=== PATIENT | male | born 1945 | race Caucasian/White ===

== ENCOUNTER → 2018-08-09 10:23 | Outpatient (CLI) | payer MEDICARE, SELFPAY ==
[2018-08-07 10:02] VITALS: BMI 31.3
[2018-08-09 12:32] LABS: AST(SGOT) 23 U/L (15-37); Alanine Aminotransfer ALT/SGPT 22 U/L (16-61); Albumin, Serum 3.8 g/dL (3.2-5.0); Alkaline Phosphatase 95 U/L (45-117); Bilirubin, Direct 0.21 mg/dL (0.00-0.30); Cholesterol 183 mg/dL (200); Globulin 3.6 g/dL (2.2-4.2); High Density Lipoprotein 58 mg/dL; Protein, Total 7.4 g/dL (6.4-8.2); Triglycerides 109 mg/dL; Very Low Density Lipoprotein 22 mg/dL (5-40)
== END ==
PROVIDERS: Family Provider Family Medicine; PCP Family Medicine; Referring Provider Internal Medicine Cardiovascular Disease; Visit Provider Internal Medicine Cardiovascular Disease
DX: I10 Essential (primary) hypertension (principal); R06.09 Other forms of dyspnea
CPT/HCPCS: 36415; 80061; 80076

== ENCOUNTER → 2018-08-22 12:51 | Outpatient (CLI) | payer MEDICARE, SELFPAY ==
[2018-08-07 10:02] VITALS: BMI 31.3
--- NOTE | 2018-08-22 12:53 | ECHOCS_ITS ---
Reason For Study: PHTN Procedure This was a 2D Doppler, Color Flow transthoracic echocardiogram. The study was technically difficult. Contrast injection was performed. Exam performed in department. Left Ventricle Normal size and thickness. The estimated ejection fraction is 65 %. Stage 1 diastolic dysfunction. No regional wall motion abnormalities noted. Right Ventricle Moderately dilated right ventricle. Mild to moderate global right ventricular systolic dysfunction. Atria The left atrium is moderately enlarged. The right atrium is moderately enlarged. Normal atrial septum. Mitral Valve The mitral valve is structurally normal. No prolapse or stenosis seen. Trivial mitral valve insufficiency. Tricuspid Valve Normal tricuspid valve. Mild to moderate (1-2+) tricuspid valve insufficiency. Right ventricular systolic pressure estimated to be 48 mmHg. Moderate pulmonary hypertension. Aortic Valve Trisinus/trileaflet aortic valve. Mild diffuse aortic valve thickening. Mild (1+) aortic valve insufficiency. Pulmonic Valve Normal pulmonic valve. Mild (1+) pulmonic valve insufficiency. Great Vessels Normal aortic root. Normal arch. Normal inferior vena cava. Inferior vena cava collapse with sniff. Pericardium/Pleural No pericardial effusion. Medication 22 gauge I.V. with prn adaptor inserted into right arm. Diluted definity 8.ml given slow IV push to enhance endocardial definition. MMode/2D Measurements & Calculations LVIDd: 5.4 cm IVSd: 1.2 cm Ao root diam: 3.6 cm LVIDs: 3.3 cm LVPWd: 1.1 cm RVDd: 4.6 cm FS: 38.9 % LAV(MOD-bp): 78.0 ml LA A4 area: 22.5 cm2 LA dimension(2D): 4.1 cm LAV(MOD-bp) Indexed: 38.1 ml/m2 LAV(MOD-sp2): 84.4 ml LAV(MOD-sp4): 63.4 ml RA A4 area: 25.2 cm2 Time Measurements MV dec time: 0.30 sec Doppler Measurements & Calculations MV E max jose: 58.6 cm/sec Lat Peak E' Jose: 7.9 cm/sec Med Peak E' Jose: 4.3 cm/sec MV A max jose: 71.6 cm/sec E/E' lat: 7.4 E/E' med: 13.8 MV E/A: 0.82 Ao V2 max: 130.6 cm/sec AI max jose: 393.6 cm/sec LV V1 max: 85.9 cm/sec Ao max P.8 mmHg AI max P.0 mmHg LV V1 max P.0 mmHg AI dec slope: 200.0 cm/sec2 AI P1/2t: 576.6 msec PA V2 max: 92.2 cm/sec PI end-d jose: 123.5 cm/sec TR max jose: 319.7 cm/sec TR max P.9 mmHg Interpretation Summary The estimated ejection fraction is 65 %. Stage 1 diastolic dysfunction. Moderately dilated right ventricle. Mild to moderate global right ventricular systolic dysfunction. The left atrium is moderately enlarged. The right atrium is moderately enlarged. Trivial mitral valve insufficiency. Mild to moderate (1-2+) tricuspid valve insufficiency. Right ventricular systolic pressure estimated to be 48 mmHg. Moderate pulmonary hypertension. Mild (1+) aortic valve insufficiency. Compared to echo report dated 06/08/2017, LV function has remained the same, but RVSP has increased from 39 to 46 mm Hg. The study was technically difficult. Contrast injection was performed. Ordering Physician: Dave Cook Referring Physician: LUIS ARMANDO COELLO Performed By: Jimena Robertson, WENDY, RVT
== END ==
PROVIDERS: Family Provider Family Medicine; PCP Family Medicine; Referring Provider Internal Medicine Cardiovascular Disease; Visit Provider Internal Medicine Cardiovascular Disease
DX: I48.0 Paroxysmal atrial fibrillation (principal); I48.1 Persistent atrial fibrillation; I27.29 Other secondary pulmonary hypertension; I10 Essential (primary) hypertension; R06.00 Dyspnea, unspecified
CPT/HCPCS: 93306; Q9957; A4216; C8929

== ENCOUNTER → 2018-08-29 12:23 | Outpatient (CLI) | payer MEDICARE, SELFPAY ==
[2018-08-07 10:02] VITALS: BMI 31.3
--- NOTE | 2018-08-29 12:24 | STEWCON_ITS ---
Reason For Study: Dyspnea, Atrial Fibrillation Stress Results Protocol: Rubin Protocol/Switched To Dobutamine Maximum Predicted HR: 146 bpm Target HR: 124 bpm % Maximum Predicted HR: 84 % Heart Stage Duration Rate BP Comment (mm:ss) (bpm) Baseline 63 130/78No Chest Pain; Diluted Definity 8 ML Given Rubin Protocol Stage I 3:00 85 168/70No Chest Pain Rubin Protocol No Chest Pain; Fatigued, Leg Pain, Unable to Keep Up With Stage II 1:07 91 / Treadmill; Changed to Dobutamine DSE 10 MCG 3:17 60 125/57No Chest Pain DSE 20 MCG 3:00 77 131/53No Chest Pain DSE 30 MCG 3:00 92 110/56No Chest Pain DSE 40 MCG 1:51 123 114/50No Chest Pain; Atropine 0.25 MG IVP Recovery 75 122/68No Chest Pain Stress Duration: 15:15 mm:ss Maximum Stress HR: 123 bpm METS: 1 Baseline Echocardiogram Findings The estimated ejection fraction is 65 %. Stress Echo Wall motion Data Resting WM Intermediate WM Stress WM Resting Wall Motion Wall Motion Stress No regional wall motion No regional wall motion abnormalities noted. abnormalities noted. EKG Data The baseline ECG displays normal sinus rhythm. The patient was titrated from 10 mcg to a maximun of 30 mcg of dobutamine during the stress. The maximum heart rate attained was 146 beats per minute. This was 100% of maximum predicted heart rate. During dobutamine infusion, there were no ST or T wave changes noted to suggest ischemia. No clinical angina was noted. Interpretation Summary The estimated ejection fraction is 65 %. Normal, adequate, dobutamine echocardiogram. Negative for ischemia by EKG and echocardiographic criteria. Frequent PACs and rare PVCs during infusion which is a nonspecific finding. No anginal symptoms noted. Test terminated due to the attainment of target heart rate. Final LVEF is 75%. Decreased sensitivity due to poor echo windows requiring Definity enhancing agent. Patient initially was attempted on a treadmill but unfortunately was unable to achieve target heart rate, and was switched to dobutamine. No complications. The study was technically difficult. Contrast injection was performed. Ordering Physician: Dave Cook Referring Physician: Masoud Rosa Performed By: Delores Nair RDCS
== END ==
PROVIDERS: Family Provider Family Medicine; PCP Family Medicine; Referring Provider Internal Medicine Cardiovascular Disease; Visit Provider Internal Medicine Cardiovascular Disease
DX: R06.00 Dyspnea, unspecified (principal); R06.02 Shortness of breath
CPT/HCPCS: 93017; 93350; J7040; Q9957; A4216; C8928

== ENCOUNTER 2019-01-22 05:10 | Inpatient (IN) | payer MEDICARE, SELFPAY ==
[2018-08-07 10:02] VITALS: BMI 31.3
[2019-01-22 05:11] VITALS: BP 172/84; PULSE 56; RESP 16; TEMP 36.8; O2SAT 96; BMI 29.4
--- NOTE | 2019-01-22 05:20 | ED.DCSUM_ITS ---
History of Present Illness Chief Complaint: Complaint Informant: Patient Narrative: Patient stated that he is having urinary retention. His last urination was approximately 6 hours ago. He has to go but cannot. He thinks he has a blood clot in his urethra. He has had some very mild hematuria per patient over the last couple days. He called his urologist Dr. Prather who stated that he can see him in the office. At that time he was not having obstruction. Patient stated his symptoms currently are moderate due to the obstruction discomfort. Denies any history of UTIs. He does have a history of prostate cancer. They recently came back. They found this on his PSA. 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 (3) Cardiomyopathy in other diseases classified elsewhere Status: Chronic (4) Hypertension Status: Chronic (5) Other secondary pulmonary hypertension Status: Chronic (6) Paroxysmal atrial fibrillation Status: Chronic Comment: S/P cardioversion on 04/21/2016 (7) Persistent atrial fibrillation Status: Chronic Past Medical History - Allergies and Home Meds Allergies/Adverse Reactions: Allergies No Known Allergies Allergy (Verified 01/22/19 05:16) Primary Care Physician: Masoud Rosa MD [Primary Care Provider] - Prior records reviewed: Yes Past Medical History: - - Reviewed, see problem list Surgical History: - - meatl extraction from eye, hernia repair, colonoscopy w/polypectomy, cataract exraction with implant left eye, and teeth extraction, prostate radiation treatment. Lives: With Family Smoking Status: Never smoker Alcohol: None Drugs: None Review of Systems General: Denies: Chills, Fever, Sweats Eyes: Denies: Visual changes - bilaterally, Diplopia ENT: Denies: Rhinorrhea, Sore throat Cardiovascular: Denies: Chest pain, Palpitations Respiratory: Denies: Dyspnea, Cough, Dyspnea on exertion Gastrointestinal: Reports: Abdominal pain. Denies: Nausea, Vomiting, Diarrhea, Melena, Hematochezia Genitourinary: Reports: Hematuria. Denies: Dysuria, Frequency Musculoskeletal: Denies: Back pain, Extremity Pain Skin: Denies: Rash, Wounds Neurological: Denies: Headache, Weakness, Numbness Physical Exam Vital Signs/Narrative: Vital Signs Temp Pulse Resp BP Pulse Ox 01/22/19 05:11 98.2 F 56 L 16 172/84 H 96 General: Well nourished, Well developed, No Acute Distress Head: Normocephalic, Atraumatic Eyes: Perrl, EOMI ENT: Moist mucous membranes, No rhinorrhea Neck: Supple, Nontender Cardiovascular: Regular rate, Regular rhythm, No murmurs Respiratory: No distress, CTA bilaterally, Chest nontender Abdomen: Soft, Nontender, Nondistended, Normal bowel sounds Back: Nontender, Normal Inspection Extremities: Nontender, No edema Skin: Normal color, No rash Neurological: Alert, Oriented x3, Cranial nerves II-XII grossly intact, Normal Strength, Normal Sensation Psychological: Normal affect, Normal Mood Diagnostic/Tx/Re-eval - Medical Decision Making She is on aspirin and Xarelto. This is likely contributing to his hematuria. He has had this remotely. Somers catheter was placed. It was irrigated copiously. There were clots and blood. Patient continues to have bright red blood. He is asymptomatic currently now that the catheter was placed. Lab work shows no significant abnormalities. Hemoglobin normal. Urinalysis shows no infection. I suspect the patient is having bleeding from his bladder. He has a coagulopathy. We will hold his blood thinners. Discussed with hospitalist. The patient will need to be admitted and have a urology consult ED Disposition - Plan for ED Patient: Diagnosis: Bladder outflow obstruction, Hematuria Referrals: Masoud Rosa MD [Primary Care Provider] -
[2019-01-22 05:43] LABS: Bacteria 0 SEEN /hpf (None Seen); Mucous, Urine 0 SEEN /hpf (<or=2+); Squamous Epithelial Cells - UA 0 SEEN /hpf (0-5)
[2019-01-22 05:52] LABS: Color, Urine Red (Yellow); Glucose, Dipstick Normal (Normal); Ketone-Dipstick Negative (Negative); Leukocyte Esterase-Dipstick 25 /ul (Negative); Nitrite-Dipstick Negative (Negative); Occult Blood-Urine 250 /ul (Negative); Protein-Dipstick 500 mg/dl (Negative); Urine Bilirubin Dipstick Negative (Negative); Urine Clarity Turbid (Clear); Urine Urobilinogen 1 mg/dl (Normal); Urine pH 6.5 (5.0 - 8.0)
[2019-01-22 05:54] LABS: Red Blood Cells-Urine > 100 SEEN /hpf (0-5); White Blood Cells 10-25 SEEN /hpf (0-5)
[2019-01-22 06:01] LABS: Absolute Lymphocyte Count 0.88 X10^3/uL (0.83-4.51); Absolute Neutrophil Count 3.1 X10^3/uL (2.0-7.7); Basophil# 0.01 X10^3/uL; Basophil% 0.2 % (0-1); Eosinophil# 0.17 X10^3/uL; Eosinophils% 3.6 % (0-5); Hematocrit 40.5 % (40-54); Hemoglobin 14.1 g/dL (13.0-16.5); Lymphocyte # 0.88 X10^3/ul (4.0); Lymphocyte % 18.8 % (19-41); Mean Corp Hgb Conc 34.8 g/dL (32-36); Mean Corpuscular Hgb 30.5 pg (27.0-32.0); Mean Corpuscular Volume 87.5 fL (80-94); Mean Platelet Vol. 10.9 fl (6.2-12.0); Monocyte% 10.7 % (0-10); NRBC Flagged by Analyzer 0 % (0-5); Neutrophil # 3.09 X10^3/uL (2.7-7.7); Neutrophil % 66.3 % (47-70); Platelet Count 155 K/mm3 (150-450); RBC Distribution Width CV 13.6 % (11.6-14.6); RBC Distribution Width SD 43.4 fl (35.1-43.9); Red Blood Count 4.63 M/mm3 (4.6-6.2); White Blood Count 4.7 K/mm3 (4.4-11.0)
[2019-01-22 06:16] LABS: Anion Gap 8 (5-15); BUN 23 mg/dL (7-18); Chloride 104 mmol/L (98-107); Creatinine, Serum 1.35 mg/dL (0.70-1.30); EST Glomerular Filtration Rate 55 mL/min (>60); Est Glom Filt Rate - Afr Amer 66 mL/min (>60); Estimated Creatinine Clearance 46.44 ml/min; Glucose 100 mg/dL (74-106); Potassium 3.8 mmol/L (3.5-5.1); Sodium Level 141 mmol/L (136-145)
[2019-01-22 06:37] VITALS: BP 164/70; PULSE 84; RESP 18; TEMP 36.3; O2SAT 98
--- NOTE | 2019-01-22 07:07 | NURSING ---
DR LOCKE FOR DR CORBIN
--- NOTE | 2019-01-22 07:10 | NURSING ---
DR SHABAZZ PAGED DR GUERRERO CALLED BACK FOR DR CORBIN
[2019-01-22 07:18] VITALS: RESP 18
--- NOTE | 2019-01-22 07:24 | NURSING ---
DR SHABAZZ FOR DR CORBIN
--- NOTE | 2019-01-22 07:28 | NURSING ---
323 HARIKA HEMATURIA, URINARY RETENTION, COAGULATHY
--- NOTE | 2019-01-22 07:36 | NURSING ---
DR SHABAZZ IN ER
--- NOTE | 2019-01-22 07:40 | CT_ITS ---
STUDY: CT ABDOMEN AND PELVIS WITH AND WITHOUT CONTRAST REASON FOR EXAM: Male, 73 years old. Gross hematuria, history of prostate cancer RADIATION DOSAGE (If Supplied By Facility): CTDIvol = ( 20.21 ) mGy, DLP = ( 2550.39 ) mGycm TECHNIQUE: Transaxial images were obtained from the dome of the diaphragm to the symphysis pubis without oral contrast. 100 IV Isovue 300 was administered. Sagittal and coronal images were reconstructed. Individualized dose optimization techniques were used for this CT. COMPARISON: 07/13/2017 FINDINGS: Lung bases show underlying emphysema, no suspicious mass, nodule, or superimposed process.. The visualized portions of the heart are within normal limits. Normal liver. Normal gallbladder and extrahepatic biliary system. Normal spleen. Normal pancreas. Normal bilateral adrenal glands. No obstructive uropathy, there is a stable 3 cm right renal cyst. There is a small hiatal hernia. Normal small intestine. Retained stool noted throughout the colon, scattered colonic diverticulosis without CT evidence of acute diverticulitis. There is non-visualization of the appendix. Normal abdominal aorta. Normal inferior vena cava. Normal retroperitoneum. The bladder contains a Somers catheter, there is asymmetric wall thickening in the right bladder wall measuring approximately 2.23 x 1.16 cm, suspicious for neoplastic process. Additionally, there is hyperdense fluid within the dependent bladder suggesting hemorrhage. Further evaluation with cystoscopy is recommended. The asymmetric bladder wall thickening is best seen on axial image 98, and coronal recon image 55. There is a right-sided inguinal hernia containing adipose tissue. There are diffuse degenerative changes of the visualized lumbar spine, and pelvis with stable grade 1 spondylolisthesis at L5/S1. CT/CT Abd/Pelvis W/WO Contrast IMPRESSION: There is asymmetric thickening of the right bladder wall measuring 2.23 x 1.16 cm suspicious for neoplastic process. This has worsened since the previous study and is suspicious for neoplastic process. Cystoscopy recommended for further evaluation Hyperdense fluid noted within the dependent bladder suspicious for hemorrhage Small hiatal hernia Colonic diverticulosis. Stable 3 cm right renal cyst Degenerative bony changes Electronically Signed: Jens Jansen MD at 9:11 EDT , Service support ,
--- NOTE | 2019-01-22 07:46 | HP.PCM_ITS ---
Problem List (1) Hematuria Status: Acute Qualifiers: Hematuria type: gross Qualified Code(s): R31.0 - Gross hematuria History and Physical Date of Admission: 01/22/19 73-year-old male who underwent radiation therapy and hormone ablation therapy several years ago for prostate cancer. He now comes back because his PSA was elevated at 63 and we did a PET scan which demonstrated positive lymph node involvement with metastatic disease. We have started the patient on hormone deprivation therapy with Eligard and casodex and no add Xtandi, PSA has been very low. is PSA is now come back down a 3.8 and is doing fairly well. We talked about keeping bone strong with calcium and and vitamin D [id number] Currently presented to ER with gross hematuria with large clots on blood thinner which he stopped yesturday, no SOB, no flank pain no back pain source of bleeding is unclear. Will admit for heavy bleeding, Currently with 18 fr chavarria with clots, nurses to manually irrigate, NO CBI. 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 Tobacco Use Assessment Completed: Smoking cessation counseling was provided. Does not use smokeless tobacco. Does not drink anymore. Does not use drugs. Drinks 1 caffeinated drink per day. Has not had a blood transfusion. REVIEW OF SYSTEMS: Constitutional: Patient denies fever, chills, weight loss, and weight gain. Genitourinary: Patient denies frequent urination, urinary retention, get up at night to void, leakage of urine, painful urination, blood in the urine, frequent uti's, history of stones, difficulty starting stream, weak stream/scanty, and bedwetting. VITAL SIGNS: Weight 200 lb / 90.72 kg Height 68 in / 172.72 cm BP 132/74 mmHg BMI 30.4 kg/m? - MULTI-SYSTEM PHYSICAL EXAMINATION: Constitutional: Well-nourished. No physical deformities. Normally developed. Good grooming. Neck: Neck symmetrical, not swollen. Normal tracheal position. Respiratory: No labored breathing, no use of accessory muscles. Cardiovascular: Normal temperature, normal extremity pulses, no swelling, no varicosities. Lymphatic: No enlargement of neck, axillae, groin. Skin: No paleness, no jaundice, no cyanosis. No lesion, no ulcer, no rash. Neurologic / Psychiatric: Oriented to time, oriented to place, oriented to person. No depression, no anxiety, no agitation. Gastrointestinal: No mass, no tenderness, no rigidity, non obese abdomen. Eyes: Normal conjunctivae. Normal eyelids. Ears, Nose, Mouth, and Throat: Left ear no scars, no lesions, no masses. Right ear no scars, no lesions, no masses. Nose no scars, no lesions, no masses. Normal hearing. Normal lips. Musculoskeletal: Normal gait and station of head and neck. : Chavarria in place with gross clots. 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 Gross hematuia. PLAN: Admit to the hospital because of gross hematuria he has advanced prostate cancer with recurrent disease currently on Xtandi and hormone deprivation therapy he will undergo a CT scan with and without contrast to evaluate the source of the bleeding. Nursing staff will irrigate the catheter manually with normal saline to keep the clots from forming. Currently no CBI since his clots and not cleared out. We will see what the CAT scan shows probably plan to do a cystoscopy or intervention once we find out the source of the bleeding plan to do this probably Tuesday.
[2019-01-22 07:50] LABS: Bedside Glucose 105 mg/dL (70-110)
[2019-01-22 08:42] VITALS: BMI 28.8
[2019-01-22 09:07] VITALS: BP 130/66; PULSE 49; RESP 18; TEMP 36.7; O2SAT 97
[2019-01-22 09:17] VITALS: BMI 28.8
[2019-01-22] MEDS: 0.9% Normal Saline 1,000 ML 125 ML IV ×2 (09:34→17:42)
[2019-01-22] MEDS: 0.9% NaCl Peripheral Flush Adult/Peds IV (09:36)
[2019-01-22] MEDS: Atenolol 25 MG Tablet PO (10:26)
[2019-01-22] MEDS: Furosemide 40 MG Tablet PO (10:26)
[2019-01-22] MEDS: dilTIAZem CD 120 MG Capsule PO (10:26)
--- NOTE | 2019-01-22 12:21 | CASEMGMT ---
RN CM Assessment Introduced role of RN CM to patient and patient Snow at bedside.? Patient is alert, oriented and able?to participate in RN CM Assessment. ?Care providers, pharmacy, and demographics verified. Presentation: Urinary retention, Mild Hematuria. H/o UTI & Prostate CA on Oral Chemo, On Xarelto & ASA for Afib. Admit Dx: Gross Hematuria with clots, Bleeding Re-Admit: No Barriers/Issues: None PCP: Masoud Rosa Specialists: Cardio- Dr Cook, Uro- Dr Prather Preferred Pharmacy: [facility] Insurance: [employer] [facility] PPO Rx Benefit:?Yes ?LNOK: Snow Carlson LW/HPOA: No, Declines offered information Living Arrangements:?Lives with in a SS home, 2 steps to enter home. ADL?s: Independent with ambulation and ADLs Transportation: Patient used to drive, has not been able to more recently d/t ruptured blood vessel in eye and cannot see, has been transporting since this and will upon DC DME: None HHC: None SNF: None Goal: Home, does not think will have any needs upon DC. Denies issues/concerns/questions with DC. Aware CM remains available for any emerging needs. DC PLAN: Home with no anticipated needs identified at this time. JUDY Zhong
[2019-01-22 14:25] VITALS: BP 136/87; PULSE 52; RESP 18; TEMP 36.5; O2SAT 93
[2019-01-22] MEDS: ENZALUTAMIDE 40 MG CAPSULE 160 MG PO (16:28)
[2019-01-22] MEDS: BICALUTAMIDE 50 MG TABLET PO (16:35)
[2019-01-22] MEDS: FLUOROMETHOLONE 5 ML DROPS.SUSP EACH EYE ×2 (19:15→21:14)
[2019-01-22 21:19] VITALS: BP 134/69; PULSE 55; RESP 18; TEMP 37.2; O2SAT 96
[2019-01-23] MEDS: 0.9% Normal Saline 1,000 ML 125 ML IV ×2 (00:30→08:39)
[2019-01-23 02:03] VITALS: BP 127/64; PULSE 56; RESP 16; TEMP 37.1; O2SAT 95
[2019-01-23 06:03] LABS: Absolute Lymphocyte Count 0.75 X10^3/uL (0.83-4.51); Absolute Neutrophil Count 7.2 X10^3/uL (2.0-7.7); Basophil# 0.01 X10^3/uL; Basophil% 0.1 % (0-1); Eosinophil# 0.07 X10^3/uL; Eosinophils% 0.8 % (0-5); Hematocrit 38.1 % (40-54); Lymphocyte # 0.75 X10^3/ul (4.0); Lymphocyte % 8.5 % (19-41); Mean Corp Hgb Conc 34.1 g/dL (32-36); Mean Corpuscular Hgb 30.4 pg (27.0-32.0); Mean Platelet Vol. 10.8 fl (6.2-12.0); NRBC Flagged by Analyzer 0 % (0-5); Neutrophil % 81.1 % (47-70); Platelet Count 158 K/mm3 (150-450); RBC Distribution Width CV 13.5 % (11.6-14.6); RBC Distribution Width SD 44.2 fl (35.1-43.9); Red Blood Count 4.28 M/mm3 (4.6-6.2); White Blood Count 8.9 K/mm3 (4.4-11.0)
[2019-01-23 06:18] LABS: Anion Gap 7 (5-15); BUN 15 mg/dL (7-18); BUN/Creat Ratio 12.9 RATIO (10-20); Calcium,Total 8.4 mg/dL (8.5-10.1); Chloride 106 mmol/L (98-107); Creatinine, Serum 1.16 mg/dL (0.70-1.30); EST Glomerular Filtration Rate 65 mL/min (>60); Est Glom Filt Rate - Afr Amer 79 mL/min (>60); Estimated Creatinine Clearance 54.05 ml/min; Glucose 113 mg/dL (74-106); Potassium 3.7 mmol/L (3.5-5.1); Sodium Level 141 mmol/L (136-145)
--- NOTE | 2019-01-23 07:23 | EKG12_ITS ---
Test Reason : PRE OP Blood Pressure : / mmHG Vent. Rate : 058 BPM Atrial Rate : 058 BPM P-R Int : 158 ms QRS Dur : 090 ms QT Int : 450 ms P-R-T Axes : 036 -12 036 degrees QTc Int : 441 ms Sinus bradycardia Nonspecific ST abnormality Abnormal ECG When compared with ECG of 21-APR-2016 13:52, Premature atrial complexes are no longer Present Confirmed by KOREY HAYWARD, HERMELINDA ([id number]), video editor TAYLOR RENO ([id number]) on 01/26/2019 9:54:16 AM Referred By: Robert Prather Confirmed By:ELA NAIR MD
--- NOTE | 2019-01-23 07:36 | PN_ITS ---
Patient Problems: Active and Suspected Problems (Last Updated 08/07/18 @ 10:09 by Pennie Loving) Bladder outflow obstruction (Acute) Hematuria (Acute) Subjective: CT scan demonstrates the patient has a bladder mass with bleeding a lot of blood clots within the bladder today discussed the findings and CAT scan with the patient and his family plan is to take in the surgery tomorrow to remove the blood clots and resect the tumor that seen on CAT scans possible there are more tumors - Physical Exam General: Alert, Oriented x3, Cooperative HEENT: Atraumatic, PERRLA, EOMI, Normocephalic Neck: Supple, No JVD, Negative Carotid Bruits Lungs: Clear to auscultation, Normal air movement Cardiovascular: Regular rate, No murmurs Abdomen: Bowel Sounds Present, Soft, Non Tender Extremities: No edema, Capillary Refill Less than 3 Seconds Skin: No rashes, No breakdown Musculoskeletal: No Tenderness to Palpation of Joints or Extremities Neurological: Cranial nerves II-XII grossly intact Psych/Mental Status: Normal Affect, Appropriate Vital Signs Temp Pulse Resp BP Pulse Ox 98.7 F 56 L 16 127/64 H 95 01/23/19 02:03 01/23/19 02:03 01/23/19 02:03 01/23/19 02:03 01/23/19 02:03 Oxygen Delivery Method Room Air Weight: 86.296 kg Body Mass Index (BMI) 28.8 Finger Stick Blood Glucose 105 Intake and Output for Last 24 Hours 01/21/19 01/22/19 01/23/19 23:59 23:59 23:59 Intake Total 2178 / 4229 3381 / 3381 Output Total 3700 / 4600 1350 / 1350 Balance -1522 / -371 2030 / 203 Laboratory Tests Past 24 Hrs 01/23/19 01/23/19 05:35 05:35 WBC 8.9 RBC 4.28 L Hgb 13.0 Hct 38.1 L MCV 89.0 MCH 30.4 MCHC 34.1 RDW Std Deviation 44.2 H RDW Coeff of Manuela 13.5 Plt Count 158 MPV 10.8 Immature Gran % (Auto) 0.500 Neut % (Auto) 81.1 H Lymph % (Auto) 8.5 L [place] % (Auto) 9.0 Eos % (Auto) 0.8 Baso % (Auto) 0.1 Absolute Neuts (auto) 7.2 Absolute Lymphs (auto) 0.75 L Absolute Nucleated RBC 0.00 Nucleated RBC % 0 Sodium 141 Potassium 3.7 Chloride 106 Carbon Dioxide 28.0 Anion Gap 7 BUN 15 Creatinine 1.16 Estim Creat Clear Calc 54.05 Est GFR (MDRD) Af Amer 79 Est GFR (MDRD) Non-Af 65 BUN/Creatinine Ratio 12.9 Glucose 113 H Calcium 8.4 L POC Glucose 01/22/19 07:48 POC Glucose 105 Medical Necessity - Tobacco Use Smoking Status: Never smoker Assessment/Plan All Active Problems (Last Updated 08/07/18 @ 10:09 by Pennie Loving) Bladder outflow obstruction (Acute) Hematuria (Acute) Dyspnea on exertion (Acute) care home (current) use of anticoagulants (Acute) 73-year-old male with multiple medical problems presented to the hospital with bleeding from the bladder he is on blood thinner Xarelto want to hold this because of the bleeding tumor mass we will consult hospitalist to help assist with medical issues and questions with the patient's and the family. Plan to taken to surgery tomorrow for resection of these bladder mass removal of blood clots hopefully we can get him home by he will have to stay off blood thinners because of the bleeding from the tumor so he is off Xarelto I did explain to the family is a very small chance of a stroke 1 to 2% being off of Xarelto because of his history of atrial fibrillation will consult hospitalist.
--- NOTE | 2019-01-23 08:19 | PCM.PN.HOSP ---
Patient Problems: Active and Suspected Problems (Last Updated 08/07/18 @ 10:09 by Pennie Loving) Bladder outflow obstruction (Acute) Hematuria (Acute) Subjective: Consult for medical management: 73-year-old male with past medical history of metastatic prostate cancer, status post radiation and hormone ablation therapy, hypertension, paroxysmal atrial fibrillation, on Xarelto admitted to the ED on 01/22/19 with gross hematuria with large clots. We have been consulted for medical management. He is going for bladder mass resection tomorrow by urology. At the time of being seen patient denied any dizziness or palpitations or chest pain or shortness of breath. He has no recent cardiac related hospitalization. He denied any lower abdominal pain. He has a Chavarria catheter that has raj blood. CT scan of the abdomen and pelvis showed asymmetric wall thickening of the right, approximately 2.2 x 1.16 suspicious for neoplastic process. His last stress echo on 08/29/18 showed an EF of 65%, it was negative for ischemia by EKG and echocardiographic criteria. 2D echo done on showed EF 65%, stage I diastolic dysfunction, moderately dilated right ventricular, mild to moderate global right ventricular systolic function, left atrium was enlarged, right atrium moderately enlarged, moderate tricuspid valve insufficiency, moderate pulmonary hypertension. Vitals/I&O's: Vital Signs Temp Pulse Resp BP Pulse Ox 98.7 F 56 L 16 127/64 H 95 01/23/19 02:03 01/23/19 02:03 01/23/19 02:03 01/23/19 02:03 01/23/19 02:03 Oxygen Delivery Method Room Air Weight: 86.296 kg Body Mass Index (BMI) 28.8 Finger Stick Blood Glucose 105 Intake and Output for Last 24 Hours 01/21/19 01/22/19 01/23/19 23:59 23:59 23:59 Intake Total 2178 / 4229 3381 / 3381 Output Total 3700 / 4600 1350 / 1350 Balance -1522 / -371 2030 General: Alert, Oriented x3, Cooperative, No apparent distress HEENT: Atraumatic, PERRLA, EOMI, Normocephalic Oral: Moist Mucosa Neck: Supple Lungs: Clear to auscultation, Normal air movement Cardiovascular: Regular rate, Regular Rhythm, Normal S1, Normal S2, Murmur - 3/6 systolic murmur best along the left lower sternal border Abdomen: Bowel Sounds Present, Soft, Non Tender, Non-Distended, No Hepato-splenomegaly, - - Fully catheter in situ, gross hematuria Extremities: No edema Skin: No rashes, No breakdown Musculoskeletal: No Tenderness to Palpation of Joints or Extremities Lymphatic: No Cervical, Supraclavicular, or Inguinal Adenopathy Neurological: Cranial nerves II-XII grossly intact Psych/Mental Status: Normal Affect, Appropriate Laboratory Results 01/23/19 05:35: WBC 8.9, RBC 4.28 L, Hgb 13.0, Hct 38.1 L, MCV 89.0, MCH 30.4, MCHC 34.1, RDW Std Deviation 44.2 H, RDW Coeff of Manuela 13.5, Plt Count 158, MPV 10.8, Immature Gran % (Auto) 0.500, Neut % (Auto) 81.1 H, Lymph % (Auto) 8.5 L, [place] % (Auto) 9.0, Eos % (Auto) 0.8, Baso % (Auto) 0.1, Absolute Neuts (auto) 7.2, Absolute Lymphs (auto) 0.75 L, Absolute Nucleated RBC 0.00, Nucleated RBC % 0 01/23/19 05:35: Sodium 141, Potassium 3.7, Chloride 106, Carbon Dioxide 28.0, Anion Gap 7, BUN 15, Creatinine 1.16, Estim Creat Clear Calc 54.05, Est GFR (MDRD) Af Amer 79, Est GFR (MDRD) Non-Af 65, BUN/Creatinine Ratio 12.9, Glucose 113 H, Calcium 8.4 L Current Medications Acetaminophen (Tylenol) 650 mg PO Q6H PRN PRN PRN Reason: Mild Pain (1-3)/Temp > 100.7 F Al Hydroxide/Mg Hydroxide (Mylanta Ii) 30 ml PO Q6H PRN PRN PRN Reason: Gastric Burning Atenolol (Tenormin (Beta Dorothy)) 25 mg PO DAILY [facility] Last Admin: 01/22/19 10:26 Dose: 25 mg Documented by: Bicalutamide (Bicalutamide) 50 mg PO DAILY [facility] Last Admin: 01/22/19 16:35 Dose: 50 mg Documented by: Diltiazem HCl (Cardizem Cd) 120 mg PO DAILY [facility] Last Admin: 01/22/19 10:26 Dose: 120 mg Documented by: Docusate Sodium (Colace) 100 mg PO BID PRN PRN PRN Reason: Constipation Fluorometholone (Fluorometholone) 0 ml EACH EYE 4X/DAY [facility] Last Admin: 01/22/19 21:14 Dose: 5 ml Documented by: Furosemide (Lasix) 40 mg PO DAILY [facility] Last Admin: 01/22/19 10:26 Dose: 40 mg Documented by: Sodium Chloride () 1,000 mls @ 125 mls/hr IV .Q8H [facility] Last Admin: 01/23/19 00:30 Dose: 125 mls/hr Documented by: Ibuprofen (Motrin) 400 mg PO Q4H PRN PRN PRN Reason: Mild Pain (1-3)/Temp > 100.7 F Nutritional Formula (Lactose Free) (Ensure Enlive) 120 ml PO 4X/DAY [facility] Last Admin: 01/22/19 21:13 Dose: 120 ml Documented by: Ondansetron HCl (Zofran) 4 mg IV Q8H PRN PRN PRN Reason: NAUSEA/VOMITING Oxycodone HCl (Oxyir) 10 mg PO Q4H PRN PRN PRN Reason: Moderate Pain (4-6/10) Potassium Chloride (K-Dur) 20 meq PO DAILY [facility] Last Admin: 01/22/19 10:26 Dose: 20 meq Documented by: Sodium Chloride () 10 - 40 ml IV UD PRN PRN Reason: SALINE FLUSH Last Admin: 01/22/19 09:36 Dose: 10 ml Documented by: Zolpidem Tartrate (Ambien (Generic)) 5 mg PO QHS PRN PRN PRN Reason: INSOMNIA Medical Necessity - Tobacco Use Smoking Status: Never smoker Assessment/Plan All Active Problems (Last Updated 08/07/18 @ 10:09 by Pennie Loving) Bladder outflow obstruction (Acute) Hematuria (Acute) Dyspnea on exertion (Acute) 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 Gross hematuria secondary to bladder mass, h/o prostate CA, urology plans on cystoscopy with bladder mass resection, s/p chavarria catheter 2. Paroxysmal atrial fibrillation, in NSR, on atenolol and cardizem, off Xarelto, will continue off Xarelto as risk of bleeding outweighs risk of stroke 3. Hypertension, controlled, continue on atenolol and cardizem, continue to monitor 4. CKD stage 3, at his baseline 5. DVT PPx- SCDs Thank you for the consult, will follow patient with you Code Visit Inpatient E&M: 66629 Subs Hosp L2
[2019-01-23 08:26] VITALS: BP 132/68; PULSE 55; RESP 18; TEMP 36.8; O2SAT 93
[2019-01-23] MEDS: ENZALUTAMIDE 40 MG CAPSULE 160 MG PO (10:03)
[2019-01-23] MEDS: FLUOROMETHOLONE 5 ML DROPS.SUSP EACH EYE ×4 (10:03→22:35)
[2019-01-23] MEDS: BICALUTAMIDE 50 MG TABLET PO (10:04)
[2019-01-23] MEDS: Atenolol 25 MG Tablet PO (10:07)
[2019-01-23] MEDS: Furosemide 40 MG Tablet PO (10:07)
[2019-01-23] MEDS: dilTIAZem CD 120 MG Capsule PO (10:07)
[2019-01-23 13:22] VITALS: BP 120/55; PULSE 54; RESP 18; TEMP 36.7; O2SAT 95
[2019-01-23 20:09] VITALS: BP 112/53; PULSE 56; RESP 16; TEMP 37.1; O2SAT 94
[2019-01-23] MEDS: 0.9% Normal Saline 1,000 ML 75 ML IV (20:12)
[2019-01-24] VITALS (11 sets, daily range): BP systolic 111–156; BP diastolic 60–92; PULSE 50–65; RESP 16–18; TEMP 36.4–37.4; O2SAT 92–98; BMI 28.8
--- NOTE | 2019-01-24 07:04 | PCM.PROGNOTE ---
Patient Problems: Active and Suspected Problems (Last Updated 08/07/18 @ 10:09 by Pennie Loving) Bladder outflow obstruction (Acute) Hematuria (Acute) Subjective: 73-year-old male admitted for gross hematuria bleeding continues. Today we plan to taken to surgery and CAT scans found to have a bladder mass most likely the source of the bleeding. Otherwise his clinic clinically stable - Physical Exam General: Alert, Oriented x3, Cooperative HEENT: Atraumatic, PERRLA, EOMI, Normocephalic Neck: Supple, No JVD, Negative Carotid Bruits Lungs: Clear to auscultation, Normal air movement Cardiovascular: Regular rate, No murmurs Abdomen: Bowel Sounds Present, Soft, Non Tender Extremities: No edema, Capillary Refill Less than 3 Seconds Skin: No rashes, No breakdown Musculoskeletal: No Tenderness to Palpation of Joints or Extremities Neurological: Cranial nerves II-XII grossly intact Psych/Mental Status: Normal Affect, Appropriate Vital Signs Temp Pulse Resp BP Pulse Ox 98.4 F 54 L 18 137/68 H 94 01/24/19 02:18 01/24/19 02:18 01/24/19 02:18 01/24/19 02:18 01/24/19 02:18 Oxygen Delivery Method Room Air Weight: 86.296 kg Body Mass Index (BMI) 28.8 Finger Stick Blood Glucose 105 Intake and Output for Last 24 Hours 01/22/19 01/23/19 01/24/19 23:59 23:59 23:59 Intake Total 2178 / 4229 6196 / 6196 583 / 583 Output Total 3700 / 4600 4700 / 4700 450 / 450 Balance -1522 / -371 1496 / 1496 133 / 133 Medical Necessity - Tobacco Use Smoking Status: Never smoker Assessment/Plan All Active Problems (Last Updated 08/07/18 @ 10:09 by Pennie Loving) Bladder outflow obstruction (Acute) Hematuria (Acute) Dyspnea on exertion (Acute) [facility] (current) use of anticoagulants (Acute) N.p.o. for surgery for today for resection of bladder
[2019-01-24] MEDS: FLUOROMETHOLONE 5 ML DROPS.SUSP EACH EYE ×4 (08:00→21:52)
[2019-01-24] MEDS: 0.9% Normal Saline 1,000 ML 75 ML IV ×2 (08:53→19:57)
--- NOTE | 2019-01-24 09:12 | PN_ITS ---
Patient Problems: Active and Suspected Problems (Last Updated 08/07/18 @ 10:09 by Pennie Loving) Bladder outflow obstruction (Acute) Hematuria (Acute) Subjective: Patient was seen and examined. He denies dizziness, palpitations, chest pain, SOB. He is going for surgery today for bladder resection. Objective: Physical exam: Vitals/I&O's: Vital Signs Temp Pulse Resp BP Pulse Ox 97.5 F L 50 L 16 129/63 H 95 01/24/19 08:15 01/24/19 08:15 01/24/19 08:15 01/24/19 08:15 01/24/19 08:15 Oxygen Delivery Method Room Air Weight: 86.296 kg Body Mass Index (BMI) 28.8 Finger Stick Blood Glucose 105 Intake and Output for Last 24 Hours 01/22/19 01/23/19 01/24/19 23:59 23:59 23:59 Intake Total 2178 / 4229 6196 / 6196 583 / 583 Output Total 3700 / 4600 4700 / 4700 450 / 450 Balance -1522 / -371 1496 / 1496 133 / 133 General: Alert, Oriented x3, Cooperative, No apparent distress HEENT: Atraumatic, PERRLA, EOMI, Normocephalic Neck: Supple Lungs: Clear to auscultation, Normal air movement Cardiovascular: Regular rate, Regular Rhythm, Normal S1, Normal S2, No murmurs Abdomen: Bowel Sounds Present, Soft, Non Tender, Non-Distended, No Hepato- splenomegaly, - - chavarria catheter has gross hematuria Extremities: No edema Skin: No rashes Musculoskeletal: No Tenderness to Palpation of Joints or Extremities Lymphatic: No Cervical, Supraclavicular, or Inguinal Adenopathy Neurological: Cranial nerves II-XII grossly intact Psych/Mental Status: Normal Affect, Appropriate Current Medications Acetaminophen (Tylenol) 650 mg PO Q6H PRN PRN PRN Reason: Mild Pain (1-3)/Temp > 100.7 F Al Hydroxide/Mg Hydroxide (Mylanta Ii) 30 ml PO Q6H PRN PRN PRN Reason: Gastric Burning Atenolol (Tenormin (Beta Dorothy)) 25 mg PO DAILY [facility] Last Admin: 01/23/19 10:07 Dose: 25 mg Documented by: Bicalutamide (Bicalutamide) 50 mg PO DAILY [facility] Last Admin: 01/23/19 10:04 Dose: 50 mg Documented by: Diltiazem HCl (Cardizem Cd) 120 mg PO DAILY [facility] Last Admin: 01/23/19 10:07 Dose: 120 mg Documented by: Docusate Sodium (Colace) 100 mg PO BID PRN PRN PRN Reason: Constipation Fluorometholone (Fluorometholone) 0 ml EACH EYE 4X/DAY [facility] Last Admin: 01/23/19 22:35 Dose: 5 ml Documented by: Furosemide (Lasix) 40 mg PO DAILY [facility] Last Admin: 01/23/19 10:07 Dose: 40 mg Documented by: Sodium Chloride () 1,000 mls @ 75 mls/hr IV .[id number] [facility] Last Admin: 01/24/19 08:53 Dose: 75 mls/hr Documented by: Ibuprofen (Motrin) 400 mg PO Q4H PRN PRN PRN Reason: Mild Pain (1-3)/Temp > 100.7 F Nutritional Formula (Lactose Free) (Ensure Enlive) 120 ml PO 4X/DAY [facility] Last Admin: 01/24/19 07:34 Dose: Not Given Documented by: Ondansetron HCl (Zofran) 4 mg IV Q8H PRN PRN PRN Reason: NAUSEA/VOMITING Oxycodone HCl (Oxyir) 10 mg PO Q4H PRN PRN PRN Reason: Moderate Pain (4-6/10) Potassium Chloride (K-Dur) 20 meq PO DAILY [facility] Last Admin: 01/23/19 10:07 Dose: 20 meq Documented by: Sodium Chloride () 10 - 40 ml IV UD PRN PRN Reason: SALINE FLUSH Last Admin: 01/22/19 09:36 Dose: 10 ml Documented by: Zolpidem Tartrate (Ambien (Generic)) 5 mg PO QHS PRN PRN PRN Reason: INSOMNIA Medical Necessity - Tobacco Use Smoking Status: Never smoker Assessment/Plan All Active Problems (Last Updated 08/07/18 @ 10:09 by Pennie Loving) Bladder outflow obstruction (Acute) Hematuria (Acute) Dyspnea on exertion (Acute) 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 Gross hematuria secondary to bladder mass, h/o prostate CA, urology plans on cystoscopy with bladder mass resection, s/p chavarria catheter Patient is at low-moderate risk for planned procedure. No active cardiac issues. 2. Paroxysmal atrial fibrillation, in NSR, on atenolol and cardizem, off Xarelto, Continue off Xarelto as risk of bleeding outweighs risk of stroke 3. Hypertension, controlled, continue on atenolol and cardizem, continue to monitor 4. CKD stage 3, at his baseline 5. DVT PPx- SCDs Code Visit Inpatient E&M: 74498 Subs Hosp L2
[2019-01-24 09:58] LABS: Absolute Lymphocyte Count 0.94 X10^3/uL (0.83-4.51); Absolute Neutrophil Count 6.9 X10^3/uL (2.0-7.7); Basophil# 0.01 X10^3/uL; Basophil% 0.1 % (0-1); Eosinophil# 0.25 X10^3/uL; Eosinophils% 2.8 % (0-5); Hematocrit 35.3 % (40-54); Hemoglobin 12.1 g/dL (13.0-16.5); Lymphocyte # 0.94 X10^3/ul (4.0); Lymphocyte % 10.6 % (19-41); Mean Corp Hgb Conc 34.3 g/dL (32-36); Mean Corpuscular Hgb 30.9 pg (27.0-32.0); Mean Corpuscular Volume 90.3 fL (80-94); Mean Platelet Vol. 10.9 fl (6.2-12.0); Monocyte# 0.66 X10^3/uL; Monocyte% 7.5 % (0-10); NRBC Flagged by Analyzer 0 % (0-5); Neutrophil # 6.91 X10^3/uL (2.7-7.7); Neutrophil % 78.2 % (47-70); Platelet Count 157 K/mm3 (150-450); RBC Distribution Width CV 13.8 % (11.6-14.6); RBC Distribution Width SD 45.8 fl (35.1-43.9); Red Blood Count 3.91 M/mm3 (4.6-6.2); White Blood Count 8.8 K/mm3 (4.4-11.0)
[2019-01-24 10:10] LABS: Anion Gap 4 (5-15); BUN 14 mg/dL (7-18); BUN/Creat Ratio 13.6 RATIO (10-20); Calcium,Total 8.4 mg/dL (8.5-10.1); Chloride 108 mmol/L (98-107); Creatinine, Serum 1.03 mg/dL (0.70-1.30); EST Glomerular Filtration Rate 75 mL/min (>60); Est Glom Filt Rate - Afr Amer 91 mL/min (>60); Estimated Creatinine Clearance 60.87 ml/min; Glucose 92 mg/dL (74-106); Potassium 3.9 mmol/L (3.5-5.1); Sodium Level 141 mmol/L (136-145)
--- NOTE | 2019-01-24 13:56 | NURSING ---
Patient complaining of pain that he associates to previous experiences with clotting off of his urinary catheter. Upon observation urine is dark red with an apparent clot near the junction of the catheter and the external tubing. Little urine appears to be draining at this time. Catheter flushed with 40cc of sterile normal saline. Patient reported relief of some pain following flush. Urine began to backflush into the catheter tip syringe being used. The syringe was disposed off and the catheter reconnected ensuring not to contaminate the catheter connection points. Dark red urine began draining into the catheter collection bag. Diann SMITH in room at this point to prepare patient for surgery
[2019-01-24] MEDS: Atenolol 25 MG Tablet PO (14:00)
[2019-01-24] MEDS: dilTIAZem CD 120 MG Capsule PO (14:01)
--- NOTE | 2019-01-24 14:28 | NURSING ---
Pt taken from floor and report called to Lola in AC at this time
[2019-01-24] MEDS: Cefazolin 1 GM/50 ML BAG IV (15:32)
--- NOTE | 2019-01-24 16:04 | OP.PCM_ITS ---
Problem List (1) Hematuria Status: Acute Qualifiers: Hematuria type: gross Qualified Code(s): R31.0 - Gross hematuria Report of Operation Date of Procedure: 01/24/19 Pre-Operative Diagnosis: Gross hematuria bladder mass seen on CAT scan Post-Operative Diagnosis: The same, radiation cystitis Surgery/Procedure Performed:: Cystoscopy evacuation of blood clots cauterization of bleeding, transurethral resection of small bladder masses. Description of Surgical Findings:: 73-year-old male with a history of prostate cancer being treated with hormone deprivation therapy also had radiation therapy in the past he has recurrent disease currently his disease is controlled with hormone manipulation presented to the emergency room with gross hematuria is also on the blood thinner we stopped his blood thinner continue with irrigation bleeding is continued with a CAT scan demonstrated possible bladder mass multiple blood clots with the bladder so today when taken to surgery to evacuate the blood clots and cauterize bleeding resect any masses that are seen. 73-year-old male taken back to the operative room at the smooth induction of general anesthesia he is placed in dorsolithotomy position, the penis and testicles are prepped and draped in usual sterile fashion. First went into the bladder the 24 [place] noncontinuous flow resectoscope the entire length urethra is normal prostate was nonobstructive had a high riding bladder neck once inside the bladder there was a significant amount of blood clots within the bladder these were evacuated out using the [employer] evacuator once we evacuated out the blood clots that he could see a lot of redness and erythema throughout the posterior wall the bladder these were all resected and then all the tissue was sent off but appeared to be more radiation cystitis just had a lot of easy bleeding from the bladder neck on the right side and the left side all this it was cauterized Cauterized in the bladder neck area in the right left side posterior bladder and finally was able to get the bleeding to stop after cauterizing of the bleeding and bleeding vessels from radiation cystitis and resected the inflamed red masses in the back of bladder which I think is just inflammation the patient's we put a catheter the patient underwent continuous bladder irrigation and his anesthetic was reversed plan is to keep in the hospital the bleeding stops he may want to go home with a catheter and then I will have him follow-up next week today he was anesthesia is currently being reversed and I will continue bladder irrigation until the bleeding stopped but the plan is hopefully with the bleeding stops we will get him home in a few days with a catheter. Type of Anesthesia:: General Drains: 22fr [address] way
[2019-01-25 03:59] VITALS: BP 114/53; PULSE 59; RESP 18; TEMP 37.1; O2SAT 93
[2019-01-25 05:44] LABS: Absolute Lymphocyte Count 0.69 X10^3/uL (0.83-4.51); Absolute Neutrophil Count 8.8 X10^3/uL (2.0-7.7); Basophil# 0.03 X10^3/uL; Basophil% 0.3 % (0-1); Eosinophils% 1.9 % (0-5); Hematocrit 34.1 % (40-54); Hemoglobin 11.7 g/dL (13.0-16.5); Lymphocyte # 0.69 X10^3/ul (4.0); Lymphocyte % 6.4 % (19-41); Mean Corp Hgb Conc 34.3 g/dL (32-36); Mean Corpuscular Hgb 31.1 pg (27.0-32.0); Mean Corpuscular Volume 90.7 fL (80-94); Mean Platelet Vol. 10.7 fl (6.2-12.0); Monocyte# 0.92 X10^3/uL; Monocyte% 8.6 % (0-10); NRBC Flagged by Analyzer 0 % (0-5); Neutrophil # 8.81 X10^3/uL (2.7-7.7); Neutrophil % 81.9 % (47-70); Platelet Count 158 K/mm3 (150-450); RBC Distribution Width CV 13.7 % (11.6-14.6); RBC Distribution Width SD 45.7 fl (35.1-43.9); Red Blood Count 3.76 M/mm3 (4.6-6.2); White Blood Count 10.8 K/mm3 (4.4-11.0)
[2019-01-25 05:58] LABS: Anion Gap 7 (5-15); BUN 14 mg/dL (7-18); BUN/Creat Ratio 14.5 RATIO (10-20); Calcium,Total 8.3 mg/dL (8.5-10.1); Chloride 107 mmol/L (98-107); Creatinine, Serum 0.97 mg/dL (0.70-1.30); EST Glomerular Filtration Rate 81 mL/min (>60); Est Glom Filt Rate - Afr Amer 97 mL/min (>60); Estimated Creatinine Clearance 64.64 ml/min; Glucose 128 mg/dL (74-106); Potassium 3.8 mmol/L (3.5-5.1); Sodium Level 141 mmol/L (136-145)
[2019-01-25] MEDS: Acetaminophen 325 MG Tablet 650 MG PO (07:20)
--- NOTE | 2019-01-25 07:41 | PCM.PROGNOTE ---
Patient Problems: Active and Suspected Problems (Last Updated 08/07/18 @ 10:09 by Pennie Loving) Bladder outflow obstruction (Acute) Hematuria (Acute) Subjective: no more bleeding stop CBI - Physical Exam General: Alert, Oriented x3, Cooperative HEENT: Atraumatic, PERRLA, EOMI, Normocephalic Neck: Supple, No JVD, Negative Carotid Bruits Lungs: Clear to auscultation, Normal air movement Cardiovascular: Regular rate, No murmurs Abdomen: Bowel Sounds Present, Soft, Non Tender Extremities: No edema, Capillary Refill Less than 3 Seconds Skin: No rashes, No breakdown Musculoskeletal: No Tenderness to Palpation of Joints or Extremities Neurological: Cranial nerves II-XII grossly intact Psych/Mental Status: Normal Affect, Appropriate Vital Signs Temp Pulse Resp BP Pulse Ox 98.7 F 59 L 18 114/53 L 93 01/25/19 03:59 01/25/19 03:59 01/25/19 03:59 01/25/19 03:59 01/25/19 03:59 Oxygen Flow Rate (L/min) 2 Oxygen Delivery Method Room Air Weight: 86.2 kg Body Mass Index (BMI) 28.8 Finger Stick Blood Glucose 105 Intake and Output for Last 24 Hours 01/23/19 01/24/19 01/25/19 23:59 23:59 23:59 Intake Total 6196 / 6196 2185 / 2852 1156 / 1156 Output Total 4700 / 4700 5450 / 5450 Balance 1496 / 1496 -3265 / -2598 1156 / 1156 Laboratory Tests Past 24 Hrs 01/24/19 01/24/19 01/25/19 09:35 09:35 05:00 WBC 8.8 RBC 3.91 L Hgb 12.1 L Hct 35.3 L MCV 90.3 MCH 30.9 MCHC 34.3 RDW Std Deviation 45.8 H RDW Coeff of Manuela 13.8 Plt Count 157 MPV 10.9 Immature Gran % (Auto) 0.800 Neut % (Auto) 78.2 H Lymph % (Auto) 10.6 L [place] % (Auto) 7.5 Eos % (Auto) 2.8 Baso % (Auto) 0.1 Absolute Neuts (auto) 6.9 Absolute Lymphs (auto) 0.94 Absolute Nucleated RBC 0.00 Nucleated RBC % 0 Sodium 141 141 Potassium 3.9 3.8 Chloride 108 H 107 Carbon Dioxide 29.0 27.0 Anion Gap 4 L 7 BUN 14 14 Creatinine 1.03 0.97 Estim Creat Clear Calc 60.87 64.64 Est GFR (MDRD) Af Amer 91 97 Est GFR (MDRD) Non-Af 75 81 BUN/Creatinine Ratio 13.6 14.5 Glucose 92 128 H Calcium 8.4 L 8.3 L 01/25/19 05:00 WBC 10.8 RBC 3.76 L Hgb 11.7 L Hct 34.1 L MCV 90.7 MCH 31.1 MCHC 34.3 RDW Std Deviation 45.7 H RDW Coeff of Manuela 13.7 Plt Count 158 MPV 10.7 Immature Gran % (Auto) 0.900 Neut % (Auto) 81.9 H Lymph % (Auto) 6.4 L [place] % (Auto) 8.6 Eos % (Auto) 1.9 Baso % (Auto) 0.3 Absolute Neuts (auto) 8.8 H Absolute Lymphs (auto) 0.69 L Absolute Nucleated RBC 0.00 Nucleated RBC % 0 Sodium Potassium Chloride Carbon Dioxide Anion Gap BUN Creatinine Estim Creat Clear Calc Est GFR (MDRD) Af Amer Est GFR (MDRD) Non-Af BUN/Creatinine Ratio Glucose Calcium Medical Necessity - Tobacco Use Smoking Status: Never smoker Assessment/Plan All Active Problems (Last Updated 08/07/18 @ 10:09 by Pennie Loving) Bladder outflow obstruction (Acute) Hematuria (Acute) Dyspnea on exertion (Acute) 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
--- NOTE | 2019-01-25 07:42 | PCM.PN.HOSP ---
Patient Problems: Active and Suspected Problems (Last Updated 08/07/18 @ 10:09 by Pennie Loving) Bladder outflow obstruction (Acute) Hematuria (Acute) Subjective: Patient was seen and examined. He underwent cystoscopy which showed inflammation and lots of blood clots. He complains of lower abdominal pain, described as bladder spasms, denies any chest pain or dizziness or shortness of breath. Objective: Physical exam: General: Alert, Oriented x3, Cooperative, No apparent distress HEENT: Atraumatic, PERRLA, EOMI, Normocephalic Neck: Supple Lungs: Clear to auscultation, Normal air movement Cardiovascular: Regular rate, Regular Rhythm, Normal S1, Normal S2, No murmurs Abdomen: Bowel Sounds Present, Soft, Non Tender, Non-Distended, No Hepato-splenomegaly, - - chavarria catheter has yellow urine Extremities: No edema Skin: No rashes Musculoskeletal: No Tenderness to Palpation of Joints or Extremities Lymphatic: No Cervical, Supraclavicular, or Inguinal Adenopathy Neurological: Cranial nerves II-XII grossly intact Psych/Mental Status: Normal Affect, Appropriate Vitals/I&O's: Vital Signs Temp Pulse Resp BP Pulse Ox 98.7 F 59 L 18 114/53 L 93 01/25/19 03:59 01/25/19 03:59 01/25/19 03:59 01/25/19 03:59 01/25/19 03:59 Oxygen Flow Rate (L/min) 2 Oxygen Delivery Method Room Air Weight: 86.2 kg Body Mass Index (BMI) 28.8 Finger Stick Blood Glucose 105 Intake and Output for Last 24 Hours 01/23/19 01/24/19 01/25/19 23:59 23:59 23:59 Intake Total 6196 / 6196 2185 / 2852 1156 / 1156 Output Total 4700 / 4700 5450 / 5450 Balance 1496 / 1496 -3265 / -2598 1156 / 1156 Laboratory Results 01/24/19 09:35: Sodium 141, Potassium 3.9, Chloride 108 H, Carbon Dioxide 29.0, Anion Gap 4 L, BUN 14, Creatinine 1.03, Estim Creat Clear Calc 60.87, Est GFR (MDRD) Af Amer 91, Est GFR (MDRD) Non-Af 75, BUN/Creatinine Ratio 13.6, Glucose 92, Calcium 8.4 L 01/24/19 09:35: WBC 8.8, RBC 3.91 L, Hgb 12.1 L, Hct 35.3 L, MCV 90.3, MCH 30.9, MCHC 34.3, RDW Std Deviation 45.8 H, RDW Coeff of Manuela 13.8, Plt Count 157, MPV 10.9, Immature Gran % (Auto) 0.800, Neut % (Auto) 78.2 H, Lymph % (Auto) 10.6 L, Dillingham % (Auto) 7.5, Eos % (Auto) 2.8, Baso % (Auto) 0.1, Absolute Neuts (auto) 6.9, Absolute Lymphs (auto) 0.94, Absolute Nucleated RBC 0.00, Nucleated RBC % 0 01/25/19 05:00: Sodium 141, Potassium 3.8, Chloride 107, Carbon Dioxide 27.0, Anion Gap 7, BUN 14, Creatinine 0.97, Estim Creat Clear Calc 64.64, Est GFR (MDRD) Af Amer 97, Est GFR (MDRD) Non-Af 81, BUN/Creatinine Ratio 14.5, Glucose 128 H, Calcium 8.3 L 01/25/19 05:00: WBC 10.8, RBC 3.76 L, Hgb 11.7 L, Hct 34.1 L, MCV 90.7, MCH 31.1, MCHC 34.3, RDW Std Deviation 45.7 H, RDW Coeff of Manuela 13.7, Plt Count 158, MPV 10.7, Immature Gran % (Auto) 0.900, Neut % (Auto) 81.9 H, Lymph % (Auto) 6.4 L, Dillingham % (Auto) 8.6, Eos % (Auto) 1.9, Baso % (Auto) 0.3, Absolute Neuts (auto) 8.8 H, Absolute Lymphs (auto) 0.69 L, Absolute Nucleated RBC 0.00, Nucleated RBC % 0 Current Medications Acetaminophen (Tylenol) 650 mg PO Q6H PRN PRN PRN Reason: Mild Pain (1-3)/Temp > 100.7 F Last Admin: 01/25/19 07:20 Dose: 650 mg Documented by: Al Hydroxide/Mg Hydroxide (Mylanta Ii) 30 ml PO Q6H PRN PRN PRN Reason: Gastric Burning Atenolol (Tenormin (Beta Dorothy)) 25 mg PO DAILY [facility] Last Admin: 01/24/19 14:00 Dose: 25 mg Documented by: Bicalutamide (Bicalutamide) 50 mg PO DAILY [facility] Last Admin: 01/24/19 18:30 Dose: Not Given Documented by: Diltiazem HCl (Cardizem Cd) 120 mg PO DAILY [facility] Last Admin: 01/24/19 14:01 Dose: 120 mg Documented by: Docusate Sodium (Colace) 100 mg PO BID PRN PRN PRN Reason: Constipation Fluorometholone (Fluorometholone) 0 ml EACH EYE 4X/DAY [facility] Last Admin: 01/24/19 21:52 Dose: 5 ml Documented by: Furosemide (Lasix) 40 mg PO DAILY [facility] Last Admin: 01/24/19 18:31 Dose: Not Given Documented by: Sodium Chloride () 1,000 mls @ 75 mls/hr IV .[id number] [facility] Last Admin: 01/24/19 19:57 Dose: 75 mls/hr Documented by: Ibuprofen (Motrin) 400 mg PO Q4H PRN PRN PRN Reason: Mild Pain (1-3)/Temp > 100.7 F Nutritional Formula (Lactose Free) (Ensure Enlive) 120 ml PO 4X/DAY [facility] Last Admin: 01/24/19 21:48 Dose: 120 ml Documented by: Ondansetron HCl (Zofran) 4 mg IV Q8H PRN PRN PRN Reason: NAUSEA/VOMITING Oxycodone HCl (Oxyir) 10 mg PO Q4H PRN PRN PRN Reason: Moderate Pain (4-6/10) Potassium Chloride (K-Dur) 20 meq PO DAILY [facility] Last Admin: 01/24/19 18:30 Dose: Not Given Documented by: Sodium Chloride () 10 - 40 ml IV UD PRN PRN Reason: SALINE FLUSH Last Admin: 01/22/19 09:36 Dose: 10 ml Documented by: Zolpidem Tartrate (Ambien (Generic)) 5 mg PO QHS PRN PRN PRN Reason: INSOMNIA Medical Necessity - Tobacco Use Smoking Status: Never smoker Assessment/Plan All Active Problems (Last Updated 08/07/18 @ 10:09 by Pennie A Fabienne) Bladder outflow obstruction (Acute) Hematuria (Acute) Dyspnea on 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 Paroxysmal atrial fibrillation, in NSR, on atenolol and cardizem, off Xarelto, Continue off Xarelto as risk of bleeding outweighs risk of stroke 3. Hypertension, controlled, continue on atenolol and cardizem, continue to monitor 4. CKD stage 3, at his baseline 5. DVT PPx- SCDs Code Visit Inpatient E&M: 83743 Subs Hosp L2
[2019-01-25] MEDS: oxyCODONE 5 MG Tablet 10 MG PO (07:58)
[2019-01-25] MEDS: 0.9% Normal Saline 1,000 ML 75 ML IV ×2 (07:59→20:58)
[2019-01-25] MEDS: Furosemide 40 MG Tablet PO (10:47)
[2019-01-25] MEDS: dilTIAZem CD 120 MG Capsule PO (10:47)
[2019-01-25] MEDS: Atenolol 25 MG Tablet PO (10:47)
[2019-01-25] MEDS: ENZALUTAMIDE 40 MG CAPSULE 160 MG PO (10:48)
[2019-01-25] MEDS: BICALUTAMIDE 50 MG TABLET PO (10:49)
[2019-01-25] MEDS: FLUOROMETHOLONE 5 ML DROPS.SUSP EACH EYE ×2 (10:50→23:26)
[2019-01-25 10:52] VITALS: BP 100/52; PULSE 59; RESP 16; TEMP 36.6; O2SAT 94
[2019-01-25 16:23] VITALS: BP 104/51; PULSE 50; RESP 16; TEMP 36.6; O2SAT 93
[2019-01-25] MEDS: Ibuprofen 400 MG Tablet PO (20:42)
[2019-01-25 22:44] VITALS: BP 122/49; PULSE 60; RESP 16; TEMP 37.3; O2SAT 100
[2019-01-26] MEDS: 0.9% Normal Saline 1,000 ML 75 ML IV (03:55)
[2019-01-26 04:01] VITALS: BP 109/55; PULSE 58; RESP 18; TEMP 36.8; O2SAT 100
--- NOTE | 2019-01-26 07:16 | PCM.PROGNOTE ---
Patient Problems: Active and Suspected Problems (Last Updated 08/07/18 @ 10:09 by Pennie Loving) Bladder outflow obstruction (Acute) Hematuria (Acute) Subjective: Took the patient to surgery on Tuesday for bleeding the urine was clear yesterday we stopped the irrigation this morning the urine is bloody again we will continue irrigation we will try alum 1% alum irrigation to see this. The bleeding. - Physical Exam General: Alert, Oriented x3, Cooperative HEENT: Atraumatic, PERRLA, EOMI, Normocephalic Neck: Supple, No JVD, Negative Carotid Bruits Lungs: Clear to auscultation, Normal air movement Cardiovascular: Regular rate, No murmurs Abdomen: Bowel Sounds Present, Soft, Non Tender Extremities: No edema, Capillary Refill Less than 3 Seconds Skin: No rashes, No breakdown Musculoskeletal: No Tenderness to Palpation of Joints or Extremities Neurological: Cranial nerves II-XII grossly intact Psych/Mental Status: Normal Affect, Appropriate Vital Signs Temp Pulse Resp BP Pulse Ox 98.2 F 58 L 18 109/55 L 100 01/26/19 04:01 01/26/19 04:01 01/26/19 04:01 01/26/19 04:01 01/26/19 04:01 Oxygen Flow Rate (L/min) 2 Oxygen Delivery Method Room Air Weight: 86.2 kg Body Mass Index (BMI) 28.8 Finger Stick Blood Glucose 105 Intake and Output for Last 24 Hours 01/24/19 01/25/19 01/26/19 23:59 23:59 23:59 Intake Total 2185 / 2852 3943 / 3943 514 / 514 Output Total 5450 / 5450 2024 1500 / 1500 Balance -3265 / -2598 8 / 1917 -986 / -986 Medical Necessity - Tobacco Use Smoking Status: Never smoker Assessment/Plan All Active Problems (Last Updated 08/07/18 @ 10:09 by Pennie Loving) Bladder outflow obstruction (Acute) Hematuria (Acute) Dyspnea on exertion (Acute) 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
--- NOTE | 2019-01-26 07:27 | NURSING ---
last round pt had bright red blood in his chavarria bag. Asked pt if he pulled on his chavarria and pt stated he thought he did. Called the DrHaley and got an order to restart cbi. Obtained new tubing and cleaned the chavarria port. Restarted CBI. While this nurse was still in the room, the chavarria started to run clear and slowed down drip.
--- NOTE | 2019-01-26 07:34 | PN_ITS ---
Patient Problems: Active and Suspected Problems (Last Updated 08/07/18 @ 10:09 by Pennie Loving) Bladder outflow obstruction (Acute) Hematuria (Acute) Subjective: Patient was seen and examined. He was reportedly confused overnight. He had an episode of inability to swallow. Seen by speech therapy cleared him. Had an episode of hematuria, along with irrigation ordered. Denied chest pain or dizziness or shortness of breath. Objective: Physical exam: General: Alert, Oriented x3, Cooperative, No apparent distress HEENT: Atraumatic, PERRLA, EOMI, Normocephalic Neck: Supple Lungs: Clear to auscultation, Normal air movement Cardiovascular: Regular rate, Regular Rhythm, Normal S1, Normal S2, No murmurs Abdomen: Bowel Sounds Present, Soft, Non Tender, Non-Distended, No Hepato- splenomegaly, - - chavarria catheter has yellow urine Extremities: No edema Skin: No rashes Musculoskeletal: No Tenderness to Palpation of Joints or Extremities Lymphatic: No Cervical, Supraclavicular, or Inguinal Adenopathy Neurological: Cranial nerves II-XII grossly intact Psych/Mental Status: Normal Affect, Appropriate Vitals/I&O's: Vital Signs Temp Pulse Resp BP Pulse Ox 98.2 F 58 L 18 109/55 L 100 01/26/19 04:01 01/26/19 04:01 01/26/19 04:01 01/26/19 04:01 01/26/19 04:01 Oxygen Flow Rate (L/min) 2 Oxygen Delivery Method Room Air Weight: 86.2 kg Body Mass Index (BMI) 28.8 Finger Stick Blood Glucose 105 Intake and Output for Last 24 Hours 01/24/19 01/25/19 01/26/19 23:59 23:59 23:59 Intake Total 2185 / 2852 3943 / 3943 514 / 514 Output Total 5450 / 5450 2024 / 2024 1500 / 1500 Balance -3265 / -2598 1918 / 1917 -986 / -986 Current Medications Acetaminophen (Tylenol) 650 mg PO Q6H PRN PRN PRN Reason: Mild Pain (1-3)/Temp > 100.7 F Last Admin: 01/25/19 07:20 Dose: 650 mg Documented by: Al Hydroxide/Mg Hydroxide (Mylanta Ii) 30 ml PO Q6H PRN PRN PRN Reason: Gastric Burning Atenolol (Tenormin (Beta Dorothy)) 25 mg PO DAILY [facility] Last Admin: 01/25/19 10:47 Dose: 25 mg Documented by: Belladonna Alkaloids/Opium (B & O) 60 mg RECTAL Q6H PRN PRN PRN Reason: BLADDER SPASMS Bicalutamide (Bicalutamide) 50 mg PO DAILY [facility] Last Admin: 01/25/19 10:49 Dose: 50 mg Documented by: Alum 30 gm/ Sodium Chloride 3, (000 ml) 0 gm IR X1 ONE Stop: 01/26/19 08:31 Diltiazem HCl (Cardizem Cd) 120 mg PO DAILY [facility] Last Admin: 01/25/19 10:47 Dose: 120 mg Documented by: Docusate Sodium (Colace) 100 mg PO BID PRN PRN PRN Reason: Constipation Fluorometholone (Fluorometholone) 0 ml EACH EYE BID [facility] Last Admin: 01/25/19 23:26 Dose: 5 ml Documented by: Furosemide (Lasix) 40 mg PO DAILY [facility] Last Admin: 01/25/19 10:47 Dose: 40 mg Documented by: Sodium Chloride () 1,000 mls @ 75 mls/hr IV .[id number] [facility] Last Admin: 01/26/19 03:55 Dose: 75 mls/hr Documented by: Ibuprofen (Motrin) 400 mg PO Q4H PRN PRN PRN Reason: Mild Pain (1-3)/Temp > 100.7 F Last Admin: 01/25/19 20:42 Dose: 400 mg Documented by: Nutritional Formula (Lactose Free) (Ensure Enlive) 120 ml PO 4X/DAY [facility] Last Admin: 01/25/19 20:57 Dose: 120 ml Documented by: Ondansetron HCl (Zofran) 4 mg IV Q8H PRN PRN PRN Reason: NAUSEA/VOMITING Oxycodone HCl (Oxyir) 10 mg PO Q4H PRN PRN PRN Reason: Moderate Pain (4-6/10) Last Admin: 01/25/19 07:58 Dose: 10 mg Documented by: Potassium Chloride (K-Dur) 20 meq PO DAILY [facility] Last Admin: 01/25/19 10:47 Dose: 20 meq Documented by: Sodium Chloride () 10 - 40 ml IV UD PRN PRN Reason: SALINE FLUSH Last Admin: 01/22/19 09:36 Dose: 10 ml Documented by: Zolpidem Tartrate (Ambien (Generic)) 5 mg PO QHS PRN PRN PRN Reason: INSOMNIA Medical Necessity - Tobacco Use Smoking Status: Never smoker Assessment/Plan All Active Problems (Last Updated 08/07/18 @ 10:09 by Pennie Loving) Bladder outflow obstruction (Acute) Hematuria (Acute) Dyspnea on exertion (Acute) penitentiary (current) use of anticoagulants (Acute) 1. Gross hematuria secondary to radiation cystitis, resolved bladder mass ruled out from cystoscopy yesterday, H/o prostate CA, history of radiation therapy, Urology managing, chavarria catheter in situ Follow-up on urology recommendations. 2. Paroxysmal atrial fibrillation, in NSR, on atenolol and cardizem, off Xarelto, Continue off Xarelto as risk of bleeding outweighs risk of stroke 3. Hypertension, controlled, continue on atenolol and cardizem, continue to monitor 4. CKD stage 3, at his baseline 5. DVT PPx- SCDs Code Visit Inpatient E&M: 60138 Subs Hosp L2
[2019-01-26 10:00] VITALS: BP 113/47; PULSE 56; RESP 18; TEMP 37.1; O2SAT 96
--- NOTE | 2019-01-26 10:30 | CASEMGMT ---
Addendum entered by Michele Meng 01/26/19 16:07: Walker has not been delivered to room yet. Call placed to [employer]. [employer] rep states they are still awaiting a payment of $8.91 from pt. Pt's got on phone while ULIS ZAYAS present and made this payment with [employer] rep. Confirm # [id number]. Call placed back to [employer] 30 min after payment made. Rep states unable to provide a time of expected delivery of walker. She states to call back to [employer] in 30-60 min. Pt is ready for discharge. Family states they can get patient into the home safely from the vehicle without the walker and requesting for walker be delivered to pt's home instead of to the hospital. Call placed back to [facility] and they were notified to deliver walker to pt's address. Family provided with [facility]'s phone number in case they need to contact them this evening. Addendum entered by Michele Meng 01/26/19 12:26: Script for Walker has been received and was faxed to [facility]. Call placed to [facility] and they confirmed they received the script. LUIS ZAYAS requested walker be delivered to pt's room today, as there is a possibility pt may be discharged home today. Original Note: LUIS ZAYAS NOTE: Informed by Yolanda SMITH, that family asking about HHC and a walker for pt. PT notes have been reviewed. Pt recommend further therapy. LUIS ZAYAS to room. Introduced self and role of LUIS ZAYAS to pt, , and daughter. Discussed options of HHC with pt and family. Both family and pt do not feel that pt needs therapy @ discharge. Daughter inquired about HHC for F/C care and monitoring. They were informed that staff would do teaching with the pt and family prior to discharge so they can manage it at home. Per family, plans are for pt to see Dr Prather on Tuesday to have F/C removed. They were made aware that HHC would most likely not start HHC until next week. After discussion, daughter and state they feel HHC would not be needed after-all and they feel they can manage F/C at home. Daughter stated, I just wanted to see what options we had. Pt and family made aware, if in the future, they feel pt would benefit from OP therapy or HHC, that they can follow up with PCP about this. They voice understanding. Pt and family do not have a preference of [employer] for a walker and are agreeable with [employer]. Alayna ATKINSN RN CM
--- NOTE | 2019-01-26 10:58 | DCINST_ITS ---
Discharge Diet: Light diet - advance as tolerated Discharge Activity: Return to Normal Activity Call your doctor if your incision/area has: Sudden Increased Bleeding Call your doctor if you observe: Inability to urinate Suture Line Care: Avoid Pulling/Pushing, Avoid Pinching/Bending Allergies/Adverse Reactions: Allergies No Known Allergies Allergy (Verified 01/22/19 05:16) Medications to take at Discharge bicalutamide 50 mg tablet 50 mg PO QDAY 02/14/18 diltiazem ER 120 mg capsule,24 hr,extended release 120 mg PO DAILY #90 cap 02/14/18 furosemide 40 mg tablet 40 mg PO DAILY #90 tab 02/14/18 potassium chloride ER 20 mEq tablet,extended release 20 meq PO QDAY #90 tab 02/14/18 Handicap Placard #1 ea NS 12/19/18 Atenolol 25 mg PO QDAY 01/22/19 Enzalutamide [Xtandi] 160 mg PO DAILY 01/22/19 Fluorometholone 1 drp EACH EYE 4X/DAY 01/22/19 Primary Care Physician: Masoud Rosa MD [Primary Care Provider] - Test Results: Test results from this visit will be discussed in further detail at your follow- up appointment, if applicable. Please Follow Up With: Robert Prather MD When: in 2 weeks, please call to make an appointment.
[2019-01-26] MEDS: Ibuprofen 400 MG Tablet PO (11:38)
[2019-01-26] MEDS: Furosemide 40 MG Tablet PO (11:39)
[2019-01-26] MEDS: ENZALUTAMIDE 40 MG CAPSULE 160 MG PO (11:39)
[2019-01-26] MEDS: dilTIAZem CD 120 MG Capsule PO (11:39)
[2019-01-26] MEDS: Atenolol 25 MG Tablet PO (11:39)
[2019-01-26] MEDS: BICALUTAMIDE 50 MG TABLET PO (11:43)
[2019-01-26] MEDS: FLUOROMETHOLONE 5 ML DROPS.SUSP EACH EYE (11:43)
[2019-01-26 16:21] VITALS: BP 99/50; PULSE 55; RESP 16; TEMP 37.1; O2SAT 95
--- NOTE | 2019-01-29 12:27 | CASEMGMT ---
LUIS DC PHONE CALL DC DATE: 01/26/19 DC Disposition: Home Diagnosis on Discharge: Cystoscopy for evacuation of blood clots. LACE/STRATA: 06/06 Attempted call to home phone. No answer. Minda SPICER RN AC
--- NOTE | 2019-01-30 07:45 | PCM.DC.SUM ---
Discharge Date and Diagnosis Date of Admission: 01/22/19 Date of Discharge: 01/26/19 - Primary Discharge Diagnosis Gross hematuria and radiation cystitis - Secondary Discharge Diagnosis Chronic Problems (Last Updated 08/07/18 @ 10:09 by Pennie Loving) Paroxysmal atrial fibrillation (Chronic) S/P cardioversion on 04/21/2016 Other secondary pulmonary hypertension (Chronic) Cardiomyopathy in other diseases classified elsewhere (Chronic) Persistent atrial fibrillation (Chronic) Hypertension (Chronic) Hospital Course and Treatment Operations: - - Cystoscopy transurethral resection of the bladder and radiation fulguration Procedures: None Summary of Care Provided: The patient is a 73 year old male with a history of prostate cancer treated with radiation therapy in the past comes in the hospital with severe bleeding we did cath irrigation which failed and eventually to remove the surgery for cystoscopy evacuation of blood clots cauterization of bleeding biopsy of the bladder transurethral resection of the bladder after resection cauterization bleeding stopped patient's catheter was removed he was able to urinate on his own without any blood clots in the nice and clear. He was on blood thinners which is been stopped because of the heavy bleeding from the bladder. He went home in good condition no pain or discomfort was eating well walking around well no pain in his legs no pain in the thighs and the pain in the back is feeling well with urinating well. - Physical Exam General: Alert, Oriented x3, Cooperative HEENT: Atraumatic, PERRLA, EOMI, Normocephalic Neck: Supple, No JVD, Negative Carotid Bruits Lungs: Clear to auscultation, Normal air movement Cardiovascular: Regular rate, No murmurs Abdomen: Bowel Sounds Present, Soft, Non Tender Extremities: No edema, Capillary Refill Less than 3 Seconds Skin: No rashes, No breakdown Musculoskeletal: No Tenderness to Palpation of Joints or Extremities Neurological: Cranial nerves II-XII grossly intact Psych/Mental Status: Normal Affect, Appropriate Vital Signs Temp Pulse Resp BP Pulse Ox 98.7 F 55 L 16 99/50 L 95 01/26/19 16:21 01/26/19 16:21 01/26/19 16:21 01/26/19 16:21 01/26/19 16:21 Oxygen Flow Rate (L/min) 2 Oxygen Delivery Method Room Air Weight: 86.2 kg Body Mass Index (BMI) 28.8 Finger Stick Blood Glucose 105 Discharge Diet: Light diet - advance as tolerated Discharge Activity: Return to Normal Activity Call your doctor if your incision/area has: Sudden Increased Bleeding Call your doctor if you observe: Inability to urinate Suture Line Care: Avoid Pulling/Pushing, Avoid Pinching/Bending Home Medications: Medications to take at Discharge bicalutamide 50 mg tablet 50 mg PO QDAY 02/14/18 diltiazem ER 120 mg capsule,24 hr,extended release 120 mg PO DAILY #90 cap 02/14/18 furosemide 40 mg tablet 40 mg PO DAILY #90 tab 02/14/18 potassium chloride ER 20 mEq tablet,extended release 20 meq PO QDAY #90 tab 02/14/18 Atenolol 25 mg PO QDAY 01/22/19 Enzalutamide [Xtandi] 160 mg PO DAILY 01/22/19 Fluorometholone 1 drp EACH EYE 4X/DAY 01/22/19 Enoxaparin Sodium [Lovenox] 80 mg SQ DAILY #10 syringe 01/29/19 Handicap Placard 1 unit .ROUTE .MEDSUPPLY 01/29/19 Primary Care Physician: Masoud Rosa MD [Primary Care Provider] - Please Follow Up With: Robert Prather MD When: in 2 weeks, please call to make an appointment. Medical Necessity - Tobacco Use Smoking Status: Never smoker Meaningful Use Info Meaningful Use Diagnoses (Choose all that apply): None applicable
== END 2019-01-26 16:45 | disposition home or self-care (01) | DRG 663 ==
LOC: ED 07:21 → MS3 07:42
PROVIDERS: Internal Medicine; Admitting Provider Urology; Emergency Provider Emergency Medicine; Family Provider Family Medicine; PCP Family Medicine; Referring Provider Urology; Visit Provider Urology
PROC: 0TCB8ZZ Extirpation of Matter from Bladder, Via Natural or Artificial Opening Endoscopic (ICD-10-PCS; principal; 2019-01-24 15:45)
DX: N30.41 Irradiation cystitis with hematuria (principal); C77.9 Secondary and unspecified malignant neoplasm of lymph node, unspecified; N18.3 Chronic kidney disease, stage 3 (moderate); I12.9 Hypertensive chronic kidney disease with stage 1 through stage 4 chronic kidney disease, or unspecified chronic kidney disease; Y84.2 Radiological procedure and radiotherapy as the cause of abnormal reaction of the patient, or of later complication, without mention of misadventure at the time of the procedure; N32.0 Bladder-neck obstruction; I48.0 Paroxysmal atrial fibrillation; C61 Malignant neoplasm of prostate; Z79.01 Long term (current) use of anticoagulants; Z92.3 Personal history of irradiation
CPT/HCPCS: 36415; 51702; 74178; 80048; 81001; 82962; 85025; 92610; 93005; 97116; 97161; 97530; 97802; 99284; J7030; Q9967; A4216; J2405

== ENCOUNTER → 2019-01-29 10:16 | Outpatient (CLI) | payer MEDICARE, SELFPAY ==
[2019-01-24 13:54] VITALS: BMI 28.8
--- NOTE | 2019-01-29 10:20 | VDLE_ITS ---
Reason For Study: Pain/Swelling RIGHT LEFT GSV is normal. GSV is normal. CFV is compressible, spontaneous, phasic, CFV is compressible, spontaneous, phasic, competent and demonstrates normal competent, and demonstrates normal augmentation. augmentation. FV is compressible, spontaneous, phasic, FV is compressible, spontaneous, phasic, competent and demonstrates normal competent and demonstrates normal augmentation. augmentation. POP V is compressible, spontaneous, phasic, POP V is compressible, spontaneous, phasic, competent and demonstrates normal competent and demonstrates normal augmentation. augmentation. T/P Trunk is compressible. T/P Trunk is compressible. PTV is compressible. PTV is compressible. RT PerV is compressible. Acute deep vein thrombosis is noted in the Procedure left peroneal vein. Exam performed in department. Acute deep vein thrombosis is noted in the A preliminary report was called and/or faxed left gastroc vein. to [facility]. Pt sent to ED. Interpretation Summary Acute deep vein thrombosis is noted in the left peroneal vein. Acute deep vein thrombosis is noted in the left gastrocnemius vein. The remainder of the left lower extremity deep venous system is patent and compressible. Deep veins of the right lower extremity are patent and compressible segmentally. There is no evidence of right lower extremity deep vein thrombosis. Valvular competence appears intact within the proximal deep venous systems bilaterally. The greater saphenous veins appear bilaterally patent and compressible segmentally. Ordering Physician: Robert Prather Referring Physician: Masoud Rosa Performed By: Joaquina Matthew RVT
== END ==
PROVIDERS: Family Provider Family Medicine; PCP Family Medicine; Referring Provider Urology; Visit Provider Urology
DX: M79.89 Other specified soft tissue disorders (principal); M79.604 Pain in right leg; M79.605 Pain in left leg
CPT/HCPCS: 93970

== ENCOUNTER 2019-01-29 11:23 | Emergency (ER) | payer MEDICARE, SELFPAY ==
[2019-01-24 13:54] VITALS: BMI 28.8
[2019-01-29 11:24] VITALS: BP 129/68; PULSE 53; RESP 16; TEMP 36.8; O2SAT 99; BMI 29.3
--- NOTE | 2019-01-29 11:51 | ED.VISSUMM ---
- ER Visit Summary Date of Service: 01/29/19 Chief Complaint: DVT History of Present Illness: The patient is a 73 M who presents with DVT in his left leg that was diagnosed this morning. Patient had an outpatient venous duplex of his left lower extremity which was positive for DVT in the left peroneal and left gastrocnemius vein. Patient admits to some pain and swelling in the left leg. Patient denies any chest pain or shortness of breath. Patient was recently admitted to the hospital for hematuria and passing blood clots. Patient states his urologist wanted him to stop his Xarelto for 1 month. Patient had been on Xarelto for atrial fibrillation. Currently, the patient is in a normal sinus rhythm. Patient denies any palpitations. Physical Examination: Vital signs are stable. Patient is afebrile. Patient is in no acute distress. Oral mucosa was pink and moist. Neck is supple. Trachea is midline. Heart was regular rate and rhythm. Lungs are clear and equal bilaterally. Abdomen is soft. Bowel sounds are normal. There is no tenderness. Cranial nerves II through XII are intact. There are no focal motor or sensory deficits noted. Musculoskeletal exam reveals edema and tenderness of the left calf and lower leg. Pedal pulses are equal bilaterally. There is no tenderness of the thigh or right lower extremity. Test Results: Patient had an outpatient venous duplex of his lower extremities today which showed an acute DVT in the left peroneal vein and left gastrocnemius vein. Emergency Department Course and Treatment: Case was discussed with Dr. Prather. He recommended starting the patient on Lovenox. Patient was given his first dose of Lovenox here. Patient was given prescription for Lovenox injections. Patient was instructed to follow-up with Dr. Prather as scheduled. Patient and family understood and were agreeable with the plan. All questions were answered. Disposition: Discharge home Impression: DVT left lower extremity This note was generated with [employer] dictation software. It may contain incorrect words, spelling, and punctuation that were not noted in review of the chart prior to signing ED Disposition - Plan for ED Patient: Disposition: Home or Assisted Living Diagnosis: DVT of lower limb, acute Instructions: Deep Vein Thrombosis Prescriptions: Enoxaparin Sodium [Lovenox] 80 mg SQ DAILY #10 syringe Transmission Status: Pending to [facility] Referrals: Masoud Rosa MD [Primary Care Provider] - 1-2 Weeks Robert Prather MD [STAFF PHYSICIAN] - Keep Beatriz appointment
[2019-01-29] MEDS: Enoxaparin 80 MG/0.8 ML Syringe SC (13:15)
--- NOTE | 2019-01-29 13:24 | ED.RN ---
INSTRUCTED PT ON SELF INJECTION OF SQ SHOTS. PT SAFELY AND SUCCESSFULLY ADMINISTERED SQ SHOT HIMSELF WITHOUT DIFFICULTY. DENIES ANY FURTHER QUESTIONS AND VERBALIZES UNDERSTANDING.
[2019-01-29 13:27] VITALS: BP 124/87; PULSE 67; RESP 18; O2SAT 99
== END 2019-01-29 13:27 | disposition home or self-care (01) ==
PROVIDERS: Emergency Provider Emergency Medicine; Family Provider Family Medicine; PCP Family Medicine
DX: I82.4Z2 Acute embolism and thrombosis of unspecified deep veins of left distal lower extremity (principal); I48.91 Unspecified atrial fibrillation; R31.9 Hematuria, unspecified; R30.0 Dysuria; M79.89 Other specified soft tissue disorders; M79.604 Pain in right leg; M79.605 Pain in left leg; Z79.899 Other long term (current) drug therapy; Z85.46 Personal history of malignant neoplasm of prostate
CPT/HCPCS: 93970; 96372; 99282

== ENCOUNTER → 2019-02-12 16:21 | Outpatient (CLI) | payer MEDICARE, SELFPAY ==
[2019-01-29 11:24] VITALS: BMI 29.3
== END ==
PROVIDERS: Family Provider Family Medicine; PCP Family Medicine; Referring Provider Urology; Visit Provider Urology
DX: R31.9 Hematuria, unspecified (principal)
CPT/HCPCS: 87086; 87088

== ENCOUNTER → 2019-02-26 11:06 | Outpatient (CLI) | payer MEDICARE, SELFPAY ==
[2019-01-29 11:24] VITALS: BMI 29.3
== END ==
PROVIDERS: Family Provider Family Medicine; PCP Family Medicine; Referring Provider Urology; Visit Provider Urology
DX: N39.0 Urinary tract infection, site not specified (principal)
CPT/HCPCS: 87086; 87088

== ENCOUNTER 2019-03-23 06:19 | Emergency (ER) | payer MEDICARE, SELFPAY ==
[2019-03-01 14:22] VITALS: BMI 29.3
[2019-03-23 06:21] VITALS: BP 165/86; PULSE 56; RESP 16; TEMP 37.2; O2SAT 98; BMI 29.3
[2019-03-23 07:26] LABS: Bacteria 0 SEEN /hpf (None Seen); Mucous, Urine 0 SEEN /hpf (<or=2+); Squamous Epithelial Cells - UA 0 SEEN /hpf (0-5)
--- NOTE | 2019-03-23 07:26 | ED.VIS.GEN ---
History of Present Illness Chief Complaint: Complaint Informant: Patient, Family Onset: Yesterday Narrative: Hematuria and clots noted last evening. Still able to urinate fully. Mild pain with urine. No fevers. History of prostate cancer with recurrence a year ago. Reports he is on treatment. He is followed by Dr. Prather. Similar symptoms in January requiring Somers catheter due to unable to urinate. Reports cystoscopy performed with cauterization. Patient is on Xarelto for history of paroxysmal atrial fibrillation. This was restarted 2 days ago after clearance from cardiology and his retina specialist due to spontaneous subconjunctival hemorrhage. Denies any GI bleed symptoms. No lightheaded symptoms. No back pain. Reports today blood has lightened compared to yesterday. Denies abdominal pain. Denies nausea or vomiting. Prior similar symptoms: Yes Past Medical History - Allergies and Home Meds Allergies/Adverse Reactions: Allergies No Known Allergies Allergy (Verified 03/01/19 14:31) Primary Care Physician: Masoud Rosa MD [Primary Care Provider] - Surgical History: - - meatl extraction from eye, hernia repair, colonoscopy w/polypectomy, cataract exraction with implant left eye, and teeth extraction, prostate radiation treatment. Smoking Status: Never smoker Review of Systems General: Denies: Chills, Fever, Sweats Eyes: Denies: Visual changes - bilaterally, Diplopia ENT: Denies: Rhinorrhea, Sore throat Cardiovascular: Denies: Chest pain, Palpitations Respiratory: Denies: Dyspnea, Cough, Dyspnea on exertion Gastrointestinal: Denies: Abdominal pain, Nausea, Vomiting, Diarrhea, Melena, Hematochezia Genitourinary: Reports: Hematuria. Denies: Dysuria, Frequency Musculoskeletal: Denies: Back pain, Extremity Pain Skin: Denies: Rash, Wounds Neurological: Denies: Headache, Weakness, Numbness Physical Exam Vital Signs/Narrative: Vital Signs Temp Pulse Resp BP Pulse Ox 03/23/19 06:21 99.0 F 56 L 16 165/86 H 98 Inital Vital Signs reviewed: Yes General: Well nourished, Well developed, No Acute Distress Head: Normocephalic, Atraumatic Eyes: Perrl, EOMI ENT: Moist mucous membranes, No rhinorrhea Neck: Supple, Nontender Cardiovascular: Regular rate, Regular rhythm, No murmurs Respiratory: No distress, CTA bilaterally, Chest nontender Abdomen: Soft, Nontender, Nondistended, Normal bowel sounds Back: Nontender, Normal Inspection Extremities: Nontender, No edema Skin: Normal color, No rash Neurological: Alert, Oriented x3, Cranial nerves II-XII grossly intact, Normal Strength, Normal Sensation Psychological: Normal affect, Normal Mood Diagnostic/Tx/Re-eval Abnormal Lab Results 03/23/19 03/23/19 03/23/19 06:45 07:30 07:30 WBC 3.6 L RBC 4.50 L Hgb 13.0 Hct 39.8 L MCV 88.4 MCH 28.9 MCHC 32.7 RDW Std Deviation 45.6 H RDW Coeff of Manuela 14.2 Plt Count 166 MPV 10.3 Immature Gran % (Auto) 0.300 Neut % (Auto) 66.2 Lymph % (Auto) 18.6 L Nash % (Auto) 11.5 H Eos % (Auto) 3.1 Baso % (Auto) 0.3 Absolute Neuts (auto) 2.4 Absolute Lymphs (auto) 0.66 L Nucleated RBC % 0 PT 14.2 INR 1.1 APTT 34.0 Sodium Potassium Chloride Carbon Dioxide Anion Gap BUN Creatinine Estim Creat Clear Calc Est GFR (MDRD) Af Amer Est GFR (MDRD) Non-Af BUN/Creatinine Ratio Glucose Calcium Urine Color SEE COMMENT BELOW Urine Clarity Clear Urine pH 8.0 Ur Specific [place] 1.010 Urine Protein 30 H Urine Glucose (UA) Normal Urine Ketones Negative Urine Occult Blood 250 H Urine Nitrite Negative Urine Bilirubin Negative Urine Urobilinogen Normal Ur Leukocyte Esterase 100 H Urine RBC > 100 SEEN Urine WBC 0-5 SEEN Ur Squamous Epith Cells 0 SEEN Urine Bacteria 0 SEEN Urine Mucus 0 SEEN 03/23/19 07:30 WBC RBC Hgb Hct MCV MCH MCHC RDW Std Deviation RDW Coeff of Manuela Plt Count MPV Immature Gran % (Auto) Neut % (Auto) Lymph % (Auto) Nash % (Auto) Eos % (Auto) Baso % (Auto) Absolute Neuts (auto) Absolute Lymphs (auto) Nucleated RBC % PT INR APTT Sodium 143 Potassium 3.8 Chloride 106 Carbon Dioxide 30.0 Anion Gap 7 BUN 17 Creatinine 1.16 Estim Creat Clear Calc 54.05 Est GFR (MDRD) Af Amer 79 Est GFR (MDRD) Non-Af 65 BUN/Creatinine Ratio 14.7 Glucose 100 Calcium 8.9 Urine Color Urine Clarity Urine pH Ur Specific [place] Urine Protein Urine Glucose (UA) Urine Ketones Urine Occult Blood Urine Nitrite Urine Bilirubin Urine Urobilinogen Ur Leukocyte Esterase Urine RBC Urine WBC Ur Squamous Epith Cells Urine Bacteria Urine Mucus Clinical Impression(s) from Imaging Studies Abdomen/Pelvis CT 03/23/19 08:54 IMPRESSION: Fatty infiltration of the liver. Asymmetric thickening of the right wall of the bladder as described. This is unchanged. There is also evidence of increased density at the bladder base posteriorly. Electronically Signed: Fausto Gross, at 10:55 EDT , Service support , Patient nontoxic, vital signs stable. Restart on Xarelto with hematuria. Labs check hemoglobin 13, urine noted hematuria with leukocytes I did send for urine culture. Normal renal function. From history reports blood is not as significant as yesterday. He is still urinating. Initially spoke with his urologist who was in with the procedure Dr. Prather, reports plan on stopping Xarelto no antibiotics however to obtain an contrast CT for further evaluation due to 2 episodes of hematuria. He did report having cystoscopy after his first event in January. Contrast CT does no concerns for 2 x 2 centimeter bladder mass on right side. We discussed with Dr. Prather, who reviewed images agrees concerns for a tumor. He will follow-up closely as an outpatient for cystoscopy and further evaluation. Strict signs and symptoms if he does not urinate or increasing bleeding with becoming symptomatic to return. All questions were answered. ED Disposition - Plan for ED Patient: Disposition: Home or Assisted Living Diagnosis: Hematuria, Bladder mass Instructions: Hematuria Referrals: Masoud Rosa MD [Primary Care Provider] - Robert Prather MD [STAFF PHYSICIAN] - 3-5 Days Additional Instructions: Hold your Xarelto. 2 x 2 centimeter right sided bladder mass on CT. Follow-up with , did not urinate within 6 hours to become symptomatic return for reevaluation.
[2019-03-23 07:37] LABS: Glucose, Dipstick Normal (Normal); Ketone-Dipstick Negative (Negative); Leukocyte Esterase-Dipstick 100 /ul (Negative); Nitrite-Dipstick Negative (Negative); Occult Blood-Urine 250 /ul (Negative); Protein-Dipstick 30 mg/dl (Negative); Urine Bilirubin Dipstick Negative (Negative); Urine Clarity Clear (Clear); Urine Urobilinogen Normal (Normal)
[2019-03-23 07:41] LABS: Absolute Lymphocyte Count 0.66 X10^3/uL (0.83-4.51); Absolute Neutrophil Count 2.4 X10^3/uL (2.0-7.7); Basophil# 0.01 X10^3/uL; Basophil% 0.3 % (0-1); Eosinophil# 0.11 X10^3/uL; Eosinophils% 3.1 % (0-5); Hematocrit 39.8 % (40-54); Lymphocyte # 0.66 X10^3/ul (4.0); Lymphocyte % 18.6 % (19-41); Mean Corp Hgb Conc 32.7 g/dL (32-36); Mean Corpuscular Hgb 28.9 pg (27.0-32.0); Mean Corpuscular Volume 88.4 fL (80-94); Mean Platelet Vol. 10.3 fl (6.2-12.0); Monocyte# 0.41 X10^3/uL; Monocyte% 11.5 % (0-10); NRBC Flagged by Analyzer 0 % (0-5); Neutrophil # 2.35 X10^3/uL (2.7-7.7); Neutrophil % 66.2 % (47-70); Platelet Count 166 K/mm3 (150-450); RBC Distribution Width CV 14.2 % (11.6-14.6); RBC Distribution Width SD 45.6 fl (35.1-43.9); White Blood Count 3.6 K/mm3 (4.4-11.0)
[2019-03-23 07:43] LABS: Color, Urine SEE COMMENT BELOW (Yellow)
[2019-03-23 07:50] LABS: Anion Gap 7 (5-15); BUN 17 mg/dL (7-18); BUN/Creat Ratio 14.7 RATIO (10-20); Calcium,Total 8.9 mg/dL (8.5-10.1); Chloride 106 mmol/L (98-107); Creatinine, Serum 1.16 mg/dL (0.70-1.30); EST Glomerular Filtration Rate 65 mL/min (>60); Est Glom Filt Rate - Afr Amer 79 mL/min (>60); Estimated Creatinine Clearance 54.05 ml/min; Glucose 100 mg/dL (74-106); Potassium 3.8 mmol/L (3.5-5.1); Sodium Level 143 mmol/L (136-145)
[2019-03-23 08:08] LABS: Red Blood Cells-Urine > 100 SEEN /hpf (0-5); White Blood Cells 0-5 SEEN /hpf (0-5)
[2019-03-23 08:23] LABS: International Normalized Ratio 1.1; Prothrombin Time (Protime)PT. 14.2 SECONDS (11.7-14.9)
--- NOTE | 2019-03-23 08:54 | CT_ITS ---
STUDY: CT ABDOMEN AND PELVIS WITH CONTRAST REASON FOR EXAM: Male, 73 years old. Hematuria. History of prostate cancer and radiation. RADIATION DOSAGE (If Supplied By Facility): CTDIvol = ( 23.45 ) mGy, DLP = ( 1922.44 ) mGycm TECHNIQUE: Transaxial images were obtained from the dome of the diaphragm to the symphysis pubis with oral contrast. 100 IV/Oral Isovue 300 was administered. Sagittal and coronal images were reconstructed. Individualized dose optimization techniques were used for this CT. COMPARISON: Comparison is made with prior examination dated January 22, 2019 and July 13, 2007. FINDINGS: The visualized lung bases are unremarkable. The visualized portions of the heart are within normal limits. There is decreased attenuation of the liver consistent with steatosis. Normal gallbladder and extrahepatic biliary system. Normal spleen. Normal pancreas. Normal bilateral adrenal glands. Stable 3 cm cyst in the posterior superior aspect of the right kidney. Normal left kidney. Normal visualized stomach. Normal small intestine. Normal colon. The appendix is visualized and appears normal. There is scattered atherosclerotic calcification of the abdominal aorta, without a demonstrated aneurysm. Normal inferior vena cava. There is borderline retroperitoneal lymphadenopathy with enlarged nodes no greater than 10mm in the short axis diameter. There is a 2 cm x 2 cm mass along the right side of the bladder wall. This also evidence of a soft tissue density at the base of the bladder posteriorly. There has been no change. Correlation with cystoscopy is recommended. Normal abdominal wall. There are diffuse degenerative changes of the visualized lumbar spine. 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 CT/Abdomen/Pelvis WITH Contrast IMPRESSION: Fatty infiltration of the liver. Asymmetric thickening of the right wall of the bladder as described. This is unchanged. There is also evidence of increased density at the bladder base posteriorly. Electronically Signed: Fausto Gross, at 10:55 EDT , Service support ,
[2019-03-23 09:26] VITALS: RESP 16
[2019-03-23 11:22] VITALS: RESP 18
[2019-03-23 11:30] VITALS: RESP 16
== END 2019-03-23 12:00 | disposition home or self-care (01) ==
PROVIDERS: Emergency Provider Emergency Medicine; Family Provider Family Medicine; PCP Family Medicine
DX: R31.9 Hematuria, unspecified (principal); N32.9 Bladder disorder, unspecified; I48.0 Paroxysmal atrial fibrillation; Z79.01 Long term (current) use of anticoagulants; Z85.46 Personal history of malignant neoplasm of prostate
CPT/HCPCS: 74177; 80048; 81001; 85025; 85610; 85730; 87086; 87088; 99284; Q9967; A4216

== ENCOUNTER 2019-03-29 10:39 | Outpatient (RCR) | payer MEDICARE, SELFPAY ==
[2019-03-29 12:19] VITALS: BP 139/74; PULSE 57; RESP 16; TEMP 36.3; BMI 28.8
--- NOTE | 2019-03-29 14:27 | RAD_ITS ---
STUDY: X-RAY CHEST REASON FOR EXAM: Male, 73 years old. Radiation cystitis TECHNIQUE: Frontal and lateral views of the chest. COMPARISON: 04/15/2016. FINDINGS: There is hyperinflation of the lungs consistent with chronic obstructive lung disease (COPD). Stable fibrotic changes in both lung bases. No infiltrates. No effusions. There is no demonstrated pleural abnormality. Normal size heart. Normal mediastinum and sobeida. Normal visualized pulmonary arteries. There is atherosclerotic calcification of the aortic arch with tortuosity. Normal visualized thoracic spine. Normal visualized ribs, clavicles, and shoulders. There is no demonstrated abnormality of the visualized soft tissue structures of the upper abdomen. RAD/Chest PA and Lateral IMPRESSION: Stable COPD. No acute chest disease. Electronically Signed: Lul Pearson MD at 19:47 EDT , Service support ,
--- NOTE | 2019-03-29 14:29 | EKG12_ITS ---
Test Reason : Blood Pressure : / mmHG Vent. Rate : 063 BPM Atrial Rate : 063 BPM P-R Int : 184 ms QRS Dur : 084 ms QT Int : 438 ms P-R-T Axes : 061 -22 033 degrees QTc Int : 448 ms Normal sinus rhythm Minimal voltage criteria for LVH, may be normal variant Nonspecific ST abnormality Abnormal ECG Confirmed by KOREY HAYWARD, HERMELINDA ([id number]), image editor TAYLOR RENO ([id number]) on 03/30/2019 10:13:50 A M Referred By: Darin Alberto Confirmed By:ELA NAIR MD
[2019-03-29 15:26] LABS: Absolute Lymphocyte Count 0.87 X10^3/uL (0.83-4.51); Absolute Neutrophil Count 3.1 X10^3/uL (2.0-7.7); Basophil# 0.02 X10^3/uL; Basophil% 0.4 % (0-1); Eosinophil# 0.11 X10^3/uL; Eosinophils% 2.4 % (0-5); Hematocrit 42.3 % (40-54); Hemoglobin 13.6 g/dL (13.0-16.5); Lymphocyte # 0.87 X10^3/ul (4.0); Lymphocyte % 19.1 % (19-41); Mean Corp Hgb Conc 32.2 g/dL (32-36); Mean Corpuscular Hgb 28.5 pg (27.0-32.0); Mean Corpuscular Volume 88.7 fL (80-94); Mean Platelet Vol. 11.5 fl (6.2-12.0); Monocyte# 0.43 X10^3/uL; Monocyte% 9.5 % (0-10); NRBC Flagged by Analyzer 0 % (0-5); Neutrophil # 3.08 X10^3/uL (2.7-7.7); Neutrophil % 67.7 % (47-70); Platelet Count 189 K/mm3 (150-450); RBC Distribution Width CV 14.4 % (11.6-14.6); RBC Distribution Width SD 46.5 fl (35.1-43.9); Red Blood Count 4.77 M/mm3 (4.6-6.2); White Blood Count 4.6 K/mm3 (4.4-11.0)
--- NOTE | 2019-03-29 16:25 | HBO.CON.PC_ITS ---
(1) History of prostate cancer Status: Acute Current Visit: Yes Code(s): Z85.46 - Personal history of malignant neoplasm of prostate (2) Chronic radiation cystitis Status: Chronic Current Visit: Yes Code(s): N30.40 - Irradiation cystitis without hematuria (3) Hematuria Status: Acute Current Visit: No Qualifiers: Code(s): R31.9 - Hematuria, unspecified History of Present Illness Date of Service: 03/29/19 Presenting Chief Complaint: Radiation cystitis. The patient is a 73 year old M who [facility] the possibility of initiating hyperbaric oxygen therapy for treatment of radiation cystitis. History of prostate cancer initially diagnosed in 2005 after which he had sessions of radiotherapy. Last session of radiotherapy was in 2005. Recently had episodes of hematuria for which she had to have a Somers catheter placed. After Somers catheter insertion, was noted to have significant burning and pain on urination. Somers catheter has since been removed and hematuria has resolved post discontinuing Xarelto. Burning and pain in urination however has persisted. Infection has been ruled out. He was referred here by his urologist for possible history of treatment for chronic radiation cystitis. Feels well otherwise. Denies shortness of breath, chest pain or anxiety. 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 fib (paroxysmal ). Has been in normal sinus rhythm for a while now. Past Medical History Chronic Problems (Last Reviewed 02/28/19 @ 10:56 by Pennie Loving) Chronic radiation cystitis (Chronic) Paroxysmal atrial fibrillation (Chronic) S/P cardioversion on 04/21/2016 Other secondary pulmonary hypertension (Chronic) Cardiomyopathy in other diseases classified elsewhere (Chronic) Persistent atrial fibrillation (Chronic) Hypertension (Chronic) Allergies/Adverse Reactions: Allergies No Known Allergies Allergy (Verified 03/27/19 11:37) Home Medications: Ambulatory Orders Medication Instructions Recorded potassium chloride ER 20 mEq 20 meq PO QDAY #90 tab 02/14/18 tablet,extended release Enzalutamide [Xtandi] 80 mg PO DAILY 01/22/19 Fluorometholone 1 drp EACH EYE BID 01/22/19 atenolol 50 mg tablet 25 mg PO QDAY #45 tab 02/14/19 furosemide 40 mg tablet 40 mg PO DAILY #90 tab 02/14/19 diltiazem ER 120 mg capsule,24 120 mg PO DAILY #90 cap 02/19/19 hr,extended release aspirin 81 mg tablet,delayed 81 mg PO DAILY 03/01/19 release rivaroxaban 20 mg tablet 20 mg PO DAILY tab 03/01/19 Smoking Status: Never smoker Review of Systems Constitutional: Denies: Anorexia, Chills, Fever Eyes: Reports: Cataracts. Denies: Pain, Redness HEENT: Denies: Difficulty Swallowing Cardiovascular: Denies: Chest Pain, Claudication, Chest Pressure Respiratory: Denies: Cough, Hemoptysis Gastrointestinal: Denies: Abdominal Pain, Hematemesis, Vomiting Genitourinary: Denies: Hematuria Skin: Denies: Jaundice Psychiatric: Denies: Anxiety - Physical Exam Vital Signs Temp Pulse Resp BP 97.3 F L 57 L 16 139/74 H 03/29/19 12:19 03/29/19 12:19 03/29/19 12:19 03/29/19 12:19 General: Alert, Oriented x3, Cooperative, No apparent distress HEENT: Atraumatic, Normocephalic, TM's Clear Oral: Moist Mucosa Neck: Supple Lungs: Normal air movement Cardiovascular: Regular rate, Regular Rhythm, Normal S1, Normal S2 Abdomen: Soft, Non Tender Extremities: No cyanosis Wound Measurements and Assessment WC - Nurse 1 - General Ulcer Measurement Start: 03/29/19 11:22 Freq: Status: Active Protocol: Activity Type Activity Date Activity User E-Sign Co-Sign Detail Recorded Client Recorded Date Recorded By Document 03/29/19 12:19 DV [id number] 03/29/19 12:25 DV 03/29/19 12:19 [facility] Nurse 1 [Edema Assessment] -Lower Limb Edema Present No Musculoskeletal: No Muscle Wasting Neurological: Cranial nerves II-XII grossly intact Psych/Mental Status: Normal Affect Assessment/Plan Active Problems (Last Reviewed 02/28/19 @ 10:56 by Pennie Loving) History of prostate cancer (Acute) Chronic radiation cystitis (Chronic) KAREN MOYA is an appropriate candidate for hyperbaric oxygen therapy. Hyperbaric Oxygen Therapy would be an essential adjunct in the resolution and treatment of this chronic radiation cystitis. This patient has sufficient physiologic and psychological stamina to undergo the rigors of hyperbaric oxygen therapy. As such, I recommend the following: Hyperbaric Oxygen Treatments at 2.0 CAYDEN in 100% Oxygen for 90 minutes per treatment, for 40 treatments. I have discussed the possible benefits of hyperbaric oxygen therapy with this patient. I have also presented and described the risks, including: air gas embolism, pneumothorax, central nervous system and pulmonary oxygen toxicity, flash pulmonary edema, hypoglycemia, reversible visual refractive changes, ear and sinus eliza-trauma, and confinement anxiety. The patient has verbalized understanding of these risks, and is still wanting to undergo hyperbaric oxygen therapy. The patient understands the significant time and transportation commitment involved in daily treatments of up to two hours duration and has stated that they are willing to commit to this therapy. EKG, CBC and chest x-ray ordered. Follow-up with results.
== END 2019-04-02 23:59 ==
LOC: WC 10:39
PROVIDERS: Family Provider Family Medicine; PCP Family Medicine; Referring Provider Internal Medicine; Visit Provider Internal Medicine
DX: N30.41 Irradiation cystitis with hematuria (principal); Z85.46 Personal history of malignant neoplasm of prostate; I48.0 Paroxysmal atrial fibrillation; I27.29 Other secondary pulmonary hypertension; I10 Essential (primary) hypertension; I48.1 Persistent atrial fibrillation; Z79.899 Other long term (current) drug therapy; Z79.82 Long term (current) use of aspirin; Z79.01 Long term (current) use of anticoagulants
CPT/HCPCS: 36415; 71046; 85025; 93005; 99212; G0463

== ENCOUNTER 2019-03-30 09:19 | Day surgery (SDC) | payer MEDICARE, SELFPAY ==
[2019-03-29 12:19] VITALS: BMI 28.8
--- NOTE | 2019-03-30 | IMM_PTH ---
PATIENT: KAREN MOYA LOC: [facility] [place] U#:[id number] AGE/SX: 73/M ROOM: RE03/30/[address]: Dr. Robert Prather MD : 1945 BED: DIS: 03/30/2019 SPEC #: [id number] RECD: 04/02/19 12:08 STATUS: CHANEL REQ #: [id number] JOSE ALFREDO: 03/30/19 00:[address]: Robert Prather DEPT: IMMUNOHISTOCHEMISTRY RECD BY: Griselda Pickens ENTERED: 04/02/19 12:09 SP TYPE: IMMUNO OTHR DR: Dr. Masoud Rosa MD Tissues: Urinary bladder, NOS Procedures: RCC (add) NAPSIN A (add) CD10 (add) CK20 (add) CK5-6 (add) CK7 (add) CK8 (add) HEP PAR (add) TTF1 (add) Vimentin (add) Pankeratin (initial) P40 (add) PSAP (add) PHYSICIAN & [address] [address] SPECIMEN INFORMATION: Tissue Source: Bladder tumor Clinical Info: Neoplasm of bladder; neoplasm of prostate, hematuria Specimen Number: [id number] CPT code: 44803, 11794 x12 METHODOLOGY: Deparaffinized sections of prefer/formalin-fixed tissue or PAP/DQ stained slides are incubated with monoclonal/polyclonal antibodies/oligonucleotide probes. Localization is made via biotin free immunoperoxidase method. Appropriate controls are performed and reacted as expected. Results on target cell population are indicated in the following table: RESULTS: ANTIBODY / CLONE RESULT AE1-3 (AE1/AE3/PCK26) positive, focal and weak CK7 (OV-TL12/30) negative CK8 ([id number]) positive CK20 (KS20.8) negative CD10 (56C6) positive, focal Vimentin (V9) negative TTF-1 (8G7G3/1) negative Napsin A (Rabbit Polyclonal) negative (high background) HepPar (OCh1E5) positive, rare cells RCC (PN-15) negative PSAP (PASE/4LJ) positive CK5-6 (D5 & 1684) negative P40 (BC28) negative (high background) These tests were developed and their performance characteristics determined by [facility]. They may not have been cleared or approved by the U.S. Food and Drug Administration. The FDA has determined that such clearance or approval is not necessary. The above immunohistochemical/dualISH markers are ordered and reviewed by the pathologist. 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 See comment. LIANE:haley 04/03/19 Comment: IHC profile favors prostate primary. This case has been reviewed in consultation with Dr. Villa who concurs with the above diagnosis.
[2019-03-30 09:39] VITALS: BP 137/84; PULSE 57; RESP 16; TEMP 36.5; O2SAT 98; BMI 29.4
[2019-03-30] MEDS: Lactated Ringers 1,000 ML 100 ML IV (09:49)
[2019-03-30] MEDS: Cefazolin 2 GM in 0.9% Normal Saline 100 ML IV (10:50)
--- NOTE | 2019-03-30 11:12 | DCINST_ITS ---
Discharge Diet: Light diet - advance as tolerated Discharge Activity: Return to Normal Activity Call your doctor if your incision/area has: Continuous Slow Oozing, Sudden Increased Bleeding Call your doctor if you observe: Fever of 101 or Higher Additional Instructions: HOLD all blood thinners. Allergies/Adverse Reactions: Allergies No Known Allergies Allergy (Verified 03/30/19 09:32) Medications to take at Discharge potassium chloride ER 20 mEq tablet,extended release 20 meq PO QDAY #90 tab 02/14/18 Enzalutamide [Xtandi] 80 mg PO DAILY 01/22/19 Fluorometholone 1 drp EACH EYE BID 01/22/19 atenolol 50 mg tablet 25 mg PO QDAY #45 tab 02/14/19 furosemide 40 mg tablet 40 mg PO DAILY #90 tab 02/14/19 diltiazem ER 120 mg capsule,24 hr,extended release 120 mg PO DAILY #90 cap 02/19/19 aspirin 81 mg tablet,delayed release 81 mg PO DAILY 03/01/19 rivaroxaban 20 mg tablet 20 mg PO DAILY tab 03/01/19 Primary Care Physician: Masoud Rosa MD [Primary Care Provider] - Test Results: Test results from this visit will be discussed in further detail at your follow- up appointment, if applicable. Please Follow Up With: Robert Prather MD When: in 2 weeks, please call to make an appointment.
--- NOTE | 2019-03-30 11:15 | OP.PCM_ITS ---
Report of Operation Date of Procedure: 03/30/19 Pre-Operative Diagnosis: Bladder mass, radiation cystitis, history of prior hemorrhaging from the bladder and the prostate area Post-Operative Diagnosis: The same Surgery/Procedure Performed:: Cystoscopy, transurethral resection of a medium size bladder mass cauterization of radiation cystitis inside the bladder Description of Surgical Findings:: 73-year-old male with history of prostate cancer had radiation treatment the past is now coming back with significant bleeding hemorrhaging from the bladder and the prostate he had an episode of bleeding in the past that required hospitalization and cauterization of the bladder. On recent CAT scan he was found to have a mass within the bladder into do biopsy resection of this mass and also cauterized the bladder which is effects from radiation cystitis. 73-year-old male taken back to the operating room after smooth induction of anesthesia he was placed in dorsolithotomy position penis and testicles are prepped and draped in usual sterile fashion went into the bladder with a 24 [place] noncontinuous flow resectoscope the meatus is wide open the pendulous urethra was open the bulbar urethra was pretty scarred and narrowed was able to get through this with a 24 [place] scope very carefully but he could tell have a lot of inflammation in the bulbar urethra a look like it was starting a scarred down probably from radiation injury in the past. I then went past the prostate and the verumontanum was identified he had lobular tissue within the prosthetic channel and inside the bladder there was a lot of blood vessels that were dilated in the bladder and around the bladder neck and then there was a smooth mass looking tumor and the patient's right anterior part of the bladder. I switched over to the resectoscope and resected this mass down to the muscle fibers. Then cauterized this resection site with some but I 3 cm x 3 cm site. Then in the back of the bladder identified the right and left ureteral orifice and the trigone somewhat difficult given his abnormal looking bladder trabeculated bladder and lots of inflammation and cystitis I then cauterized the posterior aspect of the bladder cauterized carefully around the lateral aspect the bladder and the left lateral wall in the bladder neck after cauterizing to obtain all cleaned here hemostats this then the scope was removed there was no active bleeding so I did not put a catheter in and the patient will be discharged home without a catheter if he is able to urinate. Type of Anesthesia:: General Specimen's removed: bladder mass Drains: none - Admit VTE Documentation VTE Present on Admission: No VTE Mechan Device Prophylaxis: SCD's
--- NOTE | 2019-03-30 11:15 | BLA_PTH ---
PATIENT: KAREN MOYA LOC: [facility] [place] U#:[id number] AGE/SX: 73/M ROOM: RE03/30/[address]: Dr. Robert Prather MD : 1945 BED: DIS: 03/30/2019 SPEC #: [id number] RECD: 03/30/19 12:35 STATUS: CHANEL KIRK #: [id number] JOSE ALFREDO: 03/30/19 11:[address]: Robert Prather DEPT: SURGICAL PATHOLOGY RECD BY: Rashid Randall ENTERED: 03/30/19 13:08 SP TYPE: BLADDER BX OTHR DR: Dr. 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 See comment. SJ:haley 04/02/19 COMMENT Immunohistochemistry ([id number]) supports the above diagnosis and favors prostate primary. The tumor is entirely present in the lamina propria. Overlying epithelium is unremarkable. As per patient's EMR, the patient has history of prostate carcinoma treated with radiation therapy. Correlation with clinical findings and appropriate follow up are necessary. Case has been reviewed in consultation with Dr. Villa who concurs with the above diagnosis. IDC:AM MICROSCOPIC DESCRIPTION Slides are reviewed. GROSS DESCRIPTION Received in fixative is one container labeled with the patient's name and designated bladder tumor. The specimen consists of three rubbery fragments of pink-alvarado soft tissue that in aggregate measure 1.5 x 1 x 0.2 cm. The specimen is totally submitted in one cassette. / AM:haley 03/30/19 TC:0 CPT: 58842
[2019-03-30 11:18] VITALS: BP 137/84; BP 156/76; PULSE 55; RESP 16; TEMP 36.3; O2SAT 91
[2019-03-30 11:30] VITALS: BP 137/84; BP 158/83; PULSE 52; RESP 16; O2SAT 93
[2019-03-30 11:45] VITALS: BP 137/84; BP 159/82; PULSE 55; RESP 16; O2SAT 95
[2019-03-30 12:00] VITALS: BP 137/84; BP 152/78; PULSE 52; RESP 16; TEMP 36.6; O2SAT 95
[2019-03-30] MEDS: HYDROcodone Bitartrate/Apap 5/325 Tablet PO (12:45)
[2019-03-30 13:39] VITALS: BP 137/84; BP 152/74; PULSE 55; RESP 16; TEMP 37.1; O2SAT 95
== END 2019-03-30 13:52 | disposition home or self-care (01) ==
LOC: SDC 09:20 → AC 09:21
PROVIDERS: Family Provider Family Medicine; PCP Family Medicine; Referring Provider Urology; Visit Provider Urology
PROC: 0TBB8ZZ Excision of Bladder, Via Natural or Artificial Opening Endoscopic (ICD-10-PCS; CPT 52235; principal; 2019-03-30 11:05)
DX: C67.9 Malignant neoplasm of bladder, unspecified (principal); N30.41 Irradiation cystitis with hematuria; I10 Essential (primary) hypertension; F41.9 Anxiety disorder, unspecified; F32.9 Major depressive disorder, single episode, unspecified; I48.0 Paroxysmal atrial fibrillation; Y84.2 Radiological procedure and radiotherapy as the cause of abnormal reaction of the patient, or of later complication, without mention of misadventure at the time of the procedure; Z85.46 Personal history of malignant neoplasm of prostate; Z79.82 Long term (current) use of aspirin; Z79.02 Long term (current) use of antithrombotics/antiplatelets; Z79.899 Other long term (current) drug therapy
CPT/HCPCS: 00912; 52235; 88305; 88307; 88341; 88342; J7120; J2405

== ENCOUNTER → 2019-04-09 09:48 | Outpatient (CLI) | payer MEDICARE, SELFPAY ==
[2019-03-30 09:39] VITALS: BMI 29.4
[2019-04-09 10:47] LABS: PSA,Total- Diagnostic 0.25 ng/mL (0.0-4.0)
== END ==
PROVIDERS: Family Provider Family Medicine; PCP Family Medicine; Referring Provider Urology; Visit Provider Urology
DX: C61 Malignant neoplasm of prostate (principal)
CPT/HCPCS: 36415; 84153

== ENCOUNTER 2019-05-03 14:00 | Outpatient (RCR) | payer MEDICARE, SELFPAY ==
[2019-04-03 01:21] VITALS: BP 139/74; PULSE 57; RESP 16; TEMP 36.3
[2019-04-30 14:25] VITALS: BP 151/82; BP 154/84; PULSE 55; PULSE 62; RESP 16; RESP 18; TEMP 36.2; TEMP 36.7
--- NOTE | 2019-04-30 15:17 | PCM.HBO.PN ---
History of Present Illness Date of Service: 04/30/19 Presenting Chief Complaint: Radiation cystitis. KAREN MOYA is a 73 year old currently undergoing hyperbaric oxygen therapy for Radiation cystitis. Progress: Today's hyperbaric oxygen therapy session represents the first session and a planned 20 sessions at our facility. Tolerance of hyperbaric oxygen therapy: Hyperbaric oxygen therapy was administered today as per our facility's protocol. HBO therapy was administered for 90 minutes at 2 ATMs. The patient tolerated HBO therapy well, without complications or or complaints. Upon emergence from the hyperbaric oxygen chamber, the patient's vital signs remained stable. He was discharged in good condition. Past Medical History Chronic Problems (Last Reviewed 02/28/19 @ 10:56 by Pennie Loving) Chronic radiation cystitis (Chronic) Paroxysmal atrial fibrillation (Chronic) S/P cardioversion on 04/21/2016 Other secondary pulmonary hypertension (Chronic) Cardiomyopathy in other diseases classified elsewhere (Chronic) Persistent atrial fibrillation (Chronic) Hypertension (Chronic) Allergies/Adverse Reactions: Allergies No Known Allergies Allergy (Verified 03/30/19 09:32) Home Medications: Ambulatory Orders Medication Instructions Recorded potassium chloride ER 20 mEq 20 meq PO QDAY #90 tab 02/14/18 tablet,extended release Enzalutamide [Xtandi] 80 mg PO DAILY 01/22/19 Fluorometholone 1 drp EACH EYE BID 01/22/19 atenolol 50 mg tablet 25 mg PO QDAY #45 tab 02/14/19 furosemide 40 mg tablet 40 mg PO DAILY #90 tab 02/14/19 diltiazem ER 120 mg capsule,24 120 mg PO DAILY #90 cap 02/19/19 hr,extended release aspirin 81 mg tablet,delayed 81 mg PO DAILY 03/01/19 release rivaroxaban 20 mg tablet 20 mg PO DAILY tab 03/01/19 Ciprofloxacin [Cipro] 500 mg PO BID #14 tab 03/30/19 Smoking Status: Never smoker Physical Exam Vital Signs Temp Pulse Resp BP 98.1 F 62 18 151/82 H 04/30/19 14:25 04/30/19 14:25 04/30/19 14:25 04/30/19 14:25 General: Alert, Oriented x3, Cooperative HEENT: Atraumatic, TM's Clear Lungs: Clear to auscultation, Normal air movement Cardiovascular: Regular rate, Regular Rhythm Psych/Mental Status: Normal Affect, Appropriate, Alert and oriented to time, place, person, mood and affect Assessment/Plan The patient appears to be tolerating hyperbaric oxygen therapy well, which will be continued as per the patient's medical plan.
[2019-05-01 14:56] VITALS: BP 146/83; BP 147/81; PULSE 54; PULSE 56; RESP 16; TEMP 36; TEMP 36.2
--- NOTE | 2019-05-01 15:40 | PCM.HBO.PN ---
History of Present Illness Date of Service: 05/01/19 Presenting Chief Complaint: Radiation cystitis. KAREN MOYA is a 73 year old currently undergoing hyperbaric oxygen therapy for Radiation cystitis. Progress: Today's hyperbaric oxygen therapy session represents the2nd session and a planned 20 sessions at our facility. Tolerance of hyperbaric oxygen therapy: Hyperbaric oxygen therapy was administered today as per our facility's protocol. HBO therapy was administered for 90 minutes at 2 ATMs. The patient tolerated HBO therapy well, without complications or or complaints. Upon emergence from the hyperbaric oxygen chamber, the patient's vital signs remained stable. He was discharged in good condition. Past Medical History Chronic Problems (Last Reviewed 02/28/19 @ 10:56 by Pennie Loving) Chronic radiation cystitis (Chronic) Paroxysmal atrial fibrillation (Chronic) S/P cardioversion on 04/21/2016 Other secondary pulmonary hypertension (Chronic) Cardiomyopathy in other diseases classified elsewhere (Chronic) Persistent atrial fibrillation (Chronic) Hypertension (Chronic) Allergies/Adverse Reactions: Allergies No Known Allergies Allergy (Verified 03/30/19 09:32) Home Medications: Ambulatory Orders Medication Instructions Recorded potassium chloride ER 20 mEq 20 meq PO QDAY #90 tab 02/14/18 tablet,extended release Enzalutamide [Xtandi] 80 mg PO DAILY 01/22/19 Fluorometholone 1 drp EACH EYE BID 01/22/19 atenolol 50 mg tablet 25 mg PO QDAY #45 tab 02/14/19 furosemide 40 mg tablet 40 mg PO DAILY #90 tab 02/14/19 diltiazem ER 120 mg capsule,24 120 mg PO DAILY #90 cap 02/19/19 hr,extended release aspirin 81 mg tablet,delayed 81 mg PO DAILY 03/01/19 release rivaroxaban 20 mg tablet 20 mg PO DAILY tab 03/01/19 Ciprofloxacin [Cipro] 500 mg PO BID #14 tab 03/30/19 Smoking Status: Never smoker Physical Exam Vital Signs Temp Pulse Resp BP 97.1 F L 56 L 16 146/83 H 05/01/19 14:56 05/01/19 14:56 05/01/19 14:56 05/01/19 14:56 General: Alert, Oriented x3, Cooperative, No apparent distress HEENT: Atraumatic, TM's Clear Lungs: Clear to auscultation, Normal air movement Cardiovascular: Regular rate, Regular Rhythm Psych/Mental Status: Normal Affect, Appropriate, Alert and oriented to time, place, person, mood and affect Assessment/Plan The patient appears to be tolerating hyperbaric oxygen therapy well, which will be continued as per the patient's medical plan.
[2019-05-02 14:41] VITALS: BP 131/67; BP 143/81; PULSE 57; PULSE 60; RESP 16; TEMP 36.4; TEMP 36.7
--- NOTE | 2019-05-02 16:25 | PCM.HBO.PN ---
History of Present Illness Date of Service: 05/02/19 Presenting Chief Complaint: Radiation cystitis. KAREN MOYA is a 73 year old currently undergoing hyperbaric oxygen therapy for Radiation cystitis. Progress: Today's hyperbaric oxygen therapy session represents the 3rdd session and a planned 20 sessions at our facility. Tolerance of hyperbaric oxygen therapy: Hyperbaric oxygen therapy was administered today as per our facility's protocol. HBO therapy was administered for 90 minutes at 2 ATMs. The patient tolerated HBO therapy well, without complications or or complaints. Upon emergence from the hyperbaric oxygen chamber, the patient's vital signs remained stable. Upon reexamination the patient did have what appears to be barotrauma to the right tympanic membrane. He was advised to follow up with ENT and we will try to facilitate an appointment for him. He had no complaints, denies any pain, pressure, discomfort of any kind. He was discharged in good condition. Recommend that the patient hold off on any further HBO treatments until he has been evaluated by ENT and given approval to continue. Past Medical History Chronic Problems (Last Reviewed 02/28/19 @ 10:56 by Pennie Loving) Chronic radiation cystitis (Chronic) Paroxysmal atrial fibrillation (Chronic) S/P cardioversion on 04/21/2016 Other secondary pulmonary hypertension (Chronic) Cardiomyopathy in other diseases classified elsewhere (Chronic) Persistent atrial fibrillation (Chronic) Hypertension (Chronic) Allergies/Adverse Reactions: Allergies No Known Allergies Allergy (Verified 03/30/19 09:32) Home Medications: Ambulatory Orders Medication Instructions Recorded potassium chloride ER 20 mEq 20 meq PO QDAY #90 tab 02/14/18 tablet,extended release Enzalutamide [Xtandi] 80 mg PO DAILY 01/22/19 Fluorometholone 1 drp EACH EYE BID 01/22/19 atenolol 50 mg tablet 25 mg PO QDAY #45 tab 02/14/19 furosemide 40 mg tablet 40 mg PO DAILY #90 tab 02/14/19 diltiazem ER 120 mg capsule,24 120 mg PO DAILY #90 cap 02/19/19 hr,extended release aspirin 81 mg tablet,delayed 81 mg PO DAILY 03/01/19 release rivaroxaban 20 mg tablet 20 mg PO DAILY tab 03/01/19 Ciprofloxacin [Cipro] 500 mg PO BID #14 tab 03/30/19 Smoking Status: Never smoker Physical Exam Vital Signs Temp Pulse Resp BP 98.0 F 57 L 16 131/67 H 05/02/19 14:41 05/02/19 14:41 05/02/19 14:41 05/02/19 14:41 General: Alert, Oriented x3, Cooperative, No apparent distress HEENT: Atraumatic, TM's Clear Lungs: Clear to auscultation, Normal air movement Cardiovascular: Regular rate, Regular Rhythm Psych/Mental Status: Normal Affect, Appropriate, Alert and oriented to time, place, person, mood and affect Assessment/Plan Sending patient for ENT evaluation. Hold on hyperbaric oxygen therapy treatments until ENT can evaluate and provide recommendations. Patient understands and is agreeable with this plan.
[2019-05-03 15:30] VITALS: BP 141/83; PULSE 57; RESP 16; TEMP 36.4
--- NOTE | 2019-05-03 20:48 | PCM.HBO.PN ---
History of Present Illness Date of Service: 05/03/19 Presenting Chief Complaint: Radiation cystitis. KAREN MOYA is a 73 year old currently undergoing hyperbaric oxygen therapy for Radiation cystitis. Progress: Today's hyperbaric oxygen therapy session represents the 4th session and a planned 20 sessions at our facility. Tolerance of hyperbaric oxygen therapy: Hyperbaric oxygen therapy was administered today as per our facility's protocol. HBO therapy was administered for 90 minutes at 2 ATMs. The patient tolerated HBO therapy well, without complications or or complaints. Upon emergence from the hyperbaric oxygen chamber, the patient's vital signs remained stable. Upon reexamination the patient did have what appears to be barotrauma to the right tympanic membrane. He was advised to follow up with ENT. He had tympanostomy tubes placed 05/03/19 and they are open and intact and he was cleared for further HBO treatments by ENT. Past Medical History Chronic Problems (Last Reviewed 02/28/19 @ 10:56 by Pennie Loving) Chronic radiation cystitis (Chronic) Paroxysmal atrial fibrillation (Chronic) S/P cardioversion on 04/21/2016 Other secondary pulmonary hypertension (Chronic) Cardiomyopathy in other diseases classified elsewhere (Chronic) Persistent atrial fibrillation (Chronic) Hypertension (Chronic) Allergies/Adverse Reactions: Allergies No Known Allergies Allergy (Verified 03/30/19 09:32) Home Medications: Ambulatory Orders Medication Instructions Recorded potassium chloride ER 20 mEq 20 meq PO QDAY #90 tab 02/14/18 tablet,extended release Enzalutamide [Xtandi] 80 mg PO DAILY 01/22/19 Fluorometholone 1 drp EACH EYE BID 01/22/19 atenolol 50 mg tablet 25 mg PO QDAY #45 tab 02/14/19 furosemide 40 mg tablet 40 mg PO DAILY #90 tab 02/14/19 diltiazem ER 120 mg capsule,24 120 mg PO DAILY #90 cap 02/19/19 hr,extended release aspirin 81 mg tablet,delayed 81 mg PO DAILY 03/01/19 release rivaroxaban 20 mg tablet 20 mg PO DAILY tab 03/01/19 Ciprofloxacin [Cipro] 500 mg PO BID #14 tab 03/30/19 Smoking Status: Never smoker Physical Exam Vital Signs Temp Pulse Resp BP 97.6 F L 57 L 16 141/83 H 05/03/19 15:30 05/03/19 15:30 05/03/19 15:30 05/03/19 15:30 General: Alert, Oriented x3, Cooperative, No apparent distress HEENT: Atraumatic, PERRLA, Normocephalic, - - Oral tympanostomy tubes intact, small amount of bloody drainage in the external ear canal Lungs: Clear to auscultation, Normal air movement Cardiovascular: Regular rate, Normal S1, Normal S2, No murmurs Psych/Mental Status: Normal Affect, Alert and oriented to time, place, person, mood and affect Assessment/Plan Patient tolerated hyperbaric therapy well and will continue per the treatment plan.
== END 2019-05-03 23:59 ==
LOC: WC 14:00
PROVIDERS: Family Provider Family Medicine; PCP Family Medicine; Referring Provider Internal Medicine; Visit Provider Internal Medicine
DX: N30.40 Irradiation cystitis without hematuria (principal); Z85.46 Personal history of malignant neoplasm of prostate; I48.0 Paroxysmal atrial fibrillation; I48.19 Other persistent atrial fibrillation; I27.20 Pulmonary hypertension, unspecified; I10 Essential (primary) hypertension; Z79.899 Other long term (current) drug therapy; Z79.01 Long term (current) use of anticoagulants; Z79.82 Long term (current) use of aspirin
CPT/HCPCS: 99183; G0277

== ENCOUNTER → 2019-05-29 13:04 | Outpatient (CLI) | payer MEDICARE, SELFPAY ==
[2019-05-29 14:25] LABS: PSA,Total- Diagnostic 0.11 ng/mL (0.0-4.0)
== END ==
PROVIDERS: Family Provider Family Medicine; PCP Family Medicine; Referring Provider Urology; Visit Provider Urology
DX: C61 Malignant neoplasm of prostate (principal)
CPT/HCPCS: 36415; 84153

== ENCOUNTER 2019-05-29 14:15 | Outpatient (RCR) | payer MEDICARE, SELFPAY ==
[2019-05-04 01:17] VITALS: BP 141/83; PULSE 57; RESP 16; TEMP 36.4
[2019-05-04 17:00] VITALS: BP 146/83; BP 146/85; PULSE 69; PULSE 84; RESP 16; TEMP 36.9; TEMP 37
--- NOTE | 2019-05-04 19:38 | PCM.HBO.PN ---
History of Present Illness Date of Service: 05/04/19 Presenting Chief Complaint: Radiation cystitis. KAREN MOYA is a 73 year old currently undergoing hyperbaric oxygen therapy for radiation cystitis s/p radiation for prostate cancer. Progress: Today's hyperbaric oxygen therapy session represents the 5th session of a total of 20 planned sessions at our facility. Tolerance of hyperbaric oxygen therapy: Hyperbaric oxygen therapy was administered as per our facility's protocol. Prior to his treatment his ears were examined at both myringotomy tubes were patent and in place with dried blood present in his EAC. He denied any pain or discomfort. Tubes were placed on 05/03/19 by ENT. HBO therapy was administered for 90 minutes at 2.0 ATMs. The patient tolerated HBO therapy well, without complications or complaints. Upon emergence from the hyperbaric oxygen chamber, the patient's vital signs remained stable. Past Medical History Chronic Problems (Last Reviewed 02/28/19 @ 10:56 by Pennie Loving) Chronic radiation cystitis (Chronic) Paroxysmal atrial fibrillation (Chronic) S/P cardioversion on 04/21/2016 Other secondary pulmonary hypertension (Chronic) Cardiomyopathy in other diseases classified elsewhere (Chronic) Persistent atrial fibrillation (Chronic) Hypertension (Chronic) Allergies/Adverse Reactions: Allergies No Known Allergies Allergy (Verified 03/30/19 09:32) Home Medications: Ambulatory Orders Medication Instructions Recorded potassium chloride ER 20 mEq 20 meq PO QDAY #90 tab 02/14/18 tablet,extended release Enzalutamide [Xtandi] 80 mg PO DAILY 01/22/19 Fluorometholone 1 drp EACH EYE BID 01/22/19 atenolol 50 mg tablet 25 mg PO QDAY #45 tab 02/14/19 furosemide 40 mg tablet 40 mg PO DAILY #90 tab 02/14/19 diltiazem ER 120 mg capsule,24 120 mg PO DAILY #90 cap 02/19/19 hr,extended release aspirin 81 mg tablet,delayed 81 mg PO DAILY 03/01/19 release rivaroxaban 20 mg tablet 20 mg PO DAILY tab 03/01/19 Ciprofloxacin [Cipro] 500 mg PO BID #14 tab 03/30/19 Maternal Family History: Family History (Last Reviewed 02/28/19 @ 10:56 by Pennie Loving) Brother Atrial fibrillation Family History: No pertinent history Paternal Family History: Family History (Last Reviewed 02/28/19 @ 10:56 by Pennie Loving) Brother Atrial fibrillation Family History: No pertinent history Smoking Status: Never smoker Tobacco Use: Non-smoker Alcohol: None Drugs: None Physical Exam Vital Signs Temp Pulse Resp BP 97.6 F L 57 L 16 141/83 H 05/04/19 01:17 05/04/19 01:17 05/04/19 01:17 05/04/19 01:17 General: Alert, Oriented x3, Cooperative, No apparent distress Psych/Mental Status: Normal Affect, Appropriate Assessment/Plan Active Problems (Last Reviewed 02/28/19 @ 10:56 by Pennie Loving) History of prostate cancer (Acute) Chronic radiation cystitis (Chronic) Hematuria (Acute) Patient tolerated hyperbaric oxygen therapy well and will continue per the patient's medical treatment plan.
--- NOTE | 2019-05-08 12:22 | PCM.HBO.PN ---
History of Present Illness Date of Service: 05/08/19 Presenting Chief Complaint: Radiation cystitis. KAREN MOYA is a 73 year old currently undergoing hyperbaric oxygen therapy for radiation cystitis s/p radiation for prostate cancer. Progress: Today's hyperbaric oxygen therapy session represents the 7th session of a total of 20 planned sessions at our facility. Tolerance of hyperbaric oxygen therapy: Hyperbaric oxygen therapy was administered as per our facility's protocol. Myringotomy tubes were placed several days ago, on, 05/03/19, and the patient's HBO treatment sessions have been tolerated well since that time. He denies any pain or discomfort. Tubes were placed on 05/03/19 by ENT. HBO therapy was administered for 90 minutes at 2.0 ATMs, with no air breaks. The patient tolerated HBO therapy well, without complications or complaints. Upon emergence from the hyperbaric oxygen chamber, the patient's vital signs remained stable. Past Medical History Chronic Problems (Last Reviewed 02/28/19 @ 10:56 by Pennie Loving) Chronic radiation cystitis (Chronic) Paroxysmal atrial fibrillation (Chronic) S/P cardioversion on 04/21/2016 Other secondary pulmonary hypertension (Chronic) Cardiomyopathy in other diseases classified elsewhere (Chronic) Persistent atrial fibrillation (Chronic) Hypertension (Chronic) Allergies/Adverse Reactions: Allergies No Known Allergies Allergy (Verified 03/30/19 09:32) Home Medications: Ambulatory Orders Medication Instructions Recorded potassium chloride ER 20 mEq 20 meq PO QDAY #90 tab 02/14/18 tablet,extended release Enzalutamide [Xtandi] 80 mg PO DAILY 01/22/19 Fluorometholone 1 drp EACH EYE BID 01/22/19 atenolol 50 mg tablet 25 mg PO QDAY #45 tab 02/14/19 furosemide 40 mg tablet 40 mg PO DAILY #90 tab 02/14/19 diltiazem ER 120 mg capsule,24 120 mg PO DAILY #90 cap 02/19/19 hr,extended release aspirin 81 mg tablet,delayed 81 mg PO DAILY 03/01/19 release rivaroxaban 20 mg tablet 20 mg PO DAILY tab 03/01/19 Ciprofloxacin [Cipro] 500 mg PO BID #14 tab 03/30/19 Maternal Family History: Family History (Last Reviewed 02/28/19 @ 10:56 by Pennie Loving) Brother Atrial fibrillation Family History: No pertinent history Paternal Family History: Family History (Last Reviewed 02/28/19 @ 10:56 by Pennie Loving) Brother Atrial fibrillation Family History: No pertinent history Smoking Status: Never smoker Tobacco Use: Non-smoker Alcohol: None Drugs: None Physical Exam Vital Signs Temp Pulse Resp BP 98.5 F 84 16 146/85 H 05/04/19 17:00 05/04/19 17:00 05/04/19 17:00 05/04/19 17:00 General: Alert, Oriented x3, Cooperative, No apparent distress, Well developed, Well nourished HEENT: Atraumatic, PERRLA, EOMI, Normocephalic Lungs: Normal air movement Psych/Mental Status: Normal Affect, Appropriate, Alert and oriented to time, place, person, mood and affect Assessment/Plan The patient appears to be tolerating hyperbaric oxygen therapy well, which will be continued as per the patient's medical plan.
[2019-05-09 14:10] VITALS: BP 128/80; BP 134/82; PULSE 62; PULSE 64; RESP 16; TEMP 36.3; TEMP 36.4
--- NOTE | 2019-05-10 17:13 | PCM.HBO.PN ---
History of Present Illness Date of Service: 05/10/19 Presenting Chief Complaint: Radiation cystitis. KAREN MOYA is a 73 year old currently undergoing hyperbaric oxygen therapy for radiation cystitis s/p radiation for prostate cancer. Progress: Today's hyperbaric oxygen therapy session represents the 8th session of a total of 20 planned sessions at our facility. Tolerance of hyperbaric oxygen therapy: Hyperbaric oxygen therapy was administered as per our facility's protocol. Myringotomy tubes were placed several days ago, on, 05/03/19, and the patient's HBO treatment sessions have been tolerated well since that time. He denies any pain or discomfort. Tubes were placed on 05/03/19 by ENT. HBO therapy was administered for 90 minutes at 2.0 ATMs, with no air breaks. The patient tolerated HBO therapy well, without complications or complaints. Upon emergence from the hyperbaric oxygen chamber, the patient's vital signs remained stable. Past Medical History Chronic Problems (Last Reviewed 02/28/19 @ 10:56 by Pennie Loving) Chronic radiation cystitis (Chronic) Paroxysmal atrial fibrillation (Chronic) S/P cardioversion on 04/21/2016 Other secondary pulmonary hypertension (Chronic) Cardiomyopathy in other diseases classified elsewhere (Chronic) Persistent atrial fibrillation (Chronic) Hypertension (Chronic) Allergies/Adverse Reactions: Allergies No Known Allergies Allergy (Verified 03/30/19 09:32) Home Medications: Ambulatory Orders Medication Instructions Recorded potassium chloride ER 20 mEq 20 meq PO QDAY #90 tab 02/14/18 tablet,extended release Enzalutamide [Xtandi] 80 mg PO DAILY 01/22/19 Fluorometholone 1 drp EACH EYE BID 01/22/19 atenolol 50 mg tablet 25 mg PO QDAY #45 tab 02/14/19 furosemide 40 mg tablet 40 mg PO DAILY #90 tab 02/14/19 diltiazem ER 120 mg capsule,24 120 mg PO DAILY #90 cap 02/19/19 hr,extended release aspirin 81 mg tablet,delayed 81 mg PO DAILY 03/01/19 release rivaroxaban 20 mg tablet 20 mg PO DAILY tab 03/01/19 Ciprofloxacin [Cipro] 500 mg PO BID #14 tab 03/30/19 Maternal Family History: Family History (Last Reviewed 02/28/19 @ 10:56 by Pennie Loving) Brother Atrial fibrillation Family History: No pertinent history Paternal Family History: Family History (Last Reviewed 02/28/19 @ 10:56 by Pennie Loving) Brother Atrial fibrillation Family History: No pertinent history Smoking Status: Never smoker Tobacco Use: Non-smoker Alcohol: None Drugs: None Physical Exam Vital Signs Temp Pulse Resp BP 97.6 F L 64 16 128/80 H 05/09/19 14:10 05/09/19 14:10 05/09/19 14:10 05/09/19 14:10 General: Alert, Oriented x3, Cooperative, No apparent distress HEENT: Atraumatic, PERRLA, EOMI, - - Bilateral tympanostomy tubes in place Lungs: Clear to auscultation, Normal air movement Cardiovascular: Regular rate, Regular Rhythm, Normal S1, Normal S2 Psych/Mental Status: Normal Affect, Appropriate, Alert and oriented to time, place, person, mood and affect Assessment/Plan The patient appears to be tolerating hyperbaric oxygen therapy well, which will be continued as per the patient's medical plan.
[2019-05-11 08:52] VITALS: BP 136/75; BP 136/78; PULSE 51; PULSE 55; RESP 16; TEMP 36.4; TEMP 36.8
[2019-05-11 14:46] VITALS: BP 142/83; BP 151/80; PULSE 53; PULSE 64; RESP 16; TEMP 36.1; TEMP 36.3
--- NOTE | 2019-05-11 19:21 | PCM.HBO.PN ---
History of Present Illness Date of Service: 05/11/19 Presenting Chief Complaint: Radiation cystitis. KAREN MOYA is a 73 year old currently undergoing hyperbaric oxygen therapy for radiation cystitis s/p radiation for prostate cancer. Progress: Today's hyperbaric oxygen therapy session represents the 8th session of a total of 20 planned sessions at our facility. Tolerance of hyperbaric oxygen therapy: Hyperbaric oxygen therapy was administered as per our facility's protocol. Myringotomy tubes were placed on 05/03/19 by ENT, and the patient's HBO treatment sessions have been tolerated well since that time. He denies any pain or discomfort. HBO therapy was administered for 90 minutes at 2.0 ATMs, with no air breaks. The patient tolerated HBO therapy well, without complications or complaints. Upon emergence from the hyperbaric oxygen chamber, the patient's vital signs remained stable. Past Medical History Chronic Problems (Last Reviewed 02/28/19 @ 10:56 by Pennie Loving) Chronic radiation cystitis (Chronic) Paroxysmal atrial fibrillation (Chronic) S/P cardioversion on 04/21/2016 Other secondary pulmonary hypertension (Chronic) Cardiomyopathy in other diseases classified elsewhere (Chronic) Persistent atrial fibrillation (Chronic) Hypertension (Chronic) Allergies/Adverse Reactions: Allergies No Known Allergies Allergy (Verified 03/30/19 09:32) Home Medications: Ambulatory Orders Medication Instructions Recorded potassium chloride ER 20 mEq 20 meq PO QDAY #90 tab 02/14/18 tablet,extended release Enzalutamide [Xtandi] 80 mg PO DAILY 01/22/19 Fluorometholone 1 drp EACH EYE BID 01/22/19 atenolol 50 mg tablet 25 mg PO QDAY #45 tab 02/14/19 furosemide 40 mg tablet 40 mg PO DAILY #90 tab 02/14/19 diltiazem ER 120 mg capsule,24 120 mg PO DAILY #90 cap 02/19/19 hr,extended release aspirin 81 mg tablet,delayed 81 mg PO DAILY 03/01/19 release rivaroxaban 20 mg tablet 20 mg PO DAILY tab 03/01/19 Ciprofloxacin [Cipro] 500 mg PO BID #14 tab 03/30/19 Maternal Family History: Family History (Last Reviewed 02/28/19 @ 10:56 by Pennie Loving) Brother Atrial fibrillation Family History: No pertinent history Paternal Family History: Family History (Last Reviewed 02/28/19 @ 10:56 by Pennie Loving) Brother Atrial fibrillation Family History: No pertinent history Smoking Status: Never smoker Tobacco Use: Non-smoker Alcohol: None Drugs: None Physical Exam Vital Signs Temp Pulse Resp BP 97.4 F L 64 16 142/83 H 05/11/19 14:46 05/11/19 14:46 05/11/19 14:46 05/11/19 14:46 General: Alert, Oriented x3, Cooperative, No apparent distress Psych/Mental Status: Normal Affect, Appropriate Assessment/Plan Active Problems (Last Reviewed 02/28/19 @ 10:56 by Pennie Loving) History of prostate cancer (Acute) Chronic radiation cystitis (Chronic) Hematuria (Acute) The patient appears to be tolerating hyperbaric oxygen therapy well, which will be continued as per the patient's medical plan.
--- NOTE | 2019-05-14 14:45 | PCM.HBO.PN ---
History of Present Illness Date of Service: 05/14/19 Presenting Chief Complaint: Radiation cystitis. KAREN MOYA is a 73 year old currently undergoing hyperbaric oxygen therapy for radiation cystitis s/p radiation for prostate cancer. Progress: Today's hyperbaric oxygen therapy session represents the 9th session of a total of 20 planned sessions at our facility. Tolerance of hyperbaric oxygen therapy: Hyperbaric oxygen therapy was administered as per our facility's protocol. Myringotomy tubes were placed on 05/03/19 by ENT, and the patient's HBO treatment sessions have been tolerated well since that time. He denies any pain or discomfort. HBO therapy was administered for 90 minutes at 2.0 ATMs, with no air breaks. The patient tolerated HBO therapy well, without complications or complaints. Upon emergence from the hyperbaric oxygen chamber, the patient's vital signs remained stable. Past Medical History Chronic Problems (Last Reviewed 02/28/19 @ 10:56 by Pennie Loving) Chronic radiation cystitis (Chronic) Paroxysmal atrial fibrillation (Chronic) S/P cardioversion on 04/21/2016 Other secondary pulmonary hypertension (Chronic) Cardiomyopathy in other diseases classified elsewhere (Chronic) Persistent atrial fibrillation (Chronic) Hypertension (Chronic) Allergies/Adverse Reactions: Allergies No Known Allergies Allergy (Verified 03/30/19 09:32) Home Medications: Ambulatory Orders Medication Instructions Recorded potassium chloride ER 20 mEq 20 meq PO QDAY #90 tab 02/14/18 tablet,extended release Enzalutamide [Xtandi] 80 mg PO DAILY 01/22/19 Fluorometholone 1 drp EACH EYE BID 01/22/19 atenolol 50 mg tablet 25 mg PO QDAY #45 tab 02/14/19 furosemide 40 mg tablet 40 mg PO DAILY #90 tab 02/14/19 diltiazem ER 120 mg capsule,24 120 mg PO DAILY #90 cap 02/19/19 hr,extended release aspirin 81 mg tablet,delayed 81 mg PO DAILY 03/01/19 release rivaroxaban 20 mg tablet 20 mg PO DAILY tab 03/01/19 Ciprofloxacin [Cipro] 500 mg PO BID #14 tab 03/30/19 Maternal Family History: Family History (Last Reviewed 02/28/19 @ 10:56 by Pennie Loving) Brother Atrial fibrillation Family History: No pertinent history Paternal Family History: Family History (Last Reviewed 02/28/19 @ 10:56 by Pennie Loving) Brother Atrial fibrillation Family History: No pertinent history Smoking Status: Never smoker Tobacco Use: Non-smoker Alcohol: None Drugs: None Physical Exam Vital Signs Temp Pulse Resp BP 97.4 F L 64 16 142/83 H 05/11/19 14:46 05/11/19 14:46 05/11/19 14:46 05/11/19 14:46 General: Alert, Oriented x3, Cooperative, No apparent distress HEENT: Atraumatic, TM's Clear Lungs: Clear to auscultation, Normal air movement Cardiovascular: Regular rate, Regular Rhythm Psych/Mental Status: Normal Affect, Appropriate, Alert and oriented to time, place, person, mood and affect Assessment/Plan The patient appears to be tolerating hyperbaric oxygen therapy well, which will be continued as per the patient's medical plan.
[2019-05-14 15:06] VITALS: BP 128/68; BP 153/74; PULSE 53; PULSE 55; RESP 16; RESP 18; TEMP 36.4; TEMP 36.7
[2019-05-15 05:30] VITALS: BP 139/85; PULSE 51; RESP 16; TEMP 36.4
--- NOTE | 2019-05-15 14:38 | PCM.HBO.PN ---
History of Present Illness Date of Service: 05/15/19 Presenting Chief Complaint: Radiation cystitis. KAREN MOYA is a 73 year old currently undergoing hyperbaric oxygen therapy for radiation cystitis s/p radiation for prostate cancer. Progress: Today's hyperbaric oxygen therapy session represents the 10th session of a total of 20 planned sessions at our facility. Tolerance of hyperbaric oxygen therapy: Hyperbaric oxygen therapy was administered as per our facility's protocol. Myringotomy tubes were placed on 05/03/19 by ENT, and the patient's HBO treatment sessions have been tolerated well since that time. He denies any pain or discomfort. HBO therapy was administered for 90 minutes at 2.0 ATMs, with no air breaks. The patient tolerated HBO therapy well, without complications or complaints. Upon emergence from the hyperbaric oxygen chamber, the patient's vital signs remained stable. Past Medical History Chronic Problems (Last Reviewed 02/28/19 @ 10:56 by Pennie Loving) Chronic radiation cystitis (Chronic) Paroxysmal atrial fibrillation (Chronic) S/P cardioversion on 04/21/2016 Other secondary pulmonary hypertension (Chronic) Cardiomyopathy in other diseases classified elsewhere (Chronic) Persistent atrial fibrillation (Chronic) Hypertension (Chronic) Allergies/Adverse Reactions: Allergies No Known Allergies Allergy (Verified 03/30/19 09:32) Home Medications: Ambulatory Orders Medication Instructions Recorded potassium chloride ER 20 mEq 20 meq PO QDAY #90 tab 02/14/18 tablet,extended release Enzalutamide [Xtandi] 80 mg PO DAILY 01/22/19 Fluorometholone 1 drp EACH EYE BID 01/22/19 atenolol 50 mg tablet 25 mg PO QDAY #45 tab 02/14/19 furosemide 40 mg tablet 40 mg PO DAILY #90 tab 02/14/19 diltiazem ER 120 mg capsule,24 120 mg PO DAILY #90 cap 02/19/19 hr,extended release aspirin 81 mg tablet,delayed 81 mg PO DAILY 03/01/19 release rivaroxaban 20 mg tablet 20 mg PO DAILY tab 03/01/19 Ciprofloxacin [Cipro] 500 mg PO BID #14 tab 03/30/19 Maternal Family History: Family History (Last Reviewed 02/28/19 @ 10:56 by Pennie Loving) Brother Atrial fibrillation Family History: No pertinent history Paternal Family History: Family History (Last Reviewed 02/28/19 @ 10:56 by Pennie Loving) Brother Atrial fibrillation Family History: No pertinent history Smoking Status: Never smoker Tobacco Use: Non-smoker Alcohol: None Drugs: None Physical Exam Vital Signs Temp Pulse Resp BP 98.0 F 53 L 18 128/68 H 05/14/19 15:06 05/14/19 15:06 05/14/19 15:06 05/14/19 15:06 General: Alert, Oriented x3, Cooperative, No apparent distress HEENT: Atraumatic, TM's Clear - left ear with some dry red drainage Lungs: Clear to auscultation, Normal air movement Cardiovascular: Regular rate, Regular Rhythm Psych/Mental Status: Normal Affect, Appropriate, Alert and oriented to time, place, person, mood and affect Assessment/Plan The patient appears to be tolerating hyperbaric oxygen therapy well, which will be continued as per the patient's medical plan.
[2019-05-16 16:28] VITALS: BP 139/73; BP 143/82; PULSE 50; PULSE 53; RESP 16; RESP 18; TEMP 36.3
[2019-05-17 14:29] VITALS: BP 138/85; BP 146/77; PULSE 50; PULSE 54; RESP 16; RESP 18; TEMP 36.3; TEMP 36.5
--- NOTE | 2019-05-17 17:04 | PCM.HBO.PN ---
History of Present Illness Date of Service: 05/17/19 Presenting Chief Complaint: Radiation cystitis. KAREN MOYA is a 73 year old currently undergoing hyperbaric oxygen therapy for radiation cystitis s/p radiation for prostate cancer. Progress: Today's hyperbaric oxygen therapy session represents the 11th session of a total of 20 planned sessions at our facility. Tolerance of hyperbaric oxygen therapy: Hyperbaric oxygen therapy was administered as per our facility's protocol. Myringotomy tubes were placed on 05/03/19 by ENT, and the patient's HBO treatment sessions have been tolerated well since that time. He denies any pain or discomfort. HBO therapy was administered for 90 minutes at 2.0 ATMs, with no air breaks. The patient tolerated HBO therapy well, without complications or complaints. Upon emergence from the hyperbaric oxygen chamber, the patient's vital signs remained stable. Past Medical History Chronic Problems (Last Reviewed 02/28/19 @ 10:56 by Pennie Loving) Chronic radiation cystitis (Chronic) Paroxysmal atrial fibrillation (Chronic) S/P cardioversion on 04/21/2016 Other secondary pulmonary hypertension (Chronic) Cardiomyopathy in other diseases classified elsewhere (Chronic) Persistent atrial fibrillation (Chronic) Hypertension (Chronic) Allergies/Adverse Reactions: Allergies No Known Allergies Allergy (Verified 03/30/19 09:32) Home Medications: Ambulatory Orders Medication Instructions Recorded potassium chloride ER 20 mEq 20 meq PO QDAY #90 tab 02/14/18 tablet,extended release Enzalutamide [Xtandi] 80 mg PO DAILY 01/22/19 Fluorometholone 1 drp EACH EYE BID 01/22/19 atenolol 50 mg tablet 25 mg PO QDAY #45 tab 02/14/19 furosemide 40 mg tablet 40 mg PO DAILY #90 tab 02/14/19 diltiazem ER 120 mg capsule,24 120 mg PO DAILY #90 cap 02/19/19 hr,extended release aspirin 81 mg tablet,delayed 81 mg PO DAILY 03/01/19 release rivaroxaban 20 mg tablet 20 mg PO DAILY tab 03/01/19 Ciprofloxacin [Cipro] 500 mg PO BID #14 tab 03/30/19 Maternal Family History: Family History (Last Reviewed 02/28/19 @ 10:56 by Pennie Loving) Brother Atrial fibrillation Family History: No pertinent history Paternal Family History: Family History (Last Reviewed 02/28/19 @ 10:56 by Pennie Loving) Brother Atrial fibrillation Family History: No pertinent history Smoking Status: Never smoker Tobacco Use: Non-smoker Alcohol: None Drugs: None Physical Exam Vital Signs Temp Pulse Resp BP 97.7 F L 54 L 18 146/77 H 05/17/19 14:29 05/17/19 14:29 05/17/19 14:29 05/17/19 14:29 General: Alert, Oriented x3, Cooperative, No apparent distress, Well developed HEENT: Atraumatic, PERRLA, EOMI, Normocephalic, TM's Clear, - - Bilateral tympanostomy tubes present Lungs: Clear to auscultation, Normal air movement, No rhonchi, No wheeze, No rales Cardiovascular: Regular rate, Regular Rhythm Psych/Mental Status: Normal Affect, Appropriate, Alert and oriented to time, place, person, mood and affect Assessment/Plan The patient appears to be tolerating hyperbaric oxygen therapy well, which will be continued as per the patient's medical plan.
[2019-05-18 14:42] VITALS: BP 135/77; BP 156/87; PULSE 51; PULSE 62; RESP 16; RESP 18; TEMP 36.1; TEMP 36.5
--- NOTE | 2019-05-18 18:57 | PCM.HBO.PN ---
History of Present Illness Date of Service: 05/18/19 Presenting Chief Complaint: Radiation cystitis. KAREN MOYA is a 73 year old currently undergoing hyperbaric oxygen therapy for radiation cystitis s/p radiation for prostate cancer. Progress: Today's hyperbaric oxygen therapy session represents the 13th session of a total of 20 planned sessions at our facility. Tolerance of hyperbaric oxygen therapy: Hyperbaric oxygen therapy was administered as per our facility's protocol. Myringotomy tubes were placed on 05/03/19 by ENT, and the patient's HBO treatment sessions have been tolerated well since that time. He denies any pain or discomfort. HBO therapy was administered for 90 minutes at 2.0 ATMs, with no air breaks. The patient tolerated HBO therapy well, without complications or complaints. Upon emergence from the hyperbaric oxygen chamber, the patient's vital signs remained stable. Past Medical History Chronic Problems (Last Reviewed 02/28/19 @ 10:56 by Pennie Loving) Chronic radiation cystitis (Chronic) Paroxysmal atrial fibrillation (Chronic) S/P cardioversion on 04/21/2016 Other secondary pulmonary hypertension (Chronic) Cardiomyopathy in other diseases classified elsewhere (Chronic) Persistent atrial fibrillation (Chronic) Hypertension (Chronic) Allergies/Adverse Reactions: Allergies No Known Allergies Allergy (Verified 03/30/19 09:32) Home Medications: Ambulatory Orders Medication Instructions Recorded potassium chloride ER 20 mEq 20 meq PO QDAY #90 tab 02/14/18 tablet,extended release Enzalutamide [Xtandi] 80 mg PO DAILY 01/22/19 Fluorometholone 1 drp EACH EYE BID 01/22/19 atenolol 50 mg tablet 25 mg PO QDAY #45 tab 02/14/19 furosemide 40 mg tablet 40 mg PO DAILY #90 tab 02/14/19 diltiazem ER 120 mg capsule,24 120 mg PO DAILY #90 cap 02/19/19 hr,extended release aspirin 81 mg tablet,delayed 81 mg PO DAILY 03/01/19 release rivaroxaban 20 mg tablet 20 mg PO DAILY tab 03/01/19 Ciprofloxacin [Cipro] 500 mg PO BID #14 tab 03/30/19 Maternal Family History: Family History (Last Reviewed 02/28/19 @ 10:56 by Pennie Loving) Brother Atrial fibrillation Family History: No pertinent history Paternal Family History: Family History (Last Reviewed 02/28/19 @ 10:56 by Pennie Loving) Brother Atrial fibrillation Family History: No pertinent history Smoking Status: Never smoker Tobacco Use: Non-smoker Alcohol: None Drugs: None Physical Exam Vital Signs Temp Pulse Resp BP 97.7 F L 62 18 135/77 H 05/18/19 14:42 05/18/19 14:42 05/18/19 14:42 05/18/19 14:42 General: Alert, Oriented x3, Cooperative, No apparent distress Psych/Mental Status: Normal Affect, Appropriate Assessment/Plan Active Problems (Last Reviewed 02/28/19 @ 10:56 by Pennie Loving) History of prostate cancer (Acute) Chronic radiation cystitis (Chronic) Hematuria (Acute) The patient appears to be tolerating hyperbaric oxygen therapy well, which will be continued as per the patient's medical plan.
[2019-05-21 14:34] VITALS: BP 143/85; BP 147/71; PULSE 54; RESP 16; RESP 18; TEMP 36.2; TEMP 36.4
--- NOTE | 2019-05-21 15:11 | PCM.HBO.PN ---
History of Present Illness Date of Service: 05/21/19 Presenting Chief Complaint: Radiation cystitis. KAREN MOYA is a 73 year old currently undergoing hyperbaric oxygen therapy for radiation cystitis s/p radiation for prostate cancer. Progress: Today's hyperbaric oxygen therapy session represents the 14th session of a total of 20 planned sessions at our facility. Tolerance of hyperbaric oxygen therapy: Hyperbaric oxygen therapy was administered as per our facility's protocol. Myringotomy tubes were placed on 05/03/19 by ENT, and the patient's HBO treatment sessions have been tolerated well since that time. He denies any pain or discomfort. HBO therapy was administered for 90 minutes at 2.0 ATMs, with no air breaks. The patient tolerated HBO therapy well, without complications or complaints. Upon emergence from the hyperbaric oxygen chamber, the patient's vital signs remained stable. Past Medical History Chronic Problems (Last Reviewed 02/28/19 @ 10:56 by Pennie Loving) Chronic radiation cystitis (Chronic) Paroxysmal atrial fibrillation (Chronic) S/P cardioversion on 04/21/2016 Other secondary pulmonary hypertension (Chronic) Cardiomyopathy in other diseases classified elsewhere (Chronic) Persistent atrial fibrillation (Chronic) Hypertension (Chronic) Allergies/Adverse Reactions: Allergies No Known Allergies Allergy (Verified 03/30/19 09:32) Home Medications: Ambulatory Orders Medication Instructions Recorded potassium chloride ER 20 mEq 20 meq PO QDAY #90 tab 02/14/18 tablet,extended release Enzalutamide [Xtandi] 80 mg PO DAILY 01/22/19 Fluorometholone 1 drp EACH EYE BID 01/22/19 atenolol 50 mg tablet 25 mg PO QDAY #45 tab 02/14/19 furosemide 40 mg tablet 40 mg PO DAILY #90 tab 02/14/19 diltiazem ER 120 mg capsule,24 120 mg PO DAILY #90 cap 02/19/19 hr,extended release aspirin 81 mg tablet,delayed 81 mg PO DAILY 03/01/19 release rivaroxaban 20 mg tablet 20 mg PO DAILY tab 03/01/19 Ciprofloxacin [Cipro] 500 mg PO BID #14 tab 03/30/19 Maternal Family History: Family History (Last Reviewed 02/28/19 @ 10:56 by Pennie Loving) Brother Atrial fibrillation Family History: No pertinent history Paternal Family History: Family History (Last Reviewed 02/28/19 @ 10:56 by Pennie Loving) Brother Atrial fibrillation Family History: No pertinent history Smoking Status: Never smoker Tobacco Use: Non-smoker Alcohol: None Drugs: None Physical Exam Vital Signs Temp Pulse Resp BP 97.5 F L 54 L 18 143/85 H 05/21/19 14:34 05/21/19 14:34 05/21/19 14:34 05/21/19 14:34 General: Alert, Oriented x3, Cooperative, No apparent distress HEENT: Atraumatic, TM's Clear - some old drainage to left ear canal, non-painful Lungs: Clear to auscultation, Normal air movement Cardiovascular: Regular rate, Regular Rhythm Psych/Mental Status: Normal Affect, Appropriate, Alert and oriented to time, place, person, mood and affect Assessment/Plan The patient appears to be tolerating hyperbaric oxygen therapy well, which will be continued as per the patient's medical plan.
--- NOTE | 2019-05-22 15:21 | PCM.HBO.PN ---
History of Present Illness Date of Service: 05/22/19 Presenting Chief Complaint: Radiation cystitis. KAREN MOYA is a 73 year old currently undergoing hyperbaric oxygen therapy for radiation cystitis s/p radiation for prostate cancer. Progress: Today's hyperbaric oxygen therapy session represents the 15th session of a total of 20 planned sessions at our facility. Tolerance of hyperbaric oxygen therapy: Hyperbaric oxygen therapy was administered as per our facility's protocol. Myringotomy tubes were placed on 05/03/19 by ENT, and the patient's HBO treatment sessions have been tolerated well since that time. He denies any pain or discomfort. HBO therapy was administered for 90 minutes at 2.0 ATMs, with no air breaks. The patient tolerated HBO therapy well, without complications or complaints. Upon emergence from the hyperbaric oxygen chamber, the patient's vital signs remained stable. Past Medical History Chronic Problems (Last Reviewed 02/28/19 @ 10:56 by Pennie Loving) Chronic radiation cystitis (Chronic) Paroxysmal atrial fibrillation (Chronic) S/P cardioversion on 04/21/2016 Other secondary pulmonary hypertension (Chronic) Cardiomyopathy in other diseases classified elsewhere (Chronic) Persistent atrial fibrillation (Chronic) Hypertension (Chronic) Allergies/Adverse Reactions: Allergies No Known Allergies Allergy (Verified 03/30/19 09:32) Home Medications: Ambulatory Orders Medication Instructions Recorded potassium chloride ER 20 mEq 20 meq PO QDAY #90 tab 02/14/18 tablet,extended release Enzalutamide [Xtandi] 80 mg PO DAILY 01/22/19 Fluorometholone 1 drp EACH EYE BID 01/22/19 atenolol 50 mg tablet 25 mg PO QDAY #45 tab 02/14/19 furosemide 40 mg tablet 40 mg PO DAILY #90 tab 02/14/19 diltiazem ER 120 mg capsule,24 120 mg PO DAILY #90 cap 02/19/19 hr,extended release aspirin 81 mg tablet,delayed 81 mg PO DAILY 03/01/19 release rivaroxaban 20 mg tablet 20 mg PO DAILY tab 03/01/19 Ciprofloxacin [Cipro] 500 mg PO BID #14 tab 03/30/19 Maternal Family History: Family History (Last Reviewed 02/28/19 @ 10:56 by Pennie Loving) Brother Atrial fibrillation Family History: No pertinent history Paternal Family History: Family History (Last Reviewed 02/28/19 @ 10:56 by Pennie Loving) Brother Atrial fibrillation Family History: No pertinent history Smoking Status: Never smoker Tobacco Use: Non-smoker Alcohol: None Drugs: None Physical Exam Vital Signs Temp Pulse Resp BP 97.5 F L 54 L 18 143/85 H 05/21/19 14:34 05/21/19 14:34 05/21/19 14:34 05/21/19 14:34 General: Alert, Oriented x3, Cooperative, No apparent distress HEENT: Atraumatic, TM's Clear Lungs: Clear to auscultation, Normal air movement Cardiovascular: Regular rate, Regular Rhythm Psych/Mental Status: Normal Affect, Appropriate, Alert and oriented to time, place, person, mood and affect Assessment/Plan The patient appears to be tolerating hyperbaric oxygen therapy well, which will be continued as per the patient's medical plan.
[2019-05-22 17:45] VITALS: BP 147/82; BP 149/80; PULSE 55; PULSE 58; RESP 16; RESP 18; TEMP 35.6
--- NOTE | 2019-05-23 14:39 | PCM.HBO.PN ---
History of Present Illness Date of Service: 05/23/19 Presenting Chief Complaint: Radiation cystitis. KAREN MOYA is a 73 year old currently undergoing hyperbaric oxygen therapy for radiation cystitis s/p radiation for prostate cancer. Progress: Today's hyperbaric oxygen therapy session represents the 16th session of a total of 20 planned sessions at our facility. Tolerance of hyperbaric oxygen therapy: Hyperbaric oxygen therapy was administered as per our facility's protocol. Myringotomy tubes were placed on 05/03/19 by ENT, and the patient's HBO treatment sessions have been tolerated well since that time. He denies any pain or discomfort. HBO therapy was administered for 90 minutes at 2.0 ATMs, with no air breaks. The patient tolerated HBO therapy well, without complications or complaints. Upon emergence from the hyperbaric oxygen chamber, the patient's vital signs remained stable. Past Medical History Chronic Problems (Last Reviewed 02/28/19 @ 10:56 by Pennie Loving) Chronic radiation cystitis (Chronic) Paroxysmal atrial fibrillation (Chronic) S/P cardioversion on 04/21/2016 Other secondary pulmonary hypertension (Chronic) Cardiomyopathy in other diseases classified elsewhere (Chronic) Persistent atrial fibrillation (Chronic) Hypertension (Chronic) Allergies/Adverse Reactions: Allergies No Known Allergies Allergy (Verified 03/30/19 09:32) Home Medications: Ambulatory Orders Medication Instructions Recorded potassium chloride ER 20 mEq 20 meq PO QDAY #90 tab 02/14/18 tablet,extended release Enzalutamide [Xtandi] 80 mg PO DAILY 01/22/19 Fluorometholone 1 drp EACH EYE BID 01/22/19 atenolol 50 mg tablet 25 mg PO QDAY #45 tab 02/14/19 furosemide 40 mg tablet 40 mg PO DAILY #90 tab 02/14/19 diltiazem ER 120 mg capsule,24 120 mg PO DAILY #90 cap 02/19/19 hr,extended release aspirin 81 mg tablet,delayed 81 mg PO DAILY 03/01/19 release rivaroxaban 20 mg tablet 20 mg PO DAILY tab 03/01/19 Ciprofloxacin [Cipro] 500 mg PO BID #14 tab 03/30/19 Maternal Family History: Family History (Last Reviewed 02/28/19 @ 10:56 by Pennie Loving) Brother Atrial fibrillation Family History: No pertinent history Paternal Family History: Family History (Last Reviewed 02/28/19 @ 10:56 by Pennie Loving) Brother Atrial fibrillation Family History: No pertinent history Smoking Status: Never smoker Tobacco Use: Non-smoker Alcohol: None Drugs: None Physical Exam Vital Signs Temp Pulse Resp BP 96.0 F L 58 L 18 149/80 H 05/22/19 17:45 05/22/19 17:45 05/22/19 17:45 05/22/19 17:45 General: Alert, Oriented x3, Cooperative, No apparent distress HEENT: Atraumatic, TM's Clear Lungs: Clear to auscultation, Normal air movement Cardiovascular: Regular rate, Regular Rhythm Psych/Mental Status: Normal Affect, Appropriate, Alert and oriented to time, place, person, mood and affect Assessment/Plan The patient appears to be tolerating hyperbaric oxygen therapy well, which will be continued as per the patient's medical plan.
[2019-05-23 14:43] VITALS: BP 109/53; BP 132/74; PULSE 48; PULSE 50; RESP 16; RESP 18; TEMP 36
[2019-05-24 16:22] VITALS: BP 144/75; BP 149/89; PULSE 53; PULSE 57; RESP 16; RESP 18; TEMP 36; TEMP 36.1
--- NOTE | 2019-05-24 17:14 | PCM.HBO.PN ---
History of Present Illness Date of Service: 05/24/19 Presenting Chief Complaint: Radiation cystitis. KAREN MOYA is a 73 year old currently undergoing hyperbaric oxygen therapy for radiation cystitis s/p radiation for prostate cancer. Progress: Today's hyperbaric oxygen therapy session represents the 17th session of a total of 20 planned sessions at our facility. Tolerance of hyperbaric oxygen therapy: Hyperbaric oxygen therapy was administered as per our facility's protocol. Myringotomy tubes were placed on 05/03/19 by ENT, and the patient's HBO treatment sessions have been tolerated well since that time. He denies any pain or discomfort. HBO therapy was administered for 90 minutes at 2.0 ATMs, with no air breaks. The patient tolerated HBO therapy well, without complications or complaints. Upon emergence from the hyperbaric oxygen chamber, the patient's vital signs remained stable. Past Medical History Chronic Problems (Last Reviewed 02/28/19 @ 10:56 by Pennie Loving) Chronic radiation cystitis (Chronic) Paroxysmal atrial fibrillation (Chronic) S/P cardioversion on 04/21/2016 Other secondary pulmonary hypertension (Chronic) Cardiomyopathy in other diseases classified elsewhere (Chronic) Persistent atrial fibrillation (Chronic) Hypertension (Chronic) Allergies/Adverse Reactions: Allergies No Known Allergies Allergy (Verified 03/30/19 09:32) Home Medications: Ambulatory Orders Medication Instructions Recorded potassium chloride ER 20 mEq 20 meq PO QDAY #90 tab 02/14/18 tablet,extended release Enzalutamide [Xtandi] 80 mg PO DAILY 01/22/19 Fluorometholone 1 drp EACH EYE BID 01/22/19 atenolol 50 mg tablet 25 mg PO QDAY #45 tab 02/14/19 furosemide 40 mg tablet 40 mg PO DAILY #90 tab 02/14/19 diltiazem ER 120 mg capsule,24 120 mg PO DAILY #90 cap 02/19/19 hr,extended release aspirin 81 mg tablet,delayed 81 mg PO DAILY 03/01/19 release rivaroxaban 20 mg tablet 20 mg PO DAILY tab 03/01/19 Ciprofloxacin [Cipro] 500 mg PO BID #14 tab 03/30/19 Maternal Family History: Family History (Last Reviewed 02/28/19 @ 10:56 by Pennie Loving) Brother Atrial fibrillation Family History: No pertinent history Paternal Family History: Family History (Last Reviewed 02/28/19 @ 10:56 by Pennie Loving) Brother Atrial fibrillation Family History: No pertinent history Smoking Status: Never smoker Tobacco Use: Non-smoker Alcohol: None Drugs: None Physical Exam Vital Signs Temp Pulse Resp BP 96.8 F L 57 L 18 144/75 H 05/24/19 16:22 05/24/19 16:22 05/24/19 16:22 05/24/19 16:22 General: Alert, Oriented x3, Cooperative, No apparent distress, - - Bilateral tympanostomy tubes intact HEENT: Atraumatic, PERRLA Lungs: Clear to auscultation, Normal air movement Cardiovascular: Regular rate, Regular Rhythm, Normal S1, Normal S2 Psych/Mental Status: Normal Affect, Alert and oriented to time, place, person, mood and affect Assessment/Plan The patient appears to be tolerating hyperbaric oxygen therapy well, which will be continued as per the patient's medical plan.
[2019-05-25 14:49] VITALS: BP 135/83; BP 146/86; PULSE 55; PULSE 57; RESP 16; TEMP 36.2; TEMP 36.4
--- NOTE | 2019-05-25 16:24 | PCM.HBO.PN ---
History of Present Illness Date of Service: 05/25/19 Presenting Chief Complaint: Radiation cystitis. KAREN MOYA is a 73 year old currently undergoing hyperbaric oxygen therapy for radiation cystitis s/p radiation for prostate cancer. Progress: Today's hyperbaric oxygen therapy session represents the 18th session of a total of 20 planned sessions at our facility. Tolerance of hyperbaric oxygen therapy: Hyperbaric oxygen therapy was administered as per our facility's protocol. Myringotomy tubes were placed on 05/03/19 by ENT, and the patient's HBO treatment sessions have been tolerated well since that time. He denies any pain or discomfort. HBO therapy was administered for 90 minutes at 2.0 ATMs, with no air breaks. The patient tolerated HBO therapy well, without complications or complaints. Upon emergence from the hyperbaric oxygen chamber, the patient's vital signs remained stable. Past Medical History Chronic Problems (Last Reviewed 02/28/19 @ 10:56 by Pennie Loving) Chronic radiation cystitis (Chronic) Paroxysmal atrial fibrillation (Chronic) S/P cardioversion on 04/21/2016 Other secondary pulmonary hypertension (Chronic) Cardiomyopathy in other diseases classified elsewhere (Chronic) Persistent atrial fibrillation (Chronic) Hypertension (Chronic) Allergies/Adverse Reactions: Allergies No Known Allergies Allergy (Verified 03/30/19 09:32) Home Medications: Ambulatory Orders Medication Instructions Recorded potassium chloride ER 20 mEq 20 meq PO QDAY #90 tab 02/14/18 tablet,extended release Enzalutamide [Xtandi] 80 mg PO DAILY 01/22/19 Fluorometholone 1 drp EACH EYE BID 01/22/19 atenolol 50 mg tablet 25 mg PO QDAY #45 tab 02/14/19 furosemide 40 mg tablet 40 mg PO DAILY #90 tab 02/14/19 diltiazem ER 120 mg capsule,24 120 mg PO DAILY #90 cap 02/19/19 hr,extended release aspirin 81 mg tablet,delayed 81 mg PO DAILY 03/01/19 release rivaroxaban 20 mg tablet 20 mg PO DAILY tab 03/01/19 Ciprofloxacin [Cipro] 500 mg PO BID #14 tab 03/30/19 Maternal Family History: Family History (Last Reviewed 02/28/19 @ 10:56 by Pennie Loving) Brother Atrial fibrillation Family History: No pertinent history Paternal Family History: Family History (Last Reviewed 02/28/19 @ 10:56 by Pennie Loving) Brother Atrial fibrillation Family History: No pertinent history Smoking Status: Never smoker Tobacco Use: Non-smoker Alcohol: None Drugs: None Physical Exam Vital Signs Temp Pulse Resp BP 97.2 F L 57 L 16 146/86 H 05/25/19 14:49 05/25/19 14:49 05/25/19 14:49 05/25/19 14:49 General: Alert, Oriented x3, Cooperative, No apparent distress Psych/Mental Status: Normal Affect, Appropriate Assessment/Plan Active Problems (Last Reviewed 02/28/19 @ 10:56 by Pennie Loving) History of prostate cancer (Acute) Chronic radiation cystitis (Chronic) Hematuria (Acute) The patient appears to be tolerating hyperbaric oxygen therapy well, which will be continued as per the patient's medical plan.
[2019-05-28 14:31] VITALS: BP 134/84; BP 148/97; PULSE 50; PULSE 58; RESP 16; RESP 18; TEMP 35.6; TEMP 36.5
--- NOTE | 2019-05-28 16:23 | PCM.HBO.PN ---
History of Present Illness Date of Service: 05/28/19 Presenting Chief Complaint: Radiation cystitis. KAREN MOYA is a 73 year old currently undergoing hyperbaric oxygen therapy for radiation cystitis s/p radiation for prostate cancer. Progress: Today's hyperbaric oxygen therapy session represents the 19th session of a total of 20 planned sessions at our facility. Tolerance of hyperbaric oxygen therapy: Hyperbaric oxygen therapy was administered as per our facility's protocol. Myringotomy tubes were placed on 05/03/19 by ENT, and the patient's HBO treatment sessions have been tolerated well since that time. He denies any pain or discomfort. HBO therapy was administered for 90 minutes at 2.0 ATMs, with no air breaks. The patient tolerated HBO therapy well, without complications or complaints. Upon emergence from the hyperbaric oxygen chamber, the patient's vital signs remained stable. Past Medical History Chronic Problems (Last Reviewed 02/28/19 @ 10:56 by Pennie Loving) Chronic radiation cystitis (Chronic) Paroxysmal atrial fibrillation (Chronic) S/P cardioversion on 04/21/2016 Other secondary pulmonary hypertension (Chronic) Cardiomyopathy in other diseases classified elsewhere (Chronic) Persistent atrial fibrillation (Chronic) Hypertension (Chronic) Allergies/Adverse Reactions: Allergies No Known Allergies Allergy (Verified 03/30/19 09:32) Home Medications: Ambulatory Orders Medication Instructions Recorded potassium chloride ER 20 mEq 20 meq PO QDAY #90 tab 02/14/18 tablet,extended release Enzalutamide [Xtandi] 80 mg PO DAILY 01/22/19 Fluorometholone 1 drp EACH EYE BID 01/22/19 atenolol 50 mg tablet 25 mg PO QDAY #45 tab 02/14/19 furosemide 40 mg tablet 40 mg PO DAILY #90 tab 02/14/19 diltiazem ER 120 mg capsule,24 120 mg PO DAILY #90 cap 02/19/19 hr,extended release aspirin 81 mg tablet,delayed 81 mg PO DAILY 03/01/19 release rivaroxaban 20 mg tablet 20 mg PO DAILY tab 03/01/19 Ciprofloxacin [Cipro] 500 mg PO BID #14 tab 03/30/19 Maternal Family History: Family History (Last Reviewed 02/28/19 @ 10:56 by Pennie Loving) Brother Atrial fibrillation Family History: No pertinent history Paternal Family History: Family History (Last Reviewed 02/28/19 @ 10:56 by Pennie Loving) Brother Atrial fibrillation Family History: No pertinent history Smoking Status: Never smoker Tobacco Use: Non-smoker Alcohol: None Drugs: None Physical Exam Vital Signs Temp Pulse Resp BP 97.7 F L 58 L 18 148/97 H 05/28/19 14:31 05/28/19 14:31 05/28/19 14:31 05/28/19 14:31 General: Alert, Oriented x3, Cooperative, No apparent distress HEENT: Atraumatic, TM's Clear Lungs: Clear to auscultation, Normal air movement Cardiovascular: Regular rate, Regular Rhythm Psych/Mental Status: Normal Affect, Appropriate, Alert and oriented to time, place, person, mood and affect Assessment/Plan The patient appears to be tolerating hyperbaric oxygen therapy well, which will be continued as per the patient's medical plan.
--- NOTE | 2019-05-29 14:57 | PCM.HBO.PN ---
History of Present Illness Date of Service: 05/29/19 Presenting Chief Complaint: Radiation cystitis. KAREN MOYA is a 73 year old currently undergoing hyperbaric oxygen therapy for radiation cystitis s/p radiation for prostate cancer. Progress: Today's hyperbaric oxygen therapy session represents the 20th session of a total of 20 planned sessions at our facility. Tolerance of hyperbaric oxygen therapy: Hyperbaric oxygen therapy was administered as per our facility's protocol. Myringotomy tubes were placed on 05/03/19 by ENT, and the patient's HBO treatment sessions have been tolerated well since that time. He denies any pain or discomfort. HBO therapy was administered for 90 minutes at 2.0 ATMs, with no air breaks. The patient tolerated HBO therapy well, without complications or complaints. Upon emergence from the hyperbaric oxygen chamber, the patient's vital signs remained stable. Past Medical History Chronic Problems (Last Reviewed 02/28/19 @ 10:56 by Pennie Loving) Chronic radiation cystitis (Chronic) Paroxysmal atrial fibrillation (Chronic) S/P cardioversion on 04/21/2016 Other secondary pulmonary hypertension (Chronic) Cardiomyopathy in other diseases classified elsewhere (Chronic) Persistent atrial fibrillation (Chronic) Hypertension (Chronic) Allergies/Adverse Reactions: Allergies No Known Allergies Allergy (Verified 03/30/19 09:32) Home Medications: Ambulatory Orders Medication Instructions Recorded potassium chloride ER 20 mEq 20 meq PO QDAY #90 tab 02/14/18 tablet,extended release Enzalutamide [Xtandi] 80 mg PO DAILY 01/22/19 Fluorometholone 1 drp EACH EYE BID 01/22/19 atenolol 50 mg tablet 25 mg PO QDAY #45 tab 02/14/19 furosemide 40 mg tablet 40 mg PO DAILY #90 tab 02/14/19 diltiazem ER 120 mg capsule,24 120 mg PO DAILY #90 cap 02/19/19 hr,extended release aspirin 81 mg tablet,delayed 81 mg PO DAILY 03/01/19 release rivaroxaban 20 mg tablet 20 mg PO DAILY tab 03/01/19 Ciprofloxacin [Cipro] 500 mg PO BID #14 tab 03/30/19 Maternal Family History: Family History (Last Reviewed 02/28/19 @ 10:56 by Pennie Loving) Brother Atrial fibrillation Family History: No pertinent history Paternal Family History: Family History (Last Reviewed 02/28/19 @ 10:56 by Pennie Loving) Brother Atrial fibrillation Family History: No pertinent history Smoking Status: Never smoker Tobacco Use: Non-smoker Alcohol: None Drugs: None Physical Exam Vital Signs Temp Pulse Resp BP 97.7 F L 58 L 18 148/97 H 05/28/19 14:31 05/28/19 14:31 05/28/19 14:31 05/28/19 14:31 General: Alert, Oriented x3, Cooperative, No apparent distress HEENT: Atraumatic, TM's Clear Lungs: Clear to auscultation, Normal air movement Cardiovascular: Regular rate, Regular Rhythm Psych/Mental Status: Normal Affect, Appropriate, Alert and oriented to time, place, person, mood and affect Assessment/Plan The patient appears have tolerated hyperbaric oxygen therapy well, planned therapy completed today.
[2019-05-29 17:01] VITALS: BP 136/83; BP 146/89; PULSE 52; PULSE 63; RESP 16; RESP 18; TEMP 36.1; TEMP 36.7
== END 2019-06-02 23:59 ==
LOC: WC 14:15
PROVIDERS: Family Provider Family Medicine; PCP Family Medicine; Referring Provider Internal Medicine; Visit Provider Internal Medicine
DX: N30.40 Irradiation cystitis without hematuria (principal); I48.0 Paroxysmal atrial fibrillation; I10 Essential (primary) hypertension; I27.20 Pulmonary hypertension, unspecified; Z79.899 Other long term (current) drug therapy; Z79.82 Long term (current) use of aspirin; Z85.46 Personal history of malignant neoplasm of prostate; I48.19 Other persistent atrial fibrillation
CPT/HCPCS: 99183; G0277

== ENCOUNTER → 2019-09-06 11:36 | Outpatient (CLI) | payer MEDICARE, SELFPAY ==
[2019-09-06 11:03] VITALS: BMI 29.2
[2019-09-06 13:03] LABS: PSA,Total- Diagnostic 0.07 ng/mL (0.0-4.0)
== END ==
PROVIDERS: PCP Family Medicine; Referring Provider Urology; Visit Provider Urology
DX: C61 Malignant neoplasm of prostate (principal)
CPT/HCPCS: 36415; 84153

== ENCOUNTER → 2019-12-17 09:41 | Outpatient (CLI) | payer MEDICARE, SELFPAY ==
[2019-09-06 11:03] VITALS: BMI 29.2
[2019-12-17 11:32] LABS: PSA,Total- Diagnostic 0.05 ng/mL (0.0-4.0)
== END ==
PROVIDERS: PCP Family Medicine; Referring Provider Urology; Visit Provider Urology
DX: C61 Malignant neoplasm of prostate (principal)
CPT/HCPCS: 36415; 84153

== ENCOUNTER → 2020-03-24 08:06 | Outpatient (CLI) | payer MEDICARE, SELFPAY ==
[2019-09-06 11:03] VITALS: BMI 29.2
[2020-03-24 09:48] LABS: PSA,Total- Diagnostic 0.06 ng/mL (0.0-4.0)
== END ==
PROVIDERS: PCP Family Medicine; Referring Provider Urology; Visit Provider Urology
DX: C61 Malignant neoplasm of prostate (principal)
CPT/HCPCS: 36415; 84153

== ENCOUNTER 2020-04-26 06:36 | Emergency (ER) | payer MEDICARE, SELFPAY ==
[2020-03-27 08:08] VITALS: BMI 29.9
[2020-04-26 06:36] VITALS: BP 148/109; PULSE 108; RESP 16; TEMP 37; O2SAT 98; BMI 29.7
--- NOTE | 2020-04-26 06:43 | ED.DCSUM_ITS ---
History of Present Illness <Dave Garcia - Last Filed: 04/26/20 12:50> Informant: Patient Onset: Hours - 4-5 Context: Gradual Onset Timing: Continuous Quality: unable to urinate Location: suprapubic pressure Current Severity: Moderate Maximum Severity: Moderate Worsened by: nothing Relieved by: nothing Associated Symptoms: abd bloating/suprapubic discomfort Narrative: Patient complained of urinary retention since late last night/early this morning. Just dribbling little bit of urine now and feels like he needs to go but unable to urinate any more than that. No hematuria although he did have some several weeks ago, but that was the last time. He was anticoagulated with Xarelto for atrial fibrillation but he is no longer on that medication. 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 No recent fevers, nausea, vomiting, pain in his back, or other illness. <Jose Sunshine - Last Filed: 04/29/20 02:25> Chief Complaint: Complaint - Past Medical History (1) DVT (deep venous thrombosis) Status: Chronic (2) Parkinsons disease Status: Chronic (3) Cardiomyopathy in other diseases classified elsewhere Status: Chronic (4) Chronic radiation cystitis Status: Chronic (5) History of prostate cancer Status: Chronic (6) Hypertension Status: Chronic (7) Other secondary pulmonary hypertension Status: Chronic (8) Persistent atrial fibrillation Status: Chronic Comment: S/P cardioversion on 04/21/2016 <Jose Sunshine - Last Filed: 04/29/20 02:25> Past Medical History - Family History Maternal Family History: Family History (Last Reviewed 08/31/19 @ 16:08 by Pennie Loving) Brother Atrial fibrillation Paternal Family History: Family History (Last Reviewed 08/31/19 @ 16:08 by Pennie Loving) Brother Atrial fibrillation <Dave Garcia - Last Filed: 04/26/20 12:50> Doctors: merari - urology Surgical History: - - meatl extraction from eye, hernia repair, colonoscopy w/polypectomy, cataract exraction with implant left eye, and teeth extraction, prostate radiation treatment. Lives: Spouse/ Significant Other Smoking Status: Never smoker - Family History Maternal Family History: Family History (Last Reviewed 08/31/19 @ 16:08 by Pennie Loving) Brother Atrial fibrillation Family History: Reports: No pertinent history Paternal Family History: Family History (Last Reviewed 08/31/19 @ 16:08 by Pennie Loving) Brother Atrial fibrillation Family History: Reports: No pertinent history <Jose Sunshine - Last Filed: 04/29/20 02:25> - Allergies and Home Meds Allergies/Adverse Reactions: Allergies No Known Allergies Allergy (Verified 04/26/20 06:42) Primary Care Physician: Robert Prather MD [STAFF PHYSICIAN] - 5-7 Days Review of Systems General: Denies: Chills, Fever, Sweats Eyes: Denies: Visual changes - bilaterally, Diplopia ENT: Denies: Rhinorrhea, Sore throat Cardiovascular: Denies: Chest pain, Palpitations Respiratory: Denies: Dyspnea, Cough, Dyspnea on exertion Gastrointestinal: Reports: Abdominal pain. Denies: Nausea, Vomiting, Diarrhea, Melena, Hematochezia Genitourinary: Reports: - - Urinary retention. Denies: Dysuria, Hematuria, Frequency Musculoskeletal: Denies: Neck pain, Back pain, Swelling, Extremity Pain Skin: Denies: Rash, Wounds Neurological: Denies: Headache, Weakness, Numbness Hematologic: Reports: Easy bruising <Jose Sunshine - Last Filed: 04/29/20 02:25> Physical Exam Vital Signs/Narrative: Vital Signs Temp Pulse Resp BP Pulse Ox 04/26/20 06:36 98.6 F 108 H 16 148/109 H 98 <Dave Garcia - Last Filed: 04/26/20 12:50> Vital Signs/Narrative: Vital Signs Temp Pulse Resp BP Pulse Ox 04/26/20 06:36 98.6 F 108 H 16 148/109 H 98 Inital Vital Signs reviewed: Yes General: Well nourished, Well developed, No Acute Distress Head: Normocephalic, Atraumatic Eyes: Perrl, EOMI ENT: Moist mucous membranes, No rhinorrhea Neck: Supple, Nontender Respiratory: No distress Abdomen: Soft, Nondistended, Normal bowel sounds, Tender - Suprapubic only. Negative for: Guarding, Rebound tenderness Back: Nontender, Normal Inspection. Negative for: CVA tenderness Extremities: Nontender, No edema Skin: Normal color, No rash, No Trauma Neurological: Alert, Oriented x3, Cranial nerves II-XII grossly intact, Normal Strength, Normal Sensation Psychological: Normal affect, Normal Mood <Jose Sunshine - Last Filed: 04/29/20 02:25> Diagnostic/Tx/Re-eval - Medical Decision Making Patient was signed out to me. His labs were unremarkable. We were unable to pass a Somers catheter/coud? after multiple attempts. I contacted Dr. Prather who is currently out of town and requested transfer. Patient requested [facility]. They did not have urology coverage and recommended [facility]. Patient was accepted to the ED by Dr. Mcgee and Dr. Vasquez and will be transferred by private vehicle. <Dave Garcia - Last Filed: 04/26/20 12:50> - Medical Decision Making Patient seen just prior to shift change. Bladder scan was over 300 cc. Patient was pretreated with lidocaine Urojet, nursing is having trouble putting in a regular Somers catheter due to apparent obstruction at or near the prostate, so a coud? catheter will be attempted, urinalysis was ordered along with basic labs to rule out renal failure, and if okay the patient will be given a leg bag and referred to his urologist as an outpatient. <Jose Sunshine - Last Filed: 04/29/20 02:25> ED Disposition <Dave Garcia - Last Filed: 04/26/20 12:50> <Jose Sunshine - Last Filed: 04/29/20 02:25> - Plan for ED Patient: Disposition: [facility] Diagnosis: Acute urinary retention Instructions: ED Somers Catheter Care, ED Urinary Retention Male Referrals: Robert Prather MD [STAFF PHYSICIAN] - 5-7 Days
[2020-04-26 07:23] LABS: Absolute Lymphocyte Count 0.83 X10^3/uL (0.83-4.51); Absolute Neutrophil Count 3.6 X10^3/uL (2.0-7.7); Basophil# 0.02 X10^3/uL; Basophil% 0.4 % (0-1); Eosinophil# 0.13 X10^3/uL; Eosinophils% 2.5 % (0-5); Hematocrit 46.3 % (40-54); Hemoglobin 15.4 g/dL (13.0-16.5); Lymphocyte # 0.83 X10^3/ul (4.0); Lymphocyte % 15.9 % (19-41); Mean Corp Hgb Conc 33.3 g/dL (32-36); Mean Corpuscular Hgb 30.7 pg (27.0-32.0); Mean Corpuscular Volume 92.4 fL (80-94); Mean Platelet Vol. 10.3 fl (6.2-12.0); Monocyte# 0.59 X10^3/uL; Monocyte% 11.3 % (0-10); NRBC Flagged by Analyzer 0 % (0-5); Neutrophil % 69.1 % (47-70); Platelet Count 181 K/mm3 (150-450); RBC Distribution Width CV 14.3 % (11.6-14.6); RBC Distribution Width SD 47.7 fl (35.1-43.9); Red Blood Count 5.01 M/mm3 (4.6-6.2); White Blood Count 5.2 K/mm3 (4.4-11.0)
[2020-04-26] MEDS: Lidocaine Jelly 2% 20 ML Syringe (URO-JET) 20 APPLIC TOPICAL (07:39)
[2020-04-26 07:51] LABS: Anion Gap 7 (5-15); BUN 24 mg/dL (7-18); BUN/Creat Ratio 18.2 RATIO (10-20); Chloride 107 mmol/L (98-107); Creatinine, Serum 1.32 mg/dL (0.70-1.30); EST Glomerular Filtration Rate 56 mL/min (>60); Est Glom Filt Rate - Afr Amer 68 mL/min (>60); Estimated Creatinine Clearance 46.78 ml/min; Glucose 102 mg/dL (74-106); Potassium 4.1 mmol/L (3.5-5.1); Sodium Level 140 mmol/L (136-145)
--- NOTE | 2020-04-26 08:36 | ED.RN ---
ATTEMPTED MULTIPLE TIMES WITH MULTIPLE DIFFERENT CATHETER SIZES BY MULTIPLE RN'S, UNSUCCESSFUL. MADE AWARE AND DR SHABAZZ PAGED. PT AND SPOUSE MADE AWARE.
[2020-04-26 10:09] VITALS: BP 131/73; PULSE 85; RESP 16; O2SAT 97
== END 2020-04-26 10:09 | disposition short-term general hospital (02) ==
LOC: ED 07:34
PROVIDERS: Emergency Provider Emergency Medicine; PCP Family Medicine
DX: R33.9 Retention of urine, unspecified (principal); I48.19 Other persistent atrial fibrillation; N30.40 Irradiation cystitis without hematuria; G20 Parkinson's disease; I27.29 Other secondary pulmonary hypertension; I42.9 Cardiomyopathy, unspecified; I10 Essential (primary) hypertension; Z79.82 Long term (current) use of aspirin; Z79.899 Other long term (current) drug therapy; Z85.46 Personal history of malignant neoplasm of prostate; Z86.718 Personal history of other venous thrombosis and embolism
CPT/HCPCS: 80048; 85025; 99283

== ENCOUNTER 2020-04-27 15:03 | Emergency (ER) | payer MEDICARE, SELFPAY ==
[2020-04-26 06:36] VITALS: BMI 29.7
[2020-04-27 15:04] VITALS: BP 111/71; PULSE 74; RESP 16; TEMP 36.4; O2SAT 97; BMI 28.8
--- NOTE | 2020-04-27 15:12 | ED.DCSUM_ITS ---
History of Present Illness Chief Complaint: Complaint Narrative: Patient was here yesterday, there was no urology at the time and ended up being transferred to to [facility] for Somers catheter placement. We were unable to place a catheter in our emergency department. He needed urological dilation and guidewire Somers catheter placement. Apparently when he got home his catheter fell out. He has no fever or chills but he is significant abdominal pain. Past Medical History - Allergies and Home Meds Allergies/Adverse Reactions: Allergies No Known Allergies Allergy (Verified 04/26/20 06:42) Primary Care Physician: Robert Prather MD [STAFF PHYSICIAN] - 3-5 Days Past Medical History: - - Hypertension, prostate cancer, parkinsonism Surgical History: - - meatl extraction from eye, hernia repair, colonoscopy w/polypectomy, cataract exraction with implant left eye, and teeth extraction, prostate radiation treatment. Smoking Status: Never smoker - Family History Maternal Family History: Family History (Last Reviewed 08/31/19 @ 16:08 by Pennie Loving) Brother Atrial fibrillation Family History: Reports: No pertinent history Paternal Family History: Family History (Last Reviewed 08/31/19 @ 16:08 by Pennie Loving) Brother Atrial fibrillation Family History: Reports: No pertinent history Review of Systems All systems negative except as indicated General: Denies: Fever Cardiovascular: Denies: Chest pain Respiratory: Denies: Paroxysmal nocturnal dyspnea Gastrointestinal: Reports: Abdominal pain Genitourinary: Reports: - - Urinary retention Musculoskeletal: Denies: Back pain Skin: Denies: Rash Neurological: Denies: Weakness Hematologic: Denies: Easy bruising Physical Exam Vital Signs/Narrative: Vital Signs Temp Pulse Resp BP Pulse Ox 04/27/20 15:04 97.5 F L 74 16 111/71 97 General: Well nourished, - - He appears in some distress. ENT: Moist mucous membranes, No rhinorrhea Cardiovascular: Regular rate, Regular rhythm Respiratory: No distress, CTA bilaterally Abdomen: Soft, - - Prepubic distention with quite a bit of pain. Back: Negative for: CVA tenderness Skin: Normal color Neurological: Normal Strength, Normal Sensation Diagnostic/Tx/Re-eval - Medical Decision Making We discussed with urology they will come to the emergency department to place a Somers catheter. ED Disposition - Plan for ED Patient: Disposition: Home or Assisted Living Diagnosis: Urinary retention Instructions: ED Urinary Retention Male Prescriptions: Ciprofloxacin [Cipro] 500 mg PO BID #9 tab Transmission Status: Pending to [facility] Referrals: Robert Prather MD [STAFF PHYSICIAN] - 3-5 Days
[2020-04-27] MEDS: HYDROmorphone 1 MG/ML Syringe IM (15:23)
--- NOTE | 2020-04-27 15:37 | PCM.CONS.U ---
Problem List (1) History of prostate cancer Status: Chronic Reason for Consult Date of Consultation: 04/27/20 Reason for Consultation: 74-year-old male presented to the ER with retention of urine History of Present Illness: The patient is a 74 year old male who had a Somers catheter placed for retention of urine at an outside hospital it was a difficult Somers placement. The catheter fell out and he is not been able to urinate so today he went to the emergency room per my instructions I admit the patient in the emergency room and used a wire to guided through into the prostate and the bladder and then dilated what appeared to be a stricture in the prostatic urethra. And then after dilating the stricture I put in a 16 Bengali catheter into the bladder. Past Medical History Past Medical History (Chronic Problems): Chronic Problems (Last Updated 09/06/19 @ 11:08 by Pennie Loving) Parkinsons disease (Chronic) History of prostate cancer (Chronic) Chronic radiation cystitis (Chronic) DVT (deep venous thrombosis) (Chronic) Other secondary pulmonary hypertension (Chronic) Cardiomyopathy in other diseases classified elsewhere (Chronic) Persistent atrial fibrillation (Chronic) S/P cardioversion on 04/21/2016 Hypertension (Chronic) Medical History: Medical History (Last Updated 09/06/19 @ 11:08 by Pennie Loving) Parkinsons disease (Chronic) G20 Chronic radiation cystitis (Chronic) N30.40 DVT (deep venous thrombosis) (Chronic) I82.409 Dyspnea on exertion (Acute) R06.09 [facility] (current) use of anticoagulants (Acute) Z79.01 Other secondary pulmonary hypertension (Chronic) I27.29 Cardiomyopathy in other diseases classified elsewhere (Chronic) I43 Persistent atrial fibrillation (Chronic) I48.1 S/P cardioversion on 04/21/2016 Hypertension (Chronic) I10 Localized edema R60.0 Prostate cancer C61 Localized edema (Inactive) R60.0 [facility] use of drug Z79.899 Allergies No Known Allergies Allergy (Verified 04/26/20 06:42) Home Medications: Ambulatory Orders Medication Instructions Recorded aspirin 81 mg tablet,delayed 81 mg PO DAILY 03/01/19 release atenolol 50 mg tablet 25 mg PO BID tab 09/06/19 carbidopa ER 25 mg-levodopa 100 mg 1 tab PO TID 09/06/19 tablet,extended release furosemide 40 mg tablet 40 mg PO DAILY #90 tab 11/12/19 diltiazem HCl 120 mg capsule,24 120 mg PO DAILY #90 cap 02/13/20 hr,extended release potassium chloride 20 mEq 20 meq PO QDAY #90 tab 03/27/20 tablet,extended release pramipexole 0.5 mg tablet 0.5 mg PO QHS 03/27/20 Surgical History: Surgical History (Last Reviewed 08/31/19 @ 16:08 by Pennie Loving) History of cataract extraction Z98.49 History of hernia repair Z98.890, Z87.19 Surgical History: - - meatl extraction from eye, hernia repair, colonoscopy w/polypectomy, cataract exraction with implant left eye, and teeth extraction, prostate radiation treatment. Smoking Status: Never smoker - *Family History Maternal Family History: Family History (Last Reviewed 08/31/19 @ 16:08 by Pennie Loving) Brother Atrial fibrillation History Items: No pertinent history Paternal Family History: Family History (Last Reviewed 08/31/19 @ 16:08 by Pennie Loving) Brother Atrial fibrillation History Items: No pertinent history Review of Systems Constitutional: Denies: Chills, Fever, Weight Change HEENT: Denies: Head Aches, Sinus Congestion, Sinus Drainage Cardiovascular: Denies: Chest Pain, Palpitations Respiratory: Denies: Cough, Shortness of breath at rest, Sputum production Gastrointestinal: Denies: Abdominal Pain, Nausea, Vomiting Genitourinary: Denies: Dysuria Musculoskeletal: Denies: Joint Pain, Joint Tenderness Skin: Denies: Rash, Wounds Neurological: Denies: Numbness, Tingling, Focal weakness Psychiatric: Denies: Anxiety, Depression, Homicidal Ideations, Suicidal Ideations Hematologic/ Lymphatic: Denies: Easy Bruising, Easy Bleeding Physical Exam - Physical Exam Vital Signs Temp 97.5 F L 04/27/20 15:04 Pulse 74 04/27/20 15:04 Resp 16 04/27/20 15:04 BP 111/71 04/27/20 15:04 Pulse Ox 97 04/27/20 15:04 Intake & Output 04/25/20 04/26/20 04/27/20 23:59 23:59 23:59 Weight: 86.183 kg General: Alert, Oriented x3 HEENT: Atraumatic Oral: Moist Mucosa Neck: Supple Lungs: No rhonchi Cardiovascular: Regular rate Abdomen: Soft Assessment/Plan All Active Problems (Last Updated 09/06/19 @ 11:08 by Pennie Loving) Urinary retention (Acute) Bladder outflow obstruction (Acute) Hematuria (Acute) Dyspnea on exertion (Acute) [facility] (current) use of anticoagulants (Acute) 74-year-old male with urethral stricture he does have a history of prostate cancer did require surgery this past year for bleeding and needed catheter for quite a while so he developed a prostatic urethral stricture. He will leave the catheter in for now I want to see him 2 weeks in the office to remove the catheter.
[2020-04-27] MEDS: Ciprofloxacin 250 MG Tablet 500 MG PO (15:45)
== END 2020-04-27 15:57 | disposition home or self-care (01) ==
LOC: ED 15:26
PROVIDERS: Emergency Provider Emergency Medicine; PCP Family Medicine
DX: N35.919 Unspecified urethral stricture, male, unspecified site (principal); N32.0 Bladder-neck obstruction; R33.9 Retention of urine, unspecified; R31.9 Hematuria, unspecified; I48.19 Other persistent atrial fibrillation; G20 Parkinson's disease; I10 Essential (primary) hypertension; I27.29 Other secondary pulmonary hypertension; I42.9 Cardiomyopathy, unspecified; Z79.82 Long term (current) use of aspirin; Z79.01 Long term (current) use of anticoagulants; Z79.899 Other long term (current) drug therapy; Z86.718 Personal history of other venous thrombosis and embolism; Z85.46 Personal history of malignant neoplasm of prostate
CPT/HCPCS: 96372; 99281

== ENCOUNTER → 2020-05-09 10:49 | Outpatient (CLI) | payer MEDICARE, SELFPAY ==
[2020-05-09 09:06] VITALS: BMI 28.8
[2020-05-09 11:11] LABS: Hematocrit 43.7 % (40-54); Hemoglobin 14.3 g/dL (13.0-16.5); Mean Corp Hgb Conc 32.7 g/dL (32-36); Mean Corpuscular Hgb 30.3 pg (27.0-32.0); Mean Corpuscular Volume 92.6 fL (80-94); Mean Platelet Vol. 9.7 fl (6.2-12.0); Platelet Count 215 K/mm3 (150-450); RBC Distribution Width CV 14.4 % (11.6-14.6); Red Blood Count 4.72 M/mm3 (4.6-6.2); White Blood Count 9.8 K/mm3 (4.4-11.0)
[2020-05-09 11:34] LABS: Anion Gap 6 (5-15); BUN 25 mg/dL (7-18); BUN/Creat Ratio 21.4 RATIO (10-20); Calcium,Total 8.5 mg/dL (8.5-10.1); Chloride 109 mmol/L (98-107); Creatinine, Serum 1.17 mg/dL (0.70-1.30); EST Glomerular Filtration Rate 64 mL/min (>60); Est Glom Filt Rate - Afr Amer 78 mL/min (>60); Glucose 101 mg/dL (74-106); Sodium Level 142 mmol/L (136-145)
[2020-05-09 11:36] LABS: D-Dimer Quantitative (DVT/PE) 2.11 FEU/ug/m (0.27-0.49)
--- NOTE | 2020-05-09 12:53 | VDLE_ITS ---
Reason For Study: ELEVATED D-DIMER RIGHT LEFT GSV is normal. GSV is normal. CFV is compressible, spontaneous, phasic, CFV is compressible, spontaneous, phasic, competent and demonstrates normal competent, and demonstrates normal augmentation. augmentation. FV is compressible, spontaneous, phasic, FV is compressible, spontaneous, phasic, competent and demonstrates normal competent and demonstrates normal augmentation. augmentation. POP V is compressible, spontaneous, phasic, POP V is compressible, spontaneous, phasic, competent and demonstrates normal competent and demonstrates normal augmentation. augmentation. T/P Trunk is compressible. T/P Trunk is compressible. PTV is compressible. PTV is compressible. RT PerV is compressible. LT PerV is compressible. Procedure This is a venous duplex using B-mode, color flow and spectral Doppler. Exam performed in department. The exam was diagnostic. The study was technically difficult. Due to edema below the knees. A preliminary report was called and/or faxed to [facility] attn: DR. Oro/Laura CASTRO. Interpretation Summary No evidence for acute deep venous thrombosis bilateral lower extremities with patent and compressible bilateral great saphenous veins. Technically difficult examination. Bilateral lower extremity infrageniculate edema. Ordering Physician: Naldo Oro Referring Physician: Masoud Rosa Performed By: Elisabeth Nunez, RDCS, RVT
== END ==
PROVIDERS: PCP Family Medicine; Referring Provider Physician Assistant Medical; Visit Provider Physician Assistant Medical
DX: I48.19 Other persistent atrial fibrillation (principal); R60.0 Localized edema; R60.9 Edema, unspecified; R06.09 Other forms of dyspnea; I27.29 Other secondary pulmonary hypertension; I43 Cardiomyopathy in diseases classified elsewhere; Z85.46 Personal history of malignant neoplasm of prostate; Z86.718 Personal history of other venous thrombosis and embolism
CPT/HCPCS: 36415; 80048; 83880; 85027; 85379; 93970

== ENCOUNTER 2020-05-10 06:05 | Observation (INO) | payer MEDICARE, SELFPAY ==
[2020-05-09 09:06] VITALS: BMI 28.8
[2020-05-10] VITALS (7 sets, daily range): BP systolic 110–140; BP diastolic 67–97; PULSE 87–113; RESP 16–18; TEMP 36.3–38.5; O2SAT 93–98; BMI 30.2
--- NOTE | 2020-05-10 06:17 | ED.VISSUMM ---
- ER Visit Summary Date of Service: 05/10/20 Chief Complaint: Urinary retention History of Present Illness: The patient is a 74 M who presents with urinary retention that has been getting worse since yesterday afternoon. Patient admits to burning when he urinates and blood in his urine. Patient states the last time he was able to empty his bladder was yesterday afternoon. Patient states that when when he urinates currently it is only a small amount. Patient states it bonilla when he urinates. Patient denies any fevers or chills. Patient denies any nausea or vomiting. Physical Examination: Vital signs are stable. Patient is afebrile. Patient is in no acute distress. Oral mucosa is pink and moist. Neck is supple. Trachea is midline. There is no JVD. Heart was regular rate and rhythm. Lungs are clear and equal bilaterally. Abdomen is soft. Bowel sounds are normal. There is some mild suprapubic tenderness. There is no rebound or guarding noted. Cranial nerves II through XII are intact. There are no focal motor or sensory deficits. Extremities are intact. There is no calf tenderness noted. Test Results: Urinalysis was obtained. Emergency Department Course and Treatment: Somers catheter was placed. Disposition: Pending per urinalysis and catheter placement but likely to be discharged Impression: 1. Urinary retention This note was generated with [employer] dictation software. It may contain incorrect words, spelling, and punctuation that were not noted in review of the chart prior to signing ED Disposition - Plan for ED Patient: Diagnosis: Urinary retention Instructions: ED Urinary Retention Male, ED Somers Catheter Care Referrals: Masoud Rosa MD [Primary Care Provider] - Robert Prather MD [STAFF PHYSICIAN] - 2 Days
[2020-05-10] MEDS: Lidocaine Jelly 2% 20 ML Syringe (URO-JET) 20 APPLIC TOPICAL (07:45)
--- NOTE | 2020-05-10 07:50 | NURSING ---
DR HARIKA HOFFMAN
--- NOTE | 2020-05-10 07:55 | NURSING ---
DR [place] FOR DR PRESCOTT
[2020-05-10 07:57] LABS: Mucous, Urine 0 SEEN /hpf (<or=2+); Squamous Epithelial Cells - UA 0 SEEN /hpf (0-5)
--- NOTE | 2020-05-10 08:05 | NURSING ---
MED SURG OBS TERELETSLY ACUTE URINARY RETENTION, HEMATURIA
[2020-05-10 08:08] LABS: Absolute Lymphocyte Count 0.39 X10^3/uL (0.83-4.51); Absolute Neutrophil Count 7.7 X10^3/uL (2.0-7.7); Basophil# 0.01 X10^3/uL; Basophil% 0.1 % (0-1); Eosinophil# 0.09 X10^3/uL; Hematocrit 41.2 % (40-54); Hemoglobin 13.3 g/dL (13.0-16.5); Lymphocyte # 0.39 X10^3/ul (4.0); Lymphocyte % 4.3 % (19-41); Mean Corp Hgb Conc 32.3 g/dL (32-36); Mean Platelet Vol. 9.5 fl (6.2-12.0); Monocyte# 0.86 X10^3/uL; Monocyte% 9.4 % (0-10); NRBC Flagged by Analyzer 0 % (0-5); Neutrophil # 7.74 X10^3/uL (2.7-7.7); Neutrophil % 84.5 % (47-70); POSITIVE DIFFERENTIAL YES; Platelet Count 201 K/mm3 (150-450); RBC Distribution Width CV 14.5 % (11.6-14.6); RBC Distribution Width SD 49.4 fl (35.1-43.9); Red Blood Count 4.43 M/mm3 (4.6-6.2); White Blood Count 9.2 K/mm3 (4.4-11.0)
[2020-05-10 08:09] LABS: Differential Indicated SCAN CRITERIA MET
[2020-05-10 08:10] LABS: Color, Urine Red (Yellow); Glucose, Dipstick Normal (Normal); Ketone-Dipstick 5 mg/dl (Negative); Leukocyte Esterase-Dipstick 500 /ul (Negative); Nitrite-Dipstick Negative (Negative); Occult Blood-Urine 250 /ul (Negative); Protein-Dipstick 100 mg/dl (Negative); Urine Bilirubin Dipstick Negative (Negative); Urine Clarity Turbid (Clear); Urine Urobilinogen Normal (Normal)
[2020-05-10 08:21] LABS: Anion Gap 4 (5-15); BUN 24 mg/dL (7-18); Calcium,Total 7.9 mg/dL (8.5-10.1); Chloride 110 mmol/L (98-107); Creatinine, Serum 1.09 mg/dL (0.70-1.30); EST Glomerular Filtration Rate 70 mL/min (>60); Est Glom Filt Rate - Afr Amer 85 mL/min (>60); Estimated Creatinine Clearance 56.65 ml/min; Glucose 112 mg/dL (74-106); Potassium 3.9 mmol/L (3.5-5.1); Sodium Level 142 mmol/L (136-145)
[2020-05-10 08:25] LABS: White Blood Cells 25-50 SEEN /hpf (0-5)
[2020-05-10 08:26] LABS: Bacteria 1+ /hpf (None Seen); Red Blood Cells-Urine > 100 SEEN /hpf (0-5)
--- NOTE | 2020-05-10 08:34 | HP.PCM_ITS ---
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 The patient is a 74 year old M who presents emergency room due to urinary retention and hematuria. Patient states last evening he noticed bright red blood on his depends. He states for several days he had only been voiding small amounts at a time and complains of dysuria. Today he had difficulty voiding at all and had increased blood in urine. He denies fever, chills. Denies nausea, vomiting. Patient has a history of prostate cancer approximately 12 years ago and states he has had intermittent hematuria since that time. Patient was recently placed back on his Eliquis due to atrial fibrillation. His past medical history includes persistent atrial fibrillation, hypertension, hyperlipidemia, chronic radiation cystitis, Parkinson's disease. Past Medical History Past Medical History (Chronic Problems): Chronic Problems (Last Updated 09/06/19 @ 11:08 by Pennie Loving) Parkinsons disease (Chronic) History of prostate cancer (Chronic) Chronic radiation cystitis (Chronic) DVT (deep venous thrombosis) (Chronic) residential (current) use of anticoagulants (Chronic) Other secondary pulmonary hypertension (Chronic) Cardiomyopathy in other diseases classified elsewhere (Chronic) Persistent atrial fibrillation (Chronic) S/P cardioversion on 04/21/2016 Hypertension (Chronic) Medical History: Medical History (Last Updated 09/06/19 @ 11:08 by Pennie Loving) Parkinsons disease (Chronic) G20 Chronic radiation cystitis (Chronic) N30.40 DVT (deep venous thrombosis) (Chronic) I82.409 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) Z79.01 Other secondary pulmonary hypertension (Chronic) I27.29 Cardiomyopathy in other diseases classified elsewhere (Chronic) I43 Persistent atrial fibrillation (Chronic) I48.1 S/P cardioversion on 04/21/2016 Hypertension (Chronic) I10 Localized edema R60.0 Prostate cancer C61 Localized edema (Inactive) R60.0 continuous churn buttermaker use of drug Z79.899 Allergies No Known Allergies Allergy (Verified 04/26/20 06:42) Home Medications: Ambulatory Orders Medication Instructions Recorded aspirin 81 mg tablet,delayed 81 mg PO DAILY 03/01/19 release atenolol 50 mg tablet 25 mg PO DAILY tab 09/06/19 carbidopa ER 25 mg-levodopa 100 mg 1 tab PO TID 09/06/19 tablet,extended release diltiazem HCl 120 mg capsule,24 120 mg PO DAILY #90 cap 02/13/20 hr,extended release potassium chloride 20 mEq 20 meq PO QDAY #90 tab 03/27/20 tablet,extended release pramipexole 0.5 mg tablet 0.5 mg PO QHS 03/27/20 rivaroxaban 20 mg tablet 20 mg PO DAILY #30 tab 05/09/20 Furosemide 40 mg PO DAILY 05/10/20 Oxybutynin Chloride [Oxybutynin 10 mg PO DAILY 05/10/20 Chloride ER] Surgical History: Surgical History (Last Reviewed 08/31/19 @ 16:08 by Pennie Loving) History of cataract extraction Z98.49 History of hernia repair Z98.890, Z87.19 Surgical History: - - Cystoscopy, transurethral resection bladder mass Psychiatric History: No pertinent psych hx Lives: Spouse/ Significant Other Smoking Status: Never smoker Alcohol: None Drugs: None - *Family History Maternal Family History: Family History (Last Reviewed 08/31/19 @ 16:08 by Pennie Loving) Brother Atrial fibrillation History Items: Heart Disease Paternal Family History: Family History (Last Reviewed 08/31/19 @ 16:08 by Pennie Loving) Brother Atrial fibrillation History Items: - - related to aortic aneurysm Review of Systems Constitutional: Denies: Chills, Fever, Weight Change HEENT: Denies: Head Aches, Sinus Congestion, Sinus Drainage Cardiovascular: Denies: Chest Pain, Palpitations Respiratory: Denies: Cough, Shortness of breath at rest, Sputum production Gastrointestinal: Denies: Abdominal Pain, Nausea, Vomiting Genitourinary: Reports: Dysuria, Hematuria, Retention Musculoskeletal: Denies: Joint Pain, Joint Tenderness Skin: Denies: Rash, Wounds Neurological: Denies: Numbness, Tingling, Focal weakness Psychiatric: Denies: Anxiety, Depression, Homicidal Ideations, Suicidal Ideations Hematologic/ Lymphatic: Denies: Easy Bruising, Easy Bleeding VTE Information - Inpt Only VTE Present on Admission: No VTE Mechan Device Prophylaxis: SCD's VTE Pharm Prophylaxis ordered?: No Reason prophylaxis not ordered:: Medical Contraindication Patient Problems: Active and Suspected Problems (Last Updated 09/06/19 @ 11:08 by Pennie Loving) Urinary retention (Acute) Bladder outflow obstruction (Acute) Hematuria (Acute) - Physical Exam Vitals/I&O's: Vital Signs Temp Pulse Resp BP Pulse Ox 97.3 F L 97 16 129/67 H 98 05/10/20 08:23 05/10/20 08:23 05/10/20 08:23 05/10/20 08:23 05/10/20 08:23 Oxygen Delivery Method Room Air Weight: 198 lb 10.184 oz Body Mass Index (BMI) 30.2 Finger Stick Blood Glucose 105 General: Alert, Oriented x3, Cooperative HEENT: Atraumatic, PERRLA, EOMI, Normocephalic Neck: Supple, No JVD, Negative Carotid Bruits Lungs: Clear to auscultation, Normal air movement Cardiovascular: - - Atrial fibrillation, rate controlled Abdomen: Bowel Sounds Present, Soft, Non Tender Extremities: No edema, Capillary Refill Less than 3 Seconds Skin: No rashes, No breakdown Musculoskeletal: No Tenderness to Palpation of Joints or Extremities Neurological: Cranial nerves II-XII grossly intact, Neuro grossly intact Psych/Mental Status: Normal Affect, Appropriate Laboratory Results 05/10/20 07:48: Urine Color Red, Urine Clarity Turbid, Urine pH 8.0, Ur Specific [place] 1.010, Urine Protein 100 H, Urine Glucose (UA) Normal, Urine Ketones 5 H , Urine Occult Blood 250 H, Urine Nitrite Negative, Urine Bilirubin Negative, Urine Urobilinogen Normal, Ur Leukocyte Esterase 500 H, Urine RBC > 100 SEEN, Urine WBC 25-50 SEEN, Ur Squamous Epith Cells 0 SEEN, Urine Bacteria 1+, Urine Mucus 0 SEEN 05/10/20 08:00: WBC 9.2, RBC 4.43 L, Hgb 13.3, Hct 41.2, MCV 93.0, MCH 30.0, MCHC 32.3, RDW Std Deviation 49.4 H, RDW Coeff of Manuela 14.5, Plt Count 201, MPV 9.5, Immature Gran % (Auto) 0.700, Neut % (Auto) 84.5 H, Lymph % (Auto) 4.3 L, [place] % (Auto) 9.4, Eos % (Auto) 1.0, Baso % (Auto) 0.1, Absolute Neuts (auto) 7.7, Absolute Lymphs (auto) 0.39 L, Nucleated RBC % 0 05/10/20 08:00: Sodium 142, Potassium 3.9, Chloride 110 H, Carbon Dioxide 28.0, Anion Gap 4 L, BUN 24 H, Creatinine 1.09, Estim Creat Clear Calc 56.65, Est GFR (MDRD) Af Amer 85, Est GFR (MDRD) Non-Af 70, BUN/Creatinine Ratio 22.0 H, Glucose 112 H, Calcium 7.9 L Assessment/Plan All Active Problems (Last Updated 09/06/19 @ 11:08 by Pennie Loving) Urinary retention (Acute) Bladder outflow obstruction (Acute) Hematuria (Acute) 1. Gross hematuria, urinary retention- Somers placed in ER. Hold xarelto. Urine culture pending. Afebrile, no leukocytosis. IV fluids. Bladder irrigation per orders. Patient will need outpatient follow-up with urology when hematuria is stabilized. 2. Persistent atrial fibrillation-continue atenolol, Cardizem. Xarelto on hold. 3. Hypertension-stable, continue atenolol. 4. Hyperlipidemia-mild, not on statin. 5. Chronic kidney disease stage III-stable, trend BMP. 6. History of prostate cancer with chronic radiation cystitis-previously underwent hyperbaric oxygen therapy for radiation cystitis. 7. Parkinson's disease-continue carbidopa/levodopa regimen. DVT prophylaxis-SCDs This patient was seen by STEPHENIE Weems under the supervision of Dr. Linda.
[2020-05-10] MEDS: 0.9% Normal Saline 1,000 ML 100 ML IV ×2 (11:18→20:18)
[2020-05-10] MEDS: CARBIDOPA/LEVODOPA CR 50/200 Tablet PO ×2 (14:34→21:15)
[2020-05-10] MEDS: 0.9% Saline Lock 10 ML Syringe IV ×2 (20:18→22:34)
[2020-05-10] MEDS: Acetaminophen 325 MG Tablet 650 MG PO (20:27)
[2020-05-10] MEDS: Morphine 4 MG/ML Syringe IV (21:15)
[2020-05-10] MEDS: Pramipexole Di-HCl 0.5 MG Tablet PO (21:15)
[2020-05-11 05:06] VITALS: BP 112/77; PULSE 87; RESP 16; TEMP 36.6; O2SAT 96
[2020-05-11] MEDS: CARBIDOPA/LEVODOPA CR 50/200 Tablet PO ×3 (05:12→21:06)
[2020-05-11 06:05] LABS: Absolute Lymphocyte Count 0.78 X10^3/uL (0.83-4.51); Absolute Neutrophil Count 6.5 X10^3/uL (2.0-7.7); Basophil# 0.02 X10^3/uL; Basophil% 0.2 % (0-1); Eosinophil# 0.25 X10^3/uL; Hematocrit 39.2 % (40-54); Hemoglobin 12.5 g/dL (13.0-16.5); Lymphocyte # 0.78 X10^3/ul (4.0); Lymphocyte % 9.4 % (19-41); Mean Corp Hgb Conc 31.9 g/dL (32-36); Mean Corpuscular Hgb 29.6 pg (27.0-32.0); Mean Corpuscular Volume 92.7 fL (80-94); Mean Platelet Vol. 10.1 fl (6.2-12.0); Monocyte# 0.71 X10^3/uL; Monocyte% 8.6 % (0-10); NRBC Flagged by Analyzer 0 % (0-5); Neutrophil # 6.49 X10^3/uL (2.7-7.7); Neutrophil % 78.3 % (47-70); Platelet Count 210 K/mm3 (150-450); RBC Distribution Width CV 14.6 % (11.6-14.6); RBC Distribution Width SD 49.2 fl (35.1-43.9); Red Blood Count 4.23 M/mm3 (4.6-6.2); White Blood Count 8.3 K/mm3 (4.4-11.0)
[2020-05-11] MEDS: 0.9% Normal Saline 1,000 ML 100 ML IV ×2 (07:11→17:26)
[2020-05-11 07:28] VITALS: PULSE 100
[2020-05-11] MEDS: dilTIAZem CD 120 MG Capsule PO (07:38)
[2020-05-11] MEDS: Tolterodine Tartrate 4 MG CAP.SA PO (07:38)
[2020-05-11] MEDS: Atenolol 25 MG Tablet PO (07:39)
[2020-05-11 09:34] VITALS: BP 113/73; PULSE 88; RESP 18; TEMP 36.7; O2SAT 95
[2020-05-11] MEDS: Furosemide 40 MG Tablet PO (09:38)
--- NOTE | 2020-05-11 09:39 | NURSING ---
Somers cath flushed with 40 ml of ns, one clot returned, along with the 40 ml of fld.
--- NOTE | 2020-05-11 10:03 | PCM.PROGNOTE ---
Patient Problems: Active and Suspected Problems (Last Updated 09/06/19 @ 11:08 by Pennie Loving) Urinary retention (Acute) Bladder outflow obstruction (Acute) Hematuria (Acute) Subjective: Patient seen and examined. Patient continues to have raj red blood in urine. Denies fever, chills. Denies other complaints. - Physical Exam Vitals/I&O's: Vital Signs Temp Pulse Resp BP Pulse Ox 98.1 F 88 18 113/73 95 05/11/20 09:34 05/11/20 09:34 05/11/20 09:34 05/11/20 09:34 05/11/20 09:34 Oxygen Delivery Method Room Air Weight: 197 lb 8.547 oz Body Mass Index (BMI) 30.0 Finger Stick Blood Glucose 105 Intake and Output for Last 24 Hours 05/09/20 05/10/20 05/11/20 23:59 23:59 23:59 Intake Total 3076.67 / 3076.67 923.33 / 923.33 Output Total 1440 / 1440 425 / 425 Balance 1636.67 / 1636.67 498.33 / 498.33 General: Alert, Oriented x3, Cooperative HEENT: Atraumatic, PERRLA, EOMI, Normocephalic Neck: Supple, No JVD, Negative Carotid Bruits Lungs: Clear to auscultation, Normal air movement Cardiovascular: - - Atrial fibrillation, rate controlled Abdomen: Bowel Sounds Present, Soft, Non Tender, Non-Distended Extremities: No clubbing, No cyanosis, No edema, Capillary Refill Less than 3 Seconds Skin: No rashes, No breakdown Musculoskeletal: No Tenderness to Palpation of Joints or Extremities Neurological: Cranial nerves II-XII grossly intact, Neuro grossly intact Psych/Mental Status: Normal Affect, Appropriate Microbiology Past 72 Hours 05/10/20 07:48 Urine, Catheterized Urine Culture - Preliminary Gram negative mady Laboratory Results 05/11/20 05:16: WBC 8.3, RBC 4.23 L, Hgb 12.5 L, Hct 39.2 L, MCV 92.7, MCH 29.6, MCHC 31.9 L, RDW Std Deviation 49.2 H, RDW Coeff of Manuela 14.6, Plt Count 210, MPV 10.1, Immature Gran % (Auto) 0.500, Neut % (Auto) 78.3 H, Lymph % (Auto) 9.4 L, [place] % (Auto) 8.6, Eos % (Auto) 3.0, Baso % (Auto) 0.2, Absolute Neuts (auto) 6.5, Absolute Lymphs (auto) 0.78 L, Nucleated RBC % 0 Current Medications Acetaminophen (Acetaminophen 325 Mg Tablet) 650 mg PO Q6H PRN PRN PRN Reason: Pain Score 1-10/Temp > 100.7 F Last Admin: 05/10/20 20:27 Dose: 650 mg Documented by: Atenolol (Atenolol 25 Mg Tablet) 25 mg PO DAILY [facility] Last Admin: 05/11/20 07:39 Dose: 25 mg Documented by: Carbidopa/Levodopa (Carbidopa/Levodopa Cr 50/200 Tablet) 1 tablet PO TID [facility] Last Admin: 05/11/20 05:12 Dose: 1 tablet Documented by: Diltiazem HCl (Diltiazem Cd 120 Mg Capsule) 120 mg PO DAILY [facility] Last Admin: 05/11/20 07:38 Dose: 120 mg Documented by: Furosemide (Furosemide 40 Mg Tablet) 40 mg PO DAILY [facility] Last Admin: 05/11/20 09:38 Dose: 40 mg Documented by: Sodium Chloride () 1,000 mls @ 100 mls/hr IV .Q10H [facility] Last Admin: 05/11/20 07:11 Dose: 100 mls/hr Documented by: Ceftriaxone Sodium 2 gm/ (Sodium Chloride) 50 mls @ 100 mls/hr IV Q24H [facility] Last Infusion: 05/10/20 23:04 Dose: Infused Documented by: Morphine Sulfate (Morphine 4 Mg/Ml Syringe) 4 mg IV Q3H PRN PRN PRN Reason: Pain Score 6-10 Last Admin: 05/10/20 21:15 Dose: 4 mg Documented by: Ondansetron HCl (Ondansetron 4 Mg/2 Ml Vial) 4 mg IV Q8H PRN PRN PRN Reason: NAUSEA/VOMITING Oxycodone HCl (Oxycodone 5 Mg Tablet) 10 mg PO Q4H PRN PRN PRN Reason: Pain Score 4-5 Potassium Chloride (Potassium Chloride 20 Meq Tablet) 20 meq PO DAILY@0800 [facility] Last Admin: 05/11/20 07:38 Dose: 20 meq Documented by: Pramipexole Dihydrochloride (Pramipexole Di-Hcl 0.5 Mg Tablet) 0.5 mg PO QHS [facility] Last Admin: 05/10/20 21:15 Dose: 0.5 mg Documented by: Sodium Chloride (0.9% Saline Lock 10 Ml Syringe) 10 - 40 ml IV UD PRN PRN Reason: SALINE FLUSH Last Admin: 05/10/20 22:34 Dose: 20 ml Documented by: Temazepam (Temazepam 15 Mg Capsule) 15 mg PO QHS PRN PRN PRN Reason: INSOMNIA Tolterodine Tartrate (Tolterodine Tartrate 4 Mg Cap.Sa) 4 mg PO DAILY [facility] Last Admin: 05/11/20 07:38 Dose: 4 mg Documented by: Medical Necessity - Tobacco Use Smoking Status: Never smoker Assessment/Plan All Active Problems (Last Updated 09/06/19 @ 11:08 by Pennie Loving) Urinary retention (Acute) Bladder outflow obstruction (Acute) Hematuria (Acute) 1. Gross hematuria, urinary retention- Somers placed in ER. Hold xarelto. Urine culture growing gram-negative mady 25-50,000 colony count. Initiated on Rocephin empirically pending final culture. Afebrile, no leukocytosis. IV fluids. Bladder irrigation per orders. Patient will need outpatient follow-up with urology when hematuria is stabilized. 2. Persistent atrial fibrillation-continue atenolol, Cardizem. Xarelto on hold. 3. Hypertension-stable, continue atenolol. 4. Hyperlipidemia-mild, not on statin. 5. Chronic kidney disease stage III-stable, trend BMP. 6. History of prostate cancer with chronic radiation cystitis-previously underwent hyperbaric oxygen therapy for radiation cystitis. 7. Parkinson's disease-continue carbidopa/levodopa regimen. DVT prophylaxis-SCDs This patient was seen by STEPHENIE Weems under the supervision of Dr. Linda.
[2020-05-11] MEDS: 0.9% Saline Lock 10 ML Syringe IV (13:40)
[2020-05-11 16:03] VITALS: BP 136/84; PULSE 92; RESP 18; TEMP 37.4; O2SAT 97
[2020-05-11] MEDS: Morphine 4 MG/ML Syringe IV (21:05)
[2020-05-11] MEDS: Temazepam 15 MG Capsule PO (21:06)
[2020-05-11] MEDS: Pramipexole Di-HCl 0.5 MG Tablet PO (21:06)
[2020-05-11 21:13] VITALS: BP 134/95; PULSE 99; RESP 18; TEMP 37.5; O2SAT 95
[2020-05-12 03:19] VITALS: BP 123/73; PULSE 104; RESP 18; TEMP 37.1; O2SAT 96
[2020-05-12] MEDS: oxyCODONE 5 MG Tablet 10 MG PO (03:24)
[2020-05-12] MEDS: 0.9% Normal Saline 1,000 ML 100 ML IV (03:24)
[2020-05-12] MEDS: CARBIDOPA/LEVODOPA CR 50/200 Tablet PO (06:35)
[2020-05-12 07:19] LABS: Hematocrit 39.8 % (40-54); Hemoglobin 12.7 g/dL (13.0-16.5); Mean Corp Hgb Conc 31.9 g/dL (32-36); Mean Corpuscular Hgb 29.8 pg (27.0-32.0); Mean Corpuscular Volume 93.4 fL (80-94); Mean Platelet Vol. 9.7 fl (6.2-12.0); Platelet Count 231 K/mm3 (150-450); RBC Distribution Width CV 14.5 % (11.6-14.6); RBC Distribution Width SD 49.6 fl (35.1-43.9); Red Blood Count 4.26 M/mm3 (4.6-6.2); White Blood Count 6.6 K/mm3 (4.4-11.0)
--- NOTE | 2020-05-12 07:31 | PCM.CONS.U ---
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 Unfortunately the patient did have heavy bleeding presented to the emergency room the catheter was put in but stopped the bleeding and now the urine is finally clear. So at this point he will have to go home with a catheter to let the urethra and the prostate heal up the bleeding from the urethra and the prostate areas get history of prostate cancer scar tissue. I do not think at this point he can be restarted on blood thinners at the go home with a catheter. Past Medical History Past Medical History (Chronic Problems): Chronic Problems (Last Updated 09/06/19 @ 11:08 by Pennie Loving) Parkinsons disease (Chronic) History of prostate cancer (Chronic) Chronic radiation cystitis (Chronic) DVT (deep venous thrombosis) (Chronic) retirement (current) use of anticoagulants (Chronic) Other secondary pulmonary hypertension (Chronic) Cardiomyopathy in other diseases classified elsewhere (Chronic) Persistent atrial fibrillation (Chronic) S/P cardioversion on 04/21/2016 Hypertension (Chronic) Medical History: Medical History (Last Reviewed 05/12/20 @ 07:[address] 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) Z79.01 Other secondary pulmonary hypertension (Chronic) I27.29 Cardiomyopathy in other diseases classified elsewhere (Chronic) I43 Persistent atrial fibrillation (Chronic) I48.1 S/P cardioversion on 04/21/2016 Hypertension (Chronic) I10 Localized edema R60.0 Prostate cancer C61 Localized edema (Inactive) R60.0 retirement use of drug Z79.899 Allergies No Known Allergies Allergy (Verified 04/26/20 06:42) Home Medications: Ambulatory Orders Medication Instructions Recorded aspirin 81 mg tablet,delayed 81 mg PO DAILY 03/01/19 release atenolol 50 mg tablet 25 mg PO DAILY tab 09/06/19 carbidopa ER 25 mg-levodopa 100 mg 1 tab PO TID 09/06/19 tablet,extended release diltiazem HCl 120 mg capsule,24 120 mg PO DAILY #90 cap 02/13/20 hr,extended release potassium chloride 20 mEq 20 meq PO QDAY #90 tab 03/27/20 tablet,extended release pramipexole 0.5 mg tablet 0.5 mg PO QHS 03/27/20 rivaroxaban 20 mg tablet 20 mg PO DAILY #30 tab 05/09/20 Furosemide 40 mg PO DAILY 05/10/20 Oxybutynin Chloride [Oxybutynin 10 mg PO DAILY 05/10/20 Chloride ER] Surgical History: Surgical History (Last Reviewed 08/31/19 @ 16:08 by Pennie Loving) History of cataract extraction Z98.49 History of hernia repair Z98.890, Z87.19 Surgical History: - - Cystoscopy, transurethral resection bladder mass Psychiatric History: No pertinent psych hx Lives: Spouse/ Significant Other Smoking Status: Never smoker Alcohol: None Drugs: None - *Family History Maternal Family History: Family History (Last Reviewed 08/31/19 @ 16:08 by Pennie Loving) Brother Atrial fibrillation History Items: Heart Disease Paternal Family History: Family History (Last Reviewed 08/31/19 @ 16:08 by Pennie Loving) Brother Atrial fibrillation History Items: - - related to aortic aneurysm Review of Systems Constitutional: Denies: Chills, Fever, Weight Change HEENT: Denies: Head Aches, Sinus Congestion, Sinus Drainage Cardiovascular: Denies: Chest Pain, Palpitations Respiratory: Denies: Cough, Shortness of breath at rest, Sputum production Gastrointestinal: Denies: Abdominal Pain, Nausea, Vomiting Genitourinary: Denies: Dysuria Musculoskeletal: Denies: Joint Pain, Joint Tenderness Skin: Denies: Rash, Wounds Neurological: Denies: Numbness, Tingling, Focal weakness Psychiatric: Denies: Anxiety, Depression, Homicidal Ideations, Suicidal Ideations Hematologic/ Lymphatic: Denies: Easy Bruising, Easy Bleeding Physical Exam - Physical Exam Vital Signs Temp 98.8 F 05/12/20 03:19 Pulse 104 H 05/12/20 03:19 Resp 18 05/12/20 03:19 BP 123/73 H 05/12/20 03:19 Pulse Ox 96 05/12/20 03:19 Intake & Output 05/10/20 05/11/20 05/12/20 23:59 23:59 23:59 Intake Total 3076.67 / 3076.67 2580.00 / 2780.00 780 / 780 Output Total 1440 / 1440 925 / 2075 1600 / 1600 Balance 1636.67 / 1636.67 1655.00 / 705.00 -820 / -820 Weight: 89.6 kg Intake: Oral 1900 / 1900 390 / 590 200 / 200 Intake, IV Amount 1176.67 / 1176.67 2190.00 / 2190.00 580 / 580 0.9% Normal Saline 1,000 ML @ 1126.67 / 1126.67 2140.00 / 2140.00 580 / 580 100 mls/hr IV .Q10H FIDE Rx#: [id number] Ceftriaxone 2 GM In 0.9% Normal 50 / 50 50 / 50 Saline 50 ML @ 100 mls/hr IV Q24H FIDE Rx#:[id number] Output: Urine 1400 / 1400 925 / 2075 1600 / 1600 Other 40 / 40 Other: Intake, Continuous Bladder 80 80 Irrigation Number of Bowel Movements 1 General: Alert, Oriented x3 HEENT: Atraumatic Oral: Moist Mucosa Neck: Supple Lungs: Clear to auscultation Abdomen: Soft Rectal: Exam deferred Microbiology Past 72 Hours 05/10/20 07:48 Urine Culture - Preliminary Urine, Catheterized Gram negative mady Laboratory Tests Past 24 Hrs 05/12/20 06:44 WBC 6.6 RBC 4.26 L Hgb 12.7 L Hct 39.8 L MCV 93.4 MCH 29.8 MCHC 31.9 L RDW Std Deviation 49.6 H RDW Coeff of Manuela 14.5 Plt Count 231 MPV 9.7 Assessment/Plan All Active Problems (Last Updated 09/06/19 @ 11:08 by Pennie Loving) Urinary retention (Acute) Bladder outflow obstruction (Acute) Hematuria (Acute) 74-year-old male with history of prostate cancer urethral scar tissue, recent anticoagulation because heavy bleeding so unfortunately he will not be able to be anticoagulated for now I think we will have to wait at least 6 weeks if you want to try to anticoagulate him let the urethra and prostate heal up completely and then in 6 weeks would be possible to resume anticoagulation patient understands that without anticoagulation of course is a small risk of complications because he is not on anticoagulation due to the fact that he cannot be because of bleeding. He will have to go home with a catheter call me with questions.
[2020-05-12 08:20] VITALS: BP 126/78; PULSE 95; RESP 18; TEMP 36.9; O2SAT 97
[2020-05-12] MEDS: Furosemide 40 MG Tablet PO (08:20)
[2020-05-12] MEDS: Atenolol 25 MG Tablet PO (08:21)
[2020-05-12] MEDS: dilTIAZem CD 120 MG Capsule PO (08:21)
[2020-05-12] MEDS: Tolterodine Tartrate 4 MG CAP.SA PO (08:21)
--- NOTE | 2020-05-12 09:50 | CASEMGMT ---
LUIS CM in to discuss ANTOINE for with patient. ANTOINE for explained to patient, patient voices understanding. Patient signed ANTOINE form and filed on chart. Copy of signed ANTOINE form provided to patient. Patient had no further questions or concerns.
--- NOTE | 2020-05-12 10:10 | DCINST_ITS ---
- Discharge Diagnoses Current Active Problems: Current Active and Chronic Problems (Last Reviewed 05/12/20 @ 07:[address] Robert Prather MD) Urinary retention (Acute) Parkinsons disease (Chronic) History of prostate cancer (Chronic) Chronic radiation cystitis (Chronic) DVT (deep venous thrombosis) (Chronic) Bladder outflow obstruction (Acute) Hematuria (Acute) [facility] (current) use of anticoagulants (Chronic) Other secondary pulmonary hypertension (Chronic) Cardiomyopathy in other diseases classified elsewhere (Chronic) Persistent atrial fibrillation (Chronic) S/P cardioversion on 04/21/2016 Hypertension (Chronic) You will use the following diet at home:: No restrictions Discharge Activity: Return to Normal Activity Call your doctor if you observe: Fever of 101 or Higher, Shortness of breath, Dizziness, Chest pain Instructions: ED Somers Catheter Care, ED Urinary Retention Male Allergies/Adverse Reactions: Allergies No Known Allergies Allergy (Verified 04/26/20 06:42) Medications to take at Discharge atenolol 50 mg tablet 25 mg PO DAILY tab 09/06/19 carbidopa ER 25 mg-levodopa 100 mg tablet,extended release 1 tab PO TID 09/06/19 diltiazem HCl 120 mg capsule,24 hr,extended release 120 mg PO DAILY #90 cap 02/13/20 potassium chloride 20 mEq tablet,extended release 20 meq PO QDAY #90 tab 03/27/20 pramipexole 0.5 mg tablet 0.5 mg PO QHS 03/27/20 Furosemide 40 mg PO DAILY 05/10/20 Oxybutynin Chloride [Oxybutynin Chloride ER] 10 mg PO DAILY 05/10/20 Cefdinir [Omnicef [equiv]] 600 mg PO DAILY #10 cap 05/12/20 Oxycodone [Oxyir] 5 mg PO Q4H PRN PRN 3 Days #15 tablet 05/12/20 The following prescriptions were given: Cefdinir [Omnicef [equiv]] 600 mg PO DAILY #10 cap Transmission Status: Pending to [address] Oxycodone [Oxyir] 5 mg PO Q4H PRN PRN 3 Days #15 tablet PRN Reason: Pain Score 6-10 Transmission Status: Received by [address] Primary Care Physician: Masoud Rosa MD [Primary Care Provider] - Please follow up with your Primary Care Physician in: 1 Week Test Results: Test results from this visit will be discussed in further detail at your follow- up appointment, if applicable. Please Follow Up With: Robert Prather MD When: 1 Week, please make appt prior to DC Proposed Discharge Date: 05/12/20
--- NOTE | 2020-05-12 10:14 | PCM.DC.SUM ---
Discharge Date and Diagnosis - Problem List Patient Problems: Active and Suspected Problems (Last Reviewed 05/12/20 @ 07:[address] Robert Prather MD) Urinary retention (Acute) Bladder outflow obstruction (Acute) Hematuria (Acute) Date of Admission: 05/10/20 Date of Discharge: 05/12/20 - Primary Discharge Diagnosis Acute Problems: Active Problems (Last Reviewed 05/12/20 @ 07:[address] Robert Prather MD) 1. Gross hematuria, urinary retention 2. Persistent atrial fibrillation 3. Hypertension 4. Hyperlipidemia 5. Chronic kidney disease stage III 6. History of prostate cancer with chronic radiation cystitis 7. Parkinson's disease - Secondary Discharge Diagnosis Chronic Problems: Chronic Problems (Last Reviewed 05/12/20 @ 07:[address] 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 Prather- Urology Operations: None Procedures: None Summary of Care Provided: The patient is a 74 year old M admitted 05/10/2020 due to urinary retention and hematuria. 1. Gross hematuria, urinary retention-history of prostate cancer with urethral scar tissue. Urology consulted. Continue to hold Xarelto at discharge for at least 6 weeks. Somers placed in ER. Discharge on Somers catheter with outpatient follow-up with Dr. Prather. Urine culture growing Proteus. Discharged on Omnicef for 5 days to complete course. 2. Persistent atrial fibrillation-continue atenolol, Cardizem. Xarelto on hold. 3. Hypertension-stable, continue atenolol. 4. Hyperlipidemia-mild, not on statin. 5. Chronic kidney disease stage III-stable, trend BMP. 6. History of prostate cancer with chronic radiation cystitis-previously underwent hyperbaric oxygen therapy for radiation cystitis. 7. Parkinson's disease-continue carbidopa/levodopa regimen. General: Alert, Oriented x3, Cooperative HEENT: Atraumatic, PERRLA, EOMI, Normocephalic Neck: Supple, No JVD, Negative Carotid Bruits Lungs: Clear to auscultation, Normal air movement Cardiovascular: - - Atrial fibrillation, rate controlled Abdomen: Bowel Sounds Present, Soft, Non Tender, Non-Distended Extremities: No clubbing, No cyanosis, No edema, Capillary Refill Less than 3 Seconds Skin: No rashes, No breakdown Musculoskeletal: No Tenderness to Palpation of Joints or Extremities Neurological: Cranial nerves II-XII grossly intact, Neuro grossly intact Psych/Mental Status: Normal Affect, Appropriate Patient seen and examined prior to discharge. Physical assessment as noted above. Patient is stable for discharge with follow up recommendations as noted above. This patient was seen by STEPHENIE Weems under the supervision of Dr. Linda. Patient Problems: Active and Suspected Problems (Last Reviewed 05/12/20 @ 07:[address] Robert Prather MD) Urinary retention (Acute) Bladder outflow obstruction (Acute) Hematuria (Acute) - Physical Exam Vitals/I&O's: Vital Signs Temp Pulse Resp BP Pulse Ox 98.5 F 95 18 126/78 H 97 05/12/20 08:20 05/12/20 08:20 05/12/20 08:20 05/12/20 08:20 05/12/20 08:20 Oxygen Delivery Method Room Air Weight: 197 lb 8.547 oz Body Mass Index (BMI) 30.0 Finger Stick Blood Glucose 105 Intake and Output for Last 24 Hours 05/10/20 05/11/20 05/12/20 23:59 23:59 23:59 Intake Total 3076.67 / 3076.67 2580.00 / 2780.00 780 / 780 Output Total 1440 / 1440 925 / 2075 1600 / 1600 Balance 1636.67 / 1636.67 1655.00 / 705.00 -820 / -820 Microbiology Past 72 Hours 05/10/20 07:48 Urine, Catheterized Urine Culture - Final Proteus mirabilis Laboratory Results 05/12/20 06:44: WBC 6.6, RBC 4.26 L, Hgb 12.7 L, Hct 39.8 L, MCV 93.4, MCH 29.8, MCHC 31.9 L, RDW Std Deviation 49.6 H, RDW Coeff of Manuela 14.5, Plt Count 231, MPV 9.7 Current Medications Acetaminophen (Acetaminophen 325 Mg Tablet) 650 mg PO Q6H PRN PRN PRN Reason: Pain Score 1-10/Temp > 100.7 F Last Admin: 05/10/20 20:27 Dose: 650 mg Documented by: Atenolol (Atenolol 25 Mg Tablet) 25 mg PO DAILY REPLACED BY [facility] Last Admin: 05/12/20 08:21 Dose: 25 mg Documented by: Carbidopa/Levodopa (Carbidopa/Levodopa Cr 50/200 Tablet) 1 tablet PO TID REPLACED BY [facility] Last Admin: 05/12/20 06:35 Dose: 1 tablet Documented by: Diltiazem HCl (Diltiazem Cd 120 Mg Capsule) 120 mg PO DAILY REPLACED BY [facility] Last Admin: 05/12/20 08:21 Dose: 120 mg Documented by: Furosemide (Furosemide 40 Mg Tablet) 40 mg PO DAILY REPLACED BY [facility] Last Admin: 05/12/20 08:20 Dose: 40 mg Documented by: Sodium Chloride () 1,000 mls @ 100 mls/hr IV .Q10H REPLACED BY [facility] Last Admin: 05/12/20 03:24 Dose: 100 mls/hr Documented by: Ceftriaxone Sodium 2 gm/ (Sodium Chloride) 50 mls @ 100 mls/hr IV Q24H REPLACED BY [facility] Last Infusion: 05/11/20 21:36 Dose: Infused Documented by: Morphine Sulfate (Morphine 4 Mg/Ml Syringe) 4 mg IV Q3H PRN PRN PRN Reason: Pain Score 6-10 Last Admin: 05/11/20 21:05 Dose: 4 mg Documented by: Ondansetron HCl (Ondansetron 4 Mg/2 Ml Vial) 4 mg IV Q8H PRN PRN PRN Reason: NAUSEA/VOMITING Oxycodone HCl (Oxycodone 5 Mg Tablet) 10 mg PO Q4H PRN PRN PRN Reason: Pain Score 4-5 Last Admin: 05/12/20 03:24 Dose: 10 mg Documented by: Potassium Chloride (Potassium Chloride 20 Meq Tablet) 20 meq PO DAILY@0800 REPLACED BY [facility] Last Admin: 05/12/20 08:20 Dose: 20 meq Documented by: Pramipexole Dihydrochloride (Pramipexole Di-Hcl 0.5 Mg Tablet) 0.5 mg PO QHS REPLACED BY [facility] Last Admin: 05/11/20 21:06 Dose: 0.5 mg Documented by: Sodium Chloride (0.9% Saline Lock 10 Ml Syringe) 10 - 40 ml IV UD PRN PRN Reason: SALINE FLUSH Last Admin: 05/11/20 13:40 Dose: 10 ml Documented by: Temazepam (Temazepam 15 Mg Capsule) 15 mg PO QHS PRN PRN PRN Reason: INSOMNIA Last Admin: 05/11/20 21:06 Dose: 15 mg Documented by: Tolterodine Tartrate (Tolterodine Tartrate 4 Mg Cap.Sa) 4 mg PO DAILY FIDE Last Admin: 05/12/20 08:21 Dose: 4 mg Documented by: Discharge Diet: No Restrictions Discharge Activity: Return to Normal Activity Call your doctor if you observe: Fever of 101 or Higher, Shortness of breath, Dizziness, Chest pain Home Medications: Medications to take at Discharge atenolol 50 mg tablet 25 mg PO DAILY tab 09/06/19 carbidopa ER 25 mg-levodopa 100 mg tablet,extended release 1 tab PO TID 09/06/19 diltiazem HCl 120 mg capsule,24 hr,extended release 120 mg PO DAILY #90 cap 02/13/20 potassium chloride 20 mEq tablet,extended release 20 meq PO QDAY #90 tab 03/27/20 pramipexole 0.5 mg tablet 0.5 mg PO QHS 03/27/20 Furosemide 40 mg PO DAILY 05/10/20 Oxybutynin Chloride [Oxybutynin Chloride ER] 10 mg PO DAILY 05/10/20 Cefdinir [Omnicef [equiv]] 600 mg PO DAILY #10 cap 05/12/20 Oxycodone [Oxyir] 5 mg PO Q4H PRN PRN 3 Days #15 tablet 05/12/20 Following Prescriptions Were Given to Patient: Cefdinir [Omnicef [equiv]] 600 mg PO DAILY #10 cap Transmission Status: Pending to [address] Oxycodone [Oxyir] 5 mg PO Q4H PRN PRN 3 Days #15 tablet PRN Reason: Pain Score 6-10 Transmission Status: Received by [address] Primary Care Physician: Masoud Rosa MD [Primary Care Provider] - Please follow up with your Primary Care Physician in: 1 Week Please Follow Up With: Robert Prather MD When: 1 Week, please make appt prior to DC Patient Instructions: ED Somers Catheter Care, ED Urinary Retention Male Disposition: Home Minutes spent on discharge:: 35 Patient Condition:: Stable Medical Necessity - Tobacco Use Smoking Status: Never smoker Meaningful Use Info Meaningful Use Diagnoses (Choose all that apply): None applicable
[2020-05-12 11:20] VITALS: BP 120/83; PULSE 89; RESP 18; TEMP 36.6; O2SAT 97
== END 2020-05-12 12:11 | disposition home or self-care (01) ==
LOC: ED 07:10 → MS3 08:24
PROVIDERS: Emergency Medicine; Nurse Practitioner Family; Admitting Provider Internal Medicine; Emergency Provider Emergency Medicine; PCP Family Medicine; Visit Provider Internal Medicine
DX: N30.01 Acute cystitis with hematuria (principal); B96.4 Proteus (mirabilis) (morganii) as the cause of diseases classified elsewhere; N32.0 Bladder-neck obstruction; R33.9 Retention of urine, unspecified; E78.5 Hyperlipidemia, unspecified; I48.19 Other persistent atrial fibrillation; I12.9 Hypertensive chronic kidney disease with stage 1 through stage 4 chronic kidney disease, or unspecified chronic kidney disease; N18.30 Chronic kidney disease, stage 3 unspecified; Y84.2 Radiological procedure and radiotherapy as the cause of abnormal reaction of the patient, or of later complication, without mention of misadventure at the time of the procedure; Z85.46 Personal history of malignant neoplasm of prostate; I42.9 Cardiomyopathy, unspecified; I27.29 Other secondary pulmonary hypertension; G20 Parkinson's disease; Z79.899 Other long term (current) drug therapy; Z79.82 Long term (current) use of aspirin; Z86.718 Personal history of other venous thrombosis and embolism; Z79.01 Long term (current) use of anticoagulants
CPT/HCPCS: 36415; 51702; 80048; 81001; 85025; 85027; 87077; 87086; 87088; 87186; 96361; 96365; 96366; 96375; 96376; 99218; 99285; J7030; A4216; G0378; J0696

== ENCOUNTER → 2020-06-19 13:24 | Outpatient (CLI) | payer MEDICARE, SELFPAY ==
[2020-06-19 14:09] LABS: PSA,Total- Diagnostic 0.04 ng/mL (0.0-4.0)
== END ==
PROVIDERS: PCP Family Medicine; Visit Provider Urology
DX: C61 Malignant neoplasm of prostate (principal)
CPT/HCPCS: 36415; 84153

== ENCOUNTER → 2020-09-18 10:49 | Outpatient (CLI) | payer MEDICARE, SELFPAY ==
[2020-09-18 12:09] LABS: PSA,Total- Diagnostic 0.03 ng/mL (0.0-4.0)
== END ==
PROVIDERS: PCP Family Medicine; Referring Provider Urology; Visit Provider Urology
DX: C61 Malignant neoplasm of prostate (principal)
CPT/HCPCS: 36415; 84153

== ENCOUNTER → 2020-09-25 10:21 | Outpatient (CLI) | payer MEDICARE, SELFPAY ==
[2020-09-25 09:27] VITALS: BMI 31.3
[2020-09-25 11:03] LABS: Absolute Lymphocyte Count 0.79 X10^3/uL (0.83-4.51); Absolute Neutrophil Count 3.4 X10^3/uL (2.0-7.7); Basophil# 0.02 X10^3/uL; Basophil% 0.4 % (0-1); Eosinophil# 0.27 X10^3/uL; Eosinophils% 5.3 % (0-5); Hematocrit 40.6 % (40-54); Hemoglobin 11.6 g/dL (13.0-16.5); Lymphocyte # 0.79 X10^3/ul (4.0); Lymphocyte % 15.6 % (19-41); Mean Corp Hgb Conc 28.6 g/dL (32-36); Mean Corpuscular Hgb 21.4 pg (27.0-32.0); Mean Corpuscular Volume 74.9 fL (80-94); Mean Platelet Vol. 10.4 fl (6.2-12.0); Monocyte# 0.57 X10^3/uL; Monocyte% 11.2 % (0-10); NRBC Flagged by Analyzer 0 % (0-5); Neutrophil % 66.9 % (47-70); Platelet Count 284 K/mm3 (150-450); RBC Distribution Width CV 17.7 % (11.6-14.6); RBC Distribution Width SD 47.4 fl (35.1-43.9); Red Blood Count 5.42 M/mm3 (4.6-6.2); White Blood Count 5.1 K/mm3 (4.4-11.0)
[2020-09-25 11:26] LABS: Anion Gap 5 (5-15); BUN 18 mg/dL (7-18); BUN/Creat Ratio 17.3 RATIO (10-20); Calcium,Total 8.8 mg/dL (8.5-10.1); Chloride 105 mmol/L (98-107); Creatinine, Serum 1.04 mg/dL (0.70-1.30); EST Glomerular Filtration Rate 74 mL/min (>60); Est Glom Filt Rate - Afr Amer 89 mL/min (>60); Glucose 100 mg/dL (74-106); Potassium 3.9 mmol/L (3.5-5.1); Sodium Level 141 mmol/L (136-145)
[2020-09-25 16:16] LABS: BNP,B-Type NATRIURETIC PEPTIDE 267.7 pg/mL (0-100)
== END ==
PROVIDERS: PCP Family Medicine; Referring Provider Nurse Practitioner Family; Visit Provider Nurse Practitioner Family
DX: R06.00 Dyspnea, unspecified (principal); I43 Cardiomyopathy in diseases classified elsewhere; I48.19 Other persistent atrial fibrillation; I10 Essential (primary) hypertension
CPT/HCPCS: 36415; 80048; 83880; 85025

== ENCOUNTER 2020-11-12 16:57 | Inpatient (IN) | payer MEDICARE, SELFPAY ==
[2020-09-25 09:27] VITALS: BMI 31.3
[2020-11-12] VITALS (12 sets, daily range): BP systolic 105–167; BP diastolic 72–103; PULSE 95–119; RESP 16–24; TEMP 36.4–39.2; O2SAT 95–99; BMI 33.0; BMI 33.7
--- NOTE | 2020-11-12 17:16 | EKG12_ITS ---
Test Reason : SOB Blood Pressure : / mmHG Vent. Rate : 128 BPM Atrial Rate : 170 BPM P-R Int : 000 ms QRS Dur : 084 ms QT Int : 266 ms P-R-T Axes : 000 -03 015 degrees QTc Int : 388 ms Atrial fibrillation with rapid ventricular response Nonspecific ST abnormality Poor R wave progression Abnormal ECG Confirmed by MARK HAYWARD, ANDRE ([id number]), editor publications TAYLOR RENO ([id number]) on 11/17/2020 2:20:57 PM Referred By: TINO Confirmed By:ANDRE FLORES MD
--- NOTE | 2020-11-12 17:17 | EX.ED.DYSGE1 ---
HPI History of Present Illness Chief Complaint: Confusion Informant: spouse/S.O. Limited: other (Patient's confusion.) Onset/Context/Timing Onset: Today Narrative Narrative: 75-year-old male presenting with confusion. His said it started today. Patient was started on antibiotics yesterday for UTI. Today he has a fever which was noticed when EMS arrived to evaluate his confusion. Patient unable to tell what year it is currently. His said she has not checked his temperature at home. He has not received anything for fever. She states that he did have a headache earlier today and he also complained of nausea. He has not had vomiting. It is unknown if he has been exposed to COVID-19, and the patient has not been vaccinated per his . Patient's also states that he has history of atrial fibrillation and is and not anticoagulated secondary to Parkinson's and recurrent falls. He does not report any falls today. 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 Other secondary pulmonary hypertension Parkinsons disease Persistent atrial fibrillation Prostate cancer Home Medications diltiazem HCl 120 mg capsule,24 hr,extended release 120 mg PO DAILY #90 cap 02/13/20 [Rx Last Taken 05/10/20] potassium chloride 20 mEq tablet,extended release 20 meq PO QDAY #90 tab 03/27/20 [Rx Last Taken Unknown] pramipexole 0.5 mg tablet 0.5 mg PO QHS 03/27/20 [History Last Taken Unknown] furosemide 40 mg PO DAILY 05/10/20 [History Last Taken Unknown] oxybutynin chloride 10 mg PO DAILY 05/10/20 [History Last Taken Unknown] atenolol 50 mg tablet 50 mg PO .COMPLEX tablet 09/25/20 [History Last Taken Unknown] calcium carbonate 600 mg (1,500 mg)-vitamin D3 500 unit capsule cap PO DAILY 09/25/20 [History Last Taken Unknown] carbidopa ER 50 mg-levodopa 200 mg tablet,extended release 1 tablet PO TID tablet 09/25/20 [History Last Taken Unknown] dorzolamide 22.3 mg-timolol 6.8 mg/mL eye drops 1 drp OPHTHALMIC BID ml 09/25/20 [History Last Taken Unknown] atenolol 25 mg PO QHS 11/12/20 [History Last Taken Unknown] Allergy/AdvReac Type Severity Reaction Status Date / Time No Known Allergies Allergy Verified 11/12/20 17:02 Family History Brother Atrial fibrillation Surgical History History of cataract extraction History of hernia repair Social History Smoking Status: Never smoker alcohol intake: never substance use type: does not use caffeine: Yes Type: carbonated beverages Number of servings: 1 ROS ROS ED Review of Systems ROS Unobtainable: due to mental status Constitutional Constitutional ED: Reports fever(s) and subjective; Denies sweats Eyes Eyes: Denies blurry vision or change in vision ENT ENT ED: Denies ear pain or rhinorrhea Cardiovascular Cardiovascular: Reports racing heartbeat; Denies chest pain Respiratory/Chest Respiratory/Chest: Denies cough Gastrointestinal Gastrointestinal: Reports nausea; Denies abdominal pain, diarrhea or vomiting Genitourinary Genitourinary ED: Reports dysuria Musculoskeletal Musculoskeletal: Denies arthralgias or myalgias Integumentary Denies abscess or rash Neurologic Neurologic: Reports headache(s); Denies paresthesias or weakness Psychiatric Psychiatric: Denies anxiety or depression EXAM Physical Exam Const Vital Signs: 11/12/20 16:58 11/12/20 17:01 11/12/20 17:17 Temperature 100.9 F H 102.5 F H 102 F H Temperature Source Oral Temporal Temporal Pulse Rate 111 H 119 H 115 H Respiratory Rate 19 H 21 H Blood Pressure 167/80 H 167/80 H Blood Pressure Mean 109 109 Pulse Ox 95 99 99 Oxygen Delivery Method Room Air Room Air Nasal Cannula Oxygen Flow Rate (L/min) 2 11/12/20 17:38 11/12/20 18:01 11/12/20 19:00 Temperature 101.4 F H 101.5 F H Temperature Source Temporal Temporal Pulse Rate 105 H 105 H Respiratory Rate 20 H 20 H Blood Pressure 123/97 H 131/103 H 105/74 Blood Pressure Mean 105 112 84 Pulse Ox 99 99 Oxygen Delivery Method Nasal Cannula Nasal Cannula Oxygen Flow Rate (L/min) 2 2 11/12/20 19:16 11/12/20 20:00 11/12/20 21:00 Temperature 101.4 F H 100.9 F H 99 F Temperature Source Temporal Temporal Temporal Pulse Rate 105 H 99 95 Respiratory Rate 16 16 Blood Pressure 107/76 107/72 Blood Pressure Mean 86 83 Pulse Ox 99 99 Oxygen Delivery Method Room Air Nasal Cannula Oxygen Flow Rate (L/min) 2 11/12/20 21:26 Temperature 99 F Temperature Source Temporal Pulse Rate 95 Respiratory Rate 16 Blood Pressure 107/72 Blood Pressure Mean 83 Pulse Ox 99 Oxygen Delivery Method Nasal Cannula Oxygen Flow Rate (L/min) 2 Positive obese General Appearance ED: NAD; Negative for pallor Nutritional Appearance: obese HEENT Reports normocephalic, head/scalp atraumatic and moist mucous membranes Negative for trauma Eyes PERRL and EOMs intact bilaterally Neck no lymphadenopathy and supple Chest Wall inspection of chest normal and palpation of chest normal Resp normal respiratory effort and clear to auscultation bilaterally Auscultation: Negative for rales, rhonchi or wheezes Cardio Rate: tachycardic Rhythm: abnormal rhythm irregularly irregular GI normal to inspection, nondistended, normoactive bowel sounds and non-distended Auscultation: normoactive bowel sounds Palpation: soft Narrative: Deferred Back/Spine no CVA tenderness General Back: Negative for CVA tenderness Cervical Spine: Negative for cervical spine tenderness Extremity normal to inspection General Extremety ED: Yes edema and tenderness General Extremity: edema Neuro oriented x3 and CN's II-XII intact bilaterally Sensorium / Orientation: alert Motor Exam: strength 5/5 throughout Psych Psych Narrative: Confused, alert and oriented x2. Attitude: agitated Skin no rashes or lesions noted and no wounds General Skin Exam: Negative for jaundice or pallor MDM MDM MDM Narrative Medical decision making narrative: 75-year-old male presenting with fever and delirium. Patient's states this started today. Has been treated for 2 days outpatient with Bactrim. Today it was noted he had a fever on arrival of EMS. EKG performed on arrival shows atrial fibrillation with a rate of 128 as interpreted by my. Chest x-ray interpreted by myself shows cardiomegaly without any other acute abnormalities. Patient was given Tylenol for his fever as well as some IV fluids. Covid testing was negative. Lab work shows white blood cell count 8.1, hemoglobin 12.8, platelets 233 PT/INR normal CMP shows normal LFTs, and electrolytes however his creatinine is elevated at 1.76 urinalysis is slightly contaminated but I am concerned for UTI given the patient's fever and no other source. Patient will be given 1 g of Rocephin IV. Patient was discussed with hospitalist who wished the patient to be admitted to the ICU. Patient appears clinically improved in the ED. He is transported in stable condition. Impression: 1. UTI 2. Delirium 3. Sepsis 4. Acute kidney injury Lab Data Labs: Laboratory Results - last 24 hr 11/12/20 11/12/20 11/12/20 17:07 17:07 17:07 WBC 8.1 RBC 6.03 Hgb 12.8 L Hct 43.3 MCV 71.8 L MCH 21.2 L MCHC 29.6 L RDW Std Deviation 52.9 H RDW Coeff of Manuela 21.6 H Plt Count 233 MPV 10.0 Immature Gran % (Auto) 0.500 Neut % (Auto) 90.8 H Lymph % (Auto) 2.5 L [place] % (Auto) 6.0 Eos % (Auto) 0.1 Baso % (Auto) 0.1 Absolute Neuts (auto) 7.4 Absolute Lymphs (auto) 0.20 L Nucleated RBC % 0 Differential Comment SCANNED Platelet Estimate ADEQUATE Hypochromasia 1+ Anisocytosis 4+ Microcytosis 1+ Ovalocytes RARE PT 13.0 INR 1.0 APTT 28.9 Sodium 136 Potassium 4.2 Chloride 101 Carbon Dioxide 27.0 Anion Gap 8 BUN 24 H Creatinine 1.76 H Estim Creat Clear Calc 34.55 Est GFR (MDRD) Af Amer 49 L Est GFR (MDRD) Non-Af 40 L BUN/Creatinine Ratio 13.6 Glucose 108 H Lactic Acid Calcium 8.6 Total Bilirubin 0.80 AST 17 ALT 10 L Alkaline Phosphatase 89 Troponin I < 0.015 Total Protein 7.9 Albumin 3.5 Globulin 4.4 H Albumin/Globulin Ratio 0.8 L Urine Color Urine Clarity Urine pH Ur Specific [place] Urine Protein Urine Glucose (UA) Urine Ketones Urine Occult Blood Urine Nitrite Urine Bilirubin Urine Urobilinogen Ur Leukocyte Esterase Urine RBC Urine WBC Ur Squamous Epith Cells Urine Bacteria Urine Mucus 11/12/20 11/12/20 17:07 20:55 WBC RBC Hgb Hct MCV MCH MCHC RDW Std Deviation RDW Coeff of Manuela Plt Count MPV Immature Gran % (Auto) Neut % (Auto) Lymph % (Auto) [place] % (Auto) Eos % (Auto) Baso % (Auto) Absolute Neuts (auto) Absolute Lymphs (auto) Nucleated RBC % Differential Comment Platelet Estimate Hypochromasia Anisocytosis Microcytosis Ovalocytes PT INR APTT Sodium Potassium Chloride Carbon Dioxide Anion Gap BUN Creatinine Estim Creat Clear Calc Est GFR (MDRD) Af Amer Est GFR (MDRD) Non-Af BUN/Creatinine Ratio Glucose Lactic Acid 2.3 H* Calcium Total Bilirubin AST ALT Alkaline Phosphatase Troponin I Total Protein Albumin Globulin Albumin/Globulin Ratio Urine Color Yellow Urine Clarity Cloudy Urine pH 7.0 Ur Specific [place] 1.010 Urine Protein 100 H Urine Glucose (UA) Normal Urine Ketones Negative Urine Occult Blood 250 H Urine Nitrite Negative Urine Bilirubin Negative Urine Urobilinogen Normal Ur Leukocyte Esterase 500 H Urine RBC 10-25 SEEN Urine WBC 10-25 SEEN Ur Squamous Epith Cells 10-25 SEEN Urine Bacteria 0 SEEN Urine Mucus 0 SEEN Radiography Diagnostic Testing: Radiology Impression Brain CT 11/12/20 17:27 IMPRESSION: Chronic involutional and white matter changes. No acute intracranial process. Chronic left sinusitis. Individualized dose optimization techniques were used for this CT. at 1810 Reported and signed by: Alfred Perez MD Electronically Signed: Alfred Perez MD at 18:09 EDT Tel , Service support , Chest X-Ray 11/12/20 17:45 IMPRESSION: Cardiomegaly without radiographic evidence of acute cardiopulmonary disease. at 1812 Reported and signed by: Alfred Perez MD Electronically Signed: Alfred Perez MD at 18:11 EDT Tel , Service support , Discharge Plan Triage Chief Complaint: Confusion ED Provider: Nahum Hall Dx/Rx/DC Orders Prescriptions: No Action atenolol 50 mg tablet 50 mg PO .COMPLEX RF: 0 pramipexole 0.5 mg tablet 0.5 mg PO QHS RF: 0 potassium chloride 20 mEq tablet extended release 20 meq PO QDAY Qty: 90 RF: 3 carbidopa-levodopa 50-200 mg tablet extended release 1 tablet PO TID RF: 0 dorzolamide-timolol 22.3-6.8 mg/mL drops 1 drp OPHTHALMIC BID RF: 0 calcium carbonate-vitamin D3 [Calcium 600 with Vitamin D3] 600 mg(1,500mg) -500 unit capsule PO DAILY RF: 0 furosemide 40 MG tablet 40 mg PO DAILY RF: 0 oxybutynin chloride 10 MG tablet extended release 24hr 10 mg PO DAILY RF: 0 atenolol 50 mg tablet 25 mg PO QHS RF: 0 diltiazem HCl 120 mg capsule,extended release 24 hr 120 mg PO DAILY Qty: 90 RF: 3 Primary Care Provider: Masoud Rosa
[2020-11-12] MEDS: Acetaminophen 500 MG Tablet 1000 MG PO (17:22)
[2020-11-12] MEDS: 0.9% Normal Saline 1,000 ML 999 ML IV (17:23)
--- NOTE | 2020-11-12 17:27 | CT_ITS ---
HISTORY: headache TECHNIQUE: Multiple axial images were obtained of the brain without intravenous contrast. A radiation dose optimization technique was used for this scan. IV Contrast dosage and agent: None. COMPARISON: None FINDINGS: # of images incl. paperwork: [id number] PARANASAL SINUSES AND MASTOID AIR CELLS: Near-total opacification of the left maxillary sinus with sclerosis of the sinus ward. INTRACRANIAL HEMORRHAGE: None. BRAIN PARENCHYMA: No CT evidence of stroke. No intracranial masses. There is preservation of the givens/white matter interface. Posterior fossa structures are unremarkable. There is hypoattenuation of the periventricular white matter. Chronic involutional changes are noted. CSF SPACES: Appropriate for age. There is no hydrocephalus. MASS EFFECT: None. CALVARIUM: No acute fracture. CT/Brain/Head without Contrast IMPRESSION: Chronic involutional and white matter changes. No acute intracranial process. Chronic left sinusitis. Individualized dose optimization techniques were used for this CT. at 1810 Reported and signed by: Alfred Perez MD Electronically Signed: Alfred Perez MD at 18:09 EDT Tel , Service support ,
[2020-11-12] MEDS: Ondansetron 4 MG/2 ML Vial IV (17:33)
[2020-11-12 17:34] LABS: Absolute Neutrophil Count 7.4 X10^3/uL (2.0-7.7); Basophil# 0.01 X10^3/uL; Basophil% 0.1 % (0-1); Eosinophil# 0.01 X10^3/uL; Eosinophils% 0.1 % (0-5); Hematocrit 43.3 % (40-54); Hemoglobin 12.8 g/dL (13.0-16.5); Lymphocyte % 2.5 % (19-41); Mean Corp Hgb Conc 29.6 g/dL (32-36); Mean Corpuscular Hgb 21.2 pg (27.0-32.0); Mean Corpuscular Volume 71.8 fL (80-94); Monocyte# 0.49 X10^3/uL; NRBC Flagged by Analyzer 0 % (0-5); Neutrophil # 7.36 X10^3/uL (2.7-7.7); Neutrophil % 90.8 % (47-70); POSITIVE DIFFERENTIAL YES; POSITIVE MORPHOLOGY YES; Platelet Count 233 K/mm3 (150-450); RBC Distribution Width CV 21.6 % (11.6-14.6); RBC Distribution Width SD 52.9 fl (35.1-43.9); Red Blood Count 6.03 M/mm3 (4.6-6.2); White Blood Count 8.1 K/mm3 (4.4-11.0)
[2020-11-12 17:39] LABS: Differential Indicated SCAN CRITERIA MET
[2020-11-12 17:44] LABS: Partial Thromboplast Time 28.9 Seconds (24.1-36.2)
--- NOTE | 2020-11-12 17:45 | RAD_ITS ---
HISTORY: fever EXAMINATION/TECHNIQUE: XR Chest 1 View: Portable upright AP chest x-ray COMPARISON: 03/29/19 FINDINGS: LINES/DEVICES: None. LUNGS: Mild basilar subsegmental atelectasis or fibrosis, no consolidation, edema or effusion. MEDIASTINUM AND CARDIOVASCULAR STRUCTURES: Stable cardiomegaly. BONES AND SOFT TISSUES: No acute bony abnormalities. RAD/Chest 1 View (Portable) IMPRESSION: Cardiomegaly without radiographic evidence of acute cardiopulmonary disease. at 1812 Reported and signed by: Alfred Perez MD Electronically Signed: Alfred Perez MD at 18:11 EDT Tel , Service support ,
[2020-11-12 18:18] LABS: ALB/GLOB Ratio 0.8 RATIO (0.9-2.4); AST(SGOT) 17 U/L (15-37); Alanine Aminotransfer ALT/SGPT 10 U/L (16-61); Albumin, Serum 3.5 g/dL (3.2-5.0); Alkaline Phosphatase 89 U/L (45-117); Anion Gap 8 (5-15); BUN 24 mg/dL (7-18); BUN/Creat Ratio 13.6 RATIO (10-20); Calcium,Total 8.6 mg/dL (8.5-10.1); Chloride 101 mmol/L (98-107); Creatinine, Serum 1.76 mg/dL (0.70-1.30); EST Glomerular Filtration Rate 40 mL/min (>60); Est Glom Filt Rate - Afr Amer 49 mL/min (>60); Estimated Creatinine Clearance 34.55 ml/min; Globulin 4.4 g/dL (2.2-4.2); Glucose 108 mg/dL (74-106); Potassium 4.2 mmol/L (3.5-5.1); Protein, Total 7.9 g/dL (6.4-8.2); Sodium Level 136 mmol/L (136-145)
[2020-11-12 18:25] LABS: Lactic Acid 2.3 mmol/L (0.4-1.9)
[2020-11-12] MEDS: Lidocaine Jelly 2% 20 ML Syringe (URO-JET) 20 APPLIC TOPICAL (18:33)
--- NOTE | 2020-11-12 18:50 | ED.RN ---
Atttepted to cath pt, unsuccessful.
[2020-11-12 18:56] LABS: Anisocytosis 4+; Differential Comment SCANNED; Platelet Estimate ADEQUATE (ADEQ)
[2020-11-12 18:57] LABS: Hypochromasia 1+; Microcytosis 1+; Ovalocyte RARE
[2020-11-12 21:01] LABS: Bacteria 0 SEEN /hpf (None Seen); Mucous, Urine 0 SEEN /hpf (<or=2+)
[2020-11-12 21:02] LABS: Color, Urine Yellow (Yellow); Glucose, Dipstick Normal (Normal); Ketone-Dipstick Negative (Negative); Nitrite-Dipstick Negative (Negative); Protein-Dipstick 100 mg/dl (Negative); Urine Bilirubin Dipstick Negative (Negative); Urine Clarity Cloudy (Clear); Urine Urobilinogen Normal (Normal)
[2020-11-12 21:03] LABS: Leukocyte Esterase-Dipstick 500 /ul (Negative); Occult Blood-Urine 250 /ul (Negative)
[2020-11-12 21:07] LABS: Red Blood Cells-Urine 10-25 SEEN /hpf (0-5); Squamous Epithelial Cells - UA 10-25 SEEN /hpf (0-5); White Blood Cells 10-25 SEEN /hpf (0-5)
[2020-11-12 21:25] LABS: Reflex Lactate? Y
--- NOTE | 2020-11-12 21:32 | HP.PCM.HOS_ITS ---
HPI - General General Date of Admission: 11/12/20 HPI Narrative KAREN MOYA, is a 75 M With a significant history of persistent atrial fibrillation status post cardioversion; and Parkinson's disease; prostate cancer status post radiation who presents to the emergency department with confusion that started on the same day of presentation. Associated with his symptoms is headache; nausea; weakness; and burning sensation. Also report that his baseline tremors increased on the day of presentation. His temperature at home was about 99 Fahrenheit. Patient outpatient is being treated for UTI. He has been on Bactrim for 2 days. At the emergency department patient was bladder scan for 150 cc of urine. Attempt was made to place a Somers catheter but was unsuccessful. Emergency point doctor discussed the case with urology who plans to see patient in putting a Somers catheter. 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 drug Other secondary pulmonary hypertension Parkinsons disease Persistent atrial fibrillation Prostate cancer Home Medications diltiazem HCl 120 mg capsule,24 hr,extended release 120 mg PO DAILY #90 cap 0 02/13/20 [Rx Last Taken 05/10/20] potassium chloride 20 mEq tablet,extended release 20 meq PO QDAY #90 tab 03/27/20 [Rx Last Taken Unknown] pramipexole 0.5 mg tablet 0.5 mg PO QHS 03/27/20 [History Last Taken Unknown] furosemide 40 mg PO DAILY 05/10/20 [History Last Taken Unknown] oxybutynin chloride 10 mg PO DAILY 05/10/20 [History Last Taken Unknown] atenolol 50 mg tablet 50 mg PO .COMPLEX tablet 09/25/20 [History Last Taken Unknown] calcium carbonate 600 mg (1,500 mg)-vitamin D3 500 unit capsule cap PO DAILY 09/25/20 [History Last Taken Unknown] carbidopa ER 50 mg-levodopa 200 mg tablet,extended release 1 tablet PO TID tablet 09/25/20 [History Last Taken Unknown] dorzolamide 22.3 mg-timolol 6.8 mg/mL eye drops 1 drp OPHTHALMIC BID ml 09/25/20 [History Last Taken Unknown] atenolol 25 mg PO QHS 11/12/20 [History Last Taken Unknown] Allergy/AdvReac Type Severity Reaction Status Date / Time No Known Allergies Allergy Verified 11/12/20 17:02 Family History Brother Atrial fibrillation Surgical History History of cataract extraction History of hernia repair Social History Smoking Status: Never smoker alcohol intake: never substance use type: does not use caffeine: Yes Type: carbonated beverages Number of servings: 1 ROS ROS Narrative 12 point review of system is negative except as stated in HPI. Vital Signs Vital Signs Vital Signs: 11/12/20 16:58 11/12/20 17:01 11/12/20 17:17 Temperature 100.9 F H 102.5 F H 102 F H Temperature Source Oral Temporal Temporal Pulse Rate 111 H 119 H 115 H Respiratory Rate 19 H 21 H Blood Pressure 167/80 H 167/80 H Blood Pressure Mean 109 109 Pulse Ox 95 99 99 Oxygen Delivery Method Room Air Room Air Nasal Cannula Oxygen Flow Rate (L/min) 2 11/12/20 17:38 11/12/20 18:01 11/12/20 19:00 Temperature 101.4 F H 101.5 F H Temperature Source Temporal Temporal Pulse Rate 105 H 105 H Respiratory Rate 20 H 20 H Blood Pressure 123/97 H 131/103 H 105/74 Blood Pressure Mean 105 112 84 Pulse Ox 99 99 Oxygen Delivery Method Nasal Cannula Nasal Cannula Oxygen Flow Rate (L/min) 2 2 11/12/20 19:16 11/12/20 20:00 11/12/20 21:00 Temperature 101.4 F H 100.9 F H 99 F Temperature Source Temporal Temporal Temporal Pulse Rate 105 H 99 95 Respiratory Rate 16 16 Blood Pressure 107/76 107/72 Blood Pressure Mean 86 83 Pulse Ox 99 99 Oxygen Delivery Method Room Air Nasal Cannula Oxygen Flow Rate (L/min) 2 11/12/20 21:26 Temperature 99 F Temperature Source Temporal Pulse Rate 95 Respiratory Rate 16 Blood Pressure 107/72 Blood Pressure Mean 83 Pulse Ox 99 Oxygen Delivery Method Nasal Cannula Oxygen Flow Rate (L/min) 2 Physical Exam Narrative Alert and oriented x 2. Patient knows the year but not the month or the day. Nontraumatic; normocephalic Lung clear to auscultate Heart sounds S1-S2. No murmur, gallop or rubs. Abdomen bowel sounds present soft, nontender nondistended. Condom catheter in place. Extremity without edema cyanosis or clubbing. Lab / Micro Data Result Diagrams: 11/12/20 17:07 11/12/20 17:07 Labs: Laboratory Results - last 24 hr 11/12/20 11/12/20 11/12/20 17:07 17:07 17:07 WBC 8.1 RBC 6.03 Hgb 12.8 L Hct 43.3 MCV 71.8 L MCH 21.2 L MCHC 29.6 L RDW Std Deviation 52.9 H RDW Coeff of Manuela 21.6 H Plt Count 233 MPV 10.0 Immature Gran % (Auto) 0.500 Neut % (Auto) 90.8 H Lymph % (Auto) 2.5 L [place] % (Auto) 6.0 Eos % (Auto) 0.1 Baso % (Auto) 0.1 Absolute Neuts (auto) 7.4 Absolute Lymphs (auto) 0.20 L Nucleated RBC % 0 Differential Comment SCANNED Platelet Estimate ADEQUATE Hypochromasia 1+ Anisocytosis 4+ Microcytosis 1+ Ovalocytes RARE PT 13.0 INR 1.0 APTT 28.9 Sodium 136 Potassium 4.2 Chloride 101 Carbon Dioxide 27.0 Anion Gap 8 BUN 24 H Creatinine 1.76 H Estim Creat Clear Calc 34.55 Est GFR (MDRD) Af Amer 49 L Est GFR (MDRD) Non-Af 40 L BUN/Creatinine Ratio 13.6 Glucose 108 H Lactic Acid Calcium 8.6 Total Bilirubin 0.80 AST 17 ALT 10 L Alkaline Phosphatase 89 Troponin I < 0.015 Total Protein 7.9 Albumin 3.5 Globulin 4.4 H Albumin/Globulin Ratio 0.8 L Urine Color Urine Clarity Urine pH Ur Specific [place] Urine Protein Urine Glucose (UA) Urine Ketones Urine Occult Blood Urine Nitrite Urine Bilirubin Urine Urobilinogen Ur Leukocyte Esterase Urine RBC Urine WBC Ur Squamous Epith Cells Urine Bacteria Urine Mucus 11/12/20 11/12/20 17:07 20:55 WBC RBC Hgb Hct MCV MCH MCHC RDW Std Deviation RDW Coeff of Manuela Plt Count MPV Immature Gran % (Auto) Neut % (Auto) Lymph % (Auto) [place] % (Auto) Eos % (Auto) Baso % (Auto) Absolute Neuts (auto) Absolute Lymphs (auto) Nucleated RBC % Differential Comment Platelet Estimate Hypochromasia Anisocytosis Microcytosis Ovalocytes PT INR APTT Sodium Potassium Chloride Carbon Dioxide Anion Gap BUN Creatinine Estim Creat Clear Calc Est GFR (MDRD) Af Amer Est GFR (MDRD) Non-Af BUN/Creatinine Ratio Glucose Lactic Acid 2.3 H* Calcium Total Bilirubin AST ALT Alkaline Phosphatase Troponin I Total Protein Albumin Globulin Albumin/Globulin Ratio Urine Color Yellow Urine Clarity Cloudy Urine pH 7.0 Ur Specific [place] 1.010 Urine Protein 100 H Urine Glucose (UA) Normal Urine Ketones Negative Urine Occult Blood 250 H Urine Nitrite Negative Urine Bilirubin Negative Urine Urobilinogen Normal Ur Leukocyte Esterase 500 H Urine RBC 10-25 SEEN Urine WBC 10-25 SEEN Ur Squamous Epith Cells 10-25 SEEN Urine Bacteria 0 SEEN Urine Mucus 0 SEEN Micro: Microbiology 11/12/20 17:25 SARS-CoV-2 Antigen (Rapid) - Final Nasal Secretion Radiology Impression Brain CT 11/12/20 17:27 IMPRESSION: Chronic involutional and white matter changes. No acute intracranial process. Chronic left sinusitis. Individualized dose optimization techniques were used for this CT. at 1810 Reported and signed by: Alfred Perez MD Electronically Signed: Alfred Perez MD at 18:09 EDT Tel , Service support , Chest X-Ray 11/12/20 17:45 IMPRESSION: Cardiomegaly without radiographic evidence of acute cardiopulmonary disease. at 1812 Reported and signed by: Alfred Perez MD Electronically Signed: Alfred Perez MD at 18:11 EDT Tel , Service support , Assessment & Plan Assessment/Plan (1) Severe sepsis: (2) ALFRED (acute kidney injury): (3) Bladder outflow obstruction: PLAN: SIRS criteria: Temperature of more than 100.4 Fahrenheit; heart rate of more than 90. Abnormal urinalysis and previously on Bactrim for UTI. Discussed with emergency department doctor to start patient on ceftriaxone. Ceftriaxone continued. Lactic acid more than 2; trend. Urine culture blood culture obtained . ALFRED Baseline creatinine is around 1. On presentation baseline creatinine was 1.76. BUN is 24. BUN/creatinine is 13.6. Likely intrinsic renal from toxins second severe sepsis. Received normal saline bolus in the emergency department. Placed on normal saline maintenance infusion. Trend BMP. Avoid nephrotoxins. Hold home Lasix. Atrial fibrillation with RVR RVR like secondary to severe sepsis. Continue IV fluids. Continue Cardizem with parameters. Bladder outlet obstruction Urology consult. Hypertension Blood pressure is low normal. In the setting of severe sepsis hold atenolol. Cardizem continue parameters. Trend blood pressure and adjust blood pressure medications as necessary. Parkinson's disease Carbidopa levodopa continued. DVT prophylaxis Subcutaneous heparin ordered Visit Charges Inpatient E&M: 75921 Init Hosp L3
[2020-11-12] MEDS: Ceftriaxone 1 GM/50 mL Premix x1 IV (21:45)
[2020-11-12 22:16] LABS: Lactic Acid 1.2 mmol/L (0.4-1.9)
[2020-11-13] VITALS (18 sets, daily range): BP systolic 97–134; BP diastolic 61–79; PULSE 84–113; RESP 17–24; TEMP 36.3–37.4; O2SAT 93–98
[2020-11-13] MEDS: 0.9% Normal Saline 1,000 ML 75 ML IV ×2 (00:14→13:57)
[2020-11-13 04:17] LABS: Absolute Lymphocyte Count 0.14 X10^3/uL (0.83-4.51); Absolute Neutrophil Count 5.4 X10^3/uL (2.0-7.7); Basophil# 0.01 X10^3/uL; Basophil% 0.2 % (0-1); Eosinophil# 0.02 X10^3/uL; Eosinophils% 0.3 % (0-5); Hematocrit 37.5 % (40-54); Lymphocyte # 0.14 X10^3/ul (0.83-4.51); Lymphocyte % 2.3 % (19-41); Mean Corp Hgb Conc 29.3 g/dL (32-36); Mean Corpuscular Hgb 21.2 pg (27.0-32.0); Mean Corpuscular Volume 72.3 fL (80-94); Mean Platelet Vol. 9.4 fl (6.2-12.0); Monocyte# 0.39 X10^3/uL; Monocyte% 6.5 % (0-10); NRBC Flagged by Analyzer 0 % (0-5); Neutrophil # 5.35 X10^3/uL (2.7-7.7); Neutrophil % 89.7 % (47-70); POSITIVE DIFFERENTIAL YES; POSITIVE MORPHOLOGY YES; Platelet Count 176 K/mm3 (150-450); RBC Distribution Width CV 21.1 % (11.6-14.6); RBC Distribution Width SD 53.4 fl (35.1-43.9); Red Blood Count 5.19 M/mm3 (4.6-6.2)
[2020-11-13 04:18] LABS: Differential Indicated SCAN CRITERIA MET
[2020-11-13 04:30] LABS: Anion Gap 5 (5-15); BUN 20 mg/dL (7-18); BUN/Creat Ratio 13.2 RATIO (10-20); Calcium,Total 7.7 mg/dL (8.5-10.1); Chloride 106 mmol/L (98-107); Creatinine, Serum 1.52 mg/dL (0.70-1.30); EST Glomerular Filtration Rate 48 mL/min (>60); Est Glom Filt Rate - Afr Amer 58 mL/min (>60); Estimated Creatinine Clearance 38.65 ml/min; Glucose 117 mg/dL (74-106); Potassium 4.5 mmol/L (3.5-5.1); Sodium Level 139 mmol/L (136-145)
[2020-11-13 05:18] LABS: Differential Comment SCANNED
[2020-11-13 05:19] LABS: Anisocytosis 1+
[2020-11-13] MEDS: CARBIDOPA/LEVODOPA CR 50/200 Tablet PO ×3 (06:24→21:53)
--- NOTE | 2020-11-13 06:52 | US_ITS ---
STUDY: RENAL ULTRASOUND - COMPLETE REASON FOR EXAM: Male, 75 years old. Anatomy assessment -- portable urinary retention. History of prostate cancer. TECHNIQUE: Ultrasound evaluation of the kidneys was performed with real-time and static grover-scale imaging. COMPARISON: None. FINDINGS: RIGHT KIDNEY: Normal location of the right kidney, which is normal in size. The right kidney measures 10.3 cm x 5.2 cm x 5.7 cm. There is a normal cortex of the right kidney. The renal cortex measures 1.2 cm. 2 small renal cysts are seen. The larger measures 1.7 cm x 2 cm. There are no right renal calculi. There is no right hydronephrosis. DISTAL RIGHT URETER: There is non-visualization of the distal right ureter. There is no demonstrated right ureterovesical junction calculus. There is no demonstrated right ureteral jet. LEFT KIDNEY: Normal location of the left kidney, which is normal in size. The left kidney measures 10.7 cm x 6 mL by 6 cm. There is a normal cortex of the left kidney. The renal cortex measures 1.2 cm. There is no left renal mass or cyst. There are no left renal calculi. There is no left hydronephrosis. DISTAL LEFT URETER: There is non-visualization of the distal left ureter. I suspect a left ureterovesical junction calculus. There is a visualized left ureteral jet. BLADDER: The distended urinary bladder has a volume of 156 ml. There is a normal wall thickness of the distended urinary bladder. There is no demonstrated mass within the urinary bladder. There is a 1 cm x 1 cm x 1 cm calculus at the base of the bladder. US/Kidney and Bladder IMPRESSION: Questionable 6 mm calculus at the left ureteropelvic junction. Solitary stone in the urinary bladder. Electronically Signed: Fausto Gross MD at 13:35 EDT , Service support ,
--- NOTE | 2020-11-13 07:17 | CON.PCM.UR_ITS ---
Assessment & Plan Assessment/Plan (1) UTI (urinary tract infection): PLAN: 75-year-old male was admitted for urinary tract infection he is now stable. He has been able to urinate on his own without any problems he has been using a condom cath to catch the urine he is not retention is not distended I do not think any to put a catheter in at this point since he is able to urinate and I's and O's could be easily measured with a condom cath call me if you have any questions but after discussing with the patient he also wished to avoid a catheter if possible since a very painful and we agreed to hold off any interve ntion. Unclear why the ER had difficulty putting the catheter in I seen him in the past before and put a catheter in him before possible he may have scar tissue etc. for now we will just watch call me for questions. HPI Consult Data Date of Consult: 11/13/20 HPI Narrative HPI Narrative: KAREN MOYA, is a 75 M who presents to the hospital at home he was found to be confused with a fever he was brought in and is currently being treated for urinary tract infection. He has a history of prostate cancer treated with radiation. At this point he has advanced cancer and I am seeing him for treatments for his advanced cancer. 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 The emergency room was not able to put a catheter in him but he has been urinating okay so I at the bedside I saw him checked his bladder the bladder is nondistended he is got account of catheter has been urinating I do not see any reason to put a catheter in at this point he is not in retention. [facility] Medical History (Updated 11/13/20 @ 07:[address] 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 Other secondary pulmonary hypertension Parkinsons disease Persistent atrial fibrillation Prostate cancer Home Medications diltiazem HCl 120 mg capsule,24 hr,extended release 120 mg PO DAILY #90 cap 02/13/20 [Rx Last Taken 05/10/20] potassium chloride 20 mEq tablet,extended release 20 meq PO QDAY #90 tab 03/27/20 [Rx Last Taken Unknown] pramipexole 0.5 mg tablet 0.5 mg PO QHS 03/27/20 [History Last Taken Unknown] furosemide 40 mg PO DAILY 05/10/20 [History Last Taken Unknown] oxybutynin chloride 10 mg PO DAILY 05/10/20 [History Last Taken Unknown] atenolol 50 mg tablet 50 mg PO .COMPLEX tablet 09/25/20 [History Last Taken Unknown] calcium carbonate 600 mg (1,500 mg)-vitamin D3 500 unit capsule cap PO DAILY 09/25/20 [History Last Taken Unknown] carbidopa ER 50 mg-levodopa 200 mg tablet,extended release 1 tablet PO TID tablet 09/25/20 [History Last Taken Unknown] dorzolamide 22.3 mg-timolol 6.8 mg/mL eye drops 1 drp OPHTHALMIC BID ml [History Last Taken Unknown] atenolol 25 mg PO QHS 11/12/20 [History Last Taken Unknown] Allergy/AdvReac Type Severity Reaction Status Date / Time No Known Allergies Allergy Verified 11/12/20 17:02 Family History Brother Atrial fibrillation Surgical History History of cataract extraction History of hernia repair Social History Smoking Status: Never smoker alcohol intake: never substance use type: does not use caffeine: Yes Type: carbonated beverages Number of servings: 1 ROS Constitutional Constitutional: Reports fever(s); Denies chills or malaise Eyes Eyes: Denies blurry vision or change in vision ENT HEENT: Reports none Cardiovascular Cardiovascular: Denies chest pain or palpitations Respiratory/Chest Respiratory/Chest: Denies cough or shortness of breath with exertion Gastrointestinal Gastrointestinal: Denies abdominal pain, constipation or diarrhea Musculoskeletal Musculoskeletal: Denies back pain, joint stiffness or joint swelling Integumentary Integumentary: Denies dry skin, jaundice, lesions or rash Neurologic Neurologic: Denies confusion, syncope or weakness Psychiatric Psychiatric: Reports none; Denies anxiety or depression Endocrine Endocrinology: Denies excessive sweating, fatigue or flushing Hematologic/Lymphatic Hematologic/Lymphatic: Denies anemia, easy bleeding or easy bruising Physical Exam Const alert and oriented x3 General Appearance: cooperative HEENT normocephalic, head/scalp atraumatic, EAC's normal and TM's normal bilaterally Eyes PERRL and EOMs intact bilaterally Pupil: sluggish Neck no lymphadenopathy, supple and no JVD General: trachea midline Lymph Lymphatic: no lymphadenopathy noted, lymphedema and lymphadenopathy Resp normal respiratory effort, normal air movement and clear to auscultation bilaterally Cardio regular rate, regular rhythm and peripheral pulses 2+ throughout GI soft to palpation, non-tender and non-distended Narrative: Condom catheter in place Extremity normal capillary refill and no clubbing, cyanosis or edema General Extremity: no tenderness to palpation of joints or extremities Skin no rashes or lesions noted General Skin Exam: turgor normal Lesions: no lesions Rashes: no rashes Neuro CN's II-XII intact bilaterally Speech: speech normal Motor Exam: strength 5/5 throughout; Negative for general weakness Psych thought process normal, cooperative and affect normal Appearance: appropriate Lab / Micro Data Result Diagrams: 11/13/20 04:10 11/13/20 04:10 Labs: Laboratory Results - last 24 hr 11/12/20 11/12/20 11/12/20 17:07 17:07 17:07 WBC 8.1 RBC 6.03 Hgb 12.8 L Hct 43.3 MCV 71.8 L MCH 21.2 L MCHC 29.6 L RDW Std Deviation 52.9 H RDW Coeff of Manuela 21.6 H Plt Count 233 MPV 10.0 Immature Gran % (Auto) 0.500 Neut % (Auto) 90.8 H Lymph % (Auto) 2.5 L Emanuel % (Auto) 6.0 Eos % (Auto) 0.1 Baso % (Auto) 0.1 Absolute Neuts (auto) 7.4 Absolute Lymphs (auto) 0.20 L Nucleated RBC % 0 Differential Comment SCANNED Platelet Estimate ADEQUATE Hypochromasia 1+ Anisocytosis 4+ Microcytosis 1+ Ovalocytes RARE PT 13.0 INR 1.0 APTT 28.9 Sodium 136 Potassium 4.2 Chloride 101 Carbon Dioxide 27.0 Anion Gap 8 BUN 24 H Creatinine 1.76 H Estim Creat Clear Calc 34.55 Est GFR (MDRD) Af Amer 49 L Est GFR (MDRD) Non-Af 40 L BUN/Creatinine Ratio 13.6 Glucose 108 H Lactic Acid Calcium 8.6 Total Bilirubin 0.80 AST 17 ALT 10 L Alkaline Phosphatase 89 Troponin I < 0.015 Total Protein 7.9 Albumin 3.5 Globulin 4.4 H Albumin/Globulin Ratio 0.8 L Urine Color Urine Clarity Urine pH Ur Specific [place] Urine Protein Urine Glucose (UA) Urine Ketones Urine Occult Blood Urine Nitrite Urine Bilirubin Urine Urobilinogen Ur Leukocyte Esterase Urine RBC Urine WBC Ur Squamous Epith Cells Urine Bacteria Urine Mucus 11/12/20 11/12/20 11/12/20 17:07 20:55 21:32 WBC RBC Hgb Hct MCV MCH MCHC RDW Std Deviation RDW Coeff of Manuel[place] Plt Count MPV Immature Gran % (Auto) Neut % (Auto) Lymph % (Auto) [place]manuel % (Auto) Eos % (Auto) Baso % (Auto) Absolute Neuts (auto) Absolute Lymphs (auto) Nucleated RBC % Differential Comment Platelet Estimate Hypochromasia Anisocytosis Microcytosis Ovalocytes PT INR APTT Sodium Potassium Chloride Carbon Dioxide Anion Gap BUN Creatinine Estim Creat Clear Calc Est GFR (MDRD) Af Amer Est GFR (MDRD) Non-Af BUN/Creatinine Ratio Glucose Lactic Acid 2.3 H* 1.2 Calcium Total Bilirubin AST ALT Alkaline Phosphatase Troponin I Total Protein Albumin Globulin Albumin/Globulin Ratio Urine Color Yellow Urine Clarity Cloudy Urine pH 7.0 Ur Specific [place] 1.010 Urine Protein 100 H Urine Glucose (UA) Normal Urine Ketones Negative Urine Occult Blood 250 H Urine Nitrite Negative Urine Bilirubin Negative Urine Urobilinogen Normal Ur Leukocyte Esterase 500 H Urine RBC 10-25 SEEN Urine WBC 10-25 SEEN Ur Squamous Epith Cells 10-25 SEEN Urine Bacteria 0 SEEN Urine Mucus 0 SEEN 11/13/20 11/13/20 04:10 04:10 WBC 6.0 RBC 5.19 Hgb 11.0 L Hct 37.5 L MCV 72.3 L MCH 21.2 L MCHC 29.3 L RDW Std Deviation 53.4 H RDW Coeff of Manuela 21.1 H Plt Count 176 MPV 9.4 Immature Gran % (Auto) 1.000 H Neut % (Auto) 89.7 H Lymph % (Auto) 2.3 L Emanuel % (Auto) 6.5 Eos % (Auto) 0.3 Baso % (Auto) 0.2 Absolute Neuts (auto) 5.4 Absolute Lymphs (auto) 0.14 L Nucleated RBC % 0 Differential Comment SCANNED Platelet Estimate Hypochromasia Anisocytosis 1+ Microcytosis Ovalocytes PT INR APTT Sodium 139 Potassium 4.5 Chloride 106 Carbon Dioxide 28.0 Anion Gap 5 BUN 20 H Creatinine 1.52 H Estim Creat Clear Calc 38.65 Est GFR (MDRD) Af Amer 58 L Est GFR (MDRD) Non-Af 48 L BUN/Creatinine Ratio 13.2 Glucose 117 H Lactic Acid Calcium 7.7 L Total Bilirubin AST ALT Alkaline Phosphatase Troponin I Total Protein Albumin Globulin Albumin/Globulin Ratio Urine Color Urine Clarity Urine pH Ur Specific [place] Urine Protein Urine Glucose (UA) Urine Ketones Urine Occult Blood Urine Nitrite Urine Bilirubin Urine Urobilinogen Ur Leukocyte Esterase Urine RBC Urine WBC Ur Squamous Epith Cells Urine Bacteria Urine Mucus Micro: Microbiology 11/12/20 17:25 SARS-CoV-2 Antigen (Rapid) - Final Nasal Secretion Radiology Impression Brain CT 11/12/20 17:27 IMPRESSION: Chronic involutional and white matter changes. No acute intracranial process. Chronic left sinusitis. Individualized dose optimization techniques were used for this CT. at 1810 Reported and signed by: Alfred Perez MD Electronically Signed: Alfred Perez MD at 18:09 EDT Tel , Service support , Chest X-Ray 11/12/20 17:45 IMPRESSION: Cardiomegaly without radiographic evidence of acute cardiopulmonary disease. at 1812 Reported and signed by: Alfred Perez MD Electronically Signed: Alfred Perez MD at 18:11 EDT Tel , Service support ,
[2020-11-13] MEDS: dilTIAZem CD 120 MG Capsule PO (07:46)
--- NOTE | 2020-11-13 08:03 | CON.PCM.CC_ITS ---
Assessment & Plan Assessment/Plan (1) Severe sepsis: (2) UTI (urinary tract infection): (3) History of prostate cancer: (4) Persistent atrial fibrillation: (5) Hypertension: QUALIFIERS: Hypertension type: essential hypertension Qualified Code(s): I10 - Essential (primary) hypertension (6) ALFRED (acute kidney injury): (7) Cardiomyopathy in other diseases classified elsewhere: PLAN: RECOMMENDATIONS: 1. Continue empiric antibiotics 2. Await renal ultrasound/urologic recommendations 3. Okay to leave the intensive care unit from my perspective 4. We will sign off from a critical care perspective IMPRESSIONS: 1. Severe sepsis secondary to UTI Patient with fever, tachycardia and a lactate greater than 2. Creatinine was elevated to 1.76, from a baseline of 1 indicating endorgan damage. Patient has responded well to conservative therapy. Renal ultrasound will be ordered to evaluate for hydronephrosis as patient may have an element of partially treated pyelonephritis. Urology has been consulted for possible bladder outlet o bstruction. Patient was unable to get a Somers secondary to anatomical issues. 2. Acute kidney injury Clinical suspicion for pre and post renal etiology. Patient does have an extensive urologic history. Lasix will be held, along with other nephrotoxins. Likely okay to discontinue IV fluids from my perspective. Continue to monitor. No indication for renal replacement therapy. 3. A. fib with RVR Baseline atrial fibrillation is known. Patient not anticoagulated secondary to bleeding risk. Clinical suspicion for RVR secondary to problem #1. Continue with current therapy and monitor with telemetry. 4. Advanced age/obesity/hypertension/Parkinson's disease/recurrent falls Complicates care, management, recovery and prognosis. Okay to continue with baseline medications from my perspective. Patient is not being anticoagulated long-term secondary to recurrent falls. Defer to PCP on evaluation of risk factors. HPI Consult Data Date of Consult: 11/13/20 HPI Narrative HPI Narrative: KAREN MOYA is a 75-year-old male, with past medical h istory listed below, who presented to [facility] on 11/12/2020 secondary to confusion. Patient reportedly had been started on antibiotics the day prior secondary to UTI. On presentation, EMS had reportedly found a fever. Patient's reported that he had complained of a headache earlier in the day with nausea, but no emesis. Patient has not been vaccinated against COVID-19, but did not report any exposures. Patient does have atrial fibrillation at baseline, but is not anticoagulated secondary to concerns for recurrent falls and Parkinson's. No recent falls have been reported by his . On presentation to the ER, patient was noted to have a peak temperature of 102.5 ?F, tachycardia 119 bpm and blood pressure 167/80. Patient was 99% on room air, but confusion limited assessment. EKG confirmed atrial fibrillation with no ST changes. Laboratory work-up showed a white blood cell count of 8.1, hemoglobin 12.8 and a slightly elevated creatinine of 1.76. Patient did receive 1 g of Rocephin and was admitted to the ICU with concerns for sepsis. CT of the brain and chest x-ray were unremarkable. Since being in the intensive care unit, patient has remained hemodynamically stable. Lactic acid has improved from 2.3. Patient is a relatively poor historian on recent events. Patient does have an extensive urologic history and has been seen by Dr. Prather in the past. Patient is reporting some mild flank tenderness/soreness, but only on direct questioning. Review of systems otherwise negative, with limitations listed above, from a constitutional, HEENT, respiratory, cardiovascular, GI, genitourinary, musculoskeletal, skin, neurologic, psychiatric and hematologic system unless stated above. 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 drug Other secondary pulmonary hypertension Parkinsons disease Persistent atrial fibrillation Prostate cancer Home Medications diltiazem HCl 120 mg capsule,24 hr,extended release 120 mg PO DAILY #90 cap 02/13/20 [Rx Last Taken 05/10/20] potassium chloride 20 mEq tablet,extended release 20 meq PO QDAY #90 tab 03/27/20 [Rx Last Taken Unknown] pramipexole 0.5 mg tablet 0.5 mg PO QHS 03/27/20 [History Last Taken Unknown] furosemide 40 mg PO DAILY 05/10/20 [History Last Taken Unknown] oxybutynin chloride 10 mg PO DAILY 05/10/20 [History Last Taken Unknown] atenolol 50 mg tablet 50 mg PO .COMPLEX tablet 09/25/20 [History Last Taken Unknown] calcium carbonate 600 mg (1,500 mg)-vitamin D3 500 unit capsule cap PO DAILY 09/25/20 [History Last Taken Unknown] carbidopa ER 50 mg-levodopa 200 mg tablet,extended release 1 tablet PO TID tablet 09/25/20 [History Last Taken Unknown] dorzolamide 22.3 mg-timolol 6.8 mg/mL eye drops 1 drp OPHTHALMIC BID ml 09/25/20 [History Last Taken Unknown] atenolol 25 mg PO QHS 11/12/20 [History Last Taken Unknown] Allergy/AdvReac Type Severity Reaction Status Date / Time No Known Allergies Allergy Verified 11/12/20 17:02 Family History Brother Atrial fibrillation Surgical History History of cataract extraction History of hernia repair Social History Smoking Status: Never smoker alcohol intake: never substance use type: does not use caffeine: Yes Type: carbonated beverages Number of servings: 1 ROS ROS Narrative See HPI Physical Exam Const alert General Appearance: cooperative Orientation / Consciousness: awake, oriented to person and oriented to place Nutritional Appearance: obese HEENT normocephalic Head and Scalp: atraumatic Eyes PERRL and EOMs intact bilaterally Neck supple, no JVD and no carotid bruits Resp normal respiratory effort and clear to auscultation bilaterally Cardio regular rate and no murmurs GI normal to inspection, nondistended, normoactive bowel sounds and soft to palpation Narrative: Mild CVA tenderness Bladder / Kidney Exam: No catheter in place Extremity normal capillary refill General Extremity: Negative for edema Skin no rashes or lesions noted Neuro CN's II-XII intact bilaterally Psych cooperative and affect normal Lab / Micro Data Result Diagrams: 11/13/20 04:10 11/13/20 04:10 Labs: Laboratory Results - last 24 hr 11/12/20 11/12/20 11/12/20 17:07 17:07 17:07 WBC 8.1 RBC 6.03 Hgb 12.8 L Hct 43.3 MCV 71.8 L MCH 21.2 L MCHC 29.6 L RDW Std Deviation 52.9 H RDW Coeff of Manuela 21.6 H Plt Count 233 MPV 10.0 Immature Gran % (Auto) 0.500 Neut % (Auto) 90.8 H Lymph % (Auto) 2.5 L [place] % (Auto) 6.0 Eos % (Auto) 0.1 Baso % (Auto) 0.1 Absolute Neuts (auto) 7.4 Absolute Lymphs (auto) 0.20 L Nucleated RBC % 0 Differential Comment SCANNED Platelet Estimate ADEQUATE Hypochromasia 1+ Anisocytosis 4+ Microcytosis 1+ Ovalocytes RARE PT 13.0 INR 1.0 APTT 28.9 Sodium 136 Potassium 4.2 Chloride 101 Carbon Dioxide 27.0 Anion Gap 8 BUN 24 H Creatinine 1.76 H Estim Creat Clear Calc 34.55 Est GFR (MDRD) Af Amer 49 L Est GFR (MDRD) Non-Af 40 L BUN/Creatinine Ratio 13.6 Glucose 108 H Lactic Acid Calcium 8.6 Total Bilirubin 0.80 AST 17 ALT 10 L Alkaline Phosphatase 89 Troponin I < 0.015 Total Protein 7.9 Albumin 3.5 Globulin 4.4 H Albumin/Globulin Ratio 0.8 L Urine Color Urine Clarity Urine pH Ur Specific [place] Urine Protein Urine Glucose (UA) Urine Ketones Urine Occult Blood Urine Nitrite Urine Bilirubin Urine Urobilinogen Ur Leukocyte Esterase Urine RBC Urine WBC Ur Squamous Epith Cells Urine Bacteria Urine Mucus 11/12/20 11/12/20 11/12/20 17:07 20:55 21:32 WBC RBC Hgb Hct MCV MCH MCHC RDW Std Deviation RDW Coeff of Manuela Plt Count MPV Immature Gran % (Auto) Neut % (Auto) Lymph % (Auto) [place] % (Auto) Eos % (Auto) Baso % (Auto) Absolute Neuts (auto) Absolute Lymphs (auto) Nucleated RBC % Differential Comment Platelet Estimate Hypochromasia Anisocytosis Microcytosis Ovalocytes PT INR APTT Sodium Potassium Chloride Carbon Dioxide Anion Gap BUN Creatinine Estim Creat Clear Calc Est GFR (MDRD) Af Amer Est GFR (MDRD) Non-Af BUN/Creatinine Ratio Glucose Lactic Acid 2.3 H* 1.2 Calcium Total Bilirubin AST ALT Alkaline Phosphatase Troponin I Total Protein Albumin Globulin Albumin/Globulin Ratio Urine Color Yellow Urine Clarity Cloudy Urine pH 7.0 Ur Specific [place] 1.010 Urine Protein 100 H Urine Glucose (UA) Normal Urine Ketones Negative Urine Occult Blood 250 H Urine Nitrite Negative Urine Bilirubin Negative Urine Urobilinogen Normal Ur Leukocyte Esterase 500 H Urine RBC 10-25 SEEN Urine WBC 10-25 SEEN Ur Squamous Epith Cells 10-25 SEEN Urine Bacteria 0 SEEN Urine Mucus 0 SEEN 11/13/20 11/13/20 04:10 04:10 WBC 6.0 RBC 5.19 Hgb 11.0 L Hct 37.5 L MCV 72.3 L MCH 21.2 L MCHC 29.3 L RDW Std Deviation 53.4 H RDW Coeff of Manuela 21.1 H Plt Count 176 MPV 9.4 Immature Gran % (Auto) 1.000 H Neut % (Auto) 89.7 H Lymph % (Auto) 2.3 L [place] % (Auto) 6.5 Eos % (Auto) 0.3 Baso % (Auto) 0.2 Absolute Neuts (auto) 5.4 Absolute Lymphs (auto) 0.14 L Nucleated RBC % 0 Differential Comment SCANNED Platelet Estimate Hypochromasia Anisocytosis 1+ Microcytosis Ovalocytes PT INR APTT Sodium 139 Potassium 4.5 Chloride 106 Carbon Dioxide 28.0 Anion Gap 5 BUN 20 H Creatinine 1.52 H Estim Creat Clear Calc 38.65 Est GFR (MDRD) Af Amer 58 L Est GFR (MDRD) Non-Af 48 L BUN/Creatinine Ratio 13.2 Glucose 117 H Lactic Acid Calcium 7.7 L Total Bilirubin AST ALT Alkaline Phosphatase Troponin I Total Protein Albumin Globulin Albumin/Globulin Ratio Urine Color Urine Clarity Urine pH Ur Specific [place] Urine Protein Urine Glucose (UA) Urine Ketones Urine Occult Blood Urine Nitrite Urine Bilirubin Urine Urobilinogen Ur Leukocyte Esterase Urine RBC Urine WBC Ur Squamous Epith Cells Urine Bacteria Urine Mucus Micro: Microbiology 11/12/20 17:25 SARS-CoV-2 Antigen (Rapid) - Final Nasal Secretion Radiology Impression Brain CT 11/12/20 17:27 IMPRESSION: Chronic involutional and white matter changes. No acute intracranial process. Chronic left sinusitis. Individualized dose optimization techniques were used for this CT. at 1810 Reported and signed by: Alfred Perez MD Electronically Signed: Alfred Perez MD at 18:09 EDT Tel , Service support , Chest X-Ray 11/12/20 17:45 IMPRESSION: Cardiomegaly without radiographic evidence of acute cardiopulmonary disease. at 1812 Reported and signed by: Alfred Perez MD Electronically Signed: Alfred Perez MD at 18:11 EDT Tel , Service support , Charges/Coding Visit Charges Inpatient E&M: 20656 Init Hosp L2
--- NOTE | 2020-11-13 09:40 | CASEMGMT ---
LUIS ZAYAS assessment: Face to Face with patient for initial transition planning/care coordination assessment. LUIS ZAYAS introduced self and role at [facility], pt voices understanding and consents to assessment. Pt is sitting up in bed in no distress. Pt is A/Ox4 and answers all questions appropriately. Care providers, pharmacy, and demographics verified. Presentation: started antibx for UTI yesterday, increased confusion/temp today Admitting dx: Severe sepsis PCP: Shelley Specialists: jessica Prather Preferred Pharmacy: [facility] mail order Insurance: [facility] Prescription Benefit: [facility] Living Will/HPOA: Pt states has LW/HPOA and is aware that they are not on file at [facility]. Pt states his , Snow Carlson, is HPOA. LNOK: Snow Carlson, /HPOA; Joaquina Pope, daughter Living Arrangements: Pt states lives with in 1 story home and states no concerns at home. Pt states is independent with ADL's. Transportation: Pt states drives self and states no transportation. DME/HHC: Pt states has cane, walker, and shower chair. Pt states no need for any further DME. Pt states no hx of HHC or SNF in the past. Pt states no concerns with going home at time of discharge. Pt is retired. Pt states does not smoke cigarettes or drink ETOH. Pt states no further concerns/needs. CM to follow for any further discharge planning/needs. Advised pt to ask for CM if any further questions/concerns/needs, voices understanding. Pt Goal: Home Plan[place] LUIS ZAYAS
[2020-11-13] MEDS: Ceftriaxone 1 GM/50 ML BAG IV ×2 (10:04→21:53)
[2020-11-13] MEDS: Dorzolamide HCL/Timolol 10 ml Bottle 1 DRP OPHTHALMIC ×2 (10:04→21:52)
[2020-11-13] MEDS: Heparin Injection (Vial) 5,000 UNIT/ML VIAL 5000 UNIT SC ×2 (10:05→21:52)
--- NOTE | 2020-11-13 11:03 | PCM.PN.HOSP ---
Subjective Subjective Patient was seen and examined. He complains of difficulty urinating. Denied any dysuria or frequency or urgency or lower abdominal pain. Objective Data Objective Data Vital Signs: Vital Signs Temp Pulse Resp BP Pulse Ox 98.4 F 99 24 H 123/74 H 98 11/13/20 10:00 11/13/20 10:00 11/13/20 10:00 11/13/20 10:00 11/13/20 10:00 Oxygen Flow Rate (L/min) 2 Oxygen Delivery Method Room Air Weight: 97.6 kg Body Mass Index (BMI) 33.7 Intake & Output: Intake and Output for Last 24 Hours 11/11/20 11/12/20 11/13/20 23:59 23:59 23:59 Intake Total 1550 / 1550 982.50 / 982.50 Output Total 400 / 400 Balance 1550 / 1550 582.50 / 582.50 Lab / Micro Data Result Diagrams: 11/13/20 04:10 11/13/20 04:10 Labs: Laboratory Results - last 24 hr 11/12/20 11/12/20 11/12/20 17:07 17:07 17:07 WBC 8.1 RBC 6.03 Hgb 12.8 L Hct 43.3 MCV 71.8 L MCH 21.2 L MCHC 29.6 L RDW Std Deviation 52.9 H RDW Coeff of Manuela 21.6 H Plt Count 233 MPV 10.0 Immature Gran % (Auto) 0.500 Neut % (Auto) 90.8 H Lymph % (Auto) 2.5 L Mitchell % (Auto) 6.0 Eos % (Auto) 0.1 Baso % (Auto) 0.1 Absolute Neuts (auto) 7.4 Absolute Lymphs (auto) 0.20 L Nucleated RBC % 0 Differential Comment SCANNED Platelet Estimate ADEQUATE Hypochromasia 1+ Anisocytosis 4+ Microcytosis 1+ Ovalocytes RARE PT 13.0 INR 1.0 APTT 28.9 Sodium 136 Potassium 4.2 Chloride 101 Carbon Dioxide 27.0 Anion Gap 8 BUN 24 H Creatinine 1.76 H Estim Creat Clear Calc 34.55 Est GFR (MDRD) Af Amer 49 L Est GFR (MDRD) Non-Af 40 L BUN/Creatinine Ratio 13.6 Glucose 108 H Lactic Acid Calcium 8.6 Total Bilirubin 0.80 AST 17 ALT 10 L Alkaline Phosphatase 89 Troponin I < 0.015 Total Protein 7.9 Albumin 3.5 Globulin 4.4 H Albumin/Globulin Ratio 0.8 L Urine Color Urine Clarity Urine pH Ur Specific [place] Urine Protein Urine Glucose (UA) Urine Ketones Urine Occult Blood Urine Nitrite Urine Bilirubin Urine Urobilinogen Ur Leukocyte Esterase Urine RBC Urine WBC Ur Squamous Epith Cells Urine Bacteria Urine Mucus 11/12/20 11/12/20 11/12/20 17:07 20:55 21:32 WBC RBC Hgb Hct MCV MCH MCHC RDW Std Deviation RDW Coeff of Manuela Plt Count MPV Immature Gran % (Auto) Neut % (Auto) Lymph % (Auto) Mitchell % (Auto) Eos % (Auto) Baso % (Auto) Absolute Neuts (auto) Absolute Lymphs (auto) Nucleated RBC % Differential Comment Platelet Estimate Hypochromasia Anisocytosis Microcytosis Ovalocytes PT INR APTT Sodium Potassium Chloride Carbon Dioxide Anion Gap BUN Creatinine Estim Creat Clear Calc Est GFR (MDRD) Af Amer Est GFR (MDRD) Non-Af BUN/Creatinine Ratio Glucose Lactic Acid 2.3 H* 1.2 Calcium Total Bilirubin AST ALT Alkaline Phosphatase Troponin I Total Protein Albumin Globulin Albumin/Globulin Ratio Urine Color Yellow Urine Clarity Cloudy Urine pH 7.0 Ur Specific [place] 1.010 Urine Protein 100 H Urine Glucose (UA) Normal Urine Ketones Negative Urine Occult Blood 250 H Urine Nitrite Negative Urine Bilirubin Negative Urine Urobilinogen Normal Ur Leukocyte Esterase 500 H Urine RBC 10-25 SEEN Urine WBC 10-25 SEEN Ur Squamous Epith Cells 10-25 SEEN Urine Bacteria 0 SEEN Urine Mucus 0 SEEN 11/13/20 11/13/20 04:10 04:10 WBC 6.0 RBC 5.19 Hgb 11.0 L Hct 37.5 L MCV 72.3 L MCH 21.2 L MCHC 29.3 L RDW Std Deviation 53.4 H RDW Coeff of Manuela 21.1 H Plt Count 176 MPV 9.4 Immature Gran % (Auto) 1.000 H Neut % (Auto) 89.7 H Lymph % (Auto) 2.3 L Mitchell % (Auto) 6.5 Eos % (Auto) 0.3 Baso % (Auto) 0.2 Absolute Neuts (auto) 5.4 Absolute Lymphs (auto) 0.14 L Nucleated RBC % 0 Differential Comment SCANNED Platelet Estimate Hypochromasia Anisocytosis 1+ Microcytosis Ovalocytes PT INR APTT Sodium 139 Potassium 4.5 Chloride 106 Carbon Dioxide 28.0 Anion Gap 5 BUN 20 H Creatinine 1.52 H Estim Creat Clear Calc 38.65 Est GFR (MDRD) Af Amer 58 L Est GFR (MDRD) Non-Af 48 L BUN/Creatinine Ratio 13.2 Glucose 117 H Lactic Acid Calcium 7.7 L Total Bilirubin AST ALT Alkaline Phosphatase Troponin I Total Protein Albumin Globulin Albumin/Globulin Ratio Urine Color Urine Clarity Urine pH Ur Specific [place] Urine Protein Urine Glucose (UA) Urine Ketones Urine Occult Blood Urine Nitrite Urine Bilirubin Urine Urobilinogen Ur Leukocyte Esterase Urine RBC Urine WBC Ur Squamous Epith Cells Urine Bacteria Urine Mucus Micro: Microbiology 11/12/20 20:55 Urine, Random Urine Culture - Preliminary Culture exhibits no growth. 11/12/20 17:25 Nasal Secretion SARS-CoV-2 Antigen (Rapid) - Final Radiography Diagnostic Testing: Radiology Impression Brain CT 11/12/20 17:27 IMPRESSION: Chronic involutional and white matter changes. No acute intracranial process. Chronic left sinusitis. Individualized dose optimization techniques were used for this CT. at 1810 Reported and signed by: Alfred Perez MD Electronically Signed: Alfred Perez MD at 18:09 EDT Tel , Service support , Chest X-Ray 11/12/20 17:45 IMPRESSION: Cardiomegaly without radiographic evidence of acute cardiopulmonary disease. at 1812 Reported and signed by: Alfred Perez MD Electronically Signed: Alfred Perez MD at 18:11 EDT Tel , Service support , Physical Exam Narrative General: Alert, Oriented x3, Cooperative, No apparent distress, Well developed HEENT: Atraumatic Oral: Moist Mucosa Neck: Supple Lungs: Clear to auscultation Cardiovascular: HS I+II, regular, no murmurs Abdomen: Bowel Sounds Present, Soft, Non Tender Extremities: No edema Skin: No rashes, No breakdown Neurological: Grossly intact Psych/Mental Status: Appropriate Assessment & Plan Assessment/Plan (1) Severe sepsis: (2) ALFRED (acute kidney injury): (3) Bladder outflow obstruction: PLAN: 1. Severe sepsis secondary to UTI, patient generally appears slightly improved Vitals have remained stable, urine cultures are pending Continue on IV ceftriaxone for now; will switch to oral antibiotics from tomorrow 2. A. fib with RVR secondary to #1, heart rate appears improved, atenolol held for relative hypotension Will resume home atenolol as well as continue with home Cardizem Will monitor blood pressure and heart rate closely 3. ALFRED, prerenal secondary to #1, vs post-renal from obstructive uropathy, creatinine is improving Cr is 1.52 from 1.76, baseline creatinine was 1 Patient has BPH, follows with Dr. Seymour in the outpatient On admission, ED had difficulty passing Somers catheter; urology consulted recommended watching as patient was able to pass urine Renal ultrasound is pending, will get a bladder scan Continue to hold home Lasix. Continue gentle IV fluids. Repeat labs 4. Hypertension, continue with atenolol and cardizem, continue to monitor vitals closely. 5. Parkinson's disease, complicates care, continue on Carbidopa/levodopa and Mirapex Visit Charges Inpatient E&M: 05812 Subs Hosp L2
[2020-11-13] MEDS: Atenolol 50 MG Tablet PO (12:27)
[2020-11-13] MEDS: 0.9% Saline Lock 10 ML Syringe IV (13:57)
--- NOTE | 2020-11-13 15:05 | CHAPLAIN ---
Type of Pastoral Visit _x__ Initial Visit ___ Follow-up Visit ___ On-call Visit ___ General Patient Visit ___ Spiritual Assessment ___ Family Conference ___ Bereavement ___ Rapid Response ___ Code Blue ___ Other (describe below) Pastoral Care Referral From _x__ Patient ___ Family ___ Nurse ___ Physician ___ [employer] ___ Investment Consultant ___ Other (describe below) Sacrament/Intervention _x__ Active listening ___ Anointing ___ Confucianism ___ Bereavement ___ Communion ___ Kristen exploration ___ ___ Life review _x__ Prayer ___ Reconciliation ___ Sacrament of Sick ___ Supportive presence ___ Wedding ___ Other (describe below) Pastoral Comments
--- NOTE | 2020-11-13 15:13 | CON.PCM.UR_ITS ---
Assessment & Plan Assessment/Plan (1) UTI (urinary tract infection): PLAN: Plan to do a CT scan evaluate the bladder stone and also possible kidney stone, plan for him. Midnight in case intervention is necessary tomorrow in the OR HPI Consult Data Date of Consult: 11/13/20 HPI Narrative HPI Narrative: KAREN MOYA, is a 75 M who presents To the hospital with possible UTI not feeling well is in the ICU also has been able to urinate ultrasound was done today postwar residuals not too bad a 150 but there appears a be a possible stone in the bladder on ultrasound also a possible stone in the left UPJ area on the kidney will do a CAT scan to further evaluate this. MPO at midnight. 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 Other secondary pulmonary hypertension Parkinsons disease Persistent atrial fibrillation Prostate cancer Home Medications diltiazem HCl 120 mg capsule,24 hr,extended release 120 mg PO DAILY #90 cap 02/13/20 [Rx Last Taken 05/10/20] potassium chloride 20 mEq tablet,extended release 20 meq PO QDAY #90 tab 03/27/20 [Rx Last Taken Unknown] pramipexole 0.5 mg tablet 0.5 mg PO QHS 03/27/20 [History Last Taken Unknown] furosemide 40 mg PO DAILY 05/10/20 [History Last Taken Unknown] oxybutynin chloride 10 mg PO DAILY 05/10/20 [History Last Taken Unknown] atenolol 50 mg tablet 50 mg PO .COMPLEX tablet 09/25/20 [History Last Taken Unknown] calcium carbonate 600 mg (1,500 mg)-vitamin D3 500 unit capsule 1 cap PO DAILY 09/25/20 [History Last Taken Unknown] carbidopa ER 50 mg-levodopa 200 mg tablet,extended release 1 tablet PO TID tablet 09/25/20 [History Last Taken Unknown] dorzolamide 22.3 mg-timolol 6.8 mg/mL eye drops 1 drp OPHTHALMIC BID ml 09/25/20 [History Last Taken Unknown] atenolol 25 mg PO QHS 11/12/20 [History Last Taken Unknown] prednisolone acetate 1 drp LEFT EYE BID 11/13/20 [History Last Taken Unknown] Allergy/AdvReac Type Severity Reaction Status Date / Time No Known Allergies Allergy Verified 11/12/20 17:02 Family History Brother Atrial fibrillation Surgical History History of cataract extraction History of hernia repair Social History Smoking Status: Never smoker alcohol intake: never substance use type: does not use caffeine: Yes Type: carbonated beverages Number of servings: 1 Lab / Micro Data Result Diagrams: 11/13/20 04:10 11/13/20 04:10 Labs: Laboratory Results - last 24 hr 11/12/20 11/12/20 11/12/20 17:07 17:07 17:07 WBC 8.1 RBC 6.03 Hgb 12.8 L Hct 43.3 MCV 71.8 L MCH 21.2 L MCHC 29.6 L RDW Std Deviation 52.9 H RDW Coeff of Manuela 21.6 H Plt Count 233 MPV 10.0 Immature Gran % (Auto) 0.500 Neut % (Auto) 90.8 H Lymph % (Auto) 2.5 L Eddy % (Auto) 6.0 Eos % (Auto) 0.1 Baso % (Auto) 0.1 Absolute Neuts (auto) 7.4 Absolute Lymphs (auto) 0.20 L Nucleated RBC % 0 Differential Comment SCANNED Platelet Estimate ADEQUATE Hypochromasia 1+ Anisocytosis 4+ Microcytosis 1+ Ovalocytes RARE PT 13.0 INR 1.0 APTT 28.9 Sodium 136 Potassium 4.2 Chloride 101 Carbon Dioxide 27.0 Anion Gap 8 BUN 24 H Creatinine 1.76 H Estim Creat Clear Calc 34.55 Est GFR (MDRD) Af Amer 49 L Est GFR (MDRD) Non-Af 40 L BUN/Creatinine Ratio 13.6 Glucose 108 H Lactic Acid Calcium 8.6 Total Bilirubin 0.80 AST 17 ALT 10 L Alkaline Phosphatase 89 Troponin I < 0.015 Total Protein 7.9 Albumin 3.5 Globulin 4.4 H Albumin/Globulin Ratio 0.8 L Urine Color Urine Clarity Urine pH Ur Specific [place] Urine Protein Urine Glucose (UA) Urine Ketones Urine Occult Blood Urine Nitrite Urine Bilirubin Urine Urobilinogen Ur Leukocyte Esterase Urine RBC Urine WBC Ur Squamous Epith Cells Urine Bacteria Urine Mucus 11/12/20 11/12/20 11/12/20 17:07 20:55 21:32 WBC RBC Hgb Hct MCV MCH MCHC RDW Std Deviation RDW Coeff of Manuela Plt Count MPV Immature Gran % (Auto) Neut % (Auto) Lymph % (Auto) Eddy % (Auto) Eos % (Auto) Baso % (Auto) Absolute Neuts (auto) Absolute Lymphs (auto) Nucleated RBC % Differential Comment Platelet Estimate Hypochromasia Anisocytosis Microcytosis Ovalocytes PT INR APTT Sodium Potassium Chloride Carbon Dioxide Anion Gap BUN Creatinine Estim Creat Clear Calc Est GFR (MDRD) Af Amer Est GFR (MDRD) Non-Af BUN/Creatinine Ratio Glucose Lactic Acid 2.3 H* 1.2 Calcium Total Bilirubin AST ALT Alkaline Phosphatase Troponin I Total Protein Albumin Globulin Albumin/Globulin Ratio Urine Color Yellow Urine Clarity Cloudy Urine pH 7.0 Ur Specific [place] 1.010 Urine Protein 100 H Urine Glucose (UA) Normal Urine Ketones Negative Urine Occult Blood 250 H Urine Nitrite Negative Urine Bilirubin Negative Urine Urobilinogen Normal Ur Leukocyte Esterase 500 H Urine RBC 10-25 SEEN Urine WBC 10-25 SEEN Ur Squamous Epith Cells 10-25 SEEN Urine Bacteria 0 SEEN Urine Mucus 0 SEEN 11/13/20 11/13/20 04:10 04:10 WBC 6.0 RBC 5.19 Hgb 11.0 L Hct 37.5 L MCV 72.3 L MCH 21.2 L MCHC 29.3 L RDW Std Deviation 53.4 H RDW Coeff of Manuela 21.1 H Plt Count 176 MPV 9.4 Immature Gran % (Auto) 1.000 H Neut % (Auto) 89.7 H Lymph % (Auto) 2.3 L Eddy % (Auto) 6.5 Eos % (Auto) 0.3 Baso % (Auto) 0.2 Absolute Neuts (auto) 5.4 Absolute Lymphs (auto) 0.14 L Nucleated RBC % 0 Differential Comment SCANNED Platelet Estimate Hypochromasia Anisocytosis 1+ Microcytosis Ovalocytes PT INR APTT Sodium 139 Potassium 4.5 Chloride 106 Carbon Dioxide 28.0 Anion Gap 5 BUN 20 H Creatinine 1.52 H Estim Creat Clear Calc 38.65 Est GFR (MDRD) Af Amer 58 L Est GFR (MDRD) Non-Af 48 L BUN/Creatinine Ratio 13.2 Glucose 117 H Lactic Acid Calcium 7.7 L Total Bilirubin AST ALT Alkaline Phosphatase Troponin I Total Protein Albumin Globulin Albumin/Globulin Ratio Urine Color Urine Clarity Urine pH Ur Specific [place] Urine Protein Urine Glucose (UA) Urine Ketones Urine Occult Blood Urine Nitrite Urine Bilirubin Urine Urobilinogen Ur Leukocyte Esterase Urine RBC Urine WBC Ur Squamous Epith Cells Urine Bacteria Urine Mucus Micro: Microbiology 11/12/20 20:55 Urine Culture - Preliminary Urine, Random Culture exhibits no growth. 11/12/20 17:25 SARS-CoV-2 Antigen (Rapid) - Final Nasal Secretion Radiology Impression Brain CT 11/12/20 17:27 IMPRESSION: Chronic involutional and white matter changes. No acute intracranial process. Chronic left sinusitis. Individualized dose optimization techniques were used for this CT. at 1810 Reported and signed by: Alfrde Perez MD Electronically Signed: Alfred Perez MD at 18:09 EDT Tel , Service support , Chest X-Ray 11/12/20 17:45 IMPRESSION: Cardiomegaly without radiographic evidence of acute cardiopulmonary disease. at 1812 Reported and signed by: Alfred Perez MD Electronically Signed: Alfred Perez MD at 18:11 EDT Tel , Service support , Renal Ultrasound 11/13/20 06:52 IMPRESSION: Questionable 6 mm calculus at the left ureteropelvic junction. Solitary stone in the urinary bladder. Electronically Signed: Fausto Gross MD at 13:35 EDT , Service support ,
--- NOTE | 2020-11-13 15:16 | CT_ITS ---
STUDY: CT ABDOMEN AND PELVIS WITHOUT CONTRAST REASON FOR EXAM: Male, 75 years old. kidney stone. UTI RADIATION DOSAGE (If Supplied By Facility): CTDIvol = ( 18.31 ) mGy, DLP = ( 887.45 ) mGycm TECHNIQUE: Transaxial images were obtained from the dome of the diaphragm to the symphysis pubis without oral contrast, and without intravenous contrast. Sagittal and coronal images were reconstructed. Individualized dose optimization techniques were used for this CT. COMPARISON: Prior abdomen and pelvic CT exam of 03/23/2019 FINDINGS: Substantial atelectasis or consolidation in the costophrenic angles. Negative for pleural effusion. The visualized portions of the heart are within normal limits. Normal liver. Normal gallbladder and extrahepatic biliary system. Normal spleen. Normal pancreas. Normal bilateral adrenal glands. Stable cyst of the upper pole of the right kidney. Otherwise normal right kidney with about hydronephrosis or ureteral stones. Normal left kidney without hydronephrosis or stones. However, there is a 8 x 5 mm bladder calcification superior to the ureterovesicular junctions and slightly to the right of midline in the upper portion of the posterior bladder. There is a 4 mm bladder calcification that is near/just below the left ureterovesicular junction. There is a new central prostate calcification that measures 8 x 3 x 7 mm The bladder lumen is not opacified. There still appears to be in focal area of bladder wall thickening on the right side of the urinary bladder not as well-visualized as on the prior exam. Normal visualized stomach. Normal small intestine. Diverticulosis of the colon without acute diverticulitis. The appendix is visualized and appears normal. There is diffuse atherosclerotic calcification of the abdominal aorta, without a demonstrated aneurysm. Normal inferior vena cava. Normal retroperitoneum. Bilateral fatty inguinal hernias. Degenerative changes of the lumbar spine with a bilateral chronic pars interarticularis defect with a grade [address]/Abdomen/Pelvis without Cont IMPRESSION: Negative for hydronephrosis. However, there is a 4 mm stone within the bladder lumen near the left ureterovesicular junction consistent with a stone which may still be lodged at the ureterovesicular junction. There is an additional flat 8 x 5 bladder calcification that may be intraluminal or may be an actual wall calcification in the posterior bladder wall above the ureterovesicular junction. Again noted is some thickening along the right bladder wall not as obvious as on the prior exam. There is a new central prostate calcification which measures 8 x 3 x 7 mm not formerly present. Potentially this could be a urethral calcification but there is no evidence of proximal ureteral dilatation. No other acute intra-abdominal or pelvic findings. Electronically Signed: Giovana Jacobs MD at 17:10 EDT , Service support ,
[2020-11-13] MEDS: Pramipexole Di-HCl 0.5 MG Tablet PO (21:52)
[2020-11-13] MEDS: prednisoLONE eye drops (5 mL) 1 DROP OPTH.BTL 1 DRP LEFT EYE (21:53)
[2020-11-13] MEDS: Atenolol 25 MG Tablet PO (21:55)
[2020-11-14] VITALS (17 sets, daily range): BP systolic 104–158; BP diastolic 65–98; PULSE 83–93; RESP 16–24; TEMP 36.2–36.7; O2SAT 93–99; BMI 34.1
[2020-11-14 03:56] LABS: Absolute Lymphocyte Count 0.34 X10^3/uL (0.83-4.51); Absolute Neutrophil Count 3.8 X10^3/uL (2.0-7.7); Basophil# 0.01 X10^3/uL; Basophil% 0.2 % (0-1); Eosinophil# 0.09 X10^3/uL; Eosinophils% 1.9 % (0-5); Hematocrit 37.4 % (40-54); Hemoglobin 10.9 g/dL (13.0-16.5); Lymphocyte # 0.34 X10^3/ul (0.83-4.51); Mean Corp Hgb Conc 29.1 g/dL (32-36); Mean Corpuscular Hgb 20.9 pg (27.0-32.0); Mean Corpuscular Volume 71.8 fL (80-94); Monocyte# 0.57 X10^3/uL; Monocyte% 11.8 % (0-10); NRBC Flagged by Analyzer 0 % (0-5); Neutrophil # 3.79 X10^3/uL (2.7-7.7); Neutrophil % 78.1 % (47-70); POSITIVE DIFFERENTIAL YES; POSITIVE MORPHOLOGY YES; Platelet Count 160 K/mm3 (150-450); RBC Distribution Width CV 21.1 % (11.6-14.6); RBC Distribution Width SD 52.9 fl (35.1-43.9); Red Blood Count 5.21 M/mm3 (4.6-6.2); White Blood Count 4.9 K/mm3 (4.4-11.0)
[2020-11-14] MEDS: 0.9% Saline Lock 10 ML Syringe IV (03:59)
[2020-11-14] MEDS: 0.9% Normal Saline 1,000 ML 75 ML IV (03:59)
[2020-11-14 04:18] LABS: ALB/GLOB Ratio 0.7 RATIO (0.9-2.4); AST(SGOT) 17 U/L (15-37); Alanine Aminotransfer ALT/SGPT < 6 U/L (16-61); Albumin, Serum 2.5 g/dL (3.2-5.0); Alkaline Phosphatase 75 U/L (45-117); Anion Gap 5 (5-15); BUN 19 mg/dL (7-18); BUN/Creat Ratio 15.2 RATIO (10-20); Calcium,Total 7.3 mg/dL (8.5-10.1); Chloride 107 mmol/L (98-107); Creatinine, Serum 1.25 mg/dL (0.70-1.30); EST Glomerular Filtration Rate 60 mL/min (>60); Est Glom Filt Rate - Afr Amer 72 mL/min (>60); Globulin 3.6 g/dL (2.2-4.2); Glucose 105 mg/dL (74-106); Potassium 3.9 mmol/L (3.5-5.1); Protein, Total 6.1 g/dL (6.4-8.2); Sodium Level 136 mmol/L (136-145)
[2020-11-14 04:36] LABS: Differential Indicated SCAN CRITERIA MET
[2020-11-14 04:37] LABS: Differential Comment SCANNED
[2020-11-14 04:38] LABS: Anisocytosis 1+
[2020-11-14 04:39] LABS: Microcytosis 1+
[2020-11-14] MEDS: CARBIDOPA/LEVODOPA CR 50/200 Tablet PO ×2 (06:52→22:00)
[2020-11-14] MEDS: Dorzolamide HCL/Timolol 10 ml Bottle 1 DRP OPHTHALMIC ×2 (10:16→21:58)
[2020-11-14] MEDS: dilTIAZem CD 120 MG Capsule PO (10:16)
[2020-11-14] MEDS: Atenolol 50 MG Tablet PO (10:16)
[2020-11-14] MEDS: prednisoLONE eye drops (5 mL) 1 DROP OPTH.BTL 1 DRP LEFT EYE ×2 (10:16→21:59)
[2020-11-14] MEDS: Ceftriaxone 1 GM/50 ML BAG IV ×2 (10:24→22:17)
--- NOTE | 2020-11-14 10:58 | CASEMGMT ---
LUIS ZAYAS NOTE: Pt screened with [facility] Palliative Care Screening Tool for strata 3, pt did not meet criteria. Alayna ATKINSN RN CM
--- NOTE | 2020-11-14 13:00 | NURSING ---
Taken down to PACU/AC via OR staff
--- NOTE | 2020-11-14 15:19 | CASEMGMT ---
LUIS ZAYAS NOTE: PT/OT evals have been reviewed--additional therapy recommended. Pt ambulated 12', min A of 1. Pt is out of room at this time for procedure. LUIS ZAYAS attempted x 3 to contact pt's to discuss discharge planning/options. No answer and VM is full. CM/SW to f/u Sat re: discharge planning. Alayna BSN LUIS ZAYAS
--- NOTE | 2020-11-14 15:46 | PCM.OPRPT ---
Problems Associated Problem List Diagnoses (1) Urethral stricture: (2) Bladder stone: Report of Operation Date of Procedure: 11/14/20 Pre-Operative Diagnosis: Urethral stricture severe and bladder stones Post-Operative Diagnosis: Same Surgery/Procedure Performed:: Cystoscopy direct vision internal urethrotomy, cystoscopy and cystolitholapaxy for 2 cm bladder stone Description of Surgical Findings:: 75-year-old male was taken back to the operating room at the smooth induction of general anesthesia he was placed in dorsolithotomy position he was in diapers the diaper was removed, the penis and testicles were prepped and draped in usual sterile fashion, I then went into the bladder through the urethra with a 21 Norwegian rigid cystourethroscope meatus was wide open the pendulous urethra was open got to the bulbar urethra and he had a pinpoint stricture and possible to get through I used a Glidewire and the Glidewire went to the pinpoint stricture in the bulbar urethra I went up into the prostate into the bladder I could see this under fluoroscopic guidance. Then left the wire in place next the wire I switched over to the DVIU Olympus resectoscope set. Went in with the DVIU set using the beveled cold knife and then following the wire I cut at the 12 o'clock position to I opened up the stricture all the way I was then able to get into the prostate past the verumontanum had a very short prostate the bladder neck was wide open then I got inside the bladder and there were 2 stones one stuck in the posterior wall and one stuck on the lateral wall I used a 2000 ?m laser fiber and laser the stone of the posterior wall into little tiny pieces all the pieces were flushed out of the bladder and then lasered the lateral wall stone into little tiny pieces. Once all the both pieces were removed of the bladder then I removed the resectoscope set over the wire then placed 20 Norwegian catheter into the bladder really leave the stent for 6 weeks let everything heal up the stricture was very tight had to dilate this open this can be a risk that he could have incontinence after this procedure I told the patient and the family that. Left the catheter in place percent patient anesthetic is being reversed and he is headed back to PACU. Surgeon: Robert Prather Type of Anesthesia: General Drains: chavarria 20 fr. Admit VTE Documentation VTE Present on Admission: No VTE Mechan Device Prophylaxis: SCD's
--- NOTE | 2020-11-14 15:49 | PCM.PN.HOSP ---
Subjective Subjective Patient was seen and examined. He feels well. Going for cystoscopy and possible lithotripsy. Denies any fever or chills. Objective Data Objective Data Vital Signs: Vital Signs Temp Pulse Resp BP Pulse Ox 97.4 F L 88 17 114/79 99 11/14/20 11:46 11/14/20 11:46 11/14/20 11:46 11/14/20 11:46 11/14/20 11:46 Oxygen Flow Rate (L/min) 2 Oxygen Delivery Method Room Air Weight: 98.7 kg Body Mass Index (BMI) 34.1 Intake & Output: Intake and Output for Last 24 Hours 11/12/20 11/13/20 11/14/20 23:59 23:59 23:59 Intake Total 1550 / 1550 2176.25 / 2176.25 1532.5 / 1532.5 Output Total 650 / 875 500 / 500 Balance 1550 / 1550 1526.25 / 1301.25 1032.5 / 1032.5 Lab / Micro Data Result Diagrams: 11/14/20 03:40 11/14/20 03:40 Labs: Laboratory Results - last 24 hr 11/14/20 11/14/20 03:40 03:40 WBC 4.9 RBC 5.21 Hgb 10.9 L Hct 37.4 L MCV 71.8 L MCH 20.9 L MCHC 29.1 L RDW Std Deviation 52.9 H RDW Coeff of Manuela 21.1 H Plt Count 160 MPV 10.0 Immature Gran % (Auto) 1.000 H Neut % (Auto) 78.1 H Lymph % (Auto) 7.0 L [place] % (Auto) 11.8 H Eos % (Auto) 1.9 Baso % (Auto) 0.2 Absolute Neuts (auto) 3.8 Absolute Lymphs (auto) 0.34 L Nucleated RBC % 0 Differential Comment SCANNED Anisocytosis 1+ Microcytosis 1+ Sodium 136 Potassium 3.9 Chloride 107 Carbon Dioxide 24.0 Anion Gap 5 BUN 19 H Creatinine 1.25 Estim Creat Clear Calc 47.00 Est GFR (MDRD) Af Amer 72 Est GFR (MDRD) Non-Af 60 BUN/Creatinine Ratio 15.2 Glucose 105 Calcium 7.3 L Total Bilirubin 0.40 AST 17 ALT < 6 L Alkaline Phosphatase 75 Total Protein 6.1 L Albumin 2.5 L Globulin 3.6 Albumin/Globulin Ratio 0.7 L Micro: Microbiology 11/12/20 20:55 Urine, Random Urine Culture - Preliminary Alpha hemolytic organism 11/12/20 17:25 Nasal Secretion SARS-CoV-2 Antigen (Rapid) - Final Radiography Diagnostic Testing: Radiology Impression Abdomen/Pelvis CT 11/13/20 15:16 IMPRESSION: Negative for hydronephrosis. However, there is a 4 mm stone within the bladder lumen near the left ureterovesicular junction consistent with a stone which may still be lodged at the ureterovesicular junction. There is an additional flat 8 x 5 bladder calcification that may be intraluminal or may be an actual wall calcification in the posterior bladder wall above the ureterovesicular junction. Again noted is some thickening along the right bladder wall not as obvious as on the prior exam. There is a new central prostate calcification which measures 8 x 3 x 7 mm not formerly present. Potentially this could be a urethral calcification but there is no evidence of proximal ureteral dilatation. No other acute intra-abdominal or pelvic findings. Electronically Signed: Giovana Jacobs MD at 17:10 EDT , Service support , Physical Exam Narrative General: Alert, Oriented x3, Cooperative, No apparent distress, Well developed HEENT: Atraumatic Oral: Moist Mucosa Neck: Supple Lungs: Clear to auscultation Cardiovascular: HS I+II, regular, no murmurs Abdomen: Bowel Sounds Present, Soft, Non Tender Extremities: No edema Skin: No rashes, No breakdown Neurological: Grossly intact Psych/Mental Status: Appropriate Assessment & Plan Assessment/Plan (1) Severe sepsis: (2) ALFRED (acute kidney injury): (3) Bladder outflow obstruction: (4) Obstructive uropathy: PLAN: 1. Severe sepsis secondary to UTI, improving Vitals have remained stable, urine cultures are growing alphahemolytic organism Continue on IV ceftriaxone 2. A. fib with RVR secondary to #1, heart rate is controlled Continue on Cardizem and atenolol Not on anticoagulation 3. Obstructive uropathy, CT of the abdomen and pelvis as well as renal ultrasound shows 4 mm stone near the bladder lumen near the left ureterovesicular junction. 8 x 5 mm bladder calcification Patient is going for cystoscopy and possible lithotripsy by urology 4. ALFRED, prerenal secondary to #1, vs post-renal from obstructive uropathy, creatinine is improving Cr is 1.25 from 1.76, baseline creatinine was 1 Patient has BPH, follows with Dr. Seymour in the outpatient On admission, ED had difficulty passing Somers catheter; urology consulted recommended watching as patient was able to pass urine Renal ultrasound is pending, will get a bladder scan Continue to hold home Lasix. Continue gentle IV fluids. Repeat labs 5. Hypertension, continue with atenolol and cardizem, continue to monitor vitals closely. 6. Parkinson's disease, complicates care, continue on Carbidopa/levodopa and Mirapex Visit Charges Inpatient E&M: 22224 Subs Hosp L3
[2020-11-14] MEDS: Heparin Injection (Vial) 5,000 UNIT/ML VIAL 5000 UNIT SC (21:59)
[2020-11-14] MEDS: Pramipexole Di-HCl 0.5 MG Tablet PO (22:00)
[2020-11-14] MEDS: Atenolol 25 MG Tablet PO (22:01)
[2020-11-14] MEDS: Senna/Docusate Sodium 1 Tablet 2 TABLET PO (22:04)
[2020-11-15] VITALS (7 sets, daily range): BP systolic 109–129; BP diastolic 64–91; PULSE 83–106; RESP 16–22; TEMP 36.3–37.2; O2SAT 94–96
[2020-11-15 03:23] LABS: Absolute Lymphocyte Count 0.42 X10^3/uL (0.83-4.51); Absolute Neutrophil Count 4.7 X10^3/uL (2.0-7.7); Basophil# 0.02 X10^3/uL; Basophil% 0.3 % (0-1); Eosinophil# 0.06 X10^3/uL; Hematocrit 37.3 % (40-54); Hemoglobin 10.9 g/dL (13.0-16.5); Lymphocyte # 0.42 X10^3/ul (0.83-4.51); Mean Corp Hgb Conc 29.2 g/dL (32-36); Mean Corpuscular Hgb 21.3 pg (27.0-32.0); Mean Platelet Vol. 10.1 fl (6.2-12.0); Monocyte# 0.77 X10^3/uL; Monocyte% 12.9 % (0-10); NRBC Flagged by Analyzer 0 % (0-5); Neutrophil # 4.65 X10^3/uL (2.7-7.7); Neutrophil % 78.1 % (47-70); POSITIVE DIFFERENTIAL YES; POSITIVE MORPHOLOGY YES; Platelet Count 154 K/mm3 (150-450); RBC Distribution Width CV 21.2 % (11.6-14.6); RBC Distribution Width SD 54.6 fl (35.1-43.9); Red Blood Count 5.11 M/mm3 (4.6-6.2)
[2020-11-15 04:02] LABS: Differential Indicated SCAN CRITERIA MET
[2020-11-15 04:05] LABS: ALB/GLOB Ratio 0.7 RATIO (0.9-2.4); AST(SGOT) 23 U/L (15-37); Alanine Aminotransfer ALT/SGPT < 6 U/L (16-61); Albumin, Serum 2.4 g/dL (3.2-5.0); Alkaline Phosphatase 94 U/L (45-117); Anion Gap 5 (5-15); BUN 19 mg/dL (7-18); BUN/Creat Ratio 17.4 RATIO (10-20); Calcium,Total 7.5 mg/dL (8.5-10.1); Chloride 107 mmol/L (98-107); Creatinine, Serum 1.09 mg/dL (0.70-1.30); EST Glomerular Filtration Rate 70 mL/min (>60); Est Glom Filt Rate - Afr Amer 85 mL/min (>60); Estimated Creatinine Clearance 52.03 ml/min; Globulin 3.5 g/dL (2.2-4.2); Glucose 100 mg/dL (74-106); Protein, Total 5.9 g/dL (6.4-8.2); Sodium Level 134 mmol/L (136-145)
[2020-11-15 04:32] LABS: Differential Comment SCANNED
[2020-11-15 04:33] LABS: Anisocytosis 2+; Microcytosis 2+; Ovalocyte RARE
[2020-11-15] MEDS: CARBIDOPA/LEVODOPA CR 50/200 Tablet PO ×3 (06:40→21:31)
--- NOTE | 2020-11-15 08:35 | PCM.PN.GU ---
Subjective Subjective s/p placement of chavarria and laser bladder stones needs to go home with chavarria on discharge Objective Data Objective Data Vital Signs: Vital Signs Temp Pulse Resp BP Pulse Ox 97.9 F 88 18 129/79 H 94 11/15/20 03:00 11/15/20 04:00 11/15/20 03:00 11/15/20 03:00 11/15/20 03:00 Oxygen Flow Rate (L/min) 3 Oxygen Delivery Method Room Air Weight: 98.2 kg Body Mass Index (BMI) 34.1 Intake & Output: Intake and Output for Last 24 Hours 11/13/20 11/14/20 11/15/20 23:59 23:59 23:59 Intake Total 2176.25 / 2176.25 2100.0 / 2200.0 100 / 100 Output Total 650 / 875 585 / 785 450 / 450 Balance 1526.25 / 1301.25 1515.0 / 1415.0 -350 / -350 Lab / Micro Data Result Diagrams: 11/15/20 03:10 11/15/20 03:10 Labs: Laboratory Results - last 24 hr 11/15/20 11/15/20 03:10 03:10 WBC 6.0 RBC 5.11 Hgb 10.9 L Hct 37.3 L MCV 73.0 L MCH 21.3 L MCHC 29.2 L RDW Std Deviation 54.6 H RDW Coeff of Manuela 21.2 H Plt Count 154 MPV 10.1 Immature Gran % (Auto) 0.700 Neut % (Auto) 78.1 H Lymph % (Auto) 7.0 L [place] % (Auto) 12.9 H Eos % (Auto) 1.0 Baso % (Auto) 0.3 Absolute Neuts (auto) 4.7 Absolute Lymphs (auto) 0.42 L Nucleated RBC % 0 Differential Comment SCANNED Anisocytosis 2+ Microcytosis 2+ Ovalocytes RARE Sodium 134 L Potassium 4.0 Chloride 107 Carbon Dioxide 22.0 Anion Gap 5 BUN 19 H Creatinine 1.09 Estim Creat Clear Calc 52.03 Est GFR (MDRD) Af Amer 85 Est GFR (MDRD) Non-Af 70 BUN/Creatinine Ratio 17.4 Glucose 100 Calcium 7.5 L Total Bilirubin 0.40 AST 23 ALT < 6 L Alkaline Phosphatase 94 Total Protein 5.9 L Albumin 2.4 L Globulin 3.5 Albumin/Globulin Ratio 0.7 L Micro: Microbiology 11/12/20 17:07 Blood Culture (Wb) - Anticubital Left Blood Culture - Preliminary No growth in 48 hours. 11/12/20 17:07 Blood Culture (Wb) - Right Hand Blood Culture - Preliminary No growth in 48 hours. 11/12/20 20:55 Urine, Random Urine Culture - Preliminary Alpha hemolytic organism 11/12/20 17:25 Nasal Secretion SARS-CoV-2 Antigen (Rapid) - Final
[2020-11-15] MEDS: Ceftriaxone 1 GM/50 ML BAG IV ×2 (09:12→21:22)
[2020-11-15] MEDS: 0.9% Saline Lock 10 ML Syringe IV ×2 (09:12→21:22)
[2020-11-15] MEDS: dilTIAZem CD 120 MG Capsule PO (09:13)
[2020-11-15] MEDS: prednisoLONE eye drops (5 mL) 1 DROP OPTH.BTL 1 DRP LEFT EYE ×2 (09:14→21:29)
[2020-11-15] MEDS: Dorzolamide HCL/Timolol 10 ml Bottle 1 DRP OPHTHALMIC ×2 (09:14→21:29)
[2020-11-15] MEDS: Heparin Injection (Vial) 5,000 UNIT/ML VIAL 5000 UNIT SC ×2 (09:14→21:29)
[2020-11-15] MEDS: Atenolol 50 MG Tablet PO (09:15)
[2020-11-15] MEDS: Senna/Docusate Sodium 1 Tablet 2 TABLET PO (09:16)
--- NOTE | 2020-11-15 10:10 | PN.HOSP_ITS ---
Objective Data Objective Data Vital Signs: Vital Signs Temp Pulse Resp BP Pulse Ox 97.4 F L 90 20 H 128/91 H 96 11/15/20 09:00 11/15/20 09:00 11/15/20 09:00 11/15/20 09:00 11/15/20 09:00 Oxygen Flow Rate (L/min) 3 Oxygen Delivery Method Room Air Weight: 98.2 kg Body Mass Index (BMI) 34.1 Intake & Output: Intake and Output for Last 24 Hours 11/13/20 11/14/20 11/15/20 23:59 23:59 23:59 Intake Total 2176.25 / 2176.25 2100.0 / 2200.0 150 / 150 Output Total 650 / 875 585 / 785 450 / 450 Balance 1526.25 / 1301.25 1515.0 / 1415.0 -300 / -300 Lab / Micro Data Result Diagrams: 11/15/20 03:10 11/15/20 03:10 Labs: Laboratory Results - last 24 hr 11/15/20 11/15/20 03:10 03:10 WBC 6.0 RBC 5.11 Hgb 10.9 L Hct 37.3 L MCV 73.0 L MCH 21.3 L MCHC 29.2 L RDW Std Deviation 54.6 H RDW Coeff of Amnuela 21.2 H Plt Count 154 MPV 10.1 Immature Gran % (Auto) 0.700 Neut % (Auto) 78.1 H Lymph % (Auto) 7.0 L [place] % (Auto) 12.9 H Eos % (Auto) 1.0 Baso % (Auto) 0.3 Absolute Neuts (auto) 4.7 Absolute Lymphs (auto) 0.42 L Nucleated RBC % 0 Differential Comment SCANNED Anisocytosis 2+ Microcytosis 2+ Ovalocytes RARE Sodium 134 L Potassium 4.0 Chloride 107 Carbon Dioxide 22.0 Anion Gap 5 BUN 19 H Creatinine 1.09 Estim Creat Clear Calc 52.03 Est GFR (MDRD) Af Amer 85 Est GFR (MDRD) Non-Af 70 BUN/Creatinine Ratio 17.4 Glucose 100 Calcium 7.5 L Total Bilirubin 0.40 AST 23 ALT < 6 L Alkaline Phosphatase 94 Total Protein 5.9 L Albumin 2.4 L Globulin 3.5 Albumin/Globulin Ratio 0.7 L Micro: Microbiology 11/12/20 20:55 Urine, Random Urine Culture - Preliminary Alpha hemolytic organism 11/12/20 17:07 Blood Culture (Wb) - Anticubital Left Blood Culture - Preliminary No growth in 48 hours. 11/12/20 17:07 Blood Culture (Wb) - Right Hand Blood Culture - Preliminary No growth in 48 hours. 11/12/20 17:25 Nasal Secretion SARS-CoV-2 Antigen (Rapid) - Final Physical Exam Narrative General: Alert, Oriented x3, Cooperative, No apparent distress, Well developed HEENT: Atraumatic Oral: Moist Mucosa Neck: Supple Lungs: Clear to auscultation Cardiovascular: HS I+II, regular, no murmurs Abdomen: Bowel Sounds Present, Soft, Non Tender Extremities: No edema Skin: No rashes, No breakdown Neurological: Grossly intact Psych/Mental Status: Appropriate Assessment & Plan Assessment/Plan (1) Severe sepsis: (2) ALFRED (acute kidney injury): (3) Bladder outflow obstruction: (4) Obstructive uropathy: PLAN: 1. Severe sepsis secondary to UTI, improving Urine cultures are growing alpha-hemolytic organism Continue on IV ceftriaxone 2. A. fib with RVR secondary to #1, heart rate is controlled Continue on Cardizem and atenolol Not on anticoagulation 3. POD #1, s/p cystoscopy direct vision internal urethrotomy, cystoscopy and cystolitholapaxy for [address] of the abdomen and pelvis as well as renal ultrasound show stone near the bladder lumen near the left ureterovesicular junction. Urology following, status post Somers catheter; patient to have the Somers catheter for 6 weeks 4. ALFRED, prerenal secondary to #1, vs post-renal from obstructive uropathy, resolving Cr is 1.09 from 1.76, baseline creatinine was 1 Blood work in a.m. 5. Hypertension, continue with atenolol and cardizem, continue to monitor vitals closely. 6. Parkinson's disease, complicates care, continue on Carbidopa/levodopa and Mirapex 7. Debility, patient is currently a two-person assist, complicates care and discharge planning PT/OT/case management/social work to evaluate Visit Charges Inpatient E&M: 28535 Subs Hosp L2
[2020-11-15] MEDS: Furosemide 40 MG Tablet PO (12:02)
--- NOTE | 2020-11-15 15:05 | NURSING ---
report called to Yanna RANKIN RN at 1500
[2020-11-15] MEDS: Pramipexole Di-HCl 0.5 MG Tablet PO (21:29)
[2020-11-15] MEDS: Atenolol 25 MG Tablet PO (21:31)
[2020-11-16 03:01] VITALS: BP 117/83; PULSE 92; RESP 22; TEMP 36.6; O2SAT 94
[2020-11-16] MEDS: 0.9% Saline Lock 10 ML Syringe IV ×2 (06:20→11:10)
[2020-11-16] MEDS: CARBIDOPA/LEVODOPA CR 50/200 Tablet PO ×3 (06:20→21:50)
[2020-11-16 07:57] VITALS: BP 115/74; PULSE 92; RESP 18; TEMP 36.9; O2SAT 93
[2020-11-16 09:18] LABS: ALB/GLOB Ratio 0.7 RATIO (0.9-2.4); AST(SGOT) 20 U/L (15-37); Alanine Aminotransfer ALT/SGPT < 6 U/L (16-61); Albumin, Serum 2.5 g/dL (3.2-5.0); Alkaline Phosphatase 97 U/L (45-117); Anion Gap 5 (5-15); BUN 18 mg/dL (7-18); BUN/Creat Ratio 15.5 RATIO (10-20); Calcium,Total 7.9 mg/dL (8.5-10.1); Chloride 106 mmol/L (98-107); Creatinine, Serum 1.16 mg/dL (0.70-1.30); EST Glomerular Filtration Rate 65 mL/min (>60); Est Glom Filt Rate - Afr Amer 79 mL/min (>60); Estimated Creatinine Clearance 48.89 ml/min; Globulin 3.7 g/dL (2.2-4.2); Glucose 101 mg/dL (74-106); Potassium 3.6 mmol/L (3.5-5.1); Protein, Total 6.2 g/dL (6.4-8.2); Sodium Level 137 mmol/L (136-145)
[2020-11-16] MEDS: Heparin Injection (Vial) 5,000 UNIT/ML VIAL 5000 UNIT SC ×2 (11:09→21:50)
[2020-11-16] MEDS: dilTIAZem CD 120 MG Capsule PO (11:09)
[2020-11-16] MEDS: Atenolol 50 MG Tablet PO (11:09)
[2020-11-16] MEDS: prednisoLONE eye drops (5 mL) 1 DROP OPTH.BTL 1 DRP LEFT EYE ×2 (11:09→21:49)
[2020-11-16] MEDS: Dorzolamide HCL/Timolol 10 ml Bottle 1 DRP OPHTHALMIC ×2 (11:09→21:49)
[2020-11-16] MEDS: Ceftriaxone 1 GM/50 ML BAG IV (11:10)
[2020-11-16 11:14] VITALS: BP 124/74; PULSE 82; RESP 20; TEMP 36.5; O2SAT 95
--- NOTE | 2020-11-16 13:05 | PCM.PN.HOSP ---
Subjective Subjective Patient was seen and examined. His daughter was at the bedside. No new complaints. He is a 1 person assist to the bathroom and around his room. No hematuria seen. Objective Data Objective Data Vital Signs: Vital Signs Temp Pulse Resp BP Pulse Ox 97.7 F L 82 20 H 124/74 H 95 11/16/20 11:14 11/16/20 11:14 11/16/20 11:14 11/16/20 11:14 11/16/20 11:14 Oxygen Flow Rate (L/min) 3 Oxygen Delivery Method Room Air Weight: 98.2 kg Body Mass Index (BMI) 34.1 Intake & Output: Intake and Output for Last 24 Hours 11/14/20 11/15/20 11/16/20 23:59 23:59 23:59 Intake Total 2100.0 / 2200.0 517 / 767 600 / 600 Output Total 585 / 785 1750 / 2300 825 / 825 Balance 1515.0 / 1415.0 -1233 / -1533 -225 / -225 Lab / Micro Data Result Diagrams: 11/15/20 03:10 11/16/20 08:28 Labs: Laboratory Results - last 24 hr 11/16/20 08:28 Sodium 137 Potassium 3.6 Chloride 106 Carbon Dioxide 26.0 Anion Gap 5 BUN 18 Creatinine 1.16 Estim Creat Clear Calc 48.89 Est GFR (MDRD) Af Amer 79 Est GFR (MDRD) Non-Af 65 BUN/Creatinine Ratio 15.5 Glucose 101 Calcium 7.9 L Total Bilirubin 0.60 AST 20 ALT < 6 L Alkaline Phosphatase 97 Total Protein 6.2 L Albumin 2.5 L Globulin 3.7 Albumin/Globulin Ratio 0.7 L Micro: Microbiology 11/12/20 20:55 Urine, Random Urine Culture - Final Gemella haemolysans 11/12/20 17:07 Blood Culture (Wb) - Anticubital Left Blood Culture - Preliminary No growth in 48 hours. 11/12/20 17:07 Blood Culture (Wb) - Right Hand Blood Culture - Preliminary No growth in 48 hours. 11/12/20 17:25 Nasal Secretion SARS-CoV-2 Antigen (Rapid) - Final Physical Exam Narrative General: Alert, Oriented x3, Cooperative, No apparent distress, Well developed HEENT: Atraumatic Oral: Moist Mucosa Neck: Supple Lungs: Clear to auscultation Cardiovascular: HS I+II, regular, no murmurs Abdomen: Bowel Sounds Present, Soft, Non Tender Extremities: No edema Skin: No rashes, No breakdown Neurological: Grossly intact Psych/Mental Status: Appropriate Assessment & Plan Assessment/Plan (1) Severe sepsis: (2) ALFRED (acute kidney injury): (3) Bladder outflow obstruction: (4) Obstructive uropathy: PLAN: Summary: 75-year-old male with multiple comorbidities including prostate cancer status post radiation who presented with confusion and urinary retention. Patient was initially managed in ICU and transferred to the regular floor. 1. Acute metabolic encephalopathy, present on admission, resolved 2. Severe sepsis secondary to UTI, appears resolved Urine cultures are growing Gemella haemolysans organism We will discontinue IV ceftriaxone; will continue on p.o. cefdinir to complete 1 week treatment 3. A. fib with RVR secondary to #1, resolved, heart rate is controlled Continue on Cardizem and atenolol, not on anticoagulation 4. POD # 2, s/p cystoscopy direct vision internal urethrotomy, cystoscopy and cystolitholapaxy for [address] of the abdomen and pelvis as well as renal ultrasound show stone near the bladder lumen near the left ureterovesicular junction. Urology following, status post Somers catheter; patient to have the Somers catheter for 6 weeks 5. ALFRED, prerenal secondary to #1, vs post-renal from obstructive uropathy, resolving Cr is 1.16 from 1.76, baseline creatinine was 1 Blood work in a.m. 5. Hypertension, continue with atenolol and cardizem, continue to monitor vitals closely. 6. Parkinson's disease, complicates care, continue on Carbidopa/levodopa and Mirapex 7. Debility, patient is currently a one-person assist; complicates care and discharge planning PT/OT/case management/social work to evaluate Visit Charges Inpatient E&M: 43701 Subs Hosp L2
[2020-11-16 16:22] VITALS: BP 111/70; PULSE 89; RESP 18; TEMP 36.6; O2SAT 95
[2020-11-16 21:45] VITALS: BP 127/82; PULSE 88; RESP 18; TEMP 37.6; O2SAT 94
[2020-11-16] MEDS: Atenolol 25 MG Tablet PO (21:50)
[2020-11-16] MEDS: Pramipexole Di-HCl 0.5 MG Tablet PO (21:50)
[2020-11-17 03:23] VITALS: BP 130/83; PULSE 81; RESP 16; TEMP 36.7; O2SAT 94
[2020-11-17] MEDS: CARBIDOPA/LEVODOPA CR 50/200 Tablet PO ×2 (05:34→13:35)
[2020-11-17 06:08] LABS: Absolute Lymphocyte Count 0.96 X10^3/uL (0.83-4.51); Absolute Neutrophil Count 4.6 X10^3/uL (2.0-7.7); Basophil# 0.02 X10^3/uL; Basophil% 0.3 % (0-1); Eosinophil# 0.35 X10^3/uL; Eosinophils% 5.3 % (0-5); Hemoglobin 10.7 g/dL (13.0-16.5); Lymphocyte # 0.96 X10^3/ul (0.83-4.51); Lymphocyte % 14.6 % (19-41); Mean Corp Hgb Conc 29.7 g/dL (32-36); Mean Corpuscular Volume 70.6 fL (80-94); Mean Platelet Vol. 9.8 fl (6.2-12.0); Monocyte# 0.62 X10^3/uL; Monocyte% 9.4 % (0-10); NRBC Flagged by Analyzer 0 % (0-5); Neutrophil # 4.59 X10^3/uL (2.7-7.7); Neutrophil % 69.8 % (47-70); POSITIVE MORPHOLOGY YES; Platelet Count 183 K/mm3 (150-450); RBC Distribution Width CV 21.5 % (11.6-14.6); RBC Distribution Width SD 52.7 fl (35.1-43.9); White Blood Count 6.6 K/mm3 (4.4-11.0)
[2020-11-17 06:18] LABS: Differential Indicated SCAN CRITERIA MET
[2020-11-17 06:46] LABS: Differential Comment SCANNED
[2020-11-17 06:47] LABS: Atypical Lymphocyte RARE %
[2020-11-17 06:48] LABS: Anisocytosis 1+; Macrocytosis RARE; Microcytosis 1+; Ovalocyte RARE
[2020-11-17 07:05] LABS: ALB/GLOB Ratio 0.7 RATIO (0.9-2.4); AST(SGOT) 23 U/L (15-37); Alanine Aminotransfer ALT/SGPT 7 U/L (16-61); Albumin, Serum 2.5 g/dL (3.2-5.0); Alkaline Phosphatase 102 U/L (45-117); Anion Gap 7 (5-15); BUN 15 mg/dL (7-18); Chloride 105 mmol/L (98-107); Creatinine, Serum 1.07 mg/dL (0.70-1.30); EST Glomerular Filtration Rate 71 mL/min (>60); Est Glom Filt Rate - Afr Amer 86 mL/min (>60); Globulin 3.7 g/dL (2.2-4.2); Glucose 95 mg/dL (74-106); Potassium 3.8 mmol/L (3.5-5.1); Protein, Total 6.2 g/dL (6.4-8.2); Sodium Level 137 mmol/L (136-145)
[2020-11-17 07:56] VITALS: BP 140/82; PULSE 84; RESP 18; TEMP 37.2; O2SAT 95
[2020-11-17 08:00] VITALS: PULSE 100
[2020-11-17] MEDS: Atenolol 50 MG Tablet PO (08:13)
[2020-11-17] MEDS: Heparin Injection (Vial) 5,000 UNIT/ML VIAL 5000 UNIT SC (08:13)
[2020-11-17] MEDS: Cefdinir 300 MG Capsule PO (08:13)
[2020-11-17] MEDS: dilTIAZem CD 120 MG Capsule PO (08:14)
[2020-11-17] MEDS: prednisoLONE eye drops (5 mL) 1 DROP OPTH.BTL 1 DRP LEFT EYE (09:50)
[2020-11-17] MEDS: Dorzolamide HCL/Timolol 10 ml Bottle 1 DRP OPHTHALMIC (09:51)
[2020-11-17 13:36] VITALS: BP 113/68; PULSE 83; RESP 18; TEMP 37.2; O2SAT 95
--- NOTE | 2020-11-17 13:42 | CASEMGMT ---
RN CM in to discuss discharge planning with patient and . Patient was provided a list of HHC providers including quality and resource use data and consistent with the patient?s preferred geographic region, medical needs, and insurance network. reviewing HHC list and to provide choices. CM will continue to follow this patient and plan for a safe discharge.
--- NOTE | 2020-11-17 14:07 | DCINST_ITS ---
Discharge Instructions Diet Discharge Diet: 1999 Calorie Control Diet Activity Discharge Activity: May Not Drive Weight Bearing Status: Weight bearing as tolerated Dressing / Incision Call your doctor if you observe: Fever of 101 or Higher, Numbness or Tingling, Change in Color, Inability to urinate, Inability to have a bowel movement, Shortness of breath, Dizziness, Fainting spells, Swelling in the ankles, Chest pain, Prolonged hiccupping, Increased palpitations (irregular heartbeat), Calf discomfort and Uncontrolled pain Follow Up Care Test Results: Test results from this visit will be discussed in further detail at your follow-up appointment, if applicable. Discharge Plan Admission Admit Date/Time: 11/12/20 22:59 Primary Reason for Your Visit: UTI/complicated cystitis with obstructive left UVJ stone Attending Provider: Tyson Plata Primary Care Provider: Masoud Rosa Consulting Providers: Rubin Salomon ; Robert Prather Instructions Patient Instructions: ED Somers Catheter, Care, ED Bladder Infection, Male (Adult) Additional Instructions / Restrictions: Patient is discharged with Somers catheter. Advised to follow-up with Dr. Prather in 1 week. Discharge Orders/Prescriptions Prescriptions: New cefdinir 300 mg Capsule 300 mg PO Q12 Qty: 7 RF: 0 sennosides-docusate sodium [Stool Softener-Stimulant Laxat] 8.6-50 mg Tablet 2 tab PO BID PRN PRN (Reason: Constipation) Qty: 0 RF: 0 tamsulosin [Flomax] 0.4 mg capsule 0.4 mg PO DAILY Qty: 30 RF: 0 Continued atenolol 50 mg tablet 50 mg PO .COMPLEX RF: 0 pramipexole 0.5 mg tablet 0.5 mg PO QHS RF: 0 potassium chloride 20 mEq tablet extended release 20 meq PO QDAY Qty: 90 RF: 3 carbidopa-levodopa 50-200 mg tablet extended release 1 tablet PO TID RF: 0 dorzolamide-timolol 22.3-6.8 mg/mL drops 1 drp OPHTHALMIC BID RF: 0 calcium carbonate-vitamin D3 [Calcium 600 with Vitamin D3] 600 mg(1,500mg) - 500 unit capsule 1 cap PO DAILY RF: 0 furosemide 40 MG tablet 40 mg PO DAILY RF: 0 oxybutynin chloride 10 MG tablet extended release 24hr 10 mg PO DAILY RF: 0 atenolol 50 mg tablet 25 mg PO QHS RF: 0 prednisolone acetate 1 % drops,suspension 1 drp LEFT EYE BID RF: 0 diltiazem HCl 120 mg capsule,extended release 24 hr 120 mg PO DAILY Qty: 90 RF: 3 Referrals / Follow Up: Masoud Rosa MD [Primary Care Provider] - Within 2 Weeks (In 2 weeks.) Robert Prather MD [STAFF PHYSICIAN] - In 1 Week (Discharged with Somers catheter. UTI with left UVJ stone) Disposition Disposition (needs filled in before D/C Order can be placed): Home Health Service
--- NOTE | 2020-11-17 14:15 | CASEMGMT ---
Addendum entered by Joaquina Quiroz 11/17/20 15:02: LUIS ZAYAS received call back from [facility] and they are able to accept the patient with planned start of care for 11/19/20. LUIS ZAYAS updated the patient and . Original Note: LUIS ZAYAS in to discuss [facility] choices with . prefers [facility]. LUIS ZAYAS made referral and awaiting acceptance from [facility].
--- NOTE | 2020-11-17 15:09 | DS.PCM_ITS ---
Providers Date of Admission: 11/12/20 Primary Care Physician: Dr. Masoud Rosa MD Consultations 11/12/20 23:39 Consult: Pin Feather Machine Operator / Pulmonary Medicine Routine Consulting Provider: Rubin Salomon Reason for Consult: Severe sepsis EMERGENT Consult: No Notified: Yes Date Notified:: 11/12/20 Time Notified: 22:13 Method of Notification: Text 11/12/20 23:59 Consult: Urology Routine Consulting Provider: Robert Prather Reason for Consult: Bladder outlet obstruction EMERGENT Consult: No Notified: Yes Date Notified:: 11/12/20 Time Notified: 23:59 Method of Notification: Provider Initiated Reason For Visit: SEVERE SEPSIS Diagnosis Discharge Diagnosis (1) Severe sepsis: Status: Acute Code(s): A41.9 - Sepsis, unspecified organism; R65.20 - Severe sepsis without septic shock (2) ALFRED (acute kidney injury): Status: Acute Code(s): N17.9 - Acute kidney failure, unspecified (3) Bladder outflow obstruction: Status: Acute Code(s): N32.0 - Bladder-neck obstruction (4) Obstructive uropathy: Status: Acute Code(s): N13.9 - Obstructive and reflux uropathy, unspecified Medications at Discharge Home Medications diltiazem HCl 120 mg capsule,24 hr,extended release 120 mg PO DAILY #90 cap 02/13/20 potassium chloride 20 mEq tablet,extended release 20 meq PO QDAY #90 tab 03/27/20 pramipexole 0.5 mg tablet 0.5 mg PO QHS 03/27/20 furosemide 40 mg PO DAILY 05/10/20 oxybutynin chloride 10 mg PO DAILY 05/10/20 atenolol 50 mg tablet 50 mg PO .COMPLEX tablet 09/25/20 calcium carbonate 600 mg (1,500 mg)-vitamin D3 500 unit capsule 1 cap PO DAILY 09/25/20 carbidopa ER 50 mg-levodopa 200 mg tablet,extended release 1 tablet PO TID tablet 09/25/20 dorzolamide 22.3 mg-timolol 6.8 mg/mL eye drops 1 drp OPHTHALMIC BID ml 09/25/20 atenolol 25 mg PO QHS 11/12/20 prednisolone acetate 1 drp LEFT EYE BID 11/13/20 cefdinir 300 mg PO Q12 #7 cap 11/17/20 sennosides-docusate sodium [Stool Softener-Stimulant Laxat] 2 tab PO BID PRN PRN #0 tab 11/17/20 tamsulosin [Flomax] 0.4 mg PO DAILY #30 cap 11/17/20 Hospital Course Summary of Care Provided Hospital Course: This is 75-year-old male with multiple comorbidities including prostate cancer status post radiation who was with confusion and urinary retenti on.? Patient was initially managed in ICU and transferred to the regular floor. 1.? Acute metabolic encephalopathy, present on admission, resolved 2. 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 Urine cultures are growing Gemella haemolysans organism, antibiotic sensitivity not done because not in pathology range but clearly patient was symptomatic with severe sepsis, due to obstructive infected stone Initially treated with IV ceftriaxone; then changed to cefdinir to complete a total of 7 days of antibiotic. 3. A. fib with RVR secondary to #1, resolved, heart rate is controlled Continue on Cardizem and atenolol, not on anticoagulation 4. Urethral stricture severe with bladder stone, 2 cm and left UVJ stone: Patient had cystoscopy, internal urethrotomy, cystoscopy and cystolitholapaxy for bladder stone by urology Dr. Prather. CT of the abdomen and pelvis as well as renal ultrasound show stone near the bladder lumen near the left ureterovesicular junction. Urology following, status post Somers catheter;?patient to have the Somers eriberto ter for 6 weeks. 5. ALFRED, prerenal/renal ATN from severe sepsis and post-renal from obstructive uropathy, resolved: Cr is 1.07 from 1.76, baseline creatinine was 1 5. Hypertension, continue with atenolol and cardizem. Heart rate and blood pressure are control 6. Parkinson's disease, complicates care, continue on Carbidopa/levodopa and Mirapex 7.? Debility, patient is currently a one-person assist; complicates care and discharge planning Patient evaluated PT OT and case packer and sealer. Patient discharged home with Somers catheter for 6 weeks along with home health care. Advised catheter care to the patient. Discharge medication reconciliation done. Discharge follow-up instructions completed. Discharge process discussed with the patient and all questions were answered to patient's satisfaction. Total time spent, exact 35 minutes on discharge meds reconciliation, examination, coordination of care with nurses and ancillary staff, review of imaging and blood test and discussion with the patient on follow-up instructions Physical Exam Narrative Patient urine is clear. Has Somers catheter. Denies any new complaint. Heart rate and blood pressure controlled. Physical exam General: Alert, Oriented x3, Cooperative HEENT: Atraumatic, PERRLA, EOMI, Normocephalic. Has chronic blurry vision probably from cataract/glaucoma Oral: No Gingival or Mucosal Lesions/ Ulcerations Neck: Supple, No JVD, Negative Carotid Bruits Lungs: Air entry diminished in bilateral lung bases. No crepitation/rhonchi Cardiovascular: Regular rate, Regular Rhythm, Normal S1, Normal S2, No murmurs Abdomen: Bowel Sounds Present, Soft, Non Tender, Non-Distended : Somers catheter no hematuria: Clear urine. No renal angle tenderness. No suprapubic tenderness. Extremities: No edema, Capillary Refill Less than 3 Seconds Skin: No rashes, No breakdown Musculoskeletal: No Tenderness to Palpation of Joints or Extremities Neurological: Cranial nerves II-XII grossly intact, Deep Tendon Reflexes 2+/4 and Symmetrical, Neuro grossly intact Psych/Mental Status: Normal Affect, Appropriate. ABG / Lab / Microbiology Data Result Diagrams: 11/17/20 05:44 11/17/20 05:44 Laboratory: Laboratory Results - last 24 hr 11/17/20 11/17/20 05:44 05:44 WBC 6.6 RBC 5.10 Hgb 10.7 L Hct 36.0 L MCV 70.6 L MCH 21.0 L MCHC 29.7 L RDW Std Deviation 52.7 H RDW Coeff of Manuela 21.5 H Plt Count 183 MPV 9.8 Immature Gran % (Auto) 0.600 Neut % (Auto) 69.8 Lymph % (Auto) 14.6 L [place] % (Auto) 9.4 Eos % (Auto) 5.3 H Baso % (Auto) 0.3 Absolute Neuts (auto) 4.6 Absolute Lymphs (auto) 0.96 Nucleated RBC % 0 Differential Comment SCANNED Atypical Lymphocytes RARE Anisocytosis 1+ Microcytosis 1+ Macrocytosis RARE Ovalocytes RARE Sodium 137 Potassium 3.8 Chloride 105 Carbon Dioxide 25.0 Anion Gap 7 BUN 15 Creatinine 1.07 Estim Creat Clear Calc 53.00 Est GFR (MDRD) Af Amer 86 Est GFR (MDRD) Non-Af 71 BUN/Creatinine Ratio 14.0 Glucose 95 Calcium 8.0 L Total Bilirubin 0.50 AST 23 ALT 7 L Alkaline Phosphatase 102 Total Protein 6.2 L Albumin 2.5 L Globulin 3.7 Albumin/Globulin Ratio 0.7 L Microbiology: Microbiology 11/12/20 20:55 Urine, Random Urine Culture - Final Gemella haemolysans 11/12/20 17:07 Blood Culture (Wb) - Anticubital Left Blood Culture - Preliminary No growth in 48 hours. 11/12/20 17:07 Blood Culture (Wb) - Right Hand Blood Culture - Preliminary No growth in 48 hours. 11/12/20 17:25 Nasal Secretion SARS-CoV-2 Antigen (Rapid) - Final D/C Instructions Discharge Diet: 2000 Calorie Control Diet Discharge Activity: May Not Drive Weight Bearing Status: Weight bearing as tolerated Call your doctor if you observe: Fever of 101 or Higher, Numbness or Tingling, Change in Color, Inability to urinate, Inability to have a bowel movement, Shortness of breath, Dizziness, Fainting spells, Swelling in the ankles, Chest pain, Prolonged hiccupping, Increased palpitations (irregular heartbeat), Calf discomfort and Uncontrolled pain Meaningful Use Info Meaningful Use Diagnoses (Choose all that apply): None applicable Discharge Plan Admission Admit Date/Time: 11/12/20 22:59 Primary Reason for Your Visit: UTI/complicated cystitis with obstructive left UVJ stone Attending Provider: Tyson Plata Primary Care Provider: Masoud Rosa Consulting Providers: Rubin Salomon ; Robert Prather Instructions Patient Instructions: ED Somers Catheter, Care, ED Bladder Infection, Male (Adult) Additional Instructions / Restrictions: Patient is discharged with Somers catheter. Advised to follow-up with Dr. Prather in 1 week. Discharge Orders/Prescriptions Prescriptions: New cefdinir 300 mg Capsule 300 mg PO Q12 Qty: 7 RF: 0 sennosides-docusate sodium [Stool Softener-Stimulant Laxat] 8.6-50 mg Tablet 2 tab PO BID PRN PRN (Reason: Constipation) Qty: 0 RF: 0 tamsulosin [Flomax] 0.4 mg capsule 0.4 mg PO DAILY Qty: 30 RF: 0 Continued atenolol 50 mg tablet 50 mg PO .COMPLEX RF: 0 pramipexole 0.5 mg tablet 0.5 mg PO QHS RF: 0 potassium chloride 20 mEq tablet extended release 20 meq PO QDAY Qty: 90 RF: 3 carbidopa-levodopa 50-200 mg tablet extended release 1 tablet PO TID RF: 0 dorzolamide-timolol 22.3-6.8 mg/mL drops 1 drp OPHTHALMIC BID RF: 0 calcium carbonate-vitamin D3 [Calcium 600 with Vitamin D3] 600 mg(1,500mg) - 500 unit capsule 1 cap PO DAILY RF: 0 furosemide 40 MG tablet 40 mg PO DAILY RF: 0 oxybutynin chloride 10 MG tablet extended release 24hr 10 mg PO DAILY RF: 0 atenolol 50 mg tablet 25 mg PO QHS RF: 0 prednisolone acetate 1 % drops,suspension 1 drp LEFT EYE BID RF: 0 diltiazem HCl 120 mg capsule,extended release 24 hr 120 mg PO DAILY Qty: 90 RF: 3 Referrals / Follow Up: Masoud Rosa MD [Primary Care Provider] - 12/02/20 1:00 pm (In 2 weeks.) Robert Prather MD [STAFF PHYSICIAN] - 11/24/20 9:30 am (Discharged with Somers catheter. UTI with left UVJ stone) Disposition Disposition (needs filled in before D/C Order can be placed): Home Health Service Visit Charges Inpatient E&M: 99709 Disch Hosp
--- NOTE | 2020-11-18 15:42 | CASEMGMT ---
LUIS ZAYAS Discharge Follow-up Phone Call: JUAN C: Angelika Strata: 3 Call Date: 11/18/20 Discharge Date: 11/17/20 Time of Call: [id number] Duration: 3 min Admitting Diagnosis: Severe sepsis LUIS ZAYAS completed follow-up phone call after recent hospitalization. Patient states he is doing well, not having any issues with chavarria catheter. Patient states he was able to fill prescriptions without any issues. Patient has follow-up appts scheduled. Patient to start care with [facility] tomorrow. Patient had no further questions or concerns at this time.
== END 2020-11-17 16:01 | disposition home health service (06) | DRG 871 ==
LOC: ED 21:28 → ICU 23:46 → MS3 11-16 00:01
PROVIDERS: Internal Medicine; Urology; Admitting Provider Hospitalist; Emergency Provider Student in an Organized Health Care Education/Training Program; PCP Family Medicine; Visit Provider Internal Medicine
PROC: 0TJ98ZZ Inspection of Ureter, Via Natural or Artificial Opening Endoscopic (ICD-10-PCS; CPT 52352; principal; 2020-11-14 13:50)
DX: A41.9 Sepsis, unspecified organism (principal); G93.41 Metabolic encephalopathy; N17.0 Acute kidney failure with tubular necrosis; N39.0 Urinary tract infection, site not specified; I48.19 Other persistent atrial fibrillation; I42.9 Cardiomyopathy, unspecified; N13.8 Other obstructive and reflux uropathy; N20.1 Calculus of ureter; R65.20 Severe sepsis without septic shock; N40.1 Benign prostatic hyperplasia with lower urinary tract symptoms; N32.0 Bladder-neck obstruction; N35.919 Unspecified urethral stricture, male, unspecified site; N21.0 Calculus in bladder; I95.9 Hypotension, unspecified; Z20.822 Contact with and (suspected) exposure to COVID-19; G20 Parkinson's disease; I27.29 Other secondary pulmonary hypertension; I10 Essential (primary) hypertension; R53.81 Other malaise; R29.6 Repeated falls; E66.9 Obesity, unspecified; Z68.34 Body mass index [BMI] 34.0-34.9, adult; Z85.46 Personal history of malignant neoplasm of prostate; Z92.3 Personal history of irradiation
CPT/HCPCS: 36415; 70450; 71045; 74176; 76000; 76770; 80048; 80053; 81001; 83605; 84484; 85025; 85610; 85730; 87040; 87077; 87086; 87088; 87426; 93005; 97110; 97116; 97162; 97166; 97530; 97535; 97802; 99285; J7030; J7040; J7050; A4216; C1769; J2405

== ENCOUNTER 2020-11-21 23:30 | Outpatient (RCR) | payer MEDICARE, SELFPAY ==
[2020-11-14 11:46] VITALS: BMI 34.1
== END 2020-11-21 23:31 | disposition home or self-care (01) ==
LOC: HHLAB 23:30
PROVIDERS: PCP Family Medicine; Referring Provider Urology; Visit Provider Urology
DX: A41.89 Other specified sepsis (principal); N13.6 Pyonephrosis; N30.40 Irradiation cystitis without hematuria
CPT/HCPCS: 87086

== ENCOUNTER → 2020-12-15 14:22 | Outpatient (CLI) | payer MEDICARE, SELFPAY ==
[2020-11-14 11:46] VITALS: BMI 34.1
[2020-12-15 15:55] LABS: PSA,Total- Diagnostic 0.04 ng/mL (0.0-4.0)
== END ==
PROVIDERS: PCP Family Medicine; Referring Provider Urology; Visit Provider Urology
DX: C61 Malignant neoplasm of prostate (principal)
CPT/HCPCS: 36415; 84153

== ENCOUNTER → 2021-03-20 12:31 | Outpatient (CLI) | payer MEDICARE, SELFPAY ==
[2021-03-20 15:18] LABS: PSA,Total- Diagnostic 0.05 ng/mL (0.0-4.0)
== END ==
PROVIDERS: PCP Family Medicine; Referring Provider Urology; Visit Provider Urology
DX: C61 Malignant neoplasm of prostate (principal)
CPT/HCPCS: 36415; 84153

== ENCOUNTER 2021-04-14 13:00 | Outpatient (RCR) | payer MEDICARE, SELFPAY ==
[2020-11-14 11:46] VITALS: BMI 34.1
--- NOTE | 2021-02-10 12:54 | HP.PTEVAL_ITS ---
Patient's Visit Information KAREN MOYA is a 75 year old M referred to Physical Therapy by Dr. Karen Boss MD with a diagnosis of PD. Date of Evaluation: 02/09/21 Physical Therapist: LISS Almendarez - Visit Plan Frequency: 2x /Week Duration: 2 Months Plan: 2X/ week for 8 weeks for gait training, dual tasking, functional strength and transfers with HEP - Subjective Pt was diagnosed 2 years ago.... He takes meds 3 times per day. By evening he does not feel that he recovers and he starts dragging his feet again. He has had some falls but has fallen in the last 6 months. 2 years ago he started to use his walker and then stopped the cane and now back to the walker for 3 months. He hears his feet shuffle... His son tells him that his posture is bad. He does not have an exercise bike. He does some exercises at the kitchen sink. He is a task getting in about of a vehichicle. Sit to stand....has to use his arms. He struggles with getting off the floor. He lives with his . 1 story home. Just stairs to the basement which he occ uses. He does not drive. 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 He feels that PD has affected his L... mostly just leg - Objective gait: walks with a front wheeled walker with decreased L LE swing... does not pass R stance foot. Pt does not walk with a heel to toe gait pattern. He walks with his eyes on the ground and gets slower the longer that he walks. LE MMT: B hipflex, B knee ext, B knee flex, B hip abd 4-/5, pt struggles with heel and toe raises. Sit to stand: pt needs to use B UE's to get up out of a chair. Pt struggles with sitting opp arm and leg. I asked pt to show me how he gets into bed and he had to think about it. Pt rolled really close to the edge of the mat when going supine to L S/L... he did not shift his body to the right before rolling.... Pt takes very short, discont steps when turning 180 degrees. Standing with EC pt had increase sway and therapist had to catch the pt. Tinetti 10 - Balance/Special Test Scores Tinetti Balance Score: 7 Tinetti Gait Score: 3 Tinetti Balance & Gait Score: 10 - Goals Goal 1:: I HEP Goal Time Frame: 6-8 Weeks Goal 2:: Be able to complete X 20 in a row opp arm and leg in either sitting or standing Goal Time Frame: 6-8 Weeks Goal 3:: Increase Tinetti by 5 points (10 at eval) Goal Time Frame: 6-8 Weeks Goal 4:: Be able to walk with front wheeled walker with upright posture and heel to toe gait pattern with head looking straight ahead with continous speed for 200 feet without verbal cuing Goal Time Frame: 6-8 Weeks Goal 5:: Be able to stand with feet together without increase sway turning head horiontal X 1 minute without increased sway - Rehabilitation Potential Rehabilitation Potential: Good - Anticipated Interventions Patient/Client Instruction: Educate patient on: Condition, Plan of Care For the Purpose of:: To improve muscle performance and motor function, To improve ability to perform ADL's, To increase tolerance to activity/c ondition/position, To improve gait and locomotor functions, To increase flexibility/ROM, To improve balance, To improve safety with gait, To assume or resume ADL's, To improve safety Therapeutic Exercise to Include: Strength training, Balance training, Coordination, Body mechanics, Postural training, Flexibilty training, Gait and locomotor training, Neuromotor development, Passive ROM, Active ROM, Dynamic Lumbar Stabilization, Scapular Strength/Stabilization For the Purpose of:: To increase ROM, To improve nutrient delivery to tissue, To improve muscle performance and motor function, To improve ability to perform ADL's, To increase tolerance to activity/condition/position, To improve performance and independence with ADL's, To improve ability of physical actions for home/community/work/leisure, To improve gait and locomotor functions, To decrease soft tissue restriction, To increase flexibility/ROM, To improve endurance, To improve balance, To improve safety with gait, To improve safety, To foster healthy habits, To facilitate caregiver knowledge, To improve self management, To improve tolerance to ADL's Functional Training to Include: Gait training For the Purpose of:: To improve gait and locomotor functions, To improve balance, To improve safety with gait Thank you for the opportunity to evaluate your patient. For Medicare and Medicare HMO plans, please review the plan of care and approve it. It will need to be FAXED BACK to us at [phone] for Medicare purposes. For Medicare only, by signing this I certify the plan of care. Please let me know if there are questions or concerns regarding this plan of care. Physician Signature: Date:
--- NOTE | 2021-04-14 13:46 | HP.PTDCSUM ---
It has been my pleasure to treat KAREN MOYA referred by Dr. Karen Boss MD, with the diagnosis of PD for a total of 10 visit(s). Discharge Date: 04/14/21 Please see the following information for a summary of their discharge status. Subjective: Pt reports that he is still working on seated opp leg exercise at home. he feels that he is ready to continue on his own and says turn me loose. % Improvement: 70 Objective/Function: Tinetti 15. Up and down steps recip with 2 hand rails but slower. L leg does not pass R leg. Pt is able to stand and horizontal head turn without LOB Goal 1:: I HEP Goal Progress: Goal Met Goal 2:: Be able to complete X 20 in a row opp arm and leg in either sitting or standing Goal Progress: Goal Met Goal 3:: Increase Tinetti by 5 points (10 at eval) Goal Progress: Goal Met Goal 4:: Be able to walk with front wheeled walker with upright posture and heel to toe gait pattern with head looking straight ahead with continous speed for 200 feet without verbal cuing Goal Progress: Goal Met Goal 5:: Be able to stand with feet together without increase sway turning head horiontal X 1 minute without increased sway Goal Progress: Goal Met Plan: DC to HEP Discharge Comments: DC PT to HEP If there are questions or concerns regarding this patient's physical therapy, please feel free to call me at [phone]. Thank you for the referral of this patient. Sincerely, Anisha Montanez, MPT Balance/Gait/Functional tests - Balance/Special Test Scores Tinetti Balance Score: 12 Tinetti Gait Score: 5 Tinetti Balance & Gait Score: 17 Lower Extremity Functional Score: 47
== END 2021-04-14 19:00 | disposition home or self-care (01) ==
LOC: PT 13:00
PROVIDERS: PCP Family Medicine; Referring Provider Psychiatry & Neurology Neurology; Visit Provider Psychiatry & Neurology Neurology
DX: G20 Parkinson's disease (principal)
CPT/HCPCS: 97110; 97161; 97530

== ENCOUNTER → 2021-05-05 09:45 | Outpatient (CLI) | payer MEDICARE, SELFPAY ==
--- NOTE | 2021-05-05 09:50 | ECHOCS_ITS ---
Reason For Study: Afib/Flutter Procedure This was a 2D Doppler, Color Flow transthoracic echocardiogram. The study was technically difficult. Contrast injection was performed. Exam performed portable in patient room. Left Ventricle Normal LV size. Left ventricular systolic function is normal. The estimated ejection fraction is 65 %. Unable to assess diastolic dysfunction. No regional wall motion abnormalities noted. Right Ventricle Mildly dilated right ventricle. Mild global right ventricular systolic dysfunction. Atria The left atrium is moderately enlarged. The right atrium is mildly enlarged. No doppler evidence for ASD. Mitral Valve There is no mitral annular calcification. Normal mitral valve. Mild-Moderate (1-2+) eccentric mitral valve insufficiency. Tricuspid Valve Normal tricuspid valve. Moderate (2+) tricuspid valve insufficiency. Right ventricular systolic pressure estimated to be 43 mmHg. Aortic Valve Trisinus/trileaflet aortic valve. Mild diffuse aortic valve thickening. Trivial aortic valve insufficiency. Pulmonic Valve The pulmonic valve is not well visualized. Trivial pulmonic valve insufficiency. Great Vessels The aortic root is not well visualized. Pericardium/Pleural No pericardial effusion. Medication 22 gauge I.V. with prn adaptor inserted into left arm. Diluted definity 5ml given slow IV push to enhance endocardial definition. MMode/2D Measurements & Calculations LVIDd: 4.9 cm IVSd: 1.0 cm LA dimension: 5.0 cm LVIDs: 3.6 cm LVPWd: 0.86 cm FS: 27.4 % LAV(MOD-sp4): 94.4 ml LA A4 area: 27.9 cm2 RA A4 area: 20.3 cm2 Doppler Measurements & Calculations MV E max amando: 70.7 cm/sec Ao V2 max: 77.1 cm/sec AI max amando: 408.4 cm/sec Ao max P.4 mmHg AI max P.9 mmHg AI dec slope: 153.9 cm/sec2 AI P1/2t: 777.1 msec LV V1 max: 59.4 cm/sec MR max amando: 524.1 cm/sec PA V2 max: 56.9 cm/sec LV V1 max P.4 mmHg MR max P.9 mmHg MR mean amando: 393.7 cm/sec MR mean P.2 mmHg MR VTI: 182.3 cm PI dec slope: 155.9 cm/sec2 TR max amando: 316.2 cm/sec TR max P.0 mmHg ECHO/Echo Complete W/ Contrast Interpretation Summary The study was technically difficult. Contrast injection was performed. Left ventricular systolic function is normal. The estimated ejection fraction is 65 %. Mildly dilated right ventricle. Mild global right ventricular systolic dysfunction. The left atrium is moderately enlarged. The right atrium is mildly enlarged. Mild-Moderate (1-2+) eccentric mitral valve insufficiency. Moderate (2+) tricuspid valve insufficiency. Mild diffuse aortic valve thickening. Trivial aortic valve insufficiency. Trivial pulmonic valve insufficiency. Right ventricular systolic pressure estimated to be 43 mmHg. Unable to assess diastolic dysfunction. Ordering Physician: Naldo Oro Referring Physician: Masoud Rosa Performed By: Mac Gould RCS
== END ==
PROVIDERS: PCP Family Medicine; Referring Provider Internal Medicine Cardiovascular Disease; Visit Provider Internal Medicine Cardiovascular Disease
DX: I27.29 Other secondary pulmonary hypertension (principal); I48.91 Unspecified atrial fibrillation
CPT/HCPCS: 93306; Q9957; A4216; C8929; J3490

== ENCOUNTER → 2021-06-02 14:11 | Outpatient (CLI) | payer MEDICARE, SELFPAY ==
[2021-06-02 16:02] LABS: PSA,Total- Diagnostic 0.06 ng/mL (0.0-4.0)
== END ==
PROVIDERS: PCP Family Medicine; Visit Provider Urology
DX: C61 Malignant neoplasm of prostate (principal)
CPT/HCPCS: 36415; 84153

== ENCOUNTER 2021-09-10 09:41 | Inpatient (IN) | payer MEDICARE, SELFPAY ==
[2021-09-10] VITALS (17 sets, daily range): BP systolic 106–162; BP diastolic 60–107; PULSE 60–109; RESP 16–24; TEMP 36.4–38.1; O2SAT 91–97; BMI 36.0; BMI 34.7
--- NOTE | 2021-09-10 10:19 | RAD_ITS ---
STUDY: X-RAY CHEST REASON FOR EXAM: Male, 76 years old. Dyspnea w/ exertion TECHNIQUE: Single AP portable view of the chest. COMPARISON: Comparison is made with prior study dated 11/12/2020. FINDINGS: EKG electrodes are seen. Mild increased markings at the lung bases suggest some bibasilar atelectasis. Blunting of the left costophrenic angle. There is moderate cardiac enlargement. Normal mediastinum and sobeida. Normal visualized pulmonary arteries. There is atherosclerotic calcification of the aortic arch with tortuosity. There are diffuse degenerative changes of the visualized thoracic spine. Normal visualized ribs, clavicles, and shoulders. There is no demonstrated abnormality of the visualized soft tissue structures of the upper abdomen. RAD/Chest 1 View (Portable) IMPRESSION: Cardiomegaly. Bibasilar atelectasis and/or early infiltrates. Electronically Signed: Fausto Gross MD at 11:08 EST ,
--- NOTE | 2021-09-10 10:19 | EKG12_ITS ---
Test Reason : WOUND Blood Pressure : / mmHG Vent. Rate : 103 BPM Atrial Rate : 170 BPM P-R Int : 000 ms QRS Dur : 084 ms QT Int : 330 ms P-R-T Axes : 000 003 -02 degrees QTc Int : 432 ms Atrial fibrillation Abnormal ECG Confirmed by ETHAN MONTALVO MD ([id number]), editor department TAYLOR RENO ([id number]) on 09/11/2021 8:38:34 AM Referred By: BB Confirmed By:ETHAN MONTALVO MD
--- NOTE | 2021-09-10 10:19 | RAD_ITS ---
STUDY: X-RAY - LEFT TIBIA AND FIBULA REASON FOR EXAM: Male, 76 years old. pain/injury TECHNIQUE: 2 view(s) of the tibia and fibula were obtained. COMPARISON: None. FINDINGS: Normal visualized tibia. Normal visualized fibula. The soft tissue structures are unremarkable. RAD/Tibia & Fibula 2 Views IMPRESSION: Normal x-ray examination of the tibia and fibula. Electronically Signed: Jayme Espinoza MD at 11:11 EST ,
--- NOTE | 2021-09-10 10:21 | EX.ED.DYSGE1 ---
HPI History of Present Illness Chief Complaint: Wound Informant: patient and spouse/S.O. Onset/Context/Timing Onset: Weeks (2.5) Context: Sudden Onset (gradually worsening) Timing: Continuous Quality: sore/achy Location: left lower leg Current Severity: Mild Maximum Severity: Moderate Worsened by: weight bearing, palpation Relieved by: resting Associated Symptoms Associated Symptoms: weakness, ZIEGLER Narrative Narrative: Patient states he was moving a tractor tire several weeks ago when it got out of balance, knocked him over backwards, and then fell down onto his left lower leg causing a wound/injury. He saw his PCP, because the wound started to look red and was put on cephalexin which he took for 10 days. He had continuous mild worsening, with regards to pain, redness, swelling. He had an ultrasound to rule out DVT was negative. He finished the cephalexin that was better so he was just started on Bactrim. He has only had 1 pill of that. For the last 2 or 3 days he has been feeling weak, malaised, and having dyspnea with exertion. No chest discomfort or palpitations. He does have a history of A. fib that he usually does not feel. He is not anticoagulated because he has Parkinson's and has fallen in the past. Today he was unable to get up because of feeling weak more so than pain in his left leg. A family member gage a line around the redness about 2 days ago, and the patient and agree that it does not look like the redness is gone outside of the line, however things really do not look like they are getting better on his leg. He denies any known fevers although he presents with 1 in triage here. He denies any cough recently. [facility] Medical History (Updated 09/10/21 @ 12:[address] 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 Other secondary pulmonary hypertension Parkinsons disease Persistent atrial fibrillation Prostate cancer Home Medications calcium carbonate 600 mg-vitamin D3 12.5 mcg (500 unit) capsule 1 cap PO DAILY 09/25/20 [History Last Taken Unknown] carbidopa ER 50 mg-levodopa 200 mg tablet,extended release 1 tablet PO TID tablet 09/25/20 [History Last Taken Unknown] dorzolamide 22.3 mg-timolol 6.8 mg/mL eye drops 1 drp OPHTHALMIC BID ml 09/25/20 [History Last Taken Unknown] prednisolone acetate 1 drp LEFT EYE BID 11/13/20 [History Last Taken Unknown] sennosides-docusate sodium [Stool Softener-Stimulant Laxat] 2 tab PO BID PRN PRN #0 tab 11/17/20 [Rx Last Taken Unknown] tamsulosin [Flomax] 0.4 mg PO DAILY #30 cap 11/17/20 [Rx Last Taken Unknown] diltiazem HCl 120 mg capsule,24 hr,extended release 120 mg PO DAILY #90 cap 02/11/21 [Rx Last Taken Unknown] potassium chloride 20 mEq tablet,extended release 20 meq PO QDAY #90 tab 03/10/21 [Rx Last Taken Unknown] atenolol 50 mg tablet 50 mg PO DAILY tab 04/28/21 [History Last Taken Unknown] leuprolide 1 mg/0.2 mL subcutaneous kit 1 mg SUBCUT [id number] ea 04/28/21 [History Last Taken Unknown] memantine 5 mg tablet 5 mg PO QAM 04/28/21 [History Last Taken Unknown] pramipexole 0.5 mg tablet 0.5 mg PO QHS PRN 04/28/21 [History Last Taken Unknown] furosemide 40 mg tablet See Rx Instructions .ROUTE .COMPLEX #180 tablet 04/29/21 [Rx Last Taken Unknown] aspirin 81 mg tablet,delayed release 81 mg PO DAILY #90 tab 05/18/21 [Rx Last Taken Unknown] mupirocin 1 applic TOPICAL BID 09/10/21 [History Last Taken Unknown] sulfamethoxazole-trimethoprim tab PO DAILY 09/10/21 [History Last Taken Unknown] Allergy/AdvReac Type Severity Reaction Status Date / Time No Known Allergies Allergy Verified 09/10/21 09:47 Family History Brother Atrial fibrillation Surgical History History of cataract extraction History of hernia repair Social History Smoking Status: Never smoker alcohol intake: never substance use type: does not use caffeine: Yes Type: carbonated beverages Number of servings: 1 ROS ROS ED Constitutional Constitutional ED: Reports fatigue and malaise; Denies chills or fever(s) Eyes Eyes: Denies change in vision or diplopia ENT ENT ED: Denies rhinorrhea or sore throat Cardiovascular Cardiovascular: Reports arrhythmia on telemetry; Denies chest pain or palpitations Respiratory/Chest Respiratory/Chest: Reports dyspnea on exertion; Denies cough Gastrointestinal Gastrointestinal: Denies abdominal pain, diarrhea, nausea or vomiting Genitourinary Genitourinary ED: Denies dysuria or hematuria Musculoskeletal Musculoskeletal: Reports as per HPI and extremity pain; Denies back pain or neck pain Integumentary Reports as per HPI, Abrasions and wounds; Denies abscess or rash Neurologic Neurologic: Reports tremor(s); Denies headache(s), paresthesias or weakness Psychiatric Psychiatric: Denies anxiety or suicidal thoughts EXAM Physical Exam Const Vital Signs: 09/10/21 09:43 09/10/21 09:46 09/10/21 10:24 Temperature 100.5 F H 100.5 F H 100.5 F H Temperature Source Oral Oral Oral Pulse Rate 87 87 104 H Respiratory Rate 20 H 20 H 20 H Blood Pressure 132/66 H 132/66 H 126/68 H Blood Pressure Mean 88 88 87 Pulse Ox 94 94 97 Oxygen Delivery Method Room Air Room Air Nasal Cannula Positive well nourished and well developed General Appearance ED: well developed and NAD HEENT Reports moist mucous membranes normocephalic and atraumatic Eyes PERRL and EOMs intact bilaterally Neck full ROM and supple Resp normal respiratory effort and clear to auscultation bilaterally Cardio no murmurs and peripheral pulses 2+ throughout Rate: tachycardic Rhythm: abnormal rhythm irregularly irregular GI non-tender and non-distended Auscultation: normoactive bowel sounds Palpation: soft Back/Spine no CVA tenderness General Back: other FROM Extremity Extremity Narrative: Superficial multifocal wound left mid baca without any expressible discharge, some scabbing present, some granulation present, diffuse edema and erythema all of which is tender surrounding this. There is a black line surrounding a large area, the erythema is not well-defined at the proximal aspect but is not necessarily beyond the line. No associated lymphangitis. No discrete abscess. Edema progresses all the way down to the foot. Patient able to move the knee and the ankle without any difficulty or significant pain. All compartments are swollen but not tight and soft. General Extremety ED: Yes edema and tenderness; Negative for pulses abnormal General Extremity: edema left lower extremity moderate; Negative for pulses abnormal Neuro oriented x3, CN's II-XII intact bilaterally and no sensory deficits noted Sensorium / Orientation: awake and alert Motor Exam: strength 5/5 throughout Skin Skin Narrative: Wound on left baca see above. Clinically no abscess. Consistent more with an infected abrasion/superficial wound. MDM MDM MDM Narrative Medical decision making narrative: Patient appears to have cellulitis associated with a superficial wound. Now he has a fever, no other obvious source according to the work-up. He is in rapid A. fib that is mildly tachycardic, I suspect his dyspnea with exertion is related to that and his infection which is probably causing him to be septic. Based on the fact that he has had more than 10 days of antibiotics so far and is obviously getting worse clinically, admission with IV antibiotics is warranted. I did an x-ray of his left lower leg, it showed no bony involvement or anything obvious/focal with regards to the bone or subcutaneous emphysema. Chest x-ray interpreted by radiology showing some congestion versus will treat so I added a BNP, that did return elevated, versus infiltrate. His lungs are clear, he has a minor cough but no major pulmonary symptoms, he is already getting vancomycin but I do not think he needs extra antibiotic coverage for pneumonia right now, I think the source of his fever is probably the leg. Discussed with hospitalist, will admit to [facility]. Although the patient meets criteria for sepsis, it is mostly due to presence of infection in the leg and vital signs, and he is clinically and hemodynamically doing very stable with improved vital signs since we treated his fever, and I do not think he needs to be admitted to a higher level of care at this time than [facility]. Lab Data Attestation: I reviewed the patient's lab results. Labs: Laboratory Results - last 24 hr 09/10/21 09/10/21 09/10/21 11:10 11:10 11:10 WBC 7.9 RBC 4.87 Hgb 14.1 Hct 44.1 MCV 90.6 MCH 29.0 MCHC 32.0 RDW Std Deviation 55.0 H RDW Coeff of Manuela 16.6 H Plt Count 231 MPV 9.6 Immature Gran % (Auto) 0.600 Neut % (Auto) 92.1 H Lymph % (Auto) 1.4 L [place] % (Auto) 5.7 Eos % (Auto) 0.1 Baso % (Auto) 0.1 Absolute Neuts (auto) 7.3 Absolute Lymphs (auto) 0.11 L Nucleated RBC % 0 Sodium 137 Potassium 4.3 Chloride 105 Carbon Dioxide 25.0 Anion Gap 7 BUN 27 H Creatinine 1.47 H Estim Creat Clear Calc 40.71 Est GFR (MDRD) Af Amer 60 Est GFR (MDRD) Non-Af 49 L BUN/Creatinine Ratio 18.4 Glucose 96 Lactic Acid 1.6 Calcium 9.0 Total Bilirubin 1.10 H AST 72 H ALT 14 L Alkaline Phosphatase 184 H Troponin I High Sens 9 B-Natriuretic Peptide Total Protein 7.4 Albumin 3.0 L Globulin 4.4 H Albumin/Globulin Ratio 0.7 L Urine Color Urine Clarity Urine pH Ur Specific [place] Urine Protein Urine Glucose (UA) Urine Ketones Urine Occult Blood Urine Nitrite Urine Bilirubin Urine Urobilinogen Ur Leukocyte Esterase Urine RBC Urine WBC Ur Squamous Epith Cells Urine Bacteria Urine Mucus 09/10/21 09/10/21 11:10 11:54 WBC RBC Hgb Hct MCV MCH MCHC RDW Std Deviation RDW Coeff of Manuela Plt Count MPV Immature Gran % (Auto) Neut % (Auto) Lymph % (Auto) [place] % (Auto) Eos % (Auto) Baso % (Auto) Absolute Neuts (auto) Absolute Lymphs (auto) Nucleated RBC % Sodium Potassium Chloride Carbon Dioxide Anion Gap BUN Creatinine Estim Creat Clear Calc Est GFR (MDRD) Af Amer Est GFR (MDRD) Non-Af BUN/Creatinine Ratio Glucose Lactic Acid Calcium Total Bilirubin AST ALT Alkaline Phosphatase Troponin I High Sens B-Natriuretic Peptide 405.6 H Total Protein Albumin Globulin Albumin/Globulin Ratio Urine Color Yellow Urine Clarity Sl. Cloudy Urine pH 5.0 Ur Specific [place] 1.020 Urine Protein 30 H Urine Glucose (UA) Normal Urine Ketones 50 H Urine Occult Blood 25 H Urine Nitrite Negative Urine Bilirubin Negative Urine Urobilinogen 1 H Ur Leukocyte Esterase 25 H Urine RBC 0 SEEN Urine WBC 0-5 SEEN Ur Squamous Epith Cells 0 SEEN Urine Bacteria 0 SEEN Urine Mucus 0 SEEN Radiography Diagnostic Testing: Clinical Impression(s) from Imaging Studies Chest X-Ray 09/10/21 10:19 IMPRESSION: Cardiomegaly. Bibasilar atelectasis and/or early infiltrates. Electronically Signed: Fausto Gross MD at 11:08 EST , Tibia/Fibula X-Ray 09/10/21 10:19 IMPRESSION: Normal x-ray examination of the tibia and fibula. Electronically Signed: Jayme Espinoza MD at 11:11 EST , EKG Initial EKG: Attestation: I personally reviewed and interpreted this EKG as follows: Interpretation: No Acute Injury Pattern and Atrial Fibrillation (103 rate) Prior EKG tracings: available for review Prior: Unchanged Discharge Plan Dx/Rx/DC Orders Clinical Impression: Sepsis, Traumatic open wound of left lower leg with infection, Failure of outpatient treatment, ALFRED (acute kidney injury), Declining functional status Disposition Disposition: Acute Care [facility]
[2021-09-10] MEDS: Acetaminophen 500 MG Tablet 1000 MG PO (11:13)
[2021-09-10] MEDS: 0.9% Normal Saline 1,000 ML 150 ML IV (11:20)
[2021-09-10 11:29] LABS: Absolute Lymphocyte Count 0.11 X10^3/uL (0.83-4.51); Absolute Neutrophil Count 7.3 X10^3/uL (2.0-7.7); Basophil# 0.01 X10^3/uL; Basophil% 0.1 % (0-1); Eosinophil# 0.01 X10^3/uL; Eosinophils% 0.1 % (0-5); Hematocrit 44.1 % (40-54); Hemoglobin 14.1 g/dL (13.0-16.5); Lymphocyte # 0.11 X10^3/ul (0.83-4.51); Lymphocyte % 1.4 % (19-41); Mean Corpuscular Volume 90.6 fL (80-94); Mean Platelet Vol. 9.6 fl (6.2-12.0); Monocyte# 0.45 X10^3/uL; Monocyte% 5.7 % (0-10); NRBC Flagged by Analyzer 0 % (0-5); Neutrophil # 7.29 X10^3/uL (2.7-7.7); Neutrophil % 92.1 % (47-70); POSITIVE DIFFERENTIAL YES; Platelet Count 231 K/mm3 (150-450); RBC Distribution Width CV 16.6 % (11.6-14.6); Red Blood Count 4.87 M/mm3 (4.6-6.2); White Blood Count 7.9 K/mm3 (4.4-11.0)
[2021-09-10 11:35] LABS: Differential Indicated SCAN CRITERIA MET
[2021-09-10 11:46] LABS: ALB/GLOB Ratio 0.7 RATIO (0.9-2.4); AST(SGOT) 72 U/L (15-37); Alanine Aminotransfer ALT/SGPT 14 U/L (16-61); Alkaline Phosphatase 184 U/L (45-117); Anion Gap 7 (5-15); BUN 27 mg/dL (7-18); BUN/Creat Ratio 18.4 RATIO (10-20); Chloride 105 mmol/L (98-107); Creatinine, Serum 1.47 mg/dL (0.70-1.30); EST Glomerular Filtration Rate 49 mL/min (>60); Est Glom Filt Rate - Afr Amer 60 mL/min (>60); Estimated Creatinine Clearance 40.71 ml/min; Globulin 4.4 g/dL (2.2-4.2); Glucose 96 mg/dL (74-106); Potassium 4.3 mmol/L (3.5-5.1); Protein, Total 7.4 g/dL (6.4-8.2); Sodium Level 137 mmol/L (136-145); Troponin-I HS 9 pg/mL (3.0-78.0)
[2021-09-10 11:56] LABS: Lactic Acid 1.6 mmol/L (0.4-1.9)
[2021-09-10 12:00] LABS: Bacteria 0 SEEN /hpf (None Seen); Mucous, Urine 0 SEEN /hpf (<or=2+); Red Blood Cells-Urine 0 SEEN /hpf (0-5); Squamous Epithelial Cells - UA 0 SEEN /hpf (0-5)
[2021-09-10 12:07] LABS: Color, Urine Yellow (Yellow); Glucose, Dipstick Normal (Normal); Ketone-Dipstick 50 mg/dl (Negative); Leukocyte Esterase-Dipstick 25 /ul (Negative); Nitrite-Dipstick Negative (Negative); Occult Blood-Urine 25 /ul (Negative); Protein-Dipstick 30 mg/dl (Negative); Urine Bilirubin Dipstick Negative (Negative); Urine Clarity Sl. Cloudy (Clear); Urine Urobilinogen 1 mg/dl (Normal)
[2021-09-10 12:13] LABS: White Blood Cells 0-5 SEEN /hpf (0-5)
[2021-09-10 12:46] LABS: BNP,B-Type NATRIURETIC PEPTIDE 405.6 pg/mL (0-100)
--- NOTE | 2021-09-10 13:11 | NURSING ---
MED SURG POLLO SEPSIS, LLE WOUND INFECTION, FAILURE OF OUTPATIENT TREATMENT, ACUTE KIDNEY INJURY
--- NOTE | 2021-09-10 13:25 | MRI_ITS ---
PROCEDURE: MRI LOWER EXTREMITY LEFT TIBIA/FIBULA REASON FOR EXAM: Male, 76 years old. Left leg soft tissue swelling -- Rule out deep infection or abscess; injury anterior tib/fib 08/24/21; fever, septic, redness TECHNIQUE: Standardized fat and water weighted pulse sequences were obtained in all 3 orthogonal planes. COMPARISON: X-ray earlier today FINDINGS: Normal tibia and fibula, without a periosteal, cortical or cancellous marrow abnormality. Normal anterior, lateral, and posterior calf compartments, with normal muscles, crural fascia and intermuscular septa. Diffuse skin thickening and edema of the subcutaneous fat with pooling of fluid medially consistent with cellulitis but no loculated fluid collection to suggest abscess. There is no solid, cystic or lipomatous mass lesion of the subcutis adipose space. MRI/Lower Ext/No Jt/w/o IMPRESSION: Cellulitis with pooling fluid medially but no definite abscess or osteomyelitis. Electronically Signed: Jayme Espinoza MD at 16:15 EST ,
--- NOTE | 2021-09-10 13:27 | HP.PCM.HOS_ITS ---
HPI - General General Date of Admission: 09/10/21 Date of Service: 09/10/21 Chief Complaint: Left leg swelling, pain, cellulitis failed 10 days of outpatient antibiotic HPI Glynn MOYA, is a 76 M with multiple comorbidities as listed below was brought to ED by EMS for left leg swelling, pain, redness after injury on August 24 after a tractor tire fell on it. Did not seek medical attention immediately and his left leg started swelling, redness, pain. He saw PCP on 31 August and completed 10 days of Keflex. Today started on Bactrim and took 1 pill but swelling pain getting worse therefore came to ED. Patient denies fever or chills, headache, nausea or vomiting. He has chronic shortness of breath due to history of A. fib and has chronic lower extremity edema. He was on Xarelto before that was discontinued because of history of recurrent fall due to Parkinson's disease. Denies history of diabetes mellitus. In ED, vital signs shows normal blood pressure and heart rate. Afebrile. Labs reviewed. Increased BUN/creatinine 27/1.47. Liver transaminases and alkaline phosphatase elevated. Left leg x-ray reported normal. Chest x-ray bibasilar atelectasis. Patient does not have symptoms of pneumonia including cough, sputum, tachypnea or hypoxia. Patient not had Covid infection is not vaccinated. 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 Other secondary pulmonary hypertension Parkinsons disease Persistent atrial fibrillation Prostate cancer Home Medications calcium carbonate 600 mg-vitamin D3 12.5 mcg (500 unit) capsule 1 cap PO DAILY 09/25/20 [History Last Taken Unknown] carbidopa ER 50 mg-levodopa 200 mg tablet,extended release 1 tablet PO TID tablet 09/25/20 [History Last Taken Unknown] dorzolamide 22.3 mg-timolol 6.8 mg/mL eye drops 1 drp OPHTHALMIC BID ml 09/25/20 [History Last Taken Unknown] prednisolone acetate 1 drp LEFT EYE BID 11/13/20 [History Last Taken Unknown] sennosides-docusate sodium [Stool Softener-Stimulant Laxat] 2 tab PO BID PRN PRN #0 tab 11/17/20 [Rx Last Taken Unknown] tamsulosin [Flomax] 0.4 mg PO DAILY #30 cap 11/17/20 [Rx Last Taken Unknown] diltiazem HCl 120 mg capsule,24 hr,extended release 120 mg PO DAILY #90 cap 02/11/21 [Rx Last Taken Unknown] potassium chloride 20 mEq tablet,extended release 20 meq PO QDAY #90 tab 03/10/21 [Rx Last Taken Unknown] atenolol 50 mg tablet 50 mg PO DAILY tab 04/28/21 [History Last Taken Unknown] leuprolide 1 mg/0.2 mL subcutaneous kit 1 mg SUBCUT [id number] ea 04/28/21 [History Last Taken Unknown] memantine 5 mg tablet 5 mg PO QAM 04/28/21 [History Last Taken Unknown] pramipexole 0.5 mg tablet 0.5 mg PO QHS PRN 04/28/21 [History Last Taken Unknown] furosemide 40 mg tablet See Rx Instructions .ROUTE .COMPLEX #180 tablet 04/29/21 [Rx Last Taken Unknown] aspirin 81 mg tablet,delayed release 81 mg PO DAILY #90 tab 05/18/21 [Rx Last Taken Unknown] mupirocin 1 applic TOPICAL BID 09/10/21 [History Last Taken Unknown] sulfamethoxazole-trimethoprim tab PO DAILY 09/10/21 [History Last Taken Unknown] Allergy/AdvReac Type Severity Reaction Status Date / Time No Known Allergies Allergy Verified 09/10/21 09:47 Family History Brother Atrial fibrillation Surgical History History of cataract extraction History of hernia repair Social History Smoking Status: Never smoker alcohol intake: never substance use type: does not use caffeine: Yes Type: carbonated beverages Number of servings: 1 ROS ROS Narrative Constitutional: Reports fatigue and weakness. Denies fever chills or diaphoresis HEENT: Reports systems reviewed and no addt'l complaints, except as documented Respiratory/Chest: Denies chest pain, chronic shortness of breath on exertion. No new or change in shortness of breath. Gastrointestinal: Denies coffee ground emesis, hematemesis or vomiting Genitourinary: History of chronic urinary incontinence. History of prostate cancer. Status post radiation denies burning urination or new urinary tract symptoms Musculoskeletal: Left leg pain as described in Neurologic: Denies seizure-liHPIke activity skin: Scab on left leg Endocrinology: Reports systems reviewed and no addt'l complaints, except as documented Hematologic/Lymphatic: Reports systems reviewed and no addt'l complaints, except as documented Rest 14 ROS are negative except as mentioned in HPI Vital Signs Vital Signs Vital Signs: 09/10/21 09:43 09/10/21 09:46 09/10/21 10:24 Temperature 100.5 F H 100.5 F H 100.5 F H Temperature Source Oral Oral Oral Pulse Rate 87 87 104 H Respiratory Rate 20 H 20 H 20 H Blood Pressure 132/66 H 132/66 H 126/68 H Blood Pressure Mean 88 88 87 Pulse Ox 94 94 97 Oxygen Delivery Method Room Air Room Air Nasal Cannula 09/10/21 10:46 09/10/21 11:00 09/10/21 11:19 Temperature 98 F 98 F 99.8 F H Temperature Source Temporal Temporal Oral Pulse Rate 98 60 Respiratory Rate 20 H 20 H Blood Pressure 162/97 H 130/68 H Blood Pressure Mean 118 88 Pulse Ox 94 96 Oxygen Delivery Method Room Air Room Air 09/10/21 12:00 09/10/21 13:00 09/10/21 13:07 Temperature 98 F 98.1 F 97.7 F L Temperature Source Temporal Temporal Temporal Pulse Rate 62 62 106 H Respiratory Rate 18 18 16 Blood Pressure 128/68 H 130/70 H 129/76 H Blood Pressure Mean 88 90 93 Pulse Ox 96 97 93 Oxygen Delivery Method Room Air Room Air Room Air 09/10/21 13:16 Temperature 97.6 F L Temperature Source Temporal Pulse Rate 96 Respiratory Rate 16 Blood Pressure 129/76 H Blood Pressure Mean 93 Pulse Ox 92 Oxygen Delivery Method Room Air Weight Weight: 236 lb 15.951 oz Body Mass Index (BMI) 36.0 Physical Exam Narrative General: Alert, Oriented x3, Cooperative HEENT: Atraumatic, PERRLA, EOMI, Normocephalic Oral: No Gingival or Mucosal Lesions/ Ulcerations Neck: Supple, No JVD, Negative Carotid Bruits Lungs: Air entry diminished in bilateral lung bases. No crepitation/rhonchi Cardiovascular: Irregular heartbeat, chronic A. fib, Normal S1, Normal S2, systolic murmur over LLSB Abdomen: Bowel Sounds Present, Soft, Non Tender, Non-Distended : No renal angle tenderness. No suprapubic tenderness. Extremities: No edema, Capillary Refill Less than 3 Seconds Skin: Redness over left leg along with superficial traumatic ulcer with scab and seepage. Cellulitis. Musculoskeletal: Swelling, tenderness, induration and redness over left leg mainly in anterolateral and posterior region stable cellulitis. ROM restricted at knee. Neurological: Cranial nerves II-XII grossly intact, DTR 2+/4 and Symmetrical, Neuro grossly intact Psych/Mental Status: Normal Affect, Appropriate Results Lab / Micro Data Result Diagrams: 09/10/21 11:10 09/10/21 11:10 Labs: Laboratory Results - last 24 hr 09/10/21 11:10: WBC 7.9, RBC 4.87, Hgb 14.1, Hct 44.1, MCV 90.6, MCH 29.0, MCHC 32.0, RDW Std Deviation 55.0 H, RDW Coeff of Manuela 16.6 H, Plt Count 231, MPV 9.6, Immature Gran % (Auto) 0.600, Neut % (Auto) 92.1 H, Lymph % (Auto) 1.4 L, [place] % (Auto) 5.7, Eos % (Auto) 0.1, Baso % (Auto) 0.1, Absolute Neuts (auto) 7.3, Absolute Lymphs (auto) 0.11 L, Nucleated RBC % 0 09/10/21 11:10: Sodium 137, Potassium 4.3, Chloride 105, Carbon Dioxide 25.0, Anion Gap 7, BUN 27 H, Creatinine 1.47 H, Estim Creat Clear Calc 40.71, Est GFR (MDRD) Af Amer 60, Est GFR (MDRD) Non-Af 49 L, BUN/Creatinine Ratio 18.4, Glu cose 96, Calcium 9.0, Total Bilirubin 1.10 H, AST 72 H, ALT 14 L, Alkaline Phosphatase 184 H, Troponin I High Sens 9, Total Protein 7.4, Albumin 3.0 L, Globulin 4.4 H, Albumin/Globulin Ratio 0.7 L 09/10/21 11:10: Lactic Acid 1.6 09/10/21 11:10: B-Natriuretic Peptide 405.6 H 09/10/21 11:54: Urine Color Yellow, Urine Clarity Sl. Cloudy, Urine pH 5.0, Ur Specific [place] 1.020, Urine Protein 30 H, Urine Glucose (UA) Normal, Urine Ketones 50 H, Urine Occult Blood 25 H, Urine Nitrite Negative, Urine Bilirubin Negative, Urine Urobilinogen 1 H, Ur Leukocyte Esterase 25 H, Urine RBC 0 SEEN, Urine WBC 0-5 SEEN, Ur Squamous Epith Cells 0 SEEN, Urine Bacteria 0 SEEN, Urine Mucus 0 SEEN Radiology Impression Chest X-Ray 09/10/21 10:19 IMPRESSION: Cardiomegaly. Bibasilar atelectasis and/or early infiltrates. Electronically Signed: Fausto Gross MD at 11:08 EST , Tibia/Fibula X-Ray 09/10/21 10:19 IMPRESSION: Normal x-ray examination of the tibia and fibula. Electronically Signed: Jayme Espinoza MD at 11:11 EST , Assessment & Plan Assessment/Plan (1) Failure of outpatient treatment: PLAN: 1. Cellulitis with superficial ulceration with seepage and a scab over the left leg due to blunt trauma: [facility] qSOFA score 0. Sepsis ruled out. Blood pressure is in normal range. No leukocytosis but patient has neutrophilia with lymphopenia. Patient is started on broad-spectrum IV antibiotic vancomycin and Zosyn. I talked to sheet metal worker helper Dr. Cooper and he will inform Dr. Camejo who is on-call and is consulted. MRI left leg ordered to look for deep abscess/phlegmon or infection. Blood cultures x2 ordered. Patient does not have signs symptoms of pneumonia or UTI. Wound care is consulted 2. Chronic A. fib: Patient was taken off Xarelto due to recurrent fall. Patient is on baby aspirin, atenolol and Cardizem CD 120 mg once daily continued 3. Chronic HFpEF, mild biventricular heart failure, valvular heart disease: Patient had 2D echo in May 2021 reported as EF 65% with mild global RV systolic dysfunction, mildly dilated RV, LA moderately enlarged, RA mildly enlarged, mild to moderate eccentric MR, 2+ TR and RVSP 43 mmHg. Patient is on Lasix 40 mg daily as swelling of both legs. We will change Lasix 40 mg IV d aily. 4. ALFRED with history of CKD stage IIIa: Patient baseline creatinine clearance is around 50-55 mill per minute. Today 40 mL/min, BUN 27, creatinine 1.47. Monitor kidney function and electrolytes. 5. History of prostate cancer, urethral stricture severe with bladder stone, 2 cm and left UVJ stone and chronic radiation cystitis: Patient had cystoscopy, internal urethrotomy, cystoscopy and cystolitholapaxy for bladder stone by urology Dr. Prather during previous admission in November 2020. Patient has chronic urine incontinence. Denies burning micturition. 5. Hypertension: Heart rate and blood pressure are control 6. Parkinson's disease, complicates care, continue on Carbidopa/levodopa and Mirapex. Patient history of recurrent fall Living will/advanced directive/end of life care: Patient does have living will or advanced directive. He states he needs daughters are power of attorney law clerk for health. After discussion of benefits/risks procedures involved with full code, DNR CC arrest and DNR CC, the patient opted for full code. Patient does want artificial life support including intubation, tube feed, ventilator and/chest compression, central venous catheter, vasopressor and DC shock if needed Total time spent in [id number] encounter in discussion of advanced directive 16 minutes. Charges/Coding Visit Charges Inpatient E&M: 43847 Init Hosp L3 Procedures Hospitalists Procedures: 32698 Advncd Care Plan 30 Min
--- NOTE | 2021-09-10 14:43 | CASEMGMT ---
RN CM Assessment Introduced role of RN CM to patient. Patient is alert, oriented and able to participate in RN CM Assessment. Care providers, pharmacy, and demographics verified. Admit Dx: Left Leg wound. Failed outpatient Tx. Re-Admit: No Barriers/Issues: None PCP: Masoud Rosa Specialists: Cardio- [place], Uro- Prostate CA-Yamilka, Neuro-Parkinsons- Bavis Preferred Pharmacy: [facility] Insurance: [employer] Rx Benefit: Yes LNOK: Snow Carlson LW/HPOA: Per has both and aware not on file and states plan to bring them in. HPOA- Herself and Dtr Joaquina Pope Living Arrangements: Lives with in a H, 2 steps to enter home ADL?s: Ambulates outside with either a cane or walker. Inside house Independent or sometimes cane/walker. Transportation: and will upon DC DME: Single point cane, 3 prong cane, 2WW, [place] HHC: Past with [facility] SNF: None Goal: Home and needs TBD. DC PLAN: Home with possible HH for Wound care and/or IV Abx- if needed, per Snow she can be taught or Dtr in law Milton whom lives close is a nurse and can assist. Sheba Luna RNCM
--- NOTE | 2021-09-10 16:36 | CON.PCM_ITS ---
Assessment & Plan Assessment/Plan (1) Abscess of leg without foot, left: PLAN: Patient examined evaluated, all findings cussed with patient in detail. Radiographs were negative for any soft tissue emphysema or fracture. MRI of the left lower extremity per radiologist read demonstrates cellulitis. Per personal examination of there appears to be a well-circumscribed fluid collection with approximately mid tibia on the medial aspect of the anterior medial tibial crest. This extends from mid tibia to just proximal to the ankle. Patient's vital signs demonstrate slight hypertension elevated heart rate at 91 respiratory rate 24 temperature 97.5 O2 saturation 91. On exam patient appears sleepy and in distress as he is shivering. I believe that this is related to an infected hematoma to his left lower extremity which requires urgent decompression via incision and drainage. After discussing with primary team, I will proceed with urgent incision and drainage of his left lower extremity to decompress any fluid collection causing a systemic inflammatory response. She will be followed closely postoperatively and will likely require a delayed primary closure in the near future pending improvement in infection status. We will take cultures intraoperatively and plan to consult infectious disease for additional infection management. We will follow this patient closely. (2) Cellulitis: QUALIFIERS: Site of cellulitis of extremity: lower extremity Laterality: left Site of cellulitis: extremity Qualified Code(s): L03.116 - Cellulitis of left lower limb HPI Consult Data Date of Consult: 09/10/21 HPI Narrative HPI Narrative: KAREN MOYA, is a 76 M who presents with with left leg swelling pain redness. Patient suffered an injury on August 25 when he was moving a large tractor tire and it collapsed on his left lower extremity. He noticed pain and swelling at that time, but attempted conservative treatment. Event ually he noticed that it was not improving and he saw his primary care physician and was treated for p.o. Keflex for 10 days. The swelling and redness persisted despite the antibiotic treatment he presented to the ED today with significant malaise chills and inability to stand up while at home. He notes pain to the site denies any diffuse purulent drainage reports some superficial abrasions to the site. He notes that there is redness and swelling to the area that is very tender to touch that the redness has progressed since initial injury. Patient has A. fib, but only takes aspirin 81 mg daily as he has Parkinson's and frequently falls. Patient has no other complaints at this time. [facility] Medical History (Updated 09/10/21 @ 16:[address] 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 Other secondary pulmonary hypertension Parkinsons disease Persistent atrial fibrillation Prostate cancer Home Medications calcium carbonate 600 mg-vitamin D3 12.5 mcg (500 unit) capsule 1 cap PO DAILY 09/25/20 [History Last Taken 09/09/21] carbidopa ER 50 mg-levodopa 200 mg tablet,extended release 1 tablet PO TID tablet 09/25/20 [History Last Taken 09/09/21] dorzolamide 22.3 mg-timolol 6.8 mg/mL eye drops 1 drp OPHTHALMIC BID ml 09/25/20 [History Last Taken 09/09/21] prednisolone acetate 1 drp LEFT EYE BID 11/13/20 [History Last Taken 09/09/21] atenolol 50 mg tablet 50 mg PO DAILY tab 04/28/21 [History Last Taken 09/09/21] leuprolide 1 mg/0.2 mL subcutaneous kit 1 mg SUBCUT [id number] ea 04/28/21 [History Last Taken Unknown] pramipexole 0.5 mg tablet 0.5 mg PO QHS PRN 04/28/21 [History Last Taken 09/09/21] ascorbic acid (vitamin C) 500 mg PO DAILY 09/10/21 [History Last Taken 09/09/21] aspirin 81 mg PO DAILY 09/10/21 [History Last Taken 09/09/21] diltiazem HCl 120 mg PO DAILY 09/10/21 [History Last Taken 09/09/21] furosemide 40 mg PO BID 09/10/21 [History Last Taken 09/09/21] latanoprost 1 drp EACH EYE QHS 09/10/21 [History Last Taken 09/09/21] memantine 10 mg PO BID 09/10/21 [History Last Taken 09/09/21] mupirocin 1 applic TOPICAL BID 09/10/21 [History Last Taken Unknown] potassium chloride 20 meq PO DAILY 09/10/21 [History Last Taken 09/09/21] sulfamethoxazole-trimethoprim 1 tab PO BID 09/10/21 [History Last Taken 09/09/21] tamsulosin [Flomax] 0.4 mg PO DAILY 09/10/21 [History Last Taken 09/09/21] Allergy/AdvReac Type Severity Reaction Status Date / Time No Known Allergies Allergy Verified 09/10/21 09:47 Family History Brother Atrial fibrillation Surgical History History of cataract extraction History of hernia repair Social History Smoking Status: Never smoker alcohol intake: never substance use type: does not use caffeine: Yes Type: carbonated beverages Number of servings: 1 Physical Exam Narrative Patient seen in bed, patient appears tired and distressed and is shivering. Vascular: Dorsalis pedis and posterior tibial pulses palpable 2 out of 4 to bilateral lower extremity. There is noted to be significant tense edema to the left lower extremity medial aspect of the tibia with significant erythema warmth and underlying fluctuance. Capillary fill time is brisk to toes. The left lower extremity significantly warmer to than the right. Neurologic: Light touch protective sensation intact to bilateral lower extremity Dermatologic tense edema with erythema warmth and fluctuance noted to the left mid medial tibia. Partial-thickness ulcerations noted to the site with hemorrhagic crusting and serosanguineous drainage. No other signs of infection at this time. Musculoskeletal: Pain with calf squeeze on the left lower extremity related to injury to that site. Active and passive range of motion intact bilateral lower extremity. muscular strength 5 out of 5 to bilateral lower extremity. Const alert, oriented x3 and no apparent distress Lab / Micro Data Result Diagrams: 09/10/21 11:10 09/10/21 11:10 Labs: Laboratory Results - last 24 hr 09/10/21 11:10: WBC 7.9, RBC 4.87, Hgb 14.1, Hct 44.1, MCV 90.6, MCH 29.0, MCHC 32.0, RDW Std Deviation 55.0 H, RDW Coeff of Manuela 16.6 H, Plt Count 231, MPV 9.6, Immature Gran % (Auto) 0.600, Neut % (Auto) 92.1 H, Lymph % (Auto) 1.4 L, [place] % (Auto) 5.7, Eos % (Auto) 0.1, Baso % (Auto) 0.1, Absolute Neuts (auto) 7.3, Absolute Lymphs (auto) 0.11 L, Nucleated RBC % 0 09/10/21 11:10: Sodium 137, Potassium 4.3, Chloride 105, Carbon Dioxide 25.0, Anion Gap 7, BUN 27 H, Creatinine 1.47 H, Estim Creat Clear Calc 40.71, Est GFR (MDRD) Af Amer 60, Est GFR (MDRD) Non-Af 49 L, BUN/Creatinine Ratio 18.4, Glucose 96, Calcium 9.0, Total Bilirubin 1.10 H, AST 72 H, ALT 14 L, Alkaline Phosphatase 184 H, Troponin I High Sens 9, Total Protein 7.4, Albumin 3.0 L, Globulin 4.4 H, Albumin/Globulin Ratio 0.7 L 09/10/21 11:10: Lactic Acid 1.6 09/10/21 11:10: B-Natriuretic Peptide 405.6 H 09/10/21 11:54: Urine Color Yellow, Urine Clarity Sl. Cloudy, Urine pH 5.0, Ur Specific [place] 1.020, Urine Protein 30 H, Urine Glucose (UA) Normal, Urine Ketones 50 H, Urine Occult Blood 25 H, Urine Nitrite Negative, Urine Bilirubin Negative, Urine Urobilinogen 1 H, Ur Leukocyte Esterase 25 H, Urine RBC 0 SEEN, Urine WBC 0-5 SEEN, Ur Squamous Epith Cells 0 SEEN, Urine Bacteria 0 SEEN, Urine Mucus 0 SEEN Radiology Impression Chest X-Ray 09/10/21 10:19 IMPRESSION: Cardiomegaly. Bibasilar atelectasis and/or early infiltrates. Electronically Signed: Fausto Gross MD at 11:08 EST , Tibia/Fibula X-Ray 09/10/21 10:19 IMPRESSION: Normal x-ray examination of the tibia and fibula. Electronically Signed: Jayme Espinoza MD at 11:11 EST , Lower Extremity MRI 09/10/21 13:25 IMPRESSION: Cellulitis with pooling fluid medially but no definite abscess or osteomyelitis. Electronically Signed: Jayme Espinoza MD at 16:15 EST ,
--- NOTE | 2021-09-10 17:00 | PCM.RX.CS ---
Consult Pharmacy has been consulted to manage selected antiobiotic: Vancomycin Type of Consult: New start Suspected Infection: Skin/Soft tissue Prior Doses of Antibiotics Received/Current Regimen: 1500MG IN ER 09/10/21 @1120 Labs: Sodium 137 mmol/L (136-145) 09/10/21 11:10 Potassium 4.3 mmol/L (3.5-5.1) 09/10/21 11:10 Chloride 105 mmol/L (98-107) 09/10/21 11:10 Carbon Dioxide 25.0 mmol/L (21.0-32.0) 09/10/21 11:10 Anion Gap 7 (5-15) 09/10/21 11:10 BUN 27 mg/dL (7-18) H 09/10/21 11:10 Creatinine 1.47 mg/dL (0.70-1.30) H 09/10/21 11:10 Est GFR (MDRD) Af Amer 60 mL/min (>60) 09/10/21 11:10 Est GFR (MDRD) Non-Af 49 mL/min (>60) L 09/10/21 11:10 BUN/Creatinine Ratio 18.4 RATIO (10-20) 09/10/21 11:10 Glucose 96 mg/dL (74-106) 09/10/21 11:10 Weight used for dosin.6 kg Estimated Creatinine Clearance: 40 Goal Trough: 15-20 mcg/mL Pharmacy Plan for Drug DosinMG Q12H STARTING 2300 Pharmacy Service will continue to monitor and adjust dosing as required. Follow-Up Labs: Trough Vancomycin Labs to be done on [date and time ordered]: 09/11/2021 @5224
[2021-09-10] MEDS: 0.9% Saline Lock 10 ML Syringe IV (18:38)
[2021-09-10] MEDS: Furosemide 40 MG/4 ML Vial IV (18:38)
[2021-09-10] MEDS: Enoxaparin 40 MG/0.4 ML Syringe SC (18:42)
[2021-09-10] MEDS: Piperacil/Tazobactam 3.375 GM/50 ML ML IV (21:25)
[2021-09-10] MEDS: CARBIDOPA/LEVODOPA CR 50/200 Tablet PO (21:56)
[2021-09-10] MEDS: Memantine Hydrochloride 10 MG Tablet PO (21:56)
[2021-09-10] MEDS: Senna/Docusate Sodium 1 Tablet 2 TABLET PO (21:56)
[2021-09-10] MEDS: Acetaminophen 325 MG Tablet 650 MG PO (21:57)
[2021-09-10] MEDS: prednisoLONE eye drops (5 mL) 1 DROP OPTH.BTL 1 DRP LEFT EYE (21:59)
[2021-09-10] MEDS: Mupirocin Ointment 22gm Tube 1 APPLIC TOPICAL (22:00)
[2021-09-10] MEDS: Latanoprost 0.005% 1 Bottle 1 DRP EACH EYE (22:00)
[2021-09-10] MEDS: Dorzolamide HCL/Timolol 10 ml Bottle 1 DRP OPHTHALMIC (22:10)
[2021-09-10] MEDS: Vancomycin IV 500 MG/100 ML BAG 100 MG IV (23:01)
[2021-09-11] VITALS (11 sets, daily range): BP systolic 87–128; BP diastolic 63–88; PULSE 82–97; RESP 16–20; TEMP 36.2–38; O2SAT 84–98; BMI 34.0; BMI 34.1
[2021-09-11] MEDS: Piperacil/Tazobactam 3.375 GM/50 ML ML IV ×3 (03:20→19:52)
[2021-09-11 06:22] LABS: Absolute Lymphocyte Count 0.24 X10^3/uL (0.83-4.51); Absolute Neutrophil Count 5.3 X10^3/uL (2.0-7.7); Basophil# 0.01 X10^3/uL; Basophil% 0.2 % (0-1); Eosinophils% 1.6 % (0-5); Hemoglobin 13.7 g/dL (13.0-16.5); Lymphocyte # 0.24 X10^3/ul (0.83-4.51); Lymphocyte % 3.8 % (19-41); Mean Corp Hgb Conc 31.9 g/dL (32-36); Mean Corpuscular Hgb 28.6 pg (27.0-32.0); Mean Corpuscular Volume 89.8 fL (80-94); Mean Platelet Vol. 10.2 fl (6.2-12.0); Monocyte# 0.58 X10^3/uL; Monocyte% 9.2 % (0-10); NRBC Flagged by Analyzer 0 % (0-5); Neutrophil % 84.4 % (47-70); POSITIVE DIFFERENTIAL YES; Platelet Count 201 K/mm3 (150-450); RBC Distribution Width CV 16.5 % (11.6-14.6); Red Blood Count 4.79 M/mm3 (4.6-6.2); White Blood Count 6.3 K/mm3 (4.4-11.0)
[2021-09-11 06:28] LABS: Differential Indicated SCAN CRITERIA MET
[2021-09-11 06:52] LABS: ALB/GLOB Ratio 0.7 RATIO (0.9-2.4); AST(SGOT) 72 U/L (15-37); Alanine Aminotransfer ALT/SGPT 11 U/L (16-61); Albumin, Serum 2.5 g/dL (3.2-5.0); Alkaline Phosphatase 169 U/L (45-117); Anion Gap 4 (5-15); BUN 24 mg/dL (7-18); BUN/Creat Ratio 16.3 RATIO (10-20); Calcium,Total 8.5 mg/dL (8.5-10.1); Chloride 104 mmol/L (98-107); Creatinine, Serum 1.47 mg/dL (0.70-1.30); EST Glomerular Filtration Rate 49 mL/min (>60); Est Glom Filt Rate - Afr Amer 60 mL/min (>60); Estimated Creatinine Clearance 40.71 ml/min; Globulin 3.7 g/dL (2.2-4.2); Glucose 99 mg/dL (74-106); Phosphorus 3.2 mg/dL (2.5-4.9); Potassium 3.7 mmol/L (3.5-5.1); Protein, Total 6.2 g/dL (6.4-8.2); Sodium Level 139 mmol/L (136-145)
[2021-09-11 07:17] LABS: Differential Comment SCANNED
--- NOTE | 2021-09-11 07:41 | WOUNDNOTE ---
In to assess the left lower leg with Dr Dickinson. there is still some erythema noted and some areas of fluctuance. tender to touch. plan is for I&D today in the OR. applied betadine as ordered and covered with dry dressing and wrapped with kerlix. applied an AJAY wrap from the base of the toes to just below the knee. pt tolerated well. will continue to follow.
--- NOTE | 2021-09-11 07:41 | PCM.PROGNOTE ---
Subjective Subjective This 76-year-old male seen bedside today. Notes continued pain in the left lower extremity with swelling. Notes some chills, less than yesterday. No other constitutional symptoms at this time. No new complaints overnight. Objective Data Objective Data Vital Signs: Vital Signs Temp Pulse Resp BP Pulse Ox 100.1 F H 91 20 H 126/80 H 94 09/11/21 07:38 09/11/21 07:38 09/11/21 07:38 09/11/21 07:38 09/11/21 07:38 Oxygen Delivery Method Room Air Weight: 101.6 kg Body Mass Index (BMI) 34.7 Intake & Output: Intake and Output for Last 24 Hours 09/09/21 09/10/21 09/11/21 23:59 23:59 23:59 Intake Total 1530 / 1530 150 / 150 Balance 1530 / 1530 150 / 150 Lab / Micro Data Result Diagrams: 09/11/21 05:35 09/11/21 05:35 Labs: Laboratory Results - last 24 hr 09/10/21 11:10: WBC 7.9, RBC 4.87, Hgb 14.1, Hct 44.1, MCV 90.6, MCH 29.0, MCHC 32.0, RDW Std Deviation 55.0 H, RDW Coeff of Manuela 16.6 H, Plt Count 231, MPV 9.6, Immature Gran % (Auto) 0.600, Neut % (Auto) 92.1 H, Lymph % (Auto) 1.4 L, [place] % (Auto) 5.7, Eos % (Auto) 0.1, Baso % (Auto) 0.1, Absolute Neuts (auto) 7.3, Absolute Lymphs (auto) 0.11 L, Nucleated RBC % 0 09/10/21 11:10: Sodium 137, Potassium 4.3, Chloride 105, Carbon Dioxide 25.0, Anion Gap 7, BUN 27 H, Creatinine 1.47 H, Estim Creat Clear Calc 40.71, Est GFR (MDRD) Af Amer 60, Est GFR (MDRD) Non-Af 49 L, BUN/Creatinine Ratio 18.4, Glucose 96, Calcium 9.0, Total Bilirubin 1.10 H, AST 72 H, ALT 14 L, Alkaline Phosphatase 184 H, Troponin I High Sens 9, Total Protein 7.4, Albumin 3.0 L, Globulin 4.4 H, Albumin/Globulin Ratio 0.7 L 09/10/21 11:10: Lactic Acid 1.6 09/10/21 11:10: B-Natriuretic Peptide 405.6 H 09/10/21 11:54: Urine Color Yellow, Urine Clarity Sl. Cloudy, Urine pH 5.0, Ur Specific [place] 1.020, Urine Protein 30 H, Urine Glucose (UA) Normal, Urine Ketones 50 H, Urine Occult Blood 25 H, Urine Nitrite Negative, Urine Bilirubin Negative, Urine Urobilinogen 1 H, Ur Leukocyte Esterase 25 H, Urine RBC 0 SEEN, Urine WBC 0-5 SEEN, Ur Squamous Epith Cells 0 SEEN, Urine Bacteria 0 SEEN, Urine Mucus 0 SEEN 09/11/21 05:35: WBC 6.3, RBC 4.79, Hgb 13.7, Hct 43.0, MCV 89.8, MCH 28.6, MCHC 31.9 L, RDW Std Deviation 54.0 H, RDW Coeff of Manuela 16.5 H, Plt Count 201, MPV 10.2, Immature Gran % (Auto) 0.800, Neut % (Auto) 84.4 H, Lymph % (Auto) 3.8 L, [place] % (Auto) 9.2, Eos % (Auto) 1.6, Baso % (Auto) 0.2, Absolute Neuts (auto) 5.3, Absolute Lymphs (auto) 0.24 L, Nucleated RBC % 0, Differential Comment SCANNED 09/11/21 05:35: Sodium 139, Potassium 3.7, Chloride 104, Carbon Dioxide 31.0, Anion Gap 4 L, BUN 24 H, Creatinine 1.47 H, Estim Creat Clear Calc 40.71, Est GFR (MDRD) Af Amer 60, Est GFR (MDRD) Non-Af 49 L, BUN/Creatinine Ratio 16.3, Glucose 99, Calcium 8.5, Phosphorus 3.2, Total Bilirubin 1.10 H, AST 72 H, ALT 11 L, Alkaline Phosphatase 169 H, Total Protein 6.2 L, Albumin 2.5 L, Globulin 3.7, Albumin/Globulin Ratio 0.7 L Radiography Diagnostic Testing: Radiology Impression Chest X-Ray 09/10/21 10:19 IMPRESSION: Cardiomegaly. Bibasilar atelectasis and/or early infiltrates. Electronically Signed: Fausto Gross MD at 11:08 EST , Tibia/Fibula X-Ray 09/10/21 10:19 IMPRESSION: Normal x-ray examination of the tibia and fibula. Electronically Signed: Jayme Espinoza MD at 11:11 EST , Lower Extremity MRI 09/10/21 13:25 IMPRESSION: Cellulitis with pooling fluid medially but no definite abscess or osteomyelitis. Electronically Signed: Jayme Espinoza MD at 16:15 EST , Physical Exam Narrative Patient seen in bed, patient appears tired and distressed and is shivering. Vascular: Dorsalis pedis and posterior tibial pulses palpable 2 out of 4 to bilateral lower extremity. There is noted to be significant tense edema to the left lower extremity medial aspect of the tibia with significant erythema warmth and underlying fluctuance. Capillary fill time is brisk to toes. The left lower extremity significantly warmer to than the right. Neurologic: Light touch protective sensation intact to bilateral lower extremity Dermatologic tense edema with erythema warmth and fluctuance noted to the left mid anteromedial tibia. Partial-thickness ulcerations noted to the site with hemorrhagic crusting and serosanguineous drainage. No other signs of infection at this time. Musculoskeletal: Pain with calf squeeze on the left lower extremity related to injury to that site. Active and passive range of motion intact bilateral lower extremity. muscular strength 5 out of 5 to bilateral lower extremity. Const alert, oriented x3 and no apparent distress Assessment & Plan Assessment/Plan (1) Abscess of leg without foot, left: PLAN: Patient examined evaluated, all findings cussed with patient in detail. Radiographs were negative for any soft tissue emphysema or fracture. MRI of the left lower extremity per radiologist read demonstrates cellulitis. Per personal examination of there appears to be a well-circumscribed fluid collection with approximately mid tibia on the medial aspect of the anterior medial tibial crest deep to subcutaneous tissue. This extends from mid tibia to just proximal to the ankle. Patient vital signs stable at this time. No leukocytosis. CRP/ESR ordered. Patient had duplex ultrasound negative for left lower extremity prior to admission. I recommend repeating duplex ultrasound, this was ordered. Based on clinical examination, review of MRI, lack of resolution of pain redness and swelling since initial injury on August 24, 2021, I recommend incision and drainage to evacuate subcutaneous hematoma that is infected. Pending intraoperative findings cultures will be taken in the wound may or may not be closed primarily. Surgical intervention was delayed due to anesthesia request. Initial plan was for incision and drainage urgently last night. Compression dressing applied to left lower extremity per wound care nurse. We will continue to follow patient closely. (2) Cellulitis: QUALIFIERS: Site of cellulitis: extremity Site of cellulitis of extremity: lower extremity Laterality: left Qualified Code(s): L03.116 - Cellulitis of left lower limb
--- NOTE | 2021-09-11 07:44 | VDLE_ITS ---
Reason For Study: swelling Procedure LEFT This is a venous duplex using B-mode, color GSV is normal. flow and spectral Doppler. CFV is compressible, spontaneous, phasic, Exam performed portable in patient room. competent, and demonstrates normal The exam was abbreviated due to the COVID 19 augmentation. protocol. FV is compressible, spontaneous, phasic, The exam was diagnostic. competent and demonstrates normal A preliminary report was called and/or faxed augmentation. to Griselda SMITH. POP V is compressible, spontaneous, phasic, competent and demonstrates normal augmentation. T/P Trunk is compressible. PTV is compressible. LT PerV is compressible. VL/Venous Duplex US, Unilateral Interpretation Summary Deep veins of the left lower extremity are patent and compressible segmentally. There is no evidence of left lower extremity deep vein thrombosis. Valvular competence appears intac t within the proximal deep venous system on the left . The left great saphenous vein appears patent a nd compressible segmentally. Ordering Physician: Dave Dickinson Performed By: Kurt Adler RVT
[2021-09-11] MEDS: CARBIDOPA/LEVODOPA CR 50/200 Tablet PO ×3 (07:45→21:10)
[2021-09-11] MEDS: Tamsulosin HCl 0.4 MG Capsule PO (07:45)
[2021-09-11] MEDS: Calcium Carb/Vitamin D 1 TABLET Tablet PO (07:46)
[2021-09-11] MEDS: Senna/Docusate Sodium 1 Tablet 2 TABLET PO ×2 (07:46→21:11)
[2021-09-11] MEDS: Memantine Hydrochloride 10 MG Tablet PO ×2 (07:46→21:11)
[2021-09-11] MEDS: Atenolol 50 MG Tablet PO (07:46)
[2021-09-11] MEDS: dilTIAZem CD 120 MG Capsule PO (07:46)
[2021-09-11] MEDS: Ascorbic Acid 500 MG Tablet PO (07:47)
[2021-09-11] MEDS: Dorzolamide HCL/Timolol 10 ml Bottle 1 DRP OPHTHALMIC ×2 (07:47→21:11)
[2021-09-11] MEDS: prednisoLONE eye drops (5 mL) 1 DROP OPTH.BTL 1 DRP LEFT EYE ×2 (07:48→21:11)
[2021-09-11] MEDS: 0.9% Saline Lock 10 ML Syringe IV ×2 (07:52→23:22)
[2021-09-11] MEDS: Furosemide 40 MG/4 ML Vial IV (07:52)
[2021-09-11 08:56] LABS: Erythrocyte Sedimentation Rate 28 mm/hr (0-20)
[2021-09-11] MEDS: Vancomycin IV 500 MG/100 ML BAG 100 MG IV ×2 (10:37→23:22)
[2021-09-11] MEDS: Bupivacaine Mpf 0.5% 30 ML VIAL (13:42)
[2021-09-11] MEDS: Bacitracin 500 UNITS/GM PACKET (14:05)
--- NOTE | 2021-09-11 14:28 | OP.PCM_ITS ---
Problems Associated Problem List Diagnoses (1) Abscess of leg without foot, left: (2) Cellulitis: (3) Hematoma: Report of Operation Date of Procedure: 09/11/21 Pre-Operative Diagnosis: Infected hematoma left leg Post-Operative Diagnosis: Same Surgery/Procedure Performed:: Incision and drainage with evacuation of infected hematoma left leg Description of Surgical Findings:: Patient was brought to the hospital after he had suffered a left lower extremity an injury in which a large tractor tire fell on his left leg 2 weeks prior. He was treated for a cellulitic infection by his primary care physician with p.o. Keflex. This did not resolve and his pain swelling continued. Prior to admission he noticed worsening of his condition with significant malaise, inability to stand up, difficulty breathing. He was admitted through the ED into the hospital with significant CHF exacerbation with elevated BNP, acute kidney injury with urinalysis suggestive of UTI, left lower extremity cellulitis with infected hematoma. An MRI was taken and demonstrated a large hematoma extending along the medial aspect of the tibia running from the level of the knee down to just proximal to the ankle. Due to concern for significant soft tissue infection and worsening of his condition decision was made for urgent decompression of this infected hematoma. Patient was brought back into the operating room placed comfortably in the supine position on the operating room table. Patient will be induced under general anesthesia. All osseous prominences were offloaded to prevent any compression neuropraxia. Well-padded left thigh tourniquet was applied to left lower extremity. Left lower extremity was then scrubbed prepped draped using typical aseptic manner. Once cleared by anesthesia local anesthesia was performed via local infiltration technique with 10 cc of half percent Marcaine plain. A 10 cm incision was drawn along the medial aspect of the tibia away from the great saphenous nerve and vein. This incision was made with a #15 blade after the tourniquet was inflated to 300 mmHg. This incision was made through the level of epidermis dermis to subcutaneous tissue blunt dissection was taken down the level of deep fascia which time a large hematoma was identified. Approximately 40 cc of coagulated blood was drained from the site. It was then cultured with culture swabs. Then flushed with 3 L of normal sterile saline using low-pressure pulse lavage. Repeat post lavage cultures were taken at this time. Decision to closing incision was made due to lack of any significant residual infection identified. Should be noted that all neurovascular structures were protected throughout the case with blunt retraction, any bleeders were identified and cauterized using Bovie. Incision was then closed with 3-0 Vicryl to subcutaneous layer. Skin closure was performed with 3-0 Prolene simple interrupted. Tourniquet was let down, tourniquet time was 23 minutes. Incision was dressed with bacitracin Adaptic 4 x 4's Kerlix and a 2 layer Howe compression dressing. No pathologic specimens, pre and post lavage swab cultures taken, no complications Patient was transferred to PACU vital signs stable vascular status intact all digits for further monitoring prior to discharge patient tolerated procedure and anesthesia well in apparent satisfactory condition. Patient will be transferred back to the fluoroscopy which he will continue to receive IV antibiotics. We will wait to see what the intraoperative cultures grow. He will be followed closely. Next dressing change will be planned for 09/13/2021. Surgeon: Dave Dickinson design consultant: None Type of Anesthesia: General Special Medications: none Specimen's removed: none Drains: none Estimated Blood Loss (mL): 50cc Grafts/Implants Used: None Complications None Admit VTE Documentation VTE Present on Admission: Yes VTE Pharm Prophylaxis ordered?: Yes
--- NOTE | 2021-09-11 15:05 | CASEMGMT ---
LUIS ZAYAS in to pt room, pt is off of floor. Discussed pt with , he states pt will be here through w/e. He would like pt to have C. LUIS ZAYAS to follow on Tuesday for set up of this.
--- NOTE | 2021-09-11 15:15 | PN.HOSP_ITS ---
Subjective Subjective Seen and examined. Follow-up for left leg superficial ulcer. Patient had MRI shows well-circumscribed fluid collection from mid tibia to just proximal to ankle, deep to subcutaneous tissue.Plan for surgical evacuation of hematoma Objective Data Objective Data Vital Signs: Vital Signs Temp Pulse Resp BP Pulse Ox 97.3 F L 95 16 114/79 98 09/11/21 14:51 09/11/21 14:51 09/11/21 14:51 09/11/21 14:51 09/11/21 14:51 Oxygen Flow Rate (L/min) 3 Oxygen Delivery Method Nasal Cannula Weight: 223 lb 15.834 oz Body Mass Index (BMI) 34.0 Intake & Output: Intake and Output for Last 24 Hours 09/09/21 09/10/21 09/11/21 23:59 23:59 23:59 Intake Total 1530 / 1530 300 / 300 Output Total 1350 / 1350 Balance 1530 / 1530 -1050 / -1050 Lab / Micro Data Result Diagrams: 09/11/21 05:35 09/11/21 05:35 Labs: Laboratory Results - last 24 hr 09/11/21 05:35: WBC 6.3, RBC 4.79, Hgb 13.7, Hct 43.0, MCV 89.8, MCH 28.6, MCHC 31.9 L, RDW Std Deviation 54.0 H, RDW Coeff of Manuela 16.5 H, Plt Count 201, MPV 10.2, Immature Gran % (Auto) 0.800, Neut % (Auto) 84.4 H, Lymph % (Auto) 3.8 L, [place] % (Auto) 9.2, Eos % (Auto) 1.6, Baso % (Auto) 0.2, Absolute Neuts (auto) 5.3, Absolute Lymphs (auto) 0.24 L, Nucleated RBC % 0, Differential Comment SCANNED 09/11/21 05:35: Sodium 139, Potassium 3.7, Chloride 104, Carbon Dioxide 31.0, Anion Gap 4 L, BUN 24 H, Creatinine 1.47 H, Estim Creat Clear Calc 40.71, Est GFR (MDRD) Af Amer 60, Est GFR (MDRD) Non-Af 49 L, BUN/Creatinine Ratio 16.3, Glucose 99, Calcium 8.5, Phosphorus 3.2, Total Bilirubin 1.10 H, AST 72 H, ALT 11 L, Alkaline Phosphatase 169 H, Total Protein 6.2 L, Albumin 2.5 L, Globulin 3.7, Albumin/Globulin Ratio 0.7 L 09/11/21 05:35: ESR 28 H 09/11/21 05:35: C-React Prot Ext Range 97.90 H Micro: Microbiology 09/10/21 11:54 Urine, Clean Catch Urine Culture - Preliminary Gram positive mady 09/11/21 10:45 Nasal Secretion SARS-CoV-2 Antigen (Rapid) - Final Radiography Diagnostic Testing: Radiology Impression Lower Extremity MRI 09/10/21 13:25 IMPRESSION: Cellulitis with pooling fluid medially but no definite abscess or osteomyelitis. Electronically Signed: Jayme Espinoza MD at 16:15 EST , Physical Exam Narrative General: Alert, Oriented x3, Cooperative HEENT: Atraumatic, PERRLA, EOMI, Normocephalic Oral: No Gingival or Mucosal Lesions/ Ulcerations Neck: Supple, No JVD, Negative Carotid Bruits Lungs: Air entry diminished in bilateral lung bases. No crepitation/rhonchi Cardiovascular: Irregular heartbeat, chronic A. fib, Normal S1, Normal S2, systolic murmur over LLSB Abdomen: Bowel Sounds Present, Soft, Non Tender, Non-Distended : No renal angle tenderness. No suprapubic tenderness. Extremities: No edema, Capillary Refill Less than 3 Seconds Skin: Redness over left leg along with superficial traumatic ulcer with scab and seepage. Say wrap bandage. Musculoskeletal: Swelling, tenderness, induration and redness over left leg mainly in anterolateral and posterior region stable cellulitis. ROM restricted at knee. Neurological: Cranial nerves II-XII grossly intact, DTR 2+/4 and Symmetrical, Neuro grossly intact Psych/Mental Status: Normal Affect, Appropriate Assessment & Plan Assessment/Plan (1) Failure of outpatient treatment: PLAN: 1. Cellulitis with superficial ulceration with seepage and a scab over the left leg due to blunt trauma: Patient is being admitted to [facility] floor. qSOFA score 0. Sepsis ruled out. Blood pressure is in normal range. No leukocytosis but patient has neutrophilia with lymphopenia. Patient is started on broad-spectrum IV antibiotic vancomycin and Zosyn. I talked to senior web developer Dr. Cooper and he will inform Dr. Camejo who is on-call and is consulted. MRI left leg ordered to look for deep abscess/phlegmon or infection. Blood cultures x2 ordered. Patient does not have signs symptoms of pneumonia or UTI. Wound care is consulted 09/11: MRI reported diffuse skin thickening and edema subcutaneous fat with pooling of fluid but no loculated fluid collection cystic space. Fluid collection from mid tibia just proximal to the ankle. Vascular study ordered. ESR and CRP are high. Patient had incision and drainage with evacuation of infected hematoma. Continue IV antibiotic. 2. Chronic A. fib: Patient was taken off Xarelto due to recurrent fall. Patient is on baby aspirin, atenolol and Cardizem CD 120 mg once daily continued 3. Chronic HFpEF, mild biventricular heart failure, valvular heart disease: Patient had 2D echo in May 2021 reported as EF 65% with mild global RV systolic dysfunction, mildly dilated RV, LA moderately enlarged, RA mildly enlarged, mild to moderate eccentric MR, 2+ TR and RVSP 43 mmHg. Patient is on Lasix 40 mg daily as swelling of both legs. We will change Lasix 40 mg IV daily. 4. ALFRED with history of CKD stage IIIa: Patient baseline creatinine clearance is around 50-55 mill per minute. Today 40 mL/min, BUN 27, creatinine 1.47. Monitor kidney function and electrolytes. 5. History of prostate cancer, urethral stricture severe with bladder stone, 2 cm and left UVJ stone and chronic radiation cystitis: Patient had cystoscopy, internal urethrotomy, cystoscopy and cystolitholapaxy for bladder stone by urology Dr. Prather during previous admission in November 2020. Patient has chronic urine incontinence. Denies burning micturition. 5. Hypertension: Heart rate and blood pressure are control 6. Parkinson's disease, complicates care, continue on Carbidopa/levodopa and Mirapex. Patient history of recurrent fall Living will/advanced directive/end of life care: Patient does have living will or advanced directive. He states he needs daughters are power of assistant city attorney for health. After discussion of benefits/risks procedures involved with full code, DNR CC arrest and DNR CC, the patient opted for full code. Patient does want artificial life support including intubation, tube feed, ventilator and/chest compression, central venous catheter, vasopressor and DC shock if needed Total time spent in [id number] encounter in discussion of advanced directive 16 minutes. Charges/Coding Visit Charges Inpatient E&M: 35673 Subs Hosp L2
[2021-09-11] MEDS: oxyCODONE 5 MG Tablet PO (16:31)
[2021-09-11] MEDS: Juven (unflavored) Packet 1 PACKET PO (16:32)
[2021-09-11] MEDS: Latanoprost 0.005% 1 Bottle 1 DRP EACH EYE (21:11)
[2021-09-11 23:11] LABS: Vancomycin, Trough Level 12.1 ug/mL (5.0-15.0)
--- NOTE | 2021-09-12 00:32 | PCM.RX.CS ---
Consult Pharmacy has been consulted to manage selected antiobiotic: Vancomycin Type of Consult: Follow-up Labs: Sodium 139 mmol/L (136-145) 09/11/21 05:35 Potassium 3.7 mmol/L (3.5-5.1) 09/11/21 05:35 Chloride 104 mmol/L (98-107) 09/11/21 05:35 Carbon Dioxide 31.0 mmol/L (21.0-32.0) 09/11/21 05:35 Anion Gap 4 (5-15) L 09/11/21 05:35 BUN 24 mg/dL (7-18) H 09/11/21 05:35 Creatinine 1.47 mg/dL (0.70-1.30) H 09/11/21 05:35 Est GFR (MDRD) Af Amer 60 mL/min (>60) 09/11/21 05:35 Est GFR (MDRD) Non-Af 49 mL/min (>60) L 09/11/21 05:35 BUN/Creatinine Ratio 16.3 RATIO (10-20) 09/11/21 05:35 Glucose 99 mg/dL (74-106) 09/11/21 05:35 Vancomycin Trough 12.1 ug/mL (5.0-15.0) 09/11/21 22:13 Microbiology: Microbiology 09/11/21 14:25 Wound Abcess - Leg, Left Gram Stain - Final 09/11/21 14:25 Wound Abcess - Leg, Left Gram Stain - Final 09/10/21 11:54 Urine, Clean Catch Urine Culture - Preliminary Gram positive mady 09/11/21 10:45 Nasal Secretion SARS-CoV-2 Antigen (Rapid) - Final Goal Trough: 15-20 mcg/mL Pharmacy Plan for Drug Dosing: Pharmacy Service will continue to monitor and adjust dosing as required. TROUGH 12.1 AT 11.5 HRS. INCREASE TO 750MG Q12H AND FOLLOW UP TROUGH PRIOR TO 4TH DOSE Follow-Up Labs: Trough Vancomycin Labs to be done on [date and time ordered]: 09/13 @ 3558
[2021-09-12 02:23] VITALS: BP 119/77; PULSE 78; RESP 18; TEMP 36.6; O2SAT 96
[2021-09-12 03:37] VITALS: BMI 34.1
[2021-09-12] MEDS: Piperacil/Tazobactam 3.375 GM/50 ML ML IV ×3 (04:20→19:29)
[2021-09-12] MEDS: CARBIDOPA/LEVODOPA CR 50/200 Tablet PO ×3 (05:35→21:43)
[2021-09-12 06:28] LABS: Absolute Lymphocyte Count 0.46 X10^3/uL (0.83-4.51); Absolute Neutrophil Count 4.6 X10^3/uL (2.0-7.7); Basophil# 0.02 X10^3/uL; Basophil% 0.3 % (0-1); Eosinophil# 0.23 X10^3/uL; Eosinophils% 3.7 % (0-5); Hematocrit 42.8 % (40-54); Hemoglobin 13.7 g/dL (13.0-16.5); Lymphocyte # 0.46 X10^3/ul (0.83-4.51); Lymphocyte % 7.5 % (19-41); Mean Corpuscular Hgb 28.9 pg (27.0-32.0); Mean Corpuscular Volume 90.3 fL (80-94); Mean Platelet Vol. 9.3 fl (6.2-12.0); Monocyte# 0.83 X10^3/uL; Monocyte% 13.5 % (0-10); NRBC Flagged by Analyzer 0 % (0-5); Neutrophil # 4.55 X10^3/uL (2.7-7.7); Neutrophil % 73.9 % (47-70); POSITIVE DIFFERENTIAL YES; Platelet Count 190 K/mm3 (150-450); RBC Distribution Width CV 16.1 % (11.6-14.6); RBC Distribution Width SD 54.1 fl (35.1-43.9); Red Blood Count 4.74 M/mm3 (4.6-6.2); White Blood Count 6.2 K/mm3 (4.4-11.0)
[2021-09-12 06:54] LABS: ALB/GLOB Ratio 0.6 RATIO (0.9-2.4); AST(SGOT) 36 U/L (15-37); Alanine Aminotransfer ALT/SGPT 12 U/L (16-61); Albumin, Serum 2.4 g/dL (3.2-5.0); Alkaline Phosphatase 150 U/L (45-117); Anion Gap 4 (5-15); BUN 26 mg/dL (7-18); BUN/Creat Ratio 20.5 RATIO (10-20); Chloride 101 mmol/L (98-107); Creatinine, Serum 1.27 mg/dL (0.70-1.30); EST Glomerular Filtration Rate 58 mL/min (>60); Est Glom Filt Rate - Afr Amer 71 mL/min (>60); Estimated Creatinine Clearance 47.13 ml/min; Glucose 102 mg/dL (74-106); Potassium 3.5 mmol/L (3.5-5.1); Protein, Total 6.4 g/dL (6.4-8.2); Sodium Level 136 mmol/L (136-145)
[2021-09-12 07:03] LABS: Differential Indicated SCAN CRITERIA MET
[2021-09-12 07:12] LABS: Differential Comment SCANNED
[2021-09-12 07:37] VITALS: BMI 34.1
[2021-09-12 07:44] VITALS: BP 127/95; PULSE 89; RESP 16; TEMP 37.5; O2SAT 92
[2021-09-12] MEDS: Aspirin E.C. 81 MG Tablet PO (07:50)
[2021-09-12] MEDS: dilTIAZem CD 120 MG Capsule PO (07:50)
[2021-09-12] MEDS: Enoxaparin 40 MG/0.4 ML Syringe SC (07:51)
[2021-09-12] MEDS: Tamsulosin HCl 0.4 MG Capsule PO (07:51)
[2021-09-12] MEDS: Memantine Hydrochloride 10 MG Tablet PO ×2 (07:51→21:43)
[2021-09-12] MEDS: Furosemide 40 MG/4 ML Vial IV (07:51)
[2021-09-12] MEDS: Calcium Carb/Vitamin D 1 TABLET Tablet PO (07:52)
[2021-09-12] MEDS: Ascorbic Acid 500 MG Tablet PO (07:52)
[2021-09-12] MEDS: Senna/Docusate Sodium 1 Tablet 2 TABLET PO ×2 (07:52→21:43)
[2021-09-12] MEDS: Dorzolamide HCL/Timolol 10 ml Bottle 1 DRP OPHTHALMIC ×2 (07:53→21:43)
[2021-09-12] MEDS: Juven (unflavored) Packet 1 PACKET PO (07:53)
[2021-09-12] MEDS: Atenolol 50 MG Tablet PO (07:53)
[2021-09-12] MEDS: prednisoLONE eye drops (5 mL) 1 DROP OPTH.BTL 1 DRP LEFT EYE ×2 (07:54→21:44)
[2021-09-12 08:02] LABS: Procalcitonin 0.29 ng/mL (0.00-0.09)
[2021-09-12] MEDS: Potassium Chloride Oral Tablet 20 MEQ 40 MEQ PO ×2 (08:18→10:27)
[2021-09-12 08:27] VITALS: O2SAT 92
[2021-09-12 11:37] VITALS: BMI 34.1
[2021-09-12] MEDS: Acetaminophen 325 MG Tablet 650 MG PO ×2 (12:26→20:04)
[2021-09-12 14:00] VITALS: BP 101/68; PULSE 86; RESP 18; TEMP 36.7; O2SAT 96
--- NOTE | 2021-09-12 15:03 | PN.HOSP_ITS ---
Subjective Subjective Seen and examined. Follow-up for infected traumatic hematoma of left leg. Patient on IV vancomycin and Zosyn. Discussed with ID. No fever or chills. Labs reviewed. Objective Data Objective Data Vital Signs: Vital Signs Temp Pulse Resp BP Pulse Ox 98.1 F 86 18 101/68 96 09/12/21 14:00 09/12/21 14:00 09/12/21 14:00 09/12/21 14:00 09/12/21 14:00 Oxygen Flow Rate (L/min) 2 Oxygen Delivery Method Room Air Weight: 230 lb 6.129 oz Body Mass Index (BMI) 34.0 Intake & Output: Intake and Output for Last 24 Hours 09/10/21 09/11/21 09/12/21 23:59 23:59 23:59 Intake Total 1530 / 1530 850 / 1350 1963.5 / 1963.5 Output Total 1550 / 1850 1400 / 1400 Balance 1530 / 1530 -700 / -500 563.5 / 563.5 Lab / Micro Data Result Diagrams: 09/12/21 06:18 09/12/21 06:18 Labs: Laboratory Results - last 24 hr 09/11/21 22:13: Vancomycin Trough 12.1 09/12/21 06:18: WBC 6.2, RBC 4.74, Hgb 13.7, Hct 42.8, MCV 90.3, MCH 28.9, MCHC 32.0, RDW Std Deviation 54.1 H, RDW Coeff of Manuela 16.1 H, Plt Count 190, MPV 9.3, Immature Gran % (Auto) 1.100 H, Neut % (Auto) 73.9 H, Lymph % (Auto) 7.5 L, [place] % (Auto) 13.5 H, Eos % (Auto) 3.7, Baso % (Auto) 0.3, Absolute Neuts (auto) 4.6, Absolute Lymphs (auto) 0.46 L, Nucleated RBC % 0, Differential Comment SCANNED 09/12/21 06:18: Sodium 136, Potassium 3.5, Chloride 101, Carbon Dioxide 31.0, Anion Gap 4 L, BUN 26 H, Creatinine 1.27, Estim Creat Clear Calc 47.13, Est GFR (MDRD) Af Amer 71, Est GFR (MDRD) Non-Af 58 L, BUN/Creatinine Ratio 20.5 H, Glucose 102, Calcium 8.0 L, Total Bilirubin 0.80, AST 36, ALT 12 L, Alkaline Phosphatase 150 H, Total Protein 6.4, Albumin 2.4 L, Globulin 4.0, Albumin/Globulin Ratio 0.6 L 09/12/21 06:18: Procalcitonin 0.29 H Micro: Microbiology 09/11/21 14:25 Wound Abcess - Leg, Left Gram Stain - Final 09/11/21 14:25 Wound Abcess - Leg, Left Wound Culture - Preliminary Staphylococcus aureus 09/11/21 14:25 Wound Abcess - Leg, Left Gram Stain - Final 09/11/21 14:25 Wound Abcess - Leg, Left Wound Culture - Preliminary Staphylococcus aureus 09/10/21 11:54 Urine, Clean Catch Urine Culture - Final Corynebacterium amycolatum 09/11/21 10:45 Nasal Secretion SARS-CoV-2 Antigen (Rapid) - Final Physical Exam Narrative General: Alert, Oriented x3, Cooperative HEENT: Atraumatic, PERRLA, EOMI, Normocephalic Oral: No Gingival or Mucosal Lesions/ Ulcerations Neck: Supple, No JVD, Negative Carotid Bruits Lungs: Air entry diminished in bilateral lung bases. No crepitation/rhonchi Cardiovascular: Irregular heartbeat, chronic A. fib, Normal S1, Normal S2, systolic murmur over LLSB Abdomen: Bowel Sounds Present, Soft, Non Tender, Non-Distended : No renal angle tenderness. No suprapubic tenderness. Extremities: No edema, Capillary Refill Less than 3 Seconds Skin: Status post incision and drainage. Say wrap bandage. Dressing is dry. Musculoskeletal: Swelling, tenderness, induration and redness over left leg mainly in anterolateral and posterior region cellulitis improving. ROM restricted at knee. Neurological: Cranial nerves II-XII grossly intact, DTR 2+/4 and Symmetrical, Neuro grossly intact Psych/Mental Status: Normal Affect, Appropriate Assessment & Plan Assessment/Plan (1) Failure of outpatient treatment: PLAN: 1. Cellulitis with superficial ulceration with seepage and a scab over the left leg due to blunt trauma: Patient is being admitted to [facility] floor. qSOFA score 0. Sepsis ruled out. Blood pressure is in normal range. No leukocytosis but patient has neutrophilia with lymphopenia. Patient is start ed on broad-spectrum IV antibiotic vancomycin and Zosyn. I talked to meeting planner Dr. Cooper and he will inform Dr. Camejo who is on-call and is consulted. Patient does not have signs symptoms of pneumonia or UTI. Wound care is consulted 09/11: MRI reported diffuse skin thickening and edema subcutaneous fat with pooling of fluid but no loculated fluid collection cystic space. Fluid collection from mid tibia just proximal to the ankle. Vascular study ordered. ESR and CRP are high. Patient had incision and drainage with evacuation of infected hematoma. Continue IV antibiotic. 09/12: Discussed with ID. Continue broad-spectrum antibiotic vancomycin and Zosyn. Preliminary tissue culture from surgery on 09/11 shows a staph aureus 2+. ID consult requested and will be seen on Tuesday. 2. Chronic A. fib: Patient was taken off Xarelto due to recurrent fall. Patient is on baby aspirin, atenolol and Cardizem CD 120 mg once daily continued 3. Chronic HFpEF, mild biventricular heart failure, valvular heart disease: Patient had 2D echo in May 2021 reported as EF 65% with mild global RV systolic dysfunction, mildly dilated RV, LA moderately enlarged, RA mildly enlarged, mild to moderate eccentric MR, 2+ TR and RVSP 43 mmHg. Patient is on Lasix 40 mg daily as swelling of both legs. We will change Lasix 40 mg IV daily. 09/12: Lasix changed to 40 mg oral daily. 4. ALFRED with history of CKD stage IIIa: Patient baseline creatinine clearance is around 50-55 mill per minute. Today 40 mL/min, BUN 27, creatinine 1.47. Monitor kidney function and electrolytes. 09/12: BUN/creat 26/1.27. ALFRED resolved. Admitting creatinine was 1.47. 5. History of prostate cancer, urethral stricture severe with bladder stone, 2 cm and left UVJ stone and chronic radiation cystitis: Patient had cystoscopy, internal urethrotomy, cystoscopy and cystolitholapaxy for bladder stone by urology Dr. Prather during previous admission in November 2020. Patient has chronic urine incontinence. Denies burning micturition. 5. Hypertension: Heart rate and blood pressure are control 6. Parkinson's disease, complicates care, continue on Carbidopa/levodopa and Mirapex. Patient history of recurrent fall Living will/advanced directive/end of life care: Patient does have living will or advanced directive. He states he needs daughters are power of ip technology transactions attorney for health. After discussion of benefits/risks procedures involved with full code, DNR CC arrest and DNR CC, the patient opted for full code. Patient does want artificial life support including intubation, tube feed, ventilator and/chest compression, central venous catheter, vasopressor and DC shock if needed Total time spent in [id number] encounter in discussion of advanced directive 16 minutes. Charges/Coding Visit Charges Inpatient E&M: 70083 Subs Hosp L2
[2021-09-12 15:37] VITALS: BMI 34.1
[2021-09-12] MEDS: Pramipexole Di-HCl 0.5 MG Tablet PO (17:23)
[2021-09-12 20:08] VITALS: BP 129/85; PULSE 85; RESP 16; TEMP 36.6; O2SAT 96; BMI 34.1
[2021-09-12 20:22] VITALS: O2SAT 91
[2021-09-12] MEDS: Latanoprost 0.005% 1 Bottle 1 DRP EACH EYE (21:44)
[2021-09-12] MEDS: 0.9% Saline Lock 10 ML Syringe IV (22:03)
[2021-09-13 01:50] VITALS: BP 126/86; PULSE 81; RESP 16; TEMP 37; O2SAT 95
[2021-09-13] MEDS: Piperacil/Tazobactam 3.375 GM/50 ML ML IV (05:06)
[2021-09-13] MEDS: CARBIDOPA/LEVODOPA CR 50/200 Tablet PO ×3 (05:06→22:17)
[2021-09-13 06:46] LABS: Absolute Lymphocyte Count 0.58 X10^3/uL (0.83-4.51); Absolute Neutrophil Count 3.9 X10^3/uL (2.0-7.7); Basophil# 0.02 X10^3/uL; Basophil% 0.4 % (0-1); Eosinophil# 0.27 X10^3/uL; Eosinophils% 4.9 % (0-5); Hematocrit 43.6 % (40-54); Hemoglobin 14.2 g/dL (13.0-16.5); Lymphocyte # 0.58 X10^3/ul (0.83-4.51); Lymphocyte % 10.5 % (19-41); Mean Corp Hgb Conc 32.6 g/dL (32-36); Mean Corpuscular Hgb 29.7 pg (27.0-32.0); Mean Corpuscular Volume 91.2 fL (80-94); Monocyte# 0.64 X10^3/uL; Monocyte% 11.6 % (0-10); NRBC Flagged by Analyzer 0 % (0-5); Neutrophil # 3.94 X10^3/uL (2.7-7.7); Neutrophil % 71.3 % (47-70); POSITIVE DIFFERENTIAL YES; Platelet Count 222 K/mm3 (150-450); RBC Distribution Width CV 15.9 % (11.6-14.6); RBC Distribution Width SD 53.5 fl (35.1-43.9); Red Blood Count 4.78 M/mm3 (4.6-6.2); White Blood Count 5.5 K/mm3 (4.4-11.0)
[2021-09-13 07:03] LABS: Differential Indicated SCAN CRITERIA MET
[2021-09-13 07:08] LABS: ALB/GLOB Ratio 0.6 RATIO (0.9-2.4); AST(SGOT) 26 U/L (15-37); Alanine Aminotransfer ALT/SGPT 12 U/L (16-61); Albumin, Serum 2.4 g/dL (3.2-5.0); Alkaline Phosphatase 139 U/L (45-117); Anion Gap 5 (5-15); BUN 28 mg/dL (7-18); Calcium,Total 8.4 mg/dL (8.5-10.1); Chloride 102 mmol/L (98-107); Creatinine, Serum 1.12 mg/dL (0.70-1.30); EST Glomerular Filtration Rate 68 mL/min (>60); Est Glom Filt Rate - Afr Amer 82 mL/min (>60); Estimated Creatinine Clearance 53.44 ml/min; Glucose 105 mg/dL (74-106); Magnesium 2.2 mg/dL (1.6-2.6); Potassium 3.8 mmol/L (3.5-5.1); Protein, Total 6.4 g/dL (6.4-8.2); Sodium Level 136 mmol/L (136-145)
[2021-09-13 07:14] LABS: Phosphorus 3.3 mg/dL (2.5-4.9)
[2021-09-13 07:24] LABS: Differential Comment SCANNED
[2021-09-13 08:07] VITALS: BP 120/74; PULSE 69; RESP 18; TEMP 37; O2SAT 96
[2021-09-13] MEDS: Senna/Docusate Sodium 1 Tablet 2 TABLET PO (08:15)
[2021-09-13] MEDS: Ascorbic Acid 500 MG Tablet PO (08:16)
[2021-09-13] MEDS: Memantine Hydrochloride 10 MG Tablet PO ×2 (08:16→22:17)
[2021-09-13] MEDS: Enoxaparin 40 MG/0.4 ML Syringe SC (08:16)
[2021-09-13] MEDS: Aspirin E.C. 81 MG Tablet PO (08:18)
[2021-09-13] MEDS: Calcium Carb/Vitamin D 1 TABLET Tablet PO (08:19)
[2021-09-13] MEDS: Tamsulosin HCl 0.4 MG Capsule PO (08:19)
[2021-09-13] MEDS: dilTIAZem CD 120 MG Capsule PO (08:20)
[2021-09-13] MEDS: Juven (unflavored) Packet 1 PACKET PO ×2 (08:20→17:52)
[2021-09-13] MEDS: Dorzolamide HCL/Timolol 10 ml Bottle 1 DRP OPHTHALMIC ×2 (08:21→22:17)
[2021-09-13] MEDS: prednisoLONE eye drops (5 mL) 1 DROP OPTH.BTL 1 DRP LEFT EYE ×2 (08:23→22:17)
[2021-09-13] MEDS: Atenolol 50 MG Tablet PO (08:23)
[2021-09-13] MEDS: Furosemide 40 MG Tablet PO (08:33)
[2021-09-13 09:32] VITALS: O2SAT 96
--- NOTE | 2021-09-13 10:47 | PN.HOSP_ITS ---
Subjective Subjective Follow-up for infected left leg traumatic hematoma. Mild improvement in the pain in the left leg. No fever. T-max 99.5 Objective Data Objective Data Vital Signs: Vital Signs Temp Pulse Resp BP Pulse Ox 98.6 F 69 18 120/74 96 09/13/21 08:07 09/13/21 08:07 09/13/21 08:07 09/13/21 08:07 09/13/21 09:32 Oxygen Flow Rate (L/min) 2 Oxygen Delivery Method Nasal Cannula Weight: 225 lb 15.581 oz Body Mass Index (BMI) 34.0 Intake & Output: Intake and Output for Last 24 Hours 09/11/21 09/12/21 09/14/21 23:59 23:59 00:59 Intake Total 850 / 1350 2776.75 / 2776.75 67.75 / 67.75 Output Total 1550 / 1850 1725 / 5 550 / 550 Balance -700 / -500 1051.75 / 751.75 -482.25 / -482.25 Lab / Micro Data Result Diagrams: 09/13/21 05:36 09/13/21 05:36 Labs: Laboratory Results - last 24 hr 09/13/21 05:36: WBC 5.5, RBC 4.78, Hgb 14.2, Hct 43.6, MCV 91.2, MCH 29.7, MCHC 32.6, RDW Std Deviation 53.5 H, RDW Coeff of Manuela 15.9 H, Plt Count 222, MPV 10.0, Immature Gran % (Auto) 1.300 H, Neut % (Auto) 71.3 H, Lymph % (Auto) 10.5 L, [place] % (Auto) 11.6 H, Eos % (Auto) 4.9, Baso % (Auto) 0.4, Absolute Neuts (auto) 3.9, Absolute Lymphs (auto) 0.58 L, Nucleated RBC % 0, Differential Comment SCANNED 09/13/21 05:36: Sodium 136, Potassium 3.8, Chloride 102, Carbon Dioxide 29.0, Anion Gap 5, BUN 28 H, Creatinine 1.12, Estim Creat Clear Calc 53.44, Est GFR (MDRD) Af Amer 82, Est GFR (MDRD) Non-Af 68, BUN/Creatinine Ratio 25.0 H, Glucose 105, Calcium 8.4 L, Magnesium 2.2, Total Bilirubin 0.60, AST 26, ALT 12 L, Alkaline Phosphatase 139 H, Total Protein 6.4, Albumin 2.4 L, Globulin 4.0, Albumin/Globulin Ratio 0.6 L 09/13/21 05:36: Phosphorus 3.3 Micro: Microbiology 09/11/21 14:25 Wound Abcess - Leg, Left Gram Stain - Final 09/11/21 14:25 Wound Abcess - Leg, Left Wound Culture - Final Meth. resistant Staph. aureus 09/11/21 14:25 Wound Abcess - Leg, Left Anaerobic Culture - Final No anaerobic bacteria isolated. 09/11/21 14:25 Wound Abcess - Leg, Left Gram Stain - Final 09/11/21 14:25 Wound Abcess - Leg, Left Wound Culture - Final Meth. resistant Staph. aureus 09/11/21 14:25 Wound Abcess - Leg, Left Anaerobic Culture - Final No anaerobic bacteria isolated. 09/10/21 11:40 Blood Culture (Wb) - Right Hand Blood Culture - Preliminary No growth in 48 hours. 09/10/21 11:10 Blood Culture (Wb) - Left Hand Blood Culture - Preliminary No growth in 48 hours. 09/10/21 11:54 Urine, Clean Catch Urine Culture - Final Corynebacterium amycolatum 09/11/21 10:45 Nasal Secretion SARS-CoV-2 Antigen (Rapid) - Final Physical Exam Narrative General: Alert, Oriented x3, Cooperative HEENT: Atraumatic, PERRLA, EOMI, Normocephalic Oral: No Gingival or Mucosal Lesions/ Ulcerations Neck: Supple, No JVD, Negative Carotid Bruits Lungs: Air entry diminished in bilateral lung bases. No crepitation/rhonchi Cardiovascular: Irregular heartbeat, chronic A. fib, Normal S1, Normal S2, s ystolic murmur over LLSB Abdomen: Bowel Sounds Present, Soft, Non Tender, Non-Distended : No renal angle tenderness. No suprapubic tenderness. Extremities: No edema, Capillary Refill Less than 3 Seconds Skin: Status post incision and drainage. Say wrap bandage. Dressing is dry. Musculoskeletal: Swelling, and redness over left leg mainly in anterolateral and posterior region and cellulitis improved. Mild tenderness in calf. ROM restricted at knee. Neurological: Cranial nerves II-XII grossly intact, DTR 2+/4 and Symmetrical, Neuro grossly intact Psych/Mental Status: Normal Affect, Appropriate Assessment & Plan Assessment/Plan (1) Failure of outpatient treatment: PLAN: 1. Cellulitis with superficial ulceration with seepage and a scab over the left leg due to blunt trauma: Patient is being admitted to [facility] floor. qSOFA score 0. Sepsis ruled out. Blood pressure is in normal range. No leukocytosis but patient has neutrophilia with lymphopenia. Patient is started on broad-spectrum IV antibiotic vancomycin and Zosyn. I talked to director speech Dr. Cooper and he will inform Dr. Camejo who is on-call and is consulted. Patient does not have signs symptoms of pneumonia or UTI. Wound care is consulted 09/11: MRI reported diffuse skin thickening and edema subcutaneous fat with po oling of fluid but no loculated fluid collection cystic space. Fluid collection from mid tibia just proximal to the ankle. Vascular study ordered. ESR and CRP are high. Patient had incision and drainage with evacuation of infected hematoma. Continue IV antibiotic. 09/12: Discussed with ID. Continue broad-spectrum antibiotic vancomycin and Zosyn. Preliminary tissue culture from surgery on 09/11 shows a staph aureus 2+. ID consult requested and will be seen on Tuesday. 09/13: Wound culture shows 2+ MRSA sensitive to vancomycin, doxycycline, tetracycline, linezolid. IV Zosyn discontinued. Continue vancomycin. Blood cultures x2 - for 48 hours. Urine culture shows corynebacterium 11,020 5000, contamination. 2. Chronic A. fib: Patient was taken off Xarelto due to recurrent fall. Patie nt is on baby aspirin, atenolol and Cardizem CD 120 mg once daily continued 09/13: Heart rate is controlled 3. Chronic HFpEF, mild biventricular heart failure, valvular heart disease: Patient had 2D echo in May 2021 reported as EF 65% with mild global RV systolic dysfunction, mildly dilated RV, LA moderately enlarged, RA mildly enlarged, mild to moderate eccentric MR, 2+ TR and RVSP 43 mmHg. Patient is on Lasix 40 mg daily as swelling of both legs. We will change Lasix 40 mg IV daily. 09/12: Lasix changed to 40 mg oral daily. 4. ALFRED with history of CKD stage IIIa: Patient baseline creatinine clearance is around 50-55 mill per minute. Today 40 mL/min, BUN 27, creatinine 1.47. Monit or kidney function and electrolytes. 09/12: BUN/creat 26/1.27. ALFRED resolved. Admitting creatinine was 1.47. 5. History of prostate cancer, urethral stricture severe with bladder stone, 2 cm and left UVJ stone and chronic radiation cystitis: Patient had cystoscopy, internal urethrotomy, cystoscopy and cystolitholapaxy for bladder stone by urology Dr. Prather during previous admission in November 2020. Patient has chronic urine incontinence. Denies burning micturition. 5. Hypertension: Heart rate and blood pressure are control 6. Parkinson's disease, complicates care, continue on Carbidopa/levodopa and Mirapex. Patient history of recurrent fall Living will/advanced directive/end of life care: Patient does have living will or advanced directive. He states he needs daughters are power of securities attorney for health. After discussion of benefits/risks procedures involved with full code, DNR CC arrest and DNR CC, the patient opted for full code. Patient does want artificial life support including intubation, tube feed, ventilator and/chest compression, central venous catheter, vasopressor and DC shock if needed Total time spent in [id number] encounter in discussion of advanced direc tive 16 minutes. Discharge plan: ID consult tomorrow and discharge home on antibiotic. Charges/Coding Visit Charges Inpatient E&M: 51740 Subs Hosp L2
--- NOTE | 2021-09-13 11:01 | PCM.PROGNOTE ---
Subjective Subjective This 76-year-old male was seen bedside feeling significantly better at this time. Patient denies any fever chills nausea vomiting chest pain calf pain shortness of breath. Since hospital admission he was initially unable to stand up and bear weight on his left lower extremity. After his procedure on Tuesday he has been able to do stand up for transfer purposes and for physical therapy. He has been voiding urine and has had a bowel movement since the procedure. No other complaints at this time. Objective Data Objective Data Vital Signs: Vital Signs Temp Pulse Resp BP Pulse Ox 98.6 F 69 18 120/74 96 09/13/21 08:07 09/13/21 08:07 09/13/21 08:07 09/13/21 08:07 09/13/21 09:32 Oxygen Flow Rate (L/min) 2 Oxygen Delivery Method Nasal Cannula Weight: 102.5 kg Body Mass Index (BMI) 34.0 Intake & Output: Intake and Output for Last 24 Hours 09/11/21 09/12/21 09/14/21 23:59 23:59 00:59 Intake Total 850 / 1350 2776.75 / 2776.75 117.75 / 117.75 Output Total 1550 / 1850 1725 / 2025 550 / 550 Balance -700 / -500 1051.75 / 751.75 -432.25 / -432.25 Lab / Micro Data Result Diagrams: 09/13/21 05:36 09/13/21 05:36 Labs: Laboratory Results - last 24 hr 09/13/21 05:36: WBC 5.5, RBC 4.78, Hgb 14.2, Hct 43.6, MCV 91.2, MCH 29.7, MCHC 32.6, RDW Std Deviation 53.5 H, RDW Coeff of Manuela 15.9 H, Plt Count 222, MPV 10.0, Immature Gran % (Auto) 1.300 H, Neut % (Auto) 71.3 H, Lymph % (Auto) 10.5 L, [place] % (Auto) 11.6 H, Eos % (Auto) 4.9, Baso % (Auto) 0.4, Absolute Neuts (auto) 3.9, Absolute Lymphs (auto) 0.58 L, Nucleated RBC % 0, Differential Comment SCANNED 09/13/21 05:36: Sodium 136, Potassium 3.8, Chloride 102, Carbon Dioxide 29.0, Anion Gap 5, BUN 28 H, Creatinine 1.12, Estim Creat Clear Calc 53.44, Est GFR (MDRD) Af Amer 82, Est GFR (MDRD) Non-Af 68, BUN/Creatinine Ratio 25.0 H, Glucose 105, Calcium 8.4 L, Magnesium 2.2, Total Bilirubin 0.60, AST 26, ALT 12 L, Alkaline Phosphatase 139 H, Total Protein 6.4, Albumin 2.4 L, Globulin 4.0, Albumin/Globulin Ratio 0.6 L 09/13/21 05:36: Phosphorus 3.3 Micro: Microbiology 09/11/21 14:25 Wound Abcess - Leg, Left Gram Stain - Final 09/11/21 14:25 Wound Abcess - Leg, Left Wound Culture - Final Meth. resistant Staph. aureus 09/11/21 14:25 Wound Abcess - Leg, Left Anaerobic Culture - Final No anaerobic bacteria isolated. 09/11/21 14:25 Wound Abcess - Leg, Left Gram Stain - Final 09/11/21 14:25 Wound Abcess - Leg, Left Wound Culture - Final Meth. resistant Staph. aureus 09/11/21 14:25 Wound Abcess - Leg, Left Anaerobic Culture - Final No anaerobic bacteria isolated. 09/10/21 11:40 Blood Culture (Wb) - Right Hand Blood Culture - Preliminary No growth in 48 hours. 09/10/21 11:10 Blood Culture (Wb) - Left Hand Blood Culture - Preliminary No growth in 48 hours. 09/10/21 11:54 Urine, Clean Catch Urine Culture - Final Corynebacterium amycolatum 09/11/21 10:45 Nasal Secretion SARS-CoV-2 Antigen (Rapid) - Final Physical Exam Narrative Patient seen in bed, patient appears tired and distressed and is shivering. Vascular: Dorsalis pedis and posterior tibial pulses palpable 2 out of 4 to bilateral lower extremity. Resolved edema and erythema to left lower extremity. Warmth resolving. No pain with calf squeeze bilaterally. Neurologic: Light touch protective sensation intact to bilateral lower extremity Dermatologic: Significantly resolved area of erythema and edema as well as warmth. Skin incision to anterior medial leg appears well approximated with intact sutures. Musculoskeletal: Active and passive range of motion intact bilateral lower extremity. muscular strength 5 out of 5 to bilateral lower extremity. Const alert, oriented x3 and no apparent distress Assessment & Plan Assessment/Plan (1) Abscess of leg without foot, left: PLAN: Patient examined evaluated, all findings discussed with patient in detail. Radiographs were negative for any soft tissue emphysema or fracture. Intraoperatively there was a large infected hematoma which was evacuated. Pre and post lavage cultures both grew staph aureus, these are awaiting culture and sensitivity. Pending results patient likely would respond well to p.o. antibiotics. Patient currently receiving IV vancomycin. Dressing was changed today bacitracin Adaptic 4 x 4's Kerlix and a single layer Howe compression dressing was applied. Patient clinically doing much better. We will await final culture and sensitivity from intraoperative cultures. I recommend home health care dressing changes upon discharge consisting of dressing changes 3 times a week with application of bacitracin and Adaptic to the incisional site along the anteromedial leg, 4 x 4's, Kerlix, 1-2 layer compression dressing. We will plan to continue to follow patient closely. (2) Cellulitis: QUALIFIERS: Site of cellulitis: extremity Site of cellulitis of extremity: lower extremity Laterality: left Qualified Code(s): L03.116 - Cellulitis of left lower limb (3) Hematoma:
[2021-09-13 13:58] VITALS: BP 106/67; PULSE 74; RESP 16; TEMP 37; O2SAT 96
[2021-09-13 19:06] VITALS: O2SAT 91
[2021-09-13 20:00] VITALS: BP 123/84; PULSE 79; RESP 18; TEMP 36.6; O2SAT 94
[2021-09-13] MEDS: Latanoprost 0.005% 1 Bottle 1 DRP EACH EYE (22:17)
[2021-09-13 23:00] LABS: Vancomycin, Trough Level 16.8 ug/mL (5.0-15.0)
[2021-09-13] MEDS: 0.9% Saline Lock 10 ML Syringe IV (23:09)
--- NOTE | 2021-09-13 23:10 | PCM.RX.CS ---
Consult Pharmacy has been consulted to manage selected antiobiotic: Vancomycin Type of Consult: Follow-up Labs: Sodium 136 mmol/L (136-145) 09/13/21 05:36 Potassium 3.8 mmol/L (3.5-5.1) 09/13/21 05:36 Chloride 102 mmol/L (98-107) 09/13/21 05:36 Carbon Dioxide 29.0 mmol/L (21.0-32.0) 09/13/21 05:36 Anion Gap 5 (5-15) 09/13/21 05:36 BUN 28 mg/dL (7-18) H 09/13/21 05:36 Creatinine 1.12 mg/dL (0.70-1.30) 09/13/21 05:36 Est GFR (MDRD) Af Amer 82 mL/min (>60) 09/13/21 05:36 Est GFR (MDRD) Non-Af 68 mL/min (>60) 09/13/21 05:36 BUN/Creatinine Ratio 25.0 RATIO (10-20) H 09/13/21 05:36 Glucose 105 mg/dL (74-106) 09/13/21 05:36 Vancomycin Trough 16.8 ug/mL (5.0-15.0) H 09/13/21 22:37 Microbiology: Microbiology 09/11/21 14:25 Wound Abcess - Leg, Left Gram Stain - Final 09/11/21 14:25 Wound Abcess - Leg, Left Wound Culture - Final Meth. resistant Staph. aureus 09/11/21 14:25 Wound Abcess - Leg, Left Anaerobic Culture - Final No anaerobic bacteria isolated. 09/11/21 14:25 Wound Abcess - Leg, Left Gram Stain - Final 09/11/21 14:25 Wound Abcess - Leg, Left Wound Culture - Final Meth. resistant Staph. aureus 09/11/21 14:25 Wound Abcess - Leg, Left Anaerobic Culture - Final No anaerobic bacteria isolated. 09/10/21 11:40 Blood Culture (Wb) - Right Hand Blood Culture - Preliminary No growth in 48 hours. 09/10/21 11:10 Blood Culture (Wb) - Left Hand Blood Culture - Preliminary No growth in 48 hours. 09/10/21 11:54 Urine, Clean Catch Urine Culture - Final Corynebacterium amycolatum 09/11/21 10:45 Nasal Secretion SARS-CoV-2 Antigen (Rapid) - Final Goal Trough: 15-20 mcg/mL Pharmacy Plan for Drug Dosing: Pharmacy Service will continue to monitor and adjust dosing as required. TROUGH 16.8 AT 11.5 HRS. NO CHANGES FOLLOW UP TROUGH IN 2 DAYS Follow-Up Labs: Trough Vancomycin Labs to be done on [date and time ordered]: 09/15 @ 1978
[2021-09-13] MEDS: Pramipexole Di-HCl 0.5 MG Tablet PO (23:14)
[2021-09-14 02:00] VITALS: BP 137/78; PULSE 76; RESP 18; TEMP 36.6; O2SAT 96
[2021-09-14] MEDS: Acetaminophen 325 MG Tablet 650 MG PO (02:07)
[2021-09-14] MEDS: CARBIDOPA/LEVODOPA CR 50/200 Tablet PO ×2 (05:53→15:24)
[2021-09-14 07:00] LABS: Anion Gap 4 (5-15); BUN 26 mg/dL (7-18); BUN/Creat Ratio 27.6 RATIO (10-20); Calcium,Total 8.1 mg/dL (8.5-10.1); Chloride 103 mmol/L (98-107); Creatinine, Serum 0.94 mg/dL (0.70-1.30); EST Glomerular Filtration Rate 82 mL/min (>60); Est Glom Filt Rate - Afr Amer 100 mL/min (>60); Estimated Creatinine Clearance 63.67 ml/min; Glucose 130 mg/dL (74-106); Potassium 3.5 mmol/L (3.5-5.1); Sodium Level 135 mmol/L (136-145)
[2021-09-14] MEDS: Juven (unflavored) Packet 1 PACKET PO (07:45)
[2021-09-14 07:49] VITALS: BP 142/86; PULSE 70; RESP 18; TEMP 36.6; O2SAT 96
[2021-09-14 08:30] VITALS: O2SAT 97
--- NOTE | 2021-09-14 09:09 | WOUNDNOTE ---
wound photo: left lower leg
[2021-09-14 10:01] VITALS: O2SAT 97
--- NOTE | 2021-09-14 10:02 | PCM.PN.HOSP ---
Subjective Subjective Follow-up on left leg infected hematoma: Patient was seen and examined. He denied any new complains. He has been working with therapy. His was at the bedside. All questions answered. Objective Data Objective Data Vital Signs: Vital Signs Temp Pulse Resp BP Pulse Ox 97.8 F 70 18 142/86 H 96 09/14/21 07:49 09/14/21 07:49 09/14/21 07:49 09/14/21 07:49 09/14/21 07:49 Oxygen Flow Rate (L/min) 2 Oxygen Delivery Method Room Air Weight: 103.2 kg Body Mass Index (BMI) 34.0 Intake & Output: Intake and Output for Last 24 Hours 09/12/21 09/13/21 09/14/21 22:59 23:59 23:59 Intake Total 265 / 265 Output Total 1000 / 1000 Balance -735 / -735 Lab / Micro Data Result Diagrams: 09/13/21 05:36 09/14/21 05:51 Labs: Laboratory Results - last 24 hr 09/13/21 22:37: Vancomycin Trough 16.8 H 09/14/21 05:51: Sodium 135 L, Potassium 3.5, Chloride 103, Carbon Dioxide 28.0, Anion Gap 4 L, BUN 26 H, Creatinine 0.94, Estim Creat Clear Calc 63.67, Est GFR (MDRD) Af Amer 100, Est GFR (MDRD) Non-Af 82, BUN/Creatinine Ratio 27.6 H, Glucose 130 H, Calcium 8.1 L Micro: Microbiology 09/11/21 14:25 Wound Abcess - Leg, Left Gram Stain - Final 09/11/21 14:25 Wound Abcess - Leg, Left Wound Culture - Final Meth. resistant Staph. aureus 09/11/21 14:25 Wound Abcess - Leg, Left Anaerobic Culture - Final No anaerobic bacteria isolated. 09/11/21 14:25 Wound Abcess - Leg, Left Gram Stain - Final 09/11/21 14:25 Wound Abcess - Leg, Left Wound Culture - Final Meth. resistant Staph. aureus 09/11/21 14:25 Wound Abcess - Leg, Left Anaerobic Culture - Final No anaerobic bacteria isolated. 09/10/21 11:40 Blood Culture (Wb) - Right Hand Blood Culture - Preliminary No growth in 48 hours. 09/10/21 11:10 Blood Culture (Wb) - Left Hand Blood Culture - Preliminary No growth in 48 hours. 09/10/21 11:54 Urine, Clean Catch Urine Culture - Final Corynebacterium amycolatum 09/11/21 10:45 Nasal Secretion SARS-CoV-2 Antigen (Rapid) - Final Physical Exam Narrative Physical exam: General: Alert, Oriented x3, Cooperative, No apparent distress, appeared frail HEENT: Atraumatic Oral: Moist Mucosa Neck: Supple Lungs: Diminished to auscultation Cardiovascular: HS I+II, regular, no murmurs Abdomen: Bowel Sounds Present, Soft, Non Tender Extremities: Say wraps to lower extremities Assessment & Plan Assessment/Plan (1) Failure of outpatient treatment: PLAN: 1. Acute infected hematoma/cellulitis, secondary to blunt trauma MRI of the left leg on 09/10/21 showed cellulitis with pooled fluid medially Status post I&D on 09/11/21. Initially on IV Zosyn and vancomycin Wound cultures growing MRSA, currently on vancomycin IV ID consulted; follow-up recommendations 2. Chronic A. fib, rate controlled, off Xarelto on account of recurrent falls Continue on baby aspirin, atenolol and Cardizem CD 120 mg 3. Chronic HFpEF, EF 65%, stable, not in acute exacerbation 4. ALFRED on CKD stage IIIa, resolved Patient was admitted with a creatinine of 1.47 Now with Cr 0.94 5. History of prostate cancer, urethral stricture severe with bladder stone, 2 cm and left UVJ stone and chronic radiation cystitis, s/p cystoscopy, internal urethrotomy, cystoscopy and cystolitholapaxy for bladder stone by urology Needs to follow-up with urology 6. Of his chronic medical conditions are stable.
[2021-09-14] MEDS: Dorzolamide HCL/Timolol 10 ml Bottle 1 DRP OPHTHALMIC (10:21)
[2021-09-14] MEDS: Aspirin E.C. 81 MG Tablet PO (10:22)
[2021-09-14] MEDS: Enoxaparin 40 MG/0.4 ML Syringe SC (10:22)
[2021-09-14] MEDS: dilTIAZem CD 120 MG Capsule PO (10:22)
[2021-09-14] MEDS: Ascorbic Acid 500 MG Tablet PO (10:22)
[2021-09-14] MEDS: Calcium Carb/Vitamin D 1 TABLET Tablet PO (10:22)
[2021-09-14] MEDS: Atenolol 50 MG Tablet PO (10:23)
[2021-09-14] MEDS: Furosemide 40 MG Tablet PO (10:23)
[2021-09-14] MEDS: prednisoLONE eye drops (5 mL) 1 DROP OPTH.BTL 1 DRP LEFT EYE (10:24)
[2021-09-14] MEDS: Memantine Hydrochloride 10 MG Tablet PO (10:25)
[2021-09-14] MEDS: Tamsulosin HCl 0.4 MG Capsule PO (10:29)
[2021-09-14] MEDS: Doxycycline 100 MG CAPSULE PO (12:27)
--- NOTE | 2021-09-14 12:40 | CASEMGMT ---
RN CM updated by first line supervisor that patient will need HHC at discharge. RN CM in to discuss HHC with patient and . Patient was provided a list of HHC providers including quality and resource use data and consistent with the patient?s preferred geographic region, medical needs, and insurance network. The patient?s [facility] provider [facility]. RN CM called and left message for referral. CM will await call back for acceptance.
--- NOTE | 2021-09-14 13:00 | CASEMGMT ---
LUIS ZAYAS received call back from [facility] and they are able to accept the patient with planned start of care for Tuesday. LUIS ZAYAS updated patient and regarding acceptance by [facility] and planned start of care for Tuesday. CM will continue to follow this patient and plan for a safe discharge.
[2021-09-14 13:25] VITALS: O2SAT 92
--- NOTE | 2021-09-14 13:26 | CON.PCM.ID_ITS ---
Assessment & Plan Assessment/Plan (1) Abscess of leg without foot, left: PLAN: MRSA L baca abscess - now s/p I&D. On vanc. Ok for home with po doxy 100mg bid for 4 more days. Reviewed risks and benefits, encouraged covid vaccine for him and his but they are not interested. Will follow as needed, thank you HPI Consult Data Date of Consult: 09/14/21 HPI Narrative HPI Narrative: KAREN MOYA, is a 76 M who presented 09/10 with progressive L baca wound after dropping a tractor tire on it. Had redness, pain, serous drainage. No fever or chills. Saw PCP, given keflex, leg worsened, given bactrim, took a dose then came to hospital. Admitted on vanc, feeling better. Had I&D done. Wound cx with MRSA. Full ROS performed and neg except as noted above. 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 senior care use of drug Other secondary pulmonary hypertension Parkinsons disease Persistent atrial fibrillation Prostate cancer Home Medications calcium carbonate 600 mg-vitamin D3 12.5 mcg (500 unit) capsule 1 cap PO DAILY 09/25/20 [History Last Taken 09/09/21] carbidopa ER 50 mg-levodopa 200 mg tablet,extended release 1 tablet PO TID tablet 09/25/20 [History Last Taken 09/09/21] dorzolamide 22.3 mg-timolol 6.8 mg/mL eye drops 1 drp OPHTHALMIC BID ml 09/25/20 [History Last Taken 09/09/21] prednisolone acetate 1 drp LEFT EYE BID 11/13/20 [History Last Taken 09/09/21] atenolol 50 mg tablet 50 mg PO DAILY tab 04/28/21 [History Last Taken 09/09/21] leuprolide 1 mg/0.2 mL subcutaneous kit 1 mg SUBCUT [id number] ea 04/28/21 [History Last Taken Unknown] pramipexole 0.5 mg tablet 0.5 mg PO QHS PRN 04/28/21 [History Last Taken 09/09/21] ascorbic acid (vitamin C) 500 mg PO DAILY 09/10/21 [History Last Taken 09/09/21] aspirin 81 mg PO DAILY 09/10/21 [History Last Taken 09/09/21] diltiazem HCl 120 mg PO DAILY 09/10/21 [History Last Taken 09/09/21] furosemide 40 mg PO BID 09/10/21 [History Last Taken 09/09/21] latanoprost 1 drp EACH EYE QHS 09/10/21 [History Last Taken 09/09/21] memantine 10 mg PO BID 09/10/21 [History Last Taken 09/09/21] mupirocin 1 applic TOPICAL BID 09/10/21 [History Last Taken Unknown] potassium chloride 20 meq PO DAILY 09/10/21 [History Last Taken 09/09/21] sulfamethoxazole-trimethoprim 1 tab PO BID 09/10/21 [History Last Taken 09/09/21] tamsulosin [Flomax] 0.4 mg PO DAILY 09/10/21 [History Last Taken 09/09/21] Allergy/AdvReac Type Severity Reaction Status Date / Time No Known Allergies Allergy Verified 09/10/21 09:47 Family History Brother Atrial fibrillation Surgical History History of cataract extraction History of hernia repair Social History Smoking Status: Never smoker alcohol intake: never substance use type: does not use caffeine: Yes Type: carbonated beverages Number of servings: 1 Physical Exam Const alert and no apparent distress General Appearance: cooperative Exam Limitations: no limitations HEENT normocephalic and head/scalp atraumatic Eyes PERRL and EOMs intact bilaterally Neck supple and No nodes Resp normal air movement and clear to auscultation bilaterally Cardio regular rate and regular rhythm GI soft to palpation, non-tender and non-distended Extremity General Extremity: Negative for edema Skin Skin Narrative: reviewed photos LLE Neuro CN's II-XII intact bilaterally Lab / Micro Data Result Diagrams: 09/13/21 05:36 09/14/21 05:51 Labs: Laboratory Results - last 24 hr 09/13/21 22:37: Vancomycin Trough 16.8 H 09/14/21 05:51: Sodium 135 L, Potassium 3.5, Chloride 103, Carbon Dioxide 28.0, Anion Gap 4 L, BUN 26 H, Creatinine 0.94, Estim Creat Clear Calc 63.67, Est GFR (MDRD) Af Amer 100, Est GFR (MDRD) Non-Af 82, BUN/Creatinine Ratio 27.6 H, Gl ucose 130 H, Calcium 8.1 L Micro: Microbiology 09/11/21 14:25 Wound Abcess - Leg, Left Gram Stain - Final 09/11/21 14:25 Wound Abcess - Leg, Left Wound Culture - Final Meth. resistant Staph. aureus 09/11/21 14:25 Wound Abcess - Leg, Left Anaerobic Culture - Final No anaerobic bacteria isolated. 09/11/21 14:25 Wound Abcess - Leg, Left Gram Stain - Final 09/11/21 14:25 Wound Abcess - Leg, Left Wound Culture - Final Meth. resistant Staph. aureus 09/11/21 14:25 Wound Abcess - Leg, Left Anaerobic Culture - Final No anaerobic bacteria isolated.
--- NOTE | 2021-09-14 14:12 | DCINST_ITS ---
Discharge Instructions Diet Discharge Diet: Low fat / Low cholesterol and 2000 mg Sodium Diet Activity Discharge Activity: Return to Normal Activity Follow Up Care Test Results: Test results from this visit will be discussed in further detail at your follow-up appointment, if applicable. Discharge Plan Admission Admit Date/Time: 09/10/21 12:51 Primary Reason for Your Visit: Acute left leg abscess Attending Provider: Dodie Wyatt Primary Care Provider: Masoud Rosa Consulting Providers: Dave Dickinson ; Tom Cervantes Instructions Additional Instructions / Restrictions: Complete your antibiotics. You will be discharged with home health with wound care also as well as PT and OT Discharge Orders/Prescriptions Prescriptions: New doxycycline hyclate 100 mg capsule 100 mg PO BID Qty: 8 RF: 0 Discontinued sulfamethoxazole-trimethoprim 800-160 mg tablet 1 tab PO BID RF: 0 No Action atenolol 50 mg tablet 50 mg PO DAILY RF: 0 pramipexole 0.5 mg tablet 0.5 mg PO QHS PRN (Reason: restless leg/parkinsons) RF: 0 carbidopa-levodopa 50-200 mg tablet extended release 1 tablet PO TID RF: 0 dorzolamide-timolol 22.3-6.8 mg/mL drops 1 drp OPHTHALMIC BID RF: 0 calcium carbonate-vitamin D3 [Calcium 600 with Vitamin D3] 600 mg(1,500mg) - 500 unit capsule 1 cap PO DAILY RF: 0 leuprolide 1 mg/0.2 mL kit 1 mg subcut [id number] RF: 0 prednisolone acetate 1 % drops,suspension 1 drp LEFT EYE BID RF: 0 mupirocin 2 % ointment 1 applic TOPICAL BID RF: 0 latanoprost 0.005 % drops 1 drp EACH EYE QHS RF: 0 ascorbic acid (vitamin C) 500 mg Tablet 500 mg PO DAILY RF: 0 memantine 10 mg tablet 10 mg PO BID RF: 0 furosemide 40 mg tablet 40 mg PO BID RF: 0 aspirin 81 mg tablet,delayed release (DR/EC) 81 mg PO DAILY RF: 0 tamsulosin [Flomax] 0.4 mg capsule 0.4 mg PO DAILY RF: 0 diltiazem HCl 120 mg capsule,extended release 24 hr 120 mg PO DAILY RF: 0 potassium chloride 20 mEq tablet extended release 20 meq PO DAILY RF: 0 Referrals / Follow Up: Dave Dickinson DPM [STAFF PHYSICIAN] - Within 1 Week Masoud Rosa MD [Primary Care Provider] - Within 2 Weeks Disposition Disposition (needs filled in before D/C Order can be placed): Home Health Service
--- NOTE | 2021-09-14 14:13 | DS.PCM_ITS ---
Providers Date of Admission: 09/10/21 Date of Discharge: 09/14/21 Primary Care Physician: Dr. Masoud Rosa MD Consultations 09/10/21 16:08 Consult: Podiatry Routine Consulting Provider: Dave Dickinson Reason for Consult: left leg infection possible abscess EMERGENT Consult: No Notified: Yes Date Notified: 09/10/21 Time Notified: 13:18 Method of Notification: Verbal 09/12/21 15:09 Consult: Infectious Disease Routine Consulting Provider: Tom Cervantes Reason for Consult: left leg infected tranumatic hematoma EMERGENT Consult: No Notified: Yes Date Notified: 09/12/21 Time Notified: 12:00 Method of Notification: Verbal Reason For Visit: LEFT LEG WOUND Diagnosis Discharge Diagnosis (1) Failure of outpatient treatment: Status: Acute Code(s): Z78.9 - Other specified health status Medications at Discharge Home Medications calcium carbonate 600 mg-vitamin D3 12.5 mcg (500 unit) capsule 1 cap PO DAILY 09/25/20 carbidopa ER 50 mg-levodopa 200 mg tablet,extended release 1 tablet PO TID tablet 09/25/20 dorzolamide 22.3 mg-timolol 6.8 mg/mL eye drops 1 drp OPHTHALMIC BID ml 09/25/20 prednisolone acetate 1 drp LEFT EYE BID 11/13/20 atenolol 50 mg tablet 50 mg PO DAILY tab 04/28/21 leuprolide 1 mg/0.2 mL subcutaneous kit 1 mg SUBCUT [id number] ea 04/28/21 pramipexole 0.5 mg tablet 0.5 mg PO QHS PRN 04/28/21 ascorbic acid (vitamin C) 500 mg PO DAILY 09/10/21 aspirin 81 mg PO DAILY 09/10/21 diltiazem HCl 120 mg PO DAILY 09/10/21 furosemide 40 mg PO BID 09/10/21 latanoprost 1 drp EACH EYE QHS 09/10/21 memantine 10 mg PO BID 09/10/21 mupirocin 1 applic TOPICAL BID 09/10/21 potassium chloride 20 meq PO DAILY 09/10/21 tamsulosin [Flomax] 0.4 mg PO DAILY 09/10/21 doxycycline hyclate 100 mg PO BID 4 Days #8 tab 09/14/21 Hospital Course Operations None Procedures None Summary of Care Provided Minutes Spent on Discharge: 35 Hospital Course: 76-year-old male with multiple comorbidities who comes in with a left leg swelling, pain and redness pain on August 24 after a tractor tire hit his leg. He had seen his primary care doctor on 31 August and completed 10 days of Keflex. Patient was on Xarelto, that was discontinued because of recurrent falls secondary to Parkinson's disease. 1. Acute infected hematoma/cellulitis, secondary to blunt trauma MRI of the left leg on 09/10/21 showed cellulitis with pooled fluid medially Status post I&D on 09/11/21. Initially on IV Zosyn and vancomycin Wound cultures growing MRSA,managed sequently on IV vancomycin and discharged on doxycycline for 4 more days ID and podiatry were consulted 2. Chronic A. fib, rate controlled, off Xarelto on account of recurrent falls Continue on baby aspirin, atenolol and Cardizem CD 120 mg 3. Chronic HFpEF, EF 65%, stable, not in acute exacerbation 4. ALFRED on CKD stage IIIa, resolved Patient was admitted with a creatinine of 1.47 Now with Cr 0.94 5. History of prostate cancer, urethral stricture severe with bladder stone, 2 cm and left UVJ stone and chronic radiation cystitis, s/p cystoscopy, internal urethrotomy, cystoscopy and cystolitholapaxy for bladder stone by urology Needs to follow-up with urology Physical Exam Narrative See progress note of the day Weight / BMI Weight Weight: 103.2 kg Body Mass Index (BMI) 34.0 ABG / Lab / Microbiology Data Result Diagrams: 09/13/21 05:36 09/14/21 05:51 Laboratory: Laboratory Results - last 24 hr 09/13/21 22:37: Vancomycin Trough 16.8 H 09/14/21 05:51: Sodium 135 L, Potassium 3.5, Chloride 103, Carbon Dioxide 28.0, Anion Gap 4 L, BUN 26 H, Creatinine 0.94, Estim Creat Clear Calc 63.67, Est GFR (MDRD) Af Amer 100, Est GFR (MDRD) Non-Af 82, BUN/Creatinine Ratio 27.6 H, Glucose 130 H, Calcium 8.1 L Microbiology: Microbiology 09/11/21 14:25 Wound Abcess - Leg, Left Gram Stain - Final 09/11/21 14:25 Wound Abcess - Leg, Left Wound Culture - Final Meth. resistant Staph. aureus 09/11/21 14:25 Wound Abcess - Leg, Left Anaerobic Culture - Final No anaerobic bacteria isolated. 09/11/21 14:25 Wound Abcess - Leg, Left Gram Stain - Final 09/11/21 14:25 Wound Abcess - Leg, Left Wound Culture - Final Meth. resistant Staph. aureus 09/11/21 14:25 Wound Abcess - Leg, Left Anaerobic Culture - Final No anaerobic bacteria isolated. 09/10/21 11:40 Blood Culture (Wb) - Right Hand Blood Culture - Preliminary No growth in 48 hours. 09/10/21 11:10 Blood Culture (Wb) - Left Hand Blood Culture - Preliminary No growth in 48 hours. 09/10/21 11:54 Urine, Clean Catch Urine Culture - Final Corynebacterium amycolatum 09/11/21 10:45 Nasal Secretion SARS-CoV-2 Antigen (Rapid) - Final D/C Instructions Discharge Diet: Low fat / Low cholesterol and 2000 mg Sodium Diet Meaningful Use Info Meaningful Use Diagnoses (Choose all that apply): None applicable Discharge Plan Admission Admit Date/Time: 09/10/21 12:51 Primary Reason for Your Visit: Acute left leg abscess Attending Provider: Dodie Wyatt Primary Care Provider: Masoud Rosa Consulting Providers: Dave Dickinson ; Tom Cervantes Instructions Additional Instructions / Restrictions: Complete your antibiotics. You will be discharged with home health with wound care also as well as PT and OT. You will need repeat blood work within a week to check on your kidney function. Discharge Orders/Prescriptions Prescriptions: New doxycycline hyclate 100 mg tablet,delayed release (DR/EC) 100 mg PO BID 4 Days Qty: 8 RF: 0 Continued atenolol 50 mg tablet 50 mg PO DAILY RF: 0 pramipexole 0.5 mg tablet 0.5 mg PO QHS PRN (Reason: restless leg/parkinsons) RF: 0 carbidopa-levodopa 50-200 mg tablet extended release 1 tablet PO TID RF: 0 dorzolamide-timolol 22.3-6.8 mg/mL drops 1 drp OPHTHALMIC BID RF: 0 calcium carbonate-vitamin D3 [Calcium 600 with Vitamin D3] 600 mg(1,500mg) - 500 unit capsule 1 cap PO DAILY RF: 0 leuprolide 1 mg/0.2 mL kit 1 mg subcut [id number] RF: 0 prednisolone acetate 1 % drops,suspension 1 drp LEFT EYE BID RF: 0 mupirocin 2 % ointment 1 applic TOPICAL BID RF: 0 latanoprost 0.005 % drops 1 drp EACH EYE QHS RF: 0 ascorbic acid (vitamin C) 500 mg Tablet 500 mg PO DAILY RF: 0 memantine 10 mg tablet 10 mg PO BID RF: 0 furosemide 40 mg tablet 40 mg PO BID RF: 0 aspirin 81 mg tablet,delayed release (DR/EC) 81 mg PO DAILY RF: 0 tamsulosin [Flomax] 0.4 mg capsule 0.4 mg PO DAILY RF: 0 diltiazem HCl 120 mg capsule,extended release 24 hr 120 mg PO DAILY RF: 0 potassium chloride 20 mEq tablet extended release 20 meq PO DAILY RF: 0 Discontinued sulfamethoxazole-trimethoprim 800-160 mg tablet 1 tab PO BID RF: 0 Referrals / Follow Up: Dave Dickinson DPM [STAFF PHYSICIAN] - Within 1 Week Masoud Rosa MD [Primary Care Provider] - Within 2 Weeks Disposition Disposition (needs filled in before D/C Order can be placed): Home Health Service Charges/Coding Visit Charges Inpatient E&M: 15571 Disch Hosp
[2021-09-14 15:26] VITALS: BP 120/64; PULSE 80; RESP 16; TEMP 36.8; O2SAT 98
== END 2021-09-14 15:33 | disposition home health service (06) | DRG 605 ==
LOC: ED 12:57 → MS3 13:31
PROVIDERS: Podiatrist; Admitting Provider Internal Medicine; Emergency Provider Emergency Medicine; PCP Family Medicine; Visit Provider Internal Medicine
PROC: 0J9P0ZX Drainage of Left Lower Leg Subcutaneous Tissue and Fascia, Open Approach, Diagnostic (ICD-10-PCS; principal; 2021-09-11 13:20)
DX: S80.12XA Contusion of left lower leg, initial encounter (principal); I42.9 Cardiomyopathy, unspecified; I13.0 Hypertensive heart and chronic kidney disease with heart failure and stage 1 through stage 4 chronic kidney disease, or unspecified chronic kidney disease; L02.416 Cutaneous abscess of left lower limb; N17.9 Acute kidney failure, unspecified; I50.32 Chronic diastolic (congestive) heart failure; I48.20 Chronic atrial fibrillation, unspecified; L97.821 Non-pressure chronic ulcer of other part of left lower leg limited to breakdown of skin; L03.116 Cellulitis of left lower limb; I27.29 Other secondary pulmonary hypertension; G20 Parkinson's disease; I50.82 Biventricular heart failure; N18.31 Chronic kidney disease, stage 3a; B95.62 Methicillin resistant Staphylococcus aureus infection as the cause of diseases classified elsewhere; S80.812A Abrasion, left lower leg, initial encounter; Z79.82 Long term (current) use of aspirin; Z85.46 Personal history of malignant neoplasm of prostate; Z79.899 Other long term (current) drug therapy; W20.8XXA Other cause of strike by thrown, projected or falling object, initial encounter
CPT/HCPCS: 36415; 71045; 73590; 73718; 80048; 80053; 80202; 81001; 83605; 83735; 83880; 84100; 84145; 84484; 85025; 85652; 86140; 87040; 87070; 87075; 87077; 87086; 87088; 87186; 87205; 87426; 93005; 93971; 97110; 97162; 97166; 97530; 97535; 97802; 99285; J7030; J7040; J7050; A4216; J1940; J2405

== ENCOUNTER 2021-10-01 15:11 | Outpatient (CLI) | payer MEDICARE, SELFPAY | END 2021-10-01 23:59 | disposition home or self-care (01) | LOC: LAB 15:12 | PROVIDERS: PCP Family Medicine; Referring Provider Urology; Visit Provider Urology | DX: C61 Malignant neoplasm of prostate (principal) | CPT/HCPCS: 36415; 84153 ==

== ENCOUNTER 2021-10-05 09:40 | Outpatient (CLI) | payer MEDICARE, SELFPAY | END 2021-10-05 23:59 | disposition home or self-care (01) | LOC: LABSPEC 10-06 09:41 | PROVIDERS: PCP Family Medicine; Visit Provider Podiatrist | DX: L03.116 Cellulitis of left lower limb (principal) | CPT/HCPCS: 87070; 87075; 87077; 87186; 87205 ==

== ENCOUNTER → 2021-11-20 | Outpatient (CLI) | payer MEDICARE, SELFPAY ==
[2021-11-20 18:58] LABS: Color, Urine Yellow (Yellow); Glucose, Dipstick Normal (Normal); Ketone-Dipstick 5 mg/dl (Negative); Leukocyte Esterase-Dipstick 500 /ul (Negative); Nitrite-Dipstick Positive (Negative); Occult Blood-Urine 50 /ul (Negative); Protein-Dipstick 100 mg/dl (Negative); Specific Gravity, Urine 1.015 (1.002-1.030); Urine Bilirubin Dipstick Negative (Negative); Urine Clarity Cloudy (Clear); Urine Urobilinogen Normal (Normal); Urine pH 6.5 (5.0 - 8.0)
== END | disposition home or self-care (01) ==
PROVIDERS: PCP Family Medicine; Visit Provider Family Medicine
DX: I87.2 Venous insufficiency (chronic) (peripheral) (principal); L97.828 Non-pressure chronic ulcer of other part of left lower leg with other specified severity; L03.116 Cellulitis of left lower limb
CPT/HCPCS: 81002; 87077; 87086; 87088; 87186

== ENCOUNTER 2021-12-01 09:15 | Outpatient (RCR) | payer MEDICARE, SELFPAY ==
[2021-11-10 09:16] VITALS: BP 120/69; PULSE 77; RESP 16; TEMP 35.5; BMI 33.7
--- NOTE | 2021-11-10 09:45 | HP.PCM_ITS ---
History of Present Illness Date of Service: 11/10/21 Chief Complaint: Radiation cystitis. Progress of Wound: This 76-year-old male presents to clinic for follow-up on wound secondary to hematoma. Patient had dropped a tractor tire on his left lower extremity developed a large hematoma which she delayed treatment for and developed an underlying infection which required urgent decompression intraoperatively on 09/11/2021. This was closed primarily. 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 He developed a recurrent infection with draining ulceration to the site wound was cultured again demonstrated MRSA growth he was restarted on doxycycline and continue that for 3 weeks. Patient did suffer 1 adverse reaction from the medication as he went outside and suffered a photosensitivity reaction. This is improving since he has discontinued the medication. Patient denies any constitutional symptoms at this time. Denies any signs or symptoms of DVT. Patient has no other complaints. 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 Other secondary pulmonary hypertension Parkinsons disease Persistent atrial fibrillation Prostate cancer Home Medications calcium carbonate 600 mg-vitamin D3 12.5 mcg (500 unit) capsule 1 cap PO DAILY 09/25/20 [History Last Taken 09/09/21] carbidopa ER 50 mg-levodopa 200 mg tablet,extended release 1 tablet PO TID tablet 09/25/20 [History Last Taken 09/09/21] dorzolamide 22.3 mg-timolol 6.8 mg/mL eye drops 1 - 2 drp OPHTHALMIC BID ml 09/25/20 [History Last Taken 09/09/21] prednisolone acetate 1 drp LEFT EYE DAILY 11/13/20 [History Last Taken 09/09/21] atenolol 50 mg tablet 50 mg PO DAILY tab 04/28/21 [History Last Taken 09/09/21] pramipexole 0.5 mg tablet 0.5 mg PO BID 04/28/21 [History Last Taken 09/09/21] ascorbic acid (vitamin C) 1,000 mg PO DAILY 09/10/21 [History Last Taken 09/09/21] aspirin 81 mg PO DAILY 09/10/21 [History Last Taken 09/09/21] diltiazem HCl 120 mg PO DAILY 09/10/21 [History Last Taken 09/09/21] furosemide 40 mg PO BID 09/10/21 [History Last Taken 09/09/21] latanoprost 1 drp RIGHT EYE QHS 09/10/21 [History Last Taken 09/09/21] memantine 10 mg PO BID 09/10/21 [History Last Taken 09/09/21] potassium chloride 20 meq PO DAILY 09/10/21 [History Last Taken 09/09/21] tamsulosin [Flomax] 0.4 mg PO DAILY 09/10/21 [History Last Taken 09/09/21] acetaminophen [Tylenol Ex Str Rapid Release] 500 - 1,000 mg PO BID PRN 11/10/21 [History Last Taken Unknown] Allergy/AdvReac Type Severity Reaction Status Date / Time No Known Allergies Allergy Verified 11/10/21 09:28 Family History Brother Atrial fibrillation Surgical History History of cataract extraction History of hernia repair Social History Smoking Status: Never smoker alcohol intake: never substance use type: does not use caffeine: Yes Type: carbonated beverages Number of servings: 1 ROS Constitutional Constitutional: Denies change in weight, chills or headache(s) Eyes Eyes: Denies acute decrease in peripheral vision, blindness or change in vision ENT HEENT: Denies bleeding gums, change in voice or epistaxis Cardiovascular Cardiovascular: Denies abdominal pain, chest pain with activity or dyspnea at rest Respiratory/Chest Respiratory/Chest: Denies change in phlegm color, chest congestion or dyspnea on exertion Gastrointestinal Gastrointestinal: Denies bloating, cramping or heartburn Genitourinary Genitourinary: Denies burning urination, difficulty with ejaculations or flank pain Musculoskeletal Musculoskeletal: Denies deformity, limited range of motion or numbness Vital Signs Vital Signs Vital Signs: 11/10/21 09:16 Temperature 95.9 F L Temperature Source Temporal Pulse Rate 77 Respiratory Rate 16 Blood Pressure 120/69 Blood Pressure Mean 86 Blood Pressure Source Monitor Blood Pressure Position Sitting Blood Pressure Location Right Arm Oxygen Delivery Method Room Air Weight Weight: 100.698 kg Body Mass Index (BMI) 33.7 Physical Exam Narrative Patient is alert oriented to person place and time. Patient ambulates unassisted and normal shoe gear. Vascular: Dorsalis pedis posterior tibial pulse palpable bilateral lower extremity capillary fill time brisk to lesser digits. Digital hair growth noted. +2 pitting edema to bilateral lower extremity. Malleoli region. Neurologic: Light touch protective sensation intact to bilateral lower extremity. Dermatologic: Full-thickness wound to incisional site along the anteromedial leg. Additional full-thickness wound noted to the distal anterior lateral leg. These wounds demonstrate 100% granular bases clean skin edges no deep probing undermining or signs of infection. Pre and post debridement measurements document nursing notes. Musculoskeletal: Muscular strength 5 out of 5 to bilateral lower extremity compartments. No pain with calf squeeze. Negative Homans' sign. No gross deformity. Debridement Note Debridement Note Post-Debridement Measurements and Additional Note: Post-Debridement Measurements/Treatment - Nurse 1 - General Ulcer Assessment Start: 11/10/21 09:10 Freq: Status: Active Protocol: .LOWEXT Activity Type Activity Date Activity User E-Sign Co-Sign Detail Recorded Client Recorded Date Recorded By Document 11/10/21 09:16 [facility] [id number] 11/10/21 09:26 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 ) Arrival Mode Ambulatory, Walker Transfer Assistance None Accompanied by Patient Identification Verified (Name & Yes ) Patient Requires Transmission-Based No Precautions Height and Weight Height 5 ft 8 in Weight 100.698 kg Weight in Pounds 222.0 lbs Weight Measurement Method Estimated by Patient Body Mass Index (BMI) 33.7 BMI Classification Obese BSA - Angélica 2.14 Vital Signs Temperature (97.8 F-99.1 F) 95.9 F L Temperature Source Temporal Pulse Rate (60-100) 77 Pulse Location Monitor Respiratory Rate (12-18) 16 Respiratory rate source Observation Oxygen Delivery Method Room Air Blood Pressure (90/60-120/80) 120/69 Blood Pressure Mean 86 Source Monitor Position Sitting Blood Pressure Location Right Arm History Since Last Visit- (Skip if this is Patient's initial visit) Left Footwear Regular Shoe Right Footwear Regular Shoe Pain Scale: 0-10 Numeric Is Patient Pain Free? Yes Lower Extremity Assessment/ Foot Assessment/ Toe Nail Assessment Right -Posterior Tibial Doppler Multiphasic -Dorsalis Pedis Doppler Multiphasic -Extremity Color Pale -Other Deformity No -Prior Foot Ulcer No -Charcot Joint No -Prior Amputation No -Thick Yes -Discolored Yes -Deformed No -Improper Length & Hygeine No Left -Posterior Tibial Doppler Multiphasic -Dorsalis Pedis Doppler Multiphasic -Extremity Color Red -Hair Growth on Legs No -Hair Growth on Toes No -Thick Yes -Discolored Yes -Deformed No -Improper Length & Hygeine No Communication Assessment Preferred language Bur[place]ian Electronic Gluer Required No Able to Read Yes Able to Write Yes Communication Tools None Right Hearing Abillity Hard of Hearing ,Use of Hearing Aid Left Hearing Abillity Hard of Hearing ,Use of Hearing Aid Visual Assistive Devices Glasses Teaching Assessment Preferences Verbal,Written, Audio/Visual, Demonstration Barriers to Learning None Readiness To Learn Excellent Willingness to Engage in Self Management High Activies Readiness to Engage in Self Management High Activities Anxiety Level Calm Cooperation Cooperative Perception Coherent Interest in Health Problem Asks Questions Education Importance Acknowledges Need Does Patient Smoke tobacco or other No substances Smoking Status Never smoker Is Patient Diabetic No Functional Assessment Recent Decline in Ability to Perform Ambulation 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 [id number] 11/10/21 09:26 [facility] 11/10/21 09:16 Wound Center Nurse 1 #1- L HO POST OP -Combined with other wound No -Current Size (cm) - Length 1 -Current Size (cm) - Width 0.9 -Current Size (cm) - Depth 0.1 -Total Square Cm 0.9 -Date of Last Picture (Recall this 11/10/21 field) -Photo Taken Yes -Epithelialization None Present -Tunneling No -Undermining/Tunneling No -Circular Undermining No -Exudate Amt Medium -Exudate Type Serosanguineous -Wound Margin Distinct, Outline Attached -Granulation Amt Medium (34-66%) -Granulation Quality [place] -Slough/Fibrin Yes -Necrosis Amt Medium (34-66%) -Necrotic Tissue Type Adherent Slough -Texture (Alisa-wound Skin Appearance) Assessed, Scarring -Moisture (Alisa-wound Skin Appearance) Assessed, Maceration -Color (Alisa-wound Skin Appearance) Assessed, Erythema,Palor -Temperature (Alisa-wound Skin No Abnormality Appearance) (Pt Warm) -Tenderness on Palpation (Laisa-wound No Skin Appearance) -Ulcer Cleansing Soap and Water -Foul Odor after Cleansing No -Anesthetic Used 4% Lidocaine Solution Lower Limb Edema Present Yes Right Calf (cm) 41.5 Right Ankle (cm) 28.5 Left Calf (cm) 42.5 Left Ankle (cm) 29 WC - Nurse 2 - General Ulcer CM Notes Start: 11/10/21 09:10 Freq: Status: Active Protocol: Activity Type Activity Date Activity User E-Sign Co-Sign Detail Recorded Client Recorded Date Recorded By Document 11/10/21 09:42 SAHARA [id number] 11/10/21 09:45 SAHARA 11/10/21 09:42 Wound Center Nurse 2 #1- L HO POST OP -Time 09:44 -Correct Patient Yes -Correct Side, Site, Position Yes -Correct Procedure Yes -Procedure Performed Yes -Type of Procedure Debridement -Clinical Debridement Subcutaneous -Tissue Removed Subcutaneous -Post Debridement (cm) - Length 1.0 -Post Debridement (cm) - Width 1.0 -Post Debridement (cm) - Depth 0.1 -Total Square (Post) (cm) 1.00 -Area of Debridement (cm) - Length 1.0 -Area of Debridement (cm) - Width 1.0 -Total Square (Area) (cm) 1.00 -Tunneling No -Undermining/Tunneling No -Circular Undermining No -Wound/Ulcer Outcome Not Healed -Ulcer Cleansing Wound Cleanser -Foul Odor after Cleansing No -Bioengineered Tissue No -Bleeding Controlled with Pressure -Treatment Response Procedure Not Tolerated Well -Offloading No -Debridement - Subq, 1st 20sq cm Yes Pain Scale: 0-10 Numeric Is Patient Pain Free? Yes Assessment/Plan Assessment/Plan (1) Non-pressure chronic ulcer of left calf with fat layer exposed: CODE(S): L97.222 - Non-pressure chronic ulcer of left calf with fat layer exposed PLAN: Patient examined evaluated, all findings discussed with patient in detail. Wound is significantly improved x2 at this time. Patient's left lower extremity wounds x2 were excisionally debrided down to including level of subcutaneous tissue using a 5 mm dermal curette, all nonviable tissue removed. Topical anesthesia used. Stasis obtained with light compression. She tolerated procedure well. Wounds at this time were dressed with silver alginate and Unna boot. Patient will have a home health care dressing change x1 in between his next visit in 1 week versus nursing visit dressing change. Will consider any oral antibiotics if any signs of infection should recur. Consider any additional nutritional supplementation, lab work work-up, radiographs, vascular work up, advanced wound care products pending any delays in healing. Patient will follow up in 1 week.
[2021-11-17 09:09] VITALS: BP 122/68; PULSE 84; RESP 16; TEMP 36.3; BMI 33.7
--- NOTE | 2021-11-17 09:44 | PCM.WC.PN ---
History of Present Illness Date of Service: 11/17/21 Chief Complaint: Radiation cystitis. Progress of Wound: This 76-year-old male presents to clinic for follow-up on wound secondary to hematoma. Patient had dropped a tractor tire on his left lower extremity developed a large hematoma which she delayed treatment for and developed an underlying infection which required urgent decompression intraoperatively on 09/11/2021. This was closed primarily. 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 He developed a recurrent infection with draining ulceration to the site wound was cultured again demonstrated MRSA growth he was restarted on doxycycline and continue that for 3 weeks. Patient did suffer 1 adverse reaction from the medication as he went outside and suffered a photosensitivity reaction. This is improving since he has discontinued the medication. Patient denies any constitutional symptoms at this time. Denies any signs or symptoms of DVT. Patient has no other complaints. Objective Data Objective Data Vital Signs: Vital Signs Temp Pulse Resp BP 97.3 F L 84 16 122/68 H 11/17/21 09:09 11/17/21 09:09 11/17/21 09:09 11/17/21 09:09 Oxygen Delivery Method Room Air Weight: 100.698 kg Body Mass Index (BMI) 33.7 Physical Exam Narrative Patient is alert oriented to person place and time. Patient ambulates unassisted and normal shoe gear. Vascular: Dorsalis pedis posterior tibial pulse palpable bilateral lower extremity capillary fill time brisk to lesser digits. Digital hair growth noted. +2 pitting edema to bilateral lower extremity. Malleoli region. Neurologic: Light touch protective sensation intact to bilateral lower extremity. Dermatologic: Full-thickness wound to incisional site along the anteromedial leg. Additional full-thickness wound noted to the distal anterior medial leg. These wounds demonstrate 100% granular bases clean skin edges no deep probing undermining or signs of infection. Pre and post debridement measurements document nursing notes. Musculoskeletal: Muscular strength 5 out of 5 to bilateral lower extremity compartments. No pain with calf squeeze. Negative Homans' sign. No gross deformity. Debridement Note Debridement Note Post-Debridement Measurements and Additional Note: Post-Debridement Measurements/Treatment HERBERT - Nurse 1 - General Ulcer Assessment Start: 11/10/21 09:10 Freq: Status: Active Protocol: LOWEXT Activity Type Activity Date Activity User E-Sign Co-Sign Detail Recorded Client Recorded Date Recorded By Document 11/10/21 09:16 [facility] [id number] 11/10/21 09:26 [facility] Document 11/17/21 09:09 [id number] 11/17/21 09:16 11/10/21 11/17/21 09:16 09:09 WC - Today's Visit Information Type of service Follow-up Visit Follow-up Visit (Physician/EMERGENCY RESPONSE COORDINATOR (Physician/EMERGENCY RESPONSE COORDINATOR ) ) Arrival Mode Ambulatory, Ambulatory Walker Transfer Assistance None None Accompanied by self Patient Identification Verified (Name & Yes Yes ) Patient Requires Transmission-Based No No Precautions Safety Precautions NA Height and Weight Height 5 ft 8 in Weight 100.698 kg Weight in Pounds 222.0 lbs Weight Measurement Method Estimated by Patient Body Mass Index (BMI) 33.7 33.7 BMI Classification Obese Obese BSA - Angélica 2.14 Vital Signs Temperature (97.8 F-99.1 F) 95.9 F L 97.3 F L Temperature Source Temporal Temporal Pulse Rate (60-100) 77 84 Pulse Location Monitor Monitor Respiratory Rate (12-18) 16 16 Respiratory rate source Observation Observation Oxygen Delivery Method Room Air Room Air Blood Pressure (90/60-120/80) 120/69 122/68 H Blood Pressure Mean (mm Hg) 86 86 Source Monitor Monitor Position Sitting Sitting Blood Pressure Location Right Arm Left Arm Have you changed medications since your No last visit? Any new allergies or adverse reactions No Had a fall/change in ADL's that may No increase risk of falls Signs or symptoms of abuse and/or No neglect since last visit Have you been in the hospital since your No last visit? Has dressing in place as prescribed Yes Has compression in place as prescribed Yes Has offloadiing in place as prescribed N/A Experienced any changes in pain level or No management History Since Last Visit- (Skip if this is Patient's initial visit) Left Footwear Regular Shoe Regular Shoe Right Footwear Regular Shoe Regular Shoe Pain Scale: 0-10 Numeric Is Patient Pain Free? Yes Yes Lower Extremity Assessment/ Foot Assessment/ Toe Nail Assessment Right -Posterior Tibial Doppler Multiphasic -Dorsalis Pedis Doppler Multiphasic -Extremity Color Pale -Other Deformity No -Prior Foot Ulcer No -Charcot Joint No -Prior Amputation No -Thick Yes -Discolored Yes -Deformed No -Improper Length & Hygeine No Left -Posterior Tibial Doppler Multiphasic -Dorsalis Pedis Doppler Multiphasic -Extremity Color Red -Hair Growth on Legs No -Hair Growth on Toes No -Thick Yes -Discolored Yes -Deformed No -Improper Length & Hygeine No Communication Assessment Preferred language Pashto [employer] Required No Able to Read Yes Able to Write Yes Communication Tools None Right Hearing Abillity Hard of Hearing ,Use of Hearing Aid Left Hearing Abillity Hard of Hearing ,Use of Hearing Aid Visual Assistive Devices Glasses Teaching Assessment Preferences Verbal,Written, Audio/Visual, Demonstration Barriers to Learning None Readiness To Learn Excellent Willingness to Engage in Self Management High Activies Readiness to Engage in Self Management High Activities Anxiety Level Calm Cooperation Cooperative Perception Coherent Interest in Health Problem Asks Questions Education Importance Acknowledges Need Does Patient Smoke tobacco or other No substances Smoking Status Never smoker Is Patient Diabetic No Functional Assessment Recent Decline in Ability to Perform Ambulation Culture/Yazidi/Hospital Ward Clerk Cultural/Yazidi Needs that may affect No Treatment Plan Teaching: Wound Center *Welcome to the Wound Center -Person Taught Patient, Significant Other -Teaching Method Discussion -Response to teaching Verbalize understanding Welcome to the Wound Care Center Pashto WC - Nurse 1 - General Ulcer Measurement Start: 11/10/21 09:10 Freq: Status: Active Protocol: Activity Type Activity Date Activity User E-Sign Co-Sign Detail Recorded Client Recorded Date Recorded By Document 11/10/21 09:16 [facility] [id number] 11/10/21 09:26 [facility] Document 11/17/21 09:09 [id number] 11/17/21 09:16 11/10/21 11/17/21 09:16 09:09 Wound Center Nurse 1 #1- L HO POST OP -Combined with other wound No No -Current Size (cm) - Length 1 0.1 -Current Size (cm) - Width 0.9 0.1 -Current Size (cm) - Depth 0.1 0.1 -Total Square Cm 0.9 0.01 -Date of Last Picture (Recall this 11/10/21 11/17/21 field) -Photo Taken Yes Yes -Epithelialization None Present None Present -Tunneling No No -Undermining/Tunneling No No -Circular Undermining No No -Exudate Amt Medium Small -Exudate Type Serosanguineous Serosanguineous -Wound Margin Distinct, Flat & Intact Outline Attached -Granulation Amt Medium (34-66%) None Present (0 %) -Granulation Quality [place] N/A -Slough/Fibrin Yes Yes -Necrosis Amt Medium (34-66%) Large (67-100%) -Necrotic Tissue Type Adherent Slough Adherent Slough -Texture (Alisa-wound Skin Appearance) Assessed, Not Assessed, Scarring Localized Edema ,Scarring -Moisture (Alisa-wound Skin Appearance) Assessed, Assessed,Dry/ Maceration Scaly -Color (Alisa-wound Skin Appearance) Assessed, No Abnormality, Erythema,Palor Assessed -Temperature (Alisa-wound Skin No Abnormality No Abnormality Appearance) (Pt Warm) (Pt Warm) -Tenderness on Palpation (Alisa-wound No Yes Skin Appearance) -Ulcer Cleansing Soap and Water Soap and Water -Foul Odor after Cleansing No No -Anesthetic Used 4% Lidocaine 5% Lidocaine Solution Gel Lower Limb Edema Present Yes Yes Right Calf (cm) 41.5 Right Ankle (cm) 28.5 Left Calf (cm) 42.5 39.1 Left Ankle (cm) 29 25.7 WC - Nurse 2 - General Ulcer CM Notes Start: 11/10/21 09:10 Freq: Status: Active Protocol: Activity Type Activity Date Activity User E-Sign Co-Sign Detail Recorded Client Recorded Date Recorded By Document 11/10/21 09:42 SAHARA [id number] 11/10/21 09:45 SAHARA 11/10/21 09:42 Wound Center Nurse 2 #1- L HO POST OP -Time 09:44 -Correct Patient Yes -Correct Side, Site, Position Yes -Correct Procedure Yes -Procedure Performed Yes -Type of Procedure Debridement -Clinical Debridement Subcutaneous -Tissue Removed Subcutaneous -Post Debridement (cm) - Length 1.0 -Post Debridement (cm) - Width 1.0 -Post Debridement (cm) - Depth 0.1 -Total Square (Post) (cm) 1.00 -Area of Debridement (cm) - Length 1.0 -Area of Debridement (cm) - Width 1.0 -Total Square (Area) (cm) 1.00 -Tunneling No -Undermining/Tunneling No -Circular Undermining No -Wound/Ulcer Outcome Not Healed -Ulcer Cleansing Wound Cleanser -Foul Odor after Cleansing No -Bioengineered Tissue No -Bleeding Controlled with Pressure -Treatment Response Procedure Not Tolerated Well -Offloading No -Debridement - Subq, 1st 20sq cm Yes Pain Scale: 0-10 Numeric Is Patient Pain Free? Yes - Nurse 3 - General Ulcer D/C NN Start: 11/10/21 09:10 Freq: Status: Active Protocol: Activity Type Activity Date Activity User E-Sign Co-Sign Detail Recorded Client Recorded Date Recorded By Document 11/10/21 09:57 [facility] [id number] 11/10/21 09:58 [facility] 11/10/21 09:57 Wound Care Nurse 3 #1- L HO POST OP -Ulcer Cleansing Rinsed/ Irrigated with Saline -Foul Odor after Cleansing No -Primary Dressing Applied Aquacel AG 2x2 -Other Covering UNNA BOOT -Aquacel AG 2x2 1 Left -Multi-Layered Wrap Application Unna Boot - Left ($) -Compression Wrap Unna Boot ($) ( single) Treatment Response Procedure Tolerated Well Pain Scale: 0-10 Numeric Is Patient Pain Free? Yes - Visit Discharge Discharge Condition Stable Ambulatory Status Ambulatory, Walker Transportation Private Auto Accompanied by Facility Type Home Health Assessment/Plan Assessment/Plan (1) Non-pressure chronic ulcer of left calf with fat layer exposed: CODE(S): L97.222 - Non-pressure chronic ulcer of left calf with fat layer exposed PLAN: Patient examined evaluated, all findings discussed with patient in detail. Wound is significantly improved x2 at this time. Patient's left lower extremity wounds x2 were excisionally debrided down to including level of subcutaneous tissue using a 5 mm dermal curette, all nonviable tissue removed. Topical anesthesia used. Stasis obtained with light compression. he tolerated procedure well. Wounds at this time were dressed with silver alginate and 3M compression wrap. Patient will have a home health care dressing change x1 in between his next visit in 1 week versus nursing visit dressing change. Will consider any oral antibiotics if any signs of infection should recur. Consider any additional nutritional supplementation, lab work work-up, radiographs, vascular work up, advanced wound care products pending any delays in healing. Patient will follow up in 1 week.
[2021-11-24 09:14] VITALS: BP 123/70; PULSE 83; RESP 18; TEMP 35.9; BMI 33.7
--- NOTE | 2021-11-24 09:37 | PCM.WC.PN ---
History of Present Illness Date of Service: 11/24/21 Chief Complaint: Radiation cystitis. Progress of Wound: This 76-year-old male presents to clinic for follow-up on wound secondary to hematoma. Patient had dropped a tractor tire on his left lower extremity developed a large hematoma which she delayed treatment for and developed an underlying infection which required urgent decompression intraoperatively on 09/11/2021. This was closed primarily. 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 He developed a recurrent infection with draining ulceration to the site wound was cultured again demonstrated MRSA growth he was restarted on doxycycline and continue that for 3 weeks. Patient did suffer 1 adverse reaction from the medication as he went outside and suffered a photosensitivity reaction. This is improving since he has discontinued the medication. Patient denies any constitutional symptoms at this time. Denies any signs or symptoms of DVT. Patient has no other complaints. Objective Data Objective Data Vital Signs: Vital Signs Temp Pulse Resp BP 96.7 F L 83 18 123/70 H 11/24/21 09:14 11/24/21 09:14 11/24/21 09:14 11/24/21 09:14 Oxygen Delivery Method Room Air Weight: 100.698 kg Body Mass Index (BMI) 33.7 Physical Exam Narrative Patient is alert oriented to person place and time. Patient ambulates unassisted and normal shoe gear. Vascular: Dorsalis pedis posterior tibial pulse palpable bilateral lower extremity capillary fill time brisk to lesser digits. Digital hair growth noted. +2 pitting edema to bilateral lower extremity. Malleoli region. Neurologic: Light touch protective sensation intact to bilateral lower extremity. Dermatologic: Full-thickness wound to incisional site along the anteromedial leg at incisional site healing well no underlying or deep probing at this time. No signs of infection. anterosuperior full-thickness ulceration 100% granular base no signs of infection anteroinferior full-thickness wound 100% granular base no signs infection. Fourth ulceration to the anterior medial leg just medial to the incisional site demonstrates 100% granular base no deep probing undermining and no signs of infection. Pre and post debridement measurements document nursing notes. Musculoskeletal: Muscular strength 5 out of 5 to bilateral lower extremity compartments. No pain with calf squeeze. Negative Homans' sign. No gross deformity. Debridement Note Debridement Note Post-Debridement Measurements and Additional Note: Post-Debridement Measurements/Treatment - Nurse 1 - General Ulcer Assessment Start: 11/10/21 09:10 Freq: Status: Active Protocol: NGA Activity Type Activity Date Activity User E-Sign Co-Sign Detail Recorded Client Recorded Date Recorded By Document 11/10/21 09:16 BM [id number] 11/10/21 09:26 BMF Document 11/17/21 09:09 MW [id number] 11/17/21 09:16 MW Document 11/24/21 09:14 JF [id number] 11/24/21 09:17 JF 11/10/21 11/17/21 11/24/21 09:16 09:09 09:14 WC - Today's Visit Information Type of service Follow-up Visit Follow-up Visit Follow-up Visit (Physician/MECHANICAL DRAFTER (Physician/MECHANICAL DRAFTER (Physician/MECHANICAL DRAFTER ) ) ) Arrival Mode Ambulatory, Ambulatory Ambulatory, Walker Walker Transfer Assistance None None Accompanied by self Patient Identification Verified (Name & Yes Yes Yes ) Patient Requires Transmission-Based No No No Precautions Safety Precautions NA Height and Weight Height 5 ft 8 in Weight 100.698 kg Weight in Pounds 222.0 lbs Weight Measurement Method Estimated by Patient Body Mass Index (BMI) 33.7 33.7 33.7 BMI Classification Obese Obese Obese BSA - Angélica 2.14 Vital Signs Temperature (97.8 F-99.1 F) 95.9 F L 97.3 F L 96.7 F L Temperature Source Temporal Temporal Temporal Pulse Rate (60-100) 77 84 83 Pulse Location Monitor Monitor Monitor Respiratory Rate (12-18) 16 16 18 Respiratory rate source Observation Observation Observation Oxygen Delivery Method Room Air Room Air Blood Pressure (90/60-120/80) 120/69 122/68 H 123/70 H Blood Pressure Mean (mm Hg) 86 86 87 Source Monitor Monitor Monitor Position Sitting Sitting Semi-Fowlers Blood Pressure Location Right Arm Left Arm Left Arm Have you changed medications since your No No last visit? Any new allergies or adverse reactions No No Had a fall/change in ADL's that may No No increase risk of falls Signs or symptoms of abuse and/or No No neglect since last visit Have you been in the hospital since your No No last visit? Has dressing in place as prescribed Yes Yes Has compression in place as prescribed Yes Yes Has offloadiing in place as prescribed N/A N/A Experienced any changes in pain level or No No management History Since Last Visit- (Skip if this is Patient's initial visit) Left Footwear Regular Shoe Regular Shoe Regular Shoe Right Footwear Regular Shoe Regular Shoe Regular Shoe Pain Scale: 0-10 Numeric Is Patient Pain Free? Yes Yes Yes Lower Extremity Assessment/ Foot Assessment/ Toe Nail Assessment Right -Posterior Tibial Doppler Multiphasic -Dorsalis Pedis Doppler Multiphasic -Extremity Color Pale -Other Deformity No -Prior Foot Ulcer No -Charcot Joint No -Prior Amputation No -Thick Yes -Discolored Yes -Deformed No -Improper Length & Hygeine No Left -Posterior Tibial Doppler Multiphasic -Dorsalis Pedis Doppler Multiphasic -Extremity Color Red -Hair Growth on Legs No -Hair Growth on Toes No -Thick Yes -Discolored Yes -Deformed No -Improper Length & Hygeine No Communication Assessment Preferred language Faroese English Professor Required No Able to Read Yes Able to Write Yes Communication Tools None Right Hearing Abillity Hard of Hearing ,Use of Hearing Aid Left Hearing Abillity Hard of Hearing ,Use of Hearing Aid Visual Assistive Devices Glasses Teaching Assessment Preferences Verbal,Written, Audio/Visual, Demonstration Barriers to Learning None Readiness To Learn Excellent Willingness to Engage in Self Management High Activies Readiness to Engage in Self Management High Activities Anxiety Level Calm Cooperation Cooperative Perception Coherent Interest in Health Problem Asks Questions Education Importance Acknowledges Need Does Patient Smoke tobacco or other No substances Smoking Status Never smoker Is Patient Diabetic No Functional Assessment Recent Decline in Ability to Perform Ambulation Culture/Oriental Orthodox/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 Cultural/Oriental Orthodox Needs that may affect No Treatment Plan Teaching: Wound Center *Welcome to the Wound Center -Person Taught Patient, Significant Other -Teaching Method Discussion -Response to teaching Verbalize understanding Welcome to the Wound Care Center English GODINEZ - Nurse 1 - General Ulcer Measurement Start: 11/10/21 09:10 Freq: Status: Active Protocol: Activity Type Activity Date Activity User E-Sign Co-Sign Detail Recorded Client Recorded Date Recorded By Document 11/10/21 09:16 [facility] [id number] 11/10/21 09:26 [facility] Document 11/17/21 09:09 [id number] 11/17/21 09:16 MW Document 11/24/21 09:14 [id number] 11/24/21 09:17 JF 11/10/21 11/17/21 11/24/21 09:16 09:09 09:14 Wound Center Nurse 1 2-left inferior baca ulcer -Combined with other wound No -Current Size (cm) - Length 1.0 -Current Size (cm) - Width 1.2 -Current Size (cm) - Depth 0.1 -Total Square Cm 1.20 -Photo Taken No -Epithelialization Medium 34-66% -Tunneling No -Undermining/Tunneling No -Circular Undermining No -Exudate Amt Small -Exudate Type Serosanguineous -Wound Margin Flat & Intact -Granulation Amt Large (67-100%) -Granulation Quality Red -Slough/Fibrin Yes -Necrosis Amt Small (1-33%) -Necrotic Tissue Type Adherent Slough -Structure Exposed N/A -Texture (Alisa-wound Skin Appearance) Assessed, Localized Edema -Moisture (Alisa-wound Skin Appearance) Assessed,Dry/ Scaly -Color (Alisa-wound Skin Appearance) Assessed -Temperature (Alisa-wound Skin No Abnormality Appearance) (Pt Warm) -Tenderness on Palpation (Alisa-wound No Skin Appearance) -Ulcer Cleansing Wound Cleanser -Foul Odor after Cleansing No -Anesthetic Used 4% Lidocaine Solution #1- L BACA POST OP superior -Combined with other wound No No -Current Size (cm) - Length 1 0.1 -Current Size (cm) - Width 0.9 0.1 -Current Size (cm) - Depth 0.1 0.1 -Total Square Cm 0.9 0.01 -Date of Last Picture (Recall this 11/10/21 11/17/21 field) -Photo Taken Yes Yes -Epithelialization None Present None Present -Tunneling No No -Undermining/Tunneling No No -Circular Undermining No No -Exudate Amt Medium Small -Exudate Type Serosanguineous Serosanguineous -Wound Margin Distinct, Flat & Intact Outline Attached -Granulation Amt Medium (34-66%) None Present (0 %) -Granulation Quality [place] N/A -Slough/Fibrin Yes Yes -Necrosis Amt Medium (34-66%) Large (67-100%) -Necrotic Tissue Type Adherent Slough Adherent Slough -Texture (Alisa-wound Skin Appearance) Assessed, Not Assessed, Scarring Localized Edema ,Scarring -Moisture (Alisa-wound Skin Appearance) Assessed, Assessed,Dry/ Maceration Scaly -Color (Alisa-wound Skin Appearance) Assessed, No Abnormality, Erythema,Palor Assessed -Temperature (Alisa-wound Skin No Abnormality No Abnormality Appearance) (Pt Warm) (Pt Warm) -Tenderness on Palpation (Alisa-wound No Yes Skin Appearance) -Ulcer Cleansing Soap and Water Soap and Water -Foul Odor after Cleansing No No -Anesthetic Used 4% Lidocaine 5% Lidocaine Solution Gel Lower Limb Edema Present Yes Yes Yes Right Calf (cm) 41.5 Right Ankle (cm) 28.5 Left Calf (cm) 42.5 39.1 40.7 Left Ankle (cm) 29 25.7 27.1 WC - Nurse 2 - General Ulcer CM Notes Start: 11/10/21 09:10 Freq: Status: Active Protocol: Activity Type Activity Date Activity User E-Sign Co-Sign Detail Recorded Client Recorded Date Recorded By Document 11/10/21 09:42 [id number] 11/10/21 09:45 Document 11/17/21 09:40 [id number] 11/17/21 09:47 11/10/21 11/17/21 09:42 09:40 Wound Center Nurse 2 2-left inferior baca ulcer -Time 09:43 -Correct Patient Yes -Correct Side, Site, Position Yes -Correct Procedure Yes -Procedure Performed Yes -Type of Procedure Debridement -Clinical Debridement Subcutaneous -Tissue Removed Subcutaneous -Post Debridement (cm) - Length 1.2 -Post Debridement (cm) - Width 0.5 -Post Debridement (cm) - Depth 0.1 -Total Square (Post) (cm) 0.60 -Area of Debridement (cm) - Length 1.2 -Area of Debridement (cm) - Width 0.5 -Total Square (Area) (cm) 0.60 -Tunneling No -Undermining/Tunneling No -Circular Undermining No -Wound/Ulcer Outcome Not Healed -Ulcer Cleansing Rinsed/ Irrigated with Saline -Foul Odor after Cleansing No -Bioengineered Tissue No -Bleeding Controlled with Pressure -Treatment Response Procedure Tolerated Well -Offloading No -Debridement - Subq, 1st 20sq cm No #1- L BACA POST OP superior -Time 09:44 09:40 -Correct Patient Yes Yes -Correct Side, Site, Position Yes Yes -Correct Procedure Yes Yes -Procedure Performed Yes Yes -Type of Procedure Debridement Debridement -Clinical Debridement Subcutaneous Subcutaneous -Tissue Removed Subcutaneous Subcutaneous -Post Debridement (cm) - Length 1.0 0.6 -Post Debridement (cm) - Width 1.0 0.3 -Post Debridement (cm) - Depth 0.1 0.2 -Total Square (Post) (cm) 1.00 0.18 -Area of Debridement (cm) - Length 1.0 0.6 -Area of Debridement (cm) - Width 1.0 0.3 -Total Square (Area) (cm) 1.00 0.18 -Tunneling No No -Undermining/Tunneling No No -Circular Undermining No No -Wound/Ulcer Outcome Not Healed Not Healed -Ulcer Cleansing Wound Cleanser Rinsed/ Irrigated with Saline -Foul Odor after Cleansing No No -Bioengineered Tissue No No -Bleeding Controlled with Pressure Pressure -Treatment Response Procedure Not Procedure Tolerated Well Tolerated Well -Offloading No No -Debridement - Subq, 1st 20sq cm Yes Yes Pain Scale: 0-10 Numeric Is Patient Pain Free? Yes Yes WC - Nurse 3 - General Ulcer D/C NN Start: 11/10/21 09:10 Freq: Status: Active Protocol: Activity Type Activity Date Activity User E-Sign Co-Sign Detail Recorded Client Recorded Date Recorded By Document 11/10/21 09:57 [facility] [id number] 11/10/21 09:58 [facility] Document 11/17/21 09:55 [facility] [id number] 11/17/21 09:56 [facility] 11/10/21 11/17/21 09:57 09:55 Wound Care Nurse 3 2-left inferior baca ulcer -Ulcer Cleansing Rinsed/ Irrigated with Saline -Foul Odor after Cleansing No -Primary Dressing Applied Aquacel AG 2x2 -Primary Dressing Covered/Secured with Dry Gauze -Other Covering DRSG PER KR COMPLIANCE TESTING ANALYST -Aquacel AG 2x2 1 #1- L BACA POST OP superior -Ulcer Cleansing Rinsed/ Rinsed/ Irrigated with Irrigated with Saline Saline -Foul Odor after Cleansing No No -Primary Dressing Applied Aquacel AG 2x2 Aquacel AG 2x2 -Other Dressing DRSG PER KR COMPLIANCE TESTING ANALYST -Primary Dressing Covered/Secured with Dry Gauze -Other Covering UNNA BOOT -Aquacel AG 2x2 1 0 Left -Multi-Layered Wrap Application Unna Boot - Multi-Layer Left ($) Comp - Left ($) -Compression Wrap Unna Boot ($) ( single) -Other PER KR COMPLIANCE TESTING ANALYST Treatment Response Procedure Procedure Tolerated Well Tolerated Well Pain Scale: 0-10 Numeric Is Patient Pain Free? Yes Yes WC - Visit Discharge Discharge Condition Stable Stable Ambulatory Status Ambulatory, Ambulatory Walker Transportation Private Auto Private Auto Accompanied by Facility Type Home Health Assessment/Plan Assessment/Plan (1) Non-pressure chronic ulcer of left calf with fat layer exposed: CODE(S): L97.222 - Non-pressure chronic ulcer of left calf with fat layer exposed PLAN: Patient examined evaluated, all findings discussed with patient in detail. Wound is significantly improved x2 at this time. 2 new wounds from Unna boot. Patient's left lower extremity wounds x2 were excisionally debrided down to including level of subcutaneous tissue using a 5 mm dermal curette, all nonviable tissue removed. Topical anesthesia used. Stasis obtained with light compression. he tolerated procedure well. Wounds at this time were dressed with silver alginate and 3M compression wrap. Patient will continue with 3M compression wrap and have a dressing change in between. Will consider any oral antibiotics if any signs of infection should recur. Consider any additional nutritional supplementation, lab work work-up, radiographs, vascular work up, advanced wound care products pending any delays in healing. Patient will follow up in 1 week.
[2021-12-01 09:25] VITALS: BP 122/78; PULSE 85; TEMP 36.6; BMI 33.7
--- NOTE | 2021-12-01 09:43 | PCM.WC.PN ---
History of Present Illness Date of Service: 12/01/21 Chief Complaint: Radiation cystitis. Progress of Wound: This 76-year-old male presents to clinic for follow-up on wound secondary to hematoma. Patient had dropped a tractor tire on his left lower extremity developed a large hematoma which she delayed treatment for and developed an underlying infection which required urgent decompression intraoperatively on 09/11/2021. This was closed primarily. 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 He developed a recurrent infection with draining ulceration to the site wound was cultured again demonstrated MRSA growth he was restarted on doxycycline and continue that for 3 weeks. Patient did suffer 1 adverse reaction from the medication as he went outside and suffered a photosensitivity reaction. This is improving since he has discontinued the medication. Patient denies any constitutional symptoms at this time. Denies any signs or symptoms of DVT. Patient has no other complaints. No new changes today. Objective Data Objective Data Vital Signs: Vital Signs Temp Pulse Resp BP 97.8 F 85 18 122/78 H 12/01/21 09:25 12/01/21 09:25 11/24/21 09:14 12/01/21 09:25 Oxygen Delivery Method Room Air Weight: 100.698 kg Body Mass Index (BMI) 33.7 Physical Exam Narrative Patient is alert oriented to person place and time. Patient ambulates unassisted and normal shoe gear. Vascular: Dorsalis pedis posterior tibial pulse palpable bilateral lower extremity capillary fill time brisk to lesser digits. Digital hair growth noted. +2 pitting edema to bilateral lower extremity. Malleoli region. Neurologic: Light touch protective sensation intact to bilateral lower extremity. Dermatologic: Full-thickness wound to incisional site along the anteromedial leg at incisional site-healed. No signs of infection. anterosuperior full-thickness ulceration-healed. Anteroinferior full-thickness wound 100% granular base no signs infection. Fourth ulceration to the anterior medial leg healed. Pre and post debridement measurements document nursing notes. Musculoskeletal: Muscular strength 5 out of 5 to bilateral lower extremity compartments. No pain with calf squeeze. Negative Homans' sign. No gross deformity. Debridement Note Debridement Note Post-Debridement Measurements and Additional Note: Post-Debridement Measurements/Treatment WC - Nurse 1 - General Ulcer Assessment Start: 05/10/22 09:10 Freq: Status: Active Protocol: WC.LOWEXT Activity Type Activity Date Activity User E-Sign Co-Sign Detail Recorded Client Recorded Date Recorded By Document 11/10/21 09:16 BM [id number] 11/10/21 09:26 BMF Document 11/17/21 09:09 MW [id number] 11/17/21 09:16 MW Document 11/24/21 09:14 JF [id number] 11/24/21 09:17 JF Document 12/01/21 09:25 KR [id number] 12/01/21 09:28 KR 11/10/21 11/17/21 11/24/21 09:16 09:09 09:14 WC - Today's Visit Information Type of service Follow-up Visit Follow-up Visit Follow-up Visit (Physician/CONE MACHINE FEEDER (Physician/CONE MACHINE FEEDER (Physician/CONE MACHINE FEEDER ) ) ) Arrival Mode Ambulatory, Ambulatory Ambulatory, Walker Walker Transfer Assistance None None Accompanied by self Patient Identification Verified (Name & Yes Yes Yes ) Patient Requires Transmission-Based No No No Precautions Safety Precautions NA Height and Weight Height 5 ft 8 in Weight 100.698 kg Weight in Pounds 222.0 lbs Weight Measurement Method Estimated by Patient Body Mass Index (BMI) 33.7 33.7 33.7 BMI Classification Obese Obese Obese BSA - Angélica 2.14 Vital Signs Temperature (97.8 F-99.1 F) 95.9 F L 97.3 F L 96.7 F L Temperature Source Temporal Temporal Temporal Pulse Rate (60-100) 77 84 83 Pulse Location Monitor Monitor Monitor Respiratory Rate (12-18) 16 16 18 Respiratory rate source Observation Observation Observation Oxygen Delivery Method Room Air Room Air Blood Pressure (90/60-120/80) 120/69 122/68 H 123/70 H Blood Pressure Mean (mm Hg) 86 86 87 Source Monitor Monitor Monitor Position Sitting Sitting Semi-Fowlers Blood Pressure Location Right Arm Left Arm Left Arm Have you changed medications since your No No last visit? Any new allergies or adverse reactions No No Had a fall/change in ADL's that may No No increase risk of falls Signs or symptoms of abuse and/or No No neglect since last visit Have you been in the hospital since your No No last visit? Has dressing in place as prescribed Yes Yes Has compression in place as prescribed Yes Yes Has offloadiing in place as prescribed N/A N/A Experienced any changes in pain level or No No management History Since Last Visit- (Skip if this is Patient's initial visit) Left Footwear Regular Shoe Regular Shoe Regular Shoe Right Footwear Regular Shoe Regular Shoe Regular Shoe Pain Scale: 0-10 Numeric Is Patient Pain Free? Yes Yes Yes Lower Extremity Assessment/ Foot Assessment/ Toe Nail Assessment Right -Posterior Tibial Doppler Multiphasic -Dorsalis Pedis Doppler Multiphasic -Extremity Color Pale -Other Deformity No -Prior Foot Ulcer No -Charcot Joint No -Prior Amputation No -Thick Yes -Discolored Yes -Deformed No -Improper Length & Hygeine No Left -Posterior Tibial Doppler Multiphasic -Dorsalis Pedis Doppler Multiphasic -Extremity Color Red -Hair Growth on Legs No -Hair Growth on Toes No -Thick Yes -Discolored Yes -Deformed No -Improper Length & Hygeine No Communication Assessment Preferred language [place] Islander President Educational Institution Required No Able to Read Yes Able to Write Yes Communication Tools None Right Hearing Abillity Hard of Hearing ,Use of Hearing Aid Left Hearing Abillity Hard of Hearing ,Use of Hearing Aid Visual Assistive Devices Glasses Teaching Assessment Preferences Verbal,Written, Audio/Visual, Demonstration Barriers to Learning None Readiness To Learn Excellent Willingness to Engage in Self Management High Activies Readiness to Engage in Self Management High Activities Anxiety Level Calm Cooperation Cooperative Perception Coherent Interest in Health Problem Asks Questions Education Importance Acknowledges Need Does Patient Smoke tobacco or other No substances Smoking Status Never smoker Is Patient Diabetic No Functional Assessment Recent Decline in Ability to Perform Ambulation 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 Cultural/Oriental Orthodox Needs that may affect No Treatment Plan Teaching: Wound Center *Welcome to the Wound Center -Person Taught Patient, Significant Other -Teaching Method Discussion -Response to teaching Verbalize understanding Welcome to the Wound Care Center [place] Islander 12/01/21 09:25 WC - Today's Visit Information Type of service Follow-up Visit (Physician/CONE MACHINE FEEDER ) Arrival Mode Ambulatory,Cane Transfer Assistance Accompanied by Patient Identification Verified (Name & Yes ) Patient Requires Transmission-Based Precautions Safety Precautions Height and Weight Height Weight Weight in Pounds Weight Measurement Method Body Mass Index (BMI) 33.7 BMI Classification Obese BSA - Angélica Vital Signs Temperature (97.8 F-99.1 F) 97.8 F Temperature Source Temporal Pulse Rate (60-100) 85 Pulse Location Monitor Respiratory Rate (12-18) Respiratory rate source Oxygen Delivery Method Blood Pressure (90/60-120/80) 122/78 H Blood Pressure Mean (mm Hg) 92 Source Monitor Position Sitting Blood Pressure Location Right Arm Have you changed medications since your No last visit? Any new allergies or adverse reactions No Had a fall/change in ADL's that may No increase risk of falls Signs or symptoms of abuse and/or No neglect since last visit Have you been in the hospital since your No last visit? Has dressing in place as prescribed Yes Has compression in place as prescribed Yes Has offloadiing in place as prescribed No Experienced any changes in pain level or No management History Since Last Visit- (Skip if this is Patient's initial visit) Left Footwear Regular Shoe Right Footwear Regular Shoe Pain Scale: 0-10 Numeric Is Patient Pain Free? Yes Lower Extremity Assessment/ Foot Assessment/ Toe Nail Assessment Right -Posterior Tibial Doppler -Dorsalis Pedis Doppler -Extremity Color -Other Deformity -Prior Foot Ulcer -Charcot Joint -Prior Amputation -Thick -Discolored -Deformed -Improper Length & Hygeine Left -Posterior Tibial Doppler -Dorsalis Pedis Doppler -Extremity Color -Hair Growth on Legs -Hair Growth on Toes -Thick -Discolored -Deformed -Improper Length & Hygeine Communication Assessment Preferred speech and language specialist Required Able to Read Able to Write Communication Tools Right Hearing Abillity Left Hearing Abillity Visual Assistive Devices Teaching Assessment Preferences Barriers to Learning Readiness To Learn Willingness to Engage in Self Management Activies Readiness to Engage in Self Management Activities Anxiety Level Cooperation Perception Interest in Health Problem Education Importance Does Patient Smoke tobacco or other substances Smoking Status Is Patient Diabetic Functional Assessment Recent Decline in Ability to Perform 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 Cultural/Oriental Orthodox Needs that may affect Treatment Plan Teaching: Wound Center *Welcome to the Wound Center -Person Taught -Teaching Method -Response to teaching Welcome to the Wound Care Center WC - Nurse 1 - General Ulcer Measurement Start: 11/10/21 09:10 Freq: Status: Active Protocol: Activity Type Activity Date Activity User E-Sign Co-Sign Detail Recorded Client Recorded Date Recorded By Document 11/10/21 09:16 [facility] [id number] 11/10/21 09:26 [facility] Document 11/17/21 09:09 MW [id number] 11/17/21 09:16 MW Document 11/24/21 09:14 JF [id number] 11/24/21 09:17 JF Document 12/01/21 09:25 KR [id number] 12/01/21 09:28 KR 11/10/21 11/17/21 11/24/21 09:16 09:09 09:14 Wound Center Nurse 1 3-left medial leg -Current Size (cm) - Length -Current Size (cm) - Width -Current Size (cm) - Depth -Total Square Cm 2-left inferior baca ulcer -Combined with other wound No -Current Size (cm) - Length 1.0 -Current Size (cm) - Width 1.2 -Current Size (cm) - Depth 0.1 -Total Square Cm 1.20 -Photo Taken No -Epithelialization Medium 34-66% -Tunneling No -Undermining/Tunneling No -Circular Undermining No -Exudate Amt Small -Exudate Type Serosanguineous -Wound Margin Flat & Intact -Granulation Amt Large (67-100%) -Granulation Quality Red -Slough/Fibrin Yes -Necrosis Amt Small (1-33%) -Necrotic Tissue Type Adherent Slough -Structure Exposed N/A -Texture (Alisa-wound Skin Appearance) Assessed, Localized Edema -Moisture (Alisa-wound Skin Appearance) Assessed,Dry/ Scaly -Color (Alisa-wound Skin Appearance) Assessed -Temperature (Alisa-wound Skin No Abnormality Appearance) (Pt Warm) -Tenderness on Palpation (Alisa-wound No Skin Appearance) -Ulcer Cleansing Wound Cleanser -Foul Odor after Cleansing No -Anesthetic Used 4% Lidocaine Solution #1- L BACA POST OP superior -Combined with other wound No No -Current Size (cm) - Length 1 0.1 -Current Size (cm) - Width 0.9 0.1 -Current Size (cm) - Depth 0.1 0.1 -Total Square Cm 0.9 0.01 -Date of Last Picture (Recall this 11/10/21 11/17/21 field) -Photo Taken Yes Yes -Epithelialization None Present None Present -Tunneling No No -Undermining/Tunneling No No -Circular Undermining No No -Exudate Amt Medium Small -Exudate Type Serosanguineous Serosanguineous -Wound Margin Distinct, Flat & Intact Outline Attached -Granulation Amt Medium (34-66%) None Present (0 %) -Granulation Quality [place] N/A -Slough/Fibrin Yes Yes -Necrosis Amt Medium (34-66%) Large (67-100%) -Necrotic Tissue Type Adherent Slough Adherent Slough -Texture (Alisa-wound Skin Appearance) Assessed, Not Assessed, Scarring Localized Edema ,Scarring -Moisture (Alisa-wound Skin Appearance) Assessed, Assessed,Dry/ Maceration Scaly -Color (Alisa-wound Skin Appearance) Assessed, No Abnormality, Erythema,Palor Assessed -Temperature (Alisa-wound Skin No Abnormality No Abnormality Appearance) (Pt Warm) (Pt Warm) -Tenderness on Palpation (Alisa-wound No Yes Skin Appearance) -Ulcer Cleansing Soap and Water Soap and Water -Foul Odor after Cleansing No No -Anesthetic Used 4% Lidocaine 5% Lidocaine Solution Gel Lower Limb Edema Present Yes Yes Yes Right Calf (cm) 41.5 Right Ankle (cm) 28.5 Left Calf (cm) 42.5 39.1 40.7 Left Ankle (cm) 29 25.7 27.1 12/01/21 09:25 Wound Center Nurse 1 3-left medial leg -Current Size (cm) - Length 0.1 -Current Size (cm) - Width 0.1 -Current Size (cm) - Depth 0.1 -Total Square Cm 0.01 2-left inferior baca ulcer -Combined with other wound -Current Size (cm) - Length 1.4 -Current Size (cm) - Width 2 -Current Size (cm) - Depth 0.1 -Total Square Cm 2.8 -Photo Taken -Epithelialization -Tunneling -Undermining/Tunneling -Circular Undermining -Exudate Amt Small -Exudate Type Serosanguineous -Wound Margin Distinct, Outline Attached -Granulation Amt Small (1-33%) -Granulation Quality [place] -Slough/Fibrin -Necrosis Amt None Present (0 %) -Necrotic Tissue Type -Structure Exposed -Texture (Alisa-wound Skin Appearance) Assessed, Scarring -Moisture (Alisa-wound Skin Appearance) No Abnormality, Assessed -Color (Alisa-wound Skin Appearance) No Abnormality, Assessed -Temperature (Alisa-wound Skin No Abnormality Appearance) (Pt Warm) -Tenderness on Palpation (Alisa-wound No Skin Appearance) -Ulcer Cleansing Rinsed/ Irrigated with Saline -Foul Odor after Cleansing No -Anesthetic Used 5% Lidocaine Gel #1- L BACA POST OP superior -Combined with other wound -Current Size (cm) - Length 0.1 -Current Size (cm) - Width 0.1 -Current Size (cm) - Depth 0.1 -Total Square Cm 0.01 -Date of Last Picture (Recall this field) -Photo Taken -Epithelialization -Tunneling -Undermining/Tunneling -Circular Undermining -Exudate Amt -Exudate Type -Wound Margin -Granulation Amt -Granulation Quality -Slough/Fibrin -Necrosis Amt -Necrotic Tissue Type -Texture (Alisa-wound Skin Appearance) -Moisture (Alisa-wound Skin Appearance) -Color (Alisa-wound Skin Appearance) -Temperature (Alisa-wound Skin Appearance) -Tenderness on Palpation (Alisa-wound Skin Appearance) -Ulcer Cleansing -Foul Odor after Cleansing -Anesthetic Used Lower Limb Edema Present Right Calf (cm) Right Ankle (cm) Left Calf (cm) Left Ankle (cm) WC - Nurse 2 - General Ulcer CM Notes Start: 11/10/21 09:10 Freq: Status: Active Protocol: Activity Type Activity Date Activity User E-Sign Co-Sign Detail Recorded Client Recorded Date Recorded By Document 11/10/21 09:42 [id number] 11/10/21 09:45 Document 11/17/21 09:40 [id number] 11/17/21 09:47 Document 11/24/21 09:30 [id number] 11/24/21 09:56 Document 12/01/21 09:36 [id number] 12/01/21 09:40 11/10/21 11/17/21 11/24/21 09:42 09:40 09:30 Wound Center Nurse 2 3-left medial leg -Time 09:35 -Correct Patient Yes -Correct Side, Site, Position Yes -Correct Procedure Yes -Procedure Performed Yes -Type of Procedure Debridement -Clinical Debridement Subcutaneous -Tissue Removed Subcutaneous -Post Debridement (cm) - Length 1.7 -Post Debridement (cm) - Width 0.6 -Post Debridement (cm) - Depth 0.1 -Total Square (Post) (cm) 1.02 -Area of Debridement (cm) - Length 1.7 -Area of Debridement (cm) - Width 0.6 -Total Square (Area) (cm) 1.02 -Tunneling No -Undermining/Tunneling No -Circular Undermining No -Wound/Ulcer Outcome Not Healed -Ulcer Cleansing Rinsed/ Irrigated with Saline -Foul Odor after Cleansing No -Bioengineered Tissue No -Bleeding Controlled with Pressure -Treatment Response Procedure Tolerated Well -Offloading No -Debridement - Subq, 1st 20sq cm Yes 2-left inferior baca ulcer -Time 09:43 09:31 -Correct Patient Yes Yes -Correct Side, Site, Position Yes Yes -Correct Procedure Yes Yes -Procedure Performed Yes Yes -Type of Procedure Debridement Debridement -Clinical Debridement Subcutaneous Subcutaneous -Tissue Removed Subcutaneous Subcutaneous -Post Debridement (cm) - Length 1.2 0.5 -Post Debridement (cm) - Width 0.5 0.2 -Post Debridement (cm) - Depth 0.1 0.1 -Total Square (Post) (cm) 0.60 0.10 -Area of Debridement (cm) - Length 1.2 0.5 -Area of Debridement (cm) - Width 0.5 0.2 -Total Square (Area) (cm) 0.60 0.10 -Tunneling No No -Undermining/Tunneling No No -Circular Undermining No No -Wound/Ulcer Outcome Not Healed Not Healed -Ulcer Cleansing Rinsed/ Rinsed/ Irrigated with Irrigated with Saline Saline -Foul Odor after Cleansing No No -Bioengineered Tissue No No -Bleeding Controlled with Pressure Pressure -Treatment Response Procedure Procedure Tolerated Well Tolerated Well -Offloading No No -Debridement - Subq, 1st 20sq cm No No #1- L BACA POST OP superior -Time 09:44 09:40 09:31 -Correct Patient Yes Yes Yes -Correct Side, Site, Position Yes Yes Yes -Correct Procedure Yes Yes Yes -Procedure Performed Yes Yes Yes -Type of Procedure Debridement Debridement Debridement -Clinical Debridement Subcutaneous Subcutaneous Subcutaneous -Tissue Removed Subcutaneous Subcutaneous Subcutaneous -Post Debridement (cm) - Length 1.0 0.6 0.7 -Post Debridement (cm) - Width 1.0 0.3 1.0 -Post Debridement (cm) - Depth 0.1 0.2 0.1 -Total Square (Post) (cm) 1.00 0.18 0.70 -Area of Debridement (cm) - Length 1.0 0.6 0.7 -Area of Debridement (cm) - Width 1.0 0.3 1.0 -Total Square (Area) (cm) 1.00 0.18 0.70 -Tunneling No No No -Undermining/Tunneling No No No -Circular Undermining No No No -Wound/Ulcer Outcome Not Healed Not Healed Not Healed -Ulcer Cleansing Wound Cleanser Rinsed/ Rinsed/ Irrigated with Irrigated with Saline Saline -Foul Odor after Cleansing No No No -Bioengineered Tissue No No No -Bleeding Controlled with Pressure Pressure Pressure -Treatment Response Procedure Not Procedure Procedure Tolerated Well Tolerated Well Tolerated Well -Offloading No No No -Debridement - Subq, 1st 20sq cm Yes Yes No Pain Scale: 0-10 Numeric Is Patient Pain Free? Yes Yes Yes 12/01/21 09:36 Wound Center Nurse 2 3-left medial leg -Time -Correct Patient No -Correct Side, Site, Position No -Correct Procedure No -Procedure Performed No -Type of Procedure -Clinical Debridement -Tissue Removed -Post Debridement (cm) - Length 0 -Post Debridement (cm) - Width 0 -Post Debridement (cm) - Depth 0 -Total Square (Post) (cm) 0 -Area of Debridement (cm) - Length 0 -Area of Debridement (cm) - Width 0 -Total Square (Area) (cm) 0 -Tunneling -Undermining/Tunneling -Circular Undermining -Wound/Ulcer Outcome Healed- Epithelialized -Ulcer Cleansing -Foul Odor after Cleansing -Bioengineered Tissue -Bleeding Controlled with -Treatment Response -Offloading -Debridement - Subq, 1st 20sq cm 2-left inferior baca ulcer -Time 09:38 -Correct Patient Yes -Correct Side, Site, Position Yes -Correct Procedure Yes -Procedure Performed Yes -Type of Procedure Debridement -Clinical Debridement Subcutaneous -Tissue Removed Subcutaneous -Post Debridement (cm) - Length 1.0 -Post Debridement (cm) - Width 2.4 -Post Debridement (cm) - Depth 0.1 -Total Square (Post) (cm) 2.40 -Area of Debridement (cm) - Length 1.0 -Area of Debridement (cm) - Width 2.4 -Total Square (Area) (cm) 2.40 -Tunneling No -Undermining/Tunneling No -Circular Undermining No -Wound/Ulcer Outcome Not Healed -Ulcer Cleansing Rinsed/ Irrigated with Saline -Foul Odor after Cleansing No -Bioengineered Tissue No -Bleeding Controlled with Pressure -Treatment Response Procedure Tolerated Well -Offloading No -Debridement - Subq, 1st 20sq cm Yes #1- L BACA POST OP superior -Time -Correct Patient No -Correct Side, Site, Position No -Correct Procedure No -Procedure Performed No -Type of Procedure -Clinical Debridement -Tissue Removed -Post Debridement (cm) - Length 0 -Post Debridement (cm) - Width 0 -Post Debridement (cm) - Depth 0 -Total Square (Post) (cm) 0 -Area of Debridement (cm) - Length 0 -Area of Debridement (cm) - Width 0 -Total Square (Area) (cm) 0 -Tunneling -Undermining/Tunneling -Circular Undermining -Wound/Ulcer Outcome Healed- Epithelialized -Ulcer Cleansing -Foul Odor after Cleansing -Bioengineered Tissue -Bleeding Controlled with -Treatment Response -Offloading -Debridement - Subq, 1st 20sq cm Pain Scale: 0-10 Numeric Is Patient Pain Free? Yes WC - Nurse 3 - General Ulcer D/C NN Start: 11/10/21 09:10 Freq: Status: Active Protocol: Activity Type Activity Date Activity User E-Sign Co-Sign Detail Recorded Client Recorded Date Recorded By Document 11/10/21 09:57 [facility] [id number] 11/10/21 09:58 [facility] Document 11/17/21 09:55 [facility] [id number] 11/17/21 09:56 [facility] Document 11/24/21 10:08 [id number] 11/24/21 10:09 11/10/21 11/17/21 11/24/21 09:57 09:55 10:08 Wound Care Nurse 3 3-left medial leg -Ulcer Cleansing Rinsed/ Irrigated with Saline -Foul Odor after Cleansing No -Primary Dressing Applied C Hydrogel ($), NonAdherent Contact Layer -Primary Dressing Covered/Secured with Dry Gauze & Roll Gauze 2-left inferior baca ulcer -Ulcer Cleansing Rinsed/ Rinsed/ Irrigated with Irrigated with Saline Saline -Foul Odor after Cleansing No No -Primary Dressing Applied Aquacel AG 2x2 C Hydrogel ($), NonAdherent Contact Layer -Primary Dressing Covered/Secured with Dry Gauze Dry Gauze -Other Covering DRSG PER KR DIABETES TRAINER -Aquacel AG 2x2 1 #1- L BACA POST OP superior -Ulcer Cleansing Rinsed/ Rinsed/ Rinsed/ Irrigated with Irrigated with Irrigated with Saline Saline Saline -Foul Odor after Cleansing No No No -Primary Dressing Applied Aquacel AG 2x2 Aquacel AG 2x2 C Hydrogel ($), NonAdherent Contact Layer -Other Dressing DRSG PER KR DIABETES TRAINER -Primary Dressing Covered/Secured with Dry Gauze Dry Gauze -Other Covering UNNA BOOT -Aquacel AG 2x2 1 0 Left -Lotion applied to leg before Yes compression wrap -Multi-Layered Wrap Application Unna Boot - Multi-Layer Multi-Layer Left ($) Comp - Left ($) Comp - Left ($) -Compression Wrap Unna Boot ($) ( single) -Other PER KR DIABETES TRAINER Treatment Response Procedure Procedure Tolerated Well Tolerated Well Pain Scale: 0-10 Numeric Is Patient Pain Free? Yes Yes Yes WC - Visit Discharge Discharge Condition Stable Stable Stable Ambulatory Status Ambulatory, Ambulatory Ambulatory, Walker Walker Transportation Private Auto Private Auto Private Auto Accompanied by Medication Reconcilliation completed & Yes provided to patient/care provider Clinical Summary of Care Provided Yes Facility Type Home Health Assessment/Plan Assessment/Plan (1) Non-pressure chronic ulcer of left calf with fat layer exposed: CODE(S): L97.222 - Non-pressure chronic ulcer of left calf with fat layer exposed PLAN: Patient examined evaluated, all findings discussed with patient in detail. Wound is significantly improved x2 at this time. 2 new wounds from Unna boot. Patient's left lower extremity wound x1 this is the anterior inferior wound was excisionally debrided down to including level of subcutaneous tissue using a 5 mm dermal curette, all nonviable tissue removed. Topical anesthesia used. Stasis obtained with light compression. he tolerated procedure well. Wounds at this time were dressed with silver alginate and 3M compression wrap. Patient will continue with 3M compression wrap and have a dressing change in between. Will consider any oral antibiotics if any signs of infection should recur. Consider any additional nutritional supplementation, lab work work-up, radiographs, vascular work up, advanced wound care products pending any delays in healing. Patient will follow up in 1 week.
== END 2021-12-01 23:59 | disposition home or self-care (01) ==
LOC: WC 09:15
PROVIDERS: PCP Family Medicine; Visit Provider Podiatrist
DX: L97.222 Non-pressure chronic ulcer of left calf with fat layer exposed (principal); G20 Parkinson's disease; I42.9 Cardiomyopathy, unspecified; I48.19 Other persistent atrial fibrillation; S80.12XS Contusion of left lower leg, sequela; W20.8XXS Other cause of strike by thrown, projected or falling object, sequela; I10 Essential (primary) hypertension; Z79.82 Long term (current) use of aspirin; Z79.01 Long term (current) use of anticoagulants; Z79.899 Other long term (current) drug therapy; Z86.14 Personal history of Methicillin resistant Staphylococcus aureus infection
CPT/HCPCS: 11042; 29580; 29581; 99213; G0463

== ENCOUNTER 2021-12-22 09:30 | Outpatient (RCR) | payer MEDICARE, SELFPAY ==
[2021-12-02 01:12] VITALS: BP 122/78; PULSE 85; RESP 18; TEMP 36.6; BMI 33.7
[2021-12-08 09:42] VITALS: BP 121/73; PULSE 84; RESP 16; TEMP 36.2; BMI 33.7
--- NOTE | 2021-12-08 10:07 | PCM.WC.PN ---
History of Present Illness Date of Service: 12/08/21 Chief Complaint: Radiation cystitis. Progress of Wound: This 76-year-old male presents to clinic for follow-up on wound secondary to hematoma. Patient had dropped a tractor tire on his left lower extremity developed a large hematoma which she delayed treatment for and developed an underlying infection which required urgent decompression intraoperatively on 09/11/2021. This was closed primarily. 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 He developed a recurrent infection with draining ulceration to the site wound was cultured again demonstrated MRSA growth he was restarted on doxycycline and continue that for 3 weeks. Patient did suffer 1 adverse reaction from the medication as he went outside and suffered a photosensitivity reaction. This is improving since he has discontinued the medication. Patient denies any constitutional symptoms at this time. Denies any signs or symptoms of DVT. Patient has no other complaints. No new changes today. Objective Data Objective Data Vital Signs: Vital Signs Temp Pulse Resp BP 97.2 F L 84 16 121/73 H 12/08/21 09:42 12/08/21 09:42 12/08/21 09:42 12/08/21 09:42 Oxygen Delivery Method Room Air Weight: 100.698 kg Body Mass Index (BMI) 33.7 Physical Exam Narrative Patient is alert oriented to person place and time. Patient ambulates unassisted and normal shoe gear. Vascular: Dorsalis pedis posterior tibial pulse palpable bilateral lower extremity capillary fill time brisk to lesser digits. Digital hair growth noted. +2 pitting edema to bilateral lower extremity. Malleoli region. Neurologic: Light touch protective sensation intact to bilateral lower extremity. Dermatologic: Full-thickness wound to incisional site along the anteromedial leg at incisional site-healed. No signs of infection. anterosuperior full-thickness ulceration-healed. Anteroinferior full-thickness wound-healed. Fourth ulceration to the anterior medial leg healed. Pre and post debridement measurements document nursing notes. Musculoskeletal: Muscular strength 5 out of 5 to bilateral lower extremity compartments. No pain with calf squeeze. Negative Homans' sign. No gross deformity. 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 ) Arrival Mode Ambulatory, Walker Transfer Assistance None Accompanied by Patient Identification Verified (Name & Yes ) Patient Requires Transmission-Based No Precautions Safety Precautions NA Height and Weight Body Mass Index (BMI) 33.7 BMI Classification Obese Vital Signs Temperature (97.8 F-99.1 F) 97.2 F L Temperature Source Temporal Pulse Rate (60-100) 84 Pulse Location Monitor Respiratory Rate (12-18) 16 Respiratory rate source Observation Oxygen Delivery Method Room Air Blood Pressure (90/60-120/80) 121/73 H Blood Pressure Mean (mm Hg) 89 Source Monitor Position Sitting Blood Pressure Location Right Arm History Since Last Visit- (Skip if this is Patient's initial visit) Have you changed medications since your No last visit? Any new allergies or adverse reactions No Had a fall/change in ADL's that may No increase risk of falls Signs or symptoms of abuse and/or No neglect since last visit Have you been in the hospital since your No last visit? Has dressing in place as prescribed Yes Has compression in place as prescribed Yes Has offloadiing in place as prescribed N/A Experienced any changes in pain level or No management Left Footwear Regular Shoe Right Footwear Regular Shoe Pain Scale: 0-10 Numeric Is Patient Pain Free? Yes - Nurse 1 - General Ulcer Measurement Start: 12/08/21 09:42 Freq: Status: Active Protocol: Activity Type Activity Date Activity User E-Sign Co-Sign Detail Recorded Client Recorded Date Recorded By Document 12/08/21 09:42 [id number] 12/08/21 09:44 12/08/21 09:42 Wound Center Nurse 1 2-left inferior baca ulcer -Combined with other wound No -Current Size (cm) - Length 0.9 -Current Size (cm) - Width 2.0 -Current Size (cm) - Depth 0.1 -Total Square Cm 1.80 -Date of Last Picture (Recall this 12/08/21 field) -Photo Taken Yes -Epithelialization None Present -Tunneling No -Undermining/Tunneling No -Circular Undermining No -Exudate Amt Medium -Exudate Type Serosanguineous -Wound Margin Flat & Intact -Granulation Amt Large (67-100%) -Granulation Quality [place] -Slough/Fibrin Yes -Necrosis Amt Small (1-33%) -Necrotic Tissue Type Adherent Slough -Structure Exposed N/A -Texture (Alisa-wound Skin Appearance) Assessed, Localized Edema ,Scarring -Moisture (Alisa-wound Skin Appearance) No Abnormality, Assessed -Color (Alisa-wound Skin Appearance) No Abnormality, Assessed -Temperature (Alisa-wound Skin No Abnormality Appearance) (Pt Warm) -Tenderness on Palpation (Alisa-wound No Skin Appearance) -Ulcer Cleansing Rinsed/ Irrigated with Saline -Foul Odor after Cleansing No -Anesthetic Used 4% Lidocaine Solution Lower Limb Edema Present Yes Left Calf (cm) 40.5 Left Ankle (cm) 28.5 WC - Nurse 2 - General Ulcer CM Notes Start: 12/08/21 09:42 Freq: Status: Active Protocol: Activity Type Activity Date Activity User E-Sign Co-Sign Detail Recorded Client Recorded Date Recorded By Document 12/08/21 10:02 SAHARA [id number] 12/08/21 10:02 SAHARA 12/08/21 10:02 Wound Center Nurse 2 2-left inferior baca ulcer -Time 10:02 -Correct Patient Yes -Correct Side, Site, Position Yes -Correct Procedure Yes -Procedure Performed Yes -Type of Procedure Debridement -Clinical Debridement Subcutaneous -Tissue Removed Subcutaneous -Post Debridement (cm) - Length 1.0 -Post Debridement (cm) - Width 2.0 -Post Debridement (cm) - Depth 0.1 -Total Square (Post) (cm) 2.00 -Area of Debridement (cm) - Length 1.0 -Area of Debridement (cm) - Width 2.0 -Total Square (Area) (cm) 2.00 -Tunneling No -Undermining/Tunneling No -Circular Undermining No -Wound/Ulcer Outcome Not Healed -Ulcer Cleansing Rinsed/ Irrigated with Saline -Foul Odor after Cleansing No -Bioengineered Tissue No -Bleeding Controlled with Pressure -Treatment Response Procedure Tolerated Well -Offloading No -Debridement - Subq, 1st 20sq cm Yes Pain Scale: 0-10 Numeric Is Patient Pain Free? Yes Assessment/Plan Assessment/Plan (1) Lower extremity edema: CODE(S): R60.0 - Localized edema (2) Dyspnea on exertion: CODE(S): R06.00 - Dyspnea, unspecified (3) Non-pressure chronic ulcer of left calf with fat layer exposed: CODE(S): L97.222 - Non-pressure chronic ulcer of left calf with fat layer exposed PLAN: Patient examined evaluated, all findings discussed with patient in detail. Wound is significantly improved x1 at this time. 2 new wounds from Unna boot. Patient's left lower extremity wound x1 this is the anterior inferior wound was excisionally debrided down to including level of subcutaneous tissue using a 5 mm dermal curette, all nonviable tissue removed. Topical anesthesia used. Stasis obtained with light compression. he tolerated procedure well. Wounds at this time were dressed with silver alginate and 3M compression wrap. Patient will continue with 3M compression wrap and have a dressing change in between. Will consider any oral antibiotics if any signs of infection should recur. Consider any additional nutritional supplementation, lab work work-up, radiographs, vascular work up, advanced wound care products pending any delays in healing. Patient will follow up in 1 week.
[2021-12-16 13:21] VITALS: BP 139/89; PULSE 81; RESP 18; TEMP 35.7; BMI 33.7
--- NOTE | 2021-12-16 15:23 | PCM.WC.PN ---
History of Present Illness Date of Service: 12/16/21 Chief Complaint: left leg ulcers Progress of Wound: This 76-year-old male presents to clinic for follow-up on wound secondary to hematoma. Patient had dropped a tractor tire on his left lower extremity developed a large hematoma which she delayed treatment for and developed an underlying infection which required urgent decompression intraoperatively on 09/11/2021. This was closed primarily. 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 He developed a recurrent infection with draining ulceration to the site wound was cultured again demonstrated MRSA growth he was restarted on doxycycline and continue that for 3 weeks. Patient did suffer 1 adverse reaction from the medication as he went outside and suffered a photosensitivity reaction. This is improving since he has discontinued the medication. Patient denies any constitutional symptoms at this time. Denies any signs or symptoms of DVT. He has been making good progress and wore a 3M2L layer last week. He reports this was removed yesterday to take a shower prior to his wound center follow up appointment in which he noticed multiple blisters on his leg. He reports some mild return of swelling. He was seen today as a courtesy visit. Objective Data Objective Data Vital Signs: Vital Signs Temp Pulse Resp BP 96.2 F L 81 18 139/89 H 12/16/21 13:21 12/16/21 13:21 12/16/21 13:21 12/16/21 13:21 Oxygen Delivery Method Room Air Weight: 100.698 kg Body Mass Index (BMI) 33.7 Physical Exam Narrative Patient is alert oriented to person place and time. Patient ambulates unassisted and normal shoe gear. Vascular: Dorsalis pedis posterior tibial pulse palpable bilateral lower extremity capillary fill time brisk to lesser digits. Digital hair growth noted. +2 pitting edema to bilateral lower extremity. Malleoli region. Neurologic: Light touch protective sensation intact to bilateral lower extremity. Dermatologic: healed prior Full-thickness wound to incisional site along the anteromedial leg at incisional site-healed. No signs of infection. anterosuperior full-thickness ulceration-healed. Anteroinferior full-thickness wound-healed. Fourth ulceration to the anterior medial leg healed. Serous filled to distal medial left leg and 2 serous filled bullae to the lateral mid left leg; skin left intact as a biological barrier without necrosis infection or deep tissue probing Musculoskeletal: Muscular strength 5 out of 5 to bilateral lower extremity compartments. No pain with calf squeeze. Negative Homans' sign. No gross deformity. 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 ) ) Arrival Mode Ambulatory, Ambulatory, Walker Walker Transfer Assistance None None Accompanied by Patient Identification Verified (Name & Yes Yes ) Patient Requires Transmission-Based No No Precautions Safety Precautions NA Height and Weight Body Mass Index (BMI) 33.7 33.7 BMI Classification Obese Obese Vital Signs Temperature (97.8 F-99.1 F) 97.2 F L 96.2 F L Temperature Source Temporal Temporal Pulse Rate (60-100) 84 81 Pulse Location Monitor Respiratory Rate (12-18) 16 18 Respiratory rate source Observation Observation Oxygen Delivery Method Room Air Blood Pressure (90/60-120/80) 121/73 H 139/89 H Blood Pressure Mean (mm Hg) 89 105 Source Monitor Position Sitting Blood Pressure Location Right Arm History Since Last Visit- (Skip if this is Patient's initial visit) Have you changed medications since your No No last visit? Any new allergies or adverse reactions No No Had a fall/change in ADL's that may No No increase risk of falls Signs or symptoms of abuse and/or No No neglect since last visit Have you been in the hospital since your No No last visit? Has dressing in place as prescribed Yes Yes Has compression in place as prescribed Yes Yes Has offloadiing in place as prescribed N/A N/A Experienced any changes in pain level or No Yes management Left Footwear Regular Shoe Right Footwear Regular Shoe Pain Scale: 0-10 Numeric Is Patient Pain Free? Yes Yes WC - Nurse 1 - General Ulcer Measurement Start: 12/08/21 09:42 Freq: Status: Active Protocol: Activity Type Activity Date Activity User E-sign Co-sign Detail Recorded Client Recorded Date Recorded By Document 12/08/21 09:42 MW [id number] 12/08/21 09:44 MW Document 12/16/21 13:21 DL [id number] 12/16/21 13:29 DL 12/08/21 12/16/21 09:42 13:21 Wound Center Nurse 1 2-left inferior baca ulcer -Combined with other wound No -Current Size (cm) - Length 0.9 0.1 -Current Size (cm) - Width 2.0 0.1 -Current Size (cm) - Depth 0.1 0.1 -Total Square Cm 1.80 0.01 -Date of Last Picture (Recall this 12/08/21 field) -Photo Taken Yes No -Epithelialization None Present -Tunneling No -Undermining/Tunneling No -Circular Undermining No -Exudate Amt Medium Medium -Exudate Type Serosanguineous Serosanguineous -Wound Margin Flat & Intact Flat & Intact -Granulation Amt Large (67-100%) Large (67-100%) -Granulation Quality [place] -Slough/Fibrin Yes -Necrosis Amt Small (1-33%) None Present (0 %) -Necrotic Tissue Type Adherent Slough -Structure Exposed N/A N/A -Texture (Alisa-wound Skin Appearance) Assessed, Scarring Localized Edema ,Scarring -Moisture (Alisa-wound Skin Appearance) No Abnormality, Weeping Assessed -Color (Alisa-wound Skin Appearance) No Abnormality, No Abnormality Assessed -Temperature (Alisa-wound Skin No Abnormality No Abnormality Appearance) (Pt Warm) (Pt Warm) -Tenderness on Palpation (Alisa-wound No No Skin Appearance) -Ulcer Cleansing Rinsed/ Soap and Water Irrigated with Saline -Foul Odor after Cleansing No No -Anesthetic Used 4% Lidocaine Solution Lower Limb Edema Present Yes Left Calf (cm) 40.5 40 Left Ankle (cm) 28.5 27.1 WC - Nurse 2 - General Ulcer CM Notes Start: 12/08/21 09:42 Freq: Status: Active Protocol: Activity Type Activity Date Activity User E-sign Co-sign Detail Recorded Client Recorded Date Recorded By Document 12/08/21 10:02 [id number] 12/08/21 10:02 Document 12/16/21 13:38 [id number] 12/16/21 13:38 12/08/21 12/16/21 10:02 13:38 Wound Center Nurse 2 2-left inferior baca ulcer -Time 10:02 -Correct Patient Yes No -Correct Side, Site, Position Yes No -Correct Procedure Yes No -Procedure Performed Yes No -Type of Procedure Debridement -Clinical Debridement Subcutaneous -Tissue Removed Subcutaneous -Post Debridement (cm) - Length 1.0 0 -Post Debridement (cm) - Width 2.0 0 -Post Debridement (cm) - Depth 0.1 0 -Total Square (Post) (cm) 2.00 0 -Area of Debridement (cm) - Length 1.0 0 -Area of Debridement (cm) - Width 2.0 0 -Total Square (Area) (cm) 2.00 0 -Tunneling No -Undermining/Tunneling No -Circular Undermining No -Wound/Ulcer Outcome Not Healed Healed- Epithelialized -Ulcer Cleansing Rinsed/ Irrigated with Saline -Foul Odor after Cleansing No -Bioengineered Tissue No -Bleeding Controlled with Pressure -Treatment Response Procedure Tolerated Well -Offloading No -Debridement - Subq, 1st 20sq cm Yes Pain Scale: 0-10 Numeric Is Patient Pain Free? Yes Yes - Nurse 3 - General Ulcer D/C NN Start: 12/08/21 09:42 Freq: Status: Active Protocol: Activity Type Activity Date Activity User E-sign Co-sign Detail Recorded Client Recorded Date Recorded By Document 12/08/21 10:52 [place] [id number] 12/08/21 10:52 [place] Document 12/16/21 13:50 [facility] [id number] 12/16/21 13:50 [facility] 12/08/21 12/16/21 10:52 13:50 Wound Care Nurse 3 2-left inferior baca ulcer -Other Dressing abd to protect -Primary Dressing Covered/Secured with Dry Gauze Left -Multi-Layered Wrap Application Multi-Layer Multi-Layer Comp - Left ($) Comp - Left ($) Treatment Response Procedure Tolerated Well Pain Scale: 0-10 Numeric Is Patient Pain Free? Yes Yes WC - Visit Discharge Discharge Condition Stable Stable Ambulatory Status Ambulatory, Ambulatory, Walker Walker Transportation Private Auto Private Auto Accompanied by Medication Reconcilliation completed & Yes provided to patient/care provider Clinical Summary of Care Provided Yes Assessment/Plan Assessment/Plan (1) Lower extremity edema: CODE(S): R60.0 - Localized edema (2) Dyspnea on exertion: CODE(S): R06.00 - Dyspnea, unspecified (3) Non-pressure chronic ulcer of left calf with fat layer exposed: CODE(S): L97.222 - Non-pressure chronic ulcer of left calf with fat layer exposed (4) Blister of left leg: CODE(S): S80.822A - Blister (nonthermal), left lower leg, initial encounter PLAN: Plan ?Patient examined evaluated, all findings discussed with patient in detail. It appears the wound is healed but he has new blisters. Verbal consent was obtained to drain these after isopropyl alcohol was used to prep the area. This was performed with 15 blade scalpel and is noted only serous and noninfection drainage is noted. To cover with a dry gauze and compression dressing. Prior ulcer sites are healed today His chronic?stasis is noted. D/C primary dressing and apply dry gauze to drained blister sites. He understands this outer skin will hopefully adhere back or he may have new wound developement. This will be reevaluated at his follow up. Continue 3M2L dressing this week to allow continued skin remodeling. 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 To elevate. He was reassured no infection or deep tissue exposure is noted. Patient will follow up in 1 week. Note: [employer] speech recognition cylinder press operator apprentice software was used to create portions of this document. Sound-alike and misspelled words, as well as other cylinder press operator apprentice errors may be contained in the documentation. The medical decision making level is moderate. There is noted moderate risk of morbidity after considering this treatment plan and diagnostic data. Considerations were given to prescription management, decisions regarding surgical options, or social determinants of health. The problems addressed require a moderate decision making level which includes one or more chronic illnesses (w/ exacerbation, progression, or side effects), two or more stable chronic illnesses, one undiagnosed new problem w/ uncertain prognosis, one acute illness with systemic symptoms, or one acute complicated injury.
[2021-12-22 10:08] VITALS: BP 131/76; PULSE 79; TEMP 36.7; BMI 33.7
--- NOTE | 2021-12-22 10:37 | PCM.WC.PN ---
History of Present Illness Date of Service: 12/22/21 Chief Complaint: left leg ulcers Progress of Wound: This 76-year-old male presents to clinic for follow-up on wound secondary to hematoma. Patient had dropped a tractor tire on his left lower extremity developed a large hematoma which she delayed treatment for and developed an underlying infection which required urgent decompression intraoperatively on 09/11/2021. This was closed primarily. 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 He developed a recurrent infection with draining ulceration to the site wound was cultured again demonstrated MRSA growth he was restarted on doxycycline and continue that for 3 weeks. Patient did suffer 1 adverse reaction from the medication as he went outside and suffered a photosensitivity reaction. This is improving since he has discontinued the medication. Patient denies any constitutional symptoms at this time. Denies any signs or symptoms of DVT. He has been making good progress and wore a 3M2L layer last week. He reports this was removed yesterday to take a shower prior to his wound center follow up appointment in which he noticed multiple blisters on his leg. He reports some mild return of swelling. He was seen today as a courtesy visit. Objective Data Objective Data Vital Signs: Vital Signs Temp Pulse Resp BP 98.1 F 79 18 131/76 H 12/22/21 10:08 12/22/21 10:08 12/16/21 13:21 12/22/21 10:08 Oxygen Delivery Method Room Air Weight: 100.698 kg Body Mass Index (BMI) 33.7 Physical Exam Narrative Patient is alert oriented to person place and time. Patient ambulates unassisted and normal shoe gear. Vascular: Dorsalis pedis posterior tibial pulse palpable bilateral lower extremity capillary fill time brisk to lesser digits. Digital hair growth noted. +2 pitting edema to bilateral lower extremity. Malleoli region. Neurologic: Light touch protective sensation intact to bilateral lower extremity. Dermatologic: healed prior Full-thickness wound to incisional site along the anteromedial leg at incisional site-healed. No signs of infection. anterosuperior full-thickness ulceration-healed. Anteroinferior full-thickness wound-healed. Fourth ulceration to the anterior medial leg healed. Serous filled to distal medial left leg and 2 serous filled bullae to the lateral mid left leg; skin left intact as a biological barrier without necrosis infection or deep tissue probing Musculoskeletal: Muscular strength 5 out of 5 to bilateral lower extremity compartments. No pain with calf squeeze. Negative Homans' sign. No gross deformity. Debridement Note Debridement Note Post-Debridement Measurements and Additional Note: Post-Debridement Measurements/Treatment - Nurse 1 - General Ulcer Assessment Start: 12/08/21 09:42 Freq: Status: Active Protocol: WC.LOWEXT Activity Type Activity Date Activity User E-sign Co-sign Detail Recorded Client Recorded Date Recorded By Document 12/08/21 09:42 MW [id number] 12/08/21 09:44 MW Document 12/16/21 13:21 DL [id number] 12/16/21 13:29 DL Document 12/22/21 10:08 AK [id number] 12/22/21 10:13 AK 12/08/21 12/16/21 12/22/21 09:42 13:21 10:08 - Today's Visit Information Type of service Follow-up Visit Follow-up Visit Follow-up Visit (Physician/PEDIATRIC ONCOLOGIST (Physician/PEDIATRIC ONCOLOGIST (Physician/PEDIATRIC ONCOLOGIST ) ) ) Arrival Mode Ambulatory, Ambulatory, Ambulatory, Walker Walker Walker Transfer Assistance None None Accompanied by Patient Identification Verified (Name & Yes Yes Yes ) Patient Requires Transmission-Based No No No Precautions Safety Precautions NA NA Height and Weight Body Mass Index (BMI) 33.7 33.7 33.7 BMI Classification Obese Obese Obese Vital Signs Temperature (97.8 F-99.1 F) 97.2 F L 96.2 F L 98.1 F Temperature Source Temporal Temporal Temporal Pulse Rate (60-100) 84 81 79 Pulse Location Monitor Monitor Respiratory Rate (12-18) 16 18 Respiratory rate source Observation Observation Oxygen Delivery Method Room Air Blood Pressure (90/60-120/80) 121/73 H 139/89 H 131/76 H Blood Pressure Mean (mm Hg) 89 105 94 Source Monitor Monitor Position Sitting Blood Pressure Location Right Arm History Since Last Visit- (Skip if this is Patient's initial visit) Have you changed medications since your No No No last visit? Any new allergies or adverse reactions No No No Had a fall/change in ADL's that may No No No increase risk of falls Signs or symptoms of abuse and/or No No No neglect since last visit Have you been in the hospital since your No No No last visit? Has dressing in place as prescribed Yes Yes Yes Has compression in place as prescribed Yes Yes Yes Has offloadiing in place as prescribed N/A N/A N/A Experienced any changes in pain level or No Yes No management Left Footwear Regular Shoe Regular Shoe Right Footwear Regular Shoe Regular Shoe Pain Scale: 0-10 Numeric Is Patient Pain Free? Yes Yes Yes WC - Nurse 1 - General Ulcer Measurement Start: 12/08/21 09:42 Freq: Status: Active Protocol: Activity Type Activity Date Activity User E-sign Co-sign Detail Recorded Client Recorded Date Recorded By Document 12/08/21 09:42 MW [id number] 12/08/21 09:44 MW Document 12/16/21 13:21 DL [id number] 12/16/21 13:29 DL Document 12/22/21 10:08 AK [id number] 12/22/21 10:13 AK 12/08/21 12/16/21 12/22/21 09:42 13:21 10:08 Wound Center Nurse 1 2-left inferior baca ulcer -Combined with other wound No No -Current Size (cm) - Length 0.9 0.1 4.5 -Current Size (cm) - Width 2.0 0.1 2 -Current Size (cm) - Depth 0.1 0.1 0.1 -Total Square Cm 1.80 0.01 9.0 -Date of Last Picture (Recall this 12/08/21 field) -Photo Taken Yes No No -Epithelialization None Present None Present -Tunneling No No -Undermining/Tunneling No No -Circular Undermining No No -Change in Wound Grade/Stage No -Exudate Amt Medium Medium Small -Exudate Type Serosanguineous Serosanguineous Purulent -Wound Margin Flat & Intact Flat & Intact Distinct, Outline Attached -Granulation Amt Large (67-100%) Large (67-100%) None Present (0 %) -Granulation Quality [place] N/A -Slough/Fibrin Yes No -Necrosis Amt Small (1-33%) None Present (0 None Present (0 %) %) -Necrotic Tissue Type Adherent Slough -Structure Exposed N/A N/A N/A -Texture (Alisa-wound Skin Appearance) Assessed, Scarring No Abnormality, Localized Edema Assessed ,Scarring -Moisture (Alisa-wound Skin Appearance) No Abnormality, Weeping No Abnormality, Assessed Assessed -Color (Ailsa-wound Skin Appearance) No Abnormality, No Abnormality No Abnormality, Assessed Assessed -Temperature (Alisa-wound Skin No Abnormality No Abnormality No Abnormality Appearance) (Pt Warm) (Pt Warm) (Pt Warm) -Tenderness on Palpation (Alisa-wound No No No Skin Appearance) -Ulcer Cleansing Rinsed/ Soap and Water Rinsed/ Irrigated with Irrigated with Saline Saline -Foul Odor after Cleansing No No No -Anesthetic Used 4% Lidocaine 5% Lidocaine Solution Gel Lower Limb Edema Present Yes Left Calf (cm) 40.5 40 38 Left Ankle (cm) 28.5 27.1 27 12/22/21 10:13 Wound Center by Khanh Vera opened blisters Initialized on 12/22/21 10:13 - END OF NOTE WC - Nurse 2 - General Ulcer CM Notes Start: 12/08/21 09:42 Freq: Status: Active Protocol: Activity Type Activity Date Activity User E-sign Co-sign Detail Recorded Client Recorded Date Recorded By Document 12/08/21 10:02 [id number] 12/08/21 10:02 Document 12/16/21 13:38 [id number] 12/16/21 13:38 Document 12/22/21 10:28 [id number] 12/22/21 10:30 12/08/21 12/16/21 12/22/21 10:02 13:38 10:28 Wound Center Nurse 2 2-left inferior baca ulcer -Time 10:02 -Correct Patient Yes No No -Correct Side, Site, Position Yes No No -Correct Procedure Yes No No -Procedure Performed Yes No No -Type of Procedure Debridement -Clinical Debridement Subcutaneous -Tissue Removed Subcutaneous -Post Debridement (cm) - Length 1.0 0 -Post Debridement (cm) - Width 2.0 0 -Post Debridement (cm) - Depth 0.1 0 -Total Square (Post) (cm) 2.00 0 -Area of Debridement (cm) - Length 1.0 0 -Area of Debridement (cm) - Width 2.0 0 -Total Square (Area) (cm) 2.00 0 -Tunneling No -Undermining/Tunneling No -Circular Undermining No -Wound/Ulcer Outcome Not Healed Healed- Not Healed Epithelialized -Ulcer Cleansing Rinsed/ Irrigated with Saline -Foul Odor after Cleansing No -Bioengineered Tissue No -Bleeding Controlled with Pressure -Treatment Response Procedure Tolerated Well -Offloading No -Debridement - Subq, 1st 20sq cm Yes Pain Scale: 0-10 Numeric Is Patient Pain Free? Yes Yes Yes - Nurse 3 - General Ulcer D/C NN Start: 12/08/21 09:42 Freq: Status: Active Protocol: Activity Type Activity Date Activity User E-sign Co-sign Detail Recorded Client Recorded Date Recorded By Document 12/08/21 10:52 NE [id number] 12/08/21 10:52 NE Document 12/16/21 13:50 [facility] [id number] 12/16/21 13:50 BM 12/08/21 12/16/21 10:52 13:50 Wound Care Nurse 3 2-left inferior baca ulcer -Other Dressing abd to protect -Primary Dressing Covered/Secured with Dry Gauze Left -Multi-Layered Wrap Application Multi-Layer Multi-Layer Comp - Left ($) Comp - Left ($) Treatment Response Procedure Tolerated Well Pain Scale: 0-10 Numeric Is Patient Pain Free? Yes Yes - Visit Discharge Discharge Condition Stable Stable Ambulatory Status Ambulatory, Ambulatory, Walker Walker Transportation Private Auto Private Auto Accompanied by Medication Reconcilliation completed & Yes provided to patient/care provider Clinical Summary of Care Provided Yes Assessment/Plan Assessment/Plan (1) Lower extremity edema: CODE(S): R60.0 - Localized edema (2) Dyspnea on exertion: CODE(S): R06.00 - Dyspnea, unspecified (3) Non-pressure chronic ulcer of left calf with fat layer exposed: CODE(S): L97.222 - Non-pressure chronic ulcer of left calf with fat layer exposed (4) Blister of left leg: CODE(S): S80.822A - Blister (nonthermal), left lower leg, initial encounter PLAN: Plan Patient examined evaluated, all findings cussed patient detail. Patient saw Dr. Perez last week due to development of some blisters to his left lower extremity. These were aseptically drained by her. And he has been dressed with 3M compression wrap since that time. Today he presents with a small partial-thickness areas where the vesicles were drained. At this time I recommend discontinuation of home health care dressing changes with 3M wraps. Patient will transition into daily dressing of wound sites with hydrogel DSD and Tubigrip for compression. A new prescription for custom compression stockings was dispensed to the patient once he receives these he will transition to these. Patient will continue compression exercise elevation for edema management Patient will follow up in 2 to 3 weeks to ensure healing of blister sites and no recurrence with improved edema.
== END 2021-12-31 23:59 | disposition home or self-care (01) ==
LOC: WC 09:30
PROVIDERS: PCP Family Medicine; Visit Provider Podiatrist
DX: L97.222 Non-pressure chronic ulcer of left calf with fat layer exposed (principal); R60.0 Localized edema; R06.00 Dyspnea, unspecified; S80.12XS Contusion of left lower leg, sequela; W20.8XXS Other cause of strike by thrown, projected or falling object, sequela; Z86.14 Personal history of Methicillin resistant Staphylococcus aureus infection
CPT/HCPCS: 11042; 29581; 99213; G0463

== ENCOUNTER 2022-01-19 09:25 | Outpatient (RCR) | payer MEDICARE, SELFPAY ==
[2022-01-01 00:41] VITALS: BP 131/76; PULSE 79; RESP 18; TEMP 36.7; BMI 33.7
[2022-01-19 09:38] VITALS: BP 129/90; PULSE 84; TEMP 36.4; BMI 33.7
--- NOTE | 2022-01-19 10:15 | PCM.WC.PN ---
History of Present Illness Date of Service: 12/22/21 Chief Complaint: left leg ulcers Progress of Wound: This 76-year-old male presents to clinic for follow-up on left lower extremity wound secondary to poorly controlled edema. Patient notes resolution of these at this time. Patient denies constitutional symptoms. Patient denies chest pain calf pain shortness of breath. Patient has no new complaints at this time was able to receive a pair of prescription compression stockings. Objective Data Objective Data Vital Signs: Vital Signs Temp Pulse Resp BP 97.5 F L 84 18 129/90 H 01/19/22 09:38 01/19/22 09:38 01/01/22 00:41 01/19/22 09:38 Weight: 100.698 kg Body Mass Index (BMI) 33.7 Physical Exam Narrative Patient is alert oriented to person place and time. Patient ambulates unassisted and normal shoe gear. Vascular: Dorsalis pedis posterior tibial pulse palpable bilateral lower extremity capillary fill time brisk to lesser digits. Digital hair growth noted. +2 pitting edema to bilateral lower extremity. Malleoli region. Neurologic: Light touch protective sensation intact to bilateral lower extremity. Dermatologic: healed prior Full-thickness wound to incisional site along the anteromedial leg at incisional site-healed. No signs of infection. anterosuperior full-thickness ulceration-healed. Anteroinferior full-thickness wound-healed. Fourth ulceration to the anterior medial leg healed. Serous filled to distal medial left leg and 2 serous filled bullae to the lateral mid left leg; skin left intact as a biological barrier without necrosis infection or deep tissue probing Musculoskeletal: Muscular strength 5 out of 5 to bilateral lower extremity compartments. No pain with calf squeeze. Negative Homans' sign. No gross deformity. Debridement Note Debridement Note Post-Debridement Measurements and Additional Note: Post-Debridement Measurements/Treatment - Nurse 1 - General Ulcer Assessment Start: 01/19/22 09:38 Freq: Status: Active Protocol: HERBERT.ALEXIEXZuleima Activity Type Activity Date Activity User E-sign Co-sign Detail Recorded Client Recorded Date Recorded By Document 01/19/22 09:38 CESAR [id number] 01/19/22 09:41 CESAR 01/19/22 09:38 - Today's Visit Information Type of service Follow-up Visit (Physician/CASINO CAGE SUPERVISOR ) Arrival Mode Ambulatory, Walker Patient Identification Verified (Name & Yes ) Height and Weight Body Mass Index (BMI) 33.7 BMI Classification Obese Vital Signs Temperature (97.8 F-99.1 F) 97.5 F L Temperature Source Temporal Pulse Rate (60-100) 84 Pulse Location Monitor Blood Pressure (90/60-120/80) 129/90 H Blood Pressure Mean (mm Hg) 103 Source Monitor Position Sitting Blood Pressure Location Right Arm History Since Last Visit- (Skip if this is Patient's initial visit) Have you changed medications since your No last visit? Any new allergies or adverse reactions No Had a fall/change in ADL's that may No increase risk of falls Signs or symptoms of abuse and/or No neglect since last visit Have you been in the hospital since your No last visit? Has dressing in place as prescribed Yes Has compression in place as prescribed Yes Has offloadiing in place as prescribed N/A Experienced any changes in pain level or No management Left Footwear Regular Shoe Right Footwear Regular Shoe Pain Scale: 0-10 Numeric Is Patient Pain Free? Yes - Nurse 1 - General Ulcer Measurement Start: 01/19/22 09:38 Freq: Status: Active Protocol: Activity Type Activity Date Activity User E-sign Co-sign Detail Recorded Client Recorded Date Recorded By Document 01/19/22 09:38 CESAR [id number] 01/19/22 09:41 CESAR 01/19/22 09:38 Wound Center Nurse 1 2-left inferior baca ulcer -Current Size (cm) - Length 0.1 -Current Size (cm) - Width 0.1 -Current Size (cm) - Depth 0.1 -Total Square Cm 0.01 -Exudate Amt None Present -Wound Margin Distinct, Outline Attached -Granulation Amt Small (1-33%) -Granulation Quality N/A,Red -Texture (Alisa-wound Skin Appearance) Assessed, Scarring -Moisture (Alisa-wound Skin Appearance) No Abnormality, Assessed -Color (Alisa-wound Skin Appearance) No Abnormality, Assessed -Temperature (Alisa-wound Skin No Abnormality Appearance) (Pt Warm) -Tenderness on Palpation (Alisa-wound No Skin Appearance) -Ulcer Cleansing Rinsed/ Irrigated with Saline -Anesthetic Used 5% Lidocaine Gel Left Calf (cm) 40.5 Left Ankle (cm) 27.3 WC - Nurse 2 - General Ulcer CM Notes Start: 01/19/22 09:38 Freq: Status: Active Protocol: Activity Type Activity Date Activity User E-sign Co-sign Detail Recorded Client Recorded Date Recorded By Document 01/19/22 09:58 [id number] 01/19/22 09:59 01/19/22 09:58 Wound Center Nurse 2 2-left inferior baca ulcer -Correct Patient No -Correct Side, Site, Position No -Correct Procedure No -Procedure Performed No -Post Debridement (cm) - Length 0 -Post Debridement (cm) - Width 0 -Post Debridement (cm) - Depth 0 -Total Square (Post) (cm) 0 -Area of Debridement (cm) - Length 0 -Area of Debridement (cm) - Width 0 -Total Square (Area) (cm) 0 -Wound/Ulcer Outcome Healed- Epithelialized Pain Scale: 0-10 Numeric Is Patient Pain Free? Yes - Nurse 3 - General Ulcer D/C NN Start: 01/19/22 09:38 Freq: Status: Active Protocol: Activity Type Activity Date Activity User E-sign Co-sign Detail Recorded Client Recorded Date Recorded By Document 01/19/22 10:08 [facility] [id number] 01/19/22 10:08 [facility] 01/19/22 10:08 Wound Care Nurse 3 Left -Tubular Bandage Double Layer -Size of Tubigrip Used Size E -Size E ($) 2 Treatment Response Procedure Tolerated Well Pain Scale: 0-10 Numeric Is Patient Pain Free? Yes WC - Visit Discharge Discharge Condition Stable Ambulatory Status Ambulatory, Walker Transportation Private Auto Accompanied by Assessment/Plan Assessment/Plan (1) Lower extremity edema: CODE(S): R60.0 - Localized edema PLAN: Plan Patient examined evaluated, all findings cussed patient detail. Patient's left leg wounds of healed at this time. Patient was to discontinue Tubigrip dressings. Patient will proceed with exercise compression elevation for edema management. Patient has compression stockings are 20 to 30 mmHg up to level knee-high. He will use these on a daily basis. He can remove these at night. He will elevate his legs when at rest. Patient will follow up in my office for at risk nail care and checking of his legs.
== END 2022-01-21 14:52 | disposition home or self-care (01) ==
LOC: WC 09:25
PROVIDERS: PCP Family Medicine; Visit Provider Podiatrist
DX: Z09 Encounter for follow-up examination after completed treatment for conditions other than malignant neoplasm (principal); R60.0 Localized edema; Z79.82 Long term (current) use of aspirin; Z79.899 Other long term (current) drug therapy
CPT/HCPCS: 99212; G0463

== ENCOUNTER → 2022-02-05 | Outpatient (CLI) | payer MEDICARE, SELFPAY ==
[2022-02-05 15:33] LABS: PSA,Total- Diagnostic 0.19 ng/mL (0.0-4.0)
== END | disposition home or self-care (01) ==
LOC: LAB 14:38
PROVIDERS: PCP Family Medicine; Visit Provider Urology
DX: C61 Malignant neoplasm of prostate (principal)
CPT/HCPCS: 36415; 84153

== ENCOUNTER 2022-04-19 13:05 | Emergency (ER) | payer MEDICARE, SELFPAY ==
[2022-04-19 13:06] VITALS: BP 133/84; PULSE 75; RESP 16; TEMP 36.2; O2SAT 96; BMI 31.9
[2022-04-19] MEDS: TRANEXAMIC ACID 1,000 MG/10 ML ML 1000 MG OPERA.SITE (14:45)
[2022-04-19] MEDS: Mixture 30 ML Bottle 10 ML TOPICAL (14:45)
[2022-04-19] MEDS: DiphenhydrAMINE 50 MG/ML Syringe 25 MG IV (15:23)
[2022-04-19] MEDS: MethylPREDNISolone 125 MG/2 ML Vial IV (15:23)
[2022-04-19] MEDS: Epi Pen (EQUIV) 0.3 MG Syringe IM (15:26)
[2022-04-19 15:31] VITALS: BP 136/97; PULSE 68; RESP 13; O2SAT 94
--- NOTE | 2022-04-19 16:23 | ED.RN ---
PT. HAD SWELLING OF THE TONGUE AFTER APPLIED BRIANA MIX. ALLERGIES UPDATED PER INGREDIENTS IN [employer] MIX.
--- NOTE | 2022-04-19 16:33 | EX.ED.DYSGE1 ---
HPI History of Present Illness Chief Complaint: Nosebleed Informant: patient and family Narrative Narrative: 76-year-old male presenting with nosebleed. Started approximately 2 hours prior to arrival. He has bleeding from the left nare. He is not on anticoagulants. History of previous nosebleeds. He denies trauma. Denies lightheadedness or syncope. Denies other complaints. Prior similar symptoms: Yes Recent Illness/Hospitalization: No PFSH [facility], [facility]ER [facility] Medical History Atrial fibrillation Cardiomyopathy in other diseases classified elsewhere Chronic radiation cystitis DVT (deep venous thrombosis) History of blistering sunburn Hypertension Localized edema Localized edema assisted (current) use of anticoagulants assisted use of drug Other secondary pulmonary hypertension Parkinsons disease Persistent atrial fibrillation Prostate cancer Home Medications calcium carbonate 600 mg-vitamin D3 12.5 mcg (500 unit) capsule (Calcium 600 with Vitamin D3) 1 cap PO DAILY Vitamin 09/25/20 [History Last Taken 09/09/21] carbidopa ER 50 mg-levodopa 200 mg tablet,extended release 1 tablet PO TID parkinsons 09/25/20 [History Last Taken 09/09/21] dorzolamide 22.3 mg-timolol 6.8 mg/mL eye drops 1 - 2 drp ophthalmic (eye) BID glaucoma 09/25/20 [History Last Taken 09/09/21] prednisolone acetate 1 % eye drops,suspension 1 drp LEFT EYE DAILY vision 11/13/20 [History Last Taken 09/09/21] atenolol 50 mg tablet 50 mg PO DAILY heart/blood pressure 04/28/21 [History Last Taken 09/09/21] pramipexole 0.5 mg tablet 0.5 mg PO BID 04/28/21 [History Last Taken 09/09/21] ascorbic acid (vitamin C) 500 mg tablet 1,000 mg PO DAILY SUPPLEMENT 09/10/21 [History Last Taken 09/09/21] aspirin 81 mg tablet,delayed release 81 mg PO DAILY HEALTH 09/10/21 [History Last Taken 09/09/21] latanoprost 0.005 % eye drops 1 drp RIGHT EYE QHS 09/10/21 [History Last Taken 09/09/21] memantine 10 mg tablet 10 mg PO BID MEMORY 09/10/21 [History Last Taken 09/09/21] tamsulosin 0.4 mg capsule (Flomax) 0.4 mg PO DAILY PROSTATE 09/10/21 [History Last Taken 09/09/21] acetaminophen 500 mg tablet 500 - 1,000 mg PO BID PRN Pain 11/10/21 [History Last Taken Unknown] furosemide 40 mg tablet 40 mg PO .COMPLEX FLUID 11/11/21 [History Last Taken Unknown] diltiazem HCl 120 mg capsule,24 hr,extended release See Rx Instructions .Route .COMPLEX #90 CAPSULES 02/09/22 [Rx Last Taken Unknown] potassium chloride 20 mEq tablet,extended release See Rx Instructions .Route .COMPLEX #90 TABLETS 03/23/22 [Rx Last Taken Unknown] Allergy/AdvReac Type Severity Reaction Status Date / Time lidocaine Allergy Angioedema Verified 04/19/22 16:22 peppermint Allergy Angioedema Verified 04/19/22 16:22 phenylephrine Allergy Angioedema Verified 04/19/22 16:22 Family History Brother Atrial fibrillation Surgical History History of cataract extraction History of hernia repair History of incision and drainage (~09/2021) Social History Smoking Status: Never smoker alcohol intake: never substance use type: does not use caffeine: Yes Type: carbonated beverages Number of servings: 1 ROS ROS ED Constitutional Constitutional ED: Denies fever(s) Eyes Eyes: Denies change in vision ENT ENT ED: Reports other Details: Nosebleed ; Denies rhinorrhea or sore throat Cardiovascular Cardiovascular: Denies chest pain or palpitations Respiratory/Chest Respiratory/Chest: Denies cough or dyspnea Gastrointestinal Gastrointestinal: Denies abdominal pain, diarrhea, nausea or vomiting Musculoskeletal Musculoskeletal: Denies myalgias Integumentary Denies rash Neurologic Neurologic: Denies headache(s) Psychiatric Psychiatric: Denies suicidal thoughts EXAM Physical Exam Const Vital Signs: 04/19/22 13:06 04/19/22 15:31 Temperature 97.1 F L Temperature Source Temporal Pulse Rate 75 68 Respiratory Rate 16 13 Blood Pressure 133/84 H 136/97 H Blood Pressure Mean 100 110 Pulse Ox 96 94 Oxygen Delivery Method Room Air Room Air Positive well nourished and well developed General Appearance ED: well developed HEENT Reports normocephalic and head/scalp atraumatic HEENT Narrative: Bleeding anterior left nare. Eyes PERRL and EOMs intact bilaterally Neck supple General: Negative for tenderness Chest Wall inspection of chest normal Resp normal respiratory effort and clear to auscultation bilaterally Cardio regular rate and regular rhythm GI non-tender and non-distended Palpation: soft; Negative for guarding or rebound tenderness present no CVA tenderness Extremity normal to inspection Neuro oriented x3 Sensorium / Orientation: alert Psych mental status grossly normal MDM MDM MDM Narrative Medical decision making narrative: Cotton ball soaked in Marlen mix was instilled into left nare. Following this, patient began having sensation of tongue swelling. No difficulty breathing or swallowing. No wheezing. No rash. Cottonball was removed. Rhino Rocket soaked in TXA was placed into left nare. No blood in posterior pharynx. Patient was given epinephrine IM; Solu-Medrol, Benadryl IV. Sunitha mix which contains lidocaine, peppermint, phenylephrine was added to his allergy list. He will be observed in the ED. On reevaluation his tongue swelling has almost completely resolved. He will be further observed and checked out to the oncoming physician. Plan will be to discharge home with follow-up with ENT as long as his tongue swelling resolves. Discharge Plan Triage Chief Complaint: Nosebleed ED Provider: Fadumo Thompson Dx/Rx/DC Orders Clinical Impression: Epistaxis, Allergic reaction Instructions: ED ADVERSE DRUG REACTION Allergic, ED Epistaxis (Adult) Prescriptions: No Action atenolol 50 mg tablet 50 mg PO DAILY pramipexole 0.5 mg tablet 0.5 mg PO BID carbidopa-levodopa 50-200 mg tablet extended release 1 tablet PO TID dorzolamide-timolol 22.3-6.8 mg/mL drops 1 - 2 drp OPHTHALMIC BID calcium carbonate-vitamin D3 [Calcium 600 with Vitamin D3] 600 mg(1,500mg) -500 unit capsule 1 cap PO DAILY furosemide 40 mg tablet 40 mg PO .COMPLEX Rx Instructions: 40 mg PO; 80mg in the AM and 40 in the PM. prednisolone acetate 1 % drops,suspension 1 drp LEFT EYE DAILY Label Comments: instill 1 drop into left eye twice a day latanoprost 0.005 % drops 1 drp RIGHT EYE QHS ascorbic acid (vitamin C) 500 mg Tablet 1,000 mg PO DAILY memantine 10 mg tablet 10 mg PO BID aspirin 81 mg tablet,delayed release (DR/EC) 81 mg PO DAILY tamsulosin [Flomax] 0.4 mg capsule 0.4 mg PO DAILY acetaminophen [Tylenol Ex Str Rapid Release] 500 mg Tablet 500 - 1,000 mg PO BID PRN (Reason: Pain) diltiazem HCl 120 mg capsule,extended release 24 hr See Rx Instructions .ROUTE .COMPLEX Qty: 90 3RF Dose Instruction: take 1 capsule by mouth once daily Rx Instructions: take 1 capsule by mouth once daily potassium chloride 20 mEq tablet extended release See Rx Instructions .ROUTE .COMPLEX Qty: 90 3RF Dose Instruction: take 1 tablet by mouth once daily Rx Instructions: take 1 tablet by mouth once daily Primary Care Provider: Masoud Rosa Referrals: Masoud Rosa MD [Primary Care Provider] - Neal Duncan MD [Non-Staff] - Disposition Disposition: Home, Self Care
[2022-04-19 16:50] VITALS: BP 125/86; PULSE 88; RESP 15; O2SAT 95
[2022-04-19 18:17] VITALS: BP 133/79; PULSE 85; RESP 17; O2SAT 96
[2022-04-19 19:19] VITALS: BP 129/87; PULSE 86; RESP 16; O2SAT 97
[2022-04-19 19:41] VITALS: BP 129/87; PULSE 85; RESP 18; TEMP 36.7; O2SAT 96
== END 2022-04-19 19:42 | disposition home or self-care (01) ==
PROVIDERS: Emergency Provider Emergency Medicine; PCP Family Medicine; Visit Provider Emergency Medicine
DX: R04.0 Epistaxis (principal); G20 Parkinson's disease; I42.9 Cardiomyopathy, unspecified; I27.29 Other secondary pulmonary hypertension; I48.19 Other persistent atrial fibrillation; T78.40XA Allergy, unspecified, initial encounter; Y84.8 Other medical procedures as the cause of abnormal reaction of the patient, or of later complication, without mention of misadventure at the time of the procedure; I10 Essential (primary) hypertension; Z79.01 Long term (current) use of anticoagulants; Z79.82 Long term (current) use of aspirin; Z79.899 Other long term (current) drug therapy; Z86.718 Personal history of other venous thrombosis and embolism
CPT/HCPCS: 30901; 96372; 96374; 96375; 99282; J7050; A4216

== ENCOUNTER → 2022-06-08 | Outpatient (CLI) | payer MEDICARE, SELFPAY ==
[2022-06-08 15:41] LABS: Anion Gap 6 (5-15); BUN 21 mg/dL (7-18); Calcium,Total 9.3 mg/dL (8.5-10.1); Chloride 105 mmol/L (98-107); Creatinine, Serum 1.31 mg/dL (0.70-1.30); EST Glomerular Filtration Rate 56 mL/min (>60); Est Glom Filt Rate - Afr Amer 68 mL/min (>60); Glucose 123 mg/dL (74-106); PSA,Total- Diagnostic 0.34 ng/mL (0.0-4.0); Potassium 4.3 mmol/L (3.5-5.1); Sodium Level 140 mmol/L (136-145)
== END | disposition home or self-care (01) ==
LOC: LAB 14:04
PROVIDERS: Nurse Practitioner Family; PCP Family Medicine; Referring Provider Registered Nurse; Visit Provider Registered Nurse
DX: C61 Malignant neoplasm of prostate (principal)
CPT/HCPCS: 36415; 80048; 84153

== ENCOUNTER → 2022-08-08 | Outpatient (CLI) | payer MEDICARE, SELFPAY ==
--- NOTE | 2022-08-08 09:15 | MRI_ITS ---
INDICATION: CERVICAL DDD.Neck and left greater than right shoulder pain. Prostate cancer. EXAMINATION: MRI - MR Spine Cervical W/O Contrast TECHNIQUE: Multiplanar and multisequence MR images of the cervical spine were performed. IV Contrast Dosage and Agent: None. COMPARISON: None. FINDINGS: No fracture or acute osseous abnormality. Disc space loss and degenerative endplate signal changes and irregularity most prominent from C4 through C7. Mild, 2 mm, degenerative anterolisthesis of C7 on T1. Alignment otherwise anatomic. Normal volume and signal of the cervical spinal cord. Mild degenerative changes at the craniocervical junction and C1-2 but with no narrowing of the spinal canal. At C2-3, small disc bulge and mild facet degeneration causes only mild narrowing of the spinal canal. Disc and osteophyte extend into and cause mild right and moderate left foraminal narrowing. At C3-4, broad-based disc bulge with underlying osteophytes causes only mild narrowing of the spinal canal. Disc and osteophyte extend into and cause high-grade bilateral foraminal narrowing. At C4-5, vertebral body osteophytes cause only mild narrowing of the spinal canal. Uncovertebral joint extension causes high-grade bilateral foraminal narrowing. At C5-6, vertebral body osteophytes cause only mild narrowing of the spinal canal. Uncovertebral joint extension causes moderate right and high-grade left foraminal narrowing. At C6-7, broad-based disc bulge with underlying osteophytes causes only mild spinal canal narrowing. Uncovertebral joint extension causes high-grade right and moderate left foraminal narrowing. At C7-T1 there is no significant narrowing. The paraspinal soft tissues are unremarkable. MRI/Spine Cervical (Routine) IMPRESSION: Multilevel high-grade foraminal narrowing may cause radiculopathy; bilaterally at C3-4 and C4-5, on the left at C5-6, and on the right at C6-7. Multilevel disc degeneration which could cause discogenic pain. Electronically Signed: Cliff Conte MD at 3:18 EST Reading Location ID and State: [facility] [place] Tel , Service support ,
== END | disposition home or self-care (01) ==
LOC: MRI 08:48
PROVIDERS: PCP Family Medicine; Referring Provider Anesthesiology Pain Medicine; Visit Provider Anesthesiology Pain Medicine
DX: M50.30 Other cervical disc degeneration, unspecified cervical region (principal); M47.812 Spondylosis without myelopathy or radiculopathy, cervical region
CPT/HCPCS: 72141

== ENCOUNTER → 2022-10-11 | Outpatient (CLI) | payer MEDICARE, SELFPAY ==
[2022-10-11 11:49] LABS: PSA,Total- Diagnostic 0.76 ng/mL (0.0-4.0)
== END | disposition home or self-care (01) ==
LOC: LAB 10:14
PROVIDERS: PCP Family Medicine; Referring Provider Registered Nurse; Visit Provider Registered Nurse
DX: C61 Malignant neoplasm of prostate (principal)
CPT/HCPCS: 36415; 84153

== ENCOUNTER 2023-01-21 10:46 | Emergency (ER) | payer MEDICARE, SELFPAY ==
[2023-01-21 10:47] VITALS: BP 119/70; PULSE 120; RESP 18; TEMP 36.2; O2SAT 99
[2023-01-21 11:01] VITALS: PULSE 106; RESP 22; O2SAT 92
--- NOTE | 2023-01-21 11:05 | CT_ITS ---
HISTORY: trauma. TECHNIQUE: Multiple axial images were obtained of the head without intravenous contrast. A radiation dose optimization technique was used for this scan. 259 images. COMPARISON: 11/12/2020. FINDINGS: BRAIN PARENCHYMA: Multiple foci and zones of low attenuation in the bilateral cerebral white matter compatible with chronic small vessel ischemic gliosis. No acute intra-axial hemorrhage identified. CSF SPACES: Generalized volume loss. No midline shift or other significant mass effect. No acute extra-axial hemorrhage seen. OTHER: Intact calvarium. Chronic left maxillary sinusitis. Lens resections. CT/Brain/Head without Contrast IMPRESSION: No acute intracranial process identified. Chronic involutional and white matter changes. Electronically Signed: Ruby Tay MD at 11:48 EDT ,
--- NOTE | 2023-01-21 11:05 | CT_ITS ---
HISTORY: trauma. TECHNIQUE: Helically acquired images were obtained of the cervical spine without contrast. 2D reformatted images were reviewed. A radiation dose optimization technique was used for this scan. 444 images. COMPARISON: MRI 08/08/2022. FINDINGS: VERTEBRAE: Vertebral body heights maintained. No acute fracture identified. ALIGNMENT: No significant anterior or posterior subluxation. Straightening of the cervical lordosis. INTERVERTEBRAL DISCS: Degenerative endplate changes of C4-5, C5-6, and C6-7 with intervertebral disc space narrowing. Posterior disc bulge osteophyte complexes without central canal stenosis. Foraminal narrowing at multiple levels. SOFT TISSUES: No prevertebral soft tissue swelling. CT/Spine Cervical without Contras IMPRESSION: No evidence for acute fracture or dislocation in the cervical spine. Multilevel degenerative disc disease. Electronically Signed: Ruby Tay MD at 11:51 EDT ,
--- NOTE | 2023-01-21 11:08 | EX.ED.DYSGE1 ---
HPI History of Present Illness Chief Complaint: Palpitations Detail of Chief Complaint: Palpitations, weakness, fall Informant: patient Narrative Narrative: Patient presents with his family for evaluation of multiple symptoms. His primary complaint is palpitations. He feels like his heart is racing and skipping beats this morning. He does have a history of atrial fibrillation. He took his Cardizem approximately 1 hour ago which states is a little later than he normally does. He denies chest pain. Daughter states he has not been feeling well this past week. Yesterday he fell in the driveway. found him lying face down but because they were able to get him up and into a chair they did not feel that he needed to come to the emergency room at that time. He is not on anticoagulants. is unsure how long he may have been lying there. He does report runny nose and cough last evening which is not normal for him. 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 insufficiency Other secondary pulmonary hypertension Parkinsons disease Persistent atrial fibrillation Prostate cancer Home Medications calcium carbonate 600 mg-vitamin D3 12.5 mcg (500 unit) capsule (Calcium 600 with Vitamin D3) 1 cap PO DAILY Vitamin 09/25/20 [History Last Taken 09/09/21] carbidopa ER 50 mg-levodopa 200 mg tablet,extended release 1 tablet PO TID parkinsons 09/25/20 [History Last Taken 09/09/21] dorzolamide 22.3 mg-timolol 6.8 mg/mL eye drops 1 - 2 drp ophthalmic (eye) BID glaucoma 09/25/20 [History Last Taken 09/09/21] prednisolone acetate 1 % eye drops,suspension 1 drp LEFT EYE DAILY vision 11/13/20 [History Last Taken 09/09/21] atenolol 50 mg tablet 50 mg PO DAILY heart/blood pressure 04/28/21 [History Last Taken 09/09/21] pramipexole 0.5 mg tablet 0.5 mg PO BID 04/28/21 [History Last Taken 09/09/21] ascorbic acid (vitamin C) 500 mg tablet 1,000 mg PO DAILY SUPPLEMENT 09/10/21 [History Last Taken 09/09/21] latanoprost 0.005 % eye drops 1 drp RIGHT EYE QHS 09/10/21 [History Last Taken 09/09/21] memantine 10 mg tablet 10 mg PO BID MEMORY 09/10/21 [History Last Taken 09/09/21] acetaminophen 500 mg tablet 500 - 1,000 mg PO BID PRN Pain 11/10/21 [History Last Taken Unknown] diltiazem HCl 120 mg capsule,24 hr,extended release See Rx Instructions .Route .COMPLEX #90 CAPSULES 02/09/22 [Rx Last Taken Unknown] potassium chloride 20 mEq tablet,extended release See Rx Instructions .Route .COMPLEX #90 TABLETS 03/23/22 [Rx Last Taken Unknown] aspirin 81 mg tablet,delayed release 81 mg PO DAILY HEALTH #90 tabs 05/10/22 [Rx Last Taken Unknown] furosemide 40 mg tablet 40 mg PO DAILY FLUID #90 tabs 06/10/22 [Rx Last Taken Unknown] Allergy/AdvReac Type Severity Reaction Status Date / Time lidocaine Allergy Angioedema Verified 01/21/23 10:47 peppermint Allergy Angioedema Verified 01/21/23 10:47 phenylephrine Allergy Angioedema Verified 01/21/23 10:47 Family History Brother Atrial fibrillation Surgical History History of cataract extraction History of hernia repair History of incision and drainage (~09/2021) Social History Smoking Status: Never smoker alcohol intake: never substance use type: does not use caffeine: Yes Type: carbonated beverages Number of servings: 1 ROS ROS ED Constitutional Constitutional ED: Denies chills or fever(s) Eyes Eyes: Denies change in vision or discharge from eye(s) ENT ENT ED: Denies discharge from eye(s), rhinorrhea or sore throat Cardiovascular Cardiovascular: Reports palpitations; Denies chest pain Respiratory/Chest Respiratory/Chest: Denies cough or dyspnea Gastrointestinal Gastrointestinal: Denies abdominal pain, nausea or vomiting Genitourinary Genitourinary ED: Denies dysuria Musculoskeletal Musculoskeletal: Reports back pain; Denies extremity pain Integumentary Denies Abrasions or rash Neurologic Neurologic: Reports weakness; Denies headache(s) Psychiatric Psychiatric: Denies anxiety or depression Allergic/Immunologic Allergic/Immunologic ED: Denies lip swelling or urticaria EXAM Physical Exam Const Vital Signs: 01/21/23 10:47 01/21/23 11:01 01/21/23 11:06 Temperature 97.2 F L Temperature Source Temporal Pulse Rate 120 H 106 H Respiratory Rate 18 22 H Respiratory Effort Normal Non-Labored Blood Pressure 119/70 Blood Pressure Mean 86 Pulse Ox 99 92 Oxygen Delivery Method Room Air Room Air Positive well nourished and well developed General Appearance ED: well developed HEENT Reports normocephalic and head/scalp atraumatic Eyes PERRL and EOMs intact bilaterally Neck supple Chest Wall inspection of chest normal and palpation of chest normal Resp normal respiratory effort and clear to auscultation bilaterally Cardio Rhythm: abnormal rhythm irregularly irregular GI non-tender Auscultation: normoactive bowel sounds Palpation: soft Extremity Extremity Narrative: 3+ bilateral lower extremity edema. Mild erythema noted to the left leg. Small scabbed wound noted to the plantar surface of the left foot but no erythema surrounding this. Neuro oriented x3 Neuro Narrative: No focal neurologic deficits. Slight tremor noted from Parkinson's. Sensorium / Orientation: alert Psych mental status grossly normal MDM MDM MDM Narrative Medical decision making narrative: Patient placed on charger operator. EKG obtained to evaluate for cardiac arrhythmia/ischemia. Chest x-ray obtained to evaluate for acute lung pathology, cardiac size, or mediastinal abnormality. Labwork obtained to evaluate for leukocytosis, anemia, and electrolyte derangement. Urinalysis obtained to evaluate for infection/hematuria. CT scan of the head and C-spine obtained to evaluate for trauma given his recent fall. History & Record Review Discussion w/independent historian: Patient and Family Lab Data Attestation: I reviewed the patient's lab results. Labs: Laboratory Results - last 24 hr 01/21/23 01/21/23 10:55 12:35 WBC 10.7 RBC 5.19 Hgb 15.7 Hct 47.9 MCV 92.3 MCH 30.3 MCHC 32.8 RDW Std Deviation 52.2 H RDW Coeff of Manuela 15.5 H Plt Count 137 L MPV 11.5 Immature Gran % (Auto) 0.800 Neut % (Auto) 88.3 H Lymph % (Auto) 2.5 L [place] % (Auto) 8.3 Eos % (Auto) 0.0 Baso % (Auto) 0.1 Absolute Neuts (auto) 9.4 H Absolute Lymphs (auto) 0.27 L Nucleated RBC % 0 Differential Comment COMMENT Sodium 137 Potassium 3.6 Chloride 103 Carbon Dioxide 27.0 Anion Gap 7 BUN 22 H Creatinine 1.33 H Estim Creat Clear Calc 42.80 Est GFR (MDRD) Af Amer 67 Est GFR (MDRD) Non-Af 55 L BUN/Creatinine Ratio 16.5 Glucose 137 H Calcium 8.8 Total Creatine Kinase 89 Urine Color Yellow Urine Clarity Clear Urine pH 6.0 Ur Specific [place] 1.010 Urine Protein Negative Urine Glucose (UA) Normal Urine Ketones Negative Urine Occult Blood 10 H Urine Nitrite Negative Urine Bilirubin Negative Urine Urobilinogen Normal Ur Leukocyte Esterase Negative Urine RBC 0 SEEN Urine WBC 0 SEEN Ur Squamous Epith Cells 0 SEEN Urine Bacteria 0 SEEN Urine Mucus 0 SEEN Radiography Chest X-Ray - ED: 2 View, Read by ED Physician, Chronic Changes and No Infiltrates Diagnostic Testing: Clinical Impression(s) from Imaging Studies Brain CT 01/21/23 11:05 IMPRESSION: No acute intracranial process identified. Chronic involutional and white matter changes. Electronically Signed: Ruby Tay MD at 11:48 EDT , Cervical Spine CT 01/21/23 11:05 IMPRESSION: No evidence for acute fracture or dislocation in the cervical spine. Multilevel degenerative disc disease. Electronically Signed: Ruby Tay MD at 11:51 EDT , Chest X-Ray 01/21/23 11:25 IMPRESSION: Mild opacities in the mid to lower lungs, which may be infectious or inflammatory. Electronically Signed: Ruby Tay MD at 11:53 EDT , EKG Initial EKG: Attestation: I personally reviewed and interpreted this EKG as follows: Interpretation: Atrial Fibrillation (Atrial fibrillation with ventricular rate of 101. No acute ischemia.) Treatment and Re-Evaluation :: CBC was normal white count at 10.7 with a hemoglobin of 15.7. Platelet count is slightly low at 137,000. 88% neutrophils are noted indicating left shift. Chemistry studies reveal a BUN of 22 and a creatinine 1.33. Total CK obtained given the patient's fall yesterday and is normal at 89. Urinalysis reveals no evidence of infection. EKG is atrial fibrillation with no evidence of ischemia. During observation in the emergency room patient's heart rate came down into the 70s, as he had taken his blood pressure/rate control medication approximately 1 hour prior to arrival. CT scan of the head and C-spine revealed no acute findings. Two-view chest x-ray per my interpretation feels chronic changes. Radiology interpretation is reviewed and does feel there are mild opacities in the lower lung bases. This may represent inflammatory or infectious process. Patient and family have stated that he has had cough and congestion over the past couple days with increased weakness. In light of this I will cover him with Zithromax, first dose given here. Patient is comfortable with the plan and return instructions have been given. *Patient discharged during a time of computer downtime and was given printed discharge instructions and handwritten prescription. Discharge Plan Triage Chief Complaint: Palpitations ED Provider: Luna Kurtz Dx/Rx/DC Orders Clinical Impression: Atrial fibrillation, Bronchitis, Fall Prescriptions: No Action atenolol 50 mg tablet 50 mg PO DAILY pramipexole 0.5 mg tablet 0.5 mg PO BID carbidopa-levodopa 50-200 mg tablet extended release 1 tablet PO TID dorzolamide-timolol 22.3-6.8 mg/mL drops 1 - 2 drp OPHTHALMIC BID calcium carbonate-vitamin D3 [Calcium 600 with Vitamin D3] 600 mg(1,500mg) -500 unit capsule 1 cap PO DAILY prednisolone acetate 1 % drops,suspension 1 drp LEFT EYE DAILY Patient Comments: instill 1 drop into left eye twice a day latanoprost 0.005 % drops 1 drp RIGHT EYE QHS ascorbic acid (vitamin C) 500 mg Tablet 1,000 mg PO DAILY memantine 10 mg tablet 10 mg PO BID acetaminophen [Tylenol Ex Str Rapid Release] 500 mg Tablet 500 - 1,000 mg PO BID PRN (Reason: Pain) diltiazem HCl 120 mg capsule,extended release 24 hr See Rx Instructions .ROUTE .COMPLEX Qty: 90 3RF Dose Instruction: take 1 capsule by mouth once daily Rx Instructions: take 1 capsule by mouth once daily potassium chloride 20 mEq tablet extended release See Rx Instructions .ROUTE .COMPLEX Qty: 90 3RF Dose Instruction: take 1 tablet by mouth once daily Rx Instructions: take 1 tablet by mouth once daily aspirin 81 mg tablet,delayed release (DR/EC) 81 mg PO DAILY Qty: 90 3RF furosemide 40 mg tablet 40 mg PO DAILY Qty: 90 3RF Primary Care Provider: Masoud Rosa Referrals: Masoud Rosa MD [Primary Care Provider] - Disposition Disposition: Home, Self Care
[2023-01-21 11:12] VITALS: BMI 31.3
[2023-01-21 11:20] LABS: Absolute Lymphocyte Count 0.27 X10^3/uL (0.83-4.51); Absolute Neutrophil Count 9.4 X10^3/uL (2.0-7.7); Basophil# 0.01 X10^3/uL; Basophil% 0.1 % (0-1); Hematocrit 47.9 % (40-54); Hemoglobin 15.7 g/dL (13.0-16.5); Lymphocyte # 0.27 X10^3/ul (0.83-4.51); Lymphocyte % 2.5 % (19-41); Mean Corp Hgb Conc 32.8 g/dL (32-36); Mean Corpuscular Hgb 30.3 pg (27.0-32.0); Mean Corpuscular Volume 92.3 fL (80-94); Mean Platelet Vol. 11.5 fl (6.2-12.0); Monocyte# 0.88 X10^3/uL; Monocyte% 8.3 % (0-10); NRBC Flagged by Analyzer 0 % (0-5); Neutrophil % 88.3 % (47-70); POSITIVE DIFFERENTIAL YES; Platelet Count 137 K/mm3 (150-450); RBC Distribution Width CV 15.5 % (11.6-14.6); RBC Distribution Width SD 52.2 fl (35.1-43.9); Red Blood Count 5.19 M/mm3 (4.6-6.2); White Blood Count 10.7 K/mm3 (4.4-11.0)
[2023-01-21 11:21] LABS: Differential Indicated SCAN CRITERIA MET
--- NOTE | 2023-01-21 11:25 | RAD_ITS ---
HISTORY: cough. TECHNIQUE: XR Chest 2 Views. COMPARISON: 09/10/2021. FINDINGS: CARDIOMEDIASTINAL BORDERS: Cardiac silhouette within normal limits in size. Mediastinal contour unchanged with calcification and tortuosity of the aorta. LUNGS: Limited evaluation of the lung apices due to overlying material. Faint opacities in the midlungs and mild bibasilar opacities. Mild hyperinflation. PLEURA: No pneumothorax or pleural effusion identified. OSSEOUS STRUCTURES: Degenerative change. RAD/Chest PA and Lateral IMPRESSION: Mild opacities in the mid to lower lungs, which may be infectious or inflammatory. Electronically Signed: Ruby Tay MD at 11:53 EDT ,
[2023-01-21 11:37] LABS: Anion Gap 7 (5-15); BUN 22 mg/dL (7-18); BUN/Creat Ratio 16.5 RATIO (10-20); Calcium,Total 8.8 mg/dL (8.5-10.1); Chloride 103 mmol/L (98-107); Creatinine, Serum 1.33 mg/dL (0.70-1.30); EST Glomerular Filtration Rate 55 mL/min (>60); Est Glom Filt Rate - Afr Amer 67 mL/min (>60); Glucose 137 mg/dL (74-106); Potassium 3.6 mmol/L (3.5-5.1); Sodium Level 137 mmol/L (136-145)
[2023-01-21 11:40] LABS: CPK Total, Creatine Kinase 89 U/L (39-308)
[2023-01-21 12:42] LABS: Bacteria 0 SEEN /hpf (None Seen); Mucous, Urine 0 SEEN /hpf (<or=2+); Red Blood Cells-Urine 0 SEEN /hpf (0-5); Squamous Epithelial Cells - UA 0 SEEN /hpf (0-5); White Blood Cells 0 SEEN /hpf (0-5)
[2023-01-21 12:45] LABS: Color, Urine Yellow (Yellow); Glucose, Dipstick Normal (Normal); Ketone-Dipstick Negative (Negative); Leukocyte Esterase-Dipstick Negative /ul (Negative); Nitrite-Dipstick Negative (Negative); Occult Blood-Urine 10 /ul (Negative); Protein-Dipstick Negative (Negative); Urine Bilirubin Dipstick Negative (Negative); Urine Clarity Clear (Clear); Urine Urobilinogen Normal (Normal)
== END 2023-01-21 15:22 | disposition home or self-care (01) ==
PROVIDERS: Emergency Provider Emergency Medicine; PCP Family Medicine; Visit Provider Emergency Medicine
DX: I48.19 Other persistent atrial fibrillation (principal); G20 Parkinson's disease; I42.9 Cardiomyopathy, unspecified; I27.29 Other secondary pulmonary hypertension; J40 Bronchitis, not specified as acute or chronic; I10 Essential (primary) hypertension; M54.9 Dorsalgia, unspecified; X58.XXXA Exposure to other specified factors, initial encounter; Y92.89 Other specified places as the place of occurrence of the external cause
CPT/HCPCS: 70450; 71046; 72125; 80048; 81001; 82550; 85025; 87428; 93005; 99282

== ENCOUNTER 2023-03-19 14:36 | Emergency (ER) | payer MEDICARE, SELFPAY ==
[2023-03-19 14:37] VITALS: BP 102/66; PULSE 88; RESP 18; TEMP 36.2; O2SAT 93
[2023-03-19 14:43] VITALS: BMI 31.0
[2023-03-19 14:47] VITALS: BP 125/65; PULSE 84; RESP 18; TEMP 36.8; O2SAT 97
[2023-03-19 14:59] VITALS: BP 125/65; PULSE 73; RESP 18; O2SAT 96
[2023-03-19 15:20] VITALS: BP 90/59; PULSE 79; O2SAT 96
--- NOTE | 2023-03-19 15:20 | RAD_ITS ---
STUDY: X-RAY - LEFT FOOT CLINICAL: Male, 77 years old. Wound to dorsal 1st MTP joint TECHNIQUE: 3 view(s) of the foot. COMPARISON: None. FINDINGS: There is a plantar calcaneal spur. Normal visualized subtalar, talonavicular, calcaneocuboid, tarsal and tarsometatarsal articulations. Normal metatarsi. There is degenerative arthrosis of the metatarsophalangeal joint of the hallux . Normal tibial and fibular sesamoid bones. Normal interphalangeal joint of the great toe. Normal phalanges of the great toe. Normal second through fifth metatarsophalangeal joints. There is degenerative change of the interphalangeal joints and phalanges of the lesser toes. The soft tissue structures are unremarkable. There is no demonstrated fracture. RAD/Foot min 3 Views IMPRESSION: Degenerative change. No destruction. Electronically Signed: Jose Quick MD at 15:41 EDT ,
--- NOTE | 2023-03-19 15:33 | EX.ED.DYSGE1 ---
HPI <GLORIA Lomeli - Last Filed: 03/19/23 19:37> History of Present Illness Chief Complaint: Wound Narrative Narrative: Patient presenting today with a left foot wound. He reports that he has had a callus to his foot since November that seemed to break open a while back. He has been taking care of this at home and has not seen his PCP or a public service officer for this issue. Today, when he woke up he noticed swelling and erythema to his left foot and lower extremity. He denies any fever, chills, abdominal pain, nausea, or vomiting. PFSH <GLORIA Lomeli - Last Filed: 03/19/23 19:37> [facility] Medical History Atrial fibrillation Cardiomyopathy in other diseases classified elsewhere Chronic radiation cystitis DVT (deep venous thrombosis) History of blistering sunburn Hypertension Localized edema FCI use of drug Mitral valve insufficiency Other secondary pulmonary hypertension Parkinsons disease Persistent atrial fibrillation Prostate cancer Home Medications calcium carbonate 600 mg-vitamin D3 12.5 mcg (500 unit) capsule (Calcium 600 with Vitamin D3) 1 cap PO DAILY Vitamin 09/25/20 [History Last Taken 09/09/21] carbidopa ER 50 mg-levodopa 200 mg tablet,extended release 1 tablet PO TID parkinsons 09/25/20 [History Last Taken 09/09/21] dorzolamide 22.3 mg-timolol 6.8 mg/mL eye drops 1 - 2 drp ophthalmic (eye) BID glaucoma 09/25/20 [History Last Taken 09/09/21] prednisolone acetate 1 % eye drops,suspension 1 drp LEFT EYE DAILY vision 11/13/20 [History Last Taken 09/09/21] atenolol 50 mg tablet 50 mg PO DAILY heart/blood pressure 04/28/21 [History Last Taken 09/09/21] pramipexole 0.5 mg tablet 1 mg PO TID 04/28/21 [History Last Taken 09/09/21] ascorbic acid (vitamin C) 500 mg tablet 1,000 mg PO DAILY SUPPLEMENT 09/10/21 [History Last Taken 09/09/21] latanoprost 0.005 % eye drops 1 drp RIGHT EYE QHS 09/10/21 [History Last Taken 09/09/21] memantine 10 mg tablet 10 mg PO BID MEMORY 09/10/21 [History Last Taken 09/09/21] acetaminophen 500 mg tablet 500 - 1,000 mg PO BID PRN Pain 11/10/21 [History Last Taken Unknown] potassium chloride 20 mEq tablet,extended release See Rx Instructions .Route .COMPLEX #90 TABLETS 03/23/22 [Rx Last Taken Unknown] aspirin 81 mg tablet,delayed release 81 mg PO DAILY HEALTH #90 tabs 05/10/22 [Rx Last Taken Unknown] diltiazem HCl 120 mg capsule,24 hr,extended release See Rx Instructions .Route .COMPLEX #90 CAPSULES 02/03/23 [Rx Last Taken Unknown] tamsulosin 0.4 mg capsule 0.4 mg PO DAILY 03/14/23 [History Last Taken Unknown] torsemide 20 mg tablet 20 mg PO .COMPLEX 03/18/23 [History Last Taken Unknown] cephalexin 500 mg capsule 500 mg PO TID 7 days #21 caps 03/19/23 [Rx Last Taken Unknown] sulfamethoxazole 800 mg-trimethoprim 160 mg tablet (Bactrim DS) 1 tab PO BID #14 tabs 03/19/23 [Rx Last Taken Unknown] Allergy/AdvReac Type Severity Reaction Status Date / Time lidocaine Allergy Angioedema Verified 03/19/23 14:39 peppermint Allergy Angioedema Verified 03/19/23 14:39 phenylephrine Allergy Angioedema Verified 03/19/23 14:39 doxycycline AdvReac Intermediate SUNBURN Verified 03/19/23 14:53 Family History Brother Atrial fibrillation Surgical History History of cataract extraction History of hernia repair History of incision and drainage (~09/2021) Social History Smoking Status: Never smoker alcohol intake: never substance use type: does not use caffeine: Yes Type: carbonated beverages Number of servings: 1 ROS <GLORIA Lomeli - Last Filed: 03/19/23 19:37> ROS ED Constitutional Constitutional ED: Denies chills or fever(s) Cardiovascular Cardiovascular: Denies chest pain Respiratory/Chest Respiratory/Chest: Denies cough or dyspnea Gastrointestinal Gastrointestinal: Denies abdominal pain, nausea or vomiting Musculoskeletal Musculoskeletal: Denies arthralgias or myalgias Integumentary Denies rash Neurologic Neurologic: Denies weakness EXAM <GLORIA Lomeli - Last Filed: 03/19/23 19:37> Physical Exam Const Vital Signs: 03/19/23 14:37 03/19/23 14:47 03/19/23 14:59 Temperature 97.2 F L 98.3 F Temperature Source Temporal Oral Pulse Rate 88 84 73 Respiratory Rate 18 18 18 Blood Pressure 102/66 125/65 H 125/65 H Blood Pressure Mean 78 85 85 Pulse Ox 93 97 96 Oxygen Delivery Method Room Air Room Air Room Air 03/19/23 15:20 03/19/23 16:10 03/19/23 17:03 Temperature 98.2 F 98.0 F Temperature Source Oral Oral Pulse Rate 79 82 66 Respiratory Rate 18 18 Blood Pressure 90/59 L 100/61 108/64 Blood Pressure Mean 69 74 78 Pulse Ox 96 96 95 Oxygen Delivery Method Room Air Room Air Room Air 03/19/23 17:03 03/19/23 17:03 Temperature Temperature Source Pulse Rate 66 66 Respiratory Rate 18 18 Blood Pressure 108/64 108/64 Blood Pressure Mean 78 Pulse Ox 95 95 Oxygen Delivery Method Room Air Positive well nourished, well developed and no apparent distress General Appearance ED: well developed HEENT Reports normocephalic and head/scalp atraumatic Mouth ED: Yes moist mucous membranes normal Eyes PERRL and EOMs intact bilaterally Neck full ROM and supple Chest Wall inspection of chest normal Resp normal respiratory effort and clear to auscultation bilaterally Cardio regular rate and regular rhythm GI soft to palpation, non-tender, non-distended and no masses Back/Spine normal ROM and normal to inspection Extremity full ROM Extremity Narrative: 2+ pitting edema to the lower extremities bilaterally below the knee. Erythema to the dorsal aspect of the left foot and to the middle portion of the left lower leg. Erythema to the left lower leg more consistent with venous stasis changes as patient reports that is there chronically. No lymphangitic streaking. DP pulses 2+ and equal bilaterally, good capillary refill, sensation intact. Wound to the plantar aspect of the left first MTP joint. Neuro oriented x3, CN's II-XII intact bilaterally, moves all extremities, no focal motor deficits and no sensory deficits noted Sensorium / Orientation: awake and alert Psych mental status grossly normal and thought process normal Skin no rashes or lesions noted and no wounds <Dr. Dave Garcia MD - Last Filed: 03/19/23 20:24> Physical Exam Const Vital Signs: 03/19/23 14:37 03/19/23 14:47 03/19/23 14:59 Temperature 97.2 F L 98.3 F Temperature Source Temporal Oral Pulse Rate 88 84 73 Respiratory Rate 18 18 18 Blood Pressure 102/66 125/65 H 125/65 H Blood Pressure Mean 78 85 85 Pulse Ox 93 97 96 Oxygen Delivery Method Room Air Room Air Room Air 03/19/23 15:20 03/19/23 16:10 03/19/23 17:03 Temperature 98.2 F 98.0 F Temperature Source Oral Oral Pulse Rate 79 82 66 Respiratory Rate 18 18 Blood Pressure 90/59 L 100/61 108/64 Blood Pressure Mean 69 74 78 Pulse Ox 96 96 95 Oxygen Delivery Method Room Air Room Air Room Air 03/19/23 17:03 03/19/23 17:03 Temperature Temperature Source Pulse Rate 66 66 Respiratory Rate 18 18 Blood Pressure 108/64 108/64 Blood Pressure Mean 78 Pulse Ox 95 95 Oxygen Delivery Method Room Air [facility] <GLORIA Lomeli - Last Filed: 03/19/23 19:37> [facility] Narrative Medical decision making narrative: Patient presenting due to concerns for cellulitis to his left foot. He does have a small wound to the plantar aspect of his left foot to the area of the first MTP joint. He is well-appearing and in no acute distress, vitals noted, he is afebrile. He is nontoxic-appearing. He does have erythema to the dorsal aspect of the left big toe and medial aspect of the foot as well as the anterior portion of the left lower extremity. Patient reports chronic erythema to this area consistent with venous stasis dermatitis, but states that the erythema is worse today. Labs obtained to rule out leukocytosis, anemia, electrolyte abnormality, x-ray of the left foot obtained to rule out osteomyelitis. X-ray is unremarkable, he does have a slight leukocytosis, ESR is WNL, CRP slightly elevated. At this time I do think that patient can be placed on outpatient antibiotics. He will be started on Keflex and Bactrim with first dose here. He has been given very strict return instructions. He will be discharged home in stable condition and is comfortable with plan. I have given him a referral for podiatry and is to follow-up with his PCP as well. Lab Data Attestation: I reviewed the patient's lab results. Labs: Laboratory Results - last 24 hr 03/19/23 15:10 WBC 12.2 H RBC 4.81 Hgb 14.9 Hct 44.3 MCV 92.1 MCH 31.0 MCHC 33.6 RDW Std Deviation 55.5 H RDW Coeff of Manuela 16.3 H Plt Count 168 MPV 12.0 Immature Gran % (Auto) 1.800 H Neut % (Auto) 85.5 H Lymph % (Auto) 3.1 L Howell % (Auto) 9.1 Eos % (Auto) 0.2 Baso % (Auto) 0.3 Absolute Neuts (auto) 10.5 H Absolute Lymphs (auto) 0.38 L Nucleated RBC % 0 Differential Comment SCANNED ESR 13 Sodium 138 Potassium 4.5 Chloride 107 Carbon Dioxide 21.0 Anion Gap 10 BUN 22 H Creatinine 1.20 Estim Creat Clear Calc 47.43 Est GFR (MDRD) Af Amer 75 Est GFR (MDRD) Non-Af 62 BUN/Creatinine Ratio 18.3 Glucose 183 H Calcium 9.0 C-React Prot Ext Range 42.20 H Radiography X-Ray: Read by ED Physician and Read by Radiologist Diagnostic Testing: Clinical Impression(s) from Imaging Studies Foot X-Ray 03/19/23 15:20 IMPRESSION: Degenerative change. No destruction. Electronically Signed: Jose Quick MD at 15:41 EDT , <Dr. Dave Garcia MD - Last Filed: 03/19/23 20:24> [facility] Lab Data Labs: Laboratory Results - last 24 hr 03/19/23 15:10 WBC 12.2 H RBC 4.81 Hgb 14.9 Hct 44.3 MCV 92.1 MCH 31.0 MCHC 33.6 RDW Std Deviation 55.5 H RDW Coeff of Manuela 16.3 H Plt Count 168 MPV 12.0 Immature Gran % (Auto) 1.800 H Neut % (Auto) 85.5 H Lymph % (Auto) 3.1 L Howell % (Auto) 9.1 Eos % (Auto) 0.2 Baso % (Auto) 0.3 Absolute Neuts (auto) 10.5 H Absolute Lymphs (auto) 0.38 L Nucleated RBC % 0 Differential Comment SCANNED ESR 13 Sodium 138 Potassium 4.5 Chloride 107 Carbon Dioxide 21.0 Anion Gap 10 BUN 22 H Creatinine 1.20 Estim Creat Clear Calc 47.43 Est GFR (MDRD) Af Amer 75 Est GFR (MDRD) Non-Af 62 BUN/Creatinine Ratio 18.3 Glucose 183 H Calcium 9.0 C-React Prot Ext Range 42.20 H Radiography Diagnostic Testing: Clinical Impression(s) from Imaging Studies Foot X-Ray 03/19/23 15:20 IMPRESSION: Degenerative change. No destruction. Electronically Signed: Jose Quick MD at 15:41 EDT Reading Location ID and State: [address] [place] [address] , Service support , Treatment and Re-Evaluation Comments:: I saw the patient with the [facility]. I performed a [id number] evaluation. Patient presents with a left foot infection. He believes the callus got infected to the base of his left great toe. Associated with surrounding erythema. No drainage. No trauma. Vital signs reviewed. Erythema to his foot and distal lower leg. 4 mm wound to the ball of his left foot with no drainage or bleeding. X-rays negative for osteo-. Labs as above. Patient has good circulation, pulses. We will place him on Bactrim and Keflex and have him follow-up for wound checks as an outpatient. Advised this may worsen, and return for any new or worsening issues. Impression #1 left foot wound Impression #2 left lower extremity cellulitis Discharge Plan Triage Chief Complaint: Wound ED Midlevel Provider: Lizzie Schreiber ED Provider: Dave Garcia Dx/Rx/DC Orders Clinical Impression: Wound of foot, Cellulitis of foot, left Instructions: Cellulitis Dc Prescriptions: New cephalexin 500 mg capsule 500 mg PO TID 7 Days Qty: 21 0RF sulfamethoxazole-trimethoprim [Bactrim DS] 800-160 mg tablet 1 tab PO BID Qty: 14 0RF No Action atenolol 50 mg tablet 50 mg PO DAILY pramipexole 0.5 mg tablet 1 mg PO TID carbidopa-levodopa 50-200 mg tablet extended release 1 tablet PO TID dorzolamide-timolol 22.3-6.8 mg/mL drops 1 - 2 drp OPHTHALMIC BID calcium carbonate-vitamin D3 [Calcium 600 with Vitamin D3] 600 mg(1,500mg) -500 unit capsule 1 cap PO DAILY tamsulosin 0.4 mg capsule 0.4 mg PO DAILY prednisolone acetate 1 % drops,suspension 1 drp LEFT EYE DAILY Patient Comments: instill 1 drop into left eye twice a day latanoprost 0.005 % drops 1 drp RIGHT EYE QHS Hold Instructions: Pt has been DC'd ascorbic acid (vitamin C) 500 mg Tablet 1,000 mg PO DAILY memantine 10 mg tablet 10 mg PO BID acetaminophen [Tylenol Ex Str Rapid Release] 500 mg Tablet 500 - 1,000 mg PO BID PRN (Reason: Pain) potassium chloride 20 mEq tablet extended release See Rx Instructions .ROUTE .COMPLEX Qty: 90 3RF Dose Instruction: take 1 tablet by mouth once daily Rx Instructions: take 1 tablet by mouth once daily aspirin 81 mg tablet,delayed release (DR/EC) 81 mg PO DAILY Qty: 90 3RF diltiazem HCl 120 mg capsule,extended release 24 hr See Rx Instructions .ROUTE .COMPLEX Qty: 90 3RF Dose Instruction: take 1 capsule by mouth once daily Rx Instructions: take 1 capsule by mouth once daily torsemide 20 mg tablet 20 mg PO .COMPLEX Rx Instructions: 20 mg orally daily as needed for swelling, shortness of breath or weight gain; Primary Care Provider: Masoud Rosa Referrals: Masoud Rosa MD [Primary Care Provider] - Dylan Salazar DPM [Med Staff - Active Staff] - 3-5 Days Activity Restrictions/Additional Instructions: Please follow-up with your PCP and the public service officer. Take antibiotic as prescribed. Return for any worsening of your symptoms. Disposition Disposition: Home, Self Care Discharge Date/Time: 03/19/23 17:08
[2023-03-19 16:09] LABS: Erythrocyte Sedimentation Rate 13 mm/hr (0-20)
[2023-03-19 16:10] VITALS: BP 100/61; PULSE 82; RESP 18; TEMP 36.8; O2SAT 96
[2023-03-19 16:10] LABS: Absolute Lymphocyte Count 0.38 X10^3/uL (0.83-4.51); Absolute Neutrophil Count 10.5 X10^3/uL (2.0-7.7); Basophil# 0.04 X10^3/uL; Basophil% 0.3 % (0-1); Eosinophil# 0.02 X10^3/uL; Eosinophils% 0.2 % (0-5); Hematocrit 44.3 % (40-54); Hemoglobin 14.9 g/dL (13.0-16.5); Lymphocyte # 0.38 X10^3/ul (0.83-4.51); Lymphocyte % 3.1 % (19-41); Mean Corp Hgb Conc 33.6 g/dL (32-36); Mean Corpuscular Volume 92.1 fL (80-94); Monocyte# 1.11 X10^3/uL; Monocyte% 9.1 % (0-10); NRBC Flagged by Analyzer 0 % (0-5); Neutrophil # 10.46 X10^3/uL (2.7-7.7); Neutrophil % 85.5 % (47-70); POSITIVE DIFFERENTIAL YES; Platelet Count 168 K/mm3 (150-450); RBC Distribution Width CV 16.3 % (11.6-14.6); RBC Distribution Width SD 55.5 fl (35.1-43.9); Red Blood Count 4.81 M/mm3 (4.6-6.2); White Blood Count 12.2 K/mm3 (4.4-11.0)
[2023-03-19 16:11] LABS: Differential Indicated SCAN CRITERIA MET
[2023-03-19 16:31] LABS: Anion Gap 10 (5-15); BUN 22 mg/dL (7-18); BUN/Creat Ratio 18.3 RATIO (10-20); Chloride 107 mmol/L (98-107); EST Glomerular Filtration Rate 62 mL/min (>60); Est Glom Filt Rate - Afr Amer 75 mL/min (>60); Estimated Creatinine Clearance 47.43 ml/min; Glucose 183 mg/dL (74-106); Potassium 4.5 mmol/L (3.5-5.1); Sodium Level 138 mmol/L (136-145)
[2023-03-19 16:42] LABS: Differential Comment SCANNED
[2023-03-19] MEDS: Cephalexin 250 MG Capsule 500 MG PO (16:57)
[2023-03-19] MEDS: Smz/Tmp Ds Tablet 1 TABLET PO (16:57)
[2023-03-19 17:03] VITALS: BP 108/64; PULSE 66; RESP 18; TEMP 36.7; O2SAT 95
== END 2023-03-19 17:08 | disposition home or self-care (01) ==
PROVIDERS: Physician Assistant; Emergency Provider Emergency Medicine; PCP Family Medicine; Visit Provider Emergency Medicine
DX: L03.116 Cellulitis of left lower limb (principal); G20 Parkinson's disease; I42.9 Cardiomyopathy, unspecified; I48.19 Other persistent atrial fibrillation; S91.302A Unspecified open wound, left foot, initial encounter; X58.XXXA Exposure to other specified factors, initial encounter; R60.0 Localized edema; I10 Essential (primary) hypertension; Z79.82 Long term (current) use of aspirin; Z79.899 Other long term (current) drug therapy
CPT/HCPCS: 73630; 80048; 85025; 85652; 86140; 99283; A4216

== ENCOUNTER → 2023-04-25 | Outpatient (CLI) | payer MEDICARE, SELFPAY | END | disposition home or self-care (01) | PROVIDERS: PCP Family Medicine; Referring Provider Urology; Visit Provider Urology | DX: C61 Malignant neoplasm of prostate (principal) | CPT/HCPCS: 36415; 84153 ==

== ENCOUNTER → 2023-05-03 | Outpatient (CLI) | payer MEDICARE, SELFPAY ==
--- NOTE | 2023-05-03 11:00 | PET_ITS ---
EXAMINATION: 18 F Pylarify PET-CT HISTORY: A 77-year-old male with history of primary prostate carcinoma presenting for restaging examination. COMPARISON EXAMINATION: None available INDEX LESION SIZE PROMISE SCORE SUV INTERPRETATION Left retroclavicular, left axillary, anterior mediastinum, left anterior neck 23.1-mm (largest) 3 77.49 (max) Fulfills quantitative criteria for viable neoplasm Abdominal retroperitoneum, right hemipelvis 22.7-mm 3 83.84 Fulfills quantitative criteria for viable neoplasm TECHNIQUE: Following the intravenous administration of 9.73 mCi of 18 F Pylarify via the right wrist, image acquisitions of the head, neck, chest, abdomen and pelvis to the level of the mid thigh at 73 minutes post-tracer distribution reveal: The examination was interpreted using the EANM (Lyudmila et al., Journal of Nuclear Medicine Molecular Imaging 44:1622, 2017) and PROMISE (Delaney et al., Journal of Nuclear Medicine 59:469, 2018) interpretive criteria. HEIGHT: 67 inches. WEIGHT: 190 lbs. PSMA expression score PROMISE criteria: High (3): SUV ? parotid-salivary gland, intermediate (2): SUV ? liver, low (1): > blood pool, < liver, (0): < blood pool. SUV reference values: Parotid glands 20.68. Normal liver parenchyma 8.4. Blood pool 2.1. FINDINGS: Head/Neck: Symmetric radiopharmaceutical concentration is defined in the bilateral parotid and submandibular glands. There is physiologic uptake within the nasal cavity. There is no evidence of abnormal increased tracer concentration within the cranial vault. CHEST: Facilitated uptake is noted in the anterior mediastinum to the left of the midline, the left retroclavicular, left axillary lymph node basins, left anterior neck involving level . The calculated maximal standard uptake value is 77.49. The PROMISE score is 3. The largest corresponding soft tissue density is 23.1-mm. Pertinent chest CT findings are as follows. There are no parenchymal densities-nodules defined in the right and left hemithorax with quantitatively significant increased radiotracer. There is atherosclerotic calcification defined in the thoracic aorta without evidence of dilatation-aneurysm formation. Additional left and visualized right axillary soft tissue densities are ametabolic. Mediastinal soft tissue reveals no evidence of increased tracer uptake. Abdomen/Pelvis: Enhanced radiotracer is defined in the bilateral retrocrural regions of the upper abdomen, mid-lower abdominal retroperitoneum, right upper abdominal retroperitoneum in the superior mesenteric lymph node basin and right upper pelvis to include the lateral aortic lymph node basin bilaterally and right common iliac lymph node region. The calculated maximal standard uptake value is 83.84, the PROMISE score is 3. The largest corresponding soft tissue density demonstrates a maximal axial diameter of 22.7-mm. Physiologic radiopharmaceutical concentration is otherwise noted in the hepatic and splenic parenchyma, visualized intestinal tract, right and left kidneys, urinary bladder. Review of CT of the abdomen and pelvis reveals the following. Cyst formation is defined in the right kidney. There is atherosclerotic calcification defined in the abdominal aorta without evidence of dilatation-aneurysm formation. Pelvic arterial calcification is observed. Fat containing bilateral inguinal hernias are demonstrated. Right and left inguinal soft tissue densities are ametabolic. Calcified phlebolith is encountered in the bilateral lower hemipelvis. SKELETAL: Degenerative changes are noted in the cervical, thoracic and lumbar spine without evidence of increased radiopharmaceutical concentration. PET/PET/CT Tumor Limited Subs IMPRESSION: 1. ABNORMAL EXAMINATION INDICATIVE OF MALIGNANT VIABLE NEOPLASM. 2. The increase in radiopharmaceutical concentration defined in the left retroclavicular, left axillary, anterior mediastinal and left anterior neck fulfill quantitative criteria for malignant transformation. 3. Facilitated uptake noted in the abdominal retroperitoneum and right hemipelvis fulfill quantitative criteria for malignant involvement. (Eiber et al., Journal of Nuclear Medicine 59:469, 2018). Electronic Signature Jayme Godinez DO Accurate Quantification of SUVs and standardized PROMISE scores for this report are calculated using the exclusive [employer], ([place] Patent No. [id number] [phone] [place] patent [phone] ). Standardization and correction of the FDG SUV metric exclusively available with [employer] intellectual property, allow for vendor non-specific objective quantitative sequential FDG PET-CT comparison and otherwise unobtainable optimization of the sensitivity and specificity of the examination. [email or web address] Electronically Signed: Jayme Godinez DO at 20:40 EST ,
== END | disposition home or self-care (01) ==
PROVIDERS: PCP Family Medicine; Referring Provider Urology; Visit Provider Urology
DX: C61 Malignant neoplasm of prostate (principal); R97.21 Rising PSA following treatment for malignant neoplasm of prostate
CPT/HCPCS: 78814; A9588

== ENCOUNTER 2023-08-05 12:05 | Inpatient (IN) | payer MEDICARE, SELFPAY ==
[2023-08-05] VITALS (13 sets, daily range): BP systolic 77–112; BP diastolic 50–73; PULSE 52–90; RESP 12–18; TEMP 36.1–38.3; O2SAT 92–96; BMI 32.2; BMI 31.7
--- NOTE | 2023-08-05 12:29 | EX.ED.DYSGE1 ---
HPI History of Present Illness Chief Complaint: Complaint Informant: patient and family Onset/Context/Timing Onset: Today Narrative Narrative: Patient presents secondary to dysuria and fever. He has had recent UTIs and was started on Bactrim 2 days ago. Apparently urine culture is pending. Patient states last evening he got fever and feels generally weak. He does have some pain in his neck and states he fell 2 weeks ago. He did not take anything this morning for fever. He does report some intermittent dysuria. [facility] Medical History Atrial fibrillation Cardiomyopathy in other diseases classified elsewhere Chronic radiation cystitis DVT (deep venous thrombosis) History of blistering sunburn Hypertension Localized edema senior living use of drug Mitral valve insufficiency Other secondary pulmonary hypertension Parkinsons disease Persistent atrial fibrillation Prostate cancer Home Medications calcium carbonate 600 mg-vitamin D3 12.5 mcg (500 unit) capsule (Calcium 600 with Vitamin D3) 1 cap PO DAILY Vitamin 09/25/20 [History Last Taken 09/09/21] carbidopa ER 50 mg-levodopa 200 mg tablet,extended release 1 tablet PO 4X/DAY parkinsons 09/25/20 [History Last Taken 09/09/21] dorzolamide 22.3 mg-timolol 6.8 mg/mL eye drops 1 - 2 drp ophthalmic (eye) BID glaucoma 09/25/20 [History Last Taken 09/09/21] prednisolone acetate 1 % eye drops,suspension 1 drp LEFT EYE Q12H vision 11/13/20 [History Last Taken 09/09/21] pramipexole 0.5 mg tablet 1 mg PO 4X/DAY 04/28/21 [History Last Taken 09/09/21] ascorbic acid (vitamin C) 500 mg tablet 1,000 mg PO DAILY SUPPLEMENT 09/10/21 [History Last Taken 09/09/21] latanoprost 0.005 % eye drops 1 drp RIGHT EYE QHS 09/10/21 [History Last Taken 09/09/21] memantine 10 mg tablet 10 mg PO BID MEMORY 09/10/21 [History Last Taken 09/09/21] acetaminophen 500 mg tablet 500 - 1,000 mg PO BID PRN Pain 11/10/21 [History Last Taken Unknown] aspirin 81 mg tablet,delayed release 81 mg PO DAILY HEALTH #90 tabs 05/10/22 [Rx Last Taken Unknown] diltiazem HCl 120 mg capsule,24 hr,extended release See Rx Instructions .Route .COMPLEX #90 CAPSULES 02/03/23 [Rx Last Taken Unknown] tamsulosin 0.4 mg capsule 0.4 mg PO DAILY 03/14/23 [History Last Taken Unknown] torsemide 20 mg tablet 20 mg PO .COMPLEX 03/18/23 [History Last Taken Unknown] sulfamethoxazole 800 mg-trimethoprim 160 mg tablet (Bactrim DS) 1 tab PO BID #14 tabs 03/19/23 [Rx Last Taken Unknown] carbidopa 25 mg-levodopa 100 mg tablet 1 tab PO BID 08/05/23 [History Last Taken Unknown] Allergy/AdvReac Type Severity Reaction Status Date / Time lidocaine Allergy Angioedema Verified 08/05/23 12:10 peppermint Allergy Angioedema Verified 08/05/23 12:10 phenylephrine Allergy Angioedema Verified 08/05/23 12:10 doxycycline AdvReac Intermediate SUNBURN Verified 08/05/23 12:10 Family History Brother Atrial fibrillation Surgical History History of cataract extraction History of hernia repair History of incision and drainage (~09/2021) Social History Smoking Status: Never smoker alcohol intake: never substance use type: does not use caffeine: Yes Type: carbonated beverages Number of servings: 1 ROS ROS ED Constitutional Constitutional ED: Reports fever(s); Denies chills Eyes Eyes: Denies discharge from eye(s) ENT ENT ED: Denies discharge from eye(s), rhinorrhea or sore throat Cardiovascular Cardiovascular: Denies chest pain Respiratory/Chest Respiratory/Chest: Denies cough or dyspnea Gastrointestinal Gastrointestinal: Denies abdominal pain, nausea or vomiting Genitourinary Genitourinary ED: Reports dysuria Musculoskeletal Musculoskeletal: Reports myalgias and neck pain; Denies back pain or extremity pain Integumentary Denies Abrasions or rash Neurologic Neurologic: Reports weakness; Denies headache(s) Endocrine Endocrinology: Denies polydipsia or polyuria Allergic/Immunologic Allergic/Immunologic ED: Denies lip swelling or urticaria EXAM Physical Exam Const Vital Signs: 08/05/23 12:07 08/05/23 13:29 08/05/23 14:46 Temperature 100.9 F H 100.1 F H 100 F H Temperature Source Oral Temporal Oral Pulse Rate 80 52 L 67 Respiratory Rate 18 18 16 Blood Pressure 95/50 L 83/60 L 84/54 L Blood Pressure Mean 65 67 64 Pulse Ox 94 94 93 Oxygen Delivery Method Room Air Room Air Room Air Positive well nourished and well developed General Appearance ED: well developed HEENT Reports moist mucous membranes Eyes EOMs intact bilaterally Chest Wall inspection of chest normal and palpation of chest normal Resp normal respiratory effort and clear to auscultation bilaterally Cardio regular rate and regular rhythm GI non-tender Auscultation: hypoactive bowel sounds Palpation: soft Extremity normal to inspection Neuro oriented x3 Neuro Narrative: Generalized weakness with no focal neurologic deficit. Skin no rashes or lesions noted MDM MDM MDM Narrative Medical decision making narrative: Patient placed on air sampling and monitoring. IV line initiated. Labwork obtained to evaluate for leukocytosis, anemia, and electrolyte derangement. Urinalysis obtained to evaluate for infection/hematuria. EKG obtained to evaluate for cardiac arrhythmia/ischemia. Chest x-ray obtained to evaluate for acute lung pathology, cardiac size, or mediastinal abnormality. Blood and urine cultures have been sent. Swab for COVID, influenza, and RSV is also ordered. History & Record Review Discussion w/independent historian: Patient and Family Additional record(s) reviewed:: Prior labs Lab Data Attestation: I reviewed the patient's lab results. Labs: Laboratory Results - last 24 hr 08/05/23 08/05/23 08/05/23 12:21 12:55 13:20 WBC 8.9 RBC 4.73 Hgb 14.0 Hct 43.0 MCV 90.9 MCH 29.6 MCHC 32.6 RDW Std Deviation 54.6 H RDW Coeff of Manuela 16.3 H Plt Count 94 L MPV 10.9 Immature Gran % (Auto) 1.400 H Neut % (Auto) 91.3 H Lymph % (Auto) 1.[address] [place] % (Auto) 5.2 Eos % (Auto) 0.1 Baso % (Auto) 0.2 Absolute Neuts (auto) 8.1 H Absolute Lymphs (auto) 0.16 L Nucleated RBC % 0 Differential Comment SCANNED Platelet Estimate SLT DEC Plt Morphology Comment LARGE PT 14.5 INR 1.1 APTT 32.6 Sodium 139 Potassium 3.8 Chloride 108 H Carbon Dioxide 27.0 Anion Gap 4 L BUN 20 H Creatinine 1.19 Estim Creat Clear Calc 54.81 Est GFR (MDRD) Af Amer 76 Est GFR (MDRD) Non-Af 63 BUN/Creatinine Ratio 16.8 Glucose 127 H Lactic Acid 1.8 Calcium 8.8 Total Bilirubin 1.10 H AST 11 L ALT 7 L Alkaline Phosphatase 75 Total Protein 6.5 Albumin 2.7 L Globulin 3.8 Albumin/Globulin Ratio 0.7 L Urine Color Yellow Urine Clarity Cloudy Urine pH 7.0 Ur Specific [place] 1.010 Urine Protein 30 H Urine Glucose (UA) Normal Urine Ketones 5 H Urine Occult Blood 50 H Urine Nitrite Positive H Urine Bilirubin 1 H Urine Urobilinogen 1 H Ur Leukocyte Esterase 500 H Urine RBC 5-10 SEEN Urine WBC >100 SEEN Ur Squamous Epith Cells 0 SEEN Urine Bacteria 2+ Urine Mucus 0 SEEN Radiography Chest X-Ray - ED: 1 View, Read by ED Physician, Chronic Changes and No Infiltrates Diagnostic Testing: Clinical Impression(s) from Imaging Studies Chest X-Ray 08/05/23 12:58 IMPRESSION: Mild cardiomegaly. No acute infiltrate is seen. Electronically Signed: Fausto Gross MD at 13:24 EST Reading Location ID and State: [address] [place] [address] , Service support , EKG Initial EKG: Attestation: I personally reviewed and interpreted this EKG as follows: Interpretation: Atrial Fibrillation (Atrial fibrillation at 66 bpm. No acute ischemia.) Treatment and Re-Evaluation :: CBC was normal white count at 8.9 with 91% neutrophils. Hemoglobin is 14. Coags unremarkable. Chemistry studies reveal a BUN of 20 and creatinine 1.19. Glucose is 127. Lactic acid is normal at 1.8. LFTs significant only for a total bili of 1.1. Urinalysis is positive for infection with positive nitrites, greater than 100 white cells, 2+ bacteria. Swab for COVID, influenza, and RSV is negative. EKG is atrial fibrillation at 66 bpm. Patient does have a known history of A-fib. Portable chest x-ray per my interpretation was chronic changes with no infiltrate. Radiology interpretation is reviewed and agrees. Blood and urine cultures have been sent. Patient is started on IV Rocephin. Patient's blood pressure remains low after initial fluid bolus of 1 L. An additional 1 L IV fluid bolus is ordered at this time. I will speak with hospitalist regarding admission. Patient's most recent urine culture is not yet available. I was able to find a urine culture from June 26, 2023. At that time he grew Proteus mirabilis that was resistant only to nitrofurantoin. Discharge Plan Dx/Rx/DC Orders Clinical Impression: UTI (urinary tract infection), Hypotension Disposition Disposition: Acute Care Hospital [facility]
[2023-08-05] MEDS: Acetaminophen 325 MG Tablet 650 MG PO (12:32)
[2023-08-05] MEDS: 0.9% Normal Saline (500mL Bag) 500 ML 999 ML IV ×2 (12:32→15:56)
[2023-08-05] MEDS: 0.9% Normal Saline (1000mL) 1,000 ML 150 ML IV ×3 (12:32→23:52)
[2023-08-05 12:54] LABS: International Normalized Ratio 1.1; Prothrombin Time (Protime)PT. 14.5 SECONDS (11.7-14.9)
[2023-08-05 12:55] LABS: Partial Thromboplast Time 32.6 Seconds (24.1-36.2)
[2023-08-05 12:58] LABS: ALB/GLOB Ratio 0.7 RATIO (0.9-2.4); AST(SGOT) 11 U/L (15-37); Alanine Aminotransfer ALT/SGPT 7 U/L (16-61); Albumin, Serum 2.7 g/dL (3.2-5.0); Alkaline Phosphatase 75 U/L (45-117); Anion Gap 4 (5-15); BUN 20 mg/dL (7-18); BUN/Creat Ratio 16.8 RATIO (10-20); Calcium,Total 8.8 mg/dL (8.5-10.1); Chloride 108 mmol/L (98-107); Creatinine, Serum 1.19 mg/dL (0.70-1.30); EST Glomerular Filtration Rate 63 mL/min (>60); Est Glom Filt Rate - Afr Amer 76 mL/min (>60); Estimated Creatinine Clearance 54.81 ml/min; Globulin 3.8 g/dL (2.2-4.2); Glucose 127 mg/dL (74-106); Potassium 3.8 mmol/L (3.5-5.1); Protein, Total 6.5 g/dL (6.4-8.2); Sodium Level 139 mmol/L (136-145)
--- NOTE | 2023-08-05 12:58 | RAD_ITS ---
STUDY: X-RAY CHEST REASON FOR EXAM: Male, 78 years old. Weakness and fever. TECHNIQUE: Single AP portable view of the chest. COMPARISON: Comparison is made with prior study dated January 21, 2023. FINDINGS: EKG electrodes are seen. The lungs are clear and expanded. There is no demonstrated pleural abnormality. There is mild cardiac enlargement. Normal mediastinum and sobeida. Normal visualized pulmonary arteries. There is atherosclerotic calcification of the aortic arch with tortuosity. There is an increased kyphosis of the thoracic spine. There is degenerative osteoarthritis of the bilateral shoulders. There is no demonstrated abnormality of the visualized soft tissue structures of the upper abdomen. RAD/Chest 1 View (Portable) IMPRESSION: Mild cardiomegaly. No acute infiltrate is seen. Electronically Signed: Fausto Gross MD at 13:24 EST ,
[2023-08-05 13:07] LABS: Absolute Lymphocyte Count 0.16 X10^3/uL (0.83-4.51); Absolute Neutrophil Count 8.1 X10^3/uL (2.0-7.7); Basophil# 0.02 X10^3/uL; Basophil% 0.2 % (0-1); Eosinophil# 0.01 X10^3/uL; Eosinophils% 0.1 % (0-5); Lymphocyte # 0.16 X10^3/ul (0.83-4.51); Lymphocyte % 1.8 % (19-41); Mean Corp Hgb Conc 32.6 g/dL (32-36); Mean Corpuscular Hgb 29.6 pg (27.0-32.0); Mean Corpuscular Volume 90.9 fL (80-94); Mean Platelet Vol. 10.9 fl (6.2-12.0); Monocyte# 0.46 X10^3/uL; Monocyte% 5.2 % (0-10); NRBC Flagged by Analyzer 0 % (0-5); Neutrophil % 91.3 % (47-70); POSITIVE COUNT YES; POSITIVE DIFFERENTIAL YES; Platelet Count 94 K/mm3 (150-450); RBC Distribution Width CV 16.3 % (11.6-14.6); RBC Distribution Width SD 54.6 fl (35.1-43.9); Red Blood Count 4.73 M/mm3 (4.6-6.2); White Blood Count 8.9 K/mm3 (4.4-11.0)
[2023-08-05 13:26] LABS: Lactic Acid 1.8 mmol/L (0.4-1.9)
[2023-08-05 13:34] LABS: Mucous, Urine 0 SEEN /hpf (<or=2+); Squamous Epithelial Cells - UA 0 SEEN /hpf (0-5)
[2023-08-05 13:42] LABS: Color, Urine Yellow (Yellow); Glucose, Dipstick Normal (Normal); Ketone-Dipstick 5 mg/dl (Negative); Leukocyte Esterase-Dipstick 500 /ul (Negative); Nitrite-Dipstick Positive (Negative); Occult Blood-Urine 50 /ul (Negative); Protein-Dipstick 30 mg/dl (Negative); Urine Clarity Cloudy (Clear); Urine Urobilinogen 1 mg/dl (Normal)
[2023-08-05 13:44] LABS: Differential Indicated SCAN CRITERIA MET
[2023-08-05 13:45] LABS: Urine Bilirubin Dipstick 1 mg/dL (Negative)
[2023-08-05 13:47] LABS: Differential Comment SCANNED
[2023-08-05 13:48] LABS: Platelet Estimate SLT DEC (ADEQ); Platelet Morphology LARGE
[2023-08-05 13:51] LABS: Red Blood Cells-Urine 5-10 SEEN /hpf (0-5); White Blood Cells >100 SEEN /hpf (0-5)
[2023-08-05 13:52] LABS: Bacteria 2+ /hpf (None Seen)
[2023-08-05] MEDS: 0.9% Normal Saline (1000mL) 1,000 ML 999 ML IV (14:44)
[2023-08-05] MEDS: Ceftriaxone 1 GM/50 ML BAG IV (14:45)
[2023-08-05] MEDS: 0.9% Normal Saline (500mL Bag) 250 ML 999 ML IV (15:56)
--- NOTE | 2023-08-05 16:04 | ED.RN ---
CALLED REPORT TO ICU
--- OUTSIDE RECORDS SUMMARY | 2023-08-05 16:07 | XMS RPT_ITS | CCD ---
Author Name Unknown Address [id number] [place] [address] Organization [facility] Care Team Providers Care Automatic Serging Machine Operator Name Role Phone Fabienne SMITH, Pennie Araujo Unavailable Unavailable MD Joey, Dave Alexandra Unavailable Fabienne SMITH, Pennie Araujo Unavailable Unavailable Oswald Saavedra Unavailable Unavailable Dylan Moody Unavailable Unavailable Fabienne SMITH, Pennie Araujo Unavailable Unavailable Masoud Coello Primary Care Provider Masoud Coello MD Primary Care Provider Masoud Coello MD Primary Care Provider PROVIDER, UNKNOWN Referring Unavailable JACK RODRIGUEZ Attending Unavailable Oumou, Masoud Primary Care Unavailable Karen Boss Attending Unavailable Oumou, Masoud Primary Care Unavailable PROVIDER, UNKNOWN Referring Unavailable Masoud Coello MD Primary Care Provider Masoud Coello MD Primary Care Provider Masoud Coello Primary Care Provider GRETCHEN COELLORELL SAMIR Primary Care Unavailabl KAREN Linder Referring Unavailable JERRY PAULSON Attending Unavailable OUMOU, MASOUD Primary Care Unavailable KAREN BOSS Attending Unavailable OUMOU, MASOUD Primary Care Unavailable MARIO ORTIZ Attending Unavailable OUMOU, MASOUD Primary Care Unavailable OUMOU, MASOUD Primary Care Unavailable KAREN BOSS Attending Unavailable OUMOU, MASOUD Primary Care Unavailable KAREN BOSS Attending Unavailable MILDRED JASMINE Attending Unavailable OUMOU, MASOUD Primary Care Unavailable OUMOU, MASOUD Primary Care Unavailable OUMOUGRETCHENMASOUD Attending Unavailable OUMOU, MASOUD Primary Care Unavailable OUMOU, MASOUD Attending Unavailable KAREN BOSS Referring Unavailable NALDO LONGORIA Attending Unavailable OUMOU, MASOUD Primary Care Unavailable OUMOU, MASOUD Attending Unavailable OUMOU, MASOUD Primary Care Unavailable OUMOU, MASOUD Primary Care Unavailable OUMOU, MASOUD Attending Unavailable MASOUD COELLO Referring Unavailable OUMOU, MASOUD Attending Unavailable OUMOU, MASOUD Primary Care Unavailable OUMOU, MASOUD Primary Care Unavailable OUMOU, MASOUD Attending Unavailable OUMOU, MASOUD Primary Care Unavailable MILDRED JASMINE Attending Unavailable OUMOU, MASOUD Primary Care Unavailable OUMOU, MASOUD Attending Unavailable OUMOU, MASOUD Primary Care Unavailable KAREN BOSS Attending Unavailable Allergies Allergy Classification Reported Allergen(s) Allergy Type Date of Onset Reaction(s) Facility (20 sources) Lidocaine Drug Allergy 04-19-2022 [facility] (20 sources) Peppermint preparation Drug Allergy 04-19-2022 [facility] Work Phone: (20 sources) Phenylephrine Drug Allergy 04-19-2022 [facility] Work Phone: (5 sources) Doxycycline Drug Allergy 03-19-2023 [facility] Medications Current Medications Medication Drug Class(es) Dates Sig (Normalized) Sig (Original) acetaminophen 500 mg oral tablet (20 sources) Start: 11-10-2021 acetaminophen (Tylenol) 500 MG tablet Take by mouth. 0 11/10/2021 Active Completed/Discontinued Medications Medication Drug Class(es) Dates Sig (Normalized) Sig (Original) apixaban 5 mg oral tablet (11 sources) Factor Xa Inhibitor Start: 03-29-2016 End: 02-10-2017 take 1 tablet by mouth twice daily ELIQUIS 5 MG TABS One tablet by mouth twice daily APIXABAN [id number] Dave Cook MD atenolol 50 mg oral tablet (20 sources) beta-Adrenergic Dorothy Start: 08-02-2023 End: 08-03-2023 take 1 tablet by mouth once daily in the morning, then take 0.5 tablet by mouth once daily in the evening atenolol (Tenormin) 50 MG tablet take 1 tablet by mouth every morning anD 1/2 tablet by mouth every evening 135 tablet 1 08/02/2023 08/03/2023 Discontinued (Therapy completed) Problems Active Problems Problem Classification Problem Date Documented Date Episodic/Chronic Blindness and vision defects (3 sources) Binocular vision disorder; Translations: [Unspecified disorder of binocular vision] Onset: 3 05-11-2023 Episodic Cardiac dysrhythmias (14 sources) Persistent atrial fibrillation; Translations: [Atrial fibrillation] Onset: 6 Resolved: 0 03-29-2016 Chronic Chronic kidney disease (20 sources) Chronic kidney disease stage 3A ; Translations: [Chronic kidney disease, stage 3a (HCC)] Onset: 3 Chronic Chronic kidney disease (2 sources) Chronic kidney disease; Translations: [Chronic kidney disease, stage 3a (HCC)] Onset: 3 Chronic ulcer of skin (20 sources) Chronic ulcer of skin of lower leg; Translations: [Non-pressure chronic ulcer of other part of left lower leg limited to breakdown of skin] Onset: 3 Resolved: 3 Chronic Delirium, dementia, and amnestic and other cognitive disorders (3 sources) Dementia; Translations: [Unspecified dementia without behavioral disturbance] Onset: 3 Chronic Essential hypertension (20 sources) Hypertensive disorder; Translations: [Essential (primary) hypertension] Onset: 6 03-29-2016 Chronic Hyperplasia of prostate (20 sources) Benign prostatic hypertrophy with outflow obstruction; Translations: [Benign prostatic hyperplasia with lower urinary tract symptoms] Onset: 2 08-18-2021 Chronic Miscellaneous mental health disorders (20 sources) Psychophysiologic insomnia; Translations: [Psychophysiologic insomnia] Onset: 1 08-27-2020 Chronic Mood disorders (20 sources) Reactive depression (situational); Translations: [Major depressive disorder, single episode, unspecified] Onset: 1 08-27-2020 Chronic Open wounds of extremities (1 source) Absent fingertips; 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, initial encounter] Onset: 3 01-22-2013 Chronic Other acquired deformities (2 sources) Other forms of scoliosis, cervicothoracic region; Translations: [Other forms of scoliosis, cervicothoracic region] Onset: 2 Chronic Other connective tissue disease (2 sources) Dropped head syndrome; Translations: [Other symptoms and signs involving the musculoskeletal system] 02-18-2023 Episodic Other connective tissue disease (1 source) Recurrent falls ; Translations: [Repeated falls] 04-29-2023 Episodic Other hereditary and degenerative nervous system conditions (2 sources) Restless legs; Translations: [Restless legs syndrome] Onset: 3 12-16-2022 Chronic Other hereditary and degenerative nervous system conditions (1 source) Restless legs syndrome; Translations: [Restless legs syndrome] Onset: 3 Chronic Other injuries and conditions due to external causes (1 source) Falling injury; Translations: [Fall with injury, initial encounter] Other non-traumatic joint disorders (1 source) Pain in right hip joint; Translations: [Right hip pain] Other nutritional; endocrine; and metabolic disorders (10 sources) Body mass index (BMI) 30.0-30.9, adult; Translations: [Body mass index (BMI) 32.0-32.9, adult] Onset: 6 02-10-2017 Chronic Other nutritional; endocrine; and metabolic disorders (1 source) Body mass index (BMI) 32.0-32.9, adult; Translations: [Body mass index (BMI) 32.0-32.9, adult] Onset: 6 03-29-2016 Chronic Other nutritional; endocrine; and metabolic disorders (13 sources) Morbid obesity; Translations: [Morbid (severe) obesity due to excess calories] Onset: 3 12-01-2022 Chronic Other nutritional; endocrine; and metabolic disorders (13 sources) Obesity caused by energy imbalance; Translations: [Morbid (severe) obesity due to excess calories] Onset: 3 12-01-2022 Chronic Other nutritional; endocrine; and metabolic disorders (2 sources) Morbid (severe) obesity due to excess calories; Translations: [Morbid (severe) obesity due to excess calories (HCC)] Onset: 3 Chronic Other skin disorders (7 sources) Sebaceous cyst of skin; Translations: [Sebaceous cyst] Onset: 4 07-06-2023 Episodic Parkinson`s disease (20 sources) Parkinson's disease; Translations: [Parkinson's disease] Onset: 0 09-17-2019 Chronic Parkinson`s disease (2 sources) Parkinson`s disease; Translations: [Parkinson's disease without dyskinesia, without mention of fluctuations] Onset: 2 Alisa-; endo-; and myocarditis; cardiomyopathy (20 sources) Cardiomyopathy in diseases classified elsewhere; Translations: [Cardiomyopathy associated with another disorder] Onset: 6 04-12-2016 Chronic Peripheral and visceral atherosclerosis (20 sources) Peripheral vascular disease; Translations: [Peripheral vascular disease, unspecified] Onset: 3 12-01-2022 Chronic Pulmonary heart disease (20 sources) Other secondary pulmonary hypertension; Translations: [Secondary pulmonary hypertension] Onset: 6 04-12-2016 Chronic Secondary malignancies (20 sources) Secondary malignant neoplastic disease; Translations: [Secondary malignant neoplasm of other specified sites] Onset: 3 12-01-2022 Chronic Spondylosis; intervertebral disc disorders; other back problems (20 sources) Other cervical disc degeneration, high cervical region; Translations: [Spondylosis without myelopathy or radiculopathy, cervical region] Onset: 2 Chronic Unclassified (1 source) Dementia due to Parkinson's disease; Translations: [Mild dementia due to Parkinson's disease, unspecified whether behavioral, psychotic, or mood disturbance or anxiety (HCC)] 07-19-2023 Chronic Unclassified (6 sources) Drug therapy finding; Translations: [lay out carpenter (current) use of anticoagulants] Onset: 6 03-29-2016 Unclassified (2 sources) Malignant neoplasm of prostate / C61(ICD-10) Onset: 8 Unclassified (2 sources) Longstanding persistent atrial fibrillation; Translations: [Longstanding persistent atrial fibrillation (HCC)] Onset: 3 Unclassified (2 sources) Wound Check; Translations: [Wound Check] Onset: 3 Past or Other Problems Problem Classification Problem Date Documented Date Episodic/Chronic Acute and unspecified renal failure (20 sources) Acute injury of kidney; Translations: [Acute kidney failure, unspecified] Onset: 12-02-2020 Resolved: 12-01-2022 12-02-2020 Episodic Calculus of urinary tract (20 sources) Urinary bladder stone; Translations: [Calculus in bladder] Onset: 12-02-2020 12-02-2020 Episodic Cancer of prostate (4 sources) Malignant neoplasm of prostate; Translations: [Malignant tumor of prostate] Onset: 01-31-2018 Resolved: 08-21-2019 08-21-2019 Chronic Cancer of prostate (20 sources) History of malignant neoplasm of prostate; Translations: [Personal history of malignant neoplasm of prostate] Onset: 12-02-2020 12-02-2020 Episodic Coagulation and hemorrhagic disorders (20 sources) Thrombophilia; Translations: [Other thrombophilia] Onset: 12-01-2022 Resolved: 01-31-2023 12-01-2022 Chronic Disorders of lipid metabolism (20 sources) Hyperlipidemia; Translations: [Hyperlipidemia, unspecified] Onset: 03-29-2016 Resolved: 12-01-2022 03-29-2016 Chronic E Codes: Fall (20 sources) Fall; Translations: [Unspecified fall, initial encounter] Onset: 11-12-2020 11-12-2020 Episodic Genitourinary symptoms and ill-defined conditions (20 sources) Acute retention of urine ; Translations: [Other retention of urine] Onset: 12-02-2020 12-02-2020 Episodic Mood disorders (19 sources) Mood disorders Onset: 01-28-2023 Resolved: 08-03-2023 01-28-2023 Open wounds of extremities (20 sources) Disorder of lower extremity; Translations: [Unspecified open wound, left lower leg, initial encounter] Onset: 02-10-2022 Resolved: 12-01-2022 02-10-2022 Episodic Open wounds of extremities (20 sources) Open wound of foot; Translations: [Puncture wound without foreign body, right foot, initial encounter] Onset: 11-04-2022 Resolved: 01-31-2023 Episodic Other connective tissue disease (2 sources) Other specified soft tissue disorders; Translations: [Other specified soft tissue disorders] Onset: 08-31-2021 Episodic Other connective tissue disease (2 sources) Other symptoms and signs involving the musculoskeletal system; Translations: [Other symptoms and signs involving the musculoskeletal system] Onset: 03-14-2023 Episodic Other diseases of kidney and ureters (2 sources) Other obstructive and reflux uropathy; Translations: [Other obstructive and reflux uropathy] Onset: 04-18-2022 Episodic Other endocrine disorders (20 sources) Secondary hyperaldosteronism; 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] Onset: 12-01-2022 Resolved: 01-31-2023 12-01-2022 Chronic Other inflammatory condition of skin (20 sources) Solar erythema; Translations: [Sunburn, unspecified] Onset: 11-04-2021 Resolved: 12-01-2022 11-04-2021 Episodic Other lower respiratory disease (6 sources) Dyspnea; Translations: [Dyspnea, unspecified] Onset: 03-29-2016 03-29-2016 Episodic Other screening for suspected conditions (not mental disorders or infectious disease) (6 sources) Patient encounter status; Translations: [Encounter for screening for diabetes mellitus] Onset: 01-31-2023 01-31-2023 Episodic Other skin disorders (20 sources) Callosity under metatarsal head; Translations: [Corns and callosities] Onset: 01-10-2023 01-10-2023 Episodic Other skin disorders (2 sources) Corns and callosities; Translations: [Corns and callosities] Onset: 01-10-2023 Episodic Other upper respiratory disease (20 sources) Bleeding from nose; Translations: [Epistaxis] Onset: 07-24-2020 07-24-2020 Episodic Other upper respiratory disease (20 sources) Nasal congestion; Translations: [Nasal congestion] Onset: 01-10-2023 01-10-2023 Episodic Other upper respiratory disease (1 source) Nasal congestion; Translations: [Nasal congestion] Onset: 01-10-2023 Episodic Residual codes; unclassified (2 sources) Swelling - edema - symptom; Translations: [Edema, unspecified] Onset: 03-23-2016 03-23-2016 Episodic Residual codes; unclassified (20 sources) Hallucinations; Translations: [Hallucinations, unspecified] Onset: 08-27-2020 08-27-2020 Episodic Residual codes; unclassified (9 sources) Edema; Translations: [Edema, unspecified] Onset: 03-23-2016 03-23-2016 Episodic Residual codes; unclassified (20 sources) Dependent edema; Translations: [Edema, unspecified] Onset: 03-23-2016 Episodic Residual codes; unclassified (2 sources) Edema, unspecified; Translations: [Edema, unspecified] Onset: 12-01-2022 Episodic Skin and subcutaneous tissue infections (20 sources) Cellulitis of left lower limb; Translations: [Cellulitis of left lower limb] Onset: 09-09-2021 Resolved: 12-01-2022 09-09-2021 Episodic Spondylosis; intervertebral disc disorders; other back problems (20 sources) Sciatica; Translations: [Sciatica, right side] Onset: 07-24-2020 07-24-2020 Episodic Superficial injury; contusion (20 sources) Abrasion of lower limb; Translations: [Abrasion, left lower leg, subsequent encounter] Onset: 09-09-2021 Resolved: 12-01-2022 09-09-2021 Episodic Syncope (3 sources) Syncope and collapse; Translations: [Syncope and collapse] Onset: 04-12-2023 02-18-2023 Episodic Unclassified (6 sources) Localized edema; Translations: [Localized edema] Onset: 03-29-2016 03-29-2016 Episodic Urinary tract infections (20 sources) Chronic radiation cystitis ; Translations: [Irradiation cystitis without hematuria] Onset: 11-05-2019 Resolved: 12-01-2022 11-05-2019 Episodic Results Test Name Value Interpretation Reference Range Facil ity Vital Signs Date Time Vital Sign Value Performing Clinician Facility 08-03-2023 10:38-0500 Body height 170.2 cm Masoud Coello MD Work Phone: [facility] 08-03-2023 10:38-0500 Body mass index (BMI) [Ratio] 30.82 kg/m2 Masoud Coello MD Work Phone: [facility] 08-03-2023 10:38-0500 Body weight 89.27 kg Masoud Coello MD Work Phone: [facility] 08-03-2023 10:38-0500 Diastolic blood pressure 74 mm[Hg] Masoud Coello MD Work Phone: [facility] 08-03-2023 10:38-0500 Heart rate 75 /min Masoud Coello MD Work Phone: [facility] 08-03-2023 10:38-0500 SaO2% (BldA) [Mass fraction] 93 % Masoud Coello MD Work Phone: [facility] 08-03-2023 10:38-0500 Systolic blood pressure 117 mm[Hg] Masoud Coello MD Work Phone: [facility] 07-06-2023 11:32-0500 Body height 170.2 cm Masoud Coello MD Work Phone: [facility] 07-06-2023 11:32-0500 Body mass index (BMI) [Ratio] 30.51 kg/m2 Masoud Coello MD Work Phone: [facility] 07-06-2023 11:32-0500 Body weight 88.36 kg Masoud Coello MD Work Phone: [facility] 07-06-2023 11:32-0500 Diastolic blood pressure 76 mm[Hg] Masoud Coello MD Work Phone: [facility] 07-06-2023 11:32-0500 Heart rate 82 /min Masoud Coello MD Work Phone: [facility] 07-06-2023 11:32-0500 Systolic blood pressure 114 mm[Hg] Masoud Coello MD Work Phone: [facility] 06-26-2023 13:17-0500 Body temperature 97.5 [degF] Brendon Sonido SENIOR SQL SERVER DATABASE DEVELOPER.SHIFT LEADER Work Phone: [facility] 06-26-2023 13:17-0500 Body weight 88.91 kg Brendon Sonido SENIOR SQL SERVER DATABASE DEVELOPER.SHIFT LEADER Work Phone: [facility] 06-26-2023 13:17-0500 Diastolic blood pressure 68 mm[Hg] Brendon Sonido SENIOR SQL SERVER DATABASE DEVELOPER.SHIFT LEADER Work Phone: [facility] 06-26-2023 13:17-0500 Heart rate 86 /min Brendon Sonido SENIOR SQL SERVER DATABASE DEVELOPER.SHIFT LEADER Work Phone: [facility] 06-26-2023 13:17-0500 Respiratory rate 16 /min Brendon Sonido SENIOR SQL SERVER DATABASE DEVELOPER.SHIFT LEADER Work Phone: [facility] 06-26-2023 13:17-0500 SaO2% (BldA) [Mass fraction] 97 % Brendon Head SENIOR SQL SERVER DATABASE DEVELOPER.SHIFT LEADER Work Phone: [facility] 06-26-2023 13:17-0500 Systolic blood pressure 112 mm[Hg] Brendon Head SENIOR SQL SERVER DATABASE DEVELOPER.SHIFT LEADER Work Phone: [facility] 05-11-2023 12:59-0500 Body height 170.2 cm Karen Boss MD Work Phone: [facility] 05-11-2023 12:59-0500 Body mass index (BMI) [Ratio] 30.85 kg/m2 Karen Boss MD Work Phone: [facility] 05-11-2023 12:59-0500 Body weight 89.36 kg Karen Boss MD Work Phone: [facility] 05-11-2023 12:59-0500 Diastolic blood pressure 86 mm[Hg] Karen Boss MD Work Phone: [facility] 05-11-2023 12:59-0500 Heart rate 90 /min Karen Boss MD Work Phone: [facility] 05-11-2023 12:59-0500 Systolic blood pressure 126 mm[Hg] Karen Boss MD Work Phone: [facility] 04-29-2023 13:05-0400 Body height 170.2 cm Meet Angel HAYWARD Work Phone: [facility] 04-29-2023 13:05-0400 Body mass index (BMI) [Ratio] 29.6 kg/m2 Meet Angel HAYWARD Work Phone: [facility] 04-29-2023 13:05-0400 Body weight 85.73 kg Meet Angel HAYWARD Work Phone: [facility] 04-29-2023 13:05-0400 Diastolic blood pressure 80 mm[Hg] Meet Angel HAYWARD Work Phone: [facility] 04-29-2023 13:05-0400 Heart rate 68 /min Meet Angel HAYWARD Work Phone: [facility] 04-29-2023 13:05-0400 Systolic blood pressure 122 mm[Hg] Mario Ortiz MD Work Phone: [facility] 03-14-2023 11:12-0400 Body height 170.2 cm Naldo Longoria MD Work Phone: [facility] 03-14-2023 11:12-0400 Body mass index (BMI) [Ratio] 29.91 kg/m2 Naldo Longoria MD Work Phone: [facility] 03-14-2023 11:12-0400 Body temperature 96.8 [degF] Naldo Longoria MD Work Phone: [facility] 03-14-2023 11:12-0400 Body weight 86.64 kg Naldo Longoria MD Work Phone: [facility] 03-14-2023 11:12-0400 Diastolic blood pressure 81 mm[Hg] Naldo Longoria MD Work Phone: [facility] 03-14-2023 11:12-0400 Heart rate 92 /min Naldo Longoria MD Work Phone: [facility] 03-14-2023 11:12-0400 Respiratory rate 16 /min Naldo Longoria MD Work Phone: [facility] 03-14-2023 11:12-0400 Systolic blood pressure 122 mm[Hg] Naldo Longoria MD Work Phone: [facility] 02-18-2023 11:59-0400 Body mass index (BMI) [Ratio] 33.27 kg/m2 Karen Boss MD Work Phone: [facility] 02-18-2023 11:59-0400 Body weight 92.08 kg Karen Boss MD Work Phone: [facility] 02-18-2023 11:59-0400 Diastolic blood pressure 89 mm[Hg] Karen Boss MD Work Phone: [facility] 02-18-2023 11:59-0400 Heart rate 104 /min Karen Boss MD Work Phone: [facility] 02-18-2023 11:59-0400 Systolic blood pressure 133 mm[Hg] Karen Boss MD Work Phone: [facility] 01-31-2023 10:50-0400 Body height 166.4 cm Masoud Coello MD Work Phone: [facility] 01-31-2023 10:50-0400 Body mass index (BMI) [Ratio] 32.45 kg/m2 Masoud Coello MD Work Phone: [facility] 01-31-2023 10:50-0400 Body weight 89.81 kg Masoud Coello MD Work Phone: [facility] 01-31-2023 10:50-0400 Diastolic blood pressure 74 mm[Hg] Masoud Coello MD Work Phone: [facility] 01-31-2023 10:50-0400 Heart rate 65 /min Masoud Coello MD Work Phone: [facility] 01-31-2023 10:50-0400 SaO2% (BldA) [Mass fraction] 99 % Masoud Coello MD Work Phone: [facility] 01-31-2023 10:50-0400 Systolic blood pressure 118 mm[Hg] Masoud Coello MD Work Phone: [facility] 01-10-2023 10:48-0400 Body mass index (BMI) [Ratio] 32.94 kg/m2 Mildred Jasmine SENIOR SQL SERVER DATABASE DEVELOPER - SHIFT LEADER Work Phone: [facility] 01-10-2023 10:48-0400 Body temperature 98.71 [degF] Mildred Frankenthal SENIOR SQL SERVER DATABASE DEVELOPER - SHIFT LEADER Work Phone: [facility] 01-10-2023 10:48-0400 Body weight 91.17 kg Mildred Friasal SENIOR SQL SERVER DATABASE DEVELOPER - SHIFT LEADER Work Phone: [facility] 01-10-2023 10:48-0400 Diastolic blood pressure 72 mm[Hg] Mildred Bridenthal SENIOR SQL SERVER DATABASE DEVELOPER - SHIFT LEADER Work Phone: [facility] 01-10-2023 10:48-0400 Heart rate 86 /min Mildred Bridenthal SENIOR SQL SERVER DATABASE DEVELOPER - SHIFT LEADER Work Phone: [facility] 01-10-2023 10:48-0400 Respiratory rate 14 /min Mildred Bridenthal SENIOR SQL SERVER DATABASE DEVELOPER - SHIFT LEADER Work Phone: [facility] 01-10-2023 10:48-0400 Systolic blood pressure 115 mm[Hg] Mildred Bridenthal SENIOR SQL SERVER DATABASE DEVELOPER - SHIFT LEADER Work Phone: [facility] 12-16-2022 12:57-0400 Body height 166.4 cm Karen Boss MD Work Phone: [facility] 12-16-2022 12:57-0400 Body mass index (BMI) [Ratio] 33.96 kg/m2 Karen Boss MD Work Phone: [facility] 12-16-2022 12:57-0400 Body weight 93.98 kg Karen Boss MD Work Phone: [facility] 12-16-2022 12:57-0400 Diastolic blood pressure 83 mm[Hg] Karen Boss MD Work Phone: [facility] 12-16-2022 12:57-0400 Heart rate 85 /min Karen Boss MD Work Phone: [facility] 12-16-2022 12:57-0400 Systolic blood pressure 139 mm[Hg] Karen Boss MD Work Phone: [facility] 12-01-2022 09:59-0400 Diastolic blood pressure 87 mm[Hg] Masoud Coello MD Work Phone: [facility] 12-01-2022 09:59-0400 Heart rate 93 /min Masoud Coello MD Work Phone: [facility] 12-01-2022 09:59-0400 Systolic blood pressure 139 mm[Hg] Masoud Coello MD Work Phone: [facility] 12-01-2022 09:14-0400 Body height 172.7 cm Masoud Coello MD Work Phone: [facility] 12-01-2022 09:14-0400 Body mass index (BMI) [Ratio] 30.77 kg/m2 Masoud Coello MD Work Phone: [facility] 12-01-2022 09:14-0400 Body weight 91.81 kg Masoud Coello MD Work Phone: [facility] 12-01-2022 09:14-0400 SaO2% (BldA) [Mass fraction] 95 % Masoud Coello MD Work Phone: [facility] 11-15-2022 13:44-0400 Body height 166.4 cm Mildred Bridenthal SENIOR SQL SERVER DATABASE DEVELOPER - SHIFT LEADER Work Phone: [facility] 11-15-2022 13:44-0400 Body mass index (BMI) [Ratio] 33.76 kg/m2 Mildred Bridenthal SENIOR SQL SERVER DATABASE DEVELOPER - SHIFT LEADER Work Phone: [facility] 11-15-2022 13:44-0400 Body temperature 96.8 [degF] Mildred Bridenthal SENIOR SQL SERVER DATABASE DEVELOPER - SHIFT LEADER Work Phone: [facility] 11-15-2022 13:44-0400 Body weight 93.44 kg Mildred Bridenthal SENIOR SQL SERVER DATABASE DEVELOPER - SHIFT LEADER Work Phone: [facility] 11-15-2022 13:44-0400 Diastolic blood pressure 88 mm[Hg] Mildred Bridenthal SENIOR SQL SERVER DATABASE DEVELOPER - SHIFT LEADER Work Phone: [facility] 11-15-2022 13:44-0400 Heart rate 72 /min Mildred Bridenthal SENIOR SQL SERVER DATABASE DEVELOPER - SHIFT LEADER Work Phone: [facility] 11-15-2022 13:44-0400 SaO2% (BldA) [Mass fraction] 97 % Mildred Bridenthal SENIOR SQL SERVER DATABASE DEVELOPER - SHIFT LEADER Work Phone: [address]2023 13:44-0400 Systolic blood pressure 138 mm[Hg] Mildred Jasmine SENIOR SQL SERVER DATABASE DEVELOPER - SHIFT LEADER Work Phone: [facility] 11-09-2022 09:50-0400 Body height 172.7 cm Masoud Coello MD Work Phone: [facility] 11-09-2022 09:50-0400 Body mass index (BMI) [Ratio] 31.11 kg/m2 Masoud Coello MD Work Phone: [facility] 11-09-2022 09:50-0400 Body weight 92.81 kg Masoud Coello MD Work Phone: [facility] 11-09-2022 09:50-0400 Diastolic blood pressure 85 mm[Hg] Masoud Coello MD Work Phone: [facility] 11-09-2022 09:50-0400 Heart rate 78 /min Masoud Coello MD Work Phone: [facility] 11-09-2022 09:50-0400 Systolic blood pressure 129 mm[Hg] Masoud Coello MD Work Phone: [facility] 11-04-2022 11:39-0400 Diastolic blood pressure 75 mm[Hg] Masoud Coello MD Work Phone: [facility] 11-04-2022 11:39-0400 Heart rate 86 /min Masoud Coello MD Work Phone: [facility] 11-04-2022 11:39-0400 Systolic blood pressure 135 mm[Hg] Masoud Coello MD Work Phone: [facility] 11-04-2022 10:49-0400 Body height 166.4 cm Masoud Coello MD Work Phone: [facility] 11-04-2022 10:49-0400 Body mass index (BMI) [Ratio] 33.23 kg/m2 Masoud Coello MD Work Phone: [facility] 11-04-2022 10:49-0400 Body weight 91.99 kg Masoud Coello MD Work Phone: [facility] 09-30-2022 13:56-0400 Body height 172.7 cm Karen Boss MD Work Phone: [facility] 09-30-2022 13:56-0400 Body mass index (BMI) [Ratio] 32.54 kg/m2 Karen Boss MD Work Phone: [facility] 09-30-2022 13:56-0400 Body weight 97.07 kg Karen Boss MD Work Phone: [facility] 09-30-2022 13:56-0400 Diastolic blood pressure 83 mm[Hg] Karen Boss MD Work Phone: [facility] 09-30-2022 13:56-0400 Heart rate 54 /min Karen Boss MD Work Phone: [facility] 09-30-2022 13:56-0400 Systolic blood pressure 144 mm[Hg] Karen Boss MD Work Phone: [facility] 02-24-2017 10:29-0400 BP Diastolic 60 mm[Hg] Pennie Loving RN [facility] Work Phone: 02-24-2017 10:29-0400 BP Systolic 120 mm[Hg] Pennie Loving RN [facility] Work Phone: 02-24-2017 10:29-0400 Pulse (Heart Rate) 52 /min Pennie Loving RN [facility] Work Phone: 02-10-2017 13:23-0400 BMI (Body Mass Index) 30.41 kg/m2 Dave Cook MD [facility] Work Phone: 02-10-2017 13:23-0400 BP Diastolic 76 mm[Hg] Dave Cook MD [facility] Work Phone: 02-10-2017 13:23-0400 BP Systolic 110 mm[Hg] Dave Cook MD [facility] Work Phone: 02-10-2017 13:23-0400 Height 172.72 cm Dave Cook MD [facility] Work Phone: 02-10-2017 13:23-0400 Pulse (Heart Rate) 68 /min Dave Cook MD [facility] Work Phone: 02-10-2017 13:23-0400 Respiratory Rate 18 /min Dave Cook MD [facility] Work Phone: 02-10-2017 13:23-0400 Weight 90.72 kg Dave Cook MD [facility] Work Phone: 08-17-2016 13:48-0500 BMI (Body Mass Index) 29.04 kg/m2 Harumi DeFinis [facility] Work Phone: 08-17-2016 13:48-0500 BP Diastolic 60 mm[Hg] Harumi DeFinis [facility] Work Phone: 08-17-2016 13:48-0500 BP Systolic 118 mm[Hg] Harumi DeFinis [facility] Work Phone: 08-17-2016 13:48-0500 BSA (Body Surface Area) 2.01 m2 Harumi DeFinis [facility] Work Phone: 08-17-2016 13:48-0500 Height 172.72 cm Harumi DeFinis [facility] Work Phone: 08-17-2016 13:48-0500 Pulse (Heart Rate) 64 /min Harumi DeFinis [facility] Work Phone: 08-17-2016 13:48-0500 Respiratory Rate 16 /min Harumi DeFinis [facility] Work Phone: 08-17-2016 13:48-0500 Weight 86.64 kg Harumi DeFinis [facility] Work Phone: 05-03-2016 10:42-0400 Pulse Oximetry 96 % Harumi DeFinis [facility] Work Phone: 04-28-2016 10:54-0400 Heart rate 46 /min Pennie Loving RN [facility] Work Phone: Encounters Encounter Date Encounter Type Care Provider Facility Start: 08-03-2023 End: 08-03-2023 ambulatory MASOUD COELLO [facility] Start: 08-03-2023 End: 08-03-2023 Office outpatient visit 25 minutes Masoud Coello MD Work Phone: [facility] Procedures Date Procedure Procedure Detail Performing Clinician Start: 08-03-2023 Urnls dip stick/tabl et rgnt non-auto w/o micrscp Masoud Coello MD Work Phone: Start: 07-06-2023 Urnls dip stick/tabl et rgnt non-auto w/o micrscp Masoud Coello MD Work Phone: Start: 06-26-2023 Urnls dip stick/tabl et rgnt auto w/o microscopy Brendon Head SENIOR SQL SERVER DATABASE DEVELOPER.SHIFT LEADER Work Phone: Start: 01-31-2023 Lipid 1996 panel - S madisyn or Plasma Karen Boss MD Work Phone: Start: 12-01-2022 Urnls dip stick/tabl et rgnt non-auto w/o micrscp Masoud Coello MD Work Phone: Start: 11-15-2022 Urnls dip stick/tabl et rgnt non-auto w/o micrscp Mildred Jasmine SENIOR SQL SERVER DATABASE DEVELOPER - SHIFT LEADER Work Phone: Start: 11-04-2022 Cul bact xcpt urine blood/stool aerobic isol Masoud Coello MD Work Phone: Start: 01-28-2022 Lipid 1996 panel - S madisyn or Plasma Karen Boss MD Work Phone: Start: 02-06-2021 Mri brain brain stem w/o contrast material Karen Boss MD Work Phone: Start: 02-24-2017 End: 02-24-2017 Follow Up BP Check Dave Cook MD Work Phone: Start: 02-10-2017 End: 02-10-2017 AKTH Cook MD Work Phone: Start: 02-10-2017 End: 02-10-2017 Follow Up Appt 6 months Dave Cook MD Work Phone: Start: 08-17-2016 End: 08-17-2016 Dietary management education, guidance, and counseling Pennie Loving RN Start: 08-17-2016 End: 08-17-2016 KATH Cook MD Work Phone: Start: 08-17-2016 End: 08-17-2016 Follow Up Appt 6 months Dave Cook MD Work Phone: Start: 08-17-2016 End: 08-18-2016 Referral to community health educator Dave Cook MD Work Phone: Start: 06-17-2016 End: 06-18-2016 Echocardiography Dave Cook MD Work Phone: Start: 05-03-2016 End: 05-03-2016 KATH Cook MD Work Phone: Start: 05-03-2016 End: 05-03-2016 Follow Up Appt 3 months Dave Cook MD Work Phone: Start: 05-03-2016 End: 05-03-2016 Follow Up BP Check Dave Cook MD Work Phone: Start: 04-28-2016 End: 04-28-2016 Electrocardiogram, complete Dave ponce MD Work Phone: Start: 04-15-2016 End: 04-15-2016 Stress Echocardiogram (treadmill) Dave Cook MD Work Phone: Start: 03-30-2016 End: 04-15-2016 *BMP Dave Cook MD Work Phone: Start: 03-30-2016 End: 04-20-2016 *Hepatic Function Panel Dave Cook MD Work Phone: Start: 03-30-2016 End: 04-21-2016 Cardioversion Dave Cook MD Work Phone: Start: 03-30-2016 End: 04-15-2016 CBC W Auto Differential panel - Blood Dave Cook MD Work Phone: Start: 03-30-2016 End: 04-20-2016 Chest x-ray Dave Cook MD Work Phone: Start: 03-30-2016 End: 04-20-2016 DJN Dave Cook MD Work Phone: Start: 03-30-2016 End: 04-12-2016 Echocardiography Dave Cook MD Work Phone: Start: 03-30-2016 End: 04-20-2016 Follow Up Appt 1 month Dave Cook MD Work Phone: Start: 03-30-2016 End: 04-20-2016 Lipid panel [AGGREGATE] Dave Cook MD Work Phone: Plan of Treatment Date Care Activity Detail Author Start: 02-01-2028 Lipid panel Lipid Panel [facility] Start: 01-28-2027 Lipid panel Lipid Panel [facility] Start: 01-31-2026 Diabetes Screening Diabetes Screenin g [facility] Start: 03-02-2024 Medicare Advantage Annual Wellness Visit (AWV) Medicare Advantage Annual Wellness Visit (AWV) [facility] Start: 02-02-2024 End: 02-02-2024 Patient encounter procedure 02/02/2024 9:30 AM EDT Office Visit [facility] [address] [place] [address] Masoud Coello MD [address] [place] [place] [address] [facility] Start: 02-01-2024 Depresssion Monitoring Depresssion M onitoring [facility] Start: 01-29-2024 DTaP/Tdap/Td Vaccine s (1 - Tdap) DTaP/Tdap/Td Vaccines (1 - Tdap) [facility] Immunizations Immunization Date Immunization Notes Care Provider Fa cility 01-28-2022 zoster recombinant adjuvanted vaccine (SHINGRIX) 50 MCG/0.5ML SUSR injection Karen Boss MD Work Phone: [facility] Work Phone: Payers Date Payer Category Payer Medicare [id number] 2015 Medicare HUMANA MEDICARE HUMANA CHOICE-PPO MEDICARE xxxxxxxxx 2015-Present [address] [address] [place] [address] xxxxxxxxx [id number] 2015 Private Health Insurance [id number] 1945 Unknown [id number] 1945 Unknown [id number] Private Health Insurance Social History Date Type Detail Facility Start: 01-22-2013 End: 11-28-2019 Tobacco smoking status NHIS Never smoker [facility] Start: 11-28-2019 End: 08-03-2023 Alcohol intake Current non-drinker of alcohol (finding) [place], [place] Start: 1945 Sex Assigned At Not on file M [place], [place] Exposure to SARS-CoV -2 (event) Unable to assess [place], [place] Start: 01-22-2013 End: 01-29-2021 Tobacco use and exposure Never used [facility] Start: 01-26-2021 End: 01-28-2022 History SDOH Alcohol Frequency 1 [facility] Work Phone: Start: 01-26-2021 End: 01-28-2022 History SDOH Financial 5 [facility] Work Phone: Start: 01-26-2021 End: 01-28-2022 History SDOH Transport Med 2 [facility] Work Phone: Start: 09-20-2022 End: 03-14-2023 Exposure to SARS-CoV-2 (event) Not sure [facility] Start: 01-28-2022 History SDOH Alcohol Std Drinks 0 [facility] Work Phone: Start: 12-01-2022 End: 01-28-2023 History of Social function [facility] Start: 12-01-2022 End: 01-28-[address] [facility] How often to you hav e a drink containing alcohol? Never [facility] How many standard dr inks containing alcohol do you have on a typical day? Patient does not drink [facility] (I/We) worried wheth er (my/our) food would run out before (I/we) got money to buy more. Never true [facility] In the past 12 month s, was there a time when you were not able to pay the mortgage or rent on time? No [facility] Goals Date Patient Goal Desired Activity /State Clinical Notes 09-30-2022 to 08-03-2023 Assessment & Plan Note - Masoud Coello MD - 08/03/2023 11:50 AM ESTAssessment & Plan Note - Masoud Coello MD - 08/03/2023 11:50 AM Aparna Pitt MA - 08/03/2023 10:45 AM EST Note Date & Type Note Facility 08-03-2023 Note Slow progression, co ntinue current medications carbidopa levodopa, Comtan, Mirapex 1 mg 4 times a day [facility] 08-03-2023 Evaluation + Plan note Associated Problem(s): Chronic kidney disease, stage 3a (HCC) Stable, continue good blood pressure control [facility] 08-03-2023 Miscellaneous Notes Associated Problem(s): Chronic kidney disease, stage 3a (HCC) Stable, continue good blood pressure control Associated Problem(s): Recurrent UTI Urinalysis shows large amount of leukocytes positive for nitrates and blood. Will start him on Bactrim DS twice daily x 7 days, sent for culture and treat accordingly. Associated Problem(s): Hypertension Controlled, continue diltiazem 120 mg daily Associated Problem(s): Parkinson's disease Slow progression, continue current medications carbidopa levodopa, Comtan, Mirapex 1 mg 4 times a day documented in this encounter [facility] 08-03-2023 Evaluation + Plan note Associated Problem(s): Recurrent UTI Urinalysis shows large amount of leukocytes positive for nitrates and blood. Will start him on Bactrim DS twice daily x 7 days, sent for culture and treat accordingly. [facility] 08-03-2023 Evaluation + Plan note Associated Problem(s): Hypertension Controlled, continue diltiazem [address] [facility] 08-03-2023 Evaluation + Plan note Associated Problem(s): Parkinson's disease Slow progression, continue current medications carbidopa levodopa, Comtan, Mirapex 1 mg 4 times a day [facility] 08-03-2023 History of Presen t illness Narrative Patient verified by last name and date of . Images from the original note were not included. 08/03/2023 Karen Carlson (: 1945) is a 78 y.o. male , Established patient, here for evaluation of the following chief complaint(s): Parkinson's Disease (Need to do phq9), Peripheral Vascular Disease, Hypertension, Medication Check (6 month), and Health Maintenance (Pt refused- flu vaccine, rsv vaccine, thyroid ultrasound ) ASSESSMENT/PLAN: 1. Parkinson's disease without dyskinesia or fluctuating manifestations Assessment & Plan: Slow progression, continue current medications carbidopa levodopa, Comtan, Mirapex 1 mg 4 times a day 2. Primary hypertension Assessment & Plan: Controlled, continue diltiazem 120 mg daily 3. Recurrent UTI Assessment & Plan: Urinalysis shows large amount of leukocytes positive for nitrates and blood. Will start him on Bactrim DS twice daily x 7 days, sent for culture and treat accordingly. Orders: - POCT urinalysis dipstick manually resulted - Urine culture 4. Chronic kidney disease, stage 3a (HCC) Assessment & Plan: Stable, continue good blood pressure control Follow up in about 6 months (around 02/01/2024) for AWV. SUBJECTIVE/OBJECTIVE: EAN Douglas comes in today for 6-month follow-up on his Parkinson's, his hypertension, chronic kidney disease, and he has a history of recurrent UTIs and he is complaining of some dysuria that comes and goes. He has had a couple of falls in the last couple of weeks, he continues to see his neurologist who has him on 3 different medications for his Parkinson's, he is seeing pain management for injections in his neck due to the arthritis. Review of Systems Constitutional: Negative for activity change, appetite change, chills, fever and unexpected weight change. HENT: Negative for ear pain and sore throat. Respiratory: Negative for shortness of breath. Cardiovascular: Negative for chest pain and palpitations. Gastrointestinal: Negative for abdominal pain, blood in stool, constipation and diarrhea. Genitourinary: Negative for dysuria, frequency, hematuria and urgency. Musculoskeletal: Negative for arthralgias and back pain. Skin: Negative. Neurological: Negative for weakness and numbness. Psychiatric/Behavioral: Negative for dysphoric mood. The patient is not nervous/anxious. Vitals: 08/03/23 1038 BP: 117/74 Pulse: 75 SpO2: 93% Weight: 196 lb 12.8 oz (89.3 kg) Height: 5' 7 (1.702 m) Physical Exam Vitals and nursing note reviewed. Constitutional: General: He is not in acute distress. Appearance: Normal appearance. He is obese. HENT: Right Ear: Tympanic membrane, ear canal and external ear normal. Left Ear: Tympanic membrane, ear canal and external ear normal. Mouth/Throat: Mouth: Mucous membranes are moist. Pharynx: Oropharynx is clear. Eyes: Extraocular Movements: Extraocular movements intact. Conjunctiva/sclera: Conjunctivae normal. Pupils: Pupils are equal, round, and reactive to light. Cardiovascular: Rate and Rhythm: Normal rate and regular rhythm. Heart sounds: Normal heart sounds. No murmur heard. Pulmonary: Effort: Pulmonary effort is normal. Breath sounds: Normal breath sounds. Abdominal: General: Bowel sounds are normal. Palpations: Abdomen is soft. Tenderness: There is no abdominal tenderness. Musculoskeletal: General: Normal range of motion. Cervical back: Neck supple. Skin: General: Skin is warm and dry. Neurological: General: No focal deficit present. Mental Status: He is alert and oriented to person, place, and time. Psychiatric: Mood and Affect: Mood normal. An electronic signature was used to authenticate this note. Masoud Coello MD 08/03/2023 12:14 PM documented in this encounter [facility] 07-19-2023 Miscellaneous Notes Medication name: memantine (Namenda) 10 MG tablet Medication dosage: 10 MG Monthly quantity needed: 60 How many day supply requestin days Medication route: oral (PO) Medication administration time(s): Sig: Take 1 tablet (10 mg) by mouth 2 times daily. If taking medication PRN, reason for taking medication: N/A If this is a controlled substance do you receive this or any other controlled medication from any other doctor or facility: N/A Ordering provider: ARSLAN Jasmine Date of last office visit: 07/06/23 Date of next office visit: 08/03/23 Date of last refill: (see medication tab): 01/20/23 Updated/Validated preferred pharmacy: Yes, [id number] - [place], [address] Patient instructed to contact the pharmacy prior to picking up the medication: Yes documented in this encounter [facility] 07-19-2023 Telephone encounter Note Medication name: memantine (Namenda) 10 MG tablet Medication dosage: 10 MG Monthly quantity needed: 60 How many day supply requestin days Medication route: oral (PO) Medication administration time(s): Sig: Take 1 tablet (10 mg) by mouth 2 times daily. If taking medication PRN, reason for taking medication: N/A If this is a controlled substance do you receive this or any other controlled medication from any other doctor or facility: N/A Ordering provider: ARSLAN Jasmine Date of last office visit: 07/06/23 Date of next office visit: 08/03/23 Date of last refill: (see medication tab): 01/20/23 Updated/Validated preferred pharmacy: Yes, [id number] - [place], [address] Patient instructed to contact the pharmacy prior to picking up the medication: Yes [facility] 07-11-2023 Telephone encounter Note Prescription Request: Last medication check: 07-06-23 Last physical exam: 01-31-23 Next scheduled appointment: 08-03-23 Last date of refill on this medication 03-04-23 [facility] 07-11-2023 Miscellaneous Notes Prescription Request: Last medication check: 07-06-23 Last physical exam: 01-31-23 Next scheduled appointment: 08-03-23 Last date of refill on this medication 03-04-[address] encounter [facility] 07-06-2023 Evaluation + Plan note Associated Problem(s): Recurrent UTI Urinalysis today is completely clear and with his improved symptoms we will just watch for any further symptoms. [facility] 07-06-2023 Evaluation + Plan note Associated Problem(s): Sebaceous cyst Reassurance this is dieting to be concerned about it can be removed if they squeeze it out. [facility] 07-06-2023 Miscellaneous Notes Associated Problem(s): Recurrent UTI Urinalysis today is completely clear and with his improved symptoms we will just watch for any further symptoms. Associated Problem(s): Sebaceous cyst Reassurance this is dieting to be concerned about it can be removed if they squeeze it out. documented in this encounter [facility] 07-06-2023 Miscellaneous Notes Associated Problem(s): Recurrent UTI Urinalysis today is completely clear and with his improved symptoms we will just watch for any further symptoms. Associated Problem(s): Sebaceous cyst Reassurance this is dieting to be concerned about it can be removed if they squeeze it out. Addended by: MASOUD COELLO on: 07/08/2023 07:14 AM Modules accepted: Level of Service documented in this encounter [facility] 07-06-2023 Note Addended by: MASOUD COELLO on: 07/08/2023 07:14 AM Modules accepted: Level of Service [facility] 07-06-2023 History of Presen t illness Narrative Patient verified by last name and date of . Images from the original note were not included. 07/06/2023 Karen Carlson (: 1945) is a 78 y.o. male , Established patient, here for evaluation of the following chief complaint(s): Dysuria (Went to urgent care on 05/27/23 [facility] on 06/28/23 culture came back and changed atb and finished it yesterday ) and Skin Lesion (On back that is asking to be looked at ) ASSESSMENT/PLAN: 1. Recurrent UTI Assessment & Plan: Urinalysis today is completely clear and with his improved symptoms we will just watch for any further symptoms. Orders: - POCT urinalysis dipstick manually resulted 2. Sebaceous cyst Assessment & Plan: Reassurance this is dieting to be concerned about it can be removed if they squeeze it out. Follow up if symptoms worsen or fail to improve. SUBJECTIVE/OBJECTIVE: HPI -Julio comes in today for follow-up on his recurrent UTIs he recently was seen in a [facility] they checked his urine and it was positive so they put him on antibiotic sent for culture and call him and change his antibiotic. He finished his medication yesterday he was still having some dysuria but he says today it is much better. He also has a spot on his back that his would like me to look at. Review of Systems Genitourinary: Positive for dysuria. Negative for frequency and urgency. Skin: Positive for wound. Vitals: 07/06/23 1132 BP: 114/76 Pulse: 82 Weight: 194 lb 12.8 oz (88.4 kg) Height: 5' 7 (1.702 m) Physical Exam Vitals and nursing note reviewed. Constitutional: General: He is not in acute distress. Appearance: Normal appearance. Skin: General: Skin is warm and dry. Comments: Plugged oil plan that has a blackhead Neurological: Mental Status: He is alert. An electronic signature was used to authenticate this note. Masoud Coello MD 07/06/2023 2:43 PM documented in this encounter [facility] 07-06-2023 History of Presen t illness Narrative Patient verified by last name and date of . Images from the original note were not included. 07/06/2023 Karen Carlson (: 1945) is a 78 y.o. male , Established patient, here for evaluation of the following chief complaint(s): Dysuria (Went to urgent care on 05/27/23 [facility] on 06/28/23 culture came back and changed atb and finished it yesterday ) and Skin Lesion (On back that is asking to be looked at ) ASSESSMENT/PLAN: 1. Recurrent UTI Assessment & Plan: Urinalysis today is completely clear and with his improved symptoms we will just watch for any further symptoms. Orders: - POCT urinalysis dipstick manually resulted 2. Sebaceous cyst Assessment & Plan: Reassurance this is dieting to be concerned about it can be removed if they squeeze it out. Follow up if symptoms worsen or fail to improve. SUBJECTIVE/OBJECTIVE: HPI -Julio comes in today for follow-up on his recurrent UTIs he recently was seen in a [facility] they checked his urine and it was positive so they put him on antibiotic sent for culture and call him and change his antibiotic. He finished his medication yesterday he was still having some dysuria but he says today it is much better. He also has a spot on his back that his would like me to look at. Review of Systems Genitourinary: Positive for dysuria. Negative for frequency and urgency. Skin: Positive for wound. Vitals: 07/06/23 1132 BP: 114/76 Pulse: 82 Weight: 194 lb 12.8 oz (88.4 kg) Height: 5' 7 (1.702 m) Physical Exam Vitals and nursing note reviewed. Constitutional: General: He is not in acute distress. Appearance: Normal appearance. Skin: General: Skin is warm and dry. Comments: Plugged oil plan that has a blackhead Neurological: Mental Status: He is alert. An electronic signature was used to authenticate this note. Masoud Coello MD 07/08/2023 7:14 AM documented in this encounter [facility] 07-06-2023 Note Addended by: MASOUD COELLO on: 07/08/2023 07:14 AM Modules accepted: Level of Service [facility] 07-05-2023 Telephone encounter Note S: ladonna calling [facility] d/t uti on antibiotic B: Symptoms started 06/26 A: ongoing pain with urination. 06/26 ucc burning when urinating started on nitrofuratin mono on 06/28 was changed to cephalexin (after culture) for 7 days has 1 capsule left. Continues to have burning with urination. States is less but still there. Denies fever, back pain, blood in urine. R: Insurance verified. Vahid scheduled with Dr. Coello at 11:30 on 07/06 advised to come 10-15 minutes early bring insurance card id and medication list. Discussed fluids. Pt advised to call back with worsening of symptoms, concern or questions. Pt verbalized understanding. Reason for Disposition [1] Taking antibiotic > 72 hours (3 days) for UTI AND [2] painful urination or frequency not improved Protocols used: Urinary Tract Infection on Antibiotic Follow-up Call - [id number] [facility] 07-05-2023 Miscellaneous Notes S: ladonna calling [facility] d/t uti on antibiotic B: Symptoms started 06/26 A: ongoing pain with urination. 06/26 ucc burning when urinating started on nitrofuratin mono on 06/28 was changed to cephalexin (after culture) for 7 days has 1 capsule left. Continues to have burning with urination. States is less but still there. Denies fever, back pain, blood in urine. R: Insurance verified. Vahid scheduled with Dr. Coello at 11:30 on 07/06 advised to come 10-15 minutes early bring insurance card id and medication list. Discussed fluids. Pt advised to call back with worsening of symptoms, concern or questions. Pt verbalized understanding. Reason for Disposition [1] Taking antibiotic > 72 hours (3 days) for UTI AND [2] painful urination or frequency not improved Protocols used: Urinary Tract Infection on Antibiotic Follow-up Call - [id number] documented in this encounter [facility] 06-30-2023 Telephone encounter Note Last ov- 05/11/23 Next ov- 08/16/23 [facility] 06-30-2023 Miscellaneous Notes Last ov- 05/11/23 Next ov- 08/16/23 documented in this encounter [facility] 06-26-2023 Note HNO ID: [id number] Author: Brendon Head APRN.[facility] Service: ? Author Type: Nurse Practitioner Type: Progress Notes Filed: 06/26/2023 1:56 PM Note Text: Subjective HPI HPI Karen Carlson is a 78 year old male who presents today for CC of urinary urgency, burning, frequency. This started 2 days ago. Has tried nothing for relief. Symptoms are worsened by nothing. Risk factors hx of uti. .Patient presents with: Urinary Frequency: burning with urination x 2 days PAST MEDICAL HISTORY Diagnosis Date Hypertension Prostate cancer (HCC) PAST SURGICAL HISTORY Procedure Laterality Date HERNIA REPAIR HX ALLERGIES Patient has no known allergies. MEDICATIONS acetaminophen (TYLENOL) 500 mg tablet Take by mouth as directed. dilTIAZem CR (TIAZAC, TAZTIA XT) 120 mg 24 hr capsule Take 1 capsule by mouth every morning. dorzolamide-timolol (COSOPT) 22.3-6.8 mg/mL ophthalmic solution 1 Drop. ipratropium bromide (ATROVENT) 42 mcg (0.06 %) nasal spray 2 Sprays. latanoprost (XALATAN) 0.005 % ophthalmic solution instill 1 drop into right eye once daily memantine (NAMENDA) 10 mg tablet Take 10 mg by mouth. mupirocin (BACTROBAN) 2 % ointment Apply to affected area. potassium chloride 20 mEq TbER Take 1 tablet by mouth once daily. pramipexole (MIRAPEX) 1 mg tablet Take 1 mg by mouth. prednisoLONE acetate (PRED FORTE) 1 % ophthalmic suspension instill 1 drop into left eye twice a day Ascorbic Acid 1,000 mg TbER Take by mouth as directed. aspirin, enteric coated (ASPIRIN, ENTERIC COATED) 81 mg EC tablet Take 81 mg by mouth. CALCIUM CARBONATE-VITAMIN D3 ORAL Take by mouth as directed. carbidopa-levodopa (SINEMET 25-100) 25-100 mg per tablet entacapone (COMTAN) 200 mg tablet take 1 tablet by mouth twice a day with 1ST AND 3RD DOSES OF CARBIDOPA-LEVODOPA tamsulosin (FLOMAX) 0.4 mg Take 1 capsule by mouth every afternoon. torsemide (DEMADEX) 20 mg tablet Take 1 tablet by mouth every afternoon. nitrofurantoin monohydrate and macrocrystal (MACROBID) 100 mg capsule Take 1 capsule by mouth two times a day for 7 days. atenolol 50 mg tablet Take 1 tablet by mouth once daily. (Patient not taking: Reported on 06/26/2023) FAMILY HISTORY Problem Relation Age of Onset other (unknown [Other]) Other Social History Tobacco Use Smoking status: Never Smokeless tobacco: Never Substance Use Topics Alcohol use: No Drug use: No Review of Systems Constitutional: Negative for chills, fever and weight loss. Respiratory: Negative for cough, shortness of breath and wheezing. Cardiovascular: Negative for chest pain and palpitations. Gastrointestinal: Negative for abdominal pain, blood in stool, constipation, diarrhea, heartburn, melena, nausea and vomiting. Genitourinary: Positive for dysuria, frequency and urgency. Negative for flank pain and hematuria. Musculoskeletal: Negative for myalgias. Objective Blood pressure 112/68, pulse 86, temperature 36.4 ?C (97.5 ?F), resp. rate 16, weight 88.9 kg (196 lb), SpO2 97%. Physical Exam Constitutional: General: He is not in acute distress. Appearance: Normal appearance. He is not toxic-appearing. Cardiovascular: Rate and Rhythm: Normal rate and regular rhythm. Heart sounds: Normal heart sounds. Pulmonary: Effort: Pulmonary effort is normal. Breath sounds: Normal breath sounds. Abdominal: General: Bowel sounds are normal. Palpations: Abdomen is soft. Tenderness: There is no abdominal tenderness. Skin: General: Skin is warm and dry. ASSESSMENT/PLAN: 1. Urinary frequency - ICD9: 788.41, ICD10: R35.0 (primary diagnosis) acute - UA positive for kailash esterase - Send urine for culture - Begin treatment with Macrobid 100 mg BID for 7 days - Patient education for prevention given - UA DIP, URINE (POC) - URINE CULTURE - NITROFURANTOIN MONOHYDRATE AND MACROCRYSTAL 100 MG ORAL CAP 2. Burning with urination - ICD9: 788.1, ICD10: R30.0 - UA DIP, URINE (POC) - URINE CULTURE - NITROFURANTOIN MONOHYDRATE AND MACROCRYSTAL 100 MG ORAL CAP Brendon Head APRN.[facility] 06-26-2023 History of Presen t illness Narrative Subjective HPI HPI Karen Carlson is a 78 year old male who presents today for CC of urinary urgency, burning, frequency. This started 2 days ago. Has tried nothing for relief. Symptoms are worsened by nothing. Risk factors hx of uti. .Patient presents with: Urinary Frequency: burning with urination x 2 days PAST MEDICAL HISTORY Diagnosis Date Hypertension Prostate cancer (HCC) PAST SURGICAL HISTORY Procedure Laterality Date HERNIA REPAIR HX ALLERGIES Patient has no known allergies. MEDICATIONS acetaminophen (TYLENOL) 500 mg tablet Take by mouth as directed. dilTIAZem CR (TIAZAC, TAZTIA XT) 120 mg 24 hr capsule Take 1 capsule by mouth every morning. dorzolamide-timolol (COSOPT) 22.3-6.8 mg/mL ophthalmic solution 1 Drop. ipratropium bromide (ATROVENT) 42 mcg (0.06 %) nasal spray 2 Sprays. latanoprost (XALATAN) 0.005 % ophthalmic solution instill 1 drop into right eye once daily memantine (NAMENDA) 10 mg tablet Take 10 mg by mouth. mupirocin (BACTROBAN) 2 % ointment Apply to affected area. potassium chloride 20 mEq TbER Take 1 tablet by mouth once daily. pramipexole (MIRAPEX) 1 mg tablet Take 1 mg by mouth. prednisoLONE acetate (PRED FORTE) 1 % ophthalmic suspension instill 1 drop into left eye twice a day Ascorbic Acid 1,000 mg TbER Take by mouth as directed. aspirin, enteric coated (ASPIRIN, ENTERIC COATED) 81 mg EC tablet Take 81 mg by mouth. CALCIUM CARBONATE-VITAMIN D3 ORAL Take by mouth as directed. carbidopa-levodopa (SINEMET 25-100) 25-100 mg per tablet entacapone (COMTAN) 200 mg tablet take 1 tablet by mouth twice a day with 1ST AND 3RD DOSES OF CARBIDOPA-LEVODOPA tamsulosin (FLOMAX) 0.4 mg Take 1 capsule by mouth every afternoon. torsemide (DEMADEX) 20 mg tablet Take 1 tablet by mouth every afternoon. nitrofurantoin monohydrate and macrocrystal (MACROBID) 100 mg capsule Take 1 capsule by mouth two times a day for 7 days. atenolol 50 mg tablet Take 1 tablet by mouth once daily. (Patient not taking: Reported on 06/26/2023) FAMILY HISTORY Problem Relation Age of Onset other (unknown [Other]) Other Social History Tobacco Use Smoking status: Never Smokeless tobacco: Never Substance Use Topics Alcohol use: No Drug use: No Review of Systems Constitutional: Negative for chills, fever and weight loss. Respiratory: Negative for cough, shortness of breath and wheezing. Cardiovascular: Negative for chest pain and palpitations. Gastrointestinal: Negative for abdominal pain, blood in stool, constipation, diarrhea, heartburn, melena, nausea and vomiting. Genitourinary: Positive for dysuria, frequency and urgency. Negative for flank pain and hematuria. Musculoskeletal: Negative for myalgias. Objective Blood pressure 112/68, pulse 86, temperature 36.4 C (97.5 F), resp. rate 16, weight 88.9 kg (196 lb), SpO2 97%. Physical Exam Constitutional: General: He is not in acute distress. Appearance: Normal appearance. He is not toxic-appearing. Cardiovascular: Rate and Rhythm: Normal rate and regular rhythm. Heart sounds: Normal heart sounds. Pulmonary: Effort: Pulmonary effort is normal. Breath sounds: Normal breath sounds. Abdominal: General: Bowel sounds are normal. Palpations: Abdomen is soft. Tenderness: There is no abdominal tenderness. Skin: General: Skin is warm and dry. ASSESSMENT/PLAN: 1. Urinary frequency - ICD9: 788.41, ICD10: R35.0 (primary diagnosis) acute - UA positive for kailash esterase - Send urine for culture - Begin treatment with Macrobid 100 mg BID for 7 days - Patient education for prevention given - UA DIP, URINE (POC) - URINE CULTURE - NITROFURANTOIN MONOHYDRATE & MACROCRYSTAL 100 MG ORAL CAP 2. Burning with urination - ICD9: 788.1, ICD10: R30.0 - UA DIP, URINE (POC) - URINE CULTURE - NITROFURANTOIN MONOHYDRATE & MACROCRYSTAL 100 MG ORAL CAP Brendon Head APRN.[facility] documented in this encounter [facility] 06-26-2023 Instructions Brendon Head APRN.CNP - 06/26/2023 1:45 PM EST PATIENT INSTRUCTIONS for Male Urinary Track Infections Expected course/prognosis: Clearing of infections with appropriate antibiotic treatment Possible complications: Pyelonephritis Ascending infection Recurrent infection Instructions: * Close followup until clinically well and repeat urinalysis after treatment * Hydration and analgesis if required * Discontinue sexual activity until cured * Prompt treatment of predisposing factors *Go to the Emergency room if fever, chills, or flank pain develop Please call your PCP if you are not feeling better in 3-5 days. documented in this encounter [facility] 06-20-2023 Telephone encounter Note Okay, thank you [facility] 06-20-2023 Miscellaneous Notes Okay, thank you S: Patient's spoke with [facility] nurse regarding cough, patient reported SOB, Headache, sore throat B: Onset of symptoms/concern 06/19/23 A: Patient's stated patient reports SOB though she does not see him struggling to breath, reports his breathing appears to normal to her. reports patient is weak. will find assistance to get him into the office. Did not COVID Test, [facility] nurse instructed to wear mask to appt. R: [facility] nurse Scheduled appt with PCP for 06/21/23 at 3:15 pm. Insurance verified, instructed to arrive 15 min prior and bring photo ID, insurance card. Patient understands home care advice. Patient instructed to call back with new or worsening symptoms. Reason for Disposition Patient wants to be seen Answer Assessment - Initial Assessment Questions 1. ONSET: When did the cough begin? yesterday 2. SEVERITY: How bad is the cough today? intermittent 3. SPUTUM: Describe the color of your sputum (none, dry cough; clear, white, yellow, green) Non-prod- moist 4. HEMOPTYSIS: Are you coughing up any blood? If so ask: How much? (flecks, streaks, tablespoons, etc.) no 5. DIFFICULTY BREATHING: Are you having difficulty breathing? If Yes, ask: How bad is it? (e.g., mild, moderate, severe) - MILD: No SOB at rest, mild SOB with walking, speaks normally in sentences, can lie down, no retractions, pulse < 100. - MODERATE: SOB at rest, SOB with minimal exertion and prefers to sit, cannot lie down flat, speaks in phrases, mild retractions, audible wheezing, pulse 100-120. - SEVERE: Very SOB at rest, speaks in single words, struggling to breathe, sitting hunched forward, retractions, pulse > 120 no 6. FEVER: Do you have a fever? If Yes, ask: What is your temperature, how was it measured, and when did it start? no 7. CARDIAC HISTORY: Do you have any history of heart disease? (e.g., heart attack, congestive heart failure) A fib 8. LUNG HISTORY: Do you have any history of lung disease? (e.g., pulmonary embolus, asthma, emphysema) no 9. PE RISK FACTORS: Do you have a history of blood clots? (or: recent major surgery, recent prolonged travel, bedridden) Clot in bladder 10. OTHER SYMPTOMS: Do you have any other symptoms? (e.g., runny nose, wheezing, chest pain) Runny nose 11. : Is there any chance you are ? When was your last menstrual period? na 12. TRAVEL: Have you traveled out of the country in the last month? (e.g., travel history, exposures) no Protocols used: [id number] documented in this encounter [facility] 06-20-2023 Telephone encounter Note S: Patient's spoke with [facility] nurse regarding cough, patient reported SOB, Headache, sore throat B: Onset of symptoms/concern 06/19/23 A: Patient's stated patient reports SOB though she does not see him struggling to breath, reports his breathing appears to normal to her. reports patient is weak. will find assistance to get him into the office. Did not COVID Test, [facility] nurse instructed to wear mask to appt. R: [facility] nurse Scheduled appt with PCP for 06/21/23 at 3:15 pm. Insurance verified, instructed to arrive 15 min prior and bring photo ID, insurance card. Patient understands home care advice. Patient instructed to call back with new or worsening symptoms. Reason for Disposition Patient wants to be seen Answer Assessment - Initial Assessment Questions 1. ONSET: When did the cough begin? yesterday 2. SEVERITY: How bad is the cough today? intermittent 3. SPUTUM: Describe the color of your sputum (none, dry cough; clear, white, yellow, green) Non-prod- moist 4. HEMOPTYSIS: Are you coughing up any blood? If so ask: How much? (flecks, streaks, tablespoons, etc.) no 5. DIFFICULTY BREATHING: Are you having difficulty breathing? If Yes, ask: How bad is it? (e.g., mild, moderate, severe) - MILD: No SOB at rest, mild SOB with walking, speaks normally in sentences, can lie down, no retractions, pulse < 100. - MODERATE: SOB at rest, SOB with minimal exertion and prefers to sit, cannot lie down flat, speaks in phrases, mild retractions, audible wheezing, pulse 100-120. - SEVERE: Very SOB at rest, speaks in single words, struggling to breathe, sitting hunched forward, retractions, pulse > 120 no 6. FEVER: Do you have a fever? If Yes, ask: What is your temperature, how was it measured, and when did it start? no 7. CARDIAC HISTORY: Do you have any history of heart disease? (e.g., heart attack, congestive heart failure) A fib 8. LUNG HISTORY: Do you have any history of lung disease? (e.g., pulmonary embolus, asthma, emphysema) no 9. PE RISK FACTORS: Do you have a history of blood clots? (or: recent major surgery, recent prolonged travel, bedridden) Clot in bladder 10. OTHER SYMPTOMS: Do you have any other symptoms? (e.g., runny nose, wheezing, chest pain) Runny nose 11. : Is there any chance you are ? When was your last menstrual period? na 12. TRAVEL: Have you traveled out of the country in the last month? (e.g., travel history, exposures) no Protocols used: [id number] [facility] 05-11-2023 History of Presen t illness Narrative Images from the original note were not included. [facility] [address] [facility] [address] [facility] [address] Dept: [phone] Dept Loc: [phone] Visit type: Established Patient Reason for Visit: Follow-up Assessment and Plan 1. Parkinson's disease without dyskinesia or fluctuating manifestations - carbidopa-levodopa (Sinemet) 25-100 MG tablet; Take 1 tablet by mouth 2 times daily. With first and last dose of the 50/200 pills, Starting 05/11/2023, Until [place] 05/10/2024, Normal 2. Binocular visual disturbance Subjective HPI: He reports that he has falls where he falls either backward or forward since I last saw him but none as bad as the one he had prior to the last visit in his driveway. He has had lightheaded spells. They are infrequent. He has occl trouble swallowing. He has not had hallucinations. He is reporting that he is having trouble with his vision. He reports that he is having blurring of the vision. His eye doctor told him that he had a significant reduction in his visual acuity and the eye doctor did not find an eyeball issue to explain the issue. REVIEW OF SYSTEMS: Review of Systems Constitutional: Negative for appetite change, chills, diaphoresis, fever and unexpected weight change. HENT: Negative for dental problem and mouth sores. Eyes: Negative for discharge and itching. Respiratory: Negative for chest tightness. Cardiovascular: Negative for chest pain and leg swelling. Gastrointestinal: Negative for rectal pain and vomiting. Endocrine: Negative for polydipsia, polyphagia and polyuria. Genitourinary: Negative for decreased urine volume, flank pain and genital sores. Musculoskeletal: Negative for arthralgias. Skin: Negative for color change. Allergic/Immunologic: Negative for food allergies and immunocompromised state. Neurological: Positive for tremors and weakness. Memory loss Hematological: Negative for adenopathy. Does not bruise/bleed easily. Psychiatric/Behavioral: Positive for hallucinations. Negative for agitation, behavioral problems, decreased concentration, sleep disturbance and suicidal ideas. Allergies Allergen Reactions Lidocaine Other reaction(s): Angioedema, U Peppermint Oil Other reaction(s): Angioedema, U Phenylephrine Other reaction(s): Angioedema, U Current Outpatient Medications: acetaminophen (Tylenol) 500 MG tablet, Take by mouth., Disp: , Rfl: ascorbid acid ER (Vitamin C) 1000 MG ER tablet, Take by mouth., Disp: , Rfl: aspirin 81 MG EC tablet, Take 81 mg by mouth in the morning., Disp: , Rfl: Calcium Carb-Cholecalciferol 1000-800 MG-UNIT tablet, Take by mouth., Disp: , Rfl: carbidopa-levodopa CR (Sinemet CR) 50-200 MG ER tablet, Take 1 tablet by mouth in the morning and 1 tablet at noon and 1 tablet in the evening and 1 tablet before bedtime. 5 AM, 10 AM, 3 PM, and 10 PM.., Disp: 360 tablet, Rfl: 3 dilTIAZem ER (Tiazac) 120 MG 24 hr capsule, Take 1 capsule by mouth in the morning., Disp: , Rfl: dorzolamide-timolol (Cosopt) 22.3-6.8 MG/ML ophthalmic solution, 1 drop., Disp: , Rfl: Elastic Bandages & Supports (Medical Compression Stockings) [facility] [place], DIRECTED, Disp: , Rfl: entacapone (Comtan) 200 MG tablet, Take 1 tablet (200 mg) by mouth 2 times daily. With the first and third doses of carbidopa-levodopa, Disp: 90 tablet, Rfl: 2 ipratropium (Atrovent) 0.06 % nasal spray, Administer 2 sprays into each nostril 3 times daily., Disp: 15 mL, Rfl: 0 latanoprost (Xalatan) 0.005 % ophthalmic solution, instill 1 drop into right eye once daily, Disp: , Rfl: memantine (Namenda) 10 MG tablet, Take 1 tablet (10 mg) by mouth 2 times daily., Disp: 60 tablet, Rfl: 5 potassium chloride CR (Klor-Con M20) 20 MEQ ER tablet, Take 1 tablet (20 mEq) by mouth daily., Disp: 90 tablet, Rfl: 1 pramipexole (Mirapex) 1 MG tablet, Take 1 tablet (1 mg) by mouth in the morning and 1 tablet (1 mg) at noon and 1 tablet (1 mg) in the evening and 1 tablet (1 mg) before bedtime. With the carb-levo., Disp: 360 tablet, Rfl: 3 prednisoLONE acetate (Pred-Forte) 1 % ophthalmic suspension, instill 1 drop into left eye twice a day, Disp: , Rfl: tamsulosin (Flomax) 0.4 MG 24 hr capsule, take 1 capsule by mouth once daily, Disp: 90 capsule, Rfl: 1 torsemide (Demadex) 20 MG tablet, take 1 tablet by mouth once daily, Disp: 30 tablet, Rfl: 2 atenolol (Tenormin) 50 MG tablet, take 1 tablet by mouth every morning and take 1/2 tablet by mouth every evening (Patient not taking: Reported on 04/12/2023), Disp: 135 tablet, Rfl: 1 carbidopa-levodopa (Sinemet) 25-100 MG tablet, Take 1 tablet by mouth 2 times daily. With first and last dose of the 50/200 pills, Disp: 90 tablet, Rfl: 2 mupirocin (Bactroban) 2 % ointment, Apply topically three times daily. (Patient not taking: Reported on 05/11/2023), Disp: 15 g, Rfl: 0 Past Medical History: Diagnosis Date A-fib (CMS/HCC) (HCC) Actinic keratosis ALFRED (acute kidney injury) (HCC) Atrial fibrillation (HCC) Cardiomyopathy (HCC) Cataract both eyes Cellulitis ZIEGLER (dyspnea on exertion) Hyperlipidemia Hypertension Lower extremity edema Mitral valve insufficiency Non-pressure chronic ulcer of left calf, unspecified ulcer stage (HCC) Parkinson's disease Prostate CA (HCC) Prostate cancer (HCC) Severe sepsis (HCC) Shingles 05/2015 Umbilical hernia Urinary retention UTI (urinary tract infection) Social History Tobacco Use Smoking status: Never Smokeless tobacco: Never Substance Use Topics Alcohol use: No Past Surgical History: Procedure Laterality Date BLADDER SURGERY 01/2019 COLONOSCOPY 06/2006 polyp removed EXTREMITY SURGERY Left 09/2021 L leg injury for hematoma EYE SURGERY metal removed HERNIA REPAIR Family History Problem Relation Name Age of Onset High Blood Pressure Mother High Blood Pressure Father Heart disease Mother Cancer Father colon Objective Vitals: BP 126/86 (BP Location: Right arm, Patient Position: Sitting, BP Cuff Size: Adult) Pulse 90 Ht 5' 7 (1.702 m) Wt 197 lb (89.4 kg) BMI 30.85 kg/m General Appearance: Patient is in no apparent distress. Head is normocephalic, atraumatic. Wearing neck support brace Cardiovascular: Irregular rate and rhythm. No heart murmurs. No carotid bruit Neurologic: Mentation: Alert and oriented x 3 [address] person, place and time. Speech and Language: Speech and language normal Concentration and Attention: Concentration normal Memory: Memor grossly the same Fund of Knowledge: Fund of knowledge normal Cranial Nerves: II, III, IV, V, , VII, VIII, IX, X, XI, XII examined and were intact. Normal eye movements, no masked facies Motor: Strength: Strength 5 out of 5 with normal tone Alternating Movements: Mildly slowed Cogwheel Rigidity: None Tone: Tone is normal Tremor / Involuntary Movements: Nearly zero rest tremor today Deep Tendon Reflexes: 1 out of 4 symmetrical in all four limbs. Coordination: Normal coordination upper and lower extremities Gait and Station: Station is normal. Gait is abnormal. Stooped shuffles with walker. Data Reviewed and Summarized DIAGNOSTIC TESTING CBC: No results found for: WBC , RBC , HGB , HCT , MCV , MCH , MCHC , RDW , PLT , MPV CMP: Lab Results Component Value Date NA 140 01/28/2022 K 4.3 01/28/2022 CL 106 01/28/2022 CO2 28 01/31/2023 BUN 22 01/31/2023 CREATININE 1.06 01/31/2023 AGRATIO 1.4 01/31/2023 GLUCOSE 87 01/31/2023 PROT 6.7 01/31/2023 CALCIUM 9.3 01/31/2023 BILITOT 0.5 01/31/2023 ALKPHOS 73 01/31/2023 AST 12 01/31/2023 ALT 6 (L) 01/31/2023 BMP: Lab Results Component Value Date NA 140 01/28/2022 K 4.3 01/28/2022 CL 106 01/28/2022 CO2 28 01/31/2023 BUN 22 01/31/2023 CREATININE 1.06 01/31/2023 CALCIUM 9.3 01/31/2023 GLUCOSE 87 01/31/2023 PT/INR: No results found for: PROTIME , INR PTT: No results found for: APTT , PTT [APTT} FLP: Lab Results Component Value Date TRIG 195 (A) 01/28/2022 HDL 38 (L) 01/28/2022 TSH: No results found for: TSH VITAMIN B12: No results found for: [id number] No results found for: PHENYTOIN , PHENOBARB , VALPROATE , CBMZ No components found for: TOPIRA @RESULTINGLABINFO@ No results found for: LEVETIRACETA , FERRITIN , CRP , LOREE , ANCA No results found for: GUNNAR , IMMUNOGLOBUL , OLIGOBANDS No results found for: [id number] , HEPCAB No results found for: CRP , ANATITER , ANCA FERRITIN: No results found for: FERRITIN ---- ECG 12 lead - CLINIC PERFORMED Atrial fibrillation -irregular conduction ABNORMAL RHYTHM IMPRESSION and PLAN: Diagnosis Plan 1. Parkinson's disease without dyskinesia or fluctuating manifestations carbidopa-levodopa (Sinemet) 25-100 MG tablet 2. Binocular visual disturbance Will continue the pramipexole 1 mg 4 times daily. Continue the Sinemet CR QID with Comtan on 1st and 3rd doses. I am not sure that the eye issues are related to the parkinson's but I will try carb-levo 25/100 regular release with the first and fourth doses of the 50/200. Will see if the increase in PD meds help, but I am suspicious that something other than PD is causing this. KAREN BOSS MD I spent 40 minutes caring for this patient today, reviewing labs, records, seeing the patient, documenting in the record and arranging for studies. documented in this encounter [facility] 05-05-2023 Telephone encounter Note New order placed for knee high compression stockings. [facility] 05-05-2023 Miscellaneous Notes New order placed for knee high compression stockings. I would call them and see what he would wear. [facility] called stating they need a new script for compression socks, they need to know the length that the socks should be. Please advise. documented in this encounter [facility] 05-04-2023 Telephone encounter Note I would call them and see what he would wear. [facility] Work Phone: 05-03-2023 Telephone encounter Note [facility] called stating they need a new script for compression socks, they need to know the length that the socks should be. Please advise. [facility] 04-29-2023 History of Presen t illness Narrative [facility] Card[facility] [address] [address] Dept: [phone] Dept Loc: [phone] Visit type: New : 1945 Chief Complaint: Chief Complaint Patient presents with New Patient Referral from for watchman History of Present Illness: Karen Carlson is a 77 y.o. male with permanent AF who presents to discuss Watchman. He has frequent falls due to his Parkinson's. He falls once or twice a month. He uses a walker due to his unsteadiness. He also has a history of significant epistaxis while on Eliquis. He is currently not anticoagulated. Past Medical History: Past Medical History: Diagnosis Date A-fib (CMS/HCC) (HCC) Actinic keratosis ALFRED (acute kidney injury) (HCC) Atrial fibrillation (HCC) Cardiomyopathy (HCC) Cataract both eyes Cellulitis ZIEGLER (dyspnea on exertion) Hyperlipidemia Hypertension Lower extremity edema Mitral valve insufficiency Non-pressure chronic ulcer of left calf, unspecified ulcer stage (HCC) Parkinson's disease Prostate CA (HCC) Prostate cancer (HCC) Severe sepsis (HCC) Shingles 05/2015 Umbilical hernia Urinary retention UTI (urinary tract infection) Past Surgical History Past Surgical History: Procedure Laterality Date BLADDER SURGERY 01/2019 COLONOSCOPY 06/2006 polyp removed EXTREMITY SURGERY Left 09/2021 L leg injury for hematoma EYE SURGERY metal removed HERNIA REPAIR Family History Family History Problem Relation Name Age of Onset High Blood Pressure Mother High Blood Pressure Father Heart disease Mother Cancer Father colon Social History Social History Tobacco Use Smoking status: Never Smokeless tobacco: Never Substance Use Topics Alcohol use: No Drug use: No Comment: 3 cups of coffee per day Allergies: Allergies Allergen Reactions Lidocaine Other reaction(s): Angioedema, U Peppermint Oil Other reaction(s): Angioedema, U Phenylephrine Other reaction(s): Angioedema, U Medications: Current Outpatient Medications: acetaminophen (Tylenol) 500 MG tablet, Take by mouth., Disp: , Rfl: ascorbid acid ER (Vitamin C) 1000 MG ER tablet, Take by mouth., Disp: , Rfl: aspirin 81 MG EC tablet, Take 81 mg by mouth in the morning., Disp: , Rfl: atenolol (Tenormin) 50 MG tablet, take 1 tablet by mouth every morning and take 1/2 tablet by mouth every evening (Patient not taking: Reported on 04/12/2023), Disp: 135 tablet, Rfl: 1 Calcium Carb-Cholecalciferol 1000-800 MG-UNIT tablet, Take by mouth., Disp: , Rfl: carbidopa-levodopa CR (Sinemet CR) 50-200 MG ER tablet, Take 1 tablet by mouth in the morning and 1 tablet at noon and 1 tablet in the evening and 1 tablet before bedtime. 5 AM, 10 AM, 3 PM, and 10 PM.., Disp: 360 tablet, Rfl: 3 dilTIAZem ER (Tiazac) 120 MG 24 hr capsule, Take 1 capsule by mouth in the morning., Disp: , Rfl: dorzolamide-timolol (Cosopt) 22.3-6.8 MG/ML ophthalmic solution, 1 drop., Disp: , Rfl: Elastic Bandages & Supports (Medical Compression Stockings) [facility] [place], DIRECTED, Disp: , Rfl: entacapone (Comtan) 200 MG tablet, Take 1 tablet (200 mg) by mouth 2 times daily. With the first and third doses of carbidopa-levodopa, Disp: 90 tablet, Rfl: 2 ipratropium (Atrovent) 0.06 % nasal spray, Administer 2 sprays into each nostril 3 times daily., Disp: 15 mL, Rfl: 0 latanoprost (Xalatan) 0.005 % ophthalmic solution, instill 1 drop into right eye once daily, Disp: , Rfl: memantine (Namenda) 10 MG tablet, Take 1 tablet (10 mg) by mouth 2 times daily., Disp: 60 tablet, Rfl: 5 mupirocin (Bactroban) 2 % ointment, Apply topically three times daily., Disp: 15 g, Rfl: 0 potassium chloride CR (Klor-Con M20) 20 MEQ ER tablet, Take 1 tablet (20 mEq) by mouth daily., Disp: 90 tablet, Rfl: 1 pramipexole (Mirapex) 1 MG tablet, Take 1 tablet (1 mg) by mouth in the morning and 1 tablet (1 mg) at noon and 1 tablet (1 mg) in the evening and 1 tablet (1 mg) before bedtime. With the carb-levo., Disp: 360 tablet, Rfl: 3 prednisoLONE acetate (Pred-Forte) 1 % ophthalmic suspension, instill 1 drop into left eye twice a day, Disp: , Rfl: tamsulosin (Flomax) 0.4 MG 24 hr capsule, take 1 capsule by mouth once daily, Disp: 90 capsule, Rfl: 1 torsemide (Demadex) 20 MG tablet, take 1 tablet by mouth once daily, Disp: 30 tablet, Rfl: 2 Review of Systems: Review of Systems Constitutional: Positive for fatigue. HENT: Negative. Eyes: Negative. Respiratory: Negative. Cardiovascular: Positive for leg swelling. Gastrointestinal: Negative. Endocrine: Negative. Genitourinary: Negative. Musculoskeletal: Positive for gait problem and neck pain. Skin: Negative. Allergic/Immunologic: Negative. Neurological: Positive for dizziness (if he stands too fast). Hematological: Negative. Psychiatric/Behavioral: Negative. Physical Examination: Vitals: Vitals: 04/29/23 1305 BP: 122/80 Pulse: 68 Weight: 189 lb (85.7 kg) Height: 5' 7 (1.702 m) Body mass index is 29.6 kg/m . Physical Exam Constitutional: Appearance: Normal appearance. HENT: Head: Normocephalic and atraumatic. Mouth/Throat: Mouth: Mucous membranes are moist. Eyes: Extraocular Movements: Extraocular movements intact. Cardiovascular: Rate and Rhythm: Normal rate. Rhythm irregular. Pulses: Normal pulses. Heart sounds: Normal heart sounds. Pulmonary: Effort: Pulmonary effort is normal. Breath sounds: Normal breath sounds. Abdominal: Palpations: Abdomen is soft. Skin: General: Skin is warm and dry. Neurological: Mental Status: He is alert and oriented to person, place, and time. Psychiatric: Mood and Affect: Mood normal. Behavior: Behavior normal. Thought Content: Thought content normal. Judgment: Judgment normal. Laboratory Tests: No results found for: WBC , HGB , HCT , MCV , PLT Lab Results Component Value Date GLUCOSE 87 01/31/2023 CALCIUM 9.3 01/31/2023 NA 140 01/28/2022 K 4.3 01/28/2022 CO2 28 01/31/2023 CL 106 01/28/2022 BUN 22 01/31/2023 CREATININE 1.06 01/31/2023 @LASTP@ Lab Results Component Value Date CHOL 162 01/28/2022 CHOL 169 01/26/2021 CHOL 179 01/25/2020 Lab Results Component Value Date TRIG 195 (A) 01/28/2022 TRIG 139 01/26/2021 TRIG 140 01/25/2020 Lab Results Component Value Date HDL 38 (L) 01/28/2022 HDL 41 01/26/2021 HDL 51 01/25/2020 Assessment and Plan: 1. Longstanding persistent atrial fibrillation (HCC) 2. Epistaxis 3. Frequent falls Mr. Carlson is a 77 year old male who is here to discuss the Watchman procedure. He follows with Dr. Paulson who agrees that LAAO would be a good option due to Mr. Carlson's high risk of CVA with his permanent AF. His [id number] is 4. I discussed the procedure, risks, and benefits in great detail. He is here with family. They will consider the procedure and call if they would like to proceed. He will require a JAILENE prior to the procedure to rule out GLORY thrombus. We can do this on the day of the procedure prior to coming to the EP lab for the Watchman. documented in this encounter [facility] 03-28-2023 Telephone encounter Note Returned call and spoke with his . Dr. Longoria has reviewed the MRI of the cervical spine. There is age related degenerative changes, no significant stenosis, no fractures or malalignment. He does not recommend any surgical intervention. I expressed to his that neurology may be a good step to take; he follows with Dr. Boss. She stated they will discuss with him. [facility] Work Phone: 03-28-2023 Miscellaneous Notes Returned call and spoke with his . Dr. Longoria has reviewed the MRI of the cervical spine. There is age related degenerative changes, no significant stenosis, no fractures or malalignment. He does not recommend any surgical intervention. I expressed to his that neurology may be a good step to take; he follows with Dr. Boss. She stated they will discuss with him. Imaging uploaded to PACS and report scanned under media tab Pt. Brought in MRI disk from Aug 2022. The patients MRI for March was cancelled. Pt would like to know if Dr. Longoria could advise the patient as to how they should proceed with treatment. Patient was advised that Dr. Longoria may want them to schedule an appointment. Please call to advise. Disk has been placed on the desk. documented in this encounter [facility] 03-25-2023 Telephone encounter Note Imaging uploaded to PACS and report scanned under media tab [facility] 03-25-2023 Telephone encounter Note Pt. Brought in MRI disk from Aug 2022. The patients MRI for March was cancelled. Pt would like to know if Dr. Longoria could advise the patient as to how they should proceed with treatment. Patient was advised that Dr. Longoria may want them to schedule an appointment. Please call to advise. Disk has been placed on the desk. [facility] 03-14-2023 History of Presen t illness Narrative NEUROSURGERY CONSULT NOTE Patient Name: Karen Carlson Patient : 1945 PCP: Masoud Coello MD History of Present Ilness: 77 y.o. presents with complaint of neck pain, inability to hold head up. States that he was reaching items above his head about a year ago and feels that he pulled something in the back of his neck. He had sudden onset of pain and neck getting stiff. Does report episodes of burning in his left shoulder. Has had 2 steriod injections and an ablation and epidural in the cervical spine this past January; Dr. Roque is PM doctor. Chief Complaint Patient presents with New Patient Cervical issues and dropped head Conservative Treatments: Physical Therapy: Y; multiple sessions, he reports minimal improvement NSAID's: N Narcotics: N Muscle relaxants: N Epidural injections: N Chiropractor: N Past Medical History: Past Medical History: Diagnosis Date A-fib (CMS/HCC) (HCC) Actinic keratosis ALFRED (acute kidney injury) (CMS/HCC) (HCC) Atrial fibrillation (CMS/HCC) (HCC) Cardiomyopathy (HCC) Cataract both eyes Cellulitis ZIEGLER (dyspnea on exertion) Hyperlipidemia Hypertension Lower extremity edema Mitral valve insufficiency Non-pressure chronic ulcer of left calf, unspecified ulcer stage (HCC) Parkinson's disease (HCC) Prostate CA (HCC) Prostate cancer (HCC) Severe sepsis (HCC) Shingles 05/2015 Umbilical hernia Urinary retention UTI (urinary tract infection) Past Surgical History: Past Surgical History: Procedure Laterality Date BLADDER SURGERY 01/2019 COLONOSCOPY 06/2006 polyp removed EXTREMITY SURGERY Left 09/2021 L leg injury for hematoma EYE SURGERY metal removed HERNIA REPAIR Home Medications: Prior to Admission medications Medication Sig Start Date End Date Taking? Authorizing Provider acetaminophen (Tylenol) 500 MG tablet Take by mouth. 11/10/21 Yes Historical Provider, ascorbid acid ER (Vitamin C) 1000 MG ER tablet Take by mouth. Yes Historical Provider, aspirin 81 MG EC tablet Take 81 mg by mouth in the morning. Yes Historical Provider, atenolol (Tenormin) 50 MG tablet take 1 tablet by mouth every morning and take 1/2 tablet by mouth every evening 01/31/23 Yes Carmina Nava APRN - ARSLAN Calcium Carb-Cholecalciferol 1000-800 MG-UNIT tablet Take by mouth. Yes Historical Provider, dilTIAZem ER (Tiazac) 120 MG 24 hr capsule Take 1 capsule by mouth in the morning. 02/12/22 Yes Historical Provider, dorzolamide-timolol (Cosopt) 22.3-6.8 MG/ML ophthalmic solution 1 drop. 10/05/19 Yes Historical Provider, Elastic Bandages & Supports (Medical Compression Stockings) [facility] [place] DIRECTED 12/25/21 Yes Historical Provider, entacapone (Comtan) 200 MG tablet Take 1 tablet (200 mg) by mouth 2 times daily. With the first and third doses of carbidopa-levodopa 02/18/23 05/19/23 Yes Karen Boss MD latanoprost (Xalatan) 0.005 % ophthalmic solution instill 1 drop into right eye once daily 06/19/21 Yes Historical Provider, memantine (Namenda) 10 MG tablet Take 1 tablet (10 mg) by mouth 2 times daily. 01/20/23 07/19/23 Yes BETH Hartmann CNP mupirocin (Bactroban) 2 % ointment Apply topically three times daily. 11/04/22 Yes Masoud Coello MD potassium chloride CR (Klor-Con M20) 20 MEQ ER tablet Take 1 tablet (20 mEq) by mouth daily. 02/25/23 Yes Masoud Coello MD pramipexole (Mirapex) 1 MG tablet Take 1 tablet (1 mg) by mouth in the morning and 1 tablet (1 mg) at noon and 1 tablet (1 mg) in the evening and 1 tablet (1 mg) before bedtime. With the carb-levo. 12/16/22 12/16/23 Yes Karen Boss MD prednisoLONE acetate (Pred-Forte) 1 % ophthalmic suspension instill 1 drop into left eye twice a day 10/08/20 Yes Historical Provider, tamsulosin (Flomax) 0.4 MG 24 hr capsule take 1 capsule by mouth once daily 02/24/23 Yes Masoud Coello MD torsemide (Demadex) 20 MG tablet take 1 tablet by mouth once daily 03/04/23 Yes BETH Hartmann CNP carbidopa-levodopa CR (Sinemet CR) 50-200 MG ER tablet Take 1 tablet by mouth in the morning and 1 tablet at noon and 1 tablet in the evening and 1 tablet before bedtime. 5 AM, 10 AM, 3 PM, and 10 PM.. 09/30/22 02/18/23 Karen Boss MD ipratropium (Atrovent) 0.06 % nasal spray Administer 2 sprays into each nostril 3 times daily. 01/10/23 02/18/23 Mildred Jasmine APRN - ARSLAN Allergies: Lidocaine, Peppermint oil, and Phenylephrine Social History: TOBACCO: reports that he has never smoked. He has never used smokeless tobacco. ETOH: reports no history of alcohol use. RECREATIONAL DRUG USE: Social History Substance and Sexual Activity Drug Use No Family History: Family History Problem Relation Name Age of Onset High Blood Pressure Mother High Blood Pressure Father Heart disease Mother Cancer Father colon Review of Systems Constitutional: Negative. HENT: Negative. Eyes: Negative. Respiratory: Negative. Cardiovascular: Negative. Gastrointestinal: Negative. Endocrine: Negative. Genitourinary: Negative. Musculoskeletal: Negative. Skin: Negative. Neurological: Positive for weakness. Psychiatric/Behavioral: Negative. Physical Examination: Vitals: 03/14/23 1112 BP: 122/81 Pulse: 92 Resp: 16 Temp: 36 C (96.8 F) Physical Exam Constitutional: Appearance: Normal appearance. HENT: Head: Normocephalic. Eyes: Extraocular Movements: Extraocular movements intact. Pupils: Pupils are equal, round, and reactive to light. Cardiovascular: Rate and Rhythm: Normal rate. Pulmonary: Effort: Pulmonary effort is normal. Abdominal: Palpations: Abdomen is soft. Musculoskeletal: Cervical back: Rigidity and tenderness present. Pain with movement present. Decreased range of motion. Skin: General: Skin is warm and dry. Neurological: General: No focal deficit present. Mental Status: He is alert and oriented to person, place, and time. Cranial Nerves: Cranial nerves 2-12 are intact. Gait: Gait is intact. Deep Tendon Reflexes: Reflex Scores: Brachioradialis reflexes are 0 on the right side and 0 on the left side. Patellar reflexes are 0 on the right side and 0 on the left side. Psychiatric: Mood and Affect: Mood normal. Judgment: Judgment normal. Neurologic Exam Mental Status Oriented to person, place, and time. Cranial Nerves Cranial nerves II through XII intact. CN III, IV, Pupils are equal, round, and reactive to light. Motor Exam Muscle bulk: normal Overall muscle tone: normal Strength Right neck flexion: 2/5 Left neck flexion: 2/5 Right neck extension: 2/5 Left neck extension: 2/5 Right deltoid: 4/5 Left deltoid: 4/5 Right biceps: 5/5 Left biceps: 5/5 Right triceps: 5/5 Left triceps: 5/5 Right wrist flexion: 5/5 Left wrist flexion: 5/5 Right wrist extension: 5/5 Left wrist extension: 5/5 Right interossei: 5/5 Left interossei: 5/5 Sensory Exam Light touch normal. Gait, Coordination, and Reflexes Gait Gait: normal Reflexes Right brachioradialis: 0 Left brachioradialis: 0 Right patellar: 0 Left patellar: 0 Right Bonilla: absent Left Bonilla: absentUtilizes walker for safety; hx of Parkinson's disease Gait shuffling; family reports gait instability due to Parkinson';s Results Labs: Last 24hrs No results found for this or any previous visit (from the past 24 hour(s)). Radiology Personal review: Plain films of the cervical spine from 2021 show loss of cervical lordosis centered on C5 4 C5 with severe disc degeneration C4-C5 C5-C6. ASSESSMENT / PLAN : He has an MRI scheduled for later this month of the cervical spine. He will contact the office when it is completed so we can review it and give him a call. He may benefit from either posterior or anterior cervical fusion to help decrease his cervical kyphosis. The MRI will help answer that question, we can then discuss the possible surgical options with the family as well as way his medical risk. Diagnosis Plan 1. Cervical spondylosis without myelopathy [facility] [place] 2. Dropped head syndrome [facility] [place] documented in this encounter [facility] 03-04-2023 Telephone encounter Note Reviewed chart. Refill appropriate. Rx sent. [facility] 03-04-2023 Miscellaneous Notes Reviewed chart. Refill appropriate. Rx sent. Prescription Request: Last medication check: 08/02/22 Last physical exam: 01/31/23 Next scheduled appointment: 08/03/23 Last date of refill on this medication 02/01/23 30 days documented in this encounter [facility] 03-04-2023 Telephone encounter Note Prescription Request: Last medication check: 08/02/22 Last physical exam: 01/31/23 Next scheduled appointment: 08/03/23 Last date of refill on this medication 02/01/[address] [facility] 02-25-2023 Miscellaneous Notes Ordering provider: Dr. Coello Date of last office visit: 01.31.23 Date of next office visit: 08.03.23 Updated/Validated preferred pharmacy: Yes [id number] - [place], [place] - [address] Patient instructed to contact the pharmacy prior to picking up the medication: Yes (1) Medication name: potassium chloride CR (Klor-Con M20) 20 MEQ ER tablet Medication dosage: 20 MEQ ER Monthly quantity needed: 30 How many day supply requestin year Medication route: oral (PO) Medication administration time(s): daily If taking medication PRN, reason for taking medication: N/A If this is a controlled substance do you receive this or any other controlled medication from any other doctor or facility: No Date of last refill (see medication tab): 09.08.[address] encounter [facility] 02-25-2023 Telephone encounter Note Ordering provider: Dr. Coello Date of last office visit: 01.31.23 Date of next office visit: 08.03.23 Updated/Validated preferred pharmacy: Yes [id number] - [place], [place] - [address] Patient instructed to contact the pharmacy prior to picking up the medication: Yes (1) Medication name: potassium chloride CR (Klor-Con M20) 20 MEQ ER tablet Medication dosage: 20 MEQ ER Monthly quantity needed: 30 How many day supply requestin year Medication route: oral (PO) Medication administration time(s): daily If taking medication PRN, reason for taking medication: N/A If this is a controlled substance do you receive this or any other controlled medication from any other doctor or facility: No Date of last refill (see medication tab): 3.8.23 [facility] 02-18-2023 History of Presen t illness Narrative [facility] [address] [facility] [address] Dept: [phone] Dept Loc: [phone] Visit type: Established Patient Reason for Visit: Follow-up and Parkinson's Disease Assessment and Plan 1. Paroxysmal atrial fibrillation (CMS/HCC) (HCC) - [facility] 2. Syncope and collapse - [facility] 3. Parkinson's disease ([facility]) 4. Dementia due to Parkinson's disease, unspecified dementia severity, unspecified whether behavioral, psychotic, or mood disturbance or anxiety ([facility]) 5. Cervical spondylosis without myelopathy Subjective HPI: He had an episode of falling in the drive way. He does not remember what happened. His reports that she found him on the driveway and that he was disoriented. The following day his heart was racing. He went to [place] [facility]. He was not admitted. He has not had the consult with cardiology that I ordered in December set up yet. He is unsteady on his feet. He is having a great deal of difficulty with his head drooping down. He had a head CT at [place], I do not have access to the images, that reported simply degenerative changes at multiple levels. He is having trouble swallowing. He reports that he is seeing people that are not there, sometimes farm machinery. He can tell that it is not real, but it is becoming an issue. REVIEW OF SYSTEMS: Review of Systems Constitutional: Negative for appetite change, chills, diaphoresis, fever and unexpected weight change. HENT: Negative for dental problem and mouth sores. Eyes: Negative for discharge and itching. Respiratory: Negative for chest tightness. Cardiovascular: Negative for chest pain and leg swelling. Gastrointestinal: Negative for rectal pain and vomiting. Endocrine: Negative for polydipsia, polyphagia and polyuria. Genitourinary: Negative for decreased urine volume, flank pain and genital sores. Musculoskeletal: Negative for arthralgias. Skin: Negative for color change. Allergic/Immunologic: Negative for food allergies and immunocompromised state. Neurological: Positive for tremors and weakness. Memory loss Hematological: Negative for adenopathy. Does not bruise/bleed easily. Psychiatric/Behavioral: Positive for hallucinations. Negative for agitation, behavioral problems, decreased concentration, sleep disturbance and suicidal ideas. Allergies Allergen Reactions Lidocaine Other reaction(s): Angioedema, U Peppermint Oil Other reaction(s): Angioedema, U Phenylephrine Other reaction(s): Angioedema, U Current Outpatient Medications: acetaminophen (Tylenol) 500 MG tablet, Take by mouth., Disp: , Rfl: ascorbid acid ER (Vitamin C) 1000 MG ER tablet, Take by mouth., Disp: , Rfl: aspirin 81 MG EC tablet, Take 81 mg by mouth in the morning., Disp: , Rfl: atenolol (Tenormin) 50 MG tablet, take 1 tablet by mouth every morning and take 1/2 tablet by mouth every evening, Disp: 135 tablet, Rfl: 1 Calcium Carb-Cholecalciferol 1000-800 MG-UNIT tablet, Take by mouth., Disp: , Rfl: carbidopa-levodopa CR (Sinemet CR) 50-200 MG ER tablet, Take 1 tablet by mouth in the morning and 1 tablet at noon and 1 tablet in the evening and 1 tablet before bedtime. 5 AM, 10 AM, 3 PM, and 10 PM.., Disp: 360 tablet, Rfl: 3 dilTIAZem ER (Tiazac) 120 MG 24 hr capsule, Take 1 capsule by mouth in the morning., Disp: , Rfl: dorzolamide-timolol (Cosopt) 22.3-6.8 MG/ML ophthalmic solution, 1 drop., Disp: , Rfl: Elastic Bandages & Supports (Medical Compression Stockings) [facility] [place], DIRECTED, Disp: , Rfl: ipratropium (Atrovent) 0.06 % nasal spray, Administer 2 sprays into each nostril 3 times daily., Disp: 15 mL, Rfl: 0 latanoprost (Xalatan) 0.005 % ophthalmic solution, instill 1 drop into right eye once daily, Disp: , Rfl: memantine (Namenda) 10 MG tablet, Take 1 tablet (10 mg) by mouth 2 times daily., Disp: 60 tablet, Rfl: 5 mupirocin (Bactroban) 2 % ointment, Apply topically three times daily., Disp: 15 g, Rfl: 0 potassium chloride CR (Klor-Con M20) 20 MEQ ER tablet, Take 1 tablet (20 mEq) by mouth daily., Disp: 90 tablet, Rfl: 1 pramipexole (Mirapex) 1 MG tablet, Take 1 tablet (1 mg) by mouth in the morning and 1 tablet (1 mg) at noon and 1 tablet (1 mg) in the evening and 1 tablet (1 mg) before bedtime. With the carb-levo., Disp: 360 tablet, Rfl: 3 prednisoLONE acetate (Pred-Forte) 1 % ophthalmic suspension, instill 1 drop into left eye twice a day, Disp: , Rfl: tamsulosin (Flomax) 0.4 MG 24 hr capsule, Take 1 capsule (0.4 mg) by mouth daily., Disp: 90 capsule, Rfl: 0 torsemide (Demadex) 20 MG tablet, take 1 tablet by mouth once daily, Disp: 30 tablet, Rfl: 0 furosemide (Lasix) 40 MG tablet, , Disp: , Rfl: Past Medical History: Diagnosis Date A-fib (CMS/HCC) (HCC) Actinic keratosis ALFRED (acute kidney injury) (CMS/HCC) (HCC) Atrial fibrillation (CMS/HCC) (HCC) Cardiomyopathy (HCC) Cataract both eyes Cellulitis ZIEGLER (dyspnea on exertion) Hyperlipidemia Hypertension Lower extremity edema Mitral valve insufficiency Non-pressure chronic ulcer of left calf, unspecified ulcer stage (HCC) Parkinson's disease (HCC) Prostate CA (HCC) Prostate cancer (HCC) Severe sepsis (HCC) Shingles 05/2015 Umbilical hernia Urinary retention UTI (urinary tract infection) Social History Tobacco Use Smoking status: Never Smokeless tobacco: Never Substance Use Topics Alcohol use: No Past Surgical History: Procedure Laterality Date BLADDER SURGERY 01/2019 COLONOSCOPY 06/2006 polyp removed EXTREMITY SURGERY Left 09/2021 L leg injury for hematoma EYE SURGERY metal removed HERNIA REPAIR Family History Problem Relation Name Age of Onset High Blood Pressure Mother High Blood Pressure Father Heart disease Mother Cancer Father colon Objective Vitals: BP 133/89 (BP Location: Right arm) Pulse 104 Wt 203 lb (92.1 kg) BMI 33.27 kg/m General Appearance: Patient is in no apparent distress. Head is normocephalic, atraumatic. Wearing neck support brace Cardiovascular: Irregular rate and rhythm. No heart murmurs. No carotid bruit Neurologic: Mentation: Alert and oriented x 3 [address], [address] and time. Speech and Language: Speech and language normal Concentration and Attention: Concentration normal Memory: Memory 3/3 immed, 3/3 short Fund of Knowledge: Fund of knowledge normal Cranial Nerves: II, III, IV, V, , VII, VIII, IX, X, XI, XII examined and were intact. Motor: Strength: Strength 5 out of 5 with normal tone Alternating Movements: Mildly slowed Cogwheel Rigidity: None Tone: Tone is normal Tremor / Involuntary Movements: Nearly zero rest tremor today Deep Tendon Reflexes: 1 out of 4 symmetrical in all four limbs. Coordination: Normal coordination upper and lower extremities Gait and Station: Station is normal. Gait is abnormal. Stooped shuffles with walker. Data Reviewed and Summarized DIAGNOSTIC TESTING CBC: No results found for: WBC, RBC, HGB, HCT, MCV, MCH, MCHC, RDW, PLT, MPV CMP: Lab Results Component Value Date NA 140 01/28/2022 K 4.3 01/28/2022 CL 106 01/28/2022 CO2 28 01/31/2023 BUN 22 01/31/2023 CREATININE 1.06 01/31/2023 AGRATIO 1.4 01/31/2023 GLUCOSE 87 01/31/2023 PROT 6.7 01/31/2023 CALCIUM 9.3 01/31/2023 BILITOT 0.5 01/31/2023 ALKPHOS 73 01/31/2023 AST 12 01/31/2023 ALT 6 (L) 01/31/2023 BMP: Lab Results Component Value Date NA 140 01/28/2022 K 4.3 01/28/2022 CL 106 01/28/2022 CO2 28 01/31/2023 BUN 22 01/31/2023 CREATININE 1.06 01/31/2023 CALCIUM 9.3 01/31/2023 GLUCOSE 87 01/31/2023 PT/INR: No results found for: PROTIME, INR PTT: No results found for: APTT, PTT[APTT} FLP: Lab Results Component Value Date TRIG 195 (A) 01/28/2022 HDL 38 (L) 01/28/2022 TSH: No results found for: TSH VITAMIN B12: No results found for: [id number] No results found for: PHENYTOIN, PHENOBARB, VALPROATE, CBMZ No components found for: TOPIRA @RESULTINGLABINFO@ No results found for: LEVETIRACETA, FERRITIN, CRP, LOREE, ANCA No results found for: GUNNAR, IMMUNOGLOBUL, OLIGOBANDS No results found for: [id number], HEPCAB No results found for: CRP, ANATITER, ANCA, ANCA FERRITIN: No results found for: FERRITIN ---- XR foot 3+ views right Narrative: Patient Name: KAREN CARLSON : 1945 [facility]#: [id number] Exam Date/Time: 11/04/2022 12:57 Procedure: XR FOOT 3+ VIEWS RIGHT Ordering Provider: COELLO DARRELL Reason For Exam: wound RIGHT FOOT THREE VIEWS CLINICAL INDICATION: wound TECHNIQUE: Three views of the right foot. COMPARISON: None FINDINGS: Small plantar spur. No acute bone destruction or acute fracture seen. Variable changes of osteoarthrosis at the interphalangeal joints. No erosive changes. Moderate osteoarthrosis at first MTP joint. Impression: 1. Degenerative changes. No acute bone destruction seen. Report Dictated on Electronically Signed By: Alxe Orta Electronically Signed Date/Time: 11/05/2022 10:31 PM EDT IMPRESSION and PLAN: Diagnosis Plan 1. Paroxysmal atrial fibrillation (CMS/HCC) (HCC) [facility] 2. Syncope and collapse [facility] 3. Parkinson's disease (HCC) 4. Dementia due to Parkinson's disease, unspecified dementia severity, unspecified whether behavioral, psychotic, or mood disturbance or anxiety (HCC) 5. Cervical spondylosis without myelopathy Will try to get him in with cardiology as soon as we can for the a-fib with tachycardia and now a syncopal spell. As with #1 above He is somewhat better than the last exam but the improvement was only in tremor and cogwheeling not in the stooping and not in the walking. He feels that the PD meds are wearing off before his 3 PM doses. It is not safe to go up higher on the pramipexole. He is having hallucinations with the Sinemet. Will add entacapone to his morning dose and afternoon dose. He has tried many weeks of PT without success. We have tried increasing the PD meds without succes. MRI c-spine to see if he needs surgical intervention. He is to see neurosurgery as well. KAREN BOSS MD I spent 40 minutes caring for this patient today, reviewing labs, records, seeing the patient, documenting in the record and arranging for studies. @SIGNATURE@ documented in this encounter [facility] 02-15-2023 Telephone encounter Note All medical record request have been faxed to [facility]. [facility] 02-15-2023 Miscellaneous Notes All medical record request have been faxed to [employer]. Name of caller: Naldo Contact phone number: [phone] Relationship to Patient: [employer] Provider: Practice: Neurology Chief Complaint/Reason for Call: Naldo is requesting to be advised if the office had received a records request that was faxed on 01/06/23. Please contact and advise. Best time of day caller can be reached: Any Patient advised that office/PCP has 24-48 business hours to return their call: Yes documented in this encounter [facility] 02-15-2023 Telephone encounter Note Name of caller: Naldo Contact phone number: [phone] Relationship to Patient: [employer] Provider: Practice: Neurology Chief Complaint/Reason for Call: Naldo is requesting to be advised if the office had received a records request that was faxed on 01/06/23. Please contact and advise. Best time of day caller can be reached: Any Patient advised that office/PCP has 24-48 business hours to return their call: Yes [facility] 01-31-2023 Telephone encounter Note Rx sent. [facility] 01-31-2023 Miscellaneous Notes Rx sent. Prescription Request: Last medication check: 08/02/22 Last physical exam: 01/31/23 Next scheduled appointment: none--appt today Last date of refill on this medication 08/02/22 90 days 1 refill documented in this encounter [facility] 01-31-2023 Evaluation + Plan note Associated Problem(s): Major depressive disorder, single episode, in partial remission (HCC) Partial remission, refusing medications. [facility] 01-31-2023 Miscellaneous Notes Associated Problem(s): Major depressive disorder, single episode, in partial remission (HCC) Partial remission, refusing medications. Associated Problem(s): Morbid (severe) obesity due to excess calories (HCC) Weight loss, encouraged to continue weight loss. Associated Problem(s): Peripheral vascular disease, unspecified (HCC) Stable, currently not an issue due to not being able to walk very well. Associated Problem(s): Other secondary pulmonary hypertension (HCC) Stable, no medications. Associated Problem(s): Hypertension Controlled, continue diltiazem 120 mg daily Associated Problem(s): Parkinson's disease (HCC) Stable, continue carbidopa levodopa and Mirapex at current doses, follow-up with neurology as scheduled. documented in this encounter [facility] 01-31-2023 Evaluation + Plan note Associated Problem(s): Morbid (severe) obesity due to excess calories (HCC) Weight loss, encouraged to continue weight loss. [facility] 01-31-2023 Evaluation + Plan note Associated Problem(s): Peripheral vascular disease, unspecified (HCC) Stable, currently not an issue due to not being able to walk very well. [facility] 01-31-2023 Evaluation + Plan note Associated Problem(s): Other secondary pulmonary hypertension (HCC) Stable, no medications. [facility] 01-31-2023 Evaluation + Plan note Associated Problem(s): Hypertension Controlled, continue diltiazem [address] [facility] 01-31-2023 Evaluation + Plan note Associated Problem(s): Parkinson's disease (HCC) Stable, continue carbidopa levodopa and Mirapex at current doses, follow-up with neurology as scheduled. [facility] 01-31-2023 Telephone encounter Note Prescription Request: Last medication check: 08/02/22 Last physical exam: 01/31/23 Next scheduled appointment: none--appt today Last date of refill on this medication 08/02/[address] [facility] 01-31-2023 History of Presen t illness Narrative Health Maintenance/pend orders Allergies Meds-pharmacy Medical hx Surgical hx Family hx Tobacco use E-Cigarette/vaping use Alcohol use Drug use Fall Risk HRA PHQ2/9 Social Determinants Pend any medication refills needed All of the above have been reviewed/completed Images from the original note were not included. [facility] [id number] Visit type: Established Patient Reason for Visit: Medicare Annual Wellness Visit Subsequent, Health Maintenance (Shingrix-declines/TDAP-declines /COVID vaccine-none/Hepatitis C screen-declines), and Blood Work Assessment and Plan Problem List Items Addressed This Visit Nervous Parkinson's disease (HCC) Stable, continue carbidopa levodopa and Mirapex at current doses, follow-up with neurology as scheduled. Circulatory Peripheral vascular disease, unspecified (HCC) Stable, currently not an issue due to not being able to walk very well. Other secondary pulmonary hypertension (HCC) Stable, no medications. Hypertension Controlled, continue diltiazem 120 mg daily Endocrine/Metabolic Morbid (severe) obesity due to excess calories (HCC) Weight loss, encouraged to continue weight loss. Other Major depressive disorder, single episode, in partial remission (HCC) Partial remission, refusing medications. Other Visit Diagnoses Medicare annual wellness visit, subsequent - Primary Screening for diabetes mellitus Relevant Orders Comprehensive metabolic panel Screening for ischemic heart disease Relevant Orders Lipid panel Follow up in about 6 months (around 08/03/2023). Christiana Kim comes in today for his annual Medicare well visit for follow-up on his Parkinson's, hypertension and depression due to his major illnesses. He continues to have calluses on the bottom of his feet and we referred him to podiatry couple of weeks ago and they have not heard any thing yet so recommend getting gel inserts for her shoes. He continues to have difficulty weakness of his is related to his Parkinson's and his arthritis in his neck I have reviewed and reconciled the medication list with the patient today. Current Outpatient Medications Medication Sig Dispense Refill acetaminophen (Tylenol) 500 MG tablet Take by mouth. ascorbid acid ER (Vitamin C) 1000 MG ER tablet Take by mouth. aspirin 81 MG EC tablet Take 81 mg by mouth in the morning. atenolol (Tenormin) 50 MG tablet take 1 tablet by mouth every morning and take 1/2 tablet by mouth every evening 135 tablet 1 Calcium Carb-Cholecalciferol 1000-800 MG-UNIT tablet Take by mouth. carbidopa-levodopa CR (Sinemet CR) 50-200 MG ER tablet Take 1 tablet by mouth in the morning and 1 tablet at noon and 1 tablet in the evening and 1 tablet before bedtime. 5 AM, 10 AM, 3 PM, and 10 PM.. 360 tablet 3 dilTIAZem ER (Tiazac) 120 MG 24 hr capsule Take 1 capsule by mouth in the morning. dorzolamide-timolol (Cosopt) 22.3-6.8 MG/ML ophthalmic solution 1 drop. Elastic Bandages & Supports (Medical Compression Stockings) misc DIRECTED ipratropium (Atrovent) 0.06 % nasal spray Administer 2 sprays into each nostril 3 times daily. 15 mL 0 latanoprost (Xalatan) 0.005 % ophthalmic solution instill 1 drop into right eye once daily memantine (Namenda) 10 MG tablet Take 1 tablet (10 mg) by mouth 2 times daily. 60 tablet 5 mupirocin (Bactroban) 2 % ointment Apply topically three times daily. 15 g 0 potassium chloride CR (Klor-Con M20) 20 MEQ ER tablet Take 1 tablet (20 mEq) by mouth daily. 90 tablet 1 pramipexole (Mirapex) 1 MG tablet Take 1 tablet (1 mg) by mouth in the morning and 1 tablet (1 mg) at noon and 1 tablet (1 mg) in the evening and 1 tablet (1 mg) before bedtime. With the carb-levo. 360 tablet 3 prednisoLONE acetate (Pred-Forte) 1 % ophthalmic suspension instill 1 drop into left eye twice a day tamsulosin (Flomax) 0.4 MG 24 hr capsule Take 1 capsule (0.4 mg) by mouth daily. 90 capsule 0 torsemide (Demadex) 20 MG tablet take 1 tablet by mouth once daily 30 tablet 0 No current facility-administered medications for this visit. There are no discontinued medications. List of current healthcare providers: Patient Care Team: Masoud Coello MD as PCP - General Over the past 2 weeks, how often have you been bothered by any of the following problems? Trouble falling or staying asleep, or sleeping too much: Nearly every day Feeling tired or having little energy: Nearly every day Poor appetite or overeating: Nearly every day Feeling bad about yourself - or that you are a failure or have let yourself or your family down: Several days Trouble concentrating on things, such as reading the newspaper or watching television: More than half the days Moving or speaking so slowly that other people could have noticed? Or the opposite - being so fidgety or restless that you have been moving around a lot more than usual.: Not at all Thoughts that you would be better off or hurting yourself in some way: Not at all Patient Health Questionnaire-9 Score: 14 The following health maintenance schedule was reviewed with the patient and provided in printed form in the after visit summary: Health Maintenance Topic Date Due Thyroid Cancer Ultrasound Never done Thyroglobulin Test Never done Influenza Vaccine (1) 03/04/2023 Pneumococcal Vaccine: 65+ Years (1 - PCV) 08/02/2023 (Originally 2009) DTaP/Tdap/Td Vaccines (1 - Tdap) 01/29/2024 (Originally 1963) Zoster Vaccines (1 of 2) 01/29/2024 (Originally 1994) Depresssion Monitoring 07/31/2023 Lipid Panel 01/28/2027 HIB Vaccines Aged Out Hepatitis B Vaccines Aged Out IPV Vaccines Aged Out Hepatitis A Vaccines Aged Out Meningococcal Vaccine Aged Out Rotavirus Vaccines Aged Out HPV Vaccines Aged Out Hepatitis C Screening Discontinued COVID-19 Vaccine Discontinued Orders Placed This Encounter Procedures Lipid panel Standing Status: Future Number of Occurrences: 1 Standing Expiration Date: 01/29/2024 Comprehensive metabolic panel Standing Status: Future Number of Occurrences: 1 Standing Expiration Date: 01/29/2024 Health Risk Assessment: General In general, how would you say your health is?: (!) Fair In the past 7 days, have you experienced any of the following: New or Increased Pain, New or Increased Fatigue, Loneliness, Social Isolation, Stress or Anger?: No Do you get the social and emotional suppport you need?: Yes Interventions: Poor self-assessment of health status: has parkinsons Health Habits / Nutrition On average, how many days per week do you engage in moderate to strenous exercise (like a brisk walk)?: 7 days On average, how man minutes do you engage in exercise at this level?: 20 min Have you lost any weight without trying in the past 3 months? : No Have you seen the dentist within the past year?: Yes Interventions: Hearing / Vision Do you or your family notice any trouble with your hearing that hasn't been managed with hearing aids?: No Do you have difficulty driving, watching TV, or doing any of your daily activities because of your eyesight?: (!) Yes Have you had an eye exam within the past year?: Yes No results found. Interventions: Safety Do you have a working smoke detector?: Yes Do you have any tripping hazards - loose or unsecured carpets or rugs?: No Do you have any tripping hazards - clutter in doorways, halls, or stairs?: No Do you have either shower bars, grab bars, non-slip mats or non-slip surfaces in your shower or bathtub? : Yes Do all your stairways have a railing or banister? : (!) No Do you fasten your seatbelt when you are in a car?: Yes Interventions: ADL In the past 7 days, did you need help from others to perform any of the following everyday activities: Eating, dressing, grooming,bathing, toileting, or walking / balance? : (!) Yes Select all that apply: Walking / Balance, Grroming In the past 7 days, did you need help from others to take care of any of the following: laundry, housekeeping, banking / finances,shopping, telephone use, food preparation, transportation, or taking medications? : Yes Select all that apply: Transportation Interventions: Uses cane and walker Interventions: Advance Care Planning addressed with patient today Cognitive: Cognitive Screening: Mini-Cog Clock Drawing Test (CDT): 2 Words Recalled: 3 Total Score: 5 Total Score Interpretation: Normal Mini-Cog Interventions: Fall Risk: Interventions: Multiple falls due to parkinsons Depression Screening: Over the past 2 weeks, how often have you been bothered by any of the following problems? Little interest or pleasure in doing things: Several days Feeling down, depressed, or hopeless: Several days Patient Health Questionnaire-2 Score: 2 Over the past 2 weeks, how often have you been bothered by any of the following problems? Trouble falling or staying asleep, or sleeping too much: Nearly every day Feeling tired or having little energy: Nearly every day Poor appetite or overeating: Nearly every day Feeling bad about yourself - or that you are a failure or have let yourself or your family down: Several days Trouble concentrating on things, such as reading the newspaper or watching television: More than half the days Moving or speaking so slowly that other people could have noticed? Or the opposite - being so fidgety or restless that you have been moving around a lot more than usual.: Not at all Thoughts that you would be better off or hurting yourself in some way: Not at all Patient Health Questionnaire-9 Score: 14 If you checked off any problems on this questionnaire so far, How difficult have these problems made it for you to do your work, take care of things at home, or get along with other people?: Not difficult at all Interventions: Refusing meds Tobacco Use: Social History Tobacco Use Smoking Status Never Smokeless Tobacco Never Interventions: Alcohol Use: Audit Alcohol Screening Q1: How often do you have a drink containing alcohol?: Never Q2: How many drinks containing alcohol do you have on a typical day when you are drinking?: Patient does not drink Q3: How often do you have six or more drinks on one occasion?: Never Audit-C Score: 0 Skip to questions 9-10?: 1 Interventions: Drug Use: Interventions: Review of Systems Constitutional: Negative for activity change, appetite change, chills, fever and unexpected weight change. HENT: Negative for ear pain and sore throat. Respiratory: Negative for shortness of breath. Cardiovascular: Negative for chest pain and palpitations. Gastrointestinal: Negative for abdominal pain, blood in stool, constipation and diarrhea. Genitourinary: Negative for dysuria, frequency, hematuria and urgency. Musculoskeletal: Negative for arthralgias and back pain. Skin: Negative. Neurological: Negative for weakness and numbness. Psychiatric/Behavioral: Negative for dysphoric mood. The patient is not nervous/anxious. There is no immunization history on file for this patient. Allergies Allergen Reactions Lidocaine Other reaction(s): Angioedema, U Peppermint Oil Other reaction(s): Angioedema, U Phenylephrine Other reaction(s): Angioedema, U Outpatient Medications Prior to Visit Medication Sig Dispense Refill acetaminophen (Tylenol) 500 MG tablet Take by mouth. ascorbid acid ER (Vitamin C) 1000 MG ER tablet Take by mouth. aspirin 81 MG EC tablet Take 81 mg by mouth in the morning. atenolol (Tenormin) 50 MG tablet take 1 tablet by mouth every morning and take 1/2 tablet by mouth every evening 135 tablet 1 Calcium Carb-Cholecalciferol 1000-800 MG-UNIT tablet Take by mouth. carbidopa-levodopa CR (Sinemet CR) 50-200 MG ER tablet Take 1 tablet by mouth in the morning and 1 tablet at noon and 1 tablet in the evening and 1 tablet before bedtime. 5 AM, 10 AM, 3 PM, and 10 PM.. 360 tablet 3 dilTIAZem ER (Tiazac) 120 MG 24 hr capsule Take 1 capsule by mouth in the morning. dorzolamide-timolol (Cosopt) 22.3-6.8 MG/ML ophthalmic solution 1 drop. Elastic Bandages & Supports (Medical Compression Stockings) misc DIRECTED ipratropium (Atrovent) 0.06 % nasal spray Administer 2 sprays into each nostril 3 times daily. 15 mL 0 latanoprost (Xalatan) 0.005 % ophthalmic solution instill 1 drop into right eye once daily memantine (Namenda) 10 MG tablet Take 1 tablet (10 mg) by mouth 2 times daily. 60 tablet 5 mupirocin (Bactroban) 2 % ointment Apply topically three times daily. 15 g 0 potassium chloride CR (Klor-Con M20) 20 MEQ ER tablet Take 1 tablet (20 mEq) by mouth daily. 90 tablet 1 pramipexole (Mirapex) 1 MG tablet Take 1 tablet (1 mg) by mouth in the morning and 1 tablet (1 mg) at noon and 1 tablet (1 mg) in the evening and 1 tablet (1 mg) before bedtime. With the carb-levo. 360 tablet 3 prednisoLONE acetate (Pred-Forte) 1 % ophthalmic suspension instill 1 drop into left eye twice a day tamsulosin (Flomax) 0.4 MG 24 hr capsule Take 1 capsule (0.4 mg) by mouth daily. 90 capsule 0 torsemide (Demadex) 20 MG tablet take 1 tablet by mouth once daily 30 tablet 0 No facility-administered medications prior to visit. Past Medical History: Diagnosis Date A-fib (CMS/HCC) (HCC) Actinic keratosis ALFRED (acute kidney injury) (CMS/HCC) (HCC) Atrial fibrillation (CMS/HCC) (HCC) Cardiomyopathy (HCC) Cataract both eyes Cellulitis ZIEGLER (dyspnea on exertion) Hyperlipidemia Hypertension Lower extremity edema Mitral valve insufficiency Non-pressure chronic ulcer of left calf, unspecified ulcer stage (HCC) Parkinson's disease (HCC) Prostate CA (HCC) Prostate cancer (HCC) Severe sepsis (HCC) Shingles 05/2015 Umbilical hernia Urinary retention UTI (urinary tract infection) Social History Socioeconomic History Marital status: Tobacco Use Smoking status: Never Smokeless tobacco: Never Substance and Sexual Activity Alcohol use: No Drug use: No Social Determinants of Health Financial Resource Strain: Low Risk (01/28/2023) Overall Financial Resource Strain (CARDIA) Difficulty of Paying Living Expenses: Not hard at all Food Insecurity: No Food Insecurity (01/28/2023) Hunger Vital Sign Worried About Running Out of Food in the Last Year: Never true Ran Out of Food in the Last Year: Never true Transportation Needs: No Transportation Needs (01/28/2023) PRAPARE - Transportation Lack of Transportation (Medical): No Lack of Transportation (Non-Medical): No Physical Activity: Insufficiently Active (01/28/2023) Exercise Vital Sign Days of Exercise per Week: 7 days Minutes of Exercise per Session: 20 min Housing Stability: Low Risk (01/28/2023) Housing Stability Vital Sign Unable to Pay for Housing in the Last Year: No Number of Places Lived in the Last Year: 1 Unstable Housing in the Last Year: No Past Surgical History: Procedure Laterality Date BLADDER SURGERY 01/2019 COLONOSCOPY 06/2006 polyp removed EXTREMITY SURGERY Left 09/2021 L leg injury for hematoma EYE SURGERY metal removed HERNIA REPAIR Past Surgical History: Procedure Laterality Date BLADDER SURGERY 01/2019 COLONOSCOPY 06/2006 polyp removed EXTREMITY SURGERY Left 09/2021 L leg injury for hematoma EYE SURGERY metal removed HERNIA REPAIR Family History Problem Relation Name Age of Onset High Blood Pressure Mother High Blood Pressure Father Heart disease Mother Cancer Father colon Objective BP 118/74 (BP Location: Left arm) Pulse 65 Ht 5' 5.5 (1.664 m) Wt 198 lb (89.8 kg) SpO2 99% BMI 32.45 kg/m Physical Exam Vitals and nursing note reviewed. Constitutional: General: He is not in acute distress. Appearance: Normal appearance. HENT: Mouth/Throat: Mouth: Mucous membranes are moist. Pharynx: Oropharynx is clear. Eyes: Extraocular Movements: Extraocular movements intact. Pupils: Pupils are equal, round, and reactive to light. Cardiovascular: Rate and Rhythm: Normal rate and regular rhythm. Heart sounds: Normal heart sounds. No murmur heard. Pulmonary: Effort: Pulmonary effort is normal. Breath sounds: Normal breath sounds. Abdominal: General: Bowel sounds are normal. Palpations: Abdomen is soft. Tenderness: There is no abdominal tenderness. Musculoskeletal: General: Normal range of motion. Cervical back: Neck supple. Lymphadenopathy: Cervical: No cervical adenopathy. Skin: General: Skin is warm and dry. Neurological: General: No focal deficit present. Mental Status: He is alert and oriented to person, place, and time. Psychiatric: Mood and Affect: Mood normal. Data Reviewed Labs: Imaging/Testing: Masoud Coello MD 01/31/2023 11:30 AM documented in this encounter [facility] 01-20-2023 Telephone encounter Note Message released to patient as written. Patient's further questions if applicable: N/A Were all questions from office addressed or relayed to the patient from encounter: Yes [facility] 01-20-2023 Miscellaneous Notes Message released to patient as written. Patient's further questions if applicable: N/A Were all questions from office addressed or relayed to the patient from encounter: Yes Attempted to reach pt no answer, voicemail was not set up. Contact the patient/family. I did NOT discontinue the memantine. The computer says that Dr. Coello discontinued it. Please have them find out from Dr. Coello why it was discontinued. Please advise. Name of caller: Snow Contact phone number: [phone] Relationship to Patient: spouse/SO Provider: monse Practice: neuro Chief Complaint/Reason for Call: patients spouse called in stating that they were unaware that the provider was taking the patient off of memantine (Namenda) 10 MG tablet And they wanted to know why. They wanted the know why and if the office could give them a callback at the offices earliest convenience. Please advise and thank you Best time of day caller can be reached: any Patient advised that office/PCP has 24-48 business hours to return their call: Yes documented in this encounter [facility] 01-20-2023 Telephone encounter Note Attempted to reach pt no answer, voicemail was not set up. [facility] 01-19-2023 Telephone encounter Note Contact the patient/family. I did NOT discontinue the memantine. The computer says that Dr. Coello discontinued it. Please have them find out from Dr. Coello why it was discontinued. [facility] 01-19-2023 Telephone encounter Note Please advise. [facility] 01-14-2023 Telephone encounter Note Name of caller: Snow Contact phone number: [phone] Relationship to Patient: spouse/SO Provider: monse Practice: neuro Chief Complaint/Reason for Call: patients spouse called in stating that they were unaware that the provider was taking the patient off of memantine (Namenda) 10 MG tablet And they wanted to know why. They wanted the know why and if the office could give them a callback at the offices earliest convenience. Please advise and thank you Best time of day caller can be reached: any Patient advised that office/PCP has 24-48 business hours to return their call: Yes [facility] 01-10-2023 Evaluation + Plan note Associated Problem(s): Callus under metatarsal head Bilateral callus metatarsal heads, recommend using emollient therapy daily and corn pads to reduce pressure. No signs or symptoms of infection. Will refer to podiatry for further evaluation, treatment and nail care. [facility] 01-10-2023 Miscellaneous Notes Associated Problem(s): Callus under metatarsal head Bilateral callus metatarsal heads, recommend using emollient therapy daily and corn pads to reduce pressure. No signs or symptoms of infection. Will refer to podiatry for further evaluation, treatment and nail care. Associated Problem(s): Nasal congestion Not likely infectious. Denies seasonal allergies. None ill-appearing. Recommend changing filter on in home air conditioner unit. Will start ipratropium nasal spray every 8 hours as needed for symptoms. Recommended to reduce or discontinue use if over drying occurs. documented in this encounter [facility] 01-10-2023 Evaluation + Plan note Associated Problem(s): Nasal congestion Not likely infectious. Denies seasonal allergies. None ill-appearing. Recommend changing filter on in home air conditioner unit. Will start ipratropium nasal spray every 8 hours as needed for symptoms. Recommended to reduce or discontinue use if over drying occurs. [facility] 01-10-2023 Telephone encounter Note Noted. Agree with disposition. [facility] 01-10-2023 Miscellaneous Notes Noted. Agree with disposition. S: Pt's (Snow) spoke with [facility] nurse regarding possible infection to pt's feet; had same issue in November. B: Onset of symptoms/concern recently returned. A: Snow states pt has recurring problem with sores on bottom of feet. Was seen in November for this and given antibiotics and cream to use. Infection got better but now is having dark spot on heel with white around it. Denies fever, redness or swelling to feet, numbness or tingling. Pt does c/o some mild to mod pain. Able to walk without difficulty. Wants appt for eval. R: Appt scheduled for eval today. Ins verified. Pt to bring photo ID; ins card to visit. Pt to call back if any further ques or concerns. Reason for Disposition Patient wants to be seen Answer Assessment - Initial Assessment Questions 1. ONSET: When did the pain start? Wound infection coming back again - recent 2. LOCATION: Where is the pain located? Both feet 3. PAIN: How bad is the pain? (Scale 1-10; or mild, moderate, severe) - MILD (1-3): doesn't interfere with normal activities. - MODERATE (4-7): interferes with normal activities (e.g., work or school) or awakens from sleep, limping. - SEVERE (8-10): excruciating pain, unable to do any normal activities, unable to walk. Mild to mod 4. WORK OR EXERCISE: Has there been any recent work or exercise that involved this part of the body? No 5. CAUSE: What do you think is causing the foot pain? Wound infection 6. OTHER SYMPTOMS: Do you have any other symptoms? (e.g., leg pain, rash, fever, numbness) No 7. : Is there any chance you are ? When was your last menstrual period? N/A Protocols used: Foot [id number] documented in this encounter [facility] 01-10-2023 History of Presen t illness Narrative Food Production Manager for Intimate and Non Intimate Exam Food Production Manager was declined Food Production Manager: na Images from the original note were not included. 01/10/2023 Karen Carlson (: 1945) is a 77 y.o. male , Established patient, here for evaluation of the following chief complaint(s): Foot Problem and Nasal Congestion ASSESSMENT/PLAN: 1. Callus under metatarsal head Assessment & Plan: Bilateral callus metatarsal heads, recommend using emollient therapy daily and corn pads to reduce pressure. No signs or symptoms of infection. Will refer to podiatry for further evaluation, treatment and nail care. Orders: - External referral to Podiatry 2. Nasal congestion Assessment & Plan: Not likely infectious. Denies seasonal allergies. None ill-appearing. Recommend changing filter on in home air conditioner unit. Will start ipratropium nasal spray every 8 hours as needed for symptoms. Recommended to reduce or discontinue use if over drying occurs. Orders: - ipratropium (Atrovent) 0.06 % nasal spray; Administer 2 sprays into each nostril 3 times daily., Starting 01/10/2023, Until Tue02/09/2023, Normal Follow up if symptoms worsen or fail to improve. SUBJECTIVE/OBJECTIVE: HPI - Karen Carlson (: 1945) is a 77 y.o. male , Established patient, here for the evaluation of the following chief complaint(s): Foot Problem and Nasal Congestion Presents with significant other for right foot pain x 1 week, ball of foot when stepping on it. Has had problems with calluses/corns on the balls of the feet. In November Dr. Coello debrided the left callous/wound-appeared infected at that time and was started on antibiotic. Had several follow up visits after and area healed well with consistent use of corn pads. Reports not using the corn pads for a couple months and was not bothering him until recently and then when looked at his feet, she noticed that the left callus/corn was white appearing- denies any pain with the left foot, but was concerned for the white appearing skin was infection. No fever or chills. Did place a corn pad on it this morning on the left, but not on the right. Nasal congestion in the evening, denies any seasonal allergies, occasional runny nose, has been doing for a couple months. Worse in the evening. Has not changed air filter on blower for AC/furnace for awhile. Prior to Admission medications Medication Sig Start Date End Date Taking? Authorizing Provider acetaminophen (Tylenol) 500 MG tablet Take by mouth. 11/10/21 Yes Historical Provider, ascorbid acid ER (Vitamin C) 1000 MG ER tablet Take by mouth. Yes Historical Provider, aspirin 81 MG EC tablet Take 81 mg by mouth in the morning. Yes Historical Provider, atenolol (Tenormin) 50 MG tablet take 1 tablet by mouth every morning and take 1/2 tablet by mouth every evening 08/02/22 Yes Carmina Nava APRN - ARSLAN Calcium Carb-Cholecalciferol 1000-800 MG-UNIT tablet Take by mouth. Yes Historical Provider, carbidopa-levodopa CR (Sinemet CR) 50-200 MG ER tablet Take 1 tablet by mouth in the morning and 1 tablet at noon and 1 tablet in the evening and 1 tablet before bedtime. 5 AM, 10 AM, 3 PM, and 10 PM.. 09/30/22 01/10/23 Yes Karen Boss MD dilTIAZem ER (Tiazac) 120 MG 24 hr capsule Take 1 capsule by mouth in the morning. 02/12/22 Yes Historical Provider, dorzolamide-timolol (Cosopt) 22.3-6.8 MG/ML ophthalmic solution 1 drop. 10/05/19 Yes Historical Provider, Elastic Bandages & Supports (Medical Compression Stockings) [facility] [place] DIRECTED 12/25/21 Yes Historical Provider, latanoprost (Xalatan) 0.005 % ophthalmic solution instill 1 drop into right eye once daily 06/19/21 Yes Historical Provider, mupirocin (Bactroban) 2 % ointment Apply topically three times daily. 11/04/22 Yes Masoud Coello MD potassium chloride CR (Klor-Con M20) 20 MEQ ER tablet Take 1 tablet (20 mEq) by mouth daily. 09/08/22 Yes Masoud Coello MD pramipexole (Mirapex) 1 MG tablet Take 1 tablet (1 mg) by mouth in the morning and 1 tablet (1 mg) at noon and 1 tablet (1 mg) in the evening and 1 tablet (1 mg) before bedtime. With the carb-levo. 12/16/22 12/16/23 Yes Karen Boss MD prednisoLONE acetate (Pred-Forte) 1 % ophthalmic suspension instill 1 drop into left eye twice a day 10/08/20 Yes Historical ProviderMD tamsulosin (Flomax) 0.4 MG 24 hr capsule Take 1 capsule (0.4 mg) by mouth daily. 12/01/22 Yes Masoud Coello MD torsemide (Demadex) 20 MG tablet take 1 tablet by mouth once daily Patient not taking: Reported on 01/10/2023 12/28/22 Masoud Coello MD Review of Systems Constitutional: Negative for activity change, chills, fatigue and fever. Respiratory: Negative for shortness of breath. Cardiovascular: Negative for chest pain and leg swelling. Genitourinary: Negative for difficulty urinating. Skin: Positive for color change and wound. Vitals: 01/10/23 1048 BP: 115/72 Pulse: 86 Resp: 14 Temp: 37.1 C (98.7 F) TempSrc: Infrared Weight: 201 lb (91.2 kg) Physical Exam Constitutional: General: He is not in acute distress. Appearance: Normal appearance. He is not ill-appearing. HENT: Head: Normocephalic and atraumatic. Cardiovascular: Rate and Rhythm: Normal rate and regular rhythm. Pulmonary: Effort: Pulmonary effort is normal. Breath sounds: Normal breath sounds. Musculoskeletal: Feet: Comments: Toenails thick. Skin: General: Skin is warm and dry. Neurological: Mental Status: He is alert and oriented to person, place, and time. An electronic signature was used to authenticate this note. BETH Hartmann CNP 01/10/2023 10:56 AM documented in this encounter [facility] 01-10-2023 Instructions BETH Hartmann CNP - 01/10/2023 10:40 AM EDT Soak warm soapy water 10 minutes, then place moisturizer and corn pads daily documented in this encounter [facility] 01-10-2023 Telephone encounter Note S: Pt's (Snow) spoke with [facility] nurse regarding possible infection to pt's feet; had same issue in November. B: Onset of symptoms/concern recently returned. A: Snow states pt has recurring problem with sores on bottom of feet. Was seen in November for this and given antibiotics and cream to use. Infection got better but now is having dark spot on heel with white around it. Denies fever, redness or swelling to feet, numbness or tingling. Pt does c/o some mild to mod pain. Able to walk without difficulty. Wants appt for eval. R: Appt scheduled for eval today. Ins verified. Pt to bring photo ID; ins card to visit. Pt to call back if any further ques or concerns. Reason for Disposition Patient wants to be seen Answer Assessment - Initial Assessment Questions 1. ONSET: When did the pain start? Wound infection coming back again - recent 2. LOCATION: Where is the pain located? Both feet 3. PAIN: How bad is the pain? (Scale 1-10; or mild, moderate, severe) - MILD (1-3): doesn't interfere with normal activities. - MODERATE (4-7): interferes with normal activities (e.g., work or school) or awakens from sleep, limping. - SEVERE (8-10): excruciating pain, unable to do any normal activities, unable to walk. Mild to mod 4. WORK OR EXERCISE: Has there been any recent work or exercise that involved this part of the body? No 5. CAUSE: What do you think is causing the foot pain? Wound infection 6. OTHER SYMPTOMS: Do you have any other symptoms? (e.g., leg pain, rash, fever, numbness) No 7. : Is there any chance you are ? When was your last menstrual period? N/A Protocols used: Foot [id number] [facility] 12-28-2022 Telephone encounter Note Prescription Request: Last medication check: 08/02/2022 Last physical exam: 01/28/22 Last completed appointment: 12/01/22 Next scheduled appointment: 01/31/23 Last date of refill on this medication: 12/01/22 [facility] 12-28-2022 Miscellaneous Notes Prescription Request: Last medication check: 08/02/2022 Last physical exam: 01/28/22 Last completed appointment: 12/01/22 Next scheduled appointment: 01/31/23 Last date of refill on this medication: 12/01/[address] encounter [facility] 12-16-2022 History of Presen t illness Narrative Images from the original note were not included. [facility] [address] [place] [address] [facility] [address] Dept: [phone] Dept Loc: [phone] Visit type: Established Patient Reason for Visit: Follow-up, Dementia, and Parkinson's Disease Assessment and Plan 1. Paroxysmal atrial fibrillation (CMS/HCC) ([facility]) [place] [facility] [place] 2. Parkinson's disease ([facility]) 3. Dementia due to Parkinson's disease, unspecified dementia severity, unspecified whether behavioral, psychotic, or mood disturbance or anxiety ([facility]) 4. Restless legs syndrome Subjective HPI: He feels that he did trip and fall in the garage but his does not recall that. He feels that the tremor. He complains of fatigue. He reports that he has to eat slowly because he eats small bites to prevent chocking. He reports constipation or diarrhea off and on. He is unsteady when getting out of chairs. He and his family feel that his memory loss is NO worse. He denies hallucinations off and on. People or farm machinery that are not really there. He had a pain management procedure yesterday and Dr. Roque told him he had a-fib. REVIEW OF SYSTEMS: Review of Systems Constitutional: Negative for appetite change, chills, diaphoresis, fever and unexpected weight change. HENT: Negative for dental problem and mouth sores. Eyes: Negative for discharge and itching. Respiratory: Negative for chest tightness. Cardiovascular: Negative for chest pain and leg swelling. Gastrointestinal: Negative for rectal pain and vomiting. Endocrine: Negative for polydipsia, polyphagia and polyuria. Genitourinary: Negative for decreased urine volume, flank pain and genital sores. Musculoskeletal: Negative for arthralgias. Skin: Negative for color change. Allergic/Immunologic: Negative for food allergies and immunocompromised state. Neurological: Positive for tremors and weakness. Memory loss Hematological: Negative for adenopathy. Does not bruise/bleed easily. Psychiatric/Behavioral: Positive for hallucinations. Negative for agitation, behavioral problems, decreased concentration, sleep disturbance and suicidal ideas. Allergies Allergen Reactions Lidocaine Other reaction(s): Angioedema, U Peppermint Oil Other reaction(s): Angioedema, U Phenylephrine Other reaction(s): Angioedema, U Current Outpatient Medications: acetaminophen (Tylenol) 500 MG tablet, Take by mouth., Disp: , Rfl: ascorbid acid ER (Vitamin C) 1000 MG ER tablet, Take by mouth., Disp: , Rfl: aspirin 81 MG EC tablet, Take 81 mg by mouth in the morning., Disp: , Rfl: atenolol (Tenormin) 50 MG tablet, take 1 tablet by mouth every morning and take 1/2 tablet by mouth every evening, Disp: 135 tablet, Rfl: 1 Calcium Carb-Cholecalciferol 1000-800 MG-UNIT tablet, Take by mouth., Disp: , Rfl: carbidopa-levodopa CR (Sinemet CR) 50-200 MG ER tablet, Take 1 tablet by mouth in the morning and 1 tablet at noon and 1 tablet in the evening and 1 tablet before bedtime. 5 AM, 10 AM, 3 PM, and 10 PM.., Disp: 360 tablet, Rfl: 3 dilTIAZem ER (Tiazac) 120 MG 24 hr capsule, Take 1 capsule by mouth in the morning., Disp: , Rfl: dorzolamide-timolol (Cosopt) 22.3-6.8 MG/ML ophthalmic solution, 1 drop., Disp: , Rfl: Elastic Bandages & Supports (Medical Compression Stockings) [facility] [place], DIRECTED, Disp: , Rfl: latanoprost (Xalatan) 0.005 % ophthalmic solution, instill 1 drop into right eye once daily, Disp: , Rfl: mupirocin (Bactroban) 2 % ointment, Apply topically three times daily., Disp: 15 g, Rfl: 0 potassium chloride CR (Klor-Con M20) 20 MEQ ER tablet, Take 1 tablet (20 mEq) by mouth daily., Disp: 90 tablet, Rfl: 1 prednisoLONE acetate (Pred-Forte) 1 % ophthalmic suspension, instill 1 drop into left eye twice a day, Disp: , Rfl: tamsulosin (Flomax) 0.4 MG 24 hr capsule, Take 1 capsule (0.4 mg) by mouth daily., Disp: 90 capsule, Rfl: 0 torsemide (Demadex) 20 MG tablet, Take 1 tablet (20 mg) by mouth daily., Disp: 30 tablet, Rfl: 0 Past Medical History: Diagnosis Date A-fib (CMS/HCC) (HCC) Actinic keratosis ALFRED (acute kidney injury) (CMS/HCC) (HCC) Atrial fibrillation (CMS/HCC) (HCC) Cardiomyopathy (HCC) Cataract both eyes Cellulitis ZIEGLER (dyspnea on exertion) Hyperlipidemia Hypertension Lower extremity edema Mitral valve insufficiency Non-pressure chronic ulcer of left calf, unspecified ulcer stage (HCC) Parkinson's disease (HCC) Prostate CA (HCC) Prostate cancer (HCC) Severe sepsis (HCC) Shingles 05/2015 Umbilical hernia Urinary retention UTI (urinary tract infection) Social History Tobacco Use Smoking status: Never Smokeless tobacco: Never Substance Use Topics Alcohol use: No Past Surgical History: Procedure Laterality Date BLADDER SURGERY 01/2019 COLONOSCOPY 06/2006 polyp removed EXTREMITY SURGERY Left 09/2021 L leg injury for hematoma EYE SURGERY metal removed HERNIA REPAIR Family History Problem Relation Name Age of Onset High Blood Pressure Mother High Blood Pressure Father Heart disease Mother Cancer Father colon Objective Vitals: BP 139/83 (BP Location: Right arm, Patient Position: Sitting, BP Cuff Size: Adult) Pulse 85 Ht 5' 5.5 (1.664 m) Wt 207 lb 3.2 oz (94 kg) BMI 33.96 kg/m General Appearance: Patient is in no apparent distress. Head is normocephalic, atraumatic. Wearing neck support brace Cardiovascular: Irregular rate and rhythm. No heart murmurs. No carotid bruit Neurologic: Mentation: Alert and oriented x 3 to person, place and time. Speech and Language: Speech and language normal Concentration and Attention: Concentration normal Memory: Memory 3/3 immed, 3/3 short Fund of Knowledge: Fund of knowledge normal Cranial Nerves: II, III, IV, V, , VII, VIII, IX, X, XI, XII examined and were intact. Motor: Strength: Strength 5 out of 5 with normal tone Alternating Movements: Normal Cogwheel Rigidity: Slight bilaterally Tone: Tone is normal Tremor / Involuntary Movements: Bilateral resting. Deep Tendon Reflexes: 1 out of 4 symmetrical in all four limbs. Coordination: Normal coordination upper and lower extremities Gait and Station: Station is normal. Gait is abnormal. Stooped shuffles with walker. Data Reviewed and Summarized DIAGNOSTIC TESTING CBC: No results found for: WBC, RBC, HGB, HCT, MCV, MCH, MCHC, RDW, PLT, MPV CMP: Lab Results Component Value Date NA 140 01/28/2022 K 4.3 01/28/2022 CL 106 01/28/2022 CO2 27 01/28/2022 BUN 16 01/28/2022 CREATININE 1.01 01/28/2022 GLUCOSE 97 01/28/2022 PROT 6.7 01/28/2022 CALCIUM 8.8 01/28/2022 BILITOT 0.7 01/28/2022 ALKPHOS 95 01/28/2022 AST 24 01/28/2022 BMP: Lab Results Component Value Date NA 140 01/28/2022 K 4.3 01/28/2022 CL 106 01/28/2022 CO2 27 01/28/2022 BUN 16 01/28/2022 CREATININE 1.01 01/28/2022 CALCIUM 8.8 01/28/2022 GLUCOSE 97 01/28/2022 PT/INR: No results found for: PROTIME, INR PTT: No results found for: APTT, PTT[APTT} FLP: Lab Results Component Value Date TRIG 195 (A) 01/28/2022 HDL 38 (L) 01/28/2022 TSH: No results found for: TSH VITAMIN B12: No results found for: [id number] No results found for: PHENYTOIN, PHENOBARB, VALPROATE, CBMZ No components found for: TOPIRA @RESULTINGLABINFO@ No results found for: LEVETIRACETA, FERRITIN, CRP, LOREE, ANCA No results found for: GUNNAR, IMMUNOGLOBUL, OLIGOBANDS No results found for: [id number], HEPCAB No results found for: CRP, ANATITER, ANCA, ANCA FERRITIN: No results found for: FERRITIN ---- XR foot 3+ views right Narrative: [facility]LS[facility] 1945 [id number] Exam Date/Time: 11/04/2022 12:57 Procedure: XR FOOT 3+ VIEWS RIGHT Ordering Provider: COELLO DARRELL Reason For Exam: wound RIGHT FOOT THREE VIEWS CLINICAL INDICATION: wound TECHNIQUE: Three views of the right foot. COMPARISON: None FINDINGS: Small plantar spur. No acute bone destruction or acute fracture seen. Variable changes of osteoarthrosis at the interphalangeal joints. No erosive changes. Moderate osteoarthrosis at first MTP joint. Impression: 1. Degenerative changes. No acute bone destruction seen. Report Dictated on Electronically Signed By: Alex Orta Electronically Signed Date/Time: 11/05/2022 10:31 PM EDT IMPRESSION and PLAN: Diagnosis Plan 1. Paroxysmal atrial fibrillation (CMS/HCC) [place] [place] 2. Parkinson's disease ([facility]) 3. Dementia due to Parkinson's disease, unspecified dementia severity, unspecified whether behavioral, psychotic, or mood disturbance or anxiety ([facility]) 4. Restless legs syndrome His history and today's exam are concerning for this. Will get cardiology involved. Prior history of A-FIB. Continue the QID Sinemet. Will try QID pramipexole as well. Stable will follow. Continue pramipexole. No problem-specific Assessment & Plan notes found for this encounter. KAREN BOSS MD I spent 40 minutes caring for this patient today, reviewing labs, records, seeing the patient, documenting in the record and arranging for studies. @SIGNATURE@ documented in this encounter [facility] 12-01-2022 Evaluation + Plan note Associated Problem(s): Major depressive disorder, single episode, in partial remission (HCC) Remission, currently on no medications. [facility] 12-01-2022 Evaluation + Plan note Associated Problem(s): Dependent edema We will have him stop his Lasix and begin torsemide [address] [facility] 12-01-2022 Evaluation + Plan note Associated Problem(s): Open wound of right great toe Wound is no longer open this is well-healed small callus was removed. [facility] 12-01-2022 Miscellaneous Notes Associated Problem(s): Major depressive disorder, single episode, in partial remission (HCC) Remission, currently on no medications. Associated Problem(s): Dependent edema We will have him stop his Lasix and begin torsemide 20 mg daily Associated Problem(s): Open wound of right great toe Wound is no longer open this is well-healed small callus was removed. 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 12-01-2022 Evaluation + Plan note Associated Problem(s): Recurrent UTI Urinalysis is negative [facility] 12-01-2022 Evaluation + Plan note Associated Problem(s): Chronic kidney disease, stage 3a (HCC) Mariely Flomax [facility] 12-01-2022 Evaluation + Plan note Associated Problem(s): BPH with urinary obstruction Recheck UA which is clear, start Flomax 0.[address] [facility] 12-01-2022 Evaluation + Plan note Associated Problem(s): Parkinson's disease (HCC) Stable, continue carbidopa levodopa at current dosing [facility] 12-01-2022 History of Presen t illness Narrative Patient verified by last name and date of . Patient wants a automotive service management teacher in the room during during the visit. no Food Production Manager laith Adamson in room during visit Images from the original note were not included. 12/01/2022 Karen Carlson (: 1945) is a 77 y.o. male , Established patient, here for evaluation of the following chief complaint(s): Wound Check (B/L feet Snow says they seem to be healing ) ASSESSMENT/PLAN: 1. Open wound of right great toe, initial encounter Assessment & Plan: Wound is no longer open this is well-healed small callus was removed. 2. BPH with urinary obstruction Assessment & Plan: Recheck UA which is clear, start Flomax 0.4 mg daily 3. Dependent edema Assessment & Plan: We will have him stop his Lasix and begin torsemide 20 mg daily 4. Recurrent UTI Assessment & Plan: Urinalysis is negative Orders: - POCT urinalysis dipstick manually resulted 5. Major depressive disorder, single episode, in partial remission ([facility]) Assessment & Plan: Remission, currently on no medications. 6. Chronic kidney disease, stage 3a ([facility]) Assessment & Plan: Stable, Flomax 7. Parkinson's disease ([facility]) Assessment & Plan: Stable, continue carbidopa levodopa at current dosing 8. Non-pressure chronic ulcer of other part of left lower leg limited to breakdown of skin ([facility]) Assessment & Plan: Well-healed wounds on both the right and left foot Follow up in about 3 months (around 03/03/2023). SUBJECTIVE/OBJECTIVE: EAN Douglas comes in today for 2-week follow-up on the wounds on his feet, these are healing very nicely and he has no open areas at this time. He continues to have edema and is wondering about different water pill may be that Lasix is not working well enough uses some days he produces a lot of urine other days not much at all. He is also concerned that he may not be emptying his bladder completely he is wondering about maybe going back on a medication for that he had been on Flomax in the past. He would like to have his urine rechecked we recently treated him for a UTI with Cipro and he did well. His depression seems to be partial remission, and his chronic kidney disease seems to be stable and is Parkinson's is stable at this time. Review of Systems Constitutional: Negative for chills and fever. HENT: Negative for congestion, ear pain, rhinorrhea and sinus pressure. Respiratory: Negative for cough and shortness of breath. Cardiovascular: Positive for leg swelling. Negative for chest pain and palpitations. Gastrointestinal: Negative for abdominal pain, constipation and diarrhea. Genitourinary: Negative for dysuria, frequency and urgency. Neurological: Negative for weakness and numbness. Vitals: 12/01/22 0914 12/01/22 0959 BP: (!) 143/100 139/87 Pulse: 94 93 SpO2: 95% Weight: 202 lb 6.4 oz (91.8 kg) Height: 5' 8 (1.727 m) Physical Exam Vitals and nursing note reviewed. Constitutional: General: He is not in acute distress. Appearance: Normal appearance. HENT: Head: Normocephalic. Mouth/Throat: Mouth: Mucous membranes are moist. Pharynx: Oropharynx is clear. Eyes: Extraocular Movements: Extraocular movements intact. Pupils: Pupils are equal, round, and reactive to light. Cardiovascular: Rate and Rhythm: Normal rate and regular rhythm. Heart sounds: Normal heart sounds. Pulmonary: Effort: Pulmonary effort is normal. Breath sounds: Normal breath sounds. Abdominal: General: Bowel sounds are normal. Palpations: Abdomen is soft. Musculoskeletal: Cervical back: Neck supple. Right lower le+ Edema present. Left lower le+ Edema present. Lymphadenopathy: Cervical: No cervical adenopathy. Skin: Comments: Wounds on feet are well-healed he has just a very small calluses on the right great toe and the left foot. Neurological: Mental Status: He is alert. Psychiatric: Mood and Affect: Mood normal. An electronic signature was used to authenticate this note. Masoud Coello MD 12/01/2022 1:04 PM documented in this encounter [facility] 11-15-2022 Evaluation + Plan note Associated Problem(s): Acute cystitis with hematuria Urine + blood and leuks, symptomatic. Will start antibiotic therapy. [facility] 11-15-2022 Miscellaneous Notes Associated Problem(s): Acute cystitis with hematuria Urine + blood and leuks, symptomatic. Will start antibiotic therapy. documented in this encounter [facility] 11-15-2022 History of Presen t illness Narrative Images from the original note were not included. 11/15/2022 Karen Carlson (: 1945) is a 77 y.o. male , Established patient, here for evaluation of the following chief complaint(s): UTI (Burning with urination, going more often and not voiding much) ASSESSMENT/PLAN: 1. Acute cystitis with hematuria Assessment & Plan: Urine + blood and leuks, symptomatic. Will start antibiotic therapy. 2. Urinary tract infection symptoms - POCT urinalysis dipstick manually resulted - Urine culture - ciprofloxacin (Cipro) 500 MG tablet; Take 1 tablet (500 mg) by mouth 2 times daily for 7 days., Starting Tue11/15/2022, Until Tue11/22/2022, Normal Follow up for as directed pending test results. SUBJECTIVE/OBJECTIVE: HPI - Karen Carlson (: 1945) is a 77 y.o. male , Established patient, here for the evaluation of the following chief complaint(s): UTI (Burning with urination, going more often and not voiding much) No fever. Chilled last night. No appetite change. Dysuria, and not voiding much. Increased frequency. Last UTI in 07/2022. Currently finishing doxycycline for possible wound infection of the foot. Culture did come back negative. Reports healing well. No issues. Prior to Admission medications Medication Sig Start Date End Date Taking? Authorizing Provider acetaminophen (Tylenol) 500 MG tablet Take by mouth. 11/10/21 Yes Historical Provider, ascorbid acid ER (Vitamin C) 1000 MG ER tablet Take by mouth. Yes Historical Provider, aspirin 81 MG EC tablet Take 81 mg by mouth in the morning. Yes Historical Provider, atenolol (Tenormin) 50 MG tablet take 1 tablet by mouth every morning and take 1/2 tablet by mouth every evening 08/02/22 Yes Carmina Nava APRN - ARSLAN Calcium Carb-Cholecalciferol 1000-800 MG-UNIT tablet Take by mouth. Yes Historical Provider, carbidopa-levodopa CR (Sinemet CR) 50-200 MG ER tablet Take 1 tablet by mouth in the morning and 1 tablet at noon and 1 tablet in the evening and 1 tablet before bedtime. 5 AM, 10 AM, 3 PM, and 10 PM.. 09/30/22 12/29/22 Yes Karen Boss MD dilTIAZem ER (Tiazac) 120 MG 24 hr capsule Take 1 capsule by mouth in the morning. 02/12/22 Yes Historical Provider, dorzolamide-timolol (Cosopt) 22.3-6.8 MG/ML ophthalmic solution 1 drop. 10/05/19 Yes Historical Provider, Elastic Bandages & Supports (Medical Compression Stockings) misc DIRECTED 12/25/21 Yes Historical Provider, furosemide (Lasix) 40 MG tablet Take 40-80 mg by mouth. 10/15/19 Yes Historical Provider, latanoprost (Xalatan) 0.005 % ophthalmic solution instill 1 drop into right eye once daily 06/19/21 Yes Historical Provider, mupirocin (Bactroban) 2 % ointment Apply topically three times daily. 11/04/22 Yes Masoud Coello MD potassium chloride CR (Klor-Con M20) 20 MEQ ER tablet Take 1 tablet (20 mEq) by mouth daily. 09/08/22 Yes Masoud Coello MD prednisoLONE acetate (Pred-Forte) 1 % ophthalmic suspension instill 1 drop into left eye twice a day 10/08/20 Yes Historical Provider, doxycycline (Vibra-Tabs) 100 MG tablet Take 1 tablet (100 mg) by mouth 2 times daily for 10 days. Take with a full glass of water and do not lie down for at least 30 minutes after. 11/04/22 11/14/22 Masoud Coello MD Health Maintenance Due Topic Date Due Hepatitis B Vaccines (1 of 3 - 3-dose series) Never done COVID-19 Vaccine (1) Never done Depresssion Monitoring Never done Hepatitis C Screening Never done DTaP/Tdap/Td Vaccines (1 - Tdap) Never done Zoster Vaccines (1 of 2) Never done Review of Systems Constitutional: Positive for chills. Negative for fatigue and fever. Respiratory: Negative. Cardiovascular: Negative. Genitourinary: Positive for difficulty urinating, dysuria, frequency and urgency. Negative for flank pain and hematuria. Vitals: 11/15/22 1344 BP: 138/88 Pulse: 72 Temp: 36 C (96.8 F) TempSrc: Temporal SpO2: 97% Weight: 206 lb (93.4 kg) Height: 5' 5.5 (1.664 m) Physical Exam Constitutional: General: He is not in acute distress. Appearance: Normal appearance. He is not ill-appearing. HENT: Head: Normocephalic and atraumatic. Cardiovascular: Rate and Rhythm: Normal rate and regular rhythm. Pulmonary: Effort: Pulmonary effort is normal. Breath sounds: Normal breath sounds. Abdominal: Tenderness: There is no right CVA tenderness or left CVA tenderness. Skin: General: Skin is warm and dry. Neurological: Mental Status: He is alert and oriented to person, place, and time. An electronic signature was used to authenticate this note. BETH Hartmann CNP 11/15/2022 1:53 PM documented in this encounter [facility] 11-15-2022 Instructions BETH Hartmann CNP - 11/15/2022 1:40 PM EDT Stop doxycycline. Start ciprofloxacin for urinary tract infection. documented in this encounter [facility] 11-09-2022 Evaluation + Plan note Associated Problem(s): Open wound of right great toe Dressing changes and corn pad to keep pressure off the tip of the toe [facility] 11-09-2022 Evaluation + Plan note Associated Problem(s): Wound of left foot Dressing changes and corn pads to keep the pressure off the wound [facility] 11-09-2022 Miscellaneous Notes Associated Problem(s): Open wound of right great toe Dressing changes and corn pad to keep pressure off the tip of the toe Associated Problem(s): Wound of left foot Dressing changes and corn pads to keep the pressure off the wound Associated Problem(s): Penetrating wound of right foot Healing wound of foot, will have them continue to do dressing changes documented in this encounter [facility] 11-09-2022 Evaluation + Plan note Associated Problem(s): Penetrating wound of right foot Healing wound of foot, will have them continue to do dressing changes [facility] 11-09-2022 History of Presen t illness Narrative Patient verified by last name and date of . Patient wants a automotive service management teacher in the room during during the visit. no Food Production Manager laith Snow in room during visit Images from the original note were not included. 11/09/2022 Karen Carlson (: 1945) is a 77 y.o. male , Established patient, here for evaluation of the following chief complaint(s): Wound Check (5 day follow up//B/l feet) ASSESSMENT/PLAN: 1. Penetrating wound of right foot, subsequent encounter Assessment & Plan: Healing wound of foot, will have them continue to do dressing changes 2. Wound of left foot Assessment & Plan: Dressing changes and corn pads to keep the pressure off the wound 3. Open wound of right great toe, initial encounter Assessment & Plan: Dressing changes and corn pad to keep pressure off the tip of the toe Follow up in about 2 weeks (around 11/23/2022). SUBJECTIVE/OBJECTIVE: EAN Misael comes in today for follow-up on the wounds on his feet, he had a large callus on his right foot that we debrided and he had a penetrating wound that had pus from it but the cultures were negative and the x-ray was negative for any bony involvement of infection. He did have arthritis. On that same foot he has a callus on the tip of his toe that now has become more irritated and on his left foot he had a blister that opened and he now has an area on the bottom of his foot that looks like it is a small 8 or 9 mm open wound. Review of Systems Skin: Positive for color change and wound. Neurological: Negative for weakness and numbness. Vitals: 11/09/22 0950 BP: 129/85 Pulse: 78 Weight: 204 lb 9.6 oz (92.8 kg) Height: 5' 8 (1.727 m) Physical Exam Vitals and nursing note reviewed. Constitutional: General: He is not in acute distress. Appearance: Normal appearance. Musculoskeletal: Comments: Right foot with a healing wound on the ball of his foot, we did debride some of the callus that had reformed and there was no further wound. This was completely healed The right great toe had a callus on the tip that we debrided we get some bleeding but no pus. Left foot with a small 9 mm open wound on the ball of the foot where the blister was extending to. Neurological: Mental Status: He is alert. An electronic signature was used to authenticate this note. Masoud Coello MD 11/09/2022 11:42 AM documented in this encounter [facility] 11-04-2022 Evaluation + Plan note Associated Problem(s): Unspecified open wound, left foot, initial encounter Superficial wound under blister, this is a clean base and will have Bactroban applied twice a day with a dressing change. [facility] 11-04-2022 Miscellaneous Notes Associated Problem(s): Unspecified open wound, left foot, initial encounter Superficial wound under blister, this is a clean base and will have Bactroban applied twice a day with a dressing change. Associated Problem(s): Penetrating foot wound, right, initial encounter The callus was debrided and a small drop of pus was expressed, culture was obtained after removing the callus there was a penetrating wound to we will get a x-ray to make sure there is no infection in the bone and start him on antibiotics doxycycline 100 mg twice a day for 10 days. Bactroban ointment to be applied twice a day with dressing changes and follow-up in 5 days documented in this encounter [facility] 11-04-2022 Miscellaneous Notes Associated Problem(s): Unspecified open wound, left foot, initial encounter Superficial wound under blister, this is a clean base and will have Bactroban applied twice a day with a dressing change. Associated Problem(s): Penetrating foot wound, right, initial encounter The callus was debrided and a small drop of pus was expressed, culture was obtained after removing the callus there was a penetrating wound to we will get a x-ray to make sure there is no infection in the bone and start him on antibiotics doxycycline 100 mg twice a day for 10 days. Bactroban ointment to be applied twice a day with dressing changes and follow-up in 5 days Addended by: MASOUD COELLO on: 11/05/2022 11:02 AM Modules accepted: Level of Service documented in this encounter [facility] 11-04-2022 Evaluation + Plan note Associated Problem(s): Penetrating foot wound, right, initial encounter The callus was debrided and a small drop of pus was expressed, culture was obtained after removing the callus there was a penetrating wound to we will get a x-ray to make sure there is no infection in the bone and start him on antibiotics doxycycline 100 mg twice a day for 10 days. Bactroban ointment to be applied twice a day with dressing changes and follow-up in [address] [facility] 11-04-2022 History of Presen t illness Narrative Patient verified by last name and date of . Patient wants a automotive service management teacher in the room during during the visit. no Food Production Manager na in room during visit Images from the original note were not included. 11/04/2022 Karen Carlson (: 1945) is a 77 y.o. male , Established patient, here for evaluation of the following chief complaint(s): Blister (On feet ) ASSESSMENT/PLAN: 1. Penetrating foot wound, right, initial encounter Assessment & Plan: The callus was debrided and a small drop of pus was expressed, culture was obtained after removing the callus there was a penetrating wound to we will get a x-ray to make sure there is no infection in the bone and start him on antibiotics doxycycline 100 mg twice a day for 10 days. Bactroban ointment to be applied twice a day with dressing changes and follow-up in 5 days Orders: - XR foot 3+ views right - Aerobic and Anaerobic Culture with Stain 2. Unspecified open wound, left foot, initial encounter Assessment & Plan: Superficial wound under blister, this is a clean base and will have Bactroban applied twice a day with a dressing change. Follow up in about 5 days (around 11/09/2022). SUBJECTIVE/OBJECTIVE: HPI -Julio comes in today complaining that he has a blister on his left foot and he has something going on on his right foot and the tip of his right toe and he is having swelling in his feet and ankles and he has taken his water pill occasionally but does not take it every day. He says the wounds on his feet do not really hurt but is not sure how he got them the one on the bottom of his right foot is a callus and will need debridement so we do not have infection or skin breakdown under the callus. Review of Systems Skin: Positive for color change and wound. Vitals: 11/04/22 1049 11/04/22 1139 BP: (!) 140/87 135/75 Pulse: 88 86 Weight: 202 lb 12.8 oz (92 kg) Height: 5' 5.5 (1.664 m) Physical Exam Vitals and nursing note reviewed. Constitutional: General: He is not in acute distress. Appearance: Normal appearance. Musculoskeletal: Right lower leg: Edema present. Left lower leg: Edema present. Skin: Comments: Left foot with a blister that has opened this was unroofed below Neurological: Mental Status: He is alert. An electronic signature was used to authenticate this note. Masoud Coello MD 11/04/2022 12:30 PM documented in this encounter [facility] 11-04-2022 History of Presen t illness Narrative Patient verified by last name and date of . Patient wants a automotive service management teacher in the room during during the visit. no Food Production Manager na in room during visit Images from the original note were not included. 11/04/2022 Karen Carlson (: 1945) is a 77 y.o. male , Established patient, here for evaluation of the following chief complaint(s): Blister (On feet ) ASSESSMENT/PLAN: 1. Penetrating foot wound, right, initial encounter Assessment & Plan: The callus was debrided and a small drop of pus was expressed, culture was obtained after removing the callus there was a penetrating wound to we will get a x-ray to make sure there is no infection in the bone and start him on antibiotics doxycycline 100 mg twice a day for 10 days. Bactroban ointment to be applied twice a day with dressing changes and follow-up in 5 days Orders: - XR foot 3+ views right - Aerobic and Anaerobic Culture with Stain 2. Unspecified open wound, left foot, initial encounter Assessment & Plan: Superficial wound under blister, this is a clean base and will have Bactroban applied twice a day with a dressing change. Follow up in about 5 days (around 11/09/2022). SUBJECTIVE/OBJECTIVE: HPI Misael comes in today complaining that he has a blister on his left foot and he has something going on on his right foot and the tip of his right toe and he is having swelling in his feet and ankles and he has taken his water pill occasionally but does not take it every day. He says the wounds on his feet do not really hurt but is not sure how he got them the one on the bottom of his right foot is a callus and will need debridement so we do not have infection or skin breakdown under the callus. Review of Systems Skin: Positive for color change and wound. Vitals: 11/04/22 1049 11/04/22 1139 BP: (!) 140/87 135/75 Pulse: 88 86 Weight: 202 lb 12.8 oz (92 kg) Height: 5' 5.5 (1.664 m) Physical Exam Vitals and nursing note reviewed. Constitutional: General: He is not in acute distress. Appearance: Normal appearance. Musculoskeletal: Right lower leg: Edema present. Left lower leg: Edema present. Skin: Comments: Left foot with a blister that has opened this was unroofed below Neurological: Mental Status: He is alert. An electronic signature was used to authenticate this note. Masoud Coello MD 11/05/2022 11:01 AM documented in this encounter [facility] 11-04-2022 Note Addended by: MASOUD COELLO on: 11/05/2022 11:02 AM Modules accepted: Level of Service [facility] 09-30-2022 History of Presen t illness Narrative Images from the original note were not included. [facility] [address] [facility] [address] [facility] [address] Dept: [phone] Dept Loc: [phone] Visit type: Established Patient Reason for Visit: Follow-up and Parkinson's Disease Assessment and Plan 1. Parkinson's disease (HCC) - carbidopa-levodopa CR (Sinemet CR) 50-200 MG ER tablet; Take 1 tablet by mouth in the morning and 1 tablet at noon and 1 tablet in the evening and 1 tablet before bedtime. 5 AM, 10 AM, 3 PM, and 10 PM.., Starting [place] 09/30/2022, Until Tue12/29/2022, Normal 2. Dementia due to Parkinson's disease, unspecified dementia severity, unspecified whether behavioral, psychotic, or mood disturbance or anxiety (HCC) Subjective HPI: He reports that he had a controlled fall after turning while painting a tractor. His feels that the memory loss is stable. He reports he has some fleeting visual hallucinations, but it is more often upon awakening The restless legs is nearly completely controlled with the pramipexole. He reports that he is having neck pain. He reports that Dr. Herrera perfomred a procedure on his neck. It worked for 7days. He is to get RFA from Dr. Herrera. He was told to see an orthopedic surgeon. REVIEW OF SYSTEMS: Review of Systems Constitutional: Negative for appetite change, chills, diaphoresis, fever and unexpected weight change. HENT: Negative for dental problem and mouth sores. Eyes: Negative for discharge and itching. Respiratory: Negative for chest tightness. Cardiovascular: Negative for chest pain and leg swelling. Gastrointestinal: Negative for rectal pain and vomiting. Endocrine: Negative for polydipsia, polyphagia and polyuria. Genitourinary: Negative for decreased urine volume, flank pain and genital sores. Musculoskeletal: Negative for arthralgias. Skin: Negative for color change. Allergic/Immunologic: Negative for food allergies and immunocompromised state. Neurological: Positive for tremors. Memory loss Hematological: Negative for adenopathy. Does not bruise/bleed easily. Psychiatric/Behavioral: Negative for agitation, behavioral problems, decreased concentration, sleep disturbance and suicidal ideas. Allergies Allergen Reactions Lidocaine Other reaction(s): Angioedema, U Peppermint Oil Other reaction(s): Angioedema, U Phenylephrine Other reaction(s): Angioedema, U Current Outpatient Medications: acetaminophen (Tylenol) 500 MG tablet, Take by mouth., Disp: , Rfl: ascorbid acid ER (Vitamin C) 1000 MG ER tablet, Take by mouth., Disp: , Rfl: aspirin 81 MG EC tablet, Take 81 mg by mouth in the morning., Disp: , Rfl: atenolol (Tenormin) 50 MG tablet, take 1 tablet by mouth every morning and take 1/2 tablet by mouth every evening, Disp: 135 tablet, Rfl: 1 Calcium Carb-Cholecalciferol 1000-800 MG-UNIT tablet, Take by mouth., Disp: , Rfl: dilTIAZem ER (Tiazac) 120 MG 24 hr capsule, Take 1 capsule by mouth in the morning., Disp: , Rfl: dorzolamide-timolol (Cosopt) 22.3-6.8 MG/ML ophthalmic solution, 1 drop., Disp: , Rfl: Elastic Bandages & Supports (Medical Compression Stockings) [facility] [place], DIRECTED, Disp: , Rfl: furosemide (Lasix) 40 MG tablet, Take 40-80 mg by mouth., Disp: , Rfl: latanoprost (Xalatan) 0.005 % ophthalmic solution, instill 1 drop into right eye once daily, Disp: , Rfl: potassium chloride CR (Klor-Con M20) 20 MEQ ER tablet, Take 1 tablet (20 mEq) by mouth daily., Disp: 90 tablet, Rfl: 1 prednisoLONE acetate (Pred-Forte) 1 % ophthalmic suspension, instill 1 drop into left eye twice a day, Disp: , Rfl: carbidopa-levodopa CR (Sinemet CR) 50-200 MG ER tablet, Take 1 tablet by mouth in the morning and 1 tablet at noon and 1 tablet in the evening and 1 tablet before bedtime. 5 AM, 10 AM, 3 PM, and 10 PM.., Disp: 360 tablet, Rfl: 3 memantine (Namenda) 10 MG tablet, Take 1 tablet (10 mg) by mouth 2 times daily., Disp: 180 tablet, Rfl: 2 pramipexole (Mirapex) 1.5 MG tablet, Take 1 tablet (1.5 mg) by mouth 3 times daily., Disp: 270 tablet, Rfl: 2 Past Medical History: Diagnosis Date A-fib (CMS/HCC) (HCC) Actinic keratosis ALFRED (acute kidney injury) (CMS/HCC) (HCC) Atrial fibrillation (CMS/HCC) (HCC) Cardiomyopathy (HCC) Cataract both eyes Cellulitis ZIEGLER (dyspnea on exertion) Hyperlipidemia Hypertension Lower extremity edema Mitral valve insufficiency Non-pressure chronic ulcer of left calf, unspecified ulcer stage (HCC) Parkinson's disease (HCC) Prostate CA (CMS/HCC) (HCC) Prostate cancer (CMS/HCC) (HCC) Severe sepsis (HCC) Shingles 05/2015 Umbilical hernia Urinary retention UTI (urinary tract infection) Social History Tobacco Use Smoking status: Never Smokeless tobacco: Never Substance Use Topics Alcohol use: No Past Surgical History: Procedure Laterality Date BLADDER SURGERY 01/2019 COLONOSCOPY 06/2006 polyp removed EXTREMITY SURGERY Left 09/2021 L leg injury for hematoma EYE SURGERY metal removed HERNIA REPAIR Family History Problem Relation Name Age of Onset High Blood Pressure Mother High Blood Pressure Father Heart disease Mother Cancer Father colon Objective Vitals: BP (!) 144/83 (BP Location: Left arm, Patient Position: Sitting, BP Cuff Size: Adult) Pulse 54 Ht 5' 8 (1.727 m) Wt 214 lb (97.1 kg) BMI 32.54 kg/m General Appearance: Patient is in no apparent distress. Head is normocephalic, atraumatic Cardiovascular: Regular rate and rhythm. No heart murmurs. No carotid bruit Neurologic: Mentation: Alert and oriented x 3 [address], place and time. Speech and Language: Speech and language normal Concentration and Attention: Concentration normal Memory: Memory grossly the same Fund of Knowledge: Fund of knowledge normal Cranial Nerves: II, III, IV, V, , VII, VIII, IX, X, XI, XII examined and were intact. Motor: Strength: Strength 5 out of 5 with normal tone Alternating Movements: Normal Cogwheel Rigidity: None Tone: Tone is normal Tremor / Involuntary Movements: Mild right>left Deep Tendon Reflexes: 1 out of 4 symmetrical in all four limbs. No hyper-reflexia Coordination: Normal coordination upper and lower extremities Gait and Station: Station is abnormal. Gait is abnormal Stooping and shuffling and en bloc. Data Reviewed and Summarized DIAGNOSTIC TESTING CBC: No results found for: WBC, RBC, HGB, HCT, MCV, MCH, MCHC, RDW, PLT, MPV CMP: Lab Results Component Value Date NA 140 01/28/2022 K 4.3 01/28/2022 CL 106 01/28/2022 CO2 27 01/28/2022 BUN 16 01/28/2022 CREATININE 1.01 01/28/2022 GLUCOSE 97 01/28/2022 PROT 6.7 01/28/2022 CALCIUM 8.8 01/28/2022 BILITOT 0.7 01/28/2022 ALKPHOS 95 01/28/2022 AST 24 01/28/2022 BMP: Lab Results Component Value Date NA 140 01/28/2022 K 4.3 01/28/2022 CL 106 01/28/2022 CO2 27 01/28/2022 BUN 16 01/28/2022 CREATININE 1.01 01/28/2022 CALCIUM 8.8 01/28/2022 GLUCOSE 97 01/28/2022 PT/INR: No results found for: PROTIME, INR PTT: No results found for: APTT, PTT[APTT} FLP: Lab Results Component Value Date TRIG 195 (A) 01/28/2022 HDL 38 (L) 01/28/2022 TSH: No results found for: TSH VITAMIN B12: No results found for: EFYFTQHT01 No results found for: PHENYTOIN, PHENOBARB, VALPROATE, CBMZ No components found for: TOPIRA @RESULTINGLABINFO@ No results found for: LEVETIRACETA, FERRITIN, CRP, LOREE, ANCA No results found for: GUNNAR, IMMUNOGLOBUL, OLIGOBANDS No results found for: AZF29GR, HEPCAB No results found for: CRP, ANATITER, ANCA, ANCA FERRITIN: No results found for: FERRITIN ---- XR CERVICAL SPINE W OBLIQUES FLEXION AND EXTENSION [facility]: [id number]iology ACCESSION EXAM DATE/TIME PROCEDURE ORDERING PROVIDER [id number] 04/26/2022 16:02 EDT CR Spine Cervical Comp KAREN BOSS w/ Obliques CPT code 93209 Reason For Exam (CR Spine Cervical Comp w/ Obliques) Cervicalgia Report EXAMINATION: C spine: AP, lateral, odontoid, obliques, flexion and extension. Comparison: None. Reason For Study: Cervicalgia. Findings/Interpretation: 1. No evidence of vertebral compression or fracture. 2. Severe degenerative disc disease at C4-C5, C5-C6 and C6-C7. 3. Diffuse bilateral degenerative facet joint disease. 4. Kyphosis centered at C5-C6. 6. Cervicothoracic levoscoliosis. 7. Osteophytic encroachment into the left C4, C5 and C6 neural foramina. 8. No evidence of spinal instability. Report Dictated on --- Final --- Dictating Physician: MD NICE B NELSON Signed Date and Time: 04/28/2022 9:34 am Signed by: MD NICE B NELSON Transcribed Date and Time: 04/28/2022 9:35 IMPRESSION and PLAN: Diagnosis Plan 1. Parkinson's disease (HCC) carbidopa-levodopa CR (Sinemet CR) 50-200 MG ER tablet 2. Dementia due to Parkinson's disease, unspecified dementia severity, unspecified whether behavioral, psychotic, or mood disturbance or anxiety (HCC) The patient is to increase the carb-levo QID and continue the TID pramipexole. I hope that the stooping and bradykinesia will improve. Continue the namenda for the mild-moderate dementia. No problem-specific Assessment & Plan notes found for this encounter. KAREN BOSS MD I spent 30 minutes caring for this patient today, reviewing labs, records, seeing the patient, documenting in the record and arranging for studies. documented in this encounter [facility] documented in this encounter [facility] Work Phone: Evaluation note* Diagnosis Cervicalgia documented in this encounter [facility] Work Phone: Evaluation note* Diagnosis Parkinson's disease (HCC)- Primary Paralysis agitans Dementia due to Parkinson's disease, unspecified dementia severity, unspecified whether behavioral, psychotic, or mood disturbance or anxiety ([facility]) [facility] Diagnosis Penetrating foot wound, right, initial encounter- Primary Unspecified open wound, left foot, initial encounter [facility] Diagnosis Penetrating foot wound, right, initial encounter [facility]* Diagnosis Penetrating foot wound, right, initial encounter- Primary Unspecified open wound, left foot, initial encounter [facility] Diagnosis Penetrating wound of right foot, subsequent encounter- Primary Wound of left foot Open wound of right great toe, initial encounter [facility]* Diagnosis Acute cystitis with hematuria- Primary Urinary tract infection symptoms [facility]* Diagnosis Open wound of right great toe, initial encounter- Primary BPH with urinary obstruction Hypertrophy of prostate with urinary obstruction and other lower urinary tract symptoms (LUTS) Dependent edema Edema Recurrent UTI Urinary tract infection, site not specified Major depressive disorder, single episode, in partial remission (HCC) Major depressive disorder, single episode, in partial or unspecified remission Chronic kidney disease, stage 3a (HCC) Parkinson's disease (HCC) Paralysis agitans 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) [facility]* Diagnosis Paroxysmal atrial fibrillation (CMS/HCC) (HCC)- Primary Atrial fibrillation Parkinson's disease (HCC) Paralysis agitans Dementia due to Parkinson's disease, unspecified dementia severity, unspecified whether behavioral, psychotic, or mood disturbance or anxiety (HCC) Restless legs syndrome Restless legs syndrome (RLS) [facility] Diagnosis Callus under metatarsal head- Primary Nasal congestion Other diseases of nasal cavity and sinuses [facility]* Diagnosis Medicare annual wellness visit, subsequent- Primary Parkinson's disease (HCC) Paralysis agitans Primary hypertension Unspecified essential hypertension Major depressive disorder, single episode, in partial remission (HCC) Major depressive disorder, single episode, in partial or unspecified remission Screening for diabetes mellitus Screening for ischemic heart disease Other secondary pulmonary hypertension (HCC) Peripheral vascular disease, unspecified (HCC) Peripheral vascular disease, unspecified Morbid (severe) obesity due to excess calories ([facility]) [facility]* Diagnosis Paroxysmal atrial fibrillation (CMS/HCC) (HCC)- Primary Atrial fibrillation Syncope and collapse Parkinson's disease (HCC) Paralysis agitans Dementia due to Parkinson's disease, unspecified dementia severity, unspecified whether behavioral, psychotic, or mood disturbance or anxiety ([facility]) 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 Diagnosis Urinary frequency- Primary Burning with urination Dysuria [facility] Diagnosis Parkinson's disease Paralysis agitans [facility] this [facility] Diagnosis Recurrent UTI- Primary Urinary tract infection, site not specified Sebaceous cyst [facility] this [facility] Diagnosis Recurrent UTI- Primary Urinary tract infection, site not specified Sebaceous cyst [facility] this [facility]* Diagnosis Mild dementia due to Parkinson's disease, unspecified whether behavioral, psychotic, or mood disturbance or anxiety ([facility]) [facility] this [facility]* Diagnosis Parkinson's disease without dyskinesia or fluctuating manifestations- Primary Primary hypertension Unspecified essential hypertension Recurrent UTI Urinary tract infection, site not specified Chronic kidney disease, stage 3a ([facility]) [facility] this [facility] Consultation (Routine) - Pending Review Specialty Diagnoses / Procedures Referred By Contac t Referred To Contact Cardiology Diagnoses Paroxysmal atrial fibrillation (CMS/HCC) (HCC) Procedures TX OFFICE/OUTPATIENT [facility] 60-74 MINUTES Karen Boss MD [address] [facility] [address] [place] [address] Bladimir Sequeira MD [address] [facility] [address] [place] [address] Referral ID Status Reason Start Date Expiration Date Visits Requested Visits Authorized [id number] Pending Review Specialty Services Required 12/16/2022 12/16/[address] Consultation (Routine) - Pending Review Specialty Diagnoses / Procedures Referred By Contac t Referred To Contact Podiatry Diagnoses Callus under metatarsal head Procedures TX OFFICE/OUTPATIENT [facility] 60-74 MINUTES Mildred Jasmine SENIOR SQL SERVER DATABASE DEVELOPER - SHIFT LEADER [address] [facility] [place] [address] Terry Taylor, GAETANO [address] [id number] Referral ID Status Reason Start Date Expiration Date Visits Requested Visits Authorized [id number] Pending Review Specialty Services Required 01/10/2023 01/10/2024 1 1 Electronically signed by Mildred Jasmine SENIOR SQL SERVER DATABASE DEVELOPER - SHIFT LEADER at 01/10/2023 11:22 AM EDT [facility] Consultation (Routine) - Pending Review Specialty Diagnoses / Procedures Referred By Contac t Referred To Contact Neurosurgery Diagnoses 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 Karen Boss MD [address] [facility] [address] [place] [address] Naldo Longoria MD [address] [place] [address] Referral ID Status Reason Start Date Expiration Date Visits Requested Visits Authorized [id number] Pending Review Specialty Services Required 02/18/2023 02/18/2024 1 1 * Imaging (Routine) - Pending Review Specialty Diagnoses / Procedures Referred By Contac t Referred To Contact Radiology Diagnoses 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 Procedures MR cervical spine wo contrast Karen Boss MD [address] [facility] [address] [place] [address] Referral ID Status Reason Start Date Expiration Date V isits Requested Visits Authorized [id number] Pending Review 02/18/2023 08/17/2023 1 1 * Consultation (Urgent) - Pending Review Specialty Diagnoses / Procedures Referred By Contac t Referred To Contact Cardiology Diagnoses Paroxysmal atrial fibrillation (CMS/HCC) (HCC) Syncope and collapse Procedures TX OFFICE/OUTPATIENT [facility] 60-74 MINUTES Karen Boss MD [address] [facility] [address] [place] [address] Jerry Paulosn MD [address] [facility] [place] [address] Referral ID Status Reason Start Date Expiration Date Visits Requested Visits Authorized [id number] Pending Review Specialty Services Required 02/18/2023 02/18/2024 1 1 [facility] Summary Purpose Family History No Family History Records FoundNo Family History Records FoundNo Family History Records FoundNo Family History Records FoundNo Family History Records Found Advance Directives No Advanced Directives Records FoundDocuments on File Type Date Recorded Patient Department Store General Manager Expl anation Advance Directives and Living Will Power of Digital Assistant Documents on File Type Date Recorded Patient Department Store General Manager Expl anation ACP-Advance Directive ACP-Power of Digital Assistant Documents on File Type Date Recorded Patient Department Store General Manager Expl anation Living Will Documentation 11/04/2022 4:09 PM Documents on File Type Date Recorded Patient Department Store General Manager Expl anation Living Will Documentation 11/04/2022 4:09 PM Assessments Diagnosis Fall with injury, initial encounter Right hip pain Pain in joint, pelvic region and thigh Reason for Referral Status Reason Specialty Diagnoses / Procedures Referred By Contact Referred To Contact Pending Review Radiology Diagnoses Dementia without behavioral disturbance, unspecified dementia type (HCC) Procedures MRI Brain WO Contrast Karen Boss MD [address] [place] [address] Specialty Diagnoses / Procedures Referred By Contac t Referred To Contact Diagnoses Mild dementia due to Parkinson's disease, unspecified whether behavioral, psychotic, or mood disturbance or anxiety ([facility]) Masoud Coello MD [address] [place] [id number] Referral ID Status Reason Start Date Expiration Date Visits Re quested Visits Authorized [id number] Closed 1 1 Additional Source Comments (unrecognized sect ion and content) No Status Records FoundNo Status Records FoundNo Status Records FoundNo Status Records FoundNo Status Records Found INFORMATION SOURCE (unrecogn ized section and content) DATE CREATED AUTHOR AUTHOR'S ORGANIZ ATION 04/30/2020 [facility] DATE CREATED AUTHOR AUTHOR'S ORGANIZ ATION 04/30/2022 [facility] DATE CREATED AUTHOR AUTHOR'S ORGANIZ ATION 06/29/2023 [facility] DATE CREATED AUTHOR AUTHOR'S ORGANIZ ATION 08/05/2023 [facility] Care Teams (unrecognized sec tion and content) Automatic Serging Machine Operator Relationship Specialty Start Date End Date Masoud Coello MD [address] [place] [address] PCP - General 05/19/15 Automatic Serging Machine Operator Relationship Specialty Start Date End Date Masoud Coello MD [address] [place] [address] PCP - General 05/19/15 Automatic Serging Machine Operator Relationship Specialty Start Date End Date Masoud Coello MD [address] [facility] [place] [address] PCP - General 05/19/15 Automatic Serging Machine Operator Relationship Specialty Start Date End Date Masoud Coello MD [facility] [place] [address] PCP - General 05/19/15 Automatic Serging Machine Operator Relationship Specialty Start Date End Date Masoud Coello MD [facility] [place] [address] PCP - General 05/19/15 Automatic Serging Machine Operator Relationship Specialty Start Date End Date Masoud Coello [facility] [place] [address] PCP - General 05/19/15 Automatic Serging Machine Operator Relationship Specialty Start Date End Date Masoud Coello [facility] [place] [address] PCP - General 05/19/15 Automatic Serging Machine Operator Relationship Specialty Start Date End Date Masoud Coello MD [facility] [place] [address] PCP - General 05/19/15 Automatic Serging Machine Operator Relationship Specialty Start Date End Date Masoud Coello MD [facility] [place] [address] PCP - General 05/19/15 Automatic Serging Machine Operator Relationship Specialty Start Date End Date Masoud Coello MD [facility] [place] [address] PCP - General 05/19/15 Automatic Serging Machine Operator Relationship Specialty Start Date End Date Masoud Coello MD [address] [place] [address] PCP - General 05/19/15 Automatic Serging Machine Operator Relationship Specialty Start Date End Date Masoud Coello MD [address] [place] [address] PCP - General 05/19/15 Automatic Serging Machine Operator Relationship Specialty Start Date End Date Masoud Coello MD [address] [place] [address] PCP - General 05/19/15 Automatic Serging Machine Operator Relationship Specialty Start Date End Date Masoud Coello MD [address] [place] [address] PCP - General 05/19/15 Automatic Serging Machine Operator Relationship Specialty Start Date End Date Masoud Coello MD [address] [place] [address] PCP - General 05/19/15 Automatic Serging Machine Operator Relationship Specialty Start Date End Date Masoud Coello MD [address] [place] [address] PCP - General 05/19/15 Automatic Serging Machine Operator Relationship Specialty Start Date End Date Masoud Coello MD [address] [facility] [place] [address] PCP - General 05/19/15 Automatic Serging Machine Operator Relationship Specialty Start Date End Date Masoud Coello MD [address] [facility] [place] [address] PCP - General 05/19/15 Automatic Serging Machine Operator Relationship Specialty Start Date End Date Masoud Coello MD [address] [facility] [place] [address] PCP - General 05/19/15 Automatic Serging Machine Operator Relationship Specialty Start Date End Date Masoud Coello [address] [facility] [place] [address] PCP - General Family Medicine 01/22/13 Automatic Serging Machine Operator Relationship Specialty Start Date End Date Masoud Coello MD [address] [facility] [place] [address] PCP - General 05/19/15 Automatic Serging Machine Operator Relationship Specialty Start Date End Date Masoud Coello MD [address] [facility] [place] [address] PCP - General 05/19/15 Automatic Serging Machine Operator Relationship Specialty Start Date End Date Masoud Coello MD [address] [facility] [place] [address] PCP - General 05/19/15 Automatic Serging Machine Operator Relationship Specialty Start Date End Date Masoud Coello MD [address] [facility] [place] [address] PCP - General 05/19/15 Automatic Serging Machine Operator Relationship Specialty Start Date End Date Masoud Coello MD [address] [facility] [place] [address] PCP - General 05/19/15 Reason for Visit (unrecogniz ed section and content) Reason Comments Blister On feet Reason Comments Wound Check 5 day follow upB/l f eet Reason Comments UTI Burning with urinati on, going more often and not voiding much Reason Comments Wound Check B/L feet Snow says t hey seem to be healing Reason Comments Follow-up Dementia Parkinson's Disease Reason Comments Med Refill Reason Onset Date Comments Foot Pain 01/10/2023 Reason Comments Foot Problem Nasal Congestion Reason Onset Date Comments Discuss Medications 01/14/2023 Release of Information 01/14/2023 Reason Comments Medicare Annual Wellness Visit Subsequen t Health Maintenance Shingrix-declinesTDA P-declinesCOVID vaccine-noneHepatitis C screen-declines Blood Work Reason Comments Follow-up Parkinson's Disease Reason Onset Date Comments Med Refill 02/25/2023 Reason Comments New Patient Cervical issues and dropped head Specialty Diagnoses / Procedures Referred By Contac t Referred To Contact Neurosurgery Diagnoses 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 Karen Boss MD [address] [place] [address] Naldo Longoria MD [address] [place] [address] Referral ID Status Reason Start Date Expiration Date V isits Requested Visits Authorized [id number] Closed Specialty Services Required 02/18/2023 02/18/2024 1 1 Reason Comments New Patient Referral from Dr.Smi angeles for watchman Reason Onset Date Comments Orders 05/03/2023 Reason Comments Follow-up Reason Onset Date Comments medical records request 02/15/2023 Reason Onset Date Comments Cough 06/20/2023 Reason Comments Urinary Frequency burning with urinati on x 2 days Reason Onset Date Comments UTI 07/05/2023 Reason Comments Dysuria Went to urgent care on 05/27/23 [facility] on 06/28/23 culture came back and changed atb and finished it yesterday Skin Lesion On back that is asking to be looked at Reason Onset Date Comments Med Refill 07/19/2023 Less than 48 Hrs Left of Rx Reason Comments Parkinson's Disease Need to do [id number] Peripheral Vascular Disease Hypertension Medication Check 6 month Health Maintenance Pt refused- flu vacc ine, rsv vaccine, thyroid ultrasound Source Comments (unrecognize d section and content) In the event this informatio n is protected by the Federal Confidentiality of Alcohol and Drug Abuse Patient Records regulations: The Federal rules restrict any use of the information to criminally investigate or prosecute any alcohol or drug abuse patient.[facility] FOR RECORDS PERTAINING TO PATIENTS WHO ARE OR HAVE BEEN ENROLLED IN A CHEMICAL DEPENDENCY/SUBSTANCEABUSE PROGRAM, SOME INFORMATION MAY BE OMITTED. This clinical summary was aggregated from multiple sources. Caution should be exercised in using it in the provision of clinical care. This summary normalizes information from multiple sources, and as a consequence, information in this document may materially change the coding, format and clinical context of patient data. In addition, data may be omitted in some cases. CLINICAL DECISIONS SHOULD BE BASED ON THE PRIMARY CLINICAL RECORDS. [employer] provides no warranty or guarantee of the accuracy or completeness of information in this document.
--- NOTE | 2023-08-05 16:10 | PCM.HP.STD ---
HPI - General General Date of Admission: 08/05/23 Date of Service: 08/05/23 Chief Complaint: Fever and weakness HPI Narrative KAREN MOYA, is a 78-year-old male history of A-fib, DVT, hypertension, Parkinson's, prostate cancer presented to [facility] 08/05/2023 with dysuria and fever. Has had recent UTIs and started on Bactrim 2 days ago with urine culture still pending. Last night however he got a fever and was feeling generally weak prompting him to come to the ED. In the ED patient with temp of 100.9, blood pressure is 95/50 with heart rate of 80 and patient 94% on room air. UA suggestive of UTI and the lab workup otherwise fairly benign patient was febrile and hypotensive and generally weak so he was given fluids, Rocephin, and hospitalist contacted for admission. Patient evaluated at bedside with family members present. He reports with his Parkinson's he intermittently will have problems with weakness and dizziness and low blood pressure but had been in his usual health until the past couple days when he began having burning on urination and chills at home. Despite being placed on Bactrim 2 days ago he had fevers and chills overnight and continued symptoms given his weakness he was brought to the hospital. Feeling somewhat better after fluids and supportive care in the ED, did take his diltiazem this morning and is already an hour behind taking his Parkinson's medications. Denies any abdominal pain, denies any overt constipation or diarrhea but said he feels like he does need to have a bowel movement, denies any problem emptying his bladder when he needs to do so and only reports the dysuria associated. Intermittently gets a little bit of swelling in his legs but denies anything that is changed. No other acute complaints today. 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 Mitral valve insufficiency Other secondary pulmonary hypertension Parkinsons disease Persistent atrial fibrillation Prostate cancer Home Medications calcium carbonate 600 mg-vitamin D3 12.5 mcg (500 unit) capsule (Calcium 600 with Vitamin D3) 1 cap PO DAILY Vitamin 09/25/20 [History Last Taken 09/09/21] carbidopa ER 50 mg-levodopa 200 mg tablet,extended release 1 tablet PO 4X/DAY parkinsons 09/25/20 [History Last Taken 09/09/21] dorzolamide 22.3 mg-timolol 6.8 mg/mL eye drops 1 - 2 drp ophthalmic (eye) BID glaucoma 09/25/20 [History Last Taken 09/09/21] prednisolone acetate 1 % eye drops,suspension 1 drp LEFT EYE Q12H vision 11/13/20 [History Last Taken 09/09/21] pramipexole 0.5 mg tablet 1 mg PO 4X/DAY 04/28/21 [History Last Taken 09/09/21] ascorbic acid (vitamin C) 500 mg tablet 1,000 mg PO DAILY SUPPLEMENT 09/10/21 [History Last Taken 09/09/21] latanoprost 0.005 % eye drops 1 drp RIGHT EYE QHS 09/10/21 [History Last Taken 09/09/21] memantine 10 mg tablet 10 mg PO BID MEMORY 09/10/21 [History Last Taken 09/09/21] acetaminophen 500 mg tablet 500 - 1,000 mg PO BID PRN Pain 11/10/21 [History Last Taken Unknown] aspirin 81 mg tablet,delayed release 81 mg PO DAILY HEALTH #90 tabs 05/10/22 [Rx Last Taken Unknown] diltiazem HCl 120 mg capsule,24 hr,extended release See Rx Instructions .Route .COMPLEX #90 CAPSULES 02/03/23 [Rx Last Taken Unknown] tamsulosin 0.4 mg capsule 0.4 mg PO DAILY 03/14/23 [History Last Taken Unknown] torsemide 20 mg tablet 20 mg PO .COMPLEX 03/18/23 [History Last Taken Unknown] sulfamethoxazole 800 mg-trimethoprim 160 mg tablet (Bactrim DS) 1 tab PO BID #14 tabs 03/19/23 [Rx Last Taken Unknown] carbidopa 25 mg-levodopa 100 mg tablet 1 tab PO BID 08/05/23 [History Last Taken Unknown] Allergy/AdvReac Type Severity Reaction Status Date / Time lidocaine Allergy Angioedema Verified 08/05/23 12:10 peppermint Allergy Angioedema Verified 08/05/23 12:10 phenylephrine Allergy Angioedema Verified 08/05/23 12:10 doxycycline AdvReac Intermediate SUNBURN Verified 08/05/23 12:10 Family History Brother Atrial fibrillation Surgical History History of cataract extraction History of hernia repair History of incision and drainage (~09/2021) Social History Smoking Status: Never smoker alcohol intake: never substance use type: does not use caffeine: Yes Type: carbonated beverages Number of servings: 1 ROS ROS Narrative General: Has been having fever and chills HENT: Denies headache, denies stuffy nose, denies sore throat 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 Resp: Denies cough, denies shortness of breath Cardiac: Denies chest pain GI: Denies abdominal pain, denies changes in bowel, denies nausea/vomiting : Burning with urination Extremity: Intermittent swelling in legs MSK: Generalized weakness Neuro: Denies any numbness/tingling Heme: Denies any bleeding or bruising Skin: Denies rashes Psychiatric: No complaints voiced Vital Signs Vital Signs Vital Signs: 08/05/23 12:07 08/05/23 13:29 08/05/23 14:46 Temperature 100.9 F H 100.1 F H 100 F H Temperature Source Oral Temporal Oral Pulse Rate 80 52 L 67 Respiratory Rate 18 18 16 Blood Pressure 95/50 L 83/60 L 84/54 L Blood Pressure Mean 65 67 64 Pulse Ox 94 94 93 Oxygen Delivery Method Room Air Room Air Room Air 08/05/23 15:57 Temperature 98.6 F Temperature Source Pulse Rate 65 Respiratory Rate 18 Blood Pressure 86/66 L Blood Pressure Mean 72 Pulse Ox 95 Oxygen Delivery Method Weight Weight: 93.3 kg Body Mass Index (BMI) 32.2 Physical Exam Narrative General: Alert, oriented, no apparent distress HEENT: Atraumatic Eyes: Anicteric, left eye with some crusting Neck: Supple Respiratory: Clear to auscultation bilaterally, normal respiratory effort Cardiovascular: Irregularly irregular GI: Soft, reports feeling a little bit of bloating and discomfort with palpation without rebound, guarding, rigidity, nondistended Extremities: Trace to 1+ lower extremity edema Musculoskeletal: Moving all extremities Neuro: No overt focal neurological deficits Skin: No rashes appreciated Psych: Cooperative Results Lab / Micro Data 08/05/23 12:55 08/05/23 12:21 Labs: Laboratory Results - last 24 hr 08/05/23 12:21: PT 14.5, INR 1.1, APTT 32.6, Sodium 139, Potassium 3.8, Chloride 108 H, Carbon Dioxide 27.0, Anion Gap 4 L, BUN 20 H, Creatinine 1.19, Estim Creat Clear Calc 54.81, Est GFR (MDRD) Af Amer 76, Est GFR (MDRD) Non-Af 63, BUN/Creatinine Ratio 16.8, Glucose 127 H, Calcium 8.8, Total Bilirubin 1.10 H, AST 11 L, ALT 7 L, Alkaline Phosphatase 75, Total Protein 6.5, Albumin 2.7 L, Globulin 3.8, Albumin/Globulin Ratio 0.7 L, Total PSA 10.20 H 08/05/23 12:55: WBC 8.9, RBC 4.73, Hgb 14.0, Hct 43.0, MCV 90.9, MCH 29.6, MCHC 32.6, RDW Std Deviation 54.6 H, RDW Coeff of Manuela 16.3 H, Plt Count 94 L, MPV 10.9, Immature Gran % (Auto) 1.400 H, Neut % (Auto) 91.3 H, Lymph % (Auto) 1.8 L, Kings % (Auto) 5.2, Eos % (Auto) 0.1, Baso % (Auto) 0.2, Absolute Neuts (auto) 8.1 H, Absolute Lymphs (auto) 0.16 L, Nucleated RBC % 0, Differential Comment SCANNED, Platelet Estimate SLT DEC, Plt Morphology Comment LARGE, Lactic Acid 1.8 08/05/23 13:20: Urine Color Yellow, Urine Clarity Cloudy, Urine pH 7.0, Ur Specific [place] 1.010, Urine Protein 30 H, Urine Glucose (UA) Normal, Urine Ketones 5 H, Urine Occult Blood 50 H, Urine Nitrite Positive H, Urine Bilirubin 1 H, Urine Urobilinogen 1 H, Ur Leukocyte Esterase 500 H, Urine RBC 5-10 SEEN, Urine WBC >100 SEEN, Ur Squamous Epith Cells 0 SEEN, Urine Bacteria 2+, Urine Mucus 0 SEEN Micro: Microbiology 08/05/23 12:38 Mucosa - Nose SARS-CoV-2, Influenza & RSV (PCR) - Final Imaging Radiology Impression Chest X-Ray 08/05/23 12:58 IMPRESSION: Mild cardiomegaly. No acute infiltrate is seen. Electronically Signed: Fausto Gross MD at 13:24 EST , Assessment & Plan Assessment/Plan (1) UTI (urinary tract infection): (2) Hypotension: (3) Persistent atrial fibrillation: PLAN: Plan #Urinary tract infection -UA suggestive of UTI -Was started on Bactrim 2 days ago but is still been febrile and has been feeling worse -Blood cultures and urine cultures obtained in ED -Will continue IVF -Continue IV antibiotics, previously grew Klebsiella resistant to Rocephin and Zosyn so placed on cefepime pending cultures -Will obtain bladder and renal ultrasound given hx prostate cancer and bph #Hypotension -Could be autonomic instability given Parkinson's as lab workup fairly benign but patient does have infection -Hold home antihypertensives which he did take this AM -Pt overdue for parkinson's meds as well, will order doses for now -S/p boluses, continue IVF -Pt without evidence of end organ perfusion problems at current BP and he is awake and alert -Suspect MAP of 65 is reasonable at this time -Will assess how pt does with current interventions and can consider low-dose levo consider if needed #Hx prostate cancer and BPH -On tamsulosin -Had Prostate cancer in 2005 and underwent radiation, has prostate cancer back and follows with Dr. Prather every 3 months for PSAs measured -Has appoint with Dr. Prather on Tuesday # Parkinson's disease -Continue home medications -First doses now #Glaucoma -Continue home eye drops if able # A-fib/Hx DVT -Holding Cardizem -EKG A-fib with heart rate of 66 -Not on blood thinners due to recurrent falls #DVT ppx: SCDs Evelina Overton MD Time spent in the patient's overall evaluation,decision-making process, review of diagnostic data, adjustment of management, discussion with other providers, nursing nursing and ancillary staff involved in patient's care documentation, 60 minutes Charges/Coding Visit Charges Inpatient E&M: 43706 Init Hosp L2
--- NOTE | 2023-08-05 16:19 | US_ITS ---
INDICATION: assess for retension or hydro EXAMINATION: Ultrasound US Kidney(s) complete (eg, kidneys and bladder) TECHNIQUE: Ward scale and color doppler images were obtained of the kidneys. COMPARISON: FINDINGS: RIGHT KIDNEY: 10.9 x 5.0 x 5.6 cm. The cortex is 13 mm. There is no hydronephrosis. No shadowing calculus, focal lesion or perinephric collection is demonstrated. LEFT KIDNEY: 10.7 x 5.7 x 4.7 cm. The cortex is 12 mm. There is no hydronephrosis. No shadowing calculus, focal lesion or perinephric collection is demonstrated. URINARY BLADDER: It has a volume of 132 cc. US/Kidney and Bladder IMPRESSION: Negative renal ultrasound. Electronically Signed: Clinton Harvey DO at 18:12 EST Reading Location ID and State: [facility] / [place] Tel [phone], Service support ,
[2023-08-05] MEDS: Cefepime HCl 2 GM in 0.9% Normal Saline (100mL MB+) 100 ML IV ×2 (17:03→21:33)
[2023-08-05] MEDS: prednisoLONE eye drops (5 mL) 1 DROP OPTH.BTL 1 DRP LEFT EYE (17:42)
[2023-08-05] MEDS: Pramipexole Di-HCl 1 MG Tablet PO ×2 (17:43→21:34)
--- OUTSIDE RECORDS SUMMARY | 2023-08-05 18:04 | XMS RPT_ITS | CCD ---
Author Name Unknown Address [address] [place] [address] Organization [facility] Care Team Providers Care Reticle Printer Name Role Phone Fabienne SMITH, Pennie Araujo [...] Referring Unavailable JERRY PAULSON Attending Unavailable OUMOU, MASODU Primary Care Unavailable KAREN BOSS Attending Unavailable [...] Facility (20 sources) Lidocaine Drug Allergy 04-19-2022 [facility] (20 sources) Peppermint preparation Drug Allergy 04-19-2022 [facility] Work Phone: (20 sources) Phenylephrine Drug Allergy 04-19-2022 [facility] Work Phone: (5 sources) Doxycycline Drug Allergy 03-19-2023 [facility] Medications Current Medications Medication Drug Class(es) Dates [...] One tablet by mouth twice daily APIXABAN [id number] Dave Cook MD atenolol 50 mg oral [...] Unclassified (6 sources) Drug therapy finding; Translations: [terminal carman (current) use of anticoagulants] Onset: 6 03-29-2016 [...] 170.2 cm Masoud Coello MD Work Phone: [facility] 08-03-2023 10:38-0500 Body mass index (BMI) [Ratio] 30.82 kg/m2 Masoud Coello MD Work Phone: [email or web address] 08-03-2023 10:38-0500 Body weight 89.27 kg Masoud Coello MD Work Phone: [email or web address] 08-03-2023 10:38-0500 Diastolic blood pressure 74 mm[Hg] Masoud Coello MD Work Phone: [email or web address] 08-03-2023 10:38-0500 Heart rate 75 /min Masoud Coello MD Work Phone: [email or web address] 08-03-2023 10:38-0500 SaO2% (BldA) [Mass fraction] 93 % Masoud Coello MD Work Phone: [facility] 08-03-2023 10:38-0500 Systolic blood pressure 117 mm[Hg] Masoud Coello MD Work Phone: [facility] 07-06-2023 11:32-0500 Body height 170.2 cm Masoud Coello MD Work Phone: [facility] 07-06-2023 11:32-0500 Body mass index (BMI) [Ratio] 30.51 kg/m2 Masoud Coello MD Work Phone: [facility] 07-06-2023 11:32-0500 Body weight 88.36 kg Masoud Coello MD Work Phone: [facility] 07-06-2023 11:32-0500 Diastolic blood pressure 76 mm[Hg] Masoud Coello MD Work Phone: [facility] 07-06-2023 11:32-0500 Heart rate 82 /min Masoud Coello MD Work Phone: [facility] 07-06-2023 11:32-0500 Systolic blood pressure 114 mm[Hg] Masoud Coello MD Work Phone: [facility] 06-26-2023 13:17-0500 Body temperature 97.5 [degF] Brendon Sonido [employer].METAL SHEET ROLLER OPERATOR Work Phone: [facility] 06-26-2023 13:17-0500 Body weight 88.91 kg Brendon Sonido [employer].METAL SHEET ROLLER OPERATOR Work Phone: [facility] 06-26-2023 13:17-0500 Diastolic blood pressure 68 mm[Hg] Brendon Sonido [employer].METAL SHEET ROLLER OPERATOR Work Phone: [facility] 06-26-2023 13:17-0500 Heart rate 86 /min Brendon Sonido [employer].METAL SHEET ROLLER OPERATOR Work Phone: [facility] 06-26-2023 13:17-0500 Respiratory rate 16 /min Brendon Sonido [employer].METAL SHEET ROLLER OPERATOR Work Phone: [facility] 06-26-2023 13:17-0500 SaO2% (BldA) [Mass fraction] 97 % Brendon Head [employer]ER.METAL SHEET ROLLER OPERATOR Work Phone: [facility] 06-26-2023 13:17-0500 Systolic blood pressure 112 mm[Hg] Brendon Head [employer].METAL SHEET ROLLER OPERATOR Work Phone: [facility] 05-11-2023 12:59-0500 Body height 170.2 cm Karen Boss MD Work Phone: [facility] 05-11-2023 12:59-0500 Body mass index (BMI) [Ratio] 30.85 kg/m2 Karen Boss MD Work Phone: [facility] 05-11-2023 12:59-0500 Body weight 89.36 kg Karen Boss MD Work Phone: [facility] 05-11-2023 12:59-0500 Diastolic blood pressure 86 mm[Hg] Karen Boss MD Work Phone: [facility] 05-11-2023 12:59-0500 Heart rate 90 /min Karen Boss MD Work Phone: [facility] 05-11-2023 12:59-0500 Systolic blood pressure 126 mm[Hg] Karen Boss MD Work Phone: [facility] 04-29-2023 13:05-0400 Body height 170.2 cm Meet Angel HAYWARD Work Phone: [facility] 04-29-2023 13:05-0400 Body mass index (BMI) [Ratio] 29.6 kg/m2 Meet Angel HAYWARD Work Phone: [facility] 04-29-2023 13:05-0400 Body weight 85.73 kg Meet Angel HAYWARD Work Phone: [facility] 04-29-2023 13:05-0400 Diastolic blood pressure 80 mm[Hg] Meet Angel HAYWARD Work Phone: [facility] 04-29-2023 13:05-0400 Heart rate 68 /min Meet Angel HAYWARD Work Phone: [facility] 04-29-2023 13:05-0400 Systolic blood pressure 122 mm[Hg] Mario Ortiz MD Work Phone: [facility] 03-14-2023 11:12-0400 Body height 170.2 cm Naldo Longoria MD Work Phone: [facility] 03-14-2023 11:12-0400 Body mass index (BMI) [Ratio] 29.91 kg/m2 Naldo Longoria MD Work Phone: [facility] 03-14-2023 11:12-0400 Body temperature 96.8 [degF] Naldo Longoria MD Work Phone: [facility] 03-14-2023 11:12-0400 Body weight 86.64 kg Naldo Longoria MD Work Phone: [facility] 03-14-2023 11:12-0400 Diastolic blood pressure 81 mm[Hg] Naldo Longoria MD Work Phone: [facility] 03-14-2023 11:12-0400 Heart rate 92 /min Naldo Longoria MD Work Phone: [facility] 03-14-2023 11:12-0400 Respiratory rate 16 /min Naldo Longoria MD Work Phone: [facility] 03-14-2023 11:12-0400 Systolic blood pressure 122 mm[Hg] Naldo Longoria MD Work Phone: [facility] 02-18-2023 11:59-0400 Body mass index (BMI) [Ratio] 33.27 kg/m2 Karen Boss MD Work Phone: [facility] 02-18-2023 11:59-0400 Body weight 92.08 kg Karen Boss MD Work Phone: [facility] 02-18-2023 11:59-0400 Diastolic blood pressure 89 mm[Hg] Karen Boss MD Work Phone: [facility] 02-18-2023 11:59-0400 Heart rate 104 /min Karen Boss MD Work Phone: [facility] 02-18-2023 11:59-0400 Systolic blood pressure 133 mm[Hg] Karen Boss MD Work Phone: [facility] 01-31-2023 10:50-0400 Body height 166.4 cm Masoud Coello MD Work Phone: [facility] 01-31-2023 10:50-0400 Body mass index (BMI) [Ratio] 32.45 kg/m2 Masoud Coello MD Work Phone: [facility] 01-31-2023 10:50-0400 Body weight 89.81 kg Masoud Coello MD Work Phone: [facility] 01-31-2023 10:50-0400 Diastolic blood pressure 74 mm[Hg] Masoud Coello MD Work Phone: [facility] 01-31-2023 10:50-0400 Heart rate 65 /min Masoud Coello MD Work Phone: [facility] 01-31-2023 10:50-0400 SaO2% (BldA) [Mass fraction] 99 % Masoud Coello MD Work Phone: [facility] 01-31-2023 10:50-0400 Systolic blood pressure 118 mm[Hg] Masoud Coello MD Work Phone: [facility] 01-10-2023 10:48-0400 Body mass index (BMI) [Ratio] 32.94 kg/m2 Mildred Jasmine 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 Work Phone: [facility] 01-10-2023 10:48-0400 Body temperature 98.71 [degF] Mildred Frankenthal 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 Work Phone: [facility] 01-10-2023 10:48-0400 Body weight 91.17 kg Mildred Friasal 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 Work Phone: [facility] 01-10-2023 10:48-0400 Diastolic blood pressure 72 mm[Hg] Mildred Bridenthal 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 Work Phone: [facility] 01-10-2023 10:48-0400 Heart rate 86 /min Mildred Bridenthal 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 Work Phone: [facility] 01-10-2023 10:48-0400 Respiratory rate 14 /min Mildred Bridenthal 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 Work Phone: [facility] 01-10-2023 10:48-0400 Systolic blood pressure 115 mm[Hg] Mildred Bridenthal 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 Work Phone: [facility] 12-16-2022 12:57-0400 Body height 166.4 cm Karen Boss MD Work Phone: [facility] 12-16-2022 12:57-0400 Body mass index (BMI) [Ratio] 33.96 kg/m2 Karen Boss MD Work Phone: [facility] 12-16-2022 12:57-0400 Body weight 93.98 kg Karen Boss MD Work Phone: [facility] 12-16-2022 12:57-0400 Diastolic blood pressure 83 mm[Hg] Karen Boss MD Work Phone: [facility] 12-16-2022 12:57-0400 Heart rate 85 /min Karen Boss MD Work Phone: [facility] 12-16-2022 12:57-0400 Systolic blood pressure 139 mm[Hg] Karen Boss MD Work Phone: [facility] 12-01-2022 09:59-0400 Diastolic blood pressure 87 mm[Hg] Masoud Coello MD Work Phone: [facility] 12-01-2022 09:59-0400 Heart rate 93 /min Masoud Coello MD Work Phone: [facility] 12-01-2022 09:59-0400 Systolic blood pressure 139 mm[Hg] Masoud Coello MD Work Phone: [facility] 12-01-2022 09:14-0400 Body height 172.7 cm Masoud Coello MD Work Phone: [facility] 12-01-2022 09:14-0400 Body mass index (BMI) [Ratio] 30.77 kg/m2 Masoud Coello MD Work Phone: [facility] 12-01-2022 09:14-0400 Body weight 91.81 kg Masoud Coello MD Work Phone: [facility] 12-01-2022 09:14-0400 SaO2% (BldA) [Mass fraction] 95 % Masoud Coello MD Work Phone: [facility] 11-15-2022 13:44-0400 Body height 166.4 cm Mildred Bridenthal 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 Work Phone: [facility] 11-15-2022 13:44-0400 Body mass index (BMI) [Ratio] 33.76 kg/m2 Mildred Bridenthal 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 Work Phone: [facility] 11-15-2022 13:44-0400 Body temperature 96.8 [degF] Mildred Bridenthal 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 Work Phone: [facility] 11-15-2022 13:44-0400 Body weight 93.44 kg Mildred Bridenthal 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 Work Phone: [facility] 11-15-2022 13:44-0400 Diastolic blood pressure 88 mm[Hg] Mildred Bridenthal 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 Work Phone: [facility] 11-15-2022 13:44-0400 Heart rate 72 /min Mildred Bridenthal 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 Work Phone: [facility] 11-15-2022 13:44-0400 SaO2% (BldA) [Mass fraction] 97 % Mildred Bridenthal 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 Work Phone: [address]23 13:44-0400 Systolic blood pressure 138 mm[Hg] Mildred Jasmine 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 Work Phone: [facility] 11-09-2022 09:50-0400 Body height 172.7 cm Masoud Coello MD Work Phone: [facility] 11-09-2022 09:50-0400 Body mass index (BMI) [Ratio] 31.11 kg/m2 Masoud Coello MD Work Phone: [facility] 11-09-2022 09:50-0400 Body weight 92.81 kg Masoud Coello MD Work Phone: [facility] 11-09-2022 09:50-0400 Diastolic blood pressure 85 mm[Hg] Masoud Coello MD Work Phone: [facility] 11-09-2022 09:50-0400 Heart rate 78 /min Masoud Coello MD Work Phone: [facility] 11-09-2022 09:50-0400 Systolic blood pressure 129 mm[Hg] Masoud Coello MD Work Phone: [facility] 11-04-2022 11:39-0400 Diastolic blood pressure 75 mm[Hg] Masoud Coello MD Work Phone: [facility] 11-04-2022 11:39-0400 Heart rate 86 /min Masoud Coello MD Work Phone: [facility] 11-04-2022 11:39-0400 Systolic blood pressure 135 mm[Hg] Masoud Coello MD Work Phone: [email or web address] 11-04-2022 10:49-0400 Body height 166.4 cm Masoud Coello MD Work Phone: [facility] 11-04-2022 10:49-0400 Body mass index (BMI) [Ratio] 33.23 kg/m2 Masoud Coello MD Work Phone: [facility] 11-04-2022 10:49-0400 Body weight 91.99 kg Masoud Coello MD Work Phone: [email or web address] 09-30-2022 13:56-0400 Body height 172.7 cm Karen Boss MD Work Phone: [facility] 09-30-2022 13:56-0400 Body mass index (BMI) [Ratio] 32.54 kg/m2 Karen Boss MD Work Phone: [email or web address] 09-30-2022 13:56-0400 Body weight 97.07 kg Karen Boss MD Work Phone: [facility] 09-30-2022 13:56-0400 Diastolic blood pressure 83 mm[Hg] Karen Boss MD Work Phone: [facility] 09-30-2022 13:56-0400 Heart rate 54 /min Karen Boss MD Work Phone: [facility] 09-30-2022 13:56-0400 Systolic blood pressure 144 mm[Hg] Karen Boss MD Work Phone: [email or web address] 02-24-2017 10:29-0400 BP Diastolic 60 mm[Hg] Pennie Loving RN [facility] Work Phone: 02-24-2017 10:29-0400 BP Systolic 120 mm[Hg] Pennie Loving RN [facility] Work Phone: 02-24-2017 10:29-0400 Pulse (Heart Rate) 52 /min Pennie Loving RN [facility] Work Phone: 02-10-2017 13:23-0400 BMI (Body Mass Index) 30.41 kg/m2 Dave Cook MD [facility] Work Phone: 02-10-2017 13:23-0400 BP Diastolic 76 mm[Hg] Dave Cook MD [facility] Work Phone: 02-10-2017 13:23-0400 BP Systolic 110 mm[Hg] Dave Cook MD [facility] Work Phone: 02-10-2017 13:23-0400 Height 172.72 cm Dave Cook MD [facility] Work Phone: 02-10-2017 13:23-0400 Pulse (Heart Rate) 68 /min Dave Cook MD [facility] Work Phone: 02-10-2017 13:23-0400 Respiratory Rate 18 /min Dave Cook MD [facility] Work Phone: 02-10-2017 13:23-0400 Weight 90.72 kg Dave Cook MD [facility] Work Phone: 08-17-2016 13:48-0500 BMI (Body Mass Index) 29.04 kg/m2 Harumi DeFinis [facility] Work Phone: 08-17-2016 13:48-0500 BP Diastolic 60 mm[Hg] Harumi DeFinis [facility] Work Phone: 08-17-2016 13:48-0500 BP Systolic 118 mm[Hg] Harumi DeFinis [facility] Work Phone: 08-17-2016 13:48-0500 BSA (Body Surface Area) 2.01 m2 Harumi DeFinis [facility] Work Phone: 08-17-2016 13:48-0500 Height 172.72 cm Harumi DeFinis [facility] Work Phone: 08-17-2016 13:48-0500 Pulse (Heart Rate) 64 /min Harumi DeFinis [facility] Work Phone: 08-17-2016 13:48-0500 Respiratory Rate 16 /min Harumi DeFinis [facility] Work Phone: 08-17-2016 13:48-0500 Weight 86.64 kg Harumi DeFinis [facility] Work Phone: 05-03-2016 10:42-0400 Pulse Oximetry 96 % Harumi DeFinis [facility] Work Phone: 04-28-2016 10:54-0400 Heart rate 46 /min Pennie Loving RN [facility] Work Phone: Encounters Encounter Date Encounter Type Care Provider Facility Start: 08-03-2023 End: 08-03-2023 ambulatory MASOUD COELLO [facility] Start: 08-03-2023 End: 08-03-2023 Office outpatient visit 25 minutes Masoud Coello MD Work Phone: [facility] Procedures Date Procedure Procedure Detail Performing Clinician Start: 08-03-2023 Urnls dip stick/tabl et rgnt non-auto w/o micrscp Masoud Coello MD Work Phone: Start: 07-06-2023 Urnls dip stick/tabl et rgnt non-auto w/o micrscp Masoud Coello MD Work Phone: Start: 06-26-2023 Urnls dip stick/tabl et rgnt auto w/o microscopy Brendon eHad [employer].METAL SHEET ROLLER OPERATOR Work Phone: Start: 01-31-2023 Lipid 1996 panel - S madisyn or Plasma Karen Boss MD Work Phone: Start: 12-01-2022 Urnls dip stick/tabl et rgnt non-auto w/o micrscp Masoud Coello MD Work Phone: Start: 11-15-2022 Urnls dip stick/tabl et rgnt non-auto w/o micrscp Mildred Jasmine 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 Work Phone: Start: 11-04-2022 Cul bact xcpt urine blood/stool aerobic isol Masoud Coello MD Work Phone: Start: 01-28-2022 Lipid 1996 panel - S madisyn or Plasma Karen Boss MD Work Phone: Start: 02-06-2021 Mri brain brain stem w/o contrast material Karen Boss MD Work Phone: Start: 02-24-2017 End: 02-24-2017 Follow Up BP Check Dave Cook MD Work Phone: Start: 02-10-2017 End: 02-10-2017 KATH Cook MD Work Phone: Start: 02-10-2017 End: 02-10-2017 Follow Up Appt 6 months Dave Cook MD Work Phone: Start: 08-17-2016 End: 08-17-2016 Dietary management education, guidance, and counseling Pennie Loving RN Start: 08-17-2016 End: 08-17-2016 KATH Cook MD Work Phone: Start: 08-17-2016 End: 08-17-2016 Follow Up Appt 6 months Dave Cook MD Work Phone: Start: 08-17-2016 End: 08-18-2016 Referral to reporter anchor Dave Cook MD Work Phone: Start: 06-17-2016 [...] Author Start: 02-01-2028 Lipid panel Lipid Panel [facility] Start: 01-28-2027 Lipid panel Lipid Panel [facility] Start: 01-31-2026 Diabetes Screening Diabetes Screenin g [facility] Start: 03-02-2024 Medicare Advantage Annual Wellness Visit (AWV) Medicare Advantage Annual Wellness Visit (AWV) [facility] Start: 02-02-2024 End: 02-02-2024 Patient encounter procedure 02/02/2024 9:30 AM EDT Office Visit [facility] [address] [place] [address] Masoud Coello MD [address] [place] [address] [facility] Start: 02-01-2024 Depresssion Monitoring Depresssion M onitoring [facility] Start: 01-29-2024 DTaP/Tdap/Td Vaccine s (1 - Tdap) DTaP/Tdap/Td Vaccines (1 - Tdap) [facility] Immunizations Immunization Date Immunization Notes Care Provider Fa cility 01-28-2022 zoster recombinant adjuvanted vaccine (SHINGRIX) 50 MCG/0.5ML SUSR injection Karen Boss MD Work Phone: [facility] Work Phone: Payers Date Payer Category Payer Medicare [id number] 2015 Medicare HUMANA MEDICARE HUMANA CHOICE-PPO MEDICARE xxxxxxxxx 2015-Present [address] [address] [place] [address] xxxxxxxxx [id number] 2015 Private Health Insurance [id number] 1945 Unknown [id number] 1945 Unknown [id number] Private Health Insurance Social History Date Type Detail Facility Start: 01-22-2013 End: 11-28-2019 Tobacco smoking status NHIS Never smoker [facility] Start: 11-28-2019 End: 08-03-2023 Alcohol intake Current non-drinker of alcohol (finding) [place], [place] Start: 1945 Sex Assigned At Not on file [place] Exposure to SARS-CoV -2 (event) Unable to assess [place], [place] Start: 01-22-2013 End: 01-29-2021 Tobacco use and exposure Never used [facility] Start: 01-26-2021 End: 01-28-2022 History SDOH Alcohol Frequency 1 [facility] Work Phone: Start: 01-26-2021 End: 01-28-2022 History SDOH Financial 5 [facility] Work Phone: Start: 01-26-2021 End: 01-28-2022 History SDOH Transport Med 2 [facility] Work Phone: Start: 09-20-2022 End: 03-14-2023 Exposure to SARS-CoV-2 (event) Not sure [facility] Start: 01-28-2022 History SDOH Alcohol Std Drinks 0 [facility] Work Phone: Start: 12-01-2022 End: 01-28-2023 History of Social function [facility] Start: 12-01-2022 End: 01-28-2023 Tobacco use panel [facility] How often to you hav e a drink containing alcohol? Never [facility] How many standard dr inks containing alcohol do you have on a typical day? Patient does not drink [facility] (I/We) worried wheth er (my/our) food would run out before (I/we) got money to buy more. Never true [facility] In the past 12 month s, was there a time when you were not able to pay the mortgage or rent on time? No [facility] Goals Date Patient Goal Desired [...] Mirapex 1 mg 4 times a day [facility] 08-03-2023 Evaluation + Plan note Associated Problem(s): Chronic kidney disease, stage 3a (HCC) Stable, continue good blood pressure control [facility] 08-03-2023 Miscellaneous Notes Associated Problem(s): Chronic kidney [...] times a day documented in this encounter [facility] 08-03-2023 Evaluation + Plan note Associated Problem(s): Recurrent UTI Urinalysis shows large amount of leukocytes positive for nitrates and blood. Will start him on Bactrim DS twice daily x 7 days, sent for culture and treat accordingly. [facility] 08-03-2023 Evaluation + Plan note Associated Problem(s): Hypertension Controlled, continue diltiazem 120 mg daily [facility] 08-03-2023 Evaluation + Plan note Associated Problem(s): Parkinson's disease Slow progression, continue current medications carbidopa levodopa, Comtan, Mirapex 1 mg 4 times a day [facility] 08-03-2023 History of Presen t illness Narrative [...] 08/03/2023 12:14 PM documented in this encounter [facility] 07-19-2023 Miscellaneous Notes Medication name: memantine (Namenda) [...] 01/20/23 Updated/Validated preferred pharmacy: Yes, [id number] - [place], [address] Patient instructed to contact the pharmacy prior to picking up the medication: Yes documented in this encounter [facility] [facility] 07-19-2023 Telephone encounter Note Medication name: memantine [...] 01/20/23 Updated/Validated preferred pharmacy: Yes, [id number] - [place], [address] Patient instructed to contact the pharmacy prior to picking up the medication: Yes [facility] 07-11-2023 Telephone encounter Note Prescription Request: Last medication check: 07-06-23 Last physical exam: 01-31-23 Next scheduled appointment: 08-03-23 Last date of refill on this medication 03-04-23 [facility] 07-11-2023 Miscellaneous Notes Prescription Request: Last medication check: 07-06-23 Last physical exam: 01-31-23 Next scheduled appointment: 08-03-23 Last date of refill on this medication 03-04-23 documented in this encounter [facility] 07-06-2023 Evaluation + Plan note Associated Problem(s): Recurrent UTI Urinalysis today is completely clear and with his improved symptoms we will just watch for any further symptoms. [facility] 07-06-2023 Evaluation + Plan note Associated Problem(s): Sebaceous cyst Reassurance this is dieting to be concerned about it can be removed if they squeeze it out. [facility] 07-06-2023 Miscellaneous Notes Associated Problem(s): Recurrent UTI Urinalysis today is completely clear and with his improved symptoms we will just watch for any further symptoms. Associated Problem(s): Sebaceous cyst Reassurance this is dieting to be concerned about it can be removed if they squeeze it out. documented in this encounter [facility] 07-06-2023 Miscellaneous Notes Associated Problem(s): Recurrent UTI Urinalysis today is completely clear and with his improved symptoms we will just watch for any further symptoms. Associated Problem(s): Sebaceous cyst Reassurance this is dieting to be concerned about it can be removed if they squeeze it out. Addended by: MASOUD COELLO on: 07/08/2023 07:14 AM Modules accepted: Level of Service documented in this encounter [facility] 07-06-2023 Note Addended by: MASOUD COELLO on: 07/08/2023 07:14 AM Modules accepted: Level of Service [facility] 07-06-2023 History of Presen t illness [...] 07/06/2023 2:43 PM documented in this encounter [facility] 07-06-2023 History of Presen t illness [...] 07/08/2023 7:14 AM documented in this encounter [email or web address] [employer] 07-06-2023 Note Addended by: MASOUD COELLO on: 07/08/2023 07:14 AM Modules accepted: Level of Service [email or web address] 07-05-2023 Telephone encounter Note S: ladonna calling [...] Tract Infection on Antibiotic Follow-up Call - [id number]-[id number]-MP [facility] [employer] [facility] 07-05-2023 Miscellaneous Notes S: ladonna calling CAC [...] Tract Infection on Antibiotic Follow-up Call - [id number]-YXRPI-UM documented in this encounter [facility] 06-30-2023 Telephone encounter Note Last ov- 05/11/23 Next ov- 08/16/23 [facility] 06-30-2023 Miscellaneous Notes Last ov- 05/11/23 Next ov- 08/16/23 documented in this encounter [facility] 06-26-2023 Note HNO ID: [id number] Author: Brendon Head APRN.[facility] Service: ? Author Type: Nurse Practitioner Type: [...] MACROCRYSTAL 100 MG ORAL CAP Brendon Head APRN.[facility] 06-26-2023 History of Presen t illness [...] Brendon Head APRN.[facility] documented in this encounter [facility] 06-26-2023 Instructions Brendon Head APRN.CNP - 06/26/2023 [...] in 3-5 days. documented in this encounter [facility] 06-20-2023 Telephone encounter Note Okay, thank you [facility] 06-20-2023 Miscellaneous Notes Okay, thank you S: Patient's spoke with [facility] nurse regarding cough, patient reported SOB, Headache, [...] (e.g., travel history, exposures) no Protocols used: Gkdyg-HOQDR-GS documented in this encounter [facility] 06-20-2023 Telephone encounter Note S: Patient's spoke [...] (e.g., travel history, exposures) no Protocols used: Fqlcf-DPDMI-IS [facility] 05-11-2023 History of Presen t illness Narrative Images from the original note were not included. [facility] [address] [facility] [address] [facility] [address] Dept: [phone] Dept Loc: [phone] Visit type: Established Patient Reason for Visit: [...] Elastic Bandages & Supports (Medical Compression Stockings[place] [facility] [place] Disp: , Rfl: entacapone (Comtan) 200 [...] TSH VITAMIN B12: No results found for: [id number] No results found for: PHENYTOIN , PHENOBARB , VALPROATE , CBMZ No components found for: TOPIRA @RESULTINGLABINFO@ No results found for: LEVETIRACETA , FERRITIN , CRP , LOREE , ANCA No results found for: GUNNAR , IMMUNOGLOBUL , OLIGOBANDS No results found for: ZSH96IQ , HEPCAB No results found for: CRP [...] arranging for studies. documented in this encounter [facility] 05-05-2023 Telephone encounter Note New order placed for knee high compression stockings. [facility] 05-05-2023 Miscellaneous Notes New order placed for knee high compression stockings. I would call them and see what he would wear. [facility] called stating they need a new script for compression socks, they need to know the length that the socks should be. Please advise. documented in this encounter [facility] 05-04-2023 Telephone encounter Note I would call them and see what he would wear. [facility] Work Phone: 05-03-2023 Telephone encounter Note [facility] called stating they need a new script for compression socks, they need to know the length that the socks should be. Please advise. [facility] 04-29-2023 History of Presen t illness Narrative [facility] [address] [facility] [address] Dept: [phone] Dept Loc: [phone] Visit type: New : 1945 Chief Complaint: [...] Elastic Bandages & Supports (Medical Compression Stockings[place] [facility] [place], Disp: , Rfl: entacapone (Comtan) 200 [...] (HCC) 2. Epistaxis 3. Frequent falls Mr. Carlosn is a 77 year old male who is here to discuss the Watchman procedure. He follows with Dr. Paulson who agrees that LAAO would be a good option due to Mr. Carlson's high risk of CVA with his permanent AF. His [id number] is 4. I discussed the procedure, risks, [...] for the Watchman. documented in this encounter [facility] 03-28-2023 Telephone encounter Note Returned call and [...] She stated they will discuss with him. [facility] Work Phone: 03-28-2023 Miscellaneous Notes Returned call [...] on the desk. documented in this encounter [facility] 03-25-2023 Telephone encounter Note Imaging uploaded to PACS and report scanned under media tab [facility] 03-25-2023 Telephone encounter Note Pt. Brought in MRI disk from Aug 2022. The patients MRI for March was cancelled. Pt would like to know if Dr. Longoria could advise the patient as to how they should proceed with treatment. Patient was advised that Dr. Longoria may want them to schedule an appointment. Please call to advise. Disk has been placed on the desk. [facility] 03-14-2023 History of Presen t illness Narrative [...] Elastic Bandages & Supports (Medical Compression Stockings[place] [facility] [place] 12/25/21 Yes Historical Provider, entacapone (Comtan) [...] Diagnosis Plan 1. Cervical spondylosis without myelopathy [facility] Neurosurgery Spine Surgery 2. Dropped head syndrome [facility] Neuro[facility] Spine Surgery documented in this encounter [facility] 03-04-2023 Telephone encounter Note Reviewed chart. Refill appropriate. Rx sent. [facility] 03-04-2023 Miscellaneous Notes Reviewed chart. Refill appropriate. Rx sent. Prescription Request: Last medication check: 08/02/22 Last physical exam: 01/31/23 Next scheduled appointment: 08/03/23 Last date of refill on this medication 02/01/23 30 days documented in this encounter [facility] 03-04-2023 Telephone encounter Note Prescription Request: Last medication check: 08/02/22 Last physical exam: 01/31/23 Next scheduled appointment: 08/03/23 Last date of refill on this medication 02/01/23 30 days [facility] 02-25-2023 Miscellaneous Notes Ordering provider: Dr. Coello Date of last office visit: 01.31.23 Date of next office visit: 08.03.23 Updated/Validated preferred pharmacy: Yes [id number] - [place], [place] - [address] [facility] Patient instructed to contact the pharmacy [...] medication tab): 09.08.22 documented in this encounter [facility] 02-25-2023 Telephone encounter Note Ordering provider: Dr. Coello Date of last office visit: 01.31.23 Date of next office visit: 08.03.23 Updated/Validated preferred pharmacy: Yes [id number] - [place], [place] - [address] Patient instructed to contact the pharmacy [...] of last refill (see medication tab): 3.8.23 [facility] 02-18-2023 History of Presen t illness Narrative [facility] [address] [facility] [address] [facility] [address] Dept: [phone] Dept Loc: [phone] Visit type: Established Patient Reason for Visit: Follow-up and Parkinson's Disease Assessment and Plan 1. Paroxysmal atrial fibrillation (CMS/HCC) (HCC) - [facility] Afib Clinic 2. Syncope and collapse - [facility] 3. Parkinson's disease ([facility]) 4. Dementia due to Parkinson's disease, unspecified dementia severity, unspecified whether behavioral, psychotic, or mood disturbance or anxiety ([facility]) 5. Cervical spondylosis without myelopathy Subjective HPI: He had an episode of falling in the drive way. He does not remember what happened. His reports that she found him on the driveway and that he was disoriented. The following day his heart was racing. He went to [place] [facility]. He was not admitted. He has not had the consult with cardiology that I ordered in December set up yet. He is unsteady on his feet. He is having a great deal of difficulty with his head drooping down. He had a head CT at [place], I do not have access to the [...] Elastic Bandages & Supports (Medical Compression Stockings[place] [facility] [place], Disp: , Rfl: ipratropium (Atrovent) 0.06 [...] TSH VITAMIN B12: No results found for: [id number] No results found for: PHENYTOIN, PHENOBARB, VALPROATE, CBMZ No components found for: TOPIRA @RESULTINGLABINFO@ No results found for: LEVETIRACETA, FERRITIN, CRP, LOREE, ANCA No results found for: GUNNAR, IMMUNOGLOBUL, OLIGOBANDS No results found for: [id number], HEPCAB No results found for: CRP, ANATITER, ANCA, ANCA FERRITIN: No results found for: FERRITIN ---- XR foot 3+ views right Narrative: Patient Name: KAREN CARLSON : 1945 [facility]#: [id number] Exam Date/Time: 11/04/2022 12:57 Procedure: XR FOOT [...] Plan 1. Paroxysmal atrial fibrillation (CMS/HCC) (HCC) [facility] 2. Syncope and collapse [facility] 3. Parkinson's disease (HCC) 4. [...] for studies. @SIGNATURE@ documented in this encounter [facility] 02-15-2023 Telephone encounter Note All medical record request have been faxed to [employer]. [facility] 02-15-2023 Miscellaneous Notes All medical record request have been faxed to [employer]. Name of caller: Naldo Contact phone number: [phone] Relationship to Patient: [employer] Provider: Practice: Neurology Chief Complaint/Reason for Call: Naldo is requesting to be advised if the office had received a records request that was faxed on 01/06/23. Please contact and advise. Best time of day caller can be reached: Any Patient advised that office/PCP has 24-48 business hours to return their call: Yes documented in this encounter [facility] 02-15-2023 Telephone encounter Note Name of caller: Naldo Contact phone number: [phone] Relationship to Patient: [employer] Provider: Practice: Neurology Chief Complaint/Reason for Call: Naldo is requesting to be advised if the office had received a records request that was faxed on 01/06/23. Please contact and advise. Best time of day caller can be reached: Any Patient advised that office/PCP has 24-48 business hours to return their call: Yes [facility] 01-31-2023 Telephone encounter Note Rx sent. [facility] 01-31-2023 Miscellaneous Notes Rx sent. Prescription Request: Last medication check: 08/02/22 Last physical exam: 01/31/23 Next scheduled appointment: none--appt today Last date of refill on this medication 08/02/22 90 days 1 refill documented in this encounter [facility] 01-31-2023 Evaluation + Plan note Associated Problem(s): Major depressive disorder, single episode, in partial remission (HCC) Partial remission, refusing medications. [facility] 01-31-2023 Miscellaneous Notes Associated Problem(s): Major depressive [...] neurology as scheduled. documented in this encounter [facility] 01-31-2023 Evaluation + Plan note Associated Problem(s): Morbid (severe) obesity due to excess calories (HCC) Weight loss, encouraged to continue weight loss. [facility] 01-31-2023 Evaluation + Plan note Associated Problem(s): Peripheral vascular disease, unspecified (HCC) Stable, currently not an issue due to not being able to walk very well. [facility] 01-31-2023 Evaluation + Plan note Associated Problem(s): Other secondary pulmonary hypertension (HCC) Stable, no medications. [facility] 01-31-2023 Evaluation + Plan note Associated Problem(s): Hypertension Controlled, continue diltiazem 120 mg daily [facility] 01-31-2023 Evaluation + Plan note Associated Problem(s): Parkinson's disease (HCC) Stable, continue carbidopa levodopa and Mirapex at current doses, follow-up with neurology as scheduled. [facility] 01-31-2023 Telephone encounter Note Prescription Request: Last medication check: 08/02/22 Last physical exam: 01/31/23 Next scheduled appointment: none--appt today Last date of refill on this medication 08/02/22 90 days 1 refill [facility] 01-31-2023 History of Presen t illness Narrative Health Maintenance/pend orders Allergies Meds-pharmacy Medical hx Surgical hx Family hx Tobacco use E-Cigarette/vaping use Alcohol use Drug use Fall Risk HRA PHQ2/9 Social Determinants Pend any medication refills needed All of the above have been reviewed/completed Images from the original note were not included. [facility] [address] Visit type: Established Patient Reason for Visit: [...] 01/31/2023 11:30 AM documented in this encounter [facility] 01-20-2023 Telephone encounter Note Message released to patient as written. Patient's further questions if applicable: N/A Were all questions from office addressed or relayed to the patient from encounter: Yes [facility] 01-20-2023 Miscellaneous Notes Message released to patient [...] Name of caller: Snow Contact phone number: [phone] Relationship to Patient: spouse/SO Provider: monse Practice: [...] their call: Yes documented in this encounter [facility] 01-20-2023 Telephone encounter Note Attempted to reach pt no answer, voicemail was not set up. [facility] 01-19-2023 Telephone encounter Note Contact the patient/family. I did NOT discontinue the memantine. The computer says that Dr. Coello discontinued it. Please have them find out from Dr. Coello why it was discontinued. [facility] 01-19-2023 Telephone encounter Note Please advise. [facility] 01-14-2023 Telephone encounter Note Name of caller: Snow Contact phone number: [phone] Relationship to Patient: spouse/SO Provider: monse Practice: [...] business hours to return their call: Yes [facility] 01-10-2023 Evaluation + Plan note Associated Problem(s): Callus under metatarsal head Bilateral callus metatarsal heads, recommend using emollient therapy daily and corn pads to reduce pressure. No signs or symptoms of infection. Will refer to podiatry for further evaluation, treatment and nail care. [facility] 01-10-2023 Miscellaneous Notes Associated Problem(s): Callus under [...] over drying occurs. documented in this encounter [facility] 01-10-2023 Evaluation + Plan note Associated Problem(s): Nasal congestion Not likely infectious. Denies seasonal allergies. None ill-appearing. Recommend changing filter on in home air conditioner unit. Will start ipratropium nasal spray every 8 hours as needed for symptoms. Recommended to reduce or discontinue use if over drying occurs. [facility] 01-10-2023 Telephone encounter Note Noted. Agree with disposition. [facility] 01-10-2023 Miscellaneous Notes Noted. Agree with disposition. [...] last menstrual period? N/A Protocols used: Foot Kbsz-RDNBZ-RP documented in this encounter [facility] 01-10-2023 History of Presen t illness Narrative Sheet Cutter for Intimate and Non Intimate Exam Sheet Cutter was declined Sheet Cutter: na Images from the original note were [...] Elastic Bandages & Supports (Medical Compression Stockings) [facility] [place] 12/25/21 Yes Historical Provider, latanoprost (Xalatan) [...] 01/10/2023 10:56 AM documented in this encounter [facility] 01-10-2023 Instructions BETH Hartmann CNP - 01/10/2023 10:40 AM EDT Soak warm soapy water 10 minutes, then place moisturizer and corn pads daily documented in this encounter [facility] [employer] 01-10-2023 Telephone encounter Note S: Pt's (Snow) [...] last menstrual period? N/A Protocols used: Foot [id number]-[id number]-DY [facility] 12-28-2022 Telephone encounter Note Prescription Request: Last medication check: 08/02/2022 Last physical exam: 01/28/22 Last completed appointment: 12/01/22 Next scheduled appointment: 01/31/23 Last date of refill on this medication: 12/01/22 [facility] 12-28-2022 Miscellaneous Notes Prescription Request: Last medication check: 08/02/2022 Last physical exam: 01/28/22 Last completed appointment: 12/01/22 Next scheduled appointment: 01/31/23 Last date of refill on this medication: 12/01/22 documented in this encounter [facility] 12-16-2022 History of Presen t illness Narrative Images from the original note were not included. [facility] [address] [place] [address] [facility] [address] Dept: [phone] Dept Loc: [phone] Visit type: Established Patient Reason for Visit: Follow-up, Dementia, and Parkinson's Disease Assessment and Plan 1. Paroxysmal atrial fibrillation (CMS/HCC) ([facility]) - [facility] Cardiology 2. Parkinson's disease ([facility]) 3. Dementia due to Parkinson's disease, unspecified dementia severity, unspecified whether behavioral, psychotic, or mood disturbance or anxiety ([facility]) 4. Restless legs syndrome Subjective HPI: He [...] Elastic Bandages & Supports (Medical Compression Stockings) [facility] [place], Disp: , Rfl: latanoprost (Xalatan) 0.005 [...] TSH VITAMIN B12: No results found for: [id number] No results found for: PHENYTOIN, PHENOBARB, VALPROATE, CBMZ No components found for: TOPIRA @RESULTINGLABINFO@ No results found for: LEVETIRACETA, FERRITIN, CRP, LOREE, ANCA No results found for: GUNNAR, IMMUNOGLOBUL, OLIGOBANDS No results found for: [id number], HEPCAB No results found for: CRP, ANATITER, ANCA, ANCA FERRITIN: No results found for: FERRITIN ---- XR foot 3+ views right Narrative: [facility] 1945 [id number] Exam Date/Time: 11/04/2022 12:57 Procedure: XR FOOT [...] Diagnosis Plan 1. Paroxysmal atrial fibrillation (CMS/HCC) ([facility]) [facility] Cardiology 2. Parkinson's disease ([facility]) 3. Dementia due to Parkinson's disease, unspecified dementia severity, unspecified whether behavioral, psychotic, or mood disturbance or anxiety ([facility]) 4. Restless legs syndrome His history and [...] for studies. @SIGNATURE@ documented in this encounter [facility] 12-01-2022 Evaluation + Plan note Associated Problem(s): Major depressive disorder, single episode, in partial remission (HCC) Remission, currently on no medications. [facility] 12-01-2022 Evaluation + Plan note Associated Problem(s): Dependent edema We will have him stop his Lasix and begin torsemide 20 mg daily [facility] 12-01-2022 Evaluation + Plan note Associated Problem(s): Open wound of right great toe Wound is no longer open this is well-healed small callus was removed. 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) Well-healed wounds on both the right and left foot [facility] 12-01-2022 Evaluation + Plan note Associated Problem(s): Recurrent UTI Urinalysis is negative [facility] 12-01-2022 Evaluation + Plan note Associated Problem(s): Chronic kidney disease, stage 3a (HCC) Mariely Flomax [facility] 12-01-2022 Evaluation + Plan note Associated Problem(s): BPH with urinary obstruction Recheck UA which is clear, start Flomax 0.4 mg daily [facility] 12-01-2022 Evaluation + Plan note Associated Problem(s): Parkinson's disease (HCC) Stable, continue carbidopa levodopa at current dosing [facility] 12-01-2022 History of Presen t illness Narrative Patient verified by last name and date of . Patient wants a hotel and dining room cashier in the room during during the visit. no Sheet Cutter laith Adamson in room during visit Images [...] depressive disorder, single episode, in partial remission ([facility]) Assessment & Plan: Remission, currently on no medications. 6. Chronic kidney disease, stage 3a ([facility]) Assessment & Plan: Stable, Flomax 7. Parkinson's disease ([facility]) Assessment & Plan: Stable, continue carbidopa levodopa at current dosing 8. Non-pressure chronic ulcer of other part of left lower leg limited to breakdown of skin ([facility]) Assessment & Plan: Well-healed wounds on both [...] 12/01/2022 1:04 PM documented in this encounter [facility] 11-15-2022 Evaluation + Plan note Associated Problem(s): Acute cystitis with hematuria Urine + blood and leuks, symptomatic. Will start antibiotic therapy. [facility] 11-15-2022 Miscellaneous Notes Associated Problem(s): Acute cystitis with hematuria Urine + blood and leuks, symptomatic. Will start antibiotic therapy. documented in this encounter [facility] 11-15-2022 History of Presen t illness Narrative [...] 11/15/2022 1:53 PM documented in this encounter [facility] 11-15-2022 Instructions BETH Hartmann CNP - 11/15/2022 1:40 PM EDT Stop doxycycline. Start ciprofloxacin for urinary tract infection. documented in this encounter [facility] 11-09-2022 Evaluation + Plan note Associated Problem(s): Open wound of right great toe Dressing changes and corn pad to keep pressure off the tip of the toe [facility] 11-09-2022 Evaluation + Plan note Associated Problem(s): Wound of left foot Dressing changes and corn pads to keep the pressure off the wound [facility] 11-09-2022 Miscellaneous Notes Associated Problem(s): Open wound [...] do dressing changes documented in this encounter [facility] 11-09-2022 Evaluation + Plan note Associated Problem(s): Penetrating wound of right foot Healing wound of foot, will have them continue to do dressing changes [facility] 11-09-2022 History of Presen t illness Narrative Patient verified by last name and date of . Patient wants a hotel and dining room cashier in the room during during the visit. no Sheet Cutter laith Snow in room during visit Images [...] 11/09/2022 11:42 AM documented in this encounter [facility] 11-04-2022 Evaluation + Plan note Associated Problem(s): Unspecified open wound, left foot, initial encounter Superficial wound under blister, this is a clean base and will have Bactroban applied twice a day with a dressing change. [facility] 11-04-2022 Miscellaneous Notes Associated Problem(s): Unspecified open [...] in 5 days documented in this encounter [facility] 11-04-2022 Miscellaneous Notes Associated Problem(s): Unspecified open [...] Level of Service documented in this encounter [facility] 11-04-2022 Evaluation + Plan note Associated Problem(s): [...] dressing changes and follow-up in 5 days [facility] 11-04-2022 History of Presen t illness Narrative Patient verified by last name and date of . Patient wants a hotel and dining room cashier in the room during during the visit. no Sheet Cutter na in room during visit Images from [...] 11/04/2022 12:30 PM documented in this encounter [facility] 11-04-2022 History of Presen t illness Narrative Patient verified by last name and date of . Patient wants a hotel and dining room cashier in the room during during the visit. no Sheet Cutter na in room during visit Images from [...] 11/05/2022 11:01 AM documented in this encounter [facility] 11-04-2022 Note Addended by: MASOUD COELLO on: 11/05/2022 11:02 AM Modules accepted: Level of Service [facility] 09-30-2022 History of Presen t illness Narrative Images from the original note were not included. [facility] [address] [facility] [address] [facility] [address] Dept: [phone] Dept Loc: [phone] Visit type: Established Patient Reason for Visit: [...] Elastic Bandages & Supports (Medical Compression Stockings[place] [facility] [place] Disp: , Rfl: furosemide (Lasix) 40 [...] TSH VITAMIN B12: No results found for: [id number] No results found for: PHENYTOIN, PHENOBARB, VALPROATE, CBMZ No components found for: TOPIRA @RESULTINGLABINFO@ No results found for: LEVETIRACETA, FERRITIN, CRP, LOREE, ANCA No results found for: GUNNAR, IMMUNOGLOBUL, OLIGOBANDS No results found for: YBU42HH, HEPCAB No results found for: CRP, ANATITER, ANCA, ANCA FERRITIN: No results found for: FERRITIN ---- XR CERVICAL SPINE W OBLIQUES FLEXION AND EXTENSION [facility]: [id number] ACCESSION EXAM DATE/TIME PROCEDURE ORDERING PROVIDER [id number] 04/26/2022 16:02 EDT CR Spine Cervical Comp KAREN BOSS w/ Obliques CPT code 74118 Reason For Exam (CR Spine Cervical Comp [...] arranging for studies. documented in this encounter [facility] [employer] documented in this encounter [facility] Work Phone: Evaluation note* Diagnosis Cervicalgia documented in this encounter [facility] Work Phone: Evaluation note* Diagnosis Parkinson's disease (HCC)- Primary Paralysis agitans Dementia due to Parkinson's disease, unspecified dementia severity, unspecified whether behavioral, psychotic, or mood disturbance or anxiety ([facility]) [facility] Diagnosis Penetrating foot wound, right, initial encounter- Primary Unspecified open wound, left foot, initial encounter [facility] Diagnosis Penetrating foot wound, right, initial encounter [facility] Diagnosis Penetrating foot wound, right, initial encounter- Primary Unspecified open wound, left foot, initial encounter [facility] Diagnosis Penetrating wound of right foot, subsequent encounter- Primary Wound of left foot Open wound of right great toe, initial encounter [facility]* Diagnosis Acute cystitis with hematuria- Primary Urinary tract infection symptoms [facility]* Diagnosis Open wound of right [...] of skin (HCC) [facility]* Diagnosis Paroxysmal atrial fibrillation (CMS/HCC) (HCC)- Primary Atrial fibrillation Parkinson's disease (HCC) Paralysis agitans Dementia due to Parkinson's disease, unspecified dementia severity, unspecified whether behavioral, psychotic, or mood disturbance or anxiety (HCC) Restless legs syndrome Restless legs syndrome (RLS) [facility] Diagnosis Callus under metatarsal head- Primary Nasal congestion Other diseases of nasal cavity and sinuses [facility]* Diagnosis Medicare annual wellness visit, subsequent- [...] Morbid (severe) obesity due to excess calories ([facility]) [facility]* Diagnosis Paroxysmal atrial fibrillation (CMS/HCC) (HCC)- Primary Atrial fibrillation Syncope and collapse Parkinson's disease (HCC) Paralysis agitans Dementia due to Parkinson's disease, unspecified dementia severity, unspecified whether behavioral, psychotic, or mood disturbance or anxiety ([facility]) 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 [facility]* Diagnosis 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 [facility]* Diagnosis Longstanding persistent atrial fibrillation (HCC)- Primary Epistaxis Frequent falls [facility]* Diagnosis Dependent edema- Primary Edema documented in this encounter [facility] note* Diagnosis Parkinson's disease without dyskinesia or fluctuating manifestations- Primary Binocular visual disturbance [facility] Diagnosis Urinary frequency- Primary Burning with urination Dysuria [facility] Diagnosis Parkinson's disease Paralysis agitans [facility] Diagnosis Recurrent UTI- Primary Urinary tract infection, site not specified Sebaceous cyst [facility] Diagnosis Recurrent UTI- Primary Urinary tract infection, site not specified Sebaceous cyst [facility] Diagnosis Mild dementia due to Parkinson's disease, unspecified whether behavioral, psychotic, or mood disturbance or anxiety ([facility]) [facility] Diagnosis Parkinson's disease without dyskinesia or fluctuating manifestations- Primary Primary hypertension Unspecified essential hypertension Recurrent UTI Urinary tract infection, site not specified Chronic kidney disease, stage 3a ([facility]) [facility] Consultation (Routine) - Pending Review Specialty Diagnoses / Procedures Referred By Contac t Referred To Contact Cardiology Diagnoses Paroxysmal atrial fibrillation (CMS/HCC) (HCC) Procedures [place] OFFICE/OUTPATIENT [facility] 60-74 MINUTES Karen Boss MD [address] [facility] [address] [place] [address] Bladimir Sequeira MD [address] [facility] [address] [place] [address] Referral ID Status Reason Start Date Expiration Date Visits Requested Visits Authorized [id number] Pending Review Specialty Services Required 12/16/2022 12/16/2023 1 1 [facility] Consultation (Routine) - Pending Review Specialty Diagnoses / Procedures Referred By Contac t Referred To Contact Podiatry Diagnoses Callus under metatarsal head Procedures [facility] OFFICE/OUTPATIENT [facility] 60-74 MINUTES Mildred Jasmine [employer]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 [address] [facility] [place] [address] Terry Taylor, GAETANO [address] [address] Referral ID Status Reason Start Date Expiration Date Visits Requested Visits Authorized [id number] Pending Review Specialty Services Required 01/10/2023 01/10/2024 1 [facility] Consultation (Routine) - Pending Review Specialty Diagnoses / Procedures Referred By Contac t Referred To Contact Neurosurgery Diagnoses 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 Karen Boss MD [address] [facility] [address] [place] [address] Naldo Longoria MD [address] [place] [address] Referral ID Status Reason Start Date Expiration Date Visits Requested Visits Authorized [id number] Pending Review Specialty Services Required 02/18/2023 02/18/2024 1 1 * Imaging (Routine) - Pending Review Specialty Diagnoses / Procedures Referred By Contac t Referred To Contact Radiology Diagnoses 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 Procedures MR cervical spine wo contrast Karen Boss MD [address] [facility] [address] [place] [address] Referral ID Status Reason Start Date Expiration Date V isits Requested Visits Authorized [id number] Pending Review 02/18/2023 08/17/2023 1 1 * Consultation (Urgent) - Pending Review Specialty Diagnoses / Procedures Referred By Contac t Referred To Contact Cardiology Diagnoses Paroxysmal atrial fibrillation (CMS/HCC) (HCC) Syncope and collapse Procedures [place] OFFICE/OUTPATIENT [facility] 60-74 MINUTES Karen Boss MD [address] [facility] [address] [place] [address] Jerry Paulson MD [address] [facility] [place] [address] Referral ID Status Reason Start Date Expiration Date Visits Requested Visits Authorized [id number] Pending Review Specialty Services Required 02/18/2023 02/18/2024 1 1 [facility] Summary Purpose Family History No Family History Records FoundNo Family History Records FoundNo Family History Records FoundNo Family History Records FoundNo Family History Records Found Advance Directives No Advanced Directives Records FoundDocuments on File Type Date Recorded Patient Research Affiliate Expl anation Advance Directives and Living Will Power of Stove Cleaner Documents on File Type Date Recorded Patient Research Affiliate Expl anation ACP-Advance Directive ACP-Power of Stove Cleaner Documents on File Type Date Recorded Patient Research Affiliate Expl anation Living Will Documentation 11/04/2022 4:09 PM Documents on File Type Date Recorded Patient Research Affiliate Expl anation Living Will Documentation 11/04/2022 4:09 [...] Karen Boss MD [address] [place] [address] Specialty Diagnoses / Procedures Referred By Contac t Referred To Contact Diagnoses 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 DATE CREATED AUTHOR AUTHOR'S ORGANIZ ATION 04/30/2022 [facility] DATE CREATED AUTHOR AUTHOR'S ORGANIZ ATION 06/29/2023 [facility] DATE CREATED AUTHOR AUTHOR'S ORGANIZ ATION 08/05/2023 [facility] Care Teams (unrecognized sec tion and content) Reticle Printer Relationship Specialty Start Date End Date Masoud Coello MD [address] [place] [address] PCP - General 05/19/15 Reticle Printer Relationship Specialty Start Date End Date Masoud Coello MD [address] [place] [address] PCP - General 05/19/15 Reticle Printer Relationship Specialty Start Date End Date Masoud Coello MD [address] [facility] [place] [address] PCP - General 05/19/15 Reticle Printer Relationship Specialty Start Date End Date Masoud Coello MD [facility] [place] [address] PCP - General 05/19/15 Reticle Printer Relationship Specialty Start Date End Date Masoud Coello MD [facility] [place] [address] PCP - General 05/19/15 Reticle Printer Relationship Specialty Start Date End Date [facility] [place] [address] PCP - General 05/19/15 Reticle Printer Relationship Specialty Start Date End Date [place]oud Coello [place] [facility] [place] [address] PCP - General 05/19/15 Reticle Printer Relationship Specialty Start Date End Date [place]oud [place]ello [place] [facility] [place] [address] PCP - General 05/19/15 Reticle Printer Relationship Specialty Start Date End Date Masoud Coello [place] [facility] [place] [address] PCP - General 05/19/15 Reticle Printer Relationship Specialty Start Date End Date [place]oud Coello [place] [facility] [place] [address] PCP - General 05/19/15 Reticle Printer Relationship Specialty Start Date End Date Masoud Coello MD [address] [place] [address] PCP - General 05/19/15 Reticle Printer Relationship Specialty Start Date End Date Masoud Coello MD [address] [place] [address] PCP - General 05/19/15 Reticle Printer Relationship Specialty Start Date End Date Masoud Coello MD [address] [place] [address] PCP - General 05/19/15 Reticle Printer Relationship Specialty Start Date End Date Masoud Coello MD [address] [place] [address] PCP - General 05/19/15 Reticle Printer Relationship Specialty Start Date End Date Masoud Coello MD [address] [place] [address] PCP - General 05/19/15 Reticle Printer Relationship Specialty Start Date End Date Masoud Coello MD [address] [place] [address] PCP - General 05/19/15 Reticle Printer Relationship Specialty Start Date End Date Masoud Coello MD [address] [facility] [place] [address] PCP - General 05/19/15 Reticle Printer Relationship Specialty Start Date End Date Masoud Coello MD [address] [facility] [place] [address] PCP - General 05/19/15 Reticle Printer Relationship Specialty Start Date End Date Masoud Coello MD [address] [facility] [place] [address] PCP - General 05/19/15 Reticle Printer Relationship Specialty Start Date End Date Masoud Coello [address] [facility] [place] [address] PCP - General Family Medicine 01/22/13 Reticle Printer Relationship Specialty Start Date End Date Masoud Coello MD [address] [facility] [place] [address] PCP - General 05/19/15 Reticle Printer Relationship Specialty Start Date End Date Masoud Coello MD [address] [facility] [place] [address] PCP - General 05/19/15 Reticle Printer Relationship Specialty Start Date End Date Masoud Coello MD [address] [facility] [place] [address] PCP - General 05/19/15 Reticle Printer Relationship Specialty Start Date End Date Masoud Coello MD [address] [facility] [place] [address] PCP - General 05/19/15 Reticle Printer Relationship Specialty Start Date End Date Masoud Coello MD [address] [facility] [place] [address] PCP - General 05/19/15 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 [employer] provides no warranty or guarantee of the accuracy or completeness of information in this document.
--- OUTSIDE RECORDS SUMMARY | 2023-08-05 18:12 | XMS RPT_ITS | CCD ---
Author Name Unknown Address [id number] [place] [address] Organization [facility] Care Team Providers Care Ventilating Expert Name Role Phone Fabienne SMITH, Pennie Araujo Unavailable Unavailable MD Joey, Dave Alexandra Unavailable [phone] Fabienne SMITH, Pennie Araujo Unavailable Unavailable Oswald Saavedra Unavailable Unavailable Dylan Moody Unavailable Unavailable Fabienne SMITH, Pennie Araujo Unavailable Unavailable Masoud Coello Primary Care Provider [phone] Masoud Coello MD Primary Care Provider Masoud [...] Unavailable OUMOU, MASOUD Primary Care Unavailable KAREN BSOS Attending Unavailable OUMOU, MASOUD Primary Care Unavailable [...] Facility (20 sources) Lidocaine Drug Allergy 04-19-2022 [facility] (20 sources) Peppermint preparation Drug Allergy 04-19-2022 [facility] Work Phone: (20 sources) Phenylephrine Drug Allergy 04-19-2022 [facility] Work Phone: (5 sources) Doxycycline Drug Allergy 03-19-2023 [facility] Medications Current Medications Medication Drug Class(es) [...] One tablet by mouth twice daily APIXABAN [id number] Dave Cook MD atenolol 50 mg oral [...] Unclassified (6 sources) Drug therapy finding; Translations: [intermediate designer (current) use of anticoagulants] Onset: 6 03-29-2016 [...] 170.2 cm Masoud Coello MD Work Phone: [facility] 08-03-2023 10:38-0500 Body mass index (BMI) [Ratio] 30.82 kg/m2 Masoud Coello MD Work Phone: [facility] 08-03-2023 10:38-0500 Body weight 89.27 kg Masoud Coello MD Work Phone: [facility] 08-03-2023 10:38-0500 Diastolic blood pressure 74 mm[Hg] Masoud Coello MD Work Phone: [facility] 08-03-2023 10:38-0500 Heart rate 75 /min Masoud Coello MD Work Phone: [facility] 08-03-2023 10:38-0500 SaO2% (BldA) [Mass fraction] 93 % Masoud Coello MD Work Phone: [facility] 08-03-2023 10:38-0500 Systolic blood pressure 117 mm[Hg] Masoud Coello MD Work Phone: [facility] 07-06-2023 11:32-0500 Body height 170.2 cm Masoud Coello MD Work Phone: [facility] 07-06-2023 11:32-0500 Body mass index (BMI) [Ratio] 30.51 kg/m2 Masoud Coello MD Work Phone: [facility] 07-06-2023 11:32-0500 Body weight 88.36 kg Masoud Coello MD Work Phone: [facility] 07-06-2023 11:32-0500 Diastolic blood pressure 76 mm[Hg] Masoud Coello MD Work Phone: [facility] 07-06-2023 11:32-0500 Heart rate 82 /min Masoud Coello MD Work Phone: [facility] 07-06-2023 11:32-0500 Systolic blood pressure 114 mm[Hg] Masoud Coello MD Work Phone: [facility] 06-26-2023 13:17-0500 Body temperature 97.5 [degF] Brendon Sonido TRUCK DRIVER INSTRUCTOR.NUTRITIONAL YEAST SUPERVISOR Work Phone: [facility] 06-26-2023 13:17-0500 Body weight 88.91 kg Brendon Sonido TRUCK DRIVER INSTRUCTOR.NUTRITIONAL YEAST SUPERVISOR Work Phone: [facility] 06-26-2023 13:17-0500 Diastolic blood pressure 68 mm[Hg] Brendon Sonido TRUCK DRIVER INSTRUCTOR.NUTRITIONAL YEAST SUPERVISOR Work Phone: [facility] 06-26-2023 13:17-0500 Heart rate 86 /min Brendon Sonido TRUCK DRIVER INSTRUCTOR.NUTRITIONAL YEAST SUPERVISOR Work Phone: [facility] 06-26-2023 13:17-0500 Respiratory rate 16 /min Brendon Sonido TRUCK DRIVER INSTRUCTOR.NUTRITIONAL YEAST SUPERVISOR Work Phone: [facility] 06-26-2023 13:17-0500 SaO2% (BldA) [Mass fraction] 97 % Brendon Head TRUCK DRIVER INSTRUCTOR.NUTRITIONAL YEAST SUPERVISOR Work Phone: [facility] 06-26-2023 13:17-0500 Systolic blood pressure 112 mm[Hg] Brendon Head TRUCK DRIVER INSTRUCTOR.NUTRITIONAL YEAST SUPERVISOR Work Phone: [facility] 05-11-2023 12:59-0500 Body height 170.2 cm Karen Boss MD Work Phone: [facility] 05-11-2023 12:59-0500 Body mass index (BMI) [Ratio] 30.85 kg/m2 Karen Boss MD Work Phone: [facility] 05-11-2023 12:59-0500 Body weight 89.36 kg Karen Boss MD Work Phone: [facility] 05-11-2023 12:59-0500 Diastolic blood pressure 86 mm[Hg] Karen Boss MD Work Phone: [facility] 05-11-2023 12:59-0500 Heart rate 90 /min Karen Boss MD Work Phone: [facility] 05-11-2023 12:59-0500 Systolic blood pressure 126 mm[Hg] Karen Boss MD Work Phone: [facility] 04-29-2023 13:05-0400 Body height 170.2 cm Meet Angel HAYWARD Work Phone: [facility] 04-29-2023 13:05-0400 Body mass index (BMI) [Ratio] 29.6 kg/m2 Meet Angel HAYWARD Work Phone: [facility] 04-29-2023 13:05-0400 Body weight 85.73 kg Meet Angel HAYWARD Work Phone: [facility] 04-29-2023 13:05-0400 Diastolic blood pressure 80 mm[Hg] Meet Angel HAYWADR Work Phone: [facility] 04-29-2023 13:05-0400 Heart rate 68 /min Meet Angel HAYWARD Work Phone: [facility] 04-29-2023 13:05-0400 Systolic blood pressure 122 mm[Hg] Mario Ortiz MD Work Phone: [facility] 03-14-2023 11:12-0400 Body height 170.2 cm Naldo Longoria MD Work Phone: [facility] 03-14-2023 11:12-0400 Body mass index (BMI) [Ratio] 29.91 kg/m2 Naldo Longoria MD Work Phone: [facility] 03-14-2023 11:12-0400 Body temperature 96.8 [degF] Naldo Longoria MD Work Phone: [facility] 03-14-2023 11:12-0400 Body weight 86.64 kg Naldo Longoria MD Work Phone: [facility] 03-14-2023 11:12-0400 Diastolic blood pressure 81 mm[Hg] Naldo Longoria MD Work Phone: [facility] 03-14-2023 11:12-0400 Heart rate 92 /min Naldo Longoria MD Work Phone: [facility] 03-14-2023 11:12-0400 Respiratory rate 16 /min Naldo Longoria MD Work Phone: [facility] 03-14-2023 11:12-0400 Systolic blood pressure 122 mm[Hg] Naldo Longoria MD Work Phone: [facility] 02-18-2023 11:59-0400 Body mass index (BMI) [Ratio] 33.27 kg/m2 Karen Boss MD Work Phone: [facility] 02-18-2023 11:59-0400 Body weight 92.08 kg Karen Boss MD Work Phone: [facility] 02-18-2023 11:59-0400 Diastolic blood pressure 89 mm[Hg] Karen Boss MD Work Phone: [facility] 02-18-2023 11:59-0400 Heart rate 104 /min Karen Boss MD Work Phone: [facility] 02-18-2023 11:59-0400 Systolic blood pressure 133 mm[Hg] Karen Boss MD Work Phone: [facility] 01-31-2023 10:50-0400 Body height 166.4 cm Masoud Coello MD Work Phone: [facility] 01-31-2023 10:50-0400 Body mass index (BMI) [Ratio] 32.45 kg/m2 Masoud Coello MD Work Phone: [facility] 01-31-2023 10:50-0400 Body weight 89.81 kg Masoud Coello MD Work Phone: [facility] 01-31-2023 10:50-0400 Diastolic blood pressure 74 mm[Hg] Masoud Coello MD Work Phone: [facility] 01-31-2023 10:50-0400 Heart rate 65 /min Masoud Coello MD Work Phone: [facility] 01-31-2023 10:50-0400 SaO2% (BldA) [Mass fraction] 99 % Masoud Coello MD Work Phone: [facility] 01-31-2023 10:50-0400 Systolic blood pressure 118 mm[Hg] Masoud Coello MD Work Phone: [facility] 01-10-2023 10:48-0400 Body mass index (BMI) [Ratio] 32.94 kg/m2 Mildred Jasmine TRUCK DRIVER INSTRUCTOR - NUTRITIONAL YEAST SUPERVISOR Work Phone: [facility] 01-10-2023 10:48-0400 Body temperature 98.71 [degF] Mildred Frankenthal TRUCK DRIVER INSTRUCTOR - NUTRITIONAL YEAST SUPERVISOR Work Phone: [facility] 01-10-2023 10:48-0400 Body weight 91.17 kg Mildred Friasal TRUCK DRIVER INSTRUCTOR - NUTRITIONAL YEAST SUPERVISOR Work Phone: [facility] 01-10-2023 10:48-0400 Diastolic blood pressure 72 mm[Hg] Mildred Bridenthal TRUCK DRIVER INSTRUCTOR - NUTRITIONAL YEAST SUPERVISOR Work Phone: [facility] 01-10-2023 10:48-0400 Heart rate 86 /min Mildred Bridenthal TRUCK DRIVER INSTRUCTOR - NUTRITIONAL YEAST SUPERVISOR Work Phone: [facility] 01-10-2023 10:48-0400 Respiratory rate 14 /min Mildred Bridenthal TRUCK DRIVER INSTRUCTOR - NUTRITIONAL YEAST SUPERVISOR Work Phone: [facility] 01-10-2023 10:48-0400 Systolic blood pressure 115 mm[Hg] Mildred Bridenthal TRUCK DRIVER INSTRUCTOR - NUTRITIONAL YEAST SUPERVISOR Work Phone: [facility] 12-16-2022 12:57-0400 Body height 166.4 cm Karen Boss MD Work Phone: [facility] 12-16-2022 12:57-0400 Body mass index (BMI) [Ratio] 33.96 kg/m2 Karen Boss MD Work Phone: [facility] 12-16-2022 12:57-0400 Body weight 93.98 kg Karen Boss MD Work Phone: [facility] 12-16-2022 12:57-0400 Diastolic blood pressure 83 mm[Hg] Karen Boss MD Work Phone: [facility] 12-16-2022 12:57-0400 Heart rate 85 /min Karen Boss MD Work Phone: [facility] 12-16-2022 12:57-0400 Systolic blood pressure 139 mm[Hg] Karen Boss MD Work Phone: [facility] 12-01-2022 09:59-0400 Diastolic blood pressure 87 mm[Hg] Masoud Coello MD Work Phone: [facility] 12-01-2022 09:59-0400 Heart rate 93 /min Masoud Coello MD Work Phone: [facility] 12-01-2022 09:59-0400 Systolic blood pressure 139 mm[Hg] Masoud Coello MD Work Phone: [facility] 12-01-2022 09:14-0400 Body height 172.7 cm Masoud Coello MD Work Phone: [facility] 12-01-2022 09:14-0400 Body mass index (BMI) [Ratio] 30.77 kg/m2 Masoud Coello MD Work Phone: [facility] 12-01-2022 09:14-0400 Body weight 91.81 kg Masoud Coello MD Work Phone: [facility] 12-01-2022 09:14-0400 SaO2% (BldA) [Mass fraction] 95 % Masoud Coello MD Work Phone: [facility] 11-15-2022 13:44-0400 Body height 166.4 cm Mildred Bridenthal TRUCK DRIVER INSTRUCTOR - NUTRITIONAL YEAST SUPERVISOR Work Phone: [facility] 11-15-2022 13:44-0400 Body mass index (BMI) [Ratio] 33.76 kg/m2 Mildred Bridenthal TRUCK DRIVER INSTRUCTOR - NUTRITIONAL YEAST SUPERVISOR Work Phone: [facility] 11-15-2022 13:44-0400 Body temperature 96.8 [degF] Mildred Bridenthal TRUCK DRIVER INSTRUCTOR - NUTRITIONAL YEAST SUPERVISOR Work Phone: [facility] 11-15-2022 13:44-0400 Body weight 93.44 kg Mildred Bridenthal TRUCK DRIVER INSTRUCTOR - NUTRITIONAL YEAST SUPERVISOR Work Phone: [facility] 11-15-2022 13:44-0400 Diastolic blood pressure 88 mm[Hg] Mildred Bridenthal TRUCK DRIVER INSTRUCTOR - NUTRITIONAL YEAST SUPERVISOR Work Phone: [facility] 11-15-2022 13:44-0400 Heart rate 72 /min Mildred Bridenthal TRUCK DRIVER INSTRUCTOR - NUTRITIONAL YEAST SUPERVISOR Work Phone: [facility] 11-15-2022 13:44-0400 SaO2% (BldA) [Mass fraction] 97 % Mildred Bridenthal TRUCK DRIVER INSTRUCTOR - NUTRITIONAL YEAST SUPERVISOR Work Phone: [address]2023 13:44-0400 Systolic blood pressure 138 mm[Hg] Mildred Jasmine TRUCK DRIVER INSTRUCTOR - NUTRITIONAL YEAST SUPERVISOR Work Phone: [facility] 11-09-2022 09:50-0400 Body height 172.7 cm Masoud Coello MD Work Phone: [facility] 11-09-2022 09:50-0400 Body mass index (BMI) [Ratio] 31.11 kg/m2 Masoud Coello MD Work Phone: [facility] 11-09-2022 09:50-0400 Body weight 92.81 kg Masoud Coello MD Work Phone: [facility] 11-09-2022 09:50-0400 Diastolic blood pressure 85 mm[Hg] Masoud Coello MD Work Phone: [facility] 11-09-2022 09:50-0400 Heart rate 78 /min Masoud Coello MD Work Phone: [facility] 11-09-2022 09:50-0400 Systolic blood pressure 129 mm[Hg] Masoud Coello MD Work Phone: [facility] 11-04-2022 11:39-0400 Diastolic blood pressure 75 mm[Hg] Masoud Coello MD Work Phone: [facility] 11-04-2022 11:39-0400 Heart rate 86 /min Masoud Coello MD Work Phone: [facility] 11-04-2022 11:39-0400 Systolic blood pressure 135 mm[Hg] Masoud Coello MD Work Phone: [facility] 11-04-2022 10:49-0400 Body height 166.4 cm Masoud Coello MD Work Phone: [facility] 11-04-2022 10:49-0400 Body mass index (BMI) [Ratio] 33.23 kg/m2 Masoud Coello MD Work Phone: [facility] 11-04-2022 10:49-0400 Body weight 91.99 kg Masoud Coello MD Work Phone: [facility] 09-30-2022 13:56-0400 Body height 172.7 cm Karen Boss MD Work Phone: [facility] 09-30-2022 13:56-0400 Body mass index (BMI) [Ratio] 32.54 kg/m2 Karen Boss MD Work Phone: [facility] 09-30-2022 13:56-0400 Body weight 97.07 kg Karen Boss MD Work Phone: [facility] 09-30-2022 13:56-0400 Diastolic blood pressure 83 mm[Hg] Karen Boss MD Work Phone: [facility] 09-30-2022 13:56-0400 Heart rate 54 /min Karen Boss MD Work Phone: [facility] 09-30-2022 13:56-0400 Systolic blood pressure 144 mm[Hg] Karen Boss MD Work Phone: [facility] 02-24-2017 10:29-0400 BP Diastolic 60 mm[Hg] Pennie Loving RN [facility] Work Phone: 02-24-2017 10:29-0400 BP Systolic 120 mm[Hg] Pennie Loving RN [facility] Work Phone: 02-24-2017 10:29-0400 Pulse (Heart Rate) 52 /min Pennie Loving RN [facility] Work Phone: 02-10-2017 13:23-0400 BMI (Body Mass Index) 30.41 kg/m2 Dave Cook MD [facility] Work Phone: 02-10-2017 13:23-0400 BP Diastolic 76 mm[Hg] Dave Cook MD [facility] Work Phone: 02-10-2017 13:23-0400 BP Systolic 110 mm[Hg] Dave Cook MD [facility] Work Phone: 02-10-2017 13:23-0400 Height 172.72 cm Dave Cook MD [facility] Work Phone: 02-10-2017 13:23-0400 Pulse (Heart Rate) 68 /min Dave Cook MD [facility] Work Phone: 02-10-2017 13:23-0400 Respiratory Rate 18 /min Dave Cook MD [facility] Work Phone: 02-10-2017 13:23-0400 Weight 90.72 kg Dave Cook MD [facility] Work Phone: 08-17-2016 13:48-0500 BMI (Body Mass Index) 29.04 kg/m2 Harumi DeFinis [facility] Work Phone: 08-17-2016 13:48-0500 BP Diastolic 60 mm[Hg] Harumi DeFinis [facility] Work Phone: 08-17-2016 13:48-0500 BP Systolic 118 mm[Hg] Harumi DeFinis [facility] Work Phone: 08-17-2016 13:48-0500 BSA (Body Surface Area) 2.01 m2 Harumi DeFinis [facility] Work Phone: 08-17-2016 13:48-0500 Height 172.72 cm Harumi DeFinis [facility] Work Phone: 08-17-2016 13:48-0500 Pulse (Heart Rate) 64 /min Harumi DeFinis [facility] Work Phone: 08-17-2016 13:48-0500 Respiratory Rate 16 /min Harumi DeFinis [facility] Work Phone: 08-17-2016 13:48-0500 Weight 86.64 kg Harumi DeFinis [facility] Work Phone: 05-03-2016 10:42-0400 Pulse Oximetry 96 % Harumi DeFinis [facility] Work Phone: 04-28-2016 10:54-0400 Heart rate 46 /min Pennie Loving RN [facility] Work Phone: Encounters Encounter Date Encounter Type Care Provider Facility Start: 08-03-2023 End: 08-03-2023 ambulatory MASOUD COELLO [facility] Start: 08-03-2023 End: 08-03-2023 Office outpatient visit 25 minutes Masoud Coello MD Work Phone: [facility] Procedures Date Procedure Procedure Detail Performing Clinician Start: 08-03-2023 Urnls dip stick/tabl et rgnt non-auto w/o micrscp Masoud Coello MD Work Phone: Start: 07-06-2023 Urnls dip stick/tabl et rgnt non-auto w/o micrscp Masoud Coello MD Work Phone: Start: 06-26-2023 Urnls dip stick/tabl et rgnt auto w/o microscopy Brendon Head TRUCK DRIVER INSTRUCTOR.NUTRITIONAL YEAST SUPERVISOR Work Phone: Start: 01-31-2023 Lipid 1996 panel - S madisyn or Plasma Karen Boss MD Work Phone: Start: 12-01-2022 Urnls dip stick/tabl et rgnt non-auto w/o micrscp Masoud Coello MD Work Phone: Start: 11-15-2022 Urnls dip stick/tabl et rgnt non-auto w/o micrscp Mildred Jasmine TRUCK DRIVER INSTRUCTOR - NUTRITIONAL YEAST SUPERVISOR Work Phone: Start: 11-04-2022 Cul bact xcpt [...] Phone: Start: 08-17-2016 End: 08-18-2016 Referral to director insurance Dave Cook MD Work Phone: Start: 06-17-2016 [...] Author Start: 02-01-2028 Lipid panel Lipid Panel [facility] Start: 01-28-2027 Lipid panel Lipid Panel [facility] Start: 01-31-2026 Diabetes Screening Diabetes Screenin g [facility] Start: 03-02-2024 Medicare Advantage Annual Wellness Visit (AWV) Medicare Advantage Annual Wellness Visit (AWV) [facility] Start: 02-02-2024 End: 02-02-2024 Patient encounter procedure 02/02/2024 9:30 AM EDT Office Visit [facility] [address] [place] [address] Masoud Coello MD [address] [place] [place] [address] [facility] Start: 02-01-2024 Depresssion Monitoring Depresssion M onitoring [facility] Start: 01-29-2024 DTaP/Tdap/Td Vaccine s (1 - Tdap) DTaP/Tdap/Td Vaccines (1 - Tdap) [facility] Immunizations Immunization Date Immunization Notes Care Provider Fa cility 01-28-2022 zoster recombinant adjuvanted vaccine (SHINGRIX) 50 MCG/0.5ML SUSR injection Karen Boss MD Work Phone: [facility] Work Phone: Payers Date Payer Category Payer Medicare [id number] 2015 Medicare HUMANA MEDICARE HUMANA CHOICE-PPO MEDICARE xxxxxxxxx 2015-Present [address] [address] [place] [address] xxxxxxxxx [id number] 2015 Private Health Insurance [id number] 1945 Unknown [id number] 1945 Unknown [id number] Private Health Insurance Social History Date Type Detail Facility Start: 01-22-2013 End: 11-28-2019 Tobacco smoking status NHIS Never smoker [facility] Start: 11-28-2019 End: 08-03-2023 Alcohol intake Current non-drinker of alcohol (finding) [place], [place] Start: 1945 Sex Assigned At Not on file M [place], [place] Exposure to SARS-CoV -2 (event) Unable to assess [place] Start: 01-22-2013 End: 01-29-2021 Tobacco use and exposure Never used [facility] Start: 01-26-2021 End: 01-28-2022 History SDOH Alcohol Frequency 1 [facility] Work Phone: Start: 01-26-2021 End: 01-28-2022 History SDOH Financial 5 [facility] Work Phone: Start: 01-26-2021 End: 01-28-2022 History SDOH Transport Med 2 [facility] Work Phone: Start: 09-20-2022 End: 03-14-2023 Exposure to SARS-CoV-2 (event) Not sure [facility] Start: 01-28-2022 History SDOH Alcohol Std Drinks 0 [facility] Work Phone: Start: 12-01-2022 End: 01-28-2023 History of Social function [facility] Start: 12-01-2022 End: 01-28-2023 Tobacco use panel [facility] How often to you hav e a drink containing alcohol? Never [facility] How many standard dr inks containing alcohol do you have on a typical day? Patient does not drink [facility] (I/We) worried wheth er (my/our) food would run out before (I/we) got money to buy more. Never true [facility] In the past 12 month s, was there a time when you were not able to pay the mortgage or rent on time? No [facility] Goals Date Patient Goal Desired [...] Mirapex 1 mg 4 times a day [facility] 08-03-2023 Evaluation + Plan note Associated Problem(s): Chronic kidney disease, stage 3a (HCC) Stable, continue good blood pressure control [facility] 08-03-2023 Miscellaneous Notes Associated Problem(s): Chronic [...] times a day documented in this encounter [facility] 08-03-2023 Evaluation + Plan note Associated Problem(s): Recurrent UTI Urinalysis shows large amount of leukocytes positive for nitrates and blood. Will start him on Bactrim DS twice daily x 7 days, sent for culture and treat accordingly. [facility] 08-03-2023 Evaluation + Plan note Associated Problem(s): Hypertension Controlled, continue diltiazem 120 mg daily [facility] 08-03-2023 Evaluation + Plan note Associated Problem(s): Parkinson's disease Slow progression, continue current medications carbidopa levodopa, Comtan, Mirapex 1 mg 4 times a day [facility] 08-03-2023 History of Presen t illness Narrative [...] 08/03/2023 12:14 PM documented in this encounter [facility] 07-19-2023 Miscellaneous Notes Medication name: memantine [...] 01/20/23 Updated/Validated preferred pharmacy: Yes, [id number] - [place], [address] Patient instructed to contact the pharmacy prior to picking up the medication: Yes documented in this encounter [facility] 07-19-2023 Telephone encounter Note Medication name: [...] 01/20/23 Updated/Validated preferred pharmacy: Yes, [id number] - [place], [address] Patient instructed to contact the pharmacy prior to picking up the medication: Yes [facility] 07-11-2023 Telephone encounter Note Prescription Request: Last medication check: 07-06-23 Last physical exam: 01-31-23 Next scheduled appointment: 08-03-23 Last date of refill on this medication 03-04-23 [facility] 07-11-2023 Miscellaneous Notes Prescription Request: Last medication check: 07-06-23 Last physical exam: 01-31-23 Next scheduled appointment: 08-03-23 Last date of refill on this medication 03-04-23 documented in this encounter [facility] 07-06-2023 Evaluation + Plan note Associated Problem(s): Recurrent UTI Urinalysis today is completely clear and with his improved symptoms we will just watch for any further symptoms. [facility] 07-06-2023 Evaluation + Plan note Associated Problem(s): Sebaceous cyst Reassurance this is dieting to be concerned about it can be removed if they squeeze it out. [facility] 07-06-2023 Miscellaneous Notes Associated Problem(s): Recurrent UTI Urinalysis today is completely clear and with his improved symptoms we will just watch for any further symptoms. Associated Problem(s): Sebaceous cyst Reassurance this is dieting to be concerned about it can be removed if they squeeze it out. documented in this encounter [facility] 07-06-2023 Miscellaneous Notes Associated Problem(s): Recurrent [...] Level of Service documented in this encounter [facility] 07-06-2023 Note Addended by: MASOUD COELLO on: 07/08/2023 07:14 AM Modules accepted: Level of Service [facility] 07-06-2023 History of Presen t illness [...] 07/06/2023 2:43 PM documented in this encounter [facility] 07-06-2023 History of Presen t illness [...] 07/08/2023 7:14 AM documented in this encounter [facility] 07-06-2023 Note Addended by: MASOUD COELLO on: 07/08/2023 07:14 AM Modules accepted: Level of Service [facility] 07-05-2023 Telephone encounter Note S: ladonna calling [...] Tract Infection on Antibiotic Follow-up Call - [id number] [facility] 07-05-2023 Miscellaneous Notes S: ladonna calling CAC [...] Tract Infection on Antibiotic Follow-up Call - [id number] documented in this encounter [facility] 06-30-2023 Telephone encounter Note Last ov- 05/11/23 Next ov- 08/16/23 [facility] 06-30-2023 Miscellaneous Notes Last ov- 05/11/23 Next ov- 08/16/23 documented in this encounter [facility] 06-26-2023 Note HNO ID: [id number] Author: Brendon Head APRN.[facility] Service: ? Author Type: Nurse Practitioner [...] MACROCRYSTAL 100 MG ORAL CAP Brendon Head APRN.[facility] 06-26-2023 History of Presen t illness [...] Brendon Head APRN.[facility] documented in this encounter [facility] 06-26-2023 Instructions Brendon Head APRN.CNP - [...] in 3-5 days. documented in this encounter [facility] 06-20-2023 Telephone encounter Note Okay, thank you [facility] 06-20-2023 Miscellaneous Notes Okay, thank you S: Patient's spoke with [facility] nurse regarding cough, patient reported SOB, Headache, [...] (e.g., travel history, exposures) no Protocols used: [id number] documented in this encounter [facility] 06-20-2023 Telephone encounter Note S: Patient's [...] (e.g., travel history, exposures) no Protocols used: Taziy-[id number]-ZZ [facility] 05-11-2023 History of Presen t illness Narrative Images from the original note were not included. [facility] [address] [facility] [address] Dept: [phone] Dept Loc: [phone] Visit type: Established Patient Reason for Visit: [...] Elastic Bandages & Supports (Medical Compression Stockings) [facility], Disp: , Rfl: entacapone (Comtan) 200 [...] TSH VITAMIN B12: No results found for: [id number] No results found for: PHENYTOIN , PHENOBARB , VALPROATE , CBMZ No components found for: TOPIRA @RESULTINGLABINFO@ No results found for: LEVETIRACETA , FERRITIN , CRP , LOREE , ANCA No results found for: GUNNAR , IMMUNOGLOBUL , OLIGOBANDS No results found for: [id number] , HEPCAB No results found for: CRP [...] arranging for studies. documented in this encounter [facility] 05-05-2023 Telephone encounter Note New order placed for knee high compression stockings. [facility] 05-05-2023 Miscellaneous Notes New order placed for knee high compression stockings. I would call them and see what he would wear. [facility] called stating they need a new script for compression socks, they need to know the length that the socks should be. Please advise. documented in this encounter [facility] 05-04-2023 Telephone encounter Note I would call them and see what he would wear. [facility] Work Phone: 05-03-2023 Telephone encounter Note [facility] called stating they need a new script for compression socks, they need to know the length that the socks should be. Please advise. 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 His [id number] is 4. I discussed the procedure, risks, [...] for the Watchman. documented in this encounter [facility] 03-28-2023 Telephone encounter Note Returned call and [...] She stated they will discuss with him. [facility] Work Phone: 03-28-2023 Miscellaneous Notes Returned call [...] on the desk. documented in this encounter [facility] 03-25-2023 Telephone encounter Note Imaging uploaded to PACS and report scanned under media tab [facility] 03-25-2023 Telephone encounter Note Pt. Brought [...] Disk has been placed on the desk. [facility] 03-14-2023 History of Presen t illness [...] Elastic Bandages & Supports (Medical Compression Stockings) [facility] [place] 12/25/21 Yes Historical Provider, entacapone (Comtan) [...] Diagnosis Plan 1. Cervical spondylosis without myelopathy [facility] Spine Surgery 2. Dropped head syndrome [facility] Sp[facility] documented in this encounter [facility] 03-04-2023 Telephone encounter Note Reviewed chart. Refill appropriate. Rx sent. [facility] 03-04-2023 Miscellaneous Notes Reviewed chart. Refill appropriate. Rx sent. Prescription Request: Last medication check: 08/02/22 Last physical exam: 01/31/23 Next scheduled appointment: 08/03/23 Last date of refill on this medication 02/01/23 30 days documented in this encounter [facility] 03-04-2023 Telephone encounter Note Prescription Request: Last medication check: 08/02/22 Last physical exam: 01/31/23 Next scheduled appointment: 08/03/23 Last date of refill on this medication 02/01/23 30 days [facility] 02-25-2023 Miscellaneous Notes Ordering provider: Dr. Coello Date of last office visit: 01.31.23 Date of next office visit: 08.03.23 Updated/Validated preferred pharmacy: Yes [id number] - [place], [place] - [address] [facility] Patient instructed to contact the pharmacy prior [...] medication tab): 09.08.22 documented in this encounter [facility] 02-25-2023 Telephone encounter Note Ordering provider: Dr. Coello Date of last office visit: 01.31.23 Date of next office visit: 08.03.23 Updated/Validated preferred pharmacy: Yes [id number] - [place], [place] - [address] [facility] Patient instructed to contact the pharmacy prior [...] of last refill (see medication tab): 3.8.23 [facility] 02-18-2023 History of Presen t illness Narrative [facility] [address] [facility] [facility] [address] Dept: [phone] Dept Loc: [phone] Visit type: Established Patient Reason for Visit: Follow-up and Parkinson's Disease Assessment and Plan 1. Paroxysmal atrial fibrillation (CMS/HCC) (HCC) - [facility] Afib [facility] 2. Syncope and collapse - [facility] 3. Parkinson's disease ([facility]) 4. Dementia due to Parkinson's disease, unspecified dementia severity, unspecified whether behavioral, psychotic, or mood disturbance or anxiety ([facility]) 5. Cervical spondylosis without myelopathy Subjective HPI: He had an episode of falling in the drive way. He does not remember what happened. His reports that she found him on the driveway and that he was disoriented. The following day his heart was racing. He went to [place] [facility]. He was not admitted. He has not had the consult with cardiology that I ordered in December set up yet. He is unsteady on his feet. He is having a great deal of difficulty with his head drooping down. He had a head CT at [place], I do not have access to the [...] Elastic Bandages & Supports (Medical Compression Stockings) [facility], Disp: , Rfl: ipratropium (Atrovent) 0.06 [...] TSH VITAMIN B12: No results found for: [id number] No results found for: PHENYTOIN, PHENOBARB, VALPROATE, CBMZ No components found for: TOPIRA @RESULTINGLABINFO@ No results found for: LEVETIRACETA, FERRITIN, CRP, LOREE, ANCA No results found for: GUNNAR, IMMUNOGLOBUL, OLIGOBANDS No results found for: [id number], HEPCAB No results found for: CRP, ANATITER, ANCA, ANCA FERRITIN: No results found for: FERRITIN ---- XR foot 3+ views right Narrative: Patient Name: KAREN CARLSON : 1945 [facility]#: [id number] Exam Date/Time: 11/04/2022 12:57 Procedure: XR FOOT [...] Plan 1. Paroxysmal atrial fibrillation (CMS/HCC) (HCC) [facility] 2. Syncope and collapse [facility] 3. Parkinson's disease (HCC) 4. [...] for studies. @SIGNATURE@ documented in this encounter [facility] 02-15-2023 Telephone encounter Note All medical record request have been faxed to [employer]. [facility] 02-15-2023 Miscellaneous Notes All medical record request have been faxed to [employer]. Name of caller: Naldo Contact phone number: [phone] Relationship to Patient: [employer] Provider: Practice: Neurology Chief Complaint/Reason for Call: Naldo is requesting to be advised if the office had received a records request that was faxed on 01/06/23. Please contact and advise. Best time of day caller can be reached: Any Patient advised that office/PCP has 24-48 business hours to return their call: Yes documented in this encounter [facility] 02-15-2023 Telephone encounter Note Name of caller: Naldo Contact phone number: [phone] Relationship to Patient: [employer] Provider: Practice: Neurology Chief Complaint/Reason for Call: Naldo is requesting to be advised if the office had received a records request that was faxed on 01/06/23. Please contact and advise. Best time of day caller can be reached: Any Patient advised that office/PCP has 24-48 business hours to return their call: Yes [facility] 01-31-2023 Telephone encounter Note Rx sent. [facility] 01-31-2023 Miscellaneous Notes Rx sent. Prescription Request: Last medication check: 08/02/22 Last physical exam: 01/31/23 Next scheduled appointment: none--appt today Last date of refill on this medication 08/02/22 90 days 1 refill documented in this encounter [facility] 01-31-2023 Evaluation + Plan note Associated Problem(s): Major depressive disorder, single episode, in partial remission (HCC) Partial remission, refusing medications. [facility] 01-31-2023 Miscellaneous Notes Associated Problem(s): Major [...] neurology as scheduled. documented in this encounter [facility] 01-31-2023 Evaluation + Plan note Associated Problem(s): Morbid (severe) obesity due to excess calories (HCC) Weight loss, encouraged to continue weight loss. [facility] 01-31-2023 Evaluation + Plan note Associated Problem(s): Peripheral vascular disease, unspecified (HCC) Stable, currently not an issue due to not being able to walk very well. [facility] 01-31-2023 Evaluation + Plan note Associated Problem(s): Other secondary pulmonary hypertension (HCC) Stable, no medications. [facility] 01-31-2023 Evaluation + Plan note Associated Problem(s): Hypertension Controlled, continue diltiazem 120 mg daily [facility] 01-31-2023 Evaluation + Plan note Associated Problem(s): Parkinson's disease (HCC) Stable, continue carbidopa levodopa and Mirapex at current doses, follow-up with neurology as scheduled. [facility] 01-31-2023 Telephone encounter Note Prescription Request: Last medication check: 08/02/22 Last physical exam: 01/31/23 Next scheduled appointment: none--appt today Last date of refill on this medication 08/02/22 90 days 1 refill [facility] 01-31-2023 History of Presen t illness Narrative Health Maintenance/pend orders Allergies Meds-pharmacy Medical hx Surgical hx Family hx Tobacco use E-Cigarette/vaping use Alcohol use Drug use Fall Risk HRA PHQ2/9 Social Determinants Pend any medication refills needed All of the above have been reviewed/completed Images from the original note were not included. [facility] [address] [facility] [id number] Visit type: Established Patient Reason for Visit: [...] 01/31/2023 11:30 AM documented in this encounter [facility] 01-20-2023 Telephone encounter Note Message released to patient as written. Patient's further questions if applicable: N/A Were all questions from office addressed or relayed to the patient from encounter: Yes [facility] 01-20-2023 Miscellaneous Notes Message released to [...] Name of caller: Snow Contact phone number: [phone] Relationship to Patient: spouse/SO Provider: monse Practice: [...] their call: Yes documented in this encounter [facility] 01-20-2023 Telephone encounter Note Attempted to reach pt no answer, voicemail was not set up. [facility] 01-19-2023 Telephone encounter Note Contact the patient/family. I did NOT discontinue the memantine. The computer says that Dr. Coello discontinued it. Please have them find out from Dr. Coello why it was discontinued. [facility] 01-19-2023 Telephone encounter Note Please advise. [facility] 01-14-2023 Telephone encounter Note Name of caller: Snow Contact phone number: [phone] Relationship to Patient: spouse/SO Provider: monse Practice: [...] business hours to return their call: Yes [facility] 01-10-2023 Evaluation + Plan note Associated Problem(s): Callus under metatarsal head Bilateral callus metatarsal heads, recommend using emollient therapy daily and corn pads to reduce pressure. No signs or symptoms of infection. Will refer to podiatry for further evaluation, treatment and nail care. [facility] 01-10-2023 Miscellaneous Notes Associated Problem(s): Callus [...] over drying occurs. documented in this encounter [facility] 01-10-2023 Evaluation + Plan note Associated Problem(s): Nasal congestion Not likely infectious. Denies seasonal allergies. None ill-appearing. Recommend changing filter on in home air conditioner unit. Will start ipratropium nasal spray every 8 hours as needed for symptoms. Recommended to reduce or discontinue use if over drying occurs. [facility] 01-10-2023 Telephone encounter Note Noted. Agree with disposition. [facility] 01-10-2023 Miscellaneous Notes Noted. Agree with [...] last menstrual period? N/A Protocols used: Foot Ulyf-AHLOT-LH documented in this encounter [facility] 01-10-2023 History of Presen t illness Narrative Insulation Mechanic for Intimate and Non Intimate Exam Insulation Mechanic was declined Insulation Mechanic: na Images from the original note were [...] Elastic Bandages & Supports (Medical Compression Stockings) [facility] [place] 12/25/21 Yes Historical Provider, latanoprost (Xalatan) [...] (0.4 mg) by mouth daily. 12/01/22 Yes Masuod Coello MD torsemide (Demadex) 20 MG tablet [...] 01/10/2023 10:56 AM documented in this encounter [facility] 01-10-2023 Instructions BETH Hartmann CNP - 01/10/2023 10:40 AM EDT Soak warm soapy water 10 minutes, then place moisturizer and corn pads daily documented in this encounter [facility] 01-10-2023 Telephone encounter Note S: Pt's (Snow) [...] last menstrual period? N/A Protocols used: Foot Okis-OSXKI-NX [facility] 12-28-2022 Telephone encounter Note Prescription Request: Last medication check: 08/02/2022 Last physical exam: 01/28/22 Last completed appointment: 12/01/22 Next scheduled appointment: 01/31/23 Last date of refill on this medication: 12/01/22 [facility] 12-28-2022 Miscellaneous Notes Prescription Request: Last medication check: 08/02/2022 Last physical exam: 01/28/22 Last completed appointment: 12/01/22 Next scheduled appointment: 01/31/23 Last date of refill on this medication: 12/01/22 documented in this encounter [facility] 12-16-2022 History of Presen t illness Narrative Images from the original note were not included. [facility] [address] [place] [address] [facility] [address] Dept: [phone] Dept Loc: [phone] Visit type: Established Patient Reason for Visit: Follow-up, Dementia, and Parkinson's Disease Assessment and Plan 1. Paroxysmal atrial fibrillation (CMS/HCC) ([facility]) - [facility] Cardiology 2. Parkinson's disease ([facility]) 3. Dementia due to Parkinson's disease, unspecified dementia severity, unspecified whether behavioral, psychotic, or mood disturbance or anxiety ([facility]) 4. Restless legs syndrome Subjective HPI: He [...] Elastic Bandages & Supports (Medical Compression Stockings[place] [facility], Disp: , Rfl: latanoprost (Xalatan) 0.005 [...] TSH VITAMIN B12: No results found for: [id number] No results found for: PHENYTOIN, PHENOBARB, VALPROATE, CBMZ No components found for: TOPIRA @RESULTINGLABINFO@ No results found for: LEVETIRACETA, FERRITIN, CRP, LOREE, ANCA No results found for: GUNNAR, IMMUNOGLOBUL, OLIGOBANDS No results found for: [id number], HEPCAB No results found for: CRP, ANATITER, ANCA, ANCA FERRITIN: No results found for: FERRITIN ---- XR foot 3+ views right Narrative: Patient Name: KAREN CARLSON : 1945 [facility]#: [id number] Exam Date/Time: 11/04/2022 12:57 Procedure: XR FOOT [...] Plan 1. Paroxysmal atrial fibrillation (CMS/HCC) ([facility]) [facility] Cardiology 2. Parkinson's disease ([facility]) 3. Dementia due to Parkinson's disease, unspecified dementia severity, unspecified whether behavioral, psychotic, or mood disturbance or anxiety ([facility]) 4. Restless legs syndrome His history and [...] for studies. @SIGNATURE@ documented in this encounter [facility] 12-01-2022 Evaluation + Plan note Associated Problem(s): Major depressive disorder, single episode, in partial remission (HCC) Remission, currently on no medications. [facility] 12-01-2022 Evaluation + Plan note Associated Problem(s): Dependent edema We will have him stop his Lasix and begin torsemide 20 mg daily [facility] 12-01-2022 Evaluation + Plan note Associated Problem(s): Open wound of right great toe Wound is no longer open this is well-healed small callus was removed. 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) Well-healed wounds on both the right and left foot [facility] 12-01-2022 Evaluation + Plan note Associated Problem(s): Recurrent UTI Urinalysis is negative [facility] 12-01-2022 Evaluation + Plan note Associated Problem(s): Chronic kidney disease, stage 3a (HCC) Mariely Flomax [facility] 12-01-2022 Evaluation + Plan note Associated Problem(s): BPH with urinary obstruction Recheck UA which is clear, start Flomax 0.4 mg daily [facility] 12-01-2022 Evaluation + Plan note Associated Problem(s): Parkinson's disease (HCC) Stable, continue carbidopa levodopa at current dosing [facility] 12-01-2022 History of Presen t illness Narrative Patient verified by last name and date of . Patient wants a fire boat engineer in the room during during the visit. no Insulation Mechanic laith Adamson in room during visit Images [...] disorder, single episode, in partial remission ([facility]) Assessment & Plan: Remission, currently on no medications. 6. Chronic kidney disease, stage 3a ([facility]) Assessment & Plan: Stable, Flomax 7. Parkinson's disease ([facility]) Assessment & Plan: Stable, continue carbidopa levodopa at current dosing 8. Non-pressure chronic ulcer of other part of left lower leg limited to breakdown of skin ([facility]) Assessment & Plan: Well-healed wounds on both [...] 12/01/2022 1:04 PM documented in this encounter [facility] 11-15-2022 Evaluation + Plan note Associated Problem(s): Acute cystitis with hematuria Urine + blood and leuks, symptomatic. Will start antibiotic therapy. [facility] 11-15-2022 Miscellaneous Notes Associated Problem(s): Acute cystitis with hematuria Urine + blood and leuks, symptomatic. Will start antibiotic therapy. documented in this encounter [facility] 11-15-2022 History of Presen t illness [...] 11/15/2022 1:53 PM documented in this encounter [facility] 11-15-2022 Instructions BETH Hartmann CNP - 11/15/2022 1:40 PM EDT Stop doxycycline. Start ciprofloxacin for urinary tract infection. documented in this encounter [facility] 11-09-2022 Evaluation + Plan note Associated Problem(s): Open wound of right great toe Dressing changes and corn pad to keep pressure off the tip of the toe [facility] 11-09-2022 Evaluation + Plan note Associated Problem(s): Wound of left foot Dressing changes and corn pads to keep the pressure off the wound [facility] 11-09-2022 Miscellaneous Notes Associated Problem(s): Open [...] do dressing changes documented in this encounter [facility] 11-09-2022 Evaluation + Plan note Associated Problem(s): Penetrating wound of right foot Healing wound of foot, will have them continue to do dressing changes [facility] 11-09-2022 History of Presen t illness Narrative Patient verified by last name and date of . Patient wants a fire boat engineer in the room during during the visit. no Insulation Mechanic laith Snow in room during visit Images [...] 11/09/2022 11:42 AM documented in this encounter [facility] 11-04-2022 Evaluation + Plan note Associated Problem(s): Unspecified open wound, left foot, initial encounter Superficial wound under blister, this is a clean base and will have Bactroban applied twice a day with a dressing change. [facility] 11-04-2022 Miscellaneous Notes Associated Problem(s): Unspecified [...] in 5 days documented in this encounter [facility] 11-04-2022 Miscellaneous Notes Associated Problem(s): Unspecified [...] Level of Service documented in this encounter [facility] 11-04-2022 Evaluation + Plan note Associated [...] dressing changes and follow-up in 5 days [facility] 11-04-2022 History of Presen t illness Narrative Patient verified by last name and date of . Patient wants a fire boat engineer in the room during during the visit. no Insulation Mechanic na in room during visit Images from [...] 11/04/2022 12:30 PM documented in this encounter [facility] 11-04-2022 History of Presen t illness Narrative Patient verified by last name and date of . Patient wants a fire boat engineer in the room during during the visit. no Insulation Mechanic na in room during visit Images from [...] 11/05/2022 11:01 AM documented in this encounter [facility] 11-04-2022 Note Addended by: MASOUD COELLO on: 11/05/2022 11:02 AM Modules accepted: Level of Service [facility] 09-30-2022 History of Presen t illness Narrative Images from the original note were not included. [facility] [address] [facility] [address] [facility] [address] [facility] [address] Dept: [phone] Dept Loc: [phone] Visit type: Established Patient Reason for Visit: [...] Elastic Bandages & Supports (Medical Compression Stockings[place] [facility], Disp: , Rfl: furosemide (Lasix) 40 [...] TSH VITAMIN B12: No results found for: [id number] No results found for: PHENYTOIN, PHENOBARB, VALPROATE, CBMZ No components found for: TOPIRA @RESULTINGLABINFO@ No results found for: LEVETIRACETA, FERRITIN, CRP, LOREE, ANCA No results found for: GUNNAR, IMMUNOGLOBUL, OLIGOBANDS No results found for: [id number], HEPCAB No results found for: CRP, ANATITER, ANCA, ANCA FERRITIN: No results found for: FERRITIN ---- XR CERVICAL SPINE W OBLIQUES FLEXION AND EXTENSION Patient Name: KAREN CARLSON [employer]#: [id number] Diagnostic Radiology ACCESSION EXAM DATE/TIME PROCEDURE ORDERING PROVIDER [id number] 04/26/2022 16:02 EDT CR Spine Cervical Comp KAREN BOSS w/ Obliques CPT code 87368 Reason For Exam (CR Spine Cervical Comp [...] arranging for studies. documented in this encounter [facility] documented in this encounter [facility] Work Phone: Evaluation note* Diagnosis Cervicalgia documented in this encounter [facility] Work Phone: Evaluation note* Diagnosis Parkinson's disease (HCC)- Primary Paralysis agitans Dementia due to Parkinson's disease, unspecified dementia severity, unspecified whether behavioral, psychotic, or mood disturbance or anxiety ([facility]) [facility] Diagnosis Penetrating foot wound, right, initial encounter- Primary Unspecified open wound, left foot, initial encounter documented [facility] this encounter [facility]* Diagnosis Penetrating foot wound, right, initial encounter documented [facility] Diagnosis Penetrating foot wound, right, initial encounter- Primary Unspecified open wound, left foot, initial encounter [facility] Diagnosis Penetrating wound of right foot, subsequent encounter- Primary Wound of left foot Open wound of right great toe, initial encounter documented in this encounter [facility]* Diagnosis Acute cystitis with hematuria- Primary Urinary tract infection symptoms documented in this [facility]* Diagnosis Open wound [...] of skin (HCC) documented in [facility]* Diagnosis Paroxysmal atrial fibrillation (CMS/HCC) (HCC)- Primary Atrial fibrillation Parkinson's disease (HCC) Paralysis agitans Dementia due to Parkinson's disease, unspecified dementia severity, unspecified whether behavioral, psychotic, or mood disturbance or anxiety (HCC) Restless legs syndrome Restless legs syndrome (RLS) documented [facility] Diagnosis Callus under metatarsal head- Primary Nasal congestion Other diseases of nasal cavity and sinuses documented in this [facility]* Diagnosis Medicare annual wellness visit, subsequent- [...] (severe) obesity due to excess calories ([facility]* Diagnosis Paroxysmal atrial fibrillation (CMS/HCC) (HCC)- Primary Atrial fibrillation Syncope and collapse Parkinson's disease (HCC) Paralysis agitans Dementia due to Parkinson's disease, unspecified dementia severity, unspecified whether behavioral, psychotic, or mood disturbance or anxiety ([facility]) 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 documented in this [facility]* Diagnosis 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 documented in this [facility]* Diagnosis Longstanding persistent atrial fibrillation (HCC)- Primary Epistaxis Frequent falls documented in this encounter [facility]* Diagnosis Dependent edema- Primary Edema documented in this encounter [facility]* Diagnosis Parkinson's disease without dyskinesia or fluctuating manifestations- Primary Binocular visual disturbance [facility]* Diagnosis Urinary frequency- Primary Burning with urination Dysuria [facility]* Diagnosis Parkinson's disease Paralysis agitans [facility]* Diagnosis Recurrent UTI- Primary Urinary tract infection, site not specified Sebaceous cyst [facility] Diagnosis Recurrent UTI- Primary Urinary tract infection, site not specified Sebaceous cyst [facility]* Diagnosis Mild dementia due to Parkinson's disease, unspecified whether behavioral, psychotic, or mood disturbance or anxiety ([facility]) [facility]* Diagnosis Parkinson's disease without dyskinesia or fluctuating manifestations- Primary Primary hypertension Unspecified essential hypertension Recurrent UTI Urinary tract infection, site not specified Chronic kidney disease, stage 3a ([facility]) [facility] Consultation (Routine) - Pending Review Specialty Diagnoses / Procedures Referred By Contac t Referred To Contact Cardiology Diagnoses Paroxysmal atrial fibrillation (CMS/HCC) (HCC) Procedures [place] OFFICE/OUTPATIENT [facility] 60-74 MINUTES Karen Boss MD [address] [facility] [address] [place] [address] Bladimir Sequeira MD [address] [facility] [address] [place] [address] Referral ID Status Reason Start Date Expiration Date Visits Requested Visits Authorized [id number] Pending Review Specialty Services Required 12/16/2022 12/16/2023 1 1 [facility] Consultation (Routine) - Pending Review Specialty Diagnoses / Procedures Referred By Contac t Referred To Contact Podiatry Diagnoses Callus under metatarsal head Procedures [place] OFFICE/OUTPATIENT [facility] 60-74 MINUTES Mildred Jasmine TRUCK DRIVER INSTRUCTOR - NUTRITIONAL YEAST SUPERVISOR [address] [facility] [place] [address] Terry Taylor, GAETANO [address] [address] Referral ID Status Reason Start Date Expiration Date Visits Requested Visits Authorized [id number] Pending Review Specialty Services Required 01/10/2023 01/10/2024 1 1 Electronically signed by Mildred Jasmine TRUCK DRIVER INSTRUCTOR - NUTRITIONAL YEAST SUPERVISOR at 01/10/2023 11:22 AM EDT [facility] Consultation (Routine) - Pending Review Specialty Diagnoses / Procedures Referred By Contac t Referred To Contact Neurosurgery Diagnoses 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 Karen Boss MD [address] [facility] [address] [place] [address] Naldo Longoria MD [address] [place] [address] Referral ID Status Reason Start Date Expiration Date Visits Requested Visits Authorized [id number] Pending Review Specialty Services Required 02/18/2023 02/18/2024 1 1 * Imaging (Routine) - Pending Review Specialty Diagnoses / Procedures Referred By Contac t Referred To Contact Radiology Diagnoses 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 Procedures MR cervical spine wo contrast Karen Boss MD [address] [facility] [address] [place] [address] Referral ID Status Reason Start Date Expiration Date V isits Requested Visits Authorized [id number] Pending Review 02/18/2023 08/17/2023 1 1 * Consultation (Urgent) - Pending Review Specialty Diagnoses / Procedures Referred By Contac t Referred To Contact Cardiology Diagnoses Paroxysmal atrial fibrillation (CMS/HCC) (HCC) Syncope and collapse Procedures [place] OFFICE/OUTPATIENT [facility] 60-74 MINUTES Karen Boss MD [address] [facility] [address] [place] [address] Jerry Paulson MD [address] [facility] [place] [address] Referral ID Status Reason Start Date Expiration Date Visits Requested Visits Authorized [id number] Pending Review Specialty Services Required 02/18/2023 02/18/2024 1 1 [facility] Summary Purpose Family History No Family History Records FoundNo Family History Records FoundNo Family History Records FoundNo Family History Records FoundNo Family History Records Found Advance Directives No Advanced Directives Records FoundDocuments on File Type Date Recorded Patient Crossword Puzzle Maker Expl anation Advance Directives and Living Will Power of Director Of Neurology Documents on File Type Date Recorded Patient Crossword Puzzle Maker Expl anation ACP-Advance Directive ACP-Power of Director Of Neurology Documents on File Type Date Recorded Patient Crossword Puzzle Maker Expl anation Living Will Documentation 11/04/2022 4:09 PM Documents on File Type Date Recorded Patient Crossword Puzzle Maker Expl anation Living Will Documentation 11/04/2022 4:09 [...] Karen Boss MD [address] [place] [address] Specialty Diagnoses / Procedures Referred By Contac t Referred To Contact Diagnoses 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 DATE CREATED AUTHOR AUTHOR'S ORGANIZ ATION 04/30/2022 [facility] DATE CREATED AUTHOR AUTHOR'S ORGANIZ ATION 06/29/2023 [facility] DATE CREATED AUTHOR AUTHOR'S ORGANIZ ATION 08/05/2023 [facility] Care Teams (unrecognized sec tion and content) Ventilating Expert Relationship Specialty Start Date End Date Masoud Coello MD [address] [place] [address] PCP - General 05/19/15 Ventilating Expert Relationship Specialty Start Date End Date Masoud Coello MD [address] [place] [address] PCP - General 05/19/15 Ventilating Expert Relationship Specialty Start Date End Date Masoud Coello MD [address] [facility] [place] [address] PCP - General 05/19/15 Ventilating Expert Relationship Specialty Start Date End Date Masoud Coello MD [facility] [place] [address] PCP - General 05/19/15 Ventilating Expert Relationship Specialty Start Date End Date Masoud Coello MD [facility] [place] [address] PCP - General 05/19/15 Ventilating Expert Relationship Specialty Start Date End Date [facility] [place] [address] PCP - General 05/19/15 Ventilating Expert Relationship Specialty Start Date End Date Masoud Coello MD [facility] [place] [address] PCP - General 05/19/15 Ventilating Expert Relationship Specialty Start Date End Date Masoud Coello MD [facility] [place] [address] PCP - General 05/19/15 Ventilating Expert Relationship Specialty Start Date End Date Masoud Coello MD [facility] [place] [address] PCP - General 05/19/15 Ventilating Expert Relationship Specialty Start Date End Date Masoud Coello MD [facility] [place] [address] PCP - General 05/19/15 Ventilating Expert Relationship Specialty Start Date End Date Masoud Coello MD [address] [place] [address] PCP - General 05/19/15 Ventilating Expert Relationship Specialty Start Date End Date Masoud Coello MD [address] [place] [address] PCP - General 05/19/15 Ventilating Expert Relationship Specialty Start Date End Date Masoud Coello MD [address] [place] [address] PCP - General 05/19/15 Ventilating Expert Relationship Specialty Start Date End Date Masoud Coello MD [address] [place] [address] PCP - General 05/19/15 Ventilating Expert Relationship Specialty Start Date End Date Masoud Coello MD [address] [place] [address] PCP - General 05/19/15 Ventilating Expert Relationship Specialty Start Date End Date Masoud Coello MD [address] [place] [address] PCP - General 05/19/15 Ventilating Expert Relationship Specialty Start Date End Date Masoud Coello MD [address] [facility] [place] [address] PCP - General 05/19/15 Ventilating Expert Relationship Specialty Start Date End Date Masoud Coello MD [address] [facility] [place] [address] PCP - General 05/19/15 Ventilating Expert Relationship Specialty Start Date End Date Masoud Coello MD [address] [facility] [place] [place] [address] PCP - General 05/19/15 Ventilating Expert Relationship Specialty Start Date End Date Masoud Coello [address] [facility] [place] [address] PCP - General Family Medicine 01/22/13 Ventilating Expert Relationship Specialty Start Date End Date Masoud Coello MD [address] [facility] [place] [place] [address] PCP - General 05/19/15 Ventilating Expert Relationship Specialty Start Date End Date Masoud Coello MD [address] [facility] [place] [place] [address] PCP - General 05/19/15 Ventilating Expert Relationship Specialty Start Date End Date Masoud Coello MD [address] [facility] [place] [place] [address] PCP - General 05/19/15 Ventilating Expert Relationship Specialty Start Date End Date Masoud Coello MD [address] [facility] [place] [place] [address] PCP - General 05/19/15 Ventilating Expert Relationship Specialty Start Date End Date Masoud Coello MD [address] [facility] [place] [address] PCP - General 05/19/15 Reason for Visit [...] syndrome Karen Boss MD [address] [place] [address] [place] [address] Naldo Longoria MD [address] [place] [address] Referral ID Status Reason Start Date Expiration Date V isits Requested Visits Authorized [id number] Closed Specialty Services Required 02/18/2023 02/18/2024 1 [...] or prosecute any alcohol or drug abuse patient.[facility] FOR RECORDS PERTAINING TO PATIENTS WHO [...] BE BASED ON THE PRIMARY CLINICAL RECORDS. [email or web address] provides no warranty or guarantee of the accuracy or completeness of information in this document.
[2023-08-05] MEDS: Latanoprost 0.005% 1 Bottle 1 DRP RIGHT EYE (21:34)
[2023-08-05] MEDS: CARBIDOPA/LEVODOPA CR 50/200 Tablet PO (21:35)
[2023-08-05] MEDS: Carbidopa/Levodopa 25/100 Tablet PO (21:36)
[2023-08-05] MEDS: Memantine Hydrochloride 10 MG Tablet PO (21:37)
[2023-08-05] MEDS: Dorzolamide HCL/Timolol 10 ml Bottle 1 DRP OPHTHALMIC (21:38)
[2023-08-06] VITALS (18 sets, daily range): BP systolic 101–131; BP diastolic 60–87; PULSE 84–102; RESP 13–23; TEMP 36.6–37.2; O2SAT 91–97; BMI 32.0
[2023-08-06 05:42] LABS: Absolute Lymphocyte Count 0.24 X10^3/uL (0.83-4.51); Absolute Neutrophil Count 8.3 X10^3/uL (2.0-7.7); Basophil# 0.03 X10^3/uL; Basophil% 0.3 % (0-1); Eosinophil# 0.04 X10^3/uL; Eosinophils% 0.4 % (0-5); Hematocrit 40.5 % (40-54); Hemoglobin 13.3 g/dL (13.0-16.5); Lymphocyte # 0.24 X10^3/ul (0.83-4.51); Lymphocyte % 2.6 % (19-41); Mean Corp Hgb Conc 32.8 g/dL (32-36); Mean Corpuscular Hgb 29.7 pg (27.0-32.0); Mean Corpuscular Volume 90.4 fL (80-94); Mean Platelet Vol. 10.1 fl (6.2-12.0); Monocyte# 0.57 X10^3/uL; Monocyte% 6.2 % (0-10); NRBC Flagged by Analyzer 0 % (0-5); Neutrophil # 8.28 X10^3/uL (2.7-7.7); Neutrophil % 89.4 % (47-70); POSITIVE DIFFERENTIAL YES; Platelet Count 157 K/mm3 (150-450); RBC Distribution Width CV 16.7 % (11.6-14.6); RBC Distribution Width SD 54.9 fl (35.1-43.9); Red Blood Count 4.48 M/mm3 (4.6-6.2); White Blood Count 9.3 K/mm3 (4.4-11.0)
[2023-08-06] MEDS: Carbidopa/Levodopa 25/100 Tablet PO ×2 (05:53→20:45)
[2023-08-06] MEDS: Cefepime HCl 2 GM in 0.9% Normal Saline (100mL MB+) 100 ML IV ×3 (05:53→20:41)
[2023-08-06] MEDS: CARBIDOPA/LEVODOPA CR 50/200 Tablet PO ×4 (05:54→20:44)
[2023-08-06] MEDS: 0.9% Normal Saline (1000mL) 1,000 ML 150 ML IV ×3 (05:55→21:56)
[2023-08-06] MEDS: prednisoLONE eye drops (5 mL) 1 DROP OPTH.BTL 1 DRP LEFT EYE ×2 (05:55→17:03)
[2023-08-06 06:09] LABS: ALB/GLOB Ratio 0.7 RATIO (0.9-2.4); AST(SGOT) 15 U/L (15-37); Alanine Aminotransfer ALT/SGPT 8 U/L (16-61); Albumin, Serum 2.3 g/dL (3.2-5.0); Alkaline Phosphatase 66 U/L (45-117); Anion Gap 2 (5-15); BUN 17 mg/dL (7-18); BUN/Creat Ratio 17.1 RATIO (10-20); Chloride 112 mmol/L (98-107); EST Glomerular Filtration Rate 77 mL/min (>60); Est Glom Filt Rate - Afr Amer 93 mL/min (>60); Estimated Creatinine Clearance 65.05 ml/min; Globulin 3.4 g/dL (2.2-4.2); Glucose 112 mg/dL (74-106); Potassium 3.4 mmol/L (3.5-5.1); Protein, Total 5.7 g/dL (6.4-8.2); Sodium Level 139 mmol/L (136-145); Thyroid Stim Hormone (TSH) 0.37 uIU/mL (0.358-3.74)
--- NOTE | 2023-08-06 07:02 | PN.HOSP_ITS ---
Subjective Subjective Feeling better overall. Objective Data Objective Data Vital Signs: Vital Signs Temp Pulse Resp BP Pulse Ox O2 Del Method O2 Flow Rate 36.8 C 90 13 130/76 H 94 Nasal Cannula 3 08/06/23 05:00 08/06/23 07:00 08/06/23 07:00 08/06/23 07:00 08/06/23 07:00 08/06/23 07:00 08/06/23 07:00 Oxygen Flow Rate (L/min) 3 Oxygen Delivery Method Nasal Cannula Weight: 92.8 kg Body Mass Index (BMI) 32.0 Intake & Output: Intake and Output for Last 24 Hours 08/04/23 08/05/23 08/06/23 23:59 23:59 23:59 Intake Total 4500 / 5000 1407.5 / 1407.5 Output Total 325 / 325 Balance 4500 / 4675 1082.5 / 1082.5 Lab / Micro Data 08/06/23 05:35 08/06/23 05:35 Labs: Laboratory Results - last 24 hr 08/05/23 12:21: PT 14.5, INR 1.1, APTT 32.6, Sodium 139, Potassium 3.8, Chloride 108 H, Carbon Dioxide 27.0, Anion Gap 4 L, BUN 20 H, Creatinine 1.19, Estim Creat Clear Calc 54.81, Est GFR (MDRD) Af Amer 76, Est GFR (MDRD) Non-Af 63, BUN/Creatinine Ratio 16.8, Glucose 127 H, Calcium 8.8, Total Bilirubin 1.10 H, AST 11 L, ALT 7 L, Alkaline Phosphatase 75, Total Protein 6.5, Albumin 2.7 L, Globulin 3.8, Albumin/Globulin Ratio 0.7 L, Total PSA 10.20 H 08/05/23 12:55: WBC 8.9, RBC 4.73, Hgb 14.0, Hct 43.0, MCV 90.9, MCH 29.6, MCHC 32.6, RDW Std Deviation 54.6 H, RDW Coeff of Manuela 16.3 H, Plt Count 94 L, MPV 10.9, Immature Gran % (Auto) 1.400 H, Neut % (Auto) 91.3 H, Lymph % (Auto) 1.8 L , [place] % (Auto) 5.2, Eos % (Auto) 0.1, Baso % (Auto) 0.2, Absolute Neuts (auto) 8.1 H, Absolute Lymphs (auto) 0.16 L, Nucleated RBC % 0, Differential Comment SCANNED, Platelet Estimate SLT DEC, Plt Morphology Comment LARGE, Lactic Acid 1.8 08/05/23 13:20: Urine Color Yellow, Urine Clarity Cloudy, Urine pH 7.0, Ur Specific [place] 1.010, Urine Protein 30 H, Urine Glucose (UA) Normal, Urine Ketones 5 H, Urine Occult Blood 50 H, Urine Nitrite Positive H, Urine Bilirubin 1 H, Urine Urobilinogen 1 H, Ur Leukocyte Esterase 500 H, Urine RBC 5-10 SEEN, Urine WBC >100 SEEN, Ur Squamous Epith Cells 0 SEEN, Urine Bacteria 2+, Urine Mucus 0 SEEN 08/06/23 05:35: WBC 9.3, RBC 4.48 L, Hgb 13.3, Hct 40.5, MCV 90.4, MCH 29.7, MCHC 32.8, RDW Std Deviation 54.9 H, RDW Coeff of Manuela 16.7 H, Plt Count 157, MPV 10.1, Immature Gran % (Auto) 1.100 H, Neut % (Auto) 89.4 H, Lymph % (Auto) 2.6 L , [place] % (Auto) 6.2, Eos % (Auto) 0.4, Baso % (Auto) 0.3, Absolute Neuts (auto) 8.3 H, Absolute Lymphs (auto) 0.24 L, Nucleated RBC % 0, Sodium 139, Potassium 3.4 L, Chloride 112 H, Carbon Dioxide 25.0, Anion Gap 2 L, BUN 17, Creatinine 1.00, Estim Creat Clear Calc 65.05, Est GFR (MDRD) Af Amer 93, Est GFR (MDRD) Non-Af 77, BUN/Creatinine Ratio 17.1, Glucose 112 H, Calcium 8.0 L, Total Bilirubin 0.90, AST 15, ALT 8 L, Alkaline Phosphatase 66, Total Protein 5.7 L, Albumin 2.3 L, Globulin 3.4, Albumin/Globulin Ratio 0.7 L, TSH 0.37 Micro: Microbiology 08/05/23 12:38 Mucosa - Nose SARS-CoV-2, Influenza & RSV (PCR) - Final Radiography Diagnostic Testing: Radiology Impression Chest X-Ray 08/05/23 12:58 IMPRESSION: Mild cardiomegaly. No acute infiltrate is seen. Electronically Signed: Fausto Gross MD at 13:24 EST , Renal Ultrasound 08/05/23 16:19 IMPRESSION: Negative renal ultrasound. Electronically Signed: Clinton Harvey DO at 18:12 EST , Physical Exam Const alert Resp normal respiratory effort, no retractions, no use of accessory muscles and clear to auscultation bilaterally Cardio regular rate, regular rhythm, S1 normal heart sound and S2 normal heart sound GI normal to inspection, nondistended, normoactive bowel sounds, soft to palpation, non-tender and non-distended Assessment & Plan Assessment/Plan (1) UTI (urinary tract infection): (2) Hypotension: (3) Persistent atrial fibrillation: PLAN: Plan Urinary tract infection * failed outpt TMP/SMX * on cefepime * follow up cultures, UCx thus far growing out GNR. Hypotension * resolved * not septic shock. Chronic conditions: * Hx prostate cancer and BPH-On tamsulosin-Had Prostate cancer in 2005 and underwent radiation, has prostate cancer back and follows with Dr. Prather every 3 months for PSAs measured-Has appoint with Dr. Prather on Tuesday * Parkinson's disease-Continue home medications-First doses now * Glaucoma-Continue home eye drops if able * A-fib/Hx DVT-Holding Cardizem-EKG A-fib with heart rate of 66-Not on blood thinners due to recurrent falls DVT ppx: SCDs Charges/Coding Visit Charges Inpatient E&M: 32359 Subs Hosp L2
[2023-08-06] MEDS: Dorzolamide HCL/Timolol 10 ml Bottle 1 DRP OPHTHALMIC ×2 (08:13→23:08)
[2023-08-06] MEDS: Memantine Hydrochloride 10 MG Tablet PO ×2 (08:14→20:44)
[2023-08-06] MEDS: Pramipexole Di-HCl 1 MG Tablet PO ×4 (08:14→20:45)
[2023-08-06] MEDS: Tamsulosin HCl 0.4 MG Capsule 0.400000000000000022 MG PO (08:14)
[2023-08-06] MEDS: Enoxaparin 40 MG/0.4 ML Syringe SC (08:14)
[2023-08-06] MEDS: Aspirin E.C. 81 MG Tablet PO (08:15)
[2023-08-06] MEDS: dilTIAZem CD 120 MG Capsule PO (11:32)
[2023-08-06] MEDS: Calcium Carb/Vitamin D 1 TABLET Tablet PO (11:32)
--- NOTE | 2023-08-06 11:32 | CASEMGMT ---
LUIS ZAYAS Assessment: Face to Face with pt for initial transition planning/care coordination assessment. RN MARQUEZ introduced self and role at [facility], pt voices understanding and consents to assessment. Pt is A&O x4 and answers all questions appropriately at this time. Pt sitting in w/c soon to be trf'd to other floor. Pt dtr present in room. Pt agreeable to assessment with dtr present. Care providers, pharmacy, and demographics verified/updated. Admitting Dx: UTI PCP:Shelley Specialists:Yamilka, uro; Gera, neuro; [place] pain mgmt; Martin, pod Preferred Pharmacy: [facility] Insurance: Fair value [facility] Prescription Benefit: yes LNOK: Snow Carlson,; Joaquina Niko, dtr Living Arrangements: Pt lives with in a single story home with 2 steps to enter with a grab bar. Pt reports his assists him with bathing and dressing. States she also handles home mgmt tasks. Pt states he does exercises daily and gets down on the floor and is able to get self back up. Pt denies concerns at home. Transportation: Pt provides transportation. DME:w/c, walker, shower chair, [facility] HHC/SNF: Has had [facility] HHC in the past, denies SNF stays Pt states no concerns with going home at time of dc. Pt dtr concerned that pt was in ER last time and sent home without services and pt did struggle. Discussed HH again. Pt is agreeable to this. He states he would want [facility] HHC and declines need for a list of other agencies. Discussed having SN, PT and OT although therapy evals pending. Pt and dtr agreeable to this. Pt states no further concerns/needs. CM to follow. Advised pt to ask CM if any further question/concerns/needs arise, voices understanding. Pt Goal: Home with [facility] HHC Plan: Home with HHC, tc to [facility] intake, vm left with referral information, will await response.
[2023-08-06] MEDS: Ascorbic Acid 500 MG Tablet 1000 MG PO (11:36)
[2023-08-06] MEDS: Acetaminophen 325 MG Tablet 650 MG PO (14:26)
[2023-08-06] MEDS: Latanoprost 0.005% 1 Bottle 1 DRP RIGHT EYE (20:44)
[2023-08-06] MEDS: Albuterol 2.5 MG/3 ML VIAL.NEB. INHALATION (21:11)
[2023-08-07] VITALS (9 sets, daily range): BP systolic 104–125; BP diastolic 55–86; PULSE 83–100; RESP 16–20; TEMP 36.6–37; O2SAT 94–98; BMI 33.5
[2023-08-07] MEDS: 0.9% Normal Saline (1000mL) 1,000 ML 150 ML IV (04:32)
[2023-08-07] MEDS: Acetaminophen 325 MG Tablet 650 MG PO (04:43)
[2023-08-07] MEDS: prednisoLONE eye drops (5 mL) 1 DROP OPTH.BTL 1 DRP LEFT EYE ×2 (04:43→17:38)
[2023-08-07] MEDS: Carbidopa/Levodopa 25/100 Tablet PO ×2 (04:44→20:43)
[2023-08-07] MEDS: CARBIDOPA/LEVODOPA CR 50/200 Tablet PO ×4 (04:44→20:43)
[2023-08-07] MEDS: Cefepime HCl 2 GM in 0.9% Normal Saline (100mL MB+) 100 ML IV (05:57)
--- NOTE | 2023-08-07 07:10 | PN.HOSP_ITS ---
Reason for Visit Reason for Visit: Diagnoses Persistent atrial fibrillation (08/05/23) Hypotension, unspecified (08/05/23) Urinary tract infection, site not specified (08/05/23) Subjective Subjective Feeling well. Objective Data Objective Data Vital Signs: Vital Signs Temp Pulse Resp BP Pulse Ox O2 Del Method O2 Flow Rate 36.7 C 98 18 115/83 H 94 Nasal Cannula 2 08/07/23 02:59 08/07/23 02:59 08/07/23 02:59 08/07/23 02:59 08/07/23 02:59 08/07/23 04:33 08/07/23 04:33 Oxygen Flow Rate (L/min) 2 Oxygen Delivery Method Nasal Cannula Weight: 97.3 kg Body Mass Index (BMI) 33.5 Intake & Output: Intake and Output for Last 24 Hours 08/05/23 08/06/23 08/07/23 23:59 23:59 23:59 Intake Total 4500 / 5000 4507.5 / 4507.5 1210 / 1210 Output Total 1175 / 1175 150 / 150 Balance 4500 / 4675 3332.5 / 3332.5 1060 / 1060 Lab / Micro Data 08/06/23 05:35 08/07/23 08:20 Micro: Microbiology 08/05/23 13:20 Urine, Clean Catch Urine Culture - Preliminary Gram negative mady 08/05/23 12:38 Mucosa - Nose SARS-CoV-2, Influenza & RSV (PCR) - Final Physical Exam Const alert and no apparent distress Resp normal respiratory effort, no retractions, no use of accessory muscles and clear to auscultation bilaterally Cardio regular rate, regular rhythm, S1 normal heart sound and S2 normal heart sound GI normal to inspection, nondistended, normoactive bowel sounds, soft to palpation, non-tender and non-distended Neuro Sensorium / Orientation: awake and alert Assessment & Plan Assessment/Plan (1) UTI (urinary tract infection): (2) Hypotension: (3) Persistent atrial fibrillation: PLAN: Plan Urinary tract infection * failed outpt TMP/SMX * UCx shows Proteus mirabilis, resistant to only nitrofurantoin. * change abx from cefepime to cefdinir Hypotension * resolved * not septic shock. Debility * 2/2 UTI and hindered by underlying Parkinson's disease. * PT OT eval. Chronic conditions: * Hx prostate cancer and BPH-On tamsulosin-Had Prostate cancer in 2005 and underwent radiation, has prostate cancer back and follows with Dr. Prather every 3 months for PSAs measured-Has appoint with Dr. Prather on Tuesday * Parkinson's disease-Continue home medications * Glaucoma-Continue home eye drops if able * A-fib/Hx DVT-Holding Cardizem-EKG A-fib with heart rate of 66-Not on blood thinners due to recurrent falls DVT ppx: SCDs Charges/Coding Visit Charges Inpatient E&M: 71328 Subs Hosp L2
[2023-08-07 08:49] LABS: Anion Gap 2 (5-15); BUN 15 mg/dL (7-18); BUN/Creat Ratio 20.4 RATIO (10-20); Calcium,Total 8.5 mg/dL (8.5-10.1); Chloride 118 mmol/L (98-107); Creatinine, Serum 0.74 mg/dL (0.70-1.30); EST Glomerular Filtration Rate 109 mL/min (>60); Est Glom Filt Rate - Afr Amer 132 mL/min (>60); Estimated Creatinine Clearance 83.22 ml/min; Glucose 130 mg/dL (74-106); Potassium 3.9 mmol/L (3.5-5.1); Sodium Level 143 mmol/L (136-145)
[2023-08-07] MEDS: Dorzolamide HCL/Timolol 10 ml Bottle 1 DRP OPHTHALMIC ×2 (09:29→20:42)
[2023-08-07] MEDS: Aspirin E.C. 81 MG Tablet PO (09:30)
[2023-08-07] MEDS: dilTIAZem CD 120 MG Capsule PO (09:30)
[2023-08-07] MEDS: Pramipexole Di-HCl 1 MG Tablet PO ×4 (09:31→20:43)
[2023-08-07] MEDS: Ascorbic Acid 500 MG Tablet 1000 MG PO (09:31)
[2023-08-07] MEDS: Enoxaparin 40 MG/0.4 ML Syringe SC (09:31)
[2023-08-07] MEDS: Memantine Hydrochloride 10 MG Tablet PO ×2 (09:31→20:43)
[2023-08-07] MEDS: Calcium Carb/Vitamin D 1 TABLET Tablet PO (09:31)
[2023-08-07] MEDS: Tamsulosin HCl 0.4 MG Capsule 0.400000000000000022 MG PO (09:31)
[2023-08-07] MEDS: Ensure Plus High Protein 120 ML LIQUID PO (09:41)
[2023-08-07] MEDS: Albuterol 2.5 MG/3 ML VIAL.NEB. INHALATION ×2 (10:23→17:58)
[2023-08-07] MEDS: Latanoprost 0.005% 1 Bottle 1 DRP RIGHT EYE (20:43)
[2023-08-07] MEDS: MELATONIN 3 MG TABLET PO (20:44)
[2023-08-07] MEDS: Cefdinir 300 MG Capsule PO (20:45)
[2023-08-08] VITALS (9 sets, daily range): BP systolic 110–123; BP diastolic 69–83; PULSE 82–93; RESP 16–22; TEMP 36.3–36.6; O2SAT 91–97; BMI 33.5
[2023-08-08] MEDS: Albuterol 2.5 MG/3 ML VIAL.NEB. INHALATION (03:32)
[2023-08-08] MEDS: Carbidopa/Levodopa 25/100 Tablet PO ×2 (05:10→21:46)
[2023-08-08] MEDS: CARBIDOPA/LEVODOPA CR 50/200 Tablet PO ×4 (05:10→21:47)
[2023-08-08] MEDS: prednisoLONE eye drops (5 mL) 1 DROP OPTH.BTL 1 DRP LEFT EYE ×2 (05:10→17:54)
[2023-08-08] MEDS: Pramipexole Di-HCl 1 MG Tablet PO ×4 (09:08→21:46)
[2023-08-08] MEDS: Memantine Hydrochloride 10 MG Tablet PO ×2 (09:08→21:47)
[2023-08-08] MEDS: Aspirin E.C. 81 MG Tablet PO (09:08)
[2023-08-08] MEDS: Ascorbic Acid 500 MG Tablet 1000 MG PO (09:08)
[2023-08-08] MEDS: Cefdinir 300 MG Capsule PO ×2 (09:08→21:47)
[2023-08-08] MEDS: dilTIAZem CD 120 MG Capsule PO (09:08)
[2023-08-08] MEDS: Calcium Carb/Vitamin D 1 TABLET Tablet PO (09:08)
[2023-08-08] MEDS: Enoxaparin 40 MG/0.4 ML Syringe SC (09:09)
[2023-08-08] MEDS: Dorzolamide HCL/Timolol 10 ml Bottle 1 DRP OPHTHALMIC ×2 (09:09→21:47)
[2023-08-08] MEDS: Ensure Plus High Protein 120 ML LIQUID PO ×3 (09:09→17:55)
--- NOTE | 2023-08-08 10:24 | CASEMGMT ---
Addendum entered by Cyndie Manrique 08/08/23 14:32: Pt did not qualify for home oxygen. Addendum entered by Cyndie Manrique 08/08/23 12:34: LUIS ZAYAS into pt room, pt and family state they have decided to go home with [facility]. Discussed dc'ing with home oxygen if needed. Provided pt with a local verbal list of DME providers, pt chose [employer]. Discussed home oxygen instructions for set up should this be needed, pt and dtr verbalize understanding. Pt dtr states she has a pox pt can use. Pt and dtr deny further needs at this time. Addendum entered by Cyndie Manrique 08/08/23 11:40: LUIS ZAYAS into pt room to make aware that has accepted. Pt with family at bedside. Pt states he would like to go home with [facility] but his family is questioning if he should go to a SNF. Discussed option of both. Pt and family would like to discuss for a little bit and LUIS ZAYAS to check back. Original Note: Received tc from Kaitlynn at [facility], they have accepted pt for SOC on Tuesday.
[2023-08-08] MEDS: Tamsulosin HCl 0.4 MG Capsule 0.400000000000000022 MG PO (10:28)
[2023-08-08] MEDS: Furosemide 40 MG Tablet PO (14:04)
--- NOTE | 2023-08-08 16:55 | PN.HOSP_ITS ---
Reason for Visit Reason for Visit: Diagnoses Persistent atrial fibrillation (08/05/23) Hypotension, unspecified (08/05/23) Urinary tract infection, site not specified (08/05/23) Subjective Subjective No acute events overnight. Patient seen at bedside this morning, and daughter present. Patient was sitting comfortably in bedside chair, conversing normally, no acute distress. Patient was breathing comfortably on 2 L nasal cannula. Patient family states that he has had fairly significant shortness of breath with exertion since admission. Patient does not wear oxygen at home, has no history of lung disease. He has had shortness of breath with exertion secondary to volume overload from heart failure in the past. States he used the albuterol inhaler yesterday evening with some relief of his symptoms. Patient otherwise states his dysuria has largely resolved. He denies any fevers or chills in the last few days. Denies any symptoms of orthostatic hypotension. No other acute concerns this time. Objective Data Objective Data Vital Signs: Vital Signs Temp Pulse Resp BP Pulse Ox O2 Del Method O2 Flow Rate 97.8 F 82 18 111/69 97 Nasal Cannula 2 08/08/23 15:05 08/08/23 15:05 08/08/23 15:05 08/08/23 15:05 08/08/23 15:10 08/08/23 15:10 08/08/23 15:10 Oxygen Flow Rate (L/min) [ 0 AMBULATING on Room Air] Oxygen Flow Rate (L/min) [At 2 REST with Oxygen] Oxygen Flow Rate (L/min) [At 0 REST on Room Air] Oxygen Flow Rate (L/min) 2 Oxygen Delivery Method Nasal Cannula Weight: 97.1 kg Body Mass Index (BMI) 33.5 Intake & Output: Intake and Output for Last 24 Hours 08/06/23 08/07/23 08/08/23 23:59 23:59 23:59 Intake Total 4507.5 / 4507.5 3400 / 3400 480 / 480 Output Total 1175 / 1175 900 / 900 500 / 500 Balance 3332.5 / 3332.5 2500 / 2500 -20 / -20 Lab / Micro Data 08/06/23 05:35 08/07/23 08:20 Micro: Microbiology 08/05/23 12:35 Blood Culture (Wb) - Left Forearm Blood Culture - Preliminary No growth in 48 hours. 08/05/23 12:21 Blood Culture (Wb) - Right Forearm Blood Culture - Preliminary No growth in 48 hours. 08/05/23 13:20 Urine, Clean Catch Urine Culture - Final Proteus mirabilis 08/05/23 12:38 Mucosa - Nose SARS-CoV-2, Influenza & RSV (PCR) - Final Physical Exam Const alert, oriented x3 and no apparent distress Constitutional Narrative: Elderly male, obese, fatigued appearing, otherwise sitting comfortably bedside chair, conversing normally, no acute distress. General Appearance: cooperative and comfortable HEENT normocephalic, head/scalp atraumatic, hearing grossly normal bilaterally, nasal mucous membranes and turbinates normal and moist oral mucous membranes Eyes PERRL, EOMs intact bilaterally and conjunctivae normal Neck full ROM, no lymphadenopathy and supple Lymph Lymphatic: no lymphadenopathy noted Chest inspection of chest normal Resp Resp Narrative: No increased work of breathing noted on 2 L nasal cannula. Good air movement bilaterally throughout. Cardio no murmurs and peripheral pulses 2+ throughout Cardio Narrative: A-fib, rate controlled. GI normal to inspection, nondistended, normoactive bowel sounds, soft to palpation, non-tender and non-distended Back/Spine normal ROM Extremity normal to inspection and full ROM Extremity Narrative: +2-3 lower extremity pitting edema. Skin no rashes or lesions noted Neuro no focal motor deficits and no sensory deficits noted Speech: speech normal Psych mental status grossly normal Assessment & Plan Assessment/Plan (1) UTI (urinary tract infection): (2) Dyspnea on exertion: (3) Lower extremity edema: PLAN: Plan Patient is a 78-year-old male who presented to [facility] ED on 08/05/2023 with dysuria and fevers. 1. UTI Presented with fever with peak 100.9 F, hypotension as noted below. Notably had no tachycardia, no evidence of endorgan dysfunction, did not meet sepsis criteria. UA showed 500 leukocyte esterase, positive nitrates, 2+ bacteria. Renal ultrasound with no evidence of hydronephrosis. Urine culture grew Proteus sensitive to ceftriaxone. ? Continue p.o. cefdinir with plan for 7-day course total. 2. Hypotension, resolved ? Resolved on admission after IV fluids. Monitor. 3. Mild hypoxia and dyspnea on exertion, history of cardiomyopathy, chronic lower extremity edema Follows with outpatient cardiology, last office visit in 03/2023. Last echo from 2020 showed normal EF but moderate global RV dysfunction and elevated right ventricular systolic pressure. On home torsemide 20 mg daily. Chest x-ray on admit showed mild cardiomegaly, was otherwise nonacute. COVID/flu/RSV negative. Has +2-3 lower extremity pitting edema up to just below the knee, which is reportedly chronic per patient and family. ? Oxygen ambulatory testing completed on 08/08, saturations remained above 88% on room air the patient had significant dyspnea with exertion. Suspect this is due to mild volume overload, as home diuretic has been held since admission due to initial hypotension. Restarted home diuretic on 08/08. Albuterol inhaler as needed. 4. Debility, history of Parkinson disease ? Lives with , is debilitated at baseline due to Parkinson's disease but is typically able to do most things around the house for himself without significant issue. More debilitated since admission due to UTI. PT/OT/case management following. Plan for home with home health care on discharge. Chronic medical conditions: ? History of prostate cancer and BPH with LUTS: Prostate cancer in 2005, underwent radiation at that time. Prostate cancer recently returned, now following with Dr. Prather in the office every 3 months for PSA measurements. Next appointment scheduled for 08/09, unfortunately will need to reschedule this appointment. ? Glaucoma: Continue home eyedrops. ? Persistent A-fib: Continue home Cardizem. Not on home blood thinners due to recurrent falls. DVT prophylaxis: Lovenox CODE STATUS: DNR CCA, DNI Expected disposition: Home with home health care, 1 to 2 days Total clinical time spent by myself addressing the patient's medical issues, reviewing all the data, and collaborating with patient's care team: 35 minutes. Charges/Coding Visit Charges Inpatient E&M: 35779 Subs Hosp L2
[2023-08-08] MEDS: Latanoprost 0.005% 1 Bottle 1 DRP RIGHT EYE (21:46)
[2023-08-08] MEDS: MELATONIN 3 MG TABLET PO (21:53)
[2023-08-09 03:32] VITALS: BP 110/68; PULSE 79; RESP 16; TEMP 36.6; O2SAT 95
[2023-08-09] MEDS: CARBIDOPA/LEVODOPA CR 50/200 Tablet PO ×3 (04:54→15:23)
[2023-08-09] MEDS: prednisoLONE eye drops (5 mL) 1 DROP OPTH.BTL 1 DRP LEFT EYE (04:54)
[2023-08-09] MEDS: Carbidopa/Levodopa 25/100 Tablet PO (04:54)
[2023-08-09 06:00] VITALS: BMI 33.0
[2023-08-09 07:31] VITALS: O2SAT 98
[2023-08-09 09:29] VITALS: BP 107/74; PULSE 93; RESP 16; TEMP 36.4; O2SAT 98
[2023-08-09] MEDS: Calcium Carb/Vitamin D 1 TABLET Tablet PO (09:40)
[2023-08-09] MEDS: Dorzolamide HCL/Timolol 10 ml Bottle 1 DRP OPHTHALMIC (09:40)
[2023-08-09] MEDS: Ensure Plus High Protein 120 ML LIQUID PO (09:40)
[2023-08-09] MEDS: Pramipexole Di-HCl 1 MG Tablet PO ×2 (09:41→15:22)
[2023-08-09] MEDS: Tamsulosin HCl 0.4 MG Capsule 0.400000000000000022 MG PO (09:41)
[2023-08-09] MEDS: Enoxaparin 40 MG/0.4 ML Syringe SC (09:41)
[2023-08-09] MEDS: Furosemide 40 MG Tablet PO (09:41)
[2023-08-09] MEDS: Aspirin E.C. 81 MG Tablet PO (09:41)
[2023-08-09] MEDS: Cefdinir 300 MG Capsule PO (09:42)
[2023-08-09] MEDS: Memantine Hydrochloride 10 MG Tablet PO (09:42)
[2023-08-09] MEDS: Ascorbic Acid 500 MG Tablet 1000 MG PO (09:42)
[2023-08-09 11:20] VITALS: BP 117/77; PULSE 81; RESP 16; TEMP 36.3; O2SAT 96
[2023-08-09] MEDS: dilTIAZem CD 120 MG Capsule PO (11:25)
--- NOTE | 2023-08-09 13:05 | DCINST_ITS ---
Discharge Instructions Diet Discharge Diet: No restrictions Activity Discharge Activity: No Restrictions Weight Bearing Status: Full weight bearing Follow Up Care Test Results: Test results from this visit will be discussed in further detail at your follow- up appointment, if applicable. Discharge Plan Admission Admit Date/Time: 08/05/23 16:10 Primary Reason for Your Visit: Fevers and pain with urination Attending Provider: Rachid Regalado Primary Care Provider: Masoud Rosa Consulting Providers: Evelina Overton; Neal Green Instructions Additional Instructions / Restrictions: Complete antibiotic course as noted below. Take torsemide 20 mg daily for heart failure. Use new albuterol inhaler up to every 6 hours as needed for shortness of breath. Follow-up with your primary care doctor as needed. Discharge Orders/Prescriptions Prescriptions: New albuterol sulfate 90 mcg/actuation HFA aerosol inhaler 1 inh inhalation Q6H PRN (Reason: shortness of breath or wheezing) Qty: 8.5 0RF (DME) Space Chamber Spacer See Rx Instructions .Route Qty: 1 0RF Rx Instructions: As directed cefdinir 300 mg Capsule 300 mg PO Q12 3 Days Qty: 6 0RF Continued pramipexole 0.5 mg tablet 1 mg PO 4X/DAY Patient Comments: 0500,1000,1500,2200 carbidopa-levodopa 50-200 mg tablet extended release 1 tablet PO 4X/DAY Patient Comments: 0500,1000,1500,2200 dorzolamide-timolol 22.3-6.8 mg/mL drops 1 - 2 drp OPHTHALMIC BID calcium carbonate-vitamin D3 [Calcium 600 with Vitamin D3] 600 mg(1,500mg) - 500 unit capsule 1 cap PO DAILY tamsulosin 0.4 mg capsule 0.4 mg PO DAILY prednisolone acetate 1 % drops,suspension 1 drp LEFT EYE Q12H Patient Comments: instill 1 drop into left eye twice a day latanoprost 0.005 % drops 1 drp RIGHT EYE QHS Hold Instructions: Pt has been DC'd ascorbic acid (vitamin C) 500 mg Tablet 1,000 mg PO DAILY memantine 10 mg tablet 10 mg PO BID acetaminophen 500 mg Tablet 500 - 1,000 mg PO BID PRN (Reason: Pain) carbidopa-levodopa 25-100 mg tablet 1 tab PO BID Patient Comments: with the first and last dose aspirin 81 mg tablet,delayed release (DR/EC) 81 mg PO DAILY Qty: 90 3RF diltiazem HCl 120 mg capsule,extended release 24 hr See Rx Instructions .ROUTE .COMPLEX Qty: 90 3RF Dose Instruction: take 1 capsule by mouth once daily Rx Instructions: take 1 capsule by mouth once daily Changed torsemide 20 mg tablet 20 mg PO DAILY 30 Days Qty: 30 0RF Discontinued sulfamethoxazole-trimethoprim [Bactrim DS] 800-160 mg tablet 1 tab PO BID Qty: 14 0RF Referrals / Follow Up: Masoud Rosa MD [Primary Care Provider] - Disposition Disposition (needs filled in before D/C Order can be placed): Home Health Service
--- NOTE | 2023-08-09 13:11 | PCM.DC.SUM ---
Providers Date of Admission: 08/05/23 Date of Discharge: 08/09/23 Primary Care Physician: Dr. Masoud Rosa MD Reason For Visit: UTI,HYPOTENSION Diagnosis Discharge Diagnosis (1) UTI (urinary tract infection): Status: Acute Code(s): N39.0 - Urinary tract infection, site not specified (2) Dyspnea on exertion: Status: Acute Code(s): R06.00 - Dyspnea, unspecified (3) Lower extremity edema: Status: Acute Code(s): R60.0 - Localized edema Medications at Discharge Home Medications calcium carbonate 600 mg-vitamin D3 12.5 mcg (500 unit) capsule (Calcium 600 with Vitamin D3) 1 cap PO DAILY Vitamin 09/25/20 carbidopa ER 50 mg-levodopa 200 mg tablet,extended release 1 tablet PO 4X/DAY parkinsons 09/25/20 dorzolamide 22.3 mg-timolol 6.8 mg/mL eye drops 1 - 2 drp ophthalmic (eye) BID glaucoma 09/25/20 prednisolone acetate 1 % eye drops,suspension 1 drp LEFT EYE Q12H vision 11/13/20 pramipexole 0.5 mg tablet 1 mg PO 4X/DAY 04/28/21 ascorbic acid (vitamin C) 500 mg tablet 1,000 mg PO DAILY SUPPLEMENT 09/10/21 latanoprost 0.005 % eye drops 1 drp RIGHT EYE QHS 09/10/21 memantine 10 mg tablet 10 mg PO BID MEMORY 09/10/21 acetaminophen 500 mg tablet 500 - 1,000 mg PO BID PRN Pain 11/10/21 aspirin 81 mg tablet,delayed release 81 mg PO DAILY HEALTH #90 tabs 05/10/22 diltiazem HCl 120 mg capsule,24 hr,extended release See Rx Instructions .Route .COMPLEX #90 CAPSULES 02/03/23 tamsulosin 0.4 mg capsule 0.4 mg PO DAILY 03/14/23 carbidopa 25 mg-levodopa 100 mg tablet 1 tab PO BID 08/05/23 albuterol sulfate 90 mcg/actuation aerosol inhaler 1 inh inhalation Q6H PRN shortness of breath or wheezing #8.5 grams 08/08/23 inhalational spacing device (Space Chamber) #1 ea 08/08/23 cefdinir 300 mg capsule 300 mg PO Q12 3 days #6 caps 02/06/24 torsemide 20 mg tablet 20 mg PO DAILY 30 days #30 tabs 08/09/23 Hospital Course Summary of Care Provided Minutes Spent on Discharge: 35 Hospital Course: Patient is a 78-year-old male who presented to [facility] [place] ED on 08/05/2023 with dysuria and fevers. Hospital course as noted below. Patient discharged home with home health care in stable condition on 08/09. 1. UTI Presented with fever with peak 100.9 F, hypotension as noted below. Notably had no tachycardia, no evidence of endorgan dysfunction, did not meet sepsis criteria. UA showed 500 leukocyte esterase, positive nitrates, 2+ bacteria. Renal ultrasound with no evidence of hydronephrosis. Urine culture grew Proteus sensitive to ceftriaxone. ? Continue p.o. cefdinir with plan for 7-day course total, stop date 08/11. 2. Hypotension, resolved ? Resolved on admission after IV fluids. Monitor. 3. Hypoxia and dyspnea on exertion, history of cardiomyopathy, chronic lower extremity edema Follows with outpatient cardiology, last office visit in 03/2023. Last echo from 2020 showed normal EF but moderate global RV dysfunction and elevated right ventricular systolic pressure. On home torsemide 20 mg daily. Chest x-ray on admit showed mild cardiomegaly, was otherwise nonacute. COVID/flu/RSV negative. Has +2-3 lower extremity pitting edema up to just below the knee, which is reportedly chronic per patient and family. Home diuretic was held on admission due to hypotension as noted above, restarted on 08/08 with good urine output. ? Oxygen ambulatory testing completed on day of discharge, patient required 2 L nasal cannula to maintain oxygen saturations greater than 88%. Patient is ambulatory at home and in the community. Suspect this is secondary to mild volume overload with possible chronic lung changes. Continue home diuretic. Albuterol inhaler as needed prescribed on discharge. ? Oxygen ambulatory testing completed on 08/08, saturations remained above 88% on room air the patient had significant dyspnea with exertion. Suspect this is due to mild volume overload, as home diuretic has been held since admission due to initial hypotension. Restarted home diuretic on 08/08. Albuterol inhaler as needed. 4. Debility, history of Parkinson disease Lives with , is debilitated at baseline due to Parkinson's disease but is typically able to do most things around the house for himself without significant issue. More debilitated since admission due to UTI. ? PT/OT/case management followed. Discharged home with home health care. Chronic medical conditions: ? History of prostate cancer and BPH with LUTS: Prostate cancer in 2005, underwent radiation at that time. Prostate cancer recently returned, now following with Dr. Prather in the office every 3 months for PSA measurements. Next appointment scheduled for 08/09, unfortunately will need to reschedule this appointment. ? Glaucoma: Continue home eyedrops. ? Persistent A-fib: Continue home Cardizem. Not on home blood thinners due to recurrent falls. Total clinical time spent by myself addressing the patient's discharge needs: 35 minutes. Physical Exam Const alert, oriented x3 and no apparent distress Constitutional Narrative: Elderly male, obese, fatigued appearing, otherwise sitting comfortably bedside chair, conversing normally, no acute distress. General Appearance: cooperative and comfortable HEENT normocephalic, head/scalp atraumatic, hearing grossly normal bilaterally, nasal mucous membranes and turbinates normal and moist oral mucous membranes Eyes PERRL, EOMs intact bilaterally and conjunctivae normal Neck full ROM, no lymphadenopathy and supple Lymph Lymphatic: no lymphadenopathy noted Chest inspection of chest normal Resp Resp Narrative: No increased work of breathing noted on 2 L nasal cannula. Good air movement bilaterally throughout. Cardio no murmurs and peripheral pulses 2+ throughout Cardio Narrative: A-fib, rate controlled. GI normal to inspection, nondistended, normoactive bowel sounds, soft to palpation, non-tender and non-distended Back/Spine normal ROM Extremity normal to inspection and full ROM Extremity Narrative: +2-3 lower extremity pitting edema. Skin no rashes or lesions noted Neuro no focal motor deficits and no sensory deficits noted Speech: speech normal Psych mental status grossly normal Weight / BMI Weight Weight: 95.6 kg Body Mass Index (BMI) 33.0 ABG / Lab / Microbiology Data 08/06/23 05:35 08/07/23 08:20 Microbiology: Microbiology 08/05/23 12:35 Blood Culture (Wb) - Left Forearm Blood Culture - Preliminary No growth in 48 hours. 08/05/23 12:21 Blood Culture (Wb) - Right Forearm Blood Culture - Preliminary No growth in 48 hours. 08/05/23 13:20 Urine, Clean Catch Urine Culture - Final Proteus mirabilis 08/05/23 12:38 Mucosa - Nose SARS-CoV-2, Influenza & RSV (PCR) - Final D/C Instructions Discharge Diet: No restrictions Weight Bearing Status: Full weight bearing Meaningful Use Info Meaningful Use Diagnoses (Choose all that apply): None applicable Discharge Plan Admission Admit Date/Time: 08/05/23 16:10 Primary Reason for Your Visit: Fevers and pain with urination Attending Provider: Rachid Regalado Primary Care Provider: Masoud Rosa Consulting Providers: Evelina Overton; Neal Green Instructions Additional Instructions / Restrictions: Complete antibiotic course as noted below. Take torsemide 20 mg daily for heart failure. Use new albuterol inhaler up to every 6 hours as needed for shortness of breath. Follow-up with your primary care doctor as needed. Discharge Orders/Prescriptions Prescriptions: New albuterol sulfate 90 mcg/actuation HFA aerosol inhaler 1 inh inhalation Q6H PRN (Reason: shortness of breath or wheezing) Qty: 8.5 0RF (DME) Space Chamber Spacer See Rx Instructions .Route Qty: 1 0RF Rx Instructions: As directed cefdinir 300 mg Capsule 300 mg PO Q12 3 Days Qty: 6 0RF Continued pramipexole 0.5 mg tablet 1 mg PO 4X/DAY Patient Comments: 0500,1000,1500,2200 carbidopa-levodopa 50-200 mg tablet extended release 1 tablet PO 4X/DAY Patient Comments: 0500,1000,1500,2200 dorzolamide-timolol 22.3-6.8 mg/mL drops 1 - 2 drp OPHTHALMIC BID calcium carbonate-vitamin D3 [Calcium 600 with Vitamin D3] 600 mg(1,500mg) -500 unit capsule 1 cap PO DAILY tamsulosin 0.4 mg capsule 0.4 mg PO DAILY prednisolone acetate 1 % drops,suspension 1 drp LEFT EYE Q12H Patient Comments: instill 1 drop into left eye twice a day latanoprost 0.005 % drops 1 drp RIGHT EYE QHS Hold Instructions: Pt has been DC'd ascorbic acid (vitamin C) 500 mg Tablet 1,000 mg PO DAILY memantine 10 mg tablet 10 mg PO BID acetaminophen 500 mg Tablet 500 - 1,000 mg PO BID PRN (Reason: Pain) carbidopa-levodopa 25-100 mg tablet 1 tab PO BID Patient Comments: with the first and last dose aspirin 81 mg tablet,delayed release (DR/EC) 81 mg PO DAILY Qty: 90 3RF diltiazem HCl 120 mg capsule,extended release 24 hr See Rx Instructions .ROUTE .COMPLEX Qty: 90 3RF Dose Instruction: take 1 capsule by mouth once daily Rx Instructions: take 1 capsule by mouth once daily Changed torsemide 20 mg tablet 20 mg PO DAILY 30 Days Qty: 30 0RF Discontinued sulfamethoxazole-trimethoprim [Bactrim DS] 800-160 mg tablet 1 tab PO BID Qty: 14 0RF Referrals / Follow Up: Masoud Rosa MD [Primary Care Provider] - 08/15/23 1:45 pm Disposition Disposition (needs filled in before D/C Order can be placed): Home Health Service Charges/Coding Visit Charges Inpatient E&M: 52537 Disch Hosp >30min
[2023-08-09 13:24] VITALS: O2SAT 86; O2SAT 91; O2SAT 94
--- NOTE | 2023-08-09 13:53 | PHA.DC.MC.R ---
Pharmacy [facility] has performed discharge medication reconciliation and counseling for this patient. 1. ALBUTEROL MDI 90MCG 1 PUFF Q6H PRN SHORTNESS OF BREATH 2. CEFDINIR 300MG PO BID X 3 DAYS The patient's discharge medication list was reviewed for discrepancies and discrepancies were resolved. The patient was counseled on the following discharge medications and changes in medications for homegoing were reviewed. The Reason for Use, instructions for use, and potential side effects were reviewed for all new medications. The patient's questions regarding all of their medications were answered. The patient was able to verbally demonstrate an understanding of their discharge medications. Medications at Discharge Home Medications calcium carbonate 600 mg-vitamin D3 12.5 mcg (500 unit) capsule (Calcium 600 with Vitamin D3) 1 cap PO DAILY Vitamin 09/25/20 carbidopa ER 50 mg-levodopa 200 mg tablet,extended release 1 tablet PO 4X/DAY parkinsons 09/25/20 dorzolamide 22.3 mg-timolol 6.8 mg/mL eye drops 1 - 2 drp ophthalmic (eye) BID glaucoma 09/25/20 prednisolone acetate 1 % eye drops,suspension 1 drp LEFT EYE Q12H vision 11/13/20 pramipexole 0.5 mg tablet 1 mg PO 4X/DAY 04/28/21 ascorbic acid (vitamin C) 500 mg tablet 1,000 mg PO DAILY SUPPLEMENT 09/10/21 latanoprost 0.005 % eye drops 1 drp RIGHT EYE QHS 09/10/21 memantine 10 mg tablet 10 mg PO BID MEMORY 09/10/21 acetaminophen 500 mg tablet 500 - 1,000 mg PO BID PRN Pain 11/10/21 aspirin 81 mg tablet,delayed release 81 mg PO DAILY HEALTH #90 tabs 05/10/22 diltiazem HCl 120 mg capsule,24 hr,extended release See Rx Instructions .Route .COMPLEX #90 CAPSULES 02/03/23 tamsulosin 0.4 mg capsule 0.4 mg PO DAILY 03/14/23 carbidopa 25 mg-levodopa 100 mg tablet 1 tab PO BID 08/05/23 albuterol sulfate 90 mcg/actuation aerosol inhaler 1 inh inhalation Q6H PRN shortness of breath or wheezing #8.5 grams 08/08/23 inhalational spacing device (Space Chamber) #1 ea 08/08/23 cefdinir 300 mg capsule 300 mg PO Q12 3 days #6 caps 08/09/23 torsemide 20 mg tablet 20 mg PO DAILY 30 days #30 tabs 08/09/23
[2023-08-09 15:18] VITALS: BP 113/70; PULSE 91; RESP 16; TEMP 37; O2SAT 94
--- NOTE | 2023-08-10 12:32 | CASEMGMT ---
Addendum entered by Ivan Payne 08/10/23 13:03: 1223: Keysha from [facility] calls and states the pt was seen by at this time and was found off oxygen. Per Keysha, the pt was unaware how to use the oxygen and also how to call for the concentrator. Keysha states that [facility] was waiting on further paperwork to deliver the concentrator. 1227: TC to Amor from [facility] at this time and she states that she gave education to the pt and the pt prior to DC. Amor states that [facility] is not waiting on any further paperwork and that the problem is that the pt never called for the home O2 concentrator. 1233: TC to Keysha at [facility] and updated with this information. Keysha states that she will have the help with calling [facility] to get the pt a concentrator REN. Pt is currently using O2 with a portable tank at this time. Original Note: KARISSA, 08/09/23 - 1345: Referral sent to [facility] via [employer]. Amor from [facility] calls and states she is having issues with [employer] and is requesting us to email the referral to her. Referral emailed to Amor at [facility] at [phone]. Amor then delivered the O2 to the pt room prior to pt DC and provided education to the pt and the pt on how to use the O2 and also how to call [facility] for home O2 concentrator delivery. Instructions were also applied to the pt DC packet.
== END 2023-08-09 15:47 | disposition home health service (06) | DRG 690 ==
LOC: ED 15:56 → ICU 16:10 → PCU 08-06 11:51
PROVIDERS: Admitting Provider Internal Medicine; Emergency Provider Emergency Medicine; PCP Family Medicine; Visit Provider Hospitalist
DX: N39.0 Urinary tract infection, site not specified (principal); I42.9 Cardiomyopathy, unspecified; I48.19 Other persistent atrial fibrillation; C61 Malignant neoplasm of prostate; G20.A1 Parkinson's disease without dyskinesia, without mention of fluctuations; B96.4 Proteus (mirabilis) (morganii) as the cause of diseases classified elsewhere; I95.9 Hypotension, unspecified; I11.0 Hypertensive heart disease with heart failure; I50.9 Heart failure, unspecified; N40.1 Benign prostatic hyperplasia with lower urinary tract symptoms; H40.9 Unspecified glaucoma; Z79.2 Long term (current) use of antibiotics; R53.81 Other malaise; Z11.52 Encounter for screening for COVID-19; R09.02 Hypoxemia; Z66 Do not resuscitate
CPT/HCPCS: 71045; 76770; 80048; 80053; 81001; 83605; 84153; 84443; 85025; 85610; 85730; 87040; 87077; 87086; 87088; 87186; 87631; 93005; 94640; 97110; 97162; 97166; 97530; 97535; 97802; 99284; J7030; A4216

== ENCOUNTER → 2023-11-07 | Outpatient (CLI) | payer MEDICARE, SELFPAY | END | disposition home or self-care (01) | LOC: LAB 09:06 | PROVIDERS: PCP Family Medicine; Referring Provider Urology; Visit Provider Urology | DX: C61 Malignant neoplasm of prostate (principal) | CPT/HCPCS: 36415; 84153; 84403 ==

== ENCOUNTER 2023-11-13 21:44 | Inpatient (IN) | payer MEDICARE, SELFPAY ==
[2023-11-13 21:47] VITALS: BP 140/71; PULSE 94; RESP 16; TEMP 37.9; O2SAT 91; O2SAT 96; BMI 32.0
[2023-11-13 21:52] VITALS: BP 130/76; PULSE 91; RESP 16; TEMP 38; O2SAT 92
--- NOTE | 2023-11-13 22:12 | EX.ED.DYSGE1 ---
HPI History of Present Illness Chief Complaint: Weakness Informant: patient, spouse/S.O. and family Onset/Context/Timing Onset: Today Context: Sudden Onset Timing: Continuous Quality: Weakness Location: Generalized Worsened by: Nothing Relieved by: Nothing Narrative Narrative: Patient presents with weakness, fever, and recent urinary tract infection. Patient states he has a history of Parkinson's disease and has fallen recently. Family states that the patient became much weaker this afternoon. Patient states his weakness is generalized. Patient states he feels fatigued. Family states patient has been wanting to sleep all day. Family states patient had a temperature at home of 99 and was also having some chills. Patient admits to decreased urine output but denies any dysuria or hematuria. Family states he was recently treated for urinary tract infection. Patient admits to some shortness of breath. Patient also admits to some redness and swelling over the medial aspect of the left elbow. 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 Lower extremity edema Mitral valve insufficiency Non-pressure chronic ulcer of left calf with fat layer exposed Obstructive uropathy Other secondary pulmonary hypertension Parkinsons disease Persistent atrial fibrillation Prostate cancer Severe sepsis Traumatic open wound of left lower leg with infection Urethral stricture Urinary retention UTI (urinary tract infection) Wound of left foot Home Medications carbidopa ER 50 mg-levodopa 200 mg tablet,extended release 1 tablet PO 4X/DAY parkinsons 09/25/20 [History Last Taken 11/13/23] dorzolamide 22.3 mg-timolol 6.8 mg/mL eye drops 1 - 2 drp ophthalmic (eye) BID glaucoma 09/25/20 [History Last Taken 11/13/23] prednisolone acetate 1 % eye drops,suspension 1 drp LEFT EYE Q12H vision 11/13/20 [History Last Taken 11/13/23] pramipexole 0.5 mg tablet 1 mg PO 4X/DAY . 04/28/21 [History Last Taken 11/13/23] latanoprost 0.005 % eye drops 1 drp RIGHT EYE QHS eye he 09/10/21 [History Last Taken 11/13/23] memantine 10 mg tablet 10 mg PO BID MEMORY 09/10/21 [History Last Taken 11/13/23] aspirin 81 mg tablet,delayed release 81 mg PO DAILY HEALTH #90 tabs 05/10/22 [Rx Last Taken 11/13/23] diltiazem HCl 120 mg capsule,24 hr,extended release See Rx Instructions .Route .COMPLEX heart #90 CAPSULES 02/03/23 [Rx Last Taken 11/13/23] tamsulosin 0.4 mg capsule 0.4 mg PO DAILY pros 03/14/23 [History Last Taken 11/13/23] carbidopa 25 mg-levodopa 100 mg tablet 1 tab PO BID luisa 08/05/23 [History Last Taken 11/13/23] albuterol sulfate 90 mcg/actuation aerosol inhaler 1 inh inhalation Q6H PRN shortness of breath or wheezing #8.5 grams 08/08/23 [Rx Last Taken 11/13/23] inhalational spacing device (Space Chamber) #1 ea 08/08/23 [Rx Last Taken Unknown] torsemide 20 mg tablet 20 mg PO DAILY fluid overloa 30 days #30 tabs 08/09/23 [Rx Last Taken 11/13/23] celecoxib 200 mg capsule (Celebrex) 200 mg PO DAILY PRN pain 09/28/23 [History Last Taken 11/13/23] tramadol 50 mg tablet 50 mg PO TID PRN pain 09/28/23 [History Last Taken 11/13/23] Allergy/AdvReac Type Severity Reaction Status Date / Time lidocaine Allergy Angioedema Verified 09/28/23 11:40 peppermint Allergy Angioedema Verified 09/28/23 11:40 phenylephrine Allergy Angioedema Verified 09/28/23 11:40 doxycycline AdvReac Intermediate SUNBURN Verified 09/28/23 11:40 Family History Brother Atrial fibrillation Surgical History History of cataract extraction History of hernia repair History of incision and drainage (~09/2021) Social History Smoking Status: Never smoker alcohol intake: never substance use type: does not use caffeine: Yes Type: carbonated beverages Number of servings: 1 ROS ROS ED Constitutional Constitutional ED: Reports chills and fever(s) Eyes Eyes: Denies blurry vision or change in vision ENT ENT ED: Denies rhinorrhea or sore throat Cardiovascular Cardiovascular: Denies chest pain or palpitations Respiratory/Chest Respiratory/Chest: Reports dyspnea; Denies cough Gastrointestinal Gastrointestinal: Denies nausea or vomiting Genitourinary Genitourinary ED: Denies dysuria or hematuria Musculoskeletal Musculoskeletal: Reports neck pain; Denies back pain Integumentary Denies abscess or rash Neurologic Neurologic: Denies headache(s) or weakness Allergic/Immunologic Allergic/Immunologic ED: Denies mouth swelling or urticaria EXAM Physical Exam Const Vital Signs: 11/13/23 21:47 11/13/23 21:47 11/13/23 21:52 Temperature 100.2 F H 100.4 F H Temperature Source Oral Oral Pulse Rate 94 91 Respiratory Rate 16 16 Respiratory Effort Short of Breath Respiratory Pattern Normal Blood Pressure 140/71 H 130/76 H Blood Pressure Mean 94 94 Pulse Ox 91 92 Oxygen Delivery Method Room Air Room Air 11/13/23 22:34 11/13/23 22:52 11/13/23 23:45 Temperature 99.9 F H Temperature Source Temporal Pulse Rate 86 79 Respiratory Rate 16 14 Respiratory Effort Respiratory Pattern Blood Pressure 132/77 H 115/72 Blood Pressure Mean 95 86 Pulse Ox 91 91 90 Oxygen Delivery Method Room Air Room Air Room Air 11/14/23 00:00 11/14/23 01:00 11/14/23 02:00 Temperature 98.7 F 98.0 F 98 F Temperature Source Temporal Temporal Temporal Pulse Rate 89 80 70 Respiratory Rate 14 14 16 Respiratory Effort Respiratory Pattern Blood Pressure 119/84 H 114/83 H 93/58 L Blood Pressure Mean 95 93 69 Pulse Ox 92 91 91 Oxygen Delivery Method Room Air Room Air 11/14/23 03:00 11/14/23 03:00 11/14/23 03:27 Temperature 98.1 F 98 F Temperature Source Temporal Pulse Rate 68 68 72 Respiratory Rate 18 18 16 Respiratory Effort Respiratory Pattern Blood Pressure 95/61 95/61 100/65 Blood Pressure Mean 72 72 76 Pulse Ox 93 93 93 Oxygen Delivery Method Positive well nourished and well developed General Appearance ED: well developed and NAD HEENT Reports moist mucous membranes Neck supple and no JVD Resp normal respiratory effort Auscultation: diminished lung sounds diffuse Cardio regular rate Rhythm: abnormal rhythm irregularly irregular GI non-tender and non-distended Palpation: soft Extremity Extremity Narrative: There is some erythema and warmth over the medial aspect of the left elbow. There is no evidence of any abscess. There is mild induration. There is no discharge or drainage noted. Neuro oriented x3, CN's II-XII intact bilaterally and no sensory deficits noted Sensorium / Orientation: alert Motor Exam: general weakness MDM MDM MDM Narrative Medical decision making narrative: Differential diagnosis includes urinary tract infection, sepsis, cellulitis, pneumonia, viral illness, cardiac dysrhythmia, cardiac ischemia, and coagulopathy. EKG will be obtained to assess for cardiac dysrhythmia and cardiac ischemia. Chest x-ray will be obtained to assess for pneumonia and pneumothorax. CBC will be obtained to assess for leukocytosis and anemia. Comprehensive metabolic profile will be obtained to assess for hepatic function, renal function, and electrolyte abnormality. PT was INR and PTT will be obtained to assess for coagulopathy. Lactate will be obtained to assess for sepsis. Urinalysis will be obtained to assess for urinary tract infection. COVID-19, influenza, and RSV PCR will be obtained to assess for viral illness. Blood cultures will be obtained to assess for sepsis. Urine culture will be obtained to assess for urinary tract infection. Lab Data Attestation: I reviewed the patient's lab results. Lab results narrative: CBC was reviewed and was within normal limits. Comprehensive metabolic profile was reviewed and was essentially within normal limits. PT with INR and PTT were reviewed. Pro time was slightly elevated at 15.1 and INR is 1.2. PTT was normal at 31.3. Urinalysis was reviewed. There is no evidence of urinary tract infection or hematuria. COVID-19 PCR was reviewed and was negative. Influenza PCR was reviewed and was negative for influenza A and influenza B. RSV PCR was reviewed and was negative. Labs: Laboratory Results - last 24 hr 11/13/23 11/13/23 22:05 23:50 WBC 10.6 RBC 5.17 Hgb 15.3 Hct 46.4 MCV 89.7 MCH 29.6 MCHC 33.0 RDW Std Deviation 48.9 H RDW Coeff of Manuela 14.7 H Plt Count 160 MPV 11.6 Immature Gran % (Auto) 0.500 Neut % (Auto) 88.5 H Lymph % (Auto) 3.8 L [place] % (Auto) 6.4 Eos % (Auto) 0.6 Baso % (Auto) 0.2 Absolute Neuts (auto) 9.4 H Absolute Lymphs (auto) 0.40 L Nucleated RBC % 0 Differential Comment SEE COMMENT Platelet Estimate ADEQUATE RBC Morphology N CHROM Anisocytosis RARE Macrocytosis RARE PT 15.1 H INR 1.2 APTT 31.3 Sodium 139 Potassium 3.5 Chloride 107 Carbon Dioxide 25.0 Anion Gap 7 BUN 17 Creatinine 0.82 Estim Creat Clear Calc 79.29 Est GFR (MDRD) Af Amer 117 Est GFR (MDRD) Non-Af 97 BUN/Creatinine Ratio 20.8 H Glucose 109 H Lactic Acid 1.1 Calcium 8.4 L Total Bilirubin 1.40 H AST 24 ALT < 6 L Alkaline Phosphatase 86 Total Protein 6.7 Albumin 3.0 L Globulin 3.7 Albumin/Globulin Ratio 0.8 L Urine Color Yellow Urine Clarity Clear Urine pH 7.0 Ur Specific [place] 1.015 Urine Protein 30 H Urine Glucose (UA) Normal Urine Ketones 5 H Urine Occult Blood 25 H Urine Nitrite Negative Urine Bilirubin Negative Urine Urobilinogen 1 H Ur Leukocyte Esterase 25 H Urine RBC 0-5 SEEN Urine WBC 0-5 SEEN Ur Squamous Epith Cells 0 SEEN Urine Bacteria 0 SEEN Urine Mucus 0 SEEN Radiography Diagnostic Testing: Clinical Impression(s) from Imaging Studies Chest X-Ray 11/13/23 22:35 IMPRESSION: Left basilar atelectasis or infiltrate with small left pleural effusion, possible pneumonia. Electronically Signed: Jimena Sifuentes MD at 22:57 EDT , Portable 1 view chest x-ray was obtained. On my independent interpretation, lung baltazar show a left basilar atelectasis and infiltrate with small left pleural effusion. There is normal cardiac silhouette. Bony thorax is normal. Radiologist also interpreted the x-ray and agrees. EKG Initial EKG: Attestation: I personally reviewed and interpreted this EKG as follows: Interpretation: No Acute Injury Pattern and Atrial Fibrillation (85) Comments: EKG was obtained. On my independent interpretation, it shows atrial fibrillation with a rate of 85. QRS interval was normal at 92. QTc interval was normal at 435 ms. [place] was normal. There are no acute ST or T wave changes noted. Prior EKG tracings: available for review Prior: Unchanged (08/05/2023) Management Discussion w/another healthcare provider: Hospitalist Treatment and Re-Evaluation :: Patient was given a dose of Tylenol here. Patient and family were advised of the findings. Patient was given Rocephin and Zithromax here to cover for both pneumonia and cellulitis. After administration of antibiotics, patient was still unable to ambulate well. Patient states he was unsteady on his feet and felt like he might fall. Because of this, I will discuss the case with the hospitalist for possible admission. He will admit the patient to his service. Patient and family understood and were agreeable with the plan. All questions were answered. Discharge Plan Dx/Rx/DC Orders Clinical Impression: Pneumonia, Parkinsons disease, Cellulitis of left elbow, Weakness Disposition Disposition: Acute Care Hospital [facility] Discharge Date/Time: 11/14/23 04:00
[2023-11-13 22:34] VITALS: O2SAT 91
--- NOTE | 2023-11-13 22:35 | RAD_ITS ---
INDICATION: Fever EXAMINATION/TECHNIQUE: X-RAY - XR Chest 1 View AP portable. 10:33 PM COMPARISON: None. FINDINGS: LINES/DEVICES: None. LUNGS: Streaky opacity at the left lung base with small left pleural effusion. No consolidation. No pneumothorax. MEDIASTINUM: Aorta is atherosclerotic. CARDIAC SILHOUETTE: Not enlarged. BONES AND SOFT TISSUES: No acute abnormalities. RAD/Chest 1 View (Portable) IMPRESSION: Left basilar atelectasis or infiltrate with small left pleural effusion, possible pneumonia. Electronically Signed: Jimena Sifuentes MD at 22:57 EDT ,
[2023-11-13] MEDS: Acetaminophen 500 MG Tablet 1000 MG PO (22:46)
[2023-11-13 22:52] VITALS: BP 132/77; PULSE 86; RESP 16; TEMP 37.7; O2SAT 91
[2023-11-13 23:01] LABS: Absolute Neutrophil Count 9.4 X10^3/uL (2.0-7.7); Basophil# 0.02 X10^3/uL; Basophil% 0.2 % (0-1); Eosinophil# 0.06 X10^3/uL; Eosinophils% 0.6 % (0-5); Hematocrit 46.4 % (40-54); Hemoglobin 15.3 g/dL (13.0-16.5); Lymphocyte % 3.8 % (19-41); Mean Corpuscular Hgb 29.6 pg (27.0-32.0); Mean Corpuscular Volume 89.7 fL (80-94); Mean Platelet Vol. 11.6 fl (6.2-12.0); Monocyte# 0.68 X10^3/uL; Monocyte% 6.4 % (0-10); NRBC Flagged by Analyzer 0 % (0-5); Neutrophil % 88.5 % (47-70); POSITIVE DIFFERENTIAL YES; Platelet Count 160 K/mm3 (150-450); RBC Distribution Width CV 14.7 % (11.6-14.6); RBC Distribution Width SD 48.9 fl (35.1-43.9); Red Blood Count 5.17 M/mm3 (4.6-6.2); White Blood Count 10.6 K/mm3 (4.4-11.0)
[2023-11-13 23:02] LABS: Differential Indicated SCAN CRITERIA MET
[2023-11-13 23:13] LABS: ALB/GLOB Ratio 0.8 RATIO (0.9-2.4); AST(SGOT) 24 U/L (15-37); Alanine Aminotransfer ALT/SGPT < 6 U/L (16-61); Alkaline Phosphatase 86 U/L (45-117); Anion Gap 7 (5-15); BUN 17 mg/dL (7-18); BUN/Creat Ratio 20.8 RATIO (10-20); Calcium,Total 8.4 mg/dL (8.5-10.1); Chloride 107 mmol/L (98-107); Creatinine, Serum 0.82 mg/dL (0.70-1.30); EST Glomerular Filtration Rate 97 mL/min (>60); Est Glom Filt Rate - Afr Amer 117 mL/min (>60); Estimated Creatinine Clearance 79.29 ml/min; Globulin 3.7 g/dL (2.2-4.2); Glucose 109 mg/dL (74-106); Lactic Acid 1.1 mmol/L (0.4-1.9); Potassium 3.5 mmol/L (3.5-5.1); Protein, Total 6.7 g/dL (6.4-8.2); Sodium Level 139 mmol/L (136-145)
[2023-11-13 23:15] LABS: International Normalized Ratio 1.2; Prothrombin Time (Protime)PT. 15.1 SECONDS (11.7-14.9)
[2023-11-13 23:16] LABS: Partial Thromboplast Time 31.3 Seconds (24.1-36.2)
[2023-11-13 23:21] LABS: Anisocytosis RARE; Macrocytosis RARE; Platelet Estimate ADEQUATE (ADEQ); Red Cell Morphology N CHROM NORMAL (NORM C&C)
[2023-11-13 23:45] VITALS: BP 115/72; PULSE 79; RESP 14; O2SAT 90
[2023-11-13 23:54] LABS: Bacteria 0 SEEN /hpf (None Seen); Mucous, Urine 0 SEEN /hpf (<or=2+); Squamous Epithelial Cells - UA 0 SEEN /hpf (0-5)
[2023-11-13 23:56] LABS: Color, Urine Yellow (Yellow); Glucose, Dipstick Normal (Normal); Ketone-Dipstick 5 mg/dl (Negative); Leukocyte Esterase-Dipstick 25 /ul (Negative); Nitrite-Dipstick Negative (Negative); Occult Blood-Urine 25 /ul (Negative); Protein-Dipstick 30 mg/dl (Negative); Specific Gravity, Urine 1.015 (1.002-1.030); Urine Bilirubin Dipstick Negative (Negative); Urine Clarity Clear (Clear); Urine Urobilinogen 1 mg/dl (Normal)
[2023-11-14] VITALS (12 sets, daily range): BP systolic 93–125; BP diastolic 58–84; PULSE 68–97; RESP 14–18; TEMP 36–37.7; O2SAT 91–97; BMI 30.7
[2023-11-14 00:18] LABS: Red Blood Cells-Urine 0-5 SEEN /hpf (0-5); White Blood Cells 0-5 SEEN /hpf (0-5)
[2023-11-14] MEDS: Ceftriaxone 2 GM in 0.9% Normal Saline (50mL MB+) 50 ML IV (00:54)
[2023-11-14] MEDS: Azithromycin 500 MG in Dextrose 5%-Water (250mL Bag) 250 ML 250 MG IV (01:30)
--- NOTE | 2023-11-14 03:24 | HP.PCM.HOS_ITS ---
[facility] - General General Date of Admission: 11/14/23 Date of Service: 11/14/23 Chief Complaint: Redness and Swelling of the Left Elbow and SOB with Worsening Generalized Weakness. HPI Narrative KAREN CARLSON, is a 78 M with a past medical history of essential hypertension, obesity; with BMI of 32 this admission, Parkinson's disease, chronic dementia; on memantine, history of DVT, cardiomyopathy, history of mitral valve insufficiency, history of atrial fibrillation; s/p DCCV (2016), history of prostate cancer; with subsequent chronic radiation cystitis, history of obstructive uropathy, glaucoma, history of cataract; s/p extraction, history of MRSA, history of cellulitis, history of severe sepsis, history of hernia repair, osteoarthritis and recently diagnosed UTI complicated by generalized weakness who presents to [facility] ER complaining of redness and swelling of the Left elbow and SOB with worsening generalized weakness. Mr. Carlson reports his symptoms began approximately 1 day prior to admission with a gradual increase in the swelling and redness surrounding his Left elbow along with an elevated temperature of 99 ?F and chills with dyspnea on exertion that progressed to shortness of breath at rest. He also admits to an acute worsening of his chronic weakness earlier in the afternoon of November 13, 2023 with severe fatigue causing patient to basically sleep all day and then that caused his family to become increasingly concerned so they brought him in for further evaluation and treatment. He also admits to a recent fall which was attributed to being a complication from his Parkinson's disease. He denies associated nausea, vomiting, diarrhea, constipation, chest pain, palpitations or diaphoresis. In the ER he was diagnosed with cellulitis of the Left elbow complicated by radiographic evidence of Left basilar infiltrate consistent with suspected pneumonia causing generalized weakness with ambulatory dysfunction in the setting of chronic Parkinson's disease with recent UTI and he was then admitted to the general medical floor for ongoing care for stay that is expected to extend beyond 2 midnights. [facility] Medical History ALFRED (acute kidney injury) Atrial fibrillation Bladder outflow obstruction Bladder stone Blister of left leg Cardiomyopathy in other diseases classified elsewhere Cellulitis Chronic radiation cystitis Declining functional status DVT (deep venous thrombosis) Failure of outpatient treatment Hematuria History of blistering sunburn History of prostate cancer Hypertension Localized edema nursing home use of drug Lower extremity edema Mitral valve insufficiency Non-pressure chronic ulcer of left calf with fat layer exposed Obstructive uropathy Other secondary pulmonary hypertension Parkinsons disease Persistent atrial fibrillation Prostate cancer Severe sepsis Traumatic open wound of left lower leg with infection Urethral stricture Urinary retention UTI (urinary tract infection) Wound of left foot Home Medications carbidopa ER 50 mg-levodopa 200 mg tablet,extended release 1 tablet PO 4X/DAY parkinsons 09/25/20 [History Last Taken 11/13/23] dorzolamide 22.3 mg-timolol 6.8 mg/mL eye drops 1 - 2 drp ophthalmic (eye) BID glaucoma 09/25/20 [History Last Taken 11/13/23] prednisolone acetate 1 % eye drops,suspension 1 drp LEFT EYE Q12H vision 11/13/20 [History Last Taken 11/13/23] pramipexole 0.5 mg tablet 1 mg PO 4X/DAY . 04/28/21 [History Last Taken 11/13/23] latanoprost 0.005 % eye drops 1 drp RIGHT EYE QHS eye he 09/10/21 [History Last Taken 11/13/23] memantine 10 mg tablet 10 mg PO BID MEMORY 09/10/21 [History Last Taken 11/13/23] aspirin 81 mg tablet,delayed release 81 mg PO DAILY HEALTH #90 tabs 05/10/22 [Rx Last Taken 11/13/23] diltiazem HCl 120 mg capsule,24 hr,extended release See Rx Instructions .Route .COMPLEX heart #90 CAPSULES 02/03/23 [Rx Last Taken 11/13/23] tamsulosin 0.4 mg capsule 0.4 mg PO DAILY pros 03/14/23 [History Last Taken 11/13/23] carbidopa 25 mg-levodopa 100 mg tablet 1 tab PO BID luisa 08/05/23 [History Last Taken 11/13/23] albuterol sulfate 90 mcg/actuation aerosol inhaler 1 inh inhalation Q6H PRN shortness of breath or wheezing #8.5 grams 08/08/23 [Rx Last Taken 11/13/23] inhalational spacing device (Space Chamber) #1 ea 08/08/23 [Rx Last Taken Unknown] torsemide 20 mg tablet 20 mg PO DAILY fluid overloa 30 days #30 tabs 08/09/23 [Rx Last Taken 11/13/23] celecoxib 200 mg capsule (Celebrex) 200 mg PO DAILY PRN pain 09/28/23 [History Last Taken 11/13/23] tramadol 50 mg tablet 50 mg PO TID PRN pain 09/28/23 [History Last Taken 11/13/23] Allergy/AdvReac Type Severity Reaction Status Date / Time lidocaine Allergy Angioedema Verified 09/28/23 11:40 peppermint Allergy Angioedema Verified 09/28/23 11:40 phenylephrine Allergy Angioedema Verified 09/28/23 11:40 doxycycline AdvReac Intermediate SUNBURN Verified 09/28/23 11:40 Family History Brother Atrial fibrillation Surgical History History of cataract extraction History of hernia repair History of incision and drainage (~09/2021) Social History Smoking Status: Never smoker alcohol intake: never substance use type: does not use caffeine: Yes Type: carbonated beverages Number of servings: 1 ROS ROS Narrative Review of systems: General: Patient admits to fever, chills and generalized weakness as per HPI. HENT: Denies headache, denies stuffy nose, denies sore throat EYES: Denies changes in vision or discharge from eyes. Resp: Patient admits to dyspnea on exertion that progressed to shortness of breath at rest as per HPI. He denies cough. Cardiac: Denies chest pain, palpitations or heart racing. GI: Denies abdominal pain, denies changes in bowel, denies nausea or vomiting. : Denies changes in urination Extremity: Patient admits to redness and swelling surrounding his Left elbow as per HPI. Musculoskeletal: Feels somewhat generally weak and unwell with complaints of neck pain. Neuro: Patient denies headache, paresthesias or focal neurologic weakness. Heme: Denies any bleeding or bruising Skin: Denies rashes Psychiatric: No complaints voiced related to uncontrolled depression or anxiety. Endocrine: No polyuria, polydipsia or polyphagia. The rest of the 14 point ROS was negative except for positives in HPI. Vital Signs Vital Signs Vital Signs: 11/13/23 21:47 11/13/23 21:47 11/13/23 21:52 Temperature 100.2 F H 100.4 F H Temperature Source Oral Oral Pulse Rate 94 91 Respiratory Rate 16 16 Respiratory Effort Short of Breath Respiratory Pattern Normal Blood Pressure 140/71 H 130/76 H Blood Pressure Mean 94 94 Pulse Ox 91 92 Oxygen Delivery Method Room Air Room Air 11/13/23 22:34 11/13/23 22:52 11/13/23 23:45 Temperature 99.9 F H Temperature Source Temporal Pulse Rate 86 79 Respiratory Rate 16 14 Respiratory Effort Respiratory Pattern Blood Pressure 132/77 H 115/72 Blood Pressure Mean 95 86 Pulse Ox 91 91 90 Oxygen Delivery Method Room Air Room Air Room Air 11/14/23 00:00 11/14/23 01:00 Temperature 98.7 F 98.0 F Temperature Source Temporal Temporal Pulse Rate 89 80 Respiratory Rate 14 14 Respiratory Effort Respiratory Pattern Blood Pressure 119/84 H 114/83 H Blood Pressure Mean 95 93 Pulse Ox 92 91 Oxygen Delivery Method Room Air Room Air Weight Weight: 204 lb 5.896 oz Body Mass Index (BMI) 32.0 Physical Exam Const alert, oriented x3, no apparent distress, average body habitus and healthy appearing General Appearance: cooperative HEENT normocephalic, head/scalp atraumatic, hearing grossly normal bilaterally and moist oral mucous membranes Eyes PERRL and EOMs intact bilaterally Neck no lymphadenopathy and supple Resp Resp Narrative: Diminished breath sounds over left lower lobe. Cardio Cardio Narrative: Irregularly irregular but rate controlled. GI normal to inspection, nondistended, normoactive bowel sounds, soft to palpation, non-tender and non-distended Extremity Extremity Narrative: Patient has redness and swelling over his left elbow. No signs of fluctuance or abscess noted. Skin Skin Narrative: Patient has redness and swelling over his left elbow. Neuro oriented x3, CN's II-XII intact bilaterally, moves all extremities and no focal motor deficits Sensorium / Orientation: awake, alert, oriented to person, oriented to place and oriented to time Speech: speech normal Psych affect normal Results Medical Records Data Attestation: I reviewed the patient's medical records Lab / Micro Data Attestation: I reviewed the patient's lab results. 11/13/23 22:05 11/13/23 22:05 Labs: Laboratory Results - last 24 hr 11/13/23 22:05: WBC 10.6, RBC 5.17, Hgb 15.3, Hct 46.4, MCV 89.7, MCH 29.6, MCHC 33.0, RDW Std Deviation 48.9 H, RDW Coeff of Manuela 14.7 H, Plt Count 160, MPV 11.6, Immature Gran % (Auto) 0.500, Neut % (Auto) 88.5 H, Lymph % (Auto) 3.8 L, [place] % (Auto) 6.4, Eos % (Auto) 0.6, Baso % (Auto) 0.2, Absolute Neuts (auto) 9.4 H, Absolute Lymphs (auto) 0.40 L, Nucleated RBC % 0, Differential Comment SEE COMMENT, Platelet Estimate ADEQUATE, RBC Morphology N CHROM, Anisocytosis RARE, Macrocytosis RARE, PT 15.1 H, INR 1.2, APTT 31.3, Sodium 139, Potassium 3.5, Chloride 107, Carbon Dioxide 25.0, Anion Gap 7, BUN 17, Creatinine 0.82, Estim Creat Clear Calc 79.29, Est GFR (MDRD) Af Amer 117, Est GFR (MDRD) Non-Af 97, BUN/Creatinine Ratio 20.8 H, Glucose 109 H, Lactic Acid 1.1, Calcium 8.4 L, Total Bilirubin 1.40 H, AST 24, ALT < 6 L, Alkaline Phosphatase 86, Total Protein 6.7, Albumin 3.0 L, Globulin 3.7, Albumin/Globulin Ratio 0.8 L 11/13/23 23:50: Urine Color Yellow, Urine Clarity Clear, Urine pH 7.0, Ur Specific [place] 1.015, Urine Protein 30 H, Urine Glucose (UA) Normal, Urine Ketones 5 H, Urine Occult Blood 25 H, Urine Nitrite Negative, Urine Bilirubin Negative, Urine Urobilinogen 1 H, Ur Leukocyte Esterase 25 H, Urine RBC 0-5 SEEN, Urine WBC 0-5 SEEN, Ur Squamous Epith Cells 0 SEEN, Urine Bacteria 0 SEEN, Urine Mucus 0 SEEN Micro: Microbiology 11/13/23 22:05 Mucosa - Nose SARS-CoV-2, Influenza & RSV (PCR) - Final Imaging Radiology Impression Chest X-Ray 11/13/23 22:35 IMPRESSION: Left basilar atelectasis or infiltrate with small left pleural effusion, possible pneumonia. Electronically Signed: Jimena Sifuentes MD at 22:57 EDT , Assessment & Plan Assessment/Plan (1) Cellulitis of left elbow: (2) Pneumonia: QUALIFIERS: Laterality: left Lung location: lower lobe of lung Pneumonia type: due to unspecified organism Qualified Code(s): J18.9 - Pneumonia, unspecified organism (3) Respiratory insufficiency: (4) Weakness: (5) Ambulatory dysfunction: (6) Parkinsons disease: QUALIFIERS: Dyskinesia presence: unspecified whether dyskinesia Fluctuating manifestations: with fluctuating manifestations Qualified Code(s): G20.A2 - Parkinson's disease without dyskinesia, with fluctuations PLAN: Plan 1. Cellulitis of the Left elbow; with a known history of MRSA causing cellulitis - Admit to general medical floor under contact precautions. Give IV vancomycin and await culture and sensitivity data. Give Tylenol as needed for [id number] (level 1-5/10) pain or fever. Continue Tramadol prn for severe (level 6-10/10) pain. 2. Left basilar infiltrate consistent with suspected Pneumonia complicating #1 - Check CT scan of the chest without contrast to confirm infiltrate. Give IV Zosyn and await culture and sensitivity data. Check urine antigens for Legionella and Streptococcus pneumonia. Give Mucinex 600 mg p.o. twice daily. Encourage use of incentive spirometry. 3. Respiratory insufficiency arising from #1 & #2 - Wean supplemental oxygen as tolerated. 4. Acute generalized weakness with ambulatory dysfunction in setting of chronic Parkinson's disease with recent fall due to #1 - #3 - Continue Parkinson's medications as previous. PT/OT and case management to consult and treat in the a.m. on rounds without appreciated in advance. 5. Recent acute cystitis - Resolved with UA negative on admission. 6. Essential hypertension - Resume home medications plus give as needed IV hydralazine for systolic blood pressure greater than 160 mmHg. 7. Obesity; with BMI of 32 this admission - Weight loss will be recommended. Check TSH in light of #4. 8. Chronic dementia; on memantine - Home regimen to continue as previous. 9. History of DVT - Noted. 10. Cardiomyopathy; with history of mitral valve insufficiency - Noted. 11. History of atrial fibrillation; s/p DCCV (2016) - Noted. 12. History of prostate cancer; with subsequent chronic radiation cystitis - Stable. 13. History of obstructive uropathy - Noted. 14. Glaucoma - Resume eyedrops as previous. 15. History of cataract; s/p extraction - Noted. 16. History of severe sepsis - Noted. 17. History of hernia repair - Noted. 18. Osteoarthritis - Give Tylenol as needed. 19. DVT prophylaxis - Lovenox 40 mg sq daily. Total time: Approximately 75 minutes. Charges/Coding Visit Charges Inpatient E&M: 68768 Init Hosp L3
--- NOTE | 2023-11-14 04:30 | CT_ITS ---
INDICATION: LLL Pneumonia suggested on CXR. EXAMINATION: CT CHEST WITHOUT CONTRAST - CT Chest W/O Contrast Injection TECHNIQUE: Helically acquired images were obtained of the chest. A radiation dose optimization technique was used for this scan. IV Contrast dosage and agent: None. RADIATION DOSAGE (If Supplied By Facility): CTDIvol = ( 18.00 ) mGy, DLP = ( 661.37 ) mGycm COMPARISON: Chest x-ray 11/13/2023 FINDINGS: LUNGS: Minimal dependent atelectasis in the lower lobes. No consolidation. LARGE AIRWAYS: Unremarkable. PLEURA: Small bilateral pleural effusions. No pneumothorax. MEDIASTINUM: Several prominent lymph nodes in the mediastinum, largest precarinal node is 1.0 cm in short axis which is borderline enlarged. Small hiatal hernia. HEART: Mildly enlarged. CORONARY ARTERIES: Coronary artery calcification is seen. AORTA/VESSELS: No aortic aneurysm. ESOPHAGUS: Unremarkable. UPPER ABDOMEN: Gallbladder wall is prominent with mild adjacent stranding, partially included. No calcified gallstones identified in the included portion. BONES/SOFT TISSUES: No acute abnormality. OTHER/LINES: None. CT/Chest without Contrast IMPRESSION: Small bilateral pleural effusions. No consolidation. Prominent gallbladder wall with adjacent stranding. Ultrasound correlation may be helpful if clinically indicated. Electronically Signed: Jimena Sifuentes MD at 6:08 EDT ,
--- NOTE | 2023-11-14 04:48 | CT_ITS ---
EXAM: CT Foot W/O Contrast Injection RIGHT HISTORY: right foot, r/o forein body TECHNIQUE: Axial images obtained through the foot without IV contrast. Sagittal and coronal reformats were provided. IV Contrast: None.. RADIATION DOSAGE (If Supplied By Facility): CTDIvol = ( 15.35 ) mGy, DLP = ( 369.11 ) mGycm Individualized dose optimization techniques were used for this CT. COMPARISON: None. LIMITATIONS: None. FINDINGS: There is a 0.6 x 0.3 x 0.5 mm opaque foreign body within the soft tissues adjacent to the fifth metatarsal head plantar medial aspect, adjacent to the cortex. Localized low attenuation collection in the adjacent soft tissues plantar extending laterally along the distal fifth metatarsal, measures approximately 2.5 x 0.7 x 2.0 cm, possible abscess. Overlying soft tissue thickening. There is focal lucency in the metatarsal head adjacent to the foreign body. 4 diffuse soft tissue swelling dorsally. The bones are osteopenic. Old fracture deformity distal tibia and fibula. CT/Extremity Lower without Contra IMPRESSION: Small object adjacent to the fifth metatarsal head likely foreign body. Adjacent soft tissue collection possible abscess. Subtle lucency in the adjacent fifth metatarsal head can be a sign of osteomyelitis. Electronically Signed: Jimena Sifuentes MD at 6:37 EDT ,
--- NOTE | 2023-11-14 05:26 | PCM.RX.CS ---
Consult Antibiotic Management Pharmacy has been consulted to manage selected antibiotic: Vancomycin Type of Intervention Type of Consult: New start Suspected Infection Suspected Infection: Skin/Soft tissue Labs Labs: Sodium 139 mmol/L (136-145) 11/13/23 22:05 Potassium 3.5 mmol/L (3.5-5.1) 11/13/23 22:05 Chloride 107 mmol/L (98-107) 11/13/23 22:05 Carbon Dioxide 25.0 mmol/L (21.0-32.0) 11/13/23 22:05 Anion Gap 7 (5-15) 11/13/23 22:05 BUN 17 mg/dL (7-18) 11/13/23 22:05 Creatinine 0.82 mg/dL (0.70-1.30) 11/13/23 22:05 Est GFR (MDRD) Af Amer 117 mL/min (>60) 11/13/23 22:05 Est GFR (MDRD) Non-Af 97 mL/min (>60) 11/13/23 22:05 BUN/Creatinine Ratio 20.8 RATIO (10-20) H 11/13/23 22:05 Glucose 109 mg/dL (74-106) H 11/13/23 22:05 Microbiology Microbiology: Microbiology 11/13/23 22:05 Mucosa - Nose SARS-CoV-2, Influenza & RSV (PCR) - Final Dosing Weight Weight used for dosin.3 kg Estimated Creatinine Clearance Estimated Creatinine Clearance: 77.8 Goal Trough Goal Trough: 15-20 mcg/mL Pharmacy Plan for Drug Dosing Pharmacy Plan for Drug Dosing: NEW START IV VANCOMYCIN Consulting Physician: Dr. Major Indication: Cellulitis Goal Trough: 15-20 SrCr: 0.82 CrCl: 77.8 ml/min (AdjBW 75.3 kg) Comments: Loading dose 2000mg x1 ordered Vancomycin Dose: Vancomycin 1000mg Q12H to start at 18:00 11/14/23 Pending Level: Vancomycin trough @ 17:30 11/15/23 prior to 4th dose Pharmacy Service will continue to monitor and adjust dosing as required. Follow-Up Labs Follow-Up Labs: Trough: Vancomycin (17:30 11/15/23)
--- NOTE | 2023-11-14 05:28 | NURSING ---
Pt off floor for CT
[2023-11-14] MEDS: 0.9% Normal Saline (1000mL) 1,000 ML 70 ML IV (05:58)
[2023-11-14] MEDS: Piperacil/Tazobactam 3.375 GM in 0.9% Normal Saline (50mL MB+) 50 ML IV (06:04)
[2023-11-14] MEDS: Vancomycin HCl 2,000 MG in 0.9% Normal Saline (500mL Bag) 500 ML 250 MG IV (06:05)
[2023-11-14 08:07] LABS: Absolute Lymphocyte Count 0.56 X10^3/uL (0.83-4.51); Absolute Neutrophil Count 10.3 X10^3/uL (2.0-7.7); Basophil# 0.01 X10^3/uL; Basophil% 0.1 % (0-1); Eosinophils% 0.8 % (0-5); Hematocrit 46.3 % (40-54); Hemoglobin 15.1 g/dL (13.0-16.5); Lymphocyte # 0.56 X10^3/ul (0.83-4.51); Lymphocyte % 4.7 % (19-41); Mean Corp Hgb Conc 32.6 g/dL (32-36); Mean Corpuscular Hgb 29.5 pg (27.0-32.0); Mean Corpuscular Volume 90.6 fL (80-94); Mean Platelet Vol. 11.8 fl (6.2-12.0); Monocyte% 7.6 % (0-10); NRBC Flagged by Analyzer 0 % (0-5); Neutrophil # 10.26 X10^3/uL (2.7-7.7); POSITIVE DIFFERENTIAL YES; Platelet Count 155 K/mm3 (150-450); RBC Distribution Width CV 14.8 % (11.6-14.6); RBC Distribution Width SD 49.5 fl (35.1-43.9); Red Blood Count 5.11 M/mm3 (4.6-6.2); White Blood Count 11.9 K/mm3 (4.4-11.0)
[2023-11-14 08:35] LABS: ALB/GLOB Ratio 0.8 RATIO (0.9-2.4); AST(SGOT) 12 U/L (15-37); Alanine Aminotransfer ALT/SGPT < 6 U/L (16-61); Albumin, Serum 2.7 g/dL (3.2-5.0); Alkaline Phosphatase 80 U/L (45-117); Anion Gap 5 (5-15); BUN 15 mg/dL (7-18); BUN/Creat Ratio 18.5 RATIO (10-20); Calcium,Total 8.5 mg/dL (8.5-10.1); Chloride 108 mmol/L (98-107); Creatinine, Serum 0.81 mg/dL (0.70-1.30); EST Glomerular Filtration Rate 98 mL/min (>60); Est Glom Filt Rate - Afr Amer 118 mL/min (>60); Estimated Creatinine Clearance 78.79 ml/min; Globulin 3.6 g/dL (2.2-4.2); Glucose 97 mg/dL (74-106); Phosphorus 2.4 mg/dL (2.5-4.9); Potassium 3.5 mmol/L (3.5-5.1); Protein, Total 6.3 g/dL (6.4-8.2); Sodium Level 139 mmol/L (136-145)
[2023-11-14] MEDS: traMADol 50 MG Tablet PO ×2 (09:26→22:14)
[2023-11-14] MEDS: dilTIAZem CD 120 MG Capsule PO (09:28)
[2023-11-14] MEDS: CARBIDOPA/LEVODOPA CR 50/200 Tablet PO ×4 (09:28→21:34)
[2023-11-14] MEDS: Carbidopa/Levodopa 25/100 Tablet PO ×2 (09:28→21:36)
[2023-11-14] MEDS: Aspirin E.C. 81 MG Tablet PO (09:28)
[2023-11-14] MEDS: Furosemide 40 MG Tablet PO (09:29)
[2023-11-14] MEDS: Pramipexole Di-HCl 0.5 MG Tablet 1 MG PO ×4 (09:29→21:33)
[2023-11-14] MEDS: Tamsulosin HCl 0.4 MG Capsule PO (09:29)
[2023-11-14] MEDS: Memantine Hydrochloride 10 MG Tablet PO ×2 (09:29→21:34)
[2023-11-14] MEDS: guaiFENesin 600 MG Tablet PO ×2 (09:30→21:35)
[2023-11-14] MEDS: prednisoLONE eye drops (5 mL) 1 DROP OPTH.BTL 1 DRP LEFT EYE ×2 (09:31→21:30)
[2023-11-14] MEDS: Dorzolamide HCL/Timolol 10 ml Bottle 1 DRP OPHTHALMIC ×2 (09:32→21:31)
--- NOTE | 2023-11-14 10:10 | CASEMGMT ---
LUIS ZAYAS Face to Face with patient for initial transition planning/care coordination assessment. RN CM introduced self and role at [facility]. Patient lying in bed, sleeping, and daughter at bedside. Patient willing to participate in assessment and is able to answer all questions appropriately. Care providers, pharmacy, and demographics verified. PCP: [facility] Specialists: Gera, neurologist; Yamilka, urologist; Osmin, professional driver; Javier, pain Preferred Pharmacy: [facility] Insurance: [employer] [facility] Prescription Benefit: yes Living Will/HPOA: yes, Snow Carlson LNOK: , daughters Living Arrangements: Patient lives with in a single story home with 2 steps and grab bar to enter. Patient was independent at home, assisted at times Transportation: DME/HHC: Patient has shower chair, raised toilet, cane, walker, grab bars at home. Patient has had [facility] HHC in the past. No previous SNF wishes for patient to discharge home, will monitor progress with therapy for recommendations. Wive states she has no further needs or concerns at this time. CM to follow for discharge planning needs that may arise. Disposition Plan: TBD, anticipate HHC vs SNF pending progress with therapy, will monitor Joaquina SPICER, RN, CM
--- NOTE | 2023-11-14 12:01 | MRI_ITS ---
INDICATION: cellulitis left elbow EXAMINATION: MRI - LEFT MR Elbow WO/W Contrast TECHNIQUE: Multiplanar and multisequence MR images of the left elbow. IV Contrast Dosage and Agent: None. COMPARISON: None. FINDINGS: SOFT TISSUES: Extensive diffuse edema throughout the soft tissues about the elbow with scattered irregular pockets of confluent fluid. Focal organized fluid collection posterior to the olecranon spanning 2.6 x 1.2 x 3.8 cm with irregular thickened wall concerning for abscess. The ulnar nerve is normal in the cubital tunnel. BONE: No fracture or abnormal bone marrow signal. JOINT: Normal elbow alignment. Small diffuse elbow effusion. Articular cartilage intact.] [No joint effusion. MUSCLES: Normal muscle bulk and signal. LIGAMENTS: The medial and lateral ligaments are intact. TENDONS: The medial common flexor and lateral common extensor tendons demonstrate normal signal characteristics. The triceps and biceps tendon are intact. MRI/Upper Ext Joint Only W/WO Cont IMPRESSION: Extensive diffuse soft tissue edema about the elbow with scattered areas of irregular disorganized fluid concerning for cellulitis. Additional concern for organized 3.8 cm abscess posterior to the olecranon within the subcutaneous fat. Nonspecific small diffuse elbow joint effusion. Cannot exclude intra-articular infection in the setting of surrounding cellulitis. No evidence of osteomyelitis or focal osseous destruction Electronically Signed: Alexander Shields MD at 19:36 EDT ,
--- NOTE | 2023-11-14 13:55 | RAD_ITS ---
HISTORY HX METAL TO EYE; PRE MRI. TECHNIQUE: XR Orbits Clearance FB. COMPARISON: None. FINDINGS: ORBITS: No metallic foreign body identified. OSSEOUS STRUCTURES: Symmetric appearance. Opacification of the left maxillary sinus. SOFT TISSUES: Dental implants noted. RAD/Orbits for Foreign Body IMPRESSION: No metallic foreign body identified in the orbits. Electronically Signed: Ruby Tay MD at 14:15 EDT ,
--- NOTE | 2023-11-14 15:00 | PCM.CONS.GEN ---
Assessment & Plan Assessment/Plan (1) Cellulitis of left elbow: PLAN: Chest CT showed no consolidation. L elbow MRI pending. Will narrow to vanc/cefazolin. Will follow, thank you HPI Consult Data Date of Consult: 11/14/23 HPI Narrative Reason for Consultation: cellulitis HPI Narrative: KAREN MOYA, is a 78 M with h/o htn, prostate cancer, parkinson's, DVT, presented after fall 2 days prior, hit L elbow on the concrete, developed progressive pain, redness, and swelling. No fever or chills. Had increased fatigue and weakness, sent to ED 11/12. Admitted on vanc/zosyn after azithro/ceftriaxone. Family at bedside provided additional history. Full ROS performed and neg except as noted above. [facility] Medical History ALFRED (acute kidney injury) Atrial fibrillation Bladder outflow obstruction Bladder stone Blister of left leg Cardiomyopathy in other diseases classified elsewhere Cellulitis Chronic radiation cystitis Declining functional status DVT (deep venous thrombosis) Failure of outpatient treatment Hematuria History of blistering sunburn History of prostate cancer Hypertension Localized edema skilled nursing use of drug Lower extremity edema Mitral valve insufficiency Non-pressure chronic ulcer of left calf with fat layer exposed Obstructive uropathy Other secondary pulmonary hypertension Parkinsons disease Persistent atrial fibrillation Prostate cancer Severe sepsis Traumatic open wound of left lower leg with infection Urethral stricture Urinary retention UTI (urinary tract infection) Wound of left foot Home Medications carbidopa ER 50 mg-levodopa 200 mg tablet,extended release 1 tablet PO 4X/DAY parkinsons 09/25/20 [History Last Taken 11/13/23] dorzolamide 22.3 mg-timolol 6.8 mg/mL eye drops 1 - 2 drp ophthalmic (eye) BID glaucoma 09/25/20 [History Last Taken 11/13/23] prednisolone acetate 1 % eye drops,suspension 1 drp LEFT EYE Q12H vision 11/13/20 [History Last Taken 11/13/23] pramipexole 0.5 mg tablet 1 mg PO 4X/DAY . 04/28/21 [History Last Taken 11/13/23] latanoprost 0.005 % eye drops 1 drp RIGHT EYE QHS eye he 09/10/21 [History Last Taken 11/13/23] memantine 10 mg tablet 10 mg PO BID MEMORY 09/10/21 [History Last Taken 11/13/23] aspirin 81 mg tablet,delayed release 81 mg PO DAILY HEALTH #90 tabs 05/10/22 [Rx Last Taken 11/13/23] diltiazem HCl 120 mg capsule,24 hr,extended release See Rx Instructions .Route .COMPLEX heart #90 CAPSULES 02/03/23 [Rx Last Taken 11/13/23] tamsulosin 0.4 mg capsule 0.4 mg PO DAILY pros 03/14/23 [History Last Taken 11/13/23] carbidopa 25 mg-levodopa 100 mg tablet 1 tab PO BID luisa 08/05/23 [History Last Taken 11/13/23] albuterol sulfate 90 mcg/actuation aerosol inhaler 1 inh inhalation Q6H PRN shortness of breath or wheezing #8.5 grams 08/08/23 [Rx Last Taken 11/13/23] inhalational spacing device (Space Chamber) #1 ea 08/08/23 [Rx Last Taken Unknown] torsemide 20 mg tablet 20 mg PO DAILY fluid overloa 30 days #30 tabs 08/09/23 [Rx Last Taken 11/13/23] celecoxib 200 mg capsule (Celebrex) 200 mg PO DAILY PRN pain 09/28/23 [History Last Taken 11/13/23] tramadol 50 mg tablet 50 mg PO TID PRN pain 09/28/23 [History Last Taken 11/13/23] Allergy/AdvReac Type Severity Reaction Status Date / Time lidocaine Allergy Angioedema Verified 09/28/23 11:40 peppermint Allergy Angioedema Verified 09/28/23 11:40 phenylephrine Allergy Angioedema Verified 09/28/23 11:40 doxycycline AdvReac Intermediate SUNBURN Verified 09/28/23 11:40 Family History Brother Atrial fibrillation Surgical History History of cataract extraction History of hernia repair History of incision and drainage (~09/2021) Social History Smoking Status: Never smoker alcohol intake: never substance use type: does not use caffeine: Yes Type: carbonated beverages Number of servings: 1 Physical Exam Const no apparent distress General Appearance: cooperative and lethargic HEENT normocephalic and head/scalp atraumatic Eyes PERRL and EOMs intact bilaterally Neck supple and No nodes Resp normal air movement and clear to auscultation bilaterally Cardio regular rate and regular rhythm GI soft to palpation, non-tender and non-distended Extremity General Extremity: edema Skin Skin Narrative: L elbow swelling, redness, warmth Neuro CN's II-XII intact bilaterally Lab / Micro Data Attestation: I reviewed the patient's lab results. 11/14/23 07:52 11/14/23 07:52 Labs: Laboratory Results - last 24 hr 11/13/23 22:05: WBC 10.6, RBC 5.17, Hgb 15.3, Hct 46.4, MCV 89.7, MCH 29.6, MCHC 33.0, RDW Std Deviation 48.9 H, RDW Coeff of Manuela 14.7 H, Plt Count 160, MPV 11.6, Immature Gran % (Auto) 0.500, Neut % (Auto) 88.5 H, Lymph % (Auto) 3.8 L, Arroyo % (Auto) 6.4, Eos % (Auto) 0.6, Baso % (Auto) 0.2, Absolute Neuts (auto) 9.4 H, Absolute Lymphs (auto) 0.40 L, Nucleated RBC % 0, Differential Comment SEE COMMENT, Platelet Estimate ADEQUATE, RBC Morphology N CHROM, Anisocytosis RARE, Macrocytosis RARE, PT 15.1 H, INR 1.2, APTT 31.3, Sodium 139, Potassium 3.5, Chloride 107, Carbon Dioxide 25.0, Anion Gap 7, BUN 17, Creatinine 0.82, Estim Creat Clear Calc 79.29, Est GFR (MDRD) Af Amer 117, Est GFR (MDRD) Non-Af 97, BUN/Creatinine Ratio 20.8 H, Glucose 109 H, Lactic Acid 1.1, Calcium 8.4 L, Total Bilirubin 1.40 H, AST 24, ALT < 6 L, Alkaline Phosphatase 86, Total Protein 6.7, Albumin 3.0 L, Globulin 3.7, Albumin/Globulin Ratio 0.8 L 11/13/23 23:50: Urine Color Yellow, Urine Clarity Clear, Urine pH 7.0, Ur Specific [place] 1.015, Urine Protein 30 H, Urine Glucose (UA) Normal, Urine Ketones 5 H, Urine Occult Blood 25 H, Urine Nitrite Negative, Urine Bilirubin Negative, Urine Urobilinogen 1 H, Ur Leukocyte Esterase 25 H, Urine RBC 0-5 SEEN, Urine WBC 0-5 SEEN, Ur Squamous Epith Cells 0 SEEN, Urine Bacteria 0 SEEN, Urine Mucus 0 SEEN 11/14/23 07:52: WBC 11.9 H, RBC 5.11, Hgb 15.1, Hct 46.3, MCV 90.6, MCH 29.5, MCHC 32.6, RDW Std Deviation 49.5 H, RDW Coeff of Manuela 14.8 H, Plt Count 155, MPV 11.8, Immature Gran % (Auto) 0.800, Neut % (Auto) 86.0 H, Lymph % (Auto) 4.7 L, Arroyo % (Auto) 7.6, Eos % (Auto) 0.8, Baso % (Auto) 0.1, Absolute Neuts (auto) 10.3 H, Absolute Lymphs (auto) 0.56 L, Nucleated RBC % 0, Sodium 139, Potassium 3.5, Chloride 108 H, Carbon Dioxide 26.0, Anion Gap 5, BUN 15, Creatinine 0.81, Estim Creat Clear Calc 78.79, Est GFR (MDRD) Af Amer 118, Est GFR (MDRD) Non-Af 98, BUN/Creatinine Ratio 18.5, Glucose 97, Calcium 8.5, Phosphorus 2.4 L, Magnesium 2.0, Total Bilirubin 1.30 H, AST 12 L, ALT < 6 L, Alkaline Phosphatase 80, Total Protein 6.3 L, Albumin 2.7 L, Globulin 3.6, Albumin/Globulin Ratio 0.8 L Micro: Microbiology 11/13/23 22:05 Mucosa - Nose SARS-CoV-2, Influenza & RSV (PCR) - Final Imaging Radiology Impression Chest X-Ray 11/13/23 22:35 IMPRESSION: Left basilar atelectasis or infiltrate with small left pleural effusion, possible pneumonia. Electronically Signed: Jimena Sifuentes MD at 22:57 EDT , Chest CT 11/14/23 04:30 IMPRESSION: Small bilateral pleural effusions. No consolidation. Prominent gallbladder wall with adjacent stranding. Ultrasound correlation may be helpful if clinically indicated. Electronically Signed: Jimena Sifuentes MD at 6:08 EDT , Lower Extremity CT 11/14/23 04:48 IMPRESSION: Small object adjacent to the fifth metatarsal head likely foreign body. Adjacent soft tissue collection possible abscess. Subtle lucency in the adjacent fifth metatarsal head can be a sign of osteomyelitis. Electronically Signed: Jimena Sifuentes MD at 6:37 EDT , Orbit X-Ray 11/14/23 13:55 IMPRESSION: No metallic foreign body identified in the orbits. Electronically Signed: Ruby Tay MD at 14:15 EDT ,
[2023-11-14] MEDS: Vancomycin IV 1,000 MG/200 ML BAG 200 MG IV (18:30)
[2023-11-14] MEDS: Enoxaparin 40 MG/0.4 ML Syringe SC (18:30)
--- NOTE | 2023-11-14 19:11 | PCM.HOSP.N ---
Hospitalist Note Patient was seen and examined today, I spent some time talking with his family who was in the room at the time my examination. I had infectious diseases see the patient and ordered an MRI of his left elbow to rule out an abscess-at the time of this dictation the MRI result is pending. Patient is currently on vancomycin and Zosyn, ID feels this is appropriate for now until we can get a further identification of what is going on. I briefly looked at the patient's right foot, there is a small eschared area but there is no edema or redness of the area, I talked briefly with podiatry who he sees on a chronic basis (Dr. Salazar) he states that the patient has been told to offload his right foot but does not want to wear diabetic shoes to do this. I explained this to the patient's daughter who was in the room today. For now, patient's antibiotic coverage will remain the same.
[2023-11-14] MEDS: Lactobacillis Acidophilus 2 CAP PO (21:31)
[2023-11-14] MEDS: Latanoprost 0.005% 1 Bottle 1 DRP RIGHT EYE (21:36)
[2023-11-14] MEDS: Cefazolin 2 GM in 0.9% Normal Saline (100mL Bag) 100 ML IV (22:10)
[2023-11-15] VITALS (18 sets, daily range): BP systolic 109–128; BP diastolic 60–82; PULSE 82–97; RESP 16–19; TEMP 36–37.4; O2SAT 92–99; BMI 31.2
[2023-11-15] MEDS: 0.9% Normal Saline (1000mL) 1,000 ML 70 ML IV (01:57)
[2023-11-15] MEDS: Cefazolin 2 GM in 0.9% Normal Saline (100mL Bag) 100 ML IV ×3 (06:19→22:31)
[2023-11-15] MEDS: Vancomycin IV 1,000 MG/200 ML BAG 200 MG IV ×2 (06:20→19:05)
[2023-11-15] MEDS: dilTIAZem CD 120 MG Capsule PO (09:16)
[2023-11-15] MEDS: Pramipexole Di-HCl 0.5 MG Tablet 1 MG PO ×3 (09:17→22:00)
[2023-11-15] MEDS: CARBIDOPA/LEVODOPA CR 50/200 Tablet PO ×3 (09:17→22:01)
[2023-11-15] MEDS: Carbidopa/Levodopa 25/100 Tablet PO ×2 (09:17→22:00)
[2023-11-15] MEDS: prednisoLONE eye drops (5 mL) 1 DROP OPTH.BTL 1 DRP LEFT EYE ×2 (09:19→22:24)
[2023-11-15] MEDS: Dorzolamide HCL/Timolol 10 ml Bottle 1 DRP OPHTHALMIC ×2 (09:21→21:59)
--- NOTE | 2023-11-15 10:31 | PCM.PN.ID ---
Physical Exam Narrative Arm not any better, no fever Const alert and no apparent distress Resp normal air movement and clear to auscultation bilaterally Cardio regular rate and regular rhythm GI soft to palpation, non-tender and non-distended Skin Skin Narrative: L elbow with swelling, redness, warmth, tenderness ID ID: Route of nutrition/ use of supplements: [] Nutritional Intake: [] IV Site: [] Somers Catheter: [] Assessment & Plan Assessment/Plan (1) Cellulitis of left elbow: PLAN: Chest CT showed no consolidation. L elbow MRI showed possible abscess, ortho consulted. Cont vanc/cefazolin. Will follow
[2023-11-15] MEDS: Lactated Ringers 1,000 ML 15 ML IV (12:49)
--- NOTE | 2023-11-15 14:38 | CONS.ORTHO ---
HPI Consult Data Date of Consult: 11/15/23 HPI Narrative Reason for Consultation: Left elbow pain HPI Narrative: KAREN MOYA, is a 78 M with history of Parkinson's and multiple medical comorbidities including dementia who presents pain and swelling in his left elbow. 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 He presented to the hospital 2 days ago with pain and swelling around his elbow. He had delays and fevers on the day of presentation. Has been started on Vanco and Zosyn. He seems to be responding his family states he is more responsive and alert. There is still an area of erythema which is like less intense than it was in the last 24 hours. However he has pain with elbow range of motion prickly over the olecranon. There was an MRI obtained showing an abscess or bursa over the olecranon with significant fluid. Orthopedics was consulted for the abscess or bursitis. Patient has been on antibiotics for 48 hours and continues to have swelling and erythema. Family is at bedside and confirmed the history. He did have some falls but I do not appreciate any abrasions needed to see. [facility] Medical History UTI (urinary tract infection) Wound of left foot Mitral valve insufficiency Blister of left leg Lower extremity edema History of blistering sunburn Non-pressure chronic ulcer of left calf with fat layer exposed Cellulitis Atrial fibrillation Declining functional status Failure of outpatient treatment Traumatic open wound of left lower leg with infection Obstructive uropathy Bladder stone Urethral stricture ALFRED (acute kidney injury) Severe sepsis Urinary retention Parkinsons disease Chronic radiation cystitis History of prostate cancer DVT (deep venous thrombosis) Hematuria Bladder outflow obstruction Prostate cancer Localized edema Hypertension 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 04/28/21 11/13/23 History latanoprost 0.005 % eye drops 1 drp RIGHT EYE QHS eye he 09/10/21 11/13/23 History memantine 10 mg tablet 10 mg PO BID MEMORY 09/10/21 11/13/23 History aspirin 81 mg tablet,delayed 81 mg PO DAILY HEALTH #90 tabs 05/10/22 11/13/23 Rx release diltiazem HCl 120 mg capsule,24 See Rx Instructions .Route 02/03/23 11/13/23 Rx hr,extended release .COMPLEX heart #90 CAPSULES tamsulosin 0.4 mg capsule 0.4 mg PO DAILY pros 03/14/23 11/13/23 History carbidopa 25 mg-levodopa 100 mg 1 tab PO BID luisa 08/05/23 11/13/23 History tablet albuterol sulfate 90 mcg/actuation 1 inh inhalation Q6H PRN shortness 08/08/23 11/13/23 Rx aerosol inhaler of breath or wheezing #8.5 grams inhalational spacing device (Space #1 ea 08/08/23 Unknown Rx Chamber) torsemide 20 mg tablet 20 mg PO DAILY fluid overloa 30 08/09/23 11/13/23 Rx days #30 tabs celecoxib 200 mg capsule (Celebrex) 200 mg PO DAILY PRN pain 09/28/23 11/13/23 History tramadol 50 mg tablet 50 mg PO TID PRN pain 09/28/23 11/13/23 History Allergy/AdvReac Type Severity Reaction Status Date / Time lidocaine Allergy Angioedema Verified 09/28/23 11:40 peppermint Allergy Angioedema Verified 09/28/23 11:40 phenylephrine Allergy Angioedema Verified 09/28/23 11:40 doxycycline AdvReac Intermediate SUNBURN Verified 09/28/23 11:40 Family History Brother Atrial fibrillation no significant family history Surgical History History of incision and drainage (~09/2021) History of cataract extraction History of hernia repair Social History Smoking Status: Never smoker alcohol intake: never substance use type: does not use caffeine: Yes Type: carbonated beverages Number of servings: 1 ROS ROS Narrative 14 point review of systems outside was mentioned in the HPI is negative. He does have chronic leg wound. Constitutional Constitutional: Reports as per HPI Vital Signs Vital Signs Vital Signs: 11/14/23 16:00 11/14/23 22:00 11/14/23 22:00 Temperature 99.8 F H 98.0 F Temperature Source Oral Oral Pulse Rate 88 78 Respiratory Rate 18 18 Respiratory Effort Normal Non-Labored Respiratory Depth Normal Respiratory Pattern Normal Blood Pressure 121/72 H 125/76 H Blood Pressure Mean 88 92 Blood Pressure Source Monitor Monitor Blood Pressure Position Semi-Fowlers Semi-Fowlers Blood Pressure Location Right Arm Right Arm Pulse Ox 93 95 97 Oxygen Delivery Method Room Air Room Air Room Air 11/15/23 00:00 11/15/23 02:33 11/15/23 06:00 Temperature 96.8 F L 96.8 F L Temperature Source Oral Oral Pulse Rate 97 97 Respiratory Rate 18 18 Respiratory Effort Normal Non-Labored Respiratory Depth Normal Respiratory Pattern Normal Blood Pressure 112/78 116/74 Blood Pressure Mean 89 88 Blood Pressure Source Blood Pressure Position Blood Pressure Location Pulse Ox 95 97 95 Oxygen Delivery Method Room Air Room Air Room Air 11/15/23 07:14 11/15/23 07:55 11/15/23 09:07 Temperature 97.8 F 99.3 F H Temperature Source Oral Oral Pulse Rate 82 88 Respiratory Rate 18 17 Respiratory Effort Respiratory Depth Respiratory Pattern Blood Pressure 118/74 118/72 Blood Pressure Mean 88 87 Blood Pressure Source Monitor Monitor Blood Pressure Position Semi-Fowlers Semi-Fowlers Blood Pressure Location Right Arm Right Arm Pulse Ox 92 95 94 Oxygen Delivery Method Room Air Room Air Room Air 11/15/23 09:35 Temperature Temperature Source Pulse Rate Respiratory Rate Respiratory Effort Respiratory Depth Respiratory Pattern Blood Pressure Blood Pressure Mean Blood Pressure Source Blood Pressure Position Blood Pressure Location Pulse Ox Oxygen Delivery Method Room Air Weight Weight: 199 lb 11.821 oz Body Mass Index (BMI) 31.2 Physical Exam Const alert and oriented x3 HEENT normocephalic Eyes PERRL Neck no JVD Resp normal respiratory effort GI non-distended Extremity Extremity Narrative: Left upper extremity: Patient has significant swelling of the arm and into the distal extremity. He has swelling and edema of the digits. He has pain over the olecranon with range of motion. There is bogginess over the olecranon. There is erythema outlined with minimal resection. Positive thumbs up, okay sign, cross his fingers. Sensations intact light touch R/M/U distally. Skin Skin Narrative: Erythema around elbow. Neuro CN's II-XII intact bilaterally Psych affect normal Medical Records Data Attestation: I reviewed the patient's medical records Lab / Micro Data Attestation: I reviewed the patient's lab results. 11/14/23 07:52 11/14/23 07:52 Micro: Microbiology 11/13/23 23:50 Urine, Catheterized Urine Culture - Final Mixed Gram Positive Organisms 11/14/23 04:30 Urine, Clean Catch Legionella Antigen - Final 11/14/23 04:30 Urine, Clean Catch Streptococcus pneumoniae Antigen (M - Final Imaging Radiology Impression Upper Extremity MRI 11/14/23 12:01 IMPRESSION: Extensive diffuse soft tissue edema about the elbow with scattered areas of irregular disorganized fluid concerning for cellulitis. Additional concern for organized 3.8 cm abscess posterior to the olecranon within the subcutaneous fat. Nonspecific small diffuse elbow joint effusion. Cannot exclude intra-articular infection in the setting of surrounding cellulitis. No evidence of osteomyelitis or focal osseous destruction Electronically Signed: Alexander Shields MD at 19:36 EDT Reading Location ID and State: [facility] / [place] Tel , Service support , ADDENDUM: 11/14/232009 IMPRESSION: undefined MRI was reviewed. I believe fluid collection in this area is a septic olecranon bursitis Assessment & Plan Assessment/Plan (1) Septic olecranon bursitis of left elbow: PLAN: Family was at bedside including daughter and . I discussed with the patient and family the clinical pathology and the natural history. Based on the fluid collection and poor response initially to antibiotics as well as continued erythema and bogginess in the elbow I did recommend we consider surgical intervention. Surgical intervention would be irrigation debridement. We discussed direct closure versus leaving the wound open depending on the extent of the wound. Based on his skin today I did feel will be closed. We also discussed postoperatively using a splint for a short period of time to protect the wound as this is a high tension area. Risk and benefits of the procedure were discussed with the patient and family including but not limited to blood loss, DVTs, PEs, nervous damage, fashion, the risk of anesthesia including loss of life. Ultimately, all parties agree proceeding with surgical intervention to decompress the area of fluid collection over the olecranon most consistent with olecranon bursitis is appropriate for today's treatment. Patient is on antibiotics on the floor. He is currently NPO. Will proceed to the operating room today for surgical intervention. [facility] Office:
--- NOTE | 2023-11-15 15:19 | OP.PCM_ITS ---
Report of Operation Date of Procedure: 11/15/23 Pre-Operative Diagnosis: Left septic olecranon bursitis Post-Operative Diagnosis: Left septic olecranon bursitis Surgery/Procedure Performed:: Irrigation debridement left olecranon bursitis Description of Surgical Findings:: Copious amounts of fluid cloudy synovial fluid Surgeon: Kaleb Rosa injection machine operator: Dian Parks Type of Anesthesia: General Anesthesiologist: Yury Hopson Special Medications: Ancef and Vanco on the floor Specimen's removed: Aerobic and anaerobic culture swabs were taken Estimated Blood Loss (mL): 25 Fluids Replaced: 400 mL crystalloid Description of Procedure: On the date of the procedure patient was seen and evaluated in the preoperative area. Reviewed the case with the family. Patient was having minimal response to IV antibiotics. MRI revealed area concerning for abscess or olecranon bursitis presumed to be septic. Based on this we did elect to proceed with surgery. As noted in the consultation risk and benefits were discussed with the patient and all parties including his family were in agreement we should proceed with surgery. Procedure: On the day of the procedure patient was marked in the preoperative area and the left elbow. Patient was brought back to the operating room or anesthesia assumed control the C-spine and airway. The remaining sure throughout the remainder the procedure. Patient was transferred to the table and remained in the supine position where anesthesia administered anesthetic. After anesthetic was administered tourniquet was placed on left upper arm. All bony problems identified well-padded. Left upper extremities then prepped in sterile fashion while surgeon scrubbed. Upon entering the room the left upper extremity was draped in a standard orthopedic fashion. Timeout was called and everyone agreed upon the side, the site, the procedure to be performed, patient's identity and antibiotics given. Incision was marked out over the olecranon and the extremity was elevated. After elevating for period of time the tourniquet was placed up to 250 mmHg. Incision was taken down through skin subtenons tissue fat down to the bursa. The bursa was erupted and we noted synovial cloudy fluid. There was not gross purulence. We then debrided the synovial lining of the olecranon bursitis. We carefully debrided the joint. We used Bovie cautery to maintain hemostasis. Once this was done we irrigated 1 L of normal saline throughout the wound. Once wound was adequately debrided and irrigated out the wound was closed in a layer hills fashion. 2-0 PDS suture was used for the subcutaneous layer and 2-0 nylon suture for the final skin closure. This was closed in a fashion which would allow for continued drainage should this be needed to control infectious margot ology. Xeroform dressing was placed. Elbow was kept at 90 degrees. Well- padded dressing was placed over the elbow incision including 4 x 4 gauze and ABDs. We then wrapped the arm with Webril and placed a posterior splint at 90 degrees flexion. Once the splint is set patient's arm was placed in a sling. Patient was awakened anesthesia and transferred to PACU for recovery in stable condition. Postop plan: Patient will continue on antibiotics per infectious disease service. Patient's splint should be discontinued and wound check in 5 days. If incision is appropriate begin range of motion exercises. Follow-up in orthopedic office in 10 to 14 days. Complications none Admit VTE Documentation VTE Present on Admission: No VTE Mechan Device Prophylaxis: SCD's VTE Pharm Prophylaxis ordered?: No
[2023-11-15 17:46] LABS: Vancomycin, Trough Level 16.8 ug/mL (5.0-15.0)
[2023-11-15] MEDS: Tamsulosin HCl 0.4 MG Capsule PO (17:52)
[2023-11-15] MEDS: Furosemide 40 MG Tablet PO (17:52)
--- NOTE | 2023-11-15 17:56 | PCM.RX.CS ---
Consult Antibiotic Management Pharmacy has been consulted to manage selected antibiotic: Vancomycin Type of Intervention Type of Consult: Follow-up Suspected Infection Suspected Infection: Skin/Soft tissue Labs Labs: Sodium 139 mmol/L (136-145) 11/14/23 07:52 Potassium 3.5 mmol/L (3.5-5.1) 11/14/23 07:52 Chloride 108 mmol/L (98-107) H 11/14/23 07:52 Carbon Dioxide 26.0 mmol/L (21.0-32.0) 11/14/23 07:52 Anion Gap 5 (5-15) 11/14/23 07:52 BUN 15 mg/dL (7-18) 11/14/23 07:52 Creatinine 0.81 mg/dL (0.70-1.30) 11/14/23 07:52 Est GFR (MDRD) Af Amer 118 mL/min (>60) 11/14/23 07:52 Est GFR (MDRD) Non-Af 98 mL/min (>60) 11/14/23 07:52 BUN/Creatinine Ratio 18.5 RATIO (10-20) 11/14/23 07:52 Glucose 97 mg/dL (74-106) 11/14/23 07:52 Vancomycin Trough 16.8 ug/mL (5.0-15.0) H 11/15/23 16:58 Microbiology Microbiology: Microbiology 11/13/23 23:50 Urine, Catheterized Urine Culture - Final Mixed Gram Positive Organisms 11/14/23 04:30 Urine, Clean Catch Legionella Antigen - Final 11/14/23 04:30 Urine, Clean Catch Streptococcus pneumoniae Antigen (M - Final 11/13/23 22:05 Mucosa - Nose SARS-CoV-2, Influenza & RSV (PCR) - Final Goal Trough Goal Trough: 15-20 mcg/mL Pharmacy Plan for Drug Dosing Pharmacy Plan for Drug Dosing: VANCOMYCIN LEVEL RECEIVED Current Vancomycin Dose: 1000mg q12h (,) Number of Doses Received: x1 loading dose, x2 1000mg doses Vancomycin Level: 16.8 Hours Since Last Dose: 10.5 hours since last 1000mg dose Renal Function: SrCr 0.81 Renal Function Trend: SrCr stable Lab/Micro: Vancomycin Plan/Comments: resulted trough of 16.8 is within the ordered goal trough range of 15-20. recommend continuing current dose of 1000mg q12h and checking another trough prior to the 4th dose Pending Level: 11/17/23 at 0530 Pharmacy Service will continue to monitor and adjust dosing as required. Follow-Up Labs Follow-Up Labs: Trough: Vancomycin (11/17/23 at 0530)
--- NOTE | 2023-11-15 19:50 | NURSING ---
Report called to MS3 RN
--- NOTE | 2023-11-15 20:02 | PCM.PN.HOSP ---
Reason for Visit Reason for Visit: Diagnoses Parkinson's disease without dyskinesia, with fluctuations (11/14/23) Pneumonia, unspecified organism (11/14/23) Cellulitis of left upper limb (11/14/23) Other infective bursitis, left elbow (11/14/23) Other abnormalities of breathing (11/14/23) Difficulty in walking, not elsewhere classified (11/14/23) Weakness (11/14/23) Subjective Subjective Patient was seen and examined today, he underwent irrigation and debridement of the left olecranon bursa, cultures are pending. Objective Data Objective Data Vital Signs: Vital Signs Temp Pulse Resp BP Pulse Ox O2 Del Method O2 Flow Rate 98.0 F 92 18 123/80 H 97 Nasal Cannula 2 11/15/23 17:21 11/15/23 17:21 11/15/23 17:21 11/15/23 17:21 11/15/23 17:21 11/15/23 17:58 11/15/23 17:58 Oxygen Flow Rate (L/min) 2 Oxygen Delivery Method Nasal Cannula Weight: 90.6 kg Body Mass Index (BMI) 31.2 Intake & Output: Intake and Output for Last 24 Hours 11/13/23 11/14/23 11/15/23 23:59 23:59 23:59 Intake Total 1497.50 / 1497.50 2466.0 / 2466.0 Balance 1497.50 / 1497.50 2466.0 / 2466.0 Lab / Micro Data 11/14/23 07:52 11/14/23 07:52 Labs: Laboratory Results - last 24 hr 11/15/23 16:58: Vancomycin Trough 16.8 H Micro: Microbiology 11/13/23 23:50 Urine, Catheterized Urine Culture - Final Mixed Gram Positive Organisms 11/14/23 04:30 Urine, Clean Catch Legionella Antigen - Final 11/14/23 04:30 Urine, Clean Catch Streptococcus pneumoniae Antigen (M - Final 11/13/23 22:05 Mucosa - Nose SARS-CoV-2, Influenza & RSV (PCR) - Final Radiography Diagnostic Testing: Radiology Impression Upper Extremity MRI 11/14/23 12:01 IMPRESSION: Extensive diffuse soft tissue edema about the elbow with scattered areas of irregular disorganized fluid concerning for cellulitis. Additional concern for organized 3.8 cm abscess posterior to the olecranon within the subcutaneous fat. Nonspecific small diffuse elbow joint effusion. Cannot exclude intra-articular infection in the setting of surrounding cellulitis. No evidence of osteomyelitis or focal osseous destruction Electronically Signed: Alexander Shields MD at 19:36 EDT , ADDENDUM: 11/14/232009 IMPRESSION: undefined Physical Exam Const alert, oriented x3, no apparent distress, average body habitus and healthy appearing General Appearance: cooperative, well kempt and well developed Orientation / Consciousness: awake, oriented to person, oriented to place and oriented to time HEENT normocephalic, head/scalp atraumatic and moist oral mucous membranes Eyes PERRL, EOMs intact bilaterally and conjunctivae normal Neck supple, no JVD, thyroid normal and no carotid bruits General: trachea midline Resp normal respiratory effort, no retractions, no use of accessory muscles and clear to auscultation bilaterally Auscultation: Negative for rales, rhonchi or wheezes Cardio regular rate, regular rhythm, S1 normal heart sound, S2 normal heart sound, no murmurs, no rub and no gallops GI normal to inspection, nondistended, normoactive bowel sounds, soft to palpation, non-tender and non-distended Extremity Extremity Narrative: There is generalized redness of the patient's left elbow noted along with fluctuance Neuro oriented x3, CN's II-XII intact bilaterally, moves all extremities, no focal motor deficits and no sensory deficits noted Sensorium / Orientation: awake and alert Speech: speech normal Psych affect normal Assessment & Plan Assessment/Plan (1) Septic olecranon bursitis of left elbow: PLAN: Plan 1. Septic olecranon bursitis of the left elbow-again patient underwent irrigation and debridement of the area today, orthopedic surgery is participating in his care, antibiotic coverage will be adjusted by infectious diseases #2 essential hypertension-patient will remain on his home medications #3 Parkinson's disease-patient remains on his home medication #4 mild cognitive impairment-patient is on memantine currently, this is being prescribed by his neurologist Patient has no diagnosis of dementia Total clinical time spent by myself addressing the patient's medical issues, reviewing all of his data, and collaborating with patient's care team: 35 minutes Charges/Coding Visit Charges Inpatient E&M: 88517 Subs Hosp L2
[2023-11-15] MEDS: traMADol 50 MG Tablet PO (20:24)
[2023-11-15] MEDS: Memantine Hydrochloride 10 MG Tablet PO (22:00)
[2023-11-15] MEDS: Lactobacillis Acidophilus 2 CAP PO (22:00)
[2023-11-15] MEDS: guaiFENesin 600 MG Tablet PO (22:00)
[2023-11-15] MEDS: Latanoprost 0.005% 1 Bottle 1 DRP RIGHT EYE (22:23)
[2023-11-15] MEDS: Celecoxib 200 MG Capsule PO (22:31)
[2023-11-16 03:53] VITALS: BP 120/81; PULSE 83; RESP 16; TEMP 36.6; O2SAT 99
[2023-11-16] MEDS: Vancomycin IV 1,000 MG/200 ML BAG 200 MG IV ×2 (05:09→17:43)
[2023-11-16] MEDS: Cefazolin 2 GM in 0.9% Normal Saline (100mL Bag) 100 ML IV ×3 (06:33→22:13)
[2023-11-16 07:42] LABS: Absolute Lymphocyte Count 0.56 X10^3/uL (0.83-4.51); Absolute Neutrophil Count 8.6 X10^3/uL (2.0-7.7); Basophil# 0.03 X10^3/uL; Basophil% 0.3 % (0-1); Eosinophil# 0.18 X10^3/uL; Eosinophils% 1.7 % (0-5); Hematocrit 42.9 % (40-54); Hemoglobin 14.1 g/dL (13.0-16.5); Lymphocyte # 0.56 X10^3/ul (0.83-4.51); Lymphocyte % 5.4 % (19-41); Mean Corp Hgb Conc 32.9 g/dL (32-36); Mean Corpuscular Hgb 29.7 pg (27.0-32.0); Mean Corpuscular Volume 90.3 fL (80-94); Mean Platelet Vol. 11.9 fl (6.2-12.0); Monocyte# 0.88 X10^3/uL; Monocyte% 8.5 % (0-10); NRBC Flagged by Analyzer 0 % (0-5); Neutrophil # 8.64 X10^3/uL (2.7-7.7); Neutrophil % 82.9 % (47-70); POSITIVE DIFFERENTIAL YES; Platelet Count 161 K/mm3 (150-450); RBC Distribution Width CV 14.6 % (11.6-14.6); RBC Distribution Width SD 47.7 fl (35.1-43.9); Red Blood Count 4.75 M/mm3 (4.6-6.2); White Blood Count 10.4 K/mm3 (4.4-11.0)
[2023-11-16 08:32] LABS: Anion Gap 6 (5-15); BUN 11 mg/dL (7-18); BUN/Creat Ratio 14.7 RATIO (10-20); Calcium,Total 8.1 mg/dL (8.5-10.1); Chloride 104 mmol/L (98-107); Creatinine, Serum 0.75 mg/dL (0.70-1.30); EST Glomerular Filtration Rate 107 mL/min (>60); Est Glom Filt Rate - Afr Amer 130 mL/min (>60); Estimated Creatinine Clearance 80.38 ml/min; Glucose 111 mg/dL (74-106); Potassium 2.7 mmol/L (3.5-5.1); Sodium Level 136 mmol/L (136-145)
[2023-11-16 08:39] VITALS: BP 105/71; PULSE 84; RESP 16; TEMP 36.7; O2SAT 95
[2023-11-16] MEDS: Tamsulosin HCl 0.4 MG Capsule PO (08:49)
[2023-11-16] MEDS: Pramipexole Di-HCl 0.5 MG Tablet 1 MG PO ×4 (08:49→21:52)
[2023-11-16] MEDS: Zinc Sulfate 50 mg zinc (220 mg) ORAL capsule PO (08:50)
[2023-11-16] MEDS: Furosemide 40 MG Tablet PO (08:50)
[2023-11-16] MEDS: Acetaminophen 325 MG Tablet 650 MG PO (08:50)
[2023-11-16] MEDS: guaiFENesin 600 MG Tablet PO ×2 (08:50→21:53)
[2023-11-16] MEDS: CARBIDOPA/LEVODOPA CR 50/200 Tablet PO ×4 (08:50→21:52)
[2023-11-16] MEDS: Ascorbic Acid 500 MG Tablet 1000 MG PO ×2 (08:50→15:50)
[2023-11-16] MEDS: Aspirin E.C. 81 MG Tablet PO (08:50)
[2023-11-16] MEDS: Potassium Chloride Oral Tablet 20 MEQ 60 MEQ PO (08:51)
[2023-11-16] MEDS: dilTIAZem CD 120 MG Capsule PO (08:51)
[2023-11-16] MEDS: Memantine Hydrochloride 10 MG Tablet PO ×2 (08:51→21:52)
[2023-11-16] MEDS: prednisoLONE eye drops (5 mL) 1 DROP OPTH.BTL 1 DRP LEFT EYE ×2 (08:51→21:56)
[2023-11-16] MEDS: Enoxaparin 40 MG/0.4 ML Syringe SC (08:51)
[2023-11-16] MEDS: Lactobacillis Acidophilus 2 CAP PO ×2 (08:52→21:51)
[2023-11-16] MEDS: Carbidopa/Levodopa 25/100 Tablet PO ×2 (08:52→21:55)
[2023-11-16] MEDS: Dorzolamide HCL/Timolol 10 ml Bottle 1 DRP OPHTHALMIC ×2 (08:53→21:55)
[2023-11-16] MEDS: Cholecalciferol (Vit D3) 125 MCG CAPSULE (5,000 UNITS) PO (08:53)
--- NOTE | 2023-11-16 10:58 | CASEMGMT ---
Addendum entered by Yanna Perera 11/16/23 15:14: Informed pt [facility] accepted pt. Will notify agency when pt discharges. Addendum entered by Yanna Perera 11/16/23 15:08: [id number] Jay from [facility] called and stated they will accept pt. Original Note: LUIS ZAYAS into pt room, pt lying in bed in no distress. sitting at bedside. LUIS ZAYAS asked pt if he would like a list of [facility] agencies, stated he previously used [facility] and would like to use them again. LUIS ZAYAS called Kaitlynn at [facility], provided pt information. Kaitlynn stated she will call back to inform of acceptance.
--- NOTE | 2023-11-16 12:39 | PN.ORTHO_ITS ---
Subjective Subjective Patient sitting on the edge of the bed with in the room with him aide in the room with him as well. Patient states his elbow is feeling very well. He has little to no pain at this time. No other complaints. Denies chest pain, shortness of breath, calf pain, nausea vomiting. Objective Data Objective Data Vital Signs: Vital Signs Temp Pulse Resp BP Pulse Ox O2 Del Method O2 Flow Rate 98.1 F 84 16 105/71 95 Nasal Cannula 2 11/16/23 08:39 11/16/23 08:39 11/16/23 08:39 11/16/23 08:39 11/16/23 08:39 11/16/23 08:39 11/15/23 23:52 Oxygen Flow Rate (L/min) 2 Oxygen Delivery Method Nasal Cannula Weight: 90.6 kg Body Mass Index (BMI) 31.2 Intake & Output: Intake and Output for Last 24 Hours 11/14/23 11/15/23 11/16/23 23:59 23:59 23:59 Intake Total 1497.50 / 1497.50 3076.0 / 3076.0 310 / 310 Output Total 825 / 825 200 / 200 Balance 1497.50 / 1497.50 2251.0 / 2251.0 110 / 110 Lab / Micro Data 11/16/23 06:39 11/16/23 06:39 Labs: Laboratory Results - last 24 hr 11/15/23 16:58: Vancomycin Trough 16.8 H 11/16/23 06:39: WBC 10.4, RBC 4.75, Hgb 14.1, Hct 42.9, MCV 90.3, MCH 29.7, MCHC 32.9, RDW Std Deviation 47.7 H, RDW Coeff of Manuela 14.6, Plt Count 161, MPV 11.9, Immature Gran % (Auto) 1.200 H, Neut % (Auto) 82.9 H, Lymph % (Auto) 5.4 L, Gilchrist % (Auto) 8.5, Eos % (Auto) 1.7, Baso % (Auto) 0.3, Absolute Neuts (auto) 8.6 H, Absolute Lymphs (auto) 0.56 L, Nucleated RBC % 0, Sodium 136, Potassium 2.7 L*, Chloride 104, Carbon Dioxide 26.0, Anion Gap 6, BUN 11, Creatinine 0.75, Estim Creat Clear Calc 80.38, Est GFR (MDRD) Af Amer 130, Est GFR (MDRD) Non-Af 107, BUN/Creatinine Ratio 14.7, Glucose 111 H, Calcium 8.1 L Micro: Microbiology 11/15/23 Unknown Incision/Surgical Site Gram Stain - Final 11/15/23 Unknown Incision/Surgical Site Wound Culture - Preliminary No growth-Final to follow 11/13/23 22:54 Blood Culture (Wb) - Right Forearm Blood Culture - Preliminary No growth in 48 hours. 11/13/23 22:05 Blood Culture (Wb) - Anticubital Left Blood Culture - Preliminary No growth in 48 hours. 11/13/23 23:50 Urine, Catheterized Urine Culture - Final Mixed Gram Positive Organisms 11/14/23 04:30 Urine, Clean Catch Legionella Antigen - Final 11/14/23 04:30 Urine, Clean Catch Streptococcus pneumoniae Antigen (M - Final 11/13/23 22:05 Mucosa - Nose SARS-CoV-2, Influenza & RSV (PCR) - Final Physical Exam Narrative Upon entering the room I found patient sitting at the edge of the bed. Nurses aide working with him with his walker. Patient alert oriented. Patient left arm in a posterior long-arm splint and sling. Patient reports no pain at this time. Patient in no respiratory distress speaking in full sentences. Patient has full range of motion of right arm without limitations. Exam of the left arm the splint and Say was clean dry intact. Patient has good flexion-extension of digits of left hand. 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 Good thumbs up. Neurovascular is otherwise intact. Const alert and oriented x3 General Appearance: cooperative HEENT normocephalic Eyes PERRL Resp normal respiratory effort Effort and Inspection: able to speak in complete sentences Extremity normal capillary refill Skin no rashes or lesions noted Neuro CN's II-XII intact bilaterally Psych mental status grossly normal Assessment & Plan Assessment/Plan (1) Septic olecranon bursitis of left elbow: PLAN: 1. Continue pain medications as prescribed 2. Continue antibiotics as ordered and managed by ID/medicine 3. Medicine will continue to medically manage 4. Encourage active range of motion of the left shoulder. 5 Remove dressing in 5 to 7 days, call [facility] for appointment with Deshawn Portillo PA-C 6. Sling for comfort 7. Keep the dressing and splint dry 8. Discharge when cleared with medicine patient orthopedically stable
--- NOTE | 2023-11-16 13:52 | PCM.PN.ID ---
Physical Exam Narrative Feeling ok, no fever, no n/v/d. Arm wrapped. Const alert and no apparent distress General Appearance: cooperative Resp normal air movement and clear to auscultation bilaterally Cardio regular rate and regular rhythm GI soft to palpation, non-tender and non-distended Extremity Extremity Narrative: LUE wrapped ID ID: Route of nutrition/ use of supplements: [] Nutritional Intake: [] IV Site: [] Somers Catheter: [] Assessment & Plan Assessment/Plan (1) Cellulitis of left elbow: PLAN: Chest CT showed no consolidation. L elbow MRI showed possible abscess, ortho consulted. Taken to OR 11/15/[address] Rosa for I&D of septic bursitis. Surg cx pending. Cont vanc/cefazolin. Will follow
[2023-11-16 14:15] VITALS: BP 99/54; PULSE 89; RESP 18; TEMP 36.9; O2SAT 95
[2023-11-16] MEDS: 0.9% Normal Saline (250mL Bag) 250 ML 15 ML IV (14:18)
[2023-11-16] MEDS: 0.9% Saline Lock 10 ML Syringe IV ×2 (14:18→17:47)
[2023-11-16 15:10] VITALS: BP 95/70; PULSE 77
[2023-11-16] MEDS: Potassium Chloride Oral Tablet 20 MEQ PO (15:50)
[2023-11-16] MEDS: Bisacodyl 5 MG Tablet 10 MG PO (15:50)
[2023-11-16 15:55] VITALS: BP 112/73; PULSE 87
--- NOTE | 2023-11-16 16:44 | PCM.PN.HOSP ---
Reason for Visit Reason for Visit: Diagnoses Parkinson's disease without dyskinesia, with fluctuations (11/14/23) Pneumonia, unspecified organism (11/14/23) Cellulitis of left upper limb (11/14/23) Other infective bursitis, left elbow (11/14/23) Other abnormalities of breathing (11/14/23) Difficulty in walking, not elsewhere classified (11/14/23) Weakness (11/14/23) Subjective Subjective Patient was seen and examined today, his was in the room at the time my examination. We have not had any growth of the patient's cultures yet, his potassium was slightly low this morning and I gave him potassium supplementation. Objective Data Objective Data Vital Signs: Vital Signs Temp Pulse Resp BP Pulse Ox O2 Del Method O2 Flow Rate 98.4 F 87 18 112/73 95 Room Air 2 11/16/23 14:15 11/16/23 15:55 11/16/23 14:15 11/16/23 15:55 11/16/23 14:15 11/16/23 14:15 11/15/23 23:52 Oxygen Flow Rate (L/min) 2 Oxygen Delivery Method Room Air Weight: 90.6 kg Body Mass Index (BMI) 31.2 Intake & Output: Intake and Output for Last 24 Hours 11/14/23 11/15/23 11/16/23 23:59 23:59 23:59 Intake Total 1497.50 / 1497.50 3076.0 / 3076.0 420 / 420 Output Total 825 / 825 550 / 550 Balance 1497.50 / 1497.50 2251.0 / 2251.0 -130 / -130 Lab / Micro Data 11/16/23 06:39 11/16/23 06:39 Labs: Laboratory Results - last 24 hr 11/15/23 16:58: Vancomycin Trough 16.8 H 11/16/23 06:39: WBC 10.4, RBC 4.75, Hgb 14.1, Hct 42.9, MCV 90.3, MCH 29.7, MCHC 32.9, RDW Std Deviation 47.7 H, RDW Coeff of Manuela 14.6, Plt Count 161, MPV 11.9, Immature Gran % (Auto) 1.200 H, Neut % (Auto) 82.9 H, Lymph % (Auto) 5.4 L, Jennings % (Auto) 8.5, Eos % (Auto) 1.7, Baso % (Auto) 0.3, Absolute Neuts (auto) 8.6 H, Absolute Lymphs (auto) 0.56 L, Nucleated RBC % 0, Sodium 136, Potassium 2.7 L*, Chloride 104, Carbon Dioxide 26.0, Anion Gap 6, BUN 11, Creatinine 0.75, Estim Creat Clear Calc 80.38, Est GFR (MDRD) Af Amer 130, Est GFR (MDRD) Non-Af 107, BUN/Creatinine Ratio 14.7, Glucose 111 H, Calcium 8.1 L Micro: Microbiology 11/15/23 Unknown Incision/Surgical Site Gram Stain - Final 11/15/23 Unknown Incision/Surgical Site Wound Culture - Preliminary No growth-Final to follow 11/13/23 22:54 Blood Culture (Wb) - Right Forearm Blood Culture - Preliminary No growth in 48 hours. 11/13/23 22:05 Blood Culture (Wb) - Anticubital Left Blood Culture - Preliminary No growth in 48 hours. 11/13/23 23:50 Urine, Catheterized Urine Culture - Final Mixed Gram Positive Organisms 11/14/23 04:30 Urine, Clean Catch Legionella Antigen - Final 11/14/23 04:30 Urine, Clean Catch Streptococcus pneumoniae Antigen (M - Final 11/13/23 22:05 Mucosa - Nose SARS-CoV-2, Influenza & RSV (PCR) - Final Physical Exam Narrative alert, oriented x3, no apparent distress, average body habitus and healthy appearing General Appearance: cooperative, well kempt and well developed Orientation / Consciousness: awake, oriented to person, oriented to place and oriented to time HEENT normocephalic, head/scalp atraumatic and moist oral mucous membranes Eyes PERRL, EOMs intact bilaterally and conjunctivae normal Neck supple, no JVD, thyroid normal and no carotid bruits General: trachea midline Resp normal respiratory effort, no retractions, no use of accessory muscles and clear to auscultation bilaterally Auscultation: Negative for rales, rhonchi or wheezes Cardio regular rate, regular rhythm, S1 normal heart sound, S2 normal heart sound, no murmurs, no rub and no gallops GI normal to inspection, nondistended, normoactive bowel sounds, soft to palpation, non-tender and non-distended Extremity Extremity Narrative: There is generalized redness of the patient's left elbow noted along with fluctuance Neuro oriented x3, CN's II-XII intact bilaterally, moves all extremities, no focal motor deficits and no sensory deficits noted Sensorium / Orientation: awake and alert Speech: speech normal Psych affect normal Assessment & Plan Assessment/Plan (1) Cellulitis of left elbow: (2) Septic olecranon bursitis of left elbow: PLAN: Plan 1. Septic olecranon bursitis of the left elbow-again patient underwent irrigation and debridement of the area on 11/15/2023, orthopedic surgery is participating in his care, antibiotic coverage will be adjusted by infectious diseases as necessary #2 essential hypertension-patient will remain on his home medications #3 Parkinson's disease-patient remains on his home medication #4 mild cognitive impairment-patient is on memantine currently, this is being prescribed by his neurologist #5 hypokalemia-patient was given potassium supplementation today, BMP will be rechecked Patient has no diagnosis of dementia Total clinical time spent by myself addressing the patient's medical issues, reviewing all of his data, and collaborating with patient's care team: 35 minutes Charges/Coding Visit Charges Inpatient E&M: 68012 Subs Hosp L2
[2023-11-16] MEDS: Latanoprost 0.005% 1 Bottle 1 DRP RIGHT EYE (21:56)
[2023-11-16 22:00] VITALS: BP 109/68; PULSE 89; RESP 18; TEMP 36.6; O2SAT 94
[2023-11-16 23:48] VITALS: BMI 33.5
[2023-11-17 04:00] VITALS: BP 106/69; PULSE 96; RESP 18; TEMP 36.8; O2SAT 94
[2023-11-17] MEDS: Cefazolin 2 GM in 0.9% Normal Saline (100mL Bag) 100 ML IV (05:49)
[2023-11-17 06:20] LABS: Anion Gap 3 (5-15); BUN 16 mg/dL (7-18); BUN/Creat Ratio 17.7 RATIO (10-20); Calcium,Total 8.7 mg/dL (8.5-10.1); Chloride 109 mmol/L (98-107); EST Glomerular Filtration Rate 86 mL/min (>60); Est Glom Filt Rate - Afr Amer 104 mL/min (>60); Glucose 132 mg/dL (74-106); Potassium 3.9 mmol/L (3.5-5.1); Sodium Level 140 mmol/L (136-145)
[2023-11-17] MEDS: Vancomycin IV 1,000 MG/200 ML BAG 200 MG IV (07:01)
--- NOTE | 2023-11-17 07:10 | PHA.PHARE_ITS ---
Consult Antibiotic Management Pharmacy has been consulted to manage selected antibiotic: Vancomycin Type of Intervention Type of Consult: Follow-up Suspected Infection Suspected Infection: Skin/Soft tissue Prior Doses of Antibiotics Prior Doses of Antibiotics Received/Current Regimen: Presently on 1000mg iv q12h Labs Labs: Sodium 140 mmol/L (136-145) 11/17/23 05:45 Potassium 3.9 mmol/L (3.5-5.1) 11/17/23 05:45 Chloride 109 mmol/L (98-107) H 11/17/23 05:45 Carbon Dioxide 28.0 mmol/L (21.0-32.0) 11/17/23 05:45 Anion Gap 3 (5-15) L 11/17/23 05:45 BUN 16 mg/dL (7-18) 11/17/23 05:45 Creatinine 0.90 mg/dL (0.70-1.30) 11/17/23 05:45 Est GFR (MDRD) Af Amer 104 mL/min (>60) 11/17/23 05:45 Est GFR (MDRD) Non-Af 86 mL/min (>60) 11/17/23 05:45 BUN/Creatinine Ratio 17.7 RATIO (10-20) 11/17/23 05:45 Glucose 132 mg/dL (74-106) H 11/17/23 05:45 Vancomycin Trough 19.0 ug/mL (5.0-15.0) H 11/17/23 05:45 Microbiology Microbiology: Microbiology 11/15/23 Unknown Incision/Surgical Site Gram Stain - Final 11/15/23 Unknown Incision/Surgical Site Wound Culture - Preliminary No growth-Final to follow 11/13/23 22:54 Blood Culture (Wb) - Right Forearm Blood Culture - Preliminary No growth in 48 hours. 11/13/23 22:05 Blood Culture (Wb) - Anticubital Left Blood Culture - Preliminary No growth in 48 hours. 11/13/23 23:50 Urine, Catheterized Urine Culture - Final Mixed Gram Positive Organisms 11/14/23 04:30 Urine, Clean Catch Legionella Antigen - Final 11/14/23 04:30 Urine, Clean Catch Streptococcus pneumoniae Antigen (M - Danielle l 11/13/23 22:05 Mucosa - Nose SARS-CoV-2, Influenza & RSV (PCR) - Final Dosing Weight Weight used for dosin kg Estimated Creatinine Clearance Estimated Creatinine Clearance: 74 ml/min Goal Trough Goal Trough: 15-20 mcg/mL Pharmacy Plan for Drug Dosing Pharmacy Plan for Drug Dosing: Trough today 19.0 and in goal range of 15-20mcg/ml. Will continue same dose with repeat trough before another 4th dose per protocol. Pharmacy Service will continue to monitor and adjust dosing as required. Follow-Up Labs Follow-Up Labs: Trough: Vancomycin (11.18.23 1730)
[2023-11-17] MEDS: Vancomycin Trough/Random Due 1 LAB MC (08:00)
[2023-11-17 08:19] VITALS: O2SAT 93
[2023-11-17] MEDS: Lactobacillis Acidophilus 2 CAP PO (08:24)
[2023-11-17] MEDS: CARBIDOPA/LEVODOPA CR 50/200 Tablet PO (08:24)
[2023-11-17] MEDS: Pramipexole Di-HCl 0.5 MG Tablet 1 MG PO (08:24)
[2023-11-17] MEDS: Tamsulosin HCl 0.4 MG Capsule PO (08:25)
[2023-11-17] MEDS: Ascorbic Acid 500 MG Tablet 1000 MG PO (08:25)
[2023-11-17] MEDS: Zinc Sulfate 50 mg zinc (220 mg) ORAL capsule PO (08:25)
[2023-11-17] MEDS: guaiFENesin 600 MG Tablet PO (08:26)
[2023-11-17] MEDS: Furosemide 40 MG Tablet PO (08:26)
[2023-11-17] MEDS: Cholecalciferol (Vit D3) 125 MCG CAPSULE (5,000 UNITS) PO (08:27)
[2023-11-17] MEDS: Memantine Hydrochloride 10 MG Tablet PO (08:27)
[2023-11-17] MEDS: Aspirin E.C. 81 MG Tablet PO (08:27)
[2023-11-17] MEDS: Carbidopa/Levodopa 25/100 Tablet PO (08:27)
[2023-11-17] MEDS: Potassium Chloride Oral Tablet 20 MEQ PO (08:28)
[2023-11-17] MEDS: dilTIAZem CD 120 MG Capsule PO (08:28)
[2023-11-17] MEDS: prednisoLONE eye drops (5 mL) 1 DROP OPTH.BTL 1 DRP LEFT EYE (08:29)
[2023-11-17] MEDS: Latanoprost 0.005% 1 Bottle 1 DRP RIGHT EYE (08:29)
[2023-11-17] MEDS: Enoxaparin 40 MG/0.4 ML Syringe SC (08:30)
[2023-11-17] MEDS: Dorzolamide HCL/Timolol 10 ml Bottle 1 DRP OPHTHALMIC (08:44)
--- NOTE | 2023-11-17 10:23 | PCM.PN.ID ---
Physical Exam Narrative Feeling better, no fever, no n/v/d Const alert and no apparent distress Resp normal air movement and clear to auscultation bilaterally Cardio regular rate and regular rhythm GI soft to palpation, non-tender and non-distended Skin Skin Narrative: LARRYE wrapped ID ID: Route of nutrition/ use of supplements: [] Nutritional Intake: [] IV Site: [] Somers Catheter: [] Assessment & Plan Assessment/Plan (1) Cellulitis of left elbow: PLAN: Chest CT showed no consolidation. L elbow MRI showed possible abscess, ortho consulted. Taken to OR 11/15/[address] Rosa for I&D of septic bursitis. Surg cx ngtd. Cont vanc/cefazolin. Plan for home with omnicef 300mg bid for 7 more days. Avoiding bactrim due to risk of elevated potassium with spironolactone, avoiding linezolid due to risk of interaction with sinemet. He has listed allergy of sunburn with doxy. Would consider adding doxy 100mg bid for one week if he is able to avoid sun exposure and willing to take it. Will follow as needed, thank you
[2023-11-17 10:51] VITALS: BP 128/80; PULSE 95; RESP 18; TEMP 36.6; O2SAT 95
[2023-11-17 10:52] VITALS: BP 128/80; PULSE 95; RESP 18; TEMP 36.6; O2SAT 95
--- NOTE | 2023-11-17 11:42 | DCINST_ITS ---
Discharge Instructions Diet Discharge Diet: No restrictions Activity Discharge Activity: Return to Normal Activity Weight Bearing Status: Full weight bearing Follow Up Care Test Results: Test results from this visit will be discussed in further detail at your follow- up appointment, if applicable. Discharge Plan Admission Admit Date/Time: 11/14/23 04:04 Primary Reason for Your Visit: left septic elbow bursitis Attending Provider: Beau Linda Primary Care Provider: Masoud Rosa Consulting Providers: Raoul Major; Tom Cervantes; Kaleb Rosa Discharge Orders/Prescriptions Prescriptions: New acetaminophen 325 mg Tablet 650 mg PO Q6H PRN PRN (Reason: Pain 1-5/10 or Fever) Qty: 0 0RF potassium chloride 20 mEq Tablet,Er Particles/Crystals 20 meq PO BIDCM Qty: 60 0RF cefdinir 300 mg capsule 300 mg PO BID Qty: 15 0RF Rx Instructions: start first dose this evening doxycycline monohydrate 100 mg tablet 100 mg PO BID Qty: 15 0RF Rx Instructions: start first dose tonite Continued pramipexole 0.5 mg tablet 1 mg PO 4X/DAY Patient Comments: 0500,1000,1500,2200 carbidopa-levodopa 50-200 mg tablet extended release 1 tablet PO 4X/DAY Patient Comments: 0500,1000,1500,2200 dorzolamide-timolol 22.3-6.8 mg/mL drops 1 - 2 drp OPHTHALMIC BID tamsulosin 0.4 mg capsule 0.4 mg PO DAILY tramadol 50 mg tablet 50 mg PO TID PRN (Reason: pain) celecoxib [Celebrex] 200 mg capsule 200 mg PO DAILY PRN (Reason: pain) prednisolone acetate 1 % drops,suspension 1 drp LEFT EYE Q12H Patient Comments: instill 1 drop into left eye twice a day latanoprost 0.005 % drops 1 drp RIGHT EYE QHS memantine 10 mg tablet 10 mg PO BID carbidopa-levodopa 25-100 mg tablet 1 tab PO BID Patient Comments: with the first and last dose albuterol sulfate 90 mcg/actuation HFA aerosol inhaler 1 inh inhalation Q6H PRN (Reason: shortness of breath or wheezing) Qty: 8.5 0RF (DME) Space Chamber Spacer See Rx Instructions .Route Qty: 1 0RF Rx Instructions: As directed torsemide 20 mg tablet 20 mg PO DAILY 30 Days Qty: 30 0RF aspirin 81 mg tablet,delayed release (DR/EC) 81 mg PO DAILY Qty: 90 3RF diltiazem HCl 120 mg capsule,extended release 24 hr See Rx Instructions .ROUTE .COMPLEX Qty: 90 3RF Dose Instruction: take 1 capsule by mouth once daily Rx Instructions: take 1 capsule by mouth once daily Referrals / Follow Up: Masoud Rosa MD [Primary Care Provider] - Within 2 Weeks Kaleb Rosa MD [Med Staff - Active Staff] - See Referral Note (call for appointment for next Tuesday or Tuesday) Disposition Disposition (needs filled in before D/C Order can be placed): Home, Self Care
--- NOTE | 2023-11-17 11:51 | PCM.DC.SUM ---
Providers Date of Admission: 11/14/23 Date of Discharge: 11/17/23 Primary Care Physician: Dr. Masoud Rosa MD Consultations 11/14/23 11:18 Consult: Infectious Disease Routine Consulting Provider: Tom Cervantes Reason for Consult: left elbow cellulitis EMERGENT Consult: No Notified: Yes Date Notified: 11/14/23 Time Notified: 11:18 Method of Notification: Verbal 11/14/23 20:01 Consult: Orthopedics Routine Consulting Provider: Kaleb Rosa Reason for Consult: left elbow abcess EMERGENT Consult: No Notified: Yes Date Notified: 11/14/23 Time Notified: 20:02 Method of Notification: Verbal Reason For Visit: LEFT ELBOW CELLULITIS, LL LOBE PNEUMONIA, WEAKNESS Diagnosis Discharge Diagnosis (1) Cellulitis of left elbow: Status: Acute Code(s): L03.114 - Cellulitis of left upper limb Plan 1. Septic olecranon bursitis of the left elbow-again patient underwent irrigation and debridement of the area on 11/15/2023, orthopedic surgery is participating in his care, antibiotic coverage will be adjusted by infectious diseases as necessary #2 essential hypertension-patient will remain on his home medications #3 Parkinson's disease-patient remains on his home medication #4 mild cognitive impairment-patient is on memantine currently, this is being prescribed by his neurologist #5 hypokalemia-patient was given potassium supplementation today, BMP will be rechecked Patient has no diagnosis of dementia Total clinical time spent by myself addressing the patient's medical issues, reviewing all of his data, and collaborating with patient's care team: 35 minutes Medications at Discharge Home Medications carbidopa ER 50 mg-levodopa 200 mg tablet,extended release 1 tablet PO 4X/DAY parkinsons 09/25/20 dorzolamide 22.3 mg-timolol 6.8 mg/mL eye drops 1 - 2 drp ophthalmic (eye) BID glaucoma 09/25/20 prednisolone acetate 1 % eye drops,suspension 1 drp LEFT EYE Q12H vision 11/13/20 pramipexole 0.5 mg tablet 1 mg PO 4X/DAY . 04/28/21 latanoprost 0.005 % eye drops 1 drp RIGHT EYE QHS eye he 09/10/21 memantine 10 mg tablet 10 mg PO BID MEMORY 09/10/21 aspirin 81 mg tablet,delayed release 81 mg PO DAILY HEALTH #90 tabs 05/10/22 diltiazem HCl 120 mg capsule,24 hr,extended release See Rx Instructions .Route .COMPLEX heart #90 CAPSULES 02/03/23 tamsulosin 0.4 mg capsule 0.4 mg PO DAILY pros 03/14/23 carbidopa 25 mg-levodopa 100 mg tablet 1 tab PO BID luisa 08/05/23 albuterol sulfate 90 mcg/actuation aerosol inhaler 1 inh inhalation Q6H PRN shortness of breath or wheezing #8.5 grams 08/08/23 inhalational spacing device (Space Chamber) #1 ea 08/08/23 torsemide 20 mg tablet 20 mg PO DAILY fluid overloa 30 days #30 tabs 08/09/23 celecoxib 200 mg capsule (Celebrex) 200 mg PO DAILY PRN pain 09/28/23 tramadol 50 mg tablet 50 mg PO TID PRN pain 09/28/23 acetaminophen 325 mg tablet 650 mg (2 x 325 mg) PO Q6H PRN PRN Pain 1-5/10 or Fever #0 tabs 11/17/23 cefdinir 300 mg capsule 300 mg PO BID #15 caps 11/17/23 doxycycline monohydrate 100 mg tablet 100 mg PO BID #15 tabs 11/17/23 potassium chloride 20 mEq tablet,extended release(part/cryst) 20 meq PO BIDCM #60 tabs 11/17/23 Hospital Course Operations - (Irrigation and debridement of the left olecranon bursa) Procedures None Summary of Care Provided Minutes Spent on Discharge: 31 Hospital Course: Patient was seen in the emergency room at [facility] with complaints of swelling and redness of his left elbow area, he also complained about generalized weakness and fatigue. Patient was also reporting some chills. Workup in the emergency room revealed a normal white blood cell count of 10.6, hemoglobin was normal, bilirubin was slightly elevated at 1.4 and urinalysis was unremarkable. Patient's chest x-ray showed left basilar atelectasis or infiltrate with a small left pleural effusion, possibility of pneumonia was suggested. Patient did not have any signs or symptoms of pneumonia however, he was admitted to PCU initially as a general medical patient, he was placed on IV vancomycin for cellulitis of the left elbow, he was also given IV Zosyn for possible left basilar pneumonia. This examiner evaluated the patient the same day and did not feel that he had pneumonia, I consulted infectious diseases and did an MRI on the left elbow which showed evidence of possible abscess. Patient was seen by orthopedics and taken to surgery were his left bursa was debrided and washed out. Culture of the bursa did not grow out any organisms however. Patient was seen by PT and OT. On 11/17/2023, patient was seen and examined:alert, oriented x3, no apparent distress, average body habitus and healthy appearing General Appearance: cooperative, well kempt and well developed Orientation / Consciousness: awake, oriented to person, oriented to place and oriented to time HEENT normocephalic, head/scalp atraumatic and moist oral mucous membranes Eyes PERRL, EOMs intact bilaterally and conjunctivae normal Neck supple, no JVD, thyroid normal and no carotid bruits General: trachea midline Resp normal respiratory effort, no retractions, no use of accessory muscles and clear to auscultation bilaterally Auscultation: Negative for rales, rhonchi or wheezes Cardio regular rate, regular rhythm, S1 normal heart sound, S2 normal heart sound, no murmurs, no rub and no gallops GI normal to inspection, nondistended, normoactive bowel sounds, soft to palpation, non-tender and non-distended Extremity Extremity Narrative: There is generalized redness of the patient's left elbow noted along with fluctuance Neuro oriented x3, CN's II-XII intact bilaterally, moves all extremities, no focal motor deficits and no sensory deficits noted Sensorium / Orientation: awake and alert Speech: speech normal Psych affect normal Patient was discharged home in stable condition on 11/17/2023 Weight / BMI Weight Weight: 97.1 kg Body Mass Index (BMI) 33.5 ABG / Lab / Microbiology Data 11/16/23 06:39 11/17/23 05:45 Laboratory: Laboratory Results - last 24 hr 11/17/23 05:45: Sodium 140, Potassium 3.9, Chloride 109 H, Carbon Dioxide 28.0, Anion Gap 3 L, BUN 16, Creatinine 0.90, Estim Creat Clear Calc 73.90, Est GFR (MDRD) Af Amer 104, Est GFR (MDRD) Non-Af 86, BUN/Creatinine Ratio 17.7, Glucose 132 H, Calcium 8.7, Vancomycin Trough 19.0 H Microbiology: Microbiology 11/15/23 Unknown Incision/Surgical Site Gram Stain - Final 11/15/23 Unknown Incision/Surgical Site Wound Culture - Preliminary No growth-Final to follow 11/13/23 22:54 Blood Culture (Wb) - Right Forearm Blood Culture - Preliminary No growth in 48 hours. 11/13/23 22:05 Blood Culture (Wb) - Anticubital Left Blood Culture - Preliminary No growth in 48 hours. 11/13/23 23:50 Urine, Catheterized Urine Culture - Final Mixed Gram Positive Organisms 11/14/23 04:30 Urine, Clean Catch Legionella Antigen - Final 11/14/23 04:30 Urine, Clean Catch Streptococcus pneumoniae Antigen (M - Final 11/13/23 22:05 Mucosa - Nose SARS-CoV-2, Influenza & RSV (PCR) - Final D/C Instructions Discharge Diet: No restrictions Weight Bearing Status: Full weight bearing Meaningful Use Info Meaningful Use Meaningful Use Diagnoses (Choose all that apply): None applicable Ischemic Stroke Statin Dosing Therapy Reference: STATIN DOSE THERAPY REFERENCE: * Patients > 75 years receive moderate or high dose statin therapy. * Patients 75 years or YOUNGER should receive HIGH intensity statin dose unless contraindicated. You will be required to document reason for non-treatment if statin daily dose does not meet guidelines. HIGH DOSE STATIN THERAPY DAILY Atorvastatin > than or = to 40 mg Rosuvastatin > than or = to 20 mg Amlodipine + Atorvastatin > than or = to 2.5/40 mg Ezetimibe + Simvastatin 10/80 mg Simvastatin 80mg Discharge Plan Admission Admit Date/Time: 11/14/23 04:04 Primary Reason for Your Visit: left septic elbow bursitis Attending Provider: Beau Linda Primary Care Provider: Masoud Rosa Consulting Providers: Raoul Major; Tom Cervantes; Kaleb Rosa Discharge Orders/Prescriptions Prescriptions: New acetaminophen 325 mg Tablet 650 mg PO Q6H PRN PRN (Reason: Pain 1-5/10 or Fever) Qty: 0 0RF potassium chloride 20 mEq Tablet,Er Particles/Crystals 20 meq PO BIDCM Qty: 60 0RF cefdinir 300 mg capsule 300 mg PO BID Qty: 15 0RF Rx Instructions: start first dose this evening doxycycline monohydrate 100 mg tablet 100 mg PO BID Qty: 15 0RF Rx Instructions: start first dose tonite Continued pramipexole 0.5 mg tablet 1 mg PO 4X/DAY Patient Comments: 0500,1000,1500,2200 carbidopa-levodopa 50-200 mg tablet extended release 1 tablet PO 4X/DAY Patient Comments: 0500,1000,1500,2200 dorzolamide-timolol 22.3-6.8 mg/mL drops 1 - 2 drp OPHTHALMIC BID tamsulosin 0.4 mg capsule 0.4 mg PO DAILY tramadol 50 mg tablet 50 mg PO TID PRN (Reason: pain) celecoxib [Celebrex] 200 mg capsule 200 mg PO DAILY PRN (Reason: pain) prednisolone acetate 1 % drops,suspension 1 drp LEFT EYE Q12H Patient Comments: instill 1 drop into left eye twice a day latanoprost 0.005 % drops 1 drp RIGHT EYE QHS memantine 10 mg tablet 10 mg PO BID carbidopa-levodopa 25-100 mg tablet 1 tab PO BID Patient Comments: with the first and last dose albuterol sulfate 90 mcg/actuation HFA aerosol inhaler 1 inh inhalation Q6H PRN (Reason: shortness of breath or wheezing) Qty: 8.5 0RF (DME) Space Chamber Spacer See Rx Instructions .Route Qty: 1 0RF Rx Instructions: As directed torsemide 20 mg tablet 20 mg PO DAILY 30 Days Qty: 30 0RF aspirin 81 mg tablet,delayed release (DR/EC) 81 mg PO DAILY Qty: 90 3RF diltiazem HCl 120 mg capsule,extended release 24 hr See Rx Instructions .ROUTE .COMPLEX Qty: 90 3RF Dose Instruction: take 1 capsule by mouth once daily Rx Instructions: take 1 capsule by mouth once daily Referrals / Follow Up: Masoud Rosa MD [Primary Care Provider] - 11/24/23 10:00 am Kaleb Rosa MD [Med Staff - Active Staff] - See Referral Note (call for appointment for next Tuesday or Tuesday. The office will call the patient because the site leasing agent was having trouble working patient in.) Disposition Disposition (needs filled in before D/C Order can be placed): Home, Self Care Charges/Coding Visit Charges Inpatient E&M: 32253 Disch Hosp >30min
--- NOTE | 2023-11-17 12:15 | CASEMGMT ---
LUIS CM into pt room, pt sitting up in chair with at bedside. Informed pt [facility] will be out tomorrow, will call him tonight with a time. Pt denied any concerns with going home at this time.
== END 2023-11-17 13:15 | disposition home or self-care (01) | DRG 501 ==
LOC: ED 11-14 03:28 → PCU 11-14 04:42 → MS3 11-15 20:03
PROVIDERS: Specialist; Admitting Provider Internal Medicine; Emergency Provider Emergency Medicine; PCP Family Medicine; Visit Provider Internal Medicine
PROC: 0MB40ZZ Excision of Left Elbow Bursa and Ligament, Open Approach (ICD-10-PCS; principal; 2023-11-15 13:50)
DX: M71.122 Other infective bursitis, left elbow (principal); J90 Pleural effusion, not elsewhere classified; J98.11 Atelectasis; L03.114 Cellulitis of left upper limb; G20.A2 Parkinson's disease without dyskinesia, with fluctuations; I10 Essential (primary) hypertension; E87.6 Hypokalemia; G24.9 Dystonia, unspecified; M19.90 Unspecified osteoarthritis, unspecified site; G31.84 Mild cognitive impairment of uncertain or unknown etiology; B96.89 Other specified bacterial agents as the cause of diseases classified elsewhere; Z79.82 Long term (current) use of aspirin; R53.1 Weakness; Z79.1 Long term (current) use of non-steroidal anti-inflammatories (NSAID); H40.9 Unspecified glaucoma; Z86.14 Personal history of Methicillin resistant Staphylococcus aureus infection
CPT/HCPCS: 36415; 70030; 71045; 71250; 73223; 73700; 80048; 80053; 80202; 81001; 83605; 83735; 84100; 85025; 85610; 85730; 87040; 87070; 87075; 87086; 87088; 87205; 87449; 87631; 92610; 93005; 94668; 97162; 97166; 97535; 99285; A9575; J7030; J7040; J7050; J7120; A4216; J0696; J2405

== ENCOUNTER 2023-11-21 18:12 | Outpatient (CLI) | payer MEDICARE, SELFPAY | END 2023-11-21 23:59 | disposition home or self-care (01) | PROVIDERS: PCP Family Medicine; Referring Provider Family Medicine; Visit Provider Family Medicine | DX: N39.0 Urinary tract infection, site not specified (principal) | CPT/HCPCS: 87086; 87088 ==

== ENCOUNTER → 2024-02-06 | Outpatient (CLI) | payer MEDICARE, SELFPAY | END | disposition home or self-care (01) | PROVIDERS: PCP Family Medicine; Referring Provider Physician Assistant; Visit Provider Physician Assistant | DX: N39.0 Urinary tract infection, site not specified (principal) | CPT/HCPCS: 87077; 87086; 87088; 87186 ==

== ENCOUNTER → 2024-02-21 | Outpatient (CLI) | payer MEDICARE, SELFPAY ==
[2024-02-21 13:37] LABS: PSA,Total- Diagnostic 4.74 ng/mL (0.0-4.0)
== END | disposition home or self-care (01) ==
LOC: LAB 12:10
PROVIDERS: PCP Family Medicine; Referring Provider Nurse Practitioner; Visit Provider Nurse Practitioner
DX: C61 Malignant neoplasm of prostate (principal)
CPT/HCPCS: 36415; 84153

== ENCOUNTER 2024-02-22 08:17 | Inpatient (IN) | payer MEDICARE, SELFPAY ==
[2024-02-22] VITALS (13 sets, daily range): BP systolic 96–143; BP diastolic 67–101; PULSE 62–120; RESP 16–24; TEMP 34.4–37.1; O2SAT 95–100; BMI 30.9; BMI 29.6
--- NOTE | 2024-02-22 08:42 | EKG12_ITS ---
Test Reason : GI BLEED Blood Pressure : / mmHG Vent. Rate : 117 BPM Atrial Rate : 000 BPM P-R Int : 000 ms QRS Dur : 084 ms QT Int : 334 ms P-R-T Axes : 000 -16 059 degrees QTc Int : 465 ms Atrial fibrillation with rapid ventricular response Abnormal ECG Confirmed by KOREY HAYWARD, HERMELINDA ([id number]), videotape editor ANISA EGAN ([id number]) on 02/24/2024 6:42:40 AM Referred By: Confirmed By:ELA NAIR MD
--- NOTE | 2024-02-22 08:44 | EDS_ITS ---
HPI HPI - GI History of Present Illness Chief Complaint: GI Bleed Informant: patient, spouse/S.O. and family Narrative Narrative: Presents by EMS from home spouse and daughter present. Patient had a bowel movement this morning bloody stools with clots. Patient denies any abdominal pain. Spouse took him to the restroom on a commode and noted the blood. Patient reports 2 days ago had a bowel movement did not notice any blood. History of constipation use stool softeners. Colonoscopy x 2 years ago last time [facility]. No history of upper endoscopies. Baby aspirin no other anticoagulants. Previous history of DVT on blood thinners at that time. History of atrial fibrillation, reported due to multiple falls taken off blood thinners. Parkinson's syndrome ambulates with a walker. Intermittent lightheaded symptoms. Denies reported history of any anemia or blood transfusions. Further history discussed he was started on Celebrex 6 months ago by his pain doctor. Prior similar symptoms: No PFSH PFSH Medical History Ambulatory dysfunction Wound of left foot Mitral valve insufficiency Lower extremity edema History of blistering sunburn Non-pressure chronic ulcer of left calf with fat layer exposed Obstructive uropathy Bladder stone Urethral stricture Urinary retention Parkinsons disease Chronic radiation cystitis History of prostate cancer DVT (deep venous thrombosis) Bladder outflow obstruction Hypertension Persistent atrial fibrillation Cardiomyopathy in other diseases classified elsewhere Other secondary pulmonary hypertension Home Medications ?Medication ?Instructions ?Recorded ?Last Taken ?Type carbidopa ER 50 mg-levodopa 200 mg 1 tablet PO 4X/DAY parkinsons 09/25/20 02/22/24 History tablet,extended release dorzolamide 22.3 mg-timolol 6.8 1 - 2 drp ophthalmic (eye) BID 09/25/20 02/21/24 History mg/mL eye drops glaucoma prednisolone acetate 1 % eye 1 drp LEFT EYE Q12H vision 11/13/20 02/21/24 History drops,suspension latanoprost 0.005 % eye drops 1 drp RIGHT EYE QHS eye he 09/10/21 02/21/24 History memantine 10 mg tablet 10 mg PO BID MEMORY 09/10/21 02/21/24 History aspirin 81 mg tablet,delayed 81 mg PO DAILY HEALTH #90 tabs 05/10/22 02/21/24 Rx release tamsulosin 0.4 mg capsule 0.4 mg PO DAILY prostate 03/14/23 02/21/24 History carbidopa 25 mg-levodopa 100 mg 2 tab PO 4X/DAY parkinson 08/05/23 02/22/24 History tablet albuterol sulfate 90 mcg/actuation 1 inh inhalation Q6H PRN shortness 08/08/23 02/21/24 Rx aerosol inhaler of breath or wheezing #8.5 grams inhalational spacing device (Space #1 ea 08/08/23 Unknown Rx Chamber) torsemide 20 mg tablet 20 mg PO DAILY FLUID RETETION 30 08/09/23 02/21/24 Rx days #30 tabs celecoxib 200 mg capsule (Celebrex) 200 mg PO DAILY PRN pain 09/28/23 02/21/24 History tramadol 50 mg tablet 50 mg PO TID PRN pain 09/28/23 02/21/24 History potassium chloride 20 mEq 20 meq PO BIDCM #60 tabs 11/17/23 02/21/24 Rx tablet,extended release(part/cryst) diltiazem HCl 120 mg capsule,24 See Rx Instructions .Route 02/01/24 02/21/24 Rx hr,extended release .COMPLEX heart #90 CAPSULES ascorbic acid (vitamin C) 1,000 mg 1 g PO Q6H 02/04/24 02/21/24 History tablet darolutamide 300 mg tablet (Nubeqa) 600 mg PO DAILY 02/04/24 02/21/24 History duloxetine 60 mg capsule,delayed 60 mg PO QDAY 02/04/24 02/21/24 History release acetaminophen 500 mg capsule 1,000 mg PO Q6H PRN pain 02/22/24 02/21/24 History ciprofloxacin HCl 500 mg tablet 500 mg PO DAILY 02/22/24 02/21/24 History mupirocin 2 % topical ointment 1 applic topical BID 02/22/24 02/21/24 History pramipexole 1 mg tablet 1 mg PO 4X/DAY 02/22/24 Unknown History Allergy/AdvReac Type Severity Reaction Status Date / Time lidocaine Allergy Angioedema Verified 02/22/24 08:18 peppermint Allergy Angioedema Verified 02/22/24 08:18 phenylephrine Allergy Angioedema Verified 02/22/24 08:18 doxycycline AdvReac Intermediate SUNBURN Verified 02/22/24 08:18 Family History Brother Atrial fibrillation Hypertension Mother Heart disease CAD (coronary artery disease) Myocardial infarction Hypertension Heart failure Father Heart disease Colon cancer Ruptured aortic aneurysm Surgical History History of incision and drainage (~09/2021) History of cataract extraction History of hernia repair Social History household members: spouse Smoking Status: Never smoker alcohol intake: never substance use type: does not use caffeine: Yes Type: carbonated beverages Number of servings: 1 ROS ROS ED Constitutional Constitutional ED: Denies chills, fever(s) or sweats Eyes Eyes: Denies change in vision ENT ENT ED: Denies dysphagia or sore throat Cardiovascular Cardiovascular: Denies chest pain, leg edema, palpitations or racing heartbeat Respiratory/Chest Respiratory/Chest: Denies cough, dyspnea or dyspnea on exertion Gastrointestinal Gastrointestinal: Reports other Details: Blood in stool ; Denies abdominal pain, diarrhea, nausea or vomiting Genitourinary Genitourinary ED: Denies dysuria, hematuria or urinary frequency Musculoskeletal Musculoskeletal: Denies back pain, extremity pain or neck pain Integumentary Denies rash or wounds Neurologic Neurologic: Denies headache(s), paresthesias or weakness EXAM Physical Exam Const Vital Signs: 02/22/24 08:18 02/22/24 08:18 02/22/24 08:25 Temperature 94 F L 94 F L Temperature Source Axillary Axillary Pulse Rate 62 62 Pulse Rate [Lying] Pulse Rate [Sitting (for 1 minute prior to obtaining)] Respiratory Rate 18 18 Blood Pressure 105/67 105/67 Blood Pressure [Lying] Blood Pressure [Sitting (for 1 minute prior to obtaining)] Blood Pressure Mean 79 79 Blood Pressure Mean [Lying] Blood Pressure Mean [Sitting (for 1 minute prior to obtaining)] Pulse Ox 96 100 Oxygen Delivery Method Room Air Room Air 02/22/24 08:48 02/22/24 09:25 02/22/24 10:00 Temperature 96.8 F L 96.6 F L Temperature Source Temporal Axillary Pulse Rate 107 H 107 H Pulse Rate [Lying] 110 H Pulse Rate [Sitting (for 1 minute prior to obtaining)] 120 H Respiratory Rate 24 H 16 Blood Pressure 124/75 H 111/75 Blood Pressure [Lying] 111/68 Blood Pressure [Sitting (for 1 minute prior to obtaining)] 96/67 Blood Pressure Mean 91 87 Blood Pressure Mean [Lying] 82 Blood Pressure Mean [Sitting (for 1 minute prior to obtaining)] 76 Pulse Ox 96 98 Oxygen Delivery Method Room Air Room Air 02/22/24 10:17 Temperature Temperature Source Pulse Rate 112 H Pulse Rate [Lying] Pulse Rate [Sitting (for 1 minute prior to obtaining)] Respiratory Rate 16 Blood Pressure 118/80 Blood Pressure [Lying] Blood Pressure [Sitting (for 1 minute prior to obtaining)] Blood Pressure Mean 92 Blood Pressure Mean [Lying] Blood Pressure Mean [Sitting (for 1 minute prior to obtaining)] Pulse Ox 98 Oxygen Delivery Method Room Air Positive well nourished and well developed General Appearance ED: well developed and NAD; Negative for pallor HEENT Reports moist mucous membranes normocephalic and atraumatic Eyes EOMs intact bilaterally General Eye ED: Yes normal appearance of both eyes and pale conjunctiva Neck no lymphadenopathy and supple General: Negative for tenderness Chest Wall Chest: Negative for tenderness Resp normal respiratory effort and normal air movement Effort and Inspection: symmetric chest movement; Negative for respiratory distress Cardio no murmurs Rate: tachycardic Rhythm: abnormal rhythm Peripheral Pulses: pulses 2+ throughout GI normal to inspection, nondistended, normoactive bowel sounds and non-tender GI Narrative: Negative Tao's or McBurney's tenderness. Rectal: Nursing present. Dry melanotic blood exteriorly. No hemorrhoids. Digital rectal exam melanotic stools. Palpation: Negative for guarding or rebound tenderness present Back/Spine no CVA tenderness and no thoracic nor lumbar tenderness Extremity normal to inspection General Extremety ED: Negative for edema or tenderness General Extremity: Negative for edema Neuro oriented x3, CN's II-XII intact bilaterally and no sensory deficits noted Sensorium / Orientation: awake and alert Skin no rashes or lesions noted and no wounds General Skin Exam: Negative for pallor MDM MDM MDM Narrative Medical decision making narrative: Interventions / MDM: Differential diagnosis: GI bleed, atrial fibrillation Diagnosis considered but do not suspect: N/A My EKG interpretation: A-fib 117, no ST or T wave changes. Imaging independently reviewed and interpreted by myself: N/A External documents reviewed: N/A Test considered but not ordered:N/A ED course: Patient presented with GI bleed, daughter had picture noting dark melanotic color stools on the commode. started on Celebrex 6 months ago. Denies abdominal pain. Concerns for upper GI etiology. Labs were ordered Protonix IV. Type and screen. Orthostatics and EKG. 1010: Patient unable to stand however felt symptomatic sitting. Hemoglobin 12.3 down from 14.1 recently. Blood pressure stable. Fluids continued. Hemoccult returned positive. I discussed with Dr. Herr, continue Protonix 40 mg IV twice daily. 1 g IV Rocephin ordered for empiric treatment. Will keep him n.p.o. Plan for intervention later today. Will speak with hospitalist. 1033: I spoke with Dr. Perez for admission to medical floor on telemetry. Re-evaluation: stable Disposition discussed with patient/family/significant other: Patient and family Case discussed with consulting clinician: Gastroenterology, hospitalist This note was generated with [employer] dictation software. It may contain incorrect words, spelling, and punctuation that were not noted in checking the note before signing. Lab Data Attestation: I reviewed the patient's lab results. Labs: Laboratory Results - last 24 hr 02/22/24 08:25 WBC 6.6 RBC 4.33 L Hgb 12.3 L Hct 40.2 MCV 92.8 MCH 28.4 MCHC 30.6 L RDW Std Deviation 59.7 H RDW Coeff of Manuela 17.4 H Plt Count 217 MPV 12.5 H Immature Gran % (Auto) 2.000 H Neut % (Auto) 81.9 H Lymph % (Auto) 9.2 L [place] % (Auto) 4.4 Eos % (Auto) 1.7 Baso % (Auto) 0.8 Absolute Neuts (auto) 5.4 Absolute Lymphs (auto) 0.61 L Nucleated RBC % 0 PT 15.7 H INR 1.3 APTT 24.7 Sodium 143 Potassium 5.2 H Chloride 113 H Carbon Dioxide 24.0 Anion Gap 6 BUN 57 H Creatinine 1.21 Estim Creat Clear Calc 52.81 Est GFR (MDRD) Af Amer 74 Est GFR (MDRD) Non-Af 61 BUN/Creatinine Ratio 47.1 H Glucose 140 H Calcium 8.6 Magnesium 2.1 Total Bilirubin 1.50 H AST 6 L ALT 9 L Alkaline Phosphatase 70 Total Protein 6.4 Albumin 2.9 L Globulin 3.5 Albumin/Globulin Ratio 0.8 L Blood Type A POSITIVE Antibody Screen NEGATIVE Discharge Plan Dx/Rx/DC Orders Clinical Impression: GI bleed, Atrial fibrillation by electrocardiogram, NSAID long-term use, History of Parkinson disease Disposition Disposition: Acute Care Hospital [facility] Discharge Date/Time: 02/22/24 11:18
[2024-02-22 08:49] LABS: Absolute Lymphocyte Count 0.61 X10^3/uL (0.83-4.51); Absolute Neutrophil Count 5.4 X10^3/uL (2.0-7.7); Basophil# 0.05 X10^3/uL; Basophil% 0.8 % (0-1); Eosinophil# 0.11 X10^3/uL; Eosinophils% 1.7 % (0-5); Hematocrit 40.2 % (40-54); Hemoglobin 12.3 g/dL (13.0-16.5); Lymphocyte # 0.61 X10^3/ul (0.83-4.51); Lymphocyte % 9.2 % (19-41); Mean Corp Hgb Conc 30.6 g/dL (32-36); Mean Corpuscular Hgb 28.4 pg (27.0-32.0); Mean Corpuscular Volume 92.8 fL (80-94); Mean Platelet Vol. 12.5 fl (6.2-12.0); Monocyte# 0.29 X10^3/uL; Monocyte% 4.4 % (0-10); NRBC Flagged by Analyzer 0 % (0-5); Neutrophil # 5.41 X10^3/uL (2.7-7.7); Neutrophil % 81.9 % (47-70); Platelet Count 217 K/mm3 (150-450); RBC Distribution Width CV 17.4 % (11.6-14.6); RBC Distribution Width SD 59.7 fl (35.1-43.9); Red Blood Count 4.33 M/mm3 (4.6-6.2); White Blood Count 6.6 K/mm3 (4.4-11.0)
[2024-02-22 09:04] LABS: International Normalized Ratio 1.3; Prothrombin Time (Protime)PT. 15.7 SECONDS (11.7-14.9)
[2024-02-22 09:05] LABS: Partial Thromboplast Time 24.7 Seconds (24.1-36.2)
[2024-02-22 09:06] LABS: ALB/GLOB Ratio 0.8 RATIO (0.9-2.4); AST(SGOT) 6 U/L (15-37); Alanine Aminotransfer ALT/SGPT 9 U/L (16-61); Albumin, Serum 2.9 g/dL (3.2-5.0); Alkaline Phosphatase 70 U/L (45-117); Anion Gap 6 (5-15); BUN 57 mg/dL (7-18); BUN/Creat Ratio 47.1 RATIO (10-20); Calcium,Total 8.6 mg/dL (8.5-10.1); Chloride 113 mmol/L (98-107); Creatinine, Serum 1.21 mg/dL (0.70-1.30); EST Glomerular Filtration Rate 61 mL/min (>60); Est Glom Filt Rate - Afr Amer 74 mL/min (>60); Estimated Creatinine Clearance 52.81 ml/min; Globulin 3.5 g/dL (2.2-4.2); Glucose 140 mg/dL (74-106); Potassium 5.2 mmol/L (3.5-5.1); Protein, Total 6.4 g/dL (6.4-8.2); Sodium Level 143 mmol/L (136-145)
[2024-02-22] MEDS: 0.9% Normal Saline (1000mL) 1,000 ML 1000 ML IV (09:12)
[2024-02-22] MEDS: Pantoprazole Sodium 80 MG in 0.9% Normal Saline (50mL Bag) 15 ML 420 MG IV BOLUS (09:12)
[2024-02-22] MEDS: Ceftriaxone 1 GM/50 ML BAG IV (10:00)
--- NOTE | 2024-02-22 10:26 | PCM.HP.STD ---
HPI - General General Date of Admission: 02/22/24 Date of Service: 02/22/24 Chief Complaint: Melanontic stools, LH/dizziness. 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, Anxiety and Depression, PAF not anticoagulated secondary to Fall risk, Hx Prostate CA w/ history of radiation cystitis w/ chart reported prior urinary retention obstructive pathology, Cardiomyopathy unclear type, HTN, HLD, Parkinson's with imbalance/gait disturbance who presents to the [facility] ED on 02/22/24 with history of painless onset of bloody stools noted to be black/melanotic in appearance on day of presentation in the morning, only on a baby aspirin with last bowel movement prior to this 2 days previous with reported normal appearance at that time with intermittent lightheadedness and dizziness recently normally using a walker for ambulation but given this finding prompted ED evaluation be cautious. Patient and family report the stool recently on day of presentation as more liquid like and foul smelling. Workup in the ED included T94, axillary, heart rate 62, BP 105/67, respiratory rate 18, 96% on room air, orthostatics difficult to obtain secondary to debility and lightheadedness, CBC with WC 6.6, human 12.3, MCV 92.8, platelet 217 with increased immature granulocytes and lymphopenia, unremarkable coags aside PT 15.7, CMP with potassium 5.2, chloride 113, BUN/creatinine 57/1.21, GFR 61, glucose 140, T. bili 1.50 otherwise hepatic profile not marked appearing, guaiac positive. In the ED patient administered Protonix 80 mg IV bolus x 1 as well as Rocephin 1 g IV x 1 and 1 L normal saline bolus. ED discussed case with gastroenterology who requested Protonix bolus and continued 40 mg twice daily in addition to 1 g IV Rocephin empiric prophylactic treatment given unclear cirrhotic history with planned intervention. [facility] Medical History Ambulatory dysfunction Wound of left foot Mitral valve insufficiency Lower extremity edema History of blistering sunburn Non-pressure chronic ulcer of left calf with fat layer exposed Obstructive uropathy Bladder stone Urethral stricture Urinary retention Parkinsons disease Chronic radiation cystitis History of prostate cancer DVT (deep venous thrombosis) Bladder outflow obstruction Hypertension Persistent atrial fibrillation Cardiomyopathy in other diseases classified elsewhere Other secondary pulmonary hypertension Home Medications ?Medication ?Instructions ?Recorded ?Last Taken ?Type carbidopa ER 50 mg-levodopa 200 mg 1 tablet PO 4X/DAY parkinsons 09/25/20 02/22/24 History tablet,extended release dorzolamide 22.3 mg-timolol 6.8 1 - 2 drp ophthalmic (eye) BID 09/25/20 02/21/24 History mg/mL eye drops glaucoma prednisolone acetate 1 % eye 1 drp LEFT EYE Q12H vision 11/13/20 02/21/24 History drops,suspension latanoprost 0.005 % eye drops 1 drp RIGHT EYE QHS eye he 09/10/21 02/21/24 History memantine 10 mg tablet 10 mg PO BID MEMORY 09/10/21 02/21/24 History aspirin 81 mg tablet,delayed 81 mg PO DAILY HEALTH #90 tabs 05/10/22 02/21/24 Rx release tamsulosin 0.4 mg capsule 0.4 mg PO DAILY prostate 03/14/23 02/21/24 History carbidopa 25 mg-levodopa 100 mg 2 tab PO 4X/DAY parkinson 08/05/23 02/22/24 History tablet albuterol sulfate 90 mcg/actuation 1 inh inhalation Q6H PRN shortness 08/08/23 02/21/24 Rx aerosol inhaler of breath or wheezing #8.5 grams inhalational spacing device (Space #1 ea 08/08/23 Unknown Rx Chamber) torsemide 20 mg tablet 20 mg PO DAILY FLUID RETETION 30 08/09/23 02/21/24 Rx days #30 tabs celecoxib 200 mg capsule (Celebrex) 200 mg PO DAILY PRN pain 09/28/23 02/21/24 History tramadol 50 mg tablet 50 mg PO TID PRN pain 09/28/23 02/21/24 History potassium chloride 20 mEq 20 meq PO BIDCM #60 tabs 11/17/23 02/21/24 Rx tablet,extended release(part/cryst) diltiazem HCl 120 mg capsule,24 See Rx Instructions .Route 02/01/24 02/21/24 Rx hr,extended release .COMPLEX heart #90 CAPSULES ascorbic acid (vitamin C) 1,000 mg 1 g PO Q6H 02/04/24 02/21/24 History tablet darolutamide 300 mg tablet (Nubeqa) 600 mg PO DAILY 02/04/24 02/21/24 History duloxetine 60 mg capsule,delayed 60 mg PO QDAY 02/04/24 02/21/24 History release acetaminophen 500 mg capsule 1,000 mg PO Q6H PRN pain 02/22/24 02/21/24 History ciprofloxacin HCl 500 mg tablet 500 mg PO DAILY 02/22/24 02/21/24 History mupirocin 2 % topical ointment 1 applic topical BID 02/22/24 02/21/24 History pramipexole 1 mg tablet 1 mg PO 4X/DAY 02/22/24 Unknown History Allergy/AdvReac Type Severity Reaction Status Date / Time lidocaine Allergy Angioedema Verified 02/22/24 08:18 peppermint Allergy Angioedema Verified 02/22/24 08:18 phenylephrine Allergy Angioedema Verified 02/22/24 08:18 doxycycline AdvReac Intermediate SUNBURN Verified 02/22/24 08:18 Family History Brother Atrial fibrillation Hypertension Mother Heart disease CAD (coronary artery disease) Myocardial infarction Hypertension Heart failure Father Heart disease Colon cancer Ruptured aortic aneurysm Surgical History History of incision and drainage (~09/2021) History of cataract extraction History of hernia repair Social History household members: spouse Smoking Status: Never smoker alcohol intake: never substance use type: does not use caffeine: Yes Type: carbonated beverages Number of servings: 1 ROS ROS Narrative Admission Review of Systems: CONSTITUTIONAL: No weight loss, fever, chills, + weakness or fatigue. HEENT: + Lightheadedness, dizziness. Eyes: No visual loss, blurred vision, double vision or yellow sclerae. Ears, Nose, Throat: No hearing loss, sneezing, congestion, runny nose or sore throat. SKIN: No rash or itching, lesions, wounds. CARDIOVASCULAR: + Chronic lower extremity peripheral edema, palpitations, lightheadedness, dizziness. No chest pain, chest pressure or chest discomfort, orthopnea, syncopal events. RESPIRATORY: No shortness of breath, cough or sputum, wheezing, hemoptysis. GASTROINTESTINAL: + anorexia, melanotic appearing stools. No nausea, vomiting or diarrhea, abdominal pain, BRBPR. GENITOURINARY: + History BPH with history obstructive uropathy, urinary frequency. No dysuria, urgency or currently reported retention. NEUROLOGICAL: + Parkinson's disease with chronic underlying gait imbalance, dementia unclear extent, lightheadedness, dizziness. No headache, syncope, paralysis, ataxia, numbness or tingling in the extremities, focal weakness, change in bowel or bladder control, seizure. MUSCULOSKELETAL: + muscle, back pain, joint pain or stiffness. HEMATOLOGIC: + Anemia, easy bleeding/bruising. LYMPHATICS: No enlarged nodes. No history of splenectomy. PSYCHIATRIC: + History of anxiety and depression. ENDOCRINOLOGIC: No reports of sweating, cold or heat intolerance. No polyuria or polydipsia. ALLERGIES: + History of angioedema. Vital Signs Vital Signs Vital Signs: 02/22/24 08:18 02/22/24 08:18 02/22/24 08:25 Temperature 94 F L 94 F L Temperature Source Axillary Axillary Pulse Rate 62 62 Pulse Rate [Lying] Pulse Rate [Sitting (for 1 minute prior to obtaining)] Respiratory Rate 18 18 Blood Pressure 105/67 105/67 Blood Pressure [Lying] Blood Pressure [Sitting (for 1 minute prior to obtaining)] Blood Pressure Mean 79 79 Blood Pressure Mean [Lying] Blood Pressure Mean [Sitting (for 1 minute prior to obtaining)] Pulse Ox 96 100 Oxygen Delivery Method Room Air Room Air 02/22/24 08:48 02/22/24 09:25 02/22/24 10:00 Temperature 96.8 F L 96.6 F L Temperature Source Temporal Axillary Pulse Rate 107 H 107 H Pulse Rate [Lying] 110 H Pulse Rate [Sitting (for 1 minute prior to obtaining)] 120 H Respiratory Rate 24 H 16 Blood Pressure 124/75 H 111/75 Blood Pressure [Lying] 111/68 Blood Pressure [Sitting (for 1 minute prior to obtaining)] 96/67 Blood Pressure Mean 91 87 Blood Pressure Mean [Lying] 82 Blood Pressure Mean [Sitting (for 1 minute prior to obtaining)] 76 Pulse Ox 96 98 Oxygen Delivery Method Room Air Room Air 02/22/24 10:17 Temperature Temperature Source Pulse Rate 112 H Pulse Rate [Lying] Pulse Rate [Sitting (for 1 minute prior to obtaining)] Respiratory Rate 16 Blood Pressure 118/80 Blood Pressure [Lying] Blood Pressure [Sitting (for 1 minute prior to obtaining)] Blood Pressure Mean 92 Blood Pressure Mean [Lying] Blood Pressure Mean [Sitting (for 1 minute prior to obtaining)] Pulse Ox 98 Oxygen Delivery Method Room Air Weight Weight: 197 lb 1.492 oz Body Mass Index (BMI) 30.9 Physical Exam Narrative Physical Examination: General: Awake, alert, oriented to self, place and recent events but per description with family likely had been mildly confused previous, remains cooperative, seated upright in ED bed, fatigued, able to carry on a conversation appropriately. Skin: Normal color, normal turgor, no icterus, no cyanosis except venous stasis skin changes, very staged ecchymoses, abrasions. HEENT: AT/NC, EOMI, PERRLA, dry MM, no carotid bruits or JVD noted. Lungs: Diminished, greater bases, appropriate effort, no rales, ronchi or wheezing. Heart: Irregular irregular; no gallop, rub audible. Abdomen: Soft, obese, NTTP, ND, hyperactive BS, no appreciated HSM. Extremities: No cyanosis, no clubbing, chronic distal mid baca down to foot 1-2+ pitting edema, see skin. Neurological: Patient awake, alert, oriented as noted, cognitive function improving, nearing baseline intact as patient suspect likely had been mildly confused; pupils equally reactive to light and accommodation, cranial nerves grossly normal, moving all 4 extremities, no focal deficits, strength severely globally decreased secondary to acute presentation complicated by underlying comorbidities. Psychiatric: Affect appears flat, fatigued, no acute evidence of depressive or anxiety feelings. Results Lab / Micro Data 02/22/24 08:25 02/22/24 08:25 Labs: Laboratory Results - last 24 hr 02/22/24 08:25: WBC 6.6, RBC 4.33 L, Hgb 12.3 L, Hct 40.2, MCV 92.8, MCH 28.4, MCHC 30.6 L, RDW Std Deviation 59.7 H, RDW Coeff of Manuela 17.4 H, Plt Count 217, MPV 12.5 H, Immature Gran % (Auto) 2.000 H, Neut % (Auto) 81.9 H, Lymph % (Auto) 9.2 L, [place] % (Auto) 4.4, Eos % (Auto) 1.7, Baso % (Auto) 0.8, Absolute Neuts (auto) 5.4, Absolute Lymphs (auto) 0.61 L, Nucleated RBC % 0, PT 15.7 H, INR 1.3, APTT 24.7, Sodium 143, Potassium 5.2 H, Chloride 113 H, Carbon Dioxide 24.0, Anion Gap 6, BUN 57 H, Creatinine 1.21, Estim Creat Clear Calc 52.81, Est GFR (MDRD) Af Amer 74, Est GFR (MDRD) Non-Af 61, BUN/Creatinine Ratio 47.1 H, Glucose 140 H, Calcium 8.6, Total Bilirubin 1.50 H, AST 6 L, ALT 9 L, Alkaline Phosphatase 70, Total Protein 6.4, Albumin 2.9 L, Globulin 3.5, Albumin/Globulin Ratio 0.8 L, Blood Type A POSITIVE, Antibody Screen NEGATIVE Micro: Microbiology 02/22/24 09:09 Stool Stool Occult Blood (CHERRY) - Final Occult Blood Positive Assessment & Plan Assessment/Plan (1) GI bleed: PLAN: Plan The patient is a 78 y/o M w/ PMHx: CKD stage II based on GFR trending, Anxiety and Depression, PAF not anticoagulated secondary to Fall risk, Hx Prostate CA w/ history of radiation cystitis w/ chart reported prior urinary retention obstructive pathology, Cardiomyopathy unclear type, HTN, HLD, Parkinson's with imbalance/gait disturbance who presents to the [facility] ED on 02/22/24 with history of painless onset of bloody stools noted to be black on day of presentation in the morning, only on a baby aspirin with last bowel movement prior to this 2 days previous with no blood at that time with intermittent lightheadedness and dizziness recently normally using a walker for ambulation but given this finding prompted ED evaluation be cautious. #1. Acute Suspected Upper GI Bleed w/ resultant Acute Blood Loss Anemia: Admission hemoglobin 12.3, previous to this hemoglobin 11/16/2019 414.1 with baseline primarily 14-15, will admit to [facility] on telemetry given mild tachycardia, maintain on IVFs judiciously, will obtain serial H+H, type and screen already initiated in the ED, will maintain on IV continuous PPI, will continue prophylactic Rocephin per GI request, will maintain n.p.o. status in case of intervention evaluation today per ED report, GI consulted and evaluation pending. Holding aspirin. Given recent heavy abx therapies for UTI to be cautious will obtain cdiff PCR also. #2. Hyperkalemia, mild: Admission CMP with potassium mildly elevated 5.2, not hemolyzed, will judiciously hydrate and repeat CMP in AM. Holding K supplementation. #3. Chronic Kidney Disease Stage II per GFR trending: Admission BUN/Cr 57/1.21, 61 although baseline more in the 80 range, baseline renal function 0.7 to primarily 1.1, repeat BMP in AM. #4. PAF: We will continue home diltiazem regimen as BP allows as low normal range in the ED, not chronically anticoagulated secondary to significantly elevated fall risk with history of previous serial falls. #5. Parkinson's disease with associated dementia, unclear extent with unclear behavioral disturbance history: Will maintain on fall precautions, certainly complicates presentation, continue patient home memantine and pramipexole home regimen, PT/OT/case management consulted for discharge planning. #6. Cardiomyopathy, unclear type: Most recent noted echocardiogram 05/05/2021 with LV systolic function normal, EF 65%, mildly dilated RV, mild global RV systolic dysfunction, moderately enlarged LA, mildly enlarged RA, mild to moderate MVI, moderate TBI, trivial ARMANDO, trivial TVI, RVSP 43 mmHg. Judiciously hydrate, holding aspirin as noted, not on a beta-adan or AJYA inhibitor/ARB, holding diuretic given low BP in the ED as noted. #7. History of prostate cancer: Status post radiation with unfortunately associated radiation cystitis, monitor for any urinary retention with previous chart reported history, will maintain on patient Nubeqa regimen, encourage continued outpatient follow-up with urology as previously arranged. #8. Hypertension: Given BP in the ED will temporally hold torsemide, resume once clinically appropriate and continue diltizem given PAF as BP allows, PRN hydralazine. #9. Hyperlipidemia: Not on regimen, defer to outpatient. #10. Anxiety and depression: We will continue patient home duloxetine regimen. #11. BPH: We will continue patient home Flomax home regimen. #12. Recent Complicated Enterobacter UTI: Noted 02/06/2024 urine culture with Enterobacter greater than 100,000 with decent sensitivities placed on ciprofloxacin with patient and family reporting prolonged course with last dose 02/23/2024, will complete. #13. DVT prophylaxis: SCDs, defer any chemoprophylaxis given presentation #1. #14. CODE status: Patient HCPOA is his who is present and living will is currently in place. Discussed CODE status at length including difference between FULL code, DNR-CCA and DNR-CC status. Following discussions about the differences in these status, requested Full Code status but notes that he will continue to think about it and recommended that if he changes his mind to notify staff. Advanced Care Planning Face to Face Time: 16 minutes. Charges/Coding Visit Charges Inpatient E&M: 61860 Init Hosp L3 Procedures Hospitalists Procedures: 03498 Advncd Care Plan 30 Min
[2024-02-22 10:52] LABS: Magnesium 2.1 mg/dL (1.6-2.6)
[2024-02-22 12:22] LABS: Hematocrit 34.7 % (40-54); Hemoglobin 10.9 g/dL (13.0-16.5)
[2024-02-22] MEDS: 0.9% Normal Saline (1000mL) 1,000 ML 100 ML IV (13:32)
[2024-02-22] MEDS: 0.9% Saline Lock 10 ML Syringe IV (13:36)
[2024-02-22] MEDS: Pantoprazole Sodium 80 MG in 0.9% Normal Saline (100mL Bag) 80 ML 10 MG CONT INF (13:42)
[2024-02-22] MEDS: Mupirocin Ointment 22gm Tube 1 APPLIC TOPICAL ×2 (13:44→21:48)
[2024-02-22] MEDS: Pramipexole Di-HCl 1 MG Tablet PO ×3 (13:47→22:10)
[2024-02-22] MEDS: CARBIDOPA/LEVODOPA CR 50/200 Tablet PO ×3 (14:47→21:13)
[2024-02-22 16:58] LABS: Hemoglobin 10.3 g/dL (13.0-16.5)
--- NOTE | 2024-02-22 17:09 | EX.PCM.CON.G ---
HPI Consult Data Date of Consult: 02/22/24 HPI Narrative Reason for Consultation: GI bleed HPI Narrative: KAREN MOYA, is a 78 M who presents with multiple episodes of lower GI bleeding consisting of dark stools with fatigue and weakness. He has a past medical history of CKD, paroxysmal atrial fibrillation on aspirin, prostate cancer with history of radiation cystitis, Parkinson's disease. He also has been struggling with some burning with urination. He has been on 3 rounds of antibiotics including nitrofurantoin, Keflex and currently is on ciprofloxacin. As per nursing he has had multiple episodes of very loose stools that was sent for infection. Workup in the ED included T94, axillary, heart rate 62, BP 105/67, respiratory rate 18, 96% on room air, , CBC with WC 6.6, human 12.3, MCV 92.8, platelet 217 with increased immature granulocytes and lymphopenia, unremarkable coags aside PT 15.7, CMP with potassium 5.2, chloride 113, BUN/creatinine 57/1.21, GFR 61, glucose 140, T. bili 1.50 , guaiac positive. He received Protonix 80 mg IV bolus x 1 as well as Rocephin 1 g IV x 1 and 1 L normal saline bolus and Protonix bolus and continued 40 mg twice daily in addition to 1 g IV Rocephin [facility] Medical History Ambulatory dysfunction Wound of left foot Mitral valve insufficiency Lower extremity edema History of blistering sunburn Non-pressure chronic ulcer of left calf with fat layer exposed Obstructive uropathy Bladder stone Urethral stricture Urinary retention Parkinsons disease Chronic radiation cystitis History of prostate cancer DVT (deep venous thrombosis) Bladder outflow obstruction Hypertension Persistent atrial fibrillation Cardiomyopathy in other diseases classified elsewhere Other secondary pulmonary hypertension Home Medications ?Medication ?Instructions ?Recorded ?Last Taken ?Type carbidopa ER 50 mg-levodopa 200 mg 1 tablet PO 4X/DAY parkinsons 09/25/20 02/22/24 History tablet,extended release dorzolamide 22.3 mg-timolol 6.8 1 - 2 drp ophthalmic (eye) BID 09/25/20 02/21/24 History mg/mL eye drops glaucoma prednisolone acetate 1 % eye 1 drp LEFT EYE Q12H vision 11/13/20 02/21/24 History drops,suspension latanoprost 0.005 % eye drops 1 drp RIGHT EYE QHS eye he 09/10/21 02/21/24 History memantine 10 mg tablet 10 mg PO BID MEMORY 09/10/21 02/21/24 History aspirin 81 mg tablet,delayed 81 mg PO DAILY HEALTH #90 tabs 05/10/22 02/21/24 Rx release tamsulosin 0.4 mg capsule 0.4 mg PO DAILY prostate 03/14/23 02/21/24 History carbidopa 25 mg-levodopa 100 mg 2 tab PO 4X/DAY parkinson 08/05/23 02/22/24 History tablet albuterol sulfate 90 mcg/actuation 1 inh inhalation Q6H PRN shortness 08/08/23 02/21/24 Rx aerosol inhaler of breath or wheezing #8.5 grams inhalational spacing device (Space #1 ea 08/08/23 Unknown Rx Chamber) torsemide 20 mg tablet 20 mg PO DAILY FLUID RETETION 30 08/09/23 02/21/24 Rx days #30 tabs celecoxib 200 mg capsule (Celebrex) 200 mg PO DAILY PRN pain 09/28/23 02/21/24 History tramadol 50 mg tablet 50 mg PO TID PRN pain 09/28/23 02/21/24 History potassium chloride 20 mEq 20 meq PO BIDCM #60 tabs 11/17/23 02/21/24 Rx tablet,extended release(part/cryst) diltiazem HCl 120 mg capsule,24 See Rx Instructions .Route 02/01/24 02/21/24 Rx hr,extended release .COMPLEX heart #90 CAPSULES ascorbic acid (vitamin C) 1,000 mg 1 g PO Q6H 02/04/24 02/21/24 History tablet darolutamide 300 mg tablet (Nubeqa) 600 mg PO DAILY 02/04/24 02/21/24 History duloxetine 60 mg capsule,delayed 60 mg PO QDAY 02/04/24 02/21/24 History release acetaminophen 500 mg capsule 1,000 mg PO Q6H PRN pain 02/22/24 02/21/24 History ciprofloxacin HCl 500 mg tablet 500 mg PO DAILY 02/22/24 02/21/24 History mupirocin 2 % topical ointment 1 applic topical BID 02/22/24 02/21/24 History pramipexole 1 mg tablet 1 mg PO 4X/DAY 02/22/24 Unknown History Allergy/AdvReac Type Severity Reaction Status Date / Time lidocaine Allergy Angioedema Verified 02/22/24 08:18 peppermint Allergy Angioedema Verified 02/22/24 08:18 phenylephrine Allergy Angioedema Verified 02/22/24 08:18 doxycycline AdvReac Intermediate SUNBURN Verified 02/22/24 08:18 Family History Brother Atrial fibrillation Hypertension Mother Heart disease CAD (coronary artery disease) Myocardial infarction Hypertension Heart failure Father Heart disease Colon cancer Ruptured aortic aneurysm Surgical History History of incision and drainage (~09/2021) History of cataract extraction History of hernia repair Social History household members: spouse Smoking Status: Never smoker alcohol intake: never substance use type: does not use caffeine: Yes Type: carbonated beverages Number of servings: 1 ROS ROS Narrative Admission Review of Systems: CONSTITUTIONAL: No weight loss, fever, chills, + weakness or fatigue. HEENT: + Lightheadedness, dizziness. Eyes: No visual loss, blurred vision, double vision or yellow sclerae. Ears, Nose, Throat: No hearing loss, sneezing, congestion, runny nose or sore throat. SKIN: No rash or itching, lesions, wounds. CARDIOVASCULAR: + Chronic lower extremity peripheral edema, palpitations, lightheadedness, dizziness. No chest pain, chest pressure or chest discomfort, orthopnea, syncopal events. RESPIRATORY: No shortness of breath, cough or sputum, wheezing, hemoptysis. GASTROINTESTINAL: + anorexia, melanotic appearing stools. No nausea, vomiting or diarrhea, abdominal pain, BRBPR. GENITOURINARY: + History BPH with history obstructive uropathy, urinary frequency. No dysuria, urgency or currently reported retention. NEUROLOGICAL: + Parkinson's disease with chronic underlying gait imbalance, dementia unclear extent, lightheadedness, dizziness. No headache, syncope, paralysis, ataxia, numbness or tingling in the extremities, focal weakness, change in bowel or bladder control, seizure. MUSCULOSKELETAL: + muscle, back pain, joint pain or stiffness. HEMATOLOGIC: + Anemia, easy bleeding/bruising. LYMPHATICS: No enlarged nodes. No history of splenectomy. PSYCHIATRIC: + History of anxiety and depression. ENDOCRINOLOGIC: No reports of sweating, cold or heat intolerance. No polyuria or polydipsia. ALLERGIES: + History of angioedema. Physical Exam Narrative Physical Examination: General: Awake, alert, oriented to self, place and recent events but per description with family likely had been mildly confused previous, remains cooperative, seated upright in ED bed, fatigued, able to carry on a conversation appropriately. Skin: Normal color, normal turgor, no icterus, no cyanosis except venous stasis skin changes, very staged ecchymoses, abrasions. HEENT: AT/NC, EOMI, PERRLA, dry MM, no carotid bruits or JVD noted. Lungs: Diminished, greater bases, appropriate effort, no rales, ronchi or wheezing. Heart: Irregular irregular; no gallop, rub audible. Abdomen: Soft, obese, NTTP, ND, hyperactive BS, no appreciated HSM. Extremities: No cyanosis, no clubbing, chronic distal mid baca down to foot 1-2+ pitting edema, see skin. Neurological: Patient awake, alert, oriented as noted, cognitive function improving, nearing baseline intact as patient suspect likely had been mildly confused; pupils equally reactive to light and accommodation, cranial nerves grossly normal, moving all 4 extremities, no focal deficits, strength severely globally decreased secondary to acute presentation complicated by underlying comorbidities. Psychiatric: Affect appears flat, fatigued, no acute evidence of depressive or anxiety feelings. Lab / Micro Data 02/22/24 16:47 02/22/24 08:25 Labs: Laboratory Results - last 24 hr 02/22/24 08:25: WBC 6.6, RBC 4.33 L, Hgb 12.3 L, Hct 40.2, MCV 92.8, MCH 28.4, MCHC 30.6 L, RDW Std Deviation 59.7 H, RDW Coeff of Manuela 17.4 H, Plt Count 217, MPV 12.5 H, Immature Gran % (Auto) 2.000 H, Neut % (Auto) 81.9 H, Lymph % (Auto) 9.2 L, Mower % (Auto) 4.4, Eos % (Auto) 1.7, Baso % (Auto) 0.8, Absolute Neuts (auto) 5.4, Absolute Lymphs (auto) 0.61 L, Nucleated RBC % 0, PT 15.7 H, INR 1.3, APTT 24.7, Sodium 143, Potassium 5.2 H, Chloride 113 H, Carbon Dioxide 24.0, Anion Gap 6, BUN 57 H, Creatinine 1.21, Estim Creat Clear Calc 52.81, Est GFR (MDRD) Af Amer 74, Est GFR (MDRD) Non-Af 61, BUN/Creatinine Ratio 47.1 H, Glucose 140 H, Calcium 8.6, Magnesium 2.1, Total Bilirubin 1.50 H, AST 6 L, ALT 9 L, Alkaline Phosphatase 70, Total Protein 6.4, Albumin 2.9 L, Globulin 3.5, Albumin/Globulin Ratio 0.8 L, Blood Type A POSITIVE, Antibody Screen NEGATIVE 02/22/24 11:55: Hgb 10.9 L, Hct 34.7 L 02/22/24 16:47: Hgb 10.3 L, Hct 33.0 L Micro: Microbiology 02/22/24 09:09 Stool Stool Occult Blood (CHERRY) - Final Occult Blood Positive Assessment & Plan Assessment/Plan (1) GI bleed: PLAN: 78-year-old gentleman with atrial fibrillation on baby aspirin, DVT, prostate cancer status post radiation and history of NSAID usage presents with lower GI bleeding. Differential diagnosis includes ischemic colitis, radiation proctitis, diverticulosis, upper GI bleed with rapid transit, infectious colitis. He should undergo an EGD and colonoscopy to evaluate his upper lower GI tract. He was explained alternatives, risk, benefits including not withstanding bleeding, infection, sepsis, perforation, need for more charge and . Have an ASA of 3. Charges/Coding Visit Charges Inpatient E&M: 86308 Init Hosp L3
[2024-02-22] MEDS: dilTIAZem CD 120 MG Capsule PO (17:50)
[2024-02-22] MEDS: Carbidopa/Levodopa 25/100 Tablet PO ×2 (17:50→21:15)
[2024-02-22 20:27] LABS: Hematocrit 31.8 % (40-54); Hemoglobin 10.1 g/dL (13.0-16.5)
[2024-02-22] MEDS: prednisoLONE eye drops (5 mL) 1 DROP OPTH.BTL 1 DRP LEFT EYE (20:52)
[2024-02-22] MEDS: Memantine Hydrochloride 10 MG Tablet PO (20:53)
[2024-02-22] MEDS: Bisacodyl 5 MG Tablet 20 MG PO (21:01)
[2024-02-22] MEDS: Latanoprost 0.005% 1 Bottle 1 DRP RIGHT EYE (21:11)
[2024-02-22] MEDS: Dorzolamide HCL/Timolol 10 ml Bottle OPHTHALMIC (21:16)
[2024-02-22] MEDS: Polyethylene Glycol 3350 BOWEL PREP PO (21:49)
[2024-02-23] VITALS (15 sets, daily range): BP systolic 93–137; BP diastolic 60–82; PULSE 70–112; RESP 16–18; TEMP 36–37; O2SAT 93–100; BMI 29.7
[2024-02-23] MEDS: Pantoprazole Sodium 80 MG in 0.9% Normal Saline (100mL Bag) 80 ML 10 MG CONT INF ×2 (00:10→12:21)
[2024-02-23] MEDS: Ondansetron 4 MG/2 ML Vial IV (00:28)
--- NOTE | 2024-02-23 06:19 | PN.HOSP_ITS ---
Reason for Visit Reason for Visit: Diagnoses Gastrointestinal hemorrhage, unspecified (02/22/24) Subjective Subjective Patient with decision for EGD and c-scope prep. Notable liquid black stool output. Only able to have 1/2 oral prep. Objective Data Objective Data Vital Signs: Vital Signs Temp Pulse Resp BP Pulse Ox O2 Del Method O2 Flow Rate 98.3 F 89 16 137/73 H 97 Nasal Cannula 2 02/23/24 05:57 02/23/24 05:57 02/23/24 05:57 02/23/24 05:57 02/23/24 05:57 02/23/24 05:57 02/23/24 04:55 FiO2 95 02/22/24 23:30 Oxygen Flow Rate (L/min) 2 Oxygen Delivery Method Nasal Cannula Weight: 189 lb 2.506 oz Body Mass Index (BMI) 29.7 Intake & Output: Intake and Output for Last 24 Hours 02/21/24 02/22/24 02/23/24 23:59 23:59 23:59 Intake Total 2345 / 2345 Output Total 500 / 500 Balance 2345 / 2345 -500 / -500 Lab / Micro Data 02/22/24 20:20 02/22/24 08:25 Labs: Laboratory Results - last 24 hr 02/22/24 08:25: WBC 6.6, RBC 4.33 L, Hgb 12.3 L, Hct 40.2, MCV 92.8, MCH 28.4, M CHC 30.6 L, RDW Std Deviation 59.7 H, RDW Coeff of Manuela 17.4 H, Plt Count 217, M PV 12.5 H, Immature Gran % (Auto) 2.000 H, Neut % (Auto) 81.9 H, Lymph % (Auto) 9.2 L, [place] % (Auto) 4.4, Eos % (Auto) 1.7, Baso % (Auto) 0.8, Absolute Neuts (auto) 5.4, Absolute Lymphs (auto) 0.61 L, Nucleated RBC % 0, PT 15.7 H, INR 1.3, APTT 24.7, Sodium 143, Potassium 5.2 H, Chloride 113 H, Carbon Dioxide 24.0, Anion Gap 6, BUN 57 H, Creatinine 1.21, Estim Creat Clear Calc 52.81, Est GFR (MDRD) Af Amer 74, Est GFR (MDRD) Non-Af 61, BUN/Creatinine Ratio 47.1 H, G lucose 140 H, Calcium 8.6, Magnesium 2.1, Total Bilirubin 1.50 H, AST 6 L, ALT 9 L, Alkaline Phosphatase 70, Total Protein 6.4, Albumin 2.9 L, Globulin 3.5, A lbumin/Globulin Ratio 0.8 L, Blood Type A POSITIVE, Antibody Screen NEGATIVE 02/22/24 11:55: Hgb 10.9 L, Hct 34.7 L 02/22/24 16:47: Hgb 10.3 L, Hct 33.0 L 02/22/24 20:20: Hgb 10.1 L, Hct 31.8 L Micro: Microbiology 02/22/24 15:13 Stool Clostridioides difficile (PCR) - Final 02/22/24 09:09 Stool Stool Occult Blood (CHERRY) - Final Occult Blood Positive Physical Exam Narrative Physical Examination: General: Awake, alert, oriented to self, place and recent events but per description with family likely had been mildly confused previous, remains cooperative, seated upright in ED bed, fatigued, able to carry on a conversation appropriately. Skin: Normal color, normal turgor, no icterus, no cyanosis except venous stasis skin changes, very staged ecchymoses, abrasions. HEENT: AT/NC, EOMI, PERRLA, dry MM, no carotid bruits or JVD noted. Lungs: Diminished, greater bases, appropriate effort, no rales, ronchi or wheezing. Heart: Irregular irregular; no gallop, rub audible. Abdomen: Soft, obese, NTTP, ND, hyperactive BS, no appreciated HSM. Extremities: No cyanosis, no clubbing, chronic distal mid baca down to foot 1-2+ pitting edema, see skin. Neurological: Patient awake, alert, oriented as noted, cognitive function improving, nearing baseline intact as patient suspect likely had been mildly confused; pupils equally reactive to light and accommodation, cranial nerves grossly normal, moving all 4 extremities, no focal deficits, strength severely globally decreased secondary to acute presentation complicated by underlying comorbidities. Psychiatric: Affect appears flat, fatigued, no acute evidence of depressive or anxiety feelings. Assessment & Plan Assessment/Plan (1) GI bleed: PLAN: Plan The patient is a 78 y/o M w/ PMHx: CKD stage II based on GFR trending, Anxiety and Depression, PAF not anticoagulated secondary to Fall risk, Hx Prostate CA w/ history of radiation cystitis w/ chart reported prior urinary retention obstructive pathology, Cardiomyopathy unclear type, HTN, HLD, Parkinson's with imbalance/gait disturbance who presents to the [facility] ED on 02/22/24 with history of painless onset of bloody stools noted to be black on day of presentation in the morning, only on a baby aspirin with last bowel movement prior to this 2 days previous with no blood at that time with intermittent lightheadedness and dizziness recently normally using a walker for ambulation but given this finding prompted ED evaluation be cautious. #1. Acute Suspected Upper GI Bleed w/ resultant Acute Blood Loss Anemia: Admission hemoglobin 12.3, previous to this hemoglobin 11/16/2019 414.1 with baseline primarily 14-15, will admit to [facility] on telemetry given mild tachycardia, maintain on IVFs judiciously, will obtain serial H+H, type and screen already initiated in the ED, will maintain on IV continuous PPI, will continue prophylactic Rocephin per GI request, will maintain n.p.o. status in case of intervention evaluation today per ED report, GI consulted and evaluation pending. Holding aspirin. Given recent heavy abx therapies for UTI to be cautious will obtain cdiff PCR also. #2. Hyperkalemia, mild: Admission CMP with potassium mildly elevated 5.2, not hemolyzed, will judiciously hydrate and repeat CMP in AM. Holding K supplementation. #3. Chronic Kidney Disease Stage II per GFR trending: Admission BUN/Cr 57/1.21, 61 although baseline more in the 80 range, baseline renal function 0.7 to primarily 1.1, repeat BMP in AM. #4. PAF: We will continue home diltiazem regimen as BP allows as low normal range in the ED, not chronically anticoagulated secondary to significantly elevated fall risk with history of previous serial falls. #5. Parkinson's disease with associated dementia, unclear extent with unclear behavioral disturbance history: Will maintain on fall precautions, certainly complicates presentation, continue patient home memantine and pramipexole home regimen, PT/OT/case management consulted for discharge planning. #6. Cardiomyopathy, unclear type: Most recent noted echocardiogram 05/05/2021 with LV systolic function normal, EF 65%, mildly dilated RV, mild global RV systolic dysfunction, moderately enlarged LA, mildly enlarged RA, mild to moderate MVI, moderate TBI, trivial ARMANDO, trivial TVI, RVSP 43 mmHg. Judiciously hydrate, holding aspirin as noted, not on a beta-adan or AJAY inhibitor/ARB, holding diuretic given low BP in the ED as noted. #7. History of prostate cancer: Status post radiation with unfortunately associated radiation cystitis, monitor for any urinary retention with previous chart reported history, will maintain on patient Nubeqa regimen, encourage continued outpatient follow-up with urology as previously arranged. #8. Hypertension: Given BP in the ED will temporally hold torsemide, resume once clinically appropriate and continue diltizem given PAF as BP allows, PRN hydralazine. #9. Hyperlipidemia: Not on regimen, defer to outpatient. #10. Anxiety and depression: We will continue patient home duloxetine regimen. #11. BPH: We will continue patient home Flomax home regimen. #12. Recent Complicated Enterobacter UTI: Noted 02/06/2024 urine culture with Enterobacter greater than 100,000 with decent sensitivities placed on ciprofloxacin with patient and family reporting prolonged course with last dose 02/23/2024, will complete. #13. DVT prophylaxis: SCDs, defer any chemoprophylaxis given presentation #1. #14. CODE status: Patient MONICA is his who is present and living will is currently in place. Discussed CODE status at length including difference between FULL code, DNR-CCA and DNR-CC status. Following discussions about the differences in these status, requested Full Code status but notes that he will continue to think about it and recommended that if he changes his mind to notify staff. Advanced Care Planning Face to Face Time: 16 minutes.
--- NOTE | 2024-02-23 06:19 | PCM.PN.HOSP ---
Reason for Visit Reason for Visit: Diagnoses Gastrointestinal hemorrhage, unspecified (02/22/24) Subjective Subjective Patient overnight with continued liquid black stools with unfortunately inability to appropriately prep for potential colonoscopy as unable to tolerate all of the oral prep, limited to less than half per discussion with overnight staff. Patient fatigued, weak and unfortunately did not take his Parkinson's medications prior to his EGD leading to some tremoring although this did improve for discussion with nursing and with family as well as patient once he was dosed with his medications upon return from EGD. EGD reviewed with patient and family with noted normal esophagus, nonbleeding gastric ulcer with no stigmata of bleeding which was biopsied and noted identification of any gross lesions in the second portion of the duodenum with recommendation for initiation of diet, follow-up outpatient in the office, avoidance of any NSAIDs and repeat upper endoscopy in 3 months. Patient noted to be extremely weak per staff and therapies therefore discussion with patient and family with amenability to halfway facility placement with now precertification pending. Patient denies fevers, chills, nausea, emesis, abdominal pain, chest pain or dyspnea. Objective Data Objective Data Vital Signs: Vital Signs Temp Pulse Resp BP Pulse Ox O2 Del Method O2 Flow Rate 98.3 F 89 16 137/73 H 97 Nasal Cannula 2 02/23/24 05:57 02/23/24 05:57 02/23/24 05:57 02/23/24 05:57 02/23/24 05:57 02/23/24 05:57 02/23/24 04:55 FiO2 95 02/22/24 23:30 Oxygen Flow Rate (L/min) 2 Oxygen Delivery Method Nasal Cannula Weight: 189 lb 2.506 oz Body Mass Index (BMI) 29.7 Intake & Output: Intake and Output for Last 24 Hours 02/21/24 02/22/24 02/23/24 23:59 23:59 23:59 Intake Total 2345 / 2345 Output Total 500 / 500 Balance 2345 / 2345 -500 / -500 Lab / Micro Data 02/23/24 08:37 02/23/24 08:37 Labs: Laboratory Results - last 24 hr 02/22/24 08:25: WBC 6.6, RBC 4.33 L, Hgb 12.3 L, Hct 40.2, MCV 92.8, MCH 28.4, MCHC 30.6 L, RDW Std Deviation 59.7 H, RDW Coeff of Manuela 17.4 H, Plt Count 217, MPV 12.5 H, Immature Gran % (Auto) 2.000 H, Neut % (Auto) 81.9 H, Lymph % (Auto) 9.2 L, [place] % (Auto) 4.4, Eos % (Auto) 1.7, Baso % (Auto) 0.8, Absolute Neuts (auto) 5.4, Absolute Lymphs (auto) 0.61 L, Nucleated RBC % 0, PT 15.7 H, INR 1.3, APTT 24.7, Sodium 143, Potassium 5.2 H, Chloride 113 H, Carbon Dioxide 24.0, Anion Gap 6, BUN 57 H, Creatinine 1.21, Estim Creat Clear Calc 52.81, Est GFR (MDRD) Af Amer 74, Est GFR (MDRD) Non-Af 61, BUN/Creatinine Ratio 47.1 H, Glucose 140 H, Calcium 8.6, Magnesium 2.1, Total Bilirubin 1.50 H, AST 6 L, ALT 9 L, Alkaline Phosphatase 70, Total Protein 6.4, Albumin 2.9 L, Globulin 3.5, Albumin/Globulin Ratio 0.8 L, Blood Type A POSITIVE, Antibody Screen NEGATIVE 02/22/24 11:55: Hgb 10.9 L, Hct 34.7 L 02/22/24 16:47: Hgb 10.3 L, Hct 33.0 L 02/22/24 20:20: Hgb 10.1 L, Hct 31.8 L Micro: Microbiology 02/22/24 15:13 Stool Clostridioides difficile (PCR) - Final 02/22/24 09:09 Stool Stool Occult Blood (CHERRY) - Final Occult Blood Positive Physical Exam Narrative Physical Examination: General: Awake, alert, oriented x 3 but slower speech, fatigued, remains cooperative, seated upright in the MS bed. Skin: Normal color, normal turgor, no icterus, no cyanosis except venous stasis skin changes, stage ecchymoses/abrasions HEENT: AT/NC, EOMI, PERRLA, mildly dry MM. Lungs: Diminished, greater bases, appropriate effort, no rales, ronchi or wheezing. Heart: Irregular, currently rate controlled; no gallop, rub audible. Abdomen: Soft, obese, NTTP, ND, hyperactive BS. Extremities: No cyanosis, no clubbing, chronic distal mid baca down to foot 1-2+ pitting edema, see skin. Neurological: Patient awake, alert, oriented as noted, cognitive function improving, fatigued but mental status near baseline per discussion with family, pupils equally reactive to light and accommodation, cranial nerves grossly normal, moving all 4 extremities, no focal deficits, strength severely globally decreased. Psychiatric: Affect appears fatigued, no acute evidence of depressive or anxiety feelings. 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 #1. Acute Suspected Upper GI Bleed w/ resultant Acute Blood Loss Anemia: Admission hemoglobin 12.3, previous to this hemoglobin 11/16/23 14.1 with baseline primarily 14-15, admitted to medical surgical floor, maintain on telemetry initially secondary to tachycardia, hemoglobin trended with initial 02/22/24 Hgb 12.3->10.9->10.3->10.1->9.3, maintained on protonix drip with plan for oral transition 02/24/24. 02/23/2024 EGD with normal esophagus, nonbleeding gastric ulcer with no stigmata of bleeding which was biopsied. C-diff negative. 02/23/24 Rocephin prophylaxis d/c. Will continue to monitor hemoglobin and if appropriate level or if patient notably symptomatic low threshold to administer PRBC. PT/OT/case management consulted for discharge planning with skilled facility needs. #2. Hyperkalemia, mild: Admission CMP with potassium mildly elevated 5.2, not hemolyzed, hydrated, held potassium supplementation, 02/23/24 repeat potassium 3.5. #3. Chronic Kidney Disease Stage II per GFR trending: Admission BUN/Cr 57/1.21, 61 although baseline more in the 80 range, baseline renal function 0.7 to primarily 1.1, 02/23/24 BUN/creatinine 37/0.74, GFR 109. #4. PAF: We will continue home diltiazem as BP allows, heightened fall risk/not chronically anticoagulated. #5. Parkinson's disease with associated dementia, unclear extent with unclear behavioral disturbance history: Will maintain on fall precautions, certainly complicates presentation, continue patient home memantine and pramipexole home regimen, PT/OT/case management consulted for discharge planning. #6. Cardiomyopathy, unclear type: Most recent noted echocardiogram 05/05/2021 with LV systolic function normal, EF 65%, mildly dilated RV, mild global RV systolic dysfunction, moderately enlarged LA, mildly enlarged RA, mild to moderate MVI, moderate TBI, trivial ARMANDO, trivial TVI, RVSP 43 mmHg. Judiciously hydrated. Held aspirin given bleed presentation. Not on beta-adan as on Cardizem, not on a Cipro/RV, holding diuretic given low normal BP as noted. in the ED as noted. #7. History of prostate cancer: Status post radiation with unfortunately associated radiation cystitis, monitor for any urinary retention with previous chart reported history, will maintain on patient Nubeqa regimen, encourage continued outpatient follow-up with urology as previously arranged. #8. Hypertension: BP remains low normal range, continue to hold torsemide, continue diltiazem as able, add back regimen once appropriate and monitor for any overload/edema/weight gain given IV fluid necessities with cardiomyopathy history. PRN hydralazine. #9. Hyperlipidemia: Not on regimen, defer to outpatient. #10. Anxiety and depression: We will continue patient home duloxetine regimen. #11. BPH: We will continue patient home Flomax home regimen. #12. Recent Complicated Enterobacter UTI: Noted 02/06/2024 urine culture with Enterobacter greater than 100,000 with decent sensitivities placed on ciprofloxacin with patient and family reporting prolonged course with last dose 02/23/2024, will complete. #13. DVT prophylaxis: SCDs, defer any chemoprophylaxis given presentation #1. #14. CODE status: Patient HCPOA is his who is present and living will is currently in place. Full Code status. Charges/Coding Visit Charges Inpatient E&M: 11129 Subs Hosp L3
[2024-02-23] MEDS: 0.9% Normal Saline (1000mL) 1,000 ML 15 ML IV (06:41)
--- NOTE | 2024-02-23 07:00 | EGD_PTH ---
PATIENT: KAREN MOYA LOC: MS3 U#:[id number] AGE/SX: 78/M ROOM: DC313 RE02/22/[address]: Dr. Bettina Perez MD : 1945 BED: 1 DIS: 02/25/2024 SPEC #: [id number] RECD: 02/23/24 10:28 STATUS: CHANEL KIRK #: [id number] JOSE ALFREDO: 02/23/24 07:[address]: Joel Herr DEPT: SURGICAL PATHOLOGY RECD BY: Rashid Randall ENTERED: 02/23/24 11:21 SP TYPE: EGD [facility]: MD Dr. Masoud Ventura MD Tissues: Gastric mucous membrane Procedures: Surgery Specimen Level IV HEADER OPERATION: EGD PRE-OP DIAGNOSIS: GI bleed TISSUE SUBMITTED: Gastric ulcer biopsy MICROSCOPIC DIAGNOSIS Gastric ulcer, biopsy: Chronic gastritis with associated reactive epithelial change. See comment. AM 02/24/2024 COMMENT Immunohistochemistry ([id number]) supports the above diagnosis. MICROSCOPIC DESCRIPTION Slides are reviewed. GROSS DESCRIPTION Received in fixative is one container labeled with the patient's name and designated Gastric ulcer biopsy. The specimen consists of multiple irregular fragments of light alvarado soft tissue that in aggregate measure 1.0 x 0.3 x 0.1 cm. The specimen is totally submitted in one cassette. 02/23/2024 TC:3 CPT:62022
--- NOTE | 2024-02-23 07:00 | IMM_PTH ---
PATIENT: KAREN MOYA LOC: MS3 U#:[id number] AGE/SX: 78/M [place] [facility] [place]: Dr. Bettina Perez MD : 1945 BED: 1 DIS: 02/25/2024 SPEC #: [id number] RECD: 02/23/24 11:30 STATUS: CHANEL REQ #: [id number] JOSE ALFREDO: 02/23/24 07:[address]: Joel Herr DEPT: IMMUNOHISTOCHEMISTRY RECD BY: Jorden Yusuf ENTERED: 02/23/24 11:31 SP TYPE: IMMUNO OTHR DR: MD Dr. Masoud Ventura MD Tissues: Gastric mucous membrane Procedures: H Pylori (initial) PHYSICIAN & INSTITUTION [place] [address] SPECIMEN INFORMATION: Tissue Source: Gastric ulcer biopsy Clinical Info: GI bleed Specimen Number: [id number] CPT code: 69897 METHODOLOGY: Deparaffinized sections of prefer/formalin-fixed tissue or PAP/DQ stained slides are incubated with monoclonal/polyclonal antibodies/oligonucleotide probes. Localization is made via biotin free immunoperoxidase method. Appropriate controls are performed and reacted as expected. Results on target cell population are indicated in the following table: RESULTS: ANTIBODY / CLONE RESULT H Pylori (polyclonal) negative These tests were developed and their performance characteristics determined by [facility]. They may not have been cleared or approved by the U.S. Food and Drug Administration. The FDA has determined that such clearance or approval is not necessary. The above immunohistochemical/dualISH markers are ordered and reviewed by the Pathologist. INTERPRETATION: Gastric ulcer, biopsy: Negative for Helicobacter pylori organisms. JUDE/ 02/24/2024
--- NOTE | 2024-02-23 07:03 | PRE.ANES_ITS ---
ASA Classification* ASA Classification ASA Classification: 3 Assessment & Plan Anesthesia* Anesthesia Assessment Anesthesia Assessment: Discussed sedation and/or anesthesia options, risks, benefits, and alternatives with patient/parents/legal guardian/POA. Questions invited. The patient/parents/legal guardian/POA seems to understand and agrees to proceed with anesthesia plan. Reviewed the physical assessment, medical history, allergy history and patient home medications list prior to surgery/procedure/anesthetic and documented any changes. Performed airway and anesthesia risk assessments. Anesthesia Type Anesthesia Type: MAC (see written pre anesthesia record for full assessment) Anesthesia Focused Assessment* Temperature: 98.3 F Pulse Rate: 89 Blood Pressure: 137/73 Respiratory Rate: 16 Pulse Ox: 97 Fraction of Inspired Oxygen (FIO2): 95 Airway Assessment Mouth opens: >3 cm Mallampati Score: II Focused Labs Anesthesia Preop lab: CBC WBC 6.6 K/mm3 (4.4-11.0) 02/22/24 08:25 RBC 4.33 M/mm3 (4.6-6.2) L 02/22/24 08:25 Hgb 10.1 g/dL (13.0-16.5) L 02/22/24 20:20 Hct 31.8 % (40-54) L 02/22/24 20:20 Plt Count 217 K/mm3 (150-450) 02/22/24 08:25 CHEMISTRY Potassium 5.2 mmol/L (3.5-5.1) H 02/22/24 08:25 Sodium 143 mmol/L (136-145) 02/22/24 08:25 Magnesium 2.1 mg/dL (1.6-2.6) 02/22/24 08:25 Phosphorus 2.4 mg/dL (2.5-4.9) L 11/14/23 07:52 BUN 57 mg/dL (7-18) H 02/22/24 08:25 Creatinine 1.21 mg/dL (0.70-1.30) 02/22/24 08:25 Glucose 140 mg/dL (74-106) H 02/22/24 08:25 POC Glucose 105 mg/dL (70-110) 01/22/19 07:48 TSH 0.37 uIU/mL (0.358-3.74) 08/06/23 05:35 COAG PT 15.7 SECONDS (11.7-14.9) H 02/22/24 08:25 Pre-Assessment Diagnosis/Proposed Procedure Planned Operative Procedure(s): egd/ colon Anesthesia History 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 When Was Last Pacemaker Check QUESTION #4 FULL TEXT: You/Your Family Experience fever (hyperthermia) with Anesthesia Last Oral Intake Last Oral intake: Last Oral Intake NPO since 00:00 02/23/24 05:57 Meds taken in AM with sips of water? Meds patient instructed to take am of surgery PONV PONV - piano mechanic apprentice: PONV - piano mechanic apprentice Female HX of Motion Sickness HX of N/V After Surgery Non-Smoker Duration of Surgery greater than 60 minutes Number of Risk Factors PONV Score Height & Weight Height & Weight: Anesthesia: Height & Weight Height 5 ft 7 in 02/22/24 13:42 Weight: 85.8 kg 02/23/24 05:57 Body Mass Index (BMI) 29.7 02/23/24 04:19 Respiratory Assessment Respiratory Assessment - piano mechanic apprentice: Respiratory Tract Infection Hx - piano mechanic apprentice Hx Respiratory Tract Infection No 09/10/21 16:37 STOP Sleep Apnea STOP Sleep Apnea - piano mechanic apprentice: STOP Sleep Apnea - piano mechanic apprentice Hx Hypertension Yes 02/22/24 11:30 Hx Sleep Apnea No 02/22/24 11:30 CPAP No 11/15/23 15:30 BIPAP No 11/14/23 04:16 Do you snore loudly (louder No 02/22/24 11:30 than talking or can be heard Do you often feel tired/ Yes 02/22/24 11:30 fatigued/ sleepy during daytime? Has anyone observed you stop No 02/22/24 11:30 breathing during sleep? STOP Results Positive 02/22/24 11:30 QUESTION #5 FULL TEXT : Do you snore loudly (louder than talking or can be heard through closed doors)? 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 Specify any problems Hx of Preganancy in last 3 N/A 02/22/24 11:30 Months Nurse Filling Out Transfusion BSTEELE 02/22/24 11:30 & Questions: Date: 02/22/24 02/22/24 11:30 Time: 12:10 02/22/24 11:30 Patient unable to answer at this time (ie. confused, unrespo /Reproduction History /Reproductive History - piano mechanic apprentice: /Reproductive Hx- piano mechanic apprentice Hx Now Gestational Age (in weeks): EDC: Hx Hx Para Hx Section SAB No 09/10/21 16:37 Active Medications Active Medications: Current Medications Generic Name Dose Route Start Last Admin Trade Name Freq PRN Reason Stop Dose Admin Acetaminophen 650 mg 02/22/24 11:32 Acetaminophen 325 Mg Tablet PO Q4H PRN PRN Fever, pain 1-10/10 Carbidopa/Levodopa 1 tablet 02/22/24 14:00 02/22/24 21:13 Carbidopa/Levodopa Cr 50/200 Tablet PO 1 tablet 4X/DAY FIDE Administration Carbidopa/Levodopa 2 tablet 02/22/24 16:00 02/23/24 05:50 Carbidopa/Levodopa 25/100 Tablet PO Not Given 1HR_ACHS FIDE Ciprofloxacin HCl 500 mg 02/23/24 10:00 Ciprofloxacin 500 Mg Tablet PO 02/23/24 10:01 DAILY FIDE Diltiazem HCl 120 mg 02/22/24 15:55 02/22/24 17:50 Diltiazem Cd 120 Mg Capsule PO 120 mg DAILY FIDE Administration Dorzolamide/Timolol 1 - 2 drp 02/22/24 22:00 02/22/24 21:16 Dorzolamide Hcl/Timolol 10 Ml Bottle OPHTHALMIC 2 drp BID FIDE Administration Duloxetine HCl 60 mg 02/23/24 10:00 Duloxetine Hcl 60 Mg Capsule PO DAILY FIDE Hydralazine HCl 10 mg 02/22/24 11:32 Hydralazine 20 Mg/Ml Vial IV Q4H PRN PRN SBP > 160 Protocol Pantoprazole Sodium 80 mg/ 100 mls @ 10 mls/hr 02/22/24 11:32 02/23/24 00:10 Sodium Chloride CONT INF 10 mls/hr Q10H FIDE Administration Ceftriaxone Sodium 1 gm in 50 mls @ 100 mls/hr 02/23/24 10:00 Rocephin IV Q24 FIDE Sodium Chloride 250 mls @ 15 mls/hr 02/22/24 11:35 IV .[id number] PRN Additional IVPB Infusion Sodium Chloride 250 mls @ 15 mls/hr 02/22/24 11:35 IV .[id number] PRN Saline Flush Sodium Chloride 1,000 mls @ 15 mls/hr 02/23/24 06:25 02/23/24 06:41 IV 15 mls/hr .Q48H FIDE Administration Latanoprost 1 drp 02/22/24 22:00 02/22/24 21:11 Latanoprost 0.005% 1 Bottle RIGHT EYE 1 drp QHS FIDE Administration Melatonin 3 mg 02/22/24 11:32 Melatonin 3 Mg Tablet PO QHS PRN PRN INSOMNIA Memantine 10 mg 02/22/24 22:00 02/22/24 20:53 Memantine Hydrochloride 10 Mg Tablet PO 10 mg BID FIDE Administration Mupirocin 1 applic 02/22/24 22:00 02/23/24 07:00 Mupirocin Ointment 22gm Tube TOPICAL Not Given BID [facility] Protocol Ondansetron HCl 4 mg 02/22/24 11:32 02/23/24 00:28 Ondansetron 4 Mg/2 Ml Vial IV 4 mg Q8H PRN PRN Administration NAUSEA/VOMITING Oxycodone HCl 5 mg 02/22/24 11:32 Oxycodone 5 Mg Tablet PO Q4H PRN PRN Pain Score 4-10 Pramipexole Dihydrochloride 1 mg 02/22/24 14:00 02/22/24 22:10 Pramipexole Di-Hcl 1 Mg Tablet PO 1 mg 4X/DAY FIDE Administration Prednisolone Acetate 1 drp 02/22/24 12:45 02/22/24 20:52 Prednisolone Eye Drops (5 Ml) 1 Drop Opth.Btl LEFT EYE 1 drp Q12H FIDE Administration Sodium Chloride 10 - 40 ml 02/22/24 11:35 02/22/24 13:36 0.9% Saline Lock 10 Ml Syringe IV 10 ml UD PRN Administration SALINE FLUSH Tamsulosin HCl 0.4 mg 02/23/24 10:00 Tamsulosin Hcl 0.4 Mg Capsule PO DAILY FIDE PFSH Medical History Ambulatory dysfunction Wound of left foot Mitral valve insufficiency Lower extremity edema History of blistering sunburn Non-pressure chronic ulcer of left calf with fat layer exposed Obstructive uropathy Bladder stone Urethral stricture Urinary retention Parkinsons disease Chronic radiation cystitis History of prostate cancer DVT (deep venous thrombosis) Bladder outflow obstruction Hypertension Persistent atrial fibrillation Cardiomyopathy in other diseases classified elsewhere Other secondary pulmonary hypertension Home Medications ?Medication ?Instructions ?Recorded ?Last Taken ?Type carbidopa ER 50 mg-levodopa 200 mg 1 tablet PO 4X/DAY parkinsons 09/25/20 02/22/24 History tablet,extended release dorzolamide 22.3 mg-timolol 6.8 1 - 2 drp ophthalmic (eye) BID 09/25/20 02/21/24 History mg/mL eye drops glaucoma prednisolone acetate 1 % eye 1 drp LEFT EYE Q12H vision 11/13/20 02/21/24 History drops,suspension latanoprost 0.005 % eye drops 1 drp RIGHT EYE QHS eye he 09/10/21 02/21/24 History memantine 10 mg tablet 10 mg PO BID MEMORY 09/10/21 02/21/24 History aspirin 81 mg tablet,delayed 81 mg PO DAILY HEALTH #90 tabs 05/10/22 02/21/24 Rx release tamsulosin 0.4 mg capsule 0.4 mg PO DAILY prostate 03/14/23 02/21/24 History carbidopa 25 mg-levodopa 100 mg 2 tab PO 4X/DAY parkinson 08/05/23 02/22/24 History tablet albuterol sulfate 90 mcg/actuation 1 inh inhalation Q6H PRN shortness 08/08/23 02/21/24 Rx aerosol inhaler of breath or wheezing #8.5 grams inhalational spacing device (Space #1 ea 08/08/23 Unknown Rx Chamber) torsemide 20 mg tablet 20 mg PO DAILY FLUID RETETION 30 08/09/23 02/21/24 Rx days #30 tabs celecoxib 200 mg capsule (Celebrex) 200 mg PO DAILY PRN pain 09/28/23 02/21/24 History tramadol 50 mg tablet 50 mg PO TID PRN pain 09/28/23 02/21/24 History potassium chloride 20 mEq 20 meq PO BIDCM #60 tabs 11/17/23 02/21/24 Rx tablet,extended release(part/cryst) diltiazem HCl 120 mg capsule,24 See Rx Instructions .Route 02/01/24 02/21/24 Rx hr,extended release .COMPLEX heart #90 CAPSULES ascorbic acid (vitamin C) 1,000 mg 1 g PO Q6H 02/04/24 02/21/24 History tablet darolutamide 300 mg tablet (Nubeqa) 600 mg PO DAILY 02/04/24 02/21/24 History duloxetine 60 mg capsule,delayed 60 mg PO QDAY 02/04/24 02/21/24 History release acetaminophen 500 mg capsule 1,000 mg PO Q6H PRN pain 02/22/24 02/21/24 History ciprofloxacin HCl 500 mg tablet 500 mg PO DAILY 02/22/24 02/21/24 History mupirocin 2 % topical ointment 1 applic topical BID 02/22/24 02/21/24 History pramipexole 1 mg tablet 1 mg PO 4X/DAY 02/22/24 Unknown History Allergy/AdvReac Type Severity Reaction Status Date / Time lidocaine Allergy Angioedema Verified 02/22/24 08:18 peppermint Allergy Angioedema Verified 02/22/24 08:18 phenylephrine Allergy Angioedema Verified 02/22/24 08:18 doxycycline AdvReac Intermediate SUNBURN Verified 02/22/24 08:18 Family History Brother Atrial fibrillation Hypertension Mother Heart disease CAD (coronary artery disease) Myocardial infarction Hypertension Heart failure Father Heart disease Colon cancer Ruptured aortic aneurysm Surgical History History of incision and drainage (~09/2021) History of cataract extraction History of hernia repair Social History household members: spouse Smoking Status: Never smoker alcohol intake: never substance use type: does not use caffeine: Yes Type: carbonated beverages Number of servings: 1 Review of Systems (Anesthesia) ROS Narrative System reviewed and no additional complaints, except as documented.
--- NOTE | 2024-02-23 07:27 | OP.CCLET_ITS ---
02/23/2024 Masoud Rosa Re : Upper GI endoscopy procedure for Mendoza Carlson Dear Shelley This procedure was performed on February. My impressions and recommendations are as follows: Impressions : - Normal esophagus. - Non-bleeding gastric ulcer with no stigmata of bleeding. Biopsied. - No gross lesions in the second portion of the duodenum. Recommendations : - Discharge patient to home. - Resume previous diet. - Continue present medications. - Await pathology results. - Repeat upper endoscopy in 3 months for surveillance based on pathology results. My findings are described in the full procedure note, which is enclosed. If I can be of further assistance, please feel free to contact me at . Sincerely, Joel Herr, 02/23/2024 7:26:41 AM This report has been signed electronically.
--- NOTE | 2024-02-23 07:27 | OP.EGD_ITS ---
Patient Name: Mendoza Carlson Procedure Date: 02/23/2024 7:03 AM Date of : 1945 Age: 78 Procedure: Upper GI endoscopy Indications: Melena Providers: Joel Herr DO Medicines: Monitored Anesthesia Care Patient Profile: This is a 78 year old male. Refer to note in patient chart for documentation of history and physical. Patient has symptoms. Complications: No immediate complications. Procedure: Pre-Anesthesia Assessment: - Prior to the procedure, a History and Physical was performed, and patient medications and allergies were reviewed. The patient is competent. The risks and benefits of the procedure and the sedation options and risks were discussed with the patient. All questions were answered and informed consent was obtained. Patient identification and proposed procedure were verified by the physician in the pre-procedure area. Mental Status Examination: alert and oriented. Airway Examination: normal oropharyngeal airway and neck mobility. Respiratory Examination: clear to auscultation. CV Examination: normal. Prophylactic Antibiotics: The patient does not require prophylactic antibiotics. Prior Anticoagulants: The patient has taken no anticoagulant or antiplatelet agents. ASA Grade Assessment: IV - A patient with severe systemic disease that is a constant threat to life. After reviewing the risks and benefits, the patient was deemed in satisfactory condition to undergo the procedure. The anesthesia plan was to use monitored anesthesia care (MAC). Immediately prior to administration of medications, the patient was re-assessed for adequacy to receive sedatives. The heart rate, respiratory rate, oxygen saturations, blood pressure, adequacy of pulmonary ventilation, and response to care were monitored throughout the procedure. The physical status of the patient was re-assessed after the procedure. After obtaining informed consent, the endoscope was passed under direct vision. Throughout the procedure, the patient's blood pressure, pulse, and oxygen saturations were monitored continuously. The gastroscope was introduced through the mouth, and advanced to the second part of duodenum. The upper GI endoscopy was accomplished without difficulty. The patient tolerated the procedure well. Scope In: 7:16:40 AM Scope Out: 7:21:14 AM Total Procedure Duration Time 0 hours 4 minutes 34 seconds Findings: The examined esophagus was normal. One non-bleeding cratered gastric ulcer with no stigmata of bleeding was found in the gastric antrum. The lesion was 10 mm in largest dimension. Biopsies were taken with a cold forceps for histology. Verification of patient identification for the specimen was done. Estimated blood loss was minimal. No gross lesions were noted in the second portion of the duodenum. Impression: - Normal esophagus. - Non-bleeding gastric ulcer with no stigmata of bleeding. Biopsied. - No gross lesions in the second portion of the duodenum. Recommendation: - Discharge patient to home. - Resume previous diet. - Continue present medications. - Await pathology results. - Repeat upper endoscopy in 3 months for surveillance based on pathology results. Procedure Code(s): --- Professional --- 62715, Esophagogastroduodenoscopy, flexible, transoral; with biopsy, single or multiple CPT copyright 2021 [employer]. All rights reserved. The codes documented in this report are preliminary and upon consumer affairs specialist review may be revised to meet current compliance requirements. Joel Herr DO 02/23/2024 7:26:41 AM This report has been signed electronically. Number of Addenda: 0 Note Initiated On: 02/23/2024 7:03 AM
--- NOTE | 2024-02-23 07:33 | PCM.POST.ANE ---
Anesthesia: Postop Eval I Current Vital Signs Temperature: 97 F Pulse Rate: 112 Blood Pressure: 95/60 Respiratory Rate: 18 Pulse Ox: 100 Oxygen Delivery Method: Nasal Cannula Oxygen Flow Rate (L/min): 2 Assessment Airway patent: Yes Spontaneous unlabored respirations: Yes Mental status: Awake and Calm nausea: No Vomiting: No Anesthesia Complication: No Fluid Hydration Crystalloid volume administer (ml): 200 Total IV fluid infused: 200 Progress Note Anesthesia document: Postop Eval 1 completed: Yes
--- NOTE | 2024-02-23 07:39 | PCM.POSTANE2 ---
Anesthesia Postop Eval I Sum Postop Eval Completion status Anesthesia document: Postop Eval 1 completed: Yes Anesthesia Postop Eval I Summary Anesthesia Postop Eval I Summary: Anesthesia Postop Eval I: Assessment Summary Airway patent Yes 02/23/24 07:34 [email or web address] Spontaneous unlabored Yes 02/23/24 07:34 [email or web address] respirations Mental status Awake,Calm 02/23/24 07:34 [email or web address] nausea No 02/23/24 07:34 [email or web address] Vomiting No 02/23/24 07:34 [email or web address] Anesthesia Postop Eval I: Fluid Summary Crystalloid volume administer 200 02/23/24 07:34 [email or web address] (ml) Colloids volume administered ( ml) Blood Product volume administered (ml) Total IV fluid infused 200 02/23/24 07:34 [email or web address] Anesthesia Postop Eval I: Summary Notes Anesthesia Complication No 02/23/24 07:34 [email or web address] Anesthesia Complication Comment: Post-operative progress note Anesthesia: Postop Eval II Evaluation Mental status: Awake Pain Level: 0 nausea: No Vomiting: No
[2024-02-23 08:49] LABS: Absolute Lymphocyte Count 0.56 X10^3/uL (0.83-4.51); Absolute Neutrophil Count 5.1 X10^3/uL (2.0-7.7); Basophil# 0.03 X10^3/uL; Basophil% 0.5 % (0-1); Eosinophil# 0.14 X10^3/uL; Eosinophils% 2.2 % (0-5); Hematocrit 30.2 % (40-54); Hemoglobin 9.3 g/dL (13.0-16.5); Lymphocyte # 0.56 X10^3/ul (0.83-4.51); Lymphocyte % 8.8 % (19-41); Mean Corp Hgb Conc 30.8 g/dL (32-36); Mean Corpuscular Hgb 28.7 pg (27.0-32.0); Mean Corpuscular Volume 93.2 fL (80-94); Mean Platelet Vol. 11.5 fl (6.2-12.0); Monocyte# 0.41 X10^3/uL; Monocyte% 6.5 % (0-10); NRBC Flagged by Analyzer 0 % (0-5); Neutrophil # 5.12 X10^3/uL (2.7-7.7); Neutrophil % 80.6 % (47-70); POSITIVE DIFFERENTIAL YES; Platelet Count 172 K/mm3 (150-450); RBC Distribution Width CV 17.2 % (11.6-14.6); RBC Distribution Width SD 59.2 fl (35.1-43.9); Red Blood Count 3.24 M/mm3 (4.6-6.2); White Blood Count 6.4 K/mm3 (4.4-11.0)
[2024-02-23 08:58] LABS: International Normalized Ratio 1.3; Prothrombin Time (Protime)PT. 15.8 SECONDS (11.7-14.9)
[2024-02-23 08:59] LABS: Partial Thromboplast Time 27.7 Seconds (24.1-36.2)
[2024-02-23 09:29] LABS: AST(SGOT) 6 U/L (15-37); Alanine Aminotransfer ALT/SGPT < 6 U/L (16-61); Albumin, Serum 2.6 g/dL (3.2-5.0); Alkaline Phosphatase 57 U/L (45-117); Anion Gap 5 (5-15); BUN 37 mg/dL (7-18); BUN/Creat Ratio 50.3 RATIO (10-20); Calcium,Total 7.8 mg/dL (8.5-10.1); Chloride 121 mmol/L (98-107); Creatinine, Serum 0.74 mg/dL (0.70-1.30); EST Glomerular Filtration Rate 109 mL/min (>60); Est Glom Filt Rate - Afr Amer 132 mL/min (>60); Estimated Creatinine Clearance 78.35 ml/min; Globulin 2.7 g/dL (2.2-4.2); Glucose 118 mg/dL (74-106); Potassium 3.5 mmol/L (3.5-5.1); Protein, Total 5.3 g/dL (6.4-8.2); Sodium Level 147 mmol/L (136-145)
[2024-02-23] MEDS: Ceftriaxone 1 GM/50 ML BAG IV (09:58)
[2024-02-23] MEDS: Tamsulosin HCl 0.4 MG Capsule PO (09:59)
[2024-02-23] MEDS: prednisoLONE eye drops (5 mL) 1 DROP OPTH.BTL 1 DRP LEFT EYE ×2 (09:59→22:57)
[2024-02-23] MEDS: CARBIDOPA/LEVODOPA CR 50/200 Tablet PO ×4 (09:59→22:58)
[2024-02-23] MEDS: Pramipexole Di-HCl 1 MG Tablet PO ×4 (09:59→23:11)
[2024-02-23] MEDS: dilTIAZem CD 120 MG Capsule PO (10:00)
[2024-02-23] MEDS: Mupirocin Ointment 22gm Tube 1 APPLIC TOPICAL ×2 (10:01→23:00)
[2024-02-23] MEDS: DULoxetine Hcl 60 MG Capsule PO (10:01)
[2024-02-23] MEDS: Dorzolamide HCL/Timolol 10 ml Bottle OPHTHALMIC ×2 (10:01→22:59)
[2024-02-23] MEDS: Ciprofloxacin 500 MG Tablet PO (10:03)
[2024-02-23] MEDS: Memantine Hydrochloride 10 MG Tablet PO ×2 (10:03→22:58)
[2024-02-23] MEDS: Carbidopa/Levodopa 25/100 Tablet PO ×3 (10:03→22:58)
[2024-02-23] MEDS: 0.9% Saline Lock 10 ML Syringe IV (10:07)
--- NOTE | 2024-02-23 11:00 | CASEMGMT ---
LUIS ZAYAS Assessment Face to Face with patient for initial transition planning/care coordination assessment. LUIS ZAYAS introduced self and role at [facility], pt voices understanding. Pt is A&Ox4 and is resting comfortably in bed and is calm. Pt at bedside. Care providers, pharmacy, and demographics verified. Admitting dx: GI Bleed DERICKE Strata: 3 PCP: Masoud Rosa Specialists: Gera (Neuro), Yamilka (Uro), Mary (Cardio), Jude (PM) Preferred Pharmacy: [facility] Insurance: [employer] [facility] Prescription Benefit: Yes LNOK: Snow Carlson (W), Joaquina Pope (Daughter) Living Arrangements: Pt lives with his in a single story home with two steps to enter ADLs/IADLs: Pt requires assistance and the pt is the pt CG Transportation: Pt . Denies concerns DME: Hx with [employer] but returned the equipment. Pt does have a Pulse Ox still. Pt also has the following DME: Shower Chair, Raised TS, Cane, FWW, and Grab bars. HHC/SNF: Hx with [facility]. Denies SNF Hx Pt?s goal: Return to PLOF Plan: TBD. PT/OT is pending. Anticipate HHC vs SNF. CM and SW to follow. Rich Payne RN, CM
--- NOTE | 2024-02-23 12:06 | CASEMGMT ---
Discharge Planning A list of SNF providers including quality and resource use data and consistent with the patient's preferred geographic region, medical needs, and insurance network was created in CarePort Guide.? This list was provided to the SW. Pennie Peters Discharge Planning Asst.
--- NOTE | 2024-02-23 12:56 | CASEMGMT ---
LUIS ZAYAS NOTE: [facility] verify pt is active w/them. They were notified pt has been admitted to [facility] via e-mail. Alayna SPICER RN CM
--- NOTE | 2024-02-23 14:20 | CASEMGMT ---
Addendum entered by Ashley Cox 02/23/24 14:39: Social Work pt does have home health aid services. Currently 4 hours per week, but it can be increased to up to 8 hours a day. Pt's dgt is speaking with the home health agency to increase pt's hours of service. GABBIE Mondragon Original Note: Social Work SW met with pt, pt's Snow and pt's dgt Kristyn to discuss discharge plan. Pt is currently active with Palliative Medicine. Family asking questions regarding hospice and SW answered all these questions. Family plans to remain with palliative at this time and not interested in hospice services. SW spoke with pt and family regarding home with home health care vs. short term SNF prior to return home with his . After much discussion, pt is requesting to return home. Family is leaning toward SNF but has not made final decision. Pt has not yet had therapy. A list of SNF providers including quality and resource use data and consistent with the patient?s preferred geographic region, medical needs, and insurance network were provided from the CarePort Guide. After additional conversation, pt and family agreeable to referral to preferred provider [facility]. Family has not made final decision on discharge plan yet but are agreeable to at least start SNF process. Phone call to Estephania at [facility] and they do have beds available. DC resident assistant to send referral. SW will continue to follow for dc planning. Plan: [facility], pending acceptance and precert vs. Home with home health GABBIE Camacho
--- NOTE | 2024-02-23 14:28 | CASEMGMT ---
Discharge Planning Referral sent to [facility] via [facility]Port. Pennie Peters DC Planning Asst.
--- NOTE | 2024-02-23 16:06 | CHAPLAIN ---
Type of Pastoral Visit _x__ Initial Visit ___ Follow-up Visit ___ On-call Visit ___ General Patient Visit ___ Spiritual Assessment ___ Family Conference ___ Bereavement ___ Rapid Response ___ Code Blue ___ Other (describe below) Pastoral Care Referral From _x__ Patient _x__ Family ___ Nurse ___ Physician ___ Photograph Inspector ___ Stations Superintendent ___ Other (describe below) Sacrament/Intervention _x__ Active listening ___ Anointing ___ Lutheran ___ Bereavement ___ Communion ___ Kristen exploration ___ _x__ Life review _x__ Prayer ___ Reconciliation ___ Sacrament of Sick _x__ Supportive presence ___ Wedding ___ Other (describe below) Pastoral Comments patient is lying down in bed and admits that I feel terrible; pt had a procedure that discovered his problem and was corrected; and daughter are in the room; pt states his kristen in God and asks for prayer; pt concern is being able to do his gardening and be active again; presence and support given
--- NOTE | 2024-02-23 16:14 | CASEMGMT ---
Social Work SW met with pt to discuss advance directives.? Pt confirms he has completed a living will and health care POA naming his Snow Carlson. Pt notified that documents are not on file at [facility] and SW requested they be brought in for scanning into the EMR.? GABBIE Mondragon
[2024-02-23] MEDS: Ensure Plus High Protein 120 ML LIQUID PO (17:40)
[2024-02-23] MEDS: Latanoprost 0.005% 1 Bottle 1 DRP RIGHT EYE (22:58)
--- NOTE | 2024-02-23 23:01 | NURSING ---
2200 meds scanned in room after pt scanned, given and then realized that they did not record and had to be hand entered missing mirapex dose for 0, not in drawer or omnicell, communication sent to Pharmacy
[2024-02-24] VITALS (12 sets, daily range): BP systolic 88–123; BP diastolic 52–70; PULSE 80–94; RESP 16–18; TEMP 36.4–36.9; O2SAT 93–99; BMI 29.5
--- NOTE | 2024-02-24 06:18 | PCM.PN.HOSP ---
Reason for Visit Reason for Visit: Diagnoses Gastrointestinal hemorrhage, unspecified (02/22/24) Subjective Subjective Patient overnight with no acute events per self and per nursing report with no significant black tarry stools but patient does have fatigue significantly increased with activity attempts and significant tachycardia with rate into the 130s when he gets up and walks in the room with assistance. Discussed with patient and family and repeat hemoglobin this morning 9.8 and although stable from previous his baseline prior was primarily 14-15 thus not unexpected that he is symptomatic and given this planned PRBC administration to which they are amenable. Patient denies fevers, chills, nausea, emesis, abdominal pain, chest pain. Objective Data Objective Data Vital Signs: Vital Signs Temp Pulse Resp BP Pulse Ox O2 Del Method O2 Flow Rate 98.0 F 103 H 18 108/66 95 Room Air 3 02/23/24 20:00 02/23/24 23:19 02/23/24 20:00 02/23/24 20:00 02/23/24 20:00 02/23/24 20:00 02/23/24 08:31 FiO2 95 02/23/24 07:04 Oxygen Flow Rate (L/min) 3 Oxygen Delivery Method Room Air Weight: 187 lb 13.341 oz Body Mass Index (BMI) 29.5 Intake & Output: Intake and Output for Last 24 Hours 02/22/24 02/23/24 02/24/24 23:59 23:59 23:59 Intake Total 2345 / 2345 680.00 / 680.00 Output Total 900 / 900 Balance 2345 / 2345 -220.00 / -220.00 Lab / Micro Data 02/24/24 09:05 02/24/24 09:05 Labs: Laboratory Results - last 24 hr 02/23/24 08:37: WBC 6.4, RBC 3.24 L, Hgb 9.3 L, Hct 30.2 L, MCV 93.2, MCH 28.7, MCHC 30.8 L, RDW Std Deviation 59.2 H, RDW Coeff of Maneula 17.2 H, Plt Count 172, MPV 11.5, Immature Gran % (Auto) 1.400 H, Neut % (Auto) 80.6 H, Lymph % (Auto) 8.8 L, Mcdowell % (Auto) 6.5, Eos % (Auto) 2.2, Baso % (Auto) 0.5, Absolute Neuts (auto) 5.1, Absolute Lymphs (auto) 0.56 L, Nucleated RBC % 0, PT 15.8 H, INR 1.3, APTT 27.7, Sodium 147 H, Potassium 3.5, Chloride 121 H, Carbon Dioxide 21.0, Anion Gap 5, BUN 37 H, Creatinine 0.74, Estim Creat Clear Calc 78.35, Est GFR (MDRD) Af Amer 132, Est GFR (MDRD) Non-Af 109, BUN/Creatinine Ratio 50.3 H, Glucose 118 H, Calcium 7.8 L, Total Bilirubin 0.60, AST 6 L, ALT < 6 L, Alkaline Phosphatase 57, Total Protein 5.3 L, Albumin 2.6 L, Globulin 2.7, Albumin/Globulin Ratio 1.0 Micro: Microbiology 02/22/24 15:13 Stool Clostridioides difficile (PCR) - Final 02/22/24 09:09 Stool Stool Occult Blood (CHERRY) - Final Occult Blood Positive Physical Exam Narrative Physical Examination: General: Awake, alert, oriented x 3, markedly improved since day prior, more interactive and talkative, notes some issues with activity attempts in the room secondary to dyspnea and fatigue with noted tachycardia on monitor. Skin: Normal color, normal turgor, no icterus, no cyanosis except venous stasis skin changes, stage ecchymoses/abrasions HEENT: AT/NC, EOMI, PERRLA, MMM. Lungs: Diminished, greater bases, appropriate effort, no rales, ronchi or wheezing. Heart: Irregular, currently rate controlled but has been significantly elevated with activity attempts per review of telemetry; no gallop, rub audible. Abdomen: Soft, obese, NTTP, ND, normalized BS. Extremities: No cyanosis, no clubbing, chronic distal mid baca down to foot 1-2+ pitting edema, see skin. Neurological: Patient awake, alert, oriented as noted, cognitive function improved, appears at baseline, pupils equally reactive to light and accommodation, cranial nerves grossly normal, moving all 4 extremities, no focal deficits, strength improving, moderately to severely globally decreased. Psychiatric: Affect appears more normal, interactive, no acute evidence of depressive or anxiety feelings. 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 #1. Acute Upper GI Bleed w/ resultant Acute Blood Loss Anemia secondary to likely transiently bleeding gastric ulcer suspected secondary to chronic Celebrex usage: Admission hemoglobin 12.3, previous to this hemoglobin 11/16/23 14.1 with baseline primarily 14-15, admitted to medical surgical floor, maintain on telemetry initially secondary to tachycardia, hemoglobin trended with initial 02/22/24 Hgb 12.3->10.9->10.3->10.1->9.3, maintained on protonix drip initially, transitioned 02/24/24 to oral PPI. 02/23/2024 EGD with normal esophagus, nonbleeding gastric ulcer with no stigmata of bleeding which was biopsied. C-diff negative. 02/23/24 Rocephin prophylaxis d/c. 02/24/24 hemoglobin 9.8, stable. 02/24/24 given patient's significant symptomatic anemia with fatigue, dyspnea as well as notable tachycardia with any up and moving/activity attempts will administer 2 unit PRBC and repeat H&H following with as needed low-dose Lasix in between if necessary. PT/OT/case management consulted for discharge planning with skilled facility needs, currently awaiting facility precertification. #2. Hyperkalemia, mild: Admission CMP with potassium mildly elevated 5.2, not hemolyzed, hydrated, held potassium supplementation, 02/24/24 potassium 3.8. #3. Chronic Kidney Disease Stage II per GFR trending: Admission BUN/Cr 57/1.21, 61 although baseline more in the 80 range, baseline renal function 0.7 to primarily 1.1, 02/24/24 BUN/creatinine 24/0.92, GFR 85. #4. PAF: We will continue home diltiazem as BP allows, heightened fall risk/not chronically anticoagulated. #5. Parkinson's disease with associated dementia, unclear extent with unclear behavioral disturbance history: Will maintain on fall precautions, certainly complicates presentation, continue patient home memantine and pramipexole home regimen, PT/OT/case management consulted for discharge planning with as noted plan for skilled facility placement. #6. Cardiomyopathy, unclear type: Most recent noted echocardiogram 05/05/2021 with LV systolic function normal, EF 65%, mildly dilated RV, mild global RV systolic dysfunction, moderately enlarged LA, mildly enlarged RA, mild to moderate MVI, moderate TBI, trivial ARMANDO, trivial TVI, RVSP 43 mmHg. Judiciously hydrated. Held aspirin given bleed presentation with plan reevaluation outpatient and potential resumption once clinically appropriate. Not on beta-adan as on Cardizem. Not on a ACEI/ARB or statin therapy. Holding diuretic given low normal BP as noted. As noted above 02/24/24 plan to unit PRBC administration however will have as needed low-dose Lasix if any concern for volume overload arises. #7. History of prostate cancer: Status post radiation with unfortunately associated radiation cystitis, monitor for any urinary retention with previous chart reported history, will maintain on patient Nubeqa regimen however does have a potential side effect of bleeding risk but at this time as noted holding aspirin as well as complete discontinuation of Celebrex and will continue this agent but in the future any recurrence may need to consider alternate, encourage continued outpatient follow-up with urology as previously arranged. #8. Hypertension: BP remains low normal range, continue to hold torsemide, continue diltiazem as able, add back regimen once appropriate and monitor for any overload/edema/weight gain given IV fluid necessities with cardiomyopathy history. PRN hydralazine. #9. Hyperlipidemia: Not on regimen, defer to outpatient. #10. Anxiety and depression: We will continue patient home duloxetine regimen. #11. BPH: We will continue patient home Flomax home regimen. #12. Recent Complicated Enterobacter UTI: Noted 02/06/2024 urine culture with Enterobacter greater than 100,000 with decent sensitivities placed on ciprofloxacin with patient and family reporting prolonged course with last dose 02/23/2024, completed. #13. DVT prophylaxis: SCDs, defer any chemoprophylaxis given presentation #1. #14. CODE status: Patient HCPOA is his who is present and living will is currently in place. Full Code status. Charges/Coding Visit Charges Inpatient E&M: 58637 Subs Hosp L3
[2024-02-24] MEDS: Carbidopa/Levodopa 25/100 Tablet PO ×4 (06:41→22:22)
--- NOTE | 2024-02-24 08:59 | CASEMGMT ---
Addendum entered by Pennie Peters 02/24/24 15:23: Patient has chosen another snf. [facility] asked to cancel referral. Pennie Peters DC Planning Asst. Original Note: Discharge Planning Updates, including therapy evals, sent via [facility]Port to [facility]. Pennie Peters DC Planning Asst.
[2024-02-24 09:12] LABS: Absolute Lymphocyte Count 0.51 X10^3/uL (0.83-4.51); Basophil# 0.02 X10^3/uL; Basophil% 0.2 % (0-1); Eosinophils% 2.4 % (0-5); Hematocrit 31.6 % (40-54); Hemoglobin 9.8 g/dL (13.0-16.5); Lymphocyte # 0.51 X10^3/ul (0.83-4.51); Lymphocyte % 6.2 % (19-41); Mean Corpuscular Hgb 29.2 pg (27.0-32.0); Mean Platelet Vol. 10.2 fl (6.2-12.0); Monocyte# 0.43 X10^3/uL; Monocyte% 5.2 % (0-10); NRBC Flagged by Analyzer 0 % (0-5); Neutrophil # 7.01 X10^3/uL (2.7-7.7); Neutrophil % 84.9 % (47-70); POSITIVE DIFFERENTIAL YES; Platelet Count 176 K/mm3 (150-450); RBC Distribution Width CV 17.7 % (11.6-14.6); RBC Distribution Width SD 60.4 fl (35.1-43.9); Red Blood Count 3.36 M/mm3 (4.6-6.2); White Blood Count 8.3 K/mm3 (4.4-11.0)
[2024-02-24 09:33] LABS: ALB/GLOB Ratio 0.9 RATIO (0.9-2.4); AST(SGOT) 6 U/L (15-37); Alanine Aminotransfer ALT/SGPT 7 U/L (16-61); Albumin, Serum 2.8 g/dL (3.2-5.0); Alkaline Phosphatase 66 U/L (45-117); Anion Gap 5 (5-15); BUN 24 mg/dL (7-18); BUN/Creat Ratio 26.2 RATIO (10-20); Calcium,Total 8.4 mg/dL (8.5-10.1); Chloride 117 mmol/L (98-107); Creatinine, Serum 0.92 mg/dL (0.70-1.30); EST Glomerular Filtration Rate 85 mL/min (>60); Est Glom Filt Rate - Afr Amer 103 mL/min (>60); Estimated Creatinine Clearance 67.91 ml/min; Globulin 3.2 g/dL (2.2-4.2); Glucose 153 mg/dL (74-106); Potassium 3.8 mmol/L (3.5-5.1); Sodium Level 146 mmol/L (136-145)
--- NOTE | 2024-02-24 09:47 | CASEMGMT ---
Addendum entered by Kelli August 02/24/24 14:26: Social Work- Precert obtained; pt and updated. TCU will accept pt Tuesday. Physician advised. GABBIE Kruger Addendum entered by Kelli August 02/24/24 13:37: Social Work- TCU accepted referral; precert started. CARMEN provided information and education to pt and pt family. Plan: TCU; skilled level of care GABBIE Kruger Original Note: Social Work- SW met with pt and his to discuss d/c preferences. Pt reports that the family had a meeting and it was decided that [facility]CU is [facility], followed by [facility] as second choice. Pt and are aware of COVID at both facilities. SW completed referral to TCU. GABBIE Kruger
[2024-02-24] MEDS: DAROLUTAMIDE 300 MG 600 MG PO (10:54)
[2024-02-24] MEDS: Pantoprazole Sodium 40 MG Tablet PO ×2 (10:55→22:25)
[2024-02-24] MEDS: Pramipexole Di-HCl 1 MG Tablet PO ×4 (10:56→22:26)
[2024-02-24] MEDS: dilTIAZem CD 120 MG Capsule PO (10:56)
[2024-02-24] MEDS: Memantine Hydrochloride 10 MG Tablet PO ×2 (11:01→22:23)
[2024-02-24] MEDS: DULoxetine Hcl 60 MG Capsule PO (11:01)
[2024-02-24] MEDS: Tamsulosin HCl 0.4 MG Capsule PO (11:02)
[2024-02-24] MEDS: Mupirocin Ointment 22gm Tube 1 APPLIC TOPICAL ×2 (11:05→22:22)
[2024-02-24] MEDS: Dorzolamide HCL/Timolol 10 ml Bottle OPHTHALMIC ×2 (11:06→22:20)
[2024-02-24] MEDS: prednisoLONE eye drops (5 mL) 1 DROP OPTH.BTL 1 DRP LEFT EYE ×2 (11:19→22:21)
[2024-02-24] MEDS: Acetaminophen 325 MG Tablet 650 MG PO (11:20)
[2024-02-24] MEDS: CARBIDOPA/LEVODOPA CR 50/200 Tablet PO ×3 (11:29→22:23)
[2024-02-24] MEDS: 0.9% Normal Saline (500mL Bag) 500 ML 15 ML IV (12:20)
--- NOTE | 2024-02-24 13:59 | TREXTCAR_ITS ---
Diet Diet Order/Speech Therapy: 02/24/24 12:00 Diet: Regular - General Food consistency:: Mechanical (Minced/Moist) Liquid Consistency:: Regular/Thin Type of Dietary Supplement:: Ensure Compact Diet Comments: ensure compact high protein 120cc. no straws Routine Orders/Code Status Routine Lab Work: - (Repeat CBC, BMP in 1-2 weeks or per TCU physician discretion.) Code Status: Full Code Wound(s) scattered open calluses to bilateral feet: Wound Type: Abrasion Therapies Weight Bearing: Full weight bearing Physical Therapy: Eval and Treat Occupational Therapy: Eval and Treat Problem/Diagnosis (1) GI bleed: Status: Acute Code(s): K92.2 - Gastrointestinal hemorrhage, unspecified Comment: DISCHARGE DIAGNOSES: #1. Acute Upper GI Bleed w/ resultant Acute Blood Loss Anemia secondary to likely transiently bleeding gastric ulcer suspected secondary to chronic Celebrex usage #2. Hyperkalemia, mild, resolved #3. Chronic Kidney Disease Stage II per GFR trending #4. PAF #5. Parkinson's disease with associated dementia, unclear extent with unclear behavioral disturbance history #6. Cardiomyopathy, unclear type #7. History of prostate cancer #8. Hypertension #9. Hyperlipidemia #10. Anxiety and depression #11. BPH #12. Recent Complicated Enterobacter UTI, completed abx therapy #13. CODE status: HCPOA /living will in place. Full Code status. Allergies/Procedures Done in Hospital Allergies lidocaine Allergy (Verified 02/22/24 08:18) Angioedema peppermint Allergy (Verified 02/22/24 08:18) Angioedema phenylephrine Allergy (Verified 02/22/24 08:18) Angioedema doxycycline Adverse Reaction (Intermediate, Verified 02/22/24 08:18) SUNBURN Procedures: Blood transfusion, EGD and EKG Type of Care/Length of Stay Estimated LOS: Convalescent Care Less Than 30 days Type of Care Needed: Skilled Rehab Potential: Good Prognosis: Good Additional Orders/Day of Discharge Additional Orders: (1) Encourage HOB/aspiration precautions and fall precautions, (2) IS 10x hr 7a-7p, (3) OOB to table/dining room for all meals. Day of Discharge: 02/25/24 Dietary and Speech Recommendations Dietitian Recommendations/Changes: Recommend advance diet as tolerated to liberalized regular with consistency/texture evaluation per ALIGNING CHECKER as needed. Will add 240mL ensure clear w/ meals while on clear liquid diet. Adjust ONS as needed once diet advanced beyond clear liquids. Re-evaluate for malnutrition when diet advanced. Discharge Plan Admission Admit Date/Time: 02/22/24 10:30 Primary Reason for Your Visit: Acute Upper GI Bleed, Acute Blood Loss Anemia Attending Provider: Bettina Perez Primary Care Provider: Masoud Rosa Instructions Patient Instructions: ED Upper GI Bleeding (Stable) Additional Instructions / Restrictions: ADDITIONAL DISCHARGE REVIEW/PLAN OF CARE: #1. Acute Upper GI Bleed w/ resultant Acute Blood Loss Anemia secondary to likely transiently bleeding gastric ulcer suspected secondary to chronic Celebrex usage: --02/23/2024 EGD with normal esophagus, nonbleeding gastric ulcer with no stigmata of bleeding which was biopsied. --Initially treated with protonix bolus and drip transitioned eventually to oral protonix twice daily. --Administered 2 unit PRBC secondary to symptomatic anemia. --Will hold home on aspirin therapy as noted with planned repeat Hgb prior to assure stable and also following restart to assure not decreasing. --AVOID taking any NSAID type therapies. Discharge Orders/Prescriptions Prescriptions: Continued carbidopa-levodopa 50-200 mg tablet extended release 1 tablet PO 4X/DAY Patient Comments: verified with -pt only takes 1 of this strength 4x/day Rx Instructions: TAKE 1 IN THE MORNING, 1 AT LUNCH, 1 IN THE EVENING, AND 1 AT BEDTIME dorzolamide-timolol 22.3-6.8 mg/mL drops 1 - 2 drp OPHTHALMIC BID tamsulosin 0.4 mg capsule 0.4 mg PO DAILY tramadol 50 mg tablet 50 mg PO TID PRN (Reason: pain) celecoxib [Celebrex] 200 mg capsule 200 mg PO DAILY PRN (Reason: pain) ascorbic acid (vitamin C) 1,000 mg tablet 1 g PO Q6H duloxetine 60 mg capsule,delayed release(DR/EC) 60 mg PO QDAY Nubeqa 300 mg tablet 600 mg PO DAILY Patient Comments: PT FAMILY AWARE THEY WILL HAVE TO BRING MED FROM HOME prednisolone acetate 1 % drops,suspension 1 drp LEFT EYE Q12H latanoprost 0.005 % drops 1 drp RIGHT EYE QHS memantine 10 mg tablet 10 mg PO BID carbidopa-levodopa 25-100 mg tablet 2 tab PO 4X/DAY Rx Instructions: TAKE 2 IN THE MORNING, 2 AT LUNCH, 2 IN THE EVENING, AND 2 AT BEDTIME albuterol sulfate 90 mcg/actuation HFA aerosol inhaler 1 inh inhalation Q6H PRN (Reason: shortness of breath or wheezing) Qty: 8.5 0RF (DME) Space Chamber Spacer See Rx Instructions .Route Qty: 1 0RF Rx Instructions: As directed potassium chloride 20 mEq Tablet,Er Particles/Crystals 20 meq PO BIDCM Qty: 60 0RF acetaminophen 500 mg capsule 1,000 mg PO Q6H PRN (Reason: pain) mupirocin 2 % ointment 1 applic topical BID pramipexole 1 mg tablet 1 mg PO 4X/DAY Rx Instructions: TAKE IN THE MORNING, AT LUNCH, IN THE EVENING, AND AT BEDTIME diltiazem HCl 120 mg capsule,extended release 24 hr See Rx Instructions .ROUTE .COMPLEX Qty: 90 3RF Dose Instruction: take 1 capsule by mouth once daily Rx Instructions: take 1 capsule by mouth once daily Held torsemide 20 mg tablet 20 mg PO DAILY 30 Days Qty: 30 0RF Hold Instructions: Resume on 02/27/24. Blood pressure low normal range, prioritizine rate control regimen, may add back diuretic if repeat BP assessment appropriate. aspirin 81 mg tablet,delayed release (DR/EC) 81 mg PO DAILY Qty: 90 3RF Hold Instructions: Resume on 03/05/24. Hold aspirin therapy until repeat Hgb assessment to assure stable and then also afterwards will need follow-up Hgb to assure not dropping since resumption. Discontinued ciprofloxacin HCl 500 mg tablet 500 mg PO DAILY Patient Comments: PT HAS 1 DOSE LEFT Referrals / Follow Up: Masoud Rosa MD [Primary Care Provider] - (Follow-up within 2-3 days of SNF discharge to review admission.) Joel Herr DO [Med Staff - Active Staff] - (Follow-up within 2-4 weeks, may see PA or BEET WORKER in the office.) Disposition Disposition (needs filled in before D/C Order can be placed): [facility] Facility
--- NOTE | 2024-02-24 15:11 | NURSING ---
switched to flushing blood tubing
--- NOTE | 2024-02-24 18:53 | EX.PCM.PN.GI ---
Subjective Subjective Patient underwent an upper endoscopy yesterday. He was discovered to have peptic ulcer disease. He is not have any abdominal pain. He has not seen any signs of bleeding and is tolerating a diet. Objective Data Objective Data Vital Signs: Vital Signs Temp Pulse Resp BP Pulse Ox O2 Del Method O2 Flow Rate 98.4 F 84 16 101/69 93 Room Air 3 02/24/24 16:54 02/24/24 16:54 02/24/24 16:54 02/24/24 16:54 02/24/24 16:54 02/24/24 16:54 02/23/24 08:31 FiO2 95 02/23/24 07:04 Oxygen Flow Rate (L/min) 3 Oxygen Delivery Method Room Air Weight: 187 lb 13.341 oz Body Mass Index (BMI) 29.5 Intake & Output: Intake and Output for Last 24 Hours 02/22/24 02/23/24 02/24/24 23:59 23:59 23:59 Intake Total 2345 / 2345 680.00 / 680.00 578.25 / 578.25 Output Total 900 / 900 400 / 400 Balance 2345 / 2345 -220.00 / -220.00 178.25 / 178.25 Lab / Micro Data 02/24/24 09:05 02/24/24 09:05 Labs: Laboratory Results - last 24 hr 02/22/24 08:25: Crossmatch See Detail 02/24/24 09:05: WBC 8.3, RBC 3.36 L, Hgb 9.8 L, Hct 31.6 L, MCV 94.0, MCH 29.2, MCHC 31.0 L, RDW Std Deviation 60.4 H, RDW Coeff of Manuela 17.7 H, Plt Count 176, MPV 10.2, Immature Gran % (Auto) 1.100 H, Neut % (Auto) 84.9 H, Lymph % (Auto) 6.2 L, [place] % (Auto) 5.2, Eos % (Auto) 2.4, Baso % (Auto) 0.2, Absolute Neuts (auto) 7.0, Absolute Lymphs (auto) 0.51 L, Nucleated RBC % 0, Sodium 146 H, Potassium 3.8, Chloride 117 H, Carbon Dioxide 24.0, Anion Gap 5, BUN 24 H, Creatinine 0.92, Estim Creat Clear Calc 67.91, Est GFR (MDRD) Af Amer 103, Est GFR (MDRD) Non-Af 85, BUN/Creatinine Ratio 26.2 H, Glucose 153 H, Calcium 8.4 L, Total Bilirubin 0.60, AST 6 L, ALT 7 L, Alkaline Phosphatase 66, Total Protein 6.0 L, Albumin 2.8 L, Globulin 3.2, Albumin/Globulin Ratio 0.9 Micro: Microbiology 02/22/24 15:13 Stool Clostridioides difficile (PCR) - Final 02/22/24 09:09 Stool Stool Occult Blood (CHERRY) - Final Occult Blood Positive Physical Exam Narrative Physical Examination: General: Awake, alert, oriented x 3, markedly improved since day prior, more interactive and talkative, notes some issues with activity attempts in the room secondary to dyspnea and fatigue with noted tachycardia on monitor. Skin: Normal color, normal turgor, no icterus, no cyanosis except venous stasis skin changes, stage ecchymoses/abrasions HEENT: AT/NC, EOMI, PERRLA, MMM. Lungs: Diminished, greater bases, appropriate effort, no rales, ronchi or wheezing. Heart: Irregular, currently rate controlled but has been significantly elevated with activity attempts per review of telemetry; no gallop, rub audible. Abdomen: Soft, obese, NTTP, ND, normalized BS. Extremities: No cyanosis, no clubbing, chronic distal mid baca down to foot 1-2+ pitting edema, see skin. Neurological: Patient awake, alert, oriented as noted, cognitive function improved, appears at baseline, pupils equally reactive to light and accommodation, cranial nerves grossly normal, moving all 4 extremities, no focal deficits, strength improving, moderately to severely globally decreased. Psychiatric: Affect appears more normal, interactive, no acute evidence of depressive or anxiety feelings. Assessment & Plan Assessment/Plan (1) GI bleed: PLAN: Plan The patient is a 78-year-old with significant past medical history of severe Parkinson's disease we discovered to have multiple episodes of GI bleeding. He underwent an upper endoscopy: 02/23/2024 EGD with normal esophagus, nonbleeding gastric ulcer with no stigmata of bleeding which was biopsied. Awaiting his H. pylori status regarding gastric ulcer. Recommend PPI twice a day for 8 weeks and then once a day. Follow-up in clinic in approximately 4 weeks. Charges/Coding Visit Charges Inpatient E&M: 22827 Subs Hosp L3
--- NOTE | 2024-02-24 19:09 | NURSING ---
switched to flush blood tubing
[2024-02-24 22:18] LABS: Hematocrit 31.6 % (40-54); Hemoglobin 10.2 g/dL (13.0-16.5)
[2024-02-24] MEDS: Latanoprost 0.005% 1 Bottle 1 DRP RIGHT EYE (22:21)
[2024-02-25 02:35] VITALS: BP 114/70; PULSE 90; RESP 16; TEMP 36.7; O2SAT 94
[2024-02-25 06:00] VITALS: BMI 31.1
[2024-02-25 06:12] LABS: Absolute Lymphocyte Count 0.52 X10^3/uL (0.83-4.51); Absolute Neutrophil Count 4.5 X10^3/uL (2.0-7.7); Basophil# 0.03 X10^3/uL; Basophil% 0.5 % (0-1); Eosinophil# 0.21 X10^3/uL; Eosinophils% 3.6 % (0-5); Hematocrit 31.2 % (40-54); Hemoglobin 10.1 g/dL (13.0-16.5); Lymphocyte # 0.52 X10^3/ul (0.83-4.51); Lymphocyte % 8.9 % (19-41); Mean Corp Hgb Conc 32.4 g/dL (32-36); Mean Corpuscular Volume 89.7 fL (80-94); Mean Platelet Vol. 11.7 fl (6.2-12.0); Monocyte# 0.49 X10^3/uL; Monocyte% 8.3 % (0-10); NRBC Flagged by Analyzer 0.3 % (0-5); Neutrophil # 4.54 X10^3/uL (2.7-7.7); Neutrophil % 77.3 % (47-70); POSITIVE DIFFERENTIAL YES; Platelet Count 133 K/mm3 (150-450); RBC Distribution Width CV 17.9 % (11.6-14.6); RBC Distribution Width SD 57.8 fl (35.1-43.9); Red Blood Count 3.48 M/mm3 (4.6-6.2); White Blood Count 5.9 K/mm3 (4.4-11.0)
[2024-02-25 07:03] LABS: ALB/GLOB Ratio 0.9 RATIO (0.9-2.4); AST(SGOT) 8 U/L (15-37); Alanine Aminotransfer ALT/SGPT < 6 U/L (16-61); Albumin, Serum 2.5 g/dL (3.2-5.0); Alkaline Phosphatase 63 U/L (45-117); Anion Gap 4 (5-15); BUN 17 mg/dL (7-18); BUN/Creat Ratio 25.8 RATIO (10-20); Calcium,Total 8.2 mg/dL (8.5-10.1); Chloride 115 mmol/L (98-107); Creatinine, Serum 0.66 mg/dL (0.70-1.30); EST Glomerular Filtration Rate 124 mL/min (>60); Est Glom Filt Rate - Afr Amer 150 mL/min (>60); Estimated Creatinine Clearance 80.13 ml/min; Globulin 2.8 g/dL (2.2-4.2); Glucose 104 mg/dL (74-106); Potassium 3.8 mmol/L (3.5-5.1); Protein, Total 5.3 g/dL (6.4-8.2); Sodium Level 143 mmol/L (136-145)
[2024-02-25] MEDS: Carbidopa/Levodopa 25/100 Tablet PO (08:22)
[2024-02-25] MEDS: Mupirocin Ointment 22gm Tube 1 APPLIC TOPICAL (08:23)
[2024-02-25] MEDS: CARBIDOPA/LEVODOPA CR 50/200 Tablet PO (08:23)
[2024-02-25] MEDS: DAROLUTAMIDE 300 MG 600 MG PO (08:23)
[2024-02-25] MEDS: Dorzolamide HCL/Timolol 10 ml Bottle OPHTHALMIC (08:24)
[2024-02-25] MEDS: DULoxetine Hcl 60 MG Capsule PO (08:24)
[2024-02-25] MEDS: dilTIAZem CD 120 MG Capsule PO (08:24)
[2024-02-25] MEDS: Tamsulosin HCl 0.4 MG Capsule PO (08:25)
[2024-02-25] MEDS: prednisoLONE eye drops (5 mL) 1 DROP OPTH.BTL 1 DRP LEFT EYE (08:26)
[2024-02-25] MEDS: Memantine Hydrochloride 10 MG Tablet PO (08:26)
[2024-02-25 08:30] VITALS: BP 121/67; PULSE 97; RESP 16; TEMP 36.7; O2SAT 95
[2024-02-25] MEDS: Pantoprazole Sodium 40 MG Tablet PO (08:33)
--- NOTE | 2024-02-25 09:01 | CASEMGMT ---
Social Work Precert has been obtained.? Physician updated and pt is ready for discharge today.?? SW met with pt and they are agreeable to discharge plan as stated above.? Bedside nurse notified of discharge. Disposition: TCU, skilled level of care under convalescent stay. GABBIE Kruger
--- NOTE | 2024-02-25 10:14 | PCM.DC.SUM ---
Providers Date of Admission: 02/22/24 Date of Discharge: 02/25/24 Primary Care Physician: Dr. Masoud Rosa MD Consultations 02/22/24 11:32 Consult: Gastroenterology Routine Consulting Provider: [facility] Reason for Consult: GI bleed, ABLA EMERGENT Consult: No MD Notified: Yes Date Notified: 02/22/24 Time Notified: 10:34 Method of Notification: ED Physician Initiated Reason For Visit: GI BLEED, ASLA Diagnosis Discharge Diagnosis (1) GI bleed: Status: Acute Code(s): K92.2 - Gastrointestinal hemorrhage, unspecified Plan: DISCHARGE DIAGNOSES: #1. Acute Upper GI Bleed w/ resultant Acute Blood Loss Anemia secondary to likely transiently bleeding gastric ulcer suspected secondary to chronic Celebrex usage #2. Hyperkalemia, mild, resolved #3. Chronic Kidney Disease Stage II per GFR trending #4. PAF #5. Parkinson's disease with associated dementia, unclear extent with unclear behavioral disturbance history #6. Cardiomyopathy, unclear type #7. History of prostate cancer #8. Hypertension #9. Hyperlipidemia #10. Anxiety and depression #11. BPH #12. Recent Complicated Enterobacter UTI, completed abx therapy #13. CODE status: HCPOA /living will in place. Full Code status. Medications at Discharge Home Medications carbidopa ER 50 mg-levodopa 200 mg tablet,extended release 1 tablet PO 4X/DAY parkinsons 09/25/20 dorzolamide 22.3 mg-timolol 6.8 mg/mL eye drops 1 - 2 drp ophthalmic (eye) BID glaucoma 09/25/20 prednisolone acetate 1 % eye drops,suspension 1 drp LEFT EYE Q12H vision 11/13/20 latanoprost 0.005 % eye drops 1 drp RIGHT EYE QHS eye he 09/10/21 memantine 10 mg tablet 10 mg PO BID MEMORY 09/10/21 aspirin 81 mg tablet,delayed release 81 mg PO DAILY HEALTH #90 tabs 05/10/22 tamsulosin 0.4 mg capsule 0.4 mg PO DAILY prostate 03/14/23 carbidopa 25 mg-levodopa 100 mg tablet 2 tab PO 4X/DAY parkinson 08/05/23 albuterol sulfate 90 mcg/actuation aerosol inhaler 1 inh inhalation Q6H PRN shortness of breath or wheezing #8.5 grams 08/08/23 inhalational spacing device (Space Chamber) #1 ea 08/08/23 torsemide 20 mg tablet 20 mg PO DAILY FLUID RETETION 30 days #30 tabs 08/09/23 celecoxib 200 mg capsule (Celebrex) 200 mg PO DAILY PRN pain 09/28/23 tramadol 50 mg tablet 50 mg PO TID PRN pain 09/28/23 potassium chloride 20 mEq tablet,extended release(part/cryst) 20 meq PO BIDCM #60 tabs 11/17/23 diltiazem HCl 120 mg capsule,24 hr,extended release See Rx Instructions .Route .COMPLEX heart #90 CAPSULES 02/01/24 ascorbic acid (vitamin C) 1,000 mg tablet 1 g PO Q6H 02/04/24 darolutamide 300 mg tablet (Nubeqa) 600 mg PO DAILY 02/04/24 duloxetine 60 mg capsule,delayed release 60 mg PO QDAY 02/04/24 acetaminophen 500 mg capsule 1,000 mg PO Q6H PRN pain 02/22/24 mupirocin 2 % topical ointment 1 applic topical BID 02/22/24 pramipexole 1 mg tablet 1 mg PO 4X/DAY 02/22/24 Hospital Course Operations None Procedures Blood transfusion, EGD and EKG Summary of Care Provided Minutes Spent on Discharge: 35 Hospital Course: The patient is a 78 y/o M w/ PMHx: CKD stage II based on GFR trending, Anxiety and Depression, PAF not anticoagulated secondary to Fall risk, Hx Prostate CA w/ history of radiation cystitis w/ chart reported prior urinary retention obstructive pathology, Cardiomyopathy unclear type, HTN, HLD, Parkinson's with imbalance/gait disturbance who presented to the [facility] ED on 02/22/24 with history of painless onset of bloody stools noted to be black on day of presentation in the morning, only on a baby aspirin with last bowel movement prior to this 2 days previous with no blood at that time with intermittent lightheadedness and dizziness recently normally using a walker for ambulation but given this finding prompted ED evaluation be cautious. Patient noted heavy celebrex ongoing usage. Admission hemoglobin 12.3, previous to this hemoglobin 11/16/23 14.1 with baseline primarily 14-15, admitted to medical surgical floor, maintain on telemetry initially secondary to tachycardia, hemoglobin trended with initial 02/22/24 Hgb 12.3->10.9->10.3->10.1->9.3, maintained on protonix drip initially, transitioned 02/24/24 to oral PPI. 02/23/2024 EGD with normal esophagus, nonbleeding gastric ulcer with no stigmata of bleeding which was biopsied. C-diff negative. 02/23/24 Rocephin prophylaxis d/c. 02/24/24 hemoglobin 9.8, stable. 02/24/24 given patient's significant symptomatic anemia with fatigue, dyspnea as well as notable tachycardia with any up and moving/activity attempts will administer 2 unit PRBC with Hgb following 10.2. 02/25/24 repeat AM Hgb stable 10.1. PT/OT/case management consulted for discharge planning with skilled facility needs with transition to TCU. Patient discharged with plan for follow-up with PCP, follow-up with GI in addition to hold on antiplt therapy until repeat Hgb and potential restart if appropriate with recheck following to assure remains stable following temporary hold. Patient BP improved however was low normal during presentation thus torsemide temporarily also held with planned repeat assessment BPs during transition and potential restart once BP appropriate. DAY OF DISCHARGE PROGRESS NOTE: Subjective: Patient without acute event overnight per self and nursing report. No further marked black stool. Patient clinically feels improved following PRBC administration the day prior and is able to ambulate without significant tachycardia onset. Patient and family still remain amenable to transitional care for ongoing therapies. Patient denies fever, chills, nausea, emesis, abdominal pain, chest pain or dyspnea. Patient agreeable to discharge to TCU as noted. Patient will be discharged with follow-up with primary care physician as well as follow-up with gastroenterology. Objective: T98, heart rate 97, BP 121/67, respiratory rate 16, 95% on room air. Physical Examination: General: Awake, alert, oriented x 3, visiting with his family, eating without issue, notes up and moving with greater ease following PRBC administration the day prior but still very weak and needs great assistance. Skin: Normal color, normal turgor, no icterus, no cyanosis except venous stasis skin changes, stage ecchymoses/abrasions. HEENT: AT/NC, EOMI, PERRLA, MMM. Lungs: Diminished, greater bases, appropriate effort, no rales, ronchi or wheezing. Heart: Irregular, rate controlled, improved rate with activity per discussion with staff also following PRBC administration day prior; no gallop, rub audible. Abdomen: Soft, obese, NTTP, ND, normalized BS. Extremities: No cyanosis, no clubbing, chronic distal mid baca down to foot 1+, see skin. Neurological: Patient awake, alert, oriented as noted, cognitive function improved, appears at baseline, pupils equally reactive to light and accommodation, cranial nerves grossly normal, moving all 4 extremities, no focal deficits, strength improving, moderately to severely globally decreased. Psychiatric: Affect appears normal, no acute evidence of depressive or anxiety feelings. Assessment and Plan: Please see hospital summary above. Weight / BMI Weight Weight: 198 lb 6.656 oz Body Mass Index (BMI) 31.1 ABG / Lab / Microbiology Data 02/25/24 05:46 02/25/24 05:46 Laboratory: Laboratory Results - last 24 hr 02/22/24 08:25: Crossmatch See Detail 02/24/24 22:03: Hgb 10.2 L, Hct 31.6 L 02/25/24 05:46: WBC 5.9, RBC 3.48 L, Hgb 10.1 L, Hct 31.2 L, MCV 89.7, MCH 29.0, MCHC 32.4, RDW Std Deviation 57.8 H, RDW Coeff of Manuela 17.9 H, Plt Count 133 L, MPV 11.7, Immature Gran % (Auto) 1.400 H, Neut % (Auto) 77.3 H, Lymph % (Auto) 8.9 L, [place] % (Auto) 8.3, Eos % (Auto) 3.6, Baso % (Auto) 0.5, Absolute Neuts (auto) 4.5, Absolute Lymphs (auto) 0.52 L, Nucleated RBC % 0.3, Sodium 143, Potassium 3.8, Chloride 115 H, Carbon Dioxide 24.0, Anion Gap 4 L, BUN 17, Creatinine 0.66 L, Estim Creat Clear Calc 80.13, Est GFR (MDRD) Af Amer 150, Est GFR (MDRD) Non-Af 124, BUN/Creatinine Ratio 25.8 H, Glucose 104, Calcium 8.2 L, Total Bilirubin 0.80, AST 8 L, ALT < 6 L, Alkaline Phosphatase 63, Total Protein 5.3 L, Albumin 2.5 L, Globulin 2.8, Albumin/Globulin Ratio 0.9 Microbiology: Microbiology 02/22/24 15:13 Stool Clostridioides difficile (PCR) - Final 02/22/24 09:09 Stool Stool Occult Blood (CHERRY) - Final Occult Blood Positive Meaningful Use Info Meaningful Use Meaningful Use Diagnoses (Choose all that apply): None applicable Ischemic Stroke Statin Dosing Therapy Reference: STATIN DOSE THERAPY REFERENCE: * Patients > 75 years receive moderate or high dose statin therapy. * Patients 75 years or YOUNGER should receive HIGH intensity statin dose unless contraindicated. You will be required to document reason for non-treatment if statin daily dose does not meet guidelines. HIGH DOSE STATIN THERAPY DAILY Atorvastatin > than or = to 40 mg Rosuvastatin > than or = to 20 mg Amlodipine + Atorvastatin > than or = to 2.5/40 mg Ezetimibe + Simvastatin 10/80 mg Simvastatin 80mg Discharge Plan Admission Admit Date/Time: 02/22/24 10:30 Primary Reason for Your Visit: Acute Upper GI Bleed, Acute Blood Loss Anemia Attending Provider: Bettina Perez Primary Care Provider: Masoud Rosa Instructions Patient Instructions: ED Upper GI Bleeding (Stable) Additional Instructions / Restrictions: ADDITIONAL DISCHARGE REVIEW/PLAN OF CARE: #1. Acute Upper GI Bleed w/ resultant Acute Blood Loss Anemia secondary to likely transiently bleeding gastric ulcer suspected secondary to chronic Celebrex usage: --02/23/2024 EGD with normal esophagus, nonbleeding gastric ulcer with no stigmata of bleeding which was biopsied. --Initially treated with protonix bolus and drip transitioned eventually to oral protonix twice daily. --Administered 2 unit PRBC secondary to symptomatic anemia. --Will hold home on aspirin therapy as noted with planned repeat Hgb prior to assure stable and also following restart to assure not decreasing. --AVOID taking any NSAID type therapies. --We have also placed your torsemide on hold until your blood pressure is appropriate to restart. Discharge Orders/Prescriptions Prescriptions: Continued carbidopa-levodopa 50-200 mg tablet extended release 1 tablet PO 4X/DAY Patient Comments: verified with -pt only takes 1 of this strength 4x/day Rx Instructions: TAKE 1 IN THE MORNING, 1 AT LUNCH, 1 IN THE EVENING, AND 1 AT BEDTIME dorzolamide-timolol 22.3-6.8 mg/mL drops 1 - 2 drp OPHTHALMIC BID tamsulosin 0.4 mg capsule 0.4 mg PO DAILY tramadol 50 mg tablet 50 mg PO TID PRN (Reason: pain) celecoxib [Celebrex] 200 mg capsule 200 mg PO DAILY PRN (Reason: pain) ascorbic acid (vitamin C) 1,000 mg tablet 1 g PO Q6H duloxetine 60 mg capsule,delayed release(DR/EC) 60 mg PO QDAY Nubeqa 300 mg tablet 600 mg PO DAILY Patient Comments: PT FAMILY AWARE THEY WILL HAVE TO BRING MED FROM HOME prednisolone acetate 1 % drops,suspension 1 drp LEFT EYE Q12H latanoprost 0.005 % drops 1 drp RIGHT EYE QHS memantine 10 mg tablet 10 mg PO BID carbidopa-levodopa 25-100 mg tablet 2 tab PO 4X/DAY Rx Instructions: TAKE 2 IN THE MORNING, 2 AT LUNCH, 2 IN THE EVENING, AND 2 AT BEDTIME albuterol sulfate 90 mcg/actuation HFA aerosol inhaler 1 inh inhalation Q6H PRN (Reason: shortness of breath or wheezing) Qty: 8.5 0RF (DME) Space Chamber Spacer See Rx Instructions .Route Qty: 1 0RF Rx Instructions: As directed potassium chloride 20 mEq Tablet,Er Particles/Crystals 20 meq PO BIDCM Qty: 60 0RF acetaminophen 500 mg capsule 1,000 mg PO Q6H PRN (Reason: pain) mupirocin 2 % ointment 1 applic topical BID pramipexole 1 mg tablet 1 mg PO 4X/DAY Rx Instructions: TAKE IN THE MORNING, AT LUNCH, IN THE EVENING, AND AT BEDTIME diltiazem HCl 120 mg capsule,extended release 24 hr See Rx Instructions .ROUTE .COMPLEX Qty: 90 3RF Dose Instruction: take 1 capsule by mouth once daily Rx Instructions: take 1 capsule by mouth once daily Held torsemide 20 mg tablet 20 mg PO DAILY 30 Days Qty: 30 0RF Hold Instructions: Resume on 02/27/24. Blood pressure low normal range, prioritizine rate control regimen, may add back diuretic if repeat BP assessment appropriate. aspirin 81 mg tablet,delayed release (DR/EC) 81 mg PO DAILY Qty: 90 3RF Hold Instructions: Resume on 03/05/24. Hold aspirin therapy until repeat Hgb assessment to assure stable and then also afterwards will need follow-up Hgb to assure not dropping since resumption. Discontinued ciprofloxacin HCl 500 mg tablet 500 mg PO DAILY Patient Comments: PT HAS 1 DOSE LEFT Referrals / Follow Up: Masoud Rosa MD [Primary Care Provider] - (Follow-up within 2-3 days of SNF discharge to review admission.) Joel Herr DO [Med Staff - Active Staff] - (Follow-up within 4 weeks, may see PA or COMIC WRITER in the office.) Disposition Disposition (needs filled in before D/C Order can be placed): [facility] Facility Charges/Coding Visit Charges Inpatient E&M: 55183 Disch Hosp >30min
== END 2024-02-25 11:40 | disposition skilled nursing facility (03) | DRG 378 ==
LOC: ED 09:41 → MS3 10:57
PROVIDERS: Anesthesiology; Internal Medicine Gastroenterology; Admitting Provider Family Medicine; Emergency Provider Emergency Medicine; PCP Family Medicine; Visit Provider Family Medicine
PROC: 0DJ08ZZ Inspection of Upper Intestinal Tract, Via Natural or Artificial Opening Endoscopic (ICD-10-PCS; CPT 43235; principal; 2024-02-23 06:55)
DX: K25.4 Chronic or unspecified gastric ulcer with hemorrhage (principal); D62 Acute posthemorrhagic anemia; I42.9 Cardiomyopathy, unspecified; N30.40 Irradiation cystitis without hematuria; N13.8 Other obstructive and reflux uropathy; I27.29 Other secondary pulmonary hypertension; F02.80 Dementia in other diseases classified elsewhere, unspecified severity, without behavioral disturbance, psychotic disturbance, mood disturbance, and anxiety; G20.A1 Parkinson's disease without dyskinesia, without mention of fluctuations; I12.9 Hypertensive chronic kidney disease with stage 1 through stage 4 chronic kidney disease, or unspecified chronic kidney disease; F32.A Depression, unspecified; I48.0 Paroxysmal atrial fibrillation; N18.2 Chronic kidney disease, stage 2 (mild); E87.5 Hyperkalemia; F41.9 Anxiety disorder, unspecified; E78.5 Hyperlipidemia, unspecified; T39.395A Adverse effect of other nonsteroidal anti-inflammatory drugs [NSAID], initial encounter; Y84.2 Radiological procedure and radiotherapy as the cause of abnormal reaction of the patient, or of later complication, without mention of misadventure at the time of the procedure; R33.8 Other retention of urine; N40.1 Benign prostatic hyperplasia with lower urinary tract symptoms; Z79.82 Long term (current) use of aspirin; Z79.899 Other long term (current) drug therapy; Z86.718 Personal history of other venous thrombosis and embolism; Z92.3 Personal history of irradiation
CPT/HCPCS: 36415; 80053; 82274; 83735; 84153; 85014; 85018; 85025; 85610; 85730; 86850; 86900; 86901; 86920; 87493; 88305; 88342; 93005; 94668; 97162; 97166; 97530; 97535; 97802; 99252; 99285; J7030; J7040; P9016; A4216; G0463; J2405; J3490

== ENCOUNTER 2024-02-25 12:22 | Inpatient (IN) | payer MEDICARE, SELFPAY ==
[2024-02-25 12:33] VITALS: BP 112/70; PULSE 86; RESP 14; TEMP 36.7; O2SAT 96; BMI 30.2; BMI 30.3
--- NOTE | 2024-02-25 13:46 | HP.PCM_ITS ---
HPI - General General Date of Admission: 02/25/24 Date of Service: 02/27/24 Chief Complaint: Here for rehabilitation. HPI Narrative 02/22/2024 KAREN MOYA, is a 78 Male who presents to [facility] ED with GI bleed. Bloody bowel movement with clots, atrial fibrillation not on blood thinners 2/2 falls. Parkinson Disease, walks with walker, started Celebrex 6 months ago. Hemoglobin 12.5, down from 14.1, Hemoccult positive. Pantoprazole 40mg iv bid, Dr. Herr consulted. Rocephin 1gm iv given empirically. 02/22/2024 Admit [facility]. Hold aspirin, continue Pantoprazole 40mg iv bid, consult Dr. Herr for GI bleed. Hold potassium chloride for K 5.2. 02/23/2024 Dr. Herr EGD normal esophagus, non-bleeding gastric ulcers without stigmata of bleeding. 02/23/2024 Liquid black stools, unable to tolerate colonoscopy prep. Weak, tired. PT/OT SNF. Hemoglobin 9.3, K 3.5. 02/24/2024 Hemoglobin 9.6, no black tarry stools, but patient symptomatic with anemia. Transfuse 2 units PRBC, patient dizzy with standing. PT/OT SNF. 02/25/2024 Admit to TCU with debility, here for rehabilitation, strengthening, prior to discharge home with . [facility] Medical History (Updated 02/25/24 @ 14:[address] Tima Colindres MD) Parkinsons disease Ambulatory dysfunction Wound of left foot Mitral valve insufficiency Lower extremity edema History of blistering sunburn Non-pressure chronic ulcer of left calf with fat layer exposed Obstructive uropathy Bladder stone Urethral stricture Urinary retention Chronic radiation cystitis History of prostate cancer DVT (deep venous thrombosis) Bladder outflow obstruction Hypertension Persistent atrial fibrillation Cardiomyopathy in other diseases classified elsewhere Other secondary pulmonary hypertension Home Medications ?Medication ?Instructions ?Recorded ?Last Taken ?Type carbidopa ER 50 mg-levodopa 200 mg 1 tablet PO 4X/DAY parkinsons 09/25/20 02/22/24 22:23 History tablet,extended release dorzolamide 22.3 mg-timolol 6.8 1 - 2 drp ophthalmic (eye) BID 09/25/20 02/21/24 History mg/mL eye drops glaucoma prednisolone acetate 1 % eye 1 drp LEFT EYE Q12H vision 05/13/21 08/20/24 History drops,suspension latanoprost 0.005 % eye drops 1 drp RIGHT EYE QHS eye he 09/10/21 02/21/24 History memantine 10 mg tablet 10 mg PO BID MEMORY 09/10/21 02/21/24 History aspirin 81 mg tablet,delayed 81 mg PO DAILY HEALTH #90 tabs 05/10/22 02/21/24 Rx release tamsulosin 0.4 mg capsule 0.4 mg PO DAILY prostate 03/14/23 02/21/24 History carbidopa 25 mg-levodopa 100 mg 2 tab PO 4X/DAY parkinson 08/05/23 02/22/24 History tablet albuterol sulfate 90 mcg/actuation 1 inh inhalation Q6H PRN shortness 08/08/23 02/21/24 Rx aerosol inhaler of breath or wheezing #8.5 grams inhalational spacing device (Space #1 ea 08/08/23 Unknown Rx Chamber) torsemide 20 mg tablet 20 mg PO DAILY FLUID RETETION 30 08/09/23 02/21/24 Rx days #30 tabs celecoxib 200 mg capsule (Celebrex) 200 mg PO DAILY PRN pain 09/28/23 02/21/24 History tramadol 50 mg tablet 50 mg PO TID PRN pain 09/28/23 02/21/24 History potassium chloride 20 mEq 20 meq PO BIDCM Supplement #60 tabs 11/17/23 02/21/24 Rx tablet,extended release(part/cryst) diltiazem HCl 120 mg capsule,24 See Rx Instructions .Route 02/01/24 02/21/24 Rx hr,extended release .COMPLEX heart #90 CAPSULES ascorbic acid (vitamin C) 1,000 mg 1 g PO Q6H Supplement 02/04/24 02/21/24 History tablet darolutamide 300 mg tablet (Nubeqa) 600 mg PO DAILY Prostate 02/04/24 02/21/24 History duloxetine 60 mg capsule,delayed 60 mg PO QDAY Mood 02/04/24 02/21/24 History release acetaminophen 500 mg capsule 1,000 mg PO Q6H PRN pain 02/22/24 02/21/24 History mupirocin 2 % topical ointment 1 applic topical BID Skin 02/22/24 02/21/24 History pramipexole 1 mg tablet 1 mg PO 4X/DAY Restless Leg 02/22/24 Unknown History Allergy/AdvReac Type Severity Reaction Status Date / Time lidocaine Allergy Angioedema Verified 02/22/24 08:18 peppermint Allergy Angioedema Verified 02/22/24 08:18 phenylephrine Allergy Angioedema Verified 02/22/24 08:18 doxycycline AdvReac Intermediate SUNBURN Verified 02/22/24 08:18 Family History Brother Atrial fibrillation Hypertension Mother Heart disease CAD (coronary artery disease) Myocardial infarction Hypertension Heart failure Father Heart disease Colon cancer Ruptured aortic aneurysm Surgical History History of incision and drainage (~09/2021) History of cataract extraction History of hernia repair Social History household members: spouse Smoking Status: Never smoker alcohol intake: never substance use type: does not use caffeine: Yes Type: carbonated beverages Number of servings: 1 ROS Constitutional Constitutional: Denies chills, fever(s) or weight gain ENT HEENT: Denies headache(s), nasal congestion or nasal discharge Cardiovascular Cardiovascular: Denies chest pain or palpitations Respiratory/Chest Respiratory/Chest: Denies cough, excessive phlegm production or shortness of breath with exertion Gastrointestinal Gastrointestinal: Denies abdominal pain, nausea or vomiting Genitourinary Genitourinary: Denies dysuria Musculoskeletal Musculoskeletal: Denies joint pain or joint swelling Integumentary Integumentary: Denies rash or wounds Neurologic Neurologic: Denies focal weakness, numbness or tingling Psychiatric Psychiatric: Denies anxiety, auditory hallucinations, depression, homicidal ideation or suicidal ideation Vital Signs Vital Signs Vital Signs: 02/25/24 12:33 Temperature 98.0 F Temperature Source Temporal Pulse Rate 86 Respiratory Rate 14 Blood Pressure 112/70 Blood Pressure Mean 84 Blood Pressure Source Monitor Blood Pressure Position Semi-Fowlers Blood Pressure Location Right Arm Pulse Ox 96 Oxygen Delivery Method Room Air Weight Weight: 87.589 kg Body Mass Index (BMI) 30.3 Physical Exam Const alert General Appearance: cooperative HEENT normocephalic Eyes PERRL and EOMs intact bilaterally Neck supple, no JVD and no carotid bruits Resp normal respiratory effort, normal air movement and clear to auscultation bilaterally Cardio regular rate and regular rhythm GI normal to inspection, nondistended, normoactive bowel sounds, non-tender and non-distended Extremity normal capillary refill General Extremity: Negative for edema Skin no rashes or lesions noted General Skin Exam: no breakdown Psych affect normal Appearance: appropriate Results Lab / Micro Data 02/26/24 07:18 02/26/24 07:18 Assessment & Plan Assessment/Plan (1) Debility: (2) Upper GI bleed: (3) Acute blood loss anemia: (4) Gastric ulcer: (5) Atrial fibrillation: (6) Parkinsons disease: QUALIFIERS: Dyskinesia presence: unspecified whether dyskinesia F luctuating manifestations: with fluctuating manifestations Qualified Code(s): G20.A2 - Parkinson's disease without dyskinesia, with fluctuations (7) Glaucoma: (8) Parkinson's disease dementia: (9) BPH (benign prostatic hyperplasia): (10) Hyperkalemia: PLAN: Plan 78 year old male with below past medical history hospitalized for upper gi bleed 2/2 gastric ulcer, complicated by hyperkalemia, acute blood loss anemia requiring transfusion, admitted to TCU with debility, here for rehabilitation, strengthening, prior to discharge home with . * Debility - PT/OT. * Pain - Tylenol 1000mg q6 prn pain (1-3), Tramadol 50mg tid prn pain (4-10). * Bowel - senna/colace 1 tablet bid prn, Magnesium citrate 300ml po daily prn. * Adult immunization - Administer pneumonia vaccine, covid vaccine, flu vaccine as appropriate. * DVT prophylaxis - Hold, UGIB. * Shortness of breath - Albuterol 1 puff q6 prn. * Vitamin C deficiency - Vitamin C 1000mg q6. * Parkinson Disease - Sinemet 25/100mg 2 tablets po qachs, Sinemet 50/200mg 1 tablet po qachs, Mirapex 1mg po qachs. * Prostate cancer - Nubeqa 600mg daily. * Atrial fibrillation - Diltiazem 120mg daily, no blood thinner due to falls. * Glaucoma - Dorazolamide 1-2gtt ou bid, Latanoprost 1gtt od qhs, Prednisolone 1gtt os q12. * Depression - Duloxetine 60mg daily, stable chronic pear picker use, GDR not recommended. * Parkinson Disease Dementia - Memantine 10mg bid. * Skin irritation - Mupuricin topical bid. * Hypokalemia - KCL 20meq bidcm. * BPH - Tamsulosin 0.4mg daily.
[2024-02-25] MEDS: Carbidopa/Levodopa 25/100 Tablet PO ×2 (16:11→20:30)
[2024-02-25] MEDS: CARBIDOPA/LEVODOPA CR 50/200 Tablet PO ×2 (16:11→20:35)
[2024-02-25] MEDS: Pramipexole Di-HCl 1 MG Tablet PO ×2 (16:11→20:29)
[2024-02-25] MEDS: Potassium Chloride Oral Tablet 20 MEQ PO (17:37)
[2024-02-25] MEDS: Ascorbic Acid 500 MG Tablet 1000 MG PO ×2 (17:37→23:45)
[2024-02-25] MEDS: Mupirocin Ointment 22gm Tube 1 APPLIC TOPICAL (20:23)
[2024-02-25] MEDS: Menthol/Lanolin/Calamine/Znox 113 GM Tube 1 APPLIC TOPICAL (20:28)
[2024-02-25] MEDS: Memantine Hydrochloride 10 MG Tablet PO (20:29)
[2024-02-25] MEDS: Dorzolamide HCL/Timolol 10 ml Bottle OPHTHALMIC (20:39)
[2024-02-25] MEDS: prednisoLONE eye drops (5 mL) 1 DROP OPTH.BTL 1 DRP LEFT EYE (20:41)
[2024-02-25] MEDS: Latanoprost 0.005% 1 Bottle 1 DRP RIGHT EYE (20:43)
[2024-02-25] MEDS: 0.9% Saline Lock 10 ML Syringe IV (20:48)
[2024-02-26] MEDS: Ascorbic Acid 500 MG Tablet 1000 MG PO ×4 (06:09→23:16)
[2024-02-26] MEDS: Carbidopa/Levodopa 25/100 Tablet PO ×4 (06:09→22:17)
[2024-02-26] MEDS: Pramipexole Di-HCl 1 MG Tablet PO ×4 (06:09→22:16)
[2024-02-26] MEDS: CARBIDOPA/LEVODOPA CR 50/200 Tablet PO ×4 (06:09→22:18)
[2024-02-26 07:46] LABS: Absolute Lymphocyte Count 0.58 X10^3/uL (0.83-4.51); Absolute Neutrophil Count 4.4 X10^3/uL (2.0-7.7); Basophil# 0.03 X10^3/uL; Basophil% 0.5 % (0-1); Eosinophil# 0.21 X10^3/uL; Eosinophils% 3.7 % (0-5); Hematocrit 34.8 % (40-54); Hemoglobin 11.1 g/dL (13.0-16.5); Lymphocyte # 0.58 X10^3/ul (0.83-4.51); Lymphocyte % 10.1 % (19-41); Mean Corp Hgb Conc 31.9 g/dL (32-36); Mean Corpuscular Hgb 28.6 pg (27.0-32.0); Mean Corpuscular Volume 89.7 fL (80-94); Mean Platelet Vol. 11.6 fl (6.2-12.0); Monocyte# 0.47 X10^3/uL; Monocyte% 8.2 % (0-10); NRBC Flagged by Analyzer 0.5 % (0-5); Neutrophil # 4.37 X10^3/uL (2.7-7.7); Neutrophil % 76.1 % (47-70); POSITIVE DIFFERENTIAL YES; Platelet Count 174 K/mm3 (150-450); RBC Distribution Width CV 17.4 % (11.6-14.6); RBC Distribution Width SD 56.2 fl (35.1-43.9); Red Blood Count 3.88 M/mm3 (4.6-6.2); White Blood Count 5.7 K/mm3 (4.4-11.0)
[2024-02-26 08:16] LABS: Anion Gap 4 (5-15); BUN 12 mg/dL (7-18); BUN/Creat Ratio 17.2 RATIO (10-20); Calcium,Total 8.4 mg/dL (8.5-10.1); Chloride 111 mmol/L (98-107); EST Glomerular Filtration Rate 116 mL/min (>60); Est Glom Filt Rate - Afr Amer 141 mL/min (>60); Glucose 109 mg/dL (74-106); Potassium 4.2 mmol/L (3.5-5.1); Sodium Level 143 mmol/L (136-145)
[2024-02-26] MEDS: Mupirocin Ointment 22gm Tube 1 APPLIC TOPICAL ×2 (09:07→22:09)
[2024-02-26] MEDS: DAROLUTAMIDE 300 MG 600 MG PO (09:07)
[2024-02-26] MEDS: Potassium Chloride Oral Tablet 20 MEQ PO ×2 (09:07→17:40)
[2024-02-26] MEDS: prednisoLONE eye drops (5 mL) 1 DROP OPTH.BTL 1 DRP LEFT EYE ×2 (09:07→22:16)
[2024-02-26] MEDS: dilTIAZem CD 120 MG Capsule PO (09:07)
[2024-02-26] MEDS: Dorzolamide HCL/Timolol 10 ml Bottle OPHTHALMIC ×2 (09:07→22:14)
[2024-02-26] MEDS: DULoxetine Hcl 60 MG Capsule PO (09:07)
[2024-02-26] MEDS: Memantine Hydrochloride 10 MG Tablet PO ×2 (09:08→22:16)
[2024-02-26] MEDS: Menthol/Lanolin/Calamine/Znox 113 GM Tube 1 APPLIC TOPICAL ×2 (09:08→22:13)
[2024-02-26] MEDS: 0.9% Saline Lock 10 ML Syringe IV ×2 (09:35→22:05)
[2024-02-26] MEDS: Tuberculin,Purif.prot.deriv. 50 TU/ML Vial 0.1 ML ID (11:12)
[2024-02-26 16:11] VITALS: BP 94/54; PULSE 84; RESP 18; TEMP 35.9; O2SAT 93
[2024-02-26] MEDS: Tamsulosin HCl 0.4 MG Capsule PO (17:40)
[2024-02-26] MEDS: Latanoprost 0.005% 1 Bottle 1 DRP RIGHT EYE (22:18)
--- NOTE | 2024-02-26 23:26 | NURSING ---
Random bladder scan due to dx. prostate ca, 158cc, denies need to urinate at time, denies any discomfort, uses toilet and urinal to void, continent.
[2024-02-27] MEDS: Pramipexole Di-HCl 1 MG Tablet PO ×4 (06:05→22:04)
[2024-02-27] MEDS: CARBIDOPA/LEVODOPA CR 50/200 Tablet PO ×4 (06:05→22:04)
[2024-02-27] MEDS: Ascorbic Acid 500 MG Tablet 1000 MG PO ×4 (06:05→23:02)
[2024-02-27] MEDS: Carbidopa/Levodopa 25/100 Tablet PO ×4 (06:05→22:03)
[2024-02-27 09:03] VITALS: BP 106/61; PULSE 61; RESP 18; TEMP 36.2; O2SAT 94
[2024-02-27] MEDS: DULoxetine Hcl 60 MG Capsule PO (09:05)
[2024-02-27] MEDS: Dorzolamide HCL/Timolol 10 ml Bottle OPHTHALMIC ×2 (09:06→22:10)
[2024-02-27] MEDS: Memantine Hydrochloride 10 MG Tablet PO ×2 (09:06→22:04)
[2024-02-27] MEDS: Potassium Chloride Oral Tablet 20 MEQ PO ×2 (09:06→17:03)
[2024-02-27] MEDS: dilTIAZem CD 120 MG Capsule PO (09:06)
[2024-02-27] MEDS: prednisoLONE eye drops (5 mL) 1 DROP OPTH.BTL 1 DRP LEFT EYE ×2 (09:06→22:03)
[2024-02-27] MEDS: Menthol/Lanolin/Calamine/Znox 113 GM Tube 1 APPLIC TOPICAL ×2 (09:07→22:05)
[2024-02-27] MEDS: DAROLUTAMIDE 300 MG 600 MG PO (09:07)
[2024-02-27] MEDS: Mupirocin Ointment 22gm Tube 1 APPLIC TOPICAL ×2 (09:08→22:05)
[2024-02-27] MEDS: 0.9% Saline Lock 10 ML Syringe IV (09:16)
[2024-02-27 11:10] VITALS: PULSE 64; RESP 16; O2SAT 94
--- NOTE | 2024-02-27 11:51 | NURSING ---
Frog Farmer Note; Activity Asset: Sean Donaldson is independent in his choice of daily activities with reminders. He wakes up early and goes to bed early. He watches tv and reads the paper. He uses a tablet to read the paper at home. Staff will remind him of weekly activities and respect his right to say no.
--- NOTE | 2024-02-27 13:14 | NS ---
MST score = 0
[2024-02-27] MEDS: Tamsulosin HCl 0.4 MG Capsule PO (17:03)
[2024-02-27] MEDS: Latanoprost 0.005% 1 Bottle 1 DRP RIGHT EYE (22:02)
[2024-02-28] MEDS: Pramipexole Di-HCl 1 MG Tablet PO ×4 (06:07→21:18)
[2024-02-28] MEDS: Ascorbic Acid 500 MG Tablet 1000 MG PO ×4 (06:07→23:28)
[2024-02-28] MEDS: Carbidopa/Levodopa 25/100 Tablet PO ×4 (06:07→21:17)
[2024-02-28] MEDS: CARBIDOPA/LEVODOPA CR 50/200 Tablet PO ×4 (06:08→21:18)
[2024-02-28] MEDS: Potassium Chloride Oral Tablet 20 MEQ PO ×2 (09:01→17:44)
[2024-02-28] MEDS: DAROLUTAMIDE 300 MG 600 MG PO (09:01)
[2024-02-28] MEDS: Memantine Hydrochloride 10 MG Tablet PO ×2 (09:01→21:19)
[2024-02-28] MEDS: Mupirocin Ointment 22gm Tube 1 APPLIC TOPICAL ×2 (09:01→21:13)
[2024-02-28] MEDS: DULoxetine Hcl 60 MG Capsule PO (09:01)
[2024-02-28] MEDS: Dorzolamide HCL/Timolol 10 ml Bottle OPHTHALMIC ×2 (09:01→21:15)
[2024-02-28] MEDS: prednisoLONE eye drops (5 mL) 1 DROP OPTH.BTL 1 DRP LEFT EYE ×2 (09:02→21:19)
[2024-02-28] MEDS: Menthol/Lanolin/Calamine/Znox 113 GM Tube 1 APPLIC TOPICAL ×2 (09:09→21:14)
[2024-02-28 11:13] VITALS: BP 113/74; PULSE 80
[2024-02-28] MEDS: dilTIAZem CD 120 MG Capsule PO (11:17)
[2024-02-28] MEDS: 0.9% Saline Lock 10 ML Syringe IV ×2 (11:20→21:16)
[2024-02-28 12:22] VITALS: BMI 30.2
[2024-02-28 14:30] VITALS: BP 96/58; PULSE 94; RESP 14; TEMP 36.4; O2SAT 96
--- NOTE | 2024-02-28 15:02 | PCM.PN.DRR ---
Documented by User: Cholo Perera 02/28/24 15:41 TCU RX Drug Regimen Review Subjective/Objective Subjective/Objective: Subjective: TCU admission note. 78 year old male with below past medical history hospitalized for upper gi bleed 2/2 gastric ulcer, complicated by hyperkalemia, acute blood loss anemia requiring transfusion, admitted to TCU with debility, here for rehabilitation, strengthening, prior to discharge home with . Objective: Allergies lidocaine Allergy (Verified 02/22/24 08:18) Angioedema peppermint Allergy (Verified 02/22/24 08:18) Angioedema phenylephrine Allergy (Verified 02/22/24 08:18) Angioedema doxycycline Adverse Reaction (Intermediate, Verified 02/22/24 08:18) SUNBURN Current Medications Generic Name Dose Route Start Last Admin Trade Name Freq PRN Reason Stop Dose Admin Acetaminophen 1,000 mg 02/25/24 14:12 Acetaminophen 500 Mg Tablet PO Q6H PRN Pain Score 1-3 Albuterol Sulfate 1 puff 02/25/24 12:50 Albuterol Ih (6.7 Gm) 1 Puff Inhaler INHALATION Q6H PRN shortness of breath or wheezing Ascorbic Acid 1,000 mg 02/25/24 18:00 02/28/24 11:55 Ascorbic Acid 500 Mg Tablet PO 1,000 mg Q6 FIDE Administration Calamine/Phenol 1 applic 02/25/24 22:00 02/28/24 09:09 Menthol/Lanolin/Calamine/Znox 113 Gm Tube TOPICAL 1 applic BID FIDE Administration Protocol Carbidopa/Levodopa 1 tablet 02/25/24 16:00 02/28/24 11:15 Carbidopa/Levodopa Cr 50/200 Tablet PO 1 tablet ACHS FIDE Administration Carbidopa/Levodopa 2 tablet 02/25/24 16:00 02/28/24 11:15 Carbidopa/Levodopa 25/100 Tablet PO 2 tablet ACHS FIDE Administration Diltiazem HCl 120 mg 02/26/24 10:00 02/28/24 11:17 Diltiazem Cd 120 Mg Capsule PO 120 mg DAILY FIDE Administration Dorzolamide/Timolol 1 - 2 drp 02/25/24 22:00 02/28/24 09:01 Dorzolamide Hcl/Timolol 10 Ml Bottle OPHTHALMIC 1 drp BID FIDE Administration Duloxetine HCl 60 mg 02/26/24 10:00 02/28/24 09:01 Duloxetine Hcl 60 Mg Capsule PO 60 mg DAILY FIDE Administration Latanoprost 1 drp 02/25/24 22:00 02/27/24 22:02 Latanoprost 0.005% 1 Bottle RIGHT EYE 1 drp QHS FIDE Administration Magnesium Citrate 300 ml 02/25/24 14:11 Magnesium Citrate 300 Ml PO DAILY PRN Constipation Memantine 10 mg 02/25/24 22:00 02/28/24 09:01 Memantine Hydrochloride 10 Mg Tablet PO 10 mg BID FIDE Administration Mupirocin 1 applic 02/25/24 22:00 02/28/24 09:01 Mupirocin Ointment 22gm Tube TOPICAL 1 applic BID FIDE Administration Protocol Potassium Chloride 20 meq 02/25/24 17:00 02/28/24 09:01 Potassium Chloride Oral Tablet 20 Meq PO 20 meq BIDCM FIDE Administration Pramipexole Dihydrochloride 1 mg 02/25/24 16:00 02/28/24 11:15 Pramipexole Di-Hcl 1 Mg Tablet PO 1 mg ACHS FIDE Administration Prednisolone Acetate 1 drp 02/25/24 22:00 02/28/24 09:02 Prednisolone Eye Drops (5 Ml) 1 Drop Opth.Btl LEFT EYE 1 drp Q12 FIDE Administration Senna/Docusate Sodium 1 tablet 02/25/24 14:11 Senna/Docusate Sodium 1 Tablet PO BID PRN Constipation Sodium Chloride 10 - 40 ml 02/25/24 14:08 02/28/24 11:20 0.9% Saline Lock 10 Ml Syringe IV 10 ml UD PRN Administration SALINE FLUSH Sodium Chloride 10 - 40 ml 02/25/24 14:14 0.9% Saline Lock 10 Ml Syringe IV UD PRN SALINE FLUSH Tamsulosin HCl 0.4 mg 02/26/24 17:30 02/27/24 17:03 Tamsulosin Hcl 0.4 Mg Capsule PO 0.4 mg DAILY@1730 FIDE Administration Tramadol HCl 50 mg 02/25/24 14:12 Tramadol 50 Mg Tablet PO TID PRN Pain Score 4-10 or Pre PT/OT Tuberculin PPD 0.1 ml 03/04/24 10:00 Tuberculin,Purif.Prot.Deriv. 50 Tu/Ml Vial ID 03/04/24 10:01 X1 ONE Problem List Hyperkalemia (Acute) BPH (benign prostatic hyperplasia) (Acute) Parkinson's disease dementia (Acute) Glaucoma (Acute) Parkinsons disease (Acute) Gastric ulcer (Acute) Acute blood loss anemia (Acute) Upper GI bleed (Acute) Debility (Acute) Vital Signs Temp Pulse Resp BP Pulse Ox O2 Del Method 97.5 F L 94 14 96/58 L 96 Room Air 02/28/24 14:30 02/28/24 14:30 02/28/24 14:30 02/28/24 14:30 02/28/24 14:30 02/28/24 14:30 Oxygen Delivery Method Room Air Weight: 87.317 kg Body Mass Index (BMI) 30.2 Sodium 143 mmol/L (136-145) 02/26/24 07:18 Potassium 4.2 mmol/L (3.5-5.1) 02/26/24 07:18 Chloride 111 mmol/L (98-107) H 02/26/24 07:18 Carbon Dioxide 28.0 mmol/L (21.0-32.0) 02/26/24 07:18 Anion Gap 4 (5-15) L 02/26/24 07:18 BUN 12 mg/dL (7-18) 02/26/24 07:18 Creatinine 0.70 mg/dL (0.70-1.30) 02/26/24 07:18 Est GFR (MDRD) Af Amer 141 mL/min (>60) 02/26/24 07:18 Est GFR (MDRD) Non-Af 116 mL/min (>60) 02/26/24 07:18 BUN/Creatinine Ratio 17.2 RATIO (10-20) 02/26/24 07:18 Glucose 109 mg/dL (74-106) H 02/26/24 07:18 Assessment/Plan: 1. Pain: acetaminophen 1000 mg PO Q6H PRN pain (1-3), tramadol 50 mg PO TID PRN pain (4-10). The patient has not required any PRN doses of acetaminophen or tramadol so far this admission. Please continue to monitor for PRN medication usage, pain levels, LFTs (AST/ALT = 8/<6 U/L on 02/25/24), renal function (serum creatinine = 0.70 mg/dL with creatinine clearance ~ 79 mL/min on 02/26/24), for respiratory depression, for constipation, dizziness, seizures, and syncope/ataxia/falls. 2. Bowel: senna/docusate 1 tablet PO BID PRN constipation, magnesium citrate 300 mL PO daily PRN constipation. The patient has not required doses of either magnesium citrate or senna/docusate so far this admission and the patient's last documented bowel movement was on 02/26/24. Please continue to monitor for bowel movements, PRN medication usage, for constipation and diarrhea. 3. Parkinson's disease/Parkinson's disease dementia: carbidopa/levodopa 50/200 CR 1 tablet PO TIDAC, carbidopa/levodopa 25/100 mg 2 tablets PO 4x/day, memantine 10 mg PO BID, pramipexole 1 mg PO ACHS. Please continue to monitor for parkinson's symptoms, for hypotension, constipation, dizziness, dyskinesias, confusion, headache, ataxia, agitation, hallucinations, nausea/vomiting, asthenia, insomnia and edema. 4. Prostate cancer: darolutamide 600 mg PO daily. Please continue to monitor white blood cell count (WBC = 5.7 K/mm3 on 02/26/24), LFTs (AST/ALT = 8/<6 U/L on 02/25/24), asthenia, fatigue, and limb pain. 5. Glaucoma: dorzolamide/timolol 1-2 drops in each eye BID, latanoprost 1 drop in both eyes QHS, prednisolone 1 drop BID in left eye. Please continue to monitor for eye health, dysgeusia, burning in eyes, hyperemia, itching of the eyes, and bitter taste. 6. BPH: tamsulosin 0.4 mg PO daily. Please continue to monitor for s/s of orthostasis, and for urinary retention. 7. Hypokalemia: potassium 20 mEq PO BID with meals. Please continue to monitor potassium levels (K = 4.2 mmol/L on 02/26/24), and for GI distress with potassium administration. 8. Atrial fibrillation: diltiazem CD 120 mg PO daily. Please continue to monitor for palpitations, heart rates (recent range = 61-94 beats/min), for constipation and for s/s of stroke. 9. Shortness of breath: albuterol 1 puff Q6H PRN shortness of breath. The patient has not required any PRN doses of albuterol so far this admission. Please continue to monitor for shortness of breath, for PRN medication usage, and for palpitations with albuterol administration. 10. Vitamin C deficiency: ascorbic acid 1000 mg PO Q6H. Please continue to monitor for s/s of vitamin C deficiency as well as for kidney stones. 11. Skin irritation: mupirocin 1 application topically BID, calmoseptine 1 application topically BID. Please continue to monitor for skin irritation. Assessment/Plan for indications treated with psychotropic medications: 1. Depression: duloxetine 60 mg PO daily. Please see provider note regarding stable chronic long-term therapy GDR not recommended. Please continue to monitor for s/s of depression, for SI, for s/s of serotonin syndrome, sodium levels (Na = 143 mmol/L on 02/26/24), LFTs (AST/ALT = 8/<6 U/L on 02/25/24), and for nausea. Medical chart and medication regimen reviewed. The following medication irregularities or issues were identified: NA Date Date of Note:: 02/28/24 Documented by User: Dr. Tima Colindres MD 02/28/24 17:21 TCU RX Drug Regimen Review Provider Comments Provider responsibility Provider Comments to Recommendations by Pharmacy: Agree
--- NOTE | 2024-02-28 16:39 | CASEMGMT ---
Social Work SW met with patient to complete initial assessment. Introduced self and role. at beside. Verified/updated contacts. Patient confirmed code status as DNR-CCA, no intubation. SW requested provide copies of pts advanced directives. Educated to [facility] with [facility]D 02/27 and continued stay is not guaranteed with each review. Pt's goal is to return home with at [facility]. denies any services at time of DC as this is not her first rodeo. SW will continue to follow for DC planning. Tanisha Mccann, EQUITY STRUCTURER DIGITAL TECHNICIAN
[2024-02-28] MEDS: Tamsulosin HCl 0.4 MG Capsule PO (17:44)
[2024-02-28] MEDS: Latanoprost 0.005% 1 Bottle 1 DRP RIGHT EYE (21:20)
[2024-02-29] MEDS: Senna/Docusate Sodium 1 Tablet PO (06:21)
[2024-02-29] MEDS: CARBIDOPA/LEVODOPA CR 50/200 Tablet PO ×4 (06:22→22:46)
[2024-02-29] MEDS: Pramipexole Di-HCl 1 MG Tablet PO ×4 (06:22→22:44)
[2024-02-29] MEDS: Ascorbic Acid 500 MG Tablet 1000 MG PO ×4 (06:22→22:52)
[2024-02-29] MEDS: Carbidopa/Levodopa 25/100 Tablet PO ×4 (06:22→22:46)
[2024-02-29] MEDS: DAROLUTAMIDE 300 MG 600 MG PO (08:47)
[2024-02-29] MEDS: Mupirocin Ointment 22gm Tube 1 APPLIC TOPICAL ×2 (08:47→22:39)
[2024-02-29] MEDS: prednisoLONE eye drops (5 mL) 1 DROP OPTH.BTL 1 DRP LEFT EYE ×2 (08:47→22:45)
[2024-02-29] MEDS: Potassium Chloride Oral Tablet 20 MEQ PO ×2 (08:48→17:53)
[2024-02-29] MEDS: Memantine Hydrochloride 10 MG Tablet PO ×2 (08:48→22:45)
[2024-02-29] MEDS: DULoxetine Hcl 60 MG Capsule PO (08:48)
[2024-02-29] MEDS: Dorzolamide HCL/Timolol 10 ml Bottle OPHTHALMIC ×2 (08:48→22:43)
[2024-02-29] MEDS: Menthol/Lanolin/Calamine/Znox 113 GM Tube 1 APPLIC TOPICAL ×2 (08:57→22:40)
--- NOTE | 2024-02-29 10:39 | CASEMGMT ---
Social Work IDT met with patient and for care plan meeting. Discussed patient's progress in PT/OT/ST/SN. Educated to [employer] insurance with NRD 03/06, EDC 03/09. Pt's goal is to return home with . SW to coordinate services at time of DC. SW educated and provided resources for medical alert, Parkinson's classes and support groups and handrails and ramps. SW will continue to follow for DC planning. Tanisha Mccann, LUIS RODRIGUEZW
[2024-02-29 11:43] VITALS: BP 88/59; PULSE 89
[2024-02-29 14:49] VITALS: BP 101/66; PULSE 100; RESP 19; TEMP 35.8; O2SAT 98
[2024-02-29] MEDS: Tamsulosin HCl 0.4 MG Capsule PO (17:53)
[2024-02-29 20:00] VITALS: PULSE 88; RESP 16; O2SAT 95
[2024-02-29] MEDS: Latanoprost 0.005% 1 Bottle 1 DRP RIGHT EYE (22:47)
[2024-03-01] MEDS: Ascorbic Acid 500 MG Tablet 1000 MG PO ×3 (06:21→16:53)
[2024-03-01] MEDS: Pramipexole Di-HCl 1 MG Tablet PO ×4 (06:21→21:14)
[2024-03-01] MEDS: CARBIDOPA/LEVODOPA CR 50/200 Tablet PO ×4 (06:21→21:14)
[2024-03-01] MEDS: Carbidopa/Levodopa 25/100 Tablet PO ×4 (06:21→21:14)
[2024-03-01 09:45] VITALS: BP 112/68; PULSE 90; RESP 16; TEMP 36.6; O2SAT 94
[2024-03-01] MEDS: Potassium Chloride Oral Tablet 20 MEQ PO ×2 (09:47→16:53)
[2024-03-01] MEDS: dilTIAZem CD 120 MG Capsule PO (09:47)
[2024-03-01] MEDS: DAROLUTAMIDE 300 MG 600 MG PO (09:48)
[2024-03-01] MEDS: DULoxetine Hcl 60 MG Capsule PO (09:48)
[2024-03-01] MEDS: Memantine Hydrochloride 10 MG Tablet PO ×2 (09:48→21:15)
[2024-03-01] MEDS: prednisoLONE eye drops (5 mL) 1 DROP OPTH.BTL 1 DRP LEFT EYE ×2 (09:48→21:13)
[2024-03-01] MEDS: Dorzolamide HCL/Timolol 10 ml Bottle OPHTHALMIC ×2 (09:48→21:19)
[2024-03-01] MEDS: Mupirocin Ointment 22gm Tube 1 APPLIC TOPICAL ×2 (09:49→21:12)
[2024-03-01] MEDS: Menthol/Lanolin/Calamine/Znox 113 GM Tube 1 APPLIC TOPICAL ×2 (09:50→21:12)
--- NOTE | 2024-03-01 15:16 | CASEMGMT ---
Social Work SW conducted BIMS () and PHQ-2 () completed for MDS assessment. Tanisha Mccann MSW CAT [employer]OOKER
[2024-03-01] MEDS: Tamsulosin HCl 0.4 MG Capsule PO (16:53)
[2024-03-01 18:17] VITALS: PULSE 82; RESP 16; O2SAT 94
[2024-03-01] MEDS: Latanoprost 0.005% 1 Bottle 1 DRP RIGHT EYE (21:13)
[2024-03-02] MEDS: Ascorbic Acid 500 MG Tablet 1000 MG PO ×5 (00:13→23:04)
[2024-03-02] MEDS: CARBIDOPA/LEVODOPA CR 50/200 Tablet PO ×4 (06:18→22:39)
[2024-03-02] MEDS: Pramipexole Di-HCl 1 MG Tablet PO ×4 (06:18→22:40)
[2024-03-02] MEDS: Carbidopa/Levodopa 25/100 Tablet PO ×4 (06:18→22:38)
[2024-03-02 09:27] VITALS: BP 83/53; PULSE 71; RESP 16; TEMP 36.7; O2SAT 97
[2024-03-02] MEDS: Potassium Chloride Oral Tablet 20 MEQ PO ×2 (09:31→16:51)
[2024-03-02] MEDS: DAROLUTAMIDE 300 MG 600 MG PO (09:32)
[2024-03-02] MEDS: DULoxetine Hcl 60 MG Capsule PO (09:32)
[2024-03-02] MEDS: Memantine Hydrochloride 10 MG Tablet PO ×2 (09:32→22:40)
[2024-03-02] MEDS: Dorzolamide HCL/Timolol 10 ml Bottle OPHTHALMIC ×2 (09:33→22:37)
[2024-03-02] MEDS: prednisoLONE eye drops (5 mL) 1 DROP OPTH.BTL 1 DRP LEFT EYE ×2 (09:33→22:41)
[2024-03-02] MEDS: Mupirocin Ointment 22gm Tube 1 APPLIC TOPICAL ×2 (09:33→22:36)
[2024-03-02] MEDS: Menthol/Lanolin/Calamine/Znox 113 GM Tube 1 APPLIC TOPICAL ×2 (09:34→22:36)
[2024-03-02 10:55] VITALS: BP 126/79
[2024-03-02] MEDS: dilTIAZem CD 120 MG Capsule PO (10:57)
--- NOTE | 2024-03-02 11:44 | MDS.RN ---
Pain interview for mds completed.
[2024-03-02 15:15] VITALS: RESP 16
[2024-03-02] MEDS: Senna/Docusate Sodium 1 Tablet PO ×2 (15:22→22:58)
[2024-03-02] MEDS: Tamsulosin HCl 0.4 MG Capsule PO (16:51)
[2024-03-02 20:10] VITALS: PULSE 84; O2SAT 93
[2024-03-02] MEDS: Latanoprost 0.005% 1 Bottle 1 DRP RIGHT EYE (22:42)
[2024-03-03] MEDS: Magnesium Citrate 300 ML PO (06:23)
[2024-03-03] MEDS: Pramipexole Di-HCl 1 MG Tablet PO ×4 (06:24→22:59)
[2024-03-03] MEDS: Carbidopa/Levodopa 25/100 Tablet PO ×4 (06:25→23:01)
[2024-03-03] MEDS: CARBIDOPA/LEVODOPA CR 50/200 Tablet PO ×4 (06:25→23:02)
[2024-03-03] MEDS: Ascorbic Acid 500 MG Tablet 1000 MG PO ×4 (06:25→23:03)
[2024-03-03] MEDS: dilTIAZem CD 120 MG Capsule PO (08:53)
[2024-03-03] MEDS: Potassium Chloride Oral Tablet 20 MEQ PO ×2 (08:53→16:40)
[2024-03-03] MEDS: Mupirocin Ointment 22gm Tube 1 APPLIC TOPICAL ×2 (08:53→22:56)
[2024-03-03] MEDS: Menthol/Lanolin/Calamine/Znox 113 GM Tube 1 APPLIC TOPICAL ×2 (08:54→22:56)
[2024-03-03] MEDS: DULoxetine Hcl 60 MG Capsule PO (08:54)
[2024-03-03] MEDS: Memantine Hydrochloride 10 MG Tablet PO ×2 (08:54→22:59)
[2024-03-03] MEDS: DAROLUTAMIDE 300 MG 600 MG PO (08:54)
[2024-03-03] MEDS: Dorzolamide HCL/Timolol 10 ml Bottle OPHTHALMIC ×2 (08:54→22:57)
[2024-03-03] MEDS: prednisoLONE eye drops (5 mL) 1 DROP OPTH.BTL 1 DRP LEFT EYE ×2 (08:54→22:59)
[2024-03-03 10:33] VITALS: BP 107/64; PULSE 84; RESP 16; TEMP 36.2; O2SAT 99
[2024-03-03] MEDS: Tamsulosin HCl 0.4 MG Capsule PO (16:41)
[2024-03-03 20:00] VITALS: PULSE 86; RESP 16; O2SAT 97
[2024-03-03] MEDS: Senna/Docusate Sodium 1 Tablet PO (23:00)
[2024-03-03] MEDS: Latanoprost 0.005% 1 Bottle 1 DRP RIGHT EYE (23:02)
[2024-03-04 04:51] VITALS: PULSE 88; RESP 16; O2SAT 97
[2024-03-04] MEDS: Ascorbic Acid 500 MG Tablet 1000 MG PO ×4 (06:04→23:19)
[2024-03-04] MEDS: CARBIDOPA/LEVODOPA CR 50/200 Tablet PO ×4 (06:05→20:17)
[2024-03-04] MEDS: Carbidopa/Levodopa 25/100 Tablet PO ×4 (06:05→20:14)
[2024-03-04] MEDS: Pramipexole Di-HCl 1 MG Tablet PO ×4 (06:05→20:15)
[2024-03-04] MEDS: Dorzolamide HCL/Timolol 10 ml Bottle OPHTHALMIC ×2 (07:42→20:13)
[2024-03-04] MEDS: Mupirocin Ointment 22gm Tube 1 APPLIC TOPICAL ×2 (07:43→20:18)
[2024-03-04] MEDS: prednisoLONE eye drops (5 mL) 1 DROP OPTH.BTL 1 DRP LEFT EYE ×2 (07:46→20:14)
[2024-03-04] MEDS: Menthol/Lanolin/Calamine/Znox 113 GM Tube 1 APPLIC TOPICAL ×2 (07:47→20:18)
[2024-03-04] MEDS: DAROLUTAMIDE 300 MG 600 MG PO (07:47)
[2024-03-04] MEDS: dilTIAZem CD 120 MG Capsule PO (07:52)
[2024-03-04] MEDS: Potassium Chloride Oral Tablet 20 MEQ PO ×2 (07:52→16:53)
[2024-03-04] MEDS: Memantine Hydrochloride 10 MG Tablet PO ×2 (07:52→20:17)
[2024-03-04] MEDS: DULoxetine Hcl 60 MG Capsule PO (07:52)
[2024-03-04] MEDS: Senna/Docusate Sodium 1 Tablet PO ×2 (07:52→20:16)
[2024-03-04] MEDS: Tuberculin,Purif.prot.deriv. 50 TU/ML Vial 0.1 ML ID (10:29)
[2024-03-04 12:23] VITALS: BP 124/78; PULSE 83; RESP 16; TEMP 36.5; O2SAT 94
[2024-03-04] MEDS: Tamsulosin HCl 0.4 MG Capsule PO (16:53)
[2024-03-04] MEDS: Latanoprost 0.005% 1 Bottle 1 DRP RIGHT EYE (20:17)
[2024-03-05] MEDS: Carbidopa/Levodopa 25/100 Tablet PO ×4 (06:33→21:27)
[2024-03-05] MEDS: Pramipexole Di-HCl 1 MG Tablet PO ×4 (06:33→21:27)
[2024-03-05] MEDS: Ascorbic Acid 500 MG Tablet 1000 MG PO ×4 (06:33→23:36)
[2024-03-05] MEDS: CARBIDOPA/LEVODOPA CR 50/200 Tablet PO ×4 (06:33→21:27)
[2024-03-05 07:13] LABS: Absolute Lymphocyte Count 0.79 X10^3/uL (0.83-4.51); Absolute Neutrophil Count 4.6 X10^3/uL (2.0-7.7); Basophil# 0.02 X10^3/uL; Basophil% 0.3 % (0-1); Eosinophil# 0.34 X10^3/uL; Eosinophils% 5.4 % (0-5); Hematocrit 36.4 % (40-54); Hemoglobin 11.2 g/dL (13.0-16.5); Lymphocyte # 0.79 X10^3/ul (0.83-4.51); Lymphocyte % 12.5 % (19-41); Mean Corp Hgb Conc 30.8 g/dL (32-36); Mean Platelet Vol. 9.8 fl (6.2-12.0); Monocyte# 0.48 X10^3/uL; Monocyte% 7.6 % (0-10); NRBC Flagged by Analyzer 0 % (0-5); Neutrophil # 4.58 X10^3/uL (2.7-7.7); Neutrophil % 72.8 % (47-70); Platelet Count 236 K/mm3 (150-450); RBC Distribution Width CV 16.3 % (11.6-14.6); RBC Distribution Width SD 54.4 fl (35.1-43.9); White Blood Count 6.3 K/mm3 (4.4-11.0)
[2024-03-05 07:23] LABS: Anion Gap 5 (5-15); BUN 13 mg/dL (7-18); BUN/Creat Ratio 17.2 RATIO (10-20); Calcium,Total 8.6 mg/dL (8.5-10.1); Chloride 108 mmol/L (98-107); Creatinine, Serum 0.76 mg/dL (0.70-1.30); EST Glomerular Filtration Rate 106 mL/min (>60); Est Glom Filt Rate - Afr Amer 128 mL/min (>60); Estimated Creatinine Clearance 78.99 ml/min; Glucose 96 mg/dL (74-106); Potassium 4.4 mmol/L (3.5-5.1); Sodium Level 139 mmol/L (136-145)
[2024-03-05] MEDS: prednisoLONE eye drops (5 mL) 1 DROP OPTH.BTL 1 DRP LEFT EYE ×2 (09:26→21:22)
[2024-03-05] MEDS: DAROLUTAMIDE 300 MG 600 MG PO (09:26)
[2024-03-05] MEDS: Potassium Chloride Oral Tablet 20 MEQ PO ×2 (09:26→17:57)
[2024-03-05] MEDS: Dorzolamide HCL/Timolol 10 ml Bottle OPHTHALMIC ×2 (09:26→21:24)
[2024-03-05] MEDS: Senna/Docusate Sodium 1 Tablet PO ×2 (09:26→21:27)
[2024-03-05] MEDS: Mupirocin Ointment 22gm Tube 1 APPLIC TOPICAL ×2 (09:26→21:27)
[2024-03-05] MEDS: Memantine Hydrochloride 10 MG Tablet PO ×2 (09:27→21:27)
[2024-03-05] MEDS: DULoxetine Hcl 60 MG Capsule PO (09:27)
[2024-03-05] MEDS: dilTIAZem CD 120 MG Capsule PO (09:27)
[2024-03-05] MEDS: Menthol/Lanolin/Calamine/Znox 113 GM Tube 1 APPLIC TOPICAL ×2 (09:33→21:27)
[2024-03-05 09:34] VITALS: BP 105/64; PULSE 88
[2024-03-05 15:32] VITALS: BP 120/71; PULSE 82; RESP 16; TEMP 36.3; O2SAT 94
[2024-03-05] MEDS: Tamsulosin HCl 0.4 MG Capsule PO (17:57)
[2024-03-05] MEDS: Latanoprost 0.005% 1 Bottle 1 DRP RIGHT EYE (21:26)
[2024-03-05 21:37] VITALS: PULSE 92; RESP 14; O2SAT 94
[2024-03-06] MEDS: Ascorbic Acid 500 MG Tablet 1000 MG PO ×3 (06:44→16:42)
[2024-03-06] MEDS: Pramipexole Di-HCl 1 MG Tablet PO ×4 (06:45→21:43)
[2024-03-06] MEDS: Carbidopa/Levodopa 25/100 Tablet PO ×4 (06:45→21:45)
[2024-03-06] MEDS: CARBIDOPA/LEVODOPA CR 50/200 Tablet PO ×4 (06:45→21:45)
[2024-03-06] MEDS: Mupirocin Ointment 22gm Tube 1 APPLIC TOPICAL ×2 (08:35→21:42)
[2024-03-06] MEDS: Menthol/Lanolin/Calamine/Znox 113 GM Tube 1 APPLIC TOPICAL ×2 (08:35→21:43)
[2024-03-06] MEDS: Potassium Chloride Oral Tablet 20 MEQ PO ×2 (08:35→16:42)
[2024-03-06] MEDS: Memantine Hydrochloride 10 MG Tablet PO ×2 (08:36→21:44)
[2024-03-06] MEDS: DULoxetine Hcl 60 MG Capsule PO (08:36)
[2024-03-06] MEDS: Dorzolamide HCL/Timolol 10 ml Bottle OPHTHALMIC ×2 (08:36→21:43)
[2024-03-06] MEDS: dilTIAZem CD 120 MG Capsule PO (08:36)
[2024-03-06] MEDS: Senna/Docusate Sodium 1 Tablet PO ×2 (08:36→21:48)
[2024-03-06] MEDS: DAROLUTAMIDE 300 MG 600 MG PO (08:36)
[2024-03-06] MEDS: prednisoLONE eye drops (5 mL) 1 DROP OPTH.BTL 1 DRP LEFT EYE ×2 (08:37→21:44)
[2024-03-06] MEDS: Magnesium Citrate 300 ML PO (08:44)
[2024-03-06 09:15] VITALS: BP 100/59; PULSE 93; RESP 16; TEMP 36.4; O2SAT 95
[2024-03-06 12:00] VITALS: BMI 30.1
[2024-03-06] MEDS: Tamsulosin HCl 0.4 MG Capsule PO (16:42)
--- NOTE | 2024-03-06 17:11 | CASEMGMT ---
Social Work Insurance issued LCD 03/08, DC 03/09. SW spoke with pt and at bedside to notify of DC date, explained appeal rights. Pt and both agreeable to DC home. SW confirmed pt/ still do not want any services coordinated at DC. Pt to follow [facility]. to transport home. SW educated to using PCP for skilled HHC order if both change their minds. Plan: DC home with 03/09, no needs Tanisha Mccann, FURNACE INSTALLER [employer] CONSULTANT
--- NOTE | 2024-03-06 20:48 | DS.PCM_ITS ---
Providers Date of Admission: 02/25/24 Primary Care Physician: Dr. Masoud Rosa MD Reason For Visit: GI BLEED, ASLA Diagnosis Discharge Diagnosis (1) Debility: Status: Acute Code(s): R53.81 - Other malaise (2) Upper GI bleed: Status: Acute Code(s): K92.2 - Gastrointestinal hemorrhage, unspecified (3) Acute blood loss anemia: Status: Acute Code(s): D62 - Acute posthemorrhagic anemia (4) Gastric ulcer: Status: Acute Code(s): K25.9 - Gastric ulcer, unspecified as acute or chronic, without hemorrhage or perforation (5) Atrial fibrillation: Status: Inactive Code(s): I48.91 - Unspecified atrial fibrillation (6) Parkinsons disease: Status: Acute Code(s): G20 - Parkinson's disease Qualifiers: Dyskinesia presence: unspecified whether dyskinesia Fluctuating manifestations: with fluctuating manifestations Qualified Code(s): G20.A2 - Parkinson's disease without dyskinesia, with fluctuations (7) Glaucoma: Status: Acute Code(s): H40.9 - Unspecified glaucoma (8) Parkinson's disease dementia: Status: Acute Code(s): G20.A1 - Parkinson's disease without dyskinesia, without mention of fluctuations; F02.80 - Dementia in other diseases classified elsewhere, unspecified severity, without behavioral disturbance, psychotic disturbance, mood disturbance, and anxiety (9) BPH (benign prostatic hyperplasia): Status: Acute Code(s): N40.0 - Benign prostatic hyperplasia without lower urinary tract symptoms (10) Hyperkalemia: Status: Acute Code(s): E87.5 - Hyperkalemia Plan 78 year old male with below past medical history hospitalized for upper gi bleed 2/2 gastric ulcer, complicated by hyperkalemia, acute blood loss anemia requiring transfusion, admitted to TCU with debility, here for rehabilitation, strengthening, prior to discharge home with . * Debility - PT/OT. * Pain - Tylenol 1000mg q6 prn pain (1-3), Tramadol 50mg tid prn pain (4-10). * Bowel - senna/colace 1 tablet bid prn, Magnesium citrate 300ml po daily prn. * Adult immunization - Administer pneumonia vaccine, covid vaccine, flu vaccine as appropriate. * DVT prophylaxis - Hold, UGIB. * Shortness of breath - Albuterol 1 puff q6 prn. * Vitamin C deficiency - Vitamin C 1000mg q6. * Parkinson Disease - Sinemet 25/100mg 2 tablets po qachs, Sinemet 50/200mg 1 tablet po qachs, Mirapex 1mg po qachs. * Prostate cancer - Nubeqa 600mg daily. * Atrial fibrillation - Diltiazem 120mg daily, no blood thinner due to falls. * Glaucoma - Dorazolamide 1-2gtt ou bid, Latanoprost 1gtt od qhs, Prednisolone 1gtt os q12. 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 * Parkinson Disease Dementia - Memantine 10mg bid. * Skin irritation - Mupuricin topical bid. * Hypokalemia - KCL 20meq bidcm. * BPH - Tamsulosin 0.4mg daily. Medications at Discharge Home Medications carbidopa ER 50 mg-levodopa 200 mg tablet,extended release 1 tablet PO 4X/DAY parkinsons 09/25/20 dorzolamide 22.3 mg-timolol 6.8 mg/mL eye drops 1 - 2 drp ophthalmic (eye) BID glaucoma 09/25/20 prednisolone acetate 1 % eye drops,suspension 1 drp LEFT EYE Q12H vision 11/13/20 latanoprost 0.005 % eye drops 1 drp RIGHT EYE QHS eye he 09/10/21 memantine 10 mg tablet 10 mg PO BID MEMORY 09/10/21 aspirin 81 mg tablet,delayed release 81 mg PO DAILY HEALTH #90 tabs 05/10/22 tamsulosin 0.4 mg capsule 0.4 mg PO DAILY prostate 03/14/23 carbidopa 25 mg-levodopa 100 mg tablet 2 tab PO 4X/DAY parkinson 08/05/23 inhalational spacing device (Space Chamber) #1 ea 08/08/23 potassium chloride 20 mEq tablet,extended release(part/cryst) 20 meq PO BIDCM Supplement #60 tabs 11/17/23 diltiazem HCl 120 mg capsule,24 hr,extended release See Rx Instructions .Route .COMPLEX heart #90 CAPSULES 02/01/24 ascorbic acid (vitamin C) 1,000 mg tablet 1 g PO Q6H Supplement 02/04/24 darolutamide 300 mg tablet (Nubeqa) 600 mg PO DAILY Prostate 02/04/24 duloxetine 60 mg capsule,delayed release 60 mg PO QDAY Mood 02/04/24 mupirocin 2 % topical ointment 1 applic topical BID Skin 02/22/24 pramipexole 1 mg tablet 1 mg PO 4X/DAY Restless Leg 02/22/24 pantoprazole 40 mg tablet,delayed release 40 mg PO BID 30 days #60 tabs 03/06/24 Hospital Course Operations None Procedures EGD Summary of Care Provided Minutes Spent on Discharge: 35 Hospital Course: 78 year old male with below past medical history hospitalized for upper gi bleed 2/2 gastric ulcer, complicated by hyperkalemia, acute blood loss anemia requiring transfusion, admitted to TCU with debility, here for rehabilitation, strengthening, prior to discharge home with . Discharge home with 03/09/2024, No needs. Physical Exam Const alert General Appearance: cooperative HEENT normocephalic Eyes PERRL and EOMs intact bilaterally Neck supple, no JVD and no carotid bruits Resp normal respiratory effort, normal air movement and clear to auscultation bilaterally Cardio regular rate and regular rhythm GI normal to inspection, nondistended, normoactive bowel sounds, non-tender and non-distended Extremity normal capillary refill General Extremity: Negative for edema Skin no rashes or lesions noted General Skin Exam: no breakdown Psych affect normal Appearance: appropriate Weight / BMI Weight Weight: 87.226 kg Body Mass Index (BMI) 30.1 ABG / Lab / Microbiology Data 03/05/24 06:55 03/05/24 06:55 Microbiology: Microbiology 03/01/24 06:26 Nasal Secretion SARS-CoV-2 Antigen (Rapid) - Final D/C Instructions Discharge Diet: No restrictions Discharge Activity: Return to Normal Activity, May Shower and Use Walker Weight Bearing Status: Weight bearing as tolerated Call your doctor if you observe: Fever of 101 or Higher, Inability to urinate, Inability to have a bowel movement, Shortness of breath, Dizziness, Fainting spells, Swelling in the ankles, Chest pain and Uncontrolled pain Additional Instructions: Discharge home with 03/09/2024, No needs. Meaningful Use Info Meaningful Use Meaningful Use Diagnoses (Choose all that apply): None applicable Ischemic Stroke Statin Dosing Therapy Reference: STATIN DOSE THERAPY REFERENCE: * Patients > 75 years receive moderate or high dose statin therapy. * Patients 75 years or YOUNGER should receive HIGH intensity statin dose unless contraindicated. You will be required to document reason for non-treatment if statin daily dose does not meet guidelines. HIGH DOSE STATIN THERAPY DAILY Atorvastatin > than or = to 40 mg Rosuvastatin > than or = to 20 mg Amlodipine + Atorvastatin > than or = to 2.5/40 mg Ezetimibe + Simvastatin 10/80 mg Simvastatin 80mg Discharge Plan Admission Admit Date/Time: 02/25/24 12:22 Primary Reason for Your Visit: Debility. Attending Provider: Tima Colindres Chi Primary Care Provider: Masoud Rosa Instructions Additional Instructions / Restrictions: Discharge home with 03/09/2024, No needs. Discharge Orders/Prescriptions Prescriptions: New pantoprazole 40 mg tablet,delayed release (DR/EC) 40 mg PO BID 30 Days Qty: 60 0RF Continued carbidopa-levodopa 50-200 mg tablet extended release 1 tablet PO 4X/DAY Patient Comments: verified with -pt only takes 1 of this strength 4x/day Rx Instructions: TAKE 1 IN THE MORNING, 1 AT LUNCH, 1 IN THE EVENING, AND 1 AT BEDTIME dorzolamide-timolol 22.3-6.8 mg/mL drops 1 - 2 drp OPHTHALMIC BID tamsulosin 0.4 mg capsule 0.4 mg PO DAILY ascorbic acid (vitamin C) 1,000 mg tablet 1 g PO Q6H duloxetine 60 mg capsule,delayed release(DR/EC) 60 mg PO QDAY Nubeqa 300 mg tablet 600 mg PO DAILY Patient Comments: PT FAMILY AWARE THEY WILL HAVE TO BRING MED FROM HOME prednisolone acetate 1 % drops,suspension 1 drp LEFT EYE Q12H latanoprost 0.005 % drops 1 drp RIGHT EYE QHS memantine 10 mg tablet 10 mg PO BID carbidopa-levodopa 25-100 mg tablet 2 tab PO 4X/DAY Rx Instructions: TAKE 2 IN THE MORNING, 2 AT LUNCH, 2 IN THE EVENING, AND 2 AT BEDTIME (DME) Space Chamber Spacer See Rx Instructions .Route Qty: 1 0RF Rx Instructions: As directed potassium chloride 20 mEq Tablet,Er Particles/Crystals 20 meq PO BIDCM Qty: 60 0RF mupirocin 2 % ointment 1 applic topical BID pramipexole 1 mg tablet 1 mg PO 4X/DAY Rx Instructions: TAKE IN THE MORNING, AT LUNCH, IN THE EVENING, AND AT BEDTIME aspirin 81 mg tablet,delayed release (DR/EC) 81 mg PO DAILY Qty: 90 3RF diltiazem HCl 120 mg capsule,extended release 24 hr See Rx Instructions .ROUTE .COMPLEX Qty: 90 3RF Dose Instruction: take 1 capsule by mouth once daily Rx Instructions: take 1 capsule by mouth once daily Discontinued tramadol 50 mg tablet 50 mg PO TID PRN (Reason: pain) celecoxib [Celebrex] 200 mg capsule 200 mg PO DAILY PRN (Reason: pain) albuterol sulfate 90 mcg/actuation HFA aerosol inhaler 1 inh inhalation Q6H PRN (Reason: shortness of breath or wheezing) Qty: 8.5 0RF torsemide 20 mg tablet 20 mg PO DAILY 30 Days Qty: 30 0RF acetaminophen 500 mg capsule 1,000 mg PO Q6H PRN (Reason: pain) Referrals / Follow Up: Masoud Rosa MD [Primary Care Provider] - Friend,DO Joel [Med Staff - Active Staff] - (Follow-up in 3 months for repeat EGD) Disposition Disposition (needs filled in before D/C Order can be placed): Home, Self Care
[2024-03-06] MEDS: Latanoprost 0.005% 1 Bottle 1 DRP RIGHT EYE (21:45)
[2024-03-07] MEDS: Ascorbic Acid 500 MG Tablet 1000 MG PO ×5 (00:09→23:17)
[2024-03-07] MEDS: Pramipexole Di-HCl 1 MG Tablet PO ×4 (06:11→23:13)
[2024-03-07] MEDS: Carbidopa/Levodopa 25/100 Tablet PO ×4 (06:11→23:17)
[2024-03-07] MEDS: CARBIDOPA/LEVODOPA CR 50/200 Tablet PO ×4 (06:11→23:17)
--- NOTE | 2024-03-07 08:38 | NURSING ---
Management Retail Intern Note; MDS for 03/05/2024 Complete
[2024-03-07] MEDS: Potassium Chloride Oral Tablet 20 MEQ PO ×2 (09:25→16:59)
[2024-03-07] MEDS: DULoxetine Hcl 60 MG Capsule PO (09:26)
[2024-03-07] MEDS: Memantine Hydrochloride 10 MG Tablet PO ×2 (09:26→23:13)
[2024-03-07] MEDS: dilTIAZem CD 120 MG Capsule PO (09:26)
[2024-03-07] MEDS: DAROLUTAMIDE 300 MG 600 MG PO (09:29)
[2024-03-07] MEDS: Dorzolamide HCL/Timolol 10 ml Bottle OPHTHALMIC ×2 (09:30→23:11)
[2024-03-07] MEDS: prednisoLONE eye drops (5 mL) 1 DROP OPTH.BTL 1 DRP LEFT EYE ×2 (09:30→23:13)
[2024-03-07] MEDS: Mupirocin Ointment 22gm Tube 1 APPLIC TOPICAL ×2 (09:33→23:10)
[2024-03-07] MEDS: Menthol/Lanolin/Calamine/Znox 113 GM Tube 1 APPLIC TOPICAL ×2 (09:40→23:11)
[2024-03-07 15:18] VITALS: BP 105/65; PULSE 82; RESP 16; TEMP 36.4; O2SAT 94
--- NOTE | 2024-03-07 16:33 | NURSING ---
To f/u with Dr. Prather on 03/08 at 1015 per daughter request.
[2024-03-07] MEDS: Tamsulosin HCl 0.4 MG Capsule PO (17:00)
[2024-03-07] MEDS: Latanoprost 0.005% 1 Bottle 1 DRP RIGHT EYE (23:14)
[2024-03-07] MEDS: Senna/Docusate Sodium 1 Tablet PO (23:16)
[2024-03-08 04:01] VITALS: PULSE 66; RESP 16; O2SAT 92
[2024-03-08] MEDS: Ascorbic Acid 500 MG Tablet 1000 MG PO ×4 (06:33→23:05)
[2024-03-08] MEDS: Pramipexole Di-HCl 1 MG Tablet PO ×4 (06:34→23:00)
[2024-03-08] MEDS: Carbidopa/Levodopa 25/100 Tablet PO ×4 (06:34→23:00)
[2024-03-08] MEDS: CARBIDOPA/LEVODOPA CR 50/200 Tablet PO ×4 (06:34→23:00)
--- NOTE | 2024-03-08 10:47 | NURSING ---
Patient had appt with Dr. Prather today. transported. Returned with new order to obtain urine for culture.
[2024-03-08] MEDS: dilTIAZem CD 120 MG Capsule PO (11:14)
[2024-03-08] MEDS: DULoxetine Hcl 60 MG Capsule PO (11:14)
[2024-03-08] MEDS: Potassium Chloride Oral Tablet 20 MEQ PO ×2 (11:14→17:21)
[2024-03-08] MEDS: Memantine Hydrochloride 10 MG Tablet PO ×2 (11:15→23:00)
[2024-03-08] MEDS: DAROLUTAMIDE 300 MG 600 MG PO (11:16)
[2024-03-08] MEDS: Dorzolamide HCL/Timolol 10 ml Bottle OPHTHALMIC ×2 (11:18→22:58)
[2024-03-08] MEDS: prednisoLONE eye drops (5 mL) 1 DROP OPTH.BTL 1 DRP LEFT EYE ×2 (11:18→22:59)
[2024-03-08] MEDS: Mupirocin Ointment 22gm Tube 1 APPLIC TOPICAL ×2 (11:23→22:58)
[2024-03-08] MEDS: Menthol/Lanolin/Calamine/Znox 113 GM Tube 1 APPLIC TOPICAL ×2 (11:23→22:56)
[2024-03-08 16:00] VITALS: BP 97/61; PULSE 82; RESP 14; TEMP 36.4; O2SAT 92
[2024-03-08] MEDS: Tamsulosin HCl 0.4 MG Capsule PO (17:21)
[2024-03-08] MEDS: Latanoprost 0.005% 1 Bottle 1 DRP RIGHT EYE (22:59)
[2024-03-08] MEDS: Senna/Docusate Sodium 1 Tablet PO (23:05)
[2024-03-09 04:32] VITALS: PULSE 76; RESP 16; O2SAT 94
[2024-03-09] MEDS: Carbidopa/Levodopa 25/100 Tablet PO ×2 (06:17→10:49)
[2024-03-09] MEDS: CARBIDOPA/LEVODOPA CR 50/200 Tablet PO ×2 (06:17→10:49)
[2024-03-09] MEDS: Ascorbic Acid 500 MG Tablet 1000 MG PO ×2 (06:17→10:48)
[2024-03-09] MEDS: Pramipexole Di-HCl 1 MG Tablet PO ×2 (06:17→10:49)
[2024-03-09] MEDS: DULoxetine Hcl 60 MG Capsule PO (09:37)
[2024-03-09] MEDS: DAROLUTAMIDE 300 MG 600 MG PO (09:37)
[2024-03-09] MEDS: Mupirocin Ointment 22gm Tube 1 APPLIC TOPICAL (09:38)
[2024-03-09] MEDS: prednisoLONE eye drops (5 mL) 1 DROP OPTH.BTL 1 DRP LEFT EYE (09:38)
[2024-03-09] MEDS: Potassium Chloride Oral Tablet 20 MEQ PO (09:38)
[2024-03-09] MEDS: Memantine Hydrochloride 10 MG Tablet PO (09:38)
[2024-03-09] MEDS: Dorzolamide HCL/Timolol 10 ml Bottle OPHTHALMIC (09:38)
[2024-03-09] MEDS: Menthol/Lanolin/Calamine/Znox 113 GM Tube 1 APPLIC TOPICAL (09:39)
--- NOTE | 2024-03-09 10:36 | CASEMGMT ---
Social Work SW conducted BIMS () and PHQ-2 () completed for MDS assessment. Tanisha Mccann MSW EQUIPMENT MONITOR PHOTOTYPESETTING
[2024-03-09 10:45] VITALS: BP 117/73; PULSE 74
[2024-03-09] MEDS: dilTIAZem CD 120 MG Capsule PO (10:49)
[2024-03-09 11:35] LABS: Mucous, Urine 0 SEEN /hpf (<or=2+); Red Blood Cells-Urine 0 SEEN /hpf (0-5); Squamous Epithelial Cells - UA 0 SEEN /hpf (0-5)
[2024-03-09 11:38] LABS: Color, Urine Yellow (Yellow); Glucose, Dipstick Normal (Normal); Ketone-Dipstick 5 mg/dl (Negative); Leukocyte Esterase-Dipstick 500 /ul (Negative); Nitrite-Dipstick Positive (Negative); Occult Blood-Urine 25 /ul (Negative); Protein-Dipstick 30 mg/dl (Negative); Urine Bilirubin Dipstick Negative (Negative); Urine Clarity Cloudy (Clear); Urine Urobilinogen Normal (Normal)
[2024-03-09 11:47] LABS: Bacteria 1+ /hpf (None Seen); White Blood Cells >100 SEEN /hpf (0-5)
[2024-03-09] MEDS: Ciprofloxacin 250 MG Tablet PO (14:09)
[2024-03-09 14:45] VITALS: BP 109/76; PULSE 83; RESP 18; TEMP 36.1; O2SAT 95
== END 2024-03-09 14:35 | disposition home or self-care (01) | DRG 811 ==
PROVIDERS: Urology; Admitting Provider Family Medicine Geriatric Medicine; PCP Family Medicine; Visit Provider Family Medicine Geriatric Medicine
DX: D62 Acute posthemorrhagic anemia (principal); K25.0 Acute gastric ulcer with hemorrhage; I48.19 Other persistent atrial fibrillation; N39.0 Urinary tract infection, site not specified; C61 Malignant neoplasm of prostate; F02.80 Dementia in other diseases classified elsewhere, unspecified severity, without behavioral disturbance, psychotic disturbance, mood disturbance, and anxiety; G20.A2 Parkinson's disease without dyskinesia, with fluctuations; I10 Essential (primary) hypertension; F32.A Depression, unspecified; E87.5 Hyperkalemia; H40.9 Unspecified glaucoma; N40.0 Benign prostatic hyperplasia without lower urinary tract symptoms; Z79.899 Other long term (current) drug therapy
CPT/HCPCS: 36415; 80048; 81001; 85025; 87077; 87086; 87088; 87184; 87186; 87811; 92507; 92523; 92526; 92610; 97110; 97116; 97162; 97165; 97530; 97535; 97802; A4216

== ENCOUNTER → 2024-04-04 | Outpatient (CLI) | payer MEDICARE, SELFPAY | END | disposition home or self-care (01) | LOC: LAB 15:05 | PROVIDERS: PCP Family Medicine; Referring Provider Urology; Visit Provider Urology | DX: R30.0 Dysuria (principal) | CPT/HCPCS: 87077; 87086; 87088; 87186 ==

== ENCOUNTER 2024-04-12 14:13 | Outpatient (CLI) | payer MEDICARE, SELFPAY ==
[2024-04-12 14:35] VITALS: BP 132/79; PULSE 90; RESP 16; TEMP 35.9; O2SAT 95; BMI 30.7
[2024-04-12] MEDS: 0.9% NaCl Peripheral Flush Adult/Peds IV ×2 (14:44→15:24)
[2024-04-12] MEDS: 0.9% Normal Saline (100mL Bag) 100 ML 15 ML IV (14:44)
[2024-04-12] MEDS: Cefepime HCl 2 GM in 0.9% Normal Saline (100mL MB+) 100 ML IV (14:44)
[2024-04-12 15:35] VITALS: BP 114/61; PULSE 80; RESP 16; TEMP 35.9; O2SAT 93
== END 2024-04-12 23:59 | disposition home or self-care (01) ==
LOC: MEDOUTP 14:14
PROVIDERS: PCP Family Medicine; Referring Provider Urology; Visit Provider Urology
DX: N30.00 Acute cystitis without hematuria (principal)
CPT/HCPCS: 96365; A4216

== ENCOUNTER 2024-04-13 12:31 | Outpatient (CLI) | payer MEDICARE, SELFPAY ==
[2024-04-13] MEDS: 0.9% NaCl Peripheral Flush Adult/Peds IV (12:55)
[2024-04-13] MEDS: 0.9% Normal Saline (100mL Bag) 100 ML 15 ML IV (12:57)
[2024-04-13] MEDS: Cefepime HCl 2 GM in 0.9% Normal Saline (100mL MB+) 100 ML IV (13:02)
[2024-04-13 13:19] VITALS: BP 124/79; PULSE 82; RESP 16; TEMP 35.8; O2SAT 96; BMI 30.7
[2024-04-13 13:40] VITALS: BP 114/77; PULSE 68; RESP 16; TEMP 35.9; O2SAT 92
== END 2024-04-13 23:59 | disposition home or self-care (01) ==
LOC: MEDOUTP 12:32
PROVIDERS: PCP Family Medicine; Referring Provider Urology; Visit Provider Urology
DX: N30.00 Acute cystitis without hematuria (principal)
CPT/HCPCS: 96365; A4216

== ENCOUNTER 2024-04-14 12:35 | Outpatient (CLI) | payer MEDICARE, SELFPAY ==
[2024-04-14 12:35] VITALS: BP 133/95; PULSE 88; RESP 18; TEMP 36.6; O2SAT 98
[2024-04-14] MEDS: 0.9% Normal Saline (100mL Bag) 100 ML 15 ML IV (13:31)
[2024-04-14] MEDS: 0.9% NaCl Peripheral Flush Adult/Peds IV ×2 (13:31→14:25)
[2024-04-14] MEDS: Cefepime HCl 2 GM in 0.9% Normal Saline (100mL MB+) 100 ML IV (13:31)
== END 2024-04-14 14:25 | disposition home or self-care (01) ==
LOC: MEDOUTP 12:36 → MS3 12:36
PROVIDERS: PCP Family Medicine; Referring Provider Urology; Visit Provider Urology
DX: N30.00 Acute cystitis without hematuria (principal)
CPT/HCPCS: 96365; A4216

== ENCOUNTER 2024-04-15 12:22 | Outpatient (CLI) | payer MEDICARE, SELFPAY ==
[2024-04-15] MEDS: Cefepime HCl 2 GM in 0.9% Normal Saline (100mL MB+) 100 ML IV (12:46)
[2024-04-15] MEDS: 0.9% NaCl Peripheral Flush Adult/Peds IV (12:47)
--- NOTE | 2024-04-15 13:22 | NURSING ---
pt arrived at 12:35, no new meds or medical info from yesterday visit-iv left hand flushed w/sns 5 ml-cefime added via iv infusion pump as directed 12:46 temp 98.1, pulse 80, resp 18, bp 133/83, POX of 94% on room air iv cefipime completed, iv left hand flushed w/sns and locked vitals:temp 98.1, pulse 82, bp 115/73 resp are 18, even and non labored, pox is 94% on room air lungs clear, abdomen soft w/ normal active bowel sounds pt d/c to return 04/16
== END 2024-04-15 13:20 | disposition home or self-care (01) ==
LOC: MEDOUTP 12:23 → MS3 12:23
PROVIDERS: PCP Family Medicine; Referring Provider Urology; Visit Provider Urology
DX: N30.00 Acute cystitis without hematuria (principal)
CPT/HCPCS: 96365; A4216

== ENCOUNTER 2024-04-16 13:46 | Outpatient (CLI) | payer MEDICARE, SELFPAY ==
[2024-04-16] MEDS: 0.9% NaCl Peripheral Flush Adult/Peds IV (14:03)
[2024-04-16] MEDS: 0.9% Normal Saline (100mL Bag) 100 ML 15 ML IV (14:03)
[2024-04-16 14:06] VITALS: BP 116/78; PULSE 85; RESP 16; TEMP 35.8; O2SAT 96
[2024-04-16] MEDS: Cefepime HCl 2 GM in 0.9% Normal Saline (100mL MB+) 100 ML IV (14:10)
[2024-04-16 15:03] VITALS: BP 114/65; PULSE 53; RESP 16; TEMP 35.9; O2SAT 95
== END 2024-04-16 23:59 | disposition home or self-care (01) ==
LOC: MEDOUTP 13:46
PROVIDERS: PCP Family Medicine; Referring Provider Urology; Visit Provider Urology
DX: N30.00 Acute cystitis without hematuria (principal)
CPT/HCPCS: 96365; A4216

== ENCOUNTER 2024-04-17 12:48 | Outpatient (CLI) | payer MEDICARE, SELFPAY ==
[2024-04-17 13:00] VITALS: BP 138/98; PULSE 91; RESP 16; TEMP 35.7; O2SAT 96; BMI 30.7
[2024-04-17] MEDS: 0.9% NaCl Peripheral Flush Adult/Peds IV ×2 (13:07→14:03)
[2024-04-17] MEDS: 0.9% Normal Saline (100mL Bag) 100 ML 15 ML IV (13:08)
[2024-04-17] MEDS: Cefepime HCl 2 GM in 0.9% Normal Saline (100mL MB+) 100 ML IV (13:08)
[2024-04-17 13:43] VITALS: BP 134/84; PULSE 83; RESP 16; TEMP 35.7; O2SAT 94
[2024-04-17 14:05] VITALS: BP 130/84; PULSE 82; RESP 16; TEMP 36; O2SAT 95
== END 2024-04-17 23:59 | disposition home or self-care (01) ==
LOC: MEDOUTP 12:48
PROVIDERS: PCP Family Medicine; Referring Provider Urology; Visit Provider Urology
DX: N30.00 Acute cystitis without hematuria (principal)
CPT/HCPCS: 96365; A4216

== ENCOUNTER 2024-04-18 13:39 | Outpatient (CLI) | payer MEDICARE, SELFPAY ==
[2024-04-18 13:43] VITALS: BP 133/86; PULSE 80; RESP 16; TEMP 36.6
[2024-04-18] MEDS: 0.9% Normal Saline (100mL Bag) 100 ML 15 ML IV (13:57)
[2024-04-18] MEDS: 0.9% NaCl Peripheral Flush Adult/Peds IV (13:57)
[2024-04-18] MEDS: Cefepime HCl 2 GM in 0.9% Normal Saline (100mL MB+) 100 ML IV (13:57)
[2024-04-18 14:46] VITALS: BP 126/75; PULSE 81; RESP 16; TEMP 36.4; O2SAT 96
== END 2024-04-18 23:59 | disposition home or self-care (01) ==
LOC: MEDOUTP 13:39
PROVIDERS: PCP Family Medicine; Referring Provider Urology; Visit Provider Urology
DX: N30.00 Acute cystitis without hematuria (principal)
CPT/HCPCS: 96365; A4216

== ENCOUNTER → 2024-04-27 | Outpatient (CLI) | payer MEDICARE, SELFPAY | END | disposition home or self-care (01) | LOC: LABSPEC 04-30 08:36 | PROVIDERS: PCP Family Medicine; Referring Provider Urology; Visit Provider Urology | DX: R30.0 Dysuria (principal) | CPT/HCPCS: 87077; 87086; 87088; 87186 ==

== ENCOUNTER 2024-05-15 10:19 | Outpatient (RCR) | payer MEDICARE, SELFPAY ==
[2024-05-15 10:35] LABS: Color, Urine Yellow (Yellow); Glucose, Dipstick Normal (Normal); Ketone-Dipstick 15 mg/dl (Negative); Leukocyte Esterase-Dipstick 25 /ul (Negative); Nitrite-Dipstick Negative (Negative); Occult Blood-Urine Negative /ul (Negative); Protein-Dipstick 30 mg/dl (Negative); Urine Bilirubin Dipstick Negative (Negative); Urine Clarity Clear (Clear); Urine Urobilinogen Normal (Normal)
== END 2024-06-02 18:00 | disposition home or self-care (01) ==
LOC: HHLAB 10:19
PROVIDERS: PCP Family Medicine; Referring Provider Urology; Visit Provider Urology
DX: M48.02 Spinal stenosis, cervical region (principal)
CPT/HCPCS: 81002; 87077; 87086; 87088; 87186

== ENCOUNTER 2024-05-15 13:22 | Observation (INO) | payer MEDICARE, SELFPAY ==
[2024-05-15] VITALS (11 sets, daily range): BP systolic 121–153; BP diastolic 80–112; PULSE 75–97; RESP 14–20; TEMP 36.2–36.6; O2SAT 94–98; BMI 18.5; BMI 26.6
[2024-05-15 13:53] LABS: Absolute Lymphocyte Count 0.39 X10^3/uL (0.83-4.51); Absolute Neutrophil Count 4.2 X10^3/uL (2.0-7.7); Basophil# 0.02 X10^3/uL; Basophil% 0.4 % (0-1); Eosinophil# 0.06 X10^3/uL; Eosinophils% 1.2 % (0-5); Hemoglobin 13.4 g/dL (13.0-16.5); Lymphocyte # 0.39 X10^3/ul (0.83-4.51); Lymphocyte % 7.6 % (19-41); Mean Corp Hgb Conc 31.2 g/dL (32-36); Mean Corpuscular Hgb 23.8 pg (27.0-32.0); Mean Corpuscular Volume 76.4 fL (80-94); Monocyte# 0.46 X10^3/uL; NRBC Flagged by Analyzer 0 % (0-5); Neutrophil # 4.16 X10^3/uL (2.7-7.7); Neutrophil % 81.4 % (47-70); POSITIVE DIFFERENTIAL YES; Platelet Count 236 K/mm3 (150-450); RBC Distribution Width CV 18.3 % (11.6-14.6); RBC Distribution Width SD 48.1 fl (35.1-43.9); Red Blood Count 5.63 M/mm3 (4.6-6.2); White Blood Count 5.1 K/mm3 (4.4-11.0)
[2024-05-15 14:21] LABS: ALB/GLOB Ratio 0.9 RATIO (0.9-2.4); AST(SGOT) 7 U/L (15-37); Alanine Aminotransfer ALT/SGPT < 6 U/L (16-61); Albumin, Serum 3.4 g/dL (3.2-5.0); Alkaline Phosphatase 145 U/L (45-117); Anion Gap 5 (5-15); BUN 13 mg/dL (7-18); BUN/Creat Ratio 15.7 RATIO (10-20); Calcium,Total 8.7 mg/dL (8.5-10.1); Chloride 104 mmol/L (98-107); Creatinine, Serum 0.83 mg/dL (0.70-1.30); EST Glomerular Filtration Rate 95 mL/min (>60); Est Glom Filt Rate - Afr Amer 115 mL/min (>60); Estimated Creatinine Clearance 58.18 ml/min; Globulin 3.7 g/dL (2.2-4.2); Glucose 103 mg/dL (74-106); Potassium 4.1 mmol/L (3.5-5.1); Protein, Total 7.1 g/dL (6.4-8.2); Sodium Level 136 mmol/L (136-145)
[2024-05-15 15:39] LABS: Bacteria 0 SEEN /hpf (None Seen); Mucous, Urine 0 SEEN /hpf (<or=2+); Squamous Epithelial Cells - UA 0 SEEN /hpf (0-5)
[2024-05-15 15:43] LABS: Color, Urine Yellow (Yellow); Glucose, Dipstick Normal (Normal); Ketone-Dipstick 15 mg/dl (Negative); Leukocyte Esterase-Dipstick 25 /ul (Negative); Nitrite-Dipstick Negative (Negative); Occult Blood-Urine 10 /ul (Negative); Protein-Dipstick 15 mg/dl (Negative); Specific Gravity, Urine 1.015 (1.002-1.030); Urine Bilirubin Dipstick Negative (Negative); Urine Clarity Clear (Clear); Urine Urobilinogen 1 mg/dl (Normal); Urine pH 6.5 (5.0 - 8.0)
[2024-05-15 15:49] LABS: Calcium Oxalate Crystals Ur 1+ /hpf (<or=2+); Red Blood Cells-Urine 0-5 SEEN /hpf (0-5); White Blood Cells 0-5 SEEN /hpf (0-5)
[2024-05-15] MEDS: 0.9% Normal Saline (500mL Bag) 500 ML 999 ML IV (16:48)
[2024-05-15] MEDS: Meclizine 12.5 MG Tablet PO (19:57)
[2024-05-15] MEDS: Dorzolamide HCL/Timolol 10 ml Bottle 1 DRP OPHTHALMIC (21:30)
[2024-05-15] MEDS: Latanoprost 0.005% 1 Bottle 1 DRP RIGHT EYE (21:38)
[2024-05-15] MEDS: Pramipexole Di-HCl 1 MG Tablet PO (21:39)
[2024-05-15] MEDS: Memantine Hydrochloride 10 MG Tablet PO (21:39)
[2024-05-15] MEDS: Nystatin Powder 15gm Bottle 1 APPLIC TOPICAL (21:39)
[2024-05-15] MEDS: CARBIDOPA/LEVODOPA CR 50/200 Tablet PO (21:39)
[2024-05-15] MEDS: Pantoprazole Sodium 40 MG Tablet PO (21:39)
[2024-05-16 03:30] VITALS: BP 135/91; PULSE 86; RESP 18; TEMP 35.8; O2SAT 97
[2024-05-16] MEDS: CARBIDOPA/LEVODOPA CR 50/200 Tablet PO ×4 (05:55→20:49)
[2024-05-16] MEDS: Pramipexole Di-HCl 1 MG Tablet PO ×4 (05:55→20:47)
[2024-05-16 06:47] LABS: Hemoglobin 12.2 g/dL (13.0-16.5); Mean Corp Hgb Conc 30.5 g/dL (32-36); Mean Corpuscular Hgb 23.1 pg (27.0-32.0); Mean Corpuscular Volume 75.9 fL (80-94); Mean Platelet Vol. 11.2 fl (6.2-12.0); Platelet Count 219 K/mm3 (150-450); RBC Distribution Width CV 17.7 % (11.6-14.6); RBC Distribution Width SD 47.8 fl (35.1-43.9); Red Blood Count 5.27 M/mm3 (4.6-6.2); White Blood Count 4.3 K/mm3 (4.4-11.0)
[2024-05-16 07:23] LABS: ALB/GLOB Ratio 0.9 RATIO (0.9-2.4); AST(SGOT) 8 U/L (15-37); Alanine Aminotransfer ALT/SGPT < 6 U/L (16-61); Albumin, Serum 3.1 g/dL (3.2-5.0); Alkaline Phosphatase 130 U/L (45-117); Anion Gap 6 (5-15); BUN 11 mg/dL (7-18); Calcium,Total 8.4 mg/dL (8.5-10.1); Chloride 106 mmol/L (98-107); Creatinine, Serum 0.69 mg/dL (0.70-1.30); EST Glomerular Filtration Rate 118 mL/min (>60); Est Glom Filt Rate - Afr Amer 143 mL/min (>60); Estimated Creatinine Clearance 74.87 ml/min; Globulin 3.4 g/dL (2.2-4.2); Glucose 93 mg/dL (74-106); Potassium 3.6 mmol/L (3.5-5.1); Protein, Total 6.5 g/dL (6.4-8.2); Sodium Level 137 mmol/L (136-145)
[2024-05-16 08:13] VITALS: BP 139/101; PULSE 85; RESP 16; TEMP 36.7; O2SAT 95
[2024-05-16] MEDS: Ensure Plus High Protein 120 ML LIQUID PO ×2 (08:19→18:09)
[2024-05-16 08:28] VITALS: O2SAT 95
[2024-05-16] MEDS: Enoxaparin 40 MG/0.4 ML Syringe SC (09:48)
[2024-05-16] MEDS: Nystatin Powder 15gm Bottle 1 APPLIC TOPICAL ×2 (09:48→20:50)
[2024-05-16] MEDS: DULoxetine Hcl 60 MG Capsule PO (09:49)
[2024-05-16] MEDS: Memantine Hydrochloride 10 MG Tablet PO ×2 (09:49→20:49)
[2024-05-16] MEDS: dilTIAZem CD 120 MG Capsule PO (09:49)
[2024-05-16] MEDS: Pantoprazole Sodium 40 MG Tablet PO ×2 (09:49→20:49)
[2024-05-16] MEDS: Tamsulosin HCl 0.4 MG Capsule PO (09:49)
[2024-05-16] MEDS: Dorzolamide HCL/Timolol 10 ml Bottle 1 DRP OPHTHALMIC ×2 (09:50→20:47)
[2024-05-16 10:55] VITALS: BP 126/101; BP 146/98; BP 91/60; PULSE 113; PULSE 94; PULSE 95
[2024-05-16 14:10] VITALS: BP 95/70; PULSE 95; RESP 16; TEMP 36.3; O2SAT 96
[2024-05-16 20:21] VITALS: BP 148/109; PULSE 77; RESP 18; TEMP 36.6; O2SAT 92
[2024-05-16] MEDS: QUEtiapine 25 MG Tablet PO (20:45)
[2024-05-16] MEDS: DAROLUTAMIDE 300 MG 600 MG PO (20:48)
[2024-05-16] MEDS: Latanoprost 0.005% 1 Bottle 1 DRP RIGHT EYE (20:49)
[2024-05-16] MEDS: Acetaminophen 325 MG Tablet 650 MG PO (20:56)
[2024-05-16] MEDS: MELATONIN 3 MG TABLET PO (20:56)
[2024-05-17] MEDS: CARBIDOPA/LEVODOPA CR 50/200 Tablet PO ×4 (06:07→21:37)
[2024-05-17] MEDS: Pramipexole Di-HCl 1 MG Tablet PO ×4 (06:07→21:37)
[2024-05-17 06:10] VITALS: BP 138/98; PULSE 88; RESP 18; TEMP 37.1; O2SAT 97
[2024-05-17 07:50] VITALS: O2SAT 96
[2024-05-17 09:05] VITALS: BP 138/97; PULSE 82; RESP 16; TEMP 36.8; O2SAT 96
[2024-05-17] MEDS: dilTIAZem CD 120 MG Capsule PO (09:09)
[2024-05-17] MEDS: Memantine Hydrochloride 10 MG Tablet PO ×2 (09:09→21:37)
[2024-05-17] MEDS: Fludrocortisone Acetate 0.1 MG Tablet 0.05 MG PO (09:09)
[2024-05-17] MEDS: Pantoprazole Sodium 40 MG Tablet PO ×2 (09:09→21:37)
[2024-05-17] MEDS: DULoxetine Hcl 60 MG Capsule PO (09:09)
[2024-05-17] MEDS: Tamsulosin HCl 0.4 MG Capsule PO (09:09)
[2024-05-17] MEDS: Ensure Plus High Protein 120 ML LIQUID PO ×3 (09:09→17:34)
[2024-05-17] MEDS: Enoxaparin 40 MG/0.4 ML Syringe SC (09:10)
[2024-05-17] MEDS: Nystatin Powder 15gm Bottle 1 APPLIC TOPICAL ×2 (09:10→21:37)
[2024-05-17] MEDS: Dorzolamide HCL/Timolol 10 ml Bottle 1 DRP OPHTHALMIC ×2 (09:11→21:36)
[2024-05-17 10:54] LABS: Absolute Lymphocyte Count 0.69 X10^3/uL (0.83-4.51); Absolute Neutrophil Count 2.9 X10^3/uL (2.0-7.7); Basophil# 0.03 X10^3/uL; Basophil% 0.7 % (0-1); Eosinophil# 0.18 X10^3/uL; Eosinophils% 4.2 % (0-5); Hematocrit 40.7 % (40-54); Hemoglobin 12.8 g/dL (13.0-16.5); Lymphocyte # 0.69 X10^3/ul (0.83-4.51); Mean Corp Hgb Conc 31.4 g/dL (32-36); Mean Corpuscular Hgb 23.6 pg (27.0-32.0); Mean Platelet Vol. 9.9 fl (6.2-12.0); Monocyte# 0.47 X10^3/uL; Monocyte% 10.9 % (0-10); NRBC Flagged by Analyzer 0 % (0-5); Neutrophil # 2.92 X10^3/uL (2.7-7.7); Platelet Count 228 K/mm3 (150-450); RBC Distribution Width SD 48.2 fl (35.1-43.9); Red Blood Count 5.43 M/mm3 (4.6-6.2); White Blood Count 4.3 K/mm3 (4.4-11.0)
[2024-05-17 11:07] LABS: Anion Gap 4 (5-15); BUN 15 mg/dL (7-18); BUN/Creat Ratio 17.4 RATIO (10-20); Calcium,Total 8.4 mg/dL (8.5-10.1); Chloride 108 mmol/L (98-107); Creatinine, Serum 0.86 mg/dL (0.70-1.30); EST Glomerular Filtration Rate 91 mL/min (>60); Est Glom Filt Rate - Afr Amer 110 mL/min (>60); Estimated Creatinine Clearance 69.65 ml/min; Glucose 104 mg/dL (74-106); Magnesium 1.8 mg/dL (1.6-2.6); Phosphorus 2.9 mg/dL (2.5-4.9); Potassium 3.5 mmol/L (3.5-5.1); Sodium Level 140 mmol/L (136-145)
[2024-05-17 15:03] VITALS: BP 93/68; PULSE 86; RESP 18; TEMP 36.4; O2SAT 92
[2024-05-17 16:13] VITALS: O2SAT 92
[2024-05-17 21:30] VITALS: BP 127/75; PULSE 90; RESP 16; TEMP 36.6; O2SAT 93
[2024-05-17] MEDS: QUEtiapine 25 MG Tablet PO (21:37)
[2024-05-17] MEDS: DAROLUTAMIDE 300 MG 600 MG PO (21:37)
[2024-05-17] MEDS: Latanoprost 0.005% 1 Bottle 1 DRP RIGHT EYE (21:38)
[2024-05-18 03:26] VITALS: BP 123/86; PULSE 83; RESP 16; TEMP 36.4; O2SAT 93
[2024-05-18] MEDS: CARBIDOPA/LEVODOPA CR 50/200 Tablet PO ×2 (06:34→11:38)
[2024-05-18] MEDS: Pramipexole Di-HCl 1 MG Tablet PO ×2 (06:34→11:38)
[2024-05-18 08:36] VITALS: BP 140/99; PULSE 84; RESP 18; TEMP 36.6; O2SAT 97
[2024-05-18] MEDS: Ensure Plus High Protein 120 ML LIQUID PO ×2 (08:39→11:38)
[2024-05-18] MEDS: Fludrocortisone Acetate 0.1 MG Tablet 0.05 MG PO (08:46)
[2024-05-18] MEDS: Pantoprazole Sodium 40 MG Tablet PO (08:46)
[2024-05-18] MEDS: Tamsulosin HCl 0.4 MG Capsule PO (08:46)
[2024-05-18] MEDS: Dorzolamide HCL/Timolol 10 ml Bottle 1 DRP OPHTHALMIC (08:47)
[2024-05-18] MEDS: Enoxaparin 40 MG/0.4 ML Syringe SC (08:47)
[2024-05-18] MEDS: Memantine Hydrochloride 10 MG Tablet PO (08:47)
[2024-05-18] MEDS: DULoxetine Hcl 60 MG Capsule PO (08:47)
[2024-05-18] MEDS: dilTIAZem CD 120 MG Capsule PO (08:47)
[2024-05-18] MEDS: Nystatin Powder 15gm Bottle 1 APPLIC TOPICAL (08:48)
== END 2024-05-18 10:00 | disposition skilled nursing facility (03) ==
LOC: ED 16:27 → PCU 17:12
PROVIDERS: Admitting Provider Hospitalist; Emergency Provider Emergency Medicine; PCP Family Medicine; Visit Provider Internal Medicine
DX: S09.90XA Unspecified injury of head, initial encounter (principal); G20.A1 Parkinson's disease without dyskinesia, without mention of fluctuations; I27.21 Secondary pulmonary arterial hypertension; F02.811 Dementia in other diseases classified elsewhere, unspecified severity, with agitation; I48.19 Other persistent atrial fibrillation; I43 Cardiomyopathy in diseases classified elsewhere; R26.81 Unsteadiness on feet; R53.1 Weakness; R30.0 Dysuria; H40.9 Unspecified glaucoma; D64.9 Anemia, unspecified; I10 Essential (primary) hypertension; M48.02 Spinal stenosis, cervical region; F32.A Depression, unspecified; W19.XXXA Unspecified fall, initial encounter; I95.1 Orthostatic hypotension; E86.0 Dehydration; R42 Dizziness and giddiness; Z79.899 Other long term (current) drug therapy; Z86.711 Personal history of pulmonary embolism; Z86.718 Personal history of other venous thrombosis and embolism; Z87.440 Personal history of urinary (tract) infections; N40.1 Benign prostatic hyperplasia with lower urinary tract symptoms; N13.8 Other obstructive and reflux uropathy
CPT/HCPCS: 36415; 70450; 70551; 80048; 80053; 81001; 81002; 83735; 84100; 84443; 85025; 85027; 87086; 93005; 96360; 96372; 97116; 97162; 97166; 97530; 97802; 99221; 99285; J7040; A4216; G0378

== ENCOUNTER 2024-05-18 14:30 | Inpatient (IN) | payer MEDICARE, SELFPAY ==
[2024-05-18 14:38] VITALS: BP 129/86; PULSE 69; RESP 19; TEMP 36.4; O2SAT 90; BMI 26.9
--- NOTE | 2024-05-18 14:42 | HP.PCM_ITS ---
HPI - General General Date of Admission: 05/18/24 Date of Service: 05/18/24 Chief Complaint: Here for rehabilitation. HPI Narrative KAREN MOYA, is a 78 Male who presents with followin05/15/2024 [facility] ED head injury. Fall, fell backwards, hit back of head on walker. No LOC, no blood thinners. Dizziness, unsteady gait for 2 weeks. Recurrent dysuria for 2 days, Finished antibiotics 2 weeks ago. Dizzy, weak with ambulation. IV fluids for orthostasis. Urinalysis negative for infection. 05/15/[address] [facility]. CT head negative, MRI brain negative acute stroke. Teleneurology, PT/OT, for dizziness, falls. History of MDR Pseudomonas UTI, urinalysis okay. 05/16/2024 PT/OT for Parkinson disease, debility, falls. IV fluids for orthostasis. 05/16/2024 Neurology recommends Meclizine 12mg tid prn for vertigo. Aggressive PT/OT for gait difficulty. 05/16/2024 Seroquel for agitation/hallucinations. 05/17/2024 Lethargic this AM. PT/OT for TCU. Florinef prn orthostasis. 05/18/2024 More awake, more interactive. Pre-CERT for TCU. 05/18/2024 Admit to TCU with debility, here for rehabilitation, strengthening, prior to discharge home with . I spoke with resident , resident daughter. Resident diagnosed with Parkinson Disease in 2018, he is treated by Dr. Karen Boss, [facility]. 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 He will sometimes act up milking a cow or getting out of bed to go drive his tractor. [facility] Medical History (Updated 05/18/24 @ 14:[address] Tima Colindres MD) BPH (benign prostatic hyperplasia) Anxiety Depression Non-smoker History of Parkinson disease GI bleed Ambulatory dysfunction Wound of left foot Mitral valve insufficiency Lower extremity edema History of blistering sunburn Non-pressure chronic ulcer of left calf with fat layer exposed Obstructive uropathy Bladder stone Urethral stricture Urinary retention Parkinsons disease Chronic radiation cystitis History of prostate cancer DVT (deep venous thrombosis) Bladder outflow obstruction Hypertension Persistent atrial fibrillation Cardiomyopathy in other diseases classified elsewhere Other secondary pulmonary hypertension Home Medications ?Medication ?Instructions ?Recorded ?Last Taken ?Type carbidopa ER 50 mg-levodopa 200 mg 1 tablet PO 4X/DAY parkinsons 09/25/20 05/18/24 History tablet,extended release dorzolamide 22.3 mg-timolol 6.8 1 - 2 drp ophthalmic (eye) BID 09/25/20 05/18/24 History mg/mL eye drops glaucoma prednisolone acetate 1 % eye 1 drp LEFT EYE Q12H vision 11/13/20 05/14/24 History drops,suspension latanoprost 0.005 % eye drops 1 drp RIGHT EYE QHS eye he 09/10/21 05/17/24 History memantine 10 mg tablet 10 mg PO BID MEMORY 09/10/21 05/18/24 History tamsulosin 0.4 mg capsule 0.4 mg PO DAILY prostate 03/14/23 05/18/24 History inhalational spacing device (Space #1 ea 08/08/23 Unknown Rx Chamber) potassium chloride 20 mEq 20 meq PO BIDCM Supplement #60 tabs 11/17/23 05/14/24 Rx tablet,extended release(part/cryst) diltiazem HCl 120 mg capsule,24 See Rx Instructions .Route 02/01/24 05/15/24 Rx hr,extended release .COMPLEX heart #90 CAPSULES ascorbic acid (vitamin C) 1,000 mg 1 g PO Q6H Supplement 02/04/24 05/14/24 History tablet darolutamide 300 mg tablet (Nubeqa) 600 mg PO DAILY Prostate 02/04/24 05/17/24 History duloxetine 60 mg capsule,delayed 60 mg PO QDAY Mood 02/04/24 05/18/24 History release mupirocin 2 % topical ointment 1 applic topical BID Skin 02/22/24 02/21/24 History pramipexole 1 mg tablet 1 mg PO 4X/DAY Restless Leg 02/22/24 05/18/24 History pantoprazole 40 mg tablet,delayed 40 mg PO BID stomach 30 days #60 03/06/24 05/18/24 Rx release tabs acetaminophen 325 mg tablet 650 mg (2 x 325 mg) PO Q6H PRN PRN 05/18/24 05/16/24 Rx Pain 1-10 #0 tabs fludrocortisone 0.1 mg tablet 0.05 mg (1/2 x 0.1 mg) PO 05/18/24 05/18/24 Rx BREAKFAST orthostatic hypotension #0 tabs food supplemt, lactose-reduced 120 ml PO TIDCM supplement #0 mL 05/18/24 05/18/24 Rx 0.08 gram-1.5 kcal/mL oral liquid (Ensure Plus High Protein) meclizine 12.5 mg tablet 12.5 mg PO TID PRN PRN Dizziness 05/18/24 Unknown Rx #0 tabs melatonin 3 mg tablet 3 mg PO QHS PRN PRN Insomnia #0 05/18/24 05/16/24 Rx tabs quetiapine 25 mg tablet 25 mg PO QHS confusion, 05/18/24 05/17/24 Rx hallucinations #0 tabs Allergy/AdvReac Type Severity Reaction Status Date / Time lidocaine Allergy Angioedema Verified 04/17/24 12:58 peppermint Allergy Angioedema Verified 04/17/24 12:58 phenylephrine Allergy Angioedema Verified 04/17/24 12:58 doxycycline AdvReac Intermediate SUNBURN Verified 04/17/24 12:58 Family History Brother Atrial fibrillation Hypertension Mother Heart disease CAD (coronary artery disease) Myocardial infarction Hypertension Heart failure Father Heart disease Colon cancer Ruptured aortic aneurysm Surgical History History of incision and drainage (~09/2021) History of cataract extraction History of hernia repair Social History household members: spouse Smoking Status: Never smoker alcohol intake: never substance use type: does not use caffeine: Yes Type: carbonated beverages Number of servings: 1 ROS Constitutional Constitutional: Denies chills, fever(s) or weight gain ENT HEENT: Denies headache(s), nasal congestion or nasal discharge Cardiovascular Cardiovascular: Denies chest pain or palpitations Respiratory/Chest Respiratory/Chest: Denies cough, excessive phlegm production or shortness of breath with exertion Gastrointestinal Gastrointestinal: Denies abdominal pain, nausea or vomiting Genitourinary Genitourinary: Denies dysuria Musculoskeletal Musculoskeletal: Denies joint pain or joint swelling Integumentary Integumentary: Denies rash or wounds Neurologic Neurologic: Denies focal weakness, numbness or tingling Psychiatric Psychiatric: Denies anxiety, auditory hallucinations, depression, homicidal ideation or suicidal ideation Vital Signs Vital Signs Vital Signs: 05/18/24 14:38 Temperature 97.5 F L Temperature Source Temporal Pulse Rate 69 Respiratory Rate 19 H Blood Pressure 129/86 H Blood Pressure Mean 100 Blood Pressure Source Monitor Pulse Ox 90 Oxygen Delivery Method Room Air Weight Weight: 82.6 kg Body Mass Index (BMI) 26.9 Physical Exam Const alert General Appearance: cooperative HEENT normocephalic Eyes PERRL and EOMs intact bilaterally Neck supple, no JVD and no carotid bruits Resp normal respiratory effort, normal air movement and clear to auscultation bilaterally Cardio regular rate and regular rhythm GI normal to inspection, nondistended, normoactive bowel sounds, non-tender and non-distended Extremity normal capillary refill General Extremity: Negative for edema Skin no rashes or lesions noted General Skin Exam: no breakdown Psych affect normal Appearance: appropriate Assessment & Plan Assessment/Plan (1) Debility: (2) Fall: (3) Closed head injury: (4) Orthostatic hypotension: (5) Dehydration: (6) Vertigo: (7) Gastric ulcer: (8) Parkinsons disease: QUALIFIERS: Dyskinesia presence: unspecified whether dyskinesia Fluctuating manifestations: with fluctuating manifestations Qualified Code(s): G20.A2 - Parkinson's disease without dyskinesia, with fluctuations (9) Vitamin C deficiency: (10) History of prostate cancer: (11) Atrial fibrillation: (12) Glaucoma: (13) Parkinson's disease dementia: (14) Depression: (15) Hypokalemia: PLAN: Plan 78 year old male with below past medical history significant for progressive Parkinson Disease, hospitalized for fall, closed head injury, dizziness, orthostatic hypotension, dehydration, admitted to TCU with debility, here for rehabilitation, strengthening, prior to discharge home with . * Debility - PT/OT. * Pain - Tylenol 1000mg q6 prn pain (1-10). * Bowel - senna/colace 1 tablet bid, Magnesium citrate 300mL po daily prn * Adult immunization - Administer pneumonia vaccine, covid vaccine, flu vaccine as appropriate. * DVT prophylaxis - Lovenox 40mg sc daily. * Vitamin C deficiency - Vitamin C 1000mg q6. * Parkinson Disease - Sinemet 50/200mg 4x/day, Mirapex 1mg 4x/day. * Prostate cancer - Nubeqa 600mg daily. * Atrial fibrillation - Diltiazem 120mg daily. * Glaucoma - Cosopt 1-2 gtt ou bid, Latanoprost 1gtt od qhs, Prednisolone 1gtt os q12. 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 * Nutrition - Ensure Plus 120mL po tidcm. * Orthostatic hypotension - Florinef 0.05mg po breakfast. * Vertigo - Meclizine 12.5mg tid prn. * Insomnia - Melatonin 3mg qhs prn. * Parkinson Disease Dementia - Memantine 10mg bid. * Skin irritation - Mupirocin topical bid. * Gastric ulcer - Pantoprazole 40mg bid. * Hypokalemia - KCL 20meq bid. * Visual hallucinations - Seroquel 25mg qhs, stable chronic halfway use, GDR not recommended. * BPH - Tamsulosin 0.4mg daily.
[2024-05-18 14:52] VITALS: BMI 28.5
[2024-05-18] MEDS: CARBIDOPA/LEVODOPA CR 50/200 Tablet PO ×2 (17:49→21:14)
[2024-05-18] MEDS: Pramipexole Di-HCl 1 MG Tablet PO ×2 (17:49→21:13)
[2024-05-18] MEDS: Ascorbic Acid 500 MG Tablet 1000 MG PO ×2 (17:49→21:14)
[2024-05-18] MEDS: Potassium Chloride Oral Tablet 20 MEQ PO (17:49)
[2024-05-18] MEDS: Ensure Plus High Protein 120 ML LIQUID PO (18:22)
[2024-05-18] MEDS: Mupirocin Ointment 22gm Tube 1 APPLIC TOPICAL (21:11)
[2024-05-18] MEDS: Dorzolamide HCL/Timolol 10 ml Bottle 1 DRP OPHTHALMIC (21:12)
[2024-05-18] MEDS: Memantine Hydrochloride 10 MG Tablet PO (21:13)
[2024-05-18] MEDS: prednisoLONE eye drops (5 mL) 1 DROP OPTH.BTL 1 DRP LEFT EYE (21:13)
[2024-05-18] MEDS: Nystatin Powder 15gm Bottle 1 APPLIC TOPICAL (21:13)
[2024-05-18] MEDS: QUEtiapine 25 MG Tablet PO (21:14)
[2024-05-18] MEDS: Senna/Docusate Sodium 1 Tablet PO (21:14)
[2024-05-18] MEDS: Pantoprazole Sodium 40 MG Tablet PO (21:14)
[2024-05-18] MEDS: Latanoprost 0.005% 1 Bottle 1 DRP RIGHT EYE (21:14)
[2024-05-18] MEDS: 0.9% Saline Lock 10 ML Syringe IV (21:25)
[2024-05-19] MEDS: MELATONIN 3 MG TABLET PO (01:47)
[2024-05-19] MEDS: Meclizine 12.5 MG Tablet PO (01:47)
[2024-05-19] MEDS: Enoxaparin 40 MG/0.4 ML Syringe SC (06:26)
[2024-05-19] MEDS: Ascorbic Acid 500 MG Tablet 1000 MG PO ×4 (06:27→21:32)
[2024-05-19] MEDS: CARBIDOPA/LEVODOPA CR 50/200 Tablet PO ×4 (06:27→21:30)
[2024-05-19] MEDS: Pramipexole Di-HCl 1 MG Tablet PO ×4 (06:27→21:30)
[2024-05-19 07:26] LABS: Absolute Lymphocyte Count 0.88 X10^3/uL (0.83-4.51); Absolute Neutrophil Count 4.7 X10^3/uL (2.0-7.7); Basophil# 0.02 X10^3/uL; Basophil% 0.3 % (0-1); Eosinophil# 0.27 X10^3/uL; Eosinophils% 4.2 % (0-5); Hematocrit 39.5 % (40-54); Hemoglobin 12.4 g/dL (13.0-16.5); Lymphocyte # 0.88 X10^3/ul (0.83-4.51); Lymphocyte % 13.6 % (19-41); Mean Corp Hgb Conc 31.4 g/dL (32-36); Mean Corpuscular Hgb 23.6 pg (27.0-32.0); Mean Corpuscular Volume 75.1 fL (80-94); Mean Platelet Vol. 11.2 fl (6.2-12.0); Monocyte% 7.8 % (0-10); NRBC Flagged by Analyzer 0 % (0-5); Neutrophil # 4.72 X10^3/uL (2.7-7.7); Neutrophil % 73.2 % (47-70); Platelet Count 244 K/mm3 (150-450); RBC Distribution Width CV 18.2 % (11.6-14.6); RBC Distribution Width SD 47.1 fl (35.1-43.9); Red Blood Count 5.26 M/mm3 (4.6-6.2); White Blood Count 6.5 K/mm3 (4.4-11.0)
[2024-05-19 07:45] LABS: Anion Gap 6 (5-15); BUN 18 mg/dL (7-18); Calcium,Total 8.7 mg/dL (8.5-10.1); Chloride 108 mmol/L (98-107); Creatinine, Serum 0.82 mg/dL (0.70-1.30); EST Glomerular Filtration Rate 96 mL/min (>60); Est Glom Filt Rate - Afr Amer 116 mL/min (>60); Estimated Creatinine Clearance 75.11 ml/min; Glucose 102 mg/dL (74-106); Potassium 3.5 mmol/L (3.5-5.1); Sodium Level 140 mmol/L (136-145)
[2024-05-19] MEDS: Ensure Plus High Protein 120 ML LIQUID PO ×3 (09:42→17:29)
[2024-05-19] MEDS: prednisoLONE eye drops (5 mL) 1 DROP OPTH.BTL 1 DRP LEFT EYE ×2 (09:42→21:28)
[2024-05-19] MEDS: Senna/Docusate Sodium 1 Tablet PO ×2 (09:43→21:32)
[2024-05-19] MEDS: DAROLUTAMIDE 300 MG 600 MG PO (09:43)
[2024-05-19] MEDS: Pantoprazole Sodium 40 MG Tablet PO ×2 (09:43→21:31)
[2024-05-19] MEDS: Fludrocortisone Acetate 0.1 MG Tablet 0.05 MG PO (09:43)
[2024-05-19] MEDS: Memantine Hydrochloride 10 MG Tablet PO ×2 (09:44→21:33)
[2024-05-19] MEDS: Dorzolamide HCL/Timolol 10 ml Bottle 1 DRP OPHTHALMIC ×2 (09:44→21:29)
[2024-05-19] MEDS: Potassium Chloride Oral Tablet 20 MEQ PO ×2 (09:44→17:24)
[2024-05-19] MEDS: Tamsulosin HCl 0.4 MG Capsule PO (09:44)
[2024-05-19] MEDS: DULoxetine Hcl 60 MG Capsule PO (09:44)
[2024-05-19] MEDS: Mupirocin Ointment 22gm Tube 1 APPLIC TOPICAL ×2 (09:45→21:30)
[2024-05-19] MEDS: Menthol/Lanolin/Calamine/Znox 113 GM Tube 1 APPLIC TOPICAL (09:49)
[2024-05-19] MEDS: Nystatin Powder 15gm Bottle 1 APPLIC TOPICAL (09:56)
[2024-05-19] MEDS: Tuberculin,Purif.prot.deriv. 50 TU/ML Vial 0.1 ML ID (11:35)
[2024-05-19 12:36] VITALS: BP 92/59; PULSE 88
[2024-05-19 14:24] VITALS: BP 111/74; PULSE 77; RESP 18; TEMP 36.4; O2SAT 94
[2024-05-19] MEDS: 0.9% Saline Lock 10 ML Syringe IV (17:24)
[2024-05-19] MEDS: Latanoprost 0.005% 1 Bottle 1 DRP RIGHT EYE (21:29)
[2024-05-19] MEDS: QUEtiapine 25 MG Tablet PO (21:33)
[2024-05-20] MEDS: Acetaminophen 500 MG Tablet 1000 MG PO (00:22)
[2024-05-20] MEDS: MELATONIN 3 MG TABLET PO ×2 (00:22→22:04)
[2024-05-20] MEDS: Enoxaparin 40 MG/0.4 ML Syringe SC (06:09)
[2024-05-20] MEDS: Ascorbic Acid 500 MG Tablet 1000 MG PO ×4 (06:10→22:06)
[2024-05-20] MEDS: Pramipexole Di-HCl 1 MG Tablet PO ×4 (06:10→22:06)
[2024-05-20] MEDS: CARBIDOPA/LEVODOPA CR 50/200 Tablet PO ×4 (06:11→22:05)
--- NOTE | 2024-05-20 08:30 | NURSING ---
Airline Radio Operator Note; Activity Asset: Sean Donaldson has returned for continued therapy. He remains independent in his choice of daily activities w/reminders. He has a tablet he use for everything. Mendoza has poor hear so prefers to do independent activities in his room with his tablet. His and family will bring him items he may need and visits daily. He will read the paper and welcomes visits from the molded grid and parts inspector and therapy dog when available. Staff will remind him of weekly activities and respect his right to say no.
[2024-05-20] MEDS: Fludrocortisone Acetate 0.1 MG Tablet 0.05 MG PO (09:48)
[2024-05-20] MEDS: prednisoLONE eye drops (5 mL) 1 DROP OPTH.BTL 1 DRP LEFT EYE ×2 (09:48→22:04)
[2024-05-20] MEDS: Dorzolamide HCL/Timolol 10 ml Bottle 1 DRP OPHTHALMIC ×2 (09:48→22:04)
[2024-05-20] MEDS: DULoxetine Hcl 60 MG Capsule PO (09:49)
[2024-05-20] MEDS: Tamsulosin HCl 0.4 MG Capsule PO (09:49)
[2024-05-20] MEDS: Potassium Chloride Oral Tablet 20 MEQ PO ×2 (09:49→17:34)
[2024-05-20] MEDS: dilTIAZem CD 120 MG Capsule PO (09:49)
[2024-05-20] MEDS: Memantine Hydrochloride 10 MG Tablet PO ×2 (09:49→22:07)
[2024-05-20] MEDS: Pantoprazole Sodium 40 MG Tablet PO ×2 (09:49→22:07)
[2024-05-20] MEDS: DAROLUTAMIDE 300 MG 600 MG PO (09:49)
[2024-05-20] MEDS: Senna/Docusate Sodium 1 Tablet PO ×2 (09:50→22:05)
[2024-05-20] MEDS: Menthol/Lanolin/Calamine/Znox 113 GM Tube 1 APPLIC TOPICAL ×2 (09:50→22:07)
[2024-05-20] MEDS: Mupirocin Ointment 22gm Tube 1 APPLIC TOPICAL ×2 (09:50→22:06)
[2024-05-20] MEDS: Nystatin Powder 15gm Bottle 1 APPLIC TOPICAL ×2 (09:51→22:03)
[2024-05-20 10:47] VITALS: BP 139/91; PULSE 72
[2024-05-20] MEDS: Ensure Plus High Protein 120 ML LIQUID PO ×2 (12:31→17:34)
[2024-05-20 13:24] LABS: Mucous, Urine 0 SEEN /hpf (<or=2+); Red Blood Cells-Urine 0 SEEN /hpf (0-5)
[2024-05-20 13:44] LABS: Color, Urine Yellow (Yellow); Glucose, Dipstick Normal (Normal); Ketone-Dipstick Negative (Negative); Leukocyte Esterase-Dipstick 25 /ul (Negative); Nitrite-Dipstick Negative (Negative); Occult Blood-Urine Negative /ul (Negative); Protein-Dipstick Negative (Negative); Specific Gravity, Urine 1.015 (1.002-1.030); Urine Bilirubin Dipstick Negative (Negative); Urine Clarity Clear (Clear); Urine Urobilinogen Normal (Normal)
[2024-05-20 13:56] LABS: Amorphous Sediment 2+; Bacteria 2+ /hpf (None Seen); Squamous Epithelial Cells - UA 0-5 SEEN /hpf (0-5); White Blood Cells 0-5 SEEN /hpf (0-5)
[2024-05-20 16:38] VITALS: BP 112/66; PULSE 73; RESP 16; TEMP 36.2; O2SAT 96
[2024-05-20] MEDS: QUEtiapine 25 MG Tablet PO (22:05)
[2024-05-20] MEDS: Latanoprost 0.005% 1 Bottle 1 DRP RIGHT EYE (22:05)
[2024-05-21] MEDS: Ascorbic Acid 500 MG Tablet 1000 MG PO ×4 (06:07→21:31)
[2024-05-21] MEDS: Pramipexole Di-HCl 1 MG Tablet PO ×4 (06:07→21:32)
[2024-05-21] MEDS: CARBIDOPA/LEVODOPA CR 50/200 Tablet PO ×4 (06:07→21:32)
[2024-05-21] MEDS: Enoxaparin 40 MG/0.4 ML Syringe SC (06:07)
[2024-05-21 09:23] VITALS: TEMP 36.2
[2024-05-21 09:30] VITALS: BP 97/64; PULSE 92
[2024-05-21] MEDS: Ensure Plus High Protein 120 ML LIQUID PO ×3 (09:35→16:38)
[2024-05-21] MEDS: Fludrocortisone Acetate 0.1 MG Tablet 0.05 MG PO (09:35)
[2024-05-21] MEDS: Potassium Chloride Oral Tablet 20 MEQ PO ×2 (09:37→16:37)
[2024-05-21] MEDS: Mupirocin Ointment 22gm Tube 1 APPLIC TOPICAL ×2 (09:37→21:24)
[2024-05-21] MEDS: Dorzolamide HCL/Timolol 10 ml Bottle 1 DRP OPHTHALMIC ×2 (09:38→21:25)
[2024-05-21] MEDS: Menthol/Lanolin/Calamine/Znox 113 GM Tube 1 APPLIC TOPICAL ×2 (09:38→21:26)
[2024-05-21] MEDS: Nystatin Powder 15gm Bottle 1 APPLIC TOPICAL ×2 (09:39→21:24)
[2024-05-21] MEDS: Tamsulosin HCl 0.4 MG Capsule PO (09:39)
[2024-05-21] MEDS: DULoxetine Hcl 60 MG Capsule PO (09:39)
[2024-05-21] MEDS: Memantine Hydrochloride 10 MG Tablet PO ×2 (09:39→21:32)
[2024-05-21] MEDS: prednisoLONE eye drops (5 mL) 1 DROP OPTH.BTL 1 DRP LEFT EYE ×2 (09:40→21:25)
[2024-05-21] MEDS: DAROLUTAMIDE 300 MG 600 MG PO (09:40)
[2024-05-21] MEDS: Pantoprazole Sodium 40 MG Tablet PO ×2 (09:41→21:32)
[2024-05-21] MEDS: Senna/Docusate Sodium 1 Tablet PO ×2 (09:41→21:32)
--- NOTE | 2024-05-21 11:25 | NURSING ---
Offered covid vaccine, VIS provided. and resident present in room, refusing at this time.
--- NOTE | 2024-05-21 11:41 | PCM.PN.DRR ---
Documented by User: Cholo Perera 05/21/24 12:02 TCU RX Drug Regimen Review Subjective/Objective Subjective/Objective Subjective: TCU admission note. 78 year old male with progressive Parkinson Disease was hospitalized in the PCU on 05/15/24 for a fall, closed head injury, dizziness, orthostatic hypotension, and? dehydration. He was subsequently admitted to TCU with debility and is here for rehabilitation and strengthening prior to discharge home with . Objective: Allergies lidocaine Allergy (Verified 04/17/24 12:58) Angioedema peppermint Allergy (Verified 04/17/24 12:58) Angioedema phenylephrine Allergy (Verified 04/17/24 12:58) Angioedema doxycycline Adverse Reaction (Intermediate, Verified 04/17/24 12:58) SUNBURN Current Medications Generic Name Dose Route Start Last Admin Trade Name Freq PRN Reason Stop Dose Admin Acetaminophen 1,000 mg 05/18/24 15:14 05/20/24 00:22 Acetaminophen 500 Mg Tablet PO 1,000 mg Q6H PRN PRN Administration Pain 1-10 Ascorbic Acid 1,000 mg 05/18/24 17:00 05/21/24 06:07 Ascorbic Acid 500 Mg Tablet PO 1,000 mg 0700,1200,1700,2200 FIDE Administration Calamine/Phenol 1 applic 05/18/24 22:00 05/21/24 09:38 Menthol/Lanolin/Calamine/Znox 113 Gm Tube TOPICAL 1 applic BID FIDE Administration Protocol Carbidopa/Levodopa 1 tablet 05/18/24 17:00 05/21/24 06:07 Carbidopa/Levodopa Cr 50/200 Tablet PO 1 tablet ACHS FIDE Administration Diltiazem HCl 120 mg 05/19/24 10:00 05/20/24 09:49 Diltiazem Cd 120 Mg Capsule PO 120 mg DAILY FIDE Administration Dorzolamide/Timolol 1 drp 05/18/24 22:00 05/21/24 09:38 Dorzolamide Hcl/Timolol 10 Ml Bottle OPHTHALMIC 1 drp BID FIDE Administration Duloxetine HCl 60 mg 05/19/24 10:00 05/21/24 09:39 Duloxetine Hcl 60 Mg Capsule PO 60 mg DAILY FIDE Administration Enoxaparin Sodium 40 mg 05/19/24 06:00 05/21/24 06:07 Enoxaparin 40 Mg/0.4 Ml Syringe SC 40 mg DAILY@0600 FIDE Administration Fludrocortisone Acetate 0.05 mg 05/19/24 08:00 05/21/24 09:35 Fludrocortisone Acetate 0.1 Mg Tablet PO 0.05 mg BREAKFAST FIDE Administration Latanoprost 1 drp 05/18/24 22:00 05/20/24 22:05 Latanoprost 0.005% 1 Bottle RIGHT EYE 1 drp QHS FIDE Administration Magnesium Citrate 300 ml 05/18/24 15:13 Magnesium Citrate 300 Ml PO DAILY PRN Constipation Meclizine HCl 12.5 mg 05/18/24 14:50 05/19/24 01:47 Meclizine 12.5 Mg Tablet PO 12.5 mg TID PRN PRN Administration Dizziness Melatonin 3 mg 05/18/24 14:50 05/20/24 22:04 Melatonin 3 Mg Tablet PO 3 mg QHS PRN PRN Administration Insomnia Memantine 10 mg 05/18/24 22:00 05/21/24 09:39 Memantine Hydrochloride 10 Mg Tablet PO 10 mg BID FIDE Administration Mupirocin 1 applic 05/18/24 22:00 05/21/24 09:37 Mupirocin Ointment 22gm Tube TOPICAL 1 applic BID FIDE Administration Protocol Nutritional Formula (Lactose Free) 120 ml 05/18/24 17:45 05/21/24 09:35 Ensure Plus High Protein 120 Ml Liquid PO 120 ml TIDCM FIDE Administration Nystatin 1 applic 05/18/24 22:00 05/21/24 09:39 Nystatin Powder 15gm Bottle TOPICAL 1 applic BID FIDE Administration Protocol Pantoprazole Sodium 40 mg 05/18/24 22:00 05/21/24 09:41 Pantoprazole Sodium 40 Mg Tablet PO 40 mg BID FIDE Administration Potassium Chloride 20 meq 05/18/24 17:00 05/21/24 09:37 Potassium Chloride Oral Tablet 20 Meq PO 20 meq BIDCM FIDE Administration Pramipexole Dihydrochloride 1 mg 05/18/24 17:00 05/21/24 06:07 Pramipexole Di-Hcl 1 Mg Tablet PO 1 mg 4X/DAY FIDE Administration Prednisolone Acetate 1 drp 05/18/24 22:00 05/21/24 09:40 Prednisolone Eye Drops (5 Ml) 1 Drop Opth.Btl LEFT EYE 1 drp BID FIDE Administration Quetiapine Fumarate 25 mg 05/18/24 22:00 05/20/24 22:05 Quetiapine 25 Mg Tablet PO 25 mg QHS FIDE Administration Protocol Senna/Docusate Sodium 1 tablet 05/18/24 22:00 05/21/24 09:41 Senna/Docusate Sodium 1 Tablet PO 1 tablet BID FIDE Administration Sodium Chloride 10 - 40 ml 05/18/24 15:41 05/19/24 17:24 0.9% Saline Lock 10 Ml Syringe IV 10 ml UD PRN Administration SALINE FLUSH Tamsulosin HCl 0.4 mg 05/19/24 10:00 05/21/24 09:39 Tamsulosin Hcl 0.4 Mg Capsule PO 0.4 mg DAILY FIDE Administration Tuberculin PPD 0.1 ml 05/26/24 10:00 Tuberculin,Purif.Prot.Deriv. 50 Tu/Ml Vial ID 05/26/24 10:01 X1 ONE Problem List Hypokalemia (Acute) Depression (Acute) Vitamin C deficiency (Acute) Vertigo (Acute) Dehydration (Acute) Orthostatic hypotension (Acute) Fall (Acute) Closed head injury (Acute) Parkinson's disease dementia (Acute) Glaucoma (Acute) Debility (Acute) Parkinsons disease (Acute) History of prostate cancer (Chronic) Vital Signs Temp Pulse Resp BP Pulse Ox O2 Del Method 97.1 F L 92 16 97/64 96 Room Air 05/21/24 09:23 05/21/24 09:30 05/20/24 16:38 05/21/24 09:30 05/20/24 16:38 05/21/24 09:30 Oxygen Delivery Method Room Air Weight: 82.6 kg Body Mass Index (BMI) 28.5 Sodium 140 mmol/L (136-145) 05/19/24 06:43 Potassium 3.5 mmol/L (3.5-5.1) 05/19/24 06:43 Chloride 108 mmol/L (98-107) H 05/19/24 06:43 Carbon Dioxide 26.0 mmol/L (21.0-32.0) 05/19/24 06:43 Anion Gap 6 (5-15) 05/19/24 06:43 BUN 18 mg/dL (7-18) 05/19/24 06:43 Creatinine 0.82 mg/dL (0.70-1.30) 05/19/24 06:43 Est GFR (MDRD) Af Amer 116 mL/min (>60) 05/19/24 06:43 Est GFR (MDRD) Non-Af 96 mL/min (>60) 05/19/24 06:43 BUN/Creatinine Ratio 22.0 RATIO (10-20) H 05/19/24 06:43 Glucose 102 mg/dL (74-106) 05/19/24 06:43 Assessment/Plan: 1. Pain: Acetaminophen 1000mg Q6H PRN for pain (1-10). Resident received one dose of PRN acetaminophen on 05/20 for a pain score of 2/10. Please continue to monitor for pain and PRN usage. 2. Bowel: Senna/docusate 8.6mg/50mg tablet PO BID, magnesium citrate 300mg PO daily PRN. Resident has not needed any PRN doses. Please continue to monitor for constipation and PRN usage. Last documented bowel movement was 05/17. 3. DVT Prophylaxis: Enoxaparin 40mg SC daily. Please continue to monitor for S/S of bleeding/stroke, hemoglobin (last 12.4 g/dL), and renal function (last CrCl 75.11 mL/min).? 4. Atrial Fibrillation: Diltiazem 120mg PO daily. Please continue to monitor heart rate (last 92 bpm), blood pressure (last 97/65 mmHg), AST (8 U/L), ALT (last <6 U/L), and irregular/rapid heartbeat.? 5. Parkinson?s Disease/Parkinson?s Disease Dementia: Carbidopa/levodopa 50mg/200mg, pramipexole 1mg PO 4x daily, memantine 10mg PO BID. Please continue to monitor neurological function, LFTs, renal function, and falls.? 6. Nutrition/Vitamin C Deficiency/Hypokalemia: Ensure Plus 120mL PO TID, vitamin C 1000mg PO 4x daily (0700, 1200, 1700, 2200), potassium chloride 20mEq PO BID. Thanks. Please continue to monitor potassium (last 3.5 mmol/L), irregular heartbeats, and S/S of malnutrition.? 7. Vertigo/Orthostatic Hypotension: Meclizine 12.5mg PO TID PRN, fludrocortisone 0.05mg PO daily with breakfast. Resident received one PRN dose of meclizine on 05/19. Please continue to monitor for confusion, dry mouth, and constipation (BEERs - meclizine); S/S of delerium (BEERs - fludrocortisone), and falls/fractures. 8. Gastric Ulcer: Pantoprazole 40mg PO BID. Please continue to monitor for S/S of worsening gastric ulcer, LFTs, and magnesium (last 1.8 mg/dL). 9. Prostate Cancer: Nubeqa 600mg daily. Please continue to monitor white blood cell counts (WBC = 6.5 K/mm3 on 05/19/24), for asthenia, fatigue, and liver counts (AST/ALT = 8/6 U/L on 05/16/24) 10. Glaucoma - Dorzolamide/timolol 2%/0.5% 1 gtt OU BID, latanoprost 0.005% 1 gtt OD QHS, prednisolone 1% 1 gtt Os BID. Please continue to monitor for S/S of glaucoma.? 11. Skin Irritation: mupirocin apply topically to calluses on bottom of both feet BID, Calmoseptine apply topically to buttocks BID, nystatin powder apply topically to groin BID. Please continue to monitor for skin irritation.? 12. BPH - Tamsulosin 0.4mg PO daily. Please continue to monitor for orthostatic hypotension, S/S of urinary incontinence/BPH, and falls. 13. Insomnia: Melatonin 3mg PO QHS PRN. Patient has received 3 PRN doses with the most recent being on 05/20. Please continue to monitor for PRN usage, confusion, and falls/fractures.? Assessment/Plan for indications treated with psychotropic medications: 1. Depression: Duloxetine 60mg PO daily. GDR does not seem appropriate at this time given the patient has been on this long term acute care registered nurse and is stable. Please continue to monitor for S/S of suicidal ideation (black bow warning), S/S of serotonin syndrome, S/S of depression, dizziness/fatigue, and falls/fractures (BEERs). 2. Visual Hallucinations: Quetiapine 25mg PO QHS. GDR does not seem appropriate at this time given the patient has been on this long term acute care registered nurse and is stable. Please consider getting a new lipid panel drawn as the most recent one was in 2019 and quetiapine can increase lipids. Thanks. Please continue to monitor neurological function, LFTs, TSH (last 1.240 uIU/mL; normal range), and S/S of stroke (BEERs).? Medical chart and medication regimen reviewed. The following medication irregularities or issues were identified: 1. Visual Hallucinations: Quetiapine 25mg PO QHS. Please consider getting a new lipid panel drawn as the most recent one was in 2019 and quetiapine can increase lipids. Thanks. Date Date of Note: 05/21/24 Documented by User: Dr. Tima Colindres MD 05/21/24 12:09 TCU RX Drug Regimen Review Provider Comments Provider responsibility Provider Comments to Recommendations by Pharmacy Agree
[2024-05-21] MEDS: dilTIAZem CD 120 MG Capsule PO (11:55)
[2024-05-21 11:58] VITALS: BP 112/72; PULSE 81
--- NOTE | 2024-05-21 15:42 | CASEMGMT ---
Social Work SW met with patient and for initial assessment. Introduced self and role. Pt known to this worker from previous stay. mainly answered questions as pt was drifting in/out of sleep. Confirmed DNR-CCA no intubation. SW requested provide copies of advanced directives. agreed. Educated to [facility] insurance with NRD 05/22 and continued stay is not guaranteed with each review. plans to have pt return home with her continuing to assist him. SW will continue to follow for DC planning. Tanisha Mccann ,LUIS RODRIGUEZW
--- NOTE | 2024-05-21 16:59 | NURSING ---
dr dick aware of urine culture results, below infection level. no orders
[2024-05-21] MEDS: Latanoprost 0.005% 1 Bottle 1 DRP RIGHT EYE (21:25)
[2024-05-21] MEDS: QUEtiapine 25 MG Tablet PO (21:31)
[2024-05-21] MEDS: MELATONIN 3 MG TABLET PO (21:31)
[2024-05-22] MEDS: CARBIDOPA/LEVODOPA CR 50/200 Tablet PO ×4 (06:18→21:56)
[2024-05-22] MEDS: Enoxaparin 40 MG/0.4 ML Syringe SC (06:18)
[2024-05-22] MEDS: Pramipexole Di-HCl 1 MG Tablet PO ×4 (06:19→21:55)
[2024-05-22] MEDS: Ascorbic Acid 500 MG Tablet 1000 MG PO ×4 (06:19→21:57)
[2024-05-22 06:59] LABS: Cholesterol 116 mg/dL (200); High Density Lipoprotein 30 mg/dL; Triglycerides 154 mg/dL; Very Low Density Lipoprotein 31 mg/dL (5-40)
[2024-05-22 09:30] VITALS: BP 104/65; PULSE 70; RESP 18; TEMP 36.1; O2SAT 96
[2024-05-22] MEDS: dilTIAZem CD 120 MG Capsule PO (09:59)
[2024-05-22] MEDS: Tamsulosin HCl 0.4 MG Capsule PO (09:59)
[2024-05-22] MEDS: Fludrocortisone Acetate 0.1 MG Tablet 0.05 MG PO (09:59)
[2024-05-22] MEDS: Pantoprazole Sodium 40 MG Tablet PO ×2 (09:59→21:55)
[2024-05-22] MEDS: Memantine Hydrochloride 10 MG Tablet PO ×2 (09:59→21:55)
[2024-05-22] MEDS: DULoxetine Hcl 60 MG Capsule PO (09:59)
[2024-05-22] MEDS: Potassium Chloride Oral Tablet 20 MEQ PO ×2 (10:00→17:08)
[2024-05-22] MEDS: Senna/Docusate Sodium 1 Tablet PO ×2 (10:00→21:56)
[2024-05-22] MEDS: Menthol/Lanolin/Calamine/Znox 113 GM Tube 1 APPLIC TOPICAL ×2 (10:00→22:01)
[2024-05-22] MEDS: Mupirocin Ointment 22gm Tube 1 APPLIC TOPICAL (10:00)
[2024-05-22] MEDS: Dorzolamide HCL/Timolol 10 ml Bottle 1 DRP OPHTHALMIC ×2 (10:01→21:53)
[2024-05-22] MEDS: prednisoLONE eye drops (5 mL) 1 DROP OPTH.BTL 1 DRP LEFT EYE ×2 (10:02→22:00)
[2024-05-22] MEDS: DAROLUTAMIDE 300 MG 600 MG PO (10:02)
[2024-05-22] MEDS: Ensure Plus High Protein 120 ML LIQUID PO ×3 (10:12→17:08)
[2024-05-22] MEDS: Nystatin Powder 15gm Bottle 1 APPLIC TOPICAL ×2 (10:12→22:02)
[2024-05-22 10:31] VITALS: BMI 29.0
--- NOTE | 2024-05-22 14:33 | CHAPLAIN ---
Type of Pastoral Visit ___ Initial Visit _x__ Follow-up Visit ___ On-call Visit ___ General Patient Visit ___ Spiritual Assessment ___ Family Conference ___ Bereavement ___ Rapid Response ___ Code Blue ___ Other (describe below) Pastoral Care Referral From _x__ Patient _x__ Family ___ Nurse ___ Physician ___ Tire Vulcanizer ___ Electric Arc Furnace Operator ___ Other (describe below) Sacrament/Intervention _x__ Active listening ___ Anointing ___ Taoism ___ Bereavement ___ Communion ___ Kristen exploration ___ _x__ Life review _x__ Prayer ___ Reconciliation ___ Sacrament of Sick ___ Supportive presence ___ Wedding ___ Other (describe below) Pastoral Comments patient has been seen in hospital side previously; follow up as requested; spouse and DIL are in the room and interactive; pt is mostly the one who describes how he is coping, what he is experiencing, and what he is learning about himself and treatment of others; pt is welcoming of support and prayer; conversation with family member continues as well
[2024-05-22] MEDS: QUEtiapine 25 MG Tablet PO (21:56)
[2024-05-22] MEDS: Latanoprost 0.005% 1 Bottle 1 DRP RIGHT EYE (21:57)
[2024-05-23] MEDS: Ascorbic Acid 500 MG Tablet 1000 MG PO ×4 (06:28→22:03)
[2024-05-23] MEDS: Pramipexole Di-HCl 1 MG Tablet PO ×4 (06:28→22:05)
[2024-05-23] MEDS: Enoxaparin 40 MG/0.4 ML Syringe SC (06:28)
[2024-05-23] MEDS: CARBIDOPA/LEVODOPA CR 50/200 Tablet PO ×4 (06:45→22:02)
[2024-05-23] MEDS: Ensure Plus High Protein 120 ML LIQUID PO ×3 (09:53→17:12)
[2024-05-23] MEDS: Potassium Chloride Oral Tablet 20 MEQ PO ×2 (09:58→17:12)
[2024-05-23] MEDS: Menthol/Lanolin/Calamine/Znox 113 GM Tube 1 APPLIC TOPICAL ×2 (09:59→22:05)
[2024-05-23] MEDS: dilTIAZem CD 120 MG Capsule PO (09:59)
[2024-05-23] MEDS: Dorzolamide HCL/Timolol 10 ml Bottle 1 DRP OPHTHALMIC ×2 (09:59→22:07)
[2024-05-23] MEDS: DULoxetine Hcl 60 MG Capsule PO (10:00)
[2024-05-23] MEDS: Tamsulosin HCl 0.4 MG Capsule PO (10:00)
[2024-05-23] MEDS: Nystatin Powder 15gm Bottle 1 APPLIC TOPICAL ×2 (10:00→22:04)
--- NOTE | 2024-05-23 10:00 | CASEMGMT ---
Social Work IDT met with patient and for care plan meeting. Discussed patient's progress in PT/OT/SN. Educated to [facility] insurance with NRD 05/28, EDC 06/01. Provided family with written communication on insurance process and copay coverage during stay. Pt/ goal is for pt to return home with assistance. Offered therapy training with . scheduled car tx for 05/28. Family expressed pt being home prior to 06/01 as the pt/ are celebrating with a large alliance party, their 50 wed anniversary. Family would prefer pt be home and well for that then Thanksgiving. SW took note of preference and will determine progress and readiness for DC after car tx and insurance's outcome. SW inquired about skilled HHC this DC; agreed and stated pt was using [facility] prior to admission and would like to use again. Pt has no DME needs. SW will continue to follow for DC planning. LUIS PedrozaW
[2024-05-23] MEDS: DAROLUTAMIDE 300 MG 600 MG PO (10:01)
[2024-05-23] MEDS: prednisoLONE eye drops (5 mL) 1 DROP OPTH.BTL 1 DRP LEFT EYE ×2 (10:01→22:07)
[2024-05-23] MEDS: Memantine Hydrochloride 10 MG Tablet PO ×2 (10:01→22:04)
[2024-05-23] MEDS: Pantoprazole Sodium 40 MG Tablet PO ×2 (10:02→22:02)
[2024-05-23] MEDS: Senna/Docusate Sodium 1 Tablet PO ×2 (10:02→22:02)
[2024-05-23] MEDS: Fludrocortisone Acetate 0.1 MG Tablet 0.05 MG PO (10:12)
--- NOTE | 2024-05-23 11:44 | NURSING ---
pt daughter requesting overnight pulse ox d/t ^ daytime sleepiness. message left with Dr Colindres.
--- NOTE | 2024-05-23 14:14 | CASEMGMT ---
Social Work SW was sitting at the nurse's station and responded to pt's chair alarm sounding. SW entered room and pt was standing up from recliner chair. was measly walking back into room with a cup of coffee. SW requested pt return to seated position and asked how this worker can assist him. Pt was agitated and replied, Get me out of here. I have places to go. I am going to be late. SW observed stirring coffee at bedside table, chuckling at pt's responses. SW reoriented to place and time. SW inquired about meeting basic needs - temperature, thirst, hunger, bathroom. Pt requested a snack. SW agreed and retrieved snack for pt. Tanisha Mccann MSW CHEMICAL LABORATORY CHIEF
--- NOTE | 2024-05-23 14:37 | CASEMGMT ---
Social Work BIMS () and PHQ9 (11) interviews completed on this date for MDS assessment. Pt is able to answer cognitive questions and converse with SW appropriately during assessment. As soon as assessment questions were completed pt began talking about going to the barn, forgetting his cane in the barn, and doing tasks in the barn and asking SW to assist with this. 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 Pt score of 11 on PHQ9 with indications of depression. Pt able to verbalize feelings of a lack of worth and that he wonders what his purpose is. SW engaged pt in life review. 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 Pt is following with Dr. Boss, neurology and is on multiple medications at this time. Pt does have follow up appointment with neurology. No further interventions indicated. SW will continue to follow for support. GABBIE Mondragon
--- NOTE | 2024-05-23 19:34 | NURSING ---
alarm sounding, entered room & trying to keep pt in his chair but pt determined to shell the popcorn. assisted pt x2 to bed, removed compression socks, changed drsg to Lt inner big toe. bactroban applied to old callous per order. updated on seroquel taper & overnight pulse ox tonight. alarm in place on bed for safety. pt denies needs at this time. call light in reach.
[2024-05-23] MEDS: QUEtiapine 25 MG Tablet 12.5 MG PO (22:01)
[2024-05-23] MEDS: Latanoprost 0.005% 1 Bottle 1 DRP RIGHT EYE (22:08)
[2024-05-23 22:55] VITALS: PULSE 81; O2SAT 95
[2024-05-24] MEDS: Enoxaparin 40 MG/0.4 ML Syringe SC (05:31)
[2024-05-24] MEDS: Ascorbic Acid 500 MG Tablet 1000 MG PO ×4 (05:32→20:22)
[2024-05-24] MEDS: Pramipexole Di-HCl 1 MG Tablet PO ×4 (05:32→20:21)
[2024-05-24] MEDS: CARBIDOPA/LEVODOPA CR 50/200 Tablet PO ×4 (05:33→20:22)
[2024-05-24 08:53] VITALS: BP 118/78; PULSE 82; RESP 16; TEMP 36; O2SAT 97
[2024-05-24] MEDS: Ensure Plus High Protein 120 ML LIQUID PO ×3 (08:55→17:03)
[2024-05-24] MEDS: Fludrocortisone Acetate 0.1 MG Tablet 0.05 MG PO (08:57)
[2024-05-24] MEDS: Potassium Chloride Oral Tablet 20 MEQ PO ×2 (08:57→17:04)
[2024-05-24] MEDS: Senna/Docusate Sodium 1 Tablet PO ×2 (08:58→20:18)
[2024-05-24] MEDS: Pantoprazole Sodium 40 MG Tablet PO ×2 (08:58→20:21)
[2024-05-24] MEDS: Tamsulosin HCl 0.4 MG Capsule PO (08:58)
[2024-05-24] MEDS: DAROLUTAMIDE 300 MG 600 MG PO (08:58)
[2024-05-24] MEDS: Memantine Hydrochloride 10 MG Tablet PO ×2 (08:58→20:21)
[2024-05-24] MEDS: DULoxetine Hcl 60 MG Capsule PO (08:58)
[2024-05-24] MEDS: dilTIAZem CD 120 MG Capsule PO (08:58)
[2024-05-24] MEDS: prednisoLONE eye drops (5 mL) 1 DROP OPTH.BTL 1 DRP LEFT EYE ×2 (08:59→20:19)
[2024-05-24] MEDS: Dorzolamide HCL/Timolol 10 ml Bottle 1 DRP OPHTHALMIC ×2 (08:59→20:20)
[2024-05-24] MEDS: Nystatin Powder 15gm Bottle 1 APPLIC TOPICAL ×2 (08:59→20:19)
[2024-05-24] MEDS: Menthol/Lanolin/Calamine/Znox 113 GM Tube 1 APPLIC TOPICAL ×2 (09:06→20:19)
--- NOTE | 2024-05-24 09:11 | NURSING ---
Addendum entered by Cely Abdi 05/24/24 17:59: dr dick aware of UA results, macrobid ordered Addendum entered by Cely Abdi 05/24/24 10:50: pt st cathed cloudy yellow urine 100cc sent to lab. pt tolerated well. resting in chair, legs elevated. alarm in place Original Note: grandson in to visit this AM, pt alert & oriented, pleasant. 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 meds given whole in w/out any difficulty. pt up in chair, alarm in place. call light in reach. dr dick ordered UA C/S d/t pt c/o burning with urination. last urine showed mixed contaminants.
[2024-05-24 10:39] VITALS: PULSE 61; RESP 16; O2SAT 99
[2024-05-24 11:05] LABS: Color, Urine Yellow (Yellow); Glucose, Dipstick Normal (Normal); Ketone-Dipstick 5 mg/dl (Negative); Leukocyte Esterase-Dipstick 100 /ul (Negative); Nitrite-Dipstick Negative (Negative); Occult Blood-Urine Negative /ul (Negative); Protein-Dipstick Negative (Negative); Urine Bilirubin Dipstick Negative (Negative); Urine Clarity Clear (Clear); Urine Urobilinogen Normal (Normal)
[2024-05-24 11:19] LABS: White Blood Cells 10-25 SEEN /hpf (0-5)
[2024-05-24 11:20] LABS: Bacteria 1+ /hpf (None Seen); Mucous, Urine 1+ /hpf (<or=2+); Red Blood Cells-Urine 0-5 SEEN /hpf (0-5); Squamous Epithelial Cells - UA 0-5 SEEN /hpf (0-5)
--- NOTE | 2024-05-24 14:23 | CPS ---
patient was not in room.
[2024-05-24] MEDS: Latanoprost 0.005% 1 Bottle 1 DRP RIGHT EYE (20:19)
[2024-05-24] MEDS: Nitrofurantoin Macrocrystals 100 MG Capsule PO (20:21)
[2024-05-24] MEDS: QUEtiapine 25 MG Tablet 12.5 MG PO (20:22)
[2024-05-25 06:51] LABS: Absolute Lymphocyte Count 0.82 X10^3/uL (0.83-4.51); Absolute Neutrophil Count 2.7 X10^3/uL (2.0-7.7); Basophil# 0.02 X10^3/uL; Basophil% 0.5 % (0-1); Eosinophil# 0.32 X10^3/uL; Eosinophils% 7.3 % (0-5); Hematocrit 37.2 % (40-54); Hemoglobin 11.5 g/dL (13.0-16.5); Lymphocyte # 0.82 X10^3/ul (0.83-4.51); Lymphocyte % 18.7 % (19-41); Mean Corp Hgb Conc 30.9 g/dL (32-36); Mean Corpuscular Hgb 24.9 pg (27.0-32.0); Mean Corpuscular Volume 80.7 fL (80-94); Monocyte# 0.47 X10^3/uL; Monocyte% 10.7 % (0-10); NRBC Flagged by Analyzer 0 % (0-5); Neutrophil # 2.65 X10^3/uL (2.7-7.7); Neutrophil % 60.5 % (47-70); POSITIVE MORPHOLOGY YES; Platelet Count 232 K/mm3 (150-450); RBC Distribution Width CV 21.4 % (11.6-14.6); RBC Distribution Width SD 54.2 fl (35.1-43.9); Red Blood Count 4.61 M/mm3 (4.6-6.2); White Blood Count 4.4 K/mm3 (4.4-11.0)
[2024-05-25 06:55] LABS: Anion Gap 4 (5-15); BUN 16 mg/dL (7-18); BUN/Creat Ratio 20.9 RATIO (10-20); Calcium,Total 8.7 mg/dL (8.5-10.1); Chloride 109 mmol/L (98-107); Creatinine, Serum 0.77 mg/dL (0.70-1.30); EST Glomerular Filtration Rate 104 mL/min (>60); Est Glom Filt Rate - Afr Amer 126 mL/min (>60); Estimated Creatinine Clearance 77.64 ml/min; Glucose 84 mg/dL (74-106); Sodium Level 140 mmol/L (136-145)
[2024-05-25] MEDS: Pramipexole Di-HCl 1 MG Tablet PO ×4 (07:01→20:23)
[2024-05-25] MEDS: Enoxaparin 40 MG/0.4 ML Syringe SC (07:01)
[2024-05-25] MEDS: Ascorbic Acid 500 MG Tablet 1000 MG PO ×4 (07:01→20:23)
[2024-05-25] MEDS: CARBIDOPA/LEVODOPA CR 50/200 Tablet PO ×4 (07:01→20:23)
[2024-05-25 07:24] LABS: Differential Indicated SCAN CRITERIA MET
[2024-05-25 08:22] VITALS: BP 124/80; PULSE 88; RESP 16; TEMP 36.3; O2SAT 95
[2024-05-25] MEDS: Ensure Plus High Protein 120 ML LIQUID PO ×3 (08:24→17:26)
[2024-05-25] MEDS: Fludrocortisone Acetate 0.1 MG Tablet 0.05 MG PO (08:25)
[2024-05-25] MEDS: Potassium Chloride Oral Tablet 20 MEQ PO ×2 (08:25→17:26)
[2024-05-25] MEDS: Menthol/Lanolin/Calamine/Znox 113 GM Tube 1 APPLIC TOPICAL ×2 (08:25→20:17)
[2024-05-25] MEDS: Dorzolamide HCL/Timolol 10 ml Bottle 1 DRP OPHTHALMIC ×2 (08:26→20:17)
[2024-05-25] MEDS: dilTIAZem CD 120 MG Capsule PO (08:26)
[2024-05-25] MEDS: Tamsulosin HCl 0.4 MG Capsule PO (08:27)
[2024-05-25] MEDS: DULoxetine Hcl 60 MG Capsule PO (08:27)
[2024-05-25] MEDS: Nystatin Powder 15gm Bottle 1 APPLIC TOPICAL ×2 (08:27→20:17)
[2024-05-25] MEDS: Nitrofurantoin Macrocrystals 100 MG Capsule PO ×2 (08:27→20:24)
[2024-05-25] MEDS: Memantine Hydrochloride 10 MG Tablet PO ×2 (08:27→20:23)
[2024-05-25] MEDS: DAROLUTAMIDE 300 MG 600 MG PO (08:28)
[2024-05-25] MEDS: prednisoLONE eye drops (5 mL) 1 DROP OPTH.BTL 1 DRP LEFT EYE ×2 (08:28→20:19)
[2024-05-25] MEDS: Pantoprazole Sodium 40 MG Tablet PO ×2 (08:29→20:23)
[2024-05-25] MEDS: Senna/Docusate Sodium 1 Tablet PO (08:29)
[2024-05-25 08:40] LABS: Anisocytosis 1+
--- NOTE | 2024-05-25 10:36 | NURSING ---
Patient incontinent of stool. Patient states he does not want PM dose. window systems administrator charted against in SEP.
--- NOTE | 2024-05-25 13:31 | CPS ---
DID NOT WANT TO DO IS
[2024-05-25 20:20] VITALS: RESP 18
[2024-05-25] MEDS: Latanoprost 0.005% 1 Bottle 1 DRP RIGHT EYE (20:22)
[2024-05-25] MEDS: QUEtiapine 25 MG Tablet 12.5 MG PO (20:23)
[2024-05-26] MEDS: Enoxaparin 40 MG/0.4 ML Syringe SC (06:46)
[2024-05-26] MEDS: Ascorbic Acid 500 MG Tablet 1000 MG PO ×2 (06:46→13:43)
[2024-05-26] MEDS: CARBIDOPA/LEVODOPA CR 50/200 Tablet PO ×2 (06:47→11:35)
[2024-05-26] MEDS: Pramipexole Di-HCl 1 MG Tablet PO ×2 (06:47→13:43)
[2024-05-26 07:54] VITALS: BP 147/90; PULSE 84; RESP 18; TEMP 36.7; O2SAT 95
[2024-05-26] MEDS: Ensure Plus High Protein 120 ML LIQUID PO ×2 (07:56→13:43)
[2024-05-26] MEDS: Dorzolamide HCL/Timolol 10 ml Bottle 1 DRP OPHTHALMIC (07:57)
[2024-05-26] MEDS: prednisoLONE eye drops (5 mL) 1 DROP OPTH.BTL 1 DRP LEFT EYE (07:58)
[2024-05-26] MEDS: DAROLUTAMIDE 300 MG 600 MG PO (07:58)
[2024-05-26] MEDS: DULoxetine Hcl 60 MG Capsule PO (07:59)
[2024-05-26] MEDS: Tamsulosin HCl 0.4 MG Capsule PO (07:59)
[2024-05-26] MEDS: Nitrofurantoin Macrocrystals 100 MG Capsule PO (07:59)
[2024-05-26] MEDS: Potassium Chloride Oral Tablet 20 MEQ PO (08:01)
[2024-05-26] MEDS: dilTIAZem CD 120 MG Capsule PO (08:01)
[2024-05-26] MEDS: Pantoprazole Sodium 40 MG Tablet PO (08:01)
[2024-05-26] MEDS: Fludrocortisone Acetate 0.1 MG Tablet 0.05 MG PO (08:01)
[2024-05-26] MEDS: Memantine Hydrochloride 10 MG Tablet PO (08:02)
[2024-05-26] MEDS: Nystatin Powder 15gm Bottle 1 APPLIC TOPICAL (08:07)
[2024-05-26] MEDS: Menthol/Lanolin/Calamine/Znox 113 GM Tube 1 APPLIC TOPICAL (08:07)
[2024-05-26] MEDS: Acetaminophen 500 MG Tablet 1000 MG PO (09:27)
--- NOTE | 2024-05-26 14:23 | NURSING ---
Patient c/o urinary retention this shift. Patient bladder scanned for 550ml. Nursing staff unable to complete straight cath and/or place chavarria catheter after several attempts. Patient is dribbling and did have a large episode of incontinence, however patient unable empty bladder. Patient's bladder scan after incontinence was 458ml. Call placed to Dr. Colindres. Update given. New orders received to contact urology and if unable to come place chavarria catheter send patient to ER. Reviewed urine culture with Dr. Colindres. Urology unable to see patient. Report called to ER nurse, Jorden. Patient exited the unit at 1415.
--- NOTE | 2024-05-27 10:22 | DS.PCM_ITS ---
Providers Date of Admission: 05/18/24 Primary Care Physician: Dr. Masoud Rosa MD Reason For Visit: FALLS & DIZZINESS Diagnosis Discharge Diagnosis (1) Debility: Status: Acute Code(s): R53.81 - Other malaise (2) Fall: Status: Resolved Code(s): W19.XXXA - Unspecified fall, initial encounter (3) Closed head injury: Status: Resolved Code(s): S09.90XA - Unspecified injury of head, initial encounter (4) Orthostatic hypotension: Status: Acute Code(s): I95.1 - Orthostatic hypotension (5) Dehydration: Status: Acute Code(s): E86.0 - Dehydration (6) Vertigo: Status: Acute Code(s): R42 - Dizziness and giddiness (7) Gastric ulcer: Status: Resolved Code(s): K25.9 - Gastric ulcer, unspecified as acute or chronic, without hemorrhage or perforation (8) Parkinsons disease: Status: Acute Code(s): G20 - Parkinson's disease Qualifiers: Dyskinesia presence: unspecified whether dyskinesia Fluctuating manifestations: with fluctuating manifestations Qualified Code(s): G20.A2 - Parkinson's disease without dyskinesia, with fluctuations (9) Vitamin C deficiency: Status: Acute Code(s): E54 - Ascorbic acid deficiency (10) History of prostate cancer: Status: Chronic Code(s): Z85.46 - Personal history of malignant neoplasm of prostate (11) Atrial fibrillation: Status: Inactive Code(s): I48.91 - Unspecified atrial fibrillation (12) Glaucoma: Status: Acute Code(s): H40.9 - Unspecified glaucoma (13) Parkinson's disease dementia: Status: Acute Code(s): G20.A1 - Parkinson's disease without dyskinesia, without mention of fluctuations; F02.80 - Dementia in other diseases classified elsewhere, unspecified severity, without behavioral disturbance, psychotic disturbance, mood disturbance, and anxiety (14) Depression: Status: Acute Code(s): F32.A - Depression, unspecified (15) Hypokalemia: Status: Acute Code(s): E87.6 - Hypokalemia Plan 78 year old male with below past medical history significant for progressive Parkinson Disease, hospitalized for fall, closed head injury, dizziness, orthostatic hypotension, dehydration, admitted to TCU with debility, here for rehabilitation, strengthening, prior to discharge home with . * Debility - PT/OT. * Pain - Tylenol 1000mg q6 prn pain (1-10). * Bowel - senna/colace 1 tablet bid, Magnesium citrate 300mL po daily prn * Adult immunization - Administer pneumonia vaccine, covid vaccine, flu vaccine as appropriate. * DVT prophylaxis - Lovenox 40mg sc daily. * Vitamin C deficiency - Vitamin C 1000mg q6. * Parkinson Disease - Sinemet 50/200mg 4x/day, Mirapex 1mg 4x/day. * Prostate cancer - Nubeqa 600mg daily. * Atrial fibrillation - Diltiazem 120mg daily. * Glaucoma - Cosopt 1-2 gtt ou bid, Latanoprost 1gtt od qhs, Prednisolone 1gtt os q12. * Depression - Duloxetine 60mg daily, stable chronic correction use, GDR not recommended. * Nutrition - Ensure Plus 120mL po tidcm. * Orthostatic hypotension - Florinef 0.05mg po breakfast. * Vertigo - Meclizine 12.5mg tid prn. * Insomnia - Melatonin 3mg qhs prn. * Parkinson Disease Dementia - Memantine 10mg bid. * Skin irritation - Mupirocin topical bid. * Gastric ulcer - Pantoprazole 40mg bid. * Hypokalemia - KCL 20meq bid. * Visual hallucinations - Seroquel 25mg qhs, stable chronic medical terminologist use, GDR not recommended. * BPH - Tamsulosin 0.4mg daily. Medications at Discharge Home Medications carbidopa ER 50 mg-levodopa 200 mg tablet,extended release 1 tablet PO 4X/DAY parkinsons 09/25/20 dorzolamide 22.3 mg-timolol 6.8 mg/mL eye drops 1 - 2 drp ophthalmic (eye) BID glaucoma 09/25/20 prednisolone acetate 1 % eye drops,suspension 1 drp LEFT EYE Q12H vision 11/13/20 latanoprost 0.005 % eye drops 1 drp RIGHT EYE QHS eye he 09/10/21 memantine 10 mg tablet 10 mg PO BID MEMORY 09/10/21 tamsulosin 0.4 mg capsule 0.4 mg PO DAILY prostate 03/14/23 inhalational spacing device (Space Chamber) #1 ea 08/08/23 potassium chloride 20 mEq tablet,extended release(part/cryst) 20 meq PO BIDCM Supplement #60 tabs 11/17/23 diltiazem HCl 120 mg capsule,24 hr,extended release See Rx Instructions .Route .COMPLEX heart #90 CAPSULES 02/01/24 ascorbic acid (vitamin C) 1,000 mg tablet 1 g PO Q6H Supplement 02/04/24 darolutamide 300 mg tablet (Nubeqa) 600 mg PO DAILY Prostate 02/04/24 duloxetine 60 mg capsule,delayed release 60 mg PO QDAY Mood 02/04/24 mupirocin 2 % topical ointment 1 applic topical BID Skin 02/22/24 pramipexole 1 mg tablet 1 mg PO 4X/DAY Restless Leg 02/22/24 pantoprazole 40 mg tablet,delayed release 40 mg PO BID stomach 30 days #60 tabs 03/06/24 acetaminophen 325 mg tablet 650 mg (2 x 325 mg) PO Q6H PRN PRN Pain 1-10 #0 tabs 05/18/24 fludrocortisone 0.1 mg tablet 0.05 mg (1/2 x 0.1 mg) PO BREAKFAST orthostatic hypotension #0 tabs 05/18/24 food supplemt, lactose-reduced 0.08 gram-1.5 kcal/mL oral liquid (Ensure Plus High Protein) 120 ml PO TIDCM supplement #0 mL 05/18/24 meclizine 12.5 mg tablet 12.5 mg PO TID PRN PRN Dizziness #0 tabs 05/18/24 melatonin 3 mg tablet 3 mg PO QHS PRN PRN Insomnia #0 tabs 05/18/24 quetiapine 25 mg tablet 25 mg PO QHS confusion, hallucinations #0 tabs 05/18/24 Hospital Course Operations None Procedures None Summary of Care Provided Minutes Spent on Discharge: 15 Hospital Course: 78 year old male with below past medical history significant for progressive Parkinson Disease, hospitalized for fall, closed head injury, dizziness, orthostatic hypotension, dehydration, admitted to TCU with debility, here for rehabilitation, strengthening, prior to discharge home with . 05/26/2024 Resident developed urinary retention, bladderscan > 500mL, 3 attempts by nursing staff/nursing telephone instrument supervisor unsuccessful. Urology unavailable. Discharge to [facility] ED 05/26/2024 for evaluation, admisson to hospital. Weight / BMI Weight Weight: 84.141 kg Body Mass Index (BMI) 29.0 ABG / Lab / Microbiology Data 05/25/24 05:37 05/25/24 05:37 Microbiology: Microbiology 05/24/24 10:30 Urine Catheter - Catheter Urine Culture - Final Pseudomonas aeruginosa 05/25/24 06:00 Nasal Secretion SARS-CoV-2 Antigen (Rapid) - Final 05/20/24 12:00 Urine, Clean Catch Urine Culture - Final Meth. resistant Staph. aureus Mixed Gram Positive Organisms D/C Instructions Discharge Diet: No restrictions Discharge Activity: Return to Normal Activity, May Shower and Use Walker Call your doctor if you observe: Fever of 101 or Higher, Inability to urinate, Inability to have a bowel movement, Shortness of breath, Dizziness, Fainting spells, Swelling in the ankles, Chest pain and Uncontrolled pain DC O2, CPAP, BIPAP Needs PSN CPAP & BiPAP: BiPAP & CPAP Settings per PSN Fraction of Inspired Oxygen ( 21 05/23/24 22:55 FIO2) Additional Home O2 Discharge instructions: No DC home with Oxygen: No Meaningful Use Info Meaningful Use Meaningful Use Diagnoses (Choose all that apply): None applicable Ischemic Stroke Statin Dosing Therapy Reference: STATIN DOSE THERAPY REFERENCE: * Patients > 75 years receive moderate or high dose statin therapy. * Patients 75 years or YOUNGER should receive HIGH intensity statin dose unless contraindicated. You will be required to document reason for non-treatment if statin daily dose does not meet guidelines. HIGH DOSE STATIN THERAPY DAILY Atorvastatin > than or = to 40 mg Rosuvastatin > than or = to 20 mg Amlodipine + Atorvastatin > than or = to 2.5/40 mg Ezetimibe + Simvastatin 10/80 mg Simvastatin 80mg Discharge Plan Admission Admit Date/Time: 05/18/24 14:30 Primary Reason for Your Visit: Debility. Attending Provider: Tima Colindres Chi Primary Care Provider: Masoud Rosa Instructions Additional Instructions / Restrictions: Discharge to [facility] ED 05/26/2024 for evaluation, admisson to hospital. Discharge Orders/Prescriptions Prescriptions: No Action carbidopa-levodopa 50-200 mg tablet extended release 1 tablet PO 4X/DAY Patient Comments: verified with -pt only takes 1 of this strength 4x/day Rx Instructions: TAKE 1 IN THE MORNING, 1 AT LUNCH, 1 IN THE EVENING, AND 1 AT BEDTIME dorzolamide-timolol 22.3-6.8 mg/mL drops 1 - 2 drp OPHTHALMIC BID tamsulosin 0.4 mg capsule 0.4 mg PO DAILY ascorbic acid (vitamin C) 1,000 mg tablet 1 g PO Q6H duloxetine 60 mg capsule,delayed release(DR/EC) 60 mg PO QDAY Nubeqa 300 mg tablet 600 mg PO DAILY Patient Comments: PT FAMILY AWARE THEY WILL HAVE TO BRING MED FROM HOME prednisolone acetate 1 % drops,suspension 1 drp LEFT EYE Q12H latanoprost 0.005 % drops 1 drp RIGHT EYE QHS memantine 10 mg tablet 10 mg PO BID (DME) Space Chamber Spacer See Rx Instructions .Route Qty: 1 0RF Rx Instructions: As directed acetaminophen 325 mg Tablet 650 mg PO Q6H PRN PRN (Reason: Pain 1-10) Qty: 0 0RF quetiapine 25 mg Tablet 25 mg PO QHS Qty: 0 0RF meclizine 12.5 mg Tablet 12.5 mg PO TID PRN PRN (Reason: Dizziness) Qty: 0 0RF melatonin 3 mg Tablet 3 mg PO QHS PRN PRN (Reason: Insomnia) Qty: 0 0RF fludrocortisone 0.1 mg Tablet 0.05 mg PO BREAKFAST Qty: 0 0RF Ensure Plus High Protein 0.08 gram-1.5 kcal/mL Liquid 120 ml PO TIDCM Qty: 0 0RF potassium chloride 20 mEq Tablet,Er Particles/Crystals 20 meq PO BIDCM Qty: 60 0RF mupirocin 2 % ointment 1 applic topical BID pramipexole 1 mg tablet 1 mg PO 4X/DAY Rx Instructions: TAKE IN THE MORNING, AT LUNCH, IN THE EVENING, AND AT BEDTIME pantoprazole 40 mg tablet,delayed release (DR/EC) 40 mg PO BID 30 Days Qty: 60 0RF diltiazem HCl 120 mg capsule,extended release 24 hr See Rx Instructions .ROUTE .COMPLEX Qty: 90 3RF Dose Instruction: take 1 capsule by mouth once daily Rx Instructions: take 1 capsule by mouth once daily Referrals / Follow Up: Masoud Rosa MD [Primary Care Provider] - Disposition Disposition (needs filled in before D/C Order can be placed): [facility]
--- NOTE | 2024-05-29 09:50 | MDS.RN ---
Information for the MDS was obtained from review of the clinical record, interview of resident, staff, and direct observation of resident?s care.
== END 2024-05-26 16:17 | disposition short-term general hospital (02) | DRG 949 ==
PROVIDERS: Admitting Provider Family Medicine Geriatric Medicine; PCP Family Medicine; Referring Provider Family Medicine Geriatric Medicine; Visit Provider Family Medicine Geriatric Medicine
DX: S09.90XD Unspecified injury of head, subsequent encounter (principal); I48.19 Other persistent atrial fibrillation; N39.0 Urinary tract infection, site not specified; C61 Malignant neoplasm of prostate; G20.A2 Parkinson's disease without dyskinesia, with fluctuations; F02.80 Dementia in other diseases classified elsewhere, unspecified severity, without behavioral disturbance, psychotic disturbance, mood disturbance, and anxiety; F32.A Depression, unspecified; K25.9 Gastric ulcer, unspecified as acute or chronic, without hemorrhage or perforation; E87.6 Hypokalemia; I95.1 Orthostatic hypotension; W19.XXXD Unspecified fall, subsequent encounter; H40.9 Unspecified glaucoma; N40.1 Benign prostatic hyperplasia with lower urinary tract symptoms; Z79.899 Other long term (current) drug therapy; R33.8 Other retention of urine
CPT/HCPCS: 36415; 80048; 80061; 81001; 85025; 87077; 87086; 87088; 87184; 87186; 87811; 92526; 92610; 94667; 94762; 97110; 97116; 97163; 97165; 97530; 97535; 97802; A4216

== ENCOUNTER 2024-05-26 14:19 | Emergency (ER) | payer MEDICARE, SELFPAY ==
[2024-05-26 14:22] VITALS: BP 136/94; PULSE 83; RESP 14; TEMP 36.8; O2SAT 98; BMI 31.4
[2024-05-26 14:24] VITALS: BP 136/94; PULSE 83; RESP 14; TEMP 36.8; O2SAT 98
--- NOTE | 2024-05-26 14:38 | EDS_ITS ---
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 He states otherwise he feels okay but feels like he needs to urinate. He denies any other abdominal pain or nausea/vomiting or pain in his low back that is new. He states last time he urinated well was earlier yesterday. [facility] Medical History MRSA (methicillin resistant staph aureus) culture positive BPH (benign prostatic hyperplasia) Anxiety Depression Non-smoker History of Parkinson disease GI bleed Ambulatory dysfunction Wound of left foot Mitral valve insufficiency Lower extremity edema History of blistering sunburn Non-pressure chronic ulcer of left calf with fat layer exposed Obstructive uropathy Bladder stone Urethral stricture Urinary retention Parkinsons disease Chronic radiation cystitis History of prostate cancer DVT (deep venous thrombosis) Bladder outflow obstruction Hypertension Persistent atrial fibrillation Cardiomyopathy in other diseases classified elsewhere Other secondary pulmonary hypertension Home Medications ?Medication ?Instructions ?Recorded ?Last Taken ?Type carbidopa ER 50 mg-levodopa 200 mg 1 tablet PO 4X/DAY parkinsons 09/25/20 05/18/24 History tablet,extended release dorzolamide 22.3 mg-timolol 6.8 1 - 2 drp ophthalmic (eye) BID 09/25/20 05/18/24 History mg/mL eye drops glaucoma prednisolone acetate 1 % eye 1 drp LEFT EYE Q12H vision 11/13/20 05/14/24 History drops,suspension latanoprost 0.005 % eye drops 1 drp RIGHT EYE QHS eye he 09/10/21 05/17/24 History memantine 10 mg tablet 10 mg PO BID MEMORY 09/10/21 05/18/24 History tamsulosin 0.4 mg capsule 0.4 mg PO DAILY prostate 03/14/23 05/18/24 History inhalational spacing device (Space #1 ea 08/08/23 Unknown Rx Chamber) potassium chloride 20 mEq 20 meq PO BIDCM Supplement #60 tabs 11/17/23 05/14/24 Rx tablet,extended release(part/cryst) diltiazem HCl 120 mg capsule,24 See Rx Instructions .Route 02/01/24 05/15/24 Rx hr,extended release .COMPLEX heart #90 CAPSULES ascorbic acid (vitamin C) 1,000 mg 1 g PO Q6H Supplement 02/04/24 05/14/24 History tablet darolutamide 300 mg tablet (Nubeqa) 600 mg PO DAILY Prostate 02/04/24 05/17/24 History duloxetine 60 mg capsule,delayed 60 mg PO QDAY Mood 02/04/24 05/18/24 History release mupirocin 2 % topical ointment 1 applic topical BID Skin 02/22/24 02/21/24 History pramipexole 1 mg tablet 1 mg PO 4X/DAY Restless Leg 02/22/24 05/18/24 History pantoprazole 40 mg tablet,delayed 40 mg PO BID stomach 30 days #60 03/06/24 05/18/24 Rx release tabs acetaminophen 325 mg tablet 650 mg (2 x 325 mg) PO Q6H PRN PRN 05/18/24 05/16/24 Rx Pain 1-10 #0 tabs fludrocortisone 0.1 mg tablet 0.05 mg (1/2 x 0.1 mg) PO 05/18/24 05/18/24 Rx BREAKFAST orthostatic hypotension #0 tabs food supplemt, lactose-reduced 120 ml PO TIDCM supplement #0 mL 05/18/24 05/18/24 Rx 0.08 gram-1.5 kcal/mL oral liquid (Ensure Plus High Protein) meclizine 12.5 mg tablet 12.5 mg PO TID PRN PRN Dizziness 05/18/24 Unknown Rx #0 tabs melatonin 3 mg tablet 3 mg PO QHS PRN PRN Insomnia #0 05/18/24 05/16/24 Rx tabs quetiapine 25 mg tablet 25 mg PO QHS confusion, 05/18/24 05/17/24 Rx hallucinations #0 tabs Allergy/AdvReac Type Severity Reaction Status Date / Time lidocaine Allergy Angioedema Verified 05/26/24 14:26 peppermint Allergy Angioedema Verified 05/26/24 14:26 phenylephrine Allergy Angioedema Verified 05/26/24 14:26 doxycycline AdvReac Intermediate SUNBURN Verified 05/26/24 14:26 Family History Brother Atrial fibrillation Hypertension Mother Heart disease CAD (coronary artery disease) Myocardial infarction Hypertension Heart failure Father Heart disease Colon cancer Ruptured aortic aneurysm Surgical History History of incision and drainage (~09/2021) History of cataract extraction History of hernia repair Social History household members: spouse Smoking Status: Never smoker alcohol intake: never substance use type: does not use caffeine: Yes Type: carbonated beverages Number of servings: 1 ROS ROS ED Constitutional Constitutional ED: Denies chills or fever(s) Eyes Eyes: Denies change in vision or diplopia ENT ENT ED: Denies rhinorrhea or sore throat Cardiovascular Cardiovascular: Denies chest pain or palpitations Respiratory/Chest Respiratory/Chest: Denies cough or dyspnea Gastrointestinal Gastrointestinal: Denies abdominal pain, diarrhea, nausea or vomiting Genitourinary Genitourinary ED: Reports as per HPI, burning urination, difficulty urinating, dribbling and dysuria; Denies hematuria or low back pain Musculoskeletal Musculoskeletal: Denies back pain or neck pain Integumentary Denies abscess or rash Neurologic Neurologic: Reports as per HPI; Denies headache(s), paresthesias or weakness Psychiatric Psychiatric: Reports as per HPI and hallucinations; Denies anxiety or suicidal thoughts EXAM Physical Exam Const Vital Signs: 05/26/24 14:22 05/26/24 14:24 Temperature 98.2 F 98.2 F Temperature Source Oral Oral Pulse Rate 83 83 Respiratory Rate 14 14 Blood Pressure 136/94 H 136/94 H Blood Pressure Mean 108 108 Pulse Ox 98 98 Oxygen Delivery Method Room Air Room Air Positive well nourished and well developed General Appearance ED: well developed and NAD HEENT Reports moist mucous membranes normocephalic and atraumatic Eyes PERRL and EOMs intact bilaterally Neck full ROM and supple Resp normal respiratory effort and clear to auscultation bilaterally Cardio regular rate, regular rhythm and no murmurs GI non-distended GI Narrative: Mild suprapubic tenderness and fullness otherwise benign abdomen. No guarding or rebound. Auscultation: normoactive bowel sounds Palpation: soft no CVA tenderness Back/Spine no CVA tenderness General Back: other FROM Extremity normal to inspection General Extremety ED: Negative for edema, pulses abnormal or tenderness General Extremity: Negative for edema or pulses abnormal Neuro oriented x3, CN's II-XII intact bilaterally and no sensory deficits noted Sensorium / Orientation: awake and alert Motor Exam: general weakness Skin no rashes or lesions noted and no wounds MDM MDM MDM Narrative Medical decision making narrative: We have no one on-call for unassigned urology with the patient is established with Dr. Prather, I was able to discuss with him, however he is not in town or available to help with this patient today. Patient has a history of angioedema as a reaction to lidocaine, so for that reason we were not able to safely pretreat the patient with Uro-Jet. [address] a coud? catheter, both failed. The third and fourth attempted together with 3 other variations in Somers catheters, all unsuccessful. Patient tolerated well, no complications. Of note, nursing did place urethral lidocaine because we discussed it before I looked at his chart and saw that he had it in his list of allergies so was not ordered, however the patient had no adverse reactions. For the 40 minutes after giving it I asked him multiple times if he had felt any lightheadedness, tongue or throat swelling/tightness and he said no. Vital signs remain normal, no adverse reactions. I discussed case briefly with Dr. Pagan, emergency medicine at [facility] Where the patient has been before for this, with the goal to get a Somers catheter with urology consult and to be discharged back to TCU here in [place]. I reviewed his labs, they are normal he is not septic, his vital signs are normal clinically he is well-appearing. We did get a dose of Zosyn into him. Lab Data Attestation: I reviewed the patient's lab results. Labs: Laboratory Results - last 24 hr 05/26/24 14:35 WBC 5.6 RBC 5.00 Hgb 12.1 L Hct 39.3 L MCV 78.6 L MCH 24.2 L MCHC 30.8 L RDW Std Deviation 55.3 H RDW Coeff of Manuela 20.8 H Plt Count 208 MPV 10.6 Immature Gran % (Auto) 2.300 H Neut % (Auto) 71.2 H Lymph % (Auto) 10.[address] % (Auto) 10.8 H Eos % (Auto) 4.4 Baso % (Auto) 0.7 Absolute Neuts (auto) 4.0 Absolute Lymphs (auto) 0.60 L Nucleated RBC % 0 Sodium 142 Potassium 4.4 Chloride 110 H Carbon Dioxide 28.0 Anion Gap 5 BUN 23 H Creatinine 0.84 Estim Creat Clear Calc 76.79 Est GFR (MDRD) Af Amer 114 Est GFR (MDRD) Non-Af 94 BUN/Creatinine Ratio 27.5 H Glucose 121 H Calcium 8.3 L Management Discussion w/another healthcare provider: [employer] Journalist (merari -not available) Discharge Plan Triage Chief Complaint: Complaint ED Provider: Jose Sunshine Dx/Rx/DC Orders Clinical Impression: Acute urinary retention, Urinary tract infection due to Pseudomonas aeruginosa Prescriptions: No Action carbidopa-levodopa 50-200 mg tablet extended release 1 tablet PO 4X/DAY Patient Comments: verified with -pt only takes 1 of this strength 4x/day Rx Instructions: TAKE 1 IN THE MORNING, 1 AT LUNCH, 1 IN THE EVENING, AND 1 AT BEDTIME dorzolamide-timolol 22.3-6.8 mg/mL drops 1 - 2 drp OPHTHALMIC BID tamsulosin 0.4 mg capsule 0.4 mg PO DAILY ascorbic acid (vitamin C) 1,000 mg tablet 1 g PO Q6H duloxetine 60 mg capsule,delayed release(DR/EC) 60 mg PO QDAY Nubeqa 300 mg tablet 600 mg PO DAILY Patient Comments: PT FAMILY AWARE THEY WILL HAVE TO BRING MED FROM HOME prednisolone acetate 1 % drops,suspension 1 drp LEFT EYE Q12H latanoprost 0.005 % drops 1 drp RIGHT EYE QHS memantine 10 mg tablet 10 mg PO BID (DME) Space Chamber Spacer See Rx Instructions .Route Qty: 1 0RF Rx Instructions: As directed acetaminophen 325 mg Tablet 650 mg PO Q6H PRN PRN (Reason: Pain 1-10) Qty: 0 0RF quetiapine 25 mg Tablet 25 mg PO QHS Qty: 0 0RF meclizine 12.5 mg Tablet 12.5 mg PO TID PRN PRN (Reason: Dizziness) Qty: 0 0RF melatonin 3 mg Tablet 3 mg PO QHS PRN PRN (Reason: Insomnia) Qty: 0 0RF fludrocortisone 0.1 mg Tablet 0.05 mg PO BREAKFAST Qty: 0 0RF Ensure Plus High Protein 0.08 gram-1.5 kcal/mL Liquid 120 ml PO TIDCM Qty: 0 0RF potassium chloride 20 mEq Tablet,Er Particles/Crystals 20 meq PO BIDCM Qty: 60 0RF mupirocin 2 % ointment 1 applic topical BID pramipexole 1 mg tablet 1 mg PO 4X/DAY Rx Instructions: TAKE IN THE MORNING, AT LUNCH, IN THE EVENING, AND AT BEDTIME pantoprazole 40 mg tablet,delayed release (DR/EC) 40 mg PO BID 30 Days Qty: 60 0RF diltiazem HCl 120 mg capsule,extended release 24 hr See Rx Instructions .ROUTE .COMPLEX Qty: 90 3RF Dose Instruction: take 1 capsule by mouth once daily Rx Instructions: take 1 capsule by mouth once daily Primary Care Provider: Masoud Rosa Referrals: aMsoud Rosa MD [Primary Care Provider] - Print Language: Irish Disposition Disposition: Acute Care Hospital Discharge Location: [facility]
[2024-05-26 14:51] LABS: Basophil# 0.04 X10^3/uL; Basophil% 0.7 % (0-1); Eosinophil# 0.25 X10^3/uL; Eosinophils% 4.4 % (0-5); Hematocrit 39.3 % (40-54); Hemoglobin 12.1 g/dL (13.0-16.5); Lymphocyte % 10.6 % (19-41); Mean Corp Hgb Conc 30.8 g/dL (32-36); Mean Corpuscular Hgb 24.2 pg (27.0-32.0); Mean Corpuscular Volume 78.6 fL (80-94); Mean Platelet Vol. 10.6 fl (6.2-12.0); Monocyte# 0.61 X10^3/uL; Monocyte% 10.8 % (0-10); NRBC Flagged by Analyzer 0 % (0-5); Neutrophil # 4.01 X10^3/uL (2.7-7.7); Neutrophil % 71.2 % (47-70); POSITIVE DIFFERENTIAL YES; POSITIVE MORPHOLOGY YES; Platelet Count 208 K/mm3 (150-450); RBC Distribution Width CV 20.8 % (11.6-14.6); RBC Distribution Width SD 55.3 fl (35.1-43.9); White Blood Count 5.6 K/mm3 (4.4-11.0)
[2024-05-26 15:01] LABS: Differential Indicated SCAN CRITERIA MET
[2024-05-26 15:03] LABS: Anion Gap 5 (5-15); BUN 23 mg/dL (7-18); BUN/Creat Ratio 27.5 RATIO (10-20); Calcium,Total 8.3 mg/dL (8.5-10.1); Chloride 110 mmol/L (98-107); Creatinine, Serum 0.84 mg/dL (0.70-1.30); EST Glomerular Filtration Rate 94 mL/min (>60); Est Glom Filt Rate - Afr Amer 114 mL/min (>60); Estimated Creatinine Clearance 76.79 ml/min; Glucose 121 mg/dL (74-106); Potassium 4.4 mmol/L (3.5-5.1); Sodium Level 142 mmol/L (136-145)
[2024-05-26] MEDS: Piperacil/Tazobactam 3.375 GM in 0.9% Normal Saline (50mL MB+) 50 ML IV (15:12)
[2024-05-26 15:24] VITALS: BP 147/78; PULSE 81; RESP 19; TEMP 36.5; O2SAT 97
[2024-05-26 15:51] LABS: Differential Comment SCANNED
[2024-05-26 15:52] LABS: Anisocytosis 1+; Lactic Acid 1.9 mmol/L (0.4-1.9); Red Cell Morphology N CHROM NORMAL (NORM C&C)
[2024-05-26 15:53] LABS: Ovalocyte 1+
[2024-05-26 16:00] VITALS: BP 121/79; PULSE 79; RESP 20; TEMP 36.6; O2SAT 97
--- NOTE | 2024-05-26 16:15 | ED.RN ---
Unable to place chavarria catheter despite numerous attempts with multiple sizes from 8-22. Also attempted 14, 16, 18 coude unsuccessfully.
[2024-05-26 16:20] VITALS: BP 121/74; PULSE 71; RESP 18; TEMP 36.6; O2SAT 98
== END 2024-05-26 16:29 | disposition short-term general hospital (02) ==
PROVIDERS: Emergency Provider Emergency Medicine; PCP Family Medicine; Visit Provider Emergency Medicine
DX: N40.1 Benign prostatic hyperplasia with lower urinary tract symptoms (principal); G20.A1 Parkinson's disease without dyskinesia, without mention of fluctuations; F02.80 Dementia in other diseases classified elsewhere, unspecified severity, without behavioral disturbance, psychotic disturbance, mood disturbance, and anxiety; I48.19 Other persistent atrial fibrillation; I42.9 Cardiomyopathy, unspecified; N13.8 Other obstructive and reflux uropathy; N39.0 Urinary tract infection, site not specified; R33.8 Other retention of urine; I10 Essential (primary) hypertension; B96.5 Pseudomonas (aeruginosa) (mallei) (pseudomallei) as the cause of diseases classified elsewhere; Z85.46 Personal history of malignant neoplasm of prostate
CPT/HCPCS: 80048; 83605; 85025; 87040; 96365; 99284; J7050; A4216

== ENCOUNTER 2024-05-29 16:44 | Inpatient (IN) | payer MEDICARE, SELFPAY ==
[2024-05-29 16:59] VITALS: BP 134/84; PULSE 77; RESP 16; TEMP 36.1; O2SAT 94; BMI 28.8
[2024-05-29] MEDS: Ensure Plus High Protein 120 ML LIQUID PO (18:29)
--- NOTE | 2024-05-29 20:12 | PCM.HP.STD ---
[facility] - General General Date of Admission: 05/29/24 Date of Service: 05/29/24 Chief Complaint: Here for rehabilitation. HPI Narrative KAREN MOYA, is a 78 M who presents with followin05/26/2024 Resident developed urinary retention, bladderscan > 500mL, 3 attempts by nursing staff/nursing foundry melt supervisor unsuccessful. Urology unavailable. 05/26/2024 [facility] ED staff attempted urinary catheter placement x 5, different types of foleys and coude catheters, unsuccessful. 05/26/2024 Transfer to [facility] for urinary retention, unable to place urinary catheter. 05/26/2024 Admit to [facility]. 05/26/2024 2 Urologists attempted bladder catheter placement, unsuccessful. 05/26/2024 IR placed SPT. 05/26/2024 Urine culture growing Pseudomonas Aeruginosa. 05/27/2024 Doing well. 05/29/2024 Admit to TCU with debility, here for rehabilitation, strengthening, prior to discharge home with . [facility] Medical History (Updated 05/29/24 @ 20:[address] Tima Colindres MD) Urinary retention MRSA (methicillin resistant staph aureus) culture positive BPH (benign prostatic hyperplasia) Anxiety Depression Non-smoker History of Parkinson disease GI bleed Ambulatory dysfunction Wound of left foot Mitral valve insufficiency Lower extremity edema History of blistering sunburn Non-pressure chronic ulcer of left calf with fat layer exposed Obstructive uropathy Bladder stone Urethral stricture Parkinsons disease Chronic radiation cystitis History of prostate cancer DVT (deep venous thrombosis) Bladder outflow obstruction Hypertension Persistent atrial fibrillation Cardiomyopathy in other diseases classified elsewhere Other secondary pulmonary hypertension Home Medications ?Medication ?Instructions ?Recorded ?Last Taken ?Type carbidopa ER 50 mg-levodopa 200 mg 1 tablet PO 4X/DAY parkinsons 09/25/20 05/18/24 History tablet,extended release dorzolamide 22.3 mg-timolol 6.8 1 - 2 drp ophthalmic (eye) BID 09/25/20 05/18/24 History mg/mL eye drops glaucoma latanoprost 0.005 % eye drops 1 drp RIGHT EYE QHS eye he 09/10/21 05/17/24 History memantine 10 mg tablet 10 mg PO BID MEMORY 09/10/21 05/18/24 History inhalational spacing device (Space #1 ea 08/08/23 Unknown Rx Chamber) potassium chloride 20 mEq 20 meq PO BIDCM Supplement #60 tabs 11/17/23 05/14/24 Rx tablet,extended release(part/cryst) diltiazem HCl 120 mg capsule,24 See Rx Instructions .Route 02/01/24 05/15/24 Rx hr,extended release .COMPLEX heart #90 CAPSULES ascorbic acid (vitamin C) 1,000 mg 1 g PO Q6H Supplement 02/04/24 05/14/24 History tablet darolutamide 300 mg tablet (Nubeqa) 600 mg PO DAILY Prostate 02/04/24 05/17/24 History duloxetine 60 mg capsule,delayed 60 mg PO QDAY Mood 02/04/24 05/18/24 History release mupirocin 2 % topical ointment 1 applic topical BID Skin 02/22/24 02/21/24 History pantoprazole 40 mg tablet,delayed 40 mg PO BID stomach 30 days #60 03/06/24 05/18/24 Rx release tabs acetaminophen 325 mg tablet 650 mg (2 x 325 mg) PO Q6H PRN PRN 05/18/24 05/16/24 Rx Pain 1-10 #0 tabs fludrocortisone 0.1 mg tablet 0.05 mg (1/2 x 0.1 mg) PO 05/18/24 05/18/24 Rx BREAKFAST orthostatic hypotension #0 tabs food supplemt, lactose-reduced 120 ml PO TIDCM supplement #0 mL 05/18/24 05/18/24 Rx 0.08 gram-1.5 kcal/mL oral liquid (Ensure Plus High Protein) meclizine 12.5 mg tablet 12.5 mg PO TID PRN PRN Dizziness 05/18/24 Unknown Rx #0 tabs melatonin 3 mg tablet 3 mg PO QHS PRN PRN Insomnia #0 05/18/24 05/16/24 Rx tabs quetiapine 25 mg tablet 25 mg PO QHS confusion, 05/18/24 05/17/24 Rx hallucinations #0 tabs prednisolone acetate 1 % eye 1 drp ophthalmic (eye) Q12H Eye 05/29/24 Unknown History drops,suspension drops Allergy/AdvReac Type Severity Reaction Status Date / Time lidocaine Allergy Angioedema Verified 05/26/24 14:26 peppermint Allergy Angioedema Verified 05/26/24 14:26 phenylephrine Allergy Angioedema Verified 05/26/24 14:26 doxycycline AdvReac Intermediate SUNBURN Verified 05/26/24 14:26 Family History Brother Atrial fibrillation Hypertension Mother Heart disease CAD (coronary artery disease) Myocardial infarction Hypertension Heart failure Father Heart disease Colon cancer Ruptured aortic aneurysm Surgical History (Updated 05/29/24 @ 20:[address] Tima Colindres MD) History of suprapubic catheter History of incision and drainage (~09/2021) History of cataract extraction History of hernia repair Social History household members: spouse Smoking Status: Never smoker alcohol intake: never substance use type: does not use caffeine: Yes Type: carbonated beverages Number of servings: 1 ROS Constitutional Constitutional: Reports weakness; Denies chills, fever(s) or weight gain ENT HEENT: Denies headache(s), nasal congestion or nasal discharge Cardiovascular Cardiovascular: Denies chest pain or palpitations Respiratory/Chest Respiratory/Chest: Denies cough, excessive phlegm production or shortness of breath with exertion Gastrointestinal Gastrointestinal: Denies abdominal pain, nausea or vomiting Genitourinary Genitourinary: Denies dysuria Musculoskeletal Musculoskeletal: Denies joint pain or joint swelling Integumentary Integumentary: Denies rash or wounds Neurologic Neurologic: Denies focal weakness, numbness or tingling Psychiatric Psychiatric: Denies anxiety, auditory hallucinations, depression, homicidal ideation or suicidal ideation Vital Signs Vital Signs Vital Signs: 05/29/24 16:59 05/29/24 16:59 Temperature 96.9 F L Temperature Source Temporal Pulse Rate 77 Pulse Rhythm Irregular Pulse Strength Normal (2+) Respiratory Rate 16 Respiratory Effort Normal Non-Labored Respiratory Depth Normal Respiratory Pattern Normal Blood Pressure 134/84 H Blood Pressure Mean 100 Blood Pressure Source Monitor Blood Pressure Position Semi-Fowlers Blood Pressure Location Right Arm Pulse Ox 94 Oxygen Delivery Method Room Air Room Air Physical Exam Const alert General Appearance: cooperative HEENT normocephalic Eyes PERRL and EOMs intact bilaterally Neck supple, no JVD and no carotid bruits Resp normal respiratory effort, normal air movement and clear to auscultation bilaterally Cardio regular rate and regular rhythm GI normal to inspection, nondistended, normoactive bowel sounds, non-tender and non-distended Bladder / Kidney Exam: catheter in place suprapubic Extremity normal capillary refill General Extremity: Negative for edema Skin no rashes or lesions noted General Skin Exam: no breakdown Psych affect normal Appearance: appropriate Assessment & Plan Assessment/Plan (1) Debility: (2) Urinary retention: (3) Urinary tract infection due to Pseudomonas aeruginosa: (4) History of suprapubic catheter: (5) Parkinsons disease: QUALIFIERS: Dyskinesia presence: unspecified whether dyskinesia Fluctuating manifestations: with fluctuating manifestations Qualified Code(s): G20.A2 - Parkinson's disease without dyskinesia, with fluctuations (6) Prostate cancer: (7) Atrial fibrillation: (8) Glaucoma: (9) Depression: (10) Orthostatic hypotension: (11) Vertigo: (12) Insomnia: (13) Parkinson's disease dementia: (14) Hypokalemia: (15) Visual hallucinations: PLAN: Plan 78 year old male with below past medical history hospitalized for urinary retention, status post suprapubic catheter placement, complicated by pseudomonas urinary tract infection, admitted to TCU with debility, here for rehabilitation, strengthening, prior to discharge home with . Debility - PT/OT. Dysphagia - ST. Pain - Tylenol 1000mg q6 prn pain (1-10). Bowel - senna/colace 1 tablet bid, Magnesium citrate 300mL daily prn. Adult immunization - Administer pneumonia vaccine, covid vaccine, flu vaccine as appropriate. DVT prophylaxis - Lovenox 40mg sc daily. Urinary retention - s/p SP catheter. Parkinson Disease - Sinemet 50/200mg po qachs. Prostate cancer - Nubeqa 600mg daily. Atrial fibrillation - Diltiazem 120mg daily, anticoagulation held due to falls. Glaucoma - Dorzolamide 1-2 gtt ou bid, Latanoprost 1gtt od qhs. Depression - Duloxetine 60mg daily, stable chronic long term care pharmacist use, GDR not recommended. Nutrition - Ensure Plus 120mL po tidcm. Vertigo - Meclizine 12.5mg tid prn. Insomnia - Melatonin 3mg qhs prn. Parkinson Disease Dementia - Memantine 10mg bid. Skin irritation - Bactroban topical bid. Gastric ulcer - Pantoprazole 40mg bid. P. Aeruginosa - Zosyn 3.375gm iv q8 thru 06/06/2024. Hypokalemia - KCL 20meq bid. Visual hallucinations - Seroquel 25mg qhs, chronic jail use, GDR not recommended. Ocular inflammation - Prednisolone 1gtt ou q12
[2024-05-29] MEDS: MELATONIN 3 MG TABLET PO (21:56)
[2024-05-29] MEDS: 0.9% Saline Lock 10 ML Syringe IV (21:56)
[2024-05-29] MEDS: Pantoprazole Sodium 40 MG Tablet PO (21:58)
[2024-05-29] MEDS: CARBIDOPA/LEVODOPA CR 50/200 Tablet PO (21:59)
[2024-05-29] MEDS: Senna/Docusate Sodium 1 Tablet PO (21:59)
[2024-05-29] MEDS: QUEtiapine 25 MG Tablet PO (21:59)
[2024-05-29] MEDS: Piperacil/Tazobactam 3.375 GM in 0.9% Normal Saline (50mL MB+) 50 ML IV (22:00)
[2024-05-29] MEDS: Latanoprost 0.005% 1 Bottle 1 DRP RIGHT EYE (22:01)
[2024-05-29] MEDS: Memantine Hydrochloride 10 MG Tablet PO (22:01)
[2024-05-29] MEDS: prednisoLONE eye drops (5 mL) 1 DROP OPTH.BTL 1 DRP OPHTHALMIC (22:02)
[2024-05-29] MEDS: Dorzolamide HCL/Timolol 10 ml Bottle EACH EYE (22:02)
[2024-05-29] MEDS: Mupirocin Ointment 22gm Tube 1 APPLIC TOPICAL (22:04)
[2024-05-30 06:12] LABS: Absolute Lymphocyte Count 0.76 X10^3/uL (0.83-4.51); Absolute Neutrophil Count 3.1 X10^3/uL (2.0-7.7); Basophil# 0.03 X10^3/uL; Basophil% 0.6 % (0-1); Eosinophil# 0.37 X10^3/uL; Eosinophils% 7.6 % (0-5); Hematocrit 35.5 % (40-54); Hemoglobin 12.2 g/dL (13.0-16.5); Lymphocyte # 0.76 X10^3/ul (0.83-4.51); Lymphocyte % 15.7 % (19-41); Mean Corp Hgb Conc 34.4 g/dL (32-36); Mean Corpuscular Hgb 27.9 pg (27.0-32.0); Mean Corpuscular Volume 81.1 fL (80-94); Monocyte# 0.52 X10^3/uL; Monocyte% 10.7 % (0-10); NRBC Flagged by Analyzer 0 % (0-5); Neutrophil # 3.13 X10^3/uL (2.7-7.7); Neutrophil % 64.6 % (47-70); POSITIVE MORPHOLOGY YES; Platelet Count 210 K/mm3 (150-450); RBC Distribution Width CV 23.8 % (11.6-14.6); RBC Distribution Width SD 56.6 fl (35.1-43.9); Red Blood Count 4.38 M/mm3 (4.6-6.2); White Blood Count 4.9 K/mm3 (4.4-11.0)
[2024-05-30] MEDS: Piperacil/Tazobactam 3.375 GM in 0.9% Normal Saline (50mL MB+) 50 ML IV ×3 (06:23→23:12)
[2024-05-30] MEDS: CARBIDOPA/LEVODOPA CR 50/200 Tablet PO ×4 (06:23→23:06)
[2024-05-30] MEDS: Enoxaparin 40 MG/0.4 ML Syringe SC (06:23)
[2024-05-30 06:27] LABS: Differential Indicated SCAN CRITERIA MET
[2024-05-30] MEDS: 0.9% Normal Saline (500mL Bag) 500 ML 15 ML IV (06:28)
[2024-05-30 06:42] LABS: Anion Gap 6 (5-15); BUN 17 mg/dL (7-18); BUN/Creat Ratio 20.6 RATIO (10-20); Calcium,Total 8.4 mg/dL (8.5-10.1); Chloride 110 mmol/L (98-107); Creatinine, Serum 0.82 mg/dL (0.70-1.30); EST Glomerular Filtration Rate 96 mL/min (>60); Est Glom Filt Rate - Afr Amer 116 mL/min (>60); Glucose 99 mg/dL (74-106); Potassium 3.3 mmol/L (3.5-5.1); Sodium Level 142 mmol/L (136-145)
[2024-05-30 07:57] LABS: Differential Comment SCANNED; Platelet Estimate ADEQUATE (ADEQ)
[2024-05-30 07:58] LABS: Anisocytosis 2+; Polychromasia 1+
[2024-05-30 08:45] VITALS: BP 134/84; PULSE 91; RESP 16; TEMP 36.6; O2SAT 94
[2024-05-30] MEDS: Potassium Chloride Oral Tablet 20 MEQ PO ×2 (08:49→16:56)
[2024-05-30] MEDS: Memantine Hydrochloride 10 MG Tablet PO ×2 (08:50→23:07)
[2024-05-30] MEDS: dilTIAZem CD 120 MG Capsule PO (08:50)
[2024-05-30] MEDS: DULoxetine Hcl 60 MG Capsule PO (08:50)
[2024-05-30] MEDS: Pantoprazole Sodium 40 MG Tablet PO ×2 (08:50→23:07)
[2024-05-30] MEDS: DAROLUTAMIDE 300 MG 600 MG PO (08:50)
[2024-05-30] MEDS: prednisoLONE eye drops (5 mL) 1 DROP OPTH.BTL 1 DRP OPHTHALMIC ×2 (08:51→23:10)
[2024-05-30] MEDS: Mupirocin Ointment 22gm Tube 1 APPLIC TOPICAL ×2 (08:51→23:08)
[2024-05-30] MEDS: Dorzolamide HCL/Timolol 10 ml Bottle EACH EYE ×2 (08:51→23:09)
[2024-05-30] MEDS: Senna/Docusate Sodium 1 Tablet PO ×2 (08:52→23:07)
[2024-05-30] MEDS: Ensure Plus High Protein 120 ML LIQUID PO ×3 (08:53→16:56)
[2024-05-30] MEDS: Tuberculin,Purif.prot.deriv. 50 TU/ML Vial 0.1 ML ID (09:04)
[2024-05-30 09:40] VITALS: BMI 28.8
[2024-05-30] MEDS: 0.9% Saline Lock 10 ML Syringe IV ×2 (13:38→23:10)
--- NOTE | 2024-05-30 16:57 | CASEMGMT ---
Social Work SW met with pt. No changes to admission assessment. [facility] insurance NRD 06/04. Pt and 's goals are to return home with assistance. SW will continue to follow for DC planning. LUIS PedrozaW
[2024-05-30] MEDS: QUEtiapine 25 MG Tablet PO (23:08)
[2024-05-30] MEDS: Acetaminophen 500 MG Tablet 1000 MG PO (23:08)
[2024-05-30] MEDS: Latanoprost 0.005% 1 Bottle 1 DRP RIGHT EYE (23:09)
[2024-05-31] MEDS: Piperacil/Tazobactam 3.375 GM in 0.9% Normal Saline (50mL MB+) 50 ML IV ×3 (05:49→22:19)
[2024-05-31] MEDS: CARBIDOPA/LEVODOPA CR 50/200 Tablet PO ×4 (05:50→22:12)
[2024-05-31] MEDS: Enoxaparin 40 MG/0.4 ML Syringe SC (05:51)
--- NOTE | 2024-05-31 08:38 | PHA.CONS_ITS ---
Documented by User: Cholo Perera 05/31/24 09:02 TCU RX Drug Regimen Review Subjective/Objective Subjective/Objective Subjective: TCU admission note. 78 year old male with below past medical history hospitalized for urinary retention, status post suprapubic catheter placement, complicated by pseudomonas urinary tract infection, admitted to TCU with debility, here for rehabilitation, strengthening, prior to discharge home with . Objective: Allergies lidocaine Allergy (Verified 05/26/24 14:26) Angioedema peppermint Allergy (Verified 05/26/24 14:26) Angioedema phenylephrine Allergy (Verified 05/26/24 14:26) Angioedema doxycycline Adverse Reaction (Intermediate, Verified 05/26/24 14:26) SUNBURN Current Medications Generic Name Dose Route Start Last Admin Trade Name Freq PRN Reason Stop Dose Admin Acetaminophen 1,000 mg 05/29/24 20:25 05/30/24 23:08 Acetaminophen 500 Mg Tablet PO 1,000 mg Q6H PRN PRN Administration Pain 1-10 Carbidopa/Levodopa 1 tablet 05/29/24 22:00 05/31/24 05:50 Carbidopa/Levodopa Cr 50/200 Tablet PO 1 tablet ACHS FIDE Administration Diltiazem HCl 120 mg 05/30/24 10:00 05/30/24 08:50 Diltiazem Cd 120 Mg Capsule PO 120 mg DAILY FIDE Administration Dorzolamide/Timolol 1 - 2 drp 05/29/24 22:00 05/30/24 23:09 Dorzolamide Hcl/Timolol 10 Ml Bottle EACH EYE 1 drp BID FIDE Administration Duloxetine HCl 60 mg 05/30/24 10:00 05/30/24 08:50 Duloxetine Hcl 60 Mg Capsule PO 60 mg DAILY FIDE Administration Enoxaparin Sodium 40 mg 05/30/24 06:00 05/31/24 05:51 Enoxaparin 40 Mg/0.4 Ml Syringe SC 40 mg DAILY@0600 FIDE Administration Piperacillin Sod/Tazobactam 50 mls @ 12.5 mls/hr 05/29/24 22:00 05/31/24 05:49 Sod 3.375 gm/ Sodium Chloride IV 06/06/24 01:59 12.5 mls/hr Q8 FIDE Administration Sodium Chloride 500 mls @ 15 mls/hr 05/29/24 21:19 05/30/24 06:28 IV 15 mls/hr .[id number] PRN Administration Saline Flush Sodium Chloride 500 mls @ 15 mls/hr 05/29/24 21:19 IV .[id number] PRN Additional IVPB Infusion Latanoprost 1 drp 05/29/24 22:00 05/30/24 23:09 Latanoprost 0.005% 1 Bottle RIGHT EYE 1 drp QHS FIDE Administration Magnesium Citrate 300 ml 05/29/24 20:37 Magnesium Citrate 300 Ml PO DAILY PRN Constipation Meclizine HCl 12.5 mg 05/29/24 17:45 Meclizine 12.5 Mg Tablet PO TID PRN PRN Dizziness Melatonin 3 mg 05/29/24 17:45 05/29/24 21:56 Melatonin 3 Mg Tablet PO 3 mg QHS PRN PRN Administration Insomnia Memantine 10 mg 05/29/24 22:00 05/30/24 23:07 Memantine Hydrochloride 10 Mg Tablet PO 10 mg BID FIDE Administration Mupirocin 1 applic 05/29/24 22:00 05/30/24 23:08 Mupirocin Ointment 22gm Tube TOPICAL 1 applic BID FDIE Administration Protocol Nutritional Formula (Lactose Free) 120 ml 05/29/24 17:45 05/30/24 16:56 Ensure Plus High Protein 120 Ml Liquid PO 120 ml TIDCM FIDE Administration Pantoprazole Sodium 40 mg 05/29/24 22:00 05/30/24 23:07 Pantoprazole Sodium 40 Mg Tablet PO 40 mg BID FIDE Administration Potassium Chloride 20 meq 05/30/24 08:00 05/30/24 16:56 Potassium Chloride Oral Tablet 20 Meq PO 20 meq BIDCM FIDE Administration Prednisolone Acetate 1 drp 05/29/24 22:00 05/30/24 23:10 Prednisolone Eye Drops (5 Ml) 1 Drop Opth.Btl OPHTHALMIC 1 drp Q12 FIDE Administration Quetiapine Fumarate 25 mg 05/29/24 22:00 05/30/24 23:08 Quetiapine 25 Mg Tablet PO 25 mg QHS FIDE Administration Protocol Senna/Docusate Sodium 1 tablet 05/29/24 22:00 05/30/24 23:07 Senna/Docusate Sodium 1 Tablet PO 1 tablet BID FIDE Administration Sodium Chloride 10 - 40 ml 05/29/24 18:55 05/30/24 23:10 0.9% Saline Lock 10 Ml Syringe IV 10 ml UD PRN Administration SALINE FLUSH Tuberculin PPD 0.1 ml 06/06/24 10:00 Tuberculin,Purif.Prot.Deriv. 50 Tu/Ml Vial ID 06/06/24 10:01 X1 ONE Problem List Visual hallucinations (Acute) Insomnia (Acute) Prostate cancer (Acute) History of suprapubic catheter (Acute) Urinary retention (Acute) Urinary tract infection due to Pseudomonas aeruginosa (Acute) Hypokalemia (Acute) Depression (Acute) Vertigo (Acute) Orthostatic hypotension (Acute) Parkinson's disease dementia (Acute) Glaucoma (Acute) Debility (Acute) Parkinsons disease (Acute) Vital Signs Temp Pulse Resp BP Pulse Ox O2 Del Method 97.8 F 91 16 134/84 H 94 Room Air 05/30/24 08:45 05/30/24 08:45 05/30/24 08:45 05/30/24 08:45 05/30/24 08:45 05/31/24 06:15 Oxygen Delivery Method Room Air Weight: 83.325 kg Body Mass Index (BMI) 28.8 Sodium 142 mmol/L (136-145) 05/30/24 05:33 Potassium 3.3 mmol/L (3.5-5.1) L 05/30/24 05:33 Chloride 110 mmol/L (98-107) H 05/30/24 05:33 Carbon Dioxide 26.0 mmol/L (21.0-32.0) 05/30/24 05:33 Anion Gap 6 (5-15) 05/30/24 05:33 BUN 17 mg/dL (7-18) 05/30/24 05:33 Creatinine 0.82 mg/dL (0.70-1.30) 05/30/24 05:33 Est GFR (MDRD) Af Amer 116 mL/min (>60) 05/30/24 05:33 Est GFR (MDRD) Non-Af 96 mL/min (>60) 05/30/24 05:33 BUN/Creatinine Ratio 20.6 RATIO (10-20) H 05/30/24 05:33 Glucose 99 mg/dL (74-106) 05/30/24 05:33 Assessment/Plan: 1. Pain: Acetaminophen 1000mg Q6H PRN for pain (1-10). Resident received one dose of PRN acetaminophen on 05/30 for a pain score of 1/10. Please continue to monitor for pain and PRN usage. 2. Bowel: Senna/docusate 8.6mg/50mg tablet PO BID, magnesium citrate 300mg PO daily PRN. Resident has not needed any PRN doses. Please continue to monitor for constipation and PRN usage. Last documented bowel movement was 05/31. 3. DVT Prophylaxis: Enoxaparin 40mg SC daily. Please continue to monitor for S/S of bleeding/stroke, hemoglobin (last 12.2 g/dL), and renal function (last CrCl 75 mL/min).? 4. UTI d/t pseudomonas: piperacillin/tazobactam 3.375 IV Q8H through 06/06/24. Please continue to monitor for s/s of infection such as urinary frequency, urgency or dysuria, WBC count (WBC = 4.9 K/mm3 on 05/30/24), renal function (last CrCl 75 mL/min), as well as for chills and fevers (last temp = 97.8 F). 5. Atrial Fibrillation: Diltiazem 120mg PO daily. Please continue to monitor heart rate (last 91 bpm), blood pressure (last 134/84 mmHg), for constipation, and irregular/rapid heartbeat. 6. Parkinson?s Disease/Parkinson?s Disease Dementia: Carbidopa/levodopa 50mg/200mg ACHS, memantine 10mg PO BID. Please continue to monitor neurological function, LFTs, renal function, and falls. 7. Nutrition/Hypokalemia: Ensure Plus 120mL PO TID, potassium chloride 20mEq PO BID. Thanks. Please continue to monitor potassium (last 3.3 mmol/L), irregular heartbeats, and S/S of malnutrition.? 8. Vertigo: Meclizine 12.5mg PO TID PRN. Resident has not received any PRN doses of meclizine so far this admission. Please continue to monitor for confusion, dry mouth, and constipation (BEERs - meclizine). 9. Gastric Ulcer: Pantoprazole 40mg PO BID. Please continue to monitor for S/S of worsening gastric ulcer, LFTs, and magnesium (last 1.8 mg/dL). 10. Prostate Cancer: Nubeqa 600mg daily. Please continue to monitor white blood cell counts (WBC = 4.9 K/mm3 on 05/30/24), for asthenia, fatigue, and liver counts (AST/ALT = 8/< 6 U/L on 05/16/24). 11. Glaucoma/ocular inflammation - Dorzolamide/timolol 2%/0.5% 1-2 gtt OU BID, latanoprost 0.005% 1 gtt OD QHS, prednisolone 1% 1 gtt Os BID. Please continue to monitor for S/S of glaucoma and ocular inflammation. 12. Insomnia: Melatonin 3mg PO QHS PRN. Patient has received 1 PRN dose on 05/29. Please continue to monitor for PRN usage, confusion, and falls/fractures. 13.?Skin Irritation: mupirocin topically BID. Please continue to monitor for skin irritation.? Assessment/Plan for indications treated with psychotropic medications: 1. Depression: Duloxetine 60mg PO daily. GDR does not seem appropriate at this time given the patient has been on this manager intermediate and is stable. Please continue to monitor for S/S of suicidal ideation (black bow warning), S/S of serotonin syndrome, S/S of depression, dizziness/fatigue, and falls/fractures (BEERs). 2. Visual Hallucinations: Quetiapine 25mg PO QHS. GDR does not seem appropriate at this time given the patient has been on this jail and is stable. Please continue to monitor neurological function, LFTs, TSH (last 1.240 uIU/mL; normal range), and S/S of stroke (BEERs).? Medical chart and medication regimen reviewed. The following medication irreg ularities or issues were identified: NA Date Date of Note: 05/31/24 Documented by User: Dr. Tima Colindres MD 06/04/24 07:21 TCU RX Drug Regimen Review Provider Comments Provider responsibility Provider Comments to Recommendations by Pharmacy Agree
[2024-05-31] MEDS: Ensure Plus High Protein 120 ML LIQUID PO ×3 (10:00→18:19)
[2024-05-31] MEDS: Potassium Chloride Oral Tablet 20 MEQ PO ×2 (10:00→18:17)
[2024-05-31] MEDS: dilTIAZem CD 120 MG Capsule PO (10:01)
[2024-05-31] MEDS: Memantine Hydrochloride 10 MG Tablet PO ×2 (10:02→22:14)
[2024-05-31] MEDS: Pantoprazole Sodium 40 MG Tablet PO ×2 (10:02→22:15)
[2024-05-31] MEDS: Senna/Docusate Sodium 1 Tablet PO ×2 (10:02→22:14)
[2024-05-31] MEDS: DULoxetine Hcl 60 MG Capsule PO (10:02)
[2024-05-31] MEDS: prednisoLONE eye drops (5 mL) 1 DROP OPTH.BTL 1 DRP OPHTHALMIC ×2 (10:03→22:13)
[2024-05-31] MEDS: Mupirocin Ointment 22gm Tube 1 APPLIC TOPICAL ×2 (10:04→22:12)
[2024-05-31] MEDS: Dorzolamide HCL/Timolol 10 ml Bottle EACH EYE ×2 (10:04→22:13)
[2024-05-31] MEDS: DAROLUTAMIDE 300 MG 600 MG PO (10:05)
[2024-05-31] MEDS: Acetaminophen 500 MG Tablet 1000 MG PO ×2 (11:10→22:16)
[2024-05-31 15:40] VITALS: BP 138/90; PULSE 91; RESP 16; TEMP 36; O2SAT 96
[2024-05-31] MEDS: Potassium Chloride Oral Tablet 20 MEQ 40 MEQ PO (16:28)
[2024-05-31] MEDS: Latanoprost 0.005% 1 Bottle 1 DRP RIGHT EYE (22:12)
[2024-05-31] MEDS: QUEtiapine 25 MG Tablet PO (22:14)
[2024-05-31] MEDS: 0.9% Saline Lock 10 ML Syringe IV (22:15)
[2024-05-31] MEDS: 0.9% Normal Saline (500mL Bag) 500 ML 15 ML IV (22:21)
[2024-06-01 06:29] LABS: Anion Gap 6 (5-15); BUN 20 mg/dL (7-18); BUN/Creat Ratio 25.3 RATIO (10-20); Calcium,Total 8.7 mg/dL (8.5-10.1); Chloride 114 mmol/L (98-107); Creatinine, Serum 0.79 mg/dL (0.70-1.30); EST Glomerular Filtration Rate 100 mL/min (>60); Est Glom Filt Rate - Afr Amer 121 mL/min (>60); Estimated Creatinine Clearance 75.84 ml/min; Glucose 91 mg/dL (74-106); Magnesium 2.1 mg/dL (1.6-2.6); Sodium Level 143 mmol/L (136-145)
[2024-06-01] MEDS: Piperacil/Tazobactam 3.375 GM in 0.9% Normal Saline (50mL MB+) 50 ML IV ×3 (06:51→22:00)
[2024-06-01] MEDS: CARBIDOPA/LEVODOPA CR 50/200 Tablet PO ×4 (06:53→21:28)
[2024-06-01] MEDS: Enoxaparin 40 MG/0.4 ML Syringe SC (06:53)
[2024-06-01 08:23] VITALS: BP 131/89; PULSE 85; RESP 16; TEMP 36; O2SAT 97
[2024-06-01] MEDS: Ensure Plus High Protein 120 ML LIQUID PO ×2 (08:24→13:04)
[2024-06-01] MEDS: dilTIAZem CD 120 MG Capsule PO (08:24)
[2024-06-01] MEDS: DULoxetine Hcl 60 MG Capsule PO (08:24)
[2024-06-01] MEDS: Pantoprazole Sodium 40 MG Tablet PO ×2 (08:25→21:29)
[2024-06-01] MEDS: DAROLUTAMIDE 300 MG 600 MG PO (08:25)
[2024-06-01] MEDS: Memantine Hydrochloride 10 MG Tablet PO ×2 (08:25→21:28)
[2024-06-01] MEDS: Senna/Docusate Sodium 1 Tablet PO ×2 (08:25→21:29)
[2024-06-01] MEDS: Potassium Chloride Oral Tablet 20 MEQ PO ×2 (08:26→21:27)
[2024-06-01] MEDS: Mupirocin Ointment 22gm Tube 1 APPLIC TOPICAL ×2 (08:26→21:57)
[2024-06-01] MEDS: Dorzolamide HCL/Timolol 10 ml Bottle EACH EYE ×2 (08:26→21:54)
[2024-06-01] MEDS: prednisoLONE eye drops (5 mL) 1 DROP OPTH.BTL 1 DRP OPHTHALMIC ×2 (08:27→21:54)
[2024-06-01] MEDS: Spironolactone 25 MG Tablet PO (11:08)
[2024-06-01 11:13] VITALS: RESP 16
--- NOTE | 2024-06-01 13:12 | NURSING ---
1600 sinemet dose given to , pt going [place] for wedding anniversary & Birthday libertarian today. She will administer to pt before he eats supper
[2024-06-01] MEDS: Acetaminophen 500 MG Tablet 1000 MG PO (14:09)
--- NOTE | 2024-06-01 14:56 | NURSING ---
pt off unit with for [facility]
--- NOTE | 2024-06-01 21:22 | NURSING ---
Pt returned to unit at 2100.
[2024-06-01] MEDS: QUEtiapine 25 MG Tablet PO (21:29)
[2024-06-01 21:30] VITALS: BP 135/85; PULSE 92; RESP 18; TEMP 33.3; O2SAT 95
[2024-06-01] MEDS: Latanoprost 0.005% 1 Bottle 1 DRP RIGHT EYE (21:53)
[2024-06-01] MEDS: 0.9% Saline Lock 10 ML Syringe IV (21:59)
[2024-06-02] MEDS: Piperacil/Tazobactam 3.375 GM in 0.9% Normal Saline (50mL MB+) 50 ML IV ×3 (06:03→21:19)
[2024-06-02] MEDS: Enoxaparin 40 MG/0.4 ML Syringe SC (06:07)
[2024-06-02] MEDS: CARBIDOPA/LEVODOPA CR 50/200 Tablet PO ×4 (06:08→21:18)
[2024-06-02 08:35] VITALS: BP 130/85; PULSE 86; RESP 18; TEMP 35.8; O2SAT 96
[2024-06-02] MEDS: Ensure Plus High Protein 120 ML LIQUID PO ×3 (08:41→17:18)
[2024-06-02] MEDS: dilTIAZem CD 120 MG Capsule PO (08:41)
[2024-06-02] MEDS: Spironolactone 25 MG Tablet PO (08:41)
[2024-06-02] MEDS: Potassium Chloride Oral Tablet 20 MEQ PO ×2 (08:41→17:16)
[2024-06-02] MEDS: Mupirocin Ointment 22gm Tube 1 APPLIC TOPICAL ×2 (08:41→21:28)
[2024-06-02] MEDS: prednisoLONE eye drops (5 mL) 1 DROP OPTH.BTL 1 DRP OPHTHALMIC ×2 (08:42→21:26)
[2024-06-02] MEDS: Memantine Hydrochloride 10 MG Tablet PO ×2 (08:42→21:19)
[2024-06-02] MEDS: Pantoprazole Sodium 40 MG Tablet PO ×2 (08:42→21:20)
[2024-06-02] MEDS: DULoxetine Hcl 60 MG Capsule PO (08:42)
[2024-06-02] MEDS: Dorzolamide HCL/Timolol 10 ml Bottle EACH EYE ×2 (08:42→21:27)
[2024-06-02] MEDS: DAROLUTAMIDE 300 MG 600 MG PO (08:42)
[2024-06-02] MEDS: Senna/Docusate Sodium 1 Tablet PO ×2 (08:42→21:18)
[2024-06-02] MEDS: Pramipexole Di-HCl 1 MG Tablet PO ×2 (15:03→21:18)
[2024-06-02] MEDS: 0.9% Saline Lock 10 ML Syringe IV ×3 (15:04→19:57)
[2024-06-02] MEDS: QUEtiapine 25 MG Tablet PO (21:21)
[2024-06-02] MEDS: Latanoprost 0.005% 1 Bottle 1 DRP RIGHT EYE (21:25)
[2024-06-03] MEDS: Piperacil/Tazobactam 3.375 GM in 0.9% Normal Saline (50mL MB+) 50 ML IV ×3 (06:09→21:29)
[2024-06-03] MEDS: Pramipexole Di-HCl 1 MG Tablet PO ×4 (06:09→21:37)
[2024-06-03] MEDS: Enoxaparin 40 MG/0.4 ML Syringe SC (06:09)
[2024-06-03] MEDS: CARBIDOPA/LEVODOPA CR 50/200 Tablet PO ×4 (06:09→21:37)
[2024-06-03 07:40] VITALS: BP 123/83; PULSE 85; RESP 16; TEMP 36.3; O2SAT 93
[2024-06-03] MEDS: Ensure Plus High Protein 120 ML LIQUID PO ×3 (07:50→19:00)
[2024-06-03] MEDS: DAROLUTAMIDE 300 MG 600 MG PO (07:51)
[2024-06-03] MEDS: dilTIAZem CD 120 MG Capsule PO (07:51)
[2024-06-03] MEDS: Pantoprazole Sodium 40 MG Tablet PO ×2 (07:51→21:37)
[2024-06-03] MEDS: DULoxetine Hcl 60 MG Capsule PO (07:51)
[2024-06-03] MEDS: Senna/Docusate Sodium 1 Tablet PO ×2 (07:51→21:37)
[2024-06-03] MEDS: Potassium Chloride Oral Tablet 20 MEQ PO ×2 (07:51→19:00)
[2024-06-03] MEDS: Memantine Hydrochloride 10 MG Tablet PO ×2 (07:51→21:38)
[2024-06-03] MEDS: Spironolactone 25 MG Tablet PO (07:51)
[2024-06-03] MEDS: prednisoLONE eye drops (5 mL) 1 DROP OPTH.BTL 1 DRP OPHTHALMIC ×2 (07:52→21:37)
[2024-06-03] MEDS: Dorzolamide HCL/Timolol 10 ml Bottle EACH EYE ×2 (07:52→21:34)
[2024-06-03] MEDS: Mupirocin Ointment 22gm Tube 1 APPLIC TOPICAL ×2 (07:53→21:36)
[2024-06-03 07:56] LABS: Anion Gap 11 (5-15); BUN 18 mg/dL (7-18); BUN/Creat Ratio 21.4 RATIO (10-20); Calcium,Total 9.1 mg/dL (8.5-10.1); Chloride 110 mmol/L (98-107); Creatinine, Serum 0.84 mg/dL (0.70-1.30); EST Glomerular Filtration Rate 93 mL/min (>60); Est Glom Filt Rate - Afr Amer 113 mL/min (>60); Estimated Creatinine Clearance 71.04 ml/min; Glucose 101 mg/dL (74-106); Potassium 4.1 mmol/L (3.5-5.1); Sodium Level 142 mmol/L (136-145)
[2024-06-03] MEDS: 0.9% Saline Lock 10 ML Syringe IV ×3 (11:27→21:29)
--- NOTE | 2024-06-03 16:41 | NURSING ---
pt & updated that staff member tested for covid this AM.
[2024-06-03] MEDS: QUEtiapine 25 MG Tablet PO (21:37)
[2024-06-03] MEDS: Latanoprost 0.005% 1 Bottle 1 DRP RIGHT EYE (21:38)
[2024-06-04] MEDS: 0.9% Saline Lock 10 ML Syringe IV ×3 (02:47→14:10)
[2024-06-04] MEDS: Piperacil/Tazobactam 3.375 GM in 0.9% Normal Saline (50mL MB+) 50 ML IV ×2 (06:24→14:14)
[2024-06-04] MEDS: Enoxaparin 40 MG/0.4 ML Syringe SC (06:28)
[2024-06-04] MEDS: CARBIDOPA/LEVODOPA CR 50/200 Tablet PO ×3 (06:28→17:13)
[2024-06-04] MEDS: Pramipexole Di-HCl 1 MG Tablet PO ×3 (06:28→17:14)
[2024-06-04 06:46] VITALS: PULSE 78; RESP 16; O2SAT 98
[2024-06-04 08:46] VITALS: BP 114/67; PULSE 80; RESP 18; TEMP 36.5; O2SAT 93
[2024-06-04] MEDS: Ensure Plus High Protein 120 ML LIQUID PO ×3 (08:48→18:32)
[2024-06-04] MEDS: Potassium Chloride Oral Tablet 20 MEQ PO ×2 (08:48→17:14)
[2024-06-04] MEDS: Pantoprazole Sodium 40 MG Tablet PO (08:49)
[2024-06-04] MEDS: Memantine Hydrochloride 10 MG Tablet PO (08:49)
[2024-06-04] MEDS: Senna/Docusate Sodium 1 Tablet PO (08:49)
[2024-06-04] MEDS: DULoxetine Hcl 60 MG Capsule PO (08:49)
[2024-06-04] MEDS: Spironolactone 25 MG Tablet PO (08:49)
[2024-06-04] MEDS: dilTIAZem CD 120 MG Capsule PO (08:49)
[2024-06-04] MEDS: Mupirocin Ointment 22gm Tube 1 APPLIC TOPICAL (08:50)
[2024-06-04] MEDS: DAROLUTAMIDE 300 MG 600 MG PO (08:50)
[2024-06-04] MEDS: prednisoLONE eye drops (5 mL) 1 DROP OPTH.BTL 1 DRP OPHTHALMIC (08:51)
[2024-06-04] MEDS: Dorzolamide HCL/Timolol 10 ml Bottle EACH EYE (08:56)
--- NOTE | 2024-06-04 10:40 | NURSING ---
Offered covid vaccine, VIS provided. Resident refuses at this time.
--- NOTE | 2024-06-04 11:51 | NURSING ---
Addendum entered by Shanae Weiss 06/04/24 15:38: called back, discussed plan with her. She voiced understanding and will schedule an appt with Dr. Prather for after DC from U. Original Note: Cancelled appt with Dr. Prather for follow-up and injection. Called and updated by .
[2024-06-05] MEDS: 0.9% Saline Lock 10 ML Syringe IV ×3 (00:19→20:53)
[2024-06-05] MEDS: Pramipexole Di-HCl 1 MG Tablet PO ×5 (00:21→20:53)
[2024-06-05] MEDS: QUEtiapine 25 MG Tablet PO ×2 (00:21→20:53)
[2024-06-05] MEDS: Mupirocin Ointment 22gm Tube 1 APPLIC TOPICAL ×3 (00:21→20:54)
[2024-06-05] MEDS: Dorzolamide HCL/Timolol 10 ml Bottle EACH EYE ×3 (00:22→20:54)
[2024-06-05] MEDS: Senna/Docusate Sodium 1 Tablet PO ×2 (00:22→20:53)
[2024-06-05] MEDS: Pantoprazole Sodium 40 MG Tablet PO ×3 (00:22→20:53)
[2024-06-05] MEDS: CARBIDOPA/LEVODOPA CR 50/200 Tablet PO ×5 (00:22→20:53)
[2024-06-05] MEDS: prednisoLONE eye drops (5 mL) 1 DROP OPTH.BTL 1 DRP OPHTHALMIC ×3 (00:23→20:54)
[2024-06-05] MEDS: Latanoprost 0.005% 1 Bottle 1 DRP RIGHT EYE ×2 (00:23→20:54)
[2024-06-05] MEDS: Memantine Hydrochloride 10 MG Tablet PO ×3 (00:23→20:53)
[2024-06-05] MEDS: Piperacil/Tazobactam 3.375 GM in 0.9% Normal Saline (50mL MB+) 50 ML IV ×4 (00:54→21:00)
[2024-06-05] MEDS: Enoxaparin 40 MG/0.4 ML Syringe SC (06:59)
[2024-06-05] MEDS: Ensure Plus High Protein 120 ML LIQUID PO ×3 (08:09→17:16)
[2024-06-05] MEDS: Spironolactone 25 MG Tablet PO (08:09)
[2024-06-05] MEDS: Potassium Chloride Oral Tablet 20 MEQ PO ×2 (08:09→17:16)
[2024-06-05] MEDS: dilTIAZem CD 120 MG Capsule PO (08:09)
[2024-06-05] MEDS: DULoxetine Hcl 60 MG Capsule PO (08:10)
[2024-06-05] MEDS: DAROLUTAMIDE 300 MG 600 MG PO (08:11)
[2024-06-05 09:00] VITALS: BMI 28.5
[2024-06-05 11:32] VITALS: BP 91/59; PULSE 84; RESP 16; TEMP 36.3; O2SAT 98
--- NOTE | 2024-06-05 15:39 | CASEMGMT ---
Social Work BIMS(12) and PHQ-9(13) completed this date for MDS assessment. SW completed assessments w/pt's present, w/pt's permission. PHQ-9 showing signs of pt feeling depressed. Pt attributes this to his many health issues. Pt attributes his decline in appetite, tiredness, lack of interest in activities, trouble with sleep, moving slowly trouble concentrating, feeling bad about himself, at times thinking he would be better off --all to his health decline and not being able to do what he used to be able to do. Pt states he has not felt like this prior to his health decline. states pt cannot do what he used to and at times feels useless. Pt states he has never tried to kill himself, he has never had a plan on how he would kill himself. Pt states he does not feel today that he wants to , he did not feel this way yesterday either. Pt states has never been diagnosed w/depression, has never taken medication for depression. Pt is not interested in taking medication at this time either. Pt states was in counseling once, a long time ago. Pt does feel he has things to live for, his children, family, grandchildren. Pt does not want to harm himself at this time, and has no active plan to harm or kill himself at this time. SW remains available to support pt and family at this time. WIL Hernandez
[2024-06-06] MEDS: Enoxaparin 40 MG/0.4 ML Syringe SC (06:23)
[2024-06-06] MEDS: CARBIDOPA/LEVODOPA CR 50/200 Tablet PO ×4 (06:23→21:46)
[2024-06-06] MEDS: Pramipexole Di-HCl 1 MG Tablet PO ×4 (06:23→21:46)
[2024-06-06] MEDS: 0.9% Saline Lock 10 ML Syringe IV ×2 (06:23→11:32)
[2024-06-06] MEDS: Piperacil/Tazobactam 3.375 GM in 0.9% Normal Saline (50mL MB+) 50 ML IV (07:41)
[2024-06-06 07:45] LABS: Absolute Lymphocyte Count 1.26 X10^3/uL (0.83-4.51); Absolute Neutrophil Count 3.2 X10^3/uL (2.0-7.7); Basophil# 0.02 X10^3/uL; Basophil% 0.4 % (0-1); Differential Indicated SCAN CRITERIA MET; Eosinophil# 0.34 X10^3/uL; Eosinophils% 6.4 % (0-5); Hematocrit 42.3 % (40-54); Hemoglobin 12.8 g/dL (13.0-16.5); Lymphocyte # 1.26 X10^3/ul (0.83-4.51); Lymphocyte % 23.6 % (19-41); Mean Corp Hgb Conc 30.3 g/dL (32-36); Mean Corpuscular Hgb 23.6 pg (27.0-32.0); Mean Platelet Vol. 10.9 fl (6.2-12.0); Monocyte# 0.48 X10^3/uL; NRBC Flagged by Analyzer 0 % (0-5); Neutrophil # 3.17 X10^3/uL (2.7-7.7); Neutrophil % 59.5 % (47-70); POSITIVE MORPHOLOGY YES; Platelet Count 248 K/mm3 (150-450); RBC Distribution Width CV 22.5 % (11.6-14.6); RBC Distribution Width SD 61.1 fl (35.1-43.9); Red Blood Count 5.42 M/mm3 (4.6-6.2); White Blood Count 5.3 K/mm3 (4.4-11.0)
[2024-06-06 08:10] LABS: Anion Gap 6 (5-15); BUN 21 mg/dL (7-18); BUN/Creat Ratio 25.5 RATIO (10-20); Calcium,Total 8.9 mg/dL (8.5-10.1); Chloride 112 mmol/L (98-107); Creatinine, Serum 0.82 mg/dL (0.70-1.30); EST Glomerular Filtration Rate 96 mL/min (>60); Est Glom Filt Rate - Afr Amer 116 mL/min (>60); Estimated Creatinine Clearance 72.48 ml/min; Glucose 95 mg/dL (74-106); Potassium 4.3 mmol/L (3.5-5.1); Sodium Level 140 mmol/L (136-145)
[2024-06-06 09:26] LABS: Anisocytosis 1+
[2024-06-06 09:50] VITALS: BP 100/64; PULSE 80; RESP 18; TEMP 35.9; O2SAT 96
[2024-06-06] MEDS: Potassium Chloride Oral Tablet 20 MEQ PO ×2 (09:52→17:16)
[2024-06-06] MEDS: DAROLUTAMIDE 300 MG 600 MG PO (09:52)
[2024-06-06] MEDS: Ensure Plus High Protein 120 ML LIQUID PO ×3 (09:52→17:17)
[2024-06-06] MEDS: Dorzolamide HCL/Timolol 10 ml Bottle EACH EYE ×2 (09:53→21:45)
[2024-06-06] MEDS: DULoxetine Hcl 60 MG Capsule PO (09:54)
[2024-06-06] MEDS: Senna/Docusate Sodium 1 Tablet PO ×2 (09:54→21:46)
[2024-06-06] MEDS: prednisoLONE eye drops (5 mL) 1 DROP OPTH.BTL 1 DRP OPHTHALMIC ×2 (09:54→21:43)
[2024-06-06] MEDS: Memantine Hydrochloride 10 MG Tablet PO ×2 (09:54→21:46)
[2024-06-06] MEDS: Spironolactone 25 MG Tablet PO (09:54)
[2024-06-06] MEDS: Pantoprazole Sodium 40 MG Tablet PO ×2 (09:54→21:46)
[2024-06-06] MEDS: dilTIAZem CD 120 MG Capsule PO (09:54)
--- NOTE | 2024-06-06 10:06 | CASEMGMT ---
Social Work IDT met with patient, and dtr for care plan meeting. Discussed patient's progress in PT/OT/SN. Educated to [facility] insurance with NRD 06/12, EDC 06/15. Pt had a questions for the Dr about his balance. SW offered to have Dr speak with pt and family this evening, prior to originally scheduled meeting 06/08. All in agreement. SW offered the Dr will be able to assist with explanation on pt's noted decline this stay and prognosis and determine pt's treatment plan. SW discussed with that pt is at a higher level of care currently than what can assist with at home. noted pt does have PLANT MAINTENANCE MECHANIC 4 hrs daily at home and can increase it if needed. Dtr explained pt's insurance plan allows for 8 hours of aides daily, but acknowledged staffing may not be available. SW provided resources for additional PLANT MAINTENANCE MECHANIC agencies to contact. Dtr also inquired about touring SNFs or ALs. SW encouraged and offered to make referrals to any facilities that is needed. SW to follow after Drs conversation with family and DC planning. Tanisha Mccann, PROFILE GRINDER RESEARCH MANAGER
[2024-06-06] MEDS: Tuberculin,Purif.prot.deriv. 50 TU/ML Vial 0.1 ML ID (11:29)
[2024-06-06] MEDS: Mupirocin Ointment 22gm Tube 1 APPLIC TOPICAL ×2 (11:30→21:43)
[2024-06-06 21:00] VITALS: PULSE 82; RESP 18; O2SAT 99
[2024-06-06] MEDS: Latanoprost 0.005% 1 Bottle 1 DRP RIGHT EYE (21:42)
[2024-06-06] MEDS: QUEtiapine 25 MG Tablet PO (21:46)
[2024-06-07] MEDS: Enoxaparin 40 MG/0.4 ML Syringe SC (06:06)
[2024-06-07] MEDS: Pramipexole Di-HCl 1 MG Tablet PO ×4 (06:06→21:52)
[2024-06-07] MEDS: CARBIDOPA/LEVODOPA CR 50/200 Tablet PO ×4 (06:06→21:52)
[2024-06-07] MEDS: 0.9% Saline Lock 10 ML Syringe IV ×2 (06:07→07:47)
[2024-06-07 06:15] VITALS: PULSE 80; RESP 16; O2SAT 98
[2024-06-07 07:42] VITALS: BP 128/85; PULSE 70; RESP 16; TEMP 36.1; O2SAT 96
[2024-06-07] MEDS: Ensure Plus High Protein 120 ML LIQUID PO ×3 (07:47→17:33)
[2024-06-07] MEDS: Potassium Chloride Oral Tablet 20 MEQ PO ×2 (07:47→16:00)
[2024-06-07] MEDS: Spironolactone 25 MG Tablet PO (07:47)
[2024-06-07] MEDS: dilTIAZem CD 120 MG Capsule PO (07:48)
[2024-06-07] MEDS: DAROLUTAMIDE 300 MG 600 MG PO (07:48)
[2024-06-07] MEDS: Senna/Docusate Sodium 1 Tablet PO ×2 (07:48→21:53)
[2024-06-07] MEDS: DULoxetine Hcl 60 MG Capsule PO (07:48)
[2024-06-07] MEDS: Memantine Hydrochloride 10 MG Tablet PO ×2 (07:48→21:53)
[2024-06-07] MEDS: Pantoprazole Sodium 40 MG Tablet PO ×2 (07:48→21:53)
[2024-06-07] MEDS: Dorzolamide HCL/Timolol 10 ml Bottle EACH EYE ×2 (07:49→21:53)
[2024-06-07] MEDS: Mupirocin Ointment 22gm Tube 1 APPLIC TOPICAL ×2 (07:49→21:53)
[2024-06-07] MEDS: prednisoLONE eye drops (5 mL) 1 DROP OPTH.BTL 1 DRP OPHTHALMIC ×2 (07:49→21:58)
--- NOTE | 2024-06-07 08:09 | NURSING ---
URINE COLLECTED VIA S/P CATHETER, REQUESTING THAT IT BE CHECKED SINCE COMPLETING IV ZOSYN. URINE CLOUDY YELLOW.
[2024-06-07 08:17] LABS: Mucous, Urine 0 SEEN /hpf (<or=2+); Squamous Epithelial Cells - UA 0 SEEN /hpf (0-5)
[2024-06-07 08:20] LABS: Color, Urine Yellow (Yellow); Glucose, Dipstick Normal (Normal); Ketone-Dipstick Negative (Negative); Leukocyte Esterase-Dipstick 25 /ul (Negative); Nitrite-Dipstick Negative (Negative); Occult Blood-Urine 250 /ul (Negative); Protein-Dipstick 100 mg/dl (Negative); Urine Bilirubin Dipstick Negative (Negative); Urine Clarity Sl. Cloudy (Clear); Urine Urobilinogen Normal (Normal); Urine pH 6.5 (5.0 - 8.0)
[2024-06-07 08:47] LABS: Bacteria 1+ /hpf (None Seen); Calcium Oxalate Crystals Ur 1+ /hpf (<or=2+); Red Blood Cells-Urine 10-25 SEEN /hpf (0-5); White Blood Cells 0-5 SEEN /hpf (0-5)
--- NOTE | 2024-06-07 10:35 | NURSING ---
Addendum entered by Cely Abdi 06/07/24 14:21: pt noted to have some blood in catheter bag, dressing changed to insertion site, no redness. Original Note: therapy reported that pt was complaining about burning at cath insertion site during therapy, this nurse assessed area, noted catheter stat lock came apart from adhesive, new stat lock placed. urine flowing in tube. will continue to monitor site/cath
[2024-06-07] MEDS: Acetaminophen 500 MG Tablet 1000 MG PO ×2 (14:11→21:51)
--- NOTE | 2024-06-07 14:50 | CASEMGMT ---
Social Work CARMEN followed up with Dr. Colindres on conversation with family. feels pt is making slow but steady improvements and if pt can hire additional aides in the home, pt can DC home; if not, pt will DC to a SNF. CARMEN phoned to follow up as well. states she got her questions answered from Dr. Colindres and in agreement for DC plan. to start contacting PROPERTY AND EQUIPMENT CLERK from list provided from this worker at [facility]. CARMEN will notify with DC date from insurance. LUIS PedrozaW
[2024-06-07] MEDS: MELATONIN 3 MG TABLET PO (21:52)
[2024-06-07] MEDS: QUEtiapine 25 MG Tablet PO (21:53)
[2024-06-07] MEDS: Latanoprost 0.005% 1 Bottle 1 DRP RIGHT EYE (21:58)
[2024-06-08] MEDS: Enoxaparin 40 MG/0.4 ML Syringe SC (06:08)
[2024-06-08] MEDS: CARBIDOPA/LEVODOPA CR 50/200 Tablet PO ×4 (06:09→20:55)
[2024-06-08] MEDS: Pramipexole Di-HCl 1 MG Tablet PO ×4 (06:09→20:55)
[2024-06-08 07:42] VITALS: BP 121/83; PULSE 97; RESP 16; TEMP 36.1; O2SAT 93
[2024-06-08] MEDS: Spironolactone 25 MG Tablet PO (07:50)
[2024-06-08] MEDS: Potassium Chloride Oral Tablet 20 MEQ PO ×2 (07:50→16:19)
[2024-06-08] MEDS: Ensure Plus High Protein 120 ML LIQUID PO ×3 (07:50→16:19)
[2024-06-08] MEDS: Dorzolamide HCL/Timolol 10 ml Bottle EACH EYE ×2 (07:51→20:56)
[2024-06-08] MEDS: Pantoprazole Sodium 40 MG Tablet PO ×2 (07:51→20:55)
[2024-06-08] MEDS: DULoxetine Hcl 60 MG Capsule PO (07:51)
[2024-06-08] MEDS: dilTIAZem CD 120 MG Capsule PO (07:51)
[2024-06-08] MEDS: Memantine Hydrochloride 10 MG Tablet PO ×2 (07:51→20:55)
[2024-06-08] MEDS: prednisoLONE eye drops (5 mL) 1 DROP OPTH.BTL 1 DRP OPHTHALMIC ×2 (07:51→21:10)
[2024-06-08] MEDS: Mupirocin Ointment 22gm Tube 1 APPLIC TOPICAL ×2 (07:52→20:55)
[2024-06-08] MEDS: DAROLUTAMIDE 300 MG 600 MG PO (07:52)
[2024-06-08] MEDS: Acetaminophen 500 MG Tablet 1000 MG PO (11:03)
[2024-06-08 11:06] VITALS: RESP 16; O2SAT 95
--- NOTE | 2024-06-08 13:07 | NURSING ---
pt still having hematuria today, dr dick updated, new order fro xray pelvis/abdomen to check placement of s/p cath
--- NOTE | 2024-06-08 13:10 | RAD_ITS ---
EXAM: XR PELVIS, 1 OR 2 VIEWS CLINICAL INDICATION: Check SP catheter placement. TECHNIQUE: Frontal view of the pelvis. COMPARISON: No relevant prior studies available. FINDINGS: BONES/JOINTS: Unremarkable. No displaced fracture. No destructive or sclerotic lesions. Note that overlapping bowel shadows may however obscure fine detail. Sacroiliac joints are unremarkable. No widening of the pubic symphysis. The articular structures are unremarkable. SOFT TISSUES: Unremarkable. No soft tissue swelling or gas. TUBES, LINES AND DEVICES: There is a catheter in place overlying the mid pelvis. RAD/Pelvis 1 or 2 Views IMPRESSION: Catheter with the distal tip overlying the mid pelvis. Electronically Signed: Ortega Aylaa MD at 16:13 EST ,
--- NOTE | 2024-06-08 13:12 | NURSING ---
pt off unit to xray at this time via WC
[2024-06-08] MEDS: QUEtiapine 25 MG Tablet PO (20:55)
[2024-06-08] MEDS: Latanoprost 0.005% 1 Bottle 1 DRP RIGHT EYE (21:06)
[2024-06-08] MEDS: Senna/Docusate Sodium 1 Tablet PO (21:16)
[2024-06-09] MEDS: Enoxaparin 40 MG/0.4 ML Syringe SC (06:16)
[2024-06-09] MEDS: CARBIDOPA/LEVODOPA CR 50/200 Tablet PO ×4 (06:16→21:31)
[2024-06-09] MEDS: Pramipexole Di-HCl 1 MG Tablet PO ×4 (06:16→21:30)
[2024-06-09] MEDS: Acetaminophen 500 MG Tablet 1000 MG PO ×2 (06:16→21:31)
[2024-06-09 06:29] VITALS: BP 127/85; PULSE 73; RESP 16; TEMP 36.4; O2SAT 96
[2024-06-09 08:10] VITALS: BP 93/56; PULSE 75; RESP 16; TEMP 36.1; O2SAT 97
[2024-06-09] MEDS: Mupirocin Ointment 22gm Tube 1 APPLIC TOPICAL ×2 (08:17→21:29)
[2024-06-09] MEDS: Potassium Chloride Oral Tablet 20 MEQ PO ×2 (08:17→16:57)
[2024-06-09] MEDS: Dorzolamide HCL/Timolol 10 ml Bottle EACH EYE ×2 (08:18→21:30)
[2024-06-09] MEDS: DULoxetine Hcl 60 MG Capsule PO (08:18)
[2024-06-09] MEDS: Memantine Hydrochloride 10 MG Tablet PO ×2 (08:18→21:30)
[2024-06-09] MEDS: prednisoLONE eye drops (5 mL) 1 DROP OPTH.BTL 1 DRP OPHTHALMIC ×2 (08:19→21:30)
[2024-06-09] MEDS: DAROLUTAMIDE 300 MG 600 MG PO (08:19)
[2024-06-09] MEDS: Pantoprazole Sodium 40 MG Tablet PO ×2 (08:19→21:30)
[2024-06-09] MEDS: Ensure Plus High Protein 120 ML LIQUID PO ×3 (08:21→16:58)
[2024-06-09 09:36] VITALS: BP 95/62; PULSE 77
--- NOTE | 2024-06-09 11:38 | NURSING ---
Xray of pelvis read to Dr. Colindres. Catheter is draining w/o difficulties. No new orders.
[2024-06-09 12:41] VITALS: BP 92/59; PULSE 78
--- NOTE | 2024-06-09 12:53 | NURSING ---
Updated Dr. Colindres on patient's decreased BP. HOLD AM Shu and Dale.
[2024-06-09 17:05] VITALS: BP 117/66; PULSE 85
[2024-06-09] MEDS: Latanoprost 0.005% 1 Bottle 1 DRP RIGHT EYE (21:31)
[2024-06-09] MEDS: QUEtiapine 25 MG Tablet PO (21:31)
[2024-06-09] MEDS: MELATONIN 3 MG TABLET PO (21:31)
[2024-06-09] MEDS: Senna/Docusate Sodium 1 Tablet PO (21:31)
[2024-06-10] MEDS: Enoxaparin 40 MG/0.4 ML Syringe SC (05:31)
[2024-06-10] MEDS: Acetaminophen 500 MG Tablet 1000 MG PO (05:31)
[2024-06-10] MEDS: Pramipexole Di-HCl 1 MG Tablet PO ×4 (06:54→21:09)
[2024-06-10] MEDS: CARBIDOPA/LEVODOPA CR 50/200 Tablet PO ×4 (06:54→21:09)
[2024-06-10 07:58] VITALS: BP 110/82; PULSE 85; RESP 17; TEMP 35.9; O2SAT 97
[2024-06-10] MEDS: Mupirocin Ointment 22gm Tube 1 APPLIC TOPICAL ×2 (08:02→21:08)
[2024-06-10] MEDS: Potassium Chloride Oral Tablet 20 MEQ PO ×2 (08:02→16:51)
[2024-06-10] MEDS: dilTIAZem CD 120 MG Capsule PO (08:03)
[2024-06-10] MEDS: prednisoLONE eye drops (5 mL) 1 DROP OPTH.BTL 1 DRP OPHTHALMIC ×2 (08:03→21:08)
[2024-06-10] MEDS: Dorzolamide HCL/Timolol 10 ml Bottle EACH EYE ×2 (08:03→21:07)
[2024-06-10] MEDS: DULoxetine Hcl 60 MG Capsule PO (08:04)
[2024-06-10] MEDS: Memantine Hydrochloride 10 MG Tablet PO ×2 (08:04→21:08)
[2024-06-10] MEDS: Pantoprazole Sodium 40 MG Tablet PO ×2 (08:04→21:09)
[2024-06-10] MEDS: DAROLUTAMIDE 300 MG 600 MG PO (08:04)
[2024-06-10] MEDS: Ensure Plus High Protein 120 ML LIQUID PO ×2 (08:05→16:51)
--- NOTE | 2024-06-10 13:20 | NURSING ---
Family approach nurse. States concerns that UTI has returned. Patient more confused on Tuesday, however today seems better but still off. RN assured family patient will has good days and bad days with his given history. Family interested in ID to be consulted on the case and wondering if patient would benefit from termite exterminator ABT. Communication left for Dr. Colindres. Family appreciative.
[2024-06-10] MEDS: Latanoprost 0.005% 1 Bottle 1 DRP RIGHT EYE (21:08)
[2024-06-10] MEDS: MELATONIN 3 MG TABLET PO (21:09)
[2024-06-10] MEDS: QUEtiapine 25 MG Tablet PO (21:09)
--- NOTE | 2024-06-10 21:30 | NURSING ---
Dressing change completed per order to s/p cath site. Insertion site pink. Small amount of serosanguinous drainage noted. Tolerated dressing change will. Two 2x2 split gauze secured w/ paper tape. Resident denies any discomfort to the affected are while supine in bed. Will continue to monitor.
[2024-06-11] MEDS: Ensure Plus High Protein 120 ML LIQUID PO ×3 (07:04→16:54)
[2024-06-11] MEDS: Potassium Chloride Oral Tablet 20 MEQ PO ×2 (07:05→17:00)
[2024-06-11] MEDS: Pramipexole Di-HCl 1 MG Tablet PO ×4 (07:05→22:24)
[2024-06-11] MEDS: CARBIDOPA/LEVODOPA CR 50/200 Tablet PO ×4 (07:05→22:24)
[2024-06-11] MEDS: Enoxaparin 40 MG/0.4 ML Syringe SC (07:06)
--- NOTE | 2024-06-11 10:26 | MDS.RN ---
Information for the MDS was obtained from review of the clinical record, interview of resident, staff, and direct observation of resident?s care.
[2024-06-11 11:19] VITALS: BP 110/75; PULSE 68; TEMP 36.1; O2SAT 94
[2024-06-11] MEDS: dilTIAZem CD 120 MG Capsule PO (11:25)
[2024-06-11] MEDS: Mupirocin Ointment 22gm Tube 1 APPLIC TOPICAL ×2 (11:25→22:24)
[2024-06-11] MEDS: Memantine Hydrochloride 10 MG Tablet PO ×2 (11:26→22:24)
[2024-06-11] MEDS: Dorzolamide HCL/Timolol 10 ml Bottle EACH EYE ×2 (11:26→22:32)
[2024-06-11] MEDS: DAROLUTAMIDE 300 MG 600 MG PO (11:26)
[2024-06-11] MEDS: DULoxetine Hcl 60 MG Capsule PO (11:26)
[2024-06-11] MEDS: prednisoLONE eye drops (5 mL) 1 DROP OPTH.BTL 1 DRP OPHTHALMIC ×2 (11:27→22:25)
[2024-06-11] MEDS: Senna/Docusate Sodium 1 Tablet PO ×2 (11:28→22:24)
[2024-06-11] MEDS: Pantoprazole Sodium 40 MG Tablet PO ×2 (11:28→22:24)
[2024-06-11 21:25] LABS: Squamous Epithelial Cells - UA 0 SEEN /hpf (0-5)
[2024-06-11 21:29] LABS: Color, Urine Brown (Yellow); Glucose, Dipstick Normal (Normal); Ketone-Dipstick 5 mg/dl (Negative); Leukocyte Esterase-Dipstick 500 /ul (Negative); Nitrite-Dipstick Positive (Negative); Occult Blood-Urine 250 /ul (Negative); Protein-Dipstick 100 mg/dl (Negative); Specific Gravity, Urine 1.025 (1.002-1.030); Urine Bilirubin Dipstick Negative (Negative); Urine Clarity Turbid (Clear); Urine Urobilinogen Normal (Normal)
[2024-06-11 21:37] LABS: Bacteria 3+ /hpf (None Seen); Mucous, Urine 2+ /hpf (<or=2+); Red Blood Cells-Urine 25-50 SEEN /hpf (0-5); Renal Epithelial Cells 5-10 SEEN /hpf (0-5); White Blood Cells 50-100 SEEN /hpf (0-5); White Cell Cast 0-5 SEEN /lpf (None Seen)
[2024-06-11 21:38] LABS: Amorphous Sediment 1+
--- NOTE | 2024-06-11 21:48 | NURSING ---
Dr. Colindres notified of UA and noted increased confusion and restlessness. Reviewed allergies, new order received: Cipro 250mg BID PO x10 days, first dose now, culture pending.
[2024-06-11 22:00] VITALS: PULSE 96; RESP 16; O2SAT 97
[2024-06-11] MEDS: Ciprofloxacin 250 MG Tablet PO (22:24)
[2024-06-11] MEDS: QUEtiapine 25 MG Tablet PO (22:24)
[2024-06-11] MEDS: Latanoprost 0.005% 1 Bottle 1 DRP RIGHT EYE (22:26)
[2024-06-12 04:54] VITALS: PULSE 85; RESP 18; O2SAT 95
[2024-06-12] MEDS: Enoxaparin 40 MG/0.4 ML Syringe SC (05:27)
[2024-06-12] MEDS: Pramipexole Di-HCl 1 MG Tablet PO ×4 (06:04→20:00)
[2024-06-12] MEDS: CARBIDOPA/LEVODOPA CR 50/200 Tablet PO ×4 (06:04→20:02)
[2024-06-12 06:40] LABS: PSA,Total- Diagnostic 2.47 ng/mL (0.0-4.0)
[2024-06-12] MEDS: Ensure Plus High Protein 120 ML LIQUID PO ×3 (07:52→17:42)
[2024-06-12] MEDS: Potassium Chloride Oral Tablet 20 MEQ PO ×2 (07:54→17:40)
[2024-06-12 09:00] VITALS: BMI 28.4
[2024-06-12] MEDS: Ciprofloxacin 250 MG Tablet PO ×2 (11:01→19:59)
[2024-06-12] MEDS: Pantoprazole Sodium 40 MG Tablet PO ×2 (11:02→20:01)
[2024-06-12] MEDS: dilTIAZem CD 120 MG Capsule PO (11:03)
[2024-06-12] MEDS: Memantine Hydrochloride 10 MG Tablet PO ×2 (11:03→20:00)
[2024-06-12] MEDS: Senna/Docusate Sodium 1 Tablet PO ×2 (11:03→20:01)
[2024-06-12] MEDS: DULoxetine Hcl 60 MG Capsule PO (11:03)
[2024-06-12] MEDS: DAROLUTAMIDE 300 MG 600 MG PO (11:04)
[2024-06-12] MEDS: prednisoLONE eye drops (5 mL) 1 DROP OPTH.BTL 1 DRP OPHTHALMIC ×2 (11:05→20:00)
[2024-06-12] MEDS: Dorzolamide HCL/Timolol 10 ml Bottle EACH EYE ×2 (11:10→19:59)
[2024-06-12] MEDS: Mupirocin Ointment 22gm Tube 1 APPLIC TOPICAL ×2 (11:10→19:58)
[2024-06-12] MEDS: Menthol/Lanolin/Calamine/Znox 113 GM Tube 1 APPLIC TOPICAL ×2 (11:14→20:08)
--- NOTE | 2024-06-12 14:44 | CASEMGMT ---
Addendum entered by Tanisha Mccann 06/12/24 16:22: Insurance issued LCD 06/14, DC 06/15. present in room. SW updated on DC date. agreeable and family to transport. requesting [facility], who pt used prior. stated pt was active with [facility] prior and would like to restart services. SW agreed to notify. SW phoned [facility]/SN/SW SW sent email to [facility] notifying pt of DC. Palliative confirmed pt is active and will schedule a visit with . Plan: DC home with and [employer] 06/15, [facility] PT/OT/SN/SW, [facility] Original Note: Social Work and dtr present in room, requesting to speak with this worker. SW explained insurance outcome has not yet been received and unsure if insurance is aware pt has new UTI. Though, UTI can be treated at a lower level of care, per insurance standards. SW inquired about plan for DC. RENETTA was present and answered questions with LOF. Family stated additional [employer]VER [employer] has been hired to assist pt in the home twice a day, 5 days a week. Family stated they can fill in the gaps. SW reiterated pt is 24/01 care. Family expressed understanding. SW to coordinate skilled HHC PT/OT/SN/SW. Family appreciative. SW will update with insurance outcome once known. Tanisha Mccann, LUIS RODRIGUEZW
[2024-06-12 16:00] VITALS: BP 101/69; PULSE 75; RESP 16; TEMP 36.1; O2SAT 95
[2024-06-12] MEDS: MELATONIN 3 MG TABLET PO (19:58)
[2024-06-12] MEDS: QUEtiapine 25 MG Tablet PO (20:01)
[2024-06-12] MEDS: Latanoprost 0.005% 1 Bottle 1 DRP RIGHT EYE (20:02)
--- NOTE | 2024-06-12 21:26 | DS.PCM_ITS ---
Providers Date of Admission: 05/29/24 Primary Care Physician: Dr. Masoud Rosa MD Reason For Visit: URINARY RETENTION Diagnosis Discharge Diagnosis (1) Debility: Status: Acute Code(s): R53.81 - Other malaise (2) Urinary retention: Status: Acute Code(s): R33.9 - Retention of urine, unspecified (3) Urinary tract infection due to Pseudomonas aeruginosa: Status: Inactive Code(s): N39.0 - Urinary tract infection, site not specified; B96.5 - Pseudomonas (aeruginosa) (mallei) (pseudomallei) as the cause of diseases classified elsewhere (4) History of suprapubic catheter: Status: Acute Code(s): Z98.890 - Other specified postprocedural states (5) Parkinsons disease: Status: Acute Code(s): G20 - Parkinson's disease Qualifiers: Dyskinesia presence: unspecified whether dyskinesia Fluctuating manifestations: with fluctuating manifestations Qualified Code(s): G20.A2 - Parkinson's disease without dyskinesia, with fluctuations (6) Prostate cancer: Status: Acute Code(s): C61 - Malignant neoplasm of prostate (7) Atrial fibrillation: Status: Inactive Code(s): I48.91 - Unspecified atrial fibrillation (8) Glaucoma: Status: Acute Code(s): H40.9 - Unspecified glaucoma (9) Depression: Status: Acute Code(s): F32.A - Depression, unspecified (10) Orthostatic hypotension: Status: Acute Code(s): I95.1 - Orthostatic hypotension (11) Vertigo: Status: Resolved Code(s): R42 - Dizziness and giddiness (12) Insomnia: Status: Acute Code(s): G47.00 - Insomnia, unspecified (13) Parkinson's disease dementia: Status: Acute Code(s): G20.A1 - Parkinson's disease without dyskinesia, without mention of fluctuations; F02.80 - Dementia in other diseases classified elsewhere, unspecified severity, without behavioral disturbance, psychotic disturbance, mood disturbance, and anxiety (14) Hypokalemia: Status: Resolved Code(s): E87.6 - Hypokalemia (15) Visual hallucinations: Status: Acute Code(s): R44.1 - Visual hallucinations Plan 78 year old male with below past medical history hospitalized for urinary retention, status post suprapubic catheter placement, complicated by pseudomonas urinary tract infection, admitted to TCU with debility, here for rehabilitation, strengthening, prior to discharge home with . * Debility - PT/OT. * Dysphagia - ST. * Pain - Tylenol 1000mg q6 prn pain (1-10). * Bowel - senna/colace 1 tablet bid, Magnesium citrate 300mL daily prn. * Adult immunization - Administer pneumonia vaccine, covid vaccine, flu vaccine as appropriate. * DVT prophylaxis - Lovenox 40mg sc daily. * Urinary retention - s/p SP catheter. * Parkinson Disease - Sinemet 50/200mg po qachs. * Prostate cancer - Nubeqa 600mg daily. * Atrial fibrillation - Diltiazem 120mg daily, anticoagulation held due to falls. * Glaucoma - Dorzolamide 1-2 gtt ou bid, Latanoprost 1gtt od qhs. 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 * Nutrition - Ensure Plus 120mL po tidcm. * Vertigo - Meclizine 12.5mg tid prn. * Insomnia - Melatonin 3mg qhs prn. * Parkinson Disease Dementia - Memantine 10mg bid. * Skin irritation - Bactroban topical bid. * Gastric ulcer - Pantoprazole 40mg bid. * P. Aeruginosa - Zosyn 3.375gm iv q8 thru 06/06/2024. * Hypokalemia - KCL 20meq bid. * Visual hallucinations - Seroquel 25mg qhs, chronic termite control servicer use, GDR not recommended. * Ocular inflammation - Prednisolone 1gtt ou q12 Medications at Discharge Home Medications carbidopa ER 50 mg-levodopa 200 mg tablet,extended release 1 tablet PO 4X/DAY parkinsons 09/25/20 dorzolamide 22.3 mg-timolol 6.8 mg/mL eye drops 1 - 2 drp ophthalmic (eye) BID glaucoma 09/25/20 latanoprost 0.005 % eye drops 1 drp RIGHT EYE QHS eye he 09/10/21 memantine 10 mg tablet 10 mg PO BID MEMORY 09/10/21 inhalational spacing device (Space Chamber) #1 ea 08/08/23 potassium chloride 20 mEq tablet,extended release(part/cryst) 20 meq PO BIDCM Supplement #60 tabs 11/17/23 diltiazem HCl 120 mg capsule,24 hr,extended release See Rx Instructions .Route .COMPLEX heart #90 CAPSULES 02/01/24 darolutamide 300 mg tablet (Nubeqa) 600 mg PO DAILY Prostate 02/04/24 duloxetine 60 mg capsule,delayed release 60 mg PO QDAY Mood 02/04/24 mupirocin 2 % topical ointment 1 applic topical BID Skin 02/22/24 pantoprazole 40 mg tablet,delayed release 40 mg PO BID stomach 30 days #60 tabs 03/06/24 meclizine 12.5 mg tablet 12.5 mg PO TID PRN PRN Dizziness #0 tabs 05/18/24 melatonin 3 mg tablet 3 mg PO QHS PRN PRN Insomnia #0 tabs 05/18/24 quetiapine 25 mg tablet 25 mg PO QHS confusion, hallucinations #0 tabs 05/18/24 prednisolone acetate 1 % eye drops,suspension 1 drp ophthalmic (eye) Q12H Eye drops 05/29/24 acetaminophen 500 mg tablet 1,000 mg (2 x 500 mg) PO Q6H PRN PRN Pain 1-10 #0 tabs 06/12/24 ciprofloxacin HCl 250 mg tablet 250 mg PO BID 6 days #12 tabs 06/12/24 pramipexole 1 mg tablet 1 mg PO ACHS 30 days #120 tabs 06/12/24 Hospital Course Operations None Procedures None Summary of Care Provided Minutes Spent on Discharge: 35 Hospital Course: 78 year old male with below past medical history hospitalized for urinary retention, status post suprapubic catheter placement, complicated by pseudomonas urinary tract infection, admitted to TCU with debility, here for rehabilitation, strengthening, prior to discharge home with . 06/11/2024 Resident change in mental status, UA c/w UTI, Treat with Cipro 250mg po bid x 7 days, urine culture pending. Discharge home with and [facility] 06/15/2024, [facility] PT/OT/SN/SW, [facility]. Physical Exam Const alert General Appearance: cooperative HEENT normocephalic Eyes PERRL and EOMs intact bilaterally Neck supple, no JVD and no carotid bruits Resp normal respiratory effort, normal air movement and clear to auscultation bilaterally Cardio regular rate and regular rhythm GI normal to inspection, nondistended, normoactive bowel sounds, non-tender and non-distended Bladder / Kidney Exam: catheter in place suprapubic Extremity normal capillary refill General Extremity: Negative for edema Skin no rashes or lesions noted General Skin Exam: no breakdown Psych affect normal Appearance: appropriate Weight / BMI Weight Weight: 82.191 kg Body Mass Index (BMI) 28.4 ABG / Lab / Microbiology Data 06/06/24 05:28 06/06/24 05:28 Laboratory: Laboratory Results - last 24 hr 06/11/24 14:25: Urine Color Brown, Urine Clarity Turbid, Urine pH 5.0, Ur Specific [place] 1.025, Urine Protein 100 H, Urine Glucose (UA) Normal, Urine Ketones 5 H, Urine Occult Blood 250 H, Urine Nitrite Positive H, Urine Bilirubin Negative, Urine Urobilinogen Normal, Ur Leukocyte Esterase 500 H, Urine RBC 25- 50 SEEN, Urine WBC 50-100 SEEN, Ur Squamous Epith Cells 0 SEEN, Ur Renal Epithelial Cell 5-10 SEEN, Amorphous Sediment 1+, Urine Bacteria 3+, WBC Casts 0-5 SEEN, Urine Mucus 2+ 06/12/24 05:26: Total PSA 2.47 Microbiology: Microbiology 06/11/24 14:25 Urine Catheter - Somers Urine Culture - Preliminary Gram negative mady 06/11/24 05:30 Nasal Secretion SARS-CoV-2 Antigen (Rapid) - Final 06/07/24 08:00 Urine Catheter - Catheter Urine Culture - Final Culture exhibits no growth. 06/04/24 06:20 Nasal Secretion SARS-CoV-2 Antigen (Rapid) - Final D/C Instructions Discharge Diet: No restrictions Discharge Activity: Return to Normal Activity, May Shower and Use Walker Weight Bearing Status: Weight bearing as tolerated Call your doctor if you observe: Fever of 101 or Higher, Inability to urinate, Inability to have a bowel movement, Shortness of breath, Dizziness, Fainting spells, Swelling in the ankles, Chest pain and Uncontrolled pain DC O2, CPAP, BIPAP Needs Additional Home O2 Discharge instructions: No DC home with Oxygen: No Additional Instructions: Discharge home with and [employer]ACH[employer]PA[employer] 06/15/2024, [facility] PT/OT/SN/SW, [facility]. Please Follow Up With: Robert Prather MD When: 2 weeks. Meaningful Use Info Meaningful Use Meaningful Use Diagnoses (Choose all that apply): None applicable Ischemic Stroke Statin Dosing Therapy Reference: STATIN DOSE THERAPY REFERENCE: * Patients > 75 years receive moderate or high dose statin therapy. * Patients 75 years or YOUNGER should receive HIGH intensity statin dose unless contraindicated. You will be required to document reason for non-treatment if statin daily dose does not meet guidelines. HIGH DOSE STATIN THERAPY DAILY Atorvastatin > than or = to 40 mg Rosuvastatin > than or = to 20 mg Amlodipine + Atorvastatin > than or = to 2.5/40 mg Ezetimibe + Simvastatin 10/80 mg Simvastatin 80mg Discharge Plan Admission Admit Date/Time: 05/29/24 16:44 Primary Reason for Your Visit: Debility. Attending Provider: Tima Colindres Chi Primary Care Provider: Masoud Rosa Instructions Additional Instructions / Restrictions: Discharge home with and [employer] REPA[employer] 06/15/2024, [facility] PT/OT/SN/SW, [facility]. Discharge Orders/Prescriptions Prescriptions: New acetaminophen 500 mg Tablet 1,000 mg PO Q6H PRN PRN (Reason: Pain 1-10) Qty: 0 0RF pramipexole 1 mg Tablet 1 mg PO ACHS 30 Days Qty: 120 0RF ciprofloxacin HCl 250 mg Tablet 250 mg PO BID 6 Days Qty: 12 0RF Continued carbidopa-levodopa 50-200 mg tablet extended release 1 tablet PO 4X/DAY Patient Comments: verified with -pt only takes 1 of this strength 4x/day Rx Instructions: TAKE 1 IN THE MORNING, 1 AT LUNCH, 1 IN THE EVENING, AND 1 AT BEDTIME dorzolamide-timolol 22.3-6.8 mg/mL drops 1 - 2 drp OPHTHALMIC BID duloxetine 60 mg capsule,delayed release(DR/EC) 60 mg PO QDAY Nubeqa 300 mg tablet 600 mg PO DAILY Patient Comments: PT FAMILY AWARE THEY WILL HAVE TO BRING MED FROM HOME latanoprost 0.005 % drops 1 drp RIGHT EYE QHS memantine 10 mg tablet 10 mg PO BID quetiapine 25 mg Tablet 25 mg PO QHS Qty: 0 0RF meclizine 12.5 mg Tablet 12.5 mg PO TID PRN PRN (Reason: Dizziness) Qty: 0 0RF melatonin 3 mg Tablet 3 mg PO QHS PRN PRN (Reason: Insomnia) Qty: 0 0RF prednisolone acetate 1 % drops,suspension 1 drp ophthalmic (eye) Q12H Patient Comments: [NO ORIGINAL SIG] potassium chloride 20 mEq Tablet,Er Particles/Crystals 20 meq PO BIDCM Qty: 60 0RF mupirocin 2 % ointment 1 applic topical BID pantoprazole 40 mg tablet,delayed release (DR/EC) 40 mg PO BID 30 Days Qty: 60 0RF diltiazem HCl 120 mg capsule,extended release 24 hr See Rx Instructions .ROUTE .COMPLEX Qty: 90 3RF Dose Instruction: take 1 capsule by mouth once daily Rx Instructions: take 1 capsule by mouth once daily Discontinued ascorbic acid (vitamin C) 1,000 mg tablet 1 g PO Q6H acetaminophen 325 mg Tablet 650 mg PO Q6H PRN PRN (Reason: Pain 1-10) Qty: 0 0RF fludrocortisone 0.1 mg Tablet 0.05 mg PO BREAKFAST Qty: 0 0RF Ensure Plus High Protein 0.08 gram-1.5 kcal/mL Liquid 120 ml PO TIDCM Qty: 0 0RF No Action (DME) Space Chamber Spacer See Rx Instructions .Route Qty: 1 0RF Rx Instructions: As directed Referrals / Follow Up: Masoud Rosa MD [Primary Care Provider] - ( will make appt ) Robert Prather MD [Med Staff - Active Staff] - (Follow-up right after DC from TCU for injection. ) Disposition Disposition (needs filled in before D/C Order can be placed): Home Health Service
[2024-06-13] MEDS: Enoxaparin 40 MG/0.4 ML Syringe SC (05:59)
[2024-06-13 06:00] LABS: Absolute Lymphocyte Count 1.23 X10^3/uL (0.83-4.51); Absolute Neutrophil Count 3.5 X10^3/uL (2.0-7.7); Basophil# 0.03 X10^3/uL; Basophil% 0.5 % (0-1); Eosinophil# 0.35 X10^3/uL; Eosinophils% 6.1 % (0-5); Hematocrit 40.6 % (40-54); Hemoglobin 12.7 g/dL (13.0-16.5); Lymphocyte # 1.23 X10^3/ul (0.83-4.51); Lymphocyte % 21.4 % (19-41); Mean Corp Hgb Conc 31.3 g/dL (32-36); Mean Corpuscular Hgb 23.9 pg (27.0-32.0); Mean Corpuscular Volume 76.3 fL (80-94); Mean Platelet Vol. 11.1 fl (6.2-12.0); Monocyte# 0.64 X10^3/uL; Monocyte% 11.1 % (0-10); NRBC Flagged by Analyzer 0 % (0-5); Neutrophil # 3.45 X10^3/uL (2.7-7.7); Neutrophil % 59.9 % (47-70); POSITIVE MORPHOLOGY YES; Platelet Count 240 K/mm3 (150-450); RBC Distribution Width CV 22.6 % (11.6-14.6); RBC Distribution Width SD 60.1 fl (35.1-43.9); Red Blood Count 5.32 M/mm3 (4.6-6.2); White Blood Count 5.8 K/mm3 (4.4-11.0)
[2024-06-13] MEDS: CARBIDOPA/LEVODOPA CR 50/200 Tablet PO ×4 (06:00→21:36)
[2024-06-13] MEDS: Pramipexole Di-HCl 1 MG Tablet PO ×4 (06:00→21:36)
[2024-06-13 06:10] LABS: Differential Indicated SCAN CRITERIA MET
[2024-06-13 06:50] LABS: Anion Gap 3 (5-15); BUN 20 mg/dL (7-18); BUN/Creat Ratio 21.2 RATIO (10-20); Calcium,Total 9.1 mg/dL (8.5-10.1); Chloride 106 mmol/L (98-107); Creatinine, Serum 0.94 mg/dL (0.70-1.30); EST Glomerular Filtration Rate 82 mL/min (>60); Est Glom Filt Rate - Afr Amer 99 mL/min (>60); Estimated Creatinine Clearance 64.31 ml/min; Glucose 98 mg/dL (74-106); Potassium 4.3 mmol/L (3.5-5.1); Sodium Level 137 mmol/L (136-145)
[2024-06-13 07:14] LABS: Differential Comment SCANNED
[2024-06-13 09:00] VITALS: BP 109/69; PULSE 90; RESP 18; TEMP 35.3; O2SAT 95
[2024-06-13] MEDS: Memantine Hydrochloride 10 MG Tablet PO ×2 (09:39→21:37)
[2024-06-13] MEDS: Senna/Docusate Sodium 1 Tablet PO ×2 (09:39→21:43)
[2024-06-13] MEDS: Ciprofloxacin 250 MG Tablet PO (09:39)
[2024-06-13] MEDS: DULoxetine Hcl 60 MG Capsule PO (09:39)
[2024-06-13] MEDS: Pantoprazole Sodium 40 MG Tablet PO ×2 (09:39→21:38)
[2024-06-13] MEDS: dilTIAZem CD 120 MG Capsule PO (09:40)
[2024-06-13] MEDS: DAROLUTAMIDE 300 MG 600 MG PO (09:40)
[2024-06-13] MEDS: Potassium Chloride Oral Tablet 20 MEQ PO ×2 (09:40→16:41)
[2024-06-13] MEDS: Menthol/Lanolin/Calamine/Znox 113 GM Tube 1 APPLIC TOPICAL ×2 (09:40→21:43)
[2024-06-13] MEDS: Dorzolamide HCL/Timolol 10 ml Bottle EACH EYE ×2 (09:41→21:43)
[2024-06-13] MEDS: prednisoLONE eye drops (5 mL) 1 DROP OPTH.BTL 1 DRP OPHTHALMIC ×2 (09:41→21:37)
[2024-06-13] MEDS: Ensure Plus High Protein 120 ML LIQUID PO ×2 (09:46→13:54)
--- NOTE | 2024-06-13 13:52 | PCM.CONS.GEN ---
Assessment & Plan Assessment/Plan (1) History of suprapubic catheter: (2) UTI (urinary tract infection): QUALIFIERS: Urinary tract infection type: site unspecified Hematuria presence: without hematuria Qualified Code(s): N39.0 - Urinary tract infection, site not specified PLAN: Urine again with PsA. Spoke with micro, PsA is now I to zosyn and cefepime. Finished zosyn 06/06/24. Will change cipro to cefepime and requested avycaz/zerbaxa testing. Will follow, thank you HPI Consult Data Date of Consult: 06/13/24 HPI Narrative Reason for Consultation: uti HPI Narrative: KAREN MOYA, is a 79 M who presents with several days increased confusion, hallucinations. Sx started after recently completing abx for uti. Started on cipro, doing a little better per , still some hallucinations. Has suprapubic cath in place. No fever, no abd pain. Full ROS performed and neg except as noted above. [facility] Medical History Urinary retention MRSA (methicillin resistant staph aureus) culture positive BPH (benign prostatic hyperplasia) Anxiety Depression Non-smoker History of Parkinson disease GI bleed Ambulatory dysfunction Wound of left foot Mitral valve insufficiency Lower extremity edema History of blistering sunburn Non-pressure chronic ulcer of left calf with fat layer exposed Obstructive uropathy Bladder stone Urethral stricture Parkinsons disease Chronic radiation cystitis History of prostate cancer DVT (deep venous thrombosis) Bladder outflow obstruction Hypertension Persistent atrial fibrillation Cardiomyopathy in other diseases classified elsewhere Other secondary pulmonary hypertension Home Medications ?Medication ?Instructions ?Recorded ?Last Taken ?Type carbidopa ER 50 mg-levodopa 200 mg 1 tablet PO 4X/DAY parkinsons 09/25/20 05/18/24 History tablet,extended release dorzolamide 22.3 mg-timolol 6.8 1 - 2 drp ophthalmic (eye) BID 09/25/20 05/18/24 History mg/mL eye drops glaucoma latanoprost 0.005 % eye drops 1 drp RIGHT EYE QHS eye he 09/10/21 05/17/24 History memantine 10 mg tablet 10 mg PO BID MEMORY 09/10/21 05/18/24 History inhalational spacing device (Space #1 ea 08/08/23 Unknown Rx Chamber) potassium chloride 20 mEq 20 meq PO BIDCM Supplement #60 tabs 11/17/23 05/14/24 Rx tablet,extended release(part/cryst) diltiazem HCl 120 mg capsule,24 See Rx Instructions .Route 02/01/24 05/15/24 Rx hr,extended release .COMPLEX heart #90 CAPSULES darolutamide 300 mg tablet (Nubeqa) 600 mg PO DAILY Prostate 02/04/24 05/17/24 History duloxetine 60 mg capsule,delayed 60 mg PO QDAY Mood 02/04/24 05/18/24 History release mupirocin 2 % topical ointment 1 applic topical BID Skin 02/22/24 02/21/24 History pantoprazole 40 mg tablet,delayed 40 mg PO BID stomach 30 days #60 03/06/24 05/18/24 Rx release tabs meclizine 12.5 mg tablet 12.5 mg PO TID PRN PRN Dizziness 05/18/24 Unknown Rx #0 tabs melatonin 3 mg tablet 3 mg PO QHS PRN PRN Insomnia #0 05/18/24 05/16/24 Rx tabs quetiapine 25 mg tablet 25 mg PO QHS confusion, 05/18/24 05/17/24 Rx hallucinations #0 tabs prednisolone acetate 1 % eye 1 drp ophthalmic (eye) Q12H Eye 05/29/24 Unknown History drops,suspension drops acetaminophen 500 mg tablet 1,000 mg (2 x 500 mg) PO Q6H PRN 06/12/24 Unknown Rx PRN Pain 1-10 #0 tabs ciprofloxacin HCl 250 mg tablet 250 mg PO BID 6 days #12 tabs 06/12/24 Unknown Rx pramipexole 1 mg tablet 1 mg PO ACHS 30 days #120 tabs 06/12/24 Unknown Rx Allergy/AdvReac Type Severity Reaction Status Date / Time lidocaine Allergy Angioedema Verified 05/26/24 14:26 peppermint Allergy Angioedema Verified 05/26/24 14:26 phenylephrine Allergy Angioedema Verified 05/26/24 14:26 doxycycline AdvReac Intermediate SUNBURN Verified 05/26/24 14:26 Family History Brother Atrial fibrillation Hypertension Mother Heart disease CAD (coronary artery disease) Myocardial infarction Hypertension Heart failure Father Heart disease Colon cancer Ruptured aortic aneurysm Surgical History History of suprapubic catheter History of incision and drainage (~09/2021) History of cataract extraction History of hernia repair Social History household members: spouse Smoking Status: Never smoker alcohol intake: never substance use type: does not use caffeine: Yes Type: carbonated beverages Number of servings: 1 Physical Exam Const alert, oriented x3 and no apparent distress General Appearance: cooperative HEENT normocephalic and head/scalp atraumatic Eyes PERRL and EOMs intact bilaterally Neck supple and No nodes Resp normal air movement and clear to auscultation bilaterally Cardio regular rate and regular rhythm GI soft to palpation, non-tender and non-distended Extremity General Extremity: Negative for edema Skin no rashes or lesions noted Neuro CN's II-XII intact bilaterally Neuro Narrative: some hallucinations Lab / Micro Data Attestation: I reviewed the patient's lab results. 06/13/24 05:30 06/13/24 05:30 Labs: Laboratory Results - last 24 hr 06/13/24 05:30: WBC 5.8, RBC 5.32, Hgb 12.7 L, Hct 40.6, MCV 76.3 L, MCH 23.9 L, MCHC 31.3 L, RDW Std Deviation 60.1 H, RDW Coeff of Manuela 22.6 H, Plt Count 240, MPV 11.1, Immature Gran % (Auto) 1.000 H, Neut % (Auto) 59.9, Lymph % (Auto) 21.4, Sierra % (Auto) 11.1 H, Eos % (Auto) 6.1 H, Baso % (Auto) 0.5, Absolute Neuts (auto) 3.5, Absolute Lymphs (auto) 1.23, Nucleated RBC % 0, Differential Comment SCANNED, Sodium 137, Potassium 4.3, Chloride 106, Carbon Dioxide 28.0, Anion Gap 3 L, BUN 20 H, Creatinine 0.94, Estim Creat Clear Calc 64.31, Est GFR (MDRD) Af Amer 99, Est GFR (MDRD) Non-Af 82, BUN/Creatinine Ratio 21.2 H, Glucose 98, Calcium 9.1 Micro: Microbiology 06/11/24 14:25 Urine Catheter - Somers Urine Culture - Preliminary Pseudomonas aeruginosa
--- NOTE | 2024-06-13 14:18 | NURSING ---
Addendum entered by Luna Abraham 06/13/24 14:30: Received response from [employer], We can rescind the NOMNC. Let me send this to the MD with the updated information and I?ll get back to you once she approves. Original Note: Sent an email to the [employer] to update them on the patient's new orders per Dr. Cervantes: Cefepime HCl 2gm IV q8h. The patient was issued a NOMNC on 06/12/2024 and is scheduled for discharge on 06/15/2024. Advised reviewer patient cannot discahrge home on IV ATB's as there is no one that will be able to administer the medication. Awaiting a response from the reviewer.
[2024-06-13] MEDS: Cefepime HCl 2 GM in 0.9% Normal Saline (100mL MB+) 100 ML IV ×2 (15:23→21:34)
--- NOTE | 2024-06-13 16:33 | CASEMGMT ---
Addendum entered by Tanisha Mccann 06/13/24 16:36: SW phoned [facility] to update and emailed palliative care. Original Note: Social Work SW notified by nursing that ID DR ordered IV ATB Q8 for 7-14 days. This creates a barrier for a safe discharge. present in room. SW spoke with to acknowledge the change and assured the team is looking into a solution and will notify once outcome is known. appreciative. The insurance was updated with new orders and MD rescinded NOMNC, approved additional stay, with NRD 06/18. SW presented to room to update pt and . both thankful. IDT updated. Plan: DC postponed d/t new IV ATB order. Next insurance update is 06/18 LIUS Pedroza
[2024-06-13] MEDS: Acetaminophen 500 MG Tablet 1000 MG PO (16:40)
[2024-06-13 21:32] VITALS: PULSE 80; RESP 16; O2SAT 98
[2024-06-13] MEDS: MELATONIN 3 MG TABLET PO (21:34)
[2024-06-13] MEDS: QUEtiapine 25 MG Tablet PO (21:38)
[2024-06-13] MEDS: Latanoprost 0.005% 1 Bottle 1 DRP RIGHT EYE (21:38)
[2024-06-13] MEDS: Mupirocin Ointment 22gm Tube 1 APPLIC TOPICAL (21:42)
[2024-06-13] MEDS: 0.9% Saline Lock 10 ML Syringe IV (22:10)
[2024-06-14] MEDS: Cefepime HCl 2 GM in 0.9% Normal Saline (100mL MB+) 100 ML IV ×3 (06:04→21:27)
[2024-06-14] MEDS: 0.9% Saline Lock 10 ML Syringe IV ×3 (06:04→22:20)
[2024-06-14] MEDS: Enoxaparin 40 MG/0.4 ML Syringe SC (06:05)
[2024-06-14] MEDS: Pramipexole Di-HCl 1 MG Tablet PO ×4 (06:05→21:31)
[2024-06-14] MEDS: CARBIDOPA/LEVODOPA CR 50/200 Tablet PO ×4 (06:05→21:31)
[2024-06-14] MEDS: Mupirocin Ointment 22gm Tube 1 APPLIC TOPICAL ×2 (08:44→21:28)
[2024-06-14] MEDS: Potassium Chloride Oral Tablet 20 MEQ PO ×2 (08:44→16:50)
[2024-06-14] MEDS: Memantine Hydrochloride 10 MG Tablet PO ×2 (08:45→21:31)
[2024-06-14] MEDS: dilTIAZem CD 120 MG Capsule PO (08:45)
[2024-06-14] MEDS: DULoxetine Hcl 60 MG Capsule PO (08:45)
[2024-06-14] MEDS: Dorzolamide HCL/Timolol 10 ml Bottle EACH EYE ×2 (08:45→21:41)
[2024-06-14] MEDS: DAROLUTAMIDE 300 MG 600 MG PO (08:46)
[2024-06-14] MEDS: prednisoLONE eye drops (5 mL) 1 DROP OPTH.BTL 1 DRP OPHTHALMIC ×2 (08:46→21:32)
[2024-06-14] MEDS: Pantoprazole Sodium 40 MG Tablet PO ×2 (08:46→21:31)
[2024-06-14] MEDS: Senna/Docusate Sodium 1 Tablet PO ×2 (08:46→21:31)
[2024-06-14] MEDS: Lactobacillis Acidophilus 1 CAP PO ×2 (08:54→21:31)
[2024-06-14] MEDS: Ensure Plus High Protein 120 ML LIQUID PO ×3 (08:54→16:50)
[2024-06-14] MEDS: Menthol/Lanolin/Calamine/Znox 113 GM Tube 1 APPLIC TOPICAL ×2 (08:59→21:27)
[2024-06-14 15:17] VITALS: BP 118/74; PULSE 98; RESP 16; TEMP 36.3; O2SAT 93
--- NOTE | 2024-06-14 17:02 | NURSING ---
Snow educated on suprapubic catheter care. Educated how to clean site and check for redness, drainage, and increased pain around site. Educated how to change dressing, how to use stat-lock and to monitor urine. denies questions at this time but is willing to receive education up until discharge and willing to do return demonstration.
[2024-06-14] MEDS: Acetaminophen 500 MG Tablet 1000 MG PO (21:26)
[2024-06-14] MEDS: MELATONIN 3 MG TABLET PO (21:26)
[2024-06-14] MEDS: QUEtiapine 25 MG Tablet PO (21:32)
[2024-06-14] MEDS: Latanoprost 0.005% 1 Bottle 1 DRP RIGHT EYE (21:32)
[2024-06-15] MEDS: Cefepime HCl 2 GM in 0.9% Normal Saline (100mL MB+) 100 ML IV ×3 (05:55→21:24)
[2024-06-15] MEDS: 0.9% Saline Lock 10 ML Syringe IV ×4 (05:56→21:24)
[2024-06-15] MEDS: Enoxaparin 40 MG/0.4 ML Syringe SC (06:06)
[2024-06-15] MEDS: CARBIDOPA/LEVODOPA CR 50/200 Tablet PO ×4 (06:07→21:26)
[2024-06-15] MEDS: Pramipexole Di-HCl 1 MG Tablet PO ×4 (06:07→21:25)
[2024-06-15 06:31] VITALS: PULSE 84; RESP 18; O2SAT 99
[2024-06-15] MEDS: Potassium Chloride Oral Tablet 20 MEQ PO ×2 (07:56→16:43)
[2024-06-15] MEDS: Ensure Plus High Protein 120 ML LIQUID PO ×2 (07:56→16:49)
[2024-06-15] MEDS: Lactobacillis Acidophilus 1 CAP PO ×2 (07:56→21:27)
[2024-06-15] MEDS: Dorzolamide HCL/Timolol 10 ml Bottle EACH EYE ×2 (07:57→21:39)
[2024-06-15] MEDS: dilTIAZem CD 120 MG Capsule PO (07:57)
[2024-06-15] MEDS: Memantine Hydrochloride 10 MG Tablet PO ×2 (07:57→21:24)
[2024-06-15] MEDS: DULoxetine Hcl 60 MG Capsule PO (07:57)
[2024-06-15] MEDS: prednisoLONE eye drops (5 mL) 1 DROP OPTH.BTL 1 DRP OPHTHALMIC ×2 (07:57→21:40)
[2024-06-15] MEDS: DAROLUTAMIDE 300 MG 600 MG PO (07:58)
[2024-06-15] MEDS: Mupirocin Ointment 22gm Tube 1 APPLIC TOPICAL ×2 (07:58→21:44)
[2024-06-15] MEDS: Senna/Docusate Sodium 1 Tablet PO ×2 (07:58→21:27)
[2024-06-15] MEDS: Pantoprazole Sodium 40 MG Tablet PO ×2 (07:58→21:25)
[2024-06-15] MEDS: Menthol/Lanolin/Calamine/Znox 113 GM Tube 1 APPLIC TOPICAL ×2 (08:05→21:28)
[2024-06-15 14:45] VITALS: BP 111/76; PULSE 83; RESP 14; TEMP 36.6; O2SAT 98
--- NOTE | 2024-06-15 14:46 | PCM.PN.ID ---
Physical Exam Narrative Feeling better, no more hallucinations. No fever, no abd pain. Const alert and no apparent distress General Appearance: cooperative Resp normal air movement and clear to auscultation bilaterally Cardio regular rate and regular rhythm GI soft to palpation, non-tender and non-distended Skin no rashes or lesions noted ID ID: Route of nutrition/ use of supplements: [] Nutritional Intake: [] IV Site: [] Somers Catheter: [] Assessment & Plan Assessment/Plan (1) History of suprapubic catheter: (2) UTI (urinary tract infection): QUALIFIERS: Urinary tract infection type: site unspecified Hematuria presence: without hematuria Qualified Code(s): N39.0 - Urinary tract infection, site not specified PLAN: Urine again with PsA. Spoke with micro, PsA is now I to zosyn and cefepime. Finished zosyn 06/06/24. Sx much improved, will continue cefepime and requested avycaz/zerbaxa testing. Given colonization of catheter, might benefit from methenamine for intermediate uti prophylaxis once active infection has been treated. Will follow
--- NOTE | 2024-06-15 16:31 | CASEMGMT ---
Social Work CARMEN received call from Johnson at [facility] requesting clinicals to review appropriateness for pt in [place]. CARMEN was unaware of family conversations with [facility], and will speak with to ensure approval to send referral. Johnson understood and stated the plan for pt to return home at DC from TCU, but if it that is unsuccessful, the family is interested if pt would be appropriate for [place], and [facility] wanted to review clinicals to make that determination early. CARMEN appreciative of explanation. CARMEN phoned and confirmed above, approved for referral to [facility]. CARMEN faxed referral to [facility]. Tanisha Mccann, LUIS RODRIGUEZW
[2024-06-15] MEDS: QUEtiapine 25 MG Tablet PO (21:26)
[2024-06-15] MEDS: Latanoprost 0.005% 1 Bottle 1 DRP RIGHT EYE (21:40)
[2024-06-16] MEDS: Enoxaparin 40 MG/0.4 ML Syringe SC (06:07)
[2024-06-16] MEDS: CARBIDOPA/LEVODOPA CR 50/200 Tablet PO ×4 (06:07→20:26)
[2024-06-16] MEDS: Pramipexole Di-HCl 1 MG Tablet PO ×4 (06:07→20:27)
[2024-06-16] MEDS: 0.9% Saline Lock 10 ML Syringe IV ×3 (06:08→20:27)
[2024-06-16] MEDS: Cefepime HCl 2 GM in 0.9% Normal Saline (100mL MB+) 100 ML IV ×3 (06:37→22:34)
[2024-06-16] MEDS: Ensure Plus High Protein 120 ML LIQUID PO ×2 (10:02→16:28)
[2024-06-16] MEDS: Potassium Chloride Oral Tablet 20 MEQ PO ×2 (10:08→16:28)
[2024-06-16] MEDS: Mupirocin Ointment 22gm Tube 1 APPLIC TOPICAL ×2 (10:09→20:28)
[2024-06-16] MEDS: Lactobacillis Acidophilus 1 CAP PO ×2 (10:09→20:27)
[2024-06-16] MEDS: Dorzolamide HCL/Timolol 10 ml Bottle EACH EYE ×2 (10:10→20:29)
[2024-06-16] MEDS: dilTIAZem CD 120 MG Capsule PO (10:10)
[2024-06-16] MEDS: Menthol/Lanolin/Calamine/Znox 113 GM Tube 1 APPLIC TOPICAL ×2 (10:10→20:27)
[2024-06-16] MEDS: Memantine Hydrochloride 10 MG Tablet PO ×2 (10:11→20:27)
[2024-06-16] MEDS: prednisoLONE eye drops (5 mL) 1 DROP OPTH.BTL 1 DRP OPHTHALMIC ×2 (10:11→20:30)
[2024-06-16] MEDS: Senna/Docusate Sodium 1 Tablet PO ×2 (10:11→20:26)
[2024-06-16] MEDS: Pantoprazole Sodium 40 MG Tablet PO ×2 (10:11→20:26)
[2024-06-16] MEDS: DULoxetine Hcl 60 MG Capsule PO (10:11)
[2024-06-16] MEDS: DAROLUTAMIDE 300 MG 600 MG PO (15:24)
[2024-06-16] MEDS: 0.9% Normal Saline (100mL Bag) 100 ML 15 ML IV (15:26)
[2024-06-16 16:00] VITALS: BP 104/67; PULSE 61; RESP 16; TEMP 36.2
[2024-06-16] MEDS: QUEtiapine 25 MG Tablet PO (20:26)
[2024-06-16] MEDS: Acetaminophen 500 MG Tablet 1000 MG PO (20:26)
[2024-06-16] MEDS: Latanoprost 0.005% 1 Bottle 1 DRP RIGHT EYE (20:29)
[2024-06-16 20:35] VITALS: PULSE 82; RESP 19; O2SAT 99
[2024-06-17] MEDS: Cefepime HCl 2 GM in 0.9% Normal Saline (100mL MB+) 100 ML IV ×3 (06:24→21:02)
[2024-06-17] MEDS: 0.9% Saline Lock 10 ML Syringe IV ×3 (06:24→14:33)
[2024-06-17] MEDS: CARBIDOPA/LEVODOPA CR 50/200 Tablet PO ×4 (06:25→21:01)
[2024-06-17] MEDS: Enoxaparin 40 MG/0.4 ML Syringe SC (06:25)
[2024-06-17] MEDS: Pramipexole Di-HCl 1 MG Tablet PO ×4 (06:26→21:00)
[2024-06-17 08:07] VITALS: BP 135/95; PULSE 79; RESP 16; TEMP 36.5
[2024-06-17] MEDS: Ensure Plus High Protein 120 ML LIQUID PO ×3 (08:09→16:45)
[2024-06-17] MEDS: Mupirocin Ointment 22gm Tube 1 APPLIC TOPICAL (08:14)
[2024-06-17] MEDS: Potassium Chloride Oral Tablet 20 MEQ PO ×2 (08:14→16:46)
[2024-06-17] MEDS: Lactobacillis Acidophilus 1 CAP PO ×2 (08:14→20:59)
[2024-06-17] MEDS: Dorzolamide HCL/Timolol 10 ml Bottle EACH EYE ×2 (08:15→21:01)
[2024-06-17] MEDS: Senna/Docusate Sodium 1 Tablet PO ×2 (08:15→20:59)
[2024-06-17] MEDS: Menthol/Lanolin/Calamine/Znox 113 GM Tube 1 APPLIC TOPICAL ×2 (08:15→21:00)
[2024-06-17] MEDS: DULoxetine Hcl 60 MG Capsule PO (08:15)
[2024-06-17] MEDS: dilTIAZem CD 120 MG Capsule PO (08:15)
[2024-06-17] MEDS: Memantine Hydrochloride 10 MG Tablet PO ×2 (08:15→21:00)
[2024-06-17] MEDS: Pantoprazole Sodium 40 MG Tablet PO ×2 (08:16→21:09)
[2024-06-17] MEDS: DAROLUTAMIDE 300 MG 600 MG PO (08:16)
[2024-06-17] MEDS: prednisoLONE eye drops (5 mL) 1 DROP OPTH.BTL 1 DRP OPHTHALMIC ×2 (12:08→20:59)
[2024-06-17] MEDS: Latanoprost 0.005% 1 Bottle 1 DRP RIGHT EYE (20:58)
[2024-06-17] MEDS: QUEtiapine 25 MG Tablet PO (20:59)
[2024-06-18] MEDS: Cefepime HCl 2 GM in 0.9% Normal Saline (100mL MB+) 100 ML IV ×3 (05:51→21:28)
[2024-06-18] MEDS: Enoxaparin 40 MG/0.4 ML Syringe SC (05:51)
[2024-06-18] MEDS: 0.9% Saline Lock 10 ML Syringe IV ×4 (05:52→22:14)
[2024-06-18] MEDS: CARBIDOPA/LEVODOPA CR 50/200 Tablet PO ×4 (05:52→21:32)
[2024-06-18] MEDS: Pramipexole Di-HCl 1 MG Tablet PO ×4 (05:52→21:32)
[2024-06-18] MEDS: Senna/Docusate Sodium 1 Tablet PO ×2 (08:46→21:32)
[2024-06-18] MEDS: Pantoprazole Sodium 40 MG Tablet PO ×2 (08:46→21:32)
[2024-06-18] MEDS: Dorzolamide HCL/Timolol 10 ml Bottle EACH EYE ×2 (08:46→21:36)
[2024-06-18] MEDS: prednisoLONE eye drops (5 mL) 1 DROP OPTH.BTL 1 DRP OPHTHALMIC ×2 (08:46→21:31)
[2024-06-18] MEDS: Memantine Hydrochloride 10 MG Tablet PO ×2 (08:46→21:31)
[2024-06-18] MEDS: Potassium Chloride Oral Tablet 20 MEQ PO ×2 (08:46→16:15)
[2024-06-18] MEDS: DULoxetine Hcl 60 MG Capsule PO (08:47)
[2024-06-18] MEDS: Lactobacillis Acidophilus 1 CAP PO ×2 (08:47→21:33)
[2024-06-18] MEDS: dilTIAZem CD 120 MG Capsule PO (08:47)
[2024-06-18] MEDS: DAROLUTAMIDE 300 MG 600 MG PO (08:47)
[2024-06-18] MEDS: Menthol/Lanolin/Calamine/Znox 113 GM Tube 1 APPLIC TOPICAL ×2 (08:47→21:33)
[2024-06-18] MEDS: Ensure Plus High Protein 120 ML LIQUID PO ×3 (08:47→17:53)
[2024-06-18] MEDS: Mupirocin Ointment 22gm Tube 1 APPLIC TOPICAL ×2 (08:48→21:33)
[2024-06-18 09:24] VITALS: BP 112/95; PULSE 64
--- NOTE | 2024-06-18 13:54 | PCM.PN.ID ---
Physical Exam Narrative Feeling better, mild soreness at suprapubic site, no fever, no hallucinations Const alert and no apparent distress General Appearance: cooperative Resp normal air movement and clear to auscultation bilaterally Cardio regular rate and regular rhythm GI soft to palpation, non-tender and non-distended Skin no rashes or lesions noted ID ID: Route of nutrition/ use of supplements: [] Nutritional Intake: [] IV Site: [] Somers Catheter: [] Assessment & Plan Assessment/Plan (1) History of suprapubic catheter: (2) UTI (urinary tract infection): QUALIFIERS: Urinary tract infection type: site unspecified Hematuria presence: without hematuria Qualified Code(s): N39.0 - Urinary tract infection, site not specified PLAN: Urine again with PsA. Spoke with xin, PsA is now I to zosyn and cefepime. Finished zosyn 06/06/24. Sx much improved, will stop cefepime tomorrow. Will start methenamine for custodial uti prophylaxis once active infection has been treated. Will follow
[2024-06-18 14:51] VITALS: BP 102/68; PULSE 84; RESP 14; TEMP 36.4; O2SAT 95
[2024-06-18] MEDS: Latanoprost 0.005% 1 Bottle 1 DRP RIGHT EYE (21:31)
[2024-06-18] MEDS: QUEtiapine 25 MG Tablet PO (21:32)
[2024-06-18] MEDS: MELATONIN 3 MG TABLET PO (21:32)
[2024-06-18] MEDS: Acetaminophen 500 MG Tablet 1000 MG PO (21:32)
[2024-06-19] MEDS: 0.9% Normal Saline (100mL Bag) 100 ML 15 ML IV (05:47)
[2024-06-19] MEDS: 0.9% Saline Lock 10 ML Syringe IV ×3 (05:47→14:43)
[2024-06-19] MEDS: Cefepime HCl 2 GM in 0.9% Normal Saline (100mL MB+) 100 ML IV ×2 (05:52→14:42)
[2024-06-19] MEDS: Enoxaparin 40 MG/0.4 ML Syringe SC (05:53)
[2024-06-19] MEDS: Pramipexole Di-HCl 1 MG Tablet PO ×4 (05:53→21:38)
[2024-06-19] MEDS: CARBIDOPA/LEVODOPA CR 50/200 Tablet PO ×4 (05:53→21:38)
[2024-06-19 06:11] VITALS: PULSE 79; RESP 18; O2SAT 97
--- NOTE | 2024-06-19 06:41 | NURSING ---
Patient obseved incontinent of urine, no urine flow observed from suprapubic cath, bladder scan result 78cc. No c/o pain. Dr. Colindres notified via backline, new order to flush normal saline suprapubic cath PRN occlusion. Flush per order, several small dark red clots observed in return, urine flow observed from suprapubic cath, aseptic technique maintained, patient tolerates well, no distress observed or reported. Call light in reach.
[2024-06-19] MEDS: Ensure Plus High Protein 120 ML LIQUID PO ×3 (08:59→16:38)
[2024-06-19 09:00] VITALS: BMI 28.7
[2024-06-19] MEDS: Methenamine Hippurate 1 GM Tablet PO ×2 (09:00→21:38)
[2024-06-19] MEDS: dilTIAZem CD 120 MG Capsule PO (09:00)
[2024-06-19] MEDS: Ascorbic Acid 500 MG Tablet PO ×2 (09:00→16:38)
[2024-06-19] MEDS: Potassium Chloride Oral Tablet 20 MEQ PO ×2 (09:00→16:38)
[2024-06-19] MEDS: DULoxetine Hcl 60 MG Capsule PO (09:00)
[2024-06-19] MEDS: Lactobacillis Acidophilus 1 CAP PO ×2 (09:00→21:37)
[2024-06-19] MEDS: Memantine Hydrochloride 10 MG Tablet PO ×2 (09:00→21:38)
[2024-06-19] MEDS: Pantoprazole Sodium 40 MG Tablet PO ×2 (09:01→21:39)
[2024-06-19] MEDS: DAROLUTAMIDE 300 MG 600 MG PO (09:01)
[2024-06-19] MEDS: Senna/Docusate Sodium 1 Tablet PO ×2 (09:01→21:39)
[2024-06-19] MEDS: Menthol/Lanolin/Calamine/Znox 113 GM Tube 1 APPLIC TOPICAL ×2 (09:01→21:44)
[2024-06-19] MEDS: prednisoLONE eye drops (5 mL) 1 DROP OPTH.BTL 1 DRP OPHTHALMIC ×2 (09:02→21:38)
[2024-06-19] MEDS: Dorzolamide HCL/Timolol 10 ml Bottle EACH EYE ×2 (09:02→21:37)
[2024-06-19] MEDS: Mupirocin Ointment 22gm Tube 1 APPLIC TOPICAL ×2 (09:08→21:37)
[2024-06-19] MEDS: Acetaminophen 500 MG Tablet 1000 MG PO (09:11)
--- NOTE | 2024-06-19 15:00 | NURSING ---
Pt C/O of pain to bladder throughout shift. Bladder scanned for 0ml and Somers draining Vanna urine. Pt encouraged to drink more water. Dr. Prather's office called and Updated the Nurse. Per Dr. Prather's nurse Dr. Prather will be up to see pt this shift. Updated and pt.
--- NOTE | 2024-06-19 15:28 | CASEMGMT ---
Social Work present in pt's room. SW presented and updated pt/ on insurance approval with [facility] 06/21. would like pt to DC home tomorrow. SW cautious about quick DC given the catheter issues. SW to notify nursing and Dr. Colindres. If Dr approved, can set DC for 06/21. requested catheter care teaching. SW to notify nursing. SW confirmed still feels comfortable with pt discharging home and confirmed. SW to follow up. SW updated nursing and left written communication for Dr. Colindres. Will continue to follow. Tanisha Mccann NURSE SANE MILLER HELPER DISTILLERY
[2024-06-19 15:33] VITALS: BP 100/68; PULSE 72; RESP 20; TEMP 36.1; O2SAT 95
[2024-06-19] MEDS: QUEtiapine 25 MG Tablet PO (21:37)
[2024-06-19] MEDS: Latanoprost 0.005% 1 Bottle 1 DRP RIGHT EYE (21:39)
--- NOTE | 2024-06-20 04:56 | NURSING ---
Alarm sounds. Resident sitting on the edge of the bed. Gown is off. Resident questions where he is. Reoriented to place, time, and situation. Gown reapplied. Placed in bed and positioned for comfort. Camera in use and alarm activated. Call light w/ in reach. Will continue to monitor.
[2024-06-20 06:24] LABS: Absolute Lymphocyte Count 1.43 X10^3/uL (0.83-4.51); Absolute Neutrophil Count 3.7 X10^3/uL (2.0-7.7); Basophil# 0.05 X10^3/uL; Basophil% 0.8 % (0-1); Eosinophil# 0.45 X10^3/uL; Eosinophils% 7.1 % (0-5); Hematocrit 41.6 % (40-54); Lymphocyte # 1.43 X10^3/ul (0.83-4.51); Lymphocyte % 22.5 % (19-41); Mean Corp Hgb Conc 31.3 g/dL (32-36); Mean Corpuscular Hgb 23.9 pg (27.0-32.0); Mean Corpuscular Volume 76.6 fL (80-94); Mean Platelet Vol. 10.7 fl (6.2-12.0); Monocyte# 0.63 X10^3/uL; Monocyte% 9.9 % (0-10); NRBC Flagged by Analyzer 0 % (0-5); Neutrophil % 58.3 % (47-70); POSITIVE MORPHOLOGY YES; Platelet Count 217 K/mm3 (150-450); RBC Distribution Width SD 60.2 fl (35.1-43.9); Red Blood Count 5.43 M/mm3 (4.6-6.2); White Blood Count 6.4 K/mm3 (4.4-11.0)
[2024-06-20 06:35] LABS: Differential Indicated SCAN CRITERIA MET
[2024-06-20] MEDS: Enoxaparin 40 MG/0.4 ML Syringe SC (06:50)
[2024-06-20] MEDS: CARBIDOPA/LEVODOPA CR 50/200 Tablet PO ×4 (06:50→22:19)
[2024-06-20] MEDS: Pramipexole Di-HCl 1 MG Tablet PO ×4 (06:50→22:16)
[2024-06-20] MEDS: 0.9% Saline Lock 10 ML Syringe IV ×2 (06:51→09:23)
[2024-06-20 06:56] LABS: Anion Gap 5 (5-15); BUN 19 mg/dL (7-18); Chloride 108 mmol/L (98-107); Creatinine, Serum 0.79 mg/dL (0.70-1.30); EST Glomerular Filtration Rate 100 mL/min (>60); Est Glom Filt Rate - Afr Amer 121 mL/min (>60); Estimated Creatinine Clearance 75.97 ml/min; Glucose 94 mg/dL (74-106); Potassium 4.1 mmol/L (3.5-5.1); Sodium Level 138 mmol/L (136-145)
[2024-06-20 07:49] LABS: Anisocytosis 1+
[2024-06-20] MEDS: Ensure Plus High Protein 120 ML LIQUID PO ×3 (09:22→17:01)
[2024-06-20] MEDS: prednisoLONE eye drops (5 mL) 1 DROP OPTH.BTL 1 DRP OPHTHALMIC ×2 (09:25→22:17)
[2024-06-20] MEDS: Mupirocin Ointment 22gm Tube 1 APPLIC TOPICAL ×2 (09:25→22:10)
[2024-06-20] MEDS: Dorzolamide HCL/Timolol 10 ml Bottle EACH EYE ×2 (09:26→22:17)
[2024-06-20] MEDS: Ascorbic Acid 500 MG Tablet PO ×2 (09:27→16:55)
[2024-06-20] MEDS: Senna/Docusate Sodium 1 Tablet PO ×2 (09:27→22:16)
[2024-06-20] MEDS: Pantoprazole Sodium 40 MG Tablet PO ×2 (09:27→22:16)
[2024-06-20] MEDS: dilTIAZem CD 120 MG Capsule PO (09:27)
[2024-06-20] MEDS: Lactobacillis Acidophilus 1 CAP PO ×2 (09:27→22:16)
[2024-06-20] MEDS: Memantine Hydrochloride 10 MG Tablet PO ×2 (09:27→22:16)
[2024-06-20] MEDS: Methenamine Hippurate 1 GM Tablet PO ×2 (09:28→22:16)
[2024-06-20] MEDS: Potassium Chloride Oral Tablet 20 MEQ PO ×2 (09:28→16:55)
[2024-06-20] MEDS: Menthol/Lanolin/Calamine/Znox 113 GM Tube 1 APPLIC TOPICAL ×2 (09:28→22:16)
[2024-06-20] MEDS: DULoxetine Hcl 60 MG Capsule PO (09:28)
[2024-06-20] MEDS: DAROLUTAMIDE 300 MG 600 MG PO (09:29)
[2024-06-20 09:36] VITALS: BP 110/71; PULSE 86; RESP 15; TEMP 36.6; O2SAT 94
--- NOTE | 2024-06-20 12:07 | CASEMGMT ---
Addendum entered by Tanisha Mccann 06/20/24 16:55: requested to speak with this worker. SW presented to room. decided she will DC pt home 06/21. She will call Dr. Prather's office to get an appt, hoping for 06/21, to take pt to the office, but would still like pt to DC. Dr. Colindres agreeable. SW notified [facility] and [facility]. Plan: DC 06/21 with planned services Original Note: Social Work SW spoke with Dr. Colindres and is agreeable to DC, when is ready. present in room and SW entered. Nurse present and was explaining Dr. Prather is planning to visit pt this afternoon. would like to see what Dr. Prather has to recommend on DC, and this worker will follow up. If Yamilka has no concerns, pt can DC 06/21. SW to follow up. Tanisha Mccann, [employer] G[employer] SYNCHRONIZER
--- NOTE | 2024-06-20 18:05 | NURSING ---
this nurse called Dr. Prather's office at 10 am to up date on pt currently passing clots in cath, along with voiding in the attends. Yamilka's nurse Stated he would be in to see the pt.
[2024-06-20] MEDS: QUEtiapine 25 MG Tablet PO (22:16)
[2024-06-20] MEDS: Latanoprost 0.005% 1 Bottle 1 DRP RIGHT EYE (22:17)
[2024-06-21] MEDS: CARBIDOPA/LEVODOPA CR 50/200 Tablet PO (06:10)
[2024-06-21] MEDS: Pramipexole Di-HCl 1 MG Tablet PO (06:10)
[2024-06-21] MEDS: Enoxaparin 40 MG/0.4 ML Syringe SC (06:10)
[2024-06-21] MEDS: prednisoLONE eye drops (5 mL) 1 DROP OPTH.BTL 1 DRP OPHTHALMIC (09:08)
[2024-06-21] MEDS: DAROLUTAMIDE 300 MG 600 MG PO (09:08)
[2024-06-21] MEDS: Dorzolamide HCL/Timolol 10 ml Bottle EACH EYE (09:09)
[2024-06-21] MEDS: Potassium Chloride Oral Tablet 20 MEQ PO (09:10)
[2024-06-21] MEDS: dilTIAZem CD 120 MG Capsule PO (09:11)
[2024-06-21] MEDS: Ensure Plus High Protein 120 ML LIQUID PO (09:11)
[2024-06-21] MEDS: DULoxetine Hcl 60 MG Capsule PO (09:11)
[2024-06-21] MEDS: Senna/Docusate Sodium 1 Tablet PO (09:11)
[2024-06-21] MEDS: Lactobacillis Acidophilus 1 CAP PO (09:12)
[2024-06-21] MEDS: Pantoprazole Sodium 40 MG Tablet PO (09:12)
[2024-06-21] MEDS: Methenamine Hippurate 1 GM Tablet PO (09:12)
[2024-06-21] MEDS: Memantine Hydrochloride 10 MG Tablet PO (09:12)
[2024-06-21] MEDS: 0.9% Saline Lock 10 ML Syringe IV (09:13)
[2024-06-21] MEDS: Ascorbic Acid 500 MG Tablet PO (09:13)
[2024-06-21] MEDS: Menthol/Lanolin/Calamine/Znox 113 GM Tube 1 APPLIC TOPICAL (09:13)
[2024-06-21] MEDS: Mupirocin Ointment 22gm Tube 1 APPLIC TOPICAL (09:53)
--- NOTE | 2024-06-21 11:49 | CASEMGMT ---
Social Work SW completed BIMS (12/16) and PHQ-2 (06/29) for MDS assessment. No changes to pt's mood, but pt is looking forward to discharging home today. Tanisha Mccann, FILTER SCREEN CLEANER OPHTHALMIC ASST
[2024-06-21 12:20] VITALS: BP 112/65; PULSE 76; RESP 16; TEMP 36.6; O2SAT 96
== END 2024-06-21 12:22 | disposition home health service (06) | DRG 690 ==
PROVIDERS: Internal Medicine; Admitting Provider Family Medicine Geriatric Medicine; PCP Family Medicine; Referring Provider Family Medicine Geriatric Medicine; Visit Provider Family Medicine Geriatric Medicine
DX: N39.0 Urinary tract infection, site not specified (principal); I48.19 Other persistent atrial fibrillation; I43 Cardiomyopathy in diseases classified elsewhere; I27.21 Secondary pulmonary arterial hypertension; G20.A2 Parkinson's disease without dyskinesia, with fluctuations; C61 Malignant neoplasm of prostate; F02.80 Dementia in other diseases classified elsewhere, unspecified severity, without behavioral disturbance, psychotic disturbance, mood disturbance, and anxiety; F32.A Depression, unspecified; K25.9 Gastric ulcer, unspecified as acute or chronic, without hemorrhage or perforation; Z93.50 Unspecified cystostomy status; E87.6 Hypokalemia; I95.1 Orthostatic hypotension; N13.8 Other obstructive and reflux uropathy; B96.5 Pseudomonas (aeruginosa) (mallei) (pseudomallei) as the cause of diseases classified elsewhere; G47.00 Insomnia, unspecified; R33.9 Retention of urine, unspecified; H40.9 Unspecified glaucoma; N40.1 Benign prostatic hyperplasia with lower urinary tract symptoms; Z79.899 Other long term (current) drug therapy
CPT/HCPCS: 36415; 72170; 80048; 81001; 83735; 84153; 85025; 87077; 87086; 87088; 87184; 87186; 87811; 92610; 97110; 97116; 97162; 97166; 97530; 97535; A4216

== ENCOUNTER 2024-08-23 14:16 | Outpatient (CLI) | payer MEDICARE, SELFPAY ==
[2024-08-23 18:20] LABS: Color, Urine Yellow (Yellow); Glucose, Dipstick Normal (Normal); Ketone-Dipstick Negative (Negative); Leukocyte Esterase-Dipstick 500 /ul (Negative); Nitrite-Dipstick Negative (Negative); Occult Blood-Urine 25 /ul (Negative); Protein-Dipstick 15 mg/dl (Negative); Urine Bilirubin Dipstick Negative (Negative); Urine Clarity Clear (Clear); Urine Urobilinogen Normal (Normal)
== END 2024-08-23 23:59 | disposition home or self-care (01) ==
LOC: LABSPEC 14:17
PROVIDERS: PCP Family Medicine; Visit Provider Family Medicine
DX: C61 Malignant neoplasm of prostate (principal)
CPT/HCPCS: 81002; 87077; 87086; 87088; 87186

== ENCOUNTER 2024-08-28 14:56 | Inpatient (IN) | payer MEDICARE, SELFPAY ==
[2024-08-28] VITALS (22 sets, daily range): BP systolic 118–150; BP diastolic 78–98; PULSE 60–82; RESP 13–19; TEMP 36.3–37; O2SAT 94–100; BMI 29.8; BMI 28.0
--- NOTE | 2024-08-28 15:35 | EX.ED.DYSGE1 ---
HPI <GLORIA Carlos - Last Filed: 08/28/24 20:32> History of Present Illness Chief Complaint: Complaint Narrative Narrative: 79-year-old male with PMH of A-fib, Parkinson's, suprapubic catheter placed around May 2024 secondary to bladder stricture presents with a UTI. He started having hallucinations so he had urine tested last week and the urology office called today with the culture results showing Pseudomonas resistant to multiple antibiotics. They state he needs admitted for IV antibiotics. He complains of fatigue and generalized weakness. He has no fever chills vomiting or abdominal pain. states he is occasionally had hallucinations in the past but when they increased in frequency he normally has an infection. night he was having visual hallucinations and talking to people. 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 PFSH <GLORIA Carlos - Last Filed: 08/28/24 20:32> [facility] Medical History (Updated 08/28/24 @ 21:[address] Raoul Major, ) Multiple drug resistant organism (MDRO) culture positive Urinary retention MRSA (methicillin resistant staph aureus) culture positive BPH (benign prostatic hyperplasia) Anxiety Depression Non-smoker History of Parkinson disease GI bleed Ambulatory dysfunction Wound of left foot Mitral valve insufficiency Lower extremity edema History of blistering sunburn Non-pressure chronic ulcer of left calf with fat layer exposed Obstructive uropathy Bladder stone Urethral stricture Parkinsons disease Chronic radiation cystitis History of prostate cancer DVT (deep venous thrombosis) Bladder outflow obstruction Hypertension Persistent atrial fibrillation Cardiomyopathy in other diseases classified elsewhere Other secondary pulmonary hypertension Home Medications ?Medication ?Instructions ?Recorded ?Last Taken ?Type carbidopa ER 50 mg-levodopa 200 mg 1 tablet PO 4X/DAY parkinsons 09/25/20 08/28/24 History tablet,extended release dorzolamide 22.3 mg-timolol 6.8 1 - 2 drp ophthalmic (eye) BID 09/25/20 08/28/24 History mg/mL eye drops glaucoma latanoprost 0.005 % eye drops 1 drp RIGHT EYE QHS eye he 09/10/21 08/28/24 History memantine 10 mg tablet 10 mg PO BID MEMORY 09/10/21 08/28/24 History inhalational spacing device (Space #1 ea 08/08/23 Unknown Rx Chamber) potassium chloride 20 mEq 20 meq PO BIDCM Supplement #60 tabs 11/17/23 08/28/24 Rx tablet,extended release(part/cryst) diltiazem HCl 120 mg capsule,24 See Rx Instructions .Route 02/01/24 08/28/24 Rx hr,extended release .COMPLEX heart #90 CAPSULES darolutamide 300 mg tablet (Nubeqa) 600 mg PO DAILY Prostate 02/04/24 05/17/24 History duloxetine 60 mg capsule,delayed 60 mg PO DAILY Mood 02/04/24 08/28/24 History release prednisolone acetate 1 % eye 1 drp ophthalmic (eye) Q12H Eye 05/29/24 08/28/24 History drops,suspension drops ascorbic acid (vitamin C) 500 mg 500 mg PO BIDCM 90 days #180 tabs 06/18/24 08/28/24 Rx tablet methenamine hippurate 1 gram tablet 1 g PO BID 90 days #180 tabs 06/18/24 08/28/24 Rx Lactobacillus acidophilus 25 50,000,000 cell PO DAILY gut health 08/28/24 08/28/24 History million cell capsule acetaminophen 500 mg tablet 1,000 mg PO Q6H PRN Pain 1-10 08/28/24 Unknown History carbidopa 25 mg-levodopa 100 mg 2 tab PO 4X/DAY parkinson 08/28/24 08/28/24 History tablet mecobalamin (vitamin B12) 1,000 1,000 mcg PO DAILY supplement 08/28/24 08/28/24 History mcg chewable tablet pramipexole 1 mg tablet 1 mg PO 4X/DAY 08/28/24 08/28/24 History tamsulosin 0.4 mg capsule 0.4 mg PO DAILY 08/28/24 08/28/24 History torsemide 20 mg tablet 20 mg PO DAILY 08/28/24 08/28/24 History Allergy/AdvReac Type Severity Reaction Status Date / Time lidocaine Allergy Angioedema Verified 08/28/24 15:00 peppermint Allergy Angioedema Verified 08/28/24 15:00 phenylephrine Allergy Angioedema Verified 08/28/24 15:00 doxycycline AdvReac Intermediate SUNBURN Verified 08/28/24 15:00 Family History Brother Atrial fibrillation Hypertension Mother Heart disease CAD (coronary artery disease) Myocardial infarction Hypertension Heart failure Father Heart disease Colon cancer Ruptured aortic aneurysm Surgical History History of suprapubic catheter History of incision and drainage (~09/2021) History of cataract extraction History of hernia repair Social History household members: spouse Smoking Status: Never smoker alcohol intake: never substance use type: does not use caffeine: Yes Type: carbonated beverages Number of servings: 1 ROS <GLORIA Carlos - Last Filed: 08/28/24 20:32> ROS ED ROS Narrative Constitutional: Negative for fever, chills. CVS: Negative for chest pain. Respiratory: Negative for shortness of breath, cough. GI: Negative for abdominal pain, nausea, vomiting, diarrhea. EXAM <GLORIA Carlos - Last Filed: 08/28/24 20:32> Physical Exam Narrative Exam Narrative: CONST: Patient sitting in no acute distress. EYES: Normal inspection. NECK: Normal inspection. RESP: No respiratory distress, CTAB. CVS: Regular rate and rhythm, no murmur, no gallop. ABD: Soft and nontender, no guarding or rebound, nondistended. Suprapubic catheter in place without surrounding cellulitis or drainage. SKIN: Color normal, no rash, warm, dry, intact. EXTREMITIES: Normal appearance, no pedal edema. NEURO: Alert and answering some questions appropriately but defaults to his for history. Moving all extremities. PSYCH: Normal affect. Const Vital Signs: 08/28/24 14:58 08/28/24 15:50 08/28/24 15:52 Temperature 97.4 F L 98 F Temperature Source Oral Oral Pulse Rate 73 81 77 Respiratory Rate 16 19 H 15 Blood Pressure 118/83 H 150/98 H Blood Pressure Mean 94 115 Pulse Ox 100 97 98 Oxygen Delivery Method Room Air Room Air 08/28/24 16:00 08/28/24 16:02 08/28/24 16:15 Temperature 98 F Temperature Source Pulse Rate 80 68 75 Respiratory Rate 13 13 18 Blood Pressure 132/80 H 132/80 H 136/90 H Blood Pressure Mean 95 97 103 Pulse Ox 95 95 97 Oxygen Delivery Method 08/28/24 16:30 08/28/24 16:45 08/28/24 17:00 Temperature 98.0 F Temperature Source Oral Pulse Rate 70 66 69 Respiratory Rate 15 14 14 Blood Pressure 121/78 H 134/96 H Blood Pressure Mean 86 108 Pulse Ox 97 97 98 Oxygen Delivery Method Room Air 08/28/24 17:00 08/28/24 17:15 08/28/24 17:30 Temperature Temperature Source Pulse Rate 76 72 69 Respiratory Rate 13 13 16 Blood Pressure 136/97 H 134/96 H 138/93 H Blood Pressure Mean 110 109 104 Pulse Ox 97 98 98 Oxygen Delivery Method 08/28/24 17:45 08/28/24 18:00 08/28/24 18:00 Temperature 98 F Temperature Source Oral Pulse Rate 76 76 66 Respiratory Rate 15 15 14 Blood Pressure 135/91 H 139/94 H 139/94 H Blood Pressure Mean 105 109 108 Pulse Ox 97 98 Oxygen Delivery Method Room Air 08/28/24 18:15 08/28/24 18:16 08/28/24 18:30 Temperature Temperature Source Pulse Rate 69 62 Respiratory Rate 18 14 Blood Pressure 126/87 H 129/84 H Blood Pressure Mean 99 97 Pulse Ox 98 96 Oxygen Delivery Method 08/28/24 18:31 08/28/24 18:45 08/28/24 19:00 Temperature 97.4 F L Temperature Source Oral Pulse Rate 74 64 Respiratory Rate 17 18 Blood Pressure 127/82 H 136/91 H Blood Pressure Mean 97 106 Pulse Ox 98 96 Oxygen Delivery Method Room Air 08/28/24 19:00 08/28/24 20:00 Temperature 97.3 F L Temperature Source Oral Pulse Rate 60 Respiratory Rate 19 H Blood Pressure 136/91 H 129/96 H Blood Pressure Mean 105 107 Pulse Ox 97 Oxygen Delivery Method Room Air <Dr. Mac Elliott, DO - Last Filed: 08/29/24 02:23> Physical Exam Const Vital Signs: 08/28/24 14:58 08/28/24 15:50 08/28/24 15:52 Temperature 97.4 F L 98 F Temperature Source Oral Oral Pulse Rate 73 81 77 Respiratory Rate 16 19 H 15 Blood Pressure 118/83 H 150/98 H Blood Pressure Mean 94 115 Pulse Ox 100 97 98 Oxygen Delivery Method Room Air Room Air 08/28/24 16:00 08/28/24 16:02 08/28/24 16:15 Temperature 98 F Temperature Source Pulse Rate 80 68 75 Respiratory Rate 13 13 18 Blood Pressure 132/80 H 132/80 H 136/90 H Blood Pressure Mean 95 97 103 Pulse Ox 95 95 97 Oxygen Delivery Method 08/28/24 16:30 08/28/24 16:45 08/28/24 17:00 Temperature 98.0 F Temperature Source Oral Pulse Rate 70 66 69 Respiratory Rate 15 14 14 Blood Pressure 121/78 H 134/96 H Blood Pressure Mean 86 108 Pulse Ox 97 97 98 Oxygen Delivery Method Room Air 08/28/24 17:00 08/28/24 17:15 08/28/24 17:30 Temperature Temperature Source Pulse Rate 76 72 69 Respiratory Rate 13 13 16 Blood Pressure 136/97 H 134/96 H 138/93 H Blood Pressure Mean 110 109 104 Pulse Ox 97 98 98 Oxygen Delivery Method 08/28/24 17:45 08/28/24 18:00 08/28/24 18:00 Temperature 98 F Temperature Source Oral Pulse Rate 76 76 66 Respiratory Rate 15 15 14 Blood Pressure 135/91 H 139/94 H 139/94 H Blood Pressure Mean 105 109 108 Pulse Ox 97 98 Oxygen Delivery Method Room Air 08/28/24 18:15 08/28/24 18:16 08/28/24 18:30 Temperature Temperature Source Pulse Rate 69 62 Respiratory Rate 18 14 Blood Pressure 126/87 H 129/84 H Blood Pressure Mean 99 97 Pulse Ox 98 96 Oxygen Delivery Method 08/28/24 18:31 08/28/24 18:45 08/28/24 19:00 Temperature 97.4 F L Temperature Source Oral Pulse Rate 74 64 Respiratory Rate 17 18 Blood Pressure 127/82 H 136/91 H Blood Pressure Mean 97 106 Pulse Ox 98 96 Oxygen Delivery Method Room Air 08/28/24 19:00 08/28/24 20:00 Temperature 97.3 F L Temperature Source Oral Pulse Rate 60 Respiratory Rate 19 H Blood Pressure 136/91 H 129/96 H Blood Pressure Mean 105 107 Pulse Ox 97 Oxygen Delivery Method Room Air MDM <GLORIA Carlos - Last Filed: 08/28/24 20:32> MDM MDM Narrative Medical decision making narrative: History gathered from: Patient and Differential includes but not limited to UTI, electrolyte abnormality, intracranial process, Parkinson/s 79-year-old male who was been more confused with recent hallucinations and had an outpatient urinalysis and today the culture returned with multidrug-resistant Pseudomonas. He has a chronic indwelling suprapubic catheter. This was changed on August 20, 2024 and urine sample was obtained on August 23, 2024. Patient is awake alert in no distress. Afebrile. Hemodynamically stable. He does not know much history and his answers most historical questions. He has no focal deficits. There is a strong odor in the room and when changing his urine bag. CBC shows WBC of 4.6 and is otherwise unremarkable. BMP is normal. Lactic 1.8. I reviewed his urine culture results with the pharmacist who recommended giving IV tobramycin 5 mg/kg. during my exam. Urinalysis obtained in our department looks negative for infection. For this reason I ordered a CT scan of his head to rule out any intracranial process that would cause his hallucinations. CT shows no acute findings. I am not sure the etiology of his hallucinations. It could be from underlying Parkinson's dementia, however states they have been significantly worse. I discussed the case with the hospitalist to keep the patient for observation to rule out other reversible causes of confusion/hallucinations. Lab Data Attestation: I reviewed the patient's lab results. Labs: Laboratory Results - last 24 hr 08/28/24 08/28/24 08/28/24 15:47 16:15 18:43 WBC 4.6 RBC 5.69 Hgb 14.8 Hct 47.0 MCV 82.6 MCH 26.0 L MCHC 31.5 L RDW Std Deviation 57.5 H RDW Coeff of Manuela 20.0 H Plt Count 180 MPV 10.2 Immature Gran % (Auto) 1.300 H Neut % (Auto) 73.4 H Lymph % (Auto) 12.0 L [place] % (Auto) 8.3 Eos % (Auto) 4.1 Baso % (Auto) 0.9 Absolute Neuts (auto) 3.4 Absolute Lymphs (auto) 0.55 L Nucleated RBC % 0 Sodium 140 Potassium 3.4 Anion Gap 10 BUN 16 Creatinine 0.8 Est GFR (MDRD) Non-Af 89 BUN/Creatinine Ratio 19.8 Glucose 89 Lactic Acid 1.8 Calcium 8.3 Urine Color Yellow Urine Clarity Clear Urine pH 7.0 Ur Specific [place] 1.010 Urine Protein 15 H Urine Glucose (UA) Normal Urine Ketones Negative Urine Occult Blood Negative Urine Nitrite Negative Urine Bilirubin Negative Urine Urobilinogen Normal Ur Leukocyte Esterase 25 H Urine RBC 0-5 SEEN Urine WBC 0-5 SEEN Ur Squamous Epith Cells 0-5 SEEN Urine Bacteria 0 SEEN Urine Mucus 0 SEEN Radiography Diagnostic Testing: Clinical Impression(s) from Imaging Studies Brain CT 08/28/24 19:24 IMPRESSION: 1. No acute intracranial abnormality. 2. Age-appropriate volume loss and remote small vessel ischemic changes. 3. Right mastoiditis 4. Moderate bilateral maxillary sinusitis Reading Location: [facility] <Dr. Mac Elliott, DO - Last Filed: 08/29/24 02:23> [facility] MDM Narrative Medical decision making narrative: History gathered from: Patient and Differential includes but not limited to UTI, electrolyte abnormality, intracranial process, Parkinson/s 79-year-old male who was been more confused with recent hallucinations and had an outpatient urinalysis and today the culture returned with multidrug-resistant Pseudomonas. He has a chronic indwelling suprapubic catheter. This was changed on August 20, 2024 and urine sample was obtained on August 23, 2024. Patient is awake alert in no distress. Afebrile. Hemodynamically stable. He does not know much history and his answers most historical questions. He has no focal deficits. There is a strong odor in the room and when changing his urine bag. CBC shows WBC of 4.6 and is otherwise unremarkable. BMP is normal. Lactic 1.8. I reviewed his urine culture results with the pharmacist who recommended giving IV tobramycin 5 mg/kg. during my exam. Urinalysis obtained in our department looks negative for infection. For this reason I ordered a CT scan of his head to rule out any intracranial process that would cause his hallucinations. CT shows no acute findings. I am not sure the etiology of his hallucinations. It could be from underlying Parkinson's dementia, however states they have been significantly worse. I discussed the case with the hospitalist to keep the patient for observation to rule out other reversible causes of confusion/hallucinations. Supervisory Physician Note Patient was seen and examined with the Advanced Practice Provider. Nursing notes and vital signs have been reviewed. Pertinent old records have been reviewed. I agree with the essential elements of the SAMSON's history, physical exam, assessment, and plan. The differential diagnosis and management options were discussed with the SAMSON. I participated in determining and agree with the management, procedures, final impression and disposition as documented. See changes noted by me. Please see addendum or separate note for any additional details. 79-year-old male with past medical history of suprapubic catheter secondary to bladder stricture presents for drug-resistant UTI. Associated symptoms are hallucinations for the past several days. Urine was obtained by urologist office after patient's suprapubic catheter was exchanged. Denies any fever, chills, abdominal pain, nausea, vomiting. Gen: A&O x3, NAD Head: Normocephalic, atraumatic Eyes: No sclera icterus, conjunctiva clear ENT: Moist mucous membranes Neck: Trachea midline, No JVD CV: RRR, no murmurs, no peripheral edema Resp: Lungs CTA BL, no w/r/c GI: Abd soft, non-distended, non-tender, no r/r/g, + suprapubic catheter Musc: Full ROM, no deformity Skin: Warm, dry Neuro: Alert, oriented, grossly intact, sensation intact Psych: Cooperative, appropriate mood and affect On chart review, urine culture results were obtained with sensitivities. We discussed the antibiotic choices with the pharmacist who recommended tobramycin and this was ordered. Laboratory workup revealed CBC without leukocytosis or anemia. Lactic acid unremarkable. BMP relatively unremarkable without ALFRED. UA obtained in the ED is negative for infection. Given patient's hallucinations CT head was ordered to rule out any intracranial process. CT head negative for any acute intracranial abnormality. CT head per radiology shows right mastoiditis as well as moderate bilateral maxillary sinusitis. Patient not endorsing any headache, sinus pressure, or URI symptoms. Tympanic membranes were visualized bilaterally without any abnormality. No mastoiditis on exam. Patient's clinical exam not consistent with above. Unsure of the etiology of his hallucinations however given patient's previous positive urine culture that was resistant to antibiotics as well as his worsening hallucinations patient will warrant observation. Patient was accepted by the hospitalist service. Impression: 1. Episodic hallucination 2. Outpatient multidrug-resistant UTI 3. Chronic suprapubic catheter 4. History of Parkinson's disease Lab Data Labs: Laboratory Results - last 24 hr 08/28/24 08/28/24 08/28/24 15:47 16:15 18:43 WBC 4.6 RBC 5.69 Hgb 14.8 Hct 47.0 MCV 82.6 MCH 26.0 L MCHC 31.5 L RDW Std Deviation 57.5 H RDW Coeff of Manuela 20.0 H Plt Count 180 MPV 10.2 Immature Gran % (Auto) 1.300 H Neut % (Auto) 73.4 H Lymph % (Auto) 12.0 L [place] % (Auto) 8.3 Eos % (Auto) 4.1 Baso % (Auto) 0.9 Absolute Neuts (auto) 3.4 Absolute Lymphs (auto) 0.55 L Nucleated RBC % 0 Sodium 140 Potassium 3.4 Anion Gap 10 BUN 16 Creatinine 0.8 Est GFR (MDRD) Non-Af 89 BUN/Creatinine Ratio 19.8 Glucose 89 Lactic Acid 1.8 Calcium 8.3 Urine Color Yellow Urine Clarity Clear Urine pH 7.0 Ur Specific [place] 1.010 Urine Protein 15 H Urine Glucose (UA) Normal Urine Ketones Negative Urine Occult Blood Negative Urine Nitrite Negative Urine Bilirubin Negative Urine Urobilinogen Normal Ur Leukocyte Esterase 25 H Urine RBC 0-5 SEEN Urine WBC 0-5 SEEN Ur Squamous Epith Cells 0-5 SEEN Urine Bacteria 0 SEEN Urine Mucus 0 SEEN Radiography Diagnostic Testing: Clinical Impression(s) from Imaging Studies Brain CT 08/28/24 19:24 IMPRESSION: 1. No acute intracranial abnormality. 2. Age-appropriate volume loss and remote small vessel ischemic changes. 3. Right mastoiditis 4. Moderate bilateral maxillary sinusitis Reading Location: [facility] Discharge Plan Dx/Rx/DC Orders Clinical Impression: Acute alteration in mental status, History of Parkinson disease, Chronic suprapubic catheter, Visual hallucinations Disposition Disposition: [facility] Discharge Date/Time: 08/28/24 22:22
[2024-08-28] MEDS: 0.9% Normal Saline (1000mL) 1,000 ML 1000 ML IV (15:56)
[2024-08-28 16:04] LABS: Absolute Lymphocyte Count 0.55 X10^3/uL (0.83-4.51); Absolute Neutrophil Count 3.4 X10^3/uL (2.0-7.7); Basophil# 0.04 X10^3/uL; Basophil% 0.9 % (0-1); Eosinophil# 0.19 X10^3/uL; Eosinophils% 4.1 % (0-5); Hemoglobin 14.8 g/dL (13.0-16.5); Lymphocyte # 0.55 X10^3/ul (0.83-4.51); Mean Corp Hgb Conc 31.5 g/dL (32-36); Mean Corpuscular Volume 82.6 fL (80-94); Mean Platelet Vol. 10.2 fl (6.2-12.0); Monocyte# 0.38 X10^3/uL; Monocyte% 8.3 % (0-10); NRBC Flagged by Analyzer 0 % (0-5); Neutrophil # 3.37 X10^3/uL (2.7-7.7); Neutrophil % 73.4 % (47-70); POSITIVE DIFFERENTIAL YES; Platelet Count 180 K/mm3 (150-450); RBC Distribution Width SD 57.5 fl (35.1-43.9); Red Blood Count 5.69 M/mm3 (4.6-6.2); White Blood Count 4.6 K/mm3 (4.4-11.0)
[2024-08-28 16:36] LABS: Anion Gap 10 (5-15); BUN 16 mg/dL (4-19); BUN/Creat Ratio 19.8 RATIO (10-20); Calcium 8.3 mg/dL (7.6-11.0); Carbon Dioxide 25.3 mmol/L (22.0-29.0); Chloride 104 mmol/L (96-108); Creatinine, Serum 0.8 mg/dL (0.8-1.3); EST Glomerular Filtration Rate 89 (>60); Glucose 89 mg/dL (70-99); Potassium 3.4 mmol/L (3.3-5.1); Sodium Level 140 mmol/L (133-145)
[2024-08-28] MEDS: TOBRAMYCIN IV (17:20)
[2024-08-28] MEDS: DEXTROSE 5% IV (17:20)
[2024-08-28] MEDS: WATER IV (17:20)
[2024-08-28] MEDS: Carbidopa/Levodopa 25/100 Tablet PO (17:57)
[2024-08-28 18:18] LABS: Lactic Acid 1.8 mmol/L (0.0-2.0)
[2024-08-28 18:51] LABS: Bacteria 0 SEEN /hpf (None Seen); Mucous, Urine 0 SEEN /hpf (<or=2+)
[2024-08-28 18:53] LABS: Color, Urine Yellow (Yellow); Glucose, Dipstick Normal (Normal); Ketone-Dipstick Negative (Negative); Leukocyte Esterase-Dipstick 25 /ul (Negative); Nitrite-Dipstick Negative (Negative); Occult Blood-Urine Negative /ul (Negative); Protein-Dipstick 15 mg/dl (Negative); Urine Bilirubin Dipstick Negative (Negative); Urine Clarity Clear (Clear); Urine Urobilinogen Normal (Normal)
--- NOTE | 2024-08-28 19:05 | ED.RN ---
Urine was ordered after antibiotics were finished.
[2024-08-28 19:08] LABS: Red Blood Cells-Urine 0-5 SEEN /hpf (0-5); Squamous Epithelial Cells - UA 0-5 SEEN /hpf (0-5); White Blood Cells 0-5 SEEN /hpf (0-5)
--- NOTE | 2024-08-28 19:24 | CT_ITS ---
EXAM: BRAIN/HEAD WITHOUT CONTRAST CLINICAL HISTORY: Confusion COMPARISON: MRI of the head dated 05/15/2024 TECHNIQUE: Noncontrast images of the head with multiplanar reconstructions. Dose reduction techniques were used including intermediate exposure control (AEC),iterative reconstruction technique, and/or mA and/or KV dose adjustments based on patient's size. FINDINGS: CT HEAD FINDINGS: No acute intracranial hemorrhage, mass, mass effect, midline shift or pathologic extra-axial fluid collection. Nonspecific periventricular white matter changes are noted. No hydrocephalus. Age- appropriate cerebral volume and white matter. There is near opacification of the left maxillary sinus with thickening of the right maxillary sinus. Partial opacification of the right mastoid air cells. The calvarium is grossly intact. CT/Brain/Head without Contrast IMPRESSION: 1. No acute intracranial abnormality. 2. Age-appropriate volume loss and remote small vessel ischemic changes. 3. Right mastoiditis 4. Moderate bilateral maxillary sinusitis Reading Location: [facility]
--- NOTE | 2024-08-28 20:22 | PCM.HP.STD ---
[facility] - General General Date of Admission: 08/28/24 Date of Service: 08/28/24 Chief Complaint: Hallucinating with Recent Urine Culture positive for MDR Pseudomonas. HPI Narrative KAREN MOYA, is a 79 M with a past medical history of essential hypertension; on torsemide, history of paroxysmal atrial fibrillation; s/p DCCV (2015) on diltiazem and currently not on anticoagulation, overweight; with BMI of 29.9 this admission, chronic dementia; on memantine BID, advanced Parkinson's disease with chronic debility; on carbidopa-levodopa QID and pramipexole QID, history of DVT, history of cardiomyopathy; of unclear type, history of mitral valve insufficiency, history of secondary pulmonary hypertension, history of LLE wound, history of MRSA, history of GI bleed, CKD; stage II, history of hernia; s/p repair, history of septic olecranon bursitis of the Left elbow, depression with anxiety; on duloxetine, glaucoma; on latanoprost drops and dorzolamide-timolol drops, history of bladder stone, history of urethral stricture, history of prostate cancer; s/p radiation with subsequent chronic radiation cystitis on darolutamide, BPH; on tamsulosin and with chronic urinary retention; s/p suprapubic urinary catheter (08/2023) with recent UTI and cultures positive for MDR Pseudomonas aeruginosa - sensitive to IV Tobramycin who was sent in by his urologist to [facility] ER to be started on IV antibiotics for treatment with patient's stating he is now having worsening and almost continual hallucinations. Because he had hallucinations in the past associated with infections his presumed they were due to an ongoing UTI or some other infection. He admits to fatigue and generalized weakness but there was no report of fever, chills, nausea, vomiting, abdominal pain, chest pain, SOB or headache. In the ER he was noted to be afebrile with a normal WBC and unremarkable UA this admission with PA in the ER informed of these facts, but nevertheless persisted in seeking admission for treatment for his previously diagnosed MDR UTI due to Pseudomonas aeruginosa sensitive to IV tobramycin complicated by worsening Hallucinations; likely due to a combination of Parkinson's disease and Chronic Dementia and he was then admitted to the general medical floor under observation status with telemetric monitoring for a stay that is expected to be less than 48 hours. [facility] Medical History (Updated 08/29/24 @ 03:[address] Raoul Major, DO) Multiple drug resistant organism (MDRO) culture positive Urinary retention MRSA (methicillin resistant staph aureus) culture positive BPH (benign prostatic hyperplasia) Anxiety Depression Non-smoker History of Parkinson disease GI bleed Ambulatory dysfunction Wound of left foot Mitral valve insufficiency Lower extremity edema History of blistering sunburn Non-pressure chronic ulcer of left calf with fat layer exposed Obstructive uropathy Bladder stone Urethral stricture Parkinsons disease Chronic radiation cystitis History of prostate cancer DVT (deep venous thrombosis) Bladder outflow obstruction Hypertension Persistent atrial fibrillation Cardiomyopathy in other diseases classified elsewhere Other secondary pulmonary hypertension Home Medications ?Medication ?Instructions ?Recorded ?Last Taken ?Type carbidopa ER 50 mg-levodopa 200 mg 1 tablet PO 4X/DAY parkinsons 09/25/20 08/28/24 History tablet,extended release dorzolamide 22.3 mg-timolol 6.8 1 - 2 drp ophthalmic (eye) BID 09/25/20 08/28/24 History mg/mL eye drops glaucoma latanoprost 0.005 % eye drops 1 drp RIGHT EYE QHS eye he 09/10/21 08/28/24 History memantine 10 mg tablet 10 mg PO BID MEMORY 09/10/21 08/28/24 History inhalational spacing device (Space #1 ea 08/08/23 Unknown Rx Chamber) potassium chloride 20 mEq 20 meq PO BIDCM Supplement #60 tabs 11/17/23 08/28/24 Rx tablet,extended release(part/cryst) diltiazem HCl 120 mg capsule,24 See Rx Instructions .Route 02/01/24 08/28/24 Rx hr,extended release .COMPLEX heart #90 CAPSULES darolutamide 300 mg tablet (Nubeqa) 600 mg PO DAILY Prostate 02/04/24 05/17/24 History duloxetine 60 mg capsule,delayed 60 mg PO DAILY Mood 02/04/24 08/28/24 History release prednisolone acetate 1 % eye 1 drp ophthalmic (eye) Q12H Eye 05/29/24 08/28/24 History drops,suspension drops ascorbic acid (vitamin C) 500 mg 500 mg PO BIDCM 90 days #180 tabs 06/18/24 08/28/24 Rx tablet methenamine hippurate 1 gram tablet 1 g PO BID 90 days #180 tabs 06/18/24 08/28/24 Rx Lactobacillus acidophilus 25 50,000,000 cell PO DAILY gut health 08/28/24 08/28/24 History million cell capsule acetaminophen 500 mg tablet 1,000 mg PO Q6H PRN Pain 1-10 08/28/24 Unknown History carbidopa 25 mg-levodopa 100 mg 2 tab PO 4X/DAY parkinson 08/28/24 08/28/24 History tablet mecobalamin (vitamin B12) 1,000 1,000 mcg PO DAILY supplement 08/28/24 08/28/24 History mcg chewable tablet pramipexole 1 mg tablet 1 mg PO 4X/DAY 08/28/24 08/28/24 History tamsulosin 0.4 mg capsule 0.4 mg PO DAILY 08/28/24 08/28/24 History torsemide 20 mg tablet 20 mg PO DAILY 08/28/24 08/28/24 History Allergy/AdvReac Type Severity Reaction Status Date / Time lidocaine Allergy Angioedema Verified 08/28/24 15:00 peppermint Allergy Angioedema Verified 08/28/24 15:00 phenylephrine Allergy Angioedema Verified 08/28/24 15:00 doxycycline AdvReac Intermediate SUNBURN Verified 08/28/24 15:00 Family History Brother Atrial fibrillation Hypertension Mother Heart disease CAD (coronary artery disease) Myocardial infarction Hypertension Heart failure Father Heart disease Colon cancer Ruptured aortic aneurysm Surgical History History of suprapubic catheter History of incision and drainage (~09/2021) History of cataract extraction History of hernia repair Social History household members: spouse Smoking Status: Never smoker alcohol intake: never substance use type: does not use caffeine: Yes Type: carbonated beverages Number of servings: 1 ROS ROS Narrative Full ROS was not possible due to patient's dementia. Vital Signs Vital Signs Vital Signs: 08/28/24 14:58 08/28/24 15:50 08/28/24 15:52 Temperature 97.4 F L 98 F Temperature Source Oral Oral Pulse Rate 73 81 77 Respiratory Rate 16 19 H 15 Blood Pressure 118/83 H 150/98 H Blood Pressure Mean 94 115 Pulse Ox 100 97 98 Oxygen Delivery Method Room Air Room Air 08/28/24 16:00 08/28/24 16:02 08/28/24 16:15 Temperature 98 F Temperature Source Pulse Rate 80 68 75 Respiratory Rate 13 13 18 Blood Pressure 132/80 H 132/80 H 136/90 H Blood Pressure Mean 95 97 103 Pulse Ox 95 95 97 Oxygen Delivery Method 08/28/24 16:30 08/28/24 16:45 08/28/24 17:00 Temperature 98.0 F Temperature Source Oral Pulse Rate 70 66 69 Respiratory Rate 15 14 14 Blood Pressure 121/78 H 134/96 H Blood Pressure Mean 86 108 Pulse Ox 97 97 98 Oxygen Delivery Method Room Air 08/28/24 17:00 08/28/24 17:15 08/28/24 17:30 Temperature Temperature Source Pulse Rate 76 72 69 Respiratory Rate 13 13 16 Blood Pressure 136/97 H 134/96 H 138/93 H Blood Pressure Mean 110 109 104 Pulse Ox 97 98 98 Oxygen Delivery Method 08/28/24 17:45 08/28/24 18:00 08/28/24 18:00 Temperature 98 F Temperature Source Oral Pulse Rate 76 76 66 Respiratory Rate 15 15 14 Blood Pressure 135/91 H 139/94 H 139/94 H Blood Pressure Mean 105 109 108 Pulse Ox 97 98 Oxygen Delivery Method Room Air 08/28/24 18:15 08/28/24 18:16 08/28/24 18:30 Temperature Temperature Source Pulse Rate 69 62 Respiratory Rate 18 14 Blood Pressure 126/87 H 129/84 H Blood Pressure Mean 99 97 Pulse Ox 98 96 Oxygen Delivery Method 08/28/24 18:31 08/28/24 18:45 08/28/24 19:00 Temperature 97.4 F L Temperature Source Oral Pulse Rate 74 64 Respiratory Rate 17 18 Blood Pressure 127/82 H 136/91 H Blood Pressure Mean 97 106 Pulse Ox 98 96 Oxygen Delivery Method Room Air 08/28/24 19:00 08/28/24 20:00 Temperature 97.3 F L Temperature Source Oral Pulse Rate 60 Respiratory Rate 19 H Blood Pressure 136/91 H 129/96 H Blood Pressure Mean 105 107 Pulse Ox 97 Oxygen Delivery Method Room Air Weight Weight: 190 lb 11.198 oz Body Mass Index (BMI) 29.8 Physical Exam Const alert, no apparent distress and average body habitus General Appearance: cooperative Orientation / Consciousness: confused HEENT normocephalic, head/scalp atraumatic, hearing grossly normal bilaterally and moist oral mucous membranes Eyes PERRL, EOMs intact bilaterally and conjunctivae normal Neck no lymphadenopathy, supple and no JVD Resp normal respiratory effort, no retractions, no use of accessory muscles and clear to auscultation bilaterally Cardio regular rate and regular rhythm GI normal to inspection, nondistended, normoactive bowel sounds, soft to palpation, non-tender and non-distended Extremity normal to inspection, full ROM and no clubbing, cyanosis or edema Skin Skin Narrative: Patient has no evidence of rash, abscess, wounds or jaundice. Neuro CN's II-XII intact bilaterally, moves all extremities and no focal motor deficits Sensorium / Orientation: awake, alert, oriented to person and oriented to place Speech: speech normal Psych affect normal Results Medical Records Data Attestation: I reviewed the patient's medical records Lab / Micro Data Attestation: I reviewed the patient's lab results. 08/28/24 15:47 08/28/24 15:47 Labs: Laboratory Results - last 24 hr 08/28/24 15:47: WBC 4.6, RBC 5.69, Hgb 14.8, Hct 47.0, MCV 82.6, MCH 26.0 L, MCHC 31.5 L, RDW Std Deviation 57.5 H, RDW Coeff of Manuela 20.0 H, Plt Count 180, MPV 10.2, Immature Gran % (Auto) 1.300 H, Neut % (Auto) 73.4 H, Lymph % (Auto) 12.0 L, [place] % (Auto) 8.3, Eos % (Auto) 4.1, Baso % (Auto) 0.9, Absolute Neuts (auto) 3.4, Absolute Lymphs (auto) 0.55 L, Nucleated RBC % 0, Sodium 140, Potassium 3.4, Anion Gap 10, BUN 16, Creatinine 0.8, Est GFR (MDRD) Non-Af 89, BUN/Creatinine Ratio 19.8, Glucose 89, Calcium 8.3 08/28/24 16:15: Lactic Acid 1.8 08/28/24 18:43: Urine Color Yellow, Urine Clarity Clear, Urine pH 7.0, Ur Specific [place] 1.010, Urine Protein 15 H, Urine Glucose (UA) Normal, Urine Ketones Negative, Urine Occult Blood Negative, Urine Nitrite Negative, Urine Bilirubin Negative, Urine Urobilinogen Normal, Ur Leukocyte Esterase 25 H, Urine RBC 0-5 SEEN, Urine WBC 0-5 SEEN, Ur Squamous Epith Cells 0-5 SEEN, Urine Bacteria 0 SEEN, Urine Mucus 0 SEEN Imaging Radiology Impression Brain CT 08/28/24 19:24 IMPRESSION: 1. No acute intracranial abnormality. 2. Age-appropriate volume loss and remote small vessel ischemic changes. 3. Right mastoiditis 4. 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 (5) Chronic radiation cystitis: (6) Prostate cancer: (7) Parkinson's disease dementia: QUALIFIERS: Dementia behavioral or psychological symptom: with other behavioral disturbance Dementia severity: severe Qualified Code(s): G20.A1 - Parkinson's disease without dyskinesia, without mention of fluctuations; F02.C18 - Dementia in other diseases classified elsewhere, severe, with other behavioral disturbance (8) Visual hallucinations: (9) Acute alteration in mental status: (10) History of Parkinson disease: (11) Other secondary pulmonary hypertension: (12) Cardiomyopathy in other diseases classified elsewhere: (13) Hypertension: QUALIFIERS: Hypertension type: essential hypertension Qualified Code(s): I10 - Essential (primary) hypertension (14) Mitral valve insufficiency: QUALIFIERS: Cardiac valve disease etiology: nonrheumatic Qualified Code(s): I34.0 - Nonrheumatic mitral (valve) insufficiency PLAN: Plan 1. Previously diagnosed MDR UTI due to Pseudomonas aeruginosa (likely due to Suprapubic Catheter) sensitive to IV tobramycin with Head CT also positive for evidence of Right Mastoiditis and moderate bilateral Maxillary Sinusitis - Admit to general medical floor under observation status with telemetric monitoring. Continue tobramycin IV begun in the ER and add IV ceftriaxone for infections noted on CT. Give acetaminophen prn pain or fever. Suprapubic catheter has already been recently changed. Finally, we will give probiotic, vitamin D3, vitamin C and zinc to help boost immunity and hopefully speed recovery. 2. Worsening Hallucinations; likely due to a combination of Parkinson's disease and Chronic Dementia complicating #1 - Check TSH, B12, Folate, UDS and NILA to evaluate for potentially reversible causes of confusion. Check MRI of brain to confirm suspicion of no acute underlying lesion causing or contributing to his symptoms. Maintain home regimen of Parkinson's and Dementia agents. We will otherwise minimize PASTE MIXING SUPERVISOR-active medications in an effort to allow sensorium to clear. 3. BPH; on tamsulosin with chronic urinary retention; s/p suprapubic urinary catheter (08/2023) with recent UTI and cultures positive for MDR Pseudomonas aeruginosa compounding #1 & #2 - Suprapubic catheter has already been recently changed as noted above. Resume current medications. 4. History of prostate cancer; s/p radiation with subsequent chronic radiation cystitis on darolutamide adding to the medical complexity of #1 - #3 - Noted. 5. Depression with anxiety; on duloxetine adding to the burden of disease outlined from #1 - #4 - Resume duloxetine as previous. 6. Essential Hypertension; on torsemide - Continue home regimen. 7. History of paroxysmal atrial fibrillation; s/p DCCV (2016) on diltiazem and currently not on anticoagulation - Maintain diltiazem as previous and follow on nuclear monitoring technician to evaluate for possible recurrence. 8. Overweight; with BMI of 29.9 this admission - Weight loss will be recommended. 9. History of DVT - Noted with no signs of recurrence. 10. History of cardiomyopathy; of unclear type - Noted. Check echocardiogram to evaluate LVEF this admission and confirm diagnosis. 11. History of mitral valve insufficiency - Noted. 12. History of secondary pulmonary hypertension - Noted. 13. History of LLE wound - Stable with no evidence of recurrence at this time. 14. History of MRSA - Noted. 15. History of GI bleed - Noted with no reports or evidence of recent bleeding. 16. CKD; stage II - Stable. 17. History of hernia; s/p repair - Noted. 18. History of septic olecranon bursitis of the Left elbow - Noted. 19. Glaucoma; on latanoprost drops and dorzolamide-timolol drops - Maintain current treatment. 20. History of bladder stone - Noted. 21. History of urethral stricture - Noted. 22. DVT prophylaxis - Lovenox 40 mg sq daily plus SCD's. Total time: Approximately (but not less than) 70 minutes. Charges/Coding Visit Charges OBSV E&M: 41482 Observ/hosp same date L2
--- NOTE | 2024-08-28 20:56 | CM.ED ---
Social work Reason for referral: validation of advance directives Referral source: case find This SW identified patient's need to have advance directives validated. This SW entered patient's room, introducing self and role at [facility]. Patient lying in bed, mostly asleep during conversation. Patient's , Snow, and daughter, Joaquina, bedside. Patient's , Snow, stated believing that patient's is patient's primary HCPOA and Joaquina is patient's secondary HCPOA. Patient's stated ability to bring in documents during patient's admission. Fadumo Crowell, SIGNAL TOWER OPERATOR, BATTERY CHARGER CONVEYOR LINE
--- NOTE | 2024-08-28 21:13 | CASEMGMT ---
Care Management Face to Face with patient for initial transition planning/care coordination assessment in the ED. This scientific technical writer introduced self and role at [facility]. Patient asleep in bed throughout some of conversation; patient's , Snow, and patient's daughter, Joaquina, at bedside and willing to participate in assessment and able to answer all questions appropriately. Admitting Diagnosis: acute alteration in mental status Other diagnosis history: essential hypertension, atrial fibrillation, chronic dementia, advanced Parkinson's disease PCP: Dr. Rosa Specialists: Dr. Boss, neurology/Parkinson's. Dr. Prather, urology. [facility]. Dr. Ludwig. Dr. Herrera, pain management. Preferred Pharmacy: [facility] Insurance: [employer] Medicare Prescription Benefit: yes Living Will/HPOA: believed to be patient's (primary) and daughter, Joaquina (secondary). Paperwork requested to be brought in. LNOK: , Snow. 4 children, daughters Joaquina Pope and Luna Sosa. Sons, Santiago and Beau Carlson Living Arrangements: lives with , 1 story home with ramp to enter. Since June 2024 hospitalization, patient reportedly requires 24/7 supervision and is almost completely dependent on support. Transportation: drives patient to all necessary appointments. DME: transport chair, walker, cane, raised toilet seat, shower seat, grab bars, wheelchair, bed rails, pulse ox, blood pressure cuff HHC: [facility] 1x per week and change catheter 1x per month. SNF/Rehab: TCU in May/Jun 2024. Community Resources: aide through [employer] agency comes Mon-Tue from [phone] and helps with variety of needs. Patient goals: Patient's wishes to have patient discharge home, but states knowing that patient may need SNF if patient remains as weak as patient has been today. Disposition Plan: admission to acute; RN CM/SW to follow for discharge planning needs that may arise. Fadumo Crowell, INCOME TAX ADVISOR, MELT SUPERINTENDANT
--- NOTE | 2024-08-28 21:58 | ECHOCS_ITS ---
Reason For Study Reason For Study: HALLUCINATIONS, INFECTION Procedure This was a 2D Doppler, Color Flow transthoracic echocardiogram. The study was technically difficult. Exam performed portable in patient room. Left Ventricle Normal LV size. The estimated ejection fraction is 55 %. Unable to assess diastolic dysfunction. No regional wall motion abnormalities noted. Right Ventricle Mildly dilated right ventricle. Normal systolic function. Atria The left atrium is severely enlarged. The right atrium is moderately enlarged. No doppler evidence for ASD. Mitral Valve There is no mitral valve stenosis. Trivial mitral valve insufficiency. Tricuspid Valve There is no tricuspid stenosis. Mild tricuspid valve insufficiency. Pulmonary artery systolic pressure is 50 mmHg. Aortic Valve Trisinus/trileaflet aortic valve. There is no aortic stenosis. Trivial aortic valve insufficiency. Pulmonic Valve There is no pulmonic valvular stenosis. Trivial pulmonic valve insufficiency. Great Vessels Normal sized aortic root. Pericardium/Pleural No pericardial effusion. Medication Diluted definity 4ml given slow IV push to enhance endocardial definition. MMode/2D Measurements & Calculations LVIDd: 5.0 cm IVSd: 1.2 cm Ao root diam: 3.4 cm LVIDs: 3.6 cm LVPWd: 1.1 cm RVDd: 4.0 cm FS: 28.6 % LAV(MOD-bp): 104.9 ml LVAd ap4: 24.0 cm2 SV(MOD-sp4): 35.1 ml LAV(MOD-bp) Indexed: 54.4 ml/m2 LVLd ap4: 7.1 cm SI(MOD-sp4): 18.2 ml/m2 LAV(MOD-sp2): 98.7 ml EDV(MOD-sp4): 67.3 ml LAV(MOD-sp4): 104.0 ml EDV(sp4-el): 69.0 ml LVAs ap4: 15.8 cm2 LVLs ap4: 6.3 cm ESV(MOD-sp4): 32.2 ml ESV(sp4-el): 33.6 ml EF(MOD-sp4): 52.1 % EF(sp4-el): 51.3 % SV(sp4-el): 35.4 ml LA A4 area: 30.6 cm2 LA dimension(2D): 4.9 cm RA A4 area: 27.1 cm2 TAPSE: 2.0 cm Doppler Measurements & Calculations MV E max amando: 67.0 cm/sec Ao V2 max: 85.6 cm/sec AI max amando: 376.1 cm/sec Ao max P.9 mmHg AI max P.6 mmHg AI dec slope: 151.3 cm/sec2 AI P1/2t: 728.1 msec LV V1 max: 59.5 cm/sec PA V2 max: 78.2 cm/sec TR max amando: 339.9 cm/sec LV V1 max P.4 mmHg TR max P.2 mmHg ECHO/Echo Complete W/ Contrast Interpretation Summary The estimated ejection fraction is 55 %. Mildly dilated right ventricle. The left atrium is severely enlarged. The right atrium is moderately enlarged. Trivial mitral valve insufficiency. Trivial aortic valve insufficiency. Ordering Physician: Raoul Major Referring Physician: LUIS ARMANDO COELLO Performed By: Delores Nair RDCS
[2024-08-29] MEDS: Carbidopa/Levodopa 25/100 Tablet PO ×5 (00:14→21:14)
--- NOTE | 2024-08-29 03:02 | PCM.RX.CS ---
Consult Antibiotic Management Pharmacy has been consulted to manage selected antibiotic: Tobramycin Type of Intervention Type of Consult: New start Labs Labs: Sodium 140 mmol/L (133-145) 08/28/24 15:47 Potassium 3.4 mmol/L (3.3-5.1) 08/28/24 15:47 Anion Gap 10 (5-15) 08/28/24 15:47 BUN 16 mg/dL (4-19) 08/28/24 15:47 Creatinine 0.8 mg/dL (0.8-1.3) 08/28/24 15:47 Est GFR (MDRD) Non-Af 89 (>60) 08/28/24 15:47 BUN/Creatinine Ratio 19.8 RATIO (10-20) 08/28/24 15:47 Glucose 89 mg/dL (70-99) 08/28/24 15:47 Dosing Weight Weight used for dosin kg Estimated Creatinine Clearance Estimated Creatinine Clearance: 75.1 Goal Trough Goal Trough: Other Pharmacy Plan for Drug Dosing Pharmacy Plan for Drug Dosing: Pharmacy Service will continue to monitor and adjust dosing as required. 330MG GIVEN IN ER @ 1720. START 100MG Q8H PER CONVENTIONAL DOSING AND DRAW PEAK 30 MIN AFTER 3RD DOSE AND TR 30 PRIOR TO 4TH DOSE Follow-Up Labs Follow-Up Labs: Trough: Tobramycin Date/Time Labs Ordered Labs to be done on [date and time ordered]: PK 08/30 @ 1000 TR 08/30 @ 1600
[2024-08-29 04:35] VITALS: BP 143/82; PULSE 74; RESP 16; TEMP 36.6; O2SAT 97
[2024-08-29] MEDS: CARBIDOPA/LEVODOPA CR 50/200 Tablet PO ×4 (06:10→21:14)
[2024-08-29 08:34] VITALS: BP 118/74; PULSE 77; RESP 16; TEMP 36.3; O2SAT 94
[2024-08-29] MEDS: Lactobacillis Acidophilus 1 CAP PO (10:05)
[2024-08-29] MEDS: Ascorbic Acid 500 MG Tablet PO ×2 (10:06→15:48)
[2024-08-29] MEDS: Dorzolamide HCL/Timolol 10 ml Bottle 2 DRP EACH EYE ×2 (10:07→21:14)
[2024-08-29] MEDS: dilTIAZem CD 120 MG Capsule PO (10:07)
[2024-08-29] MEDS: Potassium Chloride Oral Tablet 20 MEQ PO ×2 (10:07→15:47)
[2024-08-29] MEDS: DULoxetine Hcl 60 MG Capsule PO (10:08)
[2024-08-29] MEDS: Tamsulosin HCl 0.4 MG Capsule PO (10:08)
[2024-08-29] MEDS: Furosemide 40 MG Tablet PO (10:09)
[2024-08-29] MEDS: DAROLUTAMIDE 300 MG 600 MG PO (10:09)
[2024-08-29] MEDS: Memantine Hydrochloride 10 MG Tablet PO ×2 (10:10→21:14)
[2024-08-29] MEDS: Zinc Sulfate 50 mg zinc (220 mg) ORAL capsule PO (10:11)
[2024-08-29] MEDS: Methenamine Hippurate 1 GM Tablet PO ×2 (10:12→21:14)
[2024-08-29] MEDS: Pramipexole Di-HCl 1 MG Tablet PO ×4 (10:12→21:14)
[2024-08-29] MEDS: Cyanocobalamin 500 MCG Tablet 1000 MCG PO (10:12)
[2024-08-29] MEDS: Cholecalciferol (Vit D3) 125 MCG CAPSULE (5,000 UNITS) PO (10:14)
[2024-08-29 10:19] LABS: Bedside Glucose 121 mg/dL (74-106)
[2024-08-29 10:28] VITALS: RESP 15
[2024-08-29] MEDS: Tobramycin 100 MG in Dextrose 5%-Water (50mL Bag) 50 ML IV ×2 (10:47→17:15)
[2024-08-29] MEDS: 0.9% Normal Saline (100mL Bag) 100 ML 15 ML IV (10:47)
[2024-08-29] MEDS: 0.9% Saline Lock 10 ML Syringe IV ×2 (10:48→17:15)
[2024-08-29] MEDS: Ceftriaxone 1 GM/50 ML BAG IV (12:28)
[2024-08-29] MEDS: prednisoLONE eye drops (5 mL) 1 DROP OPTH.BTL 1 DRP LEFT EYE ×2 (12:28→21:14)
--- NOTE | 2024-08-29 14:27 | CON.PCM.ID_ITS ---
Assessment & Plan Assessment/Plan (1) Multiple drug resistant organism (MDRO) culture positive: (2) Chronic suprapubic catheter: (3) Acute alteration in mental status: PLAN: Cxs pending. Recent ucx with MDR PsA again. On tobra and ceftriaxone. Could try to exchange suprapubic catheter while here. Will follow, thank you, d/w Dr. Swenson (4) History of Parkinson disease: HPI Consult Data Date of Consult: 08/29/24 HPI Narrative Reason for Consultation: uti HPI Narrative: KAREN MOYA, is a 79 M with suprapubic catheter, recurrent uti, Parkinson disease, presented with several days worsened hallucinations, concern for new uti. No abd pain, no change in urine. Recent ucx again with MDR PsA. Admitted, started on tobramycin and ceftriaxone. Feeling a little better. Additional history obtained from . Full ROS performed and neg except as noted above. [facility] Medical History Multiple drug resistant organism (MDRO) culture positive Urinary retention MRSA (methicillin resistant staph aureus) culture positive BPH (benign prostatic hyperplasia) Anxiety Depression Non-smoker History of Parkinson disease GI bleed Ambulatory dysfunction Wound of left foot Mitral valve insufficiency Lower extremity edema History of blistering sunburn Non-pressure chronic ulcer of left calf with fat layer exposed Obstructive uropathy Bladder stone Urethral stricture Parkinsons disease Chronic radiation cystitis History of prostate cancer DVT (deep venous thrombosis) Bladder outflow obstruction Hypertension Persistent atrial fibrillation Cardiomyopathy in other diseases classified elsewhere Other secondary pulmonary hypertension Home Medications ?Medication ?Instructions ?Recorded ?Last Taken ?Type carbidopa ER 50 mg-levodopa 200 mg 1 tablet PO 4X/DAY parkinsons 09/25/20 08/28/24 History tablet,extended release dorzolamide 22.3 mg-timolol 6.8 1 - 2 drp ophthalmic ( eye) BID 09/25/20 08/28/24 History mg/mL eye drops glaucoma latanoprost 0.005 % eye drops 1 drp RIGHT EYE QHS eye he 09/10/21 08/28/24 History memantine 10 mg tablet 10 mg PO BID MEMORY 09/10/21 08/28/24 History inhalational spacing device (Space #1 ea 08/08/23 Unkn own Rx Chamber) potassium chloride 20 mEq 20 meq PO BIDCM Supplement # 60 tabs 11/17/23 08/28/24 Rx tablet,extended release(part/cryst) diltiazem HCl 120 mg capsule,24 See Rx Instructions .R oute 02/01/24 08/28/24 Rx hr,extended release .COMPLEX heart #90 CAPSULES darolutamide 300 mg tablet (Nubeqa) 600 mg PO DAILY Pr ostate 02/04/24 05/17/24 History duloxetine 60 mg capsule,delayed 60 mg PO DAILY Mood 0 02/04/24 08/28/24 History release prednisolone acetate 1 % eye 1 drp ophthalmic (eye) Q1 2H Eye 05/29/24 08/28/24 History drops,suspension drops ascorbic acid (vitamin C) 500 mg 500 mg PO BIDCM 90 da ys #180 tabs 06/18/24 08/28/24 Rx tablet methenamine hippurate 1 gram tablet 1 g PO BID 90 days #180 tabs 06/18/24 08/28/24 Rx Lactobacillus acidophilus 25 50,000,000 cell PO DAILY gut health 08/28/24 08/28/24 History million cell capsule acetaminophen 500 mg tablet 1,000 mg PO Q6H PRN Pain 1 -10 08/28/24 Unknown History carbidopa 25 mg-levodopa 100 mg 2 tab PO 4X/DAY luisa son 08/28/24 08/28/24 History tablet mecobalamin (vitamin B12) 1,000 1,000 mcg PO DAILY sup plement 08/28/24 08/28/24 History mcg chewable tablet pramipexole 1 mg tablet 1 mg PO 4X/DAY 08/28/2408/05 History tamsulosin 0.4 mg capsule 0.4 mg PO DAILY 08/28/24 History torsemide 20 mg tablet 20 mg PO DAILY 08/28/2408/05 History Allergy/AdvReac Type Severity Reaction Status Date / Time lidocaine Allergy Angioedema Verified 08/28/24 15:00 peppermint Allergy Angioedema Verified 08/28/24 15:00 phenylephrine Allergy Angioedema Verified 08/28/24 15:00 doxycycline AdvReac Intermediate SUNBURN Verified 08/28/24 15:00 Family History Brother Atrial fibrillation Hypertension Mother Heart disease CAD (coronary artery disease) Myocardial infarction Hypertension Heart failure Father Heart disease Colon cancer Ruptured aortic aneurysm Surgical History History of suprapubic catheter History of incision and drainage (~09/2021) History of cataract extraction History of hernia repair Social History household members: spouse Smoking Status: Never smoker alcohol intake: never substance use type: does not use caffeine: Yes Type: carbonated beverages Number of servings: 1 Physical Exam Const alert and no apparent distress General Appearance: cooperative HEENT normocephalic and head/scalp atraumatic Eyes PERRL and EOMs intact bilaterally Neck supple and No nodes Resp normal air movement and clear to auscultation bilaterally Cardio regular rate and regular rhythm GI soft to palpation, non-tender and non-distended Extremity General Extremity: Negative for edema Skin no rashes or lesions noted Neuro CN's II-XII intact bilaterally Lab / Micro Data Attestation: I reviewed the patient's lab results. 08/28/24 15:47 08/28/24 15:47 Labs: Laboratory Results - last 24 hr 08/28/24 15:47: WBC 4.6, RBC 5.69, Hgb 14.8, Hct 47.0, MCV 82.6, MCH 26.0 L, M CHC 31.5 L, RDW Std Deviation 57.5 H, RDW Coeff of Manuela 20.0 H, Plt Count 180, MPV 10.2, Immature Gran % (Auto) 1.300 H, Neut % (Auto) 73.4 H, Lymph % (Auto) 12.0 L, [place] % (Auto) 8.3, Eos % (Auto) 4.1, Baso % (Auto) 0.9, Absolute Neuts (auto) 3.4, Absolute Lymphs (auto) 0.55 L, Nucleated RBC % 0, Sodium 140, Potassium 3.4, Anion Gap 10, BUN 16, Creatinine 0.8, Est GFR (MDRD) Non-Af 89, BUN/Creatinine Ratio 19.8, Glucose 89, Calcium 8.3 08/28/24 16:15: Lactic Acid 1.8 08/28/24 18:43: Urine Color Yellow, Urine Clarity Clear, Urine pH 7.0, Ur Specific [place] 1.010, Urine Protein 15 H, Urine Glucose (UA) Normal, Urine Ketones Negative, Urine Occult Blood Negative, Urine Nitrite Negative, Urine Bilirubin Negative, Urine Urobilinogen Normal, Ur Leukocyte Esterase 25 H, Urine RBC 0-5 SEEN, Urine WBC 0-5 SEEN, Ur Squamous Epith Cells 0-5 SEEN, Urine Bacteria 0 SEEN, Urine Mucus 0 SEEN 08/29/24 10:01: POC Glucose 121 H Micro: Microbiology 08/28/24 18:43 Urine, Catheterized Urine Culture - Preliminary Alpha hemolytic organism Imaging Radiology Impression Brain CT 08/28/24 19:24 IMPRESSION: 1. No acute intracranial abnormality. 2. Age-appropriate volume loss and remote small vessel ischemic changes. 3. Right mastoiditis 4. Moderate bilateral maxillary sinusitis Reading Location: [facility]
[2024-08-29 15:57] VITALS: BP 123/80; PULSE 80; RESP 16; TEMP 36.4; O2SAT 97
--- NOTE | 2024-08-29 16:07 | CASEMGMT ---
LUIS ZAYAS met with pt and . Pt states pt is requiring more care then she thinks she may be able to provide. She would like to discuss options. She states pt has declined since therapy stopped in July with HH and with pt infection. Discussed the option of adding back therapy to HH orders at dc which is pt preference. Pt states that pt was in bed the whole day prior to coming to the hospital. It was agreed upon with pt and that with another day of IV antibiotics and pt being mobile to see how pt does tomorrow with therapy. If pt does not feel this is an option to do at home, then we can look at SNF. Pt states they would want [facility]. Pt states they are also on the waiting list for [facility]. Pt also states the PCP is going to be retiring and they would like other options. LUIS ZAYAS to provide a local healthcare directory pamphlet tomorrow when we meet to discuss the dc plan after therapy. Pt and deny further needs at this time.
--- NOTE | 2024-08-29 19:01 | PCM.PN.HOSP ---
Reason for Visit Reason for Visit: Hallucinations Subjective Subjective Patient with history of MDR Pseudomonas. Per his he does have hallucinations when he does get infections. He has been hallucinating however she states today is much better and seems to be back to his baseline. She currently feels like he can go home with home health and possibly some physical therapy at home based on his current functional status. She was able to watch and ambulate with therapy today and felt like he did much better. Patient does complain that his hands and feet are cold all the time Objective Data Objective Data Vital Signs: Vital Signs Temp Pulse Resp BP Pulse Ox O2 Del Method 97.5 F L 80 16 123/80 H 97 Room Air 08/29/24 15:57 08/29/24 15:57 08/29/24 15:57 08/29/24 15:57 08/29/24 15:57 08/29/24 15:57 Oxygen Delivery Method Room Air Weight: 81.3 kg Body Mass Index (BMI) 28.0 Intake & Output: Intake and Output for Last 24 Hours 08/27/24 08/28/24 08/29/24 23:59 23:59 23:59 Intake Total 1558.25 / 1558.25 427.25 / 427.25 Output Total 1100 / 1100 Balance 1558.25 / 858.25 -672.75 / -672.75 Lab / Micro Data 08/28/24 15:47 08/28/24 15:47 Labs: Laboratory Results - last 24 hr 08/28/24 18:43: Urine RBC 0-5 SEEN, Urine WBC 0-5 SEEN, Ur Squamous Epith Cells 0-5 SEEN, Urine Bacteria 0 SEEN, Urine Mucus 0 SEEN 08/29/24 10:01: POC Glucose 121 H Micro: Microbiology 08/28/24 18:43 Urine, Catheterized Urine Culture - Preliminary Alpha hemolytic organism Radiography Diagnostic Testing: Radiology Impression Brain CT 08/28/24 19:24 IMPRESSION: 1. No acute intracranial abnormality. 2. Age-appropriate volume loss and remote small vessel ischemic changes. 3. Right mastoiditis 4. Moderate bilateral maxillary sinusitis [facility] Echocardiogram 08/28/24 21:58 Interpretation Summary The estimated ejection fraction is 55 %. Mildly dilated right ventricle. The left atrium is severely enlarged. The right atrium is moderately enlarged. Trivial mitral valve insufficiency. Trivial aortic valve insufficiency. Ordering Physician: Raoul Major Referring Physician: LUIS ARMANDO COELLO Performed By: Delores Nair RDCS Physical Exam Const alert, oriented x3, no apparent distress and well nourished Constitutional Narrative: Elderly, white male, sitting up in a chair at the bedside, at bedside, appears comfortable, nontoxic, interacts appropriately, patient with mild resting tremor HEENT head/scalp atraumatic and moist oral mucous membranes Head and Scalp: normocephalic Resp normal respiratory effort, no retractions, no use of accessory muscles and clear to auscultation bilaterally Auscultation: Negative for rales, rhonchi or wheezes Cardio regular rate, regular rhythm, S1 normal heart sound, S2 normal heart sound, no murmurs, no rub, no gallops and no clicks GI normal to inspection, nondistended, normoactive bowel sounds, soft to palpation and non-tender GI Narrative: Suprapubic catheter in place Extremity no clubbing, cyanosis or edema Extremity Narrative: Pedal and radial pulses are 2+ Neuro oriented x3 Neuro Narrative: Patient was of bradykinesia and response times are slightly slow, mild resting tremor noted, generalized weakness but no specific focal deficit noted Speech: speech normal Psych Psych Narrative: Affect is flat but appropriate, patient interacts well Assessment & Plan Assessment/Plan (1) Multiple drug resistant organism (MDRO) culture positive: (2) Chronic suprapubic catheter: (3) Acute alteration in mental status: PLAN: Plan Multidrug-resistant PsAg complicated UTI secondary to chronic suprapubic catheter -Patient started on tobramycin and ceftriaxone -Continue antibiotics as ordered -ID consultation was placed by me this morning and plan is for ongoing care is currently ordered -Patient will need IV or IM antibiotics at discharge -Will try to change suprapubic catheter while hospitalized however urology is not currently available so may need to wait so after discharge -Patient is on suppressive medication -Will need outpatient follow-up with urology Toxic/metabolic encephalopathy -Hallucinations due to the above -Hallucinations are now resolved and patient is states he is back to baseline -MRI discontinued as his mental status is back to baseline -Continue ongoing outpatient follow-up with neurology BPH with obstruction -Patient has chronic urinary retention and is on Flomax -Also has suprapubic catheter placed about a year ago -Has had frequent UTIs -Will try to change suprapubic catheter if able prior to discharge History of prostate cancer -Remote -Previous radiation with history of radiation cystitis Essential hypertension -Continue home diltiazem -Continue home torsemide Glaucoma -Continue home eyedrops History of Parkinson's disease -Continue home carbidopa levodopa -continue Mirapex -PT/OT History of DVT -Remote -Patient is not anticoagulated at this time Dementia -Suspect Lewy body or related to Parkinson's -Continue home memantine History of atrial fibrillation -Continue home diltiazem -Patient's not anticoagulated due to fall risk Depression -Continue home duloxetine DVT prophylaxis -Start subcu Lovenox CODE STATUS -DNR CCA with no intubation verified today with patient and family Charges/Coding Visit Charges Inpatient E&M: 60769 Subs Hosp L2
[2024-08-29 20:49] VITALS: BP 130/89; PULSE 88; RESP 16; TEMP 37.2; O2SAT 94
[2024-08-29] MEDS: Latanoprost 0.005% 1 Bottle 1 DRP RIGHT EYE (21:14)
[2024-08-30] VITALS (7 sets, daily range): BP systolic 103–128; BP diastolic 61–83; PULSE 60–93; RESP 14–16; TEMP 36.4–37.2; O2SAT 93–95
[2024-08-30] MEDS: Tobramycin 100 MG in Dextrose 5%-Water (50mL Bag) 50 ML IV ×2 (00:48→09:59)
[2024-08-30] MEDS: CARBIDOPA/LEVODOPA CR 50/200 Tablet PO ×4 (06:04→22:02)
[2024-08-30] MEDS: Carbidopa/Levodopa 25/100 Tablet PO ×4 (06:04→22:09)
[2024-08-30 07:06] LABS: Absolute Neutrophil Count 3.4 X10^3/uL (2.0-7.7); Basophil# 0.02 X10^3/uL; Basophil% 0.4 % (0-1); Eosinophil# 0.16 X10^3/uL; Eosinophils% 3.4 % (0-5); Hematocrit 44.8 % (40-54); Hemoglobin 14.4 g/dL (13.0-16.5); Lymphocyte % 15.1 % (19-41); Mean Corp Hgb Conc 32.1 g/dL (32-36); Mean Corpuscular Volume 80.9 fL (80-94); Mean Platelet Vol. 10.3 fl (6.2-12.0); Monocyte# 0.36 X10^3/uL; Monocyte% 7.7 % (0-10); NRBC Flagged by Analyzer 0 % (0-5); Neutrophil # 3.37 X10^3/uL (2.7-7.7); Neutrophil % 72.5 % (47-70); Platelet Count 161 K/mm3 (150-450); RBC Distribution Width CV 19.8 % (11.6-14.6); RBC Distribution Width SD 56.4 fl (35.1-43.9); Red Blood Count 5.54 M/mm3 (4.6-6.2); White Blood Count 4.7 K/mm3 (4.4-11.0)
[2024-08-30 07:18] LABS: Prothrombin Time (Protime)PT. 13.7 SECONDS (11.7-14.9)
[2024-08-30] MEDS: Potassium Chloride Oral Tablet 20 MEQ PO ×2 (08:24→16:13)
[2024-08-30] MEDS: Ascorbic Acid 500 MG Tablet PO ×2 (08:24→16:13)
[2024-08-30] MEDS: Lactobacillis Acidophilus 1 CAP PO (09:40)
[2024-08-30] MEDS: Dorzolamide HCL/Timolol 10 ml Bottle 2 DRP EACH EYE ×2 (09:42→21:59)
[2024-08-30] MEDS: prednisoLONE eye drops (5 mL) 1 DROP OPTH.BTL 1 DRP LEFT EYE ×2 (09:42→22:04)
[2024-08-30] MEDS: Cyanocobalamin 500 MCG Tablet 1000 MCG PO (09:42)
[2024-08-30] MEDS: Tamsulosin HCl 0.4 MG Capsule PO (09:43)
[2024-08-30] MEDS: DULoxetine Hcl 60 MG Capsule PO (09:43)
[2024-08-30] MEDS: Pramipexole Di-HCl 1 MG Tablet PO ×4 (09:44→22:01)
[2024-08-30] MEDS: Memantine Hydrochloride 10 MG Tablet PO ×2 (09:44→22:02)
[2024-08-30] MEDS: Enoxaparin 40 MG/0.4 ML Syringe SC (09:44)
[2024-08-30] MEDS: DAROLUTAMIDE 300 MG 600 MG PO (09:44)
[2024-08-30] MEDS: dilTIAZem CD 120 MG Capsule PO (09:45)
[2024-08-30] MEDS: Furosemide 40 MG Tablet PO (09:45)
[2024-08-30] MEDS: Methenamine Hippurate 1 GM Tablet PO ×2 (09:46→22:01)
[2024-08-30] MEDS: Ceftriaxone 1 GM/50 ML BAG IV (10:33)
--- NOTE | 2024-08-30 10:36 | PCM.PN.ID ---
Physical Exam Narrative Feeling about the same. Some hallucinations in the afternoon. No fever, no abd pain. Const alert and no apparent distress General Appearance: cooperative Resp normal air movement and clear to auscultation bilaterally Cardio regular rate and regular rhythm GI soft to palpation, non-tender and non-distended Skin no rashes or lesions noted ID ID: Route of nutrition/ use of supplements: [] Nutritional Intake: [] IV Site: [] [place] Catheter: [] Assessment & Plan Assessment/Plan (1) Multiple drug resistant organism (MDRO) culture positive: (2) Chronic suprapubic catheter: (3) Acute alteration in mental status: PLAN: Ucx now with small amount VRE. Recent ucx 08/23/24 with MDR PsA. On tobra and ceftriaxone. Had long discussion re: options given complex case. UA with only 0-5 wbc. No fever, no abd pain. Not seeing big change in mental status with current abx which do have significant risk of side effects. Not a candidate for linezolid given his current meds for Parkinson's. VRE options would be po fosfomycin or iv dapto, but current urine studies and symptoms do not fit with out of control infection. Decision was made together to stop abx, ok for discharge home today. Will follow, d/w Dr. Swenson (4) History of Parkinson disease:
[2024-08-30 11:00] LABS: Magnesium 1.8 mg/dL (1.5-2.2)
--- NOTE | 2024-08-30 11:40 | NURSING ---
Addendum entered by Payton Bautista 08/30/24 11:47: Dr. Swenson hospitalist updated. Original Note: in to see pt as WEBSITE PROGRAMMER reported pt had change in vision when getting up to recliner. pt reported vision being distorted and almost flipped upside down, assessment completed. 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 gen weakness noted b/l. pt states dizziness when up, states dizziness improved while in the chair. pt did again reiterate when he was standing vision changed and appeared to be nearly standing on her head. aware vital stable per WEBSITE PROGRAMMER. Dr. Linda updated.
[2024-08-30 12:20] LABS: ALB/GLOB Ratio 1.3 RATIO (0.9-2.4); AST(SGOT) 9 U/L (<=37); Alanine Aminotransfer ALT/SGPT < 5 U/L (<=46); Albumin, Serum 3.6 g/dL (3.4-4.8); Alkaline Phosphatase 109 U/L (40-129); Anion Gap 15 (5-15); BUN 12 mg/dL (4-19); BUN/Creat Ratio 14.6 RATIO (10-20); Calcium 8.7 mg/dL (7.6-11.0); Carbon Dioxide 22.2 mmol/L (22.0-29.0); Chloride 102 mmol/L (96-108); Creatinine, Serum 0.8 mg/dL (0.8-1.3); EST Glomerular Filtration Rate 89 (>60); Estimated Creatinine Clearance 75.19 ml/min; Globulin 2.9 g/dL (2.2-4.2); Glucose 97 mg/dL (70-99); Potassium 3.3 mmol/L (3.3-5.1); Protein, Total 6.5 g/dL (5.9-8.4); Sodium Level 139 mmol/L (133-145); Total Bilirubin 0.74 mg/dL (0.00-1.30)
--- NOTE | 2024-08-30 15:51 | CASEMGMT ---
Pt leaving and stated she would be back earlier this date. LUIS ZAYAS into pt room, pt states he just worked with therapy and he feels he did well. Pt aware that LUIS ZAYAS will meet with him and in the morning as she has not been back yet today. Therapy notes not entered as of yet. LUIS ZAYAS to follow.
--- NOTE | 2024-08-30 18:26 | PCM.PN.HOSP ---
Reason for Visit Reason for Visit: Hallucinations Subjective Subjective Patient did well early yesterday and started having some hallucinations in the afternoon when he got tired. Per infectious disease plan is to discontinue antibiotics. I did discuss with family we will keep him overnight see how he does with therapy and make sure he is safe to discharge home tomorrow. I am concerned that possibly his hallucinations are related to advancing Parkinson's disease. I did discuss that through his and follow-up with his neurologist will be important. Objective Data Objective Data Vital Signs: Vital Signs Temp Pulse Resp BP Pulse Ox O2 Del Method 97.9 F 73 15 116/61 93 Room Air 08/30/24 17:28 08/30/24 17:28 08/30/24 17:28 08/30/24 17:28 08/30/24 17:28 08/30/24 17:28 Oxygen Delivery Method Room Air Weight: 81.3 kg Body Mass Index (BMI) 28.0 Intake & Output: Intake and Output for Last 24 Hours 08/28/24 08/29/24 08/30/24 23:59 23:59 23:59 Intake Total 1558.25 / 1558.25 455.00 / 455.00 825.0 / 825.0 Output Total 1600 / 1600 1350 / 1350 Balance 1558.25 / 858.25 -1145.00 / -1145.00 -525.0 / -525.0 Lab / Micro Data 08/30/24 06:57 08/30/24 06:57 Labs: Laboratory Results - last 24 hr 08/30/24 06:57: WBC 4.7, RBC 5.54, Hgb 14.4, Hct 44.8, MCV 80.9, MCH 26.0 L, MCHC 32.1, RDW Std Deviation 56.4 H, RDW Coeff of Manuela 19.8 H, Plt Count 161, MPV 10.3, Immature Gran % (Auto) 0.900, Neut % (Auto) 72.5 H, Lymph % (Auto) 15.1 L, [place] % (Auto) 7.7, Eos % (Auto) 3.4, Baso % (Auto) 0.4, Absolute Neuts (auto) 3.4, Absolute Lymphs (auto) 0.70 L, Nucleated RBC % 0, PT 13.7, INR 1.0, Sodium 139, Potassium 3.3, Chloride Direct 102, Carbon Dioxide 22.2, Anion Gap 15, BUN 12, Creatinine 0.8, Estim Creat Clear Calc 75.19, Est GFR (MDRD) Non-Af 89, BUN/Creatinine Ratio 14.6, Glucose 97, Calcium 8.7, Magnesium 1.8, Total Bilirubin 0.74, AST 9, ALT < 5, Alkaline Phosphatase 109, Total Protein 6.5, Albumin 3.6, Globulin 2.9, Albumin/Globulin Ratio 1.3 Micro: Microbiology 08/28/24 18:43 Urine, Catheterized Urine Culture - Final Vancomycin Resist. E. faecium Physical Exam Const alert, no apparent distress, average body habitus and well nourished Constitutional Narrative: Elderly, white male, sitting up in a chair at the bedside, at bedside, appears comfortable, nontoxic, interacts appropriately, patient with mild resting tremor HEENT normocephalic, head/scalp atraumatic and moist oral mucous membranes Resp normal respiratory effort, no retractions, no use of accessory muscles and clear to auscultation bilaterally Auscultation: Negative for rales, rhonchi or wheezes Cardio regular rate, regular rhythm, S1 normal heart sound, S2 normal heart sound, no murmurs, no rub, no gallops and no clicks GI normal to inspection, nondistended, normoactive bowel sounds, soft to palpation and non-tender GI Narrative: Suprapubic catheter in place Extremity no clubbing, cyanosis or edema Extremity Narrative: Pedal and radial pulses are 2+ Skin Skin Narrative: Neuro CN's II-XII intact bilaterally, moves all extremities and no focal motor deficits Neuro Narrative: Patient was of bradykinesia and response times are slightly slow, mild resting tremor noted, generalized weakness but no specific focal deficit noted Sensorium / Orientation: awake, alert, oriented to person and oriented to place Psych affect normal Psych Narrative: Affect is flat but appropriate, patient interacts well Assessment & Plan Assessment/Plan (1) Multiple drug resistant organism (MDRO) culture positive: (2) Chronic suprapubic catheter: (3) Acute alteration in mental status: (4) Visual hallucinations: PLAN: Plan Multidrug-resistant PsAg complicated UTI secondary to chronic suprapubic catheter -Per ID antibiotics completed as they are not convinced that this is related to infection based on his cultures -Likely colonization Toxic/metabolic encephalopathy -Overall mental status is back to baseline -Suspect related to the above Hallucinations -Hallucinations may be related to advancing Parkinson disease -Will try low-dose risperidone 0.5 mg p.o. twice daily to see if these improve his hallucinations -This could affect his tremors, and make it worse -Will monitor and see how he does -Advise close follow-up with his outpatient neurologist Dr. 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 and is on Flomax -Also has suprapubic catheter placed about a year ago -Has had frequent UTIs -Unable to change suprapubic catheter prior to discharge due to no urology availability -Recommend that patient change History of prostate cancer -Remote -Previous radiation with history of radiation cystitis Essential hypertension -Continue home diltiazem -Continue home torsemide Glaucoma -Continue home eyedrops History of Parkinson's disease -Continue home carbidopa levodopa -continue Mirapex -Watch Parkinson symptoms closely with initiation of risperidone -PT/OT History of DVT -Remote -Patient is not anticoagulated at this time Dementia -Suspect Lewy body or related to Parkinson's -Continue home memantine History of atrial fibrillation -Continue home diltiazem -Patient's not anticoagulated due to fall risk -Remains in normal sinus rhythm Depression -Continue home duloxetine DVT prophylaxis -Continue CODE STATUS -DNR CCA with no intubation Charges/Coding Visit Charges Inpatient E&M: 28759 Subs Hosp L2
--- NOTE | 2024-08-30 19:16 | NURSING ---
[id number] to room by and steelworker. stating pt not acting right. found sitting in recliner. pt holding suction tubing. pt noted to be confused. first thinks he's on a farm then able to reorient himself that he's in the hospital. pt does report he is dizzy. bp 97/66 hr 77, 90% RA. OT 115. pt back to bed x3 max. flat continued dizzy 92/55 hr77 reverse trand. position dizziness resolving 106/69- hr 71 93% RA. No distress ntoed. able to flatten bed. remains bedside. DR. Brannon notified.
[2024-08-30 19:28] LABS: Bedside Glucose 115 mg/dL (74-106)
[2024-08-30] MEDS: RisperiDONE 0.5 MG Tablet PO (22:09)
[2024-08-30] MEDS: Latanoprost 0.005% 1 Bottle 1 DRP RIGHT EYE (22:10)
[2024-08-31 01:03] LABS: Tobramycin Conventional Peak 8.9 ug/mL (4.00-8.00)
[2024-08-31 02:14] VITALS: BP 127/86; PULSE 99; RESP 16; TEMP 36.5; O2SAT 96
[2024-08-31] MEDS: CARBIDOPA/LEVODOPA CR 50/200 Tablet PO ×4 (06:31→21:36)
[2024-08-31] MEDS: Carbidopa/Levodopa 25/100 Tablet PO ×4 (06:33→21:40)
[2024-08-31 09:42] VITALS: BP 118/79; PULSE 94; RESP 16; TEMP 36.4; O2SAT 92
--- NOTE | 2024-08-31 10:27 | CASEMGMT ---
LUIS ZAYAS notified that therapy did not go well today. LUIS ZAYAS into pt room, nurse, student nurse and at bedside. Pt states pt does need more care than she can provide at home. Pt states part of therapy went well and part didn't go well. states pt did worse today than the last 2 days with therapy. She is aware that the SW will be in with a list of options. Provided with a local healthcare directory provider.
[2024-08-31] MEDS: Memantine Hydrochloride 10 MG Tablet PO ×2 (10:42→21:35)
[2024-08-31] MEDS: Pramipexole Di-HCl 1 MG Tablet PO ×4 (10:42→21:35)
[2024-08-31] MEDS: Furosemide 40 MG Tablet PO (10:43)
[2024-08-31] MEDS: Cyanocobalamin 500 MCG Tablet 1000 MCG PO (10:43)
[2024-08-31] MEDS: Tamsulosin HCl 0.4 MG Capsule PO (10:43)
[2024-08-31] MEDS: DULoxetine Hcl 60 MG Capsule PO (10:43)
[2024-08-31] MEDS: dilTIAZem CD 120 MG Capsule PO (10:43)
[2024-08-31] MEDS: Potassium Chloride Oral Tablet 20 MEQ PO ×2 (10:43→16:55)
[2024-08-31] MEDS: Ascorbic Acid 500 MG Tablet PO ×2 (10:43→16:56)
[2024-08-31] MEDS: Methenamine Hippurate 1 GM Tablet PO ×2 (10:43→21:34)
[2024-08-31] MEDS: Lactobacillis Acidophilus 1 CAP PO (10:43)
[2024-08-31] MEDS: RisperiDONE 0.5 MG Tablet PO ×2 (10:44→21:35)
[2024-08-31] MEDS: Dorzolamide HCL/Timolol 10 ml Bottle 2 DRP EACH EYE (10:45)
[2024-08-31] MEDS: prednisoLONE eye drops (5 mL) 1 DROP OPTH.BTL 1 DRP LEFT EYE (10:45)
[2024-08-31] MEDS: DAROLUTAMIDE 300 MG 600 MG PO ×2 (10:45)
--- NOTE | 2024-08-31 10:45 | CASEMGMT ---
Discharge Planning A list of SNF?providers including quality and resource use data and consistent with the patient's preferred geographic region, medical needs, and insurance network was created in [employer] Guide.? This list was provided to the SW. Pennie Peters, Discharge Planning Asst
[2024-08-31] MEDS: Enoxaparin 40 MG/0.4 ML Syringe SC (10:46)
[2024-08-31] MEDS: Lactated Ringers 500 ML 999 ML IV (10:54)
--- NOTE | 2024-08-31 10:55 | NURSING ---
Pt constantly looking up, thinks he is standing up and at his farm. States he is dizzy. Only looks at this RN or his when told to look otherwise pt is looking at the ceiling and reaching for the air. Dr. Swenson came in to see pt as P.T and O.T were here and attempted to get pt up oob. Pt was only able to sit to the edge of the bed. See P.T. O.T notes.
--- NOTE | 2024-08-31 11:19 | CASEMGMT ---
Social Work SW recevied referral from physician that pt will need SNF placement. SW met with pt's and dgt Joaquina on Speaker phone. Family agreeable that pt will need SNF placement. A list of SNF providers including quality and resource use data and consistent with the patient?s preferred geographic region, medical needs, and insurance network were provided from the [employer] Guide. Family's preferred providers are 1. [facility] 2. [facility] 3. [facility]. CARMEN spoke with Kristyn in TCU and no beds are available. DC pastrycook's assistant updated and to send referrals to [facility] and [facility]. CARMEN will await determination of acceptance. GABBIE Mondragon
--- NOTE | 2024-08-31 11:36 | CASEMGMT ---
Addendum entered by Pennie Peters 09/03/24 09:40: [facility] declined d/t no bed availability. Pennie Peters DC Planning Asst. Original Note: Discharge Planning Referral sent to [facility]. Pennie Peters DC Planning Asst.
--- NOTE | 2024-08-31 13:31 | CASEMGMT ---
Addendum entered by Pennie Peters 08/31/24 13:53: Both declined. SW updated. Pennie Peters DC Planning Asst. Original Note: Discharge Planning Referral sent to [facility] Pennie Peters DC Planning Asst.
--- NOTE | 2024-08-31 13:39 | CASEMGMT ---
Addendum entered by Ashley Cox 08/31/24 16:50: Social Work Referrals have been sent. SNFs expressing concerns regarding behaviors/hallucinations. Pt to be here over the weekend. SW to send updated clinicals on Tuesday for placement. Pt's updated and SW requested list be reviewed and additional choices be made. GABBIE Mondragon Addendum entered by Ashley Cox 08/31/24 14:12: Social Work [facility] unable to accept. [facility] is out of network. CARMEN met with family and informed of this. Family requesting referrals to the [facility] and [facility]. RENATE broker assistant updated. GABBIE Mondragon Original Note: Social Work SW met with pt's and two daughters and discussed discharge plan. Family notified that [facility] and [facility] do not have beds available. Family interested n [facility] and [facility]. RENATE broker assistant updated and referrals to be sent. GABBIE Mondragon
--- NOTE | 2024-08-31 13:52 | PCM.PN.ID ---
Physical Exam Narrative Much more confused and lethargic today Const Orientation / Consciousness: confused and lethargic Resp normal air movement and clear to auscultation bilaterally Cardio regular rate and regular rhythm GI soft to palpation, non-tender and non-distended Skin no rashes or lesions noted ID ID: Route of nutrition/ use of supplements: [] Nutritional Intake: [] IV Site: [] [place] Catheter: [] Assessment & Plan Assessment/Plan (1) Multiple drug resistant organism (MDRO) culture positive: (2) Chronic suprapubic catheter: (3) Acute alteration in mental status: PLAN: Ucx now with small amount VRE. Recent ucx 08/23/24 with MDR PsA. Mental status much worse today. Will check UA/Ucx again, start dapto, restart tobra. Will follow (4) History of Parkinson disease:
--- NOTE | 2024-08-31 14:33 | CASEMGMT ---
Addendum entered by Pennie Peters 09/03/24 09:40: [facility] declined d/t no bed availability. Pennie Peters DC Planning Asst. Addendum entered by Pennie Peters 09/03/24 09:38: Updates sent to both [facility] and [facility]. [facility] to do on-site today. SW and pts updated. Pennie Peters DC Planning Asst. Original Note: Discharge Planning Referral sent to [facility] and [facility]. Pennie Peters DC Planning Asst.
[2024-08-31] MEDS: 0.9% Normal Saline (100mL Bag) 100 ML 15 ML IV (15:27)
[2024-08-31] MEDS: DAPTOmycin 500mg/10ml Vial 500 MG in 0.9% Normal Saline (50mL Bag) 50 ML 100 MG IV (15:27)
[2024-08-31 15:30] VITALS: BP 114/80; PULSE 88; RESP 16; TEMP 36.4; O2SAT 91
[2024-08-31] MEDS: WATER IV (17:01)
[2024-08-31] MEDS: TOBRAMYCIN IV (17:01)
[2024-08-31] MEDS: DEXTROSE 5% IV (17:01)
[2024-08-31 17:14] LABS: Bacteria 0 SEEN /hpf (None Seen); Mucous, Urine 0 SEEN /hpf (<or=2+)
--- NOTE | 2024-08-31 17:26 | PCM.PN.HOSP ---
Reason for Visit Reason for Visit: Hallucinations Subjective Subjective Patient still with intermittent ongoing hallucinations. Highly suspect this is related to advancing Parkinson's disease. Did not do as well with therapy today so feels like he is going to need placement assistance with rehab prior to coming back home. Objective Data Objective Data Vital Signs: Vital Signs Temp Pulse Resp BP Pulse Ox O2 Del Method 97.5 F L 88 16 114/80 91 Room Air 08/31/24 15:30 08/31/24 15:30 08/31/24 15:30 08/31/24 15:30 08/31/24 15:30 08/31/24 15:30 Oxygen Delivery Method Room Air Weight: 81.3 kg Body Mass Index (BMI) 28.0 Intake & Output: Intake and Output for Last 24 Hours 08/29/24 08/30/24 08/31/24 23:59 23:59 23:59 Intake Total 455.00 / 455.00 1125.0 / 1125.0 1040 / 1040 Output Total 1600 / 1600 1700 / 1700 1350 / 1350 Balance -1145.00 / -1145.00 -575.0 / -575.0 -310 / -310 Lab / Micro Data 08/30/24 06:57 08/30/24 06:57 Labs: Laboratory Results - last 24 hr 08/30/24 11:00: Tobramycin Peak 8.9 H 08/30/24 19:06: POC Glucose 115 H Micro: Microbiology 08/28/24 16:40 Blood Culture (Wb) - Anticubital Left Blood Culture - Preliminary No growth in 48 hours. 08/28/24 16:15 Blood Culture (Wb) - Anticubital Left Blood Culture - Preliminary No growth in 48 hours. 08/28/24 18:43 Urine, Catheterized Urine Culture - Final Vancomycin Resist. E. faecium Physical Exam Const alert, no apparent distress, average body habitus and well nourished Constitutional Narrative: Elderly, white male, sitting up in a chair at the bedside, at bedside, appears comfortable, nontoxic, interacts appropriately, patient with mild resting tremor General Appearance: cooperative Orientation / Consciousness: confused HEENT normocephalic, head/scalp atraumatic, hearing grossly normal bilaterally and moist oral mucous membranes Resp normal respiratory effort, no retractions, no use of accessory muscles and clear to auscultation bilaterally Auscultation: Negative for rales, rhonchi or wheezes Cardio regular rate, regular rhythm, S1 normal heart sound, S2 normal heart sound, no murmurs, no rub, no gallops and no clicks GI normal to inspection, nondistended, normoactive bowel sounds, soft to palpation and non-tender Extremity no clubbing, cyanosis or edema Skin Skin Narrative: Neuro moves all extremities and no focal motor deficits Neuro Narrative: Patient was of bradykinesia and response times are slightly slow, mild resting tremor noted, generalized weakness but no specific focal deficit noted physical therapy at the bedside and patient with significant retropulsion today Sensorium / Orientation: awake, alert, oriented to person and oriented to place Speech: speech normal Psych affect normal Psych Narrative: Affect is flat but appropriate, patient interacts well Assessment & Plan Assessment/Plan (1) Multiple drug resistant organism (MDRO) culture positive: (2) Chronic suprapubic catheter: (3) Acute alteration in mental status: (4) Visual hallucinations: PLAN: Plan 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 twice daily to see if these improve his hallucinations -This could affect his tremors, and make it worse -Will monitor and see how he does -Advise close follow-up with his outpatient neurologist Dr. 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 and is on Flomax -Also has suprapubic catheter placed about a year ago -Has had frequent UTIs -Unable to change suprapubic catheter prior to discharge due to no urology availability -Recommend that patient change History of prostate cancer -Remote -Previous radiation with history of radiation cystitis Essential hypertension -Continue home diltiazem -Continue home torsemide Glaucoma -Continue home eyedrops History of Parkinson's disease -Continue home carbidopa levodopa -continue Mirapex -Watch Parkinson symptoms closely with initiation of risperidone -PT/OT History of DVT -Remote -Patient is not anticoagulated at this time Dementia -Suspect Lewy body or related to Parkinson's -Continue home memantine History of atrial fibrillation -Continue home diltiazem -Patient's not anticoagulated due to fall risk -Remains in normal sinus rhythm Depression -Continue home duloxetine DVT prophylaxis -Continue CODE STATUS -DNR CCA with no intubation Dispo: Pt need placement. Awaiting acceptance and will need pre-CERT prior to discharge. Anticipate patient will be here through the weekend Charges/Coding Visit Charges Inpatient E&M: 53143 [facility] Hosp L1
--- NOTE | 2024-08-31 17:27 | PCM.RX.CS ---
Consult Antibiotic Management Pharmacy has been consulted to manage selected antibiotic: Tobramycin Type of Intervention Type of Consult: New start Suspected Infection Suspected Infection: Other (UTI) Labs Labs: Sodium 139 mmol/L (133-145) 08/30/24 06:57 Potassium 3.3 mmol/L (3.3-5.1) 08/30/24 06:57 Carbon Dioxide 22.2 mmol/L (22.0-29.0) 08/30/24 06:57 Anion Gap 15 (5-15) 08/30/24 06:57 BUN 12 mg/dL (4-19) 08/30/24 06:57 Creatinine 0.8 mg/dL (0.8-1.3) 08/30/24 06:57 Est GFR (MDRD) Non-Af 89 (>60) 08/30/24 06:57 BUN/Creatinine Ratio 14.6 RATIO (10-20) 08/30/24 06:57 Glucose 97 mg/dL (70-99) 08/30/24 06:57 Tobramycin Peak 8.9 ug/mL (4.00-8.00) H 08/30/24 11:00 Microbiology Microbiology: Microbiology 08/28/24 16:40 Blood Culture (Wb) - Anticubital Left Blood Culture - Preliminary No growth in 48 hours. 08/28/24 16:15 Blood Culture (Wb) - Anticubital Left Blood Culture - Preliminary No growth in 48 hours. 08/28/24 18:43 Urine, Catheterized Urine Culture - Final Vancomycin Resist. E. faecium Dosing Weight Weight used for dosin.1 kg Estimated Creatinine Clearance Estimated Creatinine Clearance: 75 ML/MIN Goal Trough Goal Trough: Other (GOAL PEAK 3-5 MCG/ML, GOAL TROUGH <1 MCG/ML) Pharmacy Plan for Drug Dosing Pharmacy Plan for Drug Dosing: Give tobra 130mg IV x1 initial dose (based on ideal body weight of 66.1kg dosed at 2mg/kg). Then continue with 60mg IV q8h. The patient was on tobra recently and a dose of 100mg q8h resulted in a peak of 8.9 so will decrease dose to 60mg q8h to aim for the peak of 3-5 mcg/ml. Will order a peak after the 3rd dose and the trough before the 4th dose. Pharmacy Service will continue to monitor and adjust dosing as required. Follow-Up Labs Follow-Up Labs: Peak: Tobramycin (09/01/24 10:00 after 3rd dose complete) Date/Time Labs Ordered Labs to be done on [date and time ordered]: peak 09/01 10:00 and trough 09/01 16:30
[2024-08-31 17:36] LABS: Color, Urine Straw (Yellow); Glucose, Dipstick Normal (Normal); Ketone-Dipstick Negative (Negative); Leukocyte Esterase-Dipstick 500 /ul (Negative); Nitrite-Dipstick Negative (Negative); Occult Blood-Urine 25 /ul (Negative); Protein-Dipstick 15 mg/dl (Negative); Urine Bilirubin Dipstick Negative (Negative); Urine Urobilinogen Normal (Normal); Urine pH 6.5 (5.0 - 8.0)
[2024-08-31 18:34] LABS: Red Blood Cells-Urine 0-5 SEEN /hpf (0-5); White Blood Cells 10-25 SEEN /hpf (0-5)
[2024-08-31 18:35] LABS: Squamous Epithelial Cells - UA 0-5 SEEN /hpf (0-5); Urine Clarity Sl Cldy (Clear)
[2024-08-31] MEDS: MELATONIN 3 MG TABLET 6 MG PO (21:34)
[2024-09-01] MEDS: TOBRAMYCIN IV ×3 (01:49→18:55)
[2024-09-01] MEDS: DEXTROSE 5% IV ×3 (01:49→18:55)
[2024-09-01] MEDS: WATER IV ×3 (01:49→18:55)
[2024-09-01 05:58] LABS: Anion Gap 14 (5-15); BUN 14 mg/dL (4-19); Calcium 9.1 mg/dL (7.6-11.0); Carbon Dioxide 25.3 mmol/L (22.0-29.0); Chloride 104 mmol/L (96-108); Creatinine, Serum 0.91 mg/dL (0.70-1.20); EST Glomerular Filtration Rate 86 (>60); Glucose 111 mg/dL (70-99); Potassium 3.6 mmol/L (3.3-5.1); Sodium Level 143 mmol/L (133-145)
[2024-09-01] MEDS: CARBIDOPA/LEVODOPA CR 50/200 Tablet PO ×4 (06:17→21:36)
[2024-09-01 06:25] VITALS: BP 110/68; PULSE 92; RESP 16; TEMP 36.5; O2SAT 96
[2024-09-01] MEDS: Potassium Chloride Oral Tablet 20 MEQ PO ×2 (11:11→17:46)
[2024-09-01] MEDS: Lactated Ringers 1,000 ML 75 ML IV (11:11)
[2024-09-01] MEDS: Dorzolamide HCL/Timolol 10 ml Bottle 2 DRP EACH EYE ×2 (11:12→21:37)
[2024-09-01] MEDS: Lactobacillis Acidophilus 1 CAP PO (11:12)
[2024-09-01] MEDS: dilTIAZem CD 120 MG Capsule PO (11:12)
[2024-09-01] MEDS: Ascorbic Acid 500 MG Tablet PO ×2 (11:12→17:46)
[2024-09-01] MEDS: DULoxetine Hcl 60 MG Capsule PO (11:13)
[2024-09-01] MEDS: Methenamine Hippurate 1 GM Tablet PO ×2 (11:13→21:36)
[2024-09-01] MEDS: Furosemide 40 MG Tablet PO (11:13)
[2024-09-01] MEDS: Tamsulosin HCl 0.4 MG Capsule PO (11:13)
[2024-09-01] MEDS: prednisoLONE eye drops (5 mL) 1 DROP OPTH.BTL 1 DRP LEFT EYE ×2 (11:14→21:38)
[2024-09-01] MEDS: Memantine Hydrochloride 10 MG Tablet PO ×2 (11:14→21:37)
[2024-09-01] MEDS: Pramipexole Di-HCl 1 MG Tablet PO ×4 (11:14→21:35)
[2024-09-01] MEDS: Enoxaparin 40 MG/0.4 ML Syringe SC (11:14)
[2024-09-01] MEDS: Cyanocobalamin 500 MCG Tablet 1000 MCG PO (11:15)
[2024-09-01] MEDS: RisperiDONE 0.25 MG Tablet PO (11:50)
[2024-09-01] MEDS: Carbidopa/Levodopa 25/100 Tablet PO ×3 (11:52→21:36)
--- NOTE | 2024-09-01 12:23 | PN.HOSP_ITS ---
Reason for Visit Reason for Visit: Worsening hallucinations Subjective Subjective Patient had a bad night was confused and up all night. Sleeping soundly this morning. Daughter at bedside. Still having hallucinations. Antibiotics added back yesterday by infectious disease due to change in behavior. Objective Data Objective Data Vital Signs: Vital Signs Temp Pulse Resp BP Pulse Ox O2 Del Method 97.7 F L 92 16 110/68 96 Room Air 09/01/24 06:25 09/01/24 06:25 09/01/24 06:25 09/01/24 06:25 09/01/24 06:09/01/24 08:00 Oxygen Delivery Method Room Air Weight: 81.3 kg Body Mass Index (BMI) 28.0 Intake & Output: Intake and Output for Last 24 Hours 08/30/24 08/31/24 09/01/24 23:59 23:59 23:59 Intake Total 1125.0 / 1125.0 1553.25 / 1653.25 203.0 / 203.0 Output Total 1700 / 1700 2550 / 2550 500 / 500 Balance -575.0 / -575.0 -996.75 / -896.75 -297.0 / -297.0 Lab / Micro Data 08/30/24 06:57 09/01/24 05:17 Labs: Laboratory Results - last 24 hr 08/31/24 16:40: Urine Color Straw, Urine Clarity Sl Cldy, Urine pH 6.5, Ur Specific [place] 1.010, Urine Protein 15 H, Urine Glucose (UA) Normal, Urine Ketones Negative, Urine Occult Blood 25 H, Urine Nitrite Negative, Urine Bilirubin Negative, Urine Urobilinogen Normal, Ur Leukocyte Esterase 500 H, Urine RBC 0-5 SEEN, Urine WBC 10-25 SEEN, Ur Squamous Epith Cells 0-5 SEEN, Urine Bacteria 0 SEEN, Urine Mucus 0 SEEN 09/01/24 05:17: Sodium 143, Potassium 3.6, Chloride Direct 104, Carbon Dioxide 25.3, Anion Gap 14, BUN 14, Creatinine 0.91, Estim Creat Clear Calc 66.10, Est GFR (MDRD) Non-Af 86, BUN/Creatinine Ratio 15.0, Glucose 111 H, Calcium 9.1 Micro: Microbiology 08/31/24 16:40 Suprapubic Tap Urine Culture - Preliminary Culture exhibits no growth. 08/28/24 16:40 Blood Culture (Wb) - Anticubital Left Blood Culture - Preliminary No growth in 48 hours. 08/28/24 16:15 Blood Culture (Wb) - Anticubital Left Blood Culture - Preliminary No growth in 48 hours. 08/28/24 18:43 Urine, Catheterized Urine Culture - Final Vancomycin Resist. E. faecium Physical Exam Const no apparent distress, average body habitus and well nourished Constitutional Narrative: Elderly, white male, sleeping soundly in bed, daughter at bedside, appears comfortable, does not look toxic General Appearance: cooperative HEENT normocephalic and head/scalp atraumatic HEENT Narrative: Mucous membranes are slightly dry, Mallampati 2, no thrush, lower dentures were falling into the back of his airway so we did remove those Resp normal respiratory effort, no retractions, no use of accessory muscles and clear to auscultation bilaterally Auscultation: Negative for rales, rhonchi or wheezes Cardio regular rate, regular rhythm, S1 normal heart sound, S2 normal heart sound, no murmurs, no rub, no gallops and no clicks GI normal to inspection, nondistended, normoactive bowel sounds, soft to palpation and non-tender GI Narrative: Suprapubic catheter in place Extremity no clubbing, cyanosis or edema Extremity Narrative: Pedal and radial pulses are 2+ Skin Skin Narrative: Neuro Neuro Narrative: Sleeping soundly Psych Psych Narrative: Patient sleeping soundly and unable to assess Assessment & Plan Assessment/Plan (1) Multiple drug resistant organism (MDRO) culture positive: (2) Chronic suprapubic catheter: (3) Acute alteration in mental status: (4) Visual hallucinations: PLAN: Plan 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 dose of risperidone to 0.25 mg and increase nocturnal dose to 1 mg and see if this helps -This could affect his tremors, and make it worse -Will monitor and see how he does -Advise close follow-up with his outpatient neurologist Dr. 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 and is on Flomax -Also has suprapubic catheter placed about a year ago -Has had frequent UTIs -Unable to change suprapubic catheter prior to discharge due to no urology availability -Recommend that patient change History of prostate cancer -Remote -Previous radiation with history of radiation cystitis Essential hypertension -Continue home diltiazem -Continue home torsemide Glaucoma -Continue home eyedrops History of Parkinson's disease -Continue home carbidopa levodopa -continue Mirapex -Continue to watch Parkinson symptoms closely with initiation of risperidone -PT/OT History of DVT -Remote -Patient is not anticoagulated at this time Dementia -Suspect Lewy body or related to Parkinson's -Continue home memantine History of atrial fibrillation -Continue home diltiazem -Patient's not anticoagulated due to fall risk -Remains in normal sinus rhythm Depression -Continue home duloxetine DVT prophylaxis -Continue CODE STATUS -DNR CCA with no intubation Dispo: Pt need placement. Awaiting acceptance and will need pre-CERT prior to discharge. Anticipate patient will be here through the weekend. Can do right now Charges/Coding Visit Charges Inpatient E&M: 81197 Subs Hosp L2
[2024-09-01 12:25] VITALS: BP 129/85; PULSE 94; RESP 14; TEMP 37; O2SAT 97
[2024-09-01 14:43] LABS: Tobramycin Conventional Peak 6.2 ug/mL (4.00-8.00)
[2024-09-01] MEDS: DAPTOmycin 500mg/10ml Vial 500 MG in 0.9% Normal Saline (50mL Bag) 50 ML 100 MG IV (15:13)
[2024-09-01 16:30] VITALS: BP 118/64; PULSE 89; RESP 14; TEMP 36.6; O2SAT 96
[2024-09-01 18:18] LABS: Tobramycin Conventional Trough 2.8 ug/mL (<2.00)
[2024-09-01 21:27] VITALS: BP 100/68; PULSE 98; RESP 20; TEMP 37.6; O2SAT 94
[2024-09-01] MEDS: Latanoprost 0.005% 1 Bottle 1 DRP RIGHT EYE (21:37)
[2024-09-01 23:05] VITALS: BP 118/81; PULSE 97; RESP 22; TEMP 37.1; O2SAT 93
[2024-09-02] MEDS: Lactated Ringers 1,000 ML 75 ML IV (05:08)
[2024-09-02] MEDS: Carbidopa/Levodopa 25/100 Tablet PO ×3 (05:18→16:23)
[2024-09-02] MEDS: CARBIDOPA/LEVODOPA CR 50/200 Tablet PO ×3 (05:18→16:21)
[2024-09-02 05:19] VITALS: BP 114/74; PULSE 92; RESP 18; TEMP 37; O2SAT 94
[2024-09-02 05:48] LABS: Absolute Lymphocyte Count 0.52 X10^3/uL (0.83-4.51); Absolute Neutrophil Count 5.9 X10^3/uL (2.0-7.7); Basophil# 0.03 X10^3/uL; Basophil% 0.4 % (0-1); Eosinophil# 0.05 X10^3/uL; Eosinophils% 0.7 % (0-5); Hematocrit 44.3 % (40-54); Hemoglobin 14.1 g/dL (13.0-16.5); Lymphocyte # 0.52 X10^3/ul (0.83-4.51); Lymphocyte % 6.9 % (19-41); Mean Corp Hgb Conc 31.8 g/dL (32-36); Mean Corpuscular Hgb 26.1 pg (27.0-32.0); Mean Corpuscular Volume 81.9 fL (80-94); Monocyte# 0.97 X10^3/uL; NRBC Flagged by Analyzer 0 % (0-5); Neutrophil # 5.88 X10^3/uL (2.7-7.7); Neutrophil % 78.5 % (47-70); POSITIVE DIFFERENTIAL YES; Platelet Count 140 K/mm3 (150-450); RBC Distribution Width CV 19.8 % (11.6-14.6); RBC Distribution Width SD 56.9 fl (35.1-43.9); Red Blood Count 5.41 M/mm3 (4.6-6.2); White Blood Count 7.5 K/mm3 (4.4-11.0)
[2024-09-02 06:13] LABS: Anion Gap 13 (5-15); BUN 22 mg/dL (4-19); Calcium 9.1 mg/dL (7.6-11.0); Carbon Dioxide 25.4 mmol/L (22.0-29.0); Chloride 106 mmol/L (96-108); Creatinine, Serum 0.91 mg/dL (0.70-1.20); EST Glomerular Filtration Rate 85 (>60); Glucose 112 mg/dL (70-99); Potassium 3.2 mmol/L (3.3-5.1); Sodium Level 144 mmol/L (133-145)
--- NOTE | 2024-09-02 07:23 | PN.HOSP_ITS ---
Reason for Visit Reason for Visit: Hallucinations Subjective Subjective Much better today. Patient is alert able to interact and doing better with therapy. Family at the bedside. I suspect it was likely a combination between discontinuation of antibiotics and potentially worsening UTI as well as the risperidone to help with his hallucinations. Risperidone was stopped yesterday and patient is back on antibiotics as of Tuesday. Clinically seems to be doing much better. Swelling is still little bit affected so we will have speech therapy see him. Objective Data Objective Data Vital Signs: Vital Signs Temp Pulse Resp BP Pulse Ox O2 Del Method 98.6 F 92 18 114/74 94 Room Air 09/02/24 05:19 09/02/24 05:19 09/02/24 05:19 09/02/24 05:19 09/02/24 05:19 09/02/24 05:19 Oxygen Delivery Method Room Air Weight: 81.3 kg Body Mass Index (BMI) 28.0 Intake & Output: Intake and Output for Last 24 Hours 08/31/24 09/01/24 09/02/24 23:59 23:59 23:59 Intake Total 1553.25 / 1653.25 1034.25 / 1034.25 1000 / 1000 Output Total 2550 / 2550 1050 / 1150 200 / 200 Balance -996.75 / -896.75 -15.75 / -115.75 800 / 800 Lab / Micro Data 09/02/24 05:18 09/02/24 05:18 Labs: Laboratory Results - last 24 hr 09/01/24 10:19: Tobramycin Peak 6.2 09/01/24 16:35: Tobramycin Trough 2.8 H* 09/02/24 05:18: WBC 7.5, RBC 5.41, Hgb 14.1, Hct 44.3, MCV 81.9, MCH 26.1 L, M CHC 31.8 L, RDW Std Deviation 56.9 H, RDW Coeff of Manuela 19.8 H, Plt Count 140 L, MPV TNP, Immature Gran % (Auto) 0.500, Neut % (Auto) 78.5 H, Lymph % (Auto) 6.9 L, [place] % (Auto) 13.0 H, Eos % (Auto) 0.7, Baso % (Auto) 0.4, Absolute Neuts (auto) 5.9, Absolute Lymphs (auto) 0.52 L, Nucleated RBC % 0, Sodium 144, P otassium 3.2 L, Chloride Direct 106, Carbon Dioxide 25.4, Anion Gap 13, BUN 22 H , Creatinine 0.91, Estim Creat Clear Calc 66.10, Est GFR (MDRD) Non-Af 85, B UN/Creatinine Ratio 24.0 H, Glucose 112 H, Calcium 9.1 Micro: Microbiology 08/31/24 16:40 Suprapubic Tap Urine Culture - Preliminary Culture exhibits no growth. 08/28/24 16:40 Blood Culture (Wb) - Anticubital Left Blood Culture - Preliminary No growth in 48 hours. 08/28/24 16:15 Blood Culture (Wb) - Anticubital Left Blood Culture - Preliminary No growth in 48 hours. 08/28/24 18:43 Urine, Catheterized Urine Culture - Final Vancomycin Resist. E. faecium Physical Exam Const alert, no apparent distress, average body habitus and well nourished Constitutional Narrative: Elderly, white male, sitting up in the edge of the bed with therapy at the bedside, currently stands with minimal assist of 1 and standby assist for standing which is much improved, family at the bedside HEENT normocephalic, head/scalp atraumatic and moist oral mucous membranes HEENT Narrative: Mallampati 2-3, no thrush Resp normal respiratory effort, no retractions, no use of accessory muscles and clear to auscultation bilaterally Auscultation: Negative for rales, rhonchi or wheezes Cardio regular rate, regular rhythm, S1 normal heart sound, S2 normal heart sound, no murmurs, no rub, no gallops and no clicks GI normal to inspection, nondistended, normoactive bowel sounds, soft to palpation and non-tender GI Narrative: Suprapubic catheter in place Extremity no clubbing, cyanosis or edema Extremity Narrative: Pedal and radial pulses are 2+ Skin Skin Narrative: Neuro oriented x3, moves all extremities and no focal motor deficits Neuro Narrative: Bradykinesia and masked facies present, speech is clear but response times are slightly slow Sensorium / Orientation: awake, alert, oriented to person and oriented to place; Negative for oriented to time Psych affect normal Psych Narrative: Pleasant, interacts appropriately Assessment & Plan Assessment/Plan (1) Multiple drug resistant organism (MDRO) culture positive: (2) Chronic suprapubic catheter: (3) Acute alteration in mental status: (4) Visual hallucinations: PLAN: Plan Multidrug-resistant PsAg complicated UTI secondary to chronic suprapubic catheter -Antibiotics were discontinued by infectious disease on 08/30/2024 but patient more lethargic and VRE was in urine as well along with multidrug-resistant PsAg -Antibiotics were initiated with tobramycin and daptomycin -Continue antibiotics as ordered -Await ongoing ID input Toxic/metabolic encephalopathy -Resolving Hallucinations -Hallucinations may be related to advancing Parkinson disease and UTI -We did trial risperidone but this seemed to make his Parkinson's symptoms worse so it was discontinued -Very low-dose as needed Haldol -Advise close follow-up with his outpatient neurologist Dr. Boss Hypokalemia -P.o. potassium replacement given -Recheck in a.m. -Patient does have intermittent issues with hypokalemia and he is on potassium at baseline BPH with obstruction -Patient has chronic urinary retention and is on Flomax -Also has suprapubic catheter placed about a year ago -Has had frequent UTIs -Unable to change suprapubic catheter prior to discharge due to no urology availability -Recommend that patient change History of prostate cancer -Remote -Previous radiation with history of radiation cystitis Essential hypertension -Continue home diltiazem -Continue home torsemide Glaucoma -Continue home eyedrops History of Parkinson's disease -Continue home carbidopa levodopa -continue Mirapex -Continue to watch Parkinson symptoms closely with initiation of risperidone -PT/OT History of DVT -Remote -Patient is not anticoagulated at this time Dementia -Suspect Lewy body or related to Parkinson's -Continue home memantine History of atrial fibrillation -Continue home diltiazem -Patient's not anticoagulated due to fall risk -Remains in normal sinus rhythm Depression -Continue home duloxetine DVT prophylaxis -Continue CODE STATUS -DNR CCA with no intubation Dispo: Patient is in need of placement. Awaiting pre-CERT. Speech therapy eval pending. May be able to discharge tomorrow pre-CERT is obtained. Need plan from ID for discharge antibiotics. Charges/Coding Visit Charges Inpatient E&M: 67841 Subs Hosp L2
[2024-09-02] MEDS: Potassium Chloride Oral Tablet 20 MEQ 60 MEQ PO (08:28)
[2024-09-02] MEDS: Potassium Chloride Oral Tablet 20 MEQ PO ×2 (08:28→16:21)
[2024-09-02] MEDS: Ascorbic Acid 500 MG Tablet PO ×2 (08:28→16:21)
[2024-09-02 08:53] VITALS: BP 142/76; PULSE 90; RESP 14; TEMP 36.8; O2SAT 97
[2024-09-02] MEDS: dilTIAZem CD 120 MG Capsule PO (10:14)
[2024-09-02] MEDS: Lactobacillis Acidophilus 1 CAP PO (10:14)
[2024-09-02] MEDS: Dorzolamide HCL/Timolol 10 ml Bottle 2 DRP EACH EYE (10:14)
[2024-09-02] MEDS: Furosemide 40 MG Tablet PO (10:15)
[2024-09-02] MEDS: Methenamine Hippurate 1 GM Tablet PO (10:15)
[2024-09-02] MEDS: DULoxetine Hcl 60 MG Capsule PO (10:15)
[2024-09-02] MEDS: Tamsulosin HCl 0.4 MG Capsule PO (10:15)
[2024-09-02] MEDS: Enoxaparin 40 MG/0.4 ML Syringe SC (10:15)
[2024-09-02] MEDS: Memantine Hydrochloride 10 MG Tablet PO (10:16)
[2024-09-02] MEDS: Pramipexole Di-HCl 1 MG Tablet PO ×3 (10:16→16:22)
[2024-09-02] MEDS: DAROLUTAMIDE 300 MG 600 MG PO (10:16)
[2024-09-02] MEDS: Cyanocobalamin 500 MCG Tablet 1000 MCG PO (10:17)
[2024-09-02] MEDS: prednisoLONE eye drops (5 mL) 1 DROP OPTH.BTL 1 DRP LEFT EYE (10:17)
[2024-09-02] MEDS: WATER IV ×2 (10:49→23:00)
[2024-09-02] MEDS: DEXTROSE 5% IV ×2 (10:49→23:00)
[2024-09-02] MEDS: TOBRAMYCIN IV ×2 (10:49→23:00)
[2024-09-02] MEDS: DAPTOmycin 500mg/10ml Vial 500 MG in 0.9% Normal Saline (50mL Bag) 50 ML 100 MG IV (13:29)
[2024-09-02 17:00] VITALS: BP 128/76; PULSE 86; RESP 16; TEMP 36.7; O2SAT 96
[2024-09-03] MEDS: Dorzolamide HCL/Timolol 10 ml Bottle 2 DRP EACH EYE ×3 (01:00→22:08)
[2024-09-03] MEDS: prednisoLONE eye drops (5 mL) 1 DROP OPTH.BTL 1 DRP LEFT EYE ×3 (01:01→23:47)
[2024-09-03] MEDS: Latanoprost 0.005% 1 Bottle 1 DRP RIGHT EYE ×2 (01:02→22:00)
[2024-09-03] MEDS: Pramipexole Di-HCl 1 MG Tablet PO ×5 (01:03→22:01)
[2024-09-03] MEDS: Methenamine Hippurate 1 GM Tablet PO ×3 (01:03→22:01)
[2024-09-03] MEDS: Memantine Hydrochloride 10 MG Tablet PO ×3 (01:04→22:01)
[2024-09-03] MEDS: CARBIDOPA/LEVODOPA CR 50/200 Tablet PO ×5 (01:04→22:01)
[2024-09-03] MEDS: Carbidopa/Levodopa 25/100 Tablet PO ×5 (01:07→22:01)
[2024-09-03] MEDS: 0.9% Normal Saline (100mL Bag) 100 ML 15 ML IV (01:07)
[2024-09-03 05:38] VITALS: BP 126/81; PULSE 87; RESP 16; TEMP 36.6; O2SAT 93
[2024-09-03 07:53] LABS: Hematocrit 44.9 % (40-54); Mean Corp Hgb Conc 31.2 g/dL (32-36); Mean Corpuscular Hgb 25.8 pg (27.0-32.0); Mean Corpuscular Volume 82.8 fL (80-94); Platelet Count 133 K/mm3 (150-450); RBC Distribution Width SD 58.3 fl (35.1-43.9); Red Blood Count 5.42 M/mm3 (4.6-6.2)
[2024-09-03 07:56] LABS: Scan Indicated on CBC? Y/N NO
[2024-09-03] MEDS: Potassium Chloride Oral Tablet 20 MEQ PO ×2 (09:08→16:39)
[2024-09-03] MEDS: Ascorbic Acid 500 MG Tablet PO ×2 (09:08→16:40)
[2024-09-03] MEDS: Lactobacillis Acidophilus 1 CAP PO (09:13)
[2024-09-03] MEDS: dilTIAZem CD 120 MG Capsule PO (09:14)
[2024-09-03] MEDS: Cyanocobalamin 500 MCG Tablet 1000 MCG PO (09:14)
[2024-09-03] MEDS: Enoxaparin 40 MG/0.4 ML Syringe SC (09:14)
[2024-09-03] MEDS: DAROLUTAMIDE 300 MG 600 MG PO (09:15)
[2024-09-03] MEDS: Furosemide 40 MG Tablet PO (09:15)
[2024-09-03] MEDS: DULoxetine Hcl 60 MG Capsule PO (09:15)
[2024-09-03] MEDS: Tamsulosin HCl 0.4 MG Capsule PO (09:15)
[2024-09-03] MEDS: DEXTROSE 5% IV ×2 (09:27→23:47)
[2024-09-03] MEDS: TOBRAMYCIN IV ×2 (09:27→23:47)
[2024-09-03] MEDS: WATER IV ×2 (09:27→23:47)
[2024-09-03 09:38] LABS: Anion Gap 13 (5-15); BUN 24 mg/dL (4-19); BUN/Creat Ratio 28.1 RATIO (10-20); Calcium 8.8 mg/dL (7.6-11.0); Carbon Dioxide 25.4 mmol/L (22.0-29.0); Chloride 108 mmol/L (96-108); Creatinine, Serum 0.85 mg/dL (0.70-1.20); EST Glomerular Filtration Rate 88 (>60); Estimated Creatinine Clearance 70.76 ml/min (50-250); Glucose 123 mg/dL (70-99); Potassium 3.4 mmol/L (3.3-5.1); Sodium Level 146 mmol/L (133-145)
[2024-09-03 09:42] VITALS: BP 104/67; PULSE 95; RESP 16; TEMP 37.7; O2SAT 92
--- NOTE | 2024-09-03 09:56 | CASEMGMT ---
Social Work- [facility]; all declined. Pt referred to [facility]; accepted. Precert pending. SW remains available to follow. GABBIE Kruger
--- NOTE | 2024-09-03 09:58 | CASEMGMT ---
[facility] has accepted and pts is agreeable with placement. Requested that precert be started. SW updated. Pennie Peters DC Planning Asst.
[2024-09-03 10:46] LABS: Tobramycin Conventional Peak 2.6 ug/mL (4.00-8.00)
--- NOTE | 2024-09-03 11:27 | PN_ITS ---
Subjective Subjective Patient seen and examined. His was by his bedside. He complained of burning at the tip of his penis with urination, though he had a suprapubic catheter in situ. Fever is 100F today. Wbc today is 12. Objective Data Objective Data Vital Signs: Vital Signs Temp Pulse Resp BP Pulse Ox O2 Del Method 100 F H 95 16 104/67 92 Room Air 09/03/24 09:42 09/03/24 09:42 09/03/24 09:42 09/03/24 09:42 09/03/24 09:42 09/03/24 09:42 Oxygen Delivery Method Room Air Weight: 179 lb 3.773 oz Body Mass Index (BMI) 28.0 Intake & Output: Intake and Output for Last 24 Hours 09/01/24 09/02/24 09/03/24 23:59 23:59 23:59 Intake Total 1034.25 / 1034.25 2642.50 / 2692.50 201.25 / 201.25 Output Total 1050 / 1150 1250 / 1925 800 / 800 Balance -15.75 / -115.75 1392.50 / 767.50 -598.75 / -598.75 Lab / Micro Data 09/03/24 06:54 09/03/24 06:54 Labs: Laboratory Results - last 24 hr 09/03/24 06:54: WBC 12.0 H, RBC 5.42, Hgb 14.0, Hct 44.9, MCV 82.8, MCH 25.8 L, MCHC 31.2 L, RDW Std Deviation 58.3 H, RDW Coeff of Manuela 20.0 H, Plt Count 133 L, Sodium 146 H, Potassium 3.4, Chloride Direct 108, Carbon Dioxide 25.4, Anion Gap 13, BUN 24 H, Creatinine 0.85, Estim Creat Clear Calc 70.76, Est GFR (MDRD) Non- Af 88, BUN/Creatinine Ratio 28.1 H, Glucose 123 H, Calcium 8.8 09/03/24 10:15: Tobramycin Peak 2.6 L Micro: Microbiology 08/31/24 16:40 Suprapubic Tap Urine Culture - Final Vancomycin Resist. E. faecium 08/28/24 16:40 Blood Culture (Wb) - Anticubital Left Blood Culture - Final No growth in 5 days. 08/28/24 16:15 Blood Culture (Wb) - Anticubital Left Blood Culture - Final No growth in 5 days. 08/28/24 18:43 Urine, Catheterized Urine Culture - Final Vancomycin Resist. E. faecium Physical Exam Const alert, oriented x3 and no apparent distress General Appearance: cooperative HEENT normocephalic, head/scalp atraumatic, moist oral mucous membranes and oropharynx normal Eyes PERRL and EOMs intact bilaterally Neck no lymphadenopathy and supple Lymph Lymphatic: no lymphadenopathy noted and no lymphedema noted Cardio regular rate, regular rhythm, S1 normal heart sound, S2 normal heart sound and no murmurs GI normal to inspection, nondistended, normoactive bowel sounds, soft to palpation, non-tender and non-distended GI Narrative: suprapubic catheter in situ. Extremity normal capillary refill, no clubbing, cyanosis or edema and no calf tenderness General Extremity: no tenderness to palpation of joints or extremities Skin General Skin Exam: no breakdown Neuro CN's II-XII intact bilaterally, no focal motor deficits and no sensory deficits noted Coordination / Balance: [id number] test normal Motor Exam: general weakness Psych thought process normal Mood & Affect: flat affect Assessment & Plan Assessment/Plan (1) Multiple drug resistant organism (MDRO) culture positive: (2) Chronic suprapubic catheter: (3) History of Parkinson disease: PLAN: Plan #UTI in the setting of chronic suprapubic catheter due to multi drug resistant Pseudomonas. * was originally on antibiotics and this was discontinued on 08/30/2024. * urine cultures growing VRE and multi drug resistant Pseudomonas. * on IV daptomycin and tobramycin. * ID on board. Await rec's * #Recurrent hallucinations * thought to be due to Parkinson's disease and UTI * on haldol prn * follow up with neurology on outpatient basis. * #Hypokalemia: potassium replaced. WIll trend and monitor. #BPH with obstruction * has suprapubic catheter in situ. Has had recurrent UTIs. * on flomax. * suprapubic catheter not changed during this admission due to urology ont being available. To follow up with urology on outpatient basis. * #History of prostate cancer : s/p radiation and radiation cystitis. #Benign essential hypertension: on torsemide and cardizem. #History of Parkinson's disease * on carbidopa levodopa and mirapex. * pT/OT on board * #History of dementia: on memantine #History of afib: on cardizem. Not anticoagulated due to fall risk. DVT prophylaxis: on lovenox Charges/Coding Visit Charges Inpatient E&M: 59758 Subs Hosp L2
[2024-09-03 11:32] VITALS: BP 92/69; PULSE 89; RESP 16; TEMP 36.7; O2SAT 93
[2024-09-03] MEDS: DAPTOmycin 500mg/10ml Vial 500 MG in 0.9% Normal Saline (50mL Bag) 50 ML 100 MG IV (13:45)
[2024-09-03] MEDS: 0.9% Saline Lock 10 ML Syringe IV (13:45)
--- NOTE | 2024-09-03 13:46 | PCM.PN.ID ---
Physical Exam Narrative Feeling better, still some hallucinations, fatigue. No fever, no abd pain Const alert and no apparent distress General Appearance: cooperative Resp normal air movement and clear to auscultation bilaterally Cardio regular rate and regular rhythm GI soft to palpation, non-tender and non-distended Skin no rashes or lesions noted ID ID: Route of nutrition/ use of supplements: [] Nutritional Intake: [] IV Site: [] Somers Catheter: [] Assessment & Plan Assessment/Plan (1) Multiple drug resistant organism (MDRO) culture positive: (2) Chronic suprapubic catheter: (3) Acute alteration in mental status: PLAN: Ucx now with small amount VRE. Recent ucx 08/23/24 with MDR PsA. Mental status much better today. Cont dapto/tobra, may able to leave tomorrow with dose of fosfomycin 3gm po x1. Cont methenamine and vit C for uti prevention. ID followup in one month. Will follow (4) History of Parkinson disease:
[2024-09-03 15:25] VITALS: BP 122/87; PULSE 93; RESP 16; TEMP 36.4; O2SAT 92
[2024-09-03 21:46] VITALS: BP 121/82; PULSE 97; RESP 16; TEMP 36.5; O2SAT 93
[2024-09-03 22:16] LABS: Tobramycin Conventional Trough 1.2 ug/mL (<2.00)
--- NOTE | 2024-09-03 23:59 | PCM.RX.CS ---
Consult Antibiotic Management Pharmacy has been consulted to manage selected antibiotic: Tobramycin Type of Intervention Type of Consult: Follow-up Suspected Infection Suspected Infection: Other Labs Labs: Sodium 146 mmol/L (133-145) H 09/03/24 06:54 Potassium 3.4 mmol/L (3.3-5.1) 09/03/24 06:54 Carbon Dioxide 25.4 mmol/L (22.0-29.0) 09/03/24 06:54 Anion Gap 13 (5-15) 09/03/24 06:54 BUN 24 mg/dL (4-19) H 09/03/24 06:54 Creatinine 0.85 mg/dL (0.70-1.20) 09/03/24 06:54 Est GFR (MDRD) Non-Af 88 (>60) 09/03/24 06:54 BUN/Creatinine Ratio 28.1 RATIO (10-20) H 09/03/24 06:54 Glucose 123 mg/dL (70-99) H 09/03/24 06:54 Tobramycin Peak 2.6 ug/mL (4.00-8.00) L 09/03/24 10:15 Tobramycin Trough 1.2 ug/mL (<2.00) 09/03/24 20:38 Microbiology Microbiology: Microbiology 08/31/24 16:40 Suprapubic Tap Urine Culture - Final Vancomycin Resist. E. faecium 08/28/24 16:40 Blood Culture (Wb) - Anticubital Left Blood Culture - Final No growth in 5 days. 08/28/24 16:15 Blood Culture (Wb) - Anticubital Left Blood Culture - Final No growth in 5 days. 08/28/24 18:43 Urine, Catheterized Urine Culture - Final Vancomycin Resist. E. faecium Dosing Weight Weight used for dosin kg Estimated Creatinine Clearance Estimated Creatinine Clearance: 71 Goal Trough Goal Trough: Other Pharmacy Plan for Drug Dosing Pharmacy Plan for Drug Dosing: Tobramycin lab values were drawn 09/03/24. The peak was 2.6. The trough was 1.2. The target levels are for a peak between 3-5 and trough <1. With a low peak and high trough recommended increasing the dose to 60mg, but decreasing the frequency to q24h. Labs will again be drawn in relation to the 3rd & 4th doses of the new regimen. Pharmacy Service will continue to monitor and adjust dosing as required. Follow-Up Labs Follow-Up Labs: Trough: Tobramycin Date/Time Labs Ordered Labs to be done on [date and time ordered]: 09/05/24 @2330 (peak); 09/06/24 @2230 (trough)
[2024-09-04 04:21] VITALS: BP 118/80; PULSE 84; RESP 16; TEMP 36.5; O2SAT 95
[2024-09-04] MEDS: CARBIDOPA/LEVODOPA CR 50/200 Tablet PO ×4 (06:12→21:18)
[2024-09-04] MEDS: Carbidopa/Levodopa 25/100 Tablet PO ×4 (06:15→21:14)
[2024-09-04 07:40] LABS: Absolute Lymphocyte Count 0.57 X10^3/uL (0.83-4.51); Absolute Neutrophil Count 6.5 X10^3/uL (2.0-7.7); Basophil# 0.03 X10^3/uL; Basophil% 0.4 % (0-1); Eosinophil# 0.09 X10^3/uL; Eosinophils% 1.2 % (0-5); Hematocrit 42.6 % (40-54); Hemoglobin 13.5 g/dL (13.0-16.5); Lymphocyte # 0.57 X10^3/ul (0.83-4.51); Lymphocyte % 7.3 % (19-41); Mean Corp Hgb Conc 31.7 g/dL (32-36); Mean Corpuscular Hgb 26.5 pg (27.0-32.0); Mean Corpuscular Volume 83.7 fL (80-94); Monocyte# 0.61 X10^3/uL; Monocyte% 7.8 % (0-10); NRBC Flagged by Analyzer 0 % (0-5); Neutrophil # 6.47 X10^3/uL (2.7-7.7); Neutrophil % 82.8 % (47-70); POSITIVE DIFFERENTIAL YES; Platelet Count 142 K/mm3 (150-450); RBC Distribution Width SD 58.4 fl (35.1-43.9); Red Blood Count 5.09 M/mm3 (4.6-6.2); White Blood Count 7.8 K/mm3 (4.4-11.0)
[2024-09-04 08:53] LABS: Anion Gap 12 (5-15); BUN 24 mg/dL (4-19); BUN/Creat Ratio 30.6 RATIO (10-20); Calcium,Total 8.8 mg/dL (7.6-11.0); Carbon Dioxide 25.7 mmol/L (21.0-32.0); Chloride 108 mmol/L (98-108); Creatinine, Serum 0.79 mg/dL (0.70-1.20); EST Glomerular Filtration Rate 90 (>60); Estimated Creatinine Clearance 75.19 ml/min (50-250); Glucose 107 mg/dL (70-99); Potassium 3.5 mmol/L (3.3-5.1); Sodium Level 146 mmol/L (133-145)
[2024-09-04 09:31] VITALS: BP 125/84; PULSE 88; RESP 16; TEMP 36.4; O2SAT 93
[2024-09-04] MEDS: DULoxetine Hcl 60 MG Capsule PO (10:03)
[2024-09-04] MEDS: Potassium Chloride Oral Tablet 20 MEQ PO ×2 (10:03→16:34)
[2024-09-04] MEDS: dilTIAZem CD 120 MG Capsule PO (10:03)
[2024-09-04] MEDS: Dorzolamide HCL/Timolol 10 ml Bottle 2 DRP EACH EYE ×2 (10:03→21:14)
[2024-09-04] MEDS: Ascorbic Acid 500 MG Tablet PO ×2 (10:03→16:34)
[2024-09-04] MEDS: Lactobacillis Acidophilus 1 CAP PO (10:03)
[2024-09-04] MEDS: prednisoLONE eye drops (5 mL) 1 DROP OPTH.BTL 1 DRP LEFT EYE ×2 (10:04→21:16)
[2024-09-04] MEDS: Pramipexole Di-HCl 1 MG Tablet PO ×4 (10:04→21:14)
[2024-09-04] MEDS: DAROLUTAMIDE 300 MG 600 MG PO (10:04)
[2024-09-04] MEDS: Methenamine Hippurate 1 GM Tablet PO ×2 (10:04→21:14)
[2024-09-04] MEDS: Memantine Hydrochloride 10 MG Tablet PO ×2 (10:04→21:14)
[2024-09-04] MEDS: Enoxaparin 40 MG/0.4 ML Syringe SC (10:04)
[2024-09-04] MEDS: Tamsulosin HCl 0.4 MG Capsule PO (10:04)
[2024-09-04] MEDS: Furosemide 40 MG Tablet PO (10:04)
[2024-09-04] MEDS: Cyanocobalamin 500 MCG Tablet 1000 MCG PO (10:05)
--- NOTE | 2024-09-04 10:08 | CASEMGMT ---
[facility] has obtained auth to admit. SW updated. Pennie Peters DC Planning Asst.
--- NOTE | 2024-09-04 10:11 | PN.ID_ITS ---
Physical Exam Narrative Feeling better but still weak Const alert and no apparent distress Resp normal air movement and clear to auscultation bilaterally Cardio regular rate and regular rhythm GI soft to palpation, non-tender and non-distended Skin no rashes or lesions noted ID ID: Route of nutrition/ use of supplements: [] Nutritional Intake: [] IV Site: [] Somers Catheter: [] Assessment & Plan Assessment/Plan (1) Multiple drug resistant organism (MDRO) culture positive: (2) Chronic suprapubic catheter: (3) Acute alteration in mental status: PLAN: Ucx now with small amount VRE. Recent ucx 08/23/24 with MDR PsA. Mental status much better today. Cont dapto/tobra while here, prior to discharge would give dose of fosfomycin 3gm po x1. Cont methenamine and vit C for uti pre vention. ID followup in one month. Will follow (4) History of Parkinson disease:
[2024-09-04 12:51] VITALS: BP 106/68; PULSE 89; RESP 18; TEMP 36.7; O2SAT 94
--- NOTE | 2024-09-04 13:13 | TREXTCAR_ITS ---
Diet Diet Order/Speech Therapy: 09/02/24 12:25 Diet: Cardiac - Heart Healthy Food consistency:: Pureed Liquid Consistency:: [place]/Mildly Thick Routine Orders/Code Status Enema Type: Fleetz Enema Frequency: Daily PRN Suppository Type: Dulcolax 10mg Suppository Frequency: Daily PRN DC O2, CPAP, BIPAP needs Home O2 Discharge instructions: No Therapies Weight Bearing: Weight bearing as tolerated Extremity Affected:: Bilateral Lower Physical Therapy: Eval and Treat Occupational Therapy: Eval and Treat Problem/Diagnosis (1) Multiple drug resistant organism (MDRO) culture positive: Status: Acute Code(s): Z16.24 - Resistance to multiple antibiotics (2) Chronic suprapubic catheter: Status: Chronic Code(s): Z93.59 - Other cystostomy status (3) Acute alteration in mental status: Status: Acute Code(s): R41.82 - Altered mental status, unspecified (4) History of Parkinson disease: Status: Acute Code(s): Z86.69 - Personal history of other diseases of the nervous system and sense organs Plan #UTI in the setting of chronic suprapubic catheter due to multi drug resistant Pseudomonas. * was originally on antibiotics and this was discontinued on 08/30/2024. * urine cultures growing VRE and multi drug resistant Pseudomonas. * on IV daptomycin and tobramycin. * ID on board. Await rec's * #Recurrent hallucinations * thought to be due to Parkinson's disease and UTI * on haldol prn * follow up with neurology on outpatient basis. * #Hypokalemia: potassium replaced. WIll trend and monitor. #BPH with obstruction * has suprapubic catheter in situ. Has had recurrent UTIs. * on flomax. * suprapubic catheter not changed during this admission due to urology ont being available. To follow up with urology on outpatient basis. * #History of prostate cancer : s/p radiation and radiation cystitis. #Benign essential hypertension: on torsemide and cardizem. #History of Parkinson's disease * on carbidopa levodopa and mirapex. * pT/OT on board * #History of dementia: on memantine #History of afib: on cardizem. Not anticoagulated due to fall risk. DVT prophylaxis: on lovenox Allergies/Procedures Done in Hospital Allergies lidocaine Allergy (Verified 08/28/24 15:00) Angioedema peppermint Allergy (Verified 08/28/24 15:00) Angioedema phenylephrine Allergy (Verified 08/28/24 15:00) Angioedema doxycycline Adverse Reaction (Intermediate, Verified 08/28/24 15:00) [facility]URN Procedures: None Type of Care/Length of Stay Estimated LOS: Convalescent Care Less Than 30 days Type of Care Needed: Skilled Rehab Potential: Fair Prognosis: Fair Additional Orders/Day of Discharge Day of Discharge: 09/04/24 Discharge Plan Admission Admit Date/Time: 08/29/24 13:39 Primary Reason for Your Visit: Multi drug resistant UTI Attending Provider: Cassi Yang Primary Care Provider: Masoud Rosa Consulting Providers: Raoul Major; Tom Cervantes; Nila Swenson Instructions Patient Instructions: ED Urinary Tract Infections in Men Discharge Orders/Prescriptions Prescriptions: Continued carbidopa-levodopa 50-200 mg tablet extended release 1 tablet PO 4X/DAY Rx Instructions: TAKE 1 IN THE MORNING, 1 AT LUNCH, 1 IN THE EVENING, AND 1 AT BEDTIME dorzolamide-timolol 22.3-6.8 mg/mL drops 1 - 2 drp OPHTHALMIC BID duloxetine 60 mg capsule,delayed release(DR/EC) 60 mg PO DAILY Nubeqa 300 mg tablet 600 mg PO DAILY Patient Comments: PT AWARE THEY HAVE TO BRING THIS MED IN. latanoprost 0.005 % drops 1 drp RIGHT EYE QHS memantine 10 mg tablet 10 mg PO BID (DME) Space Chamber Spacer See Rx Instructions .Route Qty: 1 0RF Rx Instructions: As directed prednisolone acetate 1 % drops,suspension 1 drp ophthalmic (eye) Q12H Rx Instructions: USE IN LEFT EYE ascorbic acid (vitamin C) 500 mg Tablet 500 mg PO BIDCM 90 Days Qty: 180 1RF Rx Instructions: for nursing home uti prevention methenamine hippurate 1 gram Tablet 1 g PO BID 90 Days Qty: 180 1RF Rx Instructions: for nursing home uti prevention potassium chloride 20 mEq Tablet,Er Particles/Crystals 20 meq PO BIDCM Qty: 60 0RF carbidopa-levodopa 25-100 mg tablet 2 tab PO 4X/DAY Patient Comments: TAKE WITH THE 50/200 TABS pramipexole 1 mg Tablet 1 mg PO 4X/DAY torsemide 20 mg tablet 20 mg PO DAILY tamsulosin 0.4 mg capsule 0.4 mg PO DAILY mecobalamin (vitamin B12) 1,000 mcg tablet,chewable 1,000 mcg PO DAILY acetaminophen 500 mg Tablet 1,000 mg PO Q6H PRN (Reason: Pain 1-10) Lactobacillus acidophilus 25 million cell capsule 50,000,000 cell PO DAILY diltiazem HCl 120 mg capsule,extended release 24 hr See Rx Instructions .ROUTE .COMPLEX Qty: 90 3RF Dose Instruction: take 1 capsule by mouth once daily Rx Instructions: take 1 capsule by mouth once daily Referrals / Follow Up: Masoud Rosa MD [Primary Care Provider] - Within 1 Week Disposition Disposition (needs filled in before D/C Order can be placed): Group Home Facility
--- NOTE | 2024-09-04 13:14 | PCM.DC.SUM ---
Providers Date of Admission: 08/29/24 Primary Care Physician: Dr. Masoud Rosa MD Consultations 08/29/24 08:12 Consult: Infectious Disease Routine Consulting Provider: Tom Cervantes Reason for Consult: MDR PsAg EMERGENT Consult: No MD Notified: Yes Date Notified: 08/29/24 Time Notified: 08:13 Method of Notification: Text Reason For Visit: MDR UTI & WORSENING HALLUCINATIONS Diagnosis Discharge Diagnosis (1) Multiple drug resistant organism (MDRO) culture positive: Status: Acute Code(s): Z16.24 - Resistance to multiple antibiotics (2) Chronic suprapubic catheter: Status: Chronic Code(s): Z93.59 - Other cystostomy status (3) Acute alteration in mental status: Status: Acute Code(s): R41.82 - Altered mental status, unspecified (4) History of Parkinson disease: Status: Acute Code(s): Z86.69 - Personal history of other diseases of the nervous system and sense organs Plan #UTI in the setting of chronic suprapubic catheter due to multi drug resistant Pseudomonas. was originally on antibiotics and this was discontinued on 08/30/2024. urine cultures growing VRE and multi drug resistant Pseudomonas. on IV daptomycin and tobramycin. ID on board. Await rec's #Recurrent hallucinations thought to be due to Parkinson's disease and UTI on haldol prn follow up with neurology on outpatient basis. #Hypokalemia: potassium replaced. WIll trend and monitor. 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 Has had recurrent UTIs. on flomax. suprapubic catheter not changed during this admission due to urology ont being available. To follow up with urology on outpatient basis. #History of prostate cancer : s/p radiation and radiation cystitis. #Benign essential hypertension: on torsemide and cardizem. #History of Parkinson's disease on carbidopa levodopa and mirapex. pT/OT on board #History of dementia: on memantine #History of afib: on cardizem. Not anticoagulated due to fall risk. DVT prophylaxis: on lovenox Medications at Discharge Home Medications carbidopa ER 50 mg-levodopa 200 mg tablet,extended release 1 tablet PO 4X/DAY parkinsons 09/25/20 dorzolamide 22.3 mg-timolol 6.8 mg/mL eye drops 1 - 2 drp ophthalmic (eye) BID glaucoma 09/25/20 latanoprost 0.005 % eye drops 1 drp RIGHT EYE QHS eye he 09/10/21 memantine 10 mg tablet 10 mg PO BID MEMORY 09/10/21 inhalational spacing device (Space Chamber) #1 ea 08/08/23 potassium chloride 20 mEq tablet,extended release(part/cryst) 20 meq PO BIDCM Supplement #60 tabs 11/17/23 diltiazem HCl 120 mg capsule,24 hr,extended release See Rx Instructions .Route .COMPLEX heart #90 CAPSULES 02/01/24 darolutamide 300 mg tablet (Nubeqa) 600 mg PO DAILY Prostate 02/04/24 duloxetine 60 mg capsule,delayed release 60 mg PO DAILY Mood 02/04/24 prednisolone acetate 1 % eye drops,suspension 1 drp ophthalmic (eye) Q12H Eye drops 05/29/24 ascorbic acid (vitamin C) 500 mg tablet 500 mg PO BIDCM 90 days #180 tabs 06/18/24 methenamine hippurate 1 gram tablet 1 g PO BID 90 days #180 tabs 06/18/24 Lactobacillus acidophilus 25 million cell capsule 50,000,000 cell PO DAILY gut health 08/28/24 acetaminophen 500 mg tablet 1,000 mg PO Q6H PRN Pain 1-10 08/28/24 carbidopa 25 mg-levodopa 100 mg tablet 2 tab PO 4X/DAY parkinson 08/28/24 mecobalamin (vitamin B12) 1,000 mcg chewable tablet 1,000 mcg PO DAILY supplement 08/28/24 pramipexole 1 mg tablet 1 mg PO 4X/DAY 08/28/24 tamsulosin 0.4 mg capsule 0.4 mg PO DAILY 08/28/24 torsemide 20 mg tablet 20 mg PO DAILY 08/28/24 Weight / BMI Weight Weight: 179 lb 3.773 oz Body Mass Index (BMI) 28.0 ABG / Lab / Microbiology Data 09/04/24 06:54 09/04/24 06:54 Laboratory: Laboratory Results - last 24 hr 09/03/24 20:38: Tobramycin Trough 1.2 09/04/24 06:54: WBC 7.8, RBC 5.09, Hgb 13.5, Hct 42.6, MCV 83.7, MCH 26.5 L, MCHC 31.7 L, RDW Std Deviation 58.4 H, RDW Coeff of Manuela 20.0 H, Plt Count 142 L, MPV TNP, Immature Gran % (Auto) 0.500, Neut % (Auto) 82.8 H, Lymph % (Auto) 7.3 L, [place] % (Auto) 7.8, Eos % (Auto) 1.2, Baso % (Auto) 0.4, Absolute Neuts (auto) 6.5, Absolute Lymphs (auto) 0.57 L, Nucleated RBC % 0, Sodium 146 H, Potassium 3.5, Chloride 108, Carbon Dioxide 25.7, Anion Gap 12, BUN 24 H, Creatinine 0.79, Estim Creat Clear Calc 75.19, Est GFR (MDRD) Non-Af 90, BUN/Creatinine Ratio 30.6 H, Glucose 107 H, Calcium 8.8 Microbiology: Microbiology 08/31/24 16:40 Suprapubic Tap Urine Culture - Final Vancomycin Resist. E. faecium 08/28/24 16:40 Blood Culture (Wb) - Anticubital Left Blood Culture - Final No growth in 5 days. 08/28/24 16:15 Blood Culture (Wb) - Anticubital Left Blood Culture - Final No growth in 5 days. 08/28/24 18:43 Urine, Catheterized Urine Culture - Final Vancomycin Resist. E. faecium D/C Instructions DC O2, CPAP, BIPAP Needs Home O2 Discharge instructions: No Meaningful Use Info Ischemic Stroke Statin Dosing Therapy Reference: STATIN DOSE THERAPY REFERENCE: * Patients > 75 years receive moderate or high dose statin therapy. * Patients 75 years or YOUNGER should receive HIGH intensity statin dose unless contraindicated. You will be required to document reason for non-treatment if statin daily dose does not meet guidelines. HIGH DOSE STATIN THERAPY DAILY Atorvastatin > than or = to 40 mg Rosuvastatin > than or = to 20 mg Amlodipine + Atorvastatin > than or = to 2.5/40 mg Ezetimibe + Simvastatin 10/80 mg Simvastatin 80mg Discharge Plan Admission Admit Date/Time: 08/29/24 13:39 Primary Reason for Your Visit: Multi drug resistant UTI Attending Provider: Cassi Yang Primary Care Provider: Masoud Rosa Consulting Providers: Raoul Major; Tom Cervantes; Messi,Nila Instructions Patient Instructions: ED Urinary Tract Infections in Men Discharge Orders/Prescriptions Prescriptions: Continued carbidopa-levodopa 50-200 mg tablet extended release 1 tablet PO 4X/DAY Rx Instructions: TAKE 1 IN THE MORNING, 1 AT LUNCH, 1 IN THE EVENING, AND 1 AT BEDTIME dorzolamide-timolol 22.3-6.8 mg/mL drops 1 - 2 drp OPHTHALMIC BID duloxetine 60 mg capsule,delayed release(DR/EC) 60 mg PO DAILY Nubeqa 300 mg tablet 600 mg PO DAILY Patient Comments: PT AWARE THEY HAVE TO BRING THIS MED IN. latanoprost 0.005 % drops 1 drp RIGHT EYE QHS memantine 10 mg tablet 10 mg PO BID (DME) Space Chamber Spacer See Rx Instructions .Route Qty: 1 0RF Rx Instructions: As directed prednisolone acetate 1 % drops,suspension 1 drp ophthalmic (eye) Q12H Rx Instructions: USE IN LEFT EYE ascorbic acid (vitamin C) 500 mg Tablet 500 mg PO BIDCM 90 Days Qty: 180 1RF Rx Instructions: for [facility] uti prevention methenamine hippurate 1 gram Tablet 1 g PO BID 90 Days Qty: 180 1RF Rx Instructions: for [facility] uti prevention potassium chloride 20 mEq Tablet,Er Particles/Crystals 20 meq PO BIDCM Qty: 60 0RF carbidopa-levodopa 25-100 mg tablet 2 tab PO 4X/DAY Patient Comments: TAKE WITH THE 50/200 TABS pramipexole 1 mg Tablet 1 mg PO 4X/DAY torsemide 20 mg tablet 20 mg PO DAILY tamsulosin 0.4 mg capsule 0.4 mg PO DAILY mecobalamin (vitamin B12) 1,000 mcg tablet,chewable 1,000 mcg PO DAILY acetaminophen 500 mg Tablet 1,000 mg PO Q6H PRN (Reason: Pain 1-10) Lactobacillus acidophilus 25 million cell capsule 50,000,000 cell PO DAILY diltiazem HCl 120 mg capsule,extended release 24 hr See Rx Instructions .ROUTE .COMPLEX Qty: 90 3RF Dose Instruction: take 1 capsule by mouth once daily Rx Instructions: take 1 capsule by mouth once daily Referrals / Follow Up: Masoud Rosa MD [Primary Care Provider] - Within 1 Week Disposition Disposition (needs filled in before D/C Order can be placed): [facility]od[facility] Facility
--- NOTE | 2024-09-04 14:25 | PN_ITS ---
Subjective Subjective Patient seen and examined today. He was lying comfortably in bed. His was by his bedside. He had remained hemodynamically stable and had an uneventful night. Plan was for possible discharge today but it turns out speech therapy had ordered a modified barium swallow. Review of systems otherwise negative. Objective Data Objective Data Vital Signs: Vital Signs Temp Pulse Resp BP Pulse Ox O2 Del Method 98.0 F 89 18 106/68 94 Room Air 09/04/24 12:51 09/04/24 12:51 09/04/24 12:51 09/04/24 12:51 09/04/24 12:51 09/04/24 12:51 Oxygen Delivery Method Room Air Weight: 179 lb 3.773 oz Body Mass Index (BMI) 28.0 Intake & Output: Intake and Output for Last 24 Hours 09/02/24 09/03/24 09/04/24 23:59 23:59 23:59 Intake Total 2642.50 / 2692.50 336.25 / 486.25 301.5 / 301.5 Output Total 1250 / 1925 800 / 1500 1050 / 1050 Balance 1392.50 / 767.50 -463.75 / -1013.75 -748.5 / -748.5 Lab / Micro Data 09/04/24 06:54 09/04/24 06:54 Labs: Laboratory Results - last 24 hr 09/03/24 20:38: Tobramycin Trough 1.2 09/04/24 06:54: WBC 7.8, RBC 5.09, Hgb 13.5, Hct 42.6, MCV 83.7, MCH 26.5 L, M CHC 31.7 L, RDW Std Deviation 58.4 H, RDW Coeff of Manuela 20.0 H, Plt Count 142 L, MPV TNP, Immature Gran % (Auto) 0.500, Neut % (Auto) 82.8 H, Lymph % (Auto) 7.3 L, Archuleta % (Auto) 7.8, Eos % (Auto) 1.2, Baso % (Auto) 0.4, Absolute Neuts (auto) 6.5, Absolute Lymphs (auto) 0.57 L, Nucleated RBC % 0, Sodium 146 H, Potassium 3.5, Chloride 108, Carbon Dioxide 25.7, Anion Gap 12, BUN 24 H, Creatinine 0.79, Estim Creat Clear Calc 75.19, Est GFR (MDRD) Non-Af 90, BUN/Creatinine Ratio 30.6 H, Glucose 107 H, Calcium 8.8 Micro: Microbiology 08/31/24 16:40 Suprapubic Tap Urine Culture - Final Vancomycin Resist. E. faecium 08/28/24 16:40 Blood Culture (Wb) - Anticubital Left Blood Culture - Final No growth in 5 days. 08/28/24 16:15 Blood Culture (Wb) - Anticubital Left Blood Culture - Final No growth in 5 days. 08/28/24 18:43 Urine, Catheterized Urine Culture - Final Vancomycin Resist. E. faecium Physical Exam Const alert, oriented x3, no apparent distress, average body habitus and well nourished General Appearance: cooperative HEENT normocephalic, head/scalp atraumatic, hearing grossly normal bilaterally, moist oral mucous membranes and oropharynx normal Eyes PERRL, EOMs intact bilaterally and conjunctivae normal Neck no lymphadenopathy, supple and no JVD Lymph Lymphatic: no lymphadenopathy noted and no lymphedema noted Resp normal respiratory effort, normal air movement, no retractions, no use of accessory muscles and clear to auscultation bilaterally Auscultation: Negative for rales, rhonchi or wheezes Cardio regular rate, regular rhythm, S1 normal heart sound, S2 normal heart sound, no murmurs, no rub, no gallops and no clicks GI normal to inspection, nondistended, normoactive bowel sounds, soft to palpation, non-tender and non-distended GI Narrative: suprapubic catheter in situ. Extremity normal to inspection, full ROM, normal capillary refill, no clubbing, cyanosis or edema and no calf tenderness Extremity Narrative: Pedal and radial pulses are 2+ General Extremity: no tenderness to palpation of joints or extremities Skin Skin Narrative: General Skin Exam: no breakdown Neuro moves all extremities and no focal motor deficits Neuro Narrative: flat affect, bradykinesia Motor Exam: general weakness Psych Psych Narrative: Pleasant, interacts appropriately Mood & Affect: flat affect Assessment & Plan Assessment/Plan (1) Multiple drug resistant organism (MDRO) culture positive: (2) Chronic suprapubic catheter: (3) Acute alteration in mental status: (4) History of Parkinson disease: PLAN: Plan #UTI in the setting of chronic suprapubic catheter due to multi drug resistant Pseudomonas. * was originally on antibiotics and this was discontinued on 08/30/2024. * urine cultures growing VRE and multi drug resistant Pseudomonas. * on IV daptomycin and tobramycin. * ID on board. Await rec's * #Recurrent hallucinations * thought to be due to Parkinson's disease and UTI * on haldol prn * follow up with neurology on outpatient basis. * #Hypokalemia: potassium replaced. WIll trend and monitor. #BPH with obstruction * has suprapubic catheter in situ. Has had recurrent UTIs. * on flomax. * suprapubic catheter not changed during this admission due to urology not being available. To follow up with urology on outpatient basis. * #Mild hyponatremia: Sodium is 146 today. Was 146 yesterday 2. Will give patient very gentle hydration with D5 water at border 2. #Dysphagia: * Modified diet per speech therapy. * Barium swallow ordered today per speech therapy. * Diet to be adjusted based on modified barium swallow results. * #History of prostate cancer : s/p radiation and radiation cystitis. #Benign essential hypertension: on torsemide and cardizem. #History of Parkinson's disease * on carbidopa levodopa and mirapex. * pT/OT on board * #History of dementia: on memantine #History of afib: on cardizem. Not anticoagulated due to fall risk. DVT prophylaxis: on lovenox Disposition: Discharge to long term home pending modified barium swallow results. Charges/Coding Visit Charges Inpatient E&M: 22473 Subs Hosp L2
[2024-09-04] MEDS: FOSFOMYCIN TROMETHAMINE 3 GM PACKET PO (15:07)
[2024-09-04] MEDS: DAPTOmycin 500mg/10ml Vial 500 MG in 0.9% Normal Saline (50mL Bag) 50 ML 100 MG IV (15:07)
[2024-09-04] MEDS: 0.9% Saline Lock 10 ML Syringe IV (15:08)
--- NOTE | 2024-09-04 15:37 | ST.MBS ---
Modified Barium Swallow Patient Information Study Date: 09/04/24 Study Time: 13:49 Direct Billable Minutes: 84 Total Minutes procedure & reportin Diagnosis: Parkinson's disease G20; Debility R53.81 Referring Physician: Cassi Yang Reason for Referral: Assess swallow function, assess risk for aspiration, and determine recommendations for least restrictive diet textures and compensatory strategies to facilitate safe po intake. Medical History: Mendoza Carlson is an 79 y/o male who was sent in by his urologist to [facility] ER 08/28/2024 to be started on IV antibiotics for treatment of UTI/urinary retention with multiple drug resistant organism (MDRO) culture positive and MRSA (methicillin resistant staph aureus) culture positive with patient's stating he was having worsening and almost continual hallucinations. PMHx significant for Parkinson's disease as well as dementia. ST consulted for evaluation of pt's swallow function on 09/02/2024. Pt was recommended for puree textures / mildly thick liquids. PATTERN DEVELOPER recommended MBSS to further assess risk for aspiration and determine if pt was appropriate for diet advancement due to good diet tolerance and pt's dislike of thickened liquids. Pt's agreeable to his participation in MBSS today. Current Diet Ordered: Puree Textures / Mildly Thick Mental Status: Impaired (Hx of PD and dementia) Respiratory Status: Oxygenating on Room Air Penetration-Aspiration Scale Penetration-Aspiration Scale: OBJECTIVE ASSESSMENT OF SWALLOW FUNCTION (QUANTITATIVE ? PER TRIAL): PENETRATION / ASPIRATION SCALE (ANDERSON): 1 = does not enter airway 2 = enters airway/above vocal folds/ejected 3 = enters airway/above vocal folds/not ejected 4 = enters airway/contacts vocal folds/ejected 5 = enters airway/contacts vocal folds/not ejected 6 = enters airway/below vocal folds/ejected 7 = enters airway/below vocal folds/not ejected despite effort 8 = enters airway/below vocal folds/no effort VIDEOFLOROSCOPIC SCALE SCORE (ANDERSON): Grade I = aspiration of material that has penetrated into the laryngeal vestibule, intact cough reflex Grade II = aspiration < 10 % of the bolus, intact cough reflex Grade III = aspiration of < 10 % of the bolus, reduced cough reflex or aspiration of > 10 % of the bolus, intact cough reflex Grade IV = aspiration of > 10 % of the bolus, reduced cough reflex Penetration-Aspiration Scale Score Thin Liquid via teaspoon: Result: 1= does not enter airway Thin Liquid via teaspoon Trial 2: Result: 5= enters airways/contacts vocal folds/not ejected Thin Liquid via small single sip: cup: Result: 2= enter airway/above vocal folds/ejected [place] Thick Liquid via small single sip: cup: Result: 2= enter airway/above vocal folds/ejected Pudding via teaspoon: Result: 1= does not enter airway Comment: Esophageal screen - Retention in lower esophagus. Thin Liquid via sequential sips:straw: Result: 5= enters airways/contacts vocal folds/not ejected Thin Liquid via single sip: straw: Result: 1= does not enter airway Thin Liquid via sequential sips:straw Trial 2: Result: 5= enters airways/contacts vocal folds/not ejected Comment: Cued cough and re-swallow to clear barium from vocal folds Thin Liquid via single sip: straw Trial 2: Result: 1= does not enter airway Thin Liquid via single sip: straw Trial 3: Result: 2= enter airway/above vocal folds/ejected 2 Diced Peaches Coated in Barium Pudding: Result: 1= does not enter airway Thin Liquid via single sip: straw Trial 4: Result: 1= does not enter airway Oral Phase Labial Seal: Interlabial escape, no progression to anterior lip Tongue Control During Bolus Hold: Posterior escape of greater than half of bolus Bolus Preparation/Mastication: Disorganized chewing/mashing with solid pieces of bolus unchewed Bolus Transport/Lingual Motion: Repetitive/disorganized tongue motion Oral Residue: Residue collection on oral structures (Piece of un-chewed peach in back of oral cavity after the initial swallow) Pharyngeal Phase Initiation of Pharyngeal Swallow: Bolus head in pyriforms Soft Palate Elevation: Trace column of contrast/air between soft palate and pharyngeal wall Laryngeal Elevation: Partial superior movement thyroid cart/partial apprx aryt-epig petiole Anterior Hyoid Excursion: Partial anterior movement Epiglottic Movement: Complete inversion Laryngeal Vestibule Closure at Height of Swallow: Incomplete; narrow column of air/contrast in laryngeal vestibule Pharyngeal Stripping Wave: Present - diminished Pharyngoesophageal Segment Opening: Complete distension and complete duration; no obstruction of flow Tongue Base Retraction: Narrow column of contrast between tongue base & post. pharyngeal wall Pharyngeal Residue: Trace residue within or on pharyngeal structures Esophageal Phase Esophageal Clearance: Esophageal retention Diagnosis/Impression Diagnosis: Mild-moderate oropharyngeal dysphagia R13.12 Impression: The oral phase is marked by... -Poor bolus control w/ loss of liquids to the pyriforms prior to swallow onset. -Disorganized tongue motion for A-P transport. -Decreased mastication w/ piece of un-chewed peach in the back of the pt's throat after the first swallow. Pt is at risk for choking due to mastication deficits. Will recommend minced and moist textures. -Mild oral residues after the swallow, including peach trial. Mild liquid residues spilled to the pharynx after the swallow on certain trials, especially sequential thin. The pharyngeal phase is marked by... -Delayed swallow onset. -Decreased airway closure due to decreased laryngeal elevation and anterior hyoid excursion. Deep laryngeal penetration of sequential sips of thin liquids, which did not fully eject. Cued cough did clear trace barium from vocal folds. No aspiration was observed. Decreased bolus size and rate were effective in reducing risk for aspiration. The esophageal phase is marked by... -Mild retention of pudding in lower esophagus. Recommendations Comment: Diet Textures: Minced and Moist textures ? IDDSI Level 5 Thin liquids - IDDSI Level 0 Medications crushed in applesauce Compensatory Strategies: ? Small sips via straw, 1 at a time ? Small bites ? Slow rate ? Alternate bites & sips ? Sit upright during & 30 min after meals ? Oral care after meals Supervision: Total Feed Recommend Repeat Modified Barium Swallow: TBD Need for Skilled Speech Therapy Services: Yes Comment: -Train staff and family in strategies to decrease risk for aspiration. -Ongoing assessment of diet tolerance of recommended textures. -If pt is able to follow commands to execute, train the patient in oropharyngeal exercise program to improve bolus control and airway closure (lingual resistance, effortful, CTAR). Education Completed: 1. Described result of evaluation., 4. Family/caregivers understand evaluation & agree w/ goals & tx plan. and 7. Pt requires further education on strategies & risks. Status Active ST Patient: Active Contact Information [facility] Speech Therapy:: Prerna Bender M.A. CCC-PATTERN DEVELOPER? Speech-Language Pathologist?? [facility] [address] [place] [address]? [email or web address]?? [phone]
[2024-09-04 16:23] VITALS: BP 122/79; PULSE 91; RESP 16; TEMP 37; O2SAT 97
[2024-09-04] MEDS: Dextrose 5%-Water (1000mL Bag) 1,000 ML 75 ML IV (16:33)
--- NOTE | 2024-09-04 17:32 | CASEMGMT ---
Social Work- SW met with pt and pt family to discuss precert approval and pending discharge. Pt family relayed concerns regarding discharge today. Pt is to have barium swallow study; pt family concerned about pt swallowing pills and would like to await results of study prior to discharge. Pt family concerned about the one dose of oral abx prior to discharge as well. SW provided support. SW relayed concerns to infectious disease and hospitalist. SW remains available to follow. Plan: [place] [facility] [place]; silled level of care GABBIE Kruger
[2024-09-04 20:30] VITALS: BP 111/69; PULSE 82; RESP 15; TEMP 36.5; O2SAT 94
[2024-09-04] MEDS: Latanoprost 0.005% 1 Bottle 1 DRP RIGHT EYE (21:15)
[2024-09-04] MEDS: TOBRAMYCIN IV (23:50)
[2024-09-04] MEDS: WATER IV (23:50)
[2024-09-04] MEDS: DEXTROSE 5% IV (23:50)
[2024-09-05] VITALS (7 sets, daily range): BP systolic 96–125; BP diastolic 62–79; PULSE 58–94; RESP 15–20; TEMP 36.2–36.7; O2SAT 92–95
[2024-09-05] MEDS: Haloperidol Lactate 5 MG/ML Vial 1 MG IM ×2 (02:49→23:30)
--- NOTE | 2024-09-05 02:50 | NURSING ---
pt awake trying to get out of bed. pt becoming agitated despite emotional support. pt yelling and kicking. attempted to give po Haldol and pt refused. obtained an order for Haldol 1 mg IM x 1 .
[2024-09-05 06:57] LABS: Absolute Lymphocyte Count 0.61 X10^3/uL (0.83-4.51); Absolute Neutrophil Count 3.9 X10^3/uL (2.0-7.7); Basophil# 0.04 X10^3/uL; Basophil% 0.7 % (0-1); Eosinophil# 0.24 X10^3/uL; Eosinophils% 4.4 % (0-5); Hematocrit 41.8 % (40-54); Hemoglobin 13.6 g/dL (13.0-16.5); Lymphocyte # 0.61 X10^3/ul (0.83-4.51); Lymphocyte % 11.3 % (19-41); Mean Corp Hgb Conc 32.5 g/dL (32-36); Mean Corpuscular Hgb 27.9 pg (27.0-32.0); Mean Corpuscular Volume 85.8 fL (80-94); Monocyte# 0.58 X10^3/uL; Monocyte% 10.7 % (0-10); NRBC Flagged by Analyzer 0 % (0-5); Neutrophil % 72.2 % (47-70); POSITIVE COUNT YES; POSITIVE MORPHOLOGY YES; RBC Distribution Width CV 20.7 % (11.6-14.6); RBC Distribution Width SD 57.5 fl (35.1-43.9); Red Blood Count 4.87 M/mm3 (4.6-6.2); White Blood Count 5.4 K/mm3 (4.4-11.0)
[2024-09-05 07:16] LABS: Anion Gap 12 (5-15); BUN 24 mg/dL (4-19); BUN/Creat Ratio 31.1 RATIO (10-20); Calcium,Total 8.7 mg/dL (7.6-11.0); Carbon Dioxide 22.1 mmol/L (21.0-32.0); Chloride 106 mmol/L (98-108); Creatinine, Serum 0.77 mg/dL (0.70-1.20); EST Glomerular Filtration Rate 90 (>60); Estimated Creatinine Clearance 75.19 ml/min (50-250); Glucose 92 mg/dL (70-99); Potassium 3.4 mmol/L (3.3-5.1); Sodium Level 140 mmol/L (133-145)
[2024-09-05 07:47] LABS: Differential Indicated SCAN CRITERIA MET
[2024-09-05 07:48] LABS: Platelet Estimate ADEQUATE (ADEQ)
[2024-09-05] MEDS: Ascorbic Acid 500 MG Tablet PO ×2 (07:55→17:56)
[2024-09-05] MEDS: CARBIDOPA/LEVODOPA CR 50/200 Tablet PO ×4 (07:55→20:13)
[2024-09-05] MEDS: Potassium Chloride Oral Tablet 20 MEQ PO ×2 (07:55→17:55)
[2024-09-05] MEDS: Carbidopa/Levodopa 25/100 Tablet PO ×4 (07:55→20:14)
--- NOTE | 2024-09-05 08:29 | CASEMGMT ---
Discharge Plannning Pt must admit by 09/10 or before on current auth. Pennie Peters DC Planning Asst.
--- NOTE | 2024-09-05 09:23 | CASEMGMT ---
LUIS ZAYAS NOTE: Kaitlynn @ [facility] aware pt will be going to SNF @ discharge. Alayna SPICER RN CM
--- NOTE | 2024-09-05 09:41 | CASEMGMT ---
Discharge Planning Updates, including MBS, sent to [place]. Pennie Peters DC Planning Asst.
--- NOTE | 2024-09-05 10:12 | PN_ITS ---
Subjective Subjective Patient seen and examined. His was by his bedside and subsequently his daughter also came. Patient says he feels like he wants to . said patient had some more hallucinations overnight. He has not had any fever or chills, nausea vomiting or any other symptoms. I expressed my concern to and daughter that patient likely has underlying depression also. wondered if it could be due to his urine infection but I explained to her that patient had been treated for the UTI with antibiotics since 08/28/2024 and so was less likely to be that. He has remained hemodynamically stable. Objective Data Objective Data Vital Signs: Vital Signs Temp Pulse Resp BP Pulse Ox O2 Del Method 97.9 F 73 19 H 118/74 93 Room Air 09/05/24 07:37 09/05/24 07:37 09/05/24 07:37 09/05/24 07:37 09/05/24 07:37 09/05/24 07:38 Oxygen Delivery Method Room Air Weight: 179 lb 3.773 oz Body Mass Index (BMI) 28.0 Intake & Output: Intake and Output for Last 24 Hours 09/03/24 09/04/24 09/05/24 23:59 23:59 23:59 Intake Total 336.25 / 486.25 361.5 / 361.5 51.5 / 51.5 Output Total 800 / 1500 1500 / 1800 300 / 300 Balance -463.75 / -1013.75 -1138.5 / -1438.5 -248.5 / -248.5 Lab / Micro Data 09/05/24 06:18 09/05/24 06:18 Labs: Laboratory Results - last 24 hr 09/05/24 06:18: WBC 5.4, RBC 4.87, Hgb 13.6, Hct 41.8, MCV 85.8, MCH 27.9, MCHC 32.5, RDW Std Deviation 57.5 H, RDW Coeff of Manuela 20.7 H, Plt Count , Immature Gran % (Auto) 0.700, Neut % (Auto) 72.2 H, Lymph % (Auto) 11.3 L, Cole % (Auto) 10.7 H, Eos % (Auto) 4.4, Baso % (Auto) 0.7, Absolute Neuts (auto) 3.9, Absolute Lymphs (auto) 0.61 L, Nucleated RBC % 0, Platelet Estimate ADEQUATE, Sodium 140, Potassium 3.4, Chloride 106, Carbon Dioxide 22.1, Anion Gap 12, BUN 24 H, Creatinine 0.77, Estim Creat Clear Calc 75.19, Est GFR (MDRD) Non-Af 90, B UN/Creatinine Ratio 31.1 H, Glucose 92, Calcium 8.7 Micro: Microbiology 08/31/24 16:40 Suprapubic Tap Urine Culture - Final Vancomycin Resist. E. faecium 08/28/24 16:40 Blood Culture (Wb) - Anticubital Left Blood Culture - Final No growth in 5 days. 08/28/24 16:15 Blood Culture (Wb) - Anticubital Left Blood Culture - Final No growth in 5 days. 08/28/24 18:43 Urine, Catheterized Urine Culture - Final Vancomycin Resist. E. faecium Physical Exam Const alert and oriented x3 Constitutional Narrative: flat affect, looks depressed General Appearance: cooperative HEENT normocephalic, head/scalp atraumatic, hearing grossly normal bilaterally, moist oral mucous membranes and oropharynx normal Eyes PERRL, EOMs intact bilaterally and conjunctivae normal Neck no lymphadenopathy, supple and no JVD Lymph Lymphatic: no lymphadenopathy noted and no lymphedema noted Resp normal respiratory effort, normal air movement, no retractions, no use of accessory muscles and clear to auscultation bilaterally Auscultation: Negative for rales, rhonchi or wheezes Cardio regular rate, regular rhythm, S1 normal heart sound, S2 normal heart sound, no murmurs, no rub, no gallops and no clicks GI normal to inspection, nondistended, normoactive bowel sounds, soft to palpation, non-tender and non-distended GI Narrative: suprapubic catheter in situ. Extremity normal to inspection, full ROM, normal capillary refill, no clubbing, cyanosis or edema and no calf tenderness Extremity Narrative: Pedal and radial pulses are 2+ General Extremity: no tenderness to palpation of joints or extremities Skin Skin Narrative: General Skin Exam: no breakdown Neuro oriented x3, CN's II-XII intact bilaterally, moves all extremities, no focal motor deficits and no sensory deficits noted Neuro Narrative: flat affect, bradykinesia, looks depressed Sensorium / Orientation: awake and oriented to time Motor Exam: general weakness Psych Mood & Affect: flat affect Assessment & Plan Assessment/Plan (1) Multiple drug resistant organism (MDRO) culture positive: (2) Chronic suprapubic catheter: (3) Acute alteration in mental status: (4) History of Parkinson disease: PLAN: Plan #UTI in the setting of chronic suprapubic catheter due to multi drug resistant Pseudomonas. * was originally on antibiotics and this was discontinued on 08/30/2024. * urine cultures growing VRE and multi drug resistant Pseudomonas. * on IV daptomycin and tobramycin. * ID on board; recommends to have antibiotics through today. * #Recurrent hallucinations * thought to be due to Parkinson's disease and UTI * on haldol prn * follow up with neurology on outpatient basis. * #Probable depression * Patient states he wants to . He denies any suicidal or homicidal ideations. Patient has a very flat affect and looks very depressed. He is also been having hallucinations which I think is likely related to his Parkinson's disease. The depression is also not uncommon in patients with advanced Parkinson's. * Will start patient on Remeron since he is also had a limited appetite. If severe depression persist we will consider consulting mental health crisis team. * #Hypokalemia: resolved. #BPH with obstruction * has suprapubic catheter in situ. Has had recurrent UTIs. * on flomax. * suprapubic catheter not changed during this admission due to urology not being available. To follow up with urology on outpatient basis. * #Mild hyponatremia: resolved. Na is 140 today. #Dysphagia: * Modified diet per speech therapy. * Barium swallow done showed evidence of mild to moderate oropharyngeal dysphagia with aspiration * Per speech therapy to be on minced and moist texture for his diet with thin liquids and medications crushed in apple straw. To have small bites and to have aspiration precautions. * #History of prostate cancer : s/p radiation and radiation cystitis. #Benign essential hypertension: on torsemide and cardizem. #History of Parkinson's disease * on carbidopa levodopa and mirapex. * pT/OT on board * #History of dementia: on memantine #History of afib: on cardizem. Not anticoagulated due to fall risk. DVT prophylaxis: on lovenox Disposition: Will DC to SNF once medically stable. Charges/Coding Visit Charges Inpatient E&M: 38818 Subs Hosp L2
[2024-09-05] MEDS: DULoxetine Hcl 60 MG Capsule PO (10:22)
[2024-09-05] MEDS: Tamsulosin HCl 0.4 MG Capsule PO (10:22)
[2024-09-05] MEDS: dilTIAZem CD 120 MG Capsule PO (10:22)
[2024-09-05] MEDS: Lactobacillis Acidophilus 1 CAP PO (10:22)
[2024-09-05] MEDS: Dorzolamide HCL/Timolol 10 ml Bottle 2 DRP EACH EYE ×2 (10:22→20:59)
[2024-09-05] MEDS: DAROLUTAMIDE 300 MG 600 MG PO (10:23)
[2024-09-05] MEDS: Methenamine Hippurate 1 GM Tablet PO ×2 (10:23→20:14)
[2024-09-05] MEDS: Enoxaparin 40 MG/0.4 ML Syringe SC (10:23)
[2024-09-05] MEDS: Memantine Hydrochloride 10 MG Tablet PO ×2 (10:23→20:14)
[2024-09-05] MEDS: Furosemide 40 MG Tablet PO (10:23)
[2024-09-05] MEDS: Pramipexole Di-HCl 1 MG Tablet PO ×4 (10:23→20:14)
[2024-09-05] MEDS: Cyanocobalamin 500 MCG Tablet 1000 MCG PO (10:24)
[2024-09-05] MEDS: prednisoLONE eye drops (5 mL) 1 DROP OPTH.BTL 1 DRP LEFT EYE ×2 (10:24→20:13)
[2024-09-05] MEDS: DAPTOmycin 500mg/10ml Vial 500 MG in 0.9% Normal Saline (50mL Bag) 50 ML 100 MG IV (14:03)
[2024-09-05] MEDS: Latanoprost 0.005% 1 Bottle 1 DRP RIGHT EYE (20:13)
[2024-09-05] MEDS: Mirtazapine 15 MG Tablet PO (20:14)
[2024-09-05] MEDS: TOBRAMYCIN IV (22:17)
[2024-09-05] MEDS: WATER IV (22:17)
[2024-09-05] MEDS: DEXTROSE 5% IV (22:17)
[2024-09-06 00:17] LABS: Tobramycin Conventional Peak 2.4 ug/mL (4.00-8.00)
[2024-09-06 06:05] VITALS: BP 111/77; PULSE 105; RESP 16; TEMP 37; O2SAT 94
[2024-09-06 06:27] LABS: Absolute Lymphocyte Count 0.86 X10^3/uL (0.83-4.51); Absolute Neutrophil Count 3.5 X10^3/uL (2.0-7.7); Basophil# 0.02 X10^3/uL; Basophil% 0.4 % (0-1); Eosinophil# 0.15 X10^3/uL; Eosinophils% 2.9 % (0-5); Hematocrit 41.3 % (40-54); Hemoglobin 13.1 g/dL (13.0-16.5); Lymphocyte # 0.86 X10^3/ul (0.83-4.51); Lymphocyte % 16.8 % (19-41); Mean Corp Hgb Conc 31.7 g/dL (32-36); Mean Corpuscular Hgb 25.9 pg (27.0-32.0); Mean Corpuscular Volume 81.6 fL (80-94); Monocyte# 0.52 X10^3/uL; Monocyte% 10.2 % (0-10); NRBC Flagged by Analyzer 0 % (0-5); Neutrophil # 3.51 X10^3/uL (2.7-7.7); Neutrophil % 68.7 % (47-70); Platelet Count 213 K/mm3 (150-450); RBC Distribution Width CV 19.3 % (11.6-14.6); RBC Distribution Width SD 56.9 fl (35.1-43.9); Red Blood Count 5.06 M/mm3 (4.6-6.2); White Blood Count 5.1 K/mm3 (4.4-11.0)
[2024-09-06 06:58] LABS: Anion Gap 13 (5-15); BUN 28 mg/dL (4-19); BUN/Creat Ratio 28.2 RATIO (10-20); Carbon Dioxide 24.6 mmol/L (21.0-32.0); Chloride 104 mmol/L (98-108); Creatinine, Serum 0.97 mg/dL (0.70-1.20); EST Glomerular Filtration Rate 79 (>60); Estimated Creatinine Clearance 62.01 ml/min (50-250); Glucose 91 mg/dL (70-99); Potassium 3.9 mmol/L (3.3-5.1); Sodium Level 142 mmol/L (133-145)
[2024-09-06] MEDS: CARBIDOPA/LEVODOPA CR 50/200 Tablet PO ×3 (07:46→16:16)
[2024-09-06] MEDS: Carbidopa/Levodopa 25/100 Tablet PO ×3 (07:46→16:16)
[2024-09-06 09:02] VITALS: BP 124/88; PULSE 95; RESP 18; TEMP 37.1; O2SAT 94
[2024-09-06] MEDS: Dorzolamide HCL/Timolol 10 ml Bottle 2 DRP EACH EYE ×2 (10:05→22:15)
[2024-09-06] MEDS: Enoxaparin 40 MG/0.4 ML Syringe SC (10:05)
[2024-09-06] MEDS: prednisoLONE eye drops (5 mL) 1 DROP OPTH.BTL 1 DRP LEFT EYE ×2 (10:06→22:27)
[2024-09-06] MEDS: DAROLUTAMIDE 300 MG 600 MG PO (10:07)
[2024-09-06] MEDS: Potassium Chloride Oral Tablet 20 MEQ PO ×2 (10:07→16:16)
[2024-09-06] MEDS: dilTIAZem CD 120 MG Capsule PO (10:08)
[2024-09-06] MEDS: Tamsulosin HCl 0.4 MG Capsule PO (10:09)
[2024-09-06] MEDS: Pramipexole Di-HCl 1 MG Tablet PO ×3 (10:09→17:36)
[2024-09-06] MEDS: DULoxetine Hcl 60 MG Capsule PO (10:09)
[2024-09-06] MEDS: Lactobacillis Acidophilus 1 CAP PO (10:09)
[2024-09-06] MEDS: Ascorbic Acid 500 MG Tablet PO ×2 (10:09→16:16)
[2024-09-06] MEDS: Furosemide 40 MG Tablet PO (10:10)
[2024-09-06] MEDS: Cyanocobalamin 500 MCG Tablet 1000 MCG PO (10:10)
[2024-09-06] MEDS: Memantine Hydrochloride 10 MG Tablet PO ×2 (10:10→22:42)
--- NOTE | 2024-09-06 10:28 | PCM.PN.ID ---
Physical Exam Narrative Still hallucinating, no abd pain, no fever Const no apparent distress Orientation / Consciousness: confused Resp normal air movement and clear to auscultation bilaterally Cardio regular rate and regular rhythm GI soft to palpation, non-tender and non-distended Skin no rashes or lesions noted ID ID: Route of nutrition/ use of supplements: [] Nutritional Intake: [] IV Site: [] [place] Catheter: [] Assessment & Plan Assessment/Plan (1) Multiple drug resistant organism (MDRO) culture positive: (2) Chronic suprapubic catheter: (3) Acute alteration in mental status: PLAN: Ucx now with small amount VRE. Recent ucx 08/23/24 with MDR PsA. Mental status not much different today. Will stop tobra, likely can be done with dapto today or tomorrow. Given lack of overall improvement and urine results, lower suspicion at this point that uncontrolled uti is the cause of his worsened mental status. Cont methenamine and vit C for uti prevention. ID followup prn Will follow (4) History of Parkinson disease:
--- NOTE | 2024-09-06 10:54 | PCM.PN.HOSP ---
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 Patient was laying back in bed and in no acute distress. He did not make eye contact for me during our encounter but answered questions with short appropriate responses. Denied any acute pain or discomfort this morning. Patient notably did receive a dose of Haldol overnight for agitation with no improvement. Daughter notes this morning that she and family understand that his urinary tract infection has improved, but with prior UTIs his confusion improved with antibiotics and that has not been the case this time. Unfortunately several medications have been tried for his agitation while here without much improvement. Given these things, family was agreeable to hospice consult being placed to discuss goals of care further. Objective Data Objective Data Vital Signs: Vital Signs Temp Pulse Resp BP Pulse Ox O2 Del Method 98.7 F 95 18 124/88 H 94 Room Air 09/06/24 09:02 09/06/24 09:02 09/06/24 09:02 09/06/24 09:02 09/06/24 09:02 09/06/24 09:19 Oxygen Delivery Method Room Air Weight: 81.3 kg Body Mass Index (BMI) 28.0 Intake & Output: Intake and Output for Last 24 Hours 09/04/24 09/05/24 09/06/24 23:59 23:59 23:59 Intake Total 361.5 / 361.5 1163.0 / 1363.0 200 / 200 Output Total 1500 / 1800 750 / 950 300 / 300 Balance -1138.5 / -1438.5 413.0 / 413.0 -100 / -100 Lab / Micro Data 09/06/24 05:55 09/06/24 05:55 Labs: Laboratory Results - last 24 hr 09/05/24 23:45: Tobramycin Peak 2.4 L 09/06/24 05:55: WBC 5.1, RBC 5.06, Hgb 13.1, Hct 41.3, MCV 81.6, MCH 25.9 L, MCHC 31.7 L, RDW Std Deviation 56.9 H, RDW Coeff of Manuela 19.3 H, Plt Count 213, MPV TNP, Immature Gran % (Auto) 1.000 H, Neut % (Auto) 68.7, Lymph % (Auto) 16.8 L, [place] % (Auto) 10.2 H, Eos % (Auto) 2.9, Baso % (Auto) 0.4, Absolute Neuts (auto) 3.5, Absolute Lymphs (auto) 0.86, Nucleated RBC % 0, Sodium 142, Potassium 3.9, Chloride 104, Carbon Dioxide 24.6, Anion Gap 13, BUN 28 H, Creatinine 0.97, Estim Creat Clear Calc 62.01, Est GFR (MDRD) Non-Af 79, BUN/Creatinine Ratio 28.2 H, Glucose 91, Calcium 9.0 Micro: Microbiology 08/31/24 16:40 Suprapubic Tap Urine Culture - Final Vancomycin Resist. E. faecium 08/28/24 16:40 Blood Culture (Wb) - Anticubital Left Blood Culture - Final No growth in 5 days. 08/28/24 16:15 Blood Culture (Wb) - Anticubital Left Blood Culture - Final No growth in 5 days. 08/28/24 18:43 Urine, Catheterized Urine Culture - Final Vancomycin Resist. E. faecium Physical Exam Const alert, no apparent distress and average body habitus Constitutional Narrative: Elderly male, alert and laying back in bed, not making appropriate eye contact but answering questions with short appropriate responses this morning, otherwise in no acute distress. General Appearance: cooperative and comfortable HEENT normocephalic, head/scalp atraumatic, hearing grossly normal bilaterally and nasal mucous membranes and turbinates normal Eyes PERRL, EOMs intact bilaterally and conjunctivae normal Neck full ROM Chest inspection of chest normal Resp normal respiratory effort, normal air movement, no use of accessory muscles and clear to auscultation bilaterally Cardio regular rate, regular rhythm, no murmurs and peripheral pulses 2+ throughout GI normal to inspection, nondistended, normoactive bowel sounds, soft to palpation, non-tender and non-distended Back/Spine normal ROM Extremity normal to inspection, full ROM and no pedal edema Skin no rashes or lesions noted Neuro moves all extremities and no focal motor deficits Motor Exam: strength 5/5 throughout Assessment & Plan Assessment/Plan (1) Acute alteration in mental status: (2) Visual hallucinations: PLAN: Plan Patient is an 79-year-old male who presented to [facility] ED on 08/28/2024 with altered mentation. 1. Toxic/metabolic encephalopathy with hallucinations in setting of Parkinson's disease with dementia ? Presented with confusion and hallucinations suspected to be secondary to UTI, as patient has had similar presentations in the past that improved with treatment of UTI. However, has continued to have waxing and waning confusion with hallucinations during hospitalization despite treatment of UTI. Was trialed on low-dose Risperdal but this appeared to make his Parkinson symptoms worse so it was discontinued. Has been on low-dose Haldol as needed since then with minimal improvement in symptoms. Have concern that patient could have some degree of Lewy body dementia. Current plan is for discharge to SNF once medically ready and patient has bed ready there, but he will need to be 24 hours removed from last low-dose which will be tomorrow morning. Given his ongoing symptoms, family requested hospice consult and that was placed this afternoon. Will follow up hospice conversation and adjust discharge plans accordingly. Continue home Sinemet and Mirapex. 2. Multidrug-resistant Pseudomonas complicated UTI secondary to chronic suprapubic catheter ? ID following. Urine culture grew MDR Pseudomonas along with a small amount of VRE. Was treated with tobramycin and daptomycin; per ID, tobramycin stopped on 09/06 and will likely be done with daptomycin on 09/07. Given lack of improvement overall, ID suspects that uncontrolled UTI is not the cause of his worsened mental status. Okay to continue methenamine and vitamin C for UTI prevention. 3. BPH with obstruction ? Chronic urinary retention with suprapubic catheter placed about 1 year ago. Unable to change catheter while here due to no urology availability. Continue home Flomax. Chronic medical conditions: ? Hypertension: Continue home diltiazem and torsemide. ? Glaucoma: Continue home eyedrops. ? Paroxysmal A-fib: Stable in normal sinus rhythm since admit. Continue home diltiazem. Not anticoagulated due to fall risk. ? History of VTE: Remote. Not anticoagulated at this time. ? Depression: Continue home duloxetine. DVT prophylaxis: Lovenox CODE STATUS: DNR CCA, DNI Expected disposition: TBD Total clinical time spent by myself addressing the patient's medical issues, reviewing all the data, and collaborating with patient's care team: 35 minutes. Charges/Coding Visit Charges Inpatient E&M: 58060 Subs Hosp L2
[2024-09-06] MEDS: Acetaminophen 325 MG Tablet 650 MG PO (11:21)
[2024-09-06] MEDS: Methenamine Hippurate 1 GM Tablet PO (11:21)
[2024-09-06 11:54] VITALS: BP 124/84; PULSE 92; RESP 18; TEMP 36.2; O2SAT 96
--- NOTE | 2024-09-06 12:53 | CASEMGMT ---
Addendum entered by Kelli August 09/06/24 16:17: [facility], met with pt and pt family and provided information on services. [facility] reports that family knows to call hospice directly for any additional needs or to sign for services. SW remains available to follow. Plan: [facility], skilled level of care GABBIE Kruger Addendum entered by Kelli August 09/06/24 14:18: SW received fax confirmation of hospice referral. SW called to verify receipt. Hospice reports that they will call pt family shortly. SW remains available to follow. GABBIE Kruger Addendum entered by Kelli August 09/06/24 14:13: Addendum: Pt family reports that SW called [facility] should read as follows: Pt family reports [facility] would be provider of choice so that a consultation can be had while at [facility] prior to discharge. followed by the sentence that SW called [facility]...... GABBIE Kruger Original Note: Social Work- CARMEN met with pt and pt dtr to discuss plans for discharge tomorrow. Pt dtr had multiple questions regarding [facility]. CARMEN collaborated with DCA and facility to answer questions. Pt will be d/c to a semi-private room, but can be placed on the wait list for a private room. Pt dr will be Dr Knox. Pt will be taken to the dining room for lunch and dinner; an ANGIOGRAPHY TECHNOLOGIST will feed pt breakfast. CARMEN followed up to provide answers to pt, pt , and family. Pt family inquired into how facility will handle agitated behavior, if they are aware of his needs. CARMEN provided education that we have sent progress notes and communications regarding pt stay and pt needs to [facility] and the facility is aware of his current needs. Pt family inquired into hospice services. Pt family would like information to determine if pt is appropriate for hospice and what hospice would be able to help with. CARMEN provided information on skilled stay vs. hospice. Pt family reports that SW called [facility] who reports that they us [facility], [facility], [facility], and [facility]. Pt family agreeable to [facility]. Pt family understanding that pt would not be able to receive skilled services under hospice and room and board would not be covered under insurance if pt family elects to sign with hospice. SW coordinated with physician. SW placed referral for informational consult with [facility]. SW remains available to follow. Plan: [facility]; skilled level of care GABBIE Kruger
[2024-09-06] MEDS: DAPTOmycin 500mg/10ml Vial 500 MG in 0.9% Normal Saline (50mL Bag) 50 ML 100 MG IV (13:41)
[2024-09-06 14:59] VITALS: BP 109/77; PULSE 98; RESP 18; TEMP 36.2; O2SAT 96
[2024-09-06 20:00] VITALS: BP 115/65; PULSE 65; RESP 16; TEMP 36.3; O2SAT 93
[2024-09-06 21:00] VITALS: O2SAT 95
[2024-09-06] MEDS: Latanoprost 0.005% 1 Bottle 1 DRP RIGHT EYE (22:27)
[2024-09-07 02:50] VITALS: BP 105/65; PULSE 86; RESP 16; TEMP 36.2; O2SAT 95
[2024-09-07 03:00] VITALS: O2SAT 95
[2024-09-07] MEDS: CARBIDOPA/LEVODOPA CR 50/200 Tablet PO ×4 (07:00→20:58)
[2024-09-07] MEDS: Carbidopa/Levodopa 25/100 Tablet PO ×4 (07:02→20:58)
[2024-09-07 07:06] LABS: Absolute Lymphocyte Count 0.59 X10^3/uL (0.83-4.51); Absolute Neutrophil Count 3.1 X10^3/uL (2.0-7.7); Basophil# 0.02 X10^3/uL; Basophil% 0.5 % (0-1); Eosinophil# 0.13 X10^3/uL; Hematocrit 43.8 % (40-54); Lymphocyte # 0.59 X10^3/ul (0.83-4.51); Lymphocyte % 13.6 % (19-41); Mean Corpuscular Hgb 26.2 pg (27.0-32.0); Mean Corpuscular Volume 81.9 fL (80-94); Monocyte# 0.43 X10^3/uL; Monocyte% 9.9 % (0-10); NRBC Flagged by Analyzer 0 % (0-5); Neutrophil # 3.13 X10^3/uL (2.7-7.7); Neutrophil % 72.1 % (47-70); POSITIVE DIFFERENTIAL YES; Platelet Count 224 K/mm3 (150-450); RBC Distribution Width CV 19.3 % (11.6-14.6); RBC Distribution Width SD 56.3 fl (35.1-43.9); Red Blood Count 5.35 M/mm3 (4.6-6.2); White Blood Count 4.3 K/mm3 (4.4-11.0)
[2024-09-07 08:10] LABS: Anion Gap 15 (5-15); BUN 28 mg/dL (4-19); BUN/Creat Ratio 27.9 RATIO (10-20); Calcium,Total 8.9 mg/dL (7.6-11.0); Chloride 109 mmol/L (98-108); Creatinine, Serum 1.01 mg/dL (0.70-1.20); EST Glomerular Filtration Rate 75 (>60); Estimated Creatinine Clearance 59.55 ml/min (50-250); Glucose 102 mg/dL (70-99); Potassium 3.4 mmol/L (3.3-5.1); Sodium Level 148 mmol/L (133-145)
--- NOTE | 2024-09-07 10:30 | PCM.PN.ID ---
Physical Exam Narrative Confused, lethargic. No fever Const Orientation / Consciousness: confused and lethargic Resp normal air movement and clear to auscultation bilaterally Cardio regular rate and regular rhythm GI soft to palpation, non-tender and non-distended Skin no rashes or lesions noted ID ID: Route of nutrition/ use of supplements: [] Nutritional Intake: [] IV Site: [] Somers Catheter: [] Assessment & Plan Assessment/Plan (1) Multiple drug resistant organism (MDRO) culture positive: (2) Chronic suprapubic catheter: (3) Acute alteration in mental status: PLAN: Ucx now with small amount VRE. Recent ucx 08/23/24 with MDR PsA. Mental status not much different today. Will stop dapto today. Given lack of overall improvement and urine results, lower suspicion at this point that uncontrolled uti is the cause of his worsened mental status. Cont methenamine and vit C for uti prevention. ID followup prn Will follow prn (4) History of Parkinson disease:
[2024-09-07 10:43] VITALS: BP 121/76; PULSE 107; RESP 18; TEMP 36.9; O2SAT 98
[2024-09-07] MEDS: Pramipexole Di-HCl 1 MG Tablet PO ×3 (10:49→20:58)
[2024-09-07] MEDS: Lactobacillis Acidophilus 1 CAP PO (10:50)
[2024-09-07] MEDS: DULoxetine Hcl 60 MG Capsule PO (10:50)
[2024-09-07] MEDS: Tamsulosin HCl 0.4 MG Capsule PO (10:50)
[2024-09-07] MEDS: dilTIAZem CD 120 MG Capsule PO (10:50)
[2024-09-07] MEDS: Furosemide 40 MG Tablet PO (10:51)
[2024-09-07] MEDS: Ascorbic Acid 500 MG Tablet PO ×2 (10:51→16:33)
[2024-09-07] MEDS: Cyanocobalamin 500 MCG Tablet 1000 MCG PO (10:51)
[2024-09-07] MEDS: Dorzolamide HCL/Timolol 10 ml Bottle 2 DRP EACH EYE (10:52)
[2024-09-07] MEDS: Enoxaparin 40 MG/0.4 ML Syringe SC (10:53)
[2024-09-07] MEDS: Potassium Chloride Oral Tablet 20 MEQ PO ×2 (10:53→16:34)
[2024-09-07] MEDS: prednisoLONE eye drops (5 mL) 1 DROP OPTH.BTL 1 DRP LEFT EYE (10:54)
[2024-09-07] MEDS: DAROLUTAMIDE 300 MG 600 MG PO (10:54)
[2024-09-07] MEDS: Memantine Hydrochloride 10 MG Tablet PO ×2 (10:55→20:59)
[2024-09-07] MEDS: Methenamine Hippurate 1 GM Tablet PO ×2 (10:56→20:58)
--- NOTE | 2024-09-07 12:11 | TREXTCAR_ITS ---
Diet Diet Order/Speech Therapy: 09/04/24 16:24 Diet: Regular - General Food consistency:: Mechanical (Minced/Moist) Liquid Consistency:: Regular/Thin Diet Comments: TOTAL FEED, Liquids by cup/ straw one sip at a time. Routine Orders/Code Status Enema Type: Fleetz Enema Frequency: Daily PRN Suppository Type: Dulcolax 10mg Suppository Frequency: Daily PRN DC O2, CPAP, BIPAP needs Home O2 Discharge instructions: No Therapies Weight Bearing: Weight bearing as tolerated Physical Therapy: Eval and Treat Occupational Therapy: Eval and Treat Problem/Diagnosis (1) Multiple drug resistant organism (MDRO) culture positive: Status: Acute Code(s): Z16.24 - Resistance to multiple antibiotics (2) Chronic suprapubic catheter: Status: Chronic Code(s): Z93.59 - Other cystostomy status (3) Acute alteration in mental status: Status: Acute Code(s): R41.82 - Altered mental status, unspecified (4) History of Parkinson disease: Status: Acute Code(s): Z86.69 - Personal history of other diseases of the nervous system and sense organs Plan #UTI in the setting of chronic suprapubic catheter due to multi drug resistant Pseudomonas. * was originally on antibiotics and this was discontinued on 08/30/2024. * urine cultures growing VRE and multi drug resistant Pseudomonas. * on IV daptomycin and tobramycin. * ID on board; recommends to have antibiotics through today. * #Recurrent hallucinations * thought to be due to Parkinson's disease and UTI * on haldol prn * follow up with neurology on outpatient basis. * #Probable depression * Patient states he wants to . He denies any suicidal or homicidal ideations. Patient has a very flat affect and looks very depressed. He is also been having hallucinations which I think is likely related to his Parkinson's disease. The depression is also not uncommon in patients with advanced Parkinson's. * Will start patient on Remeron since he is also had a limited appetite. If severe depression persist we will consider consulting mental health crisis team. * #Hypokalemia: resolved. #BPH with obstruction * has suprapubic catheter in situ. Has had recurrent UTIs. * on flomax. * suprapubic catheter not changed during this admission due to urology not being available. To follow up with urology on outpatient basis. * #Mild hyponatremia: resolved. Na is 140 today. #Dysphagia: * Modified diet per speech therapy. * Barium swallow done showed evidence of mild to moderate oropharyngeal dysphagia with aspiration * Per speech therapy to be on minced and moist texture for his diet with thin liquids and medications crushed in apple straw. To have small bites and to have aspiration precautions. * #History of prostate cancer : s/p radiation and radiation cystitis. #Benign essential hypertension: on torsemide and cardizem. #History of Parkinson's disease * on carbidopa levodopa and mirapex. * pT/OT on board * #History of dementia: on memantine #History of afib: on cardizem. Not anticoagulated due to fall risk. DVT prophylaxis: on lovenox Disposition: Will DC to SNF once medically stable. Allergies/Procedures Done in Hospital Allergies lidocaine Allergy (Verified 08/28/24 15:00) Angioedema peppermint Allergy (Verified 08/28/24 15:00) Angioedema phenylephrine Allergy (Verified 08/28/24 15:00) Angioedema doxycycline Adverse Reaction (Intermediate, Verified 08/28/24 15:00) [facility]BURN Procedures: None Type of Care/Length of Stay Estimated LOS: Convalescent Care Less Than 30 days Type of Care Needed: Skilled Rehab Potential: Poor Prognosis: Poor Additional Orders/Day of Discharge Day of Discharge: 09/04/24 Dietary and Speech Recommendations Dietitian Recommendations/Changes: Adjust to liberal regular diet per PROVIDER RELATIONS MANAGER consistency/texture recommendations. Will monitor weight trends, as available. Discharge Plan Admission Admit Date/Time: 08/29/24 13:39 Primary Reason for Your Visit: Multi drug resistant UTI Attending Provider: Cassi Yang Primary Care Provider: Masoud Rosa Consulting Providers: Raoul Major; Tom Cervantes; Nila Swenson; Cassi Yang; Raoul Guo; Ramandeep Smyth; Luna Kurtz; Shahida Snyder; Karen Antoine NP; Ruthann Clement; Rachid Regalado Instructions Patient Instructions: ED Urinary Tract Infections in Men Discharge Orders/Prescriptions Prescriptions: Continued carbidopa-levodopa 50-200 mg tablet extended release 1 tablet PO 4X/DAY Rx Instructions: TAKE 1 IN THE MORNING, 1 AT LUNCH, 1 IN THE EVENING, AND 1 AT BEDTIME dorzolamide-timolol 22.3-6.8 mg/mL drops 1 - 2 drp OPHTHALMIC BID duloxetine 60 mg capsule,delayed release(DR/EC) 60 mg PO DAILY Nubeqa 300 mg tablet 600 mg PO DAILY Patient Comments: PT AWARE THEY HAVE TO BRING THIS MED IN. latanoprost 0.005 % drops 1 drp RIGHT EYE QHS memantine 10 mg tablet 10 mg PO BID (DME) Space Chamber Spacer See Rx Instructions .Route Qty: 1 0RF Rx Instructions: As directed prednisolone acetate 1 % drops,suspension 1 drp ophthalmic (eye) Q12H Rx Instructions: USE IN LEFT EYE ascorbic acid (vitamin C) 500 mg Tablet 500 mg PO BIDCM 90 Days Qty: 180 1RF Rx Instructions: for intermediate uti prevention methenamine hippurate 1 gram Tablet 1 g PO BID 90 Days Qty: 180 1RF Rx Instructions: for intermediate uti prevention potassium chloride 20 mEq Tablet,Er Particles/Crystals 20 meq PO BIDCM Qty: 60 0RF carbidopa-levodopa 25-100 mg tablet 2 tab PO 4X/DAY Patient Comments: TAKE WITH THE 50/200 TABS pramipexole 1 mg Tablet 1 mg PO 4X/DAY torsemide 20 mg tablet 20 mg PO DAILY tamsulosin 0.4 mg capsule 0.4 mg PO DAILY mecobalamin (vitamin B12) 1,000 mcg tablet,chewable 1,000 mcg PO DAILY acetaminophen 500 mg Tablet 1,000 mg PO Q6H PRN (Reason: Pain 1-10) Lactobacillus acidophilus 25 million cell capsule 50,000,000 cell PO DAILY diltiazem HCl 120 mg capsule,extended release 24 hr See Rx Instructions .ROUTE .COMPLEX Qty: 90 3RF Dose Instruction: take 1 capsule by mouth once daily Rx Instructions: take 1 capsule by mouth once daily Referrals / Follow Up: Masoud Rosa MD [Primary Care Provider] - Within 1 Week Disposition Disposition (needs filled in before D/C Order can be placed): Alf Facility
--- NOTE | 2024-09-07 12:13 | PCM.DC.SUM ---
Providers Date of Admission: 08/29/24 Date of Discharge: 09/07/24 Primary Care Physician: Dr. Masoud Rosa MD Consultations 08/29/24 08:12 Consult: Infectious Disease Routine Consulting Provider: Tom Cervantes Reason for Consult: MDR PsAg EMERGENT Consult: No Notified: Yes Date Notified: 08/29/24 Time Notified: 08:13 Method of Notification: Text 09/06/24 13:17 Consult: Hospice / Palliative Care Routine Consulting Provider: [facility] Reason for Consult: Family request due to pt overall decline EMERGENT Consult: No Notified: Yes Date Notified: 09/06/24 Time Notified: 13:17 Method of Notification: Text Reason For Visit: MDR UTI & WORSENING HALLUCINATIONS Diagnosis Discharge Diagnosis (1) Multiple drug resistant organism (MDRO) culture positive: Status: Acute Code(s): Z16.24 - Resistance to multiple antibiotics (2) Chronic suprapubic catheter: Status: Chronic Code(s): Z93.59 - Other cystostomy status (3) Acute alteration in mental status: Status: Acute Code(s): R41.82 - Altered mental status, unspecified (4) History of Parkinson disease: Status: Acute Code(s): Z86.69 - Personal history of other diseases of the nervous system and sense organs Plan #UTI in the setting of chronic suprapubic catheter due to multi drug resistant Pseudomonas. was originally on antibiotics and this was discontinued on 08/30/2024. urine cultures growing VRE and multi drug resistant Pseudomonas. on IV daptomycin and tobramycin. ID on board; recommends to have antibiotics through today. #Recurrent hallucinations thought to be due to Parkinson's disease and UTI on haldol prn follow up with neurology on outpatient basis. #Probable depression Patient states he wants to . He denies any suicidal or homicidal ideations. Patient has a very flat affect and looks very depressed. He is also been having hallucinations which I think is likely related to his Parkinson's disease. The depression is also not uncommon in patients with advanced Parkinson's. Will start patient on Remeron since he is also had a limited appetite. If severe depression persist we will consider consulting mental health crisis team. #Hypokalemia: resolved. 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 Has had recurrent UTIs. on flomax. suprapubic catheter not changed during this admission due to urology not being available. To follow up with urology on outpatient basis. #Mild hyponatremia: resolved. Na is 140 today. #Dysphagia: Modified diet per speech therapy. Barium swallow done showed evidence of mild to moderate oropharyngeal dysphagia with aspiration Per speech therapy to be on minced and moist texture for his diet with thin liquids and medications crushed in apple straw. To have small bites and to have aspiration precautions. #History of prostate cancer : s/p radiation and radiation cystitis. #Benign essential hypertension: on torsemide and cardizem. #History of Parkinson's disease on carbidopa levodopa and mirapex. pT/OT on board #History of dementia: on memantine #History of afib: on cardizem. Not anticoagulated due to fall risk. DVT prophylaxis: on lovenox Disposition: Will DC to SNF once medically stable. Medications at Discharge Home Medications carbidopa ER 50 mg-levodopa 200 mg tablet,extended release 1 tablet PO 4X/DAY parkinsons 09/25/20 dorzolamide 22.3 mg-timolol 6.8 mg/mL eye drops 1 - 2 drp ophthalmic (eye) BID glaucoma 09/25/20 latanoprost 0.005 % eye drops 1 drp RIGHT EYE QHS eye he 09/10/21 memantine 10 mg tablet 10 mg PO BID MEMORY 09/10/21 inhalational spacing device (Space Chamber) #1 ea 08/08/23 potassium chloride 20 mEq tablet,extended release(part/cryst) 20 meq PO BIDCM Supplement #60 tabs 11/17/23 diltiazem HCl 120 mg capsule,24 hr,extended release See Rx Instructions .Route .COMPLEX heart #90 CAPSULES 02/01/24 darolutamide 300 mg tablet (Nubeqa) 600 mg PO DAILY Prostate 02/04/24 duloxetine 60 mg capsule,delayed release 60 mg PO DAILY Mood 02/04/24 prednisolone acetate 1 % eye drops,suspension 1 drp ophthalmic (eye) Q12H Eye drops 05/29/24 ascorbic acid (vitamin C) 500 mg tablet 500 mg PO BIDCM 90 days #180 tabs 06/18/24 methenamine hippurate 1 gram tablet 1 g PO BID 90 days #180 tabs 06/18/24 Lactobacillus acidophilus 25 million cell capsule 50,000,000 cell PO DAILY gut health 08/28/24 acetaminophen 500 mg tablet 1,000 mg PO Q6H PRN Pain 1-10 08/28/24 carbidopa 25 mg-levodopa 100 mg tablet 2 tab PO 4X/DAY parkinson 08/28/24 mecobalamin (vitamin B12) 1,000 mcg chewable tablet 1,000 mcg PO DAILY supplement 08/28/24 pramipexole 1 mg tablet 1 mg PO 4X/DAY 08/28/24 tamsulosin 0.4 mg capsule 0.4 mg PO DAILY 08/28/24 torsemide 20 mg tablet 20 mg PO DAILY 08/28/24 Hospital Course Operations None Procedures None Summary of Care Provided Minutes Spent on Discharge: 45 Hospital Course: Patient is an 79-year-old male with an extensive past medical history as outlined was admitted through the ED on 08/28/2024 with complaint of hallucination and concerns for UTI. He had assisted fatigue and generalized weakness. He denied any fever or chills, nausea, vomiting, abdominal pain, chest pain or shortness of breath or any other symptoms. On admission he had a normal white cell count and urinalysis during this admission was unremarkable. However he had had a recent urine culture positive for MDR Pseudomonas. He was admitted to be managed for recently diagnosed UTI due to MDR Pseudomonas which was sensitive to tobramycin. It was thought that his hallucinations may be due to the UTI to according to his family. Infectious disease was consulted. Patient was placed on IV tobramycin and ceftriaxone. He had a suprapubic catheter in situ and efforts were made to changes but there was no urologist available so patient was to follow-up with his urologist on outpatient basis for this to be changed. Hospital course was complicated by recurrent hallucinations. Family was counseled that his recurrent hallucinations were likely due to his worsening Parkinson's disease. Patient had a protracted hospital course on account of these recurrent episodes of hallucination. He did complete a course of antibiotics and he was also trialed on low-dose Risperdal but this seemed to make his Parkinson symptoms worse so was discontinued. Patient also had complaints of wanting to and it did seem like patient was severely depressed. He was started on Remeron to help with his mood as well as his diet. Family was however concerned that this was also causing the hallucinations so this was discontinued. Family was finally amenable to hospice consult. Hospice did evaluate patient but family was not interested in him signing up with hospice services. Patient was therefore discharged to [facility] facility on 09/07/2024. He is to follow-up with his primary care doctor within 1 to 2 weeks. Patient seen and examined prior to discharge. He remains quite frail and weak. Review of systems is otherwise negative. Labs and vitals reviewed. Home meds reviewed and reconciled. Physical Exam Narrative Const alert and oriented x3 Constitutional Narrative: flat affect, looks depressed General Appearance:lethargic HEENT normocephalic, head/scalp atraumatic, hearing grossly normal bilaterally, moist oral mucous membranes and oropharynx normal Eyes PERRL, EOMs intact bilaterally and conjunctivae normal Neck no lymphadenopathy, supple and no JVD Lymph Lymphatic: no lymphadenopathy noted and no lymphedema noted Resp normal respiratory effort, normal air movement, no retractions, no use of accessory muscles and clear to auscultation bilaterally Auscultation: Negative for rales, rhonchi or wheezes Cardio regular rate, regular rhythm, S1 normal heart sound, S2 normal heart sound, no murmurs, no rub, no gallops and no clicks GI normal to inspection, nondistended, normoactive bowel sounds, soft to palpation, non-tender and non-distended GI Narrative: suprapubic catheter in situ. Extremity normal to inspection, full ROM, normal capillary refill, no clubbing, cyanosis or edema and no calf tenderness Extremity Narrative: Pedal and radial pulses are 2+ General Extremity: no tenderness to palpation of joints or extremities Skin Skin Narrative: General Skin Exam: no breakdown Neuro oriented x3, CN's II-XII intact bilaterally, moves all extremities, no focal motor deficits and no sensory deficits noted Neuro Narrative: flat affect, bradykinesia, looks depressed Sensorium / Orientation: awake and oriented to time Motor Exam: general weakness Psych Mood & Affect: flat affect Weight / BMI Weight Weight: 179 lb 3.773 oz Body Mass Index (BMI) 28.0 ABG / Lab / Microbiology Data 09/07/24 06:46 09/07/24 06:46 Laboratory: Laboratory Results - last 24 hr 09/07/24 06:46: WBC 4.3 L, RBC 5.35, Hgb 14.0, Hct 43.8, MCV 81.9, MCH 26.2 L, MCHC 32.0, RDW Std Deviation 56.3 H, RDW Coeff of Manuela 19.3 H, Plt Count 224, MPV TNP, Immature Gran % (Auto) 0.900, Neut % (Auto) 72.1 H, Lymph % (Auto) 13.6 L, [place] % (Auto) 9.9, Eos % (Auto) 3.0, Baso % (Auto) 0.5, Absolute Neuts (auto) 3.1, Absolute Lymphs (auto) 0.59 L, Nucleated RBC % 0, Sodium 148 H, Potassium 3.4, Chloride 109 H, Carbon Dioxide 24.0, Anion Gap 15, BUN 28 H, Creatinine 1.01, Estim Creat Clear Calc 59.55, Est GFR (MDRD) Non-Af 75, BUN/Creatinine Ratio 27.9 H, Glucose 102 H, Calcium 8.9 Microbiology: Microbiology 08/31/24 16:40 Suprapubic Tap Urine Culture - Final Vancomycin Resist. E. faecium 08/28/24 16:40 Blood Culture (Wb) - Anticubital Left Blood Culture - Final No growth in 5 days. 08/28/24 16:15 Blood Culture (Wb) - Anticubital Left Blood Culture - Final No growth in 5 days. 08/28/24 18:43 Urine, Catheterized Urine Culture - Final Vancomycin Resist. E. faecium D/C Instructions Discharge Diet: Low fat / Low cholesterol Discharge Activity: Return to Normal Activity Weight Bearing Status: Weight bearing as tolerated Call your doctor if you observe: Fever of 101 or Higher, Shortness of breath, Dizziness, Swelling in the ankles and Chest pain DC O2, CPAP, BIPAP Needs Home O2 Discharge instructions: No DC home with Oxygen: No Meaningful Use Info Meaningful Use Meaningful Use Diagnoses (Choose all that apply): None applicable Ischemic Stroke Statin Dosing Therapy Reference: STATIN DOSE THERAPY REFERENCE: * Patients > 75 years receive moderate or high dose statin therapy. * Patients 75 years or YOUNGER should receive HIGH intensity statin dose unless contraindicated. You will be required to document reason for non-treatment if statin daily dose does not meet guidelines. HIGH DOSE STATIN THERAPY DAILY Atorvastatin > than or = to 40 mg Rosuvastatin > than or = to 20 mg Amlodipine + Atorvastatin > than or = to 2.5/40 mg Ezetimibe + Simvastatin 10/80 mg Simvastatin 80mg Discharge Plan Admission Admit Date/Time: 08/29/24 13:39 Primary Reason for Your Visit: Multi drug resistant UTI Attending Provider: Cassi Yang Primary Care Provider: aMsoud Rosa Consulting Providers: Raoul Major; Tom Cervantes; Nila Swenson; Cassi Yang; Rachid Regalado; Raoul Guo; Ramandeep Smyth; Luna Kurtz; Shahida Snyder; Karne Antoine NP; Ruthann Clement Instructions Patient Instructions: ED Urinary Tract Infections in Men Discharge Orders/Prescriptions Prescriptions: Continued carbidopa-levodopa 50-200 mg tablet extended release 1 tablet PO 4X/DAY Rx Instructions: TAKE 1 IN THE MORNING, 1 AT LUNCH, 1 IN THE EVENING, AND 1 AT BEDTIME dorzolamide-timolol 22.3-6.8 mg/mL drops 1 - 2 drp OPHTHALMIC BID duloxetine 60 mg capsule,delayed release(DR/EC) 60 mg PO DAILY Nubeqa 300 mg tablet 600 mg PO DAILY Patient Comments: PT AWARE THEY HAVE TO BRING THIS MED IN. latanoprost 0.005 % drops 1 drp RIGHT EYE QHS memantine 10 mg tablet 10 mg PO BID (DME) Space Chamber Spacer See Rx Instructions .Route Qty: 1 0RF Rx Instructions: As directed prednisolone acetate 1 % drops,suspension 1 drp ophthalmic (eye) Q12H Rx Instructions: USE IN LEFT EYE ascorbic acid (vitamin C) 500 mg Tablet 500 mg PO BIDCM 90 Days Qty: 180 1RF Rx Instructions: for prison uti prevention methenamine hippurate 1 gram Tablet 1 g PO BID 90 Days Qty: 180 1RF Rx Instructions: for prison uti prevention potassium chloride 20 mEq Tablet,Er Particles/Crystals 20 meq PO BIDCM Qty: 60 0RF carbidopa-levodopa 25-100 mg tablet 2 tab PO 4X/DAY Patient Comments: TAKE WITH THE 50/200 TABS pramipexole 1 mg Tablet 1 mg PO 4X/DAY torsemide 20 mg tablet 20 mg PO DAILY tamsulosin 0.4 mg capsule 0.4 mg PO DAILY mecobalamin (vitamin B12) 1,000 mcg tablet,chewable 1,000 mcg PO DAILY acetaminophen 500 mg Tablet 1,000 mg PO Q6H PRN (Reason: Pain 1-10) Lactobacillus acidophilus 25 million cell capsule 50,000,000 cell PO DAILY diltiazem HCl 120 mg capsule,extended release 24 hr See Rx Instructions .ROUTE .COMPLEX Qty: 90 3RF Dose Instruction: take 1 capsule by mouth once daily Rx Instructions: take 1 capsule by mouth once daily Referrals / Follow Up: Masoud Rosa MD [Primary Care Provider] - Within 1 Week Disposition Disposition (needs filled in before D/C Order can be placed): [facility] Facility Charges/Coding Visit Charges Inpatient E&M: 33290 Disch Hosp >30min
--- NOTE | 2024-09-07 12:35 | CASEMGMT ---
Social Work- Physician feels that pt is ready for discharge today.? DCA notified of discharge. Final discharge arrangements and notification to patient/family as per discharge conference planning manager.? Plan: [facility]; intermediate level of care GABBIE Kruger
--- NOTE | 2024-09-07 13:48 | CASEMGMT ---
Social Work- Екатерина, Hospice, arrived to sign pt to hospice. Екатерина reports that it will be a two part admission; first part now and second part when pt is at facility. DCA notified. CARMEN remains available to follow. Plan: [facility],transport at 5:00PM GABBIE Kruger
--- NOTE | 2024-09-07 16:13 | CASEMGMT ---
Discharge Planning [facility]charge [facility] med [facility] by [facility] at 5p. Nursing, SW, pts and his daughter updated. *family signed on with hospice after the above was completed. [facility] advised me to update Claudia the meds will reconciled either tonight or tomorrow. [place] updated. Pts made aware of room rate. SW aware of the above. Pennie Peters DC Planning Asst.
[2024-09-07 18:06] VITALS: BP 132/58; PULSE 92; RESP 15; TEMP 37; O2SAT 98
--- NOTE | 2024-09-07 19:00 | NURSING ---
[facility]
[2024-09-07 20:45] VITALS: BP 147/90; PULSE 85; RESP 18; TEMP 36.4; O2SAT 96
== END 2024-09-07 21:20 | disposition hospice, inpatient (51) | DRG 698 ==
LOC: ED 19:10 → MS3 21:55
PROVIDERS: Family Medicine; Internal Medicine; Internal Medicine Infectious Disease; Physician Assistant; Admitting Provider Internal Medicine; Emergency Provider Surgery; PCP Family Medicine; Visit Provider Student in an Organized Health Care Education/Training Program
DX: T83.518A Infection and inflammatory reaction due to other urinary catheter, initial encounter (principal); G92.8 Other toxic encephalopathy; F02.C11 Dementia in other diseases classified elsewhere, severe, with agitation; E87.0 Hyperosmolality and hypernatremia; F02.C2 Dementia in other diseases classified elsewhere, severe, with psychotic disturbance; I42.9 Cardiomyopathy, unspecified; F02.C3 Dementia in other diseases classified elsewhere, severe, with mood disturbance; Z16.24 Resistance to multiple antibiotics; N39.0 Urinary tract infection, site not specified; N13.8 Other obstructive and reflux uropathy; Z66 Do not resuscitate; I27.29 Other secondary pulmonary hypertension; G20.B1 Parkinson's disease with dyskinesia, without mention of fluctuations; I34.0 Nonrheumatic mitral (valve) insufficiency; I12.9 Hypertensive chronic kidney disease with stage 1 through stage 4 chronic kidney disease, or unspecified chronic kidney disease; F32.A Depression, unspecified; I48.0 Paroxysmal atrial fibrillation; N18.2 Chronic kidney disease, stage 2 (mild); F41.9 Anxiety disorder, unspecified; E87.6 Hypokalemia; J32.0 Chronic maxillary sinusitis; Y73.8 Miscellaneous gastroenterology and urology devices associated with adverse incidents, not elsewhere classified; B96.5 Pseudomonas (aeruginosa) (mallei) (pseudomallei) as the cause of diseases classified elsewhere; B95.2 Enterococcus as the cause of diseases classified elsewhere; R13.10 Dysphagia, unspecified; H70.91 Unspecified mastoiditis, right ear; N40.1 Benign prostatic hyperplasia with lower urinary tract symptoms; R39.15 Urgency of urination; H40.9 Unspecified glaucoma; E66.3 Overweight; Z68.29 Body mass index [BMI] 29.0-29.9, adult; Z85.46 Personal history of malignant neoplasm of prostate; Z92.3 Personal history of irradiation; Z86.718 Personal history of other venous thrombosis and embolism
CPT/HCPCS: 36415; 70450; 74230; 80048; 80053; 80200; 81001; 82962; 83605; 83735; 85025; 85027; 85610; 87040; 87077; 87086; 87088; 87186; 92526; 92610; 92611; 93306; 97116; 97162; 97166; 97530; 97535; 99285; J0878; Q9957; A4216; C8929